=== PATIENT | male | born 1965 | race Caucasian/White ===

== ENCOUNTER 2022-01-25 09:57 | Outpatient (CLI) | payer BC, SELFPAY ==
--- OUTSIDE RECORDS SUMMARY | 2022-01-29 04:09 | XMS_ITS | Encounter Summary ---
:1965 Author Organization [facility] Address [address] [place] [address] Care Team Providers Name Role Phone Norma Solis APRN, C.N.P. Primary Care Provider [phone] Reason for Visit Reason Comments Med Refill Encounter Details Date Type Department Care Team Description 01/21/2022 Refill Department of Family Medicine Caden Solis APRN, Med Refill in [facility] so C.N.P. 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 For: Anxiety To be filled at: [id number] [address] [facility] [place] [address] Called patient [...] MG) BY MOUTH DAILY Pharmacy (include location): [id number] - [place], [place] - [address] [facility] [place] [facility] [address] documented in this encounter Plan of Treatment Upcoming Encounters Date Type Specialty Care Team Description 02/15/2022 Office Visit Orthopedic Surgery Madyson Rosa D.O. [address] [place], [place] [phone] (Wo rk) documented as of this encounter Visit Diagnoses Diagnosis Anxiety documented in this encounter Care Teams Nuclear Physics Professor Relationship Specialty Start Date End Date Norma Solis APRN, C.N.P. PCP - General 09/12/[address] [place] [phone] documented as of this encounter
--- OUTSIDE RECORDS SUMMARY | 2022-01-29 04:09 | XMS_ITS | Encounter Summary ---
:1965 Author Organization [facility] Address [address] [place] [address] Care Team Providers Name Role Phone Norma Kenny APRN C.N.PNikhil Primary Care Provider [phone] Encounter Details Date Type Department Care Team Description 12/05/2021 Clinical Communication Department of Chase Philippe, Medicine in [facility] [place], [place] [address] [place] [phone] Social History Tobacco Use Types Packs/Day Years [...] or relatives? How often do you attend episcopalian or jainism More than 4 time s per year 09/17/2018 services? Do you belong to any clubs or organizations No 09/17/2018 such as episcopalian groups, unions, fraternal or athletic groups, or [...] Date Recorded Male 03/25/2018 1:[address] JUSTICE documented as of this encounter Miscellaneous Notes [...] Surgery Madyson Rosa D.O. [address] [place], [place] [phone] (Wo rk) documented as of this encounter Visit Diagnoses Not on filedocumented in this encounter Care Teams Software Quality Specialist Relationship Specialty Start Date End Date Norma Kenny, STEVEN, C.N.P. PCP - General 09/12/16 [address] [place] [phone] documented as of this encounter
--- OUTSIDE RECORDS SUMMARY | 2022-01-29 04:09 | XMS_ITS | Encounter Summary ---
:1965 Author Organization [facility] Address [address] [place] [address] Care Team Providers Name Role Phone Norma Kenny APRN, C.NNikhilPNikhil Primary Care Provider [phone] Reason for Visit Physical Therapy (Routine) - Authorized Specialty Diagnoses / Procedures Referred By Contact Refer red To Contact Diagnoses Arthroscopy Knee Status [facility] Ongoing treatment [address] [place] [address] Referral ID Status Reason Start Date Expiration Date Visits V isits Requested Authorized [id number] Authorized 11/01/2021 03/30/2022 99 99 Encounter Details Date Type Department Care Team Description 12/18/2021 Clinical Support Department of Physical Ha Shelton M.D. 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 - 12/18/2021 8:30 AM CDT Physical Therapy Outpatient Treatment Note SUBJECTIVE Patient's Name: Saad Murray Referring Provider: Hugo Shelton M.D. Visit Diagnosis: 1. 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 Assessment Clinical [...] Surgery Madyson Rosa, D.ONikhil [address] [place], [place] [phone] (Wo rk) documented as of this encounter Visit Diagnoses Diagnosis Arthroscopy Knee Status Post - Primary documented in this encounter Care Teams Distillation Operator Helper Relationship Specialty Start Date End Date Norma Kenny APRN, C.N.P. PCP - General 09/12/[address] [place] [phone] documented as of this encounter
--- OUTSIDE RECORDS SUMMARY | 2022-01-29 04:09 | XMS_ITS | Encounter Summary ---
:1965 Author Organization [facility] Address [address] [place] [address] Care Team Providers Name Role Phone Norma Kenny APRN, C.NNikhilPNikhil Primary Care Provider [phone] Reason for Visit Physical Therapy (Routine) - Authorized Specialty Diagnoses / Procedures Referred By Contact Refer red To Contact Diagnoses Arthroscopy Knee Status [facility] Ongoing treatment [address] [place] [address] Referral ID Status Reason Start Date Expiration Date Visits V isits Requested Authorized [id number] Authorized 11/01/2021 03/30/2022 99 99 Encounter Details Date Type Department Care Team Description 11/06/2021 Clinical Support Department of Physical Ha Shelton M.D. 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 - 11/06/2021 9:15 AM CDT Physical Therapy Outpatient Treatment Note SUBJECTIVE Patient's Name: Saad Murray Referring Provider: Hugo Shelton M.D. Visit Diagnosis: 1. 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 Assessment Clinical [...] Surgery Madyson Rosa, Jarad.ONikhil [address] [place], [place] [phone] (Wo rk) documented as of this encounter Visit Diagnoses Diagnosis Arthroscopy Knee Status Post - Primary documented in this encounter Additional Health Concerns Assessment Noted Time PHQ-9 Depression Total Score: 4 03/02/2021 10:28 AM CS T documented as of this encounter Care Teams Regulation Supervisor Relationship Specialty Start Date End Date Norma Kenny APRN, C.N.P. PCP - General 09/12/[address] [place] [phone] documented as of this encounter
--- OUTSIDE RECORDS SUMMARY | 2022-01-29 04:09 | XMS_ITS | Encounter Summary ---
:1965 Author Organization [facility] Address [address] [place] [address] Care Team Providers Name Role Phone Norma Kenny APRN, C.NNikhilPNikhil Primary Care Provider [phone] Reason for Visit Physical Therapy (Routine) - Authorized Specialty Diagnoses / Procedures Referred By Contact Refer red To Contact Diagnoses Arthroscopy Knee Status [facility] Ongoing treatment [address] [place] [address] Referral ID Status Reason Start Date Expiration Date Visits V isits Requested Authorized [id number] Authorized 11/01/2021 03/30/2022 99 99 Encounter Details Date Type Department Care Team Description 11/02/2021 Clinical Support Department of Physical Ha Shelton M.D. 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 - 11/02/2021 12:45 PM CDT Physical Therapy Outpatient Treatment Note SUBJECTIVE Patient's Name: Saad Murray Referring Provider: Hugo Shelton M.D. Visit Diagnosis: 1. 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 Assessment Clinical [...] RavinMadyson haq D.ONikhil [address] [place], [place] [phone] (Wo rk) documented as of this encounter Visit Diagnoses Diagnosis Arthroscopy Knee Status Post - Primary documented in this encounter Additional Health Concerns Assessment Noted Time PHQ-9 Depression Total Score: 4 03/02/2021 10:28 AM CS T documented as of this encounter Care Teams Batch And Furnace Operator Relationship Specialty Start Date End Date Norma Kenny APRN, C.N.P. PCP - General 09/12/[address] [place] [phone] documented as of this encounter
--- OUTSIDE RECORDS SUMMARY | 2022-01-29 04:09 | XMS_ITS | Encounter Summary ---
:1965 Author Organization [facility] Address [address] [place] [address] Care Team Providers Name Role Phone Norma Kenny APRN, C.N.P. Primary Care Provider [phone] Encounter Details Date Type Department Care Team Description 10/29/2021 Clinical Communication Department of Bess Randhawa Orthopedic Surgery in D, R.N. 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 - 10/29/2021 9:26 AM CDT FMLA paperwork for the patients daughter, Violeta, filled out and given to the provider to sign. documented in this encounter Plan of Treatment Upcoming Encounters Date Type Specialty Care Team Description 02/15/2022 Office Visit Orthopedic Surgery Madyson Rosa, D.O. [address] [place], [place] [phone] (Wo rk) documented as of this encounter Visit Diagnoses Not on filedocumented in this encounter Additional Health Concerns Assessment Noted Time PHQ-9 Depression Total Score: 4 03/02/2021 10:28 AM CS T documented as of this encounter Care Teams Teachers Assistant Relationship Specialty Start Date End Date Norma Kenny, STEVEN, C.N.P. PCP - General 09/12/[address] [place] [address] documented as of this encounter
--- OUTSIDE RECORDS SUMMARY | 2022-01-29 04:09 | XMS_ITS | Encounter Summary ---
:1965 Author Organization [facility] Address [address] [place] [address] Care Team Providers Name Role Phone Norma Kenny APRN, C.N.P. Primary Care Provider [phone] Reason for Visit Reason Comments Med Refill Encounter Details Date Type Department Care Team Description 11/18/2021 Refill Department of Physical Medicine Melchor Westbrook D.O. Med Refill and Rehabilitation in [place] [address] [place] [address] 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 - 11/23/2021 10:52 AM CDT Meloxicam refill Last refill 10/20/21 Last visit 09/28/21 No follow up scheduled documented in this encounter Plan of Treatment Upcoming Encounters Date Type Specialty Care Team Description 02/15/2022 Office Visit Orthopedic Surgery Madyson Rosa il, D.O. [address] [place], [place] [phone] (Wo rk) documented as of this encounter Visit Diagnoses Not on filedocumented in this encounter Additional Health Concerns Assessment Noted Time PHQ-9 Depression Total Score: 4 03/02/2021 10:28 AM CS T documented as of this encounter Care Teams Event Marketing Coordinator Relationship Specialty Start Date End Date Norma Kenny APRN, C.N.P. PCP - General 09/12/[address] [place] [phone] documented as of this encounter
--- OUTSIDE RECORDS SUMMARY | 2022-01-29 04:09 | XMS_ITS | Encounter Summary ---
:1965 Author Organization [facility] Address [address] [place] [address] Care Team Providers Name Role Phone Norma Kenny APRN, C.N.P. 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 [address] [place] [phone] (Wo rk) documented as of this encounter [...] as of this encounter Care Teams Rn Anesthetist Relationship Specialty Start Date End Date Norma Kenny APRN, C.N.P. PCP - General 09/12/[address] [place] [phone] documented as of this encounter
--- OUTSIDE RECORDS SUMMARY | 2022-01-29 04:09 | XMS_ITS | Encounter Summary ---
:1965 Author Organization [facility] Address [address] [place] [address] Care Team Providers Name Role Phone Norma Kenny APRN, C.N.P. Primary Care Provider [phone] Encounter Details Date Type Department Care Team Description 11/05/2021 Clinical Communication Department of Bess Randhawa Orthopedic Surgery in D, R.N. 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 [address] [place], [place] [phone] (Wo rk) documented as of this encounter Visit Diagnoses Not on filedocumented in this encounter Additional Health Concerns Assessment Noted Time PHQ-9 Depression Total Score: 4 03/02/2021 10:28 AM CS T documented as of this encounter Care Teams Nursery Worker Relationship Specialty Start Date End Date Norma Kenny, STEVEN, C.N.P. PCP - General 09/12/[address] [place] [phone] documented as of this encounter
--- OUTSIDE RECORDS SUMMARY | 2022-01-29 04:09 | XMS_ITS | Encounter Summary ---
:1965 Author Organization [facility] Address [address] [place] [address] Care Team Providers Name Role Phone Norma Kenny APRN, C.NNikhilPNikhil Primary Care Provider [phone] Reason for Visit Physical Therapy (Routine) - Authorized Specialty Diagnoses / Procedures Referred By Contact Refer red To Contact Diagnoses Arthroscopy Knee Status [facility] Ongoing treatment [address] [place] [phone] Referral ID Status Reason Start Date Expiration Date Visits V isits Requested Authorized [id number] Authorized 11/01/2021 03/30/2022 99 99 Encounter Details Date Type Department Care Team Description 11/26/2021 Clinical Support Department of Physical Ha Shelton M.D. [address] [place] [address] Arthroscopy Knee Medicine and Paula Isaacs P, P.TNikhil [address] [place] [phone] Status Post Rehabilitation in [facility] ([place], [place] [address] [place] [phone] Social History Tobacco Use Types Packs/Day Years [...] or relatives? How often do you attend worship or restoration More than 4 time s per year 09/17/2018 services? 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 - 11/26/2021 10:45 AM CDT Physical Therapy Outpatient Treatment Note SUBJECTIVE Patient's Name: Saad Murray Referring Provider: Hugo Shelton M.D. Visit Diagnosis: 1. Arthroscopy Knee Status Post Onset Date: 10/29/21 Payor: [facility] / Plan: [facility] / Product Type: EPO / No [...] was putting out bags on trees for [employer] season and stepped over a large log [...] leg when in stance for knee extension. [employer]: Access Code: [email or web address] Patient reports good HEP compliance. Assessment Clinical [...] Orthopedic Surgery Madyson Rosa, D.ONikhil [address] [place], [place] [phone] (Wo rk) documented as of this encounter Visit Diagnoses Diagnosis Arthroscopy Knee Status Post - Primary documented in this encounter Additional Health Concerns Assessment Noted Time PHQ-9 Depression Total Score: 4 03/02/2021 10:28 AM CHI T documented as of this encounter Care Teams Bariatric Surgeon Relationship Specialty Start Date End Date Norma Kenny, STEVEN, C.N.P. PCP - General 09/12/[address] [place] [phone] documented as of this encounter
--- OUTSIDE RECORDS SUMMARY | 2022-01-29 04:09 | XMS_ITS | Encounter Summary ---
:1965 Author Organization [facility] Address [address] [place] [address] Care Team Providers Name Role Phone Norma Kenny APRN, C.NGregg Primary Care Provider [phone] Reason for Visit Auth/Cert Specialty Diagnoses / Procedures Referred By Contact Refer red To Contact Diagnoses Tear Knee Meniscus Current Subsequent Left Tear Knee Meniscus Current Subsequent Left [S83.207D] Procedures [place] [facility] ARTHROSCOPY KNEE MENISCUS WITH ROOT REPAIR Referral ID Status Reason Start Date Expiration Date Visits Requ ested Visits Authorized [id number] 1 1 Encounter Details Date Type Department Care Team Description 10/29/2021 Surgery [facility] MA[facility] OR Hugo Shelton, ARTHROSCOPY KNEE [address] ID M.D. 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 8-4:00 pm M-F: [phone] [facility]: [phone] [facility]: [phone]: Hours vary: Leave message Physical Therapy: [phone] Billing/Patient Account Services Toll Free: About Your [...] with your health care provider. ?? 2009 [facility] [employer] (MER). All rights reserved. [id number] documented in this encounter Medications at Time [...] Tear Knee Meniscus Current Subsequent Left A chef assistant actively participated and was necessary for [...] 1st 6 weeks. Throughout the case, my perinatal breastfeeding assistant aided with manipulation of the limb, [...] Team Description 02/15/2022 Office Visit [facility] il, D.O. [address] [place] [phone] (Wo rk) documented as of [...] as of this encounter Care Teams Rn Postpartum Relationship Specialty Start Date End Date Norma Kenny, STEVEN, C.N.P. PCP - General 09/12/[address] [place] [address] documented as of this encounter
--- OUTSIDE RECORDS SUMMARY | 2022-01-29 04:09 | XMS_ITS | Encounter Summary ---
:1965 Author Organization [facility] Address [address] [place] [address] Care Team Providers Name Role Phone Norma Kenny APRN, C.N.P. Primary Care Provider [phone] Reason for Referral Physical Therapy (Routine) - Authorized Specialty Diagnoses / Procedures Referred By Contact Refer red To Contact Diagnoses Arthroscopy Knee Status Post Hugo Shelton M.D. [facility] Procedures PT Ongoing treatment [address] [place] [phone] Referral ID Status Reason Start Date Expiration Date Visits V isits Requested Authorized [id number] Authorized 11/01/2021 03/30/2022 99 99 hysical Therapy (Routine) - Pending Review Specialty Diagnoses / Procedures Referred By Contact Refer red To Contact Diagnoses Tear Knee Meniscus Current Subsequent Left Sanaz Mcallister P.A.-C., [facility] Procedures PT Ongoing treatment M.S. [address] [place] [phone] Referral ID Status Reason Start Date Expiration Date Visits V isits Requested Authorized [id number] Pending 10/31/2021 10/31/2022 99 99 Review Reason for Visit Physical Therapy (Routine) - Closed Specialty Diagnoses / Procedures Referred By Contact Refer red To Contact Diagnoses Tear Knee Meniscus Current Subsequent Left Sanaz Mcallister P.A.-C., [facility] Procedures PT Evaluate and treat M.S. [address] [place] [address] Referral ID Status Reason Start Date Expiration Date Visits Requ ested Visits Authorized [id number] Closed 10/29/2021 10/29/2022 1 1 Encounter Details Date Type Department Care Team Description 10/31/2021 Comprehensive Visit Department of Physical Beckm Sanaz donato P.A.-C., M.S. [address] [place] [address] Tear Knee Meniscus Current Subsequent Le ft (Primary Dx); Medicine and Paula Isaacs, P.T. 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 documented as of this encounter Consult Notes [...] s/p meniscal repair Onset Date: 10/29/21 Payor: [employer] [facility] / Plan: [facility] [place] / Product Type: EPO / [...] ROOT REPAIR; Surgeon: Hugo Shelton M.D.; Location: [facility] OR REPAIR OF UMBILICAL HERNIA N/A 04/12/2016 [...] was putting out bags on trees for [employer] seasonand stepped over a large log and [...] Function/Occupational Profile: Prior Mobility/Functional Transfers Level of [place]: Independent Prior Function/Occupational Profile Dominant Hand: Right Lives With: Son Receives Help From: Family ADL Assistance: Independent IADL/Homemaking Assistance: Independent Driving: Independent 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 [address] [place], [place] [phone] (Wo rk) documented as of this encounter Visit Diagnoses Diagnosis Tear Knee Meniscus Current Subsequent Le ft - Primary Arthroscopy Knee Status Post documented in this encounter Additional Health Concerns Assessment Noted Time PHQ-9 Depression Total Score: 4 03/02/2021 10:28 AM CS T documented as of this encounter Care Teams Validation Technician Relationship Specialty Start Date End Date Norma Kenny, STEVEN, C.N.P. PCP - General 09/12/[address] [place] [address] documented as of this encounter
--- OUTSIDE RECORDS SUMMARY | 2022-01-29 04:09 | XMS_ITS | Clinical Summary ---
:1965 Author Organization [facility] Address [address] [place] [address] Care Team Providers Name Role Phone Norma Kenny APRN, C.N.P. Primary Care Provider [phone] Source Comments Patient records contain information from all sites at [facility]. For routine questions regarding patient records, call [phone] during business hours, M-F 8:00 AM - 5:00 PM Central Time. Record requests for emergency care only can be directed to [phone] at any time.[facility] Allergies Active Allergy Reactions Severity Noted Date [...] Added automatically from request for barby chand [id number] Acute Lower Respiratory Infection Due To COVID-19 [...] Added automatically from request for barby chand [id number] Encounters Date Type Specialty Care Team Description 01/21/2022 Refill Family Medicine Norma Kenny, Med Ref ill HELICOPTER OFFICER, C.N.P. 12/18/2021 Clinical Support Physical Medicine Hugo Shelton, Arth roscopy Knee and Rehabilitation M.D. Status Post Paula Isaacs (Primary Dx) P, P.T. 12/07/2021 Office Visit Orthopedic Surgery Ceferino Rosa, Tear Knee D.O. Meniscus Curren t Subsequent Left (Primary Dx) 12/05/2021 Clinical Family Medicine Norma Kenny, Communication HELICOPTER OFFICER, C.N.P. 12/05/2021 Clinical Family Medicine Norma Kenny, Carmeni cation; Communication HELICOPTER OFFICER, C.N.P. medication questions 11/30/2021 Refill Sanaz Mcallister, Med Refill P.A.-C., M.S. 11/26/2021 Nurse Only Urology Norma Kenny, Nurse Iza lerner (Knee HELICOPTER OFFICER, C.N.P. immobilizer Maribel Edwards, and needs to [...] Visit Orthopedic Surgery Chriss Weinberg, Tear Knee M.D. Meniscus Curren t Subsequent Left (Primary Dx) 11/06/2021 Clinical Support Physical Medicine Hugo Shelton, Arth roscopy Knee and Rehabilitation M.D. Status Post Paula Isaacs (Primary Dx) P, P.T. 11/05/2021 Clinical Orthopedic Surgery Bess Randhawa D, R.N. 11/05/2021 Clinical Orthopedic Surgery Bess Randhawa, R.N. 11/02/2021 Clinical Support Physical Medicine Hugo Shelton, Arth roscopy Knee and Rehabilitation M.Dayday Status Post Paula Isaacs (Primary Dx) P, P.T. 10/31/2021 Comprehensive Visit Physical Medicine Sanaz Mcallister, Tear Knee Meniscus Current Subsequent Left (Primary Dx); and Rehabilitation P.A.Milad., M.S. Tear Knee Meniscus Current Subsequent Le ft; Paula Isaacs Arthroscopy Knee Status Post P, P.T. 10/29/2021 Anesthesia Event Andres Light, HELICOPTER OFFICER, E COMMERCE MERCHANT OverRubén lo APRN, E COMMERCE MERCHANT 10/29/2021 Surgery Hugo Shelton, ARTHROSCOPY Flori TAYLOR M.D. MENISCUS WITH ROOT REPAIR 10/29/2021 Ancillary Procedure 10/29/2021 Hospital Encounter Hugo Shelton, Tear Kn ee MShahid Meniscus Curren t Subsequent Left 10/29/2021 Ancillary Procedure 10/29/2021 Clinical Orthopedic Surgery Bess Randhawa D, R.N. 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 [address] [place], [place] [phone] (Wo rk) Health Maintenance [...] this topic Medical Devices Implanted Type Area Congressional Representative Device Shelf Model / Identifier Expiration Serial / Date Lot Implant System, Secondary Fixation With Biocomposite Swivelovk Flori taylor Left: Arthrex [id number] 06/28/2025 [id number] / Implanted: Qty: 1 on 10/29/2021 by Hugo Shelton M.D. at [facility] Implant Knee / [id number] Mesh Or Patch Mesh or Abdomen Patch Description: Mesh from umbilical hernia repair Mar 2016. Procedures Procedure Name Priority Date/Time Associated Comments Diagnosis LDA ANE NON-SURGICAL Routine 10/29/2021 7:41 AM R esults for this AIRWAY CDT procedure are i n the results section. ARTHROSCOPY KNEE 10/29/2021 7:35 AM Tear Knee Meniscus MENISCUS CDT Current Subsequent Left MC ANE NERVE BLOCK WITH Routine 10/29/2021 7:32 AM Results for this ULTRASOUND CDT procedure are i n the results section. IA US GUIDE PLC NDL Routine 10/29/2021 7:32 AM Re sults for this CDT procedure are i n the results section. IA INJ ANES FEM NERVE Routine 10/29/2021 7:32 AM Results for this CDT procedure are i n the results section. ANESTHESIOLOGY IMAGE Routine 10/29/2021 7:25 AM R esults for this EXAM CDT procedure are i n the results section. GENERAL SURGERY IMAGE Routine 10/29/2021 4:25 AM Results for this EXAM CDT procedure are i n the results section. from Last 3 Months Results LDA ANE NON-SURGICAL AIRWAY (10/29/2021 7:41 AM CDT) Narrative Andres Light APRN, CRNA - 03/2021 7:41 AM CDT Andres Light APRN, CRNA ? 10/29/2021 ??7:49 AM Airway Date/Time: 10/29/2021 7:41 AM Performed by: Andres Light APR N, CRNA Authorized by: Andres Light AP RN, E COMMERCE MERCHANT Patient location during procedure: OR / Procedure [...] Airway event: no complications Andres Light APRN, JUNE ANESTHESIA ORDERABLES IA INJ ANES FEM NERVE, IA US GUIDE PLC NDL, MC ANE NERVE BLOCK WITH ULTRASOUND (10/29/2021 7:32 AM CDT) Narrative Andres Light APRN, CRNA - 03/2021 7:32 AM CDT Andres Light APRN, CRNA ? 10/29/2021 ??8:08 AM Regional Block Date/Time: 10/29/2021 7:32 AM Performed by: Andres Light APR N, CRNA Authorized by: Andres Light AP RN, E COMMERCE MERCHANT Location: Pre Op / PACU PROCEDURE DETAILS: [...] sful procedure Other complications: none Andres Light HELICOPTER OFFICER, JUNE PROCEDURE/MINOR SURGIC AL ORDERABLES Non-Radiology Image-Anesthesiology Image [...] Code Phon e Number IIMS IIMS NA General Surgery Image Exam-General Surgery Image [...] Code Phon e Number IIMS IIMS NA from Last 3 Months Insurance Payer Benefit Plan / Subscriber ID Effective Dates Phone Addre ss Type Group BLUE CROSS BCBS PLIAR BLUE [id number] 2019-Prese [phone] [address] [address] EPO [place] [id number] [phone] [address] (Home) [place] [address] Advance Directives For more information, please contact: [phone] Latest Code Status on File Code Status Date Activated Date Inactivated Comments Full Code 10/29/2021 9:36 AM 10/29/2021 1:07 PM Question Answer Comments Full Code: Discussed Code Status History Code Status Date Activated Date Inactivated Comments Full Code 02/05/2021 3:31 PM 02/07/2021 1:42 PM Question Answer Comments Full Code: Discussed Care Teams Computational Biologist Relationship Specialty Start Date End Date Norma Kenny, STEVEN, C.N.P. PCP - General 09/12/[address] [place] [phone]
--- OUTSIDE RECORDS SUMMARY | 2022-01-29 04:09 | XMS_ITS | Encounter Summary ---
:1965 Author Organization [facility] Address [address] [place] [address] Care Team Providers Name Role Phone Norma Kenny APRN, C.N.P. Primary Care Provider [phone] Reason for Visit Reason Comments Nurse Visit Knee immobilizer broke and n eeds to be fitted for a new immobilizer Encounter Details Date Type Department Care Team Description 11/26/2021 Nurse Only Department of Urology Chase Kenny APRN, C.N.P. [address] [place] [address] Nurse Visit (Knee in [place] R, R.N. 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 - 11/26/2021 11:15 AM CDT Received call from Paula Zamudio PT at [facility] asking if we could fit pt [...] when it only last [address] [facility] notified. Pt states the immobilizer feels comfortable and stable. Pt discharged to home. Pt will follow up with Dr. Rosa as scheduled on 12/07/21. documented in this encounter Plan of Treatment Upcoming Encounters Date Type Specialty Care Team Description 02/15/2022 Office Visit Orthopedic Surgery Madyson Rosa D.O. [address] [place], [place] [phone] (Wo rk) documented as of this encounter Visit Diagnoses Not on filedocumented in this encounter Additional Health Concerns Assessment Noted Time PHQ-9 Depression Total Score: 4 03/02/2021 10:28 AM CS T documented as of this encounter Care Teams Parts Washer Relationship Specialty Start Date End Date Norma Kenny APRN, C.N.P. PCP - General 09/12/[address] [place] [phone] documented as of this encounter
--- OUTSIDE RECORDS SUMMARY | 2022-01-29 04:09 | XMS_ITS | Encounter Summary ---
:1965 Author Organization [facility] Address [address] [place] [address] Care Team Providers Name Role Phone Norma Kenny APRN, C.N.P. Primary Care Provider [phone] Encounter Details Date Type Department Care Team Description 11/05/2021 Clinical Communication Department of Bess Randhawa Orthopedic Surgery in D, R.N. 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 - 11/05/2021 11:31 AM CDT [place] paperwork for the patients daughter, Violeta, filled out and signed by the provider. Scanned intochart. Faxed to [facility] at [phone]. Copy emailed to Violeta at . documented in this encounter Plan of Treatment Upcoming Encounters Date Type Specialty Care Team Description 02/15/2022 Office Visit Orthopedic Surgery Madyson Rosa, D.ONikhil [address] [place], [place] [phone] (Wo rk) documented as of this encounter Visit Diagnoses Not on filedocumented in this encounter Additional Health Concerns Assessment Noted Time PHQ-9 Depression Total Score: 4 03/02/2021 10:28 AM CS T documented as of this encounter Care Teams Ball Warper Tender Relationship Specialty Start Date End Date Norma Kenny APRN, C.N.P. PCP - General 09/12/[address] [place] [phone] documented as of this encounter
--- OUTSIDE RECORDS SUMMARY | 2022-01-29 04:09 | XMS_ITS | Encounter Summary ---
:1965 Author Organization [facility] Address [address] [place] [address] Care Team Providers Name Role Phone Norma Kenny APRN, C.N.P. 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 [address] [place], [place] [phone] (Wo rk) documented as of this encounter [...] documented as of this encounter Care Teams Department Director Relationship Specialty Start Date End Date Norma Kenny APRN, C.N.P. PCP - General 09/12/[address] [place] [phone] documented as of this encounter
--- OUTSIDE RECORDS SUMMARY | 2022-01-29 04:09 | XMS_ITS | Encounter Summary ---
:1965 Author Organization [facility] Address [address] [place] [address] Care Team Providers Name Role Phone Norma Kenny APRN C.N.P. Primary Care Provider [phone] Reason for Visit Reason Comments Communication medication questions Encounter Details Date Type Department Care Team Description 12/05/2021 Clinical Communication Department of Norma Kenny Co mmunication; Family Medicine in STEVEN Salas, medicatio n Erik Booth, C.N.P. 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 PCP - General 09/12/[address] [place] [phone] documented as of this encounter
--- OUTSIDE RECORDS SUMMARY | 2022-01-29 04:09 | XMS_ITS | Encounter Summary ---
:1965 Author Organization [facility] Address [address] [place] [address] Care Team Providers Name Role Phone Norma Kenny APRN C.NNikhilPNikhil Primary Care Provider [phone] Reason for Visit Reason Comments Med Refill Encounter Details Date Type Department Care Team Description 11/30/2021 Refill [facility] OR Sanaz Mcallister, KemARandi, Med Refill [address] [place] [address] [facility] [phone] [place], [place] [phone] (Wo rk) Social History [...] or relatives? How often do you attend presybeterian or samaritan More than 4 time s per year 09/17/2018 services? 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 PCP - General 09/12/[address] [place] [address] documented as of this encounter
--- OUTSIDE RECORDS SUMMARY | 2022-01-29 04:09 | XMS_ITS | Encounter Summary ---
:1965 Author Organization [facility] Address [address] [place] [address] Care Team Providers Name Role Phone Norma Kenny APRN, C.N.P. Primary Care Provider [phone] Reason for Visit Reason Comments Post-op Follow-up Encounter Details Date Type Department Care Team Description 12/07/2021 Office Visit Department of Ceferino Rosa, Tear Knee Meniscus Orthopedic Surgery in [place]. 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 [address] [place], [place] [phone] (Wo rk) documented as of this encounter Visit Diagnoses Diagnosis Tear Knee Meniscus Current Subsequent Le ft - Primary documented in this encounter Care Teams Magnetic Resonance Imaging Coordinator Relationship Specialty Start Date End Date Norma Kenny APRN, C.N.P. PCP - General 09/12/[address] [place] [phone] documented as of this encounter
--- OUTSIDE RECORDS SUMMARY | 2022-01-29 04:09 | XMS_ITS | Encounter Summary ---
:1965 Author Organization [facility] Address [address] [place] [address] Care Team Providers Name Role Phone Norma Kenny APRN, C.N.P. Primary Care Provider [phone] Reason for Visit Reason Comments Post-op Knee artgroscopy meniscus wi th root repair Follow-up Knee artgroscopy meniscus wi th root repair Encounter Details Date Type Department Care Team Description 11/12/2021 Office Visit Department of Chriss Weinberg, Tear Knee Meniscus Orthopedic Surgery in M.D. 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 PCP - General 09/12/[address] [place] [phone] documented as of this encounter
--- OUTSIDE RECORDS SUMMARY | 2022-01-29 04:09 | XMS_ITS | Encounter Summary ---
:1965 Author Organization [facility] Address [address] [place] [address] Care Team Providers Name Role Phone Norma Kenny APRN, C.NNikhilPNikhil Primary Care Provider Reason for Visit Physical Therapy (Routine) - Authorized Specialty Diagnoses / Procedures Referred By Contact Refer red To Contact Diagnoses Arthroscopy Knee Status Post Hugo Shelton [facility] Procedures PT Ongoing treatment [address] [place] [address] Referral ID Status Reason Start Date Expiration Date Visits V isits Requested Authorized [id number] Authorized 11/01/2021 03/30/2022 99 99 Encounter Details Date Type Department Care Team Description 11/13/2021 Clinical Support Department of Physical Ha Shelton M.D. 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 - 11/13/2021 10:00 AM CDT Physical Therapy Outpatient Treatment Note SUBJECTIVE Patient's Name: Saad Murray Referring Provider: Hugo Shelton M.D. Visit Diagnosis: 1. 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 Broadersheet: Access Code: [email or web address] Patient reports good HEP compliance. Assessment Clinical [...] Surgery Madyson Rosa, D.ONikhil [address] [place], [place] [phone] (Wo rk) documented as of this encounter Visit Diagnoses Diagnosis Arthroscopy Knee Status Post - Primary documented in this encounter Additional Health Concerns Assessment Noted Time PHQ-9 Depression Total Score: 4 03/02/2021 10:28 AM CS T documented as of this encounter Care Teams Plant Safety Engineer Relationship Specialty Start Date End Date Norma Kenny, STEVEN, C.N.P. PCP - General 09/12/[address] [place] [address] documented as of this encounter
--- OUTSIDE RECORDS SUMMARY | 2022-01-29 04:10 | XMS_ITS | Encounter Summary ---
:1965 Author Organization [facility] Address [address] [place] [address] Care Team Providers Name Role Phone Norma Kenny APRN C.NNikhilPNikhil Primary Care Provider [phone] Reason for Visit Auth/Cert Specialty Diagnoses / Procedures Referred By Contact Refer red To Contact Diagnoses Tear Knee Meniscus Current Subsequent Left Tear Knee Meniscus Current Subsequent Left [S83.207D] Procedures DC [facility]/LAT ARTHROSCOPY KNEE MENISCUS WITH ROOT REPAIR Referral ID Status Reason Start Date Expiration Date Visits Requ ested Visits Authorized [id number] 1 1 Encounter Details Date Type Department Care Team Description 10/29/2021 Anesthesia Event [facility] OR Andres Light APRN, JUNE [address] [place] [address] [place] Rubén Mosley APRN, SEAM STAYER [address] [place] [address] [place] [address] Anesthesia Record Procedure Summary Procedure Name Responsible Anesthesia Start Anesthesia Stop Anesthesiologist Time Time ARTHROSCOPY KNEE Andres Light, 10/29/21 0736 10/29/21 0926 MENISCUS WITH ROOT CUT FILERJUNE Weston REPAIR (Left: Knee) Events Date Time [...] to the receiving staff during [facility] we 1. Identified the patient 2. 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 Pertinent components [...] with patient /legal guardian or through an diplomatic interpreter/translator. The use of blood products not discussed Approval to Proceed: approved for anesthesia documented in this encounter Plan of Treatment Upcoming Encounters Date Type Specialty Care Team Description 02/15/2022 Office Visit Orthopedic Surgery Ol[place], Ne saumya, D.O. [address] [place], [place] [phone] (Wo rk) documented as of this encounter Procedures Procedure Name Priority Date/Time Associated Comments Diagnosis LDA ANE NON-SURGICAL Routine 10/29/2021 7:41 AM R esults for this AIRWAY CDT procedure are i n the results section. MC ANE NERVE BLOCK Routine 10/29/2021 7:32 AM Res ults for this WITH ULTRASOUND CDT procedure ar e in the results section. DC US GUIDE PLC NDL Routine 10/29/2021 7:32 AM Re sults for this CDT procedure are i n the results section. DC INJ ANES FEM Routine 10/29/2021 7:32 AM [...] CRNA Authorized by: Andres Light AP RN, SEAM STAYER Patient location during procedure: OR / Procedure [...] complications Andres Light APRN, CRNA ANESTHESIA ORDERABLES DC INJ ANES FEM NERVE, DC US GUIDE PLC NDL, MC ANE NERVE BLOCK WITH ULTRASOUND (10/29/2021 7:32 AM CDT) Narrative Andres Light APRN, CRNA - 03/2021 7:32 AM CDT Andres Light APRN, CRNA ? 10/29/2021 ??8:08 AM Regional Block Date/Time: 10/29/2021 7:32 AM Performed by: Andres Light APR N, CRNA Authorized by: Andres Light AP RN, SEAM STAYER Location: Pre Op / PACU PROCEDURE DETAILS: [...] procedure Other complications: none Andres Light APRN, SEAM STAYER PROCEDURE/MINOR SURGIC AL ORDERABLES documented in this [...] documented as of this encounter Care Teams Lottery Office Manager Relationship Specialty Start Date End Date Norma Kenny, STEVEN, C.N.P. PCP - General 09/12/[address] [facility] [place] [place] [address] documented as of this encounter
--- OUTSIDE RECORDS SUMMARY | 2022-01-29 04:10 | XMS_ITS | Encounter Summary ---
:1965 Author Organization [facility] Address [address] [place] [address] Care Team Providers Name Role Phone Norma Kenny APRN, C.N.P. Primary Care Provider [phone] Reason for Referral Outpatient (Routine) - Closed Specialty Diagnoses / Referred By Contact Referred To Contact Procedures Melchor Mccabe [facility] D.ONikhil [address] [place] [address] Referral ID Status Reason Start Date Expiration Date Visits Requ ested Visits Authorized [id number] Closed 08/17/2021 08/17/2022 1 1 Reason for Visit Reason Comments Follow-up Outpatient (Routine) - Closed Specialty Diagnoses / Referred By Contact Referred To Contact Procedures Melchor Mccabe [facility] D.ONikhil [address] [place] [phone] Referral ID Status Reason Start Date Expiration Date Visits Requ ested Visits Authorized [id number] Closed 07/13/2021 07/13/2022 1 1 Encounter Details Date Type Department Care Team Description 08/17/2021 Office Visit Department of Physical Melchor Westbrook Pain Knee Left (Primary Dx); Medicine and O, D.O. Tear Knee Meniscus Current Subsequent Le ft; Rehabilitation in [address] Sacroiliac; [place], [place] Gluteal Tendinitis Left Hip; [address] [place] [address] [place] [address] [...] or relatives? How often do you attend nondenominational or mosque More than 4 time s per year 09/17/2018 services? 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 IMAGING: MRI [...] offer some reassurance. I also refilled hismedial batch unloader brace which was not properly positioned, and [...] Surgery Madyson Rosa D.O. [address] [place], [place] [address] (Wo rk) Scheduled Referrals Name Type Priority [...] documented as of this encounter Care Teams Stacker Driver Relationship Specialty Start Date End Date Norma Kenny, STEVEN, C.N.P. PCP - General 09/12/[address] [place] [address] documented as of this encounter
--- OUTSIDE RECORDS SUMMARY | 2022-01-29 04:10 | XMS_ITS | Encounter Summary ---
:1965 Author Organization [facility] Address [address] [place] [address] Care Team Providers Name Role Phone Norma Kenny APRN, C.NNikhilPNikhil Primary Care Provider [phone] Reason for Referral MRI/CAT/PET Scan (Routine) - Closed Specialty Diagnoses / Procedures Referred By Contact Refer red To Contact Radiology Diagnoses Pain Knee Left Effusion Knee Left Melchor West[facility] Region Procedures MR Knee Left without IV Contrast [place] MRI LWR EXT JOINT WO CNTRST [address] [place] [address] Referral ID Status Reason Start Date Expiration Date Visits Requ ested Visits Authorized [id number] Closed 07/13/2021 07/13/2022 1 1 Reason for Visit MRI/CAT/PET Scan (Routine) - Closed Specialty Diagnoses / Procedures Referred By Contact Refer red To Contact Radiology Diagnoses Pain Knee Left Effusion Knee Left Melchor Westbrook [facility] Region Procedures MR Knee Left without IV Contrast [place] MRI LWR EXT JOINT WO CNTRST [address] [place] [address] Referral ID Status Reason Start Date Expiration Date Visits Requ ested Visits Authorized [id number] Closed 07/13/2021 07/13/2022 1 1 Encounter Details Date Type Department Care Team Description 07/26/2021 Hospital Encounter Department of Pietro, Melchor Pain Kn ee Left; Radiology in [place], D.O. 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 PCP - General 09/12/[address] [place] [address] documented as of this encounter
--- OUTSIDE RECORDS SUMMARY | 2022-01-29 04:10 | XMS_ITS | Encounter Summary ---
:1965 Author Organization [facility] Address [address] [place] [address] Care Team Providers Name Role Phone Norma Kenny APRN, C.N.P. Primary Care Provider [phone] Reason for Visit Reason Comments Med Refill Encounter Details Date Type Department Care Team Description 10/05/2021 Refill Department of Family Medicine Davon Eng M.D. 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 [facility] 06/29/21 Office Visit Norma Kenny APRN C.N.PNikhil [facility] 05/01/21 Office Visit Norma Kenny APRN C.N.PNikhil [facility] 04/03/21 Office Visit Norma Kenny APRN, C.N.PNikhil [facility] 03/02/21 Office Visit Norma Kenny APRN, C.N.PNikhil [facility] 01/25/21 Office Visit Efe Boyle D.O. [facility] Showing recent visits within past 365 [...] Orthopedic Surgery Madyson Rosa D.O. [address] [place], [place] [phone] (Wo rk) documented as of this encounter Visit Diagnoses Diagnosis Palpitations documented in this encounter Additional Health Concerns Assessment Noted Time PHQ-9 Depression Total Score: 4 03/02/2021 10:28 AM CS T documented as of this encounter Care Teams Program Host Relationship Specialty Start Date End Date Norma Kenny APRN, C.N.P. PCP - General 09/12/[address] [place] [address] documented as of this encounter
--- OUTSIDE RECORDS SUMMARY | 2022-01-29 04:10 | XMS_ITS | Encounter Summary ---
:1965 Author Organization [facility] Address [address] [place] [address] Care Team Providers Name Role Phone Norma Kenny APRN, C.N.P. Primary Care Provider [phone] Reason for Visit Reason Comments Med Refill Encounter Details Date Type Department Care Team Description 07/21/2021 Refill [facility], Rio Canchola M.D. 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 PCP - General 09/12/[address] [place] [address] documented as of this encounter
--- OUTSIDE RECORDS SUMMARY | 2022-01-29 04:10 | XMS_ITS | Encounter Summary ---
:1965 Author Organization [facility] Address [address] [place] [address] Care Team Providers Name Role Phone Norma Kenny APRN, C.N.P. Primary Care Provider [phone] Reason for Referral Outpatient (Routine) - Closed Specialty Diagnoses / Procedures Referred By Contact Refer red To Contact Diagnoses Pain Knee Left Hugo Shelton M.D. [facility] Region Procedures DX Knee Left 4+ Views [address] [place] [phone] Referral ID Status Reason Start Date Expiration Date Visits Requ ested Visits Authorized [id number] Closed 10/22/2021 10/22/2022 1 1 Reason for Visit Outpatient (Routine) - Closed Specialty Diagnoses / Procedures Referred By Contact Refer red To Contact Diagnoses Pain Knee Left Hugo Shelton M.D. [facility] Region Procedures DX Knee Left 4+ Views [address] [place] [phone] Referral ID Status Reason Start Date Expiration Date Visits Requ ested Visits Authorized [id number] Closed 10/22/2021 10/22/2022 1 1 Encounter Details Date Type Department Care Team Description 10/22/2021 Hospital Encounter Department of Hugo Shelton Pain K nee Left Radiology, [facility], in [place] [phone] [place], [place] [address] [place] [address] [place], [place] [phone] [address] (Work) [phone] Social History Tobacco Use Types Packs/Day Years [...] How often do you attend lutheran or pentecostal More than 4 time s [...] at Date Recorded 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 [address] [place], [place] [phone] (Wo rk) documented as [...] documented as of this encounter Care Teams Home Health Billing Specialist Relationship Specialty Start Date End Date Norma Kenny, STEVEN, C.N.P. PCP - General 09/12/[address] [place] [phone] documented as of this encounter
--- OUTSIDE RECORDS SUMMARY | 2022-01-29 04:10 | XMS_ITS | Encounter Summary ---
:1965 Author Organization [facility] Address [address] [place] [address] Care Team Providers Name Role Phone Norma Kenny APRN C.N.P. Primary Care Provider [phone] Reason for Visit Reason Comments Results Encounter Details Date Type Department Care Team Description 08/01/2021 Clinical Communication Department of Chase Philippe, Results Medicine in [facility] EXHAUST EMISSIONS INSPECTOR C.N.PNikhil [place], [place] [address] [place] [phone] [phone] Social History Tobacco Use Types Packs/Day Years [...] or relatives? How often do you attend pentecostal or temple More than 4 time s per year 09/17/2018 services? 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 Shelton while he is in [place] and contactthe patient to let him know [...] Orthopedic Surgery Madyson Rosa, D.ONikhil [address] [place], [place] [phone] (Wo rk) documented as of this encounter Visit Diagnoses Not on filedocumented in this encounter Additional Health Concerns Assessment Noted Time PHQ-9 Depression Total Score: 4 03/02/2021 10:28 AM CS T documented as of this encounter Care Teams Sign Shop Supervisor Relationship Specialty Start Date End Date Norma Kenny APRN, C.N.P. PCP - General 09/12/[address] [place] [phone] documented as of this encounter
--- OUTSIDE RECORDS SUMMARY | 2022-01-29 04:10 | XMS_ITS | Encounter Summary ---
:1965 Author Organization [facility] Address [address] [place] [address] Care Team Providers Name Role Phone Norma Kenny APRN, C.N.P. Primary Care Provider [phone] Reason for Visit Reason Comments Med Refill Encounter Details Date Type Department Care Team Description 10/22/2021 Refill Department of Family Medicine Caden Kenny APRN, Med Refill in [facility] so C.N.P. 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 [facility] 06/29/21 Office Visit Norma Kenny APRN, C.N.P. [facility] 05/01/21 Office Visit Norma Kenny APRN, C.N.P. [facility] 04/03/21 Office Visit Norma Kenny APRN, C.N.P. [facility] 03/02/21 Office Visit Norma Kenny APRN, C.N.P. [facility] 01/25/21 Office Visit Efe Boyle D.O. [facility] Showing recent visits within past 365 days with a meds authorizing provider and meeting all other requirements Future Appointments Date Type Provider Dept 10/26/21 Appointment Norma Kenny APRN, C.N.P. [facility] Showing future appointments within next 90 days with a meds authorizing provider and meeting all other requirements documented in this encounter Plan of Treatment Upcoming Encounters Date Type Specialty Care Team Description 02/15/2022 Office Visit Orthopedic Surgery Madyson Rosa D.ONikhil [address] [place] [phone] (Wo rk) documented as of this encounter Visit Diagnoses Diagnosis Anxiety documented in this encounter Additional Health Concerns Assessment Noted Time PHQ-9 Depression Total Score: 4 03/02/2021 10:28 AM CS T documented as of this encounter Care Teams Microfilm Operator Relationship Specialty Start Date End Date Norma Kenny APRN, C.N.P. PCP - General 09/12/[address] [place] [phone] documented as of this encounter
--- OUTSIDE RECORDS SUMMARY | 2022-01-29 04:10 | XMS_ITS | Encounter Summary ---
:1965 Author Organization [facility] Address [address] [place] [address] Care Team Providers Name Role Phone Norma Kenny APRN, C.NNikhilPNikhil Primary Care Provider [phone] Reason for Referral MRI/CAT/PET Scan (Routine) - Closed Specialty Diagnoses / Procedures Referred By Contact Refer red To Contact Radiology Diagnoses Pain Knee Left Effusion Knee Left [facility] Westbrook [facility] Procedures MR Knee Left without IV Contrast MT MRI LWR EXT JOINT WO CNTRST [address] [place] [address] Referral ID Status Reason Start Date Expiration Date Visits Requ ested Visits Authorized [id number] Closed 07/13/2021 07/13/2022 1 1 Outpatient (Routine) - Closed Specialty Diagnoses / Referred By Contact Referred To Contact Procedures Physical Medicine and Melchor Westbrook [facility] D.O. [address] [place] [address] Referral ID Status Reason Start Date Expiration Date Visits Requ ested Visits Authorized [id number] Closed 07/13/2021 07/13/2022 1 1 Scheduling Instructions 1 month after SI injection Outpatient (Routine) - Closed Specialty Diagnoses / Procedures Referred By Contact Refer red To Contact Diagnoses Pain Low Back Chronic Melchor Westbrook D.O. [facility] Region Procedures FL Sacroiliac Joint Injection Bilateral MT INJ SI JT W THANG W ARTHROGRPHY [address] [place] [address] Referral ID Status Reason Start Date Expiration Date Visits Requ ested Visits Authorized [id number] Closed 07/13/2021 07/13/2022 1 1 Outpatient (Routine) - Closed Specialty Diagnoses / Procedures Referred By Contact Refer red To Contact Diagnoses Pain Knee Left Effusion Knee Left Melchor Westbrook D.O. [facility] Region Procedures DX Knee Left 4+ Views [address] [place] [address] Referral ID Status Reason Start Date Expiration Date Visits Requ ested Visits Authorized [id number] Closed 07/13/2021 07/13/2022 1 1 Reason for Visit Reason Comments Follow-up Continues to have right hip pain Outpatient (Routine) - Closed Specialty Diagnoses / Referred By Contact Referred To Contact Procedures Physical Medicine and Melchor Westbrook [facility] D.O. [address] [place] [phone] Referral ID Status Reason Start Date Expiration Date Visits Requ ested Visits Authorized [id number] Closed 05/09/2021 05/09/2022 1 1 Encounter Details Date Type Department Care Team Description 07/13/2021 Office Visit Department of Physical Melchor Westbrook Pain Sacroiliac (Primary Dx); Medicine and OJoanna Pain Low Back Chronic; Rehabilitation in [place] [phone] [facility] Pain Knee Left; [place], [place] Effusion Knee Left; [address] [place] [phone] Gluteal Tendinitis Left Hip; [place] [address] Gluteal Tendinitis Right Hip Social History Tobacco [...] How often do you attend alevism or mormonism More than 4 time s [...] Date Recorded 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 [address] [place] [phone] (Wo rk) Scheduled Referrals Name [...] documented as of this encounter Care Teams Bakery Decorator Relationship Specialty Start Date End Date Norma Kenny APRN, C.N.P. PCP - General 09/12/[address] [place] [phone] documented as of this encounter
--- OUTSIDE RECORDS SUMMARY | 2022-01-29 04:10 | XMS_ITS | Encounter Summary ---
:1965 Author Organization [facility] Address [address] [place] [address] Care Team Providers Name Role Phone Norma Kenny APRN, C.N.P. Primary Care Provider [phone] Reason for Visit Reason Comments Knee Pain Left Outpatient (Routine) - Closed Specialty Diagnoses / Referred By Contact Referred To Contact Procedures [facility] [address] [place] [phone] Referral ID Status Reason Start Date Expiration Date Visits Requ ested Visits Authorized [id number] Closed 08/17/2021 08/17/2022 1 1 Encounter Details Date Type Department Care Team Description 09/28/2021 Office Visit Department of Physical Melchor Westbrook Tear Knee Meniscus Current Subsequent Left (Primary Dx); Medicine and O, D.O. 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 MSK: Fish And Wildlife Biologist brace in place, able to fully flex [...] Surgery Madyson Rosa D.O. [address] [place], [place] [phone] (Wo rk) documented as of this encounter Visit Diagnoses Diagnosis Tear Knee Meniscus Current Subsequent Le ft - Primary Hyperlipidemia Pain Knee Left documented in this encounter Additional Health Concerns Assessment Noted Time PHQ-9 Depression Total Score: 4 03/02/2021 10:28 AM CS T documented as of this encounter Care Teams Child Nurse Relationship Specialty Start Date End Date Norma Kenny APRN, C.N.P. PCP - General 09/12/[address] [place] [address] documented as of this encounter
--- OUTSIDE RECORDS SUMMARY | 2022-01-29 04:10 | XMS_ITS | Encounter Summary ---
:1965 Author Organization [facility] Address [address] [place] [address] Care Team Providers Name Role Phone Norma Kenny APRN, C.N.P. Primary Care Provider [phone] Reason for Referral Outpatient (Routine) - Closed Specialty Diagnoses / Procedures Referred By Contact Refer red To Contact Diagnoses Pain Knee Left Hugo Shelton M.D. [facility] Procedures DX Knee Left 4+ Views [address] [place] [address] Referral ID Status Reason Start Date Expiration Date Visits Requ ested Visits Authorized [id number] Closed 10/22/2021 10/22/2022 1 1 hysical Therapy (Routine) - Authorized Specialty Diagnoses / Procedures Referred By Contact Refer red To Contact Diagnoses Tear Knee Meniscus Current Subsequent Left Hugo Shelton M.D. [facility] Procedures PT Evaluate and treat [address] [place] [address] Referral ID Status Reason Start Date Expiration Date Visits V isits Requested Authorized [id number] Authorized 10/22/2021 10/22/2022 12 12 Reason for [...] Pain Knee Left Efraín Norma Josue, [facility] TV PRODUCTION ASSISTANT, C.N.P. [address] [place] [address] Referral ID Status Reason Start Date Expiration Date Visits Requ ested Visits Authorized [id number] Closed 07/17/2021 07/17/2022 1 1 Encounter Details Date Type Department Care Team Description 10/22/2021 Office Visit Department of Hugo Shelton, Tear Knee Me niscus Current Subsequent Left (Primary Dx); Orthopedic Surgery in M.D. 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 documented in this encounter Plan of Treatment Upcoming Encounters Date Type Specialty Care Team Description 02/15/2022 Office Visit Orthopedic Surgery [facility] saumya, D.ONikhil [address] [place] [phone] (Wo rk) documented as of [...] documented as of this encounter Care Teams Chief Science Officer Relationship Specialty Start Date End Date Norma Kenny, STEVEN, C.N.P. PCP - General 09/12/[address] [place] [phone] documented as of this encounter
--- OUTSIDE RECORDS SUMMARY | 2022-01-29 04:10 | XMS_ITS | Encounter Summary ---
:1965 Author Organization [facility] Address [address] [place] [address] Care Team Providers Name Role Phone Norma Kenny APRN C.N.P. Primary Care Provider [phone] Reason for Referral Outpatient (Routine) - Authorized Specialty Diagnoses / Procedures Referred By Contact Refer red To Contact Diagnoses Preoperative Exam Norma Kenny APRN, [facility] Region Procedures ECG 12 Lead C.N.P. [address] [place] [address] Referral ID Status Reason Start Date Expiration Date Visits V isits Requested Authorized [id number] Authorized 10/26/2021 10/26/2022 1 1 Reason for Visit Reason Comments Pre-op Exam Encounter Details Date Type Department Care Team Description 10/26/2021 Office Visit Department of Norma Philippe Preop erative Exam (Primary Dx); Medicine in [facility] STEVEN Salas, C.N.P. 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 Shelton at [facility]. 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 Has no pets. Plans to move into [employer] this year after renovation and sell current [...] Team Description 02/15/2022 Office Visit Orthopedic Surgery RavinyamzinMadyson clayton, DaydayO. [address] [place], [place] [phone] (Wo rk) documented as [...] RNA, V Asymptomatic (10/26/2021 12:09 PM CDT) [facility] Method Time Signature SARS-CoV-2 Swab, 10/26/2021 MKTO [...] pe rformed using the Aptima SARS-CoV-2 assay ([employer] on the [employer] tem under emergency use authorization (EUA) by the U.S. Food and Drug Administ ration. Fact sheets for this EUA assay can be fo und at the following links: For Healthcare Providers: https://www.fd a.gov/media/292425/download For Patients: https://www.BoxTone.gov/media/ 386529/download Specimen Anatomical Collection Method Collection Time Receive d Time (Source) Location / / Volume Laterality Varies 10/26/2021 12:09 10/26/2021 5:10 (Nasopharynx) PM CDT PM CDT Hugo Shelton M.D. LAB MICROBIOLOGY - GENERAL O RDERABLES Performing Organization Address City/State/ZIP Code Phon e Number [facility]- [address] [place] [address] [place] [address] System in [place] [address] [place] [address] (ABNORMAL) Comprehensive Metabolic Panel (10/26/2021 12:09 PM [...] CDT eGFR-Black/Afri >90 >=60 10/26/2021 NPRG can Hong Konger mL/min/BSA 2:37 PM CDT Comment: ----ADDITIONAL INFORMATION---- [...] Organization Address City/State/ZIP Code Phon e Number [facility]- [address] [place] [address] [place] [address] [place] [address] [address] [facility] (ABNORMAL) CBC with Differential, Blood (10/26/2021 12:09 PM CDT) [facility] Method Time Signature Hemoglobin 12.7 (L) 13.2 [...] Organization Address City/State/ZIP Code Phon e Number [facility]- [address] [place], [place] [address] [place] [address] [place] [address] [facility] [address] [place] ECG 12 Lead (10/26/2021 12:01 PM CDT) P athologist Signature Ventricular Rate 101 BPM MUSE ECG/Min IA Interval 170 ms MUSE QRSD Interval 86 ms MUSE QT Interval 344 ms MUSE QTC Interval 446 ms MUSE P [place] 66 degrees MUSE R [place] -1 degrees MUSE T Wave [place] 8 degrees MUSE Specimen Anatomical Collection Method [...] Address City/State/ZIP Code Phon e Number [facility] NA documented in this encounter Visit Diagnoses [...] as of this encounter Care Teams Plant Operator Relationship Specialty Start Date End Date Norma Kenny APRN, C.N.P. PCP - General 09/12/[address] [place] [phone] documented as of this encounter
--- OUTSIDE RECORDS SUMMARY | 2022-01-29 04:10 | XMS_ITS | Encounter Summary ---
:1965 Author Organization [facility] Address [address] [place] [address] Care Team Providers Name Role Phone Norma Kenny APRN, C.N.P. Primary Care Provider [phone] Reason for Referral Outpatient (Routine) - Closed Specialty Diagnoses / Procedures Referred By Contact Refer red To Contact Diagnoses Pain Low Back Chronic Melchor Westbrook D.O. [facility] Region Procedures FL Sacroiliac Joint Injection Bilateral [place] INJ SI JT W THANG W ARTHROGRPHY [address] [place] [address] Referral ID Status Reason Start Date Expiration Date Visits Requ ested Visits Authorized [id number] Closed 07/13/2021 07/13/2022 1 1 Reason for Visit Outpatient (Routine) - Closed Specialty Diagnoses / Procedures Referred By Contact Refer red To Contact Diagnoses Pain Low Back Chronic Melchor Westbrook D.O. [facility] Region Procedures FL Sacroiliac Joint Injection Bilateral [place] INJ SI JT W THANG W ARTHROGRPHY [address] [place] [address] Referral ID Status Reason Start Date Expiration Date Visits Requ ested Visits Authorized [id number] Closed 07/13/2021 07/13/2022 1 1 Encounter Details Date Type Department Care Team Description 07/30/2021 Hospital Encounter Department of Melchor Westbrook D.O. [address] [place] [phone] Pain Low Back Radiology, [place] Karina Griffin D.O. [address] [place] [phone] [facility], in [place], [place] [address] [place] [phone] Social History Tobacco Use Types Packs/Day Years [...] or relatives? How often do you attend scientologist or yazidi More than 4 time s per year 09/17/2018 services? 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 PCP - General 09/12/[address] [place] [phone] documented as of this encounter
--- OUTSIDE RECORDS SUMMARY | 2022-01-29 04:10 | XMS_ITS | Encounter Summary ---
:1965 Author Organization [facility] Address [address] [place] [address] Care Team Providers Name Role Phone Norma Kenny APRN, C.N.P. Primary Care Provider [phone] Reason for Visit Reason Comments Med Refill Encounter Details Date Type Department Care Team Description 09/30/2021 Refill [facility], Hernan Canchola M.D. 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 PCP - General 09/12/[address] [place] [phone] documented as of this encounter
--- OUTSIDE RECORDS SUMMARY | 2022-01-29 04:10 | XMS_ITS | Encounter Summary ---
:1965 Author Organization [facility] Address [address] [place] [address] Care Team Providers Name Role Phone Norma Kenny APRN C.N.PNikhil Primary Care Provider [phone] Encounter Details Date Type Department Care Team Description 07/17/2021 Clinical Communication Department of Chase Philippe, Medicine in [facility] C.N.PR[place], [place] [address] [place] [address] [phone] Social History Tobacco Use Types Packs/Day Years [...] or relatives? How often do you attend jew or cheondoism More than 4 time s per year 09/17/2018 services? 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 - 07/17/2021 4:53 PM CDT Returned call and unable to reach pt. Detailed message left on [employer] reading rad. Report exactlyas written. Asked pt to contact clinic on Friday as she will be in to answer any questions he may have. Telephone Encounter - July Eason - 07/17/2021 2:13 PM CDT The patient would like a call back at [phone] with the results of his x-ray. He says he was speaking with someone about the results, but then was disconnected before he could hear the results. Thank you. documented in this encounter Plan of Treatment Upcoming Encounters Date Type Specialty Care Team Description 02/15/2022 Office Visit Orthopedic Surgery Madyson Rosa, D.ONikhil [address] [place], [place] [phone] (Wo rk) documented as of this encounter Visit Diagnoses Not on filedocumented in this encounter Additional Health Concerns Assessment Noted Time PHQ-9 Depression Total Score: 4 03/02/2021 10:28 AM CS T documented as of this encounter Care Teams Renal Dialysis Rn Relationship Specialty Start Date End Date Norma Kenny, STEVEN, C.N.P. PCP - General 09/12/[address] [place] [phone] documented as of this encounter
--- OUTSIDE RECORDS SUMMARY | 2022-01-29 04:10 | XMS_ITS | Encounter Summary ---
:1965 Author Organization [facility] Address [address] [place] [address] Care Team Providers Name Role Phone Norma Kenny APRN, C.N.P. Primary Care Provider Reason for Visit Reason Comments Med Refill Sertraline Encounter Details Date Type Department Care Team Description 07/21/2021 Refill Department of [facility] Norma Kenny Me d Refill (Sertraline/) Medicine in [facility] STEVEN, C. N.P. 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 PCP - General 09/12/[address] [place] [phone] documented as of this encounter
--- OUTSIDE RECORDS SUMMARY | 2022-01-29 04:10 | XMS_ITS | Encounter Summary ---
:1965 Author Organization [facility] Address [address] [place] [address] Care Team Providers Name Role Phone Norma Kenny APRN, C.NNikhilPNikhil Primary Care Provider [phone] Reason for Referral Physical Therapy (Routine) - Closed Specialty Diagnoses / Procedures Referred By Contact Refer red To Contact Diagnoses Tear Knee Meniscus Current Subsequent Left Sanaz Mcallister P.A.-C., [facility] Procedures PT Evaluate and treat M.S. [address] [place] [address] Referral ID Status Reason Start Date Expiration Date Visits Requ ested Visits Authorized [id number] Closed 10/29/2021 10/29/2022 1 1 Reason for Visit Auth/Cert Specialty Diagnoses / Procedures Referred By Contact Refer red To Contact Diagnoses Tear Knee Meniscus Current Subsequent Left Tear Knee Meniscus Current Subsequent Left [S83.207D] Procedures [place] ARTHSC KNE W [facility] RPR MED/LAT ARTHROSCOPY KNEE MENISCUS WITH ROOT REPAIR Referral ID Status Reason Start Date Expiration Date Visits Requ ested Visits Authorized [id number] 1 1 Encounter Details Date Type Department Care Team Description 10/29/[address] [facility] OR Hugo Shelton, Tear Knee Meniscus [address] M.D. 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: [phone] and ask for Orthopedic Provider University Manager Primary Care Physicians [facility], [place], [facility]: [phone] [facility]: [phone] After Hours [phone] Additional Numbers Triage Nurse Line- [facility] 8-4:00 pm M-F: [phone] [facility]: [phone] Same Day Surgery [facility]: [phone]: Hours vary: Leave message Physical Therapy: [phone] Billing/Patient Account Services Toll Free: About Your [...] with your health care provider. ?? 2009 [facility] [employer] ([employer]). All rights reserved. [id number] documented in this encounter Medications at Time [...] Tear Knee Meniscus Current Subsequent Left A first beater actively participated and was necessary for one [...] 1st 6 weeks. Throughout the case, my assistant accounting manager aided with manipulation of the limb, camera, [...] Visit Orthopedic Surgery Madyson Rosa D.ONikhil [address] [place] [phone] (Wo rk) documented as of [...] Volume Adjustment - Provider: Andres Light APRN, CUSTOMER SUPPORT PROFESSIONAL) 20 mL/hr, intravenous, Continuous, Starting on Fri10/29/21 [...] must be -2 or higher to administer. Temple ssess for nausea or vomiting after at [...] documented as of this encounter Care Teams Reinforced Concrete Inspector Relationship Specialty Start Date End Date Norma Kenny, STEVEN, C.N.P. PCP - General 09/12/[address] [place] [phone] documented as of this encounter
--- OUTSIDE RECORDS SUMMARY | 2022-01-29 04:10 | XMS_ITS | Encounter Summary ---
:1965 Author Organization [facility] Address [address] [place] [address] Care Team Providers Name Role Phone Norma Kenny APRN, C.N.P. Primary Care Provider [phone] Reason for Visit Reason Comments Med Refill Encounter Details Date Type Department Care Team Description 08/23/2021 Refill [facility], Rio Canchola M.D. 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 PCP - General 09/12/[address] [place] [facility] [place] [address] documented as of this encounter
--- OUTSIDE RECORDS SUMMARY | 2022-01-29 04:10 | XMS_ITS | Encounter Summary ---
:1965 Author Organization [facility] Address [address] [place] [address] Care Team Providers Name Role Phone Norma Kenny APRN, C.N.P. Primary Care Provider [phone] Reason for Referral Outpatient (Routine) - Closed Specialty Diagnoses / Procedures Referred By Contact Refer red To Contact Diagnoses Pain Knee Left Effusion Knee Left Melchor Westbrook D.O. [facility] Region Procedures DX Knee Left 4+ Views [address] [place] [phone] Referral ID Status Reason Start Date Expiration Date Visits Requ ested Visits Authorized [id number] Closed 07/13/2021 07/13/2022 1 1 Reason for Visit Outpatient (Routine) - Closed Specialty Diagnoses / Procedures Referred By Contact Refer red To Contact Diagnoses Pain Knee Left Effusion Knee Left Melchor Westbrook D.O. [facility] Region Procedures DX Knee Left 4+ Views [address] [place] [phone] Referral ID Status Reason Start Date Expiration Date Visits Requ ested Visits Authorized [id number] Closed 07/13/2021 07/13/2022 1 1 Encounter Details Date Type Department Care Team Description 07/17/2021 Hospital Encounter Department of Melchor Westbrook Kn ee Left; Radiology, [place] O, D.O. Effusion Knee Left [facility], in [address] [place] [address] [place], [place] [phone] (Work) [phone] Social History Tobacco Use Types Packs/Day Years [...] often do you attend oriental orthodox or yarsani More than 4 time s [...] at Date Recorded Male 03/25/2018 1:01 PM ADMIN DIR documented as of this encounter Medications at [...] Visit Orthopedic Surgery Madyson Rosa, D.O. [address] [place] [phone] (Wo rk) documented as of this [...] documented as of this encounter Care Teams Factory Laborer Relationship Specialty Start Date End Date Norma Kenny, BRICK GRADER, C.N.P. PCP - General 09/12/[address] [place] [phone] documented as of this encounter
--- OUTSIDE RECORDS SUMMARY | 2022-01-29 04:10 | XMS_ITS | Encounter Summary ---
:1965 Author Organization [facility] Address [address] [place] [address] Care Team Providers Name Role Phone Norma Kenny APRN C.N.PNikhil Primary Care Provider [phone] Encounter Details Date Type Department Care Team Description 07/30/2021 Clinical Communication Department of Chase Philippe, Medicine in [facility], [place] [address] [place] [phone] Social History Tobacco Use Types Packs/Day Years [...] How often do you attend hindu or oriental orthodox More than 4 time [...] at Date Recorded Male 03/25/2018 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 Weinberg today. He says he has to go back to [place] for another injection, and wants to wait a couple weeks before returning to see him. I offered to reschedule his appointment for him, but he said he'd rather work with the person who scheduled the appointment the first time, which is you. He can be reached at [phone]. Thank you. documented in this encounter Plan of Treatment Upcoming Encounters Date Type Specialty Care Team Description 02/15/2022 Office Visit Orthopedic Surgery Madyson Rosa, D.ONikhil [address] [place], [place] [phone] (Wo rk) documented as of this encounter Visit Diagnoses Not on filedocumented in this encounter Additional Health Concerns Assessment Noted Time PHQ-9 Depression Total Score: 4 03/02/2021 10:28 AM CS T documented as of this encounter Care Teams Studio Associate Relationship Specialty Start Date End Date Norma Kenny APRN, C.N.P. PCP - General 09/12/[address] [place] [phone] documented as of this encounter
--- OUTSIDE RECORDS SUMMARY | 2022-01-29 04:10 | XMS_ITS | Encounter Summary ---
:1965 Author Organization [facility] Address [address] [place] [address] Care Team Providers Name Role Phone Norma Kenny APRN C.N.P. Primary Care Provider [phone] Reason for Referral Outpatient (Routine) - Authorized Specialty Diagnoses / Procedures Referred By Contact Refer red To Contact Diagnoses Pain Knee Left Hugo Shelton M.D. [facility] Region Procedures lob-vonj-dkwbgkku-elbow arthrocentesis: L knee joint [address] [place] [address] Referral ID Status Reason Start Date Expiration Date Visits V isits Requested Authorized [id number] Authorized 08/06/2021 08/06/2022 1 1 Reason for Visit Reason Comments Pain Meniscus tear Outpatient (Routine) - Closed Specialty Diagnoses / Procedures Referred By Contact Refer red To Contact Orthopedic Surgery Diagnoses Pain Knee Left Norma Kenny [facility] Region STEVEN, C.N.P. 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 - 08/06/2021 1:00 PM CDTAssociated Order(s): uvu-adas-lsgvaahu-elbow arthrocentesis: L knee joint Post-Procedure Diagnose(s): Pain [...] also mention the possibility of fusing an support dba brace to help load more of his [...] I will place a prescription for an support dba brace. He will follow up for either repeat evaluations or to schedule surgery. Total time spent providing patient care was 40 minutes. This includes time spent with the patient and time spent on same day pre/post visit EMR documentation, orders, medications, procedures, and communication with other health occasional caregiver. documented in this encounter Plan of Treatment Upcoming Encounters Date Type Specialty Care Team Description 02/15/2022 Office Visit Orthopedic Surgery Madyson Rosa D.O. [address] [place], [place] [phone] (Wo rk) documented as of this encounter Procedures Procedure Name Priority Date/Time Associated Diagnosis Comme nts [place] ARTHCS ASP/INJ Routine 08/06/2021 3:10 PM Pain Knee Left Re sults for this MJR JT WO US CDT procedure are i n the results section. documented in this encounter Results [place] ARTHCS ASP/INJ MJR JT WO US (08/06/2021 [...] as of this encounter Care Teams Food Processing Scientist Relationship Specialty Start Date End Date Norma Kenny APRN, C.N.P. PCP - General 09/12/[address] [place] [phone] documented as of this encounter
--- OUTSIDE RECORDS SUMMARY | 2022-01-29 04:10 | XMS_ITS | Encounter Summary ---
:1965 Author Organization [facility] Address [address] [place] [address] Care Team Providers Name Role Phone Norma Kenny APRN C.N.P. Primary Care Provider Reason for Referral Outpatient (Routine) - Closed Specialty Diagnoses / Procedures Referred By Contact Refer red To Contact Orthopedic Surgery Diagnoses Pain Knee Left Norma Kenny [facility] STEVEN, C.N.P. [address] [place] [address] Referral ID Status Reason Start Date Expiration Date Visits Requ ested Visits Authorized [id number] Closed 07/17/2021 07/17/2022 1 1 Scheduling Instructions Ortho internal referral panel order, dedrick ging before Consult visit Reason for Visit Reason Comments Knee Pain No change from previous visi t Encounter Details Date Type Department Care Team Description 07/17/2021 Office Visit Department of Family Norma Kenny Pa in Knee Left Medicine in [facility] STEVEN, C.N.P. 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 PCP - General 09/12/[address] [place] [phone] documented as of this encounter
--- OUTSIDE RECORDS SUMMARY | 2022-01-29 04:10 | XMS_ITS | Encounter Summary ---
:1965 Author Organization [facility] Address [address] [place] [address] Care Team Providers Name Role Phone Norma Kenny APRN, C.N.P. Primary Care Provider Encounter Details Date Type Department Care Team Description 08/07/2021 Clinical Communication [facility] [phone] Social History Tobacco Use Types Packs/Day Years [...] How often do you attend christianity or scientologist More than 4 time s [...] at Date Recorded Male 03/25/2018 1:01 PM UROLOGIST MD documented as of this encounter Miscellaneous Notes Telephone Encounter - Yany Albert R.N. - 08/07/2021 11:02 AM CDT Prescription for un boat loader helper knee brace faxed to [facility]. documented in this encounter Plan of Treatment Upcoming Encounters Date Type Specialty Care Team Description 02/15/2022 Office Visit Orthopedic Surgery Madyson Rosa il, D.O. [address] [place], [place] [phone] (Wo rk) documented as of this encounter Visit Diagnoses Not on filedocumented in this encounter Additional Health Concerns Assessment Noted Time PHQ-9 Depression Total Score: 4 03/02/2021 10:28 AM CS T documented as of this encounter Care Teams Medical Assistant Float Relationship Specialty Start Date End Date Norma Kenny, STEVEN, C.N.P. PCP - General 09/12/[address] [place] [address] documented as of this encounter
--- OUTSIDE RECORDS SUMMARY | 2022-01-29 04:11 | XMS_ITS | Encounter Summary ---
:1965 Author Organization [facility] Address [address] [place] [address] Care Team Providers Name Role Phone Norma Kenny APRN C.N.P. Primary Care Provider [phone] Reason for Visit Reason Comments Hypertension Back pain Encounter Details Date Type Department Care Team Description 06/29/2021 Office Visit Department of Family Norma Kenny El evated Liver Enzyme Test (Primary Dx); Medicine in [facility] STEVEN C.N.P. 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 Has no pets. Plans to move into [place] this year after renovation and sell current [...] encounter Miscellaneous Notes Result Encounter Note - oNrma Kenny APRN, C.N.P. - 06/29/2021 4:19 PM [...] Orthopedic Surgery Madyson Rosa, Jarad.ONikhil [address] [place], [place] [phone] (Wo rk) documented as [...] CDT eGFR-Black/Afric >90 >=60 06/29/2021 NPRG an Zimbabwean mL/min/BSA 2:20 PM CDT Comment: ----ADDITIONAL INFORMATION---- [...] Organization Address City/State/ZIP Code Phon e Number [facility]- [address] [place], [place] [address] [place] [address] [place] [address] [facility] [address] [place] documented in this encounter Visit Diagnoses Diagnosis Elevated Liver Enzyme Test - Primary Pain Low Back Chronic documented in this encounter Additional Health Concerns Assessment Noted Time PHQ-9 Depression Total Score: 4 03/02/2021 10:28 AM CS T documented as of this encounter Care Teams Tuck Pointer Relationship Specialty Start Date End Date Norma Kenny APRN, C.N.P. PCP - General 09/12/[address] [place] [phone] documented as of this encounter
--- OUTSIDE RECORDS SUMMARY | 2022-01-29 04:11 | XMS_ITS | Encounter Summary ---
:1965 Author Organization [facility] Address [address] [place] [address] Care Team Providers Name Role Phone Norma Kenny APRN, C.N.P. Primary Care Provider [phone] Encounter Details Date Type Department Care Team Description 04/03/2021 Orders Only Pharmacy Prior Auth RO Norma Kenny, STEVEN C.N.P. 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 PCP - General 09/12/[address] [place] [address] documented as of this encounter
--- OUTSIDE RECORDS SUMMARY | 2022-01-29 04:11 | XMS_ITS | Encounter Summary ---
:1965 Author Organization [facility] Address [address] [place] [address] Care Team Providers Name Role Phone Norma Solis APRN C.N.P. Primary Care Provider [phone] Reason for Visit Reason Comments Rx Prior Authorization PANTOPRAZOLE SODIUM 40 MG - PA QTY DENIED Encounter Details Date Type Department Care Team Description 04/06/2021 Clinical Communication Department of Blaise Solis Family Medicine in Author Ansleyizmya tileighann Booth APRN, C.N.P. 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 - 04/12/2021 7:54 AM EQUALIZING SAW OPERATOR Addended by: NORMA SOLIS on: 04/12/2021 07:54 AM Modules accepted: Orders LIZING SAW OPERATOR Addendum Note - Lorraine Cosby - 04/11/2021 11:54 AM EQUALIZING SAW OPERATOR Addended by: LORRAINE COSBY on: 04/11/2021 11:54 AM Modules accepted: Orders LIZING SAW OPERATOR Telephone Encounter - Lorraine Cosby - 04/11/2021 11:53 AM CST Left pt a detialed message regarding medication change. I have pended the medication for Norma to approve LIZING SAW OPERATOR Telephone Encounter - Norma Solis APRN, C.N.P. - 04/10/2021 8:19 AM EQUALIZING SAW OPERATOR If this is not allowed- we can switch to 20mg BID to see if evening dose helps more with morning nausea. Thanks, TK LIZING SAW OPERATOR Telephone Encounter - Mercedes Jacobo - 04/06/2021 [...] Keyshawn HERMAN. Thank you, The OPPA Team LIZING SAW OPERATOR documented in this encounter Plan of Treatment Upcoming Encounters Date Type Specialty Care Team Description 02/15/2022 Office Visit Orthopedic Surgery Madyson Rosa il, D.O. [address] [place], [place] [phone] (Wo rk) documented as of this encounter Visit Diagnoses Not on filedocumented in this encounter Additional Health Concerns Assessment Noted Time PHQ-9 Depression Total Score: 4 03/02/2021 10:28 AM CS T documented as of this encounter Care Teams Chargeback Analyst Relationship Specialty Start Date End Date Norma Solis, INTERNAL COMBUSTION ENGINE INSPECTOR, C.N.P. PCP - General 09/12/[address] [place] [address] documented as of this encounter
--- OUTSIDE RECORDS SUMMARY | 2022-01-29 04:11 | XMS_ITS | Encounter Summary ---
:1965 Author Organization [facility] Address [address] [place] [address] Care Team Providers Name Role Phone Norma Kenny APRN, C.N.P. Primary Care Provider [phone] Reason for Referral MRI/CAT/PET Scan (Routine) - Closed Specialty Diagnoses / Procedures Referred By Contact Refer red To Contact Radiology Diagnoses Radiculopathy Lumbar Norma Kenny APRN, [facility] Region Procedures MR Lumbar Spine without IV Contrast IN MRI LUMB SPINE WO CNTRST C.N.P. [address] [place] [address] Referral ID Status Reason Start Date Expiration Date Visits Requ ested Visits Authorized [id number] Closed 05/01/2021 05/01/2022 1 1 EPOINT MANAGER Reason for Visit Reason Comments Anxiety Back pain and hip pain Outpatient (Routine) - Closed Specialty Diagnoses / Procedures Referred By Contact Refer red To Contact Family Medicine Diagnoses Anxiety Norma Kenny APRN, [facility] Region C.N.P. [address] [place] [address] Referral ID Status Reason Start Date Expiration Date Visits Requ ested Visits Authorized [id number] Closed 04/03/2021 04/03/2022 1 1 Encounter Details Date Type Department Care Team Description 05/01/2021 Office Visit Department of Family Norma Kenny Liver Enzyme Test (Primary Dx); Medicine in [facility], SLAB INSPECTOR, C.N.P. Anxiety; [place], [place] [address] Radiculopathy Lumbar; [address] [place], [place] Thrombocytopenia (HCC); [place] [address] Hyperlipidemia [phone] Social History Tobacco Use Types Packs/Day Years [...] How often do you attend mormon or temple More than 4 time s [...] at Date Recorded Male 03/25/2018 1:01 PM SHAREPOINT MANAGER documented as of this encounter Last Filed Vital Signs Vital Sign Reading Time Taken Comments Blood Pressure 120/81 05/01/2021 1:47 PM SHAREPOINT MANAGER Pulse 92 05/01/2021 1:47 PM SHAREPOINT MANAGER Temperature 36.5 ??C (97.7 ??F) 05/01/2021 1:47 PM SHAREPOINT MANAGER Respiratory Rate 20 05/01/2021 1:47 PM SHAREPOINT MANAGER Oxygen Saturation 98% 05/01/2021 1:47 PM SHAREPOINT MANAGER Inhaled Oxygen Concentration - - Weight 143 kg (314 lb 14.4 oz) 05/01/2021 1:47 PM SHAREPOINT MANAGER Height - - Body Mass Index 40.41 02/21/2021 12:52 PM SHAREPOINT MANAGER documented in this encounter Progress Notes Norma [...] 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 Has no pets. Plans to move into [employer] this year after renovation and sell [...] All questions answered. Norma Kenny APRN, C.N.P. EPOINT MANAGER documented in this encounter Miscellaneous Notes Result Encounter Note - Norma Kenny APRN, C.N.P. - 05/01/2021 7:21 PM SHAREPOINT MANAGER Please call Twin and let him know- [...] if needed for his stomach. Thanks, TK EPOINT MANAGER documented in this encounter Plan of Treatment Upcoming Encounters Date Type Specialty Care Team Description 02/15/2022 [facility] [address] [place], [place] [phone] (Wo rk) documented as of this encounter Procedures Procedure Name Priority Date/Time Associated Diagnosis Comme nts MORPHOLOGY EVALUATION Routine 05/01/2021 2:20 Res ults for this PM SHAREPOINT MANAGER procedure are i n the results section. LIPID PANEL, S Routine 05/01/2021 2:20 Hyperlipidemia Results for this PM SHAREPOINT MANAGER procedure are i n the results section. CBC WITH Routine 05/01/2021 2:20 Thrombocytopenia (HCC) Re sults for this DIFFERENTIAL, B PM SHAREPOINT MANAGER procedure ar e in the results section. COMPREHENSIVE Routine 05/01/2021 2:20 Elevated Liver Enzyme Re sults for this METABOLIC PANEL, S/P PM SHAREPOINT MANAGER Test procedu re are in the results section. documented in this encounter Results MR Lumbar Spine without IV Contrast (05/04/2021 11:26 AM SHAREPOINT MANAGER) Anatomical Region Laterality Modality Lumbar Spine, Neuroradiology RST LOS, Neuroradiology N/A Magnetic Resonance ARZ LOS, Neuroradiology FLA LOS Specimen (Source) Anatomical Collection Method Collection Time Re ceived Time Location / / Volume Laterality 05/04/2021 11:30 AM SHAREPOINT MANAGER Impressions 05/04/2021 11:33 AM SHAREPOINT MANAGER Degenerative changes of the lumbar spine primarily in the posterior facets at L4-5 and L5-S1 Narrative 05/04/2021 11:33 AM SHAREPOINT MANAGER EXAM: ??MR LUMBAR SPINE WITHOUT IV CONTRAST [...] any spinal intervention or surgery. Procedure Note Romiane Westbrook M.D. - 05/04/2021Forma tting of this [...] MRI PROCEDURES Morphology Evaluation (05/01/2021 2:20 PM SHAREPOINT MANAGER) Analysis Performed At Patho logist Time Signature RBC Morphology Normal 05/01/2021 NPRG 4:26 PM SHAREPOINT MANAGER PLT Morphology Normal 05/01/2021 NPRG 4:26 PM SHAREPOINT MANAGER PLT Estimate Adequate Adequate 05/01/2021 NPRG 4:26 PM SHAREPOINT MANAGER Specimen Anatomical Collection Method Collection Time Receive d Time (Source) Location / / Volume Laterality Blood 05/01/2021 2:20 PM 3:41 SHAREPOINT MANAGER PM SHAREPOINT MANAGER Norma Kenny APRN, C.N.P. LAB BLOOD ADD-ON Performing Organization Address City/State/ZIP Code Phon e Number [facility] [place] [address] [place] [address] [place] [address] [address] [facility] Lipid Panel (05/01/2021 2:20 PM SHAREPOINT MANAGER) P athologist Signature Cholesterol, 172 mg/dL 05/01/2021 NPRG Total 4:09 PM SHAREPOINT MANAGER Comment: ----REFERENCE VALUE---- Desirable: < 200 Borderline high: 200 - 239 High: > or = 240 Triglycerides 133 mg/dL 05/01/2021 4:09 PM SHAREPOINT MANAGER NPR G Comment: ----REFERENCE VALUE---- Normal: <150 Borderline high: 150-199 High: 200-499 Very high: > or =500 Cholesterol, HDL 50 >=40 mg/dL 05/01/2021 4:09 PM SHAREPOINT MANAGER NPRG Calculated LDL 95 mg/dL 05/01/2021 4:09 PM SHAREPOINT MANAGER MEDIA SPECIALIST RG Comment: ----REFERENCE VALUE---- Desirable: <100 mg/dL Above Desirable: 100-129 mg/dL Borderline High: 130-159 mg/dL High: 160-189 mg/dL Very High: >=190 mg/dL Cholesterol, Non-HDL, Calculated 122 mg/dL 022 4:09 PM SHAREPOINT MANAGER NPRG Comment: ----REFERENCE VALUE---- Desirable: <130 Above Desirable: 130-159 Borderline high: 160-189 High: 190-219 Very high: > or =220 Specimen Anatomical Collection Method Collection Time Receive d Time (Source) Location / / Volume Laterality Blood (Blood, 05/01/2021 2:20 PM 05/01/19 3:41 Venous) SHAREPOINT MANAGER PM SHAREPOINT MANAGER Viridiana Adams APRNNGregg LAB BLOOD ADD-ON Performing Organization Address City/State/ZIP Code Phon e Number [facility]- [address] [place], [place] [address] [place] [address] [facility] [address] (ABNORMAL) Comprehensive Metabolic Panel (05/01/2021 2:20 PM SHAREPOINT MANAGER) P athologist Signature Potassium, P 4.4 3.6 - 5.2 05/01/2021 NPRG mmol/L 4:08 PM SHAREPOINT MANAGER Sodium, P 138 135 - 145 05/01/2021 NPRG mmol/L 4:08 PM SHAREPOINT MANAGER Chloride, P 102 98 - 107 05/01/2021 NPRG mmol/L 4:08 PM SHAREPOINT MANAGER Bicarbonate, P 27 22 - 29 05/01/2021 NPRG mmol/L 4:09 PM SHAREPOINT MANAGER Anion Gap, P 9 7 - 15 05/01/2021 NPRG 4:08 PM SHAREPOINT MANAGER BUN (Blood Urea 20 8 - 24 05/01/2021 NPRG Nitrogen), P mg/dL 4:09 PM SHAREPOINT MANAGER Creatinine 0.82 0.74 - 05/01/2021 NPRG 1.35 mg/dL 4:09 PM SHAREPOINT MANAGER eGFR-Black/Afric >90 >=60 05/01/2021 NPRG an Uzbek mL/min/BSA 4:09 PM SHAREPOINT MANAGER Comment: ----ADDITIONAL INFORMATION---- Estimated GFR calculated using the 2009 CKD_EPI creatinine equation. eGFR Non-Black/ >90 >=60 mL/min/BSA 05/01/2021 4:09 PM SHAREPOINT MANAGER NPRG Comment: ----ADDITIONAL INFORMATION---- Estimated GFR calculated using the 2009 CKD_EPI creatinine equation. Calcium, Total, P 10.2 (H) 8.6 - 10.0 mg/dL 05/01/2021 4:09 PM SHAREPOINT MANAGER NPRG Glucose, P 114 70 - 140 mg/dL 05/01/2021 4:09 PM SHAREPOINT MANAGER N PRG Protein, Total, P 7.6 6.3 - 7.9 g/dL 05/01/2021 4:09 P M SHAREPOINT MANAGER NPRG Albumin, P 4.2 3.5 - 5.0 g/dL 05/01/2021 4:09 PM SHAREPOINT MANAGER N PRG Aspartate Aminotransferase 66 (H) 8 - 48 U/L 05/01/2021 4 :09 PM SHAREPOINT MANAGER NPRG (AST), P Alkaline Phosphatase, P 96 40 - 129 U/L 05/01/2021 4: 09 PM SHAREPOINT MANAGER NPRG Alanine Aminotransferase 100 (H) 7 - 55 U/L 05/01/2021 4:0 9 PM SHAREPOINT MANAGER NPRG (ALT), P Bilirubin, Total, P 0.4 <=1.2 mg/dL 05/01/2021 4:09 PM SHAREPOINT MANAGER NPRG Specimen Anatomical Collection Method Collection Time Receive d Time (Source) Location / / Volume Laterality Blood (Blood, 05/01/2021 2:20 PM 05/01/19 3:41 Venous) SHAREPOINT MANAGER PM SHAREPOINT MANAGER Norma Kenny APRN, C.N.P. LAB BLOOD ADD-ON Performing Organization Address City/State/ZIP Code Phon e Number [facility]- [address] [place] [address] [place] [address] [place] [address] [address] [facility] (ABNORMAL) CBC with Differential, Blood (05/01/2021 2:20 PM SHAREPOINT MANAGER) [facility] gist Method Time Signature Hemoglobin 13.9 13.2 - 05/01/2021 NPRG 16.6 g/dL 4:26 PM SHAREPOINT MANAGER Hematocrit 41.2 38.3 - 05/01/2021 NPRG 48.6 % 4:26 PM SHAREPOINT MANAGER Erythrocytes 4.15 (L) 4.35 - 05/01/2021 NPRG 5.65 4:26 PM SHAREPOINT MANAGER x10(12)/L MCV 99.3 (H) 78.2 - 05/01/2021 NPRG 97.9 fL 4:26 PM SHAREPOINT MANAGER RBC Distrib Width 12.7 11.8 - 05/01/2021 NPRG 14.5 % 4:26 PM SHAREPOINT MANAGER Platelet Count 379 (H) 135 - 317 05/01/2021 NPRG x10(9)/L 4:26 PM SHAREPOINT MANAGER Leukocytes 9.0 3.4 - 9.6 05/01/2021 NPRG x10(9)/L 4:26 PM SHAREPOINT MANAGER Neutrophils 6.43 1.56 - 05/01/2021 NPRG 6.45 4:26 PM SHAREPOINT MANAGER x10(9)/L Lymphocytes 1.74 0.95 - 05/01/2021 NPRG 3.07 4:26 PM SHAREPOINT MANAGER x10(9)/L Monocytes 0.66 0.26 - 05/01/2021 NPRG 0.81 4:26 PM SHAREPOINT MANAGER x10(9)/L Eosinophils 0.10 0.03 - 05/01/2021 NPRG 0.48 4:26 PM SHAREPOINT MANAGER x10(9)/L Basophils 0.03 0.01 - 05/01/2021 NPRG 0.08 4:26 PM SHAREPOINT MANAGER x10(9)/L Specimen Anatomical Collection Method Collection Time Receive d Time (Source) Location / / Volume Laterality Blood (Blood, 05/01/2021 2:20 PM 05/01/19 22 3:41 Venous) SHAREPOINT MANAGER PM SHAREPOINT MANAGER Norma Kenny APRN, C.N.P. LAB BLOOD ADD-ON Performing Organization Address City/State/ZIP Code Phon e Number [facility]- [address] [place], [place] [address] [place] [address] [facility] [address] documented in this encounter Visit Diagnoses Diagnosis Elevated Liver Enzyme Test - Primary Anxiety Radiculopathy Lumbar Thrombocytopenia (HCC) Hyperlipidemia Radiculopathy Lumbar documented in this encounter Additional Health Concerns Assessment Noted Time PHQ-9 Depression Total Score: 4 03/02/2021 10:28 AM CS T documented as of this encounter Care Teams Hvac Estimator Relationship Specialty Start Date End Date Norma Kenny APRN, C.N.P. PCP - General 09/12/[address] [place] [address] documented as of this encounter
--- OUTSIDE RECORDS SUMMARY | 2022-01-29 04:11 | XMS_ITS | Encounter Summary ---
:1965 Author Organization [facility] Address [address] [place] [address] Care Team Providers Name Role Phone Norma Kenny APRN C.N.P. Primary Care Provider [phone] Reason for Visit Reason Comments Med Refill Steroid Encounter Details Date Type Department Care Team Description 05/08/2021 Clinical Communication Department of Norma Kenny d Refill Family Medicine in STEVEN Salas, (Steroid) [place], C.N.P. [place] [address] [place] [phone] Social History Tobacco Use Types Packs/Day Years [...] How often do you attend druze or tenriism More than 4 time s [...] at Date Recorded Male 03/25/2018 1:01 PM ERP MANAGER documented as of this encounter Miscellaneous Notes Telephone Encounter - Lavinia Mike R.N. - 05/08/2021 9:33 AM ERP MANAGER Patient saw Norma Kenny 05/01/21 and was [...] her for follow up if n eeded. MANAGER Telephone Encounter - July Eason - 05/08/2021 8:38 AM CST The patient wants to know if he can get a refill of the steroid pack Norma Kenny prescribed for him for his arthritis pain in his back. He can be reached at [phone]. Thank you. MANAGER documented in this encounter Plan of Treatment Upcoming Encounters Date Type Specialty Care Team Description 02/15/2022 Office Visit Orthopedic Surgery Madyson Rosa D.O. [address] [place], [place] [phone] (Wo rk) documented as of this encounter Visit Diagnoses Not on filedocumented in this encounter Additional Health Concerns Assessment Noted Time PHQ-9 Depression Total Score: 4 03/02/2021 10:28 AM CS T documented as of this encounter Care Teams Lei Maker Relationship Specialty Start Date End Date Norma Kenny APRN, C.N.P. PCP - General 09/12/[address] [facility] [place] [phone] documented as of this encounter
--- OUTSIDE RECORDS SUMMARY | 2022-01-29 04:11 | XMS_ITS | Encounter Summary ---
:1965 Author Organization [facility] Address [address] [place] [address] Care Team Providers Name Role Phone Norma Kenny APRN, C.N.P. Primary Care Provider [phone] Reason for Visit Reason Comments Med Refill Encounter Details Date Type Department Care Team Description 06/17/2021 Refill [facility], [place] M.D. 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 PCP - General 09/12/[address] [facility] [address] documented as of this encounter
--- OUTSIDE RECORDS SUMMARY | 2022-01-29 04:11 | XMS_ITS | Encounter Summary ---
:1965 Author Organization [facility] Address [address] [place] [address] Care Team Providers Name Role Phone Norma Kenny APRN, C.N.P. Primary Care Provider [phone] Reason for Visit Reason Comments Med Refill Medication Question Encounter Details Date Type Department Care Team Description 04/03/2021 Refill Department of [facility] Norma Kenny Me d Refill; Medication Medicine in [place], [place]EVEN, C. N.P. 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 - 04/10/2021 2:59 PM LABOR CREW SUPERVISOR Yes I spoke with pharmacy. Kevin I did not complete the note. R CREW SUPERVISOR Telephone Encounter - Norma Kenny APRN C.N.P. - 04/10/2021 8:20 AM LABOR CREW SUPERVISOR Yes 150mg daily. Thanks, TK R CREW SUPERVISOR Telephone Encounter - Jeannette Bernardo L.P.N. - 04/06/2021 4:21 PM LABOR CREW SUPERVISOR Text sent to TK today to address issue with prescription as she is out of clinic this week. R CREW SUPERVISOR Addendum Note - Julia Mike R.N. - 04/06/2021 1:06 PM LABOR CREW SUPERVISOR Addended by: JULIA MIKE on: 04/06/2021 01:06 PM Modules accepted: Orders R CREW SUPERVISOR Telephone Encounter - Julia Mike R.N. - 04/06/2021 1:04 PM LABOR CREW SUPERVISOR Norma - There are two conflicting directions on the sig. Can you please provide clarification on thesertraline instructions? Is it to be 1.5 tab (150 mg daily)? R CREW SUPERVISOR Telephone Encounter - Tiarramartha Leanne Ruby - 04/06/2021 12:27 PM CST Britney from [facility], still waiting to hear back from Norma Mcguire Regarding Sertraline, and clarification on the directions. Please give Christina calderón a call. Thank you. R CREW SUPERVISOR Telephone Encounter - Mirlande Milian L.P.N. - 04/03/2021 3:43 PM CST Patient seen in clinic today. R CREW SUPERVISOR documented in this encounter Plan of Treatment Upcoming Encounters Date Type Specialty Care Team Description 02/15/2022 Office Visit Orthopedic Surgery RavinnmMadyson haq il, D.O. [address] [place], [place] [phone] (Wo rk) documented as of this encounter Visit Diagnoses Diagnosis Nausea Anxiety documented in this encounter Additional Health Concerns Assessment Noted Time PHQ-9 Depression Total Score: 4 03/02/2021 10:28 AM CS T documented as of this encounter Care Teams Manager Relocation Relationship Specialty Start Date End Date Norma Kenny, STEVEN, C.N.P. PCP - General 09/12/[address] [place] [address] documented as of this encounter
--- OUTSIDE RECORDS SUMMARY | 2022-01-29 04:11 | XMS_ITS | Encounter Summary ---
:1965 Author Organization [facility] Address [address] [place] [address] Care Team Providers Name Role Phone Norma Kenny APRN, C.N.P. Primary Care Provider [phone] Reason for Referral Appointment Request (Routine) - Closed Specialty Diagnoses / Procedures Referred By Contact Refer red To Contact Diagnoses Fatigue Norma Kenny APRN, Procedures CBC without Differential C.N.P. [address] [place] [address] Referral ID Status Reason Start Date Expiration Date Visits Requ ested Visits Authorized [id number] Closed 04/05/2021 04/05/2022 1 1 CULTURAL EDUCATION TEACHER Specialty Diagnoses / Procedures Referred By Contact Refer red To Contact Norma Kenny AP RN, C.N.P. [facility] [address] [place] [address] Referral ID Status Reason Start Date Expiration Date Visits Requ ested Visits Authorized CULTURAL EDUCATION TEACHER Outpatient (Routine) - Closed Specialty Diagnoses / Procedures Referred By Contact Refer red To Contact Family Medicine Diagnoses Anxiety Norma Kenny APRN, [facility] C.N.P. [address] [place] [address] Referral ID Status Reason Start Date Expiration Date Visits Requ ested Visits Authorized [id number] Closed 04/03/2021 04/03/2022 1 1 CULTURAL EDUCATION TEACHER Reason for Visit Reason Comments Follow-up Outpatient (Routine) - Closed Specialty Diagnoses / Procedures Referred By Contact Refer red To Contact Family Medicine Norma Kenny APRN, [facility] C.N.P. [address] [place] [address] Referral ID Status Reason Start Date Expiration Date Visits Requ ested Visits Authorized [id number] Closed 03/02/2021 03/02/2022 1 1 Encounter Details Date Type Department Care Team Description 04/03/2021 Office Visit Department of Norma Philippe (Primary Dx); Medicine in [facility] STEVEN, C.N.P. Morbid Obesity Body Mass Index 40.0-44.9 Adult ([facility]); [place], [place] [address] [place] Anxiety; [address] [place], [place] Gastroesophageal Reflux Dise ase; [place] [address] Encounter For COVID-19 Vaccine Immunizat [place]; [id number] Fatigue Social History Tobacco Use Types Packs/Day [...] How often do you attend evangelical or orthodoxy More than 4 time s [...] at Date Recorded Male 03/25/2018 1:01 PM AGRICULTURAL EDUCATION TEACHER documented as of this encounter Last Filed Vital Signs Vital Sign Reading Time Taken Comments Blood Pressure 128/87 04/03/2021 10:34 AM AGRICULTURAL EDUCATION TEACHER Pulse 105 04/03/2021 10:34 AM AGRICULTURAL EDUCATION TEACHER Temperature 36.7 ??C (98.1 ??F) 04/03/2021 10:34 AM AGRICULTURAL EDUCATION TEACHER Respiratory Rate 20 04/03/2021 10:34 AM AGRICULTURAL EDUCATION TEACHER Oxygen Saturation 95% 04/03/2021 10:34 AM AGRICULTURAL EDUCATION TEACHER Inhaled Oxygen Concentration - - Weight 142 kg (313 lb 3.2 oz) 04/03/2021 10:34 AM AGRICULTURAL EDUCATION TEACHER Height - - Body Mass Index 40.2 02/21/2021 12:52 PM AGRICULTURAL EDUCATION TEACHER documented in this encounter Progress Notes Norma [...] or better yet, a [facility]. He will think about this and [...] for 3-4 weeks. Norma Kenny APRN, C.N.P. CULTURAL EDUCATION TEACHER documented in this encounter Plan of Treatment Upcoming Encounters Date Type Specialty Care Team Description 02/15/2022 Office Visit Orthopedic Surgery RavinflMadyson haq, D.ONikhil [address] [place] [phone] (Wo rk) Scheduled Referrals Name Type Priority Associated Diagnoses Order S chedule Family Medicine Outpatient Referral Routine Anxiety Expec tim: office visit (clinic) 2021 (Approximate), Expires: 07/02/2022 Covid immunization Outpatient Referral Routine Encounter For E xpected: office visit COVID-19 Vaccine 04/24/2021, Subsequent; Pfizer Immunization Expires: 07/02/2022 documented as of this encounter Results S-TSH (Thyroid-Stimulating Hormone - Sensitive) (04/17/2021 10:06 AM AGRICULTURAL EDUCATION TEACHER) P athologist Signature TSH, Sensitive 1.5 0.3 - 4.2 04/17/2021 NPRG mIU/L 12:20 PM AGRICULTURAL EDUCATION TEACHER Specimen Anatomical Collection Method Collection Time Receive d Time (Source) Location / / Volume Laterality Blood (Blood, 04/17/2021 10:06 04/17/2021 Venous) AM AGRICULTURAL EDUCATION TEACHER 11:36 AM AGRICULTURAL EDUCATION TEACHER Norma Kenny APRN, Caridad.N.P. LAB BLOOD ADD-ON Performing Organization Address City/State/ZIP [facility] Phon e Number [address] [address] [facility] NPRG [place] [id number] [address] Hemoglobin A1c (04/17/2021 10:06 AM AGRICULTURAL EDUCATION TEACHER) athologist Signature Hemoglobin A1c, 5.4 4.2 - 5.6 04/17/2021 NPRG B % 12:29 PM AGRICULTURAL EDUCATION TEACHER Specimen Anatomical Collection Method Collection Time Receive d Time (Source) Location / / Volume Laterality Blood (Blood, 04/17/2021 10:06 04/17/2021 Venous) AM AGRICULTURAL EDUCATION TEACHER 11:36 AM AGRICULTURAL EDUCATION TEACHER Norma Kenny APRN, C.N.P. LAB BLOOD ADD-ON Performing Organization Address City/[facility] Code Phon e Number [address] [address] [facility] [place] [phone] [address] (ABNORMAL) Comprehensive Metabolic Panel (04/17/2021 10:06 AM AGRICULTURAL EDUCATION TEACHER) athologist Signature Potassium, P 3.8 3.6 - 5.2 04/17/2021 NPRG mmol/L 12:25 PM AGRICULTURAL EDUCATION TEACHER Sodium, P 135 135 - 145 04/17/2021 NPRG mmol/L 12:25 PM AGRICULTURAL EDUCATION TEACHER Chloride, P 93 (L) 98 - 107 04/17/2021 NPRG mmol/L 12:25 PM AGRICULTURAL EDUCATION TEACHER Bicarbonate, P 27 22 - 29 04/17/2021 NPRG mmol/L 12:25 PM AGRICULTURAL EDUCATION TEACHER Anion Gap, P 15 7 - 15 04/17/2021 NPRG 12:25 PM AGRICULTURAL EDUCATION TEACHER BUN (Blood Urea 14 8 - 24 04/17/2021 NPRG Nitrogen), P mg/dL 12:25 PM AGRICULTURAL EDUCATION TEACHER Creatinine 0.78 0.74 - 04/17/2021 NPRG 1.35 mg/dL 12:25 PM AGRICULTURAL EDUCATION TEACHER eGFR-Black/Afri >90 >=60 04/17/2021 NPRG can [place] mL/min/BSA 12:25 PM AGRICULTURAL EDUCATION TEACHER Comment: ----ADDITIONAL INFORMATION---- Estimated GFR calculated using the 2009 CKD_EPI creatinine equation. eGFR Non-Black/ >90 >=60 mL/min/BSA 04/17/2021 12:25 PM AGRICULTURAL EDUCATION TEACHER NPRG Comment: ----ADDITIONAL INFORMATION---- Estimated GFR calculated using the 2009 CKD_EPI creatinine equation. Calcium, Total, P 8.9 8.6 - 10.0 mg/dL 04/17/2021 12:2 5 PM NPRG AGRICULTURAL EDUCATION TEACHER Glucose, P 121 70 - 140 mg/dL 04/17/2021 12:25 PM NPRG AGRICULTURAL EDUCATION TEACHER Protein, Total, P 7.6 6.3 - 7.9 g/dL 04/17/2021 12:25 PM NPRG AGRICULTURAL EDUCATION TEACHER Albumin, P 4.3 3.5 - 5.0 g/dL 04/17/2021 12:25 PM NPRG AGRICULTURAL EDUCATION TEACHER Aspartate Aminotransferase 265 (H) 8 - 48 U/L 04/17/2021 1 2:25 PM NPRG (AST), P AGRICULTURAL EDUCATION TEACHER Alkaline Phosphatase, P 97 40 - 129 U/L 04/17/2021 12 :25 PM NPRG AGRICULTURAL EDUCATION TEACHER Alanine Aminotransferase 150 (H) 7 - 55 U/L 04/17/2021 12: 25 PM NPRG (ALT), P AGRICULTURAL EDUCATION TEACHER Bilirubin, Total, P 1.6 (H) <=1.2 mg/dL 04/17/2021 12:25 P M NPRG AGRICULTURAL EDUCATION TEACHER Specimen Anatomical Collection Method Collection Time Receive d Time (Source) Location / / Volume Laterality Blood (Blood, 04/17/2021 10:06 04/17/2021 Venous) AM AGRICULTURAL EDUCATION TEACHER 11:36 AM AGRICULTURAL EDUCATION TEACHER Viridiana Adams APRNNNikhilP. LAB BLOOD ADD-ON Performing Organization Address City/State/ZIP Code Phon e Number [facility] [address] [place], [place] [address] [facility] [address] (ABNORMAL) CBC without Differential (04/17/2021 10:06 AM AGRICULTURAL EDUCATION TEACHER) [facility] gist Method Time Signature Hemoglobin 14.0 13.2 - 04/17/2021 NPRG 16.6 g/dL 1:41 PM AGRICULTURAL EDUCATION TEACHER Hematocrit 40.5 38.3 - 04/17/2021 NPRG 48.6 % 1:41 PM AGRICULTURAL EDUCATION TEACHER Erythrocytes 4.08 (L) 4.35 - 04/17/2021 NPRG 5.65 1:41 PM AGRICULTURAL EDUCATION TEACHER x10(12)/L MCV 99.3 (H) 78.2 - 04/17/2021 NPRG 97.9 fL 1:41 PM AGRICULTURAL EDUCATION TEACHER RBC Distrib Width 12.6 11.8 - 04/17/2021 NPRG 14.5 % 1:41 PM AGRICULTURAL EDUCATION TEACHER Platelet Count 81 (L) 135 - 317 04/17/2021 NPRG x10(9)/L 1:41 PM AGRICULTURAL EDUCATION TEACHER Leukocytes 5.2 3.4 - 9.6 04/17/2021 NPRG x10(9)/L 1:41 PM AGRICULTURAL EDUCATION TEACHER Specimen Anatomical Collection Method Collection Time Receive d Time (Source) Location / / Volume Laterality Blood (Blood, 04/17/2021 10:06 04/17/2021 Venous) AM AGRICULTURAL EDUCATION TEACHER 11:36 AM AGRICULTURAL EDUCATION TEACHER Norma Kenny APRN, C.N.P. LAB BLOOD ADD-ON Performing Organization Address City/State/ZIP Code Phon e Number [facility] [address] [place], [place] [address] [facility] [place] [address] [place] [address] [address] [facility] documented in this encounter Visit Diagnoses Diagnosis Nausea - Primary Morbid Obesity Body Mass Index 40.0-44.9 Adult (HCC) Anxiety Gastroesophageal Reflux Disease Encounter For COVID-19 Vaccine Immunizat ion Fatigue documented in this encounter Additional Health Concerns Assessment Noted Time PHQ-9 Depression Total Score: 4 03/02/2021 10:28 AM CS T documented as of this encounter Care Teams Depalletizer Operator Relationship Specialty Start Date End Date Norma Kenny APRN, C.N.P. PCP - General 09/12/[address] [place] [address] documented as of this encounter
--- OUTSIDE RECORDS SUMMARY | 2022-01-29 04:11 | XMS_ITS | Encounter Summary ---
:1965 Author Organization [facility] Address [address] [place] [address] Care Team Providers Name Role Phone Norma Kenny APRN, C.N.P. 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 PCP - General 09/12/[address] [place] [phone] documented as of this encounter
--- OUTSIDE RECORDS SUMMARY | 2022-01-29 04:11 | XMS_ITS | Encounter Summary ---
:1965 Author Organization [facility] Address [address] [place] [address] Care Team Providers Name Role Phone Norma Kenny APRN, C.N.P. Primary Care Provider [phone] Reason for Visit Reason Comments Med Refill Encounter Details Date Type Department Care Team Description 06/16/2021 Refill Department of Family Medicine Reuben Rodrigues APRN, Med Refill in [facility] cristina C.N.P., D.N.P. 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 PCP - General 09/12/[address] [place] [address] documented as of this encounter
--- OUTSIDE RECORDS SUMMARY | 2022-01-29 04:11 | XMS_ITS | Encounter Summary ---
:1965 Author Organization [facility] Address [address] [place] [address] Care Team Providers Name Role Phone Norma Kenny APRN C.N.P. Primary Care Provider [phone] Reason for Visit Reason Comments Medication Question Encounter Details Date Type Department Care Team Description 06/15/2021 Clinical Communication Department of Norma Kenny dication Question Family Medicine in STEVEN Salas [place], C.N.P. [place] [address] [place] [phone] Social History Tobacco Use Types Packs/Day Years [...] How often do you attend baptism or orthodoxy More than 4 time s [...] Date Recorded Male 03/25/2018 1:01 PM INFORMATICS PHYSICIAN LIAISON documented as of this encounter Miscellaneous Notes Telephone Encounter - May Lua R.N. - 06/15/2021 2:42 PM CDT Pt has been taking Ibuprofen 600mg TID with no relief. He would like to try prescription Naproxen asyou recommended. Please send Rx to [facility] in [employer] [facility] Telephone Encounter - Nasrin Rodrigues APRN, C.N.P., [...] Surgery Madyson Rosa, DNikhilONikhil [address] [facility] [place] [phone] (Wo rk) documented as of this encounter Visit Diagnoses Diagnosis Pain Low Back Chronic - Primary documented in this encounter Additional Health Concerns Assessment Noted Time PHQ-9 Depression Total Score: 4 03/02/2021 10:28 AM CS T documented as of this encounter Care Teams Tankman Relationship Specialty Start Date End Date Norma Kenny APRN, C.N.P. PCP - General 09/12/[address] [place] [address] documented as of this encounter
--- OUTSIDE RECORDS SUMMARY | 2022-01-29 04:11 | XMS_ITS | Encounter Summary ---
:1965 Author Organization [facility] Address [address] [place] [address] Care Team Providers Name Role Phone Norma Kenny APRN C.N.P. Primary Care Provider [phone] Reason for Referral Outpatient (Routine) - Closed Specialty Diagnoses / Referred By Contact Referred To Contact Procedures Physical Medicine and Diagnoses Radiculopathy Lumbar Patrizia Moura, [facility] STEVEN, C.N.P. [address] [place] [address] Referral ID Status Reason Start Date Expiration Date Visits Requ ested Visits Authorized [id number] Closed 05/04/2021 05/04/2022 1 1 AL DIRECTOR AIR AND CLIMATE CHANGE Encounter Details Date Type Department Care Team Description 05/04/2021 Orders Only Department of [facility] Patrizia Moura, Radi culopathy Lumbar Medicine in [place], C.N.P. (Primary Dx) John Alarcon [address] [place] [phone] Social History Tobacco Use Types Packs/Day Years [...] How often do you attend gnosticist or sabianist More than 4 time s [...] at Date Recorded Male 03/25/2018 1:01 PM GLOBAL DIRECTOR AIR AND CLIMATE CHANGE documented as of this encounter Plan of Treatment Upcoming Encounters Date Type Specialty Care Team Description 02/15/2022 Office Visit Orthopedic Surgery RavinnyMadyson haq, D.ONikhil [address] [place], [place] [phone] (Wo rk) Scheduled Referrals Name Type Priority [...] documented as of this encounter Care Teams Customer Facilities Supervisor Relationship Specialty Start Date End Date Norma Kenny, SEAWEED HARVESTER, C.N.P. PCP - General 09/12/[address] [place] [address] documented as of this encounter
--- OUTSIDE RECORDS SUMMARY | 2022-01-29 04:11 | XMS_ITS | Encounter Summary ---
:1965 Author Organization [facility] Address [address] [place] [address] Care Team Providers Name Role Phone Norma Kenny APRN, C.N.P. Primary Care Provider [phone] Reason for Referral Appointment Request (Routine) - Closed Specialty Diagnoses / Procedures Referred By Contact Refer red To Contact Diagnoses Norma Lopez APRN, Procedures CBC without Differential C.N.P. [address] [place] [address] Referral ID Status Reason Start Date Expiration Date Visits Requ ested Visits Authorized [id number] Closed 04/05/2021 04/05/2022 1 1 CE BOOKING OFFICER Reason for Visit Appointment Request (Routine) - Closed Specialty Diagnoses / Procedures Referred By Contact Refer red To Contact Diagnoses Norma Lopez APRN, Procedures CBC without Differential C.N.P. [address] [place] [address] Referral ID Status Reason Start Date Expiration Date Visits Requ ested Visits Authorized [id number] Closed 04/05/2021 04/05/2022 1 1 Encounter Details Date Type Department Care Team Description 04/17/2021 Hospital Encounter Department of Laboratory Chase Kenny, Fatigue Medicine in [place], STEVEN, C. N.P. [place] [address] [place] [address] [facility] [address] [phone] Social History Tobacco Use Types Packs/Day Years [...] How often do you attend baptist or congregation More than 4 time s [...] at Date Recorded Male 03/25/2018 1:01 PM POLICE BOOKING OFFICER documented as of this encounter Medications [...] Kenny APRN, C.N.P. - 04/20/2021 7:53 AM POLICE BOOKING OFFICER See below. CE BOOKING OFFICER Result Encounter Note - Norma Kenny APRN, C.N.P. - 04/20/2021 7:52 AM POLICE BOOKING OFFICER No he should hold off on Sudafed as well until I see him next. DEBRA Conroy CE BOOKING OFFICER Result Encounter Note - Norma Kenny APRN, C.N.P. - 04/19/2021 7:43 AM POLICE BOOKING OFFICER Patient should hold ALL tylenol, aspirin, and alcohol until we see him again on 05/01 and recheck labs. Follow up sooner if any concerns. Norma Conroy CE BOOKING OFFICER Result Encounter Note - Norma Kenny APRN, C.N.P. - 04/17/2021 3:58 PM POLICE BOOKING OFFICER Twin's platelets are low and his liver [...] the next week if needed. Thanks, TK CE BOOKING OFFICER documented in this encounter Plan of Treatment Upcoming Encounters Date Type Specialty Care Team Description 02/15/2022 Office Visit Orthopedic Surgery RavinnjMadyson haq, D.O. [address] [place], [place] [phone] (Wo rk) documented as of this encounter Procedures Procedure Name Priority Date/Time Associated Comments Diagnosis CBC WITHOUT Routine 04/17/2021 10:06 Fatigue Results for this DIFFERENTIAL, B AM POLICE BOOKING OFFICER procedure ar e in the results section. THYROID-STIMULATING Routine 04/17/2021 10:06 Fatigue Resu lts for this HORMONE-SENSITIVE AM POLICE BOOKING OFFICER procedure are in (S-TSH) the results section. HEMOGLOBIN A1C, B Routine 04/17/2021 10:06 Fatigue Result s for this AM POLICE BOOKING OFFICER procedure are i n the results section. COMPREHENSIVE Routine 04/17/2021 10:06 Fatigue Results fo r this METABOLIC PANEL, S/P AM POLICE BOOKING OFFICER procedu re are in the results section. documented in this encounter Results S-TSH (Thyroid-Stimulating Hormone - Sensitive) (04/17/2021 10:06 AM POLICE BOOKING OFFICER) P athologist Signature TSH, Sensitive 1.5 0.3 - 4.2 04/17/2021 NPRG mIU/L 12:20 PM POLICE BOOKING OFFICER Specimen Anatomical Collection Method Collection Time Receive d Time (Source) Location / / Volume Laterality Blood (Blood, 04/17/2021 10:06 04/17/2021 Venous) AM POLICE BOOKING OFFICER 11:36 AM POLICE BOOKING OFFICER Caridad Adams APRN.N.P. LAB BLOOD ADD-ON Performing Organization Address City/State/ZIP Code Phon e Number [address] [place] [address] Hemoglobin A1c (04/17/2021 10:06 AM POLICE BOOKING OFFICER) athologist Signature Hemoglobin A1c, 5.4 4.2 - 5.6 04/17/2021 NPRG B % 12:29 PM POLICE BOOKING OFFICER Specimen Anatomical Collection Method Collection Time Receive d Time (Source) Location / / Volume Laterality Blood (Blood, 04/17/2021 10:06 04/17/2021 Venous) AM POLICE BOOKING OFFICER 11:36 AM POLICE BOOKING OFFICER Viridiana Adams APRNN.P. LAB BLOOD ADD-ON Performing Organization Address City/State/[facility] Code Phon e Number [place] [phone] [place] [address] (ABNORMAL) Comprehensive Metabolic Panel (04/17/2021 10:06 AM POLICE BOOKING OFFICER) athologist Signature Potassium, P 3.8 3.6 - 5.2 04/17/2021 NPRG mmol/L 12:25 PM POLICE BOOKING OFFICER Sodium, P 135 135 - 145 04/17/2021 NPRG mmol/L 12:25 PM POLICE BOOKING OFFICER Chloride, P 93 (L) 98 - 107 04/17/2021 NPRG mmol/L 12:25 PM POLICE BOOKING OFFICER Bicarbonate, P 27 22 - 29 04/17/2021 NPRG mmol/L 12:25 PM POLICE BOOKING OFFICER Anion Gap, P 15 7 - 15 04/17/2021 NPRG 12:25 PM POLICE BOOKING OFFICER BUN (Blood Urea 14 8 - 24 04/17/2021 NPRG Nitrogen), P mg/dL 12:25 PM POLICE BOOKING OFFICER Creatinine 0.78 0.74 - 04/17/2021 NPRG 1.35 mg/dL 12:25 PM POLICE BOOKING OFFICER eGFR-Black/Afri >90 >=60 04/17/2021 NPRG can Tajik mL/min/BSA 12:25 PM POLICE BOOKING OFFICER Comment: ----ADDITIONAL INFORMATION---- Estimated GFR calculated using the 2009 CKD_EPI creatinine equation. eGFR Non-Black/ >90 >=60 mL/min/BSA 04/17/2021 12:25 PM POLICE BOOKING OFFICER NPRG Comment: ----ADDITIONAL INFORMATION---- Estimated GFR calculated using the 2009 CKD_EPI creatinine equation. Calcium, Total, P 8.9 8.6 - 10.0 mg/dL 04/17/2021 12:2 5 PM NPRG POLICE BOOKING OFFICER Glucose, P 121 70 - 140 mg/dL 04/17/2021 12:25 PM NPRG POLICE BOOKING OFFICER Protein, Total, P 7.6 6.3 - 7.9 g/dL 04/17/2021 12:25 PM NPRG POLICE BOOKING OFFICER Albumin, P 4.3 3.5 - 5.0 g/dL 04/17/2021 12:25 PM NPRG POLICE BOOKING OFFICER Aspartate Aminotransferase 265 (H) 8 - 48 U/L 04/17/2021 1 2:25 PM NPRG (AST), P POLICE BOOKING OFFICER Alkaline Phosphatase, P 97 40 - 129 U/L 04/17/2021 12 :25 PM NPRG POLICE BOOKING OFFICER Alanine Aminotransferase 150 (H) 7 - 55 U/L 04/17/2021 12: 25 PM NPRG (ALT), P POLICE BOOKING OFFICER Bilirubin, Total, P 1.6 (H) <=1.2 mg/dL 04/17/2021 12:25 P M NPRG POLICE BOOKING OFFICER Specimen Anatomical Collection Method Collection Time Receive d Time (Source) Location / / Volume Laterality Blood (Blood, 04/17/2021 10:06 04/17/2021 Venous) AM POLICE BOOKING OFFICER 11:36 AM POLICE BOOKING OFFICER Norma Kenny APRN, C.N.P. LAB BLOOD ADD-ON Performing Organization Address City/State/ZIP Code Phon e Number [facility] [address] [place], [place] [address] [place] [address] [place] [address] [facility] [address] (ABNORMAL) CBC without Differential (04/17/2021 10:06 AM POLICE BOOKING OFFICER) [facility] gist Method Time Signature Hemoglobin 14.0 13.2 - 04/17/2021 NPRG 16.6 g/dL 1:41 PM POLICE BOOKING OFFICER Hematocrit 40.5 38.3 - 04/17/2021 NPRG 48.6 % 1:41 PM POLICE BOOKING OFFICER Erythrocytes 4.08 (L) 4.35 - 04/17/2021 NPRG 5.65 1:41 PM POLICE BOOKING OFFICER x10(12)/L MCV 99.3 (H) 78.2 - 04/17/2021 NPRG 97.9 fL 1:41 PM POLICE BOOKING OFFICER RBC Distrib Width 12.6 11.8 - 04/17/2021 NPRG 14.5 % 1:41 PM POLICE BOOKING OFFICER Platelet Count 81 (L) 135 - 317 04/17/2021 NPRG x10(9)/L 1:41 PM POLICE BOOKING OFFICER Leukocytes 5.2 3.4 - 9.6 04/17/2021 NPRG x10(9)/L 1:41 PM POLICE BOOKING OFFICER Specimen Anatomical Collection Method Collection Time Receive d Time (Source) Location / / Volume Laterality Blood (Blood, 04/17/2021 10:06 04/17/2021 Venous) AM POLICE BOOKING OFFICER 11:36 AM POLICE BOOKING OFFICER Norma Kenny APRN, C.N.P. LAB BLOOD ADD-ON Performing Organization Address City/State/ZIP Code Phon e Number [facility]- [address] [place], [place] [address] [address] [facility] [place] [address] [facility] [address] [place] documented in this encounter Visit Diagnoses Diagnosis Fatigue documented in this encounter Additional Health Concerns Assessment Noted Time PHQ-9 Depression Total Score: 4 03/02/2021 10:28 AM CS T documented as of this encounter Care Teams Supervisor Liquefaction Relationship Specialty Start Date End Date Norma Kenny APRN, C.N.P. PCP - General 09/12/[address] [place] [address] documented as of this encounter
--- OUTSIDE RECORDS SUMMARY | 2022-01-29 04:11 | XMS_ITS | Encounter Summary ---
:1965 Author Organization [facility] Address [address] [place] [address] Care Team Providers Name Role Phone Norma Kenny APRN, C.NGregg Primary Care Provider [phone] Reason for Referral Outpatient (Routine) - Closed Specialty Diagnoses / Procedures Referred By Contact Refer red To Contact Diagnoses Radiculopathy Lumbar Spondylosis Lumbar Without Myelopathy Melchor Westbrook D.O. [facility] Region Procedures FL Lumbar Spine Facet Injection Bilateral UT INJ FACET JT LUMB/SAC 1 LVL UT INJ FACET JT LUMB/SAC [address] [place] [phone] Referral ID Status Reason Start Date Expiration Date Visits Requ ested Visits Authorized [id number] Closed 05/09/2021 05/09/2022 1 1 CTOR OF DISTRIBUTION Reason for Visit Outpatient (Routine) - Closed Specialty Diagnoses / Procedures Referred By Contact Refer red To Contact Diagnoses Radiculopathy Lumbar Spondylosis Lumbar Without Myelopathy Melchor Westbrook D.O. [facility] Region Procedures FL Lumbar Spine Facet Injection Bilateral UT INJ FACET JT LUMB/SAC 1 LVL UT INJ FACET JT LUMB/SAC [address] [place] [phone] Referral ID Status Reason Start Date Expiration Date Visits Requ ested Visits Authorized [id number] Closed 05/09/2021 05/09/2022 1 1 Encounter Details Date Type Department Care Team Description 05/28/2021 Hospital Encounter Department of Melchor Westbrook D.O. [address] [place] [phone] Radiculopathy Lumbar; Radiology, [place] Karina Griffin D.O. [address] [place] [phone] Spondylosis Lumbar Without Myelopathy [facility], [place], [place] [address] [place] [address] Social History Tobacco Use Types [...] How often do you attend hoahaoism or congregation More than 4 time s [...] Date Recorded Male 03/25/2018 1:01 PM DIRECTOR OF DISTRIBUTION documented as of this encounter Medications at [...] method: local infiltration Local infiltrate type: lidocaine CTOR OF DISTRIBUTION documented in this encounter Plan of Treatment Upcoming Encounters Date Type Specialty Care Team Description 02/15/2022 Office Visit Orthopedic Surgery Madyson Rosa D.ONikhil [address] [place], [place] [phone] (Wo rk) documented as of this encounter Procedures Procedure Name Priority Date/Time Associated Diagnosis Comme nts FL LUMBAR SPINE RAD - Routine 05/28/2021 3:05 Radiculopathy Juhi mbar Results for this FACET INJECTION (most inpatients PM DIRECTOR OF DISTRIBUTION Spondylosis Lumbar pr ocedure are in BILATERAL and all Without Myelopathy the resul ts outpatients) section. documented in this encounter Results FL LUMBAR SPINE FACET INJECTION BILATERAL (05/28/2021 3:05 PM DIRECTOR OF DISTRIBUTION) Specimen (Source) Anatomical Location Collection Method / Collectio n Time Received Time / Laterality Volume Narrative [address] - 05/28/2021 3:13 PM DIRECTOR OF DISTRIBUTION Karina Griffin D.O. ? 05/28/2021 ??3:14 PM [...] Address City/State/ZIP Code Phon e Number [phone] [facility] documented in this encounter Visit Diagnoses Diagnosis Radiculopathy Lumbar Spondylosis Lumbar Without Myelopathy documented in this encounter Administered Medications Inactive Administered Medications - up to 3 most recent administrations Medication Order MAR Action Action Date Dose Rate Site dexAMETHasone injection 10 mg Given 05/28/2021 3:13 PM DIRECTOR OF DISTRIBUTION 10 mg (DECADRON) 10 mg, injection, One-Time Injection, Starting on Fri05/28/21 at 1513, For 1 dose iohexoL 300 mg iodine/mL solution 2 mL Given 05/28/2021 3:13 PM DIRECTOR OF DISTRIBUTION 2 mL (OMNIPAQUE) 2 mL, injection, One-Time Injection, Starting on Fri05/28/21 at 1513, For 1 dose lidocaine 10 mg/mL (1 %) injection 3 mL Given 05/28/2021 3:13 PM DIRECTOR OF DISTRIBUTION 3 mL (XYLOCAINE) 3 mL, injection, One-Time Injection, Starting on Fri05/28/21 at 1513, For 1 dose documented in this encounter Additional Health Concerns Assessment Noted Time PHQ-9 Depression Total Score: 4 03/02/2021 10:28 AM CS T documented as of this encounter Care Teams Mail Agent Relationship Specialty Start Date End Date Norma Kenny APRN, C.N.P. PCP - General 09/12/[address] [place] [phone] documented as of this encounter
--- OUTSIDE RECORDS SUMMARY | 2022-01-29 04:11 | XMS_ITS | Encounter Summary ---
:1965 Author Organization [facility] Address [address] [place] [address] Care Team Providers Name Role Phone Norma Kenny APRN, C.N.P. Primary Care Provider [phone] Reason for Visit Reason Comments Med Refill Encounter Details Date Type Department Care Team Description 04/08/2021 Refill [facility], Rio Canchola M.D. Med Refill [facility], [facility] on Floor [address] [place] [phone] (Wo rk) Social History Tobacco Use Types [...] How often do you attend spiritism or taoism More than 4 time s per year [...] at Date Recorded Male 03/25/2018 1:01 PM DISTRIBUTION CENTER MANAGER documented as of this encounter Miscellaneous Notes Addendum Note - Lorraine Cosby - 04/11/2021 11:50 AM DISTRIBUTION CENTER MANAGER Addended by: LORRAINE COSBY on: 04/11/2021 11:50 AM Modules accepted: Orders RIBUTION CENTER MANAGER Telephone Encounter - Lorraine Cosby - 04/11/2021 11:43 AM CST I have left pt a detailed message regarding this. I have pended the medication for Norma to approve RIBUTION CENTER MANAGER documented in this encounter Plan of Treatment Upcoming Encounters Date Type Specialty Care Team Description 02/15/2022 Office Visit Orthopedic Surgery Madyson Rosa il, D.ONikhil [address] [place], [place] [phone] (Wo rk) documented as of this encounter Visit Diagnoses Not on filedocumented in this encounter Additional Health Concerns Assessment Noted Time PHQ-9 Depression Total Score: 4 03/02/2021 10:28 AM CS T documented as of this encounter Care Teams Network Applications Specialist Relationship Specialty Start Date End Date Norma Kenny APRN, C.N.P. PCP - General 09/12/[address] [place] [address] documented as of this encounter
--- OUTSIDE RECORDS SUMMARY | 2022-01-29 04:11 | XMS_ITS | Encounter Summary ---
:1965 Author Organization [facility] Address [address] [place] [address] Care Team Providers Name Role Phone Norma Kenny APRN C.N.P. Primary Care Provider [phone] Reason for Visit MRI/CAT/PET Scan (Routine) - Closed Specialty Diagnoses / Procedures Referred By Contact Refer red To Contact Radiology Diagnoses Radiculopathy Lumbar [facility] Region Procedures MR Lumbar Spine without IV Contrast AR MRI [facility]B [facility] [address] [place] [address] Referral ID Status Reason Start Date Expiration Date Visits Requ ested Visits Authorized [id number] Closed 05/01/2021 05/01/2022 1 1 Encounter Details Date Type Department Care Team Description 05/04/2021 Ancillary Procedure Department of Norma Kenny ulopathy Lumbar Radiology, Jacqueline Salas APRN [facility], in C.N.P. [place], [place] [address] [place] [phone] Social History Tobacco Use [...] How often do you attend yazdanism or latter-day More than 4 time s [...] at Date Recorded Male 03/25/2018 1:01 PM FOOTBALL PAD REPAIRER documented as of this encounter Miscellaneous Notes Result Encounter Note - Patrizia Moura APRN, C.N.P. - 05/04/2021 5:13 PM FOOTBALL PAD REPAIRER I called and answered patient's questions. He will schedule an appointment with PM and R. BALL PAD REPAIRER Result Encounter Note - Patrizia Moura APRN, C.N.P. 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 I recommend continuing with the medrol dose pack given to you by Norma Kenny CNP. I also recommended following up with PM and Rto further evaluation and treatment of the low back pain. Order placed. Marycarmen, SF BALL PAD REPAIRER documented in this encounter Plan of Treatment Upcoming Encounters Date Type Specialty Care Team Description 02/15/2022 Office Visit Orthopedic Surgery Madyson Rosa, Jarad.O. [address] [place], [place] [phone] (Wo rk) documented as of this encounter Procedures Procedure Name Priority Date/Time Associated Diagnosis Comme nts MR LUMBAR SPINE RAD - Routine 05/04/2021 11:26 Radiculopathy Lumbar Results for this WITHOUT IV (most inpatients AM FOOTBALL PAD REPAIRER procedure a re in CONTRAST and all the results outpatients) section. documented in this encounter Results MR Lumbar Spine without IV Contrast (05/04/2021 11:26 AM FOOTBALL PAD REPAIRER) Anatomical Region Laterality Modality Lumbar Spine, Neuroradiology RST LOS, Neuroradiology N/A Magnetic Resonance ARZ LOS, Neuroradiology FLA LOS Specimen (Source) Anatomical Collection Method Collection Time Re ceived Time Location / / Volume Laterality 05/04/2021 11:30 AM FOOTBALL PAD REPAIRER Impressions 05/04/2021 11:33 AM FOOTBALL PAD REPAIRER Degenerative changes of the lumbar spine primarily in the posterior facets at L4-5 and L5-S1 Narrative 05/04/2021 11:33 AM FOOTBALL PAD REPAIRER EXAM: ??MR LUMBAR SPINE WITHOUT IV CONTRAST [...] as of this encounter Care Teams Microfilm Camera Operator Relationship Specialty Start Date End Date Norma Kenny APRN, C.N.P. PCP - General 09/12/[address] [place] [phone] documented as of this encounter
--- OUTSIDE RECORDS SUMMARY | 2022-01-29 04:11 | XMS_ITS | Encounter Summary ---
:[address] [facility] Address [address] [place] [address] Care Team Providers Name Role Phone Norma Kenny APRN C.N.PNikhil Primary Care Provider [phone] Encounter Details Date Type Department Care Team Description 04/25/2021 Clinical Communication Department of Chase Philippe, Medicine in [facility] C.N.[place], [place] [address] [place] [phone] Social History Tobacco Use Types Packs/Day Years [...] How often do you attend sabianism or mu-ism More than 4 time s [...] at Date Recorded Male 03/25/2018 1:01 PM ACUTE DIALYSIS REGISTERED NURSE documented as of this encounter Miscellaneous Notes Telephone Encounter - Jeannette Bernardo L.P.N. - 05/01/2021 4:46 PM ACUTE DIALYSIS REGISTERED NURSE Pt seen in clinic today and Pantoprazole was addressed E DIALYSIS REGISTERED NURSE Telephone Encounter - Jeannette Bernardo L.P.N. - 04/27/2021 3:48 PM ACUTE DIALYSIS REGISTERED NURSE Reminder to discuss pantoprazole during intake on 05/01 placed in the notes on schedule of 05/01 E DIALYSIS REGISTERED NURSE Telephone Encounter - Norma Kenny APRN, C.N.P. - 04/27/2021 9:11 AM ACUTE DIALYSIS REGISTERED NURSE Can you ask pt about this during rooming med rec on Monday 05/01 when we see him? Not sure if and howmuch he is taking. Thanks, tk E DIALYSIS REGISTERED NURSE Telephone Encounter - Marisela Chavez - 04/25/2021 [...] Keyshawn HERMAN. Thank you, The OPPA Team E DIALYSIS REGISTERED NURSE documented in this encounter Plan of Treatment Upcoming Encounters Date Type Specialty Care Team Description 02/15/2022 Office Visit Orthopedic Surgery RavinsdMadyson haq, DNikhilONikhil [address] [place], [place] [phone] (Wo rk) documented as of this encounter Visit Diagnoses Not on filedocumented in this encounter Additional Health Concerns Assessment Noted Time PHQ-9 Depression Total Score: 4 03/02/2021 10:28 AM CS T documented as of this encounter Care Teams Production Manufacturing Worker Relationship Specialty Start Date End Date Norma Kenny, SOFTWARE INTERN, C.N.P. PCP - General 09/12/[address] [place] [address] documented as of this encounter
--- OUTSIDE RECORDS SUMMARY | 2022-01-29 04:11 | XMS_ITS | Encounter Summary ---
:[address] [facility] Address [address] [place] [address] Care Team Providers Name Role Phone Norma Kenny APRN, C.N.P. Primary Care Provider [phone] Encounter Details Date Type Department Care Team Description 05/01/2021 Orders Only Department of Family Norma Kenny, Medicine in [facility] STEVEN, C. N.P. [place] [address] [place] [phone] (Wo rk) Social History Tobacco Use Types [...] How often do you attend mormonism or taoism More than 4 time s [...] at Date Recorded Male 03/25/2018 1:01 PM RAW SHELLFISH PREPARER documented as of this encounter Plan of Treatment Upcoming Encounters Date Type Specialty Care Team Description 02/15/2022 Office Visit Orthopedic Surgery Madyson Rosa il, D.O. [address] [place], [place] [phone] (Wo rk) documented as of this encounter Visit Diagnoses Not on filedocumented in this encounter Additional Health Concerns Assessment Noted Time PHQ-9 Depression Total Score: 4 03/02/2021 10:28 AM CS T documented as of this encounter Care Teams Director Dermatology Relationship Specialty Start Date End Date Noram Kenny, STEVEN, C.N.P. PCP - General 09/12/[address] [place] [phone] documented as of this encounter
--- OUTSIDE RECORDS SUMMARY | 2022-01-29 04:11 | XMS_ITS | Encounter Summary ---
:1965 Author Organization [facility] Address [address] [place] [address] Care Team Providers Name Role Phone Norma Kenny APRN, C.N.P. Primary Care Provider [phone] Reason for Visit Reason Comments Med Refill Encounter Details Date Type Department Care Team Description 05/01/2021 Refill Department of Family Medicine Caden Kenny APRN, Med Refill in [facility] so C.N.P. [address] [place] [address] [place] [phone] (Wo rk) Social History Tobacco Use Types [...] How often do you attend zoroastrianism or rastafarian More than 4 time s [...] at Date Recorded Male 03/25/2018 1:01 PM CURATOR HERBARIUM documented as of this encounter Miscellaneous Notes Telephone Encounter - Karina Randle R.M.A. - 05/01/2021 8:41 AM CURATOR HERBARIUM Name of medication: Requested Prescriptions Pending Prescriptions [...] Appt: Last Appointment: 04/03/2021 Future appointment 05/01/21 TOR HERBARIUM documented in this encounter Plan of Treatment Upcoming Encounters Date Type Specialty Care Team Description 02/15/2022 Office Visit Orthopedic Surgery Madyson Rosa, D.ONikhil [address] [place], [place] [phone] (Wo rk) documented as of this encounter Visit Diagnoses Diagnosis Hyperlipidemia documented in this encounter Additional Health Concerns Assessment Noted Time PHQ-9 Depression Total Score: 4 03/02/2021 10:28 AM CS T documented as of this encounter Care Teams Furnace Clerk Relationship Specialty Start Date End Date Norma Kenny, STEVEN, C.N.P. PCP - General 09/12/[address] [place] [address] documented as of this encounter
--- OUTSIDE RECORDS SUMMARY | 2022-01-29 04:11 | XMS_ITS | Encounter Summary ---
:1965 Author Organization [facility] Address [address] [place] [address] Care Team Providers Name Role Phone Norma Kenny APRN, C.N.P. Primary Care Provider [phone] Reason for Visit Reason Comments Med Refill Encounter Details Date Type Department Care Team Description 04/06/2021 Refill Department of Family Medicine Caden Kenny APRN, Med Refill in [facility] so C.N.P. [address] [place] [address] [place] [phone] (Wo rk) Social History Tobacco Use Types [...] How often do you attend judaism or catholic More than 4 time s [...] at Date Recorded Male 03/25/2018 1:01 PM STRUCTURAL STEEL DETAILER documented as of this encounter Miscellaneous Notes Telephone Encounter - Jeannette Bernardo L.P.N. - 04/06/2021 4:33 PM STRUCTURAL STEEL DETAILER When clarifying pt Sertraline order of 150 mg daily. Pharmacist also states the Omeprazole Bid has been denied. Please advise as appropriate. CTURAL STEEL DETAILER Telephone Encounter - Aliya Cortez R.N. - 04/06/2021 9:02 AM CST Received call from Pharmacy needing clarification on directions for Pantoprazole. Medications statestake 2 tabs (40 mg) po bid. This equals to 80 mg. Per last note, medication clarification given to reflect 40 mg two times a day, CTURAL STEEL DETAILER documented in this encounter Plan of Treatment Upcoming Encounters Date Type Specialty Care Team Description 02/15/2022 Office Visit Orthopedic Surgery Madyson Rosa, D.ONikhil [address] [place], [place] [phone] (Wo rk) documented as of this encounter Visit Diagnoses Diagnosis Gastroesophageal Reflux Disease documented in this encounter Additional Health Concerns Assessment Noted Time PHQ-9 Depression Total Score: 4 03/02/2021 10:28 AM CS T documented as of this encounter Care Teams Machine Bobbin Winder Relationship Specialty Start Date End Date Norma Kenny APRN, C.N.P. PCP - General 09/12/[address] [place] [phone] documented as of this encounter
--- OUTSIDE RECORDS SUMMARY | 2022-01-29 04:11 | XMS_ITS | Encounter Summary ---
:1965 Author Organization [facility] Address [address] [place] [address] Care Team Providers Name Role Phone Norma Kenny APRN C.N.PNikhil Primary Care Provider Encounter Details Date Type Department Care Team Description 04/25/2021 Clinical Communication Department of Chase Philippe, Medicine in [facility], [place] [address] [place] [address] [phone] Social History Tobacco Use Types Packs/Day Years [...] How often do you attend anabaptism or buddhism More than 4 time s per year [...] at Date Recorded Male 03/25/2018 1:01 PM GEOPHYSICS SCIENTIST documented as of this encounter Plan of Treatment Upcoming Encounters Date Type Specialty Care Team Description 02/15/2022 Office Visit Orthopedic Surgery Madyson Rosa il, D.O. [address] [place], [place] [phone] (Wo rk) documented as of this encounter Visit Diagnoses Not on filedocumented in this encounter Additional Health Concerns Assessment Noted Time PHQ-9 Depression Total Score: 4 03/02/2021 10:28 AM CS T documented as of this encounter Care Teams Floral Designer Relationship Specialty Start Date End Date Norma Kenny, STEVEN, C.N.P. PCP - General 09/12/[address] [place] [phone] documented as of this encounter
--- OUTSIDE RECORDS SUMMARY | 2022-01-29 04:11 | XMS_ITS | Encounter Summary ---
:1965 Author Organization [facility] Address [address] [place] [address] Care Team Providers Name Role Phone Norma Kenny APRN, C.N.P. Primary Care Provider [phone] Reason for Visit Reason Comments Med Refill Encounter Details Date Type Department Care Team Description 05/17/2021 Refill [facility], Rio Canchola M.D. Med Refill [facility], [facility] on Floor [address] [place] [phone] (Wo rk) Social History Tobacco Use Types [...] How often do you attend gnosticist or latter-day More than 4 time s [...] Date Recorded Male 03/25/2018 1:01 PM TECHNICAL STAFF ASSISTANT documented as of this encounter Plan of Treatment Upcoming Encounters Date Type Specialty Care Team Description 02/15/2022 Office Visit Orthopedic Surgery Madyson Rosa il, D.ONikhil [address] [place], [place] [phone] (Wo rk) documented as of this encounter Visit Diagnoses Not on filedocumented in this encounter Additional Health Concerns Assessment Noted Time PHQ-9 Depression Total Score: 4 03/02/2021 10:28 AM CS T documented as of this encounter Care Teams Job Placement Specialist Relationship Specialty Start Date End Date Norma Kenny APRN, C.N.P. PCP - General 09/12/[address] [facility] [place] [address] documented as of this encounter
--- OUTSIDE RECORDS SUMMARY | 2022-01-29 04:11 | XMS_ITS | Encounter Summary ---
:1965 Author Organization [facility] Address [address] [place] [address] Care Team Providers Name Role Phone Norma Kenny APRN, C.N.P. Primary Care Provider [phone] Encounter Details Date Type Department Care Team Description 04/20/2021 Orders Only [facility] - Marlena Marr [address] [place] [address] Social History Tobacco Use [...] How often do you attend hindu or advent More than 4 time s [...] at Date Recorded Male 03/25/2018 1:01 PM SOFTWARE SPECIALIST documented as of this encounter Plan of Treatment Upcoming Encounters Date Type Specialty Care Team Description 02/15/2022 Office Visit Orthopedic Surgery Madyson Rosa, DaydayONikhil [address] [facility] [place] [phone] (Wo rk) documented as of this encounter Visit Diagnoses Not on filedocumented in this encounter Additional Health Concerns Assessment Noted Time PHQ-9 Depression Total Score: 4 03/02/2021 10:28 AM CS T documented as of this encounter Care Teams Fishing Lure Assembler Relationship Specialty Start Date End Date Norma Kenny, STEVEN, C.N.P. PCP - General 09/12/[address] [place] [address] documented as of this encounter
--- OUTSIDE RECORDS SUMMARY | 2022-01-29 04:11 | XMS_ITS | Encounter Summary ---
:1965 Author Organization [facility] Address [address] [place] [address] Care Team Providers Name Role Phone Norma Kenny APRN, C.N.P. Primary Care Provider [phone] Encounter Details Date Type Department Care Team Description 04/25/2021 Orders Only Pharmacy Prior Auth RO Norma Kenny, STEVEN C.N.P. [address] [place] [address] (Wo rk) Social History Tobacco [...] How often do you attend yarsani or hinduism More than 4 time s [...] Date Recorded Male 03/25/2018 1:01 PM MEDICAL TECHNOLOGIST PRN documented as of this encounter Plan of Treatment Upcoming Encounters Date Type Specialty Care Team Description 02/15/2022 Office Visit Orthopedic Surgery Madyson Rosa D.ONikhil [address] [place], [place] [phone] (Wo rk) documented as of this encounter Visit Diagnoses Not on filedocumented in this encounter Additional Health Concerns Assessment Noted Time PHQ-9 Depression Total Score: 4 03/02/2021 10:28 AM CS T documented as of this encounter Care Teams Beef Cattle Specialist Relationship Specialty Start Date End Date Norma Kenny, STEVEN, C.N.P. PCP - General 09/12/[address] [place] [address] documented as of this encounter
--- OUTSIDE RECORDS SUMMARY | 2022-01-29 04:11 | XMS_ITS | Encounter Summary ---
:1965 Author Organization [facility] Address [address] [place] [address] Care Team Providers Name Role Phone Norma Kenny APRN, C.N.P. Primary Care Provider [phone] Reason for Visit Reason Comments Med Refill Encounter Details Date Type Department Care Team Description 03/27/2021 Refill Department of Family Medicine Efe Weller D.O. Med Refill in [facility] [address] [place] [phone] (Wo rk) Social History Tobacco Use Types [...] How often do you attend mosque or buddhism More than 4 time s [...] at Date Recorded Male 03/25/2018 1:01 PM PEDIATRIC RN documented as of this encounter Miscellaneous Notes Telephone Encounter - Jeannette Bernardo L.P.N. - 04/03/2021 4:03 PM PEDIATRIC RN Pt in clinic today. ATRIC RN Telephone Encounter - Jeannette Bernardo L.P.N. - 03/29/2021 1:07 PM PEDIATRIC RN noted ATRIC RN Telephone Encounter - Norma Kenny APRN, C.N.P. - 03/28/2021 9:08 PM PEDIATRIC RN I will [facility] Thanks, TK ATRIC RN Telephone Encounter - Jeannette Bernardo L.P.N. - 03/27/2021 3:11 PM PEDIATRIC RN Unable to refill per protocol: Name of Medications Needing Refill: odansetron Last Refill Date: 03/12/21 Additional Information: Last / Future Appointment: [place] 03/02/2021 Future OV 04/03/2020 ATRIC RN documented in this encounter Plan of Treatment Upcoming Encounters Date Type Specialty Care Team Description 02/15/2022 Office Visit Orthopedic Surgery Madyson Rosa, D.O. [address] [place], [place] [phone] (Wo rk) documented as of this encounter Visit Diagnoses Diagnosis Nausea documented in this encounter Additional Health Concerns Assessment Noted Time PHQ-9 Depression Total Score: 4 03/02/2021 10:28 AM CS T documented as of this encounter Care Teams Weight Tester Relationship Specialty Start Date End Date Norma Kenny, STEVEN, C.N.P. PCP - General 09/12/[address] [place] [phone] documented as of this encounter
--- OUTSIDE RECORDS SUMMARY | 2022-01-29 04:11 | XMS_ITS | Encounter Summary ---
:1965 Author Organization [facility] Address [address] [place] [address] Care Team Providers Name Role Phone Norma Kenny APRN, C.N.P. Primary Care Provider Encounter Details Date Type Department Care Team Description 04/06/2021 Orders Only Pharmacy Prior Auth RO Norma Kenny, STEVEN C.N.P. 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 PCP - General 09/12/[address] [place] [address] documented as of this encounter
--- OUTSIDE RECORDS SUMMARY | 2022-01-29 04:11 | XMS_ITS | Encounter Summary ---
:1965 Author Organization [facility] Address [address] [place] [address] Care Team Providers Name Role Phone Norma Kenny APRN CNikhilNNikhilPNikhil Primary Care Provider [phone] Reason for Referral Outpatient (Routine) - Closed Specialty Diagnoses / Procedures Referred By Contact Refer red To Contact Diagnoses Radiculopathy Lumbar Spondylosis Lumbar Without Myelopathy Melchor Westbrook [facility]. [facility] Region Procedures FL Lumbar Spine Facet Injection Bilateral IA INJ FACET JT LUMB/SAC 1 LVL IA INJ FACET JT LUMB/SAC 2 LVL [address] [place] [address] Referral ID Status Reason Start Date Expiration Date Visits Requ ested Visits Authorized [id number] Closed 05/09/2021 05/09/2022 1 1 utpatient (Routine) - Closed Specialty Diagnoses / Referred By Contact Referred To Contact Procedures Physical Medicine and Melchor Westbrook [facility] Region Rehabilitation D.O. [address] [place] [address] Referral ID Status Reason Start Date Expiration Date Visits Requ ested Visits Authorized [id number] Closed 05/09/2021 05/09/2022 1 1 Scheduling Instructions After injection utpatient (Routine) - Closed Specialty Diagnoses / Procedures Referred By Contact Refer red To Contact Diagnoses Gluteal Tendinitis Right Hip Gluteal Tendinitis Left Hip Melchor Westbrook D.O. [facility] Region Procedures PMR Peripheral injection/USGI (Procedure Only) [address] [place] [address] Referral ID Status Reason Start Date Expiration Date Visits Requ ested Visits Authorized [id number] Closed 05/09/2021 05/09/2022 1 1 SNAPPER Reason for Visit Reason Comments Back Pain Outpatient (Routine) - Closed Specialty Diagnoses / Referred By Contact Referred To Contact Procedures Physical Medicine and Diagnoses Radiculopathy Lumbar Patrizia Moura, [facility] Region Rehabilitation MARKET ANALYSIS DIRECTOR, C.N.P. [address] [place] [address] Referral ID Status Reason Start Date Expiration Date Visits Requ ested Visits Authorized [id number] Closed 05/04/2021 05/04/2022 1 1 Encounter Details Date Type Department Care Team Description 05/09/2021 Comprehensive Visit Department of Physical Pietro, Gluteal Tendinitis Right Hip (Primary Dx); Medicine and Melchor South D.O. Radiculopathy Lumbar; Rehabilitation in [address] [place] [address] Gluteal Te ndinitis Left Hip; 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 documented as of this encounter Last Filed Vital Signs Vital Sign Reading Time Taken Comments Blood Pressure 156/100 05/09/2021 2:11 PM SILK SNAPPER Pulse 87 05/09/2021 2:11 PM SILK SNAPPER Temperature 36 ??C (96.8 ??F) 05/09/2021 2:11 PM SILK SNAPPER Respiratory Rate - - Oxygen Saturation - - Inhaled Oxygen Concentration - - Weight 148 kg (326 lb 1 oz) 05/09/2021 2:11 PM SILK SNAPPER Height - - Body Mass Index 41.85 02/21/2021 12:52 PM SILK SNAPPER documented in this encounter Procedure Notes Melchor [...] Murray Barriers to learning: None Preferred language: Gabonese Learning preferences include: Seeing and doing. 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 Has no pets. Plans to move into [employer] this year after renovation and sell current [...] part in the care of this patient. SNAPPER documented in this encounter Plan of Treatment Upcoming Encounters Date Type Specialty Care Team Description 02/15/2022 Office Visit Orthopedic Surgery Madyson Rosa D.O. [address] [place] [phone] (Wo rk) Scheduled Referrals Name Type Priority Associated Order Schedule Diagnoses Physical Medicine and Outpatient Referral Routine Expected: Rehabilitation office 2021 visit (clinic) (Approximate) , Expires: 08/06/2022 documented as of this encounter Procedures Procedure Name Priority Date/Time Associated Diagnosis Comme nts IA ARTHCS ASP/INJ Routine 05/09/2021 3:19 PM Gluteal Tendiniti s Results for this MJR JT W US SILK SNAPPER Right Hip procedure are in Gluteal Tendinitis the resul ts Left Hip section. documented in this encounter Results FL LUMBAR SPINE FACET INJECTION BILATERAL (05/28/2021 3:05 PM SILK SNAPPER) Specimen (Source) Anatomical Location Collection Method / Collectio n Time Received Time / Laterality Volume Narrative 9000 LOS SWMN - 05/28/2021 3:13 PM SILK SNAPPER Karina Griffin D.O. ? 05/28/2021 ??3:14 PM [...] Code Phon e Number 9000 LOS SWMN IA ARTHCS ASP/INJ MJR JT W (05/09/2021 3:19 PM SILK SNAPPER) Specimen (Source) Anatomical Location Collection Method / Collectio n Time Received Time / Laterality Volume Narrative MMODAL - 05/09/2021 3:19 PM SILK SNAPPER Melchor Westbrook D.O. ? 05/09/2021 ??3:19 PM [...] injection 3 mL Given 05/09/2021 3:19 PM SILK SNAPPER 3 mL (XYLOCAINE) 3 mL, infiltration, One-Time Injection, Starting on Fri05/09/21 at 1519, For 1 dose methylPREDNISolone acetate injection 40 mg Given 05/09/2021 3:19 PM SILK SNAPPER 40 mg (DEPO-Medrol) 40 mg, intra-articular, One-Time Injection, Starting on Fri05/09/21 at 1519, For 1 dose methylPREDNISolone acetate injection 40 mg Given 05/09/2021 3:19 PM SILK SNAPPER 40 mg (DEPO-Medrol) 40 mg, intra-articular, One-Time Injection, Starting on Fri05/09/21 at 1519, For 1 dose documented in this encounter Additional Health Concerns Assessment Noted Time PHQ-9 Depression Total Score: 4 03/02/2021 10:28 AM CS T documented as of this encounter Care Teams Planning Assistant Relationship Specialty Start Date End Date Norma Kenny, STEVEN, C.N.P. PCP - General 09/12/[address] [place] [address] documented as of this encounter
--- OUTSIDE RECORDS SUMMARY | 2022-01-29 04:12 | XMS_ITS | Encounter Summary ---
:1965 Author Organization [facility] Address [address] [place] [address] Care Team Providers Name Role Phone Norma Solis APRN, C.N.P. Primary Care Provider Reason for Visit Reason Comments Med Refill Encounter Details Date Type Department Care Team Description 03/13/2021 Refill Department of Family Medicine Caden Solis APRN, Med Refill in [facility] so C.N.P. 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 - 03/27/2021 1:23 PM MINING TECHNICIAN Were you able to get a hold of the patient regarding his Zoloft dose? 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 Thanks, SF NG TECHNICIAN Telephone Encounter - Jeannette Bernardo L.P.N. - 03/27/2021 1:06 PM MINING TECHNICIAN Unable to refill per protocol: Name of Medications Needing Refill: Lorazepam Last Refill Date: Additional Information: Last / Future Appointment: Last OV 02/21/21 Future OV 04/01/2021 NG TECHNICIAN Telephone Encounter - Jeannette Bernardo L.P.N. - 03/14/2021 4:36 PM MINING TECHNICIAN lmtcb NG TECHNICIAN Telephone Encounter - Norma Solis APRN, C.N.P. - 03/13/2021 9:43 AM MINING TECHNICIAN Please call [facility] and see how he is doing - I received a refill request for the lorazepam - is he still taking this daily? Is he up to 100mg daily of sertraline now? Thanks, TK NG TECHNICIAN Telephone Encounter - Francesco Morejon LNikhilP.N. - 03/13/2021 9:25 AM MINING TECHNICIAN Medication Name:LORazepam (ATIVAN) 1 mg tablet??( Take [...] 4 Last MELODY-7: 8 on 03/02/21 Pharmacy: [id number] [place], [place] NG TECHNICIAN documented in this encounter Plan of Treatment Upcoming Encounters Date Type Specialty Care Team Description 02/15/2022 Office Visit Orthopedic Surgery Madyson Rosa il, D.O. [address] [place], [place] [address] (Wo rk) documented as of this encounter Visit Diagnoses Diagnosis Anxiety documented in this encounter Additional Health Concerns Assessment Noted Time PHQ-9 Depression Total Score: 4 03/02/2021 10:28 AM CS T documented as of this encounter Care Teams Head Miller Relationship Specialty Start Date End Date Norma Solis APRN, C.N.P. PCP - General 09/12/[address] [place] [address] documented as of this encounter
--- OUTSIDE RECORDS SUMMARY | 2022-01-29 04:12 | XMS_ITS | Encounter Summary ---
:1965 Author Organization [facility] Address [address] [place] [address] Care Team Providers Name Role Phone Norma Kenny APRN C.N.P. Primary Care Provider [phone] Reason for Visit Reason Comments Med Refill Lisinopril/HCTZ Encounter Details Date Type Department Care Team Description 12/04/2020 Refill Department of Norma Philippe Me d Refill Medicine in [place], STEVEN, C. N.P. 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 - 12/05/2020 8:30 AM CDT Medication refill Lisinopril/HCTZ Last filled 11/30/20 Last OV 01/18/20 Last Labs 05/21/19 Future appointment None scheduled documented in this encounter Plan of Treatment Upcoming Encounters Date Type Specialty Care Team Description 02/15/2022 Office Visit Orthopedic Surgery Madyson Rosa il, D.O. [address] [place], [place] [address] (Wo rk) documented as of this encounter Visit Diagnoses Diagnosis Hypertension Essential Primary documented in this encounter Additional Health Concerns Assessment Noted Time PHQ-9 Depression Total Score: 2 09/17/2018 9:08 AM CDT documented as of this encounter Care Teams Evp Managing Director Relationship Specialty Start Date End Date Norma Kenny, YIELD IMPROVEMENT ENGINEER, C.N.P. PCP - General 09/12/[address] [place] [address] documented as of this encounter
--- OUTSIDE RECORDS SUMMARY | 2022-01-29 04:12 | XMS_ITS | Encounter Summary ---
:1965 Author Organization [facility] Address [address] [place] [address] Care Team Providers Name Role Phone Norma Kenny APRN, C.N.P. Primary Care Provider [phone] Reason for Visit Reason Comments Weakness - Generalized pt states he has the same we akness in his legs that he had 2 weeks ago. Pt was admitted t o the hospital for 2 days with hyponatremia. Pt denies any pain, just weakness in his legs. Encounter Details Date Type Department Care Team Description 02/19/2021 Emergency [place] [facility] Moira Ambriz Weakn ess General (Primary Dx); Department M.D. Anxiety [address] [facility] [address] [place] [phone] Social History Tobacco Use Types Packs/Day Years [...] How often do you attend anglican or hoahaoism More than 4 time s [...] at Date Recorded Male 03/25/2018 1:01 PM LIFE SCIENCES MANAGER documented as of this encounter Last Filed Vital Signs Vital Sign Reading Time Taken Comments Blood Pressure 154/95 02/19/2021 4:10 PM LIFE SCIENCES MANAGER Pulse 109 02/19/2021 4:10 PM LIFE SCIENCES MANAGER Temperature 37 ??C (98.6 ??F) 02/19/2021 4:06 PM LIFE SCIENCES MANAGER Respiratory Rate 17 02/19/2021 4:06 PM LIFE SCIENCES MANAGER Oxygen Saturation 96% 02/19/2021 4:10 PM LIFE SCIENCES MANAGER Inhaled Oxygen Concentration - - Weight 145 kg (319 lb 0.1 oz) 02/19/2021 9:56 AM LIFE SCIENCES MANAGER Height 188 cm (6' 2) 02/19/2021 9:56 AM LIFE SCIENCES MANAGER Body Mass Index 40.96 02/19/2021 9:56 AM LIFE SCIENCES MANAGER documented in this encounter Discharge Instructions AttachmentsThe following attachments cannot be sent through Care Everywhere. Weakness (Chadian)Managing Anxiety Adult (Chadian)documented in this encounter Medications at Time of [...] as of this encounter ED Notes Moira Abmriz M.D. - 02/19/2021 4:12 PM CST SUBJECTIVE [...] Weakness General Anxiety Moira Ambriz M.D. 02/20/211446 SCIENCES MANAGER documented in this encounter Plan of Treatment Upcoming Encounters Date Type Specialty Care Team Description 02/15/2022 Office Visit Orthopedic Surgery Madyson Rosa ks, D.O. [address] [facility] [place] [phone] (Wo rk) documented as of this encounter Procedures Procedure Name Priority Date/Time Associated Comments Diagnosis CT CHEST RAD - Routine 02/19/2021 2:43 Results for this ANGIOGRAM AND (most inpatients PM LIFE SCIENCES MANAGER procedure are in PULMONARY and all the results ARTERIES WITH IV outpatients) section. CONTRAST TROPONIN T, Timed 02/19/2021 12:32 Results for this 2H/6H, 5TH GEN, P PM LIFE SCIENCES MANAGER procedure are in the results section. ECG STAT 02/19/2021 10:37 Results for this AM LIFE SCIENCES MANAGER procedure are i n the results section. TROPONIN T, STAT 02/19/2021 10:15 Results for this BASELINE, 5TH AM LIFE SCIENCES MANAGER procedure are in GEN, P the results section. D-DIMER, P STAT 02/19/2021 10:15 Results for this AM LIFE SCIENCES MANAGER procedure are i n the results section. CBC WITH STAT 02/19/2021 10:15 Results for this DIFFERENTIAL, B AM LIFE SCIENCES MANAGER procedure ar e in the results section. BASIC METABOLIC STAT 02/19/2021 10:15 Results for this PANEL, S/P AM LIFE SCIENCES MANAGER procedure are i n the results section. documented in this encounter Results CT Chest Angiogram and Pulmonary Arteries with IV Contrast (02/19/2021 2:43 PM LIFE SCIENCES MANAGER) Anatomical Region Laterality Modality Chest, Cardiovascular RST LOS, Thoracic ARZ LOS, N/A Computed Tomography Thoracic FLA LOS Specimen (Source) Anatomical Collection Method Collection Time Re ceived Time Location / / Volume Laterality 02/19/2021 2:50 PM LIFE SCIENCES MANAGER Impressions 02/19/2021 2:56 PM LIFE SCIENCES MANAGER 1. ??Negative for acute pulmonary embolism. 2. ??No acute cardiopulmonary disease. 3. ??Hepatic steatosis. 4. ??Old granulomatous disease in the ri ght lung and spleen. Narrative 02/19/2021 2:56 PM LIFE SCIENCES MANAGER EXAM: CT CHEST ANGIOGRAM AND PULMONARY ARTERIES [...] T, 2H/6H, 5th Gen (02/19/2021 12:32 PM LIFE SCIENCES MANAGER) athologist Signature Troponin T, 2 16 (H) <=15 ng/L 02/19/2021 NPRG hr, 5th gen 1:13 PM LIFE SCIENCES MANAGER Comment: Biotin has been identified by the alexis cturer as a potential interfering substance. ??Higher concentr ations of biotin may be found in multivitamins, hair/nail supple ments, and workout supplements. ??If the result does not [facility] clinical observations, repeat testing after patient refrains fr om the use of supplements for at least 12 hours. 2H Delta -1 ng/L 02/19/2021 1:13 PM LIFE SCIENCES MANAGER NPRG 2H Delta Interp Not Changing 02/19/2021 1:13 PM CS T NPRG Troponin T, 6 hr, 5th gen CANCELED ng/L 02/19/2021 1:1 3 PM LIFE SCIENCES MANAGER NPRG Comment: Result canceled by the juni stark Specimen Anatomical Collection Method Collection Time Receive d Time (Source) Location / / Volume Laterality Blood (Blood, 02/19/2021 12:32 02/19/2021 Venous) PM LIFE SCIENCES MANAGER 12:36 PM LIFE SCIENCES MANAGER Narrative [facility] B - 02/19/2021 1:13 PM LIFE SCIENCES MANAGER Specimen Information: Specimen ID: [id number] Specimen Type: Blood Specimen Collection Start Date: 021 12:32 PM Specimen Received Date: 02/19/2021 12:3 6 PM Specimen ID: [id number] Specimen Type: Blood Moira Ambriz M.D. LAB BLOOD TROPONIN Performing Organization Address City/State/ZIP Code Phon e Number [facility]- [address] [place], [place] [address] [place] [address] ECG 12 Lead (02/19/2021 10:37 AM LIFE SCIENCES MANAGER) P athologist Signature Ventricular Rate 111 BPM MUSE ECG/Min DE Interval 176 ms MUSE QRSD Interval 78 ms MUSE QT Interval 318 ms MUSE QTC Interval 432 ms MUSE P [place] 67 degrees MUSE R [place] 0 degrees MUSE T Wave [place] 7 degrees MUSE Specimen Anatomical Collection Method Collection Time Receive d Time (Source) Location / / Volume Laterality 02/19/2021 10:37 02/19/2021 AM LIFE SCIENCES MANAGER 10:41 AM LIFE SCIENCES MANAGER Impressions MUSE - 02/19/2021 10:41 AM LIFE SCIENCES MANAGER Sinus tachycardia Otherwise normal ECG When compared [...] Ambriz M.D. ECG ORDERABLES Performing Organization Address City/[facility]/ZIP Code Phon e Number MUSE MUSE NA (ABNORMAL) Troponin T, Baseline, 5th gen (02/19/2021 10:15 AM LIFE SCIENCES MANAGER) P athologist Signature Troponin T, 17 (H) <=15 ng/L 02/19/2021 NPRG Baseline, 5th 10:54 AM LIFE SCIENCES MANAGER gen Comment: Biotin has been identified by the alexis huang as a potential interfering substance. ??Higher concentr ations of biotin may be found in multivitamins, hair/nail supple ments, and workout supplements. ??If the result does not [facility] clinical observations, repeat testing after patient refrains fr om the use of supplements for at least 12 hours. Specimen Anatomical Collection Method Collection Time Receive d Time (Source) Location / / Volume Laterality Blood (Blood, 02/19/2021 10:15 02/19/2021 Venous) AM LIFE SCIENCES MANAGER 10:34 AM LIFE SCIENCES MANAGER Moira Ambriz M.D. LAB BLOOD TROPONIN Performing Organization Address [facility] Phon e Number [place] [address] [address] [place] [address] [facility] [place] [id number] (ABNORMAL) D-Dimer (02/19/2021 10:15 AM LIFE SCIENCES MANAGER) P athologist Signature D-Dimer, P 948 (H) <=500 ng/mL 02/19/2021 NPRG FEU 10:47 AM LIFE SCIENCES MANAGER Comment: D-dimer concentrations increase with age . [...] Blood (Blood, 02/19/2021 10:15 02/19/2021 Venous) AM LIFE SCIENCES MANAGER 10:34 AM LIFE SCIENCES MANAGER Moira Ambriz M.D. LAB BLOOD ADD-ON Performing Organization Address City/[facility]/ZIP Code Phon e Number [address] [address] [facility] [place] [phone] (ABNORMAL) CBC with Differential, Blood (02/19/2021 10:15 AM LIFE SCIENCES MANAGER) Patholo gist Method Time Signature Hemoglobin 14.2 13.2 - 02/19/2021 NPRG 16.6 g/dL 10:44 AM LIFE SCIENCES MANAGER Hematocrit 41.7 38.3 - 02/19/2021 NPRG 48.6 % 10:44 AM LIFE SCIENCES MANAGER Erythrocytes 4.21 (L) 4.35 - 02/19/2021 NPRG 5.65 10:44 AM LIFE SCIENCES MANAGER x10(12)/L MCV 99.0 (H) 78.2 - 02/19/2021 NPRG 97.9 fL 10:44 AM LIFE SCIENCES MANAGER RBC Distrib Width 13.5 11.8 - 02/19/2021 NPRG 14.5 % 10:44 AM LIFE SCIENCES MANAGER Platelet Count 230 135 - 317 02/19/2021 NPRG x10(9)/L 10:44 AM LIFE SCIENCES MANAGER Leukocytes 7.0 3.4 - 9.6 02/19/2021 NPRG x10(9)/L 10:44 AM LIFE SCIENCES MANAGER Neutrophils 5.41 1.56 - 02/19/2021 NPRG 6.45 10:44 AM LIFE SCIENCES MANAGER x10(9)/L Lymphocytes 1.04 0.95 - 02/19/2021 NPRG 3.07 10:44 AM LIFE SCIENCES MANAGER x10(9)/L Monocytes 0.46 0.26 - 02/19/2021 NPRG 0.81 10:44 AM LIFE SCIENCES MANAGER x10(9)/L Eosinophils 0.02 (L) 0.03 - 02/19/2021 NPRG 0.48 10:44 AM LIFE SCIENCES MANAGER x10(9)/L Basophils 0.03 0.01 - 02/19/2021 NPRG 0.08 10:44 AM LIFE SCIENCES MANAGER x10(9)/L Specimen Anatomical Collection Method Collection Time Receive d Time (Source) Location / / Volume Laterality Blood (Blood, 02/19/2021 10:15 02/19/2021 Venous) AM LIFE SCIENCES MANAGER 10:34 AM LIFE SCIENCES MANAGER Moira Ambriz M.D. LAB BLOOD ADD-ON Performing Organization Address City/State/ZIP Code Phon e Number [facility]- [address] [place], [place] [address] [place] [address] (ABNORMAL) Basic Metabolic Panel (02/19/2021 10:15 AM LIFE SCIENCES MANAGER) Analysis Performed At Patho logist Time Signature Potassium, P 4.2 3.6 - 5.2 02/19/2021 NPRG mmol/L 10:50 AM LIFE SCIENCES MANAGER Sodium, P 140 135 - 145 02/19/2021 NPRG mmol/L 10:50 AM LIFE SCIENCES MANAGER Chloride, P 98 98 - 107 02/19/2021 NPRG mmol/L 10:50 AM LIFE SCIENCES MANAGER Bicarbonate, P 26 22 - 29 02/19/2021 NPRG mmol/L 10:50 AM LIFE SCIENCES MANAGER Anion Gap, P 16 (H) 7 - 15 02/19/2021 NPRG 10:50 AM LIFE SCIENCES MANAGER BUN (Blood Urea 19 8 - 24 02/19/2021 NPRG Nitrogen), P mg/dL 10:50 AM LIFE SCIENCES MANAGER Creatinine 0.73 (L) 0.74 - 02/19/2021 NPRG 1.35 mg/dL 10:50 AM LIFE SCIENCES MANAGER eGFR-Black/Afri >90 >=60 02/19/2021 NPRG can Dominican mL/min/BSA 10:50 AM LIFE SCIENCES MANAGER Comment: ----ADDITIONAL INFORMATION---- Estimated GFR calculated using the 2009 CKD_EPI creatinine equation. eGFR Non-Black/ >90 >=60 mL/min/BSA 02/19/2021 10:50 AM LIFE SCIENCES MANAGER NPRG Comment: ----ADDITIONAL INFORMATION---- Estimated GFR calculated using the 2009 CKD_EPI creatinine equation. Calcium, Total, P 10.0 8.6 - 10.0 mg/dL 02/19/2021 10:5 0 AM LIFE SCIENCES MANAGER NPRG Glucose, P 134 70 - 140 mg/dL 02/19/2021 10:50 AM LIFE SCIENCES MANAGER NPRG Specimen Anatomical Collection Method Collection Time Receive d Time (Source) Location / / Volume Laterality Blood (Blood, 02/19/2021 10:15 02/19/2021 Venous) AM LIFE SCIENCES MANAGER 10:34 AM LIFE SCIENCES MANAGER Moira Ambriz M.D. LAB BLOOD ADD-ON Performing Organization Address City/State/ZIP Code Phon e Number [facility]- [address] [place], [place] [address] [place] [address] [place] [address] documented in this encounter Visit Diagnoses Diagnosis Weakness General - Primary Anxiety documented in this encounter Administered Medications Inactive Administered Medications - up to 3 most recent administrations Medication Order MAR Action Action Date Dose Rate Site acetaminophen tablet 1,000 mg Given 02/19/2021 12:44 PM LIFE SCIENCES MANAGER 1,00 0 mg (TYLENOL) 1,000 mg, oral, Once, On Fri02/19/21 at 1241, For 1 dose iohexoL 350 mg iodine/mL solution 1-200 mL Given 02/19/2021 2:34 PM LIFE SCIENCES MANAGER 120 mL (OMNIPAQUE) 1-200 mL, intravenous, Once in imaging, contrast, Starting on Fri02/19/21 at 1443, For 1 dose, Dose per Radiant Medication Guidelines LORazepam injection 1 mg (ATIVAN) Given 02/19/2021 2:25 PM LIFE SCIENCES MANAGER 1 mg 1 mg, intravenous, Once, On Fri02/19/21 at 1419, For 1 dose, For intravenous use, dilute with equal volume of 0.9% NS NaCl 0.9 % bolus 1,000 mL New Bag 02/19/2021 10:35 AM LIFE SCIENCES MANAGER 1,000 mL 1000 mL/hr 1,000 mL, intravenous, at 1,000 mL/hr, Administer over 1 Hours, Once, On Fri02/19/21 at 1030, For 1 dose NaCl 0.9 % bolus 100 mL Bolus from Bag 02/19/2021 2:34 PM LIFE SCIENCES MANAGER 100 mL 100 mL/hr 100 mL, intravenous, at 100 mL/hr, Administer over 1 Hours, Once, On Fri02/19/21 at 1445, For 1 dose sodium chloride 0.9 % injection 10 mL Given 02/19/2021 2:25 PM LIFE SCIENCES MANAGER 10 mL 10 mL, intravenous, As needed, line care, Starting on Fri02/19/21 at 1029, Peripheral Intravenous Catheter and Rapid Infusion Catheter, prior to blood sampling, post blood transfusion or post blood sampling Given 02/19/2021 10:10 AM LIFE SCIENCES MANAGER 10 mL sodium chloride 0.9 % injection 10 mL Given 02/19/2021 2:34 PM LIFE SCIENCES MANAGER 10 mL 10 mL, intravenous, Once in [...] Recently Administered Medications Times are shown in LIFE SCIENCES MANAGER. Scheduled Medication Order 02/17/2021 02/18/2021 02/19/2021 acetaminophen [...] - Provider: Vernell Dela Cruz(R) - Comment: [id number]) 1-200 mL, intravenous, Once in imaging, contrast, [...] as of this encounter Care Teams Investment Sales Assistant Relationship Specialty Start Date End Date Norma Kenny APRN, C.N.P. PCP - General 09/12/[address] [place] [phone] documented as of this encounter
--- OUTSIDE RECORDS SUMMARY | 2022-01-29 04:12 | XMS_ITS | Encounter Summary ---
:1965 Author Organization [facility] Address [address] [place] [address] Care Team Providers Name Role Phone Norma Kenny APRN C.NNikhilPNikhil Primary Care Provider [phone] Reason for Visit Reason Comments COVID Nurse Line Encounter Details Date Type Department Care Team Description 01/24/2021 Clinical Communication Division of Lizette Enriquez COVI D Nurse Line [facility] [place] 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 - 01/24/2021 5:07 PM CDT COVID-19 Nurse Line Screening ASSESSMENT Region Select appropriate region: : [place] Age Pathway Select approprite pathway: : Adult [...] swabbed for COVID-19 Only , sent to [facility]: An appointment is needed for testing. Call [phone] during the hours of Mon-Fri 8 am [...] sated he is wheezing, called transferred to [facility] triage nurse line for further evaluation. Standard Care Points -Get a COVID -19 vaccine as soon as you can if not fully vaccinated. -Wash hands frequently with soap and water, use hand strategic communications manager if soap and water aren't available. -Wear [...] care: Yes The following references were used: [facility] novel coronavirus (COVID- 19) resources CDC web site https://www.cdc.gov/coronavirus/2019-ncov/your-health/index.html Nursing judgement documented in this encounter Plan of Treatment Upcoming Encounters Date Type Specialty Care Team Description 02/15/2022 Office Visit Orthopedic Surgery Madyson Rosa, Jarad.ONikhil [address] [place], [place] [phone] (Wo rk) documented as of this encounter Visit Diagnoses Not on filedocumented in this encounter Additional Health Concerns Assessment Noted Time PHQ-9 Depression Total Score: 2 09/17/2018 9:08 AM CDT documented as of this encounter Care Teams Sales Secretary Relationship Specialty Start Date End Date Norma Kenny APRN, C.N.P. PCP - General 09/12/[address] [place] [phone] documented as of this encounter
--- OUTSIDE RECORDS SUMMARY | 2022-01-29 04:12 | XMS_ITS | Encounter Summary ---
:1965 Author Organization [facility] Address [address] [place] [address] Care Team Providers Name Role Phone Norma Kenny APRN, C.N.P. Primary Care Provider [phone] Reason for Visit Reason Comments Med Refill Encounter Details Date Type Department Care Team Description 02/27/2021 Refill Department of Family Medicine Tc Moura APRN, Med Refill in [facility] C.N.P. 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 documented as of this encounter Miscellaneous Notes Telephone Encounter - Carolyn Murray RNikhilMGilson - 03/02/2021 9:12 AM MATH AND SCIENCES DEPARTMENT CHAIR Last OV: 02-21-2021 Last refill: 02-21-2021 Last MELODY: Upcoming appt: 03-02-2021 AND SCIENCES DEPARTMENT CHAIR documented in this encounter Plan of Treatment Upcoming Encounters Date Type Specialty Care Team Description 02/15/2022 Office Visit Orthopedic Surgery Madyson Rosa, D.ONikhil [address] [place], [place] [phone] (Wo rk) documented as of this encounter Visit Diagnoses Diagnosis Anxiety documented in this encounter Additional Health Concerns Assessment Noted Time PHQ-9 Depression Total Score: 2 09/17/2018 9:08 AM CDT documented as of this encounter Care Teams Remote Sensing Research Scientist Relationship Specialty Start Date End Date Norma Kenny APRN, C.N.P. PCP - General 09/12/[address] [place] [phone] documented as of this encounter
--- OUTSIDE RECORDS SUMMARY | 2022-01-29 04:12 | XMS_ITS | Encounter Summary ---
:1965 Author Organization [facility] Address [address] [place] [address] Care Team Providers Name Role Phone Norma Kenny APRN C.N.P. Primary Care Provider [phone] Reason for Referral Outpatient (Routine) - Closed Specialty Diagnoses / Procedures Referred By Contact Refer red To Contact Family Medicine Norma Kenny APRN, [facility] C.N.P. [address] [place] [address] Referral ID Status Reason Start Date Expiration Date Visits Requ ested Visits Authorized [id number] Closed 03/02/2021 03/02/2022 1 1 ATTENDANT Outpatient (Routine) - Authorized Specialty Diagnoses / Procedures Referred By Contact Refer red To Contact Orthopedic Surgery Diagnoses Pain Shoulder Left Norma Kenny [facility] STEVEN, C.N.P. [address] [place] [address] Referral ID Status Reason Start Date Expiration Date Visits V isits Requested Authorized [id number] Authorized 03/02/2021 03/02/2022 1 1 Scheduling Instructions Ortho internal referral panel order, dedrick ging before Consult visit ATTENDANT Reason for Visit Reason Comments Extremity Weakness Encounter Details Date Type Department Care Team Description 03/02/2021 Office Visit Department of Family Norma Kenny Pa in Shoulder Left (Primary Dx); Medicine in [facility] PRODUCTION CONSULTANT, C.N.P. 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 ATTENDANT documented as of this encounter Last Filed Vital Signs Vital Sign Reading Time Taken Comments Blood Pressure 125/81 03/02/2021 10:27 AM CART ATTENDANT Pulse 99 03/02/2021 9:36 AM CART ATTENDANT Temperature 36.5 ??C (97.7 ??F) 03/02/2021 9:36 AM CART ATTENDANT Respiratory Rate 20 03/02/2021 9:36 AM CART ATTENDANT Oxygen Saturation 98% 03/02/2021 9:36 AM CART ATTENDANT Inhaled Oxygen Concentration - - Weight 145 kg (319 lb 3.2 oz) 03/02/2021 9:36 AM CART ATTENDANT Height - - Body Mass Index 40.97 02/21/2021 12:52 PM CART ATTENDANT documented in this encounter Patient Instructions Patient InstructionsNorma Kenny APRN, C.N.P. - 03/02/2021 9:45 AM CART ATTENDANT Proceed with scheduling MRI. Consider COVID shot (Pfizer or Moderna) in 3-6 weeks once you are feeling better. Sertraline - increase to 75mg daily x 10 days, then 100mg daily thereafter. Lorazepam - only as needed for severe anxiety. Follow up in 1 month for update on symptoms, or sooner if any concerns. 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 Has no pets. Plans to move into [employer] this year after renovation and sell current [...] patient discussion and coordination of care. Norma Kenny APRN, C.N.P. ATTENDANT documented in this encounter Plan of Treatment Upcoming Encounters Date Type Specialty Care Team Description 02/15/2022 Office Visit Orthopedic Surgery RavinMadyson stacy Joanna kerns [address] [place], [place] [phone] (Wo rk) Pending Results Name Type Priority Associated Diagnoses Date/Ti me Cologuard-Sent Out Lab Lab Routine Screening Cancer C olon 03/03/2021 2:00 AM CART ATTENDANT Scheduled Orders Name Type Priority Associated Diagnoses [...] as of this encounter Care Teams Shop And Alteration Tailor Relationship Specialty Start Date End Date Norma Kenny APRN, C.N.P. PCP - General 09/12/[address] [place] [address] documented as of this encounter
--- OUTSIDE RECORDS SUMMARY | 2022-01-29 04:12 | XMS_ITS | Encounter Summary ---
:1965 Author Organization [facility] Address [address] [place] [address] Care Team Providers Name Role Phone Norma Kenny APRN, C.N.P. Primary Care Provider [phone] Reason for Visit Reason Comments Med Refill Encounter Details Date Type Department Care Team Description 11/26/2020 Refill Department of Family Medicine Caden Kenny APRN, Med Refill in [facility] so C.N.P. 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 PCP - General 09/12/[address] [place] [address] documented as of this encounter
--- OUTSIDE RECORDS SUMMARY | 2022-01-29 04:12 | XMS_ITS | Encounter Summary ---
:1965 Author Organization [facility] Address [address] [place] [address] Care Team Providers Name Role Phone Norma Kenny APRN, C.N.P. Primary Care Provider [phone] Reason for Visit Reason Comments Med Refill Encounter Details Date Type Department Care Team Description 03/19/2021 Refill Department of Family Medicine Caden Kenny APRN, Med Refill in [facility] so C.N.P. 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 documented as of this encounter Miscellaneous Notes Telephone Encounter - Mechelle Poole L.PNikhilNNikhil - 03/19/2021 12:58 PM TRAILER SECTIONS ASSEMBLER Unable to refill per protocol: Name of Medications Needing Refill: atorvastatin (LIPITOR) 20 mg tablet Last Refill Date: 02/16/21 Additional Information: last lipid panel drawn 05/21/19 = abnormal Last / Future Appointment: Last OV 03/02/21 ; future appt 04/03/21 LER SECTIONS ASSEMBLER documented in this encounter Plan of Treatment Upcoming Encounters Date Type Specialty Care Team Description 02/15/2022 Office Visit Orthopedic Surgery RavinohMadyson haq, D.ONikhil [address] [place], [place] [phone] (Wo rk) documented as of this encounter Visit Diagnoses Diagnosis Hyperlipidemia documented in this encounter Additional Health Concerns Assessment Noted Time PHQ-9 Depression Total Score: 4 03/02/2021 10:28 AM CS T documented as of this encounter Care Teams Directional Bore Operator Relationship Specialty Start Date End Date Norma Kenny, STEVEN, C.N.P. PCP - General 09/12/[address] [place] [phone] documented as of this encounter
--- OUTSIDE RECORDS SUMMARY | 2022-01-29 04:12 | XMS_ITS | Encounter Summary ---
:1965 Author Organization [facility] Address [address] [place] [address] Care Team Providers Name Role Phone Norma Kenny APRN, C.NNikhilPNikhil Primary Care Provider [phone] Reason for Visit Reason Comments Palpitations Pt [...] Expiration Date Visits Requ ested Visits Authorized [id number] 1 1 Encounter Details Date Type Department Care Team Description 02/05/2021 - Hospital Encounter [facility] Efe Childress D.O. [address] [place] [address] Hyponatremia (Primary Dx); [facility] [address] [place] [phone] COVID-19 Infection; [facility], [facility] Second Floor [address] [place] [phone] Social History Tobacco Use Types Packs/Day Years [...] How often do you attend jainism or zoroastrianism More than 4 time s [...] Date Recorded Male 03/25/2018 1:01 PM MACHINE II COREMAKER documented as of this encounter Last Filed Vital Signs Vital Sign Reading Time Taken Comments Blood Pressure 169/82 02/07/2021 11:10 AM MACHINE II COREMAKER Pulse 92 02/07/2021 11:10 AM MACHINE II COREMAKER Temperature 36.2 ??C (97.2 ??F) 02/07/2021 11:10 AM MACHINE II COREMAKER Respiratory Rate 18 02/07/2021 11:10 AM MACHINE II COREMAKER Oxygen Saturation 96% 02/07/2021 11:10 AM MACHINE II COREMAKER Inhaled Oxygen Concentration - - Weight 149 kg (327 lb 6.1 oz) 02/07/2021 1:00 AM MACHINE II COREMAKER Height 185.4 cm (6' 0.99) 02/06/2021 2:14 PM MACHINE II COREMAKER Body Mass Index 43.2 02/06/2021 2:14 PM MACHINE II COREMAKER documented in this encounter Discharge Summaries Rio Damon M.D. - 02/07/2021 8:07 AM CST DISCHARGE SUMMARY BRIEF OVERVIEW Hospital: [facility] Hospital Discharge Provider: Rio Damon M.D. Primary Care Providers: Norma Kenny APRN, C.N.P. (General) [address] [facility] [address] Primary Care Provider Primary Care Provider Other [...] were provided to the patient and caregiver(s). INE II COREMAKER documented in this encounter Medications at Time [...] Discharge Information: Tomorrow if continue to improve. INE II COREMAKER Erica Laurent RDN, LD - 02/06/2021 2:17 [...] AND EVALUATION: Nutrition Monitoring/Evaluation Monitoring: Meals/Supplement Intake INE II COREMAKER Nai Schrader, Pharm.D., R.Ph. - 02/06/2021 7:54 [...] due to decreased PO intake and vomiting COMPUTATIONAL MATHEMATICIAN ?? Sodium on admission = 120, today [...] - awaiting recommendations 3. HTN ?? Continue COMPUTATIONAL MATHEMATICIAN metoprolol; hold hydrochlorothiazide given hyponatremia; continue lisinopril ?? BPs 152/96-160/97, extra dose of lisinopril scheduled for tonight 4. Hypercholesterolemia ?? Continue COMPUTATIONAL MATHEMATICIAN atorvastatin; noted CK was elevated on admission (489) but now down to 234 5. GERD ?? Scheduled PPI in addition to PRN Changes to medications anticipated at discharge: TBD Alondra Schrader, Pharm.DNikhil, R.Ph. INE II COREMAKER documented in this encounter H&P Notes Rio [...] Low Back Chronic Chronic condition, pain control. INE II COREMAKER documented in this encounter Consult Notes Tru [...] No COVID directed therapy Tru Mariscal M.D. INE II COREMAKER documented in this encounter Nursing Notes Maribel Pratt R.N. - 02/07/2021 11:31 AM CST Patient discharged to home. Daughter picked patient up in personal car. IV was removed and vitals were taken. Electronically signed by: Maribel Pratt R.N. 02/07/21 11:31 AM MACHINE II COREMAKER INE II COREMAKER Maribel Pratt R.N. - 02/07/2021 10:54 AM [...] discharge this afternoon to home. Daughter will continuous pickling line pickler. ]Electronically signed by: Maribel Pratt R.N. 02/07/21 10:55 AM MACHINE II COREMAKER INE II COREMAKER Cecily Young R.N. - 02/07/2021 5:27 AM [...] by: Cecily Young R.N. 02/07/21 5:31 AM MACHINE II COREMAKER INE II COREMAKER Muriel Garcia R.N. - 02/06/2021 5:41 PM [...] by: Muriel Garcia R.N. 02/06/21 5:45 PM MACHINE II COREMAKER INE II COREMAKER Cecily Young R.N. - 02/06/2021 5:30 AM CST Shift Goals: Clinical Goals for the Shift: Monitor O2, Rest, Pain Management Identify possible barriers to meeting goals/advancing plan of care: none End of Shift Summary: Pt stated that he did not fall asleep until around 1230. Recorder Helper Seismograph did get a verbal order from the overnight provider for 3 mg of Melatonin but per pt, it did not help very much. Pt has been on room air. VSS. Pain for lower extremities has been managed with Tramadol Q6 and Tylenol. Pt has been call light appropriate. Electronically signed by: Cecily Young R.N. 02/06/21 5:32 AM MACHINE II COREMAKER INE II COREMAKER Jessica Zapien R.N. - 02/05/2021 5:39 PM [...] Jo Ann Zapien R.N. 02/05/21 5:42 PM MACHINE II COREMAKER INE II COREMAKER documented in this encounter ED Notes Efe [...] ED Course. Case reviewed with other health healthcare consultant, including Admitting Provider. CT Chest Angiogram and [...] 02/05/21 1346 Efe Childress D.O. 02/05/21 1347 INE II COREMAKER documented in this encounter Miscellaneous Notes Hospital [...] and place. Normal affect and stable mood. INE II COREMAKER documented in this encounter Plan of Treatment Upcoming Encounters Date Type Specialty Care Team Description 02/15/2022 Office Visit Orthopedic Surgery Madyson Rosa D.ONikhil [address] [place], [place] [phone] (Wo rk) documented as of this encounter Procedures Procedure Name Priority Date/Time Associated Comments Diagnosis COMPREHENSIVE Routine 02/07/2021 6:22 Results for METABOLIC PANEL, S/P AM MACHINE II COREMAKER this pr ocedure are in the results section. SODIUM, RANDOM, U Routine 02/06/2021 11:25 Result s for AM MACHINE II COREMAKER this procedure are in the results section. OSMOLALITY, U Routine 02/06/2021 11:25 Results fo r AM MACHINE II COREMAKER this procedure are in the results section. OSMOLALITY, S Routine 02/06/2021 11:00 Results fo r AM MACHINE II COREMAKER this procedure are in the results section. PULSE OXIMETRY, STAT 02/06/2021 8:01 CONTINUOUS AM MACHINE II COREMAKER MAGNESIUM, S Routine 02/06/2021 7:38 Results for AM MACHINE II COREMAKER this procedure are in the results section. D-DIMER, P Routine 02/06/2021 7:28 Results for AM MACHINE II COREMAKER this procedure are in the results section. CREATINE KINASE Routine 02/06/2021 7:28 Results f or (CK), S AM MACHINE II COREMAKER this procedure are in the results section. COMPREHENSIVE Routine 02/06/2021 7:28 Results for METABOLIC PANEL, S/P AM MACHINE II COREMAKER this pr ocedure are in the results section. PULSE OXIMETRY, STAT 02/05/2021 8:01 CONTINUOUS PM MACHINE II COREMAKER US LOWER EXTREMITY RAD - Semiurgent 02/05/2021 5:26 Re sults for VEINS BILATERAL (Fast; most ED PM MACHINE II COREMAKER this proce dure patients; some are in the inpatients) results section. TROPONIN T, 2H/6H, Timed 02/05/2021 1:03 Result s for 5TH GEN, P PM MACHINE II COREMAKER this procedure are in the results section. C-REACTIVE PROTEIN Routine 02/05/2021 1:02 Result s for (CRP), S/P PM MACHINE II COREMAKER this procedure are in the results section. CT CHEST ANGIOGRAM RAD - Semiurgent 02/05/2021 11:48 R esults for AND PULMONARY (Fast; most ED AM MACHINE II COREMAKER this procedu re ARTERIES WITH IV patients; some are in th e CONTRAST inpatients) results section. TROPONIN T, STAT 02/05/2021 11:15 Results for BASELINE, 5TH GEN, P AM MACHINE II COREMAKER this pr ocedure are in the results section. D-DIMER, P STAT 02/05/2021 11:15 Results for AM MACHINE II COREMAKER this procedure are in the results section. CBC WITH STAT 02/05/2021 11:15 Results for DIFFERENTIAL, B AM MACHINE II COREMAKER this procedu re are in the results section. THYROID-STIMULATING STAT 02/05/2021 11:15 Resu lts for HORMONE-SENSITIVE AM MACHINE II COREMAKER this proce dure (S-TSH) are in the results section. CREATINE KINASE STAT 02/05/2021 11:15 Results for (CK), S AM MACHINE II COREMAKER this procedure are in the results section. COMPREHENSIVE STAT 02/05/2021 11:15 Results fo r METABOLIC PANEL, S/P AM MACHINE II COREMAKER this pr ocedure are in the results section. ECG STAT 02/05/2021 11:08 Results for AM MACHINE II COREMAKER this procedure are in the results section. PULSE OXIMETRY, STAT 02/05/2021 11:01 CONTINUOUS AM MACHINE II COREMAKER PULSE OXIMETRY, STAT 02/05/2021 11:01 CONTINUOUS AM MACHINE II COREMAKER PULSE OXIMETRY, STAT 02/05/2021 11:01 CONTINUOUS AM MACHINE II COREMAKER documented in this encounter Results (ABNORMAL) Comprehensive Metabolic Panel (02/07/2021 6:22 AM MACHINE II COREMAKER) P athologist Signature Potassium, P 3.9 3.6 - 5.2 02/07/2021 NPRG mmol/L 7:17 AM MACHINE II COREMAKER Sodium, P 136 135 - 145 02/07/2021 [facility] mmol/L 7:17 AM MACHINE II COREMAKER Chloride, P 97 (L) 98 - 107 02/07/2021 NPR[facility] mmol/L 7:17 AM MACHINE II COREMAKER Bicarbonate, P 30 (H) 22 - 29 02/07/2021 [facility] mmol/L 7:17 AM MACHINE II COREMAKER Anion Gap, P 9 7 - 15 02/07/2021 NPRG 7:17 AM MACHINE II COREMAKER BUN (Blood Urea 10 8 - 24 02/07/2021 NPRG Nitrogen), P mg/dL 7:17 AM MACHINE II COREMAKER Creatinine 0.75 0.74 - 02/07/2021 NPR[facility] 1.35 mg/dL 7:17 AM MACHINE II COREMAKER eGFR-Black/Afri >90 >=60 02/07/2021 NPR[facility] can [place] mL/min/BSA 7:17 AM MACHINE II COREMAKER Comment: ----ADDITIONAL INFORMATION---- Estimated GFR calculated using the 2009 CKD_EPI creatinine equation. eGFR Non-Black/ >90 >=60 mL/min/BSA 02/07/2021 7:17 AM MACHINE II COREMAKER NPR[facility] Comment: ----ADDITIONAL INFORMATION---- Estimated GFR calculated using the 2009 CKD_EPI creatinine equation. Calcium, Total, P 9.3 8.6 - 10.0 mg/dL 02/07/2021 7:17 AM MACHINE II COREMAKER NPRG Glucose, P 103 70 - 140 mg/dL 02/07/2021 7:17 AM MACHINE II COREMAKER N PRG Protein, Total, P 6.7 6.3 - 7.9 g/dL 02/07/2021 7:17 A M MACHINE II COREMAKER NPRG Albumin, P 4.1 3.5 - 5.0 g/dL 02/07/2021 7:17 AM MACHINE II COREMAKER N PRG Aspartate Aminotransferase 68 (H) 8 - 48 U/L 02/07/2021 7 :17 AM MACHINE II COREMAKER NPRG (AST), P Alkaline Phosphatase, P 67 40 - 129 U/L 02/07/2021 7: 17 AM MACHINE II COREMAKER NPRG Alanine Aminotransferase 52 7 - 55 U/L 02/07/2021 7:1 7 AM MACHINE II COREMAKER NPRG (ALT), P Bilirubin, Total, P 0.9 <=1.2 mg/dL 02/07/2021 7:17 AM MACHINE II COREMAKER NPRG Specimen Anatomical Collection Method Collection Time Receive d Time (Source) Location / / Volume Laterality Blood (Blood, 02/07/2021 6:22 AM 02/08/20 6:52 Venous) MACHINE II COREMAKER AM MACHINE II COREMAKER Rio Damon M.D. LAB BLOOD ADD-ON Performing Organization Address City/State/ZIP Code Phon e Number [facility]- [address] [place], [place] [address] [place] [address] Sodium, Random, Urine (02/06/2021 11:25 AM MACHINE II COREMAKER) P athologist Signature Sodium, Random, 27 mmol/L 02/06/2021 NPR[facility] U 12:43 PM MACHINE II COREMAKER Comment: ----REFERENCE VALUE---- Random urine sodium may be interpreted i n conjunction with serum sodium, using both values to calculate fractional excretion of sodium. Specimen Anatomical Collection Method Collection Time Receive d Time (Source) Location / / Volume Laterality Urine (Urine, 02/06/2021 11:25 02/06/2021 Midstream) AM MACHINE II COREMAKER 11:36 AM MACHINE II COREMAKER Rio Damon M.D. LAB URINE ORDERABLES Performing Organization Address City/[facility]/ZIP Code Phon e Number [address] [address] [address] [place] [phone] [address] (ABNORMAL) Osmolality, Urine (02/06/2021 11:25 AM MACHINE II COREMAKER) athologist Signature Osmolality, U 118 (L) 150 - 1150 02/06/2021 [facility] mOsm/kg 3:38 PM MACHINE II COREMAKER Specimen Anatomical Collection Method Collection Time Receive d Time (Source) Location / / Volume Laterality Urine (Urine, 02/06/2021 11:25 02/06/2021 2:45 Clean Catch) AM MACHINE II COREMAKER PM MACHINE II COREMAKER Rio Damon M.D. LAB URINE ORDERABLES Performing Organization Address City/[facility]/ZIP Code Phon e Number [facility]- [address] [place] [address] [place] [address] [address] (ABNORMAL) Osmolality (02/06/2021 11:00 AM MACHINE II COREMAKER) athologist Signature Osmolality, S 266 (L) 276 - 306 02/06/2021 [facility] mOsm/kg 3:35 PM MACHINE II COREMAKER Specimen Anatomical Collection Method Collection Time Receive d Time (Source) Location / / Volume Laterality Blood (Blood, 02/06/2021 11:00 02/06/2021 2:48 Venous) AM MACHINE II COREMAKER PM MACHINE II COREMAKER Rio Damon M.D. LAB BLOOD ADD-ON Performing Organization Address City/[facility]/ZIP Code Phon e Number [facility]- [address] [place] [address] [facility] [place] [address] System in [place] [address] [facility] (ABNORMAL) Magnesium (02/06/2021 7:38 AM MACHINE II COREMAKER) P athologist Signature Magnesium, P 1.6 (L) 1.7 - 2.3 02/06/2021 NPR[facility] mg/dL 5:53 PM MACHINE II COREMAKER Specimen Anatomical Collection Method Collection Time Receive d Time (Source) Location / / Volume Laterality Blood (Blood, 02/06/2021 7:38 AM 02/07/20 5:36 Venous) MACHINE II COREMAKER PM MACHINE II COREMAKER Rio Damon M.D. LAB BLOOD ADD-ON Performing Organization Address City/[facility]/ZIP Code Phon e Number [place] [address] D-Dimer (02/06/2021 7:28 AM MACHINE II COREMAKER) P athologist Signature D-Dimer, P 486 <=500 ng/mL 02/06/2021 NPR[facility] FEU 7:52 AM MACHINE II COREMAKER Comment: ----ADDITIONAL INFORMATION---- D-dimer values less than or equal to 500 ng/mL fibrinogen equivalent units (FEU) may be used in co njunction with clinical pre-test probability to exclude deep vein thrombosis (DVT) and/or pulmonary emboli sm (PE). Specimen Anatomical Collection Method Collection Time Receive d Time (Source) Location / / Volume Laterality Blood (Blood, 02/06/2021 7:28 AM 02/07/20 7:52 Venous) MACHINE II COREMAKER AM MACHINE II COREMAKER Rio Damon M.D. LAB BLOOD ADD-ON Performing Organization Address City/[facility]/ZIP Code Phon e Number [place] [address] [place] [phone] 1 [facility] NPR[facility] [place] [id number] [address] CK (Creatine Kinase) (02/06/2021 7:28 AM MACHINE II COREMAKER) P athologist Signature Creatine 234 39 - 308 02/06/2021 NPR[facility] Kinase, P U/L 8:05 AM MACHINE II COREMAKER Specimen Anatomical Collection Method Collection Time Receive d Time (Source) Location / / Volume Laterality Blood (Blood, 02/06/2021 7:28 AM 02/07/20 8:05 Venous) MACHINE II COREMAKER AM MACHINE II COREMAKER Rio Damon M.D. LAB BLOOD ADD-ON Performing Organization Address City/State/ZIP Code Phon e Number [facility]- [address] [place], [place] [address] [address] [facility] [place] [address] (ABNORMAL) Comprehensive Metabolic Panel (02/06/2021 7:28 AM MACHINE II COREMAKER) Analysis Performed At Patho logist Time Signature Potassium, P 3.2 (L) 3.6 - 5.2 02/06/2021 NPR[facility] mmol/L 8:05 AM MACHINE II COREMAKER Sodium, P 125 (L) 135 - 145 02/06/2021 NPR[facility] mmol/L 8:05 AM MACHINE II COREMAKER Chloride, P 87 (L) 98 - 107 02/06/2021 [facility] mmol/L 8:05 AM MACHINE II COREMAKER Bicarbonate, P 27 22 - 29 02/06/2021 NPR[facility] mmol/L 8:05 AM MACHINE II COREMAKER Anion Gap, P 11 7 - 15 02/06/2021 NPRG 8:05 AM MACHINE II COREMAKER BUN (Blood Urea 12 8 - 24 02/06/2021 NPRG Nitrogen), P mg/dL 8:05 AM MACHINE II COREMAKER Creatinine 0.61 (L) 0.74 - 02/06/2021 NPR[facility] 1.35 mg/dL 8:05 AM MACHINE II COREMAKER eGFR-Black/Afri >90 >=60 02/06/2021 NPR[facility] can [place] mL/min/BSA 8:05 AM MACHINE II COREMAKER Comment: ----ADDITIONAL INFORMATION---- Estimated GFR calculated using the 2009 CKD_EPI creatinine equation. eGFR Non-Black/ >90 >=60 mL/min/BSA 02/06/2021 8:05 AM MACHINE II COREMAKER NPRG Comment: ----ADDITIONAL INFORMATION---- Estimated GFR calculated using the 2009 CKD_EPI creatinine equation. Calcium, Total, P 8.9 8.6 - 10.0 mg/dL 02/06/2021 8:05 AM MACHINE II COREMAKER NPRG Glucose, P 101 70 - 140 mg/dL 02/06/2021 8:05 AM MACHINE II COREMAKER N PRG Protein, Total, P 6.6 6.3 - 7.9 g/dL 02/06/2021 8:05 A M MACHINE II COREMAKER NPRG Albumin, P 4.1 3.5 - 5.0 g/dL 02/06/2021 8:05 AM MACHINE II COREMAKER N PRG Aspartate Aminotransferase 86 (H) 8 - 48 U/L 02/06/2021 8 :05 AM MACHINE II COREMAKER NPRG (AST), P Alkaline Phosphatase, P 66 40 - 129 U/L 02/06/2021 8: 05 AM MACHINE II COREMAKER NPRG Alanine Aminotransferase 62 (H) 7 - 55 U/L 02/06/2021 8:0 5 AM MACHINE II COREMAKER NPRG (ALT), P Bilirubin, Total, P 1.4 (H) <=1.2 mg/dL 02/06/2021 8:05 AM MACHINE II COREMAKER NPRG Specimen Anatomical Collection Method Collection Time Receive d Time (Source) Location / / Volume Laterality Blood (Blood, 02/06/2021 7:28 AM 02/07/20 8:05 Venous) MACHINE II COREMAKER AM MACHINE II COREMAKER Rio Damon M.D. LAB BLOOD ADD-ON Performing Organization Address City/State/ZIP Code Phon e Number [facility]- [address] [place] [address] [address] [place] [address] [place] Lower Extremity Veins Bilateral (02/05/2021 5:26 PM MACHINE II COREMAKER) Anatomical Region Laterality Modality Lower Extremity, Ultrasound RST LOS, Ultrasound ARZ LOS, Otf ateral Ultrasound Ultrasound FLA LOS Specimen (Source) Anatomical Collection Method Collection Time Re ceived Time Location / / Volume Laterality 02/05/2021 5:28 PM MACHINE II COREMAKER Impressions 02/05/2021 5:29 PM MACHINE II COREMAKER Negative for Acute DVT. Narrative 02/05/2021 5:29 PM MACHINE II COREMAKER EXAM: US LOWER EXTREMITY VEINS BILATERAL Exam [...] T, 2H/6H, 5th Gen (02/05/2021 1:03 PM MACHINE II COREMAKER) P athologist Signature Troponin T, 2 17 (H) <=15 ng/L 02/05/2021 NPRG hr, 5th gen 1:25 PM MACHINE II COREMAKER Comment: Biotin has been identified by the alexis huang as a potential interfering substance. ??Higher concentr ations of biotin may be found in multivitamins, hair/nail supple ments, and workout supplements. ??If the result does not [facility] clinical observations, repeat testing after patient refrains fr om the use of supplements for at least 12 hours. 2H Delta 2 ng/L 02/05/2021 1:25 PM MACHINE II COREMAKER NPRG 2H Delta Interp Not Changing 02/05/2021 1:25 PM CS T NPRG Troponin T, 6 hr, 5th gen CANCELED ng/L 02/05/2021 1:2 5 PM MACHINE II COREMAKER NPRG Comment: Result canceled by the ancillar y. Specimen Anatomical Collection Method Collection Time Receive d Time (Source) Location / / Volume Laterality Blood (Blood, 02/05/2021 1:03 PM 02/06/20 1:06 Venous) MACHINE II COREMAKER PM MACHINE II COREMAKER Narrative [facility] B - 02/05/2021 1:25 PM MACHINE II COREMAKER Specimen Information: Specimen ID: [id number] Specimen Type: Blood Specimen Collection Start Date: 02/06/20 ??1:03 PM Specimen Received Date: 02/05/2021 ??1:0 6 PM Specimen ID: [id number] Specimen Type: Blood Efe Childress D.O. LAB BLOOD TROPONIN Performing Organization Address [facility] Phon e Number [address] LAB [address] CRP (C-Reactive Protein) (02/05/2021 1:02 PM MACHINE II COREMAKER) P athologist Signature C-Reactive <3.0 <=8.0 mg/L 02/05/2021 NPR[facility] Protein (CRP), 4:31 PM MACHINE II COREMAKER P Specimen Anatomical Collection Method Collection Time Receive d Time (Source) Location / / Volume Laterality Blood (Blood, 02/05/2021 1:02 PM 02/06/20 3:57 Venous) MACHINE II COREMAKER PM MACHINE II COREMAKER Rio Damon M.D. LAB BLOOD ADD-ON Performing Organization Address City/[facility]/ZIP [facility] [place] [address] 1 [facility] [address] Chest Angiogram and Pulmonary Arteries with IV Contrast (02/05/2021 11:48 AM MACHINE II COREMAKER) Anatomical Region Laterality Modality Chest, Cardiovascular RST LOS, Thoracic ARZ LOS, N/A Computed Tomography Thoracic FLA LOS Specimen (Source) Anatomical Collection Method Collection Time Re ceived Time Location / / Volume Laterality 02/05/2021 12:13 PM MACHINE II COREMAKER Impressions 02/05/2021 1:04 PM MACHINE II COREMAKER 1. ??Negative for acute pulmonary emboli 2. ??Fatty change in liver 3. ??Scattered minor patches of atelecta sis or infiltrate bilaterally. Narrative 02/05/2021 1:04 PM MACHINE II COREMAKER EXAM: CT CHEST ANGIOGRAM AND PULMONARY ARTERIES [...] (ABNORMAL) CK (Creatine Kinase) (02/05/2021 11:15 AM MACHINE II COREMAKER) athologist Signature Creatine 489 (H) 39 - 308 02/05/2021 NPR[facility] Kinase, P U/L 11:37 AM MACHINE II COREMAKER Specimen Anatomical Collection Method Collection Time Receive d Time (Source) Location / / Volume Laterality Blood (Blood, 02/05/2021 11:15 02/05/2021 Venous) AM MACHINE II COREMAKER 11:18 AM MACHINE II COREMAKER Efe Childress D.O. LAB BLOOD ADD-ON Performing Organization Address City/State/ZIP Code Phon e Number [facility]- [address] [place], [place] [address] [place] [address] [place] [address] [facility] [address] (ABNORMAL) D-Dimer (02/05/2021 11:15 AM MACHINE II COREMAKER) athologist Signature D-Dimer, P 897 (H) <=500 ng/mL 02/05/2021 NPRG FEU 11:28 AM MACHINE II COREMAKER Comment: D-dimer concentrations increase with age . [...] Blood (Blood, 02/05/2021 11:15 02/05/2021 Venous) AM MACHINE II COREMAKER 11:18 AM MACHINE II COREMAKER Efe Childress D.O. LAB BLOOD ADD-ON Performing Organization Address City/State/ZIP Code Phon e Number [place] [address] [address] [facility] NPRG [place] [address] [place] [address] [address] [facility] (ABNORMAL) Comprehensive Metabolic Panel (02/05/2021 11:15 AM MACHINE II COREMAKER) Analysis Performed At Patho logist Time Signature Potassium, P 3.7 3.6 - 5.2 02/05/2021 NPRG mmol/L 11:36 AM MACHINE II COREMAKER Sodium, P 120 (CL) 135 - 145 02/05/2021 NPRG mmol/L 11:43 AM MACHINE II COREMAKER Chloride, P 80 (L) 98 - 107 02/05/2021 NPRG mmol/L 11:43 AM MACHINE II COREMAKER Bicarbonate, P 23 22 - 29 02/05/2021 NPRG mmol/L 11:37 AM MACHINE II COREMAKER Anion Gap, P 17 (H) 7 - 15 02/05/2021 NPRG 11:43 AM MACHINE II COREMAKER BUN (Blood Urea 13 8 - 24 02/05/2021 NPRG Nitrogen), P mg/dL 11:37 AM MACHINE II COREMAKER Creatinine 0.62 (L) 0.74 - 02/05/2021 NPRG 1.35 mg/dL 11:37 AM MACHINE II COREMAKER eGFR-Black/Afri >90 >=60 02/05/2021 NPR[facility] can [place] mL/min/BSA 11:37 AM MACHINE II COREMAKER Comment: ----ADDITIONAL INFORMATION---- Estimated GFR calculated using the 2009 CKD_EPI creatinine equation. eGFR Non-Black/ >90 >=60 mL/min/BSA 02/05/2021 11:37 AM MACHINE II COREMAKER NPRG Comment: ----ADDITIONAL INFORMATION---- Estimated GFR calculated using the 2009 CKD_EPI creatinine equation. Calcium, Total, P 9.1 8.6 - 10.0 mg/dL 02/05/2021 11:3 7 AM NPRG MACHINE II COREMAKER Glucose, P 120 70 - 140 mg/dL 02/05/2021 11:37 AM NPRG MACHINE II COREMAKER Protein, Total, P 7.4 6.3 - 7.9 g/dL 02/05/2021 11:37 AM NPRG MACHINE II COREMAKER Albumin, P 4.3 3.5 - 5.0 g/dL 02/05/2021 11:37 AM NPRG MACHINE II COREMAKER Aspartate Aminotransferase 124 (H) 8 - 48 U/L 02/05/2021 1 1:37 AM NPRG (AST), P MACHINE II COREMAKER Alkaline Phosphatase, P 72 40 - 129 U/L 02/05/2021 11 :37 AM NPRG MACHINE II COREMAKER Alanine Aminotransferase 81 (H) 7 - 55 U/L 02/05/2021 11: 37 AM NPRG (ALT), P MACHINE II COREMAKER Bilirubin, Total, P 1.3 (H) <=1.2 mg/dL 02/05/2021 11:37 A M NPRG MACHINE II COREMAKER Specimen Anatomical Collection Method Collection Time Receive d Time (Source) Location / / Volume Laterality Blood (Blood, 02/05/2021 11:15 02/05/2021 Venous) AM MACHINE II COREMAKER 11:18 AM MACHINE II COREMAKER Efe Childress D.O. LAB BLOOD ADD-ON Performing Organization Address City/State/ZIP Code Phon e Number [facility]- [address] [place] [address] [place] [address] [place] [address] [place] [address] (ABNORMAL) CBC with Differential, Blood (02/05/2021 11:15 AM MACHINE II COREMAKER) [facility] gist Method Time Signature Hemoglobin 13.1 (L) 13.2 - 02/05/2021 NPRG 16.6 g/dL 11:26 AM MACHINE II COREMAKER Hematocrit 35.2 (L) 38.3 - 02/05/2021 NPRG 48.6 % 11:26 AM MACHINE II COREMAKER Erythrocytes 3.88 (L) 4.35 - 02/05/2021 NPRG 5.65 11:26 AM MACHINE II COREMAKER x10(12)/L MCV 90.7 78.2 - 02/05/2021 NPRG 97.9 fL 11:26 AM MACHINE II COREMAKER RBC Distrib Width 12.1 11.8 - 02/05/2021 NPRG 14.5 % 11:26 AM MACHINE II COREMAKER Platelet Count 166 135 - 317 02/05/2021 NPRG x10(9)/L 11:26 AM MACHINE II COREMAKER Leukocytes 6.7 3.4 - 9.6 02/05/2021 NPRG x10(9)/L 11:26 AM MACHINE II COREMAKER Neutrophils 5.69 1.56 - 02/05/2021 NPRG 6.45 11:26 AM MACHINE II COREMAKER x10(9)/L Lymphocytes 0.52 (L) 0.95 - 02/05/2021 NPRG 3.07 11:26 AM MACHINE II COREMAKER x10(9)/L Monocytes 0.43 0.26 - 02/05/2021 NPRG 0.81 11:26 AM MACHINE II COREMAKER x10(9)/L Eosinophils 0.00 (L) 0.03 - 02/05/2021 NPRG 0.48 11:26 AM MACHINE II COREMAKER x10(9)/L Basophils 0.02 0.01 - 02/05/2021 NPRG 0.08 11:26 AM MACHINE II COREMAKER x10(9)/L Specimen Anatomical Collection Method Collection Time Receive d Time (Source) Location / / Volume Laterality Blood (Blood, 02/05/2021 11:15 02/05/2021 Venous) AM MACHINE II COREMAKER 11:18 AM MACHINE II COREMAKER Efe Childress D.O. LAB BLOOD ADD-ON Performing Organization Address City/State/ZIP Code Phon e Number [facility]- [address] [place], [place] [address] [place] [address] [facility] [address] S-TSH (Thyroid-Stimulating Hormone - Sensitive) (02/05/2021 11:15 AM MACHINE II COREMAKER) P athologist Signature TSH, Sensitive 0.9 0.3 - 4.2 02/05/2021 NPRG mIU/L 12:03 PM MACHINE II COREMAKER Specimen Anatomical Collection Method Collection Time Receive d Time (Source) Location / / Volume Laterality Blood (Blood, 02/05/2021 11:15 02/05/2021 Venous) AM MACHINE II COREMAKER 11:18 AM MACHINE II COREMAKER Efe Childress D.O. LAB BLOOD ADD-ON Performing Organization Address City/[facility]/ZIP Code Phon e Number [place] [phone] [address] [facility] [place] [id number] Troponin T, Baseline, 5th gen (02/05/2021 11:15 AM MACHINE II COREMAKER) P athologist Signature Troponin T, 15 <=15 ng/L 02/05/2021 NPRG Baseline, 5th 11:40 AM MACHINE II COREMAKER gen Comment: Biotin has been identified by the alexis huang as a potential interfering substance. ??Higher concentr ations of biotin may be found in multivitamins, hair/nail supple ments, and workout supplements. ??If the result does not [facility] clinical observations, repeat testing after patient refrains fr om the use of supplements for at least 12 hours. Specimen Anatomical Collection Method Collection Time Receive d Time (Source) Location / / Volume Laterality Blood (Blood, 02/05/2021 11:15 02/05/2021 Venous) AM MACHINE II COREMAKER 11:18 AM MACHINE II COREMAKER Efe Childress D.O. LAB BLOOD TROPONIN Performing Organization Address City/[facility]/ZIP Code Phon e Number [address] [phone] [facility] [place] [place] [address] ECG 12 Lead (02/05/2021 11:08 AM MACHINE II COREMAKER) P athologist Signature Ventricular Rate 99 BPM MUSE ECG/Min LA Interval 180 ms MUSE QRSD Interval 90 ms MUSE QT Interval 348 ms MUSE QTC Interval 446 ms MUSE P [place] 56 degrees MUSE R [place] 5 degrees MUSE T Wave [place] 1 degrees MUSE Specimen Anatomical Collection Method Collection Time Receive d Time (Source) Location / / Volume Laterality 02/05/2021 11:08 02/05/2021 AM MACHINE II COREMAKER 11:21 AM MACHINE II COREMAKER Impressions MUSE - 02/05/2021 11:21 AM MACHINE II COREMAKER Normal sinus rhythm Normal ECG When compared [...] No significant change was found Reviewed by MICHLELE Mancia Efe Childress D.O. ECG ORDERABLES Performing [...] tablet 1,000 mg Given 02/05/2021 1:42 PM MACHINE II COREMAKER 1,000 mg (TYLENOL) 1,000 mg, oral, Once, On Fri02/05/21 at 1312, For 1 dose acetaminophen tablet 1,000 mg (TYLENOL) Given 02/05/2021 9:27 PM MACHINE II COREMAKER 1,000 mg 1,000 mg, oral, Every 6 hours PRN, moderate pain or score 4-6 of 10, Starting on Fri02/05/21 at 1528 atorvastatin tablet 20 mg (LIPITOR) Given 02/06/2021 8:40 PM MACHINE II COREMAKER 20 mg 20 mg, oral, Daily at bedtime, First dose on Fri02/05/21 at 2100 Given 02/05/2021 9:27 PM MACHINE II COREMAKER 20 mg calcium carbonate chewable tablet Given 02/05/2021 7:0 9 PM MACHINE II COREMAKER 200 mg of calcium 200 mg of calcium (TUMS) 200 mg of calcium, oral, Daily PRN, heartburn, indigestion, Starting on Fri02/05/21 at 1902, Doses listed are in mg of elemental calcium. Take with food. 500 mg calcium carbonate contains 200 mg of elemental calcium. enoxaparin injection 40 mg Given 02/07/2021 9:25 AM MACHINE II COREMAKER 40 mg Right Upper Arm (LOVENOX) (Back) 40 mg, subcutaneous, Every 12 hours scheduled, First dose on Fri02/05/21 at 1545 Given 02/06/2021 8:39 PM MACHINE II COREMAKER 40 mg Left Upper Arm (Back) Given 02/06/2021 8:53 AM MACHINE II COREMAKER 40 mg Left Upper Arm (Back) iohexoL 350 mg iodine/mL solution 1-200 mL Given 02/05/2021 11:5 7 AM MACHINE II COREMAKER 93 mL (OMNIPAQUE) 1-200 mL, intravenous, Once in imaging, contrast, Starting on Fri02/05/21 at 1154, For 1 dose, Dose per Radiant Medication Guidelines ketorolac injection 30 mg (TORADOL) Given 02/05/2021 12:56 PM MACHINE II COREMAKER 30 mg 30 mg, intravenous, Once, On Fri02/05/21 at 1142, For 1 dose, Adult IV push rate: Over 15 seconds. Peds IV push rate: Over 1 minute. 60 mg dose only for IM, not recommended for IV. lisinopriL tablet 10 mg (PRINIVIL,ZESTRI L) Given 02/06/2021 8:40 PM MACHINE II COREMAKER 10 mg 10 mg, oral, Once, On Fri02/06/21 at 2000, For 1 dose lisinopriL tablet 20 mg (PRINIVIL,ZESTRI L) Given 02/07/2021 9:25 AM MACHINE II COREMAKER 20 mg 20 mg, oral, Daily, First dose on Fri02/07/21 at 0900 lisinopril-hydroCHLOROthiazide 10-12.5 mg Given 2020 8:53 AM MACHINE II COREMAKER 2 tablets per tablet 2 tablet (PRINZIDE,ZESTORETIC ) 2 tablet, oral, Daily, First dose on Fri02/06/21 at 0900 melatonin tablet 3 mg Given 02/06/2021 8:40 PM MACHINE II COREMAKER 3 mg 3 mg, oral, Daily at bedtime, First dose on Fri02/05/21 at 2100 Given 02/05/2021 9:27 PM MACHINE II COREMAKER 3 mg metoprolol succinate 24 hr tablet 25 mg Given 02/07/2021 9:25 AM MACHINE II COREMAKER 25 mg (TOPROL-XL) 25 mg, oral, Daily, First dose on Fri02/06/21 at 0900, for blood pressure Do NOT crush or chew. Tablet may be split on score if needed. Given 02/06/2021 8:53 AM MACHINE II COREMAKER 25 mg NaCl 0.9 % bolus 1,000 mL New Bag 02/05/2021 11:17 AM MACHINE II COREMAKER 1,000 mL 1000 mL/hr 1,000 mL, intravenous, at 1,000 mL/hr, Administer over 1 Hours, Once, On Fri02/05/21 at 1102, For 1 dose NaCl 0.9 % bolus 100 mL Bolus from Bag 02/05/2021 11:56 AM MACHINE II COREMAKER 100 mL 100 mL/hr 100 mL, intravenous, at 100 mL/hr, Administer over 1 Hours, Once in imaging, Post Contrast, Starting on Fri02/05/21 at 1154, For 1 dose NaCl 0.9% infusion New Bag 02/06/2021 8:24 PM MACHINE II COREMAKER 125 mL/hr 125 mL/hr 125 mL/hr, intravenous, Continuous, Starting on Fri02/05/21 at 1157 New Bag 02/06/2021 12:05 PM MACHINE II COREMAKER 125 mL/hr 125 mL/hr Rate/Dose Change 02/06/2021 11:21 AM MACHINE II COREMAKER 125 mL/hr 125 mL/hr ondansetron (PF) injection 4 mg (ZOFRAN) Given 02/05/2021 11:18 AM MACHINE II COREMAKER 4 mg 4 mg, intravenous, Once, On Fri02/05/21 at 1102, For 1 dose ondansetron ODT disintegrating tablet 4 mg Given 02/06/2021 4:51 AM MACHINE II COREMAKER 4 mg (ZOFRAN-ODT) 4 mg, oral, Every 8 hours PRN, nausea, vomiting, Starting on Fri02/05/21 at 1526, When splitting ODT at bedside, handle with gloves and a pill splitter to prevent moisture contact. Given 02/05/2021 7:26 PM MACHINE II COREMAKER [address] tablet 40 mg (PROTONIX) Given 02/07/2021 6:28 AM MACHINE II COREMAKER 40 mg 40 mg, oral, Daily before breakfast, First dose on Fri02/06/21 at 0700, Swallow whole. Do NOT crush, chew, or split tablet. Given 02/06/2021 6:20 AM MACHINE II COREMAKER 40 mg potassium chloride ER tablet 40 [...] injection 10 mL Given 02/05/2021 11:56 AM MACHINE II COREMAKER 10 mL 10 mL, intravenous, As needed, line care, Starting on Fri02/05/21 at 1154 sodium chloride 0.9 % injection 3 mL Given 02/07/2021 9:25 AM MACHINE II COREMAKER 3 mL 3 mL, intravenous, Every 12 hours scheduled, First dose on Fri02/05/21 at 2100, Peripheral Intravenous Catheter and Rapid Infusion Catheter, when no infusion to maintain patency traMADoL tablet 50 mg (ULTRAM) Given 02/06/2021 8:53 PM MACHINE II COREMAKER 50 mg 50 mg, oral, Every 6 hours PRN, severe pain or score 7-10 of 10, Starting on Fri02/05/21 at 1529 Given 02/06/2021 11:05 AM MACHINE II COREMAKER 50 mg Given 02/06/2021 4:51 AM MACHINE II COREMAKER 50 mg documented in this encounter Active and Recently Administered Medications Times are shown in MACHINE II COREMAKER. Scheduled Medication Order 02/05/2021 02/06/2021 02/07/2021 acetaminophen [...] (Given - Pro vider: Helga Ewing L.P.N.) 0871 (Given - Provider: Helga monk L.P.N.)2038 (Given [...] - Provider: Vernell Dumont(R)(CT), R.T.(R) - Comment: [id number]) 1-200 mL, intravenous, Once in imaging, contrast, [...] Muriel Garcia R.NNikhil)2053 (Given - Provider: Cecily Yuong RNikhilNNikhil) 50 mg, oral, Every 6 hours PRN, severe p ain or score 7-10 of 10, Starting on Fri02/05/21 at 1529 documented in this encounter Additional Health Concerns Assessment Noted Time PHQ-9 Depression Total Score: 2 09/17/2018 9:08 AM CDT documented as of this encounter Care Teams Paint And Table Edger Relationship Specialty Start Date End Date Norma Kenny APRN, C.N.P. PCP - General 09/12/[address] [facility] [place] [address] documented as of this encounter
--- OUTSIDE RECORDS SUMMARY | 2022-01-29 04:12 | XMS_ITS | Encounter Summary ---
:1965 Author Organization [facility] Address [address] [place] [address] Care Team Providers Name Role Phone Norma Solis APRN, C.N.P. Primary Care Provider [phone] Reason for Visit Reason Comments Med Refill Encounter Details Date Type Department Care Team Description 03/22/2021 Refill Department of Family Medicine Caden Solis APRN, Med Refill in [facility] so C.N.P. 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 - 03/22/2021 11:38 AM MANAGER DELIVERY Medication Name:LORazepam (ATIVAN) 1 mg tablet Last Refill: Ordered on: 03/02/2021 Authorized by: NORMA SOLIS Dispense: 10 tablet Refills: 0 ordered Last Office Visit:03/02/21 with zac Due for Office Visit: Future Office Visit:04/03/2021 with zac Last Blood Pressure: 125/81 Last Set of Labs: Last PHQ-9: PHQ9 Score 03/02/2021 PHQ-9 Total Score (max 27) 4 Last MELODY-7: Phamacy: [facility] in [place] [facility] DELIV[place] documented in this encounter Plan of Treatment Upcoming Encounters Date Type Specialty Care Team Description 02/15/2022 Office Visit Orthopedic Surgery RavinsdMadyson haq, D.ONikhil [address] [place], [place] [phone] (Wo rk) documented as of this encounter Visit Diagnoses Diagnosis Anxiety documented in this encounter Additional Health Concerns Assessment Noted Time PHQ-9 Depression Total Score: 4 03/02/2021 10:28 AM CS T documented as of this encounter Care Teams Mortgage Processing Manager Relationship Specialty Start Date End Date Norma Solis, ACTIVITIES DIRECTOR, C.N.P. PCP - General 09/12/[address] [place] [address] documented as of this encounter
--- OUTSIDE RECORDS SUMMARY | 2022-01-29 04:12 | XMS_ITS | Encounter Summary ---
:1965 Author Organization [facility] Address [address] [place] [address] Care Team Providers Name Role Phone Norma Kenny APRN, C.N.P. 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 PCP - General 09/12/[address] [place] [phone] documented as of this encounter
--- OUTSIDE RECORDS SUMMARY | 2022-01-29 04:12 | XMS_ITS | Encounter Summary ---
:1965 Author Organization [facility] Address [address] [place] [address] Care Team Providers Name Role Phone Norma Kenny APRN, C.N.PNikhil Primary Care Provider [phone] Reason for Visit Reason Comments Fatigue Encounter Details Date Type Department Care Team Description 01/24/2021 Nurse Triage Department of [facility] Samantha Sibley Fat igue [facility] in [place], M.S.N., R.N. 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 - 01/24/2021 5:14 PM CDT [...] 4 hours. Patient was warm transferred to [facility] at the clinic for further assistance. Verma [...] fluid intake) Protocols used: WEAKNESS (GENERALIZED) AND [id number] Care Advice Patient/Caregiver understands and will follow care advice?: Yes, able to teach back SEE HCP WITHIN 4 HOURS (OR PCP TRIAGE): * IF OFFICE WILL BE OPEN: You need to be seen within the next 3 or 4 hours. Call your doctor (or FOOT TENDER/PA) now or as soon as the office [...] need to be seen. Your doctor (or FOOT TENDER/PA) will want to talk with you to [...] Surgery Madyson Rosa, D.ONikhil [address] [place], [place] [phone] (Wo rk) documented as of this encounter Visit Diagnoses Not on filedocumented in this encounter Additional Health Concerns Assessment Noted Time PHQ-9 Depression Total Score: 2 09/17/2018 9:08 AM CDT documented as of this encounter Care Teams Sap Basis Consultant Relationship Specialty Start Date End Date Norma Kenny APRN, C.N.P. PCP - General 09/12/[address] [place] [address] documented as of this encounter
--- OUTSIDE RECORDS SUMMARY | 2022-01-29 04:12 | XMS_ITS | Encounter Summary ---
:1965 Author Organization [facility] Address [address] [place] [address] Care Team Providers Name Role Phone Norma Kenny APRN, C.N.PNikhil Primary Care Provider [phone] Encounter Details Date Type Department Care Team Description 03/03/2021 Orders Only Department of Family Norma Kenny [facility] Cancer Colon Medicine in [facility] STEVEN C.N.PNikhil [place], [place] [address] [place] [phone] Social History Tobacco Use Types Packs/Day Years [...] How often do you attend sikhism or yazidi More than 4 time s [...] at Date Recorded Male 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 documented as of this encounter Plan of Treatment Upcoming Encounters Date Type Specialty Care Team Description 02/15/2022 Office Visit Orthopedic Surgery Madyson Rosa, D.ONikhil [address] [place], [place] [phone] (Wo rk) Pending Results Name Type Priority Associated Diagnoses Date/Ti me Cologuard-Sent Out Lab Lab Routine Screening Cancer C olon 03/03/2021 2:00 AM ECO INDUSTRIAL DEVELOPMENT CONSULTANT documented as of this encounter Visit Diagnoses Diagnosis Screening Cancer Colon documented in this encounter Additional Health Concerns Assessment Noted Time PHQ-9 Depression Total Score: 4 03/02/2021 10:28 AM CS T documented as of this encounter Care Teams Cost Report Clerk Relationship Specialty Start Date End Date Norma Kenny, STEVEN, C.N.P. PCP - General 09/12/[address] [place] [phone] documented as of this encounter
--- OUTSIDE RECORDS SUMMARY | 2022-01-29 04:12 | XMS_ITS | Encounter Summary ---
:1965 Author Organization [facility] Address [address] [place] [address] Care Team Providers Name Role Phone Norma Kenny APRN, C.N.P. Primary Care Provider [phone] Reason for Visit Reason Comments Med Refill Encounter Details Date Type Department Care Team Description 11/25/2020 Refill Department of Family Medicine Caden Kenny APRN, Med Refill in [facility] so C.N.P. 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 [address] [place], [place] [phone] (Wo rk) documented as of this encounter Visit Diagnoses Diagnosis Hypertension Essential Primary documented in this encounter Additional Health Concerns Assessment Noted Time PHQ-9 Depression Total Score: 2 09/17/2018 9:08 AM CDT documented as of this encounter Care Teams Air Conditioning Technician Relationship Specialty Start Date End Date Norma Kenny APRN, C.N.P. PCP - General 09/12/[address] [place] [address] documented as of this encounter
--- OUTSIDE RECORDS SUMMARY | 2022-01-29 04:12 | XMS_ITS | Encounter Summary ---
:1965 Author Organization [facility] Address [address] [place] [address] Care Team Providers Name Role Phone Norma Kenny APRN, C.N.P. Primary Care Provider [phone] Reason for Visit Reason Comments Med Refill today if possible Encounter Details Date Type Department Care Team Description 02/16/2021 Refill Department of [facility] Norma Kenny Me d Refill (today if Medicine in [place], STEVEN, C. N.P. 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 - 02/16/2021 11:19 AM MEDICAL RADIATION THERAPIST Unable to refill per protocol: Name of Medications Needing Refill: Atorvastatin Last Refill Date: ? Additional Information: Last / Future Appointment: Last OV 01/25/21 Tamar No future OV scheduled. CAL RADIATION THERAPIST Telephone Encounter - Noelle Collins - 02/16/2021 [...] do you use (include location)? Christina Booth CAL RADIATION THERAPIST documented in this encounter Plan of Treatment Upcoming Encounters Date Type Specialty Care Team Description 02/15/2022 Office Visit Orthopedic Surgery Madyson Rosa, D.O. [address] [place], [place] [phone] (Wo rk) documented as of this encounter Visit Diagnoses Diagnosis Hyperlipidemia documented in this encounter Additional Health Concerns Assessment Noted Time PHQ-9 Depression Total Score: 2 09/17/2018 9:08 AM CDT documented as of this encounter Care Teams Wood Piler Relationship Specialty Start Date End Date Norma Kenny APRN, C.N.P. PCP - General 09/12/[address] [facility] [place] [address] documented as of this encounter
--- OUTSIDE RECORDS SUMMARY | 2022-01-29 04:12 | XMS_ITS | Encounter Summary ---
:1965 Author Organization [facility] Address [address] [place] [address] Care Team Providers Name Role Phone Norma Kenny APRN, C.N.P. Primary Care Provider [phone] Reason for Visit Reason Comments Fatigue weakness legs bilateral Appointment Request (Routine) - Closed Specialty Diagnoses / Procedures Referred By Contact Refer red To Contact Family Medicine Referral ID Status Reason Start Date Expiration Date Visits Requ ested Visits Authorized [id number] Closed 01/25/2021 01/25/2022 1 1 Encounter Details Date Type Department Care Team Description 01/25/2021 Office Visit Department of Family Efe Boyle Fati gue (Primary Dx); Medicine in [facility] Nausea; [place], [place] [address] Pain Low Back Unspecified; [address] [place], [place] High Risk Medication; [place] [address] Hypertension Essential Primary; [phone] Morbid Obesity Body Mass Ind ex 40.0-44.9 Adult ([facility]) Social History Tobacco Use Types Packs/Day Years [...] often do you attend oriental orthodox or methodist More than 4 time s [...] Date Recorded Male 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 My personal PHOTOGRAPHY COLORIST/PCP has put me into a post-COVID physical and occupational therapy program that [facility] started. I am hoping that this will [...] ask your provider about talking with a social science analyst who can refer you to support groups [...] with your health care provider. ? 2020 [employer] ([employer]). All rights reserved. [id number] documented in this encounter Progress Notes Efe [...] CBC with Differential, Blood - Thyroid Function [place] - Comprehensive Metabolic Panel - NT-Pro B-Type [...] magnetic resonance imaging through 1 of the [facility]. #4 High Risk Medication - [...] Team Description 02/15/2022 Office Visit Orthopedic Surgery [facility] [place] D.O. [address] [place] [phone] (Wo rk) documented as of [...] supplements. ??If the result does not [facility] clinical observations, repeat testing after patient refrains fr om the use of supplements for at least 12 hours. Specimen Anatomical Collection Method Collection Time Receive d Time (Source) Location / / Volume Laterality Blood (Blood, 01/25/2021 2:20 PM 01/26/20 21 2:29 Venous) CDT PM CDT Efe Boyle D.O. LAB BLOOD ADD-ON Performing Organization Address City/State/ZIP Code Phon e Number [facility]- [address] [place], [place] [address] [facility] [place] [address] [facility] [address] (ABNORMAL) Comprehensive [...] CDT eGFR-Black/Afri >90 >=60 01/25/2021 NPRG can [place] mL/min/BSA 3:05 PM CDT Comment: ----ADDITIONAL INFORMATION---- [...] D.O. LAB BLOOD ADD-ON Performing Organization Address City/[facility] Code Phon e Number [facility]- [address] [place], [place] [address] [place] [address] [place] [address] [facility] [place] Vitamin B12 Assay (01/25/2021 2:20 PM CDT) athologist Signature Vitamin B12 [phone] 01/25/2021 MKTO Assay, S ng/L 5:45 PM CDT Comment: Biotin has been identified by the aelxis huang as a potential interfering substance. ??Higher [...] D.O. LAB BLOOD ADD-ON Performing Organization Address City/[facility]/ZIP Code Phon e Number [facility]- [facility] [place] [address] [place] [address] [address] Thyroid Function [place] (01/25/2021 2:20 PM CDT) athologist Signature TSH, Sensitive 1.6 0.3 - 4.2 01/25/2021 NPRG mIU/L 3:03 PM CDT Specimen Anatomical Collection Method Collection Time Receive d Time (Source) Location / / Volume Laterality Blood (Blood, 01/25/2021 2:20 PM 01/26/20 21 2:29 Venous) CDT PM CDT Efe Boyle D.O. LAB BLOOD ADD-ON Performing Organization Address City/State/ZIP Code Phon e Number [facility]- [address] [place], [place] [address] [facility] [place] [address] (ABNORMAL) CBC with Differential, Blood (01/25/2021 2:20 PM CDT) [facility] Method Time Signature Hemoglobin 15.5 13.2 [...] Organization Address City/State/ZIP Code Phon e Number [facility]- [address] [place], [place] [address] [facility] [place] [address] (ABNORMAL) SARS-CoV-2 Nucleocapsid Total Ab, S (01/25/2021 2:20 PM CDT) [facility] Method Time Signature SARS-CoV-2 Positive (A) [...] was performed using the [employer] El ecsys Sill-JYPD-[id number]-2 Reagent assay from [employer], which has received Emergency Use Authori zation(EUA) by the U.S. Food and Drug Administration . Fact sheets for this Emergency Use Autho rization (EUA) assay can be found at the following link s: For Healthcare Providers: https://www.fda.gov/media/705165/downloa d For Patients: https://www.fda.gov/media/641529/downloa d Specimen Anatomical Collection Method Collection Time Receive d Time (Source) Location / / Volume Laterality Blood (Blood, 01/25/2021 2:20 PM 01/27/20 7:04 Venous) CDT AM CDT Efe Boyle D.O. LAB MICROBIOLOGY - BLOOD ORD ERABLES Performing Organization Address City/State/ZIP Code Phon e Number [facility] - [address] [place], [place] [address] [facility] [place] [address] [facility] [address] documented in this encounter Visit Diagnoses Diagnosis Fatigue - Primary Nausea Pain Low Back Unspecified High Risk Medication Hypertension Essential Primary Morbid Obesity Body Mass Index 40.0-44.9 Adult (HCC) documented in this encounter Additional Health Concerns Assessment Noted Time PHQ-9 Depression Total Score: 2 09/17/2018 9:08 AM CDT documented as of this encounter Care Teams Tele Marketing Executive Relationship Specialty Start Date End Date Norma Kenny APRN, C.N.P. PCP - General 09/12/[address] [place] [phone] documented as of this encounter
--- OUTSIDE RECORDS SUMMARY | 2022-01-29 04:12 | XMS_ITS | Encounter Summary ---
:1965 Author Organization [facility] Address [address] [place] [address] Care Team Providers Name Role Phone Norma Kenny APRN C.N.P. 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 - 02/08/2021 12:25 PM CST Left message on home phone to call back SUBJECTIVE REASON FOR CALL Post-Hospital follow-up phone call with patient. Admission Date: 02/05/21 Discharge Date: 02/07/21 Discharge Diagnosis: PRINCIPAL DIAGNOSIS Hyponatremia LAYER Telephone Encounter - Violeta Leonard R.N. - 02/08/2021 12:22 PM CST 1st Attempt -- Unable to leave message as mailbox is Full SUBJECTIVE REASON FOR CALL Post-Hospital follow-up phone call with patient. Admission Date: 02/05/21 Discharge Date: 02/07/21 Discharge Diagnosis: PRINCIPAL DIAGNOSIS Hyponatremia LAYER documented in this encounter Plan of Treatment Upcoming Encounters Date Type Specialty Care Team Description 02/15/2022 Office Visit Orthopedic Surgery Madyson Rosa, D.ONikhil [address] [place], [place] [phone] (Wo rk) documented as of this encounter Visit Diagnoses Not on filedocumented in this encounter Additional Health Concerns Assessment Noted Time PHQ-9 Depression Total Score: 2 09/17/2018 9:08 AM CDT documented as of this encounter Care Teams Applications Packager Relationship Specialty Start Date End Date Norma Kenny APRN, C.N.P. PCP - General 09/12/[address] [place] [address] documented as of this encounter
--- OUTSIDE RECORDS SUMMARY | 2022-01-29 04:12 | XMS_ITS | Encounter Summary ---
:1965 Author Organization [facility] Address [address] [place] [address] Care Team Providers Name Role Phone Norma Kenny APRN, C.N.P. Primary Care Provider [phone] Reason for Visit Reason Comments Med Refill Encounter Details Date Type Department Care Team Description 02/08/2021 Refill [facility], [place] M.D. 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 PCP - General 09/12/[address] [place] [address] documented as of this encounter
--- OUTSIDE RECORDS SUMMARY | 2022-01-29 04:12 | XMS_ITS | Encounter Summary ---
:1965 Author Organization [facility] Address [address] [place] [address] Care Team Providers Name Role Phone Norma Kenny APRN C.N.PNikhil Primary Care Provider [phone] Encounter Details Date Type Department Care Team Description 01/26/2021 Clinical Communication Department of Chase Philippe, Medicine in [facility] INSIDE SALES EXECUTIVE [place], [place] [address] [place] [phone] Social History Tobacco Use Types Packs/Day Years [...] How often do you attend buddhism or anabaptism More than 4 time s [...] at Date Recorded 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 - 02/07/2021 3:48 PM COLD PRESS OPERATOR Pt had no desire to be seen [...] regard to this situation at this time. PRESS OPERATOR Telephone Encounter - Norma Kenny APRN, C.N.P. [...] patient as soon as possible today at [phone]. Thank you. Telephone Encounter - Norma Kenny [...] same symptoms. He can be reached at [phone]. Thank you. documented in this encounter Plan of Treatment Upcoming Encounters Date Type Specialty Care Team Description 02/15/2022 Office Visit Orthopedic Surgery RavinmoMadyson haq il, D.O. [address] [place], [place] [phone] (Wo rk) documented as of this encounter Visit Diagnoses Not on filedocumented in this encounter Additional Health Concerns Assessment Noted Time PHQ-9 Depression Total Score: 2 09/17/2018 9:08 AM CDT documented as of this encounter Care Teams Cell Inspector Relationship Specialty Start Date End Date Norma Kenny APRN, C.N.P. PCP - General 09/12/[address] [place] [address] documented as of this encounter
--- OUTSIDE RECORDS SUMMARY | 2022-01-29 04:12 | XMS_ITS | Encounter Summary ---
:1965 Author Organization [facility] Address [address] [place] [address] Care Team Providers Name Role Phone Norma Kenny APRN C.N.P. Primary Care Provider [phone] Reason for Referral MRI/CAT/PET Scan (Routine) - Pending Review Specialty Diagnoses / Procedures Referred By Contact Refer red To Contact Radiology Diagnoses Pain Low Back Unspecified Pain Back Thoracic Weakness Leg Patrizia Moura APRN, [facility] Region Procedures MR Thoracic Spine without IV Contrast C.N.P. [address] [place] [address] Referral ID Status Reason Start Date Expiration Date Visits V isits Requested Authorized [id number] Pending 02/21/2021 02/21/2022 1 1 Review O TECHNICIAN Outpatient (Routine) - Authorized Specialty Diagnoses / Procedures Referred By Contact Refer red To Contact Family Medicine Diagnoses Anxiety Patrizia Moura APRN, [facility] Region C.N.P. [address] [place] [address] Referral ID Status Reason Start Date Expiration Date Visits V isits Requested Authorized [id number] Authorized 02/21/2021 02/21/2022 1 1 O TECHNICIAN Reason for Visit Reason Comments Post Ed Visit Follow-up Seen in ED on 02/19 with gen eralized leg weakness and anxiety Insomnia Would like to get back on am nilsa Encounter Details Date Type Department Care Team Description 02/21/2021 Office Visit Department of [facility] Zeny, Fela Quinteros (Primary Dx); Medicine in [place] HARRIS Insomnia; [place], [place] [address] Pain Low Back Unspecified; [address] [place], [place] Pain Back Thoracic; [place] [address] Weakness Leg [phone] Social History Tobacco Use Types Packs/Day Years [...] How often do you attend shinto or confucianist More than 4 time s [...] at Date Recorded Male 03/25/2018 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 documented as of this encounter Last Filed Vital Signs Vital Sign Reading Time Taken Comments Blood Pressure 138/82 02/21/2021 1:31 PM PIANO TECHNICIAN Pulse 92 02/21/2021 12:52 PM PIANO TECHNICIAN Temperature 36.5 ??C (97.7 ??F) 02/21/2021 12:52 PM PIANO TECHNICIAN Respiratory Rate - - Oxygen Saturation 97% 02/21/2021 12:52 PM PIANO TECHNICIAN Inhaled Oxygen Concentration - - Weight 146 kg (321 lb) 02/21/2021 12:52 PM PIANO TECHNICIAN Height 188 cm (6' 2.02) 02/21/2021 12:52 PM PIANO TECHNICIAN Body Mass Index 41.2 02/21/2021 12:52 PM PIANO TECHNICIAN documented in this encounter Progress Notes Patrizia [...] reports symptoms have not been improving with direct care supervisor. He has not had any imaging. Heis [...] medication we want to use on a termite helper basis. He may also benefit from a [...] with his PCP or sooner if needed. O TECHNICIAN documented in this encounter Plan of Treatment Upcoming Encounters Date Type Specialty Care Team Description 02/15/2022 Office Visit Orthopedic Surgery Madyson Rosa, D.ONikhil [address] [place], [place] [phone] (Wo rk) Scheduled Orders Name Type Priority [...] as of this encounter Care Teams Chief Investment Officer Relationship Specialty Start Date End Date Norma Kenny APRN, C.N.P. PCP - General 09/12/[address] [place] [phone] documented as of this encounter
--- OUTSIDE RECORDS SUMMARY | 2022-01-29 04:13 | XMS_ITS | Encounter Summary ---
:1965 Author Organization [facility] Address [address] [place] [address] Care Team Providers Name Role Phone Norma Kenny APRN, C.N.P. Primary Care Provider Encounter Details Date Type Department Care Team Description 06/30/2019 Hospital Encounter Department of Radiology Elian Whitlock ra, Pain Scrotum in [facility] dudley ST[place]EN, C.N.P., [address] [facility] D.N.P. 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 [address] [place] [phone] (Wo rk) documented as of [...] documented as of this encounter Care Teams Oil Prospecting Observer Relationship Specialty Start Date End Date Norma Kenny APRN, C.N.P. PCP - General 09/12/[address] [place] [address] documented as of this encounter
--- OUTSIDE RECORDS SUMMARY | 2022-01-29 04:13 | XMS_ITS | Encounter Summary ---
:1965 Author Organization [facility] Address [address] [place] [address] Care Team Providers Name Role Phone Norma Kenny APRN, C.N.P. Primary Care Provider [phone] Encounter Details Date Type Department Care Team Description 05/01/2020 Orders Only [facility], Monitoring For FOAMITE MIXER, C.N.P. 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 [address] [place], [place] [phone] (Wo rk) documented as of this encounter Visit Diagnoses Diagnosis Monitoring For Therapeutic Drug Therapy documented in this encounter Additional Health Concerns Assessment Noted Time PHQ-9 Depression Total Score: 2 09/17/2018 9:08 AM CDT documented as of this encounter Care Teams Med Surg Rn Relationship Specialty Start Date End Date Norma Kenny, STEV[place], C.N.P. PCP - General 09/12/[address] [place] [phone] documented as of this encounter
--- OUTSIDE RECORDS SUMMARY | 2022-01-29 04:13 | XMS_ITS | Encounter Summary ---
:1965 Author Organization [facility] Address [address] [place] [address] Care Team Providers Name Role Phone Norma Kenny APRN, C.NNikhilPNikhil Primary Care Provider [phone] Reason for Visit Reason Comments Return Visit Encounter Details Date Type Department Care Team Description 06/18/2019 Clinical Communication Department of Reyes Ballard, Return Visit Urology in [facility] Paula, Ph.D. 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 PCP - General 09/12/[address] [place] [phone] documented as of this encounter
--- OUTSIDE RECORDS SUMMARY | 2022-01-29 04:13 | XMS_ITS | Encounter Summary ---
:1965 Author Organization [facility] Address [address] [place] [address] Care Team Providers Name Role Phone Norma Kenny APRN, C.N.P. Primary Care Provider [phone] Reason for Visit Reason Comments Med Refill Encounter Details Date Type Department Care Team Description 06/26/2019 Refill Department of Family Medicine Caden Kenny APRN, Med Refill in [facility] so C.N.P. 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 PCP - General 09/12/[address] [place] [address] documented as of this encounter
--- OUTSIDE RECORDS SUMMARY | 2022-01-29 04:13 | XMS_ITS | Encounter Summary ---
:1965 Author Organization [facility] Address [address] [place] [address] Care Team Providers Name Role Phone Norma Kenny APRN, C.N.P. Primary Care Provider [phone] Reason for Visit Reason Comments Blood Pressure Check Outpatient (Routine) - Closed Specialty Diagnoses / Procedures Referred By Contact Refer red To Contact Family Medicine Norma Kenny APRN, [facility] C.N.P. [address] [place] [address] Referral ID Status Reason Start Date Expiration Date Visits Requ ested Visits Authorized [id number] Closed 08/18/2019 08/17/2020 1 1 Encounter Details Date Type Department Care Team Description 09/06/2019 Nurse Only Department of [facility] Caden Kenny APRN, C.N.P. 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 PCP - General 09/12/[address] [place] [phone] documented as of this encounter
--- OUTSIDE RECORDS SUMMARY | 2022-01-29 04:13 | XMS_ITS | Encounter Summary ---
:1965 Author Organization [facility] Address [address] [place] [address] Care Team Providers Name Role Phone Nroma Kenny APRN CNikhilNNikhilPNikhil Primary Care Provider [phone] Encounter Details Date Type Department Care Team Description 08/24/2019 Clinical Communication Department of Urology Cole Ballard, in [place], John roque M.D., Ph.D. 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 PCP - General 09/12/[address] [place] [address] documented as of this encounter
--- OUTSIDE RECORDS SUMMARY | 2022-01-29 04:13 | XMS_ITS | Encounter Summary ---
:1965 Author Organization [facility] Address [address] [place] [address] Care Team Providers Name Role Phone Norma Kenny APRN, C.N.P. Primary Care Provider [phone] Reason for Visit Reason Comments Med Refill Encounter Details Date Type Department Care Team Description 10/22/2019 Refill Department of Family Medicine Caden Kenny APRN, Med Refill in [facility] so C.N.P. 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 PCP - General 09/12/[address] [place] [address] documented as of this encounter
--- OUTSIDE RECORDS SUMMARY | 2022-01-29 04:13 | XMS_ITS | Encounter Summary ---
:1965 Author Organization [facility] Address [address] [place] [address] Care Team Providers Name Role Phone Norma Kenny APRN, C.N.P. Primary Care Provider [phone] Reason for Referral Outpatient (Routine) - Closed Specialty Diagnoses / Procedures Referred By Contact Refer red To Contact Family Medicine Norma Kenny APRN, [facility] C.N.P. [address] [place] [address] Referral ID Status Reason Start Date Expiration Date Visits Requ ested Visits Authorized [id number] Closed 08/18/2019 08/17/2020 1 1 Reason for Visit Reason Comments Med Refill Encounter Details Date Type Department Care Team Description 08/18/2019 Refill Department of Family Medicine Caden Kenny APRN, Med Refill in [facility] C.N.P. 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 documented as of this encounter Miscellaneous Notes [...] Visit Orthopedic Surgery Madyson Rosa D.ONikhil [address] [place] [phone] (Wo rk) Scheduled Referrals Name Type Priority Associated Diagnoses Order S [facility] Family Medicine Outpatient Referral Routine Expec tim: nurse visit 08/18/2019 (clinic) (Approximate), Expires: 08/17/2022 documented as of this encounter Visit Diagnoses Diagnosis Hyperlipidemia documented in this encounter Additional Health Concerns Assessment Noted Time PHQ-9 Depression Total Score: 2 09/17/2018 9:08 AM CDT documented as of this encounter Care Teams Addiction Counselor Relationship Specialty Start Date End Date Norma Kenny APRN, C.N.P. PCP - General 09/12/[address] [place] [phone] documented as of this encounter
--- OUTSIDE RECORDS SUMMARY | 2022-01-29 04:13 | XMS_ITS | Encounter Summary ---
:1965 Author Organization [facility] Address [address] [place] [address] Care Team Providers Name Role Phone Norma Kenny APRN, C.N.P. Primary Care Provider [phone] Reason for Visit Reason Comments Med Refill Encounter Details Date Type Department Care Team Description 01/25/2020 Refill Department of Family Medicine Caden Kenny APRN, Med Refill in [facility] so C.N.P. 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 - 01/27/2020 4:07 PM CDT Name of Medication(s) Needing Refill: LISINOPRIL-HCTZ 20/25MG TABLETS Additional Information: Last refill: 10/02/2019 Last Appointment: 01/18/2020 Future Appointment: No future appointments documented in this encounter Plan of Treatment Upcoming Encounters Date Type Specialty Care Team Description 02/15/2022 Office Visit Orthopedic Surgery Madyson Rosa il, D.ONikhil [address] [place], [place] [phone] (Wo rk) documented as of this encounter Visit Diagnoses Diagnosis Hypertension Essential Primary documented in this encounter Additional Health Concerns Assessment Noted Time PHQ-9 Depression Total Score: 2 09/17/2018 9:08 AM CDT documented as of this encounter Care Teams Web Design Instructor Relationship Specialty Start Date End Date Norma Kenny, MANUFACTURING ENGINEERING DIRECTOR, C.N.P. PCP - General 09/12/[address] [place] [address] documented as of this encounter
--- OUTSIDE RECORDS SUMMARY | 2022-01-29 04:13 | XMS_ITS | Encounter Summary ---
:1965 Author Organization [facility] Address [address] [place] [address] Care Team Providers Name Role Phone Norma Kenny APRN, C.N.P. 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 - 11/22/2019 10:31 AM CDT Patient called back and was transferred to id - he has poison oak rash on [...] Surgery Madyson Rosa D.ONikhil [address] [facility] [place] [phone] (Wo rk) documented as of this encounter Visit Diagnoses Not on filedocumented in this encounter Additional Health Concerns Assessment Noted Time PHQ-9 Depression Total Score: 2 09/17/2018 9:08 AM CDT documented as of this encounter Care Teams Mutuel Clerk Relationship Specialty Start Date End Date Norma Kenny APRN, C.N.P. PCP - General 09/12/[address] [place] [phone] documented as of this encounter
--- OUTSIDE RECORDS SUMMARY | 2022-01-29 04:13 | XMS_ITS | Encounter Summary ---
:1965 Author Organization [facility] Address [address] [place] [address] Care Team Providers Name Role Phone Norma Kenny APRN, C.N.P. Primary Care Provider [phone] Reason for Visit Reason Comments Med Refill Encounter Details Date Type Department Care Team Description 09/28/2019 Refill Department of Family Medicine Caden Kenny APRN, Med Refill in [facility] so C.N.P. 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 - 09/28/2019 1:31 PM CDT Last OV:06-23-2019 Last refill: 06-29-2019 Last labs: 05-21-2019 Upcoming appt: 03-01-2020 with Urology documented in this encounter Plan of Treatment Upcoming Encounters Date Type Specialty Care Team Description 02/15/2022 Office Visit Orthopedic Surgery Madyson Rosa il, D.ONikhil [address] [place], [place] [phone] (Wo rk) documented as of this encounter Visit Diagnoses Diagnosis Palpitations documented in this encounter Additional Health Concerns Assessment Noted Time PHQ-9 Depression Total Score: 2 09/17/2018 9:08 AM CDT documented as of this encounter Care Teams Livestock Auctioneer Relationship Specialty Start Date End Date Norma Kenny APRN, C.N.P. PCP - General 09/12/[address] [place] [address] documented as of this encounter
--- OUTSIDE RECORDS SUMMARY | 2022-01-29 04:13 | XMS_ITS | Encounter Summary ---
:1965 Author Organization [facility] Address [address] [place] [address] Care Team Providers Name Role Phone Norma Kenny APRN, C.N.P. Primary Care Provider [phone] Encounter Details Date Type Department Care Team Description 06/23/2019 Virtual Visit Department of Family Norma Kenny Pain Flank (Primary Medicine in Erik Salas APRN, C.N.P. 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 [...] Description 02/15/2022 Office Visit Orthopedic Surgery RavinnhMadyson haq, D.O. [address] [place], [place] [phone] (Wo rk) documented as of this encounter Visit Diagnoses Diagnosis Pain Flank - Primary documented in this encounter Additional Health Concerns Assessment Noted Time PHQ-9 Depression Total Score: 2 09/17/2018 9:08 AM CDT documented as of this encounter Care Teams Air Export Logistics Manager Relationship Specialty Start Date End Date Norma Kenny APRN, C.N.P. PCP - General 09/12/[address] [place] [address] documented as of this encounter
--- OUTSIDE RECORDS SUMMARY | 2022-01-29 04:13 | XMS_ITS | Encounter Summary ---
:1965 Author Organization [facility] Address [address] [place] [address] Care Team Providers Name Role Phone Norma Kenny APRN C.N.PNikhil Primary Care Provider [phone] Reason for Referral Outpatient (Routine) - Closed Specialty Diagnoses / Procedures Referred By Contact Refer red To Contact Urology Reyes Ballard M. D., Ph.D. [address] [address] Referral ID Status Reason Start Date Expiration Date Visits Requ ested Visits Authorized [id number] Closed 09/08/2019 09/07/2020 1 1 Reason for Visit Reason Comments Follow-up Outpatient (Routine) - Canceled Specialty Diagnoses / Procedures Referred By Contact Refer red To Contact Urology No Whitlock APRN, C.N.PNikhil, [facility] D.N.P. [address] [place] [phone] Referral ID Status Reason Start Date Expiration Date Visits V isits Requested Authorized [id number] Canceled 03/10/2019 03/09/2020 1 1 Encounter Details Date Type Department Care Team Description 09/08/2019 Office Visit Department of Urology Reyes Ballard M ass Epididymis (Primary Dx); in Two DotPaula Booth, Ph.D. 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 Reyes Ballard M.D., Ph.D. 09/08/2019 Department of Urology in [place], [place] documented in this encounter Plan of Treatment Upcoming Encounters Date Type Specialty Care Team Description 02/15/2022 Office Visit Orthopedic Surgery Madyson Rosa, D.O. [address] [place] [phone] (Wo rk) Scheduled Referrals Name Type Priority Associated Diagnoses Order S [facility] Urology office Outpatient Referral Routine Expect ed: visit (clinic) 03/09/2020 (Approximate), Expires: 09/07/2022 documented as of this encounter Visit Diagnoses Diagnosis Mass Epididymis - Primary Screening Examination Prostate Cancer documented in this encounter Additional Health Concerns Assessment Noted Time PHQ-9 Depression Total Score: 2 09/17/2018 9:08 AM CDT documented as of this encounter Care Teams Clinical Data Analyst Relationship Specialty Start Date End Date Norma Kenny, GYM TEACHER, C.N.P. PCP - General 09/12/[address] [place] [address] documented as of this encounter
--- OUTSIDE RECORDS SUMMARY | 2022-01-29 04:13 | XMS_ITS | Encounter Summary ---
:1965 Author Organization [facility] Address [address] [place] [address] Care Team Providers Name Role Phone Norma Kenny APRN, C.N.P. Primary Care Provider [phone] Reason for Visit Reason Comments Med Refill Encounter Details Date Type Department Care Team Description 11/16/2019 Refill Department of Family Medicine Caden Kenny APRN, Med Refill in [facility] so C.N.P. 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 PCP - General 09/12/[address] [place] [phone] documented as of this encounter
--- OUTSIDE RECORDS SUMMARY | 2022-01-29 04:13 | XMS_ITS | Encounter Summary ---
:1965 Author Organization [facility] Address [address] [place] [address] Care Team Providers Name Role Phone Norma Kenny APRN, C.N.P. Primary Care Provider [phone] Reason for Visit Reason Comments Communication Rash almost gone Encounter Details Date Type Department Care Team Description 01/12/2020 Clinical Communication Department of Rony Kenny ([facility] in Norma Salas, almost go ne) Erik Booth APRN, C.N.P. 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 I am still happy to see him [...] do you use (include location)? Christina in ADJUNCT PHLEBOTOMY INSTRUCTOR documented in this encounter Plan of Treatment Upcoming Encounters Date Type Specialty Care Team Description 02/15/2022 Office Visit Orthopedic Surgery Madyson Rosa, D.ONikhil [address] [place], [place] [phone] (Wo rk) documented as of this encounter Visit Diagnoses Not on filedocumented in this encounter Additional Health Concerns Assessment Noted Time PHQ-9 Depression Total Score: 2 09/17/2018 9:08 AM CDT documented as of this encounter Care Teams Transit Proof Machine Operator Relationship Specialty Start Date End Date Norma Kenny APRN, C.N.P. PCP - General 09/12/[address] [place] [address] documented as of this encounter
--- OUTSIDE RECORDS SUMMARY | 2022-01-29 04:13 | XMS_ITS | Encounter Summary ---
:1965 Author Organization [facility] Address [address] [place] [address] Care Team Providers Name Role Phone Norma Kenny APRN C.N.P. Primary Care Provider [phone] Reason for Visit Reason Comments Rash mostly on forearms Hypertension bp check Encounter Details Date Type Department Care Team Description 12/28/2019 Office Visit Department of Family Norma Kenny Pa in Shoulder Left (Primary Dx); Medicine in [facility] STEVEN C.N.P. 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 [address] [place], [place] [phone] (Wo rk) documented as of this encounter Visit Diagnoses Diagnosis Pain Shoulder Left - Primary Pain Rib Dermatitis documented in this encounter Additional Health Concerns Assessment Noted Time PHQ-9 Depression Total Score: 2 09/17/2018 9:08 AM CDT documented as of this encounter Care Teams Vibration Engineer Relationship Specialty Start Date End Date Norma Kenny APRN, C.N.P. PCP - General 09/12/[address] [place] [address] documented as of this encounter
--- OUTSIDE RECORDS SUMMARY | 2022-01-29 04:13 | XMS_ITS | Encounter Summary ---
:1965 Author Organization [facility] Address [address] [place] [address] Care Team Providers Name Role Phone Norma Kenny APRN, C.N.P. Primary Care Provider [phone] Reason for Visit Reason Comments Follow-up bilateral paratesticular mas s Outpatient (Routine) - Closed Specialty Diagnoses / Procedures Referred By Contact Refer red To Contact Urology Reyes Ballard M. D., Ph.D. [facility] [address] [place] [address] Referral ID Status Reason Start Date Expiration Date Visits Requ ested Visits Authorized [id number] Closed 09/08/2019 09/07/2020 1 1 Encounter Details Date Type Department Care Team Description 02/02/2020 Office Visit Department of Urology Reyes Ballard M ass Epididymis (Primary Dx); in Erik Booth M.D., Ph.D. 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 - 02/02/2020 8:45 AM CASINO CHANGE ATTENDANT Keep doing monthly testicular self-exams to keep an eye out for any groin, scrotum, or testicular changes. Let Dr. Ballard or another doctor know immediately if you notice any changes in your groin, scrotum, or testicles. We must be vigilant for any testicular cancer. Please contact and followup with your primary care physician regarding your groin and back pains. NO CHANGE ATTENDANT documented in this encounter Progress Notes Reyes [...] than 50% of this time spent on nhpj-et-abql counseling and coordination of cares. Reyes Ballard M.D., Ph.D. 02/02/2020 Department of Urology in [place], [place] NO CHANGE ATTENDANT documented in this encounter Plan of Treatment Upcoming Encounters Date Type Specialty Care Team Description 02/15/2022 Office Visit Orthopedic Surgery RavinsdshelleynvMadyson, D.O. [address] [place], [place] [phone] (Wo rk) documented as of this encounter Visit Diagnoses Diagnosis Mass Epididymis - Primary Screening Examination Prostate Cancer Pain Groin documented in this encounter Additional Health Concerns Assessment Noted Time PHQ-9 Depression Total Score: 2 09/17/2018 9:08 AM CDT documented as of this encounter Care Teams It Systems Analyst Consultant Relationship Specialty Start Date End Date Norma Kenny, STEVEN, C.N.P. PCP - General 09/12/[address] [place] [address] documented as of this encounter
--- OUTSIDE RECORDS SUMMARY | 2022-01-29 04:13 | XMS_ITS | Encounter Summary ---
:1965 Author Organization [facility] Address [address] [place] [address] Care Team Providers Name Role Phone Norma Kenny APRN, C.NNikhilPNikhil Primary Care Provider [phone] Reason for Visit Reason Comments COVID Nurse Line Encounter Details Date Type Department Care Team Description 08/04/2019 Clinical Communication Central Appointment Line, Covid COVHERMILO Nurse Line Office in [facility] [address] [place], [place] [address] Social History Tobacco Use Types Packs/Day Years [...] How often do you attend confucianist or yazdanism More than 4 time s [...] at Date Recorded Male 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 He was also transferred to [facility] to reschedule his appointment that is scheduled for today. Care Points provided: STANDARD PRECAUTIONS FOR ALL PATIENTS: Wash hands often with soap and water for at least 20 seconds, especially after blowing your nose, coughing, sneezing, or having been in a public place. If soap and water aren't available, use a hand academic records specialist that contains at least 60% alcohol. Avoid [...] essential items or medical care). Educational Resource: https://www.cdc.gov/coronavirus/2019-ncov/nacixjn-lfnoguk-qgmg/index.html Education: patient/caregiver Patient/caregiver able to teach back Patient agreeable to plan of care: Yes The following references were used: [facility] novel coronavirus (COVID- 19) resources Nursing judgement documented in this encounter Plan of Treatment Upcoming Encounters Date Type Specialty Care Team Description 02/15/2022 Office Visit Orthopedic Surgery Madyson Rosa D.O. [address] [place], [place] [phone] (Wo rk) documented as of this encounter Visit Diagnoses Not on filedocumented in this encounter Additional Health Concerns Assessment Noted Time PHQ-9 Depression Total Score: 2 09/17/2018 9:08 AM CDT documented as of this encounter Care Teams Lead Slot Technician Relationship Specialty Start Date End Date Norma Kenny APRN, C.N.P. PCP - General 09/12/[address] [place] [address] documented as of this encounter
--- OUTSIDE RECORDS SUMMARY | 2022-01-29 04:13 | XMS_ITS | Encounter Summary ---
:1965 Author Organization [facility] Address [address] [place] [address] Care Team Providers Name Role Phone Norma Kenny APRN C.N.P. Primary Care Provider [phone] Reason for Visit Reason Comments Blood Pressure Check Encounter Details Date Type Department Care Team Description 09/06/2019 Clinical Communication Department of Norma Kenny Bl ood Pressure Family Medicine in STEVEN Salas Check [place], C.N.P. 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 [address] [place], [place] [phone] (Wo rk) documented as of this encounter Visit Diagnoses Not on filedocumented in this encounter Additional Health Concerns Assessment Noted Time PHQ-9 Depression Total Score: 2 09/17/2018 9:08 AM CDT documented as of this encounter Care Teams Television Servicer Relationship Specialty Start Date End Date Norma Kenny, STEVEN, C.N.P. PCP - General 09/12/[address] [place] [address] documented as of this encounter
--- OUTSIDE RECORDS SUMMARY | 2022-01-29 04:13 | XMS_ITS | Encounter Summary ---
:1965 Author Organization [facility] Address [address] [place] [address] Care Team Providers Name Role Phone Norma Kenny APRN C.N.P. Primary Care Provider [phone] Encounter Details Date Type Department Care Team Description 01/07/2020 Clinical Communication Department of Chase Philippe, Medicine in 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 He has one application left of the [...] Madyson Rosa, D.ONikhil [address] [place], [place] [address] (Wo rk) documented as of this encounter Visit Diagnoses Not on filedocumented in this encounter Additional Health Concerns Assessment Noted Time PHQ-9 Depression Total Score: 2 09/17/2018 9:08 AM CDT documented as of this encounter Care Teams Drill Operator Automatic Relationship Specialty Start Date End Date Norma Kenny APRN, C.N.P. PCP - General 09/12/[address] [place] [phone] documented as of this encounter
--- OUTSIDE RECORDS SUMMARY | 2022-01-29 04:13 | XMS_ITS | Encounter Summary ---
:1965 Author Organization [facility] Address [address] [place] [address] Care Team Providers Name Role Phone Norma Kenny APRN, C.NNikhilPNikhil Primary Care Provider [phone] Encounter Details Date Type Department Care Team Description 06/30/2020 Orders Only [facility] Kg Rausch Jr., M.D. 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 [address] [place], [place] [phone] (Wo rk) documented as of this encounter Visit Diagnoses Not on filedocumented in this encounter Additional Health Concerns Assessment Noted Time PHQ-9 Depression Total Score: 2 09/17/2018 9:08 AM CDT documented as of this encounter Care Teams Functional Director Relationship Specialty Start Date End Date Nroma Kenny APRN, C.N.P. PCP - General 09/12/[address] [place] [address] documented as of this encounter
--- OUTSIDE RECORDS SUMMARY | 2022-01-29 04:13 | XMS_ITS | Encounter Summary ---
:1965 Author Organization [facility] Address [address] [place] [address] Care Team Providers Name Role Phone Norma Kenny APRN, C.N.P. Primary Care Provider [phone] Reason for Visit Reason Comments Med Refill Encounter Details Date Type Department Care Team Description 07/21/2020 Refill Department of Family Medicine Caden Kenny APRN, Med Refill in [facility] so C.N.P. 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 - 07/21/2020 12:53 PM CDT Name of Medication(s) Needing Refill: LISINOPRIL-HCTZ 20/25MG TABLETS Additional Information: last refill: 04/25/2020 Last Appointment: 01/18/2020 Future Appointment: No future appointments Routing to [facility] due to PCP being out on maternity. documented in this encounter Plan of Treatment Upcoming Encounters Date Type Specialty Care Team Description 02/15/2022 Office Visit Orthopedic Surgery Madyson Rosa il, D.O. [address] [place], [place] [phone] (Wo rk) documented as of this encounter Visit Diagnoses Diagnosis Hypertension Essential Primary documented in this encounter Additional Health Concerns Assessment Noted Time PHQ-9 Depression Total Score: 2 09/17/2018 9:08 AM CDT documented as of this encounter Care Teams Loss Control Engineer Relationship Specialty Start Date End Date Norma Kenny APRN, C.N.P. PCP - General 09/12/[address] [place] [address] documented as of this encounter
--- OUTSIDE RECORDS SUMMARY | 2022-01-29 04:13 | XMS_ITS | Encounter Summary ---
:1965 Author Organization [facility] Address [address] [place] [address] Care Team Providers Name Role Phone Norma Kenny APRN, C.NGregg Primary Care Provider [phone] Reason for Visit Reason Comments Communication Encounter Details Date Type Department Care Team Description 08/04/2019 Clinical Communication Department of Reyes Ballard, Communication [place], Ph.D. 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 - 08/09/2019 9:34 AM CDT Spoke to pt and at this time there is no available appointments with Dr. Ballard in [place] until September however can check with dyno technician to see if there is a cancellation list and/or offer him an appointment in [place]. Pt will talk with dyno technician. Pt was warm transferred to [facility] in scheduling to discuss appointment availability. Telephone [...] Surgery Madyson Rosa, D.ONikhil [address] [place], [place] [phone] (Wo rk) documented as of this encounter Visit Diagnoses Not on filedocumented in this encounter Additional Health Concerns Assessment Noted Time PHQ-9 Depression Total Score: 2 09/17/2018 9:08 AM CDT documented as of this encounter Care Teams Assistant Wrestling Coach Relationship Specialty Start Date End Date Norma Kenny, STEVEN, C.N.P. PCP - General 09/12/[address] [place] [phone] documented as of this encounter
--- OUTSIDE RECORDS SUMMARY | 2022-01-29 04:13 | XMS_ITS | Encounter Summary ---
:[address] [facility] Address [address] [place] [address] Care Team Providers Name Role Phone Norma Kenny APRN, C.N.P. Primary Care Provider [phone] Encounter Details Date Type Department Care Team Description 05/26/2019 Orders Only Department of [facility] Norma Kenny, Medicine in [facility] STEVEN, C. N.P. 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 PCP - General 09/12/[address] [place] [phone] documented as of this encounter
--- OUTSIDE RECORDS SUMMARY | 2022-01-29 04:13 | XMS_ITS | Encounter Summary ---
:1965 Author Organization [facility] Address [address] [place] [address] Care Team Providers Name Role Phone Norma Kenny APRN, C.N.P. Primary Care Provider [phone] Encounter Details Date Type Department Care Team Description 08/16/2020 Orders Only [facility] Kenny, Monitoring For UTILITY MAINTENANCE WORKER, C.N.P. 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 [address] [place], [place] [phone] (Wo rk) documented as of this encounter Visit Diagnoses Diagnosis Monitoring For Therapeutic Drug Therapy documented in this encounter Additional Health Concerns Assessment Noted Time PHQ-9 Depression Total Score: 2 09/17/2018 9:08 AM CDT documented as of this encounter Care Teams Smalltalk Developer Relationship Specialty Start Date End Date Norma Kenny, STEVEN, C.N.P. PCP - General 09/12/[address] [place] [phone] documented as of this encounter
--- OUTSIDE RECORDS SUMMARY | 2022-01-29 04:13 | XMS_ITS | Encounter Summary ---
:1965 Author Organization [facility] Address [address] [place] [address] Care Team Providers Name Role Phone Norma Kenny APRN, C.N.P. Primary Care Provider [phone] Reason for Visit Reason Comments Med Refill Encounter Details Date Type Department Care Team Description 09/23/2020 Refill Department of Family Medicine Caden Kenny APRN, Med Refill in [facility] so C.N.P. 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 documented as of this encounter Miscellaneous Notes [...] Last Set of Labs:05/19/2019 Pharmacy: [facility] RESIDENTIAL SALES ASSOCIATE documented in this encounter Plan of Treatment Upcoming Encounters Date Type Specialty Care Team Description 02/15/2022 Office Visit Orthopedic Surgery Madyson Rosa, D.ONikhil [address] [place], [place] [phone] (Wo rk) documented as of this encounter Visit Diagnoses Diagnosis Palpitations documented in this encounter Additional Health Concerns Assessment Noted Time PHQ-9 Depression Total Score: 2 09/17/2018 9:08 AM CDT documented as of this encounter Care Teams Computer Specialist Relationship Specialty Start Date End Date Norma Kenny APRN, C.N.P. PCP - General 09/12/[address] [place] [phone] documented as of this encounter
--- OUTSIDE RECORDS SUMMARY | 2022-01-29 04:13 | XMS_ITS | Encounter Summary ---
:1965 Author Organization [facility] Address [address] [place] [address] Care Team Providers Name Role Phone Norma Kenny APRN, C.N.P. Primary Care Provider [phone] Reason for Referral Outpatient (Routine) - Closed Specialty Diagnoses / Procedures Referred By Contact Refer red To Contact Family Medicine Diagnoses Hyperlipidemia Hypertension Essential Primary Gastroesophageal Reflux Disease Norma Kenny APRN, [facility] C.N.P. [address] [place] [address] Referral ID Status Reason Start Date Expiration Date Visits Requ ested Visits Authorized [id number] Closed 08/15/2020 08/15/2021 1 1 Reason for Visit Reason Comments Med Refill Encounter Details Date Type Department Care Team Description 08/15/2020 Refill Department of Family Medicine Caden Kenny APRN, Med Refill in [facility] C.N.P. 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 [address] [place], [place] [phone] (Wo rk) Scheduled Referrals Name Type Priority Associated Diagnoses Order S [facility] Family Medicine Outpatient Referral Routine Hyperlipidem ia [...] as of this encounter Care Teams Supervisor Model Making Relationship Specialty Start Date End Date Norma Kenny, STEVEN, C.N.P. PCP - General 09/12/[address] [place] [address] documented as of this encounter
--- OUTSIDE RECORDS SUMMARY | 2022-01-29 04:13 | XMS_ITS | Encounter Summary ---
:1965 Author Organization [facility] Address [address] [place] [address] Care Team Providers Name Role Phone Norma Kenny APRN, C.N.P. Primary Care Provider [phone] Encounter Details Date Type Department Care Team Description 11/06/2020 Orders Only [facility] Norma Kenny APRN, C.N.P. 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 PCP - General 09/12/[address] [place] [address] documented as of this encounter
--- OUTSIDE RECORDS SUMMARY | 2022-01-29 04:13 | XMS_ITS | Encounter Summary ---
:1965 Author Organization [facility] Address [address] [place] [address] Care Team Providers Name Role Phone Norma Kenny APRN C.N.P. Primary Care Provider [phone] Reason for Visit Reason Comments Follow-up rash Encounter Details Date Type Department Care Team Description 01/18/2020 Office Visit Department of Family Norma Kenny Cancer Colon (Primary Dx); Medicine in [facility] STEVEN Salas, C.N.P. 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 documented as of this encounter Last [...] quad (FLUZONE/FLUVARIX) (6 months and older) (PF) K HELPER documented in this encounter Plan of Treatment Upcoming Encounters Date Type Specialty Care Team Description 02/15/2022 Office Visit Orthopedic Surgery RavinalMadyson haq il, D.ONikhil [address] [place], [place] [phone] (Wo rk) documented as of this encounter Visit Diagnoses Diagnosis Screening Cancer Colon - Primary Dermatitis Pain Flank Morbid Obesity Body Mass Index 40.0-44.9 Adult (HCC) Need Vaccine Immunization Influenza documented in this encounter Additional Health Concerns Assessment Noted Time PHQ-9 Depression Total Score: 2 09/17/2018 9:08 AM CDT documented as of this encounter Care Teams Embedded Systems Designer Relationship Specialty Start Date End Date Norma Kenny APRN, C.N.P. PCP - General 09/12/[address] [place] [address] documented as of this encounter
--- OUTSIDE RECORDS SUMMARY | 2022-01-29 04:13 | XMS_ITS | Encounter Summary ---
:1965 Author Organization [facility] Address [address] [place] [address] Care Team Providers Name Role Phone Norma Kenny APRN, C.NNikhilPNikhil Primary Care Provider [phone] Reason for Visit Reason Comments Med Refill Encounter Details Date Type Department Care Team Description 10/22/2020 Refill Department of Family Medicine Shayna Burton M.D. Med Refill in 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 [address] [place], [place] [phone] (Wo rk) documented as of this encounter Visit Diagnoses Diagnosis Hypertension Essential Primary documented in this encounter Additional Health Concerns Assessment Noted Time PHQ-9 Depression Total Score: 2 09/17/2018 9:08 AM CDT documented as of this encounter Care Teams Landscape Architect Relationship Specialty Start Date End Date Norma Kenny, STEVEN, C.N.P. PCP - General 09/12/[address] [place] [address] documented as of this encounter
--- OUTSIDE RECORDS SUMMARY | 2022-01-29 04:13 | XMS_ITS | Encounter Summary ---
:1965 Author Organization [facility] Address [address] [place] [address] Care Team Providers Name Role Phone Norma Kenny APRN, C.N.P. Primary Care Provider [phone] Reason for Visit Reason Comments Med Refill Encounter Details Date Type Department Care Team Description 05/18/2020 Refill Department of Family Medicine Caden Kenny APRN, Med Refill in [facility] so C.N.P. 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 - 05/18/2020 1:01 PM HAND PRINTED CIRCUIT BOARD ASSEMBLER Addended by: ROSI POP on: 05/18/2020 01:01 PM Modules accepted: Orders PRINTED CIRCUIT BOARD ASSEMBLER Telephone Encounter - Norma Kenny APRN C.N.PNikhil - 05/18/2020 11:52 AM HAND PRINTED CIRCUIT BOARD ASSEMBLER Due for labs/visit? Thanks, TK PRINTED CIRCUIT BOARD ASSEMBLER Telephone Encounter - Rosi Pop R.N. - 05/18/2020 11:47 AM CST Last office visit 01/18/2020 Norma Kenny Last lipid panel 05/21/2019 PRINTED CIRCUIT BOARD ASSEMBLER documented in this encounter Plan of Treatment Upcoming Encounters Date Type Specialty Care Team Description 02/15/2022 Office Visit Orthopedic Surgery Madyson Rosa il, D.O. [address] [place], [place] [phone] (Wo rk) documented as of this encounter Visit Diagnoses Diagnosis Hyperlipidemia documented in this encounter Additional Health Concerns Assessment Noted Time PHQ-9 Depression Total Score: 2 09/17/2018 9:08 AM CDT documented as of this encounter Care Teams Dental Detail Representative Relationship Specialty Start Date End Date Norma Kenny APRN, C.N.P. PCP - General 09/12/[address] [place] [address] documented as of this encounter
--- OUTSIDE RECORDS SUMMARY | 2022-01-29 04:13 | XMS_ITS | Encounter Summary ---
:1965 Author Organization [facility] Address [address] [place] [address] Care Team Providers Name Role Phone Nomra Kenny APRN, C.N.P. Primary Care Provider [phone] Reason for Visit Reason Comments Med Refill Encounter Details Date Type Department Care Team Description 11/20/2020 Refill Department of Family Medicine Sebas Law M.D. Med Refill in [facility] [address] [place] [phone] (Wo rk) Social History Tobacco Use Types [...] at Date Recorded Male 03/25/2018 1:01 PM PUFF IRONER documented as of this encounter Miscellaneous Notes [...] Surgery Madyson Rosa, Jarad.ONikhil [address] [place], [place] [phone] (Wo rk) documented as of this encounter Visit Diagnoses Diagnosis Hyperlipidemia documented in this encounter Additional Health Concerns Assessment Noted Time PHQ-9 Depression Total Score: 2 09/17/2018 9:08 AM CDT documented as of this encounter Care Teams Production Director Relationship Specialty Start Date End Date Norma Kenny APRN, C.N.P. PCP - General 09/12/[address] [place] [phone] documented as of this encounter
--- OUTSIDE RECORDS SUMMARY | 2022-01-29 04:13 | XMS_ITS | Encounter Summary ---
:1965 Author Organization [facility] Address [address] [place] [address] Care Team Providers Name Role Phone Norma Kenny APRN, C.N.P. Primary Care Provider [phone] Reason for Visit Reason Comments Med Refill Encounter Details Date Type Department Care Team Description 04/25/2020 Refill Department of Family Medicine Caden Kenny APRN, Med Refill in [facility] so C.N.P. 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 - 04/25/2020 8:29 AM CST Name of medication: Lisinopril-HCTZ 20-25mg Last Refilled: 01/28/2020 Additional Information: Last labs 05/21/2019 Last/Next Appointment: Coming due for annual will proxy NTORY PLANNER documented in this encounter Plan of Treatment Upcoming Encounters Date Type Specialty Care Team Description 02/15/2022 Office Visit Orthopedic Surgery Madyson Rosa, D.ONikhil [address] [place], [place] [address] (Wo rk) documented as of this encounter Visit Diagnoses Diagnosis Hypertension Essential Primary documented in this encounter Additional Health Concerns Assessment Noted Time PHQ-9 Depression Total Score: 2 09/17/2018 9:08 AM CDT documented as of this encounter Care Teams Human Resources File Clerk Relationship Specialty Start Date End Date Norma Kenny APRN, C.N.P. PCP - General 09/12/[address] [place] [address] documented as of this encounter
--- OUTSIDE RECORDS SUMMARY | 2022-01-29 04:14 | XMS_ITS | Encounter Summary ---
:1965 Author Organization [facility] Address [address] [place] [address] Care Team Providers Name Role Phone Norma Kenny APRN C.N.P. Primary Care Provider [phone] Encounter Details Date Type Department Care Team Description 05/03/2019 Clinical Communication Department of [facility] Chase Kenny, Medicine in [facility] [place], [place], [place] [address] [place] [address] [phone] Social History Tobacco Use Types Packs/Day Years [...] How often do you attend islam or confucianism More than 4 time s per year [...] at Date Recorded Male 03/25/2018 1:01 PM LOBSTER CATCHER documented as of this encounter Miscellaneous Notes Telephone Encounter - Jeannette Bernardo L.P.N. - 05/12/2019 4:37 PM LOBSTER CATCHER Pt will be keeping appointment for 05/19/2019 TER CATCHER Telephone Encounter - Norma Kenny APRN, C.NGregg - 05/07/2019 8:46 AM LOBSTER CATCHER I think he should see one of my physician colleagues sooner if they have an opening, as they may have some new insight for us in regards to his pain. That will help with follow up as well as he has been lost to follow up in the past. Thanks, TK TER CATCHER Telephone Encounter - Jeannette Bernardo L.P.N. - 05/03/2019 5:19 PM LOBSTER CATCHER Pt calls expressing concern of continued pain [...] has been discussed with you. Please advise. TER CATCHER Telephone Encounter - Leanne Solis - 05/03/2019 2:10 PM CST Patient requesting to talk to Jeannette Galan Specifically -- as he is still in pain on left side and wishes to see only Norma Kenny about it. Hoping to be squeezed in sometime this week. Thank you. TER CATCHER documented in this encounter Plan of Treatment Upcoming Encounters Date Type Specialty Care Team Description 02/15/2022 Office Visit Orthopedic Surgery Madyson Rosa, DaydayONikhil [address] [facility] [place] [phone] (Wo rk) documented as of this encounter Visit Diagnoses Not on filedocumented in this encounter Additional Health Concerns Assessment Noted Time PHQ-9 Depression Total Score: 2 09/17/2018 9:08 AM CDT documented as of this encounter Care Teams Bindery Assistant Relationship Specialty Start Date End Date Norma Kenny APRN, C.N.P. PCP - General 09/12/[address] [place] [phone] documented as of this encounter
--- OUTSIDE RECORDS SUMMARY | 2022-01-29 04:14 | XMS_ITS | Encounter Summary ---
:1965 Author Organization [facility] Address [address] [place] [address] Care Team Providers Name Role Phone Norma Kenny APRN, C.N.P. Primary Care Provider [phone] Encounter Details Date Type Department Care Team Description 02/23/2019 Orders Only Department of [facility] Norma Kenny, Medicine in [place], STEVEN, C. N.P. [place] [address] [place] [phone] (Wo rk) Social History Tobacco Use Types [...] How often do you attend voodoo or buddhism More than 4 time s [...] at Date Recorded Male 03/25/2018 1:01 PM NURSE MONITORING documented as of this encounter Plan of Treatment Upcoming Encounters Date Type Specialty Care Team Description 02/15/2022 Office Visit Orthopedic Surgery Madyson Rosa, D.ONikhil [address] [place], [place] [phone] (Wo rk) documented as of this encounter Visit Diagnoses Not on filedocumented in this encounter Additional Health Concerns Assessment Noted Time PHQ-9 Depression Total Score: 2 09/17/2018 9:08 AM CDT documented as of this encounter Care Teams Marine Service Station Attendant Relationship Specialty Start Date End Date Norma Kenny, STEVEN, C.N.P. PCP - General 09/12/[address] [place] [phone] documented as of this encounter
--- OUTSIDE RECORDS SUMMARY | 2022-01-29 04:14 | XMS_ITS | Encounter Summary ---
:1965 Author Organization [facility] Address [address] [place] [address] Care Team Providers Name Role Phone Norma Kenny APRN C.N.P. Primary Care Provider [phone] Encounter Details Date Type Department Care Team Description 02/12/2019 Hospital Encounter Department of Radiology, Chase Kenny, Pain Rib [facility], in STEVEN, C.N. P. [facility] [address] [place] [phone] Social History Tobacco Use Types Packs/Day Years [...] How often do you attend bahai or confucianism More than 4 time s [...] at Date Recorded Male 03/25/2018 1:01 PM CARDIOLOGY TECH documented as of this encounter Medications at [...] Visit Orthopedic Surgery Madyson Rosa, D.ONikhil [address] [place] [phone] (Wo rk) documented as of this encounter Procedures Procedure Name Priority Date/Time Associated Comments Diagnosis DX RIBS RIGHT 2 VIEWS RAD - Routine 02/12/2019 2:07 Pain Rib Re sults for WITH CHEST (most inpatients PM CARDIOLOGY TECH this proced ure POSTEROANTERIOR 1 VIEW and all are i n the outpatients) results section. documented in this encounter Results DX Ribs Right 2 Views with Chest Posteroanterior 1 View (02/12/2019 2:07 PM CARDIOLOGY TECH) Anatomical Region Laterality Modality Ribs, Chest, Musculoskeletal RST LOS, Musculoskeletal Right Computed Radiography ARZ LOS, Muskuloskeletal FLA LOS Specimen (Source) Anatomical Collection Method Collection Time Re ceived Time Location / / Volume Laterality 02/12/2019 2:11 PM CARDIOLOGY TECH Impressions 02/12/2019 2:12 PM CARDIOLOGY TECH Negative chest and RIGHT ribs. Narrative 02/12/2019 2:12 PM CARDIOLOGY TECH EXAM: DX RIBS RIGHT 2 VIEWS WITH [...] Norma Kenny APRN, C.N.P. IMG DIAGNOSTIC IMAGING MA OCEDURES documented in this encounter Visit Diagnoses Diagnosis Pain Rib documented in this encounter Additional Health Concerns Assessment Noted Time PHQ-9 Depression Total Score: 2 09/17/2018 9:08 AM CDT documented as of this encounter Care Teams General Adjuster Relationship Specialty Start Date End Date Norma Kenny APRN, C.N.P. PCP - General 09/12/[address] [place] [phone] documented as of this encounter
--- OUTSIDE RECORDS SUMMARY | 2022-01-29 04:14 | XMS_ITS | Encounter Summary ---
:1965 Author Organization [facility] Address [address] [place] [address] Care Team Providers Name Role Phone Norma Kenny APRN, C.NNikhilPNikhil Primary Care Provider [phone] Encounter Details Date Type Department Care Team Description 09/23/2018 Clinical Communication Department of [facility] Artie Butler ae, Medicine in [place], [place] [phone] [place] [address] (Work) [place] [phone] Social History Tobacco Use Types Packs/Day Years [...] How often do you attend gnosticist or latter day More than 4 time [...] at Date Recorded Male 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 [address] [place], [place] [phone] (Wo rk) documented as of this encounter Visit Diagnoses Not on filedocumented in this encounter Additional Health Concerns Assessment Noted Time PHQ-9 Depression Total Score: 2 09/17/2018 9:08 AM CDT documented as of this encounter Care Teams Assembler Movement Relationship Specialty Start Date End Date Norma Kenny APRN, C.N.P. PCP - General 09/12/[address] [place] [address] documented as of this encounter
--- OUTSIDE RECORDS SUMMARY | 2022-01-29 04:14 | XMS_ITS | Encounter Summary ---
:1965 Author Organization [facility] Address [address] [place] [address] Care Team Providers Name Role Phone Norma Kenny APRN, C.N.P. Primary Care Provider [phone] Encounter Details Date Type Department Care Team Description 11/23/2018 Clinical Communication [facility] OR Maribel Watts, [address] [facility] [place], [place] [address] [place] [address] [place], [place] [phone] Social History Tobacco Use Types Packs/Day [...] or relatives? How often do you attend muslim or moravian More than 4 time s per year 09/17/2018 services? Do you belong to any clubs or organizations No 09/17/2018 such as muslim groups, unions, fraternal or athletic groups, or [...] Date Recorded Male 03/25/2018 1:01 PM SUPERVISOR POWDERED SUGAR documented as of this encounter Miscellaneous Notes [...] Surgery Madyson Rosa, DNikhilONikhil [address] [place], [place] [phone] (Wo rk) documented as of this encounter Visit Diagnoses Not on filedocumented in this encounter Additional Health Concerns Assessment Noted Time PHQ-9 Depression Total Score: 2 09/17/2018 9:08 AM CDT documented as of this encounter Care Teams Housing Inspector Relationship Specialty Start Date End Date Norma Kenny APRN, C.N.P. PCP - General 09/12/[address] [place] [phone] documented as of this encounter
--- OUTSIDE RECORDS SUMMARY | 2022-01-29 04:14 | XMS_ITS | Encounter Summary ---
:1965 Author Organization [facility] Address [address] [place] [address] Care Team Providers Name Role Phone Norma Kenny APRN C.N.P. Primary Care Provider [phone] Reason for Visit Reason Comments Mass scrotum Outpatient (Routine) - Closed Specialty Diagnoses / Procedures Referred By Contact Refer red To Contact Urology Diagnoses Pain Groin Pain Scrotum Ame Beal APRN, [facility] C.N.P., R.N. [address] [facility] [address] [place] [address] Referral ID Status Reason Start Date Expiration Date Visits Requ ested Visits Authorized [id number] Closed 06/08/2018 06/08/2019 1 1 Encounter Details Date Type Department Care Team Description 03/10/2019 Comprehensive Visit Department of Urology Jaswinder Whitlock, Pain Groin; in [facility] STEVEN C.N.P., Pain Scrotum [place] D.N.P. [address] [place] [address] [address] [place] [phone] Social History Tobacco Use Types Packs/Day [...] How often do you attend quaker or hinduism More than 4 time s [...] at Date Recorded Male 03/25/2018 1:01 PM ENROLLMENT NURSE documented as of this encounter Last Filed Vital Signs Vital Sign Reading Time Taken Comments Blood Pressure 141/88 03/10/2019 2:41 PM ENROLLMENT NURSE Pulse 84 03/10/2019 2:41 PM ENROLLMENT NURSE Temperature - - Respiratory Rate 16 03/10/2019 2:41 PM ENROLLMENT NURSE Oxygen Saturation - - Inhaled Oxygen Concentration [...] year: None Incontinence: dribbling (-) Standardized questionnaires [facility]-- The following portions of the patient's history [...] Whitlock APRN, C.N.PNikhil, D.N.P. 03/14/2019 10:39 PM LLMENT NURSE documented in this encounter Plan of Treatment Upcoming Encounters Date Type Specialty Care Team Description 02/15/2022 Office Visit Orthopedic Surgery Madyson Rosa, DaydayONikhil [address] [place], [place] [phone] (Wo rk) documented as of this encounter Visit Diagnoses Diagnosis Pain Groin Pain Scrotum documented in this encounter Additional Health Concerns Assessment Noted Time PHQ-9 Depression Total Score: 2 09/17/2018 9:08 AM CDT documented as of this encounter Care Teams Take Away Man Relationship Specialty Start Date End Date Norma Kenny APRN, C.N.P. PCP - General 09/12/[address] [place] [address] documented as of this encounter
--- OUTSIDE RECORDS SUMMARY | 2022-01-29 04:14 | XMS_ITS | Encounter Summary ---
:1965 Author Organization [facility] Address [address] [place] [address] Care Team Providers Name Role Phone Norma Kenny APRN, C.N.P. Primary Care Provider [phone] Encounter Details Date Type Department Care Team Description 05/26/2019 Orders Only Department of Urology in [facility] No Bonner [place], [place] C.N.P., D.N.P. [address] [facility] [address] [place] [address] [place] [phone] (Wo rk) Social History Tobacco Use Types [...] or relatives? How often do you attend religious or orthodox More than 4 time s per year 09/17/2018 services? 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 PCP - General 09/12/[address] [place] [phone] documented as of this encounter
--- OUTSIDE RECORDS SUMMARY | 2022-01-29 04:14 | XMS_ITS | Encounter Summary ---
:1965 Author Organization [facility] Address [address] [place] [address] Care Team Providers Name Role Phone Norma Kenny APRN, C.N.P. Primary Care Provider [phone] Reason for Visit Reason Comments Med Refill Encounter Details Date Type Department Care Team Description 03/26/2019 Refill Department of Family Medicine Caden Kenny APRN, Med Refill in [facility] so C.N.P. 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 - 03/26/2019 8:46 AM CST Name of medication: metoprolol Last Refilled: 12/17/18 Additional Information: No future appt. Scheduled. Last/Next Appointment: 02/12/19 EILLANCE SYSTEM MONITOR documented in this encounter Plan of Treatment Upcoming Encounters Date Type Specialty Care Team Description 02/15/2022 Office Visit Orthopedic Surgery Madyson Rosa il, D.ONikhil [address] [place], [place] [phone] (Wo rk) documented as of this encounter Visit Diagnoses Diagnosis Palpitations documented in this encounter Additional Health Concerns Assessment Noted Time PHQ-9 Depression Total Score: 2 09/17/2018 9:08 AM CDT documented as of this encounter Care Teams Manager Progressive Care Relationship Specialty Start Date End Date Norma Kenny APRN, C.N.P. PCP - General 09/12/[address] [place] [phone] documented as of this encounter
--- OUTSIDE RECORDS SUMMARY | 2022-01-29 04:14 | XMS_ITS | Encounter Summary ---
:1965 Author Organization [facility] Address [address] [place] [address] Care Team Providers Name Role Phone Norma Kenny APRN C.N.P. 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 PCP - General 09/12/[address] [place] [phone] documented as of this encounter
--- OUTSIDE RECORDS SUMMARY | 2022-01-29 04:14 | XMS_ITS | Encounter Summary ---
:1965 Author Organization [facility] Address [address] [place] [address] Care Team Providers Name Role Phone Norma Kenny APRN, C.N.P. Primary Care Provider [phone] Reason for Visit Reason Comments Med Refill Encounter Details Date Type Department Care Team Description 10/26/2018 Refill Department of Family Medicine Caden Kenny APRN, Med Refill in [facility] so C.N.P. 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 PCP - General 09/12/[address] [place] [address] documented as of this encounter
--- OUTSIDE RECORDS SUMMARY | 2022-01-29 04:14 | XMS_ITS | Encounter Summary ---
:1965 Author Organization [facility] Address [address] [place] [address] Care Team Providers Name Role Phone Norma Kenny APRN C.N.P. Primary Care Provider [phone] Reason for Visit Reason Comments Pain right rib cage into back Groin Pain right side Appointment Request (Routine) - Closed Specialty Diagnoses / Procedures Referred By Contact Refer red To Contact Family Medicine Referral ID Status Reason Start Date Expiration Date Visits Requ ested Visits Authorized [id number] Closed 02/01/2019 02/01/2020 1 1 Encounter Details Date Type Department Care Team Description 02/12/2019 Office Visit Department of Family Norma Kenny Pa in Rib (Primary Dx); Medicine in Erik HARRIS, C.N.P. 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 Hypercholesterolemia ??? Gastroesophageal Reflux Disease [...] US Abdomen Complete; Future; Expected date: 02/12/2019 S COUNTER CLERK documented in this encounter Plan of Treatment Upcoming Encounters Date Type Specialty Care Team Description 02/15/2022 Office Visit Orthopedic Surgery RavinidMadyson haq, D.ONikhil [address] [place] [phone] (Wo rk) documented as of this encounter Results US Abdomen Complete (02/23/2019 10:13 AM PARTS COUNTER CLERK) Anatomical Region Laterality Modality Abdomen, Ultrasound RST LOS, Ultrasound ARZ LOS, Ultrasound FLA N/A Ultrasound LOS Specimen (Source) Anatomical Collection Method Collection Time Re ceived Time Location / / Volume Laterality 02/23/2019 12:47 PM PARTS COUNTER CLERK Impressions 02/23/2019 12:53 PM PARTS COUNTER CLERK No acute findings. Narrative 02/23/2019 12:53 PM PARTS COUNTER CLERK EXAM: US ABDOMEN COMPLETE COMPARISON: None FINDINGS: [...] Chest Posteroanterior 1 View (02/12/2019 2:07 PM PARTS COUNTER CLERK) Anatomical Region Laterality Modality Ribs, Chest, Musculoskeletal RST LOS, Musculoskeletal Right Computed Radiography ARZ LOS, Muskuloskeletal FLA LOS Specimen (Source) Anatomical Collection Method Collection Time Re ceived Time Location / / Volume Laterality 02/12/2019 2:11 PM PARTS COUNTER CLERK Impressions 02/12/2019 2:12 PM PARTS COUNTER CLERK Negative chest and RIGHT ribs. Narrative 02/12/2019 2:12 PM PARTS COUNTER CLERK EXAM: DX RIBS RIGHT 2 VIEWS WITH [...] Norma Kenny APRN, C.N.P. IMG DIAGNOSTIC IMAGING GA OCEDURES documented in this encounter Visit Diagnoses Diagnosis Pain Rib - Primary Hyperlipidemia Pain Groin Pain Right Upper Quadrant Pain Rib Pain Rib Pain Right Upper Quadrant documented in this encounter Additional Health Concerns Assessment Noted Time PHQ-9 Depression Total Score: 2 09/17/2018 9:08 AM CDT documented as of this encounter Care Teams Lens Dotter Relationship Specialty Start Date End Date Norma Kenny APRN, C.N.P. PCP - General 09/12/[address] [place] [facility] [place] [phone] documented as of this encounter
--- OUTSIDE RECORDS SUMMARY | 2022-01-29 04:14 | XMS_ITS | Encounter Summary ---
:1965 Author Organization [facility] Address [address] [place] [address] Care Team Providers Name Role Phone Norma Kenny APRN, C.N.P. Primary Care Provider [phone] Encounter Details Date Type Department Care Team Description 05/21/2019 Hospital Encounter Department of Ame Beal Hyperli pidemia; Laboratory Medicine STEVEN Abraham, Pain Rig ht Upper Quadrant in [place], C.N.P., R.N. 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 - 05/24/2019 1:59 PM STEAM SHOVEL OPERATING ENGINEER Also, please let Twin know his labs all look good. No medication changes. Thanks, TK M SHOVEL OPERATING ENGINEER documented in this encounter Plan of Treatment Upcoming Encounters Date Type Specialty Care Team Description 02/15/2022 Office Visit Orthopedic Surgery Madyson Rosa, D.O. [address] [place], [place] [phone] (Wo rk) documented as of this encounter Procedures Procedure Name Priority Date/Time Associated Diagnosis Comme nts LIPID PANEL, S Routine 05/21/2019 7:57 Hyperlipidemia Results for this AM STEAM SHOVEL OPERATING ENGINEER procedure are i n the results section. CBC WITHOUT Routine 05/21/2019 7:57 Pain Right Upper Results for this DIFFERENTIAL, B AM STEAM SHOVEL OPERATING ENGINEER Quadrant procedure ar e in the results section. LIPASE, S/P Routine 05/21/2019 7:57 Pain Right Upper Results for this AM STEAM SHOVEL OPERATING ENGINEER Quadrant procedure are i n the results section. COMPREHENSIVE Routine 05/21/2019 7:57 Pain Right Upper Results for this METABOLIC PANEL, S/P AM STEAM SHOVEL OPERATING ENGINEER Quadrant procedu re are in the results section. documented in this encounter Results CBC without Differential (05/21/2019 7:57 AM STEAM SHOVEL OPERATING ENGINEER) athologist Signature Hemoglobin 15.1 13.2 - 05/21/2019 [facility] 16.6 g/dL 8:04 AM STEAM SHOVEL OPERATING ENGINEER Hematocrit 44.5 38.3 - 05/21/2019 NPRG 48.6 % 8:04 AM STEAM SHOVEL OPERATING ENGINEER Erythrocytes 4.82 4.35 - 05/21/2019 NPRG 5.65 8:04 AM STEAM SHOVEL OPERATING ENGINEER x10(12)/L MCV 92.3 78.2 - 05/21/2019 NPRG 97.9 fL 8:04 AM STEAM SHOVEL OPERATING ENGINEER RBC Distrib Width 12.5 11.8 - 05/21/2019 NPRG 14.5 % 8:04 AM STEAM SHOVEL OPERATING ENGINEER Platelet Count 201 135 - 317 05/21/2019 NPRG x10(9)/L 8:04 AM STEAM SHOVEL OPERATING ENGINEER Leukocytes 6.4 3.4 - 9.6 05/21/2019 NPRG x10(9)/L 8:04 AM STEAM SHOVEL OPERATING ENGINEER Specimen Anatomical Collection Method Collection Time Receive d Time (Source) Location / / Volume Laterality Blood (Blood, 05/21/2019 7:57 AM 05/21/19 20 7:59 Venous) STEAM SHOVEL OPERATING ENGINEER AM STEAM SHOVEL OPERATING ENGINEER Viridiana Adams APRNN.P. LAB BLOOD ADD-ON Performing Organization Address City/State/ZIP Code Phon e Number [facility]- [address] [place], [place] [address] [facility] [place] [address] [facility] [address] Lipase (05/21/2019 7:57 AM STEAM SHOVEL OPERATING ENGINEER) athologist Signature Lipase, P 17 13 - 60 U/L 05/21/2019 8:26 NPRG AM STEAM SHOVEL OPERATING ENGINEER Specimen Anatomical Collection Method Collection Time Receive d Time (Source) Location / / Volume Laterality Blood (Blood, 05/21/2019 7:57 AM 05/21/19 7:59 Venous) STEAM SHOVEL OPERATING ENGINEER AM STEAM SHOVEL OPERATING ENGINEER Norma Kenny APRN, C.N.P. LAB BLOOD ADD-ON Performing Organization Address City/State/ZIP Code Phon e Number [facility]- [address] [place], [place] [address] [place] [address] LAB [place] [address] [facility] [address] (ABNORMAL) Comprehensive Metabolic Panel (05/21/2019 7:57 AM STEAM SHOVEL OPERATING ENGINEER) Analysis Performed At Patho logist Time Signature Potassium, P 4.3 3.6 - 5.2 05/21/2019 NPR[facility] mmol/L 8:26 AM STEAM SHOVEL OPERATING ENGINEER Sodium, P 138 135 - 145 05/21/2019 NPR[facility] mmol/L 8:26 AM STEAM SHOVEL OPERATING ENGINEER Chloride, P 96 (L) 98 - 107 05/21/2019 NPR[facility] mmol/L 8:26 AM STEAM SHOVEL OPERATING ENGINEER Bicarbonate, P 27 22 - 29 05/21/2019 NPR[facility] mmol/L 8:26 AM STEAM SHOVEL OPERATING ENGINEER Anion Gap, P 15 7 - 15 05/21/2019 NPRG 8:26 AM STEAM SHOVEL OPERATING ENGINEER BUN (Blood Urea 22 8 - 24 05/21/2019 NPRG Nitrogen), P mg/dL 8:26 AM STEAM SHOVEL OPERATING ENGINEER Creatinine 0.71 (L) 0.74 - 05/21/2019 NPR[facility] 1.35 mg/dL 8:26 AM STEAM SHOVEL OPERATING ENGINEER eGFR-Black/Afri >90 >=60 05/21/2019 [facility] can Nigerian mL/min/BSA 8:26 AM STEAM SHOVEL OPERATING ENGINEER Comment: ----ADDITIONAL INFORMATION---- Estimated GFR calculated using the 2009 CKD_EPI creatinine equation. eGFR Non-Black/ >90 >=60 mL/min/BSA 05/21/2019 8:26 AM STEAM SHOVEL OPERATING ENGINEER NPRG Comment: ----ADDITIONAL INFORMATION---- Estimated GFR calculated using the 2009 CKD_EPI creatinine equation. Calcium, Total, P 10.0 8.6 - 10.0 mg/dL 05/21/2019 8:26 AM STEAM SHOVEL OPERATING ENGINEER NPRG Glucose, P 116 70 - 140 mg/dL 05/21/2019 8:26 AM STEAM SHOVEL OPERATING ENGINEER N PRG Protein, Total, P 8.3 (H) 6.3 - 7.9 g/dL 05/21/2019 8:26 A M STEAM SHOVEL OPERATING ENGINEER NPRG Albumin, P 4.8 3.5 - 5.0 g/dL 05/21/2019 8:26 AM STEAM SHOVEL OPERATING ENGINEER N PRG Aspartate Aminotransferase 34 8 - 48 U/L 05/21/2019 8 :26 AM STEAM SHOVEL OPERATING ENGINEER NPRG (AST), P Alkaline Phosphatase, P 63 40 - 129 U/L 05/21/2019 8: 26 AM STEAM SHOVEL OPERATING ENGINEER NPRG Alanine Aminotransferase 35 7 - 55 U/L 05/21/2019 8:2 6 AM STEAM SHOVEL OPERATING ENGINEER NPRG (ALT), P Bilirubin, Total, P 0.9 <=1.2 mg/dL 05/21/2019 8:26 AM STEAM SHOVEL OPERATING ENGINEER NPRG Specimen Anatomical Collection Method Collection Time Receive d Time (Source) Location / / Volume Laterality Blood (Blood, 05/21/2019 7:57 AM 05/21/19 20 7:59 Venous) STEAM SHOVEL OPERATING ENGINEER AM STEAM SHOVEL OPERATING ENGINEER Norma Kenny APRN CNikhilNNikhilP. LAB BLOOD ADD-ON Performing Organization Address City/State/ZIP Code Phon e Number [facility]- [address] [place] [address] [place] [address] [place] [address] [place] [address] [place] (ABNORMAL) Lipid Panel (05/21/2019 7:57 AM STEAM SHOVEL OPERATING ENGINEER) P athologist Signature Cholesterol, 218 (H) mg/dL 05/21/2019 NPRG Total 8:26 AM STEAM SHOVEL OPERATING ENGINEER Comment: ----REFERENCE VALUE---- Desirable: < 200 Borderline high: 200 - 239 High: > or = 240 Triglycerides 56 mg/dL 05/21/2019 8:26 AM STEAM SHOVEL OPERATING ENGINEER NPR G Comment: ----REFERENCE VALUE---- Normal: <150 Borderline high: 150-199 High: 200-499 Very high: > or =500 Cholesterol, HDL 80 >=40 mg/dL 05/21/2019 8:26 AM STEAM SHOVEL OPERATING ENGINEER NPRG Calculated LDL 127 mg/dL 05/21/2019 8:26 AM STEAM SHOVEL OPERATING ENGINEER ORBITREAD OPERATOR RG Comment: ----REFERENCE VALUE---- Desirable: <100 Above Desirable: 100-129 Borderline high: 130-159 High: 160-189 Very high: > or =190 Cholesterol, Non-HDL, Calculated 138 mg/dL 020 8:26 AM STEAM SHOVEL OPERATING ENGINEER NPRG Comment: ----REFERENCE VALUE---- Desirable: <130 Above Desirable: 130-159 Borderline high: 160-189 High: 190-219 Very high: > or =220 Specimen Anatomical Collection Method Collection Time Receive d Time (Source) Location / / Volume Laterality Blood (Blood, 05/21/2019 7:57 AM 05/21/19 7:59 Venous) STEAM SHOVEL OPERATING ENGINEER AM STEAM SHOVEL OPERATING ENGINEER Ame Beal APRN, C.N.P., R.N. LAB BLOOD ADD-ON Performing Organization Address City/State/ZIP Code Phon e Number [facility]- [address] [place], [place] [address] [place] [address] [facility] [address] documented in this encounter Visit Diagnoses Diagnosis Hyperlipidemia Pain Right Upper Quadrant documented in this encounter Additional Health Concerns Assessment Noted Time PHQ-9 Depression Total Score: 2 09/17/2018 9:08 AM CDT documented as of this encounter Care Teams Drum Cleaner Relationship Specialty Start Date End Date Norma Kenny APRN, C.N.P. PCP - General 09/12/[address] [place] [address] documented as of this encounter
--- OUTSIDE RECORDS SUMMARY | 2022-01-29 04:14 | XMS_ITS | Encounter Summary ---
:1965 Author Organization [facility] Address [address] [place] [address] Care Team Providers Name Role Phone Norma Kenny APRN C.N.P. Primary Care Provider [phone] Encounter Details Date Type Department Care Team Description 11/04/2018 Hospital Encounter Department of [place], Ame Pain Ri ght Upper Radiology in [place], [place] C.N.P., R.N. 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 [address] [place], [place] [phone] (Wo rk) documented [...] documented as of this encounter Care Teams Employment Appeals Examiner Relationship Specialty Start Date End Date Norma Kenny APRN, C.N.P. PCP - General 09/12/[address] [place] [address] documented as of this encounter
--- OUTSIDE RECORDS SUMMARY | 2022-01-29 04:14 | XMS_ITS | Encounter Summary ---
:1965 Author Organization [facility] Address [address] [place] [address] Care Team Providers Name Role Phone Norma Kenny APRN, C.N.P. Primary Care Provider [phone] Encounter Details Date Type Department Care Team Description 02/23/2019 Hospital Encounter Department of Radiology Louie Beal, Mass Scrotum in [facility] cristina HARRIS, C.N.P., R.N. 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 [address] [place] [phone] (Wo rk) documented as of this encounter Procedures Procedure Name Priority Date/Time Associated Comments Diagnosis US SCROTUM RAD - Routine 02/23/2019 10:22 Mass Scrotum Results fo r this (most inpatients AM PLUMBING WAREHOUSE HELPER procedure a re in and all the results outpatients) section. documented in this encounter Results US Scrotum (02/23/2019 10:22 AM PLUMBING WAREHOUSE HELPER) Anatomical Region Laterality Modality Testes, Ultrasound RST LOS, Ultrasound ARZ LOS, Ultrasound F LA N/A Ultrasound LOS Specimen (Source) Anatomical Collection Method Collection Time Re ceived Time Location / / Volume Laterality 02/23/2019 12:22 PM PLUMBING WAREHOUSE HELPER Impressions 02/23/2019 12:29 PM PLUMBING WAREHOUSE HELPER Palpable finding on exam corresponds to a tiny echogenic focus within the right epididymal body. Favor benign etiology, and consider small adenomatoid tumor or lipoma. Recommend u rology consultation and sonographic follow-up in the absence of surgical res ection. Narrative 02/23/2019 12:29 PM PLUMBING WAREHOUSE HELPER EXAM: US SCROTUM COMPARISON: None. FINDINGS: Right [...] as of this encounter Care Teams Desk Lieutenant Relationship Specialty Start Date End Date Norma Kenny APRN, C.N.P. PCP - General 09/12/[address] [place] [phone] documented as of this encounter
--- OUTSIDE RECORDS SUMMARY | 2022-01-29 04:14 | XMS_ITS | Encounter Summary ---
:1965 Author Organization [facility] Address [address] [place] [address] Care Team Providers Name Role Phone Norma Kenny APRN C.N.P. Primary Care Provider [phone] Reason for Visit Reason Onset Date Comments Communication 09/25/2018 Encounter Details Date Type Department Care Team Description 09/25/2018 Clinical Communication Department of Chase Philippe Communication Medicine in 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 PCP - General 09/12/[address] [facility] [place] [address] documented as of this encounter
--- OUTSIDE RECORDS SUMMARY | 2022-01-29 04:14 | XMS_ITS | Encounter Summary ---
:1965 Author Organization [facility] Address [address] [place] [address] Care Team Providers Name Role Phone Norma Kenny APRN CNikhilNNikhilPNikhil Primary Care Provider [phone] Encounter Details Date Type Department Care Team Description 05/03/2019 Clinical Communication Department of Urology Cole Ballard, in [place], John roque M.D., Ph.D. 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 Sent out a reminder schedule for him because he did not have anything with him to write it down on/ SFORMATION LEAD Telephone Encounter - Maribel Watts R.N. - [...] APRN, C.N.P., D.N.P. 03/14/2019 10:39 PM ?? SFORMATION LEAD Telephone Encounter - Elba Retana - 05/03/2019 [...] an appointment with him. Thank you, Elba SFORMATION LEAD documented in this encounter Plan of Treatment Upcoming Encounters Date Type Specialty Care Team Description 02/15/2022 Office Visit Orthopedic Surgery Madyson Rosa, D.O. [address] [place] [phone] (Wo rk) documented as of this encounter Visit Diagnoses Not on filedocumented in this encounter Additional Health Concerns Assessment Noted Time PHQ-9 Depression Total Score: 2 09/17/2018 9:08 AM CDT documented as of this encounter Care Teams Power Originator Relationship Specialty Start Date End Date Norma Kenny APRN, C.N.P. PCP - General 09/12/[address] [place] [address] documented as of this encounter
--- OUTSIDE RECORDS SUMMARY | 2022-01-29 04:14 | XMS_ITS | Encounter Summary ---
:1965 Author Organization [facility] Address [address] [place] [address] Care Team Providers Name Role Phone Norma Kenny APRN, C.N.P. Primary Care Provider [phone] Reason for Visit MRI/CAT/PET Scan (Routine) - Closed Specialty Diagnoses / Procedures Referred By Contact Refer red To Contact Radiology Diagnoses Pain Right Upper Quadrant Norma Kenny APRN, [facility] Region Procedures CT Abdomen Pelvis with IV Contrast CT Abdomen without and with IV Contrast ID CT ABDOMEN WO/W CNTRST ID CT ABD&PELVIS W CNTRST C.N.P. [address] [place] [phone] Referral ID Status Reason Start Date Expiration Date Visits Requ ested Visits Authorized [id number] Closed 05/19/2019 05/18/2020 1 1 Encounter Details Date Type Department Care Team Description 05/21/2019 Hospital Encounter Department of Norma Kenny R ight Upper Radiology in Erik Salas APRN, C.N.P. 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 - 05/24/2019 3:33 PM BOAT CARPENTER MECHANIC Will await UA/UC results and go from there. He may need to see urology sooner or see general surgeryto discuss this. If he wants to stop in today or this evening he could also go to Urgent care or drop a UA at the hospital. Thanks, TK CARPENTER MECHANIC Result Encounter Note - Norma Kenny APRN, C.N.P. - 05/24/2019 1:57 PM BOAT CARPENTER MECHANIC Sidney Pisano - Please let patient know [...] This should not take long. Thanks, TK CARPENTER MECHANIC Result Encounter Note - Norma Kenny APRN, C.N.P. - 05/24/2019 1:55 PM BOAT CARPENTER MECHANIC Sidney Sarabia - Yes he came in [...] follow up with you sooner? Thanks, TK CARPENTER MECHANIC Result Encounter Note - Norma Kenny APRN, C.N.P. - 05/21/2019 2:08 PM BOAT CARPENTER MECHANIC Sidney Ballard/ No- I believe you all [...] input! Thanks, Norma Kenny APRN Family Medicine CARPENTER MECHANIC documented in this encounter Plan of Treatment Upcoming Encounters Date Type Specialty Care Team Description 02/15/2022 Office Visit Orthopedic Surgery RavinokMadyson haq, D.O. [address] [place] [phone] (Wo rk) documented as of this encounter Procedures Procedure Name Priority Date/Time Associated Comments Diagnosis CT ABDOMEN PELVIS RAD - Routine 05/21/2019 8:39 Pain Right Upper Re sults for this WITH IV CONTRAST (most inpatients AM BOAT CARPENTER MECHANIC Quadrant procedu re are in and all the results outpatients) section. documented in this encounter Results CT Abdomen Pelvis with IV Contrast (05/21/2019 8:39 AM BOAT CARPENTER MECHANIC) Anatomical Region Laterality Modality Abdomen, Pelvis, Abdominal RST LOS, Abdominal ARZ LOS, N/A Computed Tomography Abdominal FLA LOS Specimen (Source) Anatomical Collection Method Collection Time Re ceived Time Location / / Volume Laterality 05/21/2019 10:19 AM BOAT CARPENTER MECHANIC Impressions 05/21/2019 10:27 AM BOAT CARPENTER MECHANIC 1. No evidence of appendicitis or inflammatory bowel disease or bowel obstruction. 2. Stranding of perirenal fat bilaterall y consistent with history of renal medical disease. No evidence of nephro o r ureterolithiasis or hydronephrosis or pyelonephritis. 3. Small fat-containing inguinal hernias bilaterally, no evidence of ventral or umbilical hernia. Narrative 05/21/2019 10:27 AM BOAT CARPENTER MECHANIC EXAM: CT ABDOMEN PELVIS WITH IV CONTRAST [...] mg iodine/mL solution Given 05/21/2019 9:00 AM BOAT CARPENTER MECHANIC 1 00 mL 1-200 mL (OMNIPAQUE) 1-200 mL, intravenous, Once in imaging, contrast, Starting on Fri05/21/19 at 0859, For 1 dose, Imaging Protocol Orders, Dose per Radiant Medication Guidelines NaCl 0.9 % bolus 100 mL New Bag 05/21/2019 9:00 AM BOAT CARPENTER MECHANIC 100 mL 100 mL/hr 100 mL, intravenous, at 100 mL/hr, Administer over 1 Hours, Once, On Fri05/21/19 at 0900, For 1 dose sodium chloride 0.9 % injection 10 mL Given 05/21/2019 9:00 AM BOAT CARPENTER MECHANIC 10 mL 10 mL, intravenous, Once in imaging, line care, prior to CT, Starting on Fri05/21/19 at 0859, For 1 dose documented in this encounter Additional Health Concerns Assessment Noted Time PHQ-9 Depression Total Score: 2 09/17/2018 9:08 AM CDT documented as of this encounter Care Teams Marine Plumber Relationship Specialty Start Date End Date Norma Kenny APRN, C.N.P. PCP - General 09/12/[address] [place] [phone] documented as of this encounter
--- OUTSIDE RECORDS SUMMARY | 2022-01-29 04:14 | XMS_ITS | Encounter Summary ---
:1965 Author Organization [facility] Address [address] [place] [address] Care Team Providers Name Role Phone Norma Kenny APRN, C.N.P. Primary Care Provider [phone] Reason for Visit Reason Onset Date Comments Communication 03/05/2019 Referral to Urology Encounter Details Date Type Department Care Team Description 03/05/2019 Clinical Communication Department of [facility] in [place]a Salas, (Referral to Urology) Erik Booth APRN, C.N.P. [place] [address] [place], [place] Erik Booth, [phone] [place] [phone] Social History Tobacco Use Types Packs/Day Years [...] How often do you attend yarsanism or oriental orthodox More than 4 time [...] at Date Recorded Male 03/25/2018 1:01 PM PLANNING ANALYST documented as of this encounter Miscellaneous Notes Telephone Encounter - Jeannette Bernardo L.P.N. - 04/02/2019 11:37 AM PLANNING ANALYST Pt is not responding to phone messages sent for status update or assistance with Urology plan movingforward. NING ANALYST Telephone Encounter - Jeannette Bernardo L.P.N. - 03/30/2019 8:51 AM PLANNING ANALYST LMTCB NING ANALYST Telephone Encounter - Norma Kenny APRN, C.N.P. - 03/29/2019 4:46 PM PLANNING ANALYST Maybe try him one more time this week to see how he is doing. Thanks, TK NING ANALYST Telephone Encounter - Jeannette Bernardo L.PNikhilN. - 03/25/2019 8:38 AM PLANNING ANALYST Do I need to continue to continue to follow up as pt did not respond after message left. NING ANALYST Telephone Encounter - Jeannette Bernardo L.P.N. - 03/11/2019 4:02 PM PLANNING ANALYST LMTCB NING ANALYST Telephone Encounter - Norma eKnny APRN C.N.P. - 03/10/2019 8:19 AM PLANNING ANALYST Great, thanks! Let's follow up with him after this appointment today to determine next steps. ThanksTK NING ANALYST Telephone Encounter - eJannette Bernardo L.P.N. - 03/09/2019 8:30 AM PLANNING ANALYST Thank you Cara for following up. NING ANALYST Telephone Encounter - Karina Randle R.M.A. - 03/08/2019 11:35 AM PLANNING ANALYST Following up on the is appointment with Urology. Kenna is not in clinic until Friday. I did speak with Carmela regarding this. She spoke with Elba to see if patient is able to be seen. Patient is scheduled here in [place] with No Whitlock NP on Sunday March 10, 2019. Arrival of 215 pm. Patient is aware of this appointment. Patient did state [place] did call him last week to try and get him in there. He was offered today(declined due to the weather) and next Friday. Patient prefers to be seen in [place]. NING ANALYST Telephone Encounter - Karina Randle R.MGilson - 03/05/2019 4:59 PM PLANNING ANALYST Attempted to call Urology in [place] this morning at 815. I had to leave a message for them to call back. Wondering if we are able to get this patient in sooner in [place] as patient is currently set up in [employer] on 04/21/19. Per notes from Norma Kenny and Jeannette Notes recorded by Norma Kenny APRN, C.N.P. on 03/04/2019 at 10:13 AM PLANNING ANALYST Ok so it is the groin pain only that is giving him trouble, not right upper rib/abdominal pain, correct? ??Let me know if you hear from urology. ??Thanks, TK ------ Notes recorded by Jeannette Bernardo L.P.N. on 03/03/2019 at 11:23 AM PLANNING ANALYST Pt states nothing has improved, continued discomfort with the groin increased pain more with working. He did state he is now willing to go to [place] if that date is improved. I left a message on urology [facility] requesting an earlier appointment if possible. I left my extension for messages. Today around 1100 am I did reach out to Kenna Calloway in [employer], who is Dr Ballard's nurse here to see if she could help me set something up as I had yet to hear from [place]. She was going to look into it [...] I knew we had an actual appointment. NING ANALYST documented in this encounter Plan of Treatment Upcoming Encounters Date Type Specialty Care Team Description 02/15/2022 Office Visit Orthopedic Surgery Madyson Rosa, D.ONikhil [address] [place], [place] [phone] (Wo rk) documented as of this encounter Visit Diagnoses Not on filedocumented in this encounter Additional Health Concerns Assessment Noted Time PHQ-9 Depression Total Score: 2 09/17/2018 9:08 AM CDT documented as of this encounter Care Teams Batch Attendant Relationship Specialty Start Date End Date Norma Kenny APRN, C.N.P. PCP - General 09/12/[address] [place] [phone] documented as of this encounter
--- OUTSIDE RECORDS SUMMARY | 2022-01-29 04:14 | XMS_ITS | Encounter Summary ---
:1965 Author Organization [facility] Address [address] [place] [address] Care Team Providers Name Role Phone Norma Kenny APRN C.N.P. Primary Care Provider [phone] Encounter Details Date Type Department Care Team Description 05/24/2019 Orders Only Department of Family Norma Kenny Pa in [facility] (Primary Dx) Medicine in [facility] [place], [place] [address] [place] [phone] Social History Tobacco Use Types Packs/Day Years [...] How often do you attend methodist or baptism More than 4 time s [...] at Date Recorded Male 03/25/2018 1:01 PM ENGINE CLEANER documented as of this encounter Plan of Treatment Upcoming Encounters Date Type Specialty Care Team Description 02/15/2022 Office Visit Orthopedic Surgery RavinyazminMadyson clayton, D.ONikhil [address] [place], [place] [phone] (Wo rk) documented as of this encounter Results Bacterial Culture, Aerobic + Susc, Urine (05/25/2019 9:36 AM ENGINE CLEANER) [facility] gist Method Time Signature Urine Culture No growth 05/26/2019 [facility] after 1 day 8:52 AM ENGINE CLEANER of incubation. Specimen Anatomical Collection Method Collection Time Receive d Time (Source) Location / / Volume Laterality Urine (Urine, 05/25/2019 9:36 AM 05/25/19 20 3:02 Midstream) ENGINE CLEANER PM ENGINE CLEANER Comment: Specimen Source Site: Urine Norma Kenny APRN, C.N.P. LAB MICROBIOLOGY - GENERA L ORDERABLES Performing Organization Address City/State/ZIP Code Phon e Number [facility]- [address] [place] [address] [place] [address] (ABNORMAL) Urinalysis with Microscopic if Indicated (05/25/2019 9:36 AM ENGINE CLEANER) athologist Signature Source Midstream 05/25/2019 NP[facility] 9:39 AM ENGINE CLEANER Clarity Clear Clear 05/25/2019 NP[facility] 9:39 AM ENGINE CLEANER Color Yellow 05/25/2019 NP[facility] 9:39 AM ENGINE CLEANER Comment: ----REFERENCE VALUE---- Colorless Yellow Jodi Blood Negative Negative 05/25/2019 9:39 AM ENGINE CLEANER NPCL Nitrite Negative Negative 05/25/2019 9:39 AM ENGINE CLEANER NPCL Leukocyte Esterase Negative Negative 05/25/2019 9:39 AM CS T NPCL Protein Negative mg/dL 05/25/2019 9:39 AM ENGINE CLEANER NPCL Comment: ----REFERENCE VALUE---- Negative Trace Glucose Negative Negative mg/dL 05/25/2019 9:39 AM ENGINE CLEANER JIG FILLER CL Ketones, QI(U) Trace (A) Negative mg/dL 05/25/2019 9:[address] NPCL Bilirubin Negative Negative 05/25/2019 9:39 AM ENGINE CLEANER NPCL pH 7.0 5.0 - 8.0 05/25/2019 9:39 AM ENGINE CLEANER NPCL Specific [place] 1.020 1.001 - 1.035 05/25/2019 9:39 AM ENGINE CLEANER NPCL Urobilinogen 2.0 (A) 0.2 - 1.0 mg/dL 05/25/2019 9:39 AM CS T NPCL Specimen Anatomical Collection Method Collection Time Receive d Time (Source) Location / / Volume Laterality Urine (Urine, 05/25/2019 9:36 AM 05/25/19 9:36 Clean Catch) ENGINE CLEANER AM ENGINE CLEANER Norma Kenny APRN, C.N.P. LAB URINE ORDERABLES Performing Organization Address City/State/ZIP Code Phon e Number [facility]- [address] [place] [address] [address] [employer] [place] [address] documented in this encounter Visit Diagnoses Diagnosis Pain Flank - Primary documented in this encounter Additional Health Concerns Assessment Noted Time PHQ-9 Depression Total Score: 2 09/17/2018 9:08 AM CDT documented as of this encounter Care Teams Chip Loft Worker Relationship Specialty Start Date End Date Norma Kenny APRN, C.N.P. PCP - General 09/12/[address] [place] [phone] documented as of this encounter
--- OUTSIDE RECORDS SUMMARY | 2022-01-29 04:14 | XMS_ITS | Encounter Summary ---
:1965 Author Organization [facility] Address [address] [place] [address] Care Team Providers Name Role Phone Norma Kenny APRN, C.N.P. Primary Care Provider [phone] Encounter Details Date Type Department Care Team Description 05/25/2019 Hospital Encounter Department of Laboratory Chase Kenny, Pain Flank Medicine in [facility] STEVEN, C. N.P. [place] [address] [place] [phone] Social History Tobacco Use Types Packs/Day Years [...] How often do you attend mormonism or islam More than 4 time s [...] at Date Recorded Male 03/25/2018 1:01 PM INSURANCE RATER documented as of this encounter Medications at [...] Kenny APRN, C.N.P. - 06/02/2019 1:20 PM INSURANCE RATER Jeannette - please call and touch base [...] tried heat/ice to the area? Thanks, TK RANCE RATER Result Encounter Note - Norma Kenny APRN, C.N.P. - 05/28/2019 1:11 PM INSURANCE RATER Sidney Sarabia - See message from patient. I do not see a result for PVR but patient states he already had one with good emptying? UA was normal other than elevated urobilinogen and UC was negative. Further thoughts or recommendations on his renal fat stranding and right sided flank/side pain? He currently has follow up scheduled with Dr. Ballard on 06/22. Thanks, TK RANCE RATER Result Encounter Note - Norma Kenny APRN, C.N.P. - 05/26/2019 3:29 PM INSURANCE RATER Jeannette - Please let patient know his UA did not show any infection. I have a message to his urology team, they are recommending a post void residual bladder scan as follow up to the fat stranding they saw in his CT scan and due to his pain. I am awaiting more information on this. Marycarmen, DEBRA RANCE RATER Result Encounter Note - Norma Kenny APRN, C.N.P. - 05/26/2019 8:13 AM INSURANCE RATER Sidney Sarabia - UA is negative other than elevated urobilinogen and trace ketones. Culture pending. Patient is wondering what the bladder scan will show before he schedules this as he does not want to do any excess testing? I can have a nurse call him later today with recommendations. DEBRA Conroy RANCE RATER documented in this encounter Plan of Treatment Upcoming Encounters Date Type Specialty Care Team Description 02/15/2022 Office Visit Orthopedic Surgery Madyson Rsoa D.ONikhil [address] [place], [place] [phone] (Wo rk) documented as of this encounter Procedures Procedure Name Priority Date/Time Associated Comments Diagnosis URINALYSIS WITH Routine 05/25/2019 9:36 AM Pain Flank Result s for this MICROSCOPIC IF INSURANCE RATER procedure are in INDICATED, U the results section. BACTERIAL CULTURE, Routine 05/25/2019 9:36 AM Pain Flank Res ults for this AEROBIC + SUSC, URINE INSURANCE RATER proced ure are in the results section. documented in this encounter Results Bacterial Culture, Aerobic + Susc, Urine (05/25/2019 9:36 AM INSURANCE RATER) [facility] Method Time Signature Urine Culture No growth 05/26/2019 [facility] after 1 day 8:52 AM INSURANCE RATER of incubation. Specimen Anatomical Collection Method Collection Time Receive d Time (Source) Location / / Volume Laterality Urine (Urine, 05/25/2019 9:36 AM 05/25/19 20 3:02 Midstream) INSURANCE RATER PM INSURANCE RATER Comment: Specimen Source Site: Urine Viridiana Adams APRNNNikhilPNikhil LAB MICROBIOLOGY - GENERA L ORDERABLES Performing Organization Address City/State/ZIP Code Phon e Number [facility]- [address] [place] [address] [place] [address] [address] (ABNORMAL) Urinalysis with Microscopic if Indicated (05/25/2019 9:36 AM INSURANCE RATER) athologist Signature Source Midstream 05/25/2019 NPCL 9:39 AM INSURANCE RATER Clarity Clear Clear 05/25/2019 NPCL 9:39 AM INSURANCE RATER Color Yellow 05/25/2019 NPCL 9:39 AM INSURANCE RATER Comment: ----REFERENCE VALUE---- Colorless Yellow Jodi Blood Negative Negative 05/25/2019 9:39 AM INSURANCE RATER NPCL Nitrite Negative Negative 05/25/2019 9:39 AM INSURANCE RATER NPCL Leukocyte Esterase Negative Negative 05/25/2019 9:39 AM CS T NPCL Protein Negative mg/dL 05/25/2019 9:39 AM INSURANCE RATER NPCL Comment: ----REFERENCE VALUE---- Negative Trace Glucose Negative Negative mg/dL 05/25/2019 9:39 AM INSURANCE RATER LAND CLASS[employer]IER CL Ketones, QI(U) Trace (A) Negative mg/dL 05/25/2019 9:[address] NPCL Bilirubin Negative Negative 05/25/2019 9:39 AM INSURANCE RATER NPCL pH 7.0 5.0 - 8.0 05/25/2019 9:39 AM INSURANCE RATER NPCL Specific [place] 1.020 1.001 - 1.035 05/25/2019 9:39 AM INSURANCE RATER NPCL Urobilinogen 2.0 (A) 0.2 - 1.0 mg/dL 05/25/2019 9:39 AM CS T NPCL Specimen Anatomical Collection Method Collection Time Receive d Time (Source) Location / / Volume Laterality Urine (Urine, 05/25/2019 9:36 AM 05/25/19 9:36 Clean Catch) INSURANCE RATER AM INSURANCE RATER Norma Kenny APRN, C.N.P. LAB URINE ORDERABLES Performing Organization Address City/State/ZIP Code Phon e Number [facility]- [address] [place] [address] [address] [facility] [place] [address] [place] [address] documented in this encounter Visit Diagnoses Diagnosis Pain Flank documented in this encounter Additional Health Concerns Assessment Noted Time PHQ-9 Depression Total Score: 2 09/17/2018 9:08 AM CDT documented as of this encounter Care Teams Survey Research Center Director Relationship Specialty Start Date End Date Norma Kenny APRN, C.N.P. PCP - General 09/12/[address] [place] [phone] documented as of this encounter
--- OUTSIDE RECORDS SUMMARY | 2022-01-29 04:14 | XMS_ITS | Encounter Summary ---
:1965 Author Organization [facility] Address [address] [place] [address] Care Team Providers Name Role Phone Norma Kenny APRN, C.NNikhilPNikhil Primary Care Provider [phone] Reason for Visit Reason Comments Med Refill Encounter Details Date Type Department Care Team Description 12/17/2018 Refill Department of Family Medicine Medina Schmitt, [facility] [place] [phone] Social History Tobacco Use Types Packs/Day [...] How often do you attend synagogue or jew More than 4 time s [...] at Date Recorded Male 03/25/2018 1:01 PM BAD WORK GATHERER documented as of this encounter Miscellaneous Notes Telephone Encounter - Medina Schmitt R.N. - 12/17/2018 10:17 AM CDT Medications Needing Refill: Metoprolol 25 mg Last Refilled: 09/17/18 Last Appointment: CME 09/17/18; BP check 10/19/18 Future Appointment: N/A documented in this encounter Plan of Treatment Upcoming Encounters Date Type Specialty Care Team Description 02/15/2022 Office Visit Orthopedic Surgery Madyson Rosa, D.O. [address] [place], [place] [phone] (Wo rk) documented as of this encounter Visit Diagnoses Diagnosis Palpitations documented in this encounter Additional Health Concerns Assessment Noted Time PHQ-9 Depression Total Score: 2 09/17/2018 9:08 AM CDT documented as of this encounter Care Teams Humane Officer Relationship Specialty Start Date End Date Norma Kenny, STEVEN, C.N.P. PCP - General 09/12/[address] [place] [address] documented as of this encounter
--- OUTSIDE RECORDS SUMMARY | 2022-01-29 04:14 | XMS_ITS | Encounter Summary ---
:1965 Author Organization [facility] Address [address] [place] [address] Care Team Providers Name Role Phone Norma Kenny APRN, C.NNikhilPNikhil Primary Care Provider [phone] Encounter Details Date Type Department Care Team Description 10/19/2018 Clinical Communication Department of [facility] Artie Butler ae, Medicine in [place], [place] [phone] [place] [address] (Work) [place] [phone] Social History Tobacco Use Types Packs/Day Years [...] How often do you attend anglican or episcopal More than 4 time s [...] at Date Recorded Male 03/25/2018 1:01 PM GROUP PRODUCT MANAGER documented as of this encounter Miscellaneous [...] increased his water intake. He would like video games storywriter to call back on Friday to get [...] 9:00. He was given information from the [facility] website for increasing fiber in his diet, also encouraged exercise and to continue MiraLAX daily. He would like to hold off on ultrasound a few moredays and try this. He states he is having bowel movements but still feels constipated. He is requesting video games storywriter call patient on Friday to get an update and possible order US of gallbladder at that time. documented in this encounter Plan of Treatment Upcoming Encounters Date Type Specialty Care Team Description 02/15/2022 Office Visit Orthopedic Surgery Madyson Rosa, D.ONikhil [address] [place], [place] [phone] (Wo rk) documented as of this encounter Visit Diagnoses Not on filedocumented in this encounter Additional Health Concerns Assessment Noted Time PHQ-9 Depression Total Score: 2 09/17/2018 9:08 AM CDT documented as of this encounter Care Teams Upper Cutter Relationship Specialty Start Date End Date Norma Kenny APRN, C.N.P. PCP - General 09/12/[address] [place] [phone] documented as of this encounter
--- OUTSIDE RECORDS SUMMARY | 2022-01-29 04:14 | XMS_ITS | Encounter Summary ---
:1965 Author Organization [facility] Address [address] [place] [address] Care Team Providers Name Role Phone Norma Kenny APRN C.N.P. Primary Care Provider [phone] Reason for Visit Reason Comments Follow-up rib issues Encounter Details Date Type Department Care Team Description 05/19/2019 Office Visit Department of Family Norma Kenny Pain Right Upper Quadrant (Primary Dx); Medicine in [facility] STEVEN Salas C.N.P. [place], [place] [address] [place] [address] [phone] Social History Tobacco Use Types Packs/Day Years [...] or relatives? How often do you attend zoroastrian or orthodox More than 4 time s per year 09/17/2018 services? 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 SPECIALIST documented as of this encounter Last Filed Vital Signs Vital Sign Reading Time Taken Comments Blood Pressure 152/73 05/19/2019 10:54 AM ENVIRONMENTAL MONITORING SPECIALIST Pulse 77 05/19/2019 10:54 AM ENVIRONMENTAL MONITORING SPECIALIST Temperature 36.1 ??C (97 ??F) 05/19/2019 10:54 AM ENVIRONMENTAL MONITORING SPECIALIST Respiratory Rate - - Oxygen Saturation 98% 05/19/2019 10:54 AM ENVIRONMENTAL MONITORING SPECIALIST Inhaled Oxygen Concentration - - Weight 139 kg (307 lb 3.2 oz) 05/19/2019 10:54 AM ENVIRONMENTAL MONITORING SPECIALIST Height 185.4 cm (6' 1) 05/19/2019 10:54 AM ENVIRONMENTAL MONITORING SPECIALIST Body Mass Index 40.53 05/19/2019 10:54 AM ENVIRONMENTAL MONITORING SPECIALIST documented in this encounter Progress Notes [...] work through it. 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 He [...] 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 Has no pets. Plans to move into [employer] family farm this year after renovation and [...] perhaps. I will follow up pending results. RONMENTAL MONITORING SPECIALIST documented in this encounter Plan of Treatment Upcoming Encounters Date Type Specialty Care Team Description 02/15/2022 Office Visit Orthopedic Surgery Madyson Rosa, D.O. [address] [place], [place] [phone] (Wo rk) documented as of this encounter Results CBC without Differential (05/21/2019 7:57 AM ENVIRONMENTAL MONITORING SPECIALIST) athologist Signature Hemoglobin 15.1 13.2 - 05/21/2019 NPRG 16.6 g/dL 8:04 AM ENVIRONMENTAL MONITORING SPECIALIST Hematocrit 44.5 38.3 - 05/21/2019 NPRG 48.6 % 8:04 AM ENVIRONMENTAL MONITORING SPECIALIST Erythrocytes 4.82 4.35 - 05/21/2019 NPRG 5.65 8:04 AM ENVIRONMENTAL MONITORING SPECIALIST x10(12)/L MCV 92.3 78.2 - 05/21/2019 NPRG 97.9 fL 8:04 AM ENVIRONMENTAL MONITORING SPECIALIST RBC Distrib Width 12.5 11.8 - 05/21/2019 NPRG 14.5 % 8:04 AM ENVIRONMENTAL MONITORING SPECIALIST Platelet Count 201 135 - 317 05/21/2019 NPRG x10(9)/L 8:04 AM ENVIRONMENTAL MONITORING SPECIALIST Leukocytes 6.4 3.4 - 9.6 05/21/2019 NPRG x10(9)/L 8:04 AM ENVIRONMENTAL MONITORING SPECIALIST Specimen Anatomical Collection Method Collection Time Receive d Time (Source) Location / / Volume Laterality Blood (Blood, 05/21/2019 7:57 AM 05/21/19 7:59 Venous) ENVIRONMENTAL MONITORING SPECIALIST AM ENVIRONMENTAL MONITORING SPECIALIST Norma Kenny APRN, C.N.P. LAB BLOOD ADD-ON Performing Organization Address City/State/ZIP Code Phon e Number [place] [phone] [address] [facility] [place] [phone] Lipase (05/21/2019 7:57 AM ENVIRONMENTAL MONITORING SPECIALIST) athologist Signature Lipase, P 17 13 - 60 U/L 05/21/2019 8:26 NPRG AM ENVIRONMENTAL MONITORING SPECIALIST Specimen Anatomical Collection Method Collection Time Receive d Time (Source) Location / / Volume Laterality Blood (Blood, 05/21/2019 7:57 AM 05/21/19 7:59 Venous) ENVIRONMENTAL MONITORING SPECIALIST AM ENVIRONMENTAL MONITORING SPECIALIST Norma Kenny APRN, C.N.P. LAB BLOOD ADD-ON Performing Organization Address City/[facility]/ZIP Code Phon e Number [place] [address] [place] [address] 1 [facility] [place] [phone] (ABNORMAL) Comprehensive Metabolic Panel (05/21/2019 7:57 AM ENVIRONMENTAL MONITORING SPECIALIST) Analysis Performed At Patho logist Time Signature Potassium, P 4.3 3.6 - 5.2 05/21/2019 NPRG mmol/L 8:26 AM ENVIRONMENTAL MONITORING SPECIALIST Sodium, P 138 135 - 145 05/21/2019 NPRG mmol/L 8:26 AM ENVIRONMENTAL MONITORING SPECIALIST Chloride, P 96 (L) 98 - 107 05/21/2019 NPRG mmol/L 8:26 AM ENVIRONMENTAL MONITORING SPECIALIST Bicarbonate, P 27 22 - 29 05/21/2019 NPRG mmol/L 8:26 AM ENVIRONMENTAL MONITORING SPECIALIST Anion Gap, P 15 7 - 15 05/21/2019 NPRG 8:26 AM ENVIRONMENTAL MONITORING SPECIALIST BUN (Blood Urea 22 8 - 24 05/21/2019 NPRG Nitrogen), P mg/dL 8:26 AM ENVIRONMENTAL MONITORING SPECIALIST Creatinine 0.71 (L) 0.74 - 05/21/2019 NPRG 1.35 mg/dL 8:26 AM ENVIRONMENTAL MONITORING SPECIALIST eGFR-Black/Afri >90 >=60 05/21/2019 NPRG can Sierra Leonean mL/min/BSA 8:26 AM ENVIRONMENTAL MONITORING SPECIALIST Comment: ----ADDITIONAL INFORMATION---- Estimated GFR calculated using the 2009 CKD_EPI creatinine equation. eGFR Non-Black/ >90 >=60 mL/min/BSA 05/21/2019 8:26 AM ENVIRONMENTAL MONITORING SPECIALIST NPRG Comment: ----ADDITIONAL INFORMATION---- Estimated GFR calculated using the 2009 CKD_EPI creatinine equation. Calcium, Total, P 10.0 8.6 - 10.0 mg/dL 05/21/2019 8:26 AM ENVIRONMENTAL MONITORING SPECIALIST NPRG Glucose, P 116 70 - 140 mg/dL 05/21/2019 8:26 AM ENVIRONMENTAL MONITORING SPECIALIST N PRG Protein, Total, P 8.3 (H) 6.3 - 7.9 g/dL 05/21/2019 8:26 A M ENVIRONMENTAL MONITORING SPECIALIST NPRG Albumin, P 4.8 3.5 - 5.0 g/dL 05/21/2019 8:26 AM ENVIRONMENTAL MONITORING SPECIALIST N PRG Aspartate Aminotransferase 34 8 - 48 U/L 05/21/2019 8 :26 AM ENVIRONMENTAL MONITORING SPECIALIST NPRG (AST), P Alkaline Phosphatase, P 63 40 - 129 U/L 05/21/2019 8: 26 AM ENVIRONMENTAL MONITORING SPECIALIST NPRG Alanine Aminotransferase 35 7 - 55 U/L 05/21/2019 8:2 6 AM ENVIRONMENTAL MONITORING SPECIALIST NPRG (ALT), P Bilirubin, Total, P 0.9 <=1.2 mg/dL 05/21/2019 8:26 AM ENVIRONMENTAL MONITORING SPECIALIST NPRG Specimen Anatomical Collection Method Collection Time Receive d Time (Source) Location / / Volume Laterality Blood (Blood, 05/21/2019 7:57 AM 05/21/19 7:59 Venous) ENVIRONMENTAL MONITORING SPECIALIST AM ENVIRONMENTAL MONITORING SPECIALIST Norma Kenny APRN, C.N.P. LAB BLOOD ADD-ON Performing Organization Address City/State/ZIP Code Phon e Number [facility] [address] [place], [place] [address] [place] [address] [facility] [address] documented in this encounter Visit Diagnoses Diagnosis Pain Right Upper Quadrant - Primary Hyperlipidemia documented in this encounter Additional Health Concerns Assessment Noted Time PHQ-9 Depression Total Score: 2 09/17/2018 9:08 AM CDT documented as of this encounter Care Teams Yardage Control Clerk Relationship Specialty Start Date End Date Norma Kenny APRN, C.N.P. PCP - General 09/12/[address] [place] [phone] documented as of this encounter
--- OUTSIDE RECORDS SUMMARY | 2022-01-29 04:14 | XMS_ITS | Encounter Summary ---
:1965 Author Organization [facility] Address [address] [place] [address] Care Team Providers Name Role Phone Norma Kenny APRN, C.N.P. Primary Care Provider [phone] Reason for Visit Reason Comments Nurse Visit blood pressure check, update on abdominal pain Outpatient (Routine) - Closed Specialty Diagnoses / Procedures Referred By Contact Refer red To Contact Family Medicine Diagnoses Hypertension Essential Primary Ame Beal APRN, [facility] C.N.P., R.N. [address] [facility], [facility] [address] [place] [address] Referral ID Status Reason Start Date Expiration Date Visits Requ ested Visits Authorized [id number] Closed 09/17/2018 09/17/2019 1 1 Encounter Details Date Type Department Care Team Description 10/19/2018 Nurse Only Department of Family Louie Beal APRN, C.N.P., R.N. [address] [place] [address] [address] [place] [address] Nurse Visit (blood Medicine in [place], [place], Moira Saldana, C.M.A. 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 - 10/19/2018 8:30 AM CDT [...] 9:00. He was given information from the [facility] website for increasing fiber in his diet, also encouraged exercise and to continue MiraLAX daily. He would like to hold off on ultrasound a few more days and try this. He states he is having bowelmovements but still feels constipated. He is requesting specifications writer call patient on Friday to get an update and possible order US of gallbladder at that time. documented in this encounter Plan of Treatment Upcoming Encounters Date Type Specialty Care Team Description 02/15/2022 Office Visit Orthopedic Surgery Madyson Roas il, D.O. [address] [place], [place] [phone] (Wo rk) documented as of this encounter Visit Diagnoses Diagnosis Hypertension Essential Primary documented in this encounter Additional Health Concerns Assessment Noted Time PHQ-9 Depression Total Score: 2 09/17/2018 9:08 AM CDT documented as of this encounter Care Teams Software Business Analyst Relationship Specialty Start Date End Date Norma Kenny, STEVEN, C.N.P. PCP - General 09/12/[address] [place] [address] documented as of this encounter
--- OUTSIDE RECORDS SUMMARY | 2022-01-29 04:14 | XMS_ITS | Encounter Summary ---
:1965 Author Organization [facility] Address [address] [place] [address] Care Team Providers Name Role Phone Norma Kenny APRN, C.N.P. Primary Care Provider [phone] Encounter Details Date Type Department Care Team Description 02/23/2019 Hospital Encounter Department of Norma Kenny Pain R ib; Radiology in Erik Salas APRN, C.N.PNikhil Pain Right Upper Quadrant [place], [place] [address] [place] [address] [phone] Social History Tobacco Use Types Packs/Day Years [...] How often do you attend religion or mosque More than 4 time s [...] at Date Recorded Male 03/25/2018 1:01 PM RENEWALS SPECIALIST documented as of this encounter Medications [...] Orthopedic Surgery Madyson Rosa il, D.O. [address] [place] [phone] (Wo rk) documented as of this encounter Procedures Procedure Name Priority Date/Time Associated Comments Diagnosis US ABDOMEN RAD - Routine 02/23/2019 10:13 Pain Rib Results for this COMPLETE (most inpatients AM RENEWALS SPECIALIST Pain Right Upper procedu re are in and all Quadrant the results outpatients) section. documented in this encounter Results US Abdomen Complete (02/23/2019 10:13 AM RENEWALS SPECIALIST) Anatomical Region Laterality Modality Abdomen, Ultrasound RST LOS, Ultrasound ARZ LOS, Ultrasound FLA N/A Ultrasound LOS Specimen (Source) Anatomical Collection Method Collection Time Re ceived Time Location / / Volume Laterality 02/23/2019 12:47 PM RENEWALS SPECIALIST Impressions 02/23/2019 12:53 PM RENEWALS SPECIALIST No acute findings. Narrative 02/23/2019 12:53 PM RENEWALS SPECIALIST EXAM: US ABDOMEN COMPLETE COMPARISON: None FINDINGS: [...] as of this encounter Care Teams Production Zone Leader Relationship Specialty Start Date End Date Norma Kenny APRN, C.N.P. PCP - General 09/12/[address] [place] [phone] documented as of this encounter
--- OUTSIDE RECORDS SUMMARY | 2022-01-29 04:15 | XMS_ITS | Encounter Summary ---
:1965 Author Organization [facility] Address [address] [place] [address] Care Team Providers Name Role Phone Efraín Norma Salas APRN C.N.P. 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 PCP - General 09/12/[address] [place] [phone] documented as of this encounter
--- OUTSIDE RECORDS SUMMARY | 2022-01-29 04:15 | XMS_ITS | Encounter Summary ---
:1965 Author Organization [facility] Address [address] [place] [address] Care Team Providers Name Role Phone Norma Kenny APRN, C.N.P. Primary Care Provider [phone] Reason for Visit Physical Therapy (Routine) - Canceled Specialty Diagnoses / Procedures Referred By Contact Refer red To Contact Diagnoses Pain Shoulder Left M25.512 (ICD-10-CM) - Pain Shoulder Left Ame Beal APRN, [facility] Region Procedures PT Ongoing treatment PMR THER PT C.N.P., R.N. [address] [facility], [facility] [address] [place] [address] Referral ID Status Reason Start Date Expiration Date Visits V isits Requested Authorized [id number] Canceled 05/04/2018 03/30/2019 99 39 Encounter Details Date Type Department Care Team Description 06/03/2018 Clinical Support Department of Physical Ame Beal APRN, C.N.P., R.N. 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 - 06/03/2018 8:00 AM CST Physical Therapy Outpatient Treatment Note SUBJECTIVE Patient's Name: Saad Murray Referring Provider: Ame Beal APRN, C* Visit Diagnosis: 1. Pain Shoulder Left Reason for Referral: Left shoulder torn rotator cuff and labral tear Onset Date: 05/07/17 Payor: [facility] [place] / Plan: [facility] [place] / Product Type: PPO / [...] Time (min): 35 min Suzan Quezada P.T. CLE II ASSEMBLER documented in this encounter Plan of Treatment Upcoming Encounters Date Type Specialty Care Team Description 02/15/2022 Office Visit Orthopedic Surgery Madyson Rosa, D.ONikhil [address] [place], [place] [phone] (Wo rk) documented as of this encounter Visit Diagnoses Diagnosis Pain Shoulder Left - Primary documented in this encounter Additional Health Concerns Assessment Noted Time PHQ-9 Depression Total Score: 4 07/11/2017 8:29 AM CDT documented as of this encounter Care Teams Railroad Baggage Porter Relationship Specialty Start Date End Date Norma Kenny, STEVEN, C.N.P. PCP - General 09/12/[address] [place] [address] documented as of this encounter
--- OUTSIDE RECORDS SUMMARY | 2022-01-29 04:15 | XMS_ITS | Encounter Summary ---
:1965 Author Organization [facility] Address [address] [place] [address] Care Team Providers Name Role Phone Norma Kenny APRN, C.N.P. Primary Care Provider [phone] Reason for Visit MRI/CAT/PET Scan (Routine) - Closed Specialty Diagnoses / Procedures Referred By Contact Refer red To Contact Radiology Diagnoses Pain Shoulder Left RAD MR SHOULDER Ame Beal, STEVEN, [facility] Region Procedures MR Shoulder Left without IV Contrast [place] MRI UPR EXT JOINT WO CNTRST HC MRI UPR EXT JOINT WO CNTRST C.N.P., R.N. [address] [facility] [address] [place] [address] Referral ID Status Reason Start Date Expiration Date Visits Requ ested Visits Authorized [id number] Closed 03/13/2018 03/13/2019 1 1 Encounter Details Date Type Department Care Team Description 03/20/2018 Hospital Encounter Department of Radiology, Cole Beal, [facility], in SUBMARINE DIVER, C.N.P ., R.N. 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 documented in this encounter Results MR Shoulder Left without IV Contrast (03/20/2018 8:32 AM SUPERINTENDENT TRANSPORTATION) Anatomical Region Laterality Modality Upper Extremity, Shoulder, Musculoskeletal RST LOS, Left Magnetic Resonance Musculoskeletal ARZ LOS, Muskuloskeletal FLA LOS Specimen (Source) Anatomical Collection Method Collection Time Re ceived Time Location / / Volume Laterality 03/20/2018 9:12 AM SUPERINTENDENT TRANSPORTATION Impressions 03/20/2018 9:37 AM SUPERINTENDENT TRANSPORTATION IMPRESSION: Small tear of the distal supraspinatus t endon. Is difficult to determine if this is a complete or partial thickness tear. Mild biceps tendinosis. Labral tear. Ganglion cyst in the spinoglenoid notch may impinge upon the suprascapular nerve. Narrative 03/20/2018 9:37 AM SUPERINTENDENT TRANSPORTATION EXAM: MR SHOULDER LEFT WITHOUT IV CONTRAST [...] documented as of this encounter Care Teams Shale Processing Technician Relationship Specialty Start Date End Date Norma Kenny APRN, C.N.P. PCP - General 09/12/[address] [place] [phone] documented as of this encounter
--- OUTSIDE RECORDS SUMMARY | 2022-01-29 04:15 | XMS_ITS | Encounter Summary ---
:1965 Author Organization [facility] Address [address] [place] [address] Care Team Providers Name Role Phone Norma Kenny APRN C.N.P. Primary Care Provider [phone] Reason for Referral Outpatient (Routine) - Closed Specialty Diagnoses / Procedures Referred By Contact Refer red To Contact Urology Diagnoses Pain Groin Pain Scrotum [facility] C.N.P[facility] R.N. [address] [facility], [facility] [address] [place] [address] Referral ID Status Reason Start Date Expiration Date Visits Requ ested Visits Authorized [id number] Closed 06/08/2018 06/08/2019 1 1 Reason for Visit Reason Comments Shoulder Pain follow up Appointment Request (Routine) - Closed Specialty Diagnoses / Procedures Referred By Contact Refer red To Contact Family Medicine Referral ID Status Reason Start Date Expiration Date Visits Requ ested Visits Authorized [id number] Closed 06/08/2018 06/08/2019 1 1 Encounter Details Date Type Department Care Team Description 06/08/2018 Office Visit Department of Family Ame Beal Pai n Shoulder Left (Primary Dx); Medicine in [facility] STEVEN C.N.P., Pain Groin; [place], [place] R.N. 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 Hypercholesterolemia ??? Gastroesophageal Reflux [...] Orthopedic Surgery Madyson Rosa D.ONikhil [address] [place], [place] [phone] (Wo rk) Scheduled Referrals Name Type Priority [...] documented as of this encounter Care Teams Fuel Distribution System Operator Relationship Specialty Start Date End Date Norma Kenny, GROMMET WORKER, C.N.P. PCP - General 09/12/[address] [place] [phone] documented as of this encounter
--- OUTSIDE RECORDS SUMMARY | 2022-01-29 04:15 | XMS_ITS | Encounter Summary ---
:1965 Author Organization [facility] Address [address] [place] [address] Care Team Providers Name Role Phone Norma Kenny APRN, C.N.P. 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 - 06/10/2018 2:54 PM CDT Pt has not returned phone calls. Tasha is gone for next 2 weeks. Ok to see claudia or go to [facility]. Telephone Encounter - Luly Marrero - 06/09/2018 1:15 PM CDT LM for patient to call and schedule. Waiting contact agent back Telephone Encounter - Cyn Scott R.N. [...] you with today? Thank you for calling [facility]. documented in this encounter Plan of Treatment Upcoming Encounters Date Type Specialty Care Team Description 02/15/2022 Office Visit Orthopedic Surgery Madyson Rosa, DaydayONikhil [address] [place], [place] [phone] (Wo rk) documented as of this encounter Visit Diagnoses Not on filedocumented in this encounter Additional Health Concerns Assessment Noted Time PHQ-9 Depression Total Score: 4 07/11/2017 8:29 AM CDT documented as of this encounter Care Teams Plate Stacker Relationship Specialty Start Date End Date Norma Kenny APRN, C.N.P. PCP - General 09/12/[address] [place] [address] documented as of this encounter
--- OUTSIDE RECORDS SUMMARY | 2022-01-29 04:15 | XMS_ITS | Encounter Summary ---
:1965 Author Organization [facility] Address [address] [place] [address] Care Team Providers Name Role Phone Norma Kenny APRN, C.NNikhilPNikhil Primary Care Provider [phone] Reason for Referral Outpatient (Routine) - Closed Specialty Diagnoses / Procedures Referred By Contact Refer red To Contact Diagnoses Pain Shoulder Left Navjot Mejias M.D. [facility] Procedures Large Joint Injection AL ARTHCS ASP/INJ MJR JT WO US AL TRIAMCINOLONE ACETONIDE INJ [address], [place] [address] Referral ID Status Reason Start Date Expiration Date Visits Requ ested Visits Authorized [id number] Closed 07/01/2018 07/01/2019 1 1 utpatient (Routine) - Closed Specialty Diagnoses / Procedures Referred By Contact Refer red To Contact Diagnoses Pain Shoulder Left Navjot Mejias M.D. [facility] Procedures Large Joint Injection [address] [address] Referral ID Status Reason Start Date Expiration Date Visits Requ ested Visits Authorized [id number] Closed 07/01/2018 07/01/2019 1 1 Reason for Visit Appointment Request (Routine) - Closed Specialty Diagnoses / Procedures Referred By Contact Refer red To Contact Orthopedic Surgery Diagnoses PAR Review [facility] Region Procedures ORS EST Referral ID Status Reason Start Date Expiration Date Visits Requ ested Visits Authorized [id number] Closed 06/08/2018 06/08/2019 1 1 Encounter Details Date Type Department Care Team Description 07/01/2018 Office Visit Department of Navjot Mejias, Pain Should er Left Orthopedic Surgery in M.D. 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 - 07/01/2018 2:00 PM CDTAssociated Order(s): LARGE JOINT INJECTION Post-Procedure Diagnose(s): Pain Shoulder Left Rdc-fahg-ovbsgbcn-elbow arthrocentesis Date/Time: 07/01/2018 2:38 PM Performed by: NAVJOT MEJIAS Authorized by: NAVJOT MEJIAS Body Art Technician utilized: ship mate not needed Risks discussed with: patient Procedural [...] JOINT INJECTION Post-Procedure Diagnose(s): Pain Shoulder Left Jvj-bfpi-aoypuniz-elbow arthrocentesis Date/Time: 07/01/2018 2:44 PM Performed by: NAVJOT MEJIAS Authorized by: NAVJOT MEJIAS Body Art Technician utilized: ship mate not needed Risks discussed with: patient Procedural [...] chills night sweats anterolateral. He has tried jmwl-hia-kjfdmai analgesics. His current list of health issues [...] Madyson Rosa Dayday kernsONikhil [address] [place] [address] (Wo rk) documented as of this encounter Procedures Procedure Name Priority Date/Time Associated Diagnosis Comme nts AL ARTHCS ASP/INJ Routine 07/01/2018 2:00 PM Pain Shoulder Lef t Results for this MJR JT WO US CDT procedure are i n the results section. AL ARTHCS ASP/INJ Routine 07/01/2018 2:00 PM Pain Shoulder Lef t Results for this MJR JT WO US CDT procedure are i n the results section. documented in this encounter Results AL ARTHCS ASP/INJ MJR JT WO US (07/01/2018 2:00 PM CDT) Narrative MMODAL - 07/01/2018 2:00 PM CDT Navjot Mejias M.D. ? 07/01/2018 ??3:16 PM Laq-kkzm-ehescbkh-elbow arthrocentesis Date/Time: 07/01/2018 2:44 PM Performed by: NAVJOT MEJIAS Authorized by: NAVJOT MEJIAS Body Art Technician utilized: ship mate not ne eded ?? Risks discussed with: [...] Code Phon e Number MMODAL MMODAL NA AL ARTHCS ASP/INJ MJR JT WO US (07/01/2018 2:00 PM CDT) Narrative MMODAL - 07/01/2018 2:00 PM CDT Navjot Mejias M.D. ? 07/01/2018 ??3:16 PM Asc-efyj-rqryrhrg-elbow arthrocentesis Date/Time: 07/01/2018 2:38 PM Performed by: NAVJOT MEJIAS Authorized by: NAVJOT MEJIAS Body Art Technician utilized: ship mate not ne eded ?? Risks discussed with: [...] documented as of this encounter Care Teams Product Design Engineer Relationship Specialty Start Date End Date Norma Kenny, STEVEN, C.N.P. PCP - General 09/12/[address] [place] [address] documented as of this encounter
--- OUTSIDE RECORDS SUMMARY | 2022-01-29 04:15 | XMS_ITS | Encounter Summary ---
:1965 Author Organization [facility] Address [address] [place] [address] Care Team Providers Name Role Phone Norma Kenny APRN, C.N.P. Primary Care Provider [phone] Reason for Visit Physical Therapy (Routine) - Canceled Specialty Diagnoses / Procedures Referred By Contact Refer red To Contact Diagnoses Pain Shoulder Left M25.512 (ICD-10-CM) - Pain Shoulder Left Ame Beal APRN, [facility] Region Procedures PT Ongoing treatment PMR THER PT C.N.P., R.N. [address] [facility], [facility] [address] [place] [address] Referral ID Status Reason Start Date Expiration Date Visits V isits Requested Authorized [id number] Canceled 05/04/2018 03/30/2019 99 39 Encounter Details Date Type Department Care Team Description 05/20/2018 Clinical Support Department of Physical Ame Beal APRN, C.N.P., R.N. 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 - 05/20/2018 8:45 AM CST Physical Therapy Outpatient Treatment Note SUBJECTIVE Patient's Name: Saad Murray Referring Provider: Ame Beal APRN, C* Visit Diagnosis: 1. Pain Shoulder Left Reason for Referral: Left shoulder torn rotator cuff and labral tear Onset Date: 05/07/17 Payor: [facility] / Plan: [facility] [place] / Product Type: PPO / [...] Time (min): 40 min Suzan Quezada P.T. TER STATION OPERATOR documented in this encounter Plan of Treatment Upcoming Encounters Date Type Specialty Care Team Description 02/15/2022 Office Visit Orthopedic Surgery Madyson Rosa D.O. [address] [place], [place] [phone] (Wo rk) documented as of this encounter Visit Diagnoses Diagnosis Pain Shoulder Left - Primary documented in this encounter Additional Health Concerns Assessment Noted Time PHQ-9 Depression Total Score: 4 07/11/2017 8:29 AM CDT documented as of this encounter Care Teams Thermal Cutter Hand Relationship Specialty Start Date End Date Norma Kenny APRN, C.N.P. PCP - General 09/12/[address] [place] [phone] documented as of this encounter
--- OUTSIDE RECORDS SUMMARY | 2022-01-29 04:15 | XMS_ITS | Encounter Summary ---
:1965 Author Organization [facility] Address [address] [place] [address] Care Team Providers Name Role Phone Norma Kenny APRN C.N.P. Primary Care Provider [phone] Encounter Details Date Type Department Care Team Description 04/30/2018 Hospital Encounter Department of Radiology, EmigdioCole, [facility], in STEVEN, C.N. P., R.N. 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 documented in this encounter Results DX Hip And Pelvis Right 2-3 Views (04/30/2018 9:20 AM ORACLE ERP DEVELOPER) Anatomical Region Laterality Modality Lower Extremity, Pelvis, Hip, Musculoskeletal RST Right Computed Radiography LOS, Musculoskeletal ARZ LOS, Muskuloskeletal FLA LOS Specimen (Source) Anatomical Collection Method Collection Time Re ceived Time Location / / Volume Laterality 04/30/2018 9:37 AM ORACLE ERP DEVELOPER Impressions 04/30/2018 9:38 AM ORACLE ERP DEVELOPER IMPRESSION: Negative pelvis and hips wit h attention to the right. Narrative 04/30/2018 9:38 AM ORACLE ERP DEVELOPER EXAM: DX HIP AND PELVIS RIGHT 2-3 [...] documented as of this encounter Care Teams High Density Finishing Operator Relationship Specialty Start Date End Date Norma Kenny APRN, C.N.P. PCP - General 09/12/[address] [place] [address] documented as of this encounter
--- OUTSIDE RECORDS SUMMARY | 2022-01-29 04:15 | XMS_ITS | Encounter Summary ---
:1965 Author Organization [facility] Address [address] [place] [address] Care Team Providers Name Role Phone Norma Kenny APRN, C.N.P. Primary Care Provider [phone] Reason for Referral Outpatient (Routine) - Closed Specialty Diagnoses / Procedures Referred By Contact Refer red To Contact Family Medicine Ame Beal APRN, [facility] C.N.P., R.N. [address] [facility], [facility] [address] [place] [address] Referral ID Status Reason Start Date Expiration Date Visits Requ ested Visits Authorized [id number] Closed 09/15/2018 09/15/2019 1 1 Scheduling Instructions Annual exam and to go over lab resutls Encounter Details Date Type Department Care Team Description 09/15/2018 Orders Only Department of Family Denise Cortez, R.NNikhil Medicine in [place], [place] [address] [place] [address] Social History Tobacco Use Types Packs/Day [...] How often do you attend protestant or congregational More than 4 time s [...] Date Recorded Male 03/25/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 [address] [place], [place] [address] (Wo rk) Scheduled Referrals Name Type Priority Associated Diagnoses Order S [facility] Family Medicine Outpatient Referral Routine Expec tim: office visit 09/15/2018 (clinic) - Self (Approximate ), Expires: 09/15/2021 documented as of this encounter Visit Diagnoses Not on filedocumented in this encounter Additional Health Concerns Assessment Noted Time PHQ-9 Depression Total Score: 4 07/11/2017 8:29 AM CDT documented as of this encounter Care Teams It Systems Engineer Relationship Specialty Start Date End Date Norma Kenny APRN, C.N.P. PCP - General 09/12/[address] [place] [address] documented as of this encounter
--- OUTSIDE RECORDS SUMMARY | 2022-01-29 04:15 | XMS_ITS | Encounter Summary ---
:1965 Author Organization [facility] Address [address] [place] [address] Care Team Providers Name Role Phone Norma Kenny APRN C.NNikhilPNikhil Primary Care Provider [phone] Reason for Visit Reason Comments Med Refill Encounter Details Date Type Department Care Team Description 07/21/2018 Refill Department of Family Medicine Rosi Pizano, RJefferson Med Refill in [facility] [address] [place] [address] [place] [address] [phone] Social History Tobacco Use Types Packs/Day Years [...] often do you attend jehovah's witness or catholic More than 4 time s [...] at Date Recorded Male 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 documented as of this encounter Miscellaneous Notes Telephone Encounter - Rosi Metcalf RJefferson - 07/21/2018 4:49 PM CDT Last seen by Ame Beal 06/08/2018 Last refill 04/21/2018 documented in this encounter Plan of Treatment Upcoming Encounters Date Type Specialty Care Team Description 02/15/2022 Office Visit Orthopedic Surgery Madyson Rosa il, D.ONikhil [address] [place] [address] (Wo rk) documented as of this encounter Visit Diagnoses Diagnosis Hypertension Essential Primary documented in this encounter Additional Health Concerns Assessment Noted Time PHQ-9 Depression Total Score: 4 07/11/2017 8:29 AM CDT documented as of this encounter Care Teams Director Of Outside Sales Relationship Specialty Start Date End Date Norma Kenny APRN, C.N.P. PCP - General 09/12/[address] [place] [address] documented as of this encounter
--- OUTSIDE RECORDS SUMMARY | 2022-01-29 04:15 | XMS_ITS | Encounter Summary ---
:1965 Author Organization [facility] Address [address] [place] [address] Care Team Providers Name Role Phone Norma Kenny APRN, C.N.P. Primary Care Provider [phone] Reason for Visit Physical Therapy (Routine) - Canceled Specialty Diagnoses / Procedures Referred By Contact Refer red To Contact Diagnoses Pain Shoulder Left M25.512 (ICD-10-CM) - Pain Shoulder Left Ame Beal APRN, [facility] Region Procedures PT Ongoing treatment PMR THER PT C.N.P., R.N. [address] [facility], [facility] [address] [place] [address] Referral ID Status Reason Start Date Expiration Date Visits V isits Requested Authorized [id number] Canceled 05/04/2018 03/30/2019 99 39 Encounter Details Date Type Department Care Team Description 05/22/2018 Clinical Support Department of Physical Ame Beal APRN, C.N.P., R.N. 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 - 05/22/2018 8:00 AM CST Physical Therapy Outpatient Treatment Note SUBJECTIVE Patient's Name: Saad Murray Referring Provider: Ame Beal APRN, C* Visit Diagnosis: 1. Pain Shoulder Left Reason for Referral: Left shoulder torn rotator cuff and labral tear Onset Date: 05/07/17 Payor: [facility] / Plan: [facility] [place] / Product Type: PPO / No [...] He was able to rent a carpet virtual customer assistant and clean his carpets with minimal difficulty [...] Time (min): 40 min Suzan Quezada P.T. CAL OFFICE RECEPTIONIST documented in this encounter Plan of Treatment Upcoming Encounters Date Type Specialty Care Team Description 02/15/2022 Office Visit Orthopedic Surgery RavinnyMadyson haq D.ONikhil [address] [place], [place] [phone] (Wo rk) documented as of this encounter Visit Diagnoses Diagnosis Pain Shoulder Left - Primary documented in this encounter Additional Health Concerns Assessment Noted Time PHQ-9 Depression Total Score: 4 07/11/2017 8:29 AM CDT documented as of this encounter Care Teams Lining Stuffer Relationship Specialty Start Date End Date Norma Kenny APRN, C.N.P. PCP - General 09/12/[address] [place] [address] documented as of this encounter
--- OUTSIDE RECORDS SUMMARY | 2022-01-29 04:15 | XMS_ITS | Encounter Summary ---
:1965 Author Organization [facility] Address [address] [place] [address] Care Team Providers Name Role Phone Norma Kenny APRN, C.NNikhilPNikhil Primary Care Provider [phone] Encounter Details Date Type Department Care Team Description 03/16/2018 Clinical Communication Department of [facility] Artie Butler ae, Medicine in [place], [place] [phone] [place] [address] (Work) [place] [phone] Social History Tobacco Use Types Packs/Day Years [...] How often do you attend bahai or christian More than 4 time s [...] at Date Recorded Male 03/25/2018 1:01 PM SLEEVER documented as of this encounter Miscellaneous Notes Telephone Encounter - Moira Butler C.M.A. - 03/18/2018 9:43 AM CST Patient scheduled for MRI on 03/20, patient notified RX sent to [facility]. VER Telephone Encounter - Moira Butler C.M.A. - 03/16/2018 4:54 PM CST Patient notified and verbalized understanding. He would like RX faxed to [facility]. He states apptsavailable were , Fri and Friday, he is not scheduled yet. VER Telephone Encounter - Ame Beal APRN, C.N.PNikhil - 03/16/2018 4:49 PM SLEEVER Will prescribe lorazepam. He may take half tab 1 hr prior to the procedure. If no effect in 30 min, may take a 2nd. Advised against taking this along with his pain medications as both can cause sleepiness and respiratory depression. Agree with having a vending route driver. Another option would be the open MRI at [facility] in [place]. I am happy to place order if he needs it. Prescription signed and ready. Thanks, HAO VER Telephone Encounter - Moira Butler C.M.A. - 03/16/2018 3:46 PM CST Patient called regarding MRI. He tried to have it done in [place] today, patient did not fit in machine and did get anxiety/claustrophobia. He is rescheduling for [place], will have a vending route driver and is requesting a medication to help him relax during exam. He would like it sent to [facility] in [place], confirmed no allergies to medication. VER documented in this encounter Plan of Treatment Upcoming Encounters Date Type Specialty Care Team Description 02/15/2022 Office Visit Orthopedic Surgery Madyson Rosa, DaydayONikhil [address] [place] [place] [address] (Wo rk) documented as of this encounter Visit Diagnoses Diagnosis Other Situational Type Phobia - Primary documented in this encounter Additional Health Concerns Assessment Noted Time PHQ-9 Depression Total Score: 4 07/11/2017 8:29 AM CDT documented as of this encounter Care Teams Merchandise Shopper Relationship Specialty Start Date End Date Norma Kenny APRN, C.N.P. PCP - General 09/12/[address] [place] [address] documented as of this encounter
--- OUTSIDE RECORDS SUMMARY | 2022-01-29 04:15 | XMS_ITS | Encounter Summary ---
:1965 Author Organization [facility] Address [address] [place] [address] Care Team Providers Name Role Phone Norma Kenny APRN, C.N.P. Primary Care Provider [phone] Reason for Visit Physical Therapy (Routine) - Canceled Specialty Diagnoses / Procedures Referred By Contact Refer red To Contact Diagnoses Pain Shoulder Left M25.512 (ICD-10-CM) - Pain Shoulder Left Ame Beal APRN, [facility] Region Procedures PT Ongoing treatment PMR THER PT C.N.P., R.N. [address] [facility], [facility] [address] [place] [address] Referral ID Status Reason Start Date Expiration Date Visits V isits Requested Authorized [id number] Canceled 05/04/2018 03/30/2019 99 39 Encounter Details Date Type Department Care Team Description 05/11/2018 Clinical Support Department of Physical Ame Beal APRN, C.N.P., R.N. 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 - 05/11/2018 8:45 AM CST Physical Therapy Outpatient Treatment Note SUBJECTIVE Patient's Name: Saad Murray Referring Provider: Ame Beal APRN, C* Visit Diagnosis: 1. Pain Shoulder Left Reason for Referral: Left shoulder torn rotator cuff and labral tear Onset Date: 05/07/17 Payor: [facility] / Plan: [facility] [place] / Product Type: PPO [...] Time (min): 36 min Suzan Quezada P.T. ECT MANAGEMENT PROFESSOR documented in this encounter Plan of Treatment Upcoming Encounters Date Type Specialty Care Team Description 02/15/2022 Office Visit Orthopedic Surgery Madyson Rosa, D.ONikhil [address] [place], [place] [address] (Wo rk) documented as of this encounter Visit Diagnoses Diagnosis Pain Shoulder Left - Primary documented in this encounter Additional Health Concerns Assessment Noted Time PHQ-9 Depression Total Score: 4 07/11/2017 8:29 AM CDT documented as of this encounter Care Teams Framework Developer Relationship Specialty Start Date End Date Norma Kenny APRN, C.N.P. PCP - General 09/12/[address] [place] [address] documented as of this encounter
--- OUTSIDE RECORDS SUMMARY | 2022-01-29 04:15 | XMS_ITS | Encounter Summary ---
:1965 Author Organization [facility] Address [address] [place] [address] Care Team Providers Name Role Phone Efraín Norma Salas APRN C.N.P. 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 At this time the order has been deferred indefinitely. This order can still be scheduled at any time. If you recommend further action is necessary please communicate as needed. Thank you CIENCES ASSOCIATE PROFESSOR documented in this encounter Plan of Treatment Upcoming Encounters Date Type Specialty Care Team Description 02/15/2022 Office Visit Orthopedic Surgery Madyson Rosa, D.O. [address] [place], [place] [address] (Wo rk) documented as of this encounter Visit Diagnoses Not on filedocumented in this encounter Additional Health Concerns Assessment Noted Time PHQ-9 Depression Total Score: 4 07/11/2017 8:29 AM CDT documented as of this encounter Care Teams Systems Integrator Relationship Specialty Start Date End Date Norma Kenny APRN, C.N.P. PCP - General 09/12/[address] [place] [address] documented as of this encounter
--- OUTSIDE RECORDS SUMMARY | 2022-01-29 04:15 | XMS_ITS | Encounter Summary ---
:1965 Author Organization [facility] Address [address] [place] [address] Care Team Providers Name Role Phone Norma Kenny APRN, C.N.P. Primary Care Provider [phone] Reason for Visit Physical Therapy (Routine) - Canceled Specialty Diagnoses / Procedures Referred By Contact Refer red To Contact Diagnoses Pain Shoulder Left M25.512 (ICD-10-CM) - Pain Shoulder Left Ame Beal APRN, [facility] Region Procedures PT Ongoing treatment PMR THER PT C.N.P., R.N. [address] [facility], [facility] [address] [place] [address] Referral ID Status Reason Start Date Expiration Date Visits V isits Requested Authorized [id number] Canceled 05/04/2018 03/30/2019 99 39 Encounter Details Date Type Department Care Team Description 05/14/2018 Clinical Support Department of Physical Ame Beal APRN, C.N.P., R.N. 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 - 05/14/2018 8:45 AM CST Physical Therapy Outpatient Treatment Note SUBJECTIVE Patient's Name: Saad Murray Referring Provider: Ame Beal APRN, C* Visit Diagnosis: 1. Pain Shoulder Left Reason for Referral: Left shoulder torn rotator cuff and labral tear Onset Date: 05/07/17 Payor: [facility] / Plan: [facility] [place] / Product Type: PPO / No [...] Time (min): 39 min Suzan Quezada P.T. ACCOUNTANT documented in this encounter Plan of Treatment Upcoming Encounters Date Type Specialty Care Team Description 02/15/2022 Office Visit Orthopedic Surgery RavinflMadyson haq il, D.ONikhil [address] [place], [place] [phone] (Wo rk) documented as of this encounter Visit Diagnoses Diagnosis Pain Shoulder Left - Primary documented in this encounter Additional Health Concerns Assessment Noted Time PHQ-9 Depression Total Score: 4 07/11/2017 8:29 AM CDT documented as of this encounter Care Teams Communications Supervisor Relationship Specialty Start Date End Date Norma Kenny APRN, C.N.P. PCP - General 09/12/[address] [place] [address] documented as of this encounter
--- OUTSIDE RECORDS SUMMARY | 2022-01-29 04:15 | XMS_ITS | Encounter Summary ---
:1965 Author Organization [facility] Address [address] [place] [address] Care Team Providers Name Role Phone Norma Kenny APRN, C.N.P. Primary Care Provider [phone] Reason for Referral Outpatient (Routine) - Closed Specialty Diagnoses / Procedures Referred By Contact Refer red To Contact Diagnoses Pain Shoulder Left Davon Mejias M.D. [facility] Procedures Large Joint Injection CO ARTHCS ASP/INJ MJR JT WO US CO TRIAMCINOLONE ACETONIDE INJ [address] [place] [address] Referral ID Status Reason Start Date Expiration Date Visits Requ ested Visits Authorized [id number] Closed 03/25/2018 03/25/2019 1 0 IAL PROGRAMS DIRECTOR Reason for Visit Outpatient (Routine) - Closed Specialty Diagnoses / Procedures Referred By Contact Refer red To Contact Orthopedic Surgery Diagnoses Pain Shoulder Left Ame Beal APRN, [facility] Region C.N.P., R.N. [address] , [place] [address] [place] [address] Referral ID Status Reason Start Date Expiration Date Visits Requ ested Visits Authorized [id number] Closed 03/13/2018 03/13/2019 1 1 Encounter Details Date Type Department Care Team Description 03/25/2018 Comprehensive Visit Department of Darci Solis D.O. [address] [place] [phone] Pain Shoulder Left Orthopedic Surgery Davon Mejias M.D. [address] [place] [address] in [place], [place] [address] [place] [address] Social History Tobacco Use Types [...] How often do you attend baptist or holiness More than 4 time s [...] at Date Recorded Male 03/25/2018 1:01 PM SPECIAL PROGRAMS DIRECTOR documented as of this encounter Last Filed Vital Signs Vital Sign Reading Time Taken Comments Blood Pressure 135/86 03/25/2018 12:53 PM SPECIAL PROGRAMS DIRECTOR Pulse 82 03/25/2018 12:53 PM SPECIAL PROGRAMS DIRECTOR Temperature - - Respiratory Rate 18 03/25/2018 12:53 PM SPECIAL PROGRAMS DIRECTOR Oxygen Saturation - - Inhaled Oxygen Concentration - - Weight - - Height - - Body Mass Index - - documented in this encounter Procedure Notes Davon Mejias M.D. - 03/25/2018 1:00 PM CSTAssociated Order(s): LARGE JOINT INJECTION Post-Procedure Diagnose(s): Pain Shoulder Left Kzw-whxm-pwzossmc-elbow arthrocentesis Date/Time: 03/25/2018 1:53 PM Performed by: [...] for comfort and follow-up with ordering provider IAL PROGRAMS DIRECTOR documented in this encounter Consult Notes Davon [...] glenoid cyst. For evaluation. He has tried xhwt-zrf-zyarraf analgesics in terms of Tylenol and NSAIDs. [...] the patient on 03/25/2018 Loud snoring: Yes IAL PROGRAMS DIRECTOR documented in this encounter Plan of Treatment Upcoming Encounters Date Type Specialty Care Team Description 02/15/2022 Office Visit Orthopedic Surgery Madyson Rosa Jarad kerns.ONikhil [address] [place] [phone] (Wo rk) documented as of this encounter Procedures Procedure Name Priority Date/Time Associated Diagnosis Comme nts CO ARTHCS ASP/INJ Routine 03/25/2018 1:00 PM Pain Shoulder Lef t Results for this MJR JT WO US SPECIAL PROGRAMS DIRECTOR procedure are i n the results section. documented in this encounter Results CO ARTHCS ASP/INJ MJR JT WO US (03/25/2018 1:00 PM SPECIAL PROGRAMS DIRECTOR) Narrative MMODAL - 03/25/2018 1:00 PM SPECIAL PROGRAMS DIRECTOR Davon Mejias M.D. ? 03/25/2018 ??2:52 PM Moj-xjhr-svksxscg-elbow arthrocentesis Date/Time: 03/25/2018 1:53 PM Performed by: [...] injection 80 mg Given 03/25/2018 1:53 PM SPECIAL PROGRAMS DIRECTOR 80 mg (KENALOG-40) 80 mg, intra-articular, One-Time Injection, Starting on Fri03/25/18 at 1353, For 1 dose documented in this encounter Additional Health Concerns Assessment Noted Time PHQ-9 Depression Total Score: 4 07/11/2017 8:29 AM CDT documented as of this encounter Care Teams Endoscopy Specialty Technician Relationship Specialty Start Date End Date Norma Kenny, BLEACH LIQUOR MAKER, C.N.P. PCP - General 09/12/[address] [facility] [place] [address] documented as of this encounter
--- OUTSIDE RECORDS SUMMARY | 2022-01-29 04:15 | XMS_ITS | Encounter Summary ---
:1965 Author Organization [facility] Address [address] [place] [address] Care Team Providers Name Role Phone Norma Kenny APRN C.N.P. Primary Care Provider [phone] Encounter Details Date Type Department Care Team Description 06/29/2018 Clinical Communication Department of Chase Philippe, Medicine in [facility] STEVEN C.N.PNikhil [place], [place] [address] [place] [address] [phone] Social History Tobacco Use Types Packs/Day Years [...] How often do you attend yazdanism or confucianist More than 4 time s [...] at Date Recorded Male 03/25/2018 1:01 PM HAT LACER documented as of this encounter Miscellaneous Notes [...] Team Description 02/15/2022 Office Visit Orthopedic Surgery RavinncMadyson haq il, D.ONikhil [address] [place], [place] [phone] (Wo rk) documented as of this encounter Visit Diagnoses Not on filedocumented in this encounter Additional Health Concerns Assessment Noted Time PHQ-9 Depression Total Score: 4 07/11/2017 8:29 AM CDT documented as of this encounter Care Teams Storekeeper Helper Relationship Specialty Start Date End Date Norma Kenny APRN, C.N.P. PCP - General 09/12/[address] [place] [address] documented as of this encounter
--- OUTSIDE RECORDS SUMMARY | 2022-01-29 04:15 | XMS_ITS | Encounter Summary ---
:1965 Author Organization [facility] Address [address] [place] [address] Care Team Providers Name Role Phone Norma Kenny APRN C.N.P. Primary Care Provider [phone] Encounter Details Date Type Department Care Team Description 09/10/2018 Hospital Encounter Department of [facility], Ame Valdese nsion Essential Primary; Laboratory Medicine STEVEN Abraham, Hyperlip idemia in [place], C.N.P., R.N. [place] [address] [facility], [address] [place] [address] [place] [address] [phone] Social History Tobacco Use Types Packs/Day Years [...] How often do you attend moravian or mormon More than 4 time s [...] Date Recorded Male 03/25/2018 1:01 PM CLINICAL LABORATORY MEDICAL DIRECTOR documented as of this encounter Medications [...] Surgery Madyson Rosa, Jarad.ONikhil [address] [place], [place] [phone] (Wo rk) documented as [...] Organization Address City/State/ZIP Code Phon e Number [facility] [address] [place] [address] [facility] AST (Aspartate Aminotransferase) (09/10/2018 3:46 PM CDT) [facility] Method Time Signature Aspartate 25 8 - 48 09/10/2018 Aminotransferase U/L 7:33 PM CDT (AST), S Specimen Anatomical Collection Method Collection Time Receive d Time (Source) Location / / Volume Laterality Blood (Blood, 09/10/2018 3:46 PM 09/11/19 19 6:51 Venous) CDT PM CDT Caridad Teague APRN.N.P., R.N. LAB BLOOD ADD-ON Performing Organization Address [facility] Phon e Number [address] [address] [facility] ALT (Alanine Aminotransferase) (09/10/2018 3:46 PM CDT) [facility] Method Time Signature Alanine 28 7 - 55 09/10/2018 Aminotransferase U/L 7:33 PM CDT (ALT), S Specimen Anatomical Collection Method Collection Time Receive d Time (Source) Location / / Volume Laterality Blood (Blood, 09/10/2018 3:46 PM 09/11/19 19 6:51 Venous) CDT PM CDT Caridad Teague APRN.N.P., R.N. LAB BLOOD ADD-ON Performing Organization Address [facility] Phon e Number [address] [address] [facility] (ABNORMAL) Basic Metabolic Panel (09/10/2018 3:46 [...] >=60 09/10/2018 Black/ mL/min/BSA 7:33 PM CDT Jamaican Comment: ----ADDITIONAL INFORMATION---- Estimated GFR calculated using [...] Organization Address City/State/ZIP Code Phon e Number [facility] [address] [place] [address] [facility] documented in this encounter Visit Diagnoses Diagnosis Hypertension Essential Primary Hyperlipidemia documented in this encounter Additional Health Concerns Assessment Noted Time PHQ-9 Depression Total Score: 4 07/11/2017 8:29 AM CDT documented as of this encounter Care Teams Ingot Car Operator Relationship Specialty Start Date End Date Norma Kenny APRN, C.N.P. PCP - General 09/12/[address] [place] [address] documented as of this encounter
--- OUTSIDE RECORDS SUMMARY | 2022-01-29 04:15 | XMS_ITS | Encounter Summary ---
:1965 Author Organization [facility] Address [address] [place] [address] Care Team Providers Name Role Phone Norma Kenny APRN C.N.P. Primary Care Provider [phone] Reason for Visit Reason Onset Date Comments Communication 07/22/2018 Encounter Details Date Type Department Care Team Description 07/22/2018 Clinical Communication Department of [facility] Cole Beal, Communication [facility], C.N.P.[place], [place] R.N. [address] [facility] [address] [address] [place], [place] [phone] [address] Social History Tobacco Use Types Packs/Day Years [...] How often do you attend tenriism or buddhism More than 4 time s [...] at Date Recorded Male 03/25/2018 1:01 PM HORIZONTAL RESAW OPERATOR documented as of this encounter Miscellaneous [...] you with today? Thank you for calling [facility]. documented in this encounter Plan of Treatment Upcoming Encounters Date Type Specialty Care Team Description 02/15/2022 Office Visit Orthopedic Surgery Madyson Rosa D.O. [address] [place], [place] [address] (Wo rk) documented as [...] R.N. LAB BLOOD ADD-ON Performing Organization Address [facility]/ZIP Code Phon e Number [address] [address] [facility] AST (Aspartate Aminotransferase) (09/10/2018 3:46 PM CDT) [facility] Method Time Signature Aspartate 25 8 - 48 09/10/2018 Aminotransferase U/L 7:33 PM CDT (AST), S Specimen Anatomical Collection Method Collection Time Receive d Time (Source) Location / / Volume Laterality Blood (Blood, 09/10/2018 3:46 PM 09/11/19 19 6:51 Venous) CDT PM CDT Ame Beal APRN C.N.P., R.N. LAB BLOOD ADD-ON Performing Organization Address [facility]/ZIP Code Phon e Number [address] [address] [facility] ALT (Alanine Aminotransferase) (09/10/2018 3:46 PM CDT) [facility] Method Time Signature Alanine 28 7 - 55 09/10/2018 Aminotransferase U/L 7:33 PM CDT (ALT), S Specimen Anatomical Collection Method Collection Time Receive d Time (Source) Location / / Volume Laterality Blood (Blood, 09/10/2018 3:46 PM 09/11/19 19 6:51 Venous) CDT PM CDT Ame Beal APRN C.N.P., R.N. LAB BLOOD ADD-ON Performing Organization Address [facility]/ZIP Code Phon e Number [address] [address] [facility] (ABNORMAL) Basic Metabolic Panel (09/10/2018 [...] >=60 09/10/2018 Black/ mL/min/BSA 7:33 PM CDT Palauan Comment: ----ADDITIONAL INFORMATION---- Estimated GFR calculated using [...] Organization Address City/State/ZIP Code Phon e Number [facility] [address] [address] [place] documented in this encounter Visit Diagnoses Diagnosis Hyperlipidemia - Primary Hypertension Essential Primary documented in this encounter Additional Health Concerns Assessment Noted Time PHQ-9 Depression Total Score: 4 07/11/2017 8:29 AM CDT documented as of this encounter Care Teams Rotary Lithographic Press Operator Relationship Specialty Start Date End Date Norma Kenny APRN, C.N.P. PCP - General 09/12/[address] [place] [phone] documented as of this encounter
--- OUTSIDE RECORDS SUMMARY | 2022-01-29 04:15 | XMS_ITS | Encounter Summary ---
:1965 Author Organization [facility] Address [address] [place] [address] Care Team Providers Name Role Phone Norma Kenny APRN, C.N.P. Primary Care Provider [phone] Reason for Visit Physical Therapy (Routine) - Canceled Specialty Diagnoses / Procedures Referred By Contact Refer red To Contact Diagnoses Pain Shoulder Left M25.512 (ICD-10-CM) - Pain Shoulder Left Ame Beal APRN, [facility] Region Procedures PT Ongoing treatment PMR THER PT C.N.P., R.N. [address] [facility], [facility] [address] [place] [address] Referral ID Status Reason Start Date Expiration Date Visits V isits Requested Authorized [id number] Canceled 05/04/2018 03/30/2019 99 39 Encounter Details Date Type Department Care Team Description 05/25/2018 Clinical Support Department of Physical Ame Beal APRN, C.N.P., R.N. [address] [facility], [facility] [address] [place], [place] [address] Pain Shoulder Left Young and Suzan Quezada, PNikhliTNikhil [address] [place] [phone] (Primary Dx) Rehabilitation in [place], [place] [address] [place] [address] Social History Tobacco Use Types Packs/Day Years [...] How often do you attend muslim or zoroastrian More than 4 time s [...] at Date Recorded Male 03/25/2018 1:01 PM ROOMS DIRECTOR documented as of this encounter Progress Notes Suzan Quezada, PBhanu. - 05/25/2018 8:00 AM CST Physical Therapy Outpatient Treatment Note SUBJECTIVE Patient's Name: Saad Murray Referring Provider: Ame Beal APRN, C* Visit Diagnosis: 1. Pain Shoulder Left Reason for Referral: Left shoulder torn rotator cuff and labral tear Onset Date: 05/07/17 Payor: [facility] / Plan: [facility] [place] / Product [...] Time (min): 30 min Suzan Quezada P.T. S DIRECTOR documented in this encounter Plan of Treatment Upcoming Encounters Date Type Specialty Care Team Description 02/15/2022 Office Visit Orthopedic Surgery RavinprMadyson haq, DaydayONikhil [address] [place], [place] [phone] (Wo rk) documented as of this encounter Visit Diagnoses Diagnosis Pain Shoulder Left - Primary documented in this encounter Additional Health Concerns Assessment Noted Time PHQ-9 Depression Total Score: 4 07/11/2017 8:29 AM CDT documented as of this encounter Care Teams Florist Helper Relationship Specialty Start Date End Date Norma Kenny APRN, C.N.P. PCP - General 09/12/[address] [place] [phone] documented as of this encounter
--- OUTSIDE RECORDS SUMMARY | 2022-01-29 04:15 | XMS_ITS | Encounter Summary ---
:1965 Author Organization [facility] Address [address] [place] [address] Care Team Providers Name Role Phone Norma Kenny APRN, C.N.P. 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 - 03/25/2018 8:45 AM CST Received call from Elba mcgrath, at [facility] asking if this patient could be seen in ortho clinic today. Has an appointment in [place] on 04-02-18 in ortho department. Ame Beal is asking if this patient could be seen here sooner, today if possible. Spoke to Marina at [facility] stating the patient had an MRI of [...] be seen by Dr. Hawk on 04/03/18. RER'S AIDE documented in this encounter Plan of Treatment Upcoming Encounters Date Type Specialty Care Team Description 02/15/2022 [facility] [address] [place], [place] [address] (Wo rk) documented as of this encounter Visit Diagnoses Not on filedocumented in this encounter Additional Health Concerns Assessment Noted Time PHQ-9 Depression Total Score: 4 07/11/2017 8:29 AM CDT documented as of this encounter Care Teams Elastic Yarn Twister Helper Relationship Specialty Start Date End Date Norma Kenny APRN, C.N.P. PCP - General 09/12/[address] [place] [address] documented as of this encounter
--- OUTSIDE RECORDS SUMMARY | 2022-01-29 04:15 | XMS_ITS | Encounter Summary ---
:1965 Author Organization [facility] Address [address] [place] [address] Care Team Providers Name Role Phone Norma Kenny APRN C.N.P. Primary Care Provider [phone] Reason for Visit Reason Comments Shoulder Pain left shoulder, had MRI, saw ortho, got cortisone inj, recently reinjured during a fall Encounter Details Date Type Department Care Team Description 04/30/2018 Office Visit Department of Ame Barnes, Hyp ertension Essential Primary (Primary Dx); Medicine in [facility] STEVEN C.N.PNikhil, Palpitation s; [place], [place] R.N. Pain Shoulder Left; [address], [place]; [place], [place] [address] Pain Groin [address] [place], [place] [phone] [address] Social History Tobacco Use Types Packs/Day Years [...] at Date Recorded Male 03/25/2018 1:01 PM FURNITURE DUSTER documented as of this encounter Last Filed Vital Signs Vital Sign Reading Time Taken Comments Blood Pressure 136/72 04/30/2018 8:12 AM FURNITURE DUSTER Pulse 94 04/30/2018 8:12 AM FURNITURE DUSTER Temperature 36.4 ??C (97.5 ??F) 04/30/2018 8:12 AM FURNITURE DUSTER Respiratory Rate - - Oxygen Saturation 98% 04/30/2018 8:12 AM FURNITURE DUSTER Inhaled Oxygen Concentration - - Weight 133 kg (292 lb 4.8 oz) 04/30/2018 8:12 AM FURNITURE DUSTER Height - - Body Mass Index 39.16 [...] obvious swelling. No crepitus. Genitourinary: Moira Luke SAND AND GRAVEL PLANT OPERATOR present for exam. Approximately 2 mm firm [...] with current plan. Ame Beal APRN, C.N.P. ITURE DUSTER documented in this encounter Plan of Treatment Upcoming Encounters Date Type Specialty Care Team Description 02/15/2022 Office Visit Orthopedic Surgery Madyson Rosa, D.O. [address] [place] [phone] (Wo rk) documented as of this encounter Procedures Procedure Name Priority Date/Time Associated Comments Diagnosis DX HIP AND PELVIS RAD - Routine 04/30/2018 9:20 Pain Groin Result s for this RIGHT 2-3 VIEWS (most inpatients AM FURNITURE DUSTER procedur e are in and all the results outpatients) section. documented in this encounter Results US Scrotum (02/23/2019 10:22 AM FURNITURE DUSTER) Anatomical Region Laterality Modality Testes, Ultrasound RST LOS, Ultrasound ARZ LOS, Ultrasound F LA N/A Ultrasound LOS Specimen (Source) Anatomical Collection Method Collection Time Re ceived Time Location / / Volume Laterality 02/23/2019 12:22 PM FURNITURE DUSTER Impressions 02/23/2019 12:29 PM FURNITURE DUSTER Palpable finding on exam corresponds to a tiny echogenic focus within the right epididymal body. Favor benign etiology, and consider small adenomatoid tumor or lipoma. Recommend u rology consultation and sonographic follow-up in the absence of surgical res ection. Narrative 02/23/2019 12:29 PM FURNITURE DUSTER EXAM: US SCROTUM COMPARISON: None. FINDINGS: Right [...] Pelvis Right 2-3 Views (04/30/2018 9:20 AM FURNITURE DUSTER) Anatomical Region Laterality Modality Lower Extremity, Pelvis, Hip, Musculoskeletal RST Right Computed Radiography LOS, Musculoskeletal ARZ LOS, Muskuloskeletal FLA LOS Specimen (Source) Anatomical Collection Method Collection Time Re ceived Time Location / / Volume Laterality 04/30/2018 9:37 AM FURNITURE DUSTER Impressions 04/30/2018 9:38 AM FURNITURE DUSTER IMPRESSION: Negative pelvis and hips wit h attention to the right. Narrative 04/30/2018 9:38 AM FURNITURE DUSTER EXAM: DX HIP AND PELVIS RIGHT 2-3 [...] documented as of this encounter Care Teams Ballistician Relationship Specialty Start Date End Date Norma Kenny APRN, C.N.P. PCP - General 09/12/[address] [place] [address] documented as of this encounter
--- OUTSIDE RECORDS SUMMARY | 2022-01-29 04:15 | XMS_ITS | Encounter Summary ---
:1965 Author Organization [facility] Address [address] [place] [address] Care Team Providers Name Role Phone Norma Kenny APRN C.N.P. Primary Care Provider [phone] Reason for Referral Physical Therapy (Routine) - Closed Specialty Diagnoses / Procedures Referred By Contact Refer red To Contact Diagnoses Pain Hip Right ar Ame Beal APRN, [facility] Region Procedures PT Evaluate and treat pt C.N.P., R.N. [address] [place] [address], [facility] 20 1 [place] [address] Referral ID Status Reason Start Date Expiration Date Visits Requ ested Visits Authorized [id number] Closed 04/30/2018 04/30/2019 1 1 ERPRINTER Physical Therapy (Routine) - Closed Specialty Diagnoses / Procedures Referred By Contact Refer red To Contact Diagnoses Pain Shoulder Left Ame Beal APRN, [facility] Region Procedures PT Evaluate and treat C.N.P., R.N. 216 3rd [facility], [place] 20 1 [place] [address] Referral ID Status Reason Start Date Expiration Date Visits Requ ested Visits Authorized [id number] Closed 04/30/2018 04/30/2019 1 1 ERPRINTER Encounter Details Date Type Department Care Team Description 04/30/2018 Orders Only Department of Family Ame Beal Pai n Shoulder Left (Primary Dx); [facility] C.NNikhilP., Pain Hip Ri ght [place], [place] R.N. [address], Jean [place], [place] [address] [place] [address] [phone] Social History Tobacco Use Types Packs/Day Years [...] How often do you attend jain or gnosticism More than 4 time s [...] at Date Recorded Male 03/25/2018 1:01 PM FINGERPRINTER documented as of this encounter Plan of Treatment Upcoming Encounters Date Type Specialty Care Team Description 02/15/2022 Office Visit Orthopedic Surgery Madyson Rosa, D.ONikhil [address] [place] [phone] (Wo rk) documented as of this encounter Visit Diagnoses Diagnosis Pain Shoulder Left - Primary Pain Hip Right documented in this encounter Additional Health Concerns Assessment Noted Time PHQ-9 Depression Total Score: 4 07/11/2017 8:29 AM CDT documented as of this encounter Care Teams Medieval English Literature Professor Relationship Specialty Start Date End Date Norma Kenny APRN, C.N.P. PCP - General 6/15/[address] [place] [phone] documented as of this encounter
--- OUTSIDE RECORDS SUMMARY | 2022-01-29 04:15 | XMS_ITS | Encounter Summary ---
:1965 Author Organization [facility] Address [address] [place] [address] Care Team Providers Name Role Phone Norma Kenny APRN, C.N.P. Primary Care Provider [phone] Reason for Visit Physical Therapy (Routine) - Canceled Specialty Diagnoses / Procedures Referred By Contact Refer red To Contact Diagnoses Pain Shoulder Left M25.512 (ICD-10-CM) - Pain Shoulder Left Ame Beal APRN, [facility] Region Procedures PT Ongoing treatment PMR THER PT C.N.P., R.N. [address] [facility], [facility] 20 1 [place] [address] Referral ID Status Reason Start Date Expiration Date Visits V isits Requested Authorized [id number] Canceled 05/04/2018 03/30/2019 99 39 Encounter Details Date Type Department Care Team Description 05/29/2018 Clinical Support Department of Physical Ame Beal APRN, C.N.P., R.N. [address] 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 - 05/29/2018 8:00 AM CST Physical Therapy Outpatient Treatment Note SUBJECTIVE Patient's Name: Saad Murray Referring Provider: Ame Beal APRN, C* Visit Diagnosis: 1. Pain Shoulder Left Reason for Referral: Left shoulder torn rotator cuff and labral tear Onset Date: 05/07/17 Payor: [facility] / Plan: [facility] [place] / Product Type: PPO / No [...] Time (min): 32 min Suzan Quezada P.T. NE EXTENSION AGENT documented in this encounter Plan of Treatment Upcoming Encounters Date Type Specialty Care Team Description 02/15/2022 Office Visit Orthopedic Surgery Madyson Rosa il, D.ONikhil [address] [place], [place] [phone] (Wo rk) documented as of this encounter Visit Diagnoses Diagnosis Pain Shoulder Left - Primary documented in this encounter Additional Health Concerns Assessment Noted Time PHQ-9 Depression Total Score: 4 07/11/2017 8:29 AM CDT documented as of this encounter Care Teams Smooth Stucco Resurfacer Relationship Specialty Start Date End Date Norma Kenny APRN, C.N.P. PCP - General 09/12/[address] [place] [address] documented as of this encounter
--- OUTSIDE RECORDS SUMMARY | 2022-01-29 04:15 | XMS_ITS | Encounter Summary ---
:1965 Author Organization [facility] Address [address] [place] [address] Care Team Providers Name Role Phone Norma Kenny APRN, C.NNikhilPNikhil Primary Care Provider [phone] Reason for Visit Reason Comments Med Refill Encounter Details Date Type Department Care Team Description 09/07/2018 Refill Department of Family Medicine Medina Schmitt, [facility] [place] [facility] [place] [phone] Social History Tobacco Use Types Packs/Day [...] How often do you attend anabaptist or gnosticism More than 4 time s [...] for the very basics like Not h ikrit at all 09/17/2018 food, housing, medical care, [...] Date Recorded 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 PCP - General 09/12/[address] [place] [address] documented as of this encounter
--- OUTSIDE RECORDS SUMMARY | 2022-01-29 04:15 | XMS_ITS | Encounter Summary ---
:1965 Author Organization [facility] Address [address] [place] [address] Care Team Providers Name Role Phone Norma Kenny APRN C.N.P. Primary Care Provider [phone] Reason for Referral Outpatient (Routine) - Closed Specialty Diagnoses / Procedures Referred By Contact Refer red To Contact Family Medicine Diagnoses Hypertension Essential Primary Ame Beal APRN, [facility] Region C.N.P., R.N. [address] [place] [address], [facility] [address] [place] [address] Referral ID Status Reason Start Date Expiration Date Visits Requ ested Visits Authorized [id number] Closed 09/17/2018 09/17/2019 1 1 Reason for Visit Reason Comments Annual Exam Fall recent fall off of ladder, h as arm pain and RUQ abd pain Outpatient (Routine) - Closed Specialty Diagnoses / Procedures Referred By Contact Refer red To Contact Family Medicine [facility]al [facility]N [facility] Region C.N.P., R.N. 216 3rd [facility], [facility] [address] [place] [address] Referral ID Status Reason Start Date Expiration Date Visits Requ ested Visits Authorized [id number] Closed 09/15/2018 09/15/2019 1 1 Encounter Details Date Type Department Care Team Description 09/17/2018 Comprehensive Visit Department of Ame Beal Gastro esophageal Reflux Disease (Primary Dx); Family Medicine in [place], PATIENT ACCESS, Hypertens ion Essential Primary; [place], C.NJoseline., R.N. 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 Has no pets. Plans to move into [employer] farm this year after renovation and sell [...] Team Description 02/15/2022 Office Visit Orthopedic Surgery [facility] Mi il, D.O. [address] [place] [phone] (Wo rk) Scheduled Referrals Name Type Priority Associated Diagnoses Order S [facility] Family Medicine Outpatient Referral [...] Results (ABNORMAL) Lipid Panel (05/21/2019 7:57 AM EARLY CHILDHOOD ASSISTANT) athologist Signature Cholesterol, 218 (H) mg/dL 05/21/2019 NPRG Total 8:26 AM EARLY CHILDHOOD ASSISTANT Comment: ----REFERENCE VALUE---- Desirable: < 200 Borderline high: 200 - 239 High: > or = 240 Triglycerides 56 mg/dL 05/21/2019 8:26 AM EARLY CHILDHOOD ASSISTANT NPR G Comment: ----REFERENCE VALUE---- Normal: <150 Borderline high: 150-199 High: 200-499 Very high: > or =500 Cholesterol, HDL 80 >=40 mg/dL 05/21/2019 8:26 AM EARLY CHILDHOOD ASSISTANT NPRG Calculated LDL 127 mg/dL 05/21/2019 8:26 AM EARLY CHILDHOOD ASSISTANT ROLL CUTTER RG Comment: ----REFERENCE VALUE---- Desirable: <100 Above Desirable: 100-129 Borderline high: 130-159 High: 160-189 Very high: > or =190 Cholesterol, Non-HDL, Calculated 138 mg/dL 020 8:26 AM EARLY CHILDHOOD ASSISTANT NPRG Comment: ----REFERENCE VALUE---- Desirable: <130 Above Desirable: 130-159 Borderline high: 160-189 High: 190-219 Very high: > or =220 Specimen Anatomical Collection Method Collection Time Receive d Time (Source) Location / / Volume Laterality Blood (Blood, 05/21/2019 7:57 AM 05/21/19 7:59 Venous) EARLY CHILDHOOD ASSISTANT AM EARLY CHILDHOOD ASSISTANT Ame Beal APRN, C.N.P., R.N. LAB BLOOD ADD-ON Performing Organization Address City/State/ZIP Code Phon e Number [facility] [address] [place], [place] [address] [place] [address] [place] [address] [facility] [address] [place] PSA (Prostate-Specific Antigen) Screen (09/17/2018 9:14 AM [...] Organization Address City/State/ZIP Code Phon e Number [facility] [place] [address] [place] [address] [facility] documented in this encounter Visit Diagnoses [...] of this encounter Care Teams Sales And Management Trainee Relationship Specialty Start Date End Date Norma Kenny APRN, C.N.P. PCP - General 09/12/[address] [place] [phone] documented as of this encounter
--- OUTSIDE RECORDS SUMMARY | 2022-01-29 04:15 | XMS_ITS | Encounter Summary ---
:1965 Author Organization [facility] Address [address] [place] [address] Care Team Providers Name Role Phone Norma Kenny APRN C.N.PNikhil Primary Care Provider [phone] Reason for Visit Physical Therapy (Routine) - Closed Specialty Diagnoses / Procedures Referred By Contact Refer red To Contact Diagnoses Pain Hip Right ar Ame Beal APRN, [facility] Region Procedures PT Evaluate and treat pt C.N.P., R.N. [address] [place] [address] 20 1 [place] [address] Referral ID Status Reason Start Date Expiration Date Visits Requ ested Visits Authorized [id number] Closed 04/30/2018 04/30/2019 1 1 Encounter Details Date Type Department Care Team Description 05/07/2018 Comprehensive Visit Department of Nohemi Beal i, APRN, C.N.P., R.N. 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 ITIES MANAGER documented in this encounter Plan of Treatment Upcoming Encounters Date Type Specialty Care Team Description 02/15/2022 Office Visit Orthopedic Surgery Madyson Rosa D.ONikhil [address] [place], [place] [phone] (Wo rk) documented as of this encounter Visit Diagnoses Diagnosis Pain Shoulder Left - Primary Pain Hip Right documented in this encounter Additional Health Concerns Assessment Noted Time PHQ-9 Depression Total Score: 4 07/11/2017 8:29 AM CDT documented as of this encounter Care Teams Astronomy Professor Relationship Specialty Start Date End Date Norma Kenny APRN, C.N.P. PCP - General 09/12/[address] [place] [address] documented as of this encounter
--- OUTSIDE RECORDS SUMMARY | 2022-01-29 04:16 | XMS_ITS | Encounter Summary ---
:1965 Author Organization [facility] Address [address] [place] [address] Care Team Providers Name Role Phone Unavailable Primary Care Provider Unavailable Encounter Details Date Type Department Care Team Description 07/25/2016 Hospital Encounter HX [facility] Nohemi Pablo i, STEVEN, C.N.P., R. N. 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 - 07/25/2016 2:17 PM CDT [id number] CHIEF COMPLAINT/REASON FOR VISIT Hip pain. HISTORY [...] APRN, C.N.P./pos Electronically Signed By: DEVORA BEAL BARK TANNER On: 08/12/2016 03:31 PM Modified by and Electronically Signed by: DEVORA BEAL BARK TANNER On: 08/12/2016 03:31 PM Source: [facility] MHSDOLBEYNONRADSYS Document Id: [id number] documented in this encounter Miscellaneous Notes Miscellaneous - Lakeisha aCssidy L.P.NNikhil - 11/11/2016 8:36 AM CDT [place] [...] Written: 12/21/2015 Last Office Visit: 09/27/2016 Pharmacy: [facility] Did they call their pharmacy first? YES ( x ) NO ( ) Call Back #: call back number above Is A Call Back Needed? YES ( ) NO ( x ) Can we leave a message at this #? YES ( x ) NO ( ) Comment(s): Source: [facility] POWERCHART Document Id: [id number] Miscellaneous - Devora Beal, STEVEN, C.NNikhilP. - 07/25/2016 3:05 PM CDT Ambulatory Patient Summary [address] [id number] Visit Information Name: SAAD MURRAY [facility] Number: [id number] Current Date: 07/25/2016 15:05:47 Physicians Attending Provider: DEVORA BEAL BARK TANNER Primary Care Provider: DANYEL SOLIS WORKFORCE MANAGEMENT ANALYST SAAD MURRAY has been given the following [...] spasm x 10 day(s) New Routed to [address] [address] lisinopril-hydroCHLOROthiazide (lisinopril-hydroCHLOROthiazide 20mg-25mg oral tablet) 1 Tablet(s), [...] of emergency. Electronically Signed By: DEVORA BEAL BARK TANNER Signed On:25-JUL-2016 15:05:43 Your Allergies & Intolerances Substance Reaction Symptoms Category Comments No Known Allergies Drug Your Problem List Problem Status Onset Comments HTN [Hypertension] Active GERD [Gastroesophageal reflux disease] Active Hyperlipidemia NOS Active Hyperglycemia Active Body mass index (BMI) 45.0-49.9, adult Active 03/15/16 Rule activated problem due to BMI 45-49 posted on 03/15 at 12:50 CERTIFIED PHARMACY TECHNICIAN. Your Upcoming Appointments Date Time Location Provider [...] if you dont have one. Go to [email or web address] and click on Create Your Account. Then, follow the directions to complete the online form. Youll be asked for your [facility] number which you can find at the top of this document. Your Goals/Additional instructions: Source: [facility] POWERCHART Document Id: [id number] Miscellaneous - Devora Beal APRN, C.N.P. - 07/25/2016 3:05 PM CDT Ambulatory Discharge Medication List [address] [place], [place] [id number] Visit Information Name: SAAD MURRAY [facility] Number: [id number] Current Date: 07/25/2016 15:05:47 Attending Provider: DEVORA BEAL BARK TANNER Primary Care Provider: DANYEL SOLIS CNP SAAD [...] spasm x 10 day(s) New Routed to [address] [address] lisinopril-hydroCHLOROthiazide (lisinopril-hydroCHLOROthiazide 20mg-25mg oral tablet) [...] of emergency. Electronically Signed By: DEVORA BEAL BARK TANNER Signed On:25-JUL-2016 15:05:43 Additional Information: Source: [facility] POWERCHART Document Id: [id number] Miscellaneous - Wilmer Lyons C.M.A. - 07/25/2016 2:22 PM CDT Adult Lighting Director Intake/History Adult Lighting Director Intake/History Entered On: 07/25/2016 14:26 CDT Performed On: 07/25/2016 14:22 CDT by WILMER LYONS IGNITION MECHANIC Intake Chief Complaint : Patient presents for [...] Mass Index : 45.05 kg/m2 WILMER LYONS [facility] - 07/25/2016 14:22 CDT General Info Information Given By : Patient Preferred Communication Mode : Verbal Languages : [place] Korean Is Patient Female and 13-50 no hysterectomy [...] Use/Last 12 months : No WILMER LYONS IGNITION MECHANIC - 07/25/2016 14:22 CDT Source: [facility] POWERCHART Document Id: [id number] documented in this encounter Plan of Treatment Upcoming Encounters Date Type Specialty Care Team Description 02/15/2022 Office Visit Orthopedic Surgery Madyson Rosa, D.ONikhil [address] [place], [place] [phone] (Wo rk) documented as of this encounter Visit Diagnoses Not on filedocumented in this encounter
--- OUTSIDE RECORDS SUMMARY | 2022-01-29 04:16 | XMS_ITS | Encounter Summary ---
:1965 Author Organization [facility] Address [address] [place] [address] Care Team Providers Name Role Phone Norma Kenny APRN C.N.P. Primary Care Provider [phone] Reason for Visit Reason Onset Date Comments Med Refill 06/09/2017 Encounter Details Date Type Department Care Team Description 06/09/2017 Clinical Communication Department of Chase Philippe Med Refill Medicine, Mcintosh STEVEN C.N.P. 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 [facility] in [place] o Have you contacted your pharmacy regarding this request? I will send this information to the appropriate staff member who will look into your concern. Is there anything else I can help you with today? Thank you for calling [facility]. documented in this encounter Plan of Treatment Upcoming Encounters Date Type Specialty Care Team Description 02/15/2022 Office Visit Orthopedic Surgery Madyson Rosa D.O. [address] [place], [place] [phone] (Wo rk) documented as of this encounter Visit Diagnoses Not on filedocumented in this encounter Care Teams Middleware Administrator Relationship Specialty Start Date End Date Norma Kenny APRN, C.N.P. PCP - General 09/12/[address] [place] [phone] documented as of this encounter
--- OUTSIDE RECORDS SUMMARY | 2022-01-29 04:16 | XMS_ITS | Encounter Summary ---
:1965 Author Organization [facility] Address [address] [place] [address] Care Team Providers Name Role Phone Norma Kenny APRN, C.N.P. Primary Care Provider [phone] Reason for Visit Reason Comments Follow-up back and shoulder Outpatient (Routine) - Closed Specialty Diagnoses / Procedures Referred By Contact Refer red To Contact Family Medicine Diagnoses Pain Shoulder Left Pain Thoracic Spine [facility] Ame Beal APRN, [facility] C.N.P., R.N. [address] [facility], [place] [address] [place] [address] Referral ID Status Reason Start Date Expiration Date Visits Requ ested Visits Authorized [id number] Closed 12/15/2017 12/15/2018 1 1 Encounter Details Date Type Department Care Team Description 12/22/2017 Office Visit Department of Ame Barnes Nee d Vaccine Immunization (Primary Dx); Medicine in [facility] STEVEN, C.N.P., Pain Should er Left; [place], [place] R.N. 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 PCP - General 09/12/[address] [place] [address] documented as of this encounter
--- OUTSIDE RECORDS SUMMARY | 2022-01-29 04:16 | XMS_ITS | Encounter Summary ---
:1965 Author Organization [facility] Address [address] [place] [address] Care Team Providers Name Role Phone Norma Kenny APRN, C.NGregg Primary Care Provider [phone] Reason for Visit Reason Comments Med Refill Atorvastatin Encounter Details Date Type Department Care Team Description 03/06/2017 Refill Department of Family Karina Randle M ed Refill (Atorvastatin Medicine in [facility] R.M.A ) [place] [address] [place] [phone] Social History Tobacco Use Types Packs/Day Years [...] How often do you attend sikhism or druze More than 4 time s [...] at Date Recorded Male 03/25/2018 1:[address] AGENT documented as of this encounter Miscellaneous Notes Telephone Encounter - Karina Randle R.M.A. - 03/06/2017 9:[address] Last refilled 12/05/16 #30 Last OV 09/27/16, 03/15/16 preop px Last Lipid 03/15/16 No Future appt T OF WAY AGENT documented in this encounter Plan of Treatment Upcoming Encounters Date Type Specialty Care Team Description 02/15/2022 Office Visit Orthopedic Surgery Madyson Rosa, D.ONikhil [address] [place], [place] [phone] (Wo rk) documented as of this encounter Visit Diagnoses Not on filedocumented in this encounter Care Teams Benefit Authorizer Relationship Specialty Start Date End Date Norma Kenny APRN, C.N.P. PCP - General 09/12/[address] [place] [phone] documented as of this encounter
--- OUTSIDE RECORDS SUMMARY | 2022-01-29 04:16 | XMS_ITS | Encounter Summary ---
:1965 Author Organization [facility] Address [address] [place] [address] Care Team Providers Name Role Phone Norma Kenny APRN, C.N.P. Primary Care Provider [phone] Reason for Visit Reason Comments Annual Exam fasting for labs Shoulder Pain left shoulder blade hurts on /off x 3 years, does not recall injury Encounter Details Date Type Department Care Team Description 07/11/2017 Comprehensive Visit Department of Efraín General Medical Examination Adult (Primary Dx); Family Medicine in Norma Rony, Hyperlipi demfarzana; Erik Booth APRN, C.N.P. Hypertension Essential Primary; [place] [address] Gastroesophageal Reflux Dise ase; [address] NE Morbid Obesity Body Mass Index 40.0-44.9 Adult (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) ??? Hypercholesterolemia ??? 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 Has [...] plan. Patient seen with Montse Sarkar RN, [employer] Residency Student. Norma Kenny APRN, C.N.P. - [...] 02/15/2022 Office Visit Orthopedic Surgery Madyson oRsa D.ONikhil [address] [facility] [place] [place] [address] (Wo rk) documented as [...] athologist Signature Hemoglobin 15.7 13.2 - 07/11/2017 [facility] 16.6 g/dL 11:30 AM T [facility] Hematocrit 46.7 38.3 - 07/11/2017 [facility] 48.6 % 11:30 AM CDT [facility] Erythrocytes 5.04 4.35 - 07/11/2017 [facility] 5.65 11:30 AM T [facility] x10(12)/L [facility] MCV 92.7 78.2 - 07/11/2017 [facility] 97.9 fL 11:30 AM T [facility] RBC Distrib Width 12.8 11.8 - 07/11/2017 [facility] 14.5 % 11:30 AM T [facility] Platelet Count 223 135 - 317 07/11/2017 [facility] x10(9)/L 11:30 AM CDT [facility] Leukocytes 7.8 3.4 - 9.6 07/11/2017 [facility] x10(9)/L 11:30 AM [facility] Specimen Anatomical Collection Method Collection Time Receive d Time (Source) Location / / Volume Laterality Blood 07/11/2017 9:34 AM 8 CDT 11:20 AM CDT Norma Kenny APRN, C.N.P. LAB BLOOD ADD-ON Performing Organization Address City/State/ZIP Code Phon e Number [facility] [address] [place] [address] [facility] (ABNORMAL) CMP (Comprehensive Metabolic Panel) (07/11/2017 9:34 AM CDT) athologist Signature Potassium, S 4.2 3.6 - 5.2 07/11/2017 [facility] mmol/L 2:16 PM [facility] Sodium, S 136 135 - 145 07/11/2017 [facility] mmol/L 2:16 PM [facility] [place] Chloride, S 94 (L) 98 - 107 07/11/2017 [facility] mmol/L 2:16 PM [facility] Bicarbonate, S 28 22 - 29 07/11/2017 [facility] mmol/L 2:16 PM [facility] Anion Gap 14 7 - 15 07/11/2017 [facility] 2:16 PM [facility] BUN (Blood Urea 20 8 - 24 07/11/2017 [facility] Nitrogen), S mg/dL 2:16 PM [facility] Creatinine 0.82 0.74 - 07/11/2017 [facility] 1.35 mg/dL 2:16 PM [facility] eGFR-Non >90 >=60 07/11/2017 [facility] Black/ mL/min/BSA 2:16 PM [facility] [place] [facility] Comment: ----ADDITIONAL INFORMATION---- Estimated GFR calculated using the 2009 CKD_EPI creatinine equation. eGFR-Black/ >90 >=60 mL/min/BSA 2017 2:16 PM [facility] [place] Comment: ----ADDITIONAL INFORMATION---- Estimated GFR calculated using the 2009 CKD_EPI creatinine equation. Calcium, Total, S 10.0 8.9 - 10.1 07/11/2017 2:16 PM [facility] mg/dL [facility] [place] Glucose, S 101 70 - 140 mg/dL 07/11/2017 2:16 PM [facility] [place] Protein, Total, S 7.6 6.3 - 7.9 g/dL 07/11/2017 2:16 P M [facility] [place] Albumin, S 4.8 3.5 - 5.0 g/dL 07/11/2017 2:16 PM [facility] Aspartate Aminotransferase 39 8 - 48 U/L 07/11/2017 2 :16 PM [facility] S [facility] Alkaline Phosphatase, S 67 45 - 115 U/L 07/11/2017 2: 16 PM [facility] Alanine Aminotransferase 47 7 - 55 U/L 07/11/2017 2:1 6 PM [facility] Bilirubin, Total, S 1.1 <=1.2 mg/dL 07/11/2017 2:53 PM [facility] Specimen Anatomical Collection Method Collection Time Receive d Time (Source) Location / / Volume Laterality Blood (Blood, 07/11/2017 9:34 AM 07/12/19 18 Venous) CDT 12:02 PM CDT Glory Adams APRNPNikhil LAB BLOOD ADD-ON Performing Organization Address City/State/ZIP Code Phon e Number [facility] [address] [place] [phone] [facility] (ABNORMAL) Lipid Panel (07/11/2017 9:34 AM CDT) athologist Signature Cholesterol, 214 (H) mg/dL 07/11/2017 [facility] Total 2:16 PM [facility] [place] [facility] Comment: ----REFERENCE VALUE---- Desirable: < 200 Borderline high: 200 - 239 High: > or = 240 Triglycerides 113 mg/dL 07/11/2017 2:16 PM CDT [facility] [place] Comment: ----REFERENCE VALUE---- Normal: <150 Borderline high: 150-199 High: 200-499 Very high: > or =500 Cholesterol, HDL, S 61 >=40 mg/dL 07/11/2017 2:16 PM CDT [facility] Calculated LDL 130 (H) mg/dL 07/11/2017 2:16 PM CDT [facility] Comment: ----REFERENCE VALUE---- Desirable: <100 Above Desirable: 100-129 Borderline high: 130-159 High: 160-189 Very high: > or =190 Cholesterol, Non-HDL, 153 mg/dL 07/11/2017 2:16 PM CDT [facility] Comment: ----REFERENCE VALUE---- Desirable: <130 Above Desirable: 130-159 Borderline high: 160-189 High: 190-219 Very high: > or =220 Specimen Anatomical Collection Method Collection Time Receive d Time (Source) Location / / Volume Laterality Blood (Blood, 07/11/2017 9:34 AM 07/12/19 18 Venous) CDT 12:02 PM CDT Norma Kenny APRN, C.N.P. LAB BLOOD ADD-ON Performing Organization Address City/State/ZIP Code Phon e Number [facility] [address] [place] [address] [facility] documented in this encounter Visit Diagnoses Diagnosis General Medical Examination Adult - Prim berenice Hyperlipidemia Hypertension Essential Primary Gastroesophageal Reflux Disease Morbid Obesity Body Mass Index 40.0-44.9 Adult (HCC) documented in this encounter Additional Health Concerns Assessment Noted Time PHQ-9 Depression Total Score: 4 07/11/2017 8:29 AM CDT documented as of this encounter Care Teams Entry Level Manufacturing Engineer Relationship Specialty Start Date End Date Norma Kenny APRN, C.N.P. PCP - General 09/12/[address] [place] [address] documented as of this encounter
--- OUTSIDE RECORDS SUMMARY | 2022-01-29 04:16 | XMS_ITS | Encounter Summary ---
:1965 Author Organization [facility] Address [address] [place] [address] Care Team Providers Name Role Phone Norma Kenny APRN, C.N.P. Primary Care Provider Reason for Visit Reason Onset Date Comments Communication 03/09/2018 NEW PT order Encounter Details Date Type Department Care Team Description 03/09/2018 Clinical Communication Department of Rony Kenny (NEW PT Family Medicine in [place]) Erik Booth APRN, C.N.P. [place] [address] [place], [place] [phone] [place] [phone] Social History Tobacco Use Types Packs/Day Years [...] How often do you attend alevism or catholic More than 4 time s [...] Date Recorded Male 03/25/2018 1:01 PM RN HOSPICE documented as of this encounter Miscellaneous Notes Telephone Encounter - Elba Retana - 03/10/2018 12:42 PM CST Please advise Chely Thank you HOSPICE Telephone Encounter - Medina Schmitt R.N. - 03/10/2018 12:41 PM RN HOSPICE The expiration on the order says 12/26/2020? I see that it was removed from the work queue, but it still shows in active requests. HOSPICE Telephone Encounter - Elba Retana - 03/10/2018 12:38 PM CST Jessica I talked to Chely in PT who schedules theses appointments. She said that the order is and needs a new order placed before she can schedule this appointment for him Thank you HOSPICE Telephone Encounter - Medina Schmitt RNikhilNNikhil - 03/10/2018 12:26 PM RN HOSPICE Spoke with [facility]. He states that the [...] 4000 mg/day. He was understanding of this. HOSPICE Telephone Encounter - Medina Schmitt R.N. - 03/09/2018 4:56 PM RN HOSPICE Left message to call back HOSPICE Telephone Encounter - Maicomirella Christie Reyes - [...] please call him, he has some questions. HOSPICE documented in this encounter Plan of Treatment Upcoming Encounters Date Type Specialty Care Team Description 02/15/2022 Office Visit Orthopedic Surgery Madyson Rosa, DNikhilONikhil [address] [place], [place] [phone] (Wo rk) documented as of this encounter Visit Diagnoses Not on filedocumented in this encounter Additional Health Concerns Assessment Noted Time PHQ-9 Depression Total Score: 4 07/11/2017 8:29 AM CDT documented as of this encounter Care Teams Canteen Attendant Relationship Specialty Start Date End Date Norma Kenny APRN, C.N.P. PCP - General 09/12/[address] [place] [phone] documented as of this encounter
--- OUTSIDE RECORDS SUMMARY | 2022-01-29 04:16 | XMS_ITS | Encounter Summary ---
:1965 Author Organization [facility] Address [address] [place] [address] Care Team Providers Name Role Phone Efraín Norma Salas APRN C.N.P. Primary Care Provider [phone] Encounter Details Date Type Department Care Team Description 01/13/2018 Clinical Communication [facility] in [facility], C.N.P.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 PCP - General 09/12/[address] [place] [phone] documented as of this encounter
--- OUTSIDE RECORDS SUMMARY | 2022-01-29 04:16 | XMS_ITS | Encounter Summary ---
:1965 Author Organization [facility] Address [address] [place] [address] Care Team Providers Name Role Phone Norma Solis APRN, C.NGregg Primary Care Provider [phone] Encounter Details Date Type Department Care Team Description 11/12/2016 Hospital Encounter HX [facility] ED Nathan Gabriel M.D. 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 The following includes patient education materials and information regarding your injury/illness. Diagnosis: Follow-Up Instructions: With: Address: When: NORMA SOLIS [address] [place] [address] Business (1) Within 5 - 7days Comments: [...] if any of the following occur: ?? [id number] change in the type of pain: if [...] pain or redness in one leg ?? [phone] [facility], [address] [place] [address], [place] [address]. All rights reserved. This information is not [...] you dont have one. Go to [email or web address] and click on Create Your Account. Then, follow the directions to complete the online form. Youll be asked for your [facility] number which you can find at [...] arrange a ride home with a responsible republican. LISETTE Levy TIMOTHY D , or responsible republican have received this information and my questions havebeen answered. I have discussed any challenges I see with this plan with the nurse or physician. Patient Signature or Responsible Libertarian/Relationship Date Time Provider Signature Date Time IMPORTANT: [...] arrange a ride home with a responsible republican. I, HENOKISAACSAAD Ruby , or responsible republican have received this information and my questions havebeen answered. I have discussed any challenges I see with this plan with the nurse or physician. Patient Signature or Responsible Libertarian/Relationship Date Time Provider Signature Date Time This document has images extracted. Please consider using One Touch EMR for all your patient education needs. Source: [facility] POWERCHART Document Id: [id number] Anderson Almendarez R.N. - 11/12/2016 5:51 PM CDT ED Depart Summary [facility] Emergency Department Clinical Discharge Summary PERSON INFORMATION Name SAAD MURRAY Age 50 Years 1965 12:00 AM Sex Male Language Zimbabwean PCP NORMA SOLIS CNP Marital Status Visit Id Visit Reason Chest pain; chest pain Specialty Enc Type Emergency Med Service Emergency Medicine Referred by Track Group [facility]rista ED Discharge 11/12/2016 12:10 PM Tracking Id [id number] Checkout 11/12/2016 12:10 PM Checkin 11/12/2016 8:56 AM Acuity 3 -Urgent Dispo Type * Discharged to Home or Self Care Arrival 11/12/2016 8:56 AM Reg Status LOS 000 03:14 Address: [address] [place] [address] [place] [address] Comment: PROVIDER INFORMATION Provider Role Provider Contact Time ANDERSON ALMENDAREZ RN ED Nurse 11/12/16 09:39 NATHAN GABRIEL MD ED Provider 11/12/16 09:43 DIAGNOSIS Comment: PATIENT EDUCATION INFORMATION Instructions: CHEST PAIN, Uncertain Cause Follow up: With: Address: When: NORMA SOLIS [address] [place] [address] [phone] ALCOHOOT (0) Within 5 - 7days Comments: CALL THE ER IF YOU HAVE ANY OTHER EPISODES OR ARE NOT FEELING WELL IN 96 HOURS (4 DAYS) Source: [facility] its learning Document Id: [id number] Anderson Almendarez R.N. - 11/12/2016 5:49 PM [...] ALMENDAREZ RN - 11/12/2016 17:49 CDT Source: [facility] [employer] learning Document Id: [id number] CDT!8 documented in this encounter Medications at [...] ALMENDAREZ RN - 11/12/2016 12:04 CDT Source: [employer] Document Id: [id number] CDT!13 Nathan Gabriel M.D. - 11/12/2016 11:57 [...] on 09/27/2016 at 50 years. 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 09/27/2016 CDT 11:31 CDT - SYSTEM, SYSTEM Rule resolved problem due to BMI 40-44 posted on 09/27 at 11:27 CDT. Diverticulosis NOS (K57.90): Resolved., Reviewed as documented in chart. Surgical history: Repair of umbilical hernia ([id number]) on 04/12/2016 at 50 Years. Echocardiogram ([id number]) on 01/27/2007 at 41 Years. Comments: 04/30/2012 16:03 - WILMER GAONA LPN normal Vasectomy ([id number]) on 03/05/2005 at 39 Years.. Family history: [...] NATHAN GABRIEL Confirmed By:BRYON GUERRERO MD . threat monitoring analyst:Normal sinus rhythm. Results review:Lab results : Lab View 11/12/2016 10:51 CDT Troponin-T <0.010 ng/mL 11/12/2016 9:16 CDT Hgb 14.1 g/dL Hct 41.4 % WBC 8.0 x10(9)/L RBC 4.44 x10(12)/L MCV 93.2 fL RDW 12.8 % Platelet 200 x10(9)/L Neutro Absolute 5.61 10(9)/L Lymph Absolute 1.62 x10(9)/L [place] Absolute 0.63 x10(9)/L Eos Absolute 0.13 x10(9)/L [...] (Electronic Signature): 11/12/2016 9:43 am Transcribed by: [facility] Technologist: BALJEET SAUNDERS RT(R)(C [id number] . Reexamination/ Reevaluation Pt stable during time [...] Time 11/12/2016 11:58:00, to home. Prescriptions: Prescription [facility]: ibuprofen 200 mg oral tablet (Prescribe): [...] GABRIEL MD On: 11/13/2016 09:34 AM Source: [facility] POWERCHART Document Id: [id number]} Anderson Almendarez R.N. - 11/12/2016 11:50 AM CDT ED Nurse Reassess ED Nurse Reassess Entered On: 11/12/2016 12:04 CDT Performed On: 11/12/2016 11:50 CDT by ANDERSON ALMENDAREZ RN Pain Assessment [...] Temperature : Warm Nail Bed Color : Faxon Capillary Refill : Less than 2 seconds [...] : Steady Facial Symmetry : Normal ANDERSON ALEMNDAREZ RN - 11/12/2016 12:02 CDT GI Reassess GI Patient Stated Symptoms : None ANDERSON ALMENDAREZ RN - 11/12/2016 12:02 CDT /OB Reassess Patient Stated Symptoms : None ANDERSON ALMENDAREZ RN - 11/12/2016 12:02 CDT Source: [employer] Document Id: [id number] CDT!42 Anderson Almendarez R.N. - 11/12/2016 11:15 [...] ALMENDAREZ RN - 11/12/2016 12:01 CDT Source: [employer] Document Id: [id number] CDT!7 Anderson Almendarez R.N. - 11/12/2016 10:35 [...] Temperature : Warm Nail Bed Color : Faxon ANDERSON ALMENDAREZ RN - 11/12/2016 10:35 CDT Source: [employer] Document Id: [id number] CDT!24 Anderson Almendarez R.N. - 11/12/2016 9:51 [...] Up to bathroom to void, tolerated well. threat monitoring analyst continues to show NSR. ANDERSON ALMENDAREZ RN - 11/12/2016 9:51 CDT Resp Reassess Respiratory Patient Stated Symptoms : None Distress : None Airway : Patent Respiratory Pattern : Regular Respirations : Unlabored Cough : None ADNERSON ALMENDAREZ RN - 11/12/2016 9:51 CDT CV Reassess CV Patient Stated Symptoms : None Skin Color : Normal for ethnicity Skin Description : Dry Skin Temperature : Warm Nail Bed Color : Faxon Heart Rhythm : Regular Monitoring Lead : II Cardiac Rhythm : Sinus rhythm ANDERSON ALMENDAREZ RN - 11/12/2016 9:51 CDT [facility] Document Id: [id number] CDT!24 Anderson Almendarez R.N. - 11/12/2016 9:32 AM CDT ED Nurse Reassess ED Nurse Reassess Entered On: 11/12/2016 9:38 CDT Performed On: 11/12/2016 9:32 CDT by ANDERSON ALMENDAREZ RN Pain Assessment Pain Symptoms : Yes Pain Medication Requested : No ANDERSON ALMENDAREZ RN - 11/12/2016 9:32 CDT Comfort Measures Comfort Measures Grid [place] Application : Yes Comfortable Environment : Yes [...] Temperature : Warm Nail Bed Color : Faxon Capillary Refill : Less than 2 seconds [...] Integrity : Intact Mucous Membrane Color : Faxon Mucous Membrane Description : Moist Skin Color : Normal for ethnicity Skin Description : Dry Skin Temperature : Warm ANDERSON ALMENDAREZ RN - 11/12/2016 9:32 CDT Musculoskeletal Reassess Standard Safety : Bed in low position, Call device within reach, ID band check ANDERSON ALMENDAREZ RN - 11/12/2016 9:32 CDT Source: [employer] Document Id: [id number] CDT!54 Anderson Almendarez R.N. - 11/12/2016 9:10 AM CDT ED Nurse Reassess ED Nurse Reassess Entered On: 11/12/2016 9:55 CDT Performed On: 11/12/2016 9:10 CDT by ANDERSON ALMENDAREZ RN Pain Assessment Pain Symptoms : Yes ANDERSON ALMENDAREZ RN - 11/12/2016 9:54 CDT Comfort Measures Comfort Measures Grid [place] Application : Yes Comfortable Environment : Yes Positioning : Yes Pressure Relief : Yes Quiet Environment : Yes Relaxation : Yes Rest : Yes ANDERSON ALMENDAREZ RN - 11/12/2016 9:54 CDT Patient Response : pt taken to Trauma bed one immediately. threat monitoring analyst applied, lab called, in for eval. Aspirin given. ANDERSON ALMENDAREZ RN - 11/12/2016 9:54 CDT Source: [employer] Document Id: [id number] CDT!13 Anderson Almendarez R.N. - 11/12/2016 9:04 [...] Medical ; Code: 530.81 ; Contributor System: [employer] ; Last Updated: 05/13/2012 15:34 INTERIOR PAINTER ; Life Cycle Date: 05/13/2012 ; Life Cycle Status: Active ; Responsible Provider: RUSS HILL MD; Vocabulary: ICD-9-CM HTN [Hypertension] (ICD-9-CM :401.9 ) Name of Problem: HTN [Hypertension] ; Recorder: CHAPIS HILL MD; Confirmation: Confirmed ; Classification: Medical ; Code: 401.9 ; Contributor System: Power[employer] ; Last Updated: 05/13/2012 15:34 INTERIOR PAINTER ; Life Cycle Date: 05/13/2012 ; Life [...] Medical ; Code: 272.4 ; Contributor System: [employer] ; Last Updated: 11/18/2013 12:50 CDT ; Life Cycle Status: Active ; Responsible Provider: RUSS HILL MD; Vocabulary: ICD-9-CM Diagnoses(Active) Chest pain Date: 11/12/2016 ; Diagnosis Type: Reason For Visit ; Confirmation: Complaint of ; Clinical Dx: Chest pain ; Classification: Medical ; Clinical Service: Emergency medicine ; Code: PNED ; Probability: 0 ; Diagnosis Code: [id number] Triage Chief Complaint Description : pt presents [...] Private vehicle Track : Medical Languages : Zimbabwean Vital Signs Assessed : Yes Treatments Prior [...] Yes Monitoring Lead : II Monitoring Lead Field Engineer : Initiated ANDERSON ALMENDAREZ RN - 11/12/2016 9:04 CDT CV Detailed CV Patient Stated Symptoms : Chest pain Nail Bed Color : Faxon Capillary Refill : Less than 2 seconds [...] ALMENDAREZ RN - 11/12/2016 9:04 CDT Source: [facility] POWERCHART Document Id: [id number] CDT!3 documented in this encounter Miscellaneous Notes Miscellaneous - Anderson Almendarez R.N. - 11/12/2016 5:50 PM CDT Valuables/Belongings Valuables/Belongings Entered On: 11/12/2016 17:50 CDT Performed On: 11/12/2016 17:50 CDT by ANDERSON ALMENDAREZ RN Valuables/Belongings Valuables/Belongings Grid Valuables with Patient Clothes, Patient Valuables : Pants, Shirt, Shoes, Undergarments Electronic Devices : Cell phone ANDERSON ALMENDAREZ RN - 11/12/2016 17:50 CDT Source: [employer] Document Id: [id number] CDT!6 Miscellaneous - Conversion, Historical Provider Ser - 11/12/2016 12:10 PM CDT Coding Summary-Paper Based CODING DATE: 11/21/2016 FINAL [facility] STATUS: * Discharged to Home or Self Care PAYOR: [facility] ADMIT DX: R07.89 Other chest pain [...] LECHUGA Date Saved: 11/21/2016 10:18 am Source: [employer] Document Id: [id number] documented in this encounter Plan of Treatment Upcoming Encounters Date Type Specialty Care Team Description 02/15/2022 Office Visit Orthopedic Surgery Madyson Rosa, D.O. [address] [place], [place] [phone] (Wo rk) documented as [...] value. Biotin has been identified by [facility] ct[facility] as a potential interfering substance. Higher [...] Laterality Blood 11/12/2016 10:51 AM CDT Nathan Garbiel M.D. LAB BLOOD ADD-ON Performing Organization Address [...] X109L Erythrocytes 4.44 4.32 - POWERCHART 5.72 N3862M Hemoglobin 14.1 13.5 - POWERCHART 17.5 GDL [...] M.D. LAB BLOOD ADD-ON Performing Organization Address City/[facility]/ZIP Code Phon e Number POWERCHART POWERCHART NA [...] M.D. LAB BLOOD ADD-ON Performing Organization Address City/[facility] Code Phon e Number POWERCHART POWERCHART NA [...] M.D. LAB BLOOD ADD-ON Performing Organization Address City/[facility] Phon e Number POWERCHART POWERCHART NA Hepatic Function Panel (11/12/2016 9:16 AM CDT) [facility] Method Time Signature Alanine 50 7 - [...] M.D. LAB BLOOD ADD-ON Performing Organization Address City/[facility] Code Phon e Number POWERCHART POWERCHART NA [...] MLMINSA eGFR >60.0 >=60.0 POWERCHART Black/ MLMINSA Mongolian Glucose 135 70 - 140 POWERCHART MGDL [...] / Volume Laterality 11/12/2016 9:07 AM CDT [facility] - 11/12/2016 9:07 AM CDT [...] Organization Address City/State/ZIP Code Phon e Number [facility] [address] [place] [id number] documented in this encounter Visit Diagnoses Not on filedocumented in this encounter Care Teams Acute Dialysis Nurse Relationship Specialty Start Date End Date Norma Solis, MACHINE CAGE MAKER, C.N.P. PCP - General 09/12/[address] [place] [address] documented as of this encounter
--- OUTSIDE RECORDS SUMMARY | 2022-01-29 04:16 | XMS_ITS | Encounter Summary ---
:1965 Author Organization [facility] Address [address] [place] [address] Care Team Providers Name Role Phone Norma Kenny APRN, C.N.P. 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 documented as of this encounter Last Filed Vital Signs Vital Sign Reading Time Taken Comments Blood Pressure 144/91 03/08/2017 1:20 PM CLIENT ACCOUNT ASSISTANT Pulse 104 03/08/2017 1:20 PM CLIENT ACCOUNT ASSISTANT Temperature 37.7 ??C (99.9 ??F) 03/08/2017 12:33 PM CLIENT ACCOUNT ASSISTANT Respiratory Rate 20 03/08/2017 1:20 PM CLIENT ACCOUNT ASSISTANT Oxygen Saturation 99% 03/08/2017 12:33 PM CLIENT ACCOUNT ASSISTANT Inhaled Oxygen Concentration - - Weight 145 kg (320 lb) 03/08/2017 12:34 PM CLIENT ACCOUNT ASSISTANT Height 185.4 cm (6' 1) 03/08/2017 12:34 PM CLIENT ACCOUNT ASSISTANT Body Mass Index 42.22 03/08/2017 12:34 PM CLIENT ACCOUNT ASSISTANT documented in this encounter Discharge Instructions Discharge [...] regular provider in 3-5 days if needed. NT ACCOUNT ASSISTANT documented in this encounter Medications at Time [...] Peroneal Right Sebas Wesley M.D. 03/08/17 1405 NT ACCOUNT ASSISTANT documented in this encounter Plan of Treatment Upcoming Encounters Date Type Specialty Care Team Description 02/15/2022 Office Visit Orthopedic Surgery Madyson Rosa D.ONikhil [address] [place], [place] [phone] (Wo rk) documented as of this encounter Visit Diagnoses Diagnosis Neuropathy Peroneal Right - Primary documented in this encounter Care Teams Metal Fitter Relationship Specialty Start Date End Date Norma Kenny APRN, C.N.P. PCP - General 09/12/[address] [place] [address] documented as of this encounter
--- OUTSIDE RECORDS SUMMARY | 2022-01-29 04:16 | XMS_ITS | Encounter Summary ---
:1965 Author Organization [facility] Address [address] [place] [address] Care Team Providers Name Role Phone Norma Kenny APRN C.N.P. Primary Care Provider [phone] Encounter Details Date Type Department Care Team Description 12/22/2017 Hospital Encounter Department of Radiology, [place] STEVEN, C.N. P., R.N. 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 [address] [place], [place] [phone] (Wo rk) documented as [...] as of this encounter Care Teams Rotary Saw Operator Relationship Specialty Start Date End Date Norma Kenny APRN, C.N.P. PCP - General 09/12/[address] [place] [address] documented as of this encounter
--- OUTSIDE RECORDS SUMMARY | 2022-01-29 04:16 | XMS_ITS | Encounter Summary ---
:1965 Author Organization [facility] Address [address] [place] [address] Care Team Providers Name Role Phone Unavailable Primary Care Provider Unavailable Encounter Details Date Type Department Care Team Description 04/23/2016 Hospital Encounter [facility] Jaziel Dao M.D. 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 - 04/23/2016 8:21 AM CST [id number] He is a 50-year-old male who we [...] DAO MD On: 04/25/2016 06:02 PM Source: [facility] MHSDOLBEYNONRADSYS Document Id: [id number] EAR PLANT TECHNICAL ADVISOR documented in this encounter Miscellaneous Notes Miscellaneous - Jeannette Gleason, SvetaP.N. - 04/25/2016 2:11 PM CST Health Maintenance Reminder April 25, 2016 SAAD MURRAY [address] [facility] [address] Dear SAAD MURRAY, At your last visit [...] pressure. You may contact our clinic at [phone] and request a nurse only appointment to [...] 2016 This document has images extracted. Source: [facility] POWERCHART Document Id: [id number] Electronically signed by Conversion, [facility] Batchmaker [id number] at 09/10/2016 3:21 AM CDT Miscellaneous - Lakeisha Dao M.D. - 04/23/2016 8:57 AM CST Ambulatory Patient Summary [place] [facility] [address] [id number] Visit Information Name: SAAD MURRAY [facility] Number: [id number] Current Date: 04/23/2016 08:57:00 [...] BMI 45-49 posted on 03/15 at 12:50 NUCLEAR PLANT TECHNICAL ADVISOR. Your Upcoming Appointments Date Time Location Provider [...] if you dont have one. Go to [email or web address] and click on Create Your Account. Then, follow the directions to complete the online form. Youll be asked for your [facility] number which you can find at the top of this document. Your Goals/Additional instructions: Source: [facility] POWERCHART Document Id: [id number] EAR PLANT TECHNICAL ADVISOR Miscellaneous - Lakeisha Dao M.D. - 04/23/2016 8:57 AM CST Ambulatory Discharge Medication List [place] [facility] [address] [place], [place] [phone] Visit Information Name: SAAD MURRAY [facility] Number: [id number] Current Date: 04/23/2016 08:57:00 [...] MD Signed On:23-APR-2016 08:56:14 Additional Information: Source: [facility] POWERCHART Document Id: [id number] EAR PLANT TECHNICAL ADVISOR Miscellaneous - Cyn Scott RNikhilNNikhil - 04/23/2016 8:25 AM CST Adult [place] Intake/History Adult [place] Intake/History Entered On: 04/23/2016 8:26 NUCLEAR PLANT TECHNICAL ADVISOR Performed On: 04/23/2016 8:25 NUCLEAR PLANT TECHNICAL ADVISOR by YCN SCOTT curriculum and instruction director Chief Complaint : umb hernia repair Peripheral Pulse Rate : 84 /min Respiratory Rate : 18 /min Systolic Blood Pressure : 145 mmHg (HI) Diastolic Blood Pressure : 86 mmHg NIBP Mean : 106 mmHg Height : 185 cm(Converted to: 6 ft 1 inch(es), 73 inch(es)) CYN SCOTT RN - 04/23/2016 8:25 NUCLEAR PLANT TECHNICAL ADVISOR General Info Information Given By : Patient Languages : Maori Is Patient Female and 13-50 no hysterectomy : No CYN SCOTT RN - 04/23/2016 8:25 NUCLEAR PLANT TECHNICAL ADVISOR Subjective Pain Symptoms : Yes CYN SCOTT RN - 04/23/2016 8:25 NUCLEAR PLANT TECHNICAL ADVISOR Pain Scale Pain Scale Verbal 0-10 : Open CYN SCOTT RN - 04/23/2016 8:25 NUCLEAR PLANT TECHNICAL ADVISOR Pain Pain Assessment Grid Pain 1 Location : Abdomen Laterality : Right Intensity : 3 CYN SCOTT RN - 04/23/2016 8:25 NUCLEAR PLANT TECHNICAL ADVISOR Dependent Habits Exposure to Tobacco Smoke : Other: former smoker Smoking Status : Former smoker Tobacco 2A : Yes Tobacco Use/Currently Using : No Tobacco Use/Last 30 Days : No Tobacco Use/Last 12 months : No CYN SCOTT RN - 04/23/2016 8:25 NUCLEAR PLANT TECHNICAL ADVISOR Source: [facility] POWERCHART Document Id: [id number] NUCLEAR PLANT TECHNICAL ADVISOR!30 EAR PLANT TECHNICAL ADVISOR documented in this encounter Plan of Treatment Upcoming Encounters Date Type Specialty Care Team Description 02/15/2022 Office Visit Orthopedic Surgery Madyson Rosa, DaydayONikhil [address] [place], [place] [phone] (Wo rk) documented as of this encounter Visit Diagnoses Not on filedocumented in this encounter
--- OUTSIDE RECORDS SUMMARY | 2022-01-29 04:16 | XMS_ITS | Encounter Summary ---
:1965 Author Organization [facility] Address [address] [place] [address] Care Team Providers Name Role Phone Norma Kenny APRN CNikhilNNikhilPNikhil Primary Care Provider [phone] Reason for Visit Reason Comments Med Refill Encounter Details Date Type Department Care Team Description 05/12/2017 Refill Department of Family Medicine May Hernández, RNikhilNNikhil Med Refill in [facility] [address] [place] [phone] Social History Tobacco Use Types Packs/Day Years [...] How often do you attend muslim or catholic More than 4 time s [...] at Date Recorded Male 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 - 05/12/2017 12:12 PM CST Last ov;09/27/2016 Last Bp(03/08/17)=144/91 AGE THERAPIST documented in this encounter Plan of Treatment Upcoming Encounters Date Type Specialty Care Team Description 02/15/2022 Office Visit Orthopedic Surgery Madyson Rosa, D.ONikhil [address] [place], [place] [phone] (Wo rk) documented as of this encounter Visit Diagnoses Not on filedocumented in this encounter Care Teams Tariff Clerk Relationship Specialty Start Date End Date Norma Kenny APRN, C.N.P. PCP - General 09/12/[address] [place] [phone] documented as of this encounter
--- OUTSIDE RECORDS SUMMARY | 2022-01-29 04:16 | XMS_ITS | Encounter Summary ---
:1965 Author Organization [facility] Address [address] [place] [address] Care Team Providers Name Role Phone Norma Kenny APRN, C.NNikhilP. 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 Thank you for calling [facility] [place] [facility]. documented in this encounter Plan of Treatment Upcoming Encounters Date Type Specialty Care Team Description 02/15/2022 Office Visit Orthopedic Surgery Madyson Rosa D.O. [address] [place], [place] [phone] (Wo rk) documented as of this encounter Visit Diagnoses Not on filedocumented in this encounter Additional Health Concerns Assessment Noted Time PHQ-9 Depression Total Score: 4 07/11/2017 8:29 AM CDT documented as of this encounter Care Teams Robotics Systems Engineer Relationship Specialty Start Date End Date Norma Kenny APRN, C.N.P. PCP - General 09/12/[address] [facility] [place] [address] documented as of this encounter
--- OUTSIDE RECORDS SUMMARY | 2022-01-29 04:16 | XMS_ITS | Encounter Summary ---
:1965 Author Organization [facility] Address [address] [place] [address] Care Team Providers Name Role Phone Norma Kenny APRN, C.N.P. Primary Care Provider [phone] Encounter Details Date Type Department Care Team Description 12/26/2017 Orders Only Department of Family Ame Beal Pai n Thoracic Spine (Primary Dx); Medicine in [facility] STEVEN, C.N.P., Pain Should er Left [place], [place] R.N. 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 documented as of this encounter Plan of Treatment Upcoming Encounters Date Type Specialty Care Team Description 02/15/2022 Office Visit Orthopedic Surgery Madyson Rosa D.ONikhil [address] [place], [place] [phone] (Wo rk) documented as of this encounter Visit Diagnoses Diagnosis Pain Thoracic Spine - Primary Pain Shoulder Left documented in this encounter Additional Health Concerns Assessment Noted Time PHQ-9 Depression Total Score: 4 07/11/2017 8:29 AM CDT documented as of this encounter Care Teams Desktop Publishing Specialist Relationship Specialty Start Date End Date Norma Kenny, STEVEN, C.N.P. PCP - General 09/12/[address] [place] [address] documented as of this encounter
--- OUTSIDE RECORDS SUMMARY | 2022-01-29 04:16 | XMS_ITS | Encounter Summary ---
:1965 Author Organization [facility] Address [address] [place] [address] Care Team Providers Name Role Phone Norma Kenny APRN, C.N.P. Primary Care Provider Encounter Details Date Type Department Care Team Description 09/27/2016 Hospital Encounter HX [facility] Christi Pulido M.D. 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 PCP - General 09/12/[address] [place] [phone] documented as of this encounter
--- OUTSIDE RECORDS SUMMARY | 2022-01-29 04:16 | XMS_ITS | Encounter Summary ---
:1965 Author Organization [facility] Address [address] [place] [address] Care Team Providers Name Role Phone Norma Kenny APRN C.N.P. Primary Care Provider [phone] Reason for Referral Outpatient (Routine) - Closed Specialty Diagnoses / Procedures Referred By Contact Refer red To Contact Family Medicine Diagnoses Pain Shoulder Left Pain Thoracic Spine FAM EST LONG [facility] C.N.P., R.N. [address] [facility], [facility] [address] [place] [address] Referral ID Status Reason Start Date Expiration Date Visits Requ ested Visits Authorized [id number] Closed 12/15/2017 12/15/2018 1 1 Reason for Visit Reason Comments Shoulder Pain Appointment Request (Routine) - Closed Specialty Diagnoses / Procedures Referred By Contact Refer red To Contact Family Medicine Referral ID Status Reason Start Date Expiration Date Visits Requ ested Visits Authorized [id number] Closed 12/15/2017 12/15/2018 1 1 Encounter Details Date Type Department Care Team Description 12/15/2017 Office Visit Department of Ame Barnes Pai n Shoulder Left (Primary Dx); Medicine in [facility] STEVEN, C.N.P., Pain Thorac ic Spine [place], [place] R.N. 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 PCP - General 09/12/[address] [place] [phone] documented as of this encounter
--- OUTSIDE RECORDS SUMMARY | 2022-01-29 04:16 | XMS_ITS | Encounter Summary ---
:1965 Author Organization [facility] Address [address] [place] [address] Care Team Providers Name Role Phone Norma Kenny APRN, C.N.P. Primary Care Provider [phone] Reason for Referral MRI/CAT/PET Scan (Routine) - Closed Specialty Diagnoses / Procedures Referred By Contact Refer red To Contact Radiology Diagnoses Pain Shoulder Left RAD MR SHOULDER Ame Beal APRN, [facility] Procedures MR Shoulder Left without IV Contrast [place] MRI UPR EXT JOINT WO CNTRST HC MRI UPR EXT JOINT WO CNTRST C.N.P., R.N. [address] [facility], [place] [address] [place] [address] Referral ID Status Reason Start Date Expiration Date Visits Requ ested Visits Authorized [id number] Closed 03/13/2018 03/13/2019 1 1 ATION CONSULTANT Reason for Visit MRI/CAT/PET Scan (Routine) - Closed Specialty Diagnoses / Procedures Referred By Contact Refer red To Contact Radiology Diagnoses Pain Shoulder Left RAD MR SHOULDER Ame Beal APRN, [facility] Procedures MR Shoulder Left without IV Contrast [place] MRI UPR EXT JOINT WO CNTRST HC MRI UPR EXT JOINT WO CNTRST C.N.P., R.N. [address] , [place] [address] [place] [address] Referral ID Status Reason Start Date Expiration Date Visits Requ ested Visits Authorized [id number] Closed 03/13/2018 03/13/2019 1 1 Encounter Details Date Type Department Care Team Description 03/16/2018 Hospital Encounter Department of Ame Beal Left Radiology in [place], [place] C.N.P., R.N. [address], [facility] [phone] [place], [place] [phone] Social History Tobacco Use Types Packs/Day Years [...] How often do you attend judaism or church More than 4 time s [...] at Date Recorded Male 03/25/2018 1:01 PM LACTATION CONSULTANT documented as of this encounter Medications [...] Visit Orthopedic Surgery Madyson Rosa, D.O. [address] [place] [phone] (Wo rk) documented as of this encounter Procedures Procedure Name Priority Date/Time Associated Comments Diagnosis MR SHOULDER LEFT RAD - Routine 03/20/2018 8:32 Pain Shoulder Result s for this WITHOUT IV (most inpatients AM LACTATION CONSULTANT Left procedure a re in CONTRAST and all the results outpatients) section. documented in this encounter Results MR Shoulder Left without IV Contrast (03/20/2018 8:32 AM LACTATION CONSULTANT) Anatomical Region Laterality Modality Upper Extremity, Shoulder, Musculoskeletal RST LOS, Left Magnetic Resonance Musculoskeletal ARZ LOS, Muskuloskeletal FLA LOS Specimen (Source) Anatomical Collection Method Collection Time Re ceived Time Location / / Volume Laterality 03/20/2018 9:12 AM LACTATION CONSULTANT Impressions 03/20/2018 9:37 AM LACTATION CONSULTANT IMPRESSION: Small tear of the distal supraspinatus t endon. Is difficult to determine if this is a complete or partial thickness tear. Mild biceps tendinosis. Labral tear. Ganglion cyst in the spinoglenoid notch may impinge upon the suprascapular nerve. Narrative 03/20/2018 9:37 AM LACTATION CONSULTANT EXAM: MR SHOULDER LEFT WITHOUT IV CONTRAST [...] documented as of this encounter Care Teams Preschool Teacher Aide Relationship Specialty Start Date End Date Norma Kenny APRN, C.N.P. PCP - General 09/12/[address] [place] [phone] documented as of this encounter
--- OUTSIDE RECORDS SUMMARY | 2022-01-29 04:16 | XMS_ITS | Encounter Summary ---
:1965 Author Organization [facility] Address [address] [place] [address] Care Team Providers Name Role Phone Norma Kenny APRN, C.N.P. Primary Care Provider [phone] Reason for Referral Outpatient (Routine) - Closed Specialty Diagnoses / Procedures Referred By Contact Refer red To Contact Orthopedic Surgery Diagnoses Pain Shoulder Left Ame Beal APRN, [facility] C.N.P., R.N. [address] [place] [address] [place] [address] Referral ID Status Reason Start Date Expiration Date Visits Requ ested Visits Authorized [id number] Closed 03/13/2018 03/13/2019 1 1 SHOVEL OPERATOR MRI/CAT/PET Scan (Routine) - Closed Specialty Diagnoses / Procedures Referred By Contact Refer red To Contact Radiology Diagnoses Pain Shoulder Left RAD MR SHOULDER Ame Beal APRN, [facility] Region Procedures MR Shoulder Left without IV Contrast [place] MRI UPR EXT JOINT WO CNTRST HC MRI UPR EXT JOINT WO CNTRST C.N.P., R.N. [address] [place] [address] [place] [address] Referral ID Status Reason Start Date Expiration Date Visits Requ ested Visits Authorized [id number] Closed 03/13/2018 03/13/2019 1 1 SHOVEL OPERATOR Reason for Visit Reason Comments Arm Pain started in the fall, schedul ed for PT in March, symptoms have worsened in the past 2 weeks Appointment Request (Routine) - Closed Specialty Diagnoses / Procedures Referred By Contact Refer red To Contact Family Medicine Referral ID Status Reason Start Date Expiration Date Visits Requ ested Visits Authorized [id number] Closed 03/13/2018 03/13/2019 1 1 Encounter Details Date Type Department Care Team Description 03/13/2018 Office Visit Department of Family Ame Beal Pai n Shoulder Left (Primary Dx); Medicine in [facility] Nic HARRIS, Pain Hip Ri [place], [place] R.N. [address], [place] [phone] [place] [address] [phone] Social History Tobacco Use Types Packs/Day Years [...] How often do you attend mormonism or methodist More than 4 time s [...] at Date Recorded Male 03/25/2018 1:01 PM CLAM SHOVEL OPERATOR documented as of this encounter Last Filed Vital Signs Vital Sign Reading Time Taken Comments Blood Pressure 140/78 03/13/2018 1:29 PM CLAM SHOVEL OPERATOR Pulse 90 03/13/2018 1:29 PM CLAM SHOVEL OPERATOR Temperature 37.3 ??C (99.1 ??F) 03/13/2018 1:29 PM CLAM SHOVEL OPERATOR Respiratory Rate - - Oxygen Saturation 99% 03/13/2018 1:29 PM CLAM SHOVEL OPERATOR Inhaled Oxygen Concentration - - Weight 133 kg (292 lb 11.2 oz) 03/13/2018 1:29 PM CLAM SHOVEL OPERATOR Height - - Body Mass Index 39.22 12/15/2017 1:22 PM CDT documented in this encounter Patient Instructions Patient InstructionsCulvAme larson APRN, C.N.P. - 03/13/2018 1:45 PM CLAM SHOVEL OPERATOR Call [phone] Extension [address] [place]. MRI Friday 03/16 Check-in 2:30pm at hospital. SHOVEL OPERATOR documented in this encounter Progress Notes Ame [...] Lifting includes arm curls and bench presses [id number] lb bar. No overhead movements. Has noticed [...] Musculoskeletal: Normal gait and posture. Strong equal regrinder strength. Full active range of motion ofright [...] patient. He was given 3 days of Obion. Discussed use of Obion with Tylenol and to avoid overdose. Reminded to avoid driving, working, or mixing Obion with other substances causing sedation such as alcohol. He will call Friday if he needs a refill. [facility] ideally to get in next Friday or Friday. Encouraged patient to ask for [place] if none available in [place] next week. Follow-up as needed in the [...] pain extending from the right groin about assisted down the right medial thigh. This has [...] stated understanding and agreement with current plan. SHOVEL OPERATOR documented in this encounter Plan of Treatment Upcoming Encounters Date Type Specialty Care Team Description 02/15/2022 Office Visit Orthopedic Surgery Madyson Rosa D.ONikhil [address] [place] [phone] (Wo rk) Scheduled Referrals Name Type Priority Associated Order Schedule Diagnoses Orthopedic Surgery - Outpatient Referral Routine Pain Shoulder Left Expected: Sports non surgical 03/13/20 18 consult (clinic) (Approximat e), Expires: 03/13/2021 documented as of this encounter Results MR Shoulder Left without IV Contrast (03/20/2018 8:32 AM CLAM SHOVEL OPERATOR) Anatomical Region Laterality Modality Upper Extremity, Shoulder, Musculoskeletal RST LOS, Left Magnetic Resonance Musculoskeletal ARZ LOS, Muskuloskeletal FLA LOS Specimen (Source) Anatomical Collection Method Collection Time Re ceived Time Location / / Volume Laterality 03/20/2018 9:12 AM CLAM SHOVEL OPERATOR Impressions 03/20/2018 9:37 AM CLAM SHOVEL OPERATOR IMPRESSION: Small tear of the distal supraspinatus t endon. Is difficult to determine if this is a complete or partial thickness tear. Mild biceps tendinosis. Labral tear. Ganglion cyst in the spinoglenoid notch may impinge upon the suprascapular nerve. Narrative 03/20/2018 9:37 AM CLAM SHOVEL OPERATOR EXAM: MR SHOULDER LEFT WITHOUT IV CONTRAST [...] as of this encounter Care Teams Software Engineer Sales Relationship Specialty Start Date End Date Norma Kenny APRN, C.N.P. PCP - General 09/12/[address] [place] [phone] documented as of this encounter
--- OUTSIDE RECORDS SUMMARY | 2022-01-29 04:16 | XMS_ITS | Encounter Summary ---
:1965 Author Organization [facility] Address [address] [place] [address] Care Team Providers Name Role Phone Norma Kenny APRN CNikhilNNikhilPNikhil Primary Care Provider Reason for Visit Reason Comments Hypertension BP check Encounter Details Date Type Department Care Team Description 08/18/2017 Nurse Only Department of Family Aliya Cortez H ypertension (BP check) Medicine in [place], [place] [phone] [address] [facility] (Work[facility] [place] [phone] Social History Tobacco Use Types Packs/Day Years [...] How often do you attend quaker or baptism More than 4 time s [...] Date Recorded Male 03/25/2018 1:01 PM 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 PCP - General 09/12/[address] [place] [phone] documented as of this encounter
--- OUTSIDE RECORDS SUMMARY | 2022-01-29 04:16 | XMS_ITS | Encounter Summary ---
:1965 Author Organization [facility] Address [address] [place] [address] Care Team Providers Name Role Phone Unavailable Primary Care Provider Unavailable Encounter Details Date Type Department Care Team Description 04/12/2016 Hospital Encounter HX [facility] MAQN SDS Lakeisha Olvera M.D. Social History [...] How often do you attend restorationist or congregational More than 4 time s [...] at Date Recorded Male 03/25/2018 1:01 PM BLENDER LABORER documented as of this encounter Last Filed Vital Signs Vital Sign Reading Time Taken Comments Blood Pressure 132/73 04/12/2016 3:53 PM BLENDER LABORER Pulse 82 04/12/2016 3:53 PM BLENDER LABORER Temperature - - Respiratory Rate 16 04/12/2016 3:53 PM BLENDER LABORER Oxygen Saturation - - Inhaled Oxygen Concentration - - Weight 155 kg (341 lb 4.4 oz) 04/12/2016 10:34 AM BLENDER LABORER Height 185 cm (6' 0.84) 04/12/2016 3:53 PM BLENDER LABORER Body Mass Index 45.23 04/12/2016 10:34 AM BLENDER LABORER documented in this encounter Discharge Summaries Lakeisha Figueroa R.N. - 04/12/2016 4:01 PM CST Hospital Discharge Instructions [facility] [address] [place] [address] Patient Discharge Instructions Name: SAAD MURRAY Current Date: 04/12/2016 16:01:38 : 1965 12:00 AM [facility] Number: [id number] Patient Address: [address] [place], [place] [id number] Patient Primary Care Provider: Name: DANYEL SOLIS CNP Discharge Diagnosis: [facility] in [place] would like to thank you for allowing us to assist you with your healthcare needs. The following includes patient education materials and information regarding your injury/illness. Comment: HERBIEADRIENNE SAAD Jarad has been given the following list of follow-up instructions, medication list, and patient education materials: Follow-up Instructions With: Address: When: LAKEISHA OLVERA [address] [place] [address] 04/23/2016 8:30 AM Comments: Call Dr. Olvera for futher questions or concerns regarding your surgery. His cell number is [phone]. For other questions contact your primary Dr. [...] Date Time Location Provider 04/23/2016 08:30 [facility] Lori Wade [place], Lakeisha Bonner Consider Using [...] if you dont have one. Go to [email or web address] and click on Create Your Account. Then, follow the directions to complete the online form. Youll be asked for your [facility] number which you can find at [...] Dont mow the lawn, use a vacuum light cleaner, or do other strenuous activities until [...] higher Trouble urinating Nausea or vomiting ?? [phone] [place] [address]. All rights reserved. This information is not intended as a substitute for professional medical care. Always follow your healthcare professional's instructions. Source: [facility] POWERCHART Document Id: [id number] DER LABORER Lakeisha Figueroa R.N. - 04/12/2016 4:01 PM CST Hospital Discharge Medication List [address] [address] Discharge Medication List Name: SAAD MURRAY Current Date: 04/12/2016 16:01:37 : 1965 12:00 AM [facility] Number: [id number] Patient Address: [address] [place] [address] Patient Primary Care Provider: Name: DANYEL SOLIS CNP Discharge Diagnosis: [facility] in [place] would like to thank you for allowing [...] Comment: Electronically Signed By: Signed On: Source: [facility] POWERCHART Document Id: [id number] DER LABORER Lakeisha Figueroa R.N. - 04/12/2016 3:54 PM CST Discharge Summary Discharge Summary Entered On: 04/12/2016 16:01 BLENDER LABORER Performed On: 04/12/2016 15:54 BLENDER LABORER by LAKEISHA FIGUEROA RN, DC Information Discharged to : Home with family care Current Home Treatments : None Home Equipment : None Professional Skilled Services : None Special Services and Community Resources : None Mode of Discharge : Ambulatory Discharge Transportation : Private vehicle Accompanied By : Nurse, Family Date/Time of Discharge : 04/12/2016 15:54 BLENDER LABORER LAKEISHA FIGUEROA RN - 04/12/2016 15:55 BLENDER LABORER Valuables/Belongings Valuables/Belongings Grid Valuables at Bedside Clothes, Patient Valuables : Jacket, Pants, Shirt, Shoes, Undergarments Electronic Devices : Cell phone Jewelry : None Monetary Items : Wallet Personal Devices : Glasses LAKEISHA FIGUEROA RN - 04/12/2016 15:55 BLENDER LABORER Room Orientation/Facility Policy Reviewed : Yes Belongings Sent Home With : pt and family Home Medication Disposition : None brought in with patient LAKEISHA FIGUEROA RN - 04/12/2016 15:55 BLENDER LABORER Source: [facility] POWERCHART Document Id: [id number] BLENDER LABORER!22 DER LABORER documented in this encounter Medications at Time [...] Updated Preprocedure Checklist Entered On: 04/12/2016 10:39 BLENDER LABORER Performed On: 04/12/2016 10:34 BLENDER LABORER by RICK BENITEZ RN Checklist Last Fluid Intake : 04/11/2016 0:00 BLENDER LABORER Last Food Intake : 04/11/2016 22:00 BLENDER LABORER RICK BENITEZ RN - 04/12/2016 10:34 BLENDER LABORER Surgery Prep Grid Contacts/Glasses Removed : Yes Dentures Removed : Yes Hairpins/Hairpiecies Removed : Yes Hearing Aid Removed : Yes Home Prep Complete : Yes Jewelry/Piercing Removed : Yes Makeup/Nail Anguillan Removed : Yes Oral Hygiene : Yes Preop Scrub AM of Surgery : Yes Preop Scrub Night Prior to Surgery : Yes Prosthesis Removed : Yes Tampon Removed : Yes Verified - No hair products used : Yes Voided furniture salesperson to procedure : Yes Wearing Patient Gown : Yes RICK BENITEZ RN - 04/12/2016 10:34 BLENDER LABORER Patient Rights Grid Blood Consent Signed : Yes Surgical/Procedure Consent Signed : Yes RICK BENITEZ RN - 04/12/2016 10:34 BLENDER LABORER Family Location : ted [facility] [phone] Sukhwinder guerrero in waiting room RICK BENITEZ RN - 04/12/2016 10:34 BLENDER LABORER Checklist II Patient Safety Grid Allergy Band [...] Yes RICK BENITEZ RN - 04/12/2016 10:34 BLENDER LABORER RN Who Verified Site : RICK BENITEZ RN Physician Who Verified Site : LAKEISHA OLVERA MD, KARI J RN - 04/12/2016 10:34 BLENDER LABORER LITZY Screening Known Obstructive Sleep Apnea : No - NOT diagnosed with LITZY LITZY Score : No qualifying data available. LITZY Results : No qualifying data available. RICK BENITEZ RN - 04/12/2016 10:34 BLENDER LABORER LITZY Assessment Do you have high blood [...] 68 RICK BENITEZ RN - 04/12/2016 10:34 BLENDER LABORER Valuables/Belongings Valuables/Belongings Grid Valuables at Bedside Clothes, Patient Valuables : Jacket, Pants, Shirt, Shoes, Undergarments Electronic Devices : Cell phone (Comment: with kids [RICK BENITEZ RN - 04/12/2016 10:34 BLENDER LABORER] ) Jewelry : None Monetary Items : Wallet (Comment: with kids [RICK BENITEZ RN - 04/12/2016 10:34 BLENDER LABORER] ) Personal Devices : Glasses RICK BENITEZ RN - 04/12/2016 10:34 BLENDER LABORER Room Orientation/Facility Policy Reviewed : Yes Home Medication Disposition : None brought in with patient RICK BENITEZ RN - 04/12/2016 10:34 BLENDER LABORER Advance Directive Advanced Directives : No Advance Directive Additional Information : Yes RICK BENITEZ RN - 04/12/2016 10:34 BLENDER LABORER Vital Signs Temperature Core : 36.7 DegC(Converted [...] kg/m2 RICK BENITEZ RN - 04/12/2016 10:34 BLENDER LABORER Allergy (As Of: 04/12/2016 10:39:58 BLENDER LABORER) Allergies (Active) NKA Estimated Onset Date: Unspecified ; Created By: WILMER GAONA LPN; Reaction Status: Active ; Category: Drug ; Substance: NKA ; Type: Allergy ; Updated By: WILMER GAONA LPN; Reviewed Date: 04/12/2016 10:39 BLENDER LABORER Source: [facility] POWERCHART Document Id: [id number] BLENDER LABORER!84 DER LABORER documented in this encounter Nursing Notes Lakeisha Figueroa R.N. - 04/12/2016 3:54 PM CST PRN Response PRN Response Entered On: 04/12/2016 15:54 BLENDER LABORER Performed On: 04/12/2016 15:54 BLENDER LABORER by LAKEISHA FIGUEROA RN Intervention Information: oxycodone-acetaminophen Performed by LAKEISHA FIGUEROA RN on 04/12/2016 14:59:51 BLENDER LABORER oxyCODONE-acetaminophen,1tab(s) PO,Pain PRN Medication Effectiveness Evaluation PRN Medication Effective : Yes Post Medication Pain Assessment : 2 LAKEISHA FIGUEROA RN - 04/12/2016 15:54 BLENDER LABORER Source: [facility] Qualiall Document Id: [id number] BLENDER LABORER!4 DER LABORER Lakeisha Figueroa R.N. - 04/12/2016 3:54 PM CST PRN Response PRN Response Entered On: 04/12/2016 15:54 BLENDER LABORER Performed On: 04/12/2016 15:54 BLENDER LABORER by LAKEISHA FIGUEROA RN Intervention Information: hydromorphone Performed by LAKEISHA FIGUEROA RN on 04/12/2016 15:17:07 BLENDER LABORER HYDROmorphone,0.2mg IV Push,Hand Left,Pain PRN Medication Effectiveness Evaluation PRN Medication Effective : Yes Post Medication Pain Assessment : 2 LAKEISHA FIGUEROA RN - 04/12/2016 15:54 BLENDER LABORER Source: [facility] Efficiency NetworkCHART Document Id: [id number] BLENDER LABORER!4 DER LABORER Lakeisha Figueroa R.N. - 04/12/2016 3:54 PM CST PRN Response PRN Response Entered On: 04/12/2016 15:54 BLENDER LABORER Performed On: 04/12/2016 15:54 BLENDER LABORER by LAKEISHA FIGUEROA RN Intervention Information: hydromorphone Performed by LAKEISHA FIGUEROA RN on 04/12/2016 15:06:52 BLENDER LABORER HYDROmorphone,0.1mg IV Push,Hand Left,Pain PRN Medication Effectiveness Evaluation PRN Medication Effective : Yes Post Medication Pain Assessment : 2 LAKEISHA FIGUEROA RN - 04/12/2016 15:54 BLENDER LABORER Source: [facility] POWERCHART Document Id: [id number] BLENDER LABORER!4 DER LABORER Lakeisha Figueroa R.N. - 04/12/2016 3:54 PM CST PRN Response PRN Response Entered On: 04/12/2016 15:54 BLENDER LABORER Performed On: 04/12/2016 15:54 BLENDER LABORER by LAKEISHA FIGUEROA RN Intervention Information: hydromorphone Performed by LAKEISHA FIGUEROA RN on 04/12/2016 15:01:00 BLENDER LABORER HYDROmorphone,0.2mg IV Push,Hand Left,Pain PRN Medication Effectiveness Evaluation PRN Medication Effective : Yes Post Medication Pain Assessment : 2 LAKEISHA FIGUEROA RN - 04/12/2016 15:54 BLENDER LABORER Source: [employer] Document Id: [id number] BLENDER LABORER!4 DER LABORER Lakeisha Figueroa R.N. - 04/12/2016 3:54 PM CST PRN Response PRN Response Entered On: 04/12/2016 15:54 BLENDER LABORER Performed On: 04/12/2016 15:54 BLENDER LABORER by LAKEISHA FIGUEROA RN Intervention Information: oxycodone-acetaminophen Performed by LAKEISHA FIGUEROA RN on 04/12/2016 14:28:42 BLENDER LABORER oxyCODONE-acetaminophen,1tab(s) PO,Pain PRN Medication Effectiveness Evaluation PRN Medication Effective : Yes Post Medication Pain Assessment : 2 LAKEISHA FIGUEROA RN - 04/12/2016 15:54 BLENDER LABORER Source: [employer] Document Id: [id number] BLENDER LABORER!4 DER LABORER Lakeisha Figueroa R.N. - 04/12/2016 3:54 PM CST PRN Response PRN Response Entered On: 04/12/2016 15:54 BLENDER LABORER Performed On: 04/12/2016 15:54 BLENDER LABORER by LAKEISHA FIGUEROA RN Intervention Information: hydromorphone Performed by LAKEISHA FIGUEROA RN on 04/12/2016 14:52:00 BLENDER LABORER HYDROmorphone,0.2mg IV Push,Hand Left,Pain PRN Medication Effectiveness Evaluation PRN Medication Effective : Yes Post Medication Pain Assessment : 2 LAKEISHA FIGUEROA RN - 04/12/2016 15:54 BLENDER LABORER Source: [facility] POWERCHART Document Id: [id number] BLENDER LABORER!4 DER LABORER Rick Benitez R.N. - 04/12/2016 10:30 AM CST Day Surgery Admission History/Asmt Adult Document Has Been Updated Day Surgery Admission History/Asmt Adult Entered On: 04/12/2016 10:34 BLENDER LABORER Performed On: 04/12/2016 10:30 BLENDER LABORER by RICK BENITEZ RN General Info Preferred Name : Twin Admitted From : Non-Health Care Facility Point of Origin Present in Room During Exam/Procedure : Daughter, Son Chief Complaint : umbilical hernia since october Preferred Communication Mode : Verbal Information Given By : Patient Languages : Kazakh Is Patient Female and 13-50 no hysterectomy : No RICK BENITEZ RN - 04/12/2016 10:30 BLENDER LABORER Allergy (As Of: 04/12/2016 10:34:19 BLENDER LABORER) Allergies (Active) NKA Estimated Onset Date: Unspecified ; Created By: WILMER GAONA LPN; Reaction Status: Active ; Category: Drug ; Substance: NKA ; Type: Allergy ; Updated By: WILMER GAONA LPN; Reviewed Date: 04/12/2016 10:31 BLENDER LABORER Nutrition Have you recently lost weight without trying? : No Decreased Appetite Nutrition : No Tube Feedings or Parenteral Nutrition : No MST Score : 0 RICK BENITEZ RN - 04/12/2016 10:30 BLENDER LABORER Home Environment Current Daily Living Assistance : None RICK BENITEZ RN - 04/12/2016 10:30 BLENDER LABORER Dependent Habits Exposure to Tobacco Smoke : Other: former smoker Smoking Status : Former smoker Tobacco 2A : Yes Tobacco Use/Currently Using : No Tobacco Use/Last 30 Days : No Tobacco Use/Last 12 months : No RICK BENITEZ RN - 04/12/2016 10:30 BLENDER LABORER Psychosocial Adult Domestic Abuse Concerns : None Behavioral Health Screen/Safety Assmt : No [facility] Preference : No qualifying data available. RICK BENITEZ RN - 04/12/2016 10:30 BLENDER LABORER Advance Directive Advanced Directives : No Advance Directive Additional Information : Yes RICK BENITEZ RN - 04/12/2016 10:30 BLENDER LABORER Educ Needs Patient/Family Education Needs : Activity limitations/expectations, Nutrition/Diet, Pain management,Postoperative instructions, Preoperative instructions, Safety, fall, Surgery, Treatments/Procedures/Tests RICK BENITEZ RN - 04/12/2016 10:30 BLENDER LABORER Learning Style Preference Adult Grid Patient : Printed materials, Verbal explanation Family : Printed materials, Verbal explanation RICK BENITEZ RN - 04/12/2016 10:30 BLENDER LABORER Psycho/Emotional Affect/Behavior : Calm, Cooperative Pain Symptoms : No RICK BENITEZ RN - 04/12/2016 10:30 BLENDER LABORER Source: [facility] Qualiall Document Id: [id number] BLENDER LABORER!39 DER LABORER Lakeisha Figueroa R.N. - 04/04/2016 10:56 AM CST Pre-op Pre-op teaching and checklist reviewed with patient over the phone. All questions answered. Electronically Signed By: LAKEISHA FIGUEROA RN On: 04/04/2016 10:57 AM [facility] Document Id: [id number] DER LABORER documented in this encounter OR Notes Op Note - Conversion, Historical Provider Ser - 04/12/2016 4:05 PM CST Picis CASE RECORD UPLOAD DATA PATIENT: SAAD MURRAY SURGERY DATE: 04/12/2016 UNIT #: [id number] ROOM: [address] NBR: [id number] STATUS: In Process DATE: 1965 SIGN. STATUS: [...] OR02B Anesthesia Staff Anesthesiologist: JUNE: Penelope Conde RN TRANSITIONAL CARE SECTION NAME : 1/IntraOp Case Record -- [...] Record -- PAGE : OR06A Case Personnel Professor Of Political Science: Lakeisha Lang RN, Dana RN Relief Professor Of Political Science: SECTION NAME : 1/Intra Case Record -- PAGE : OR06B Case Personnel OR Tech: Relief OR Tech: SECTION NAME : 1/IntraOp Case Record -- PAGE : ELOY Case Paint Process Engineer: La Assist: SECTION NAME : 1/IntraOp Case Record -- PAGE : MAREK Case Personnel Other Name: Other Role: Notes: Dayday BA RN FACILITATOR SECTION NAME : 1/IntraOp Case Record -- [...] Comment: Positioned By: JUNE Certified Registered Nurse Managing Jeweler RN Registered Nurse Comment: SECTION NAME : [...] procedure: EBL (ml): 20ml SECTION NAME : 1/[facility] Case Record -- PAGE : OR10A Specimen Manage specimen handling and disposition: Y Specimen: Y Specimen Sent To: PATH Pathology Specimen Description: hernia sac Notes: SECTION NAME : 1/[facility] Case Record -- PAGE : OR10B Culture Culture: N Culture Site: Culture Type: SECTION NAME : 1/[facility] Case Record -- PAGE : OR11A Meds [...] Placement: LTHIGH Left Thigh If Other, detail: [facility] Number: [id number] Cut: 30 Coagulation: 30 Blend: Bipolar: SECTION NAME : 1/IntraOp Case Record -- PAGE : OR12B Special Equipment Special Equipment Used: KAREN Castellanos Comment: JOSE DENTON, ESTEVAN3 Notes: Thermal Unit: Temperature: Y ANES [...] Implants # Qty: Reference Number: 1 [id number] PATCH HERNIA SM # Qty: Consignment Implant Description/Size # Lot #: Serial #: Reference # Location: 1 [id number] UMBILICAL HERNIA # Kettle Loader: Date: Wasted: 1 BARD Hoover 11/25/2017 Notes: SECTION NAME : 1/IntraOp Case Record -- PAGE : OR22A Tissue Log A Tin Pourer From Lab to OR: Tissue Description Tissue [...] Delivery Time: Sex: Delivery Assistance: Notes: [facility]: [facility] Document Id: [id number] Op Note - Penelope Light RN TRANSITIONAL CARE - 04/12/2016 1:50 PM CST ANES, PACU [...] LIGHT CRNA On: 04/12/2016 01:52 PM Source: [facility] POWERCHART Document Id: [id number] DER LABORER Op Note - Penelope Light CRNA - 04/12/2016 11:08 AM CST ANES, Preanesthesia Evaluation Document Contains Addenda Addendum by PENELOPE LIGHT CRNA on April 12, 2016 11:56 BLENDER LABORER STATUS [X] FINALIZED [_] PROCEDURE CANCELLED PROCEDURE [...] LIGHT CRNA On: 04/12/2016 11:10 AM Source: [facility] [employer] Document Id: [id number] DER LABORER Op Note - Lakeisha Olvera M.D. - 04/12/2016 12:00 AM CST HOPRER8 DATE: 04/12/2016 PREOPERATIVE DIAGNOSIS: Umbilical hernia. POSTOPERATIVE DIAGNOSES: 1. Umbilical hernia 2. Adjacent, very small hernia defect, which was slightly above and just a little bit to the right of the original defect. SURGEON: Lakeisha Olvera M.D. PRINCIPLE INDUSTRIAL HYGIENIST: OPERATION: Repair of umbilical hernia and secondary [...] a 2 cm defect. We placed some [employer] [place] clamps in the abdomen, lifting up the [...] OLVERA MD On: 04/18/2016 06:13 PM Source: [facility] MHSDOLBEYNONRADSYS Document Id: [id number] DER LABORER documented in this encounter Miscellaneous Notes Miscellaneous - Conversion, Historical Provider Ser - 04/12/2016 3:54 PM BLENDER LABORER Coding Summary-Paper Based CODING DATE: 04/16/[address] [facility] STATUS: * Discharged to Home or Self Care PAYOR: [facility] APC DESCRIPTION 5341 Peritoneal and Abdominal [...] PROC APC STAT DESCRIPTION DOCTOR NAME DATE 02147 5341 T RPR UMBILICAL HRNA 5 LAKEISHA OLVERA MD 04/12/2016 YRS/> REDUCIBLE NOTE: The code number assigned matches the documented diagnosis and / or procedure in the patient's chart. However, the narrative phrase printed from the coding software may appear abbreviated, or result in slightly different terminology. Revised Coded By: MARY SCHMITZ Revised Date Saved: 04/15/2016 10:47 am Source: [facility] POWERCHART Document Id: [id number] Miscellaneous - Lakeisha Figueroa R.N. - 04/12/2016 3:48 PM CST Adult Postprocedure Assessment Adult Postprocedure Assessment Entered On: 04/12/2016 15:50 BLENDER LABORER Performed On: 04/12/2016 15:48 BLENDER LABORER by LAKEISHA FIGUEROA RN Vital Signs Height : 185 cm(Converted to: 6 ft 1 inch(es)) LAKEISHA FIGUEROA RN - 04/12/2016 15:48 BLENDER LABORER General Level of Consciousness : Alert Orientation : Oriented x 3 Skin Color : Normal for ethnicity Skin Description : Dry, Normal Skin Temperature : Warm LAKEISHA FIGUEROA RN - 04/12/2016 15:48 BLENDER LABORER Cardiovascular Heart Rhythm : Regular LAKEISHA FIGUEROA RN - 04/12/2016 15:48 BLENDER LABORER Respiratory Respiratory Patient Stated Symptoms : None Respirations : Unlabored Distress : None Respiratory Pattern : Regular LAKEISHA FIGUEROA RN - 04/12/2016 15:48 BLENDER LABORER GI/ Nausea Symptoms : No LAKEISHA FIGUEROA RN - 04/12/2016 15:48 BLENDER LABORER Incision/Wound Incision/Wound Care Grid Activity : Assessed Dressing Location : Abdomen Laterality : Central LAKEISHA FIGUEROA RN - 04/12/2016 15:48 BLENDER LABORER Peripheral IV Peripheral IV Assess/Intervention Grid Peripheral IV #1 IV Activity : Discontinue Removal : Catheter intact, Hemostasis within expected timeframe Discontinued Date : 04/12/2016 BLENDER LABORER IV Site : Forearm Laterality : Left LAKEISHA FIGUEROA RN - 04/12/2016 15:48 BLENDER LABORER I&O Oral Intake : 480 mL LAKEISHA FIGUEROA RN - 04/12/2016 15:48 BLENDER LABORER Activity Patient Position : High Donohue's Activity Status ADL : Ambulating in zimmerman Activity Assistance : Stand-by assistance Assistive Device : None Ambulation Distance : 35 m Ambulation Patient Effort : Good LAKEISHA FIGUEROA RN - 04/12/2016 15:48 BLENDER LABORER PARSAP Activity Status : Moves 4 extremities [...] 19 LAKEISHA FIGUEROA RN - 04/12/2016 15:48 BLENDER LABORER Garduno Garduno Agitation Sedation Scale (RASS) : Alert and calm RASS Score : 0 LAKEISHA FIGUEROA RN - 04/12/2016 15:48 BLENDER LABORER Education General Patient Education Powergrid Topics : Discharge instructions/Medication list, Pain Management, Use of pain scale(s), When to callhealth care provider (Comment: Pt up int he zimmerman with the nurse. Steady on feet. Pain improved per pt. IV out and then pt dressed and given instructions for home. pt ahdn children understand. Discharged to home with children. [LAKEISHA FIGUEROA RN - 04/12/2016 15:48 BLENDER LABORER] ) Individuals Taught : Patient, Daughter, Son Barriers to Learning : None evident Teaching Method : Explanation, Printed materials Teaching Evaluation : Able to teach back, Verbalizes understanding LAKEISHA FIGUEROA RN - 04/12/2016 15:48 BLENDER LABORER Source: [facility] POWERCHART Document Id: [id number] BLENDER LABORER!64 DER LABORER Miscellaneous - Lakeisha Figueroa R.N. - 04/12/2016 3:05 PM CST Adult Postprocedure Assessment Adult Postprocedure Assessment Entered On: 04/12/2016 15:26 BLENDER LABORER Performed On: 04/12/2016 15:05 BLENDER LABORER by LAKEISHA FIGUEROA RN Vital Signs Peripheral [...] cm(Converted to: 6 ft 1 inch(es)) LAKEISHA FIGUEORA RN - 04/12/2016 15:21 BLENDER LABORER General Level of Consciousness : Alert Orientation : Oriented x 3 Skin Color : Normal for ethnicity Skin Description : Dry, Normal Skin Temperature : Warm Pain Symptoms : Yes LAKEISHA FIGUEROA RN - 04/12/2016 15:21 BLENDER LABORER Pain Scale Pain Scale Verbal 0-10 : Open LAKEISHA FIGUEROA RN - 04/12/2016 15:21 BLENDER LABORER Pain Pain Assessment Grid Pain 1 Location : Abdomen Laterality : Bilateral Intensity : 4 Quality : Aching, Sharp (Comment: sharp with couging [LAKEISHA FIGUEROA RN - 04/12/2016 15:21 BLENDER LABORER] ) Aggravating Factors : Movement LAKEISHA FIGUEROA RN - 04/12/2016 15:21 BLENDER LABORER Cardiovascular Heart Rhythm : Regular LAKEISHA FIGUEROA RN - 04/12/2016 15:21 BLENDER LABORER Respiratory Respiratory Patient Stated Symptoms : None Respirations : Unlabored Respiratory Pattern : Regular LAKEISHA FIGUEROA RN 04/12/2016 15:21 BLENDER LABORER GI/ Nausea Symptoms : No LAKEISHA FIGUEROA RN - 04/12/2016 15:21 BLENDER LABORER Incision/Wound Incision/Wound Care Grid Activity : Assessed Dressing Location : Abdomen Laterality : Central Description : Dry LAKEISHA FIGUEROA RN - 04/12/2016 15:21 BLENDER LABORER Peripheral IV Peripheral IV Assess/Intervention Grid Peripheral IV #1 IV Site : Forearm Laterality : Left LAKEISHA FIGUEROA RN - 04/12/2016 15:21 BLENDER LABORER Activity Patient Position : Elevate head of bed 30 degrees LAKEISHA FIGUEROA RN - 04/12/2016 15:21 BLENDER LABORER Education General Patient Education Powergrid Topics : Pain Management, Plan of care, Postoperative instructions, Use of pain scale(s) (Comment: Pt con't to have pain 4/10, given percocet and dilaudid as ordered. Ice on. Will con't to monitor. [LAKEISHA FIGUEROA RN - 04/12/2016 15:21 BLENDER LABORER] ) LAKEISHA FIGUEROA RN - 04/12/2016 15:21 BLENDER LABORER Source: [facility]OWERCHART Document Id: [id number] BLENDER LABORER!55 DER LABORER Miscellaneous - Lakeisha Figueroa R.N. - 04/12/2016 2:40 PM CST Adult Postprocedure Assessment Adult Postprocedure Assessment Entered On: 04/12/2016 15:21 BLENDER LABORER Performed On: 04/12/2016 14:40 BLENDER LABORER by LAKEISHA FIGUEROA RN Vital Signs Peripheral [...] inch(es)) LAKEISHA FIGUEROA RN - 04/12/2016 15:20 BLENDER LABORER Source: [facility]ART Document Id: [id number] BLENDER LABORER!12 DER LABORER Miscellaneous - Lakeisha Figueroa R.N. - 04/12/2016 2:22 PM CST Adult Postprocedure Assessment Adult Postprocedure Assessment Entered On: 04/12/2016 15:20 BLENDER LABORER Performed On: 04/12/2016 14:22 BLENDER LABORER by LAKEISHA FIGUEROA RN Vital Signs Temperature [...] inch(es)) LAKEISHA FIGUEROA RN - 04/12/2016 15:04 BLENDER LABORER General Level of Consciousness : Alert Orientation : Oriented x 3 Skin Color : Normal for ethnicity Skin Description : Dry, Normal Skin Temperature : Warm Pain Symptoms : Yes LAKEISHA FIGUEROA RN - 04/12/2016 15:04 BLENDER LABORER Pain Scale Pain Scale Verbal 0-10 : Open LAKEISHA FIGUEROA RN - 04/12/2016 15:04 BLENDER LABORER Pain Pain Assessment Grid Pain 1 Location : Abdomen Laterality : Bilateral Intensity : 3 Quality : Aching, Sharp LAKEISHA FIGUEROA RN - 04/12/2016 15:04 BLENDER LABORER Cardiovascular Heart Rhythm : Regular LAKEISHA FIGUEROA RN - 04/12/2016 15:04 BLENDER LABORER Respiratory Respiratory Patient Stated Symptoms : None Respirations : Unlabored Respiratory Pattern : Regular LAKEISHA FIGUEROA RN - 04/12/2016 15:04 BLENDER LABORER GI/ Nausea Symptoms : No LAKIESHA FIGUEROA RN - 04/12/2016 15:04 BLENDER LABORER Incision/Wound Incision/Wound Care Grid Activity : Assessed Dressing Location : Abdomen Laterality : Central Description : Dry LAKEISHA FIGUEROA RN - 04/12/2016 15:04 BLENDER LABORER Peripheral IV Peripheral IV Assess/Intervention Grid Peripheral IV #1 IV Activity : Assessment IV Site : Forearm Laterality : Left LAKEISHA FIGUEROA RN - 04/12/2016 15:04 BLENDER LABORER Activity Patient Position : Elevate head of bed 30 degrees LAKEISHA FIGUEROA RN - 04/12/2016 15:04 BLENDER LABORER Education General Patient Education Powergrid Topics : Plan of care, Postoperative instructions (Comment: pt returned to [facility] following surgery. Pain 310 on arrival. dressing is CDI and ice on. Children at side. Call light in reach and will con't to monitor. [LAKEISHA FIGUEROA RN - 04/12/2016 15:04 BLENDER LABORER] ) Individuals Taught : Patient, Daughter, Son Barriers to Learning : None evident Teaching Method : Explanation, Printed materials Teaching Evaluation : Verbalizes understanding LAKEISHA FIGUEROA RN - 04/12/2016 15:04 BLENDER LABORER Source: [facility] Qual[employer] Document Id: [id number] BLENDER LABORER!60 DER LABORER Miscellaneous - Rick Benitez R.N. - 04/12/2016 10:30 AM CST Height/Length Height/Length Entered On: 04/12/2016 10:30 BLENDER LABORER Performed On: 04/12/2016 10:30 BLENDER LABORER by RICK BENITEZ RN Height/Length Height : 185 cm RICK BENITEZ RN - 04/12/2016 10:30 BLENDER LABORER Source: [facility] E[employer] NetworkCHART Document Id: [id number] BLENDER LABORER!3 DER LABORER documented in this encounter Plan of Treatment Upcoming Encounters Date Type Specialty Care Team Description 02/15/2022 Office Visit Orthopedic Surgery OlMadyson stacy saumya, DaydayO. [address] [place], [place] [phone] (Wo rk) documented as of this encounter Procedures Procedure Name Priority Date/Time Associated Diagnosis Comme nts SURGICAL PATHOLOGY Routine 04/12/2016 4:27 PM Res ults for this BLENDER LABORER procedure are i n the results section. documented in this encounter Results Pathology Surgical Pathology (04/12/2016 4:27 PM BLENDER LABORER) Specimen (Source) Anatomical Collection Method Collection Time Re ceived Time Location / / Volume Laterality 04/12/2016 4:27 PM BLENDER LABORER Narrative [facility] - 04/15/2016 1:24 PM BLENDER LABORER [facility] in [address] [address] Patient Name: SAAD MURRAY Patient ID #: [id number] Collected: 04/12/2016 Address: [facility]/State/Zip: [address] [place] [address] ??[id number] Received: Reported: 04/14/2016 04/15/2016 Soc. Sec. #: ?/Age/Sex 1965 (Age: 50) ??M Physician(s): DARREL OLVERA MD Copy To: ? [facility] ??[id number] [address] [place] [address], ??[place] ??[id number] SURGICAL PATHOLOGY REPORT FINAL DIAGNOSIS: UMBILICAL HERNIA SAC: --- FIBROMEMBRANOUS TISSUE WITH ACCOMPAN GUILLE ADIPOSE TISSUE WITH EXTRAVASATED BLOOD. [facility]/04/15/2016 BERNADETTE HERNANDEZ M.D. Report electronically released. Interpretation by BERNADETTE HERNANDEZ M.D. SPECIMEN(S) RECEIVED: HERNIA SAC - UMBILICAL HERNIA GROSS DESCRIPTION: Submitted as hernia sac is pink blue fib ro membrane apparently wrapped around yellow adipose tissue 2.5 x 2 x 1.5 cm. ??The adipose tissue appears hemorrhagic in areas. ??RS, one block. [id number] EAE/DMS/04/14/2016 MICROSCOPIC DESCRIPTION: Reviewed by Bernadette Hernandez M.D.; Patholo gist [facility]/04/15/2016 Lakeisha Olvera M.D. LAB SURG PATH ORDERABLES Performing Organization Address City/State/ZIP Code Phon e Number [facility] documented in this encounter Visit Diagnoses Not on filedocumented in this encounter
--- OUTSIDE RECORDS SUMMARY | 2022-01-29 04:16 | XMS_ITS | Encounter Summary ---
:1965 Author Organization [facility] Address [address] [place] [address] Care Team Providers Name Role Phone Laurynbrittani Norma Salas APRN, C.N.P. Primary Care Provider [phone] Encounter Details Date Type Department Care Team Description 09/27/2016 Hospital Encounter HX [facility] Nohemi Pablo i, STEVEN, C.N.P., R. N. 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 - 09/27/2016 10:54 AM CDT [id number] CHIEF COMPLAINT/REASON FOR VISIT Back pain. HISTORY [...] daily for 7 days. He will use [id number] supply he has at home. After 7 [...] APRN, CNP On: 10/15/2016 09:54 PM Source: [facility] MHSDOLBEYNONRADSYS Document Id: [id number] documented in this encounter Miscellaneous Notes Miscellaneous - Ame Beal APRN, C.N.P. - 09/27/2016 3:41 PM CDT Ambulatory Patient Summary [address] [id number] Visit Information Name: SAAD MURRAY [facility] Number: [id number] Current Date: 09/27/2016 15:41:34 [...] if you dont have one. Go to [email or web address] and click on Create Your Account. Then, follow the directions to complete the online form. Youll be asked for your [facility] number which you can find at the top of this document. Your Goals/Additional instructions: Source: [facility] POWERCHART Document Id: [id number] Miscellaneous - Ame Beal APRN, C.N.P. - 09/27/2016 3:41 PM CDT Ambulatory Discharge Medication List [address] [id number] Visit Information Name: SAAD MURRAY [facility] Number: [id number] Current Date: 09/27/2016 15:41:33 [...] CNP Signed On:27-SEP-2016 15:41:31 Additional Information: Source: [facility] POWERCHART Document Id: [id number] Miscellaneous - Wilmer Lyons C.M.A. - 09/27/2016 11:27 AM CDT Adult Corporate Director Talent Assessment Intake/History Adult Corporate Director Talent Assessment Intake/History Entered On: 09/27/2016 11:31 CDT Performed On: 09/27/2016 11:27 CDT by WILMER LYONS [facility] Intake Chief Complaint : Patient presents for [...] Mass Index : 44.41 kg/m2 WILMER LYONS [facility] - 09/27/2016 11:27 CDT General Info Information Given By : Patient Preferred Communication Mode : Verbal Languages : Chinese Is Patient Female and 13-50 no hysterectomy [...] Use/Last 12 months : No WILMER LYONS BEAUTY SALES ADVISOR - 09/27/2016 11:27 CDT Source: [facility] POWERCHART Document Id: [id number] CDT!38 documented in this encounter Plan of Treatment Upcoming Encounters Date Type Specialty Care Team Description 02/15/2022 Office Visit Orthopedic Surgery Madyosn Rosa il, D.ONikhil [address] [place], [place] [phone] (Wo rk) documented as of this encounter Visit Diagnoses Not on filedocumented in this encounter Care Teams Organizational Development Director Relationship Specialty Start Date End Date Norma Solis APRN, C.N.P. PCP - General 09/12/[address] [place] [phone] documented as of this encounter
--- OUTSIDE RECORDS SUMMARY | 2022-01-29 04:16 | XMS_ITS | Encounter Summary ---
:1965 Author Organization [facility] Address [address] [place] [address] Care Team Providers Name Role Phone Norma Kenny APRN, C.NNikhilPNikhil Primary Care Provider [phone] Encounter Details Date Type Department Care Team Description 01/10/[address] [facility] PETRONA Sebas Wesley M.D. 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 PCP - General 09/12/16 [address] [place] [phone] documented as of this encounter
--- OUTSIDE RECORDS SUMMARY | 2022-01-29 04:16 | XMS_ITS | Encounter Summary ---
:1965 Author Organization [facility] Address [address] [place] [address] Care Team Providers Name Role Phone Norma Kenny APRN C.N.P. Primary Care Provider [phone] Encounter Details Date Type Department Care Team Description 03/08/2017 Nurse Triage Department of [facility] Suzan Arnett, Medicine in [facility] [address] [place] [address] [place] [address] Social History Tobacco Use Types [...] How often do you attend christianity or temple More than 4 time s [...] Surgery Madyson Rosa, D.O. [address] [place], [place] [phone] (Wo rk) documented as of this encounter Visit Diagnoses Not on filedocumented in this encounter Care Teams Vulcanizing Machine Operator Relationship Specialty Start Date End Date Norma Kenny APRN, C.N.P. PCP - General 09/12/[address] [place] [phone] documented as of this encounter
--- OUTSIDE RECORDS SUMMARY | 2022-01-29 04:17 | XMS_ITS | Encounter Summary ---
:1965 Author Organization [facility] Address [address] [place] [address] Care Team Providers Name Role Phone Unavailable Primary Care Provider Unavailable Encounter Details Date Type Department Care Team Description 04/12/2014 Hospital Encounter HX [facility] Jacob Chun, STEVEN, C.N.P. [address] [place] [address] (Wo rk) Social History Tobacco [...] How often do you attend adventism or anabaptist More than 4 time s [...] at Date Recorded Male 03/25/2018 1:01 PM WIRE WELDER documented as of this encounter Last Filed Vital Signs Vital Sign Reading Time Taken Comments Blood Pressure 134/96 04/12/2014 11:17 AM WIRE WELDER Pulse 96 04/12/2014 11:17 AM WIRE WELDER Temperature - - Respiratory Rate - - Oxygen Saturation - - Inhaled Oxygen Concentration - - Weight 157 kg (346 lb 5.5 oz) 04/12/2014 11:17 AM WIRE WELDER Height 186 cm (6' 1.23) 04/12/2014 11:17 AM WIRE WELDER Body Mass Index 45.41 04/12/2014 11:17 AM WIRE WELDER documented in this encounter Progress Notes Norma Solis APRN, ViridianaNGregg - 04/12/2014 11:11 AM CST [id number] CHIEF COMPLAINT/REASON FOR VISIT Cough. HISTORY OF [...] NORMA SOLIS On: 05/10/2014 02:40 PM Source: [facility] MHSDOLBEYNONRADSYS Document Id: [id number] WELDER documented in this encounter Miscellaneous Notes Miscellaneous - Norma Solis APRN, C.N.P. - 04/12/2014 12:12 PM WIRE WELDER Ambulatory Patient Summary [address] [id number] Visit Information Name: SAAD MURRAY [facility] Number: [id number] Current Date: 04/12/2014 12:12:27 Physicians [...] as needed for cough/wheezing New Routed to [address] [address] benzonatate (benzonatate 100 mg oral capsule) 1 cap, Oral, three times a day as needed for Cough NewRouted to [address] [address] hydrochlorothiazide (hydrochlorothiazide 50 mg oral [...] appointment detail needed. Your Goals/Additional instructions: Source: [facility] POWERCHART Document Id: [id number] WELDER Miscellaneous - Norma Solis APRN C.N.PNikhil - 04/12/2014 12:12 PM WIRE WELDER Ambulatory Discharge Medication List [address] [id number] Visit Information Name: HENOKISAACFlori SAAD Jarad [facility] Number: [id number] Visit Date: 04/12/2014 12:12:25 Attending [...] as needed for cough/wheezing New Routed to [address] [address] benzonatate (benzonatate 100 mg oral capsule) 1 cap, Oral, three times a day as needed for Cough NewRouted to [address] [address] hydrochlorothiazide (hydrochlorothiazide 50 mg oral [...] of emergency. Electronically Signed By: NORMA SOLIS BOTTOM LIQUOR ATTENDANT Signed On:12-APR-2014 12:12:21 Additional Information: Source: [facility] POWERCHART Document Id: [id number] WELDER Miscellaneous - Jeannette Gleason L.P.N. - 04/12/2014 11:17 AM WIRE WELDER Adult Disaster Recovery Manager Intake/History Adult Disaster Recovery Manager Intake/History Entered On: 04/12/2014 11:23 WIRE WELDER Performed On: 04/12/2014 11:17 WIRE WELDER by JEANNETTE GLEASON LPN Intake Chief Complaint [...] kg/m2 JEANNETTE GLEASON LPN - 04/12/2014 11:17 WIRE WELDER General Info Information Given By : Patient Languages : Danish Is Patient Female and 13-50 no hysterectomy : No JEANNETTE GLEASON LPN - 04/12/2014 11:17 WIRE WELDER Subjective Pain Symptoms : No JEANNETTE GLEASON LPN - 04/12/2014 11:17 WIRE WELDER Dependent Habits Tobacco Use/Currently Using : No Smoking Status : Former smoker JEANNETTE GLEASON LPN - 04/12/2014 11:17 WIRE WELDER Tobacco Use Grid Last Use : > 20 years VICTORINO JEANNETTE MARTÍNEZ CREDIT CARD ANALYST - 04/12/2014 11:17 WIRE WELDER ID Screen Drug Resistant Organism : No Travel Within Last 21 Days : No JEANNETTE GLEASON CREDIT CARD ANALYST - 04/12/2014 11:17 WIRE WELDER Source: [facility] POWERCHART Document Id: [id number] WIRE WELDER!35 WELDER documented in this encounter Plan of Treatment Upcoming Encounters Date Type Specialty Care Team Description 02/15/2022 Office Visit Orthopedic Surgery Madyson Rosa, D.ONikhil [address] [place] [phone] (Wo rk) documented as of this encounter Visit Diagnoses Not on filedocumented in this encounter
--- OUTSIDE RECORDS SUMMARY | 2022-01-29 04:17 | XMS_ITS | Encounter Summary ---
:1965 Author Organization [facility] Address [address] [place] [address] Care Team Providers Name Role Phone Unavailable Primary Care Provider Unavailable Encounter Details Date Type Department Care Team Description 02/17/2015 Hospital Encounter HX NO MAPPING Norma Kenny, APR N, C.N.P. 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 documented as of this encounter Miscellaneous Notes Miscellaneous - Conversion, Historical Provider Ser - 02/17/2015 11:59 PM CASINO DEALER Coding Summary-Paper Based CODING DATE: 03/15/2015 FINAL [facility] STATUS: * Discharged to Home or Self [...] CARDOSO Date Saved: 03/15/2015 11:55 am [facility] Document Id: [id number] documented in this encounter Plan of Treatment Upcoming Encounters Date Type Specialty Care Team Description 02/15/2022 Office Visit Orthopedic Surgery Madyson Rosa D.ONikhil [address] [place] [phone] (Wo rk) documented as of this encounter Visit Diagnoses Not on filedocumented in this encounter
--- OUTSIDE RECORDS SUMMARY | 2022-01-29 04:17 | XMS_ITS | Encounter Summary ---
:1965 Author Organization [facility] Address [address] [place] [address] Care Team Providers Name Role Phone Unavailable Primary Care Provider Unavailable Encounter Details Date Type Department Care Team Description 03/15/2016 Hospital Encounter HX [facility] Nohemi Pablo i, STEVEN, C.N.P., R. N. [address] [facility], [facility] [address] [place], [place] [address] (Wo rk) Social History Tobacco [...] How often do you attend sabianist or confucianist More than 4 time s [...] at Date Recorded Male 03/25/2018 1:01 PM HIGH SCHOOL VICE PRINCIPAL documented as of this encounter Last Filed Vital Signs Vital Sign Reading Time Taken Comments Blood Pressure 142/84 03/15/2016 12:50 PM HIGH SCHOOL VICE PRINCIPAL Pulse 92 03/15/2016 12:50 PM HIGH SCHOOL VICE PRINCIPAL Temperature - - Respiratory Rate - - Oxygen Saturation - - Inhaled Oxygen Concentration - - Weight 155 kg (341 lb 4.4 oz) 03/15/2016 12:50 PM HIGH SCHOOL VICE PRINCIPAL Height 185 cm (6' 0.84) 03/15/2016 12:50 PM HIGH SCHOOL VICE PRINCIPAL Body Mass Index 45.23 03/15/2016 12:50 PM HIGH SCHOOL VICE PRINCIPAL documented in this encounter Medications at Time [...] STEVEN, C.N.P. - 03/15/2016 12:44 PM CST [id number] Document Contains Addenda CHIEF COMPLAINT/REASON FOR VISIT Preoperative. HISTORY OF PRESENT ILLNESS Saad is a 50-year-old male, who presents today for preoperative exam for umbilical hernia repair with mesh placement on 03/29/[address] [place] [address] Dr. Olvera. Saad denies any personal [...] APRN, C.N.P./pos Electronically Signed By: MAITE REY [place] ATTORNEY On: 03/19/2016 09:04 PM Modified by and Electronically Signed by: MAITE REY [place] ATTORNEY On: 03/19/2016 08:57 PM Source: [facility] MHSDOLBEYNONRADSYS Document Id: [id number] SCHOOL VICE PRINCIPAL documented in this encounter Miscellaneous Notes Miscellaneous - Bony eWstbrook - 07/23/2016 2:55 PM CDT Norma Solis [...] 2016 15:32:07 CDT From: HETAL JARA RN ([facility] Nurse) To: NORMA SOLIS CNP; Sent: 07/23/2016 15:32:07 CDT Subject: FW: Norma Rey - please call back EBONY about possible sooner appt No, he didn't have hip surgery, it seems to be a chronic issue. He was seen for it 01/02/16. Addendum by NORMA SOLIS CNP on July 23, 2016 15:27:07 CDT From: NROMA SOLIS CNP To: [facility] Nurse; Sent: 07/23/2016 15:27:07 CDT Subject: RE: [...] Olvera by phone (his surgeon) at the [facility] today before he leaves. Thanks, TK Addendum by HETAL JARA RN on July 23, 2016 15:15:43 CDT From: HETAL JARA RN ([facility] Nurse) To: NORMA SOLIS CNP; Sent: 07/23/2016 [...] with Maite Rey CNP. From: BONY WESTBROOK ([facility]) To: [facility] Family Medicine Nurse; Cc: [facility] Call Frannie; Sent: 07/23/2016 14:55:11 CDT Subject: Norma Solis [...] into your concern. Thank you for calling [facility]. Source: [facility] POWERCHART Document Id: [id number] SCHOOL VICE PRINCIPAL Miscellaneous - Rosi Oropeza - 04/18/2016 10:07 AM CST Maite Rey - Status of refill Document Contains Addenda Addendum by JALEEL TIMMONS RN on April 19, 2016 08:30:56 HIGH SCHOOL VICE PRINCIPAL see previous message Addendum by JALEEL TIMMONS RN on April 19, 2016 08:29:23 HIGH SCHOOL VICE PRINCIPAL LMTCB Addendum by JALEEL TIMMONS RN on April 18, 2016 16:17:19 HIGH SCHOOL VICE PRINCIPAL LMTCB Addendum by JOSH ZENG RN on April 18, 2016 10:40:55 HIGH SCHOOL VICE PRINCIPAL From: JOSH ZENG RN To: [facility] Nurse; Sent: 04/18/2016 10:40:55 HIGH SCHOOL VICE PRINCIPAL Subject: Refill-Please call back EBONY A message regarding pt's Oxy was sent to your pool yesterday. Please advise and call pt back to let him know the status. Thank you. From: ROSI OROPEZA To: JOSH ZENG RN; Sent: 04/18/2016 10:07:55 HIGH SCHOOL VICE PRINCIPAL Subject: Maite Rey - Status of refill [...] 4 business hours.. Thank you for calling [facility]. Source: [facility] POWERCHART Document Id: [id number] Electronically signed by [facility] Telecommunication Engineer [id number] at 08/25/2016 11:21 AM CDT Miscellaneous - Ailyn Almendarez - 04/09/2016 12:29 PM CST medication refill request: Maite Rey Document Contains Addenda Addendum by GABRIEL YAN RN on April 11, 2016 8:58 HIGH SCHOOL VICE PRINCIPAL [facility] [place]. Unable to LVM on pt's phone as phone just kept ringing with no voice mail set up Addendum by CORY BOB on April 10, 2016 16:23 HIGH SCHOOL VICE PRINCIPAL Please advise once this has been faxed to [facility] in [place]. Pharmacy has not received yet according to pt. Thank you Pt would like phone call when sent Addendum by MAITE REY NP on April 09, 2016 15:50:28 HIGH SCHOOL VICE PRINCIPAL Approved Order:traMADol (traMADol 50 mg oral tablet) 1-2 tab(s) PO 2xDay Qty: 60 tab(s) Refills: 0 Substitutions Allowed PRN Pain Print - [id number] Signed by MAITE REY NP 04/09/2016 15:50:24 Addendum by HETAL JARA RN on April 09, 2016 14:37:48 HIGH SCHOOL VICE PRINCIPAL From: HETAL JARA RN ([facility] Medicine Nurse) To: MAITE REY NP; Sent: 04/09/2016 14:37:48 HIGH SCHOOL VICE PRINCIPAL Subject: Med Management On hold pending signature Order:traMADol (traMADol 50 mg oral tablet) 1-2 tab(s) PO 2xDay Qty: 60 tab(s) Refills: 0 Substitutions Allowed PRN Pain Print - [id number] Addendum by JOSH ZENG RN on April 09, 2016 14:31:54 HIGH SCHOOL VICE PRINCIPAL From: JOSH ZENG RN To: [facility] Family Medicine Nurse; Sent: 04/09/2016 14:31:54 HIGH SCHOOL VICE PRINCIPAL Subject: FW: medication refill request: Maite Rey From: AILYN ALMENDAREZ ([facility]) To: JOSH ZENG RN; Cc: [facility]; Sent: 04/09/2016 12:29:46 HIGH SCHOOL VICE PRINCIPAL Subject: medication refill request: Maite Rey Actions: [...] What pharmacy do you use?[facility] in [place] o Have you contacted your pharmacy regarding this request? I will send this information to the appropriate staff member who will look into your concern. If thenurse needs to talk to you he or she will call you back within two hours. Thank you for calling [facility]. Source: [facility] POWERCHART Document Id: [id number] SCHOOL VICE PRINCIPAL Miscellaneous - Lavinia Mike R.N. - 03/21/2016 11:42 AM CST Lisinopril-HCTZ Document Contains Addenda Addendum by WILMER LYONS CMA on March 27, 2016 9:09 HIGH SCHOOL VICE PRINCIPAL Tried calling patient again, unable to leave message as no voicemail. Addendum by KAYLIN HARKINS RN on March 21, 2016 12:59:04 HIGH SCHOOL VICE PRINCIPAL Spoke with pharmacy and requested patient be advised to contact clinic to discuss Addendum by KAYLIN HARKINS RN on March 21, 2016 12:57:21 HIGH SCHOOL VICE PRINCIPAL attempted to call patient to relay message from 03/19 -- phone rang/No Voicemail to leave message. per notes it does look as though a letter was sent with the phys plan of care Addendum by MAITE REY [place] ATTORNEY on March 21, 2016 12:40:19 HIGH SCHOOL VICE PRINCIPAL From: MAITE REY [place] ATTOR[place] To: ALETA [facility] Nurse; Sent: 03/21/2016 12:40:19 HIGH SCHOOL VICE PRINCIPAL Subject: RE: Lisinopril-HCTZ If you get a hold of pt, please notify of message from 03/19. Or have pharmacist inform him to call us and ask for Wilmer for the message about EKG and BP mgmt. Thanks, HAO Addendum by MAITE REY [place] ATTOR[place] on March 21, 2016 12:39:30 HIGH SCHOOL VICE PRINCIPAL Approved Order:lisinopril-hydroCHLOROthiazide (lisinopril-hydroCHLOROthiazide 20mg-25mg oral tablet) 1 tab(s)PO Daily Qty: 30 tab(s) Refills: 5 Substitutions Allowed Route To Pharmacy - [facility] Ezoic [place] (Zestoretic) Signed by MAITE REY NP 03/21/2016 12:39:18 From: LAVINIA MIKE RN ([facility] Nurse) To: MAITE REY [place] ATTORNEY; Sent: 03/21/2016 11:42:10 HIGH SCHOOL VICE PRINCIPAL Subject: Lisinopril-HCTZ On hold pending signature Order:lisinopril-hydroCHLOROthiazide (lisinopril-hydroCHLOROthiazide 20mg-25mg oral tablet) 1 tab(s)PO Daily Qty: 30 tab(s) Refills: 5 Substitutions Allowed Route To Pharmacy - [facility] Ezoic [place] (Zestoretic) Documented Discontinue:lisinopril-hydroCHLOROthiazide (lisinopril-hydrochlorothiazide 20 mg-25 mg oral tablet) Signed by LAVINIA MIKE RN 03/21/2016 11:41:49 Caller is: ( ) Patient ( ) Mother ( ) Father ( ) Spouse ( ) Daughter ( ) Son ( x ) Pharmacy ( ) Other: Provider: Emigdio Solis Pharmacy: [facility] Name of Medications Needing Refill: Lisinopril-HCTZ 20/25 Last Refill Date: Additional Information: Documented med by hx. You saw patient last for comp - pre op physical on 03/15/16 Last / Future Appointment: Order placed for annual visit. Disposition: ( x ) Send to Pharmacy ( ) Call to Pharmacy ( ) Patient will pickle solution maker Script ( ) Mail Rxto Patient Source: [facility] POWERCHART Document Id: [id number] SCHOOL VICE PRINCIPAL Miscellaneous - Wilmer Lyons, C.M.A. - 03/20/2016 11:23 AM CST Custom Result Letter March 20, 2016 SAAD LISETTE [address] [facility] [address] Dear SAAD MURRAY, We tried calling you [...] 2016 This document has images extracted. Source: [facility] POWERCHART Document Id: [id number] Electronically signed by [facility] Telecommunication Engineer [id number] at 08/25/2016 11:21 AM CDT Miscellaneous - Maite Rey APRN, C.N.P. - 03/19/2016 8:48 AM CST Labs Document Contains Addenda Addendum by WILMER LYONS CMA on March 27, 2016 09:09:17 HIGH SCHOOL VICE PRINCIPAL Tried calling patient, no voicemail. Addendum by WILMER LYONS CMA on March 20, 2016 11:18:08 HIGH SCHOOL VICE PRINCIPAL Tried calling patient, unable to leave message. Will send letter. From: MAITE REY [place] ATTOR[place] To: WILMER LYONS CMA; Sent: 03/19/2016 08:48:21 HIGH SCHOOL VICE PRINCIPAL Subject: Labs Please notify that cholesterol has [...] on the Metoprolol daily. Thanks, HAO Source: [facility] POWERCHART Document Id: [id number] Electronically signed by Conversion, [facility] Telecommunication Engineer [id number] at 08/25/2016 11:21 AM CDT Miscellaneous - Maite Rey, STEVEN, C.N.P. - 03/15/2016 1:19 PM CST Ambulatory Patient Summary [address] [id number] Visit Information Name: SAAD MURRAY [facility] Number: [id number] Current Date: 03/15/2016 13:19:11 Physicians [...] BMI 45-49 posted on 03/15 at 12:50 HIGH SCHOOL VICE PRINCIPAL. Your Upcoming Appointments Date Time Location Provider 03/29/2016 08:00 Dar Booth MD 04/12/2016 07:45 [facility] Dar Givens MD Attention: Contact [...] if you dont have one. Go to [email or web address] and click on Create Your Account. Then, follow the directions to complete the online form. Youll be asked for your [facility] number which you can find at the top of this document. Your Goals/Additional instructions: Source: [facility] POWERCHART Document Id: [id number] SCHOOL VICE PRINCIPAL Miscellaneous - Maite Rey APRN, C.N.P. - 03/15/2016 1:19 PM CST Ambulatory Discharge Medication List [address] [id number] Visit Information Name: SAAD MURRAY [facility] Number: [id number] Current Date: 03/15/2016 13:19:10 Attending Provider: MAITE REY [place] ATTORNEY Primary Care Provider: NORMA SOLIS CNP SAAD [...] of emergency. Electronically Signed By: MAITE REY [place] Signed On:15-MAR-2016 13:19:06 Additional Information: Source: [facility] POWERCHART Document Id: [id number] SCHOOL VICE PRINCIPAL Miscellaneous - Carolyn Murray, RNikhilMNikhilANikhil - 03/15/2016 12:50 PM CST Adult Molder Foam Rubber Intake/History Document Has Been Updated Adult Molder Foam Rubber Intake/History Entered On: 03/15/2016 12:53 HIGH SCHOOL VICE PRINCIPAL Performed On: 03/15/2016 12:50 HIGH SCHOOL VICE PRINCIPAL by CAROLYN MURRAY Intake Chief Complaint : Pre Op Date: 03-29-16 Location: [facility] Surgeon: Dr Olvera Procedure: Hernia repair with [...] kg/m2 CAROLYN MURRAY ANTOINEMarylin - 03/15/2016 12:50 HIGH SCHOOL VICE PRINCIPAL General Info Languages : Spanish Is Patient Female and 13-50 no hysterectomy : No LAURYNCAROLYN Ruby - 03/15/2016 12:50 HIGH SCHOOL VICE PRINCIPAL Subjective Pain Symptoms : No HENOKISAACCAROLYN Ruby - 03/15/2016 12:50 HIGH SCHOOL VICE PRINCIPAL Dependent Habits Exposure to Tobacco Smoke : Other: former smoker Smoking Status : Former smoker Tobacco 2A : Yes Tobacco Use/Currently Using : No Tobacco Use/Last 30 Days : No Tobacco Use/Last 12 months : No HENOKJAMILKATHLEENSTEPHENIECAROLYN Ruby ANTOINEMarylin - 03/15/2016 12:50 HIGH SCHOOL VICE PRINCIPAL Allergy (As Of: 03/15/2016 12:53:27 HIGH SCHOOL VICE PRINCIPAL) Allergies (Active) NKA Estimated Onset Date: Unspecified ; Created By: WILMER GAONA LPN; Reaction Status: Active ; Category: Drug ; Substance: NKA ; Type: Allergy ; Updated By: WILMER GAONA LPN; Reviewed Date: 03/15/2016 12:50 HIGH SCHOOL VICE PRINCIPAL Source: [facility] POWERCHART Document Id: [id number] HIGH SCHOOL VICE PRINCIPAL!27 SCHOOL VICE PRINCIPAL documented in this encounter Plan of Treatment Upcoming Encounters Date Type Specialty Care Team Description 02/15/2022 Office Visit Orthopedic Surgery Madyson Rosa, D.ONikhil [address] [place], [place] [phone] (Wo rk) documented as of this encounter Procedures Procedure Name Priority Date/Time Associated Comments Diagnosis LIPID PANEL, S Routine 03/15/2016 1:45 PM Results for this HIGH SCHOOL VICE PRINCIPAL procedure are i n the results section. CBC WITHOUT Routine 03/15/2016 1:45 PM Results f or this DIFFERENTIAL, B HIGH SCHOOL VICE PRINCIPAL procedure ar e in the results section. COMPREHENSIVE Routine 03/15/2016 1:45 PM Results for this METABOLIC PANEL, S/P HIGH SCHOOL VICE PRINCIPAL procedu re are in the results section. ECG Routine 03/15/2016 1:36 PM Results f or this HIGH SCHOOL VICE PRINCIPAL procedure are i n the results section. documented in this encounter Results CBC without Differential (03/15/2016 1:45 PM HIGH SCHOOL VICE PRINCIPAL) P athologist Signature Leukocytes 8.9 3.5 - 10.5 POWERCHART X109L Erythrocytes 4.99 4.32 - 5.72 POWERCHART E8834N Hemoglobin 15.0 13.5 - 17.5 POWERCHART GDL Hematocrit 45.8 38.8 - 50.0 POWERCHART MCV 91.8 81.2 - 95.1 POWERCHART FL HX RDW 12.6 11.8 - 15.6 POWERCHART Platelet Count 265 150 - 450 POWERCHART X109L Specimen (Source) Anatomical Collection Method Collection Time Re ceived Time Location / / Volume Laterality Blood 03/15/2016 1:45 PM HIGH SCHOOL VICE PRINCIPAL Maite Rey APRN, C.N.P., R.N. LAB BLOOD ADD-ON Performing Organization Address City/State/ZIP Code Phon e Number POWERCHART Lipid Panel (03/15/2016 1:45 PM HIGH SCHOOL VICE PRINCIPAL) athologist Signature Cholesterol, 183 <=199 MGDL POWERCHART [...] esting for FH and FDB [facility]: FH/ADH Genetic Reflex [place] (test ADHP). Acquired (non-genetic) causes of markedly increased LDL cholesterol include cholestatic liver disease due to the presence of LpX. If a genetic form of hypercholesterolemia is suspected, family studies including biochemical testing fo r lipids (total cholesterol,triglycerides, LDL cholesterol and HDL cholesterol) are recommended. ??Please contact the laboratory at or the on-line test catalog at [employer] Check for information about how to order these danette ts or to speak with a genetic counselor. Further interpretation would require clinical information. Specimen (Source) Anatomical Collection Method Collection Time Re ceived Time Location / / Volume Laterality Blood 03/15/2016 1:45 PM HIGH SCHOOL VICE PRINCIPAL Viridiana Adams APRNNNikhilPNikhil LAB BLOOD ADD-ON Performing Organization Address City/State/ZIP Code Phon e Number POWERCHART (ABNORMAL) CMP (Comprehensive Metabolic Panel) (03/15/2016 1:45 PM HIGH SCHOOL VICE PRINCIPAL) [facility] gist Method Time Signature Alanine 40 7 [...] POWERCHART MLMINSA eGFR Black/ >60.0 >=60.0 POWERCHART Filipino MLMINSA Bilirubin, Total, S 0.7 <=1.2 MGDL POWERCHAR T Total Protein, S 7.1 6.3 - 7.9 POWERCHART GDL Specimen (Source) Anatomical Collection Method Collection Time Re ceived Time Location / / Volume Laterality Blood 03/15/2016 1:45 PM HIGH SCHOOL VICE PRINCIPAL Norma Solis APRN, C.N.P. LAB BLOOD ADD-ON Performing Organization Address City/State/ZIP Code Phon e Number POWERCHART ECG 12 Lead (03/15/2016 1:36 PM HIGH SCHOOL VICE PRINCIPAL) Specimen (Source) Anatomical Collection Method Collection Time Re ceived Time Location / / Volume Laterality 03/15/2016 1:36 PM HIGH SCHOOL VICE PRINCIPAL [facility] - 03/15/2016 1:36 PM HIGH SCHOOL VICE PRINCIPAL Test Reason : EKG Blood Pressure : [...] ECG ORDERABLES Performing Organization Address City/State/ZIP Code [facility] e Number [facility] [address] [place] [id number] documented in this encounter Visit Diagnoses Not on filedocumented in this encounter
--- OUTSIDE RECORDS SUMMARY | 2022-01-29 04:17 | XMS_ITS | Encounter Summary ---
:1965 Author Organization [facility] Address [address] [place] [address] Care Team Providers Name Role Phone Unavailable Primary Care Provider Unavailable Encounter Details Date Type Department Care Team Description 03/05/2016 Hospital Encounter HX [facility] Jaziel Dao M.D. 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 documented as of this encounter Last Filed Vital Signs Vital Sign Reading Time Taken Comments Blood Pressure 151/86 03/05/2016 8:10 AM FRICTION WELDING MACHINE OPERATOR Pulse 97 03/05/2016 8:10 AM FRICTION WELDING MACHINE OPERATOR Temperature - - Respiratory Rate 16 03/05/2016 8:10 AM FRICTION WELDING MACHINE OPERATOR Oxygen Saturation - - Inhaled Oxygen Concentration - - Weight 154 kg (339 lb 4.6 oz) 03/05/2016 8:10 AM FRICTION WELDING MACHINE OPERATOR Height 185 cm (6' 0.84) 03/05/2016 8:10 AM FRICTION WELDING MACHINE OPERATOR Body Mass Index 44.97 03/05/2016 8:10 AM FRICTION WELDING MACHINE OPERATOR documented in this encounter Medications at Time of Discharge Medication Sig Dispensed Refills Start Date End Date atorvastatin (for_LIPITOR) Take 1 tablet by 0 03/06/2017 20 mg tablet mouth at bedtime. metoprolol succinate Take 1 tablet by 0 6 05/12/2017 (for_TOPROL-XL) 25 mg 24 mouth daily. hr tablet documented as of this encounter Consult Notes Dar Dao M.D. - 03/05/2016 7:59 AM CST [id number] This is a 50-year-old male who is [...] CVA tenderness. EXTREMITIES: Without cyanosis or edema. WELL LOGGING CAPTAIN: Intact. IMPRESSION/REPORT/PLAN An enlarging umbilical hernia. Because [...] DAO MD On: 03/20/2016 06:22 PM Source: [facility] MHSDOLBEYNONRADSYS Document Id: [id number] TION WELDING MACHINE OPERATOR documented in this encounter Miscellaneous Notes Miscellaneous - Dar Dao M.D. - 03/05/2016 8:47 AM CST Ambulatory Patient Summary [facility] [address] [id number] Visit Information Name: SAAD MURRAY [facility] Number: [id number] Current Date: 03/05/2016 08:47:28 Physicians [...] waistline) or spreads to the back ?? [phone] Jeffy Yin, [address] [place] [address]. All rights reserved. This information is not [...] if you dont have one. Go to [email or web address] and click on Create Your Account. Then, follow the directions to complete the online form. Youll be asked for your [facility] number which you can find at the top of this document. Your Goals/Additional instructions: This document has images extracted. Please consider using [employer] for all your patient education needs. Source: [facility] POWERCHART Document Id: [id number] TION WELDING MACHINE OPERATOR Miscellaneous - Dar Dao M.D. - 03/05/2016 8:47 AM CST Ambulatory Discharge Medication List [facility] [address] [id number] Visit Information Name: SAAD MURRAY [facility] Number: [id number] Current Date: 03/05/2016 08:47:27 Attending [...] MD Signed On:05-MAR-2016 08:46:24 Additional Information: Source: [facility] POWERCHART Document Id: [id number] TION WELDING MACHINE OPERATOR Miscellaneous - Bernice Whalen RNikhilN. - 03/05/2016 8:10 AM CST Adult Mathematics Technician Intake/History Adult Mathematics Technician Intake/History Entered On: 03/05/2016 8:11 FRICTION WELDING MACHINE OPERATOR Performed On: 03/05/2016 8:10 FRICTION WELDING MACHINE OPERATOR by BERNICE WHALEN edge stainer machine Chief Complaint : new pt consult- umbilical [...] kg/m2 BERNICE WHALEN RN - 03/05/2016 8:10 FRICTION WELDING MACHINE OPERATOR General Info Information Given By : Patient Preferred Communication Mode : Verbal Languages : Armenian Is Patient Female and 13-50 no hysterectomy : No BERNICE WHALEN RN - 03/05/2016 8:10 FRICTION WELDING MACHINE OPERATOR Subjective Pain Symptoms : BERNICE Valente RN - 03/05/2016 8:10 FRICTION WELDING MACHINE OPERATOR Dependent Habits Exposure to Tobacco Smoke : Other: former smoker Smoking Status : Former smoker Tobacco 2A : Yes Tobacco Use/Currently Using : No Tobacco Use/Last 30 Days : No Tobacco Use/Last 12 months : No BERNICE WHALEN RN - 03/05/2016 8:10 FRICTION WELDING MACHINE OPERATOR Source: [facility] POWERShompton Document Id: [id number] FRICTION WELDING MACHINE OPERATOR!31 TION WELDING MACHINE OPERATOR documented in this encounter Plan of Treatment Upcoming Encounters Date Type Specialty Care Team Description 02/15/2022 Office Visit Orthopedic Surgery Madyson Rosa D.O. [address] [place] [phone] (Wo rk) documented as of this encounter Visit Diagnoses Not on filedocumented in this encounter
--- OUTSIDE RECORDS SUMMARY | 2022-01-29 04:17 | XMS_ITS | Encounter Summary ---
:1965 Author Organization [facility] Address [address] [place] [address] Care Team Providers Name Role Phone Unavailable Primary Care Provider Unavailable Encounter Details Date Type Department Care Team Description 08/11/2015 Hospital Encounter [facility]X [facility] Jacob Chun, STEVEN, C.N.P. [address] [place] [address] (Wo rk) Social History Tobacco [...] How often do you attend mu-ism or episcopalian More than 4 time s [...] at Date Recorded Male 03/25/2018 1:01 PM DEVELOPER EVANGELIST documented as of this encounter Last Filed [...] Progress Notes Norma Solis APRN, C.N.P. - 08/11/2015 2:03 PM CDT [...] from his previous physical. We discussed his [place] risk score and I recommended rechecking his cholesterol, and if still elevated, starting atorvastatin 10mg nightly. He will stop into clinic for a lab visit ( Lipid and CMP) and BP check next week. All questions answered. Electronically Signed By: NORMA SOLIS CNP On: 08/11/2015 02:16 PM Source: [facility] POWERCHART Document Id: [id number] documented in this encounter Miscellaneous Notes Miscellaneous - Rosi Oropeza - 02/21/2016 12:48 PM CST Urgent - Norma Solis/ Hairspring Staker Provider - Tramadol Document Contains Addenda Addendum by NAVJOT MAY MD on February 23, 2016 15:47:53 DEVELOPER EVANGELIST From: NAVJOT MAY MD Sent: 02/23/2016 15:47:53 DEVELOPER EVANGELIST Subject: RE:FW: Urgent - Hairspring Staker Provider - Tramadol Approved Order:traMADol (traMADol 50 mg oral tablet) 1-2 tab(s) PO 2xDay Qty: 60 tab(s) Refills: 0 Substitutions Allowed PRN Pain Print - [id number] Signed by NAVJOT MAY MD 02/23/2016 15:47:51 Addendum by ROSI POP RN on February 21, 2016 16:56:40 DEVELOPER EVANGELIST Script was called into [facility] in [place]. Left message for patient that he would need to beseen in clinic for future refills. Addendum by ROSI POP RN on February 21, 2016 14:26:48 DEVELOPER EVANGELIST From: ROSI POP RN ([facility] Nurse) To: NAVJOT MAY MD; Sent: 02/21/2016 14:26:48 DEVELOPER EVANGELIST Subject: FW: Urgent - Hairspring Staker Provider - Tramadol Addendum by ROSI POP RN on February 21, 2016 14:26:36 DEVELOPER EVANGELIST On hold pending signature Order:traMADol (traMADol 50 mg oral tablet) 1-2 tab(s) PO 2xDay Qty: 60 tab(s) Refills: 0 Substitutions Allowed PRN Pain Print - [id number] Addendum by NAVJOT MAY MD on February 21, 2016 14:10:25 DEVELOPER EVANGELIST From: NAVJOT MAY MD To: [facility] Nurse; Sent: 02/21/2016 14:10:25 DEVELOPER EVANGELIST Subject: RE: Urgent - Hairspring Staker Provider - Tramadol Under the circumstances with TK on maternity leave, will fill #60. Addendum by JULIA LAKE RN on February 21, 2016 13:17:47 DEVELOPER EVANGELIST From: JULIA LAKE RN ([facility] Medicine Nurse) To: NAVJOT MAY MD; Sent: 02/21/2016 13:17:47 DEVELOPER EVANGELIST Subject: FW: Urgent - Hairspring Staker Provider - Tramadol Dr. May - Patient [...] possible referral. TK From: ROSI OROPEZA To: [facility] Medicine Nurse; Sent: 02/21/2016 12:48:06 DEVELOPER EVANGELIST Subject: Urgent - Norma Solis/ Hairspring Staker Provider - Tramadol Actions: Notify patient- refer [...] pharmacy do you use? [facility] in [facility] o Have you contacted your pharmacy regarding this request? I will send this information to the appropriate staff member who will look into your concern. Someone will call you back within 4 business hours.. Thank you for calling [facility]. Source: [facility] POWERCHART Document Id: [id number] Miscellaneous - Norma Solis APRN, C.N.P. - 08/11/2015 9:26 AM CDT Ambulatory Patient Summary [address] [id number] Visit Information Name: SAAD MURRAY [facility] Number: [id number] Current Date: 08/11/2015 09:26:43 Physicians [...] if you dont have one. Go to [email or web address] and click on Create Your Account. Then, follow the directions to complete the online form. Youll be asked for your [facility] number which you can find at the top of this document. Your Goals/Additional instructions: Source: [facility] POWERCHART Document Id: [id number] Miscellaneous - Norma Solis APRN, C.N.P. - 08/11/2015 9:26 AM CDT Ambulatory Discharge Medication List [address] [id number] Visit Information Name: SAAD MURRAY [facility] Number: [id number] Visit Date: 08/11/2015 09:26:42 Attending [...] CNP Signed On:11-AUG-2015 09:26:39 Additional Information: Source: [facility] POWERCHART Document Id: [id number] Miscellaneous - Jeannette Gleason L.PNikhilN. - 08/11/2015 8:48 AM CDT Adult Campaign Fundraiser Intake/History Adult Campaign Fundraiser Intake/History Entered On: 08/11/2015 8:55 CDT Performed On: 08/11/2015 8:48 CDT by JEANNETTE GLEASON SOCIAL MEDIA INTERN Intake Chief Complaint : follow up Ambulatory [...] Preferred Communication Mode : Verbal Languages : Bengali Is Patient Female and 13-50 no hysterectomy [...] GLEASON LPN - 08/11/2015 8:48 CDT [facility] Document Id: [id number] CDT!46 documented in this encounter Plan of Treatment Upcoming Encounters Date Type Specialty Care Team Description 02/15/2022 Office Visit Orthopedic Surgery Madyson Rosa D.O. [address] [place] [phone] (Wo rk) documented as of this encounter Visit Diagnoses Not on filedocumented in this encounter
--- OUTSIDE RECORDS SUMMARY | 2022-01-29 04:17 | XMS_ITS | Encounter Summary ---
:1965 Author Organization [facility] Address [address] [place] [address] Care Team Providers Name Role Phone Unavailable Primary Care Provider Unavailable Encounter Details Date Type Department Care Team Description 08/08/2015 Hospital Encounter HX [facility] Jacob Chun, STEVEN, C.N.P. 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 - 08/08/2015 2:44 PM CDT [id number] CHIEF COMPLAINT/REASON FOR VISIT Headache. HISTORY OF [...] SOLIS CNP On: 08/11/2015 11:55 AM Source: [facility] MHSDOLBEYNONRADSYS Document Id: [id number] documented in this encounter Miscellaneous Notes Miscellaneous - Reva Ortiz L.P.N. - 08/09/2015 9:10 AM CDT Efraín- flor Document Contains Addenda Addendum by GABRIEL YAN RN on August 09, 2015 11:57:06 CDT From: GABRIEL YAN RN ([facility] Nurse) To: NORMA SOLIS CNP; Sent: 08/09/2015 11:57:06 CDT Subject: FW: Efraín- clarification He doesn't need a refill. He is taking Lisinopril/HCTZ:20-25 combo. Addendum by NORMA SOLIS CNP on August 09, 2015 11:38:42 CDT From: NORMA SOLIS CNP To: [facility] Nurse; Sent: 08/09/2015 11:38:42 CDT Subject: RE: Efraín- clarification Gotcha. Does he need a refill of his combo BP pill you said? Can you verify dosage for me? Thanks, TK Addendum by GABRIEL YAN RN on August 09, 2015 11:21:57 CDT From: GABRIEL YAN RN ([facility] Nurse) To: NORMA SOLIS CNP; Sent: 08/09/2015 [...] 10:01:41 CDT From: NORMA SOLIS CNP To: [facility] Medicine Nurse; Sent: 08/09/2015 10:01:41 CDT Subject: RE: Efraín- clarification I sent prescriptions yesterday to [facility] in [place] - Metoprolol and Flexeril (see in chart)to take the Metoprolol last night and continue with his current Lisinopril-HCTZ in the morning. He can take the flexeril as needed. So he did not get his meds last night? Thanks, TK Addendum by GABRIEL YAN RN on August 09, 2015 09:17:43 CDT From: GABRIEL YAN RN ([facility] Nurse) To: NORMA SOLIS CNP; Sent: 08/09/2015 09:17:43 CDT Subject: FW: Efraín- clarification From: REVA ORTIZ LPN To: [facility] Nurse; Sent: 08/09/2015 09:10:43 CDT Subject: Efraín- clarification Patient called requesting clarification of meds. Patient states that he thought he was to be taking Lisinopril-HCTZ with Metoprolol but no new rx. Patient needing direction and if he is to take both heis needing new rx for Lisinopril- HCTZ to [facility]. Please advise Nursing to call with clarification [phone] [facility] Source: [facility] POWERCHART Document Id: [id number] Miscellaneous - Norma Solis APRN, C.N.P. - 08/08/2015 4:42 PM CDT Ambulatory Patient Summary [address] [id number] Visit Information Name: SAAD MURRAY [facility] Number: [id number] Current Date: 08/08/2015 16:42:26 [...] Muscle spasm x 10 day(s) Routed to [address] [address] metoprolol (metoprolol succinate 25 mg oral tablet, extended release) 1 Tablet(s), Oral, once a day Routed to [address] [address] pantoprazole (Protonix 40 mg [...] if you dont have one. Go to [email or web address] and click on Create Your Account. Then, follow the directions to complete the online form. Youll be asked for your [facility] number which you can find at the top of this document. Your Goals/Additional instructions: Source: [facility] POWERCHART Document Id: [id number] Miscellaneous - Norma Solis APRN, C.N.P. - 08/08/2015 4:42 PM CDT Ambulatory Discharge Medication List [address] [id number] Visit Information Name: SAAD MURRAY [facility] Number: [id number] Visit Date: 08/08/2015 16:42:25 [...] Muscle spasm x 10 day(s) Routed to [address] [id number] metoprolol (metoprolol succinate 25 mg oral tablet, extended release) 1 Tablet(s), Oral, once a day Routed to [address] [address] pantoprazole (Protonix 40 mg oral delayed release [...] By: NORMA SOLIS CNP Signed On:08-AUG-2015 16:42:23 Additional Information: [facility] Document Id: [id number] Miscellaneous - Jeannette Gleason, L.P.N. - 08/08/2015 [...] GLEASON LPN - 08/08/2015 15:30 CDT [facility] Document Id: [id number] CDT!6 Miscellaneous - Jeannette Gleason L.P.N. 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 POWERCHART Document Id: [id number] CDT!47 documented in this encounter Plan of Treatment Upcoming Encounters Date Type Specialty Care Team Description 02/15/2022 Office Visit Orthopedic Surgery Madyson Rosa, D.ONikhil [address] [place], [place] [phone] (Wo rk) documented as of this encounter Visit Diagnoses Not on filedocumented in this encounter
--- OUTSIDE RECORDS SUMMARY | 2022-01-29 04:17 | XMS_ITS | Encounter Summary ---
:1965 Author Organization [facility] Address [address] [place] [address] Care Team Providers Name Role Phone Unavailable Primary Care Provider Unavailable Encounter Details Date Type Department Care Team Description 04/26/2015 Hospital Encounter HX [facility] Jacob Chun, STEVEN, C.N.P. 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 - 04/26/2015 1:17 PM CST BP Pt came in for a BP check, 152/76 was concerned this was high in comparission to his last BP taken in Jan. which is the distolic was lower, play writer showed pt the previous results. Pt was also inquiringabout a medication he was given for 10 days for sore muscles and he muscles hurt again. The medication was Flexril and pt was advised to make an appointment to see Mrs. Farr FIELD LOGISTICS COORDINATOR to discuss this further. Pt was also wanting to know if his BP medications would change due to the systolic number being higher, play writer informed pt that if FIELD LOGISTICS COORDINATOR decieds to increase the medication without the need to see him,he would recieve a phone call, pt agreed to this understanding and did say I would still like to speak with Norma play writer told pt that I would relay the message. Electronically Signed By: ROSAMARIA CORTEZ LPN On: 04/26/2015 01:24 PM Source: [facility] POWERCHART Document Id: [id number] RICT MANAGER documented in this encounter Miscellaneous Notes Miscellaneous - Rosamaria Cortez L.P.N. - 04/26/2015 1:15 PM CST Ambulatory Vitals Height Weight Ambulatory Vitals Height Weight Entered On: 04/26/2015 13:15 DISTRICT MANAGER Performed On: 04/26/2015 13:15 DISTRICT MANAGER by ROSAMARIA CORTEZ LPN Vitals/Ht/Wt Peripheral Pulse [...] inch(es)) ROSAMARIA CORTEZ LPN - 04/26/2015 13:15 DISTRICT MANAGER Source: [facility] POWERCHART Document Id: [id number] DISTRICT MANAGER!12 RICT MANAGER documented in this encounter Plan of Treatment Upcoming Encounters Date Type Specialty Care Team Description 02/15/2022 Office Visit Orthopedic Surgery Madyson Rosa, D.ONkihil [address] [place] [phone] (Wo rk) documented as of this encounter Visit Diagnoses Not on filedocumented in this encounter
--- OUTSIDE RECORDS SUMMARY | 2022-01-29 04:17 | XMS_ITS | Encounter Summary ---
:1965 Author Organization [facility] Address [address] [place] [address] Care Team Providers Name Role Phone Unavailable Primary Care Provider Unavailable Encounter Details Date Type Department Care Team Description 05/28/2012 Hospital Encounter HX [facility] Jaimie Ho M.D. 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 - 05/28/2012 9:00 AM CST [id number] CHIEF COMPLAINT/REASON FOR VISIT This 46-year-old male is here for a yearly evaluation of his health and renewal of a blood pressure medication. He also has several health issues that he wants evaluated. SYSTEMS REVIEW Patient was having heart palpitations around [place] time, rather frequently. At this time, they [...] 45-minute doctor visit. Russ Benson M.D./nasima DOCID: [id number] Electronically Signed By: RUSS BENSON MD On: 06/02/2012 07:47 AM Source: [facility] MHSDOLBEYNONRADSYS Document Id: [id number] D BANK WORKER documented in this encounter Miscellaneous Notes [...] tab(s) Refills: 0 Substitutions Allowed Route To [facility] [place] Signed by RUSS BENSON MD 11/15/2013 08:41:24 From: GARRY CABRERA RN ([facility] Nurse) To: RUSS BENSON MD; Sent: 11/12/2013 10:55:46 CDT Subject: refill request - Protonix - LAST OV 05/28/12 On hold pending signature Order:pantoprazole (Protonix 40 mg oral delayed release tablet) 1 tab(s) PO Daily NO FURTHER REFILLSWITHOUT APPOINTMENT. Qty: 30 tab(s) Refills: 0 Substitutions Allowed Route To Pharmacy - [facility] Caller is: ( ) Patient ( ) Mother ( ) Father ( ) Spouse ( ) Daughter ( ) Son ( x ) Pharmacy ( ) Other: Provider: Marcelino Pharmacy: [facility] Aura Vargas Name of Medications Needing Refill: Protonix Last Refill Date: 08/24/13 Additional Information:Patient is long overdue for appointment. Unable to refill per protocol. 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 POWERCHART Document Id: [id number] Miscellaneous - Conversion, Historical Provider Ser - [...] MD 10/04/2013 08:54:38 From: JULIA MCCAULEY RN ([facility] Nurse) To: RUSS BENSON MD; Sent: 09/29/2013 11:34:05 CDT Subject: Med Management On hold pending signature Order:hydrochlorothiazide (hydrochlorothiazide 50 mg oral tablet) 1 tab(s) PO Daily needs to be seenbefore more refills Qty: 90 tab(s) Refills: 1 Substitutions [facility]owed [facility] Last physical on 05/13/2013 for physical. Needed to return in one year for yearly, has not and doesnt meet protocol Source: [facility] POWERCHART Document Id: [id number] Miscellaneous - Russ Benson M.D. - 05/29/2012 8:00 AM CST Results Notification Document Contains Addenda Addendum by WILMER LOMELI LPN on 01 June 2012 09:03:46 BLOOD BANK WORKER results and diets mailed to pt From: RUSS BENSON MD To: WILMER LOMELI LPN; Sent: 05/29/2012 08:00:13 BLOOD BANK WORKER Show up: 05/29/2012 07:53:00 BLOOD BANK WORKER Subject: Results Notification cbc and chems ok [...] Rate 12 mm/hr (0 - 22) Source: [facility] POWERCHART Document Id: [id number] Electronically signed by Conversion, [facility] Coach Driver [id number] at 08/28/2016 9:26 AM CDT Miscellaneous - Russ Benson M.D. - 05/28/2012 10:30 AM CST Ambulatory Patient Summary [address] [address] Visit Information Name: SAAD MURRAY Jarad [facility] Number: [id number] Current Date: 05/28/2012 10:29:59 Physicians [...] No Appointments found Your Goals/Additional instructions: Source: [facility] POWERCHART Document Id: [id number] D BANK WORKER Miscellaneous - Russ Benson M.D. - 05/28/2012 10:29 AM CST Ambulatory Depart Summary [address] [address] Visit Information Name: SAAD MURRAY [facility] Number: [id number] Visit Date: 05/28/2012 10:29:59 Attending [...] your provider for clarification. Additional Information: Source: [facility] POWERCHART Document Id: [id number] D BANK WORKER Wilmer Reyna, Augusto.P.N. - 05/28/2012 10:10 AM CST Health Assessment Health Assessment Entered On: 05/28/2012 10:10 BLOOD BANK WORKER Performed On: 05/28/2012 10:10 BLOOD BANK WORKER by WILMER LOMELI LPN Health Assessment Complete Health Assessment Complete or Modified : Annual Health Assessment Annual Health Assessment Completed : Yes WILMER LOMELI LPN - 05/28/2012 10:10 BLOOD BANK WORKER Nutrition Nutrition Risk Factors by History Adult : None WILMER LOMELI LPN - 05/28/2012 10:10 BLOOD BANK WORKER Functional Current Daily Living Assistance : None WILMER LOMELI LPN - 05/28/2012 10:10 BLOOD BANK WORKER Dependent Habits Tobacco Use/Currently Using : No Smoking Status : Former smoker WILMER LOMELI LPN - 05/28/2012 10:10 BLOOD BANK WORKER Psychosocial Domestic Abuse Concerns : None WILMER LOMELI LPN - 05/28/2012 10:10 BLOOD BANK WORKER Advance Directive Advanced Directives : No WILMER LOMELI LPN - 05/28/2012 10:10 BLOOD BANK WORKER Educ Needs Learning Style Preference Adult Grid Patient : None Family : None WILMER LOMELI LPN - 05/28/2012 10:10 BLOOD BANK WORKER Source: [facility] KiggitCHART Document Id: [id number] D BANK WORKER Tete - Wilmer Lomeli L.P.N. - 05/28/2012 9:13 AM CST Adult Environmental Issues Instructor Intake/History Adult Environmental Issues Instructor Intake/History Entered On: 05/28/2012 9:19 BLOOD BANK WORKER Performed On: 05/28/2012 9:13 BLOOD BANK WORKER by WILMER LOMELI LPN Intake Chief [...] 42.58kg/m2 WILMER LOMELI LPN - 05/28/2012 9:13 BLOOD BANK WORKER General Info Information Given By : Patient Languages : Senegalese WILMER LOMELI LPN - 05/28/2012 9:13 BLOOD BANK WORKER Subjective Pain Symptoms : Yes WILMER LOMELI LPN - 05/28/2012 9:13 BLOOD BANK WORKER Pain Pain Assessment Grid Pain 1 Location : Other: Joints and muscle aches all over body WILMER LOMELI LPN - 05/28/2012 9:13 BLOOD BANK WORKER Dependent Habits Tobacco Use/Currently Using : No Smoking Status : Former smoker WILMER LOMELI LPN - 05/28/2012 9:13 BLOOD BANK WORKER Allergy Allergies (Active) NKA Estimated Onset Date: Unspecified ; Created By: WILMER LOMELI LPN; Reaction Status: Active ; Category: Drug ; Substance: NKA ; Type: Allergy ; Updated By: WILMER LOMELI LPN; Reviewed Date: 04/30/2012 16:05 BLOOD BANK WORKER Source: [facility] POWERCHART Document Id: [id number] D BANK WORKER documented in this encounter Plan of Treatment Upcoming Encounters Date Type Specialty Care Team Description 02/15/2022 Office Visit Orthopedic Surgery Madyson Rosa, DaydayONikhil [address] [place], [place] [phone] (Wo rk) documented as of this encounter Procedures Procedure Name Priority Date/Time Associated Comments Diagnosis LIPID PANEL, S Routine 05/28/2012 9:30 AM Results for this BLOOD BANK WORKER procedure are i n the results section. SEDIMENTATION RATE, B Routine 05/28/2012 9:30 AM Results for this BLOOD BANK WORKER procedure are i n the results section. CBC WITHOUT Routine 05/28/2012 9:30 AM Results f or this DIFFERENTIAL, B BLOOD BANK WORKER procedure ar e in the results section. THYROID-STIMULATING Routine 05/28/2012 9:30 AM Re sults for this HORMONE-SENSITIVE BLOOD BANK WORKER procedure are in (S-TSH) the results section. T4 (THYROXINE), FREE, Routine 05/28/2012 9:30 AM Results for this S BLOOD BANK WORKER procedure are i n the results section. BASIC METABOLIC PANEL, Routine 05/28/2012 9:30 AM Results for this S/P BLOOD BANK WORKER procedure are i n the results section. documented in this encounter Results Sedimentation Rate (05/28/2012 9:30 AM BLOOD BANK WORKER) [facility] Time Signature Sedimentation 12 0 - 22 POWERCHART Rate, B MMHR Specimen (Source) Anatomical Collection Method Collection Time Re ceived Time Location / / Volume Laterality Blood 05/28/2012 9:30 AM BLOOD BANK WORKER Russ Benson M.D. LAB BLOOD ADD-ON Performing Organization Address City/State/ZIP Code Phon e Number POWERCHART CBC without Differential (05/28/2012 9:30 AM BLOOD BANK WORKER) athologist Signature Leukocytes 6.2 3.5 - 10.5 POWERCHART X109L Erythrocytes 5.18 4.32 - 5.72 POWERCHART E7856N Hemoglobin 16.6 13.5 - 17.5 POWERCHART GDL Hematocrit 46.3 38.8 - 50.0 POWERCHART MCV 89.4 81.0 - 95.0 POWERCHART FL HX RDW 12.2 11.8 - 15.6 POWERCHART Platelet Count 244 150 - 450 POWERCHART X109L Specimen (Source) Anatomical Collection Method Collection Time Re ceived Time Location / / Volume Laterality Blood 05/28/2012 9:30 AM BLOOD BANK WORKER Russ Benson M.D. LAB BLOOD ADD-ON Performing Organization Address City/State/ZIP Code Phon e Number POWERCHART T4 (Thyroxine), Free (05/28/2012 9:30 AM BLOOD BANK WORKER) P athologist Signature T4 (Thyroxine), 1.12 0.80 - 1.80 POWERCHART Free, S NGDL Specimen (Source) Anatomical Collection Method Collection Time Re ceived Time Location / / Volume Laterality Blood 05/28/2012 9:30 AM BLOOD BANK WORKER Russ Benson M.D. LAB BLOOD ADD-ON Performing Organization Address City/[facility]/ZIP Code Phon e Number POWERCHART Thyroid-Stimulating Hormone-Sensitive (s-TSH) (05/28/2012 9:30 AM BLOOD BANK WORKER) P athologist Signature TSH 1.390 0.300 - POWERCHART (Thyrotropin) 5.000 UIUML Specimen (Source) Anatomical Collection Method Collection Time Re ceived Time Location / / Volume Laterality Blood 05/28/2012 9:30 AM BLOOD BANK WORKER Russ Benson M.D. LAB BLOOD ADD-ON Performing Organization Address City/[facility] [[email or web address]] Code Phon e Number POWERCHART (ABNORMAL) Lipid Panel (05/28/2012 9:30 AM BLOOD BANK WORKER) [facility] Method Time Signature Cholesterol, Total 259 [...] / Volume Laterality Blood 05/28/2012 9:30 AM BLOOD BANK WORKER Russ Benson M.D. LAB BLOOD ADD-ON Performing Organization Address City/[facility]/ZIP Code Phon e Number POWERCHART (ABNORMAL) BMP (Basic Metabolic Panel) (05/28/2012 9:30 AM BLOOD BANK WORKER) P athologist Signature Sodium, S 139 135 [...] / Volume Laterality Blood 05/28/2012 9:30 AM BLOOD BANK WORKER Russ Benson M.D. LAB BLOOD ADD-ON Performing Organization Address City/State/ZIP Code Phon e Number POWERCHART documented in this encounter Visit Diagnoses Not on filedocumented in this encounter
--- OUTSIDE RECORDS SUMMARY | 2022-01-29 04:17 | XMS_ITS | Encounter Summary ---
:1965 Author Organization [facility] Address [address] [place] [address] Care Team Providers Name Role Phone Unavailable Primary Care Provider Unavailable Encounter Details Date Type Department Care Team Description 08/17/2015 Hospital Encounter HX [facility] LAB Norma Solis, STEVEN, C.N.P. 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 Result Name Current Result Normal Range ALT [...] 2015 This document has images extracted. Source: [facility] POWERCHART Document Id: [id number] Miscellaneous - Norma Solis APRN, C.N.P. - 08/18/2015 2:45 PM CDT Results Notification Document Contains Addenda Addendum by JEANNETTE GLEASON LPN on August 23, 2015 14:57:42 CDT From: JEANNETTE GLEASON LPN To: NORMA SOLIS CRAFT COORDINATOR; Sent: 08/23/2015 14:57:42 CDT Show up: 08/23/2015 [...] time. I gave him the web site [employer] to help him see and understand how [...] (H) 185 mg/dL ( - <=129) Source: [facility] POWERCHART Document Id: [id number] Electronically signed by Conversion, [facility] Bender Hand [id number] at 08/24/2016 2:10 PM CDT documented in this encounter Plan of Treatment Upcoming Encounters Date Type Specialty Care Team Description 02/15/2022 Office Visit Orthopedic Surgery Madyson Rosa D.ONikhil [address] [place], [place] [phone] (Wo rk) documented as [...] (Comprehensive Metabolic Panel) (08/17/2015 9:30 AM CDT) [facility] gist Method Time Signature Alanine [...] POWERCHART MLMINSA eGFR Black/ >60.0 >=60.0 POWERCHART Russian MLMINSA Bilirubin, Total, S 1.0 <=1.2 MGDL [...] esting for FH and FDB is [facility]: FH/ADH Genetic Reflex [place] el (test ADHP). Acquired (non-genetic) causes of markedly increased LDL cholesterol include cholestatic liver disease due to the presence of LpX. If a genetic form of hypercholesterolemia is suspected, family studies including biochemical testing fo r lipids (total cholesterol,triglycerides, LDL cholesterol and HDL cholesterol) are recommended. ??Please contact the laboratory at or the on-line test catalog at [employer] for information about how to order these [...]
--- OUTSIDE RECORDS SUMMARY | 2022-01-29 04:17 | XMS_ITS | Encounter Summary ---
:1965 Author Organization [facility] Address [address] [place] [address] Care Team Providers Name Role Phone Unavailable Primary Care Provider Unavailable Encounter Details Date Type Department Care Team Description 02/29/2016 Hospital Encounter HX [facility] Nohemi Pablo i, STEVEN, C.N.P., R. N. 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 IMPRESSION/REPORT/PLAN Resolving abdominal pain. 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 We do [...] APRN, C.N.P./pos Electronically Signed By: AME BEAL FURNITURE MECHANIC On: 03/14/2016 11:06 PM Source: [facility] MHSDOLBEYNONRADSYS Document Id: [id number] FICIAL CHERRY MAKER documented in this encounter Miscellaneous Notes Miscellaneous - Ame Beal APRN, C.N.P. - 03/04/2016 9:40 PM CST Ambulatory Discharge Medication List [address] [id number] Visit Information Name: SAAD MURRAY [facility] Number: [id number] Current Date: 03/04/2016 21:40:08 Attending [...] of emergency. Electronically Signed By: AME BEAL FURNITURE MECHANIC Signed On:04-MAR-2016 21:40:03 Additional Information: Source: [facility] POWERCHART Document Id: [id number] FICIAL CHERRY MAKER Miscellaneous - Ame Beal APRN, C.N.P. - 03/04/2016 9:40 PM CST Ambulatory Patient Summary [address] [id number] Visit Information Name: LISETTE SAAD Jarad [facility] Number: [id number] Current Date: 03/04/2016 21:40:09 Physicians [...] of emergency. Electronically Signed By: AME BEAL FURNITURE MECHANIC Signed On:04-MAR-2016 21:40:03 Your Allergies & Intolerances Substance Reaction Symptoms Category Comments No Known Allergies Drug Your Problem List Problem Status Onset Comments HTN [Hypertension] Active GERD [Gastroesophageal reflux disease] Active Hyperlipidemia NOS Active Hyperglycemia Active Your Upcoming Appointments Date Time Location Provider 03/05/2016 08:00 [facility] Lorrie Olvera MD, Dar Bonner Attention: Contact [...] you dont have one. Go to [email or web address] and click on Create Your Account. Then, follow the directions to complete the online form. Youll be asked for your [facility] number which you can find at the top of this document. Your Goals/Additional instructions: Source: [facility] POWERCHART Document Id: [id number] FICIAL CHERRY MAKER Miscellaneous - Wilmer Lyons C.M.A. 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 Intake/History Adult [place]fgrass Technician Intake/History Entered On: 02/29/2016 8:29 ARTIFICIAL CHERRY MAKER Performed On: 02/29/2016 8:24 ARTIFICIAL CHERRY MAKER by WILMER LYONS [facility] Intake Chief Complaint : Patient presents with [...] kg/m2 WILMER LYONS CMA - 02/29/2016 8:24 ARTIFICIAL CHERRY MAKER General Info Information Given By : Patient Preferred Communication Mode : Verbal Languages : Rwandan Is Patient Female and 13-50 no hysterectomy : No WILMER LYONS CMA - 02/29/2016 8:24 ARTIFICIAL CHERRY MAKER Subjective Pain Symptoms : No WILMER LYONS [facility] - 02/29/2016 8:24 ARTIFICIAL CHERRY MAKER Dependent Habits Exposure to Tobacco Smoke : Other: former smoker Smoking Status : Former smoker Tobacco 2A : Yes Tobacco Use/Currently Using : No Tobacco Use/Last 30 Days : No Tobacco Use/Last 12 months : No WILMER LYONS [facility] - 02/29/2016 8:24 ARTIFICIAL CHERRY MAKER Source: [facility] POWERBandhappy Document Id: [id number] ARTIFICIAL CHERRY MAKER!32 FICIAL CHERRY MAKER documented in this encounter Plan of Treatment Upcoming Encounters Date Type Specialty Care Team Description 02/15/2022 Office Visit Orthopedic Surgery Madyson Rosa, D.ONikhil [address] [place] [phone] (Wo rk) documented as of this encounter Visit Diagnoses Not on filedocumented in this encounter
--- OUTSIDE RECORDS SUMMARY | 2022-01-29 04:17 | XMS_ITS | Encounter Summary ---
:1965 Author Organization [facility] Address [address] [place] [address] Care Team Providers Name Role Phone Unavailable Primary Care Provider Unavailable Encounter Details Date Type Department Care Team Description 11/18/2013 Hospital Encounter HX [facility] Jaimie Ho M.D. 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 - 11/18/2013 2:49 PM CDT [id number] CHIEF COMPLAINT/REASON FOR VISIT This 47-year-old male [...] BENSON MD On: 11/22/2013 09:16 AM Source: [facility] MHSDOLBEYNONRADSYS Document Id: [id number] documented in this encounter Nursing Notes Russ [...] contain saturated fat unless labeled otherwise. ?? [id number] [place] [address]. All rights reserved. This information is not intended as a substitute for professional medical care. Always follow your healthcare professional's instructions. This document has images extracted. Please consider using spigit for all your patient education needs. Source: [facility] POWERCHART Document Id: [id number] documented in this encounter Miscellaneous Notes Miscellaneous - Russ Benson M.D. - 11/18/2013 3:48 PM CDT Ambulatory Patient Summary [address] [id number] Visit Information Name: SAAD MURRAY [facility] Number: [id number] Current Date: 11/18/2013 15:48:48 Physicians [...] ankles. This is a CHANGE Routed to [address] [address] metoprolol (metoprolol succinate 50 mg oral tablet, extended release) 1 Tablet(s), Oral, once a day for blood pressure and heart palpitations, tingling. Routed to [address] [address] pantoprazole (Protonix 40 mg oral [...] contain saturated fat unless labeled otherwise. ?? [id number] [place] [address]. All rights reserved. This information is not intended as a substitute for professional medical care. Always follow your healthcare professional's instructions. Your Goals/Additional instructions: This document has images extracted. Please consider using spigit for all your patient education needs. Source: [facility] POWERCHART Document Id: [id number] Miscellaneous - Russ Benson M.D. - 11/18/2013 3:48 PM CDT Ambulatory Discharge Medication List [address] [id number] Visit Information Name: SAAD MURRAY [facility] Number: [id number] Visit Date: 11/18/2013 15:48:47 Attending [...] ankles. This is a CHANGE Routed to [address] [address] metoprolol (metoprolol succinate 50 mg oral tablet, extended release) 1 Tablet(s), Oral, once a day for blood pressure and heart palpitations, tingling. Routed to [address] [address] pantoprazole (Protonix 40 mg oral [...] MD Signed On:18-NOV-2013 15:48:04 Additional Information: Source: [facility] POWERCHART Document Id: [id number] Miscellaneous - Conversion, Historical Provider Ser - 11/18/2013 2:54 PM CDT Adult Hospital Chaplain Intake/History Adult Hospital Chaplain Intake/History Entered On: 11/18/2013 15:00 CDT Performed [...] Information Given By : Patient Languages : Georgian Is Patient Female and 13-50 no hysterectomy [...] DELFIN PAREDES LPN 11/18/2013 14:54 CDT Source: [facility] POWERCHART Document Id: [id number]!38 documented in this encounter Plan of Treatment Upcoming Encounters Date Type Specialty Care Team Description 02/15/2022 Office Visit Orthopedic Surgery Madyson Rosa D.ONikhil [address] [place], [place] [phone] (Wo rk) documented as of this encounter Visit Diagnoses Not on filedocumented in this encounter
--- OUTSIDE RECORDS SUMMARY | 2022-01-29 04:17 | XMS_ITS | Encounter Summary ---
:1965 Author Organization [facility] Address [address] [place] [address] Care Team Providers Name Role Phone Unavailable Primary Care Provider Unavailable Encounter Details Date Type Department Care Team Description 02/17/2015 Hospital Encounter HX [facility] Jacob Chun, STEVEN, C.N.P. 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 - 02/17/2015 10:55 AM CST [id number] CHIEF COMPLAINT/REASON FOR VISIT Annual exam. HISTORY [...] pressure 146/90. Oxygen 98% on room air. Ftqtrx021 cm, weight 155.5 kg. BMI is 45. [...] SOLIS CNP On: 02/21/2015 08:00 AM Source: [facility] ALMASDOLBEYNJONELLE Document Id: [id number] T GUARD documented in this encounter Miscellaneous Notes Miscellaneous - Norma Solis APRN, C.N.P. - 02/21/2015 12:58 PM PLANT GUARD Results Notification Document Contains Addenda Addendum by SHARMILA GLEASON LPN on 21 February 2015 16:33:45 PLANT GUARD From: SHARMILA GLEASON LPN To: NORMA SOLIS CNP; Sent: 02/21/2015 16:33:45 PLANT GUARD Show up: 02/21/2015 16:33:00 PLANT GUARD Subject: RE: Results Notification pt returned call and was given the information below. He states he will be following up with TK nextweek with regard to his shoulder that she had treated and will discuss his options at that time. Addendum by SHARMILA GLEASON LPN on 21 February 2015 14:25:19 PLANT GUARD Left message to call back. From: NORMA SOLIS CNP To: SHARMILA GLEASON LPN; Sent: 02/21/2015 12:58:20 PLANT GUARD Show up: 02/21/2015 12:54:00 PLANT GUARD Subject: Results Notification Labs look good, but [...] 2.14 x10(9)/L (0.90 - 2.90) 02/17/2015 11:52 Dukes Absolute 0.61 x10(9)/L (0.30 - 0.90) 02/17/2015 11:52 Eos Absolute 0.10 x10(9)/L (0.05 - 0.50) 02/17/2015 11:52 Baso Absolute 0.02 x10(9)/L (0.00 - 0.30) 02/17/2015 11:52 Differential? Auto Source: [facility] POWERCHART Document Id: [id number] Electronically signed by Conversion, [facility] Comic Illustrator [id number] at 08/26/2016 6:24 AM CDT Miscellaneous - Norma Solis APRN, C.N.P. - 02/17/2015 11:51 AM PLANT GUARD Ambulatory Patient Summary [address] [id number] Visit Information Name: SAAD MURRAY [facility] Number: [id number] Current Date: 02/17/2015 11:51:22 Physicians [...] to two if needed. New Routed to [address] [address] lisinopril-hydrochlorothiazide (lisinopril-hydrochlorothiazide 20 mg-25 mg oral tablet) 1 Tablet(s),Oral, once a day (Zestoretic) New Routed to [address] [address] metoprolol (metoprolol succinate 25 mg oral tablet, extended release) 1 Tablet(s), Oral, once a day This is a CHANGE Routed to [address] [address] *pantoprazole (Protonix 40 mg oral [...] if you dont have one. Go to [email or web address] and click on Create Your Account. Then, follow the directions to complete the online form. Youll be asked for your [facility] number which you can find at the top of this document. Your Goals/Additional instructions: Source: [facility] POWERCHART Document Id: [id number] T GUARD Miscellaneous - Norma Solis APRN, C.N.P. - 02/17/2015 11:51 AM PLANT GUARD Ambulatory Discharge Medication List [address] [id number] Visit Information Name: SAAD MURRAY [facility] Number: [id number] Visit Date: 02/17/2015 11:51:21 Attending [...] to two if needed. New Routed to [address] [address] lisinopril-hydrochlorothiazide (lisinopril-hydrochlorothiazide 20 mg-25 mg oral tablet) 1 Tablet(s),Oral, once a day (Zestoretic) New Routed to [address] [address] metoprolol (metoprolol succinate 25 mg oral tablet, extended release) 1 Tablet(s), Oral, once a day This is a CHANGE Routed to [address] [address] *pantoprazole (Protonix 40 mg oral [...] of emergency. Electronically Signed By: NORMA SOLIS EKG MONITOR TECH Signed On:17-FEB-2015 11:51:18 Additional Information: Source: [facility] POWERCHART Document Id: [id number] T GUARD Miscellaneous - Wilmer Lomeli, L.P.N. - 02/17/2015 11:15 AM CST Ambulatory Vitals Height Weight Ambulatory Vitals Height Weight Entered On: 02/17/2015 11:15 PLANT GUARD Performed On: 02/17/2015 11:15 PLANT GUARD by WILMER LOMELI LPN Vitals/Ht/Wt Systolic Blood Pressure : 146 mmHg (HI) Diastolic Blood Pressure : 90 mmHg (HI) NIBP Mean : 109 mmHg BP Location : Right upper extremity Blood Pressure Cuff Size : Large Height : 185 cm(Converted to: 6 ft 1 inch(es), 73 inch(es)) WILMER LOMELI LPN - 02/17/2015 11:15 PLANT GUARD Source: [facility] POWERCHART Document Id: [id number] PLANT GUARD!8 T GUARD Miscellaneous - Wilmer Lomeli, L.P.N. - 02/17/2015 11:10 AM CST Health Assessment Health Assessment Entered On: 02/17/2015 11:11 PLANT GUARD Performed On: 02/17/2015 11:10 PLANT GUARD by WILMER LOMELI LPN Health Assessment Complete Health Assessment Complete or Modified : Annual Health Assessment Annual Health Assessment Completed : Yes WILMER LOMELI LPN - 02/17/2015 11:10 PLANT GUARD Nutrition Nutrition Risk Factors by History Adult : None WILMER LOMELI LPN - 02/17/2015 11:10 PLANT GUARD Functional Current Daily Living Assistance : None WILMER LOMELI LPN - 02/17/2015 11:10 PLANT GUARD Dependent Habits Tobacco Use/Currently Using : No Smoking Status : Former smoker Alcohol Use : Yes WILMER LOMELI LPN - 02/17/2015 11:10 PLANT GUARD AUDIT Tool How Often Do You Have A Drink : 2 to 3 times a week How Many Drinks in a Day When Drinking : 3 or 4 Six or More Drinks On One Occassion : Weekly Audit Phase 1 Score : 7 IWLMER LOMELI LPN - 02/17/2015 11:10 PLANT GUARD Psychosocial Domestic Abuse Concerns : None Behavioral Health Screen/Safety Assmt : No Anabaptist Preference : No qualifying data available. WILMER LOMELI LPN - 02/17/2015 11:10 PLANT GUARD Advance Directive Advanced Directives : No Advance Directive Additional Information : No WILMER LOMELI LPN - 02/17/2015 11:10 PLANT GUARD Educ Needs Learning Style Preference Adult Grid Patient : Printed materials, Verbal explanation Family : Printed materials, Verbal explanation WILMER LOMELI LPN - 02/17/2015 11:10 PLANT GUARD Source: [facility] POWERCHART Document Id: [id number] PLANT GUARD!28 T GUARD Miscellaneous - Wilmer Lomeli L.PJefferson - 02/17/2015 11:06 AM CST Adult Area Development Manager Intake/History Adult Area Development Manager Intake/History Entered On: 02/17/2015 11:10 PLANT GUARD Performed On: 02/17/2015 11:06 PLANT GUARD by WILMER LOMELI LPN Intake Chief Complaint [...] kg/m2 WILMER LOMELI LPN - 02/17/2015 11:06 PLANT GUARD General Info Information Given By : Patient Preferred Communication Mode : Verbal Languages : Bulgarian Is Patient Female and 13-50 no hysterectomy : No WILMER LOMELI LPN - 02/17/2015 11:06 PLANT GUARD Subjective Pain Symptoms : Yes WILMER LOMELI LPN - 02/17/2015 11:06 PLANT GUARD Pain Scale Pain Scale Verbal 0-10 : Open WILMER LOMELI LPN - 02/17/2015 11:06 PLANT GUARD Pain Pain Assessment Grid Pain 1 Location : Shoulder Laterality : Left Time Pattern : Intermittent WILMER LOMELI LPN - 02/17/2015 11:06 PLANT GUARD Dependent Habits Tobacco Use/Currently Using : No Smoking Status : Former smoker Alcohol Use : Yes WILMER LOMELI LPN - 02/17/2015 11:06 PLANT GUARD Source: [facility] POWERCHART Document Id: [id number] PLANT GUARD!39 T GUARD documented in this encounter Plan of Treatment Upcoming Encounters Date Type Specialty Care Team Description 02/15/2022 Office Visit Orthopedic Surgery RavinMadyson haq D.O. [address] [place] [phone] (Wo rk) documented as of this encounter Procedures Procedure Name Priority Date/Time Associated Comments Diagnosis LIPID PANEL, S Routine 02/17/2015 11:52 Results f or this AM PLANT GUARD procedure are i n the results section. AUTOMATED Routine 02/17/2015 11:52 Results for this DIFFERENTIAL, B AM PLANT GUARD procedure ar e in the results section. CBC WITH DIFFERENTIAL, Routine 02/17/2015 11:52 R esults for this B AM PLANT GUARD procedure are i n the results section. THYROID-STIMULATING Routine 02/17/2015 11:52 Resu lts for this HORMONE-SENSITIVE AM PLANT GUARD procedure are in (S-TSH) the results section. VITAMIN B12 ASSAY, S Routine 02/17/2015 11:52 Res ults for this AM PLANT GUARD procedure are i n the results section. COMPREHENSIVE Routine 02/17/2015 11:52 Results fo r this METABOLIC PANEL, S/P AM PLANT GUARD procedu re are in the results section. documented in this encounter Results Automated Differential (02/17/2015 11:52 AM PLANT GUARD) P athologist Signature Absolute 6.16 1.70 - POWERCHART Neutrophils 7.00 109L Lymphocytes 2.14 0.90 - POWERCHART 2.90 X109L Monocytes 0.61 0.30 - POWERCHART 0.90 X109L Eosinophils 0.10 0.05 - POWERCHART 0.50 X109L Absolute 0.02 0.00 - POWERCHART Basophil 0.30 X109L Specimen Anatomical Collection Method Collection Time Receive d Time (Source) Location / / Volume Laterality Blood 02/17/2015 11:52 02/17/2015 AM PLANT GUARD 11:52 AM PLANT GUARD Norma E Kardoes FOREST EXAMINER, C.N.P. LAB BLOOD ADD-ON Performing Organization Address City/State/ZIP Code Phon e Number POWERCHART CBC with Differential (02/17/2015 11:52 AM PLANT GUARD) athologist Signature Leukocytes 9.0 3.5 - 10.5 POWERCHART X109L Erythrocytes 5.21 4.32 - POWERCHART 5.72 Q2450L Hemoglobin 16.7 13.5 - POWERCHART 17.5 GDL Hematocrit 48.5 38.8 - POWERCHART 50.0 MCV 93.1 81.2 - POWERCHART 95.1 FL HX RDW 12.3 11.8 - POWERCHART 15.6 Platelet Count 262 150 - 450 POWERCHART X109L HXDifferential? Auto POWERCHART Specimen (Source) Anatomical Collection Method Collection Time Re ceived Time Location / / Volume Laterality Blood 02/17/2015 11:52 AM PLANT GUARD Caridad Adams APRN.N.P. LAB BLOOD ADD-ON Performing Organization Address City/[facility]/ZIP Code Phon e Number POWERCHART Thyroid-Stimulating Hormone-Sensitive (s-TSH) (02/17/2015 11:52 AM PLANT GUARD) athologist Signature TSH 1.68 0.27 - 4.20 POWERCHART (Thyrotropin) MIUL Specimen (Source) Anatomical Collection Method Collection Time Re ceived Time Location / / Volume Laterality Blood 02/17/2015 11:52 AM PLANT GUARD Norma Solis APRN C.N.P. LAB BLOOD ADD-ON Performing Organization Address City/[facility]/ZIP Code Phon e Number POWERCHART (ABNORMAL) CMP (Comprehensive Metabolic Panel) (02/17/2015 11:52 AM PLANT GUARD) [facility] gist Method Time Signature Albumin, S 4.7 [...] POWERCHART MLMINSA eGFR Black/ >60.0 >=60.0 POWERCHART Greenlandic MLMINSA Bilirubin, Total, S 0.6 <=1.2 MGDL POWERCHAR T Total Protein, S 7.4 6.3 - 7.9 POWERCHART GDL Alanine 153 (H) 7 - 55 UL POWERCHART Amniotransferase, LD Specimen (Source) Anatomical Collection Method Collection Time Re ceived Time Location / / Volume Laterality Blood 02/17/2015 11:52 AM PLANT GUARD Norma Solis APRN, C.N.P. LAB BLOOD ADD-ON Performing Organization Address City/State/ZIP Code Phon e Number POWERCHART Vitamin B12 Assay (02/17/2015 11:52 AM PLANT GUARD) athologist Signature Vitamin B12 577 211 - 946 POWERCHART Assay, S PGML Specimen (Source) Anatomical Collection Method Collection Time Re ceived Time Location / / Volume Laterality Blood 02/17/2015 11:52 AM PLANT GUARD Norma Solis APRN, C.N.P. LAB BLOOD ADD-ON Performing Organization Address City/State/ZIP Code Phon e Number POWERCHART (ABNORMAL) Lipid Panel (02/17/2015 11:52 AM PLANT GUARD) P athologist Signature Cholesterol, 250 (H) <=199 [...] for FH and FDB is available throu [facility]: FH/ADH Genetic Reflex [place] el (test ADHP). Acquired (non-genetic) causes of markedly increased LDL cholesterol include cholestatic liver disease due to the presence of LpX. If a genetic form of hypercholesterolemia is suspected, family studies including biochemical testing fo r lipids (total cholesterol,triglycerides, LDL cholesterol and HDL cholesterol) are recommended. ??Please contact the laboratory at or the on-line test catalog at [employer] for information about how to order these danette ts or to speak with a genetic counselor. Further interpretation would require clinical information. Specimen (Source) Anatomical Collection Method Collection Time Re ceived Time Location / / Volume Laterality Blood 02/17/2015 11:52 AM PLANT GUARD Viridiana Adams APRNNJoseline. LAB BLOOD ADD-ON Performing Organization Address City/State/ZIP Code Phon e Number POWERCHART documented in this encounter Visit Diagnoses Not on filedocumented in this encounter
--- OUTSIDE RECORDS SUMMARY | 2022-01-29 04:17 | XMS_ITS | Encounter Summary ---
:1965 Author Organization [facility] Address [address] [place] [address] Care Team Providers Name Role Phone Unavailable [...] How often do you attend pentecostalism or confucianist More than 4 time s [...] at Date Recorded Male 03/25/2018 1:01 PM GENERAL FARM HAND documented as of this encounter Last Filed [...] as of this encounter Progress Notes Norma Slois APRN, C.N.P. - 01/02/2016 8:56 AM CDT [id number] CHIEF COMPLAINT/REASON FOR VISIT Right hip pain. [...] He has not tried any stretching. No career counselor. No heat. He denies any numbness or [...] pressure 140/84, oxygen 97% on room air. Fgurbk124 cm, weight 158.4 kg. BMI is 46.3. [...] SOLIS CNP On: 01/05/2016 07:36 AM Source: [facility] MHSDOLBEYNONRADSYS Document Id: [id number] documented in this encounter Miscellaneous Notes Miscellaneous - Lela Shoemaker - 04/17/2016 3:33 PM CST Norma Palma nurse-Please call back today if possible Document Contains Addenda Addendum by JALEEL TIMMONS RN on April 22, 2016 09:56:58 GENERAL FARM HAND LMTCB Addendum by JALEEL TIMMONS RN on April 19, 2016 08:30:37 GENERAL FARM HAND LMTCB Addendum by JALEEL TIMMONS RN on April 18, 2016 16:18:14 GENERAL FARM HAND LMTCB Addendum by JULIA LAKE RN on April 17, 2016 15:38:16 GENERAL FARM HAND From: JULIA LAKE RN ([facility] Family Medicine Nurse) To: [facility] Nurse; Sent: 04/17/2016 15:38:16 GENERAL FARM HAND Subject: FW: Dr. Olvera - Please call back today if possible From: LELA SHOEMAKER ([facility]) To: [facility] Family Medicine Nurse; Cc: [facility]; Sent: 04/17/2016 15:33:42 GENERAL FARM HAND Subject: Norma Palma nurse-Please call back today [...] within two hours. Thank you for calling [facility]. Source: [facility] POWERCHART Document Id: [id number] Electronically signed by Alice [facility] Lollypop Machine Operator [id number] at 08/25/2016 8:58 AM CDT Miscellaneous - Lakeisha Cassidy L.P.N. - 02/19/2016 12:46 PM GENERAL FARM HAND [place] - Umbilical Hernia Document Contains Addenda Addendum by HETAL JARA RN on February 20, 2016 09:27:50 GENERAL FARM HAND LM informing Pt of consult order. Addendum by DEVORA REY NP on February 19, 2016 21:52:26 GENERAL FARM HAND From: DEVORA REY NP To: [facility]; Sent: 02/19/2016 21:52:26 GENERAL FARM HAND Subject: RE: [place]oes - Umbilical Hernia Consult placed. My deepest sympathy in the loss of his . Please let us know anything else we can do to help. Thanks, HAO Addendum by HETAL JARA RN on February 19, 2016 13:22:19 GENERAL FARM HAND From: HETAL JARA RN ([facility] Medicine Nurse) To: DEVORA REY NP; Sent: 02/19/2016 13:22:19 GENERAL FARM HAND Subject: FW: Efraín - Umbilical Hernia Would [...] CASSIDY LPN on February 19, 2016 13:03:36 GENERAL FARM HAND Patient states that he was seen on [...] be home to help him. # - [phone] - Home, Okay to leave message. # - [phone] - Cell, Okay to leave message. From: LAKEISHA CASSIDY LPN To: A[facility] Family Medicine Nurse; Sent: 02/19/2016 12:46:21 GENERAL FARM HAND Subject: Efraín - Umbilical Hernia Source: [facility] POWERCHART Document Id: [id number] Electronically signed by Alice, [facility] Lollypop Machine Operator [id number] at 08/25/2016 8:58 AM CDT Miscellaneous - Norma Solis APRN, C.N.P. - 01/02/2016 11:18 AM CDT Ambulatory Patient Summary [address] [id number] Visit Information Name: SAAD MURRAY [facility] Number: [id number] Current Date: 01/02/2016 11:18:28 Physicians [...] as directed x 6day(s) New Routed to [address] [address] metoprolol (metoprolol succinate 25 mg oral tablet, [...] you dont have one. Go to [email or web address] and click on Create Your Account. Then, follow the directions to complete the online form. Youll be asked for your [facility] number which you can find at the top of this document. Your Goals/Additional instructions: Source: [facility] POWERCHART Document Id: [id number] Miscellaneous - Norma Solis APRN, C.N.P. - 01/02/2016 11:18 AM CDT Ambulatory Discharge Medication List [address] [id number] Visit Information Name: SAAD MURRAY [facility] Number: [id number] Current Date: 01/02/2016 11:18:27 Attending [...] as directed x 6day(s) New Routed to [address] [address] metoprolol (metoprolol succinate 25 mg [...] of emergency. Electronically Signed By: NORMA SOLIS OPTICIAN APPRENTICE Signed On:02-JAN-2016 11:18:24 Additional Information: Source: [facility] POWERCHART Document Id: [id number] Miscellaneous - Jeannette Gleason L.PNikhilN. - 01/02/2016 8:58 AM CDT Adult Wound Care Technician Intake/History Document Has Been Updated Adult Wound Care Technician Intake/History Entered On: 01/02/2016 9:04 CDT Performed On: 01/02/2016 8:58 CDT by MALINSKI, JEANNETTE MAURICIO MEDICAL STAFF SERVICES COORDINATOR Intake Ambulatory Intake Additional Information : starts [...] Preferred Communication Mode : Verbal Languages : Korean Is Patient Female and 13-50 no [...] GLEASON LPN - 01/02/2016 8:58 CDT [facility] POWERCHART Document Id: [id number] CDT!16 documented in this encounter Plan of Treatment Upcoming Encounters Date Type Specialty Care Team Description 02/15/2022 Office Visit Orthopedic Surgery Madyson Rosa D.ONikhil [address] [place] [phone] (Wo rk) documented as of this encounter Visit Diagnoses Not on filedocumented in this encounter
--- OUTSIDE RECORDS SUMMARY | 2022-01-29 04:17 | XMS_ITS | Encounter Summary ---
:1965 Author Organization [facility] Address [address] [place] [address] Care Team Providers Name Role Phone Unavailable Primary Care Provider Unavailable Encounter Details Date Type Department Care Team Description 02/15/2015 Hospital Encounter HX [facility] Jacob Chun, STEVEN, C.N.P. 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 - 02/15/2015 1:04 PM CST Ambulatory Vitals Height Weight Ambulatory Vitals Height Weight Entered On: 02/15/2015 13:04 PULP BLEACHER Performed On: 02/15/2015 13:04 PULP BLEACHER by GABRIEL LUA RN Vitals/Ht/Wt Peripheral Pulse Rate : 86 /min Systolic Blood Pressure : 156 mmHg (HI) Diastolic Blood Pressure : 92 mmHg (>HHI) NIBP Mean : 113 mmHg BP Location : Right upper extremity Blood Pressure Cuff Size : Large Height : 186 cm(Converted to: 6 ft 1 inch(es), 73 inch(es)) GABRIEL LUA RN - 02/15/2015 13:04 PULP BLEACHER Source: [facility] POWERCHART Document Id: [id number] PULP BLEACHER!9 BLEACHER documented in this encounter Plan of Treatment Upcoming Encounters Date Type Specialty Care Team Description 02/15/2022 Office Visit Orthopedic Surgery Madyson Rosa, D.ONikhil [address] [place] [phone] (Wo rk) documented as of this encounter Visit Diagnoses Not on filedocumented in this encounter
--- OUTSIDE RECORDS SUMMARY | 2022-01-29 04:17 | XMS_ITS | Encounter Summary ---
:1965 Author Organization [facility] Address [address] [place] [address] Care Team Providers Name Role Phone Unavailable Primary Care Provider Unavailable Encounter Details Date Type Department Care Team Description 08/08/2015 Hospital Encounter HX [facility] MAQ[facility] Norma Kenny A PRN, C.N.P. 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
== END 2022-01-25 09:58 | disposition home or self-care (01) ==
LOC: AMB 01-29 04:06
PROVIDERS: Visit Provider Family Medicine
DX: F10.129 Alcohol abuse with intoxication, unspecified (principal); R41.82 Altered mental status, unspecified
CPT/HCPCS: A0425; A0427

== ENCOUNTER 2022-01-25 10:30 | Inpatient (IN) | payer BC, SELFPAY ==
[2022-01-25] VITALS (93 sets, daily range): BP systolic 113–190; BP diastolic 50–156; PULSE 71–160; RESP 16–25; TEMP 36.6–37.2; O2SAT 88–98; BMI 36.9; BMI 47.4
--- NOTE | 2022-01-25 11:05 | CRLHL7_ITS ---
For Patients: As a result of the Century Cures Act, medical imaging exams and procedure reports are released immediately into your electronic medical record. You may view this report before your referring provider. If you have questions, please contact your health care provider. INDICATION: Fall COMPARISON: none TECHNIQUE: A CT volumetric acquisition was performed of the brain without IV contrast. Please note that all CT scans at this facility use dose modulation, iterative reconstruction, and/or weight-based dosing when appropriate to reduce radiation dose to as low as reasonably achievable. FINDINGS: The CT images reveal a normal appearance of the cerebral ventricles and basal cisterns. There is no evidence of intracranial hemorrhage, tissue infarction or mass effect. The mastoid air cells and middle ear cavities are clear. The calvarium appears intact. Mild mucosal thickening noted within the left maxillary sinus. Small mucous retention cyst in the right sphenoid sinus. IMPRESSION: No intracranial hemorrhage. No fracture. Mild pre-existing sinus disease. Please note that all CT scans at this facility use dose modulation, iterative reconstruction, and/or weight-based dosing when appropriate to reduce radiation dose to as low as reasonably achievable. Dictated by Romaine Couch MD @ 01/25/2022 1:03:45 PM (Electronically Signed)
[2022-01-25] MEDS: 0.9 % SODIUM CHLORIDE 1000 ml 1,000 ML IV (11:20)
[2022-01-25] MEDS: dilTIAZem 5 MG/ML inj 20 MG IVP (11:20)
--- NOTE | 2022-01-25 11:31 | ED_ITS ---
HPI - General Adult General Chief complaint: Seizure Stated complaint: Syncope Time Seen by Provider: 01/25/22 11:04 Source: patient Mode of arrival: EMS Limitations: no limitations History of Present Illness HPI narrative: 56-year-old male coming into the ER today after having a seizure at the liquor store this morning. Per EMS and bystanders patient had full body shaking for about 3-4 minutes. He was quite confused once the shaking stopped. He started to clear up only after arriving in the ED. patient states that this is never happened to him before. He complains of pain at the tip of the tongue. He de nies losing control of bladder or bowel when this occurred. He also complains of a headache. He has a history of hypertension and he is on metoprolol, he ran out of hydrochlorothiazide recently so he is not taking that but is supposed to. He does take 6-8 tablets of ibuprofen daily for a knee pain, he recently had a meniscus repair. He denies any drug use. He does drink about a 12 pack daily on Friday and Friday. He did have 6 beers on Friday of this week which he usually does not do. He denies any tobacco use or vaping. He states he has been having headaches for several days now and he has felt short of breath for about 3 days with physical activity which is unusual. He denies any chest pain. He denies any palpitations. He denies abdominal discomfort. He states that he has vomited multiple times over the last several days as well. He denies any fevers or chills. No diarrhea or urinary symptoms such as s frequency, urgency or dysuria. He denies having any withdrawal symptoms from alcohol in the past. No family history of seizure disorder that he is aware of. 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 Has not worked since his knee surgery. He lost his about 6 years ago and that is when he started drinking. That is also when he was put on sertraline. Related Data Home Medications Medication Instructions Recorded Confirmed atorvastatin 20 mg tablet 20 mg PO DAILY 01/25/22 01/25/22 lisinopril 20 mg tablet 20 mg PO DAILY 01/25/22 01/25/22 metoprolol succinate 25 mg 25 mg PO DAILY 01/25/22 01/25/22 tablet,extended release 24 hr sertraline 100 mg tablet 100 mg PO Q24H 01/25/22 01/25/22 Allergies Allergy/AdvReac Type Severity Reaction Status Date / Time No Known Drug Allergies Allergy Verified 01/25/22 10:56 Review of Systems Status of ROS: Reports: 10 or more systems reviewed and unremarkable except as noted in History and below [facility] Medical History (Updated 01/25/22 @ 18:56 by Stoney Zuniga MD) Fatty liver due to alcoholism Gastroesophageal reflux disease Hyperlipidemia Hypertension Hyponatremia Morbid obesity Surgical History (Updated 01/25/22 @ 18:48 by Stoney Zuniga MD) History of umbilical hernia repair History of vasectomy Status post lateral meniscus repair Family History (Updated 01/25/22 @ 18:48 by Stoney Zuniga MD) Father Parkinsons disease Social History (Updated 01/25/22 @ 18:49 by Stoney Zuniga MD) Narrative: 56-year-old male lives with his adult son. 6 years ago when his of cancer. 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 Code status is full. His daughter is healthcare [employer] customer service manager. He does not smoke. He does not use recreational drugs. Heavy alcohol use with a case of beer plus hard alcohol every week Highest level of school completed/degree received: high school graduate Smoking Status: Former smoker Do you use any of these nicotine containing products: None Second hand tobacco smoke exposure: No How often do you have a drink containing alcohol: 4 or more times a week Alcohol type: beer and hard liquor Alcohol type details: vodka/rum and beer How many standard drinks containing alcohol do you have on a typical day: 10 or more How often do you have six or more drinks on one occasion: Weekly AUDIT-C Alcohol total score: 11 Non-prescribed substance use: denies use Caffeine: Yes service: No Exam Narrative: Exam Narrative: GCS is 15. Patient is speaking and breathing without any difficulty. Overweight, well-developed patient in no acute distress. Alert and oriented x3. Answers questions appropriately. Mood and affect are appropriate. Thoughts are goal oriented and rational. No tangential or magical thinking noted. Patient speaks in full sentences without needing to catch their breath. HEENT: Normocephalic atraumatic. Pupils are equally round reactive to light. Extraocular muscles are intact. Conjunctivae are moist without any icterus noted. Moist mucous membranes. Posterior pharynx is normal. Neck is soft without any lymphadenopathy or thyromegaly. No masses are appreciated. Tip of the tongue appears to be bruised, no broken tissue. Cardiovascular: Tachycardic, irregularly irregular rhythm, S1 and S2 are present without any murmurs. Lungs: Clear to auscultation bilaterally no wheezes rhonchi or rales are appreciated. Patient takes deep breaths without any discomfort. Abdomen: Protuberant, Soft and nontender nondistended with normal bowel sounds. No guarding or rebound. Difficult to assess for organomegaly secondary to body habitus. Extremities: Bilateral lower extremities are without edema. Normal DP and PT pulses. Skin: Well perfused without any obvious rashes. Const: Vital Signs, click to edit/add: Vital Signs - 24 hr 01/25/22 10:47 01/25/22 11:04 01/25/22 11:05 Temperature 97.8 F Pulse Rate 160 H Pulse Rate [Right Pulse Oximeter] 160 H Respiratory Rate 20 Blood Pressure 126/88 Blood Pressure [Ri ght Upper Arm] 123/79 Pulse Oximetry 94 92 91 Oxygen Delivery Me thod Room Air Oxygen Flow Rate 01/25/22 11:05 01/25/22 11:15 01/25/22 11:17 Temperature Pulse Rate 148 H 139 H 144 H Pulse Rate [Right Pulse Oximeter] Respiratory Rate Blood Pressure 140/100 H Blood Pressure [Ri ght Upper Arm] Pulse Oximetry 93 94 93 Oxygen Delivery Me thod Oxygen Flow Rate 01/25/22 11:27 01/25/22 11:30 01/25/22 11:31 Temperature Pulse Rate 125 H 127 H 141 H Pulse Rate [Right Pulse Oximeter] Respiratory Rate Blood Pressure 127/80 137/81 Blood Pressure [Ri ght Upper Arm] Pulse Oximetry 93 90 89 Oxygen Delivery Me thod Oxygen Flow Rate 01/25/22 11:37 01/25/22 11:44 01/25/22 11:45 Temperature Pulse Rate 123 H 124 H 135 H Pulse Rate [Right Pulse Oximeter] Respiratory Rate Blood Pressure 116/84 118/92 H Blood Pressure [Ri ght Upper Arm] Pulse Oximetry 89 90 91 Oxygen Delivery Me thod Oxygen Flow Rate 01/25/22 11:47 01/25/22 12:00 01/25/22 12:02 Temperature Pulse Rate 139 H 129 H 137 H Pulse Rate [Right Pulse Oximeter] Respiratory Rate Blood Pressure 133/79 137/75 Blood Pressure [Ri ght Upper Arm] Pulse Oximetry 90 90 89 Oxygen Delivery Me thod Oxygen Flow Rate 01/25/22 12:16 01/25/22 12:17 01/25/22 12:24 Temperature Pulse Rate 129 H 124 H 118 H Pulse Rate [Right Pulse Oximeter] Respiratory Rate Blood Pressure 117/62 Blood Pressure [Ri ght Upper Arm] Pulse Oximetry 94 93 93 Oxygen Delivery Me thod Oxygen Flow Rate 01/25/22 12:30 01/25/22 12:31 01/25/22 12:32 Temperature Pulse Rate 110 H 119 H 108 H Pulse Rate [Right Pulse Oximeter] Respiratory Rate Blood Pressure 128/77 Blood Pressure [Ri ght Upper Arm] Pulse Oximetry 92 94 92 Oxygen Delivery Me thod Oxygen Flow Rate 01/25/22 12:45 01/25/22 13:00 01/25/22 13:04 Temperature Pulse Rate 146 H 130 H 122 H Pulse Rate [Right Pulse Oximeter] Respiratory Rate Blood Pressure Blood Pressure [Ri ght Upper Arm] Pulse Oximetry 88 95 95 Oxygen Delivery Me thod Oxygen Flow Rate 01/25/22 13:08 01/25/22 13:09 01/25/22 13:15 Temperature Pulse Rate 119 H 117 H 129 H Pulse Rate [Right Pulse Oximeter] Respiratory Rate Blood Pressure 138/106 H Blood Pressure [Ri ght Upper Arm] Pulse Oximetry 95 94 95 Oxygen Delivery Me thod Oxygen Flow Rate 01/25/22 13:17 01/25/22 13:30 01/25/22 13:32 Temperature Pulse Rate 128 H 119 H 124 H Pulse Rate [Right Pulse Oximeter] Respiratory Rate Blood Pressure 138/118 H 162/106 H Blood Pressure [Ri ght Upper Arm] Pulse Oximetry 95 94 94 Oxygen Delivery Me thod Oxygen Flow Rate 01/25/22 13:45 01/25/22 13:47 01/25/22 14:00 Temperature Pulse Rate 118 H 135 H 133 H Pulse Rate [Right Pulse Oximeter] Respiratory Rate Blood Pressure 153/98 H Blood Pressure [Ri ght Upper Arm] Pulse Oximetry 94 93 93 Oxygen Delivery Me thod Oxygen Flow Rate 01/25/22 14:02 01/25/22 14:15 01/25/22 14:17 Temperature Pulse Rate 123 H 104 H 122 H Pulse Rate [Right Pulse Oximeter] Respiratory Rate Blood Pressure 121/59 L 166/87 H Blood Pressure [Ri ght Upper Arm] Pulse Oximetry 93 92 93 Oxygen Delivery Me thod Oxygen Flow Rate 01/25/22 14:18 01/25/22 14:30 01/25/22 14:32 Temperature Pulse Rate 128 H 109 H 127 H Pulse Rate [Right Pulse Oximeter] Respiratory Rate Blood Pressure 149/116 H Blood Pressure [Ri ght Upper Arm] Pulse Oximetry 94 94 92 Oxygen Delivery Me thod Oxygen Flow Rate 01/25/22 14:45 01/25/22 14:46 01/25/22 14:47 Temperature Pulse Rate 134 H 130 H 145 H Pulse Rate [Right Pulse Oximeter] Respiratory Rate 20 20 16 Blood Pressure 153/130 H 174/156 H Blood Pressure [Ri ght Upper Arm] Pulse Oximetry 98 96 98 Oxygen Delivery Me thod Oxygen Flow Rate 01/25/22 14:50 01/25/22 14:51 01/25/22 15:01 Temperature Pulse Rate 130 H 133 H 113 H Pulse Rate [Right Pulse Oximeter] Respiratory Rate 25 H Blood Pressure 190/106 H Blood Pressure [Ri ght Upper Arm] Pulse Oximetry 94 93 93 Oxygen Delivery Me thod Oxygen Flow Rate 01/25/22 15:06 01/25/22 15:09 01/25/22 15:15 Temperature Pulse Rate 145 H 116 H 115 H Pulse Rate [Right Pulse Oximeter] Respiratory Rate Blood Pressure 134/94 H Blood Pressure [Ri ght Upper Arm] Pulse Oximetry 93 92 93 Oxygen Delivery Me thod Oxygen Flow Rate 01/25/22 15:17 01/25/22 15:30 01/25/22 15:32 Temperature Pulse Rate 135 H 108 H 134 H Pulse Rate [Right Pulse Oximeter] Respiratory Rate Blood Pressure 139/95 H 128/88 Blood Pressure [Ri ght Upper Arm] Pulse Oximetry 89 91 88 Oxygen Delivery Me thod Oxygen Flow Rate 01/25/22 15:45 01/25/22 15:47 01/25/22 15:48 Temperature Pulse Rate 132 H 107 H 115 H Pulse Rate [Right Pulse Oximeter] Respiratory Rate Blood Pressure 150/98 H Blood Pressure [Ri ght Upper Arm] Pulse Oximetry 90 91 90 Oxygen Delivery Me thod Oxygen Flow Rate 01/25/22 16:00 01/25/22 16:03 01/25/22 16:15 Temperature Pulse Rate 124 H 128 H 137 H Pulse Rate [Right Pulse Oximeter] Respiratory Rate Blood Pressure 149/86 H Blood Pressure [Ri ght Upper Arm] Pulse Oximetry 91 89 94 Oxygen Delivery Me thod Oxygen Flow Rate 01/25/22 16:18 01/25/22 16:30 01/25/22 16:32 Temperature Pulse Rate 137 H 100 117 H Pulse Rate [Right Pulse Oximeter] Respiratory Rate Blood Pressure 130/70 135/92 H Blood Pressure [Ri ght Upper Arm] Pulse Oximetry 89 93 92 Oxygen Delivery Me thod Nasal Cannula Nasal Cannula Oxygen Flow Rate 2 2 01/25/22 16:45 01/25/22 16:47 01/25/22 16:48 Temperature Pulse Rate 98 92 91 Pulse Rate [Right Pulse Oximeter] Respiratory Rate Blood Pressure 150/96 H Blood Pressure [Ri ght Upper Arm] Pulse Oximetry 93 93 94 Oxygen Delivery Me thod Nasal Cannula Nasal Cannula Nasal Cannula Oxygen Flow Rate 2 2 2 01/25/22 17:00 01/25/22 17:02 01/25/22 17:03 Temperature Pulse Rate 90 98 101 H Pulse Rate [Right Pulse Oximeter] Respiratory Rate Blood Pressure 141/117 H Blood Pressure [Ri ght Upper Arm] Pulse Oximetry 94 93 94 Oxygen Delivery Me thod Nasal Cannula Nasal Cannula Nasal Cannula Oxygen Flow Rate 2 2 2 01/25/22 17:15 01/25/22 17:17 01/25/22 17:30 Temperature Pulse Rate 98 85 100 Pulse Rate [Right Pulse Oximeter] Respiratory Rate Blood Pressure 113/87 Blood Pressure [Ri ght Upper Arm] Pulse Oximetry 97 94 94 Oxygen Delivery Me thod Nasal Cannula Nasal Cannula Nasal Cannula Oxygen Flow Rate 2 2 2 01/25/22 17:33 01/25/22 17:34 01/25/22 17:45 Temperature Pulse Rate 94 109 H 104 H Pulse Rate [Right Pulse Oximeter] Respiratory Rate Blood Pressure 115/94 H Blood Pressure [Ri ght Upper Arm] Pulse Oximetry 95 94 96 Oxygen Delivery Me thod Nasal Cannula Nasal Cannula Nasal Cannula Oxygen Flow Rate 2 2 2 01/25/22 17:48 01/25/22 18:00 01/25/22 18:03 Temperature Pulse Rate 109 H 95 88 Pulse Rate [Right Pulse Oximeter] Respiratory Rate Blood Pressure 162/108 H 157/112 H Blood Pressure [Ri ght Upper Arm] Pulse Oximetry 96 94 93 Oxygen Delivery Me thod Nasal Cannula Oxygen Flow Rate 2 01/25/22 18:04 01/25/22 18:15 Temperature Pulse Rate 100 92 Pulse Rate [Right Pulse Oximeter] Respiratory Rate Blood Pressure Blood Pressure [Ri ght Upper Arm] Pulse Oximetry 93 94 Oxygen Delivery Me thod Oxygen Flow Rate Course Course Hospital Course: EKG on arrival, read by me, shows AFib with RVR with a pulse of 168. IV was established and labs were drawn. [place] [address]. Chloride was a little low at 93. Glucose elevated at 163. His lactate is elevated at 3.5. Magnesium low at 1.2. LFTs were abnormal with an elevated AST and ALT, elevated total bilirubin and direct bilirubin. Normal CRP, normal TSH. Urinalysis did show 2+ protein, 2+ ketones, 1+ blood, 1+ bilirubin. Urine drug screen, salicylates, acetaminophen and alcohol were all negative. Negative COVID. Patient received a L and half of normal saline and IV Cardizem 20 mg. His pulse came down into the 150s therefore Cardizem was repeated at 25 mg on his pulse came down into the 1 teens to 120s. The Cardizem drip was started, patient was placed on a CIWA protocol, echocardiogram was ordered. Decision to admit was made-no beds available anywhere nearby, nor at our facility. Multiple facilities were called and we did finally get acceptance at with [facility]. Waiting for bed. Reevaluation(s) Reevaluation #1: At about 4 hours into his ER stay, patient had another seizure. He became rigid and bit his tongue. He was given 1 mg of IV Ativan. He did recover but was postictal with some confusion for several minutes. He maintained his airway without difficulty. Patient was given a dose of phenobarbital and a repeat dose of Ativan. He did not have any repeat seizures while in the ED. We did proceed with an echocardiogram which showed normal LVF. Was a limited exam secondary to his heart rate being in the 150s. Reevaluation #2: Unfortunately the [facility] called back stating that they did not have any beds available after all. A bed opened up at our hospital and Dr. Zuniga graciously accepted the patient for admission. Vital Signs Vital signs: Initial Vital Signs Temperature 97.8 F 01/25/22 10:47 Temperature Source Temporal Artery Scan 01/25/22 10:47 Pulse Rate 160 H 01/25/22 10:47 Pulse Rhythm 01/25/22 10:47 Respiratory Rate 20 01/25/22 10:47 Blood Pressure 123/79 01/25/22 10:47 Blood Pressure Mean 93 01/25/22 10:47 Blood Pressure Position Sitting 01/25/22 10:47 Pulse Oximetry 94 01/25/22 10:47 Oxygen Delivery Method 01/25/22 10:47 Vital Signs Temperature 97.8 F 01/25/22 10:47 Pulse Rate 160 H 01/25/22 10:47 Respiratory Rate 20 01/25/22 10:47 Blood Pressure 123/79 01/25/22 10:47 Pulse Oximetry 94 01/25/22 10:47 Oxygen Delivery Method 01/25/22 10:47 Temperature 98.6 F 01/25/22 18:56 Pulse Rate 83 01/25/22 18:56 Respiratory Rate 18 01/25/22 18:56 Blood Pressure 126/84 01/25/22 18:56 Pulse Oximetry 94 01/25/22 18:56 Oxygen Delivery Method 01/25/22 18:56 Oxygen Flow Rate 2 01/25/22 17:48 Medical Decision Making MDM Narrative Medical decision making narrative: Probable alcohol withdrawal seizure, AFib with RVR. Patient will be admitted for further management. Lab Data Lab results reviewed: Yes I reviewed the patient's lab results Labs: Lab Results 01/25/22 01/25/22 01/25/22 Range/Units 05:19 11:42 11:42 WBC 3.82 L (4.50-11.00) K/uL RBC 4.72 (4.30-5.90) m/uL Hgb 14.8 (13.5-17.5) gm/dL Hct 43.9 (37.0-53.0) % MCV 93 (80-100) fL MCH 31 (26-34) pg MCHC 34 (32-36) gm/dL RDW Coeff of [place] 13.2 (11.5-15.5) % Plt Count 63 L (140-440) K/uL Neut % (Auto) 88.6 H (42.0-72.0) % Lymph % (Auto) 4.5 L (20-44) % [place] % (Auto) 6.0 (0.0-11.0) % Eos % (Auto) 0.3 (0.0-7.0) % Baso % (Auto) 0.3 (0.0-3.0) % Neut # (Auto) 3.40 (1.7-7.0) K/uL Lymph # (Auto) 0.20 L (0.90-2.90) K/uL [place] # (Auto) 0.20 (0.00-0.90) K/UL Eos # (Auto) 0.00 (0.00-0.50) K/uL Baso # (Auto) 0.00 (0.00-0.30) K/uL Abs Immat Gran (auto) 0.01 (0.00-0.30) K/uL INR (0.91-1.10) Sodium 136 (135-149) mmol/L Potassium 4.0 (3.6-5.1) mmol/L Chloride 93 L (96-114) mmol/L Carbon Dioxide 27 (20-32) mmol/L BUN 14 (7-30) mg/dL Creatinine 0.7 (0.5-1.5) mg/dL Estimated Creat Clear 136.34 Estimated GFR 110 ml/min Glucose 163 H (60-115) mg/dL Lactate (0.5-1.9) mmol/L Calcium 8.9 (8.4-10.6) mg/dL Magnesium 1.2 L (1.5-2.6) mg/dL Total Bilirubin 2.7 H (0.1-1.5) mg/dL Direct Bilirubin 1.4 H (0.0-0.5) mg/dL AST 521 H (12-35) U/L ALT 142 H (4-50) U/L Alkaline Phosphatase 133 (40-150) U/L C-Reactive Protein < 0.5 L (0.5-1.0) mg/dL Total Protein 7.5 (6.0-8.3) g/dL Albumin 4.5 (3.3-5.0) g/dL TSH (0.270-4.20) uIU/mL Urine Color (Yellow) Urine Appearance (Clear) Urine pH (5.0-8.5) Ur Specific [place] (1.000-1.030) Urine Protein (Negative) Urine Glucose (UA) (Negative) Urine Ketones (Negative) Urine Blood (Negative) Urine Nitrite (Negative) Urine Bilirubin (Negative) Urine Urobilinogen (0.2-1.0) Ur Leukocyte Esterase (Negative) Urine RBC (0-2) Urine WBC (0-5) Ur Squamous Epith Cells (None-Few) Urine Bacteria (None) Salicylates < 1.0 L (1.0-10) mg/dL Urine Opiates Screen (Negative) Ur Oxycodone Screen (Negative) Urine Methadone Screen (Negative) Ur Propoxyphene Screen (Negative) Acetaminophen < 10.0 L (10.0-30.0) ug/mL Ur Barbiturates Screen (Negative) U Tricyclic Antidepress (Negative) Ur Phencyclidine Scrn (Negative) Ur Amphetamines Screen (Negative) U Methamphetamines Scrn (Negative) U Benzodiazepines Scrn (Negative) Urine Cocaine Screen (Negative) U Marijuana (THC) Screen (Negative) Ur Drug Screen Comment Ethyl Alcohol < 0.01 L (0.01-0.03) % SARS-CoV-2 (PCR) Negative SARS-CoV-2 (Negative) Influenza Type A (PCR) Negative PCR FLU A (Negative) Influenza Type B (PCR) Negative PCR FLU B (Negative) POC Troponin I (0.01-0.04) ng/ml 01/25/22 01/25/22 01/25/22 Range/Units 11:42 11:42 11:42 WBC (4.50-11.00) K/uL RBC (4.30-5.90) m/uL Hgb (13.5-17.5) gm/dL Hct (37.0-53.0) % MCV (80-100) fL MCH (26-34) pg MCHC (32-36) gm/dL RDW Coeff of [place] (11.5-15.5) % Plt Count (140-440) K/uL Neut % (Auto) (42.0-72.0) % Lymph % (Auto) (20-44) % [place] % (Auto) (0.0-11.0) % Eos % (Auto) (0.0-7.0) % Baso % (Auto) (0.0-3.0) % Neut # (Auto) (1.7-7.0) K/uL Lymph # (Auto) (0.90-2.90) K/uL [place] # (Auto) (0.00-0.90) K/UL Eos # (Auto) (0.00-0.50) K/uL Baso # (Auto) (0.00-0.30) K/uL Abs Immat Gran (auto) (0.00-0.30) K/uL INR (0.91-1.10) Sodium (135-149) mmol/L Potassium (3.6-5.1) mmol/L Chloride (96-114) mmol/L Carbon Dioxide (20-32) mmol/L BUN (7-30) mg/dL Creatinine (0.5-1.5) mg/dL Estimated Creat Clear Estimated GFR ml/min Glucose (60-115) mg/dL Lactate 3.5 H (0.5-1.9) mmol/L Calcium (8.4-10.6) mg/dL Magnesium (1.5-2.6) mg/dL Total Bilirubin (0.1-1.5) mg/dL Direct Bilirubin (0.0-0.5) mg/dL AST (12-35) U/L ALT (4-50) U/L Alkaline Phosphatase (40-150) U/L C-Reactive Protein (0.5-1.0) mg/dL Total Protein (6.0-8.3) g/dL Albumin (3.3-5.0) g/dL TSH 1.490 (0.270-4.20) uIU/mL Urine Color (Yellow) Urine Appearance (Clear) Urine pH (5.0-8.5) Ur Specific [place] (1.000-1.030) Urine Protein (Negative) Urine Glucose (UA) (Negative) Urine Ketones (Negative) Urine Blood (Negative) Urine Nitrite (Negative) Urine Bilirubin (Negative) Urine Urobilinogen (0.2-1.0) Ur Leukocyte Esterase (Negative) Urine RBC (0-2) Urine WBC (0-5) Ur Squamous Epith Cells (None-Few) Urine Bacteria (None) Salicylates (1.0-10) mg/dL Urine Opiates Screen (Negative) Ur Oxycodone Screen (Negative) Urine Methadone Screen (Negative) Ur Propoxyphene Screen (Negative) Acetaminophen (10.0-30.0) ug/mL Ur Barbiturates Screen (Negative) U Tricyclic Antidepress (Negative) Ur Phencyclidine Scrn (Negative) Ur Amphetamines Screen (Negative) U Methamphetamines Scrn (Negative) U Benzodiazepines Scrn (Negative) Urine Cocaine Screen (Negative) U Marijuana (THC) Screen (Negative) Ur Drug Screen Comment Ethyl Alcohol (0.01-0.03) % SARS-CoV-2 (PCR) (Negative) Influenza Type A (PCR) (Negative) Influenza Type B (PCR) (Negative) POC Troponin I 0.01 (0.01-0.04) ng/ml 01/25/22 01/25/22 01/25/22 Range/Units 11:42 12:40 12:40 WBC (4.50-11.00) K/uL RBC (4.30-5.90) m/uL Hgb (13.5-17.5) gm/dL Hct (37.0-53.0) % MCV (80-100) fL MCH (26-34) pg MCHC (32-36) gm/dL RDW Coeff of [place] (11.5-15.5) % Plt Count (140-440) K/uL Neut % (Auto) (42.0-72.0) % Lymph % (Auto) (20-44) % [place] % (Auto) (0.0-11.0) % Eos % (Auto) (0.0-7.0) % Baso % (Auto) (0.0-3.0) % Neut # (Auto) (1.7-7.0) K/uL Lymph # (Auto) (0.90-2.90) K/uL [place] # (Auto) (0.00-0.90) K/UL Eos # (Auto) (0.00-0.50) K/uL Baso # (Auto) (0.00-0.30) K/uL Abs Immat Gran (auto) (0.00-0.30) K/uL INR 0.95 (0.91-1.10) Sodium (135-149) mmol/L Potassium (3.6-5.1) mmol/L Chloride (96-114) mmol/L Carbon Dioxide (20-32) mmol/L BUN (7-30) mg/dL Creatinine (0.5-1.5) mg/dL Estimated Creat Clear Estimated GFR ml/min Glucose (60-115) mg/dL Lactate (0.5-1.9) mmol/L Calcium (8.4-10.6) mg/dL Magnesium (1.5-2.6) mg/dL Total Bilirubin (0.1-1.5) mg/dL Direct Bilirubin (0.0-0.5) mg/dL AST (12-35) U/L ALT (4-50) U/L Alkaline Phosphatase (40-150) U/L C-Reactive Protein (0.5-1.0) mg/dL Total Protein (6.0-8.3) g/dL Albumin (3.3-5.0) g/dL TSH (0.270-4.20) uIU/mL Urine Color Yellow (Yellow) Urine Appearance Clear (Clear) Urine pH 8.0 (5.0-8.5) Ur Specific [place] 1.020 (1.000-1.030) Urine Protein 2+ A (Negative) Urine Glucose (UA) Trace A (Negative) Urine Ketones 2+ A (Negative) Urine Blood 1+ A (Negative) Urine Nitrite Negative (Negative) Urine Bilirubin 1+ A (Negative) Urine Urobilinogen 2.0 A (0.2-1.0) Ur Leukocyte Esterase Negative (Negative) Urine RBC 0-2 (0-2) Urine WBC 0-2 (0-5) Ur Squamous Epith Cells None (None-Few) Urine Bacteria None (None) Salicylates (1.0-10) mg/dL Urine Opiates Screen Negative (Negative) Ur Oxycodone Screen Negative (Negative) Urine Methadone Screen Negative (Negative) Ur Propoxyphene Screen Negative (Negative) Acetaminophen (10.0-30.0) ug/mL Ur Barbiturates Screen Negative (Negative) U Tricyclic Antidepress Negative (Negative) Ur Phencyclidine Scrn Negative (Negative) Ur Amphetamines Screen Negative (Negative) U Methamphetamines Scrn Negative (Negative) U Benzodiazepines Scrn Negative (Negative) Urine Cocaine Screen Negative (Negative) U Marijuana (THC) Screen Negative (Negative) Ur Drug Screen Comment See Note Ethyl Alcohol (0.01-0.03) % SARS-CoV-2 (PCR) (Negative) Influenza Type A (PCR) (Negative) Influenza Type B (PCR) (Negative) POC Troponin I (0.01-0.04) ng/ml Imaging Data US - abdomen: Attestation: I have reviewed the pertinent imaging results. Radiologist's impression: Elevated LFTs. TECHNIQUE: Ultrasound abdomen limited. Sonographic images of the right upper quadrant were obtained using bond-scale and color Doppler images. COMPARISON: None. FINDINGS: Limited evaluation due to patient discomfort. : Liver: Heterogeneous appearance of the liver, with mildly increased echotexture. No suspicious masses. No intrahepatic biliary dilation. Gallbladder: No stones or sludge. Normal wall thickness. No pericholecystic fluid. Common bile duct: 6 mm. Pancreas: Not well seen due to overlying bowel gas. Right kidney: Normal in size. Normal echotexture and cortex. No suspicious masses, stones, or hydronephrosis. Vasculature: Proximal abdominal aorta and IVC are unremarkable. IMPRESSION: Heterogeneous liver with increased echotexture suggestive of steatosis. No other sonographic abnormality, within limitations of exam. CT scan - head: Attestation: I have reviewed the pertinent imaging results. Radiologist's impression: A CT volumetric acquisition was performed of the brain without IV contrast. Please note that all CT scans at this facility use dose modulation, iterative reconstruction, and/or weight-based dosing when appropriate to reduce radiation dose to as low as reasonably achievable. FINDINGS: The CT images reveal a normal appearance of the cerebral ventricles and basal cisterns. There is no evidence of intracranial hemorrhage, tissue infarction or mass effect. The mastoid air cells and middle ear cavities are clear. The calvarium appears intact. Mild mucosal thickening noted within the left maxillary sinus. Small mucous retention cyst in the right sphenoid sinus. IMPRESSION: No intracranial hemorrhage. No fracture. Mild pre-existing sinus disease. Critical Care Time Critical Care Time Total Critical Care Time in Minutes: 120 Discharge Plan Discharge Clinical Impression: Seizure, Atrial fibrillation with RVR, Alcohol withdrawal seizure Patient Disposition: Admitted As Inpatient Discharge Location: [facility]
--- OUTSIDE RECORDS SUMMARY | 2022-01-25 11:34 | XMS_ITS | Encounter Summary ---
:1965 Author Organization [facility] Address [address] [place] [address] Care Team Providers Name Role Phone Norma Kenny APRN, C.N.P. Primary Care Provider [phone] Reason for Visit Reason Comments Med Refill Encounter Details Date Type Department Care Team Description 11/18/2021 Refill Department of Physical Medicine Melchor Westbrook D.O. Med Refill and Rehabilitation in [place] [id number] [place] [address] [facility] [address] [place] [address] [phone] Social History Tobacco Use Types Packs/Day Years Used Date Smoking Tobacco: Former Cigarettes 0 Smokeless Tobacco: Never Comments: Quit in 20s.--occasional cigar s Alcohol Use Standard Drinks/Week Comments Yes 0 (1 standard drink = 0.6 oz pure Limits to weekends; Drinks beer or alcohol) mixed drinks. Alcohol Habits Answer Date Recorded How often do you have a drink containing alcohol? 2-3 times a week 03/10/2019 How many drinks containing alcohol do you have on a Not aske d typical day when you are drinking? How often do you have six or more drinks on one Not asked occasion? Social Isolation Answer Date Recorded In a typical week, how many times do you Not asked talk on the phone with family, friends, or neighbors? How often do you get together with friends Once a week 03/10/2019 or relatives? How often do you attend buddhism or hoahaoism More than 4 time s per year 09/17/2018 services? Do you belong to any clubs or organizations No 09/17/2018 such as buddhism groups, unions, fraternal or athletic groups, or school groups? How often do you attend meetings of the 1 to 4 times per yea r 03/10/2019 clubs or organizations you belong to? Are you now , , , Not asked , never or living with a partner? Physical Activity Answer Date Recorded On average, how many days per week do you engage in moderate to 3 days 03/10/2019 strenuous exercise (like walking fast, running, jogging, dancing, swimming, biking, or other activities that cause a light or heavy sweat)? On average, how many minutes do you engage in exercise at th is 40 min 09/17/2018 level? Stress Answer Date Recorded Do you feel stress - tense, restless, nervous, or To some ex tent 09/17/2018 anxious, or unable to sleep at night because your mind is troubled all the time - these days? Financial Resource Strain Answer Date Recorded How hard is it for you to pay for the very basics like Not h kirit at all 09/17/2018 food, housing, medical care, and heating? Intimate Partner Violence Answer Date Recorded Within the last year, have you been afraid of your partner o r No 09/17/2018 ex-partner? Within the last year, have you been humiliated or emotionall y No 09/17/2018 abused in other ways by your partner or ex-partner? Within the last year, have you been kicked, hit, slapped, or No 09/17/2018 otherwise physically hurt by your partner or ex-partner? Within the last year, have you been raped or forced to have Not asked any kind of sexual activity by your partner or ex-partner? Food Insecurity Answer Date Recorded Within the past 12 months, you worried that your food would Never true 09/17/2018 run out before you got money to buy more. Within the past 12 months, the food you bought just didn't N ever true 03/10/2019 last and you didn't have money to get more. Transportation Needs Answer Date Recorded In the past 12 months, has lack of transportation kept you N o 09/17/2018 from medical appointments or from getting medications? In the past 12 months, has lack of transportation kept you N ot asked from meetings, work, or getting things needed for daily living? Education Answer Date Recorded What is the highest level of school you have completed or 12 th grade 09/17/2018 the highest degree you have received? 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 - 11/23/2021 10:52 AM CDT Meloxicam refill Last refill 10/20/21 Last visit 09/28/21 No follow up scheduled documented in this encounter Plan of Treatment Upcoming Encounters Date Type Specialty Care Team Description 02/15/2022 Office Visit Orthopedic Surgery Madyson Rosa il, D.O. [address] [place], [place] [phone] (Wo rk) documented as of this encounter Visit Diagnoses Not on filedocumented in this encounter Additional Health Concerns Assessment Noted Time PHQ-9 Depression Total Score: 4 03/02/2021 10:28 AM CS T documented as of this encounter Care Teams Public Affairs Director Relationship Specialty Start Date End Date Norma Kenny APRN, C.N.P. PCP - General 09/12/[address] [place] [id number] documented as of this encounter
--- OUTSIDE RECORDS SUMMARY | 2022-01-25 11:34 | XMS_ITS | Encounter Summary ---
:1965 Author Organization [facility] Address [address] [place] [address] Care Team Providers Name Role Phone Norma Kenny APRN, C.NGregg Primary Care Provider [phone] Reason for Visit Auth/Cert Specialty Diagnoses / Procedures Referred By Contact Refer red To Contact Diagnoses Tear Knee Meniscus Current Subsequent Left Tear Knee Meniscus Current Subsequent Left [S83.207D] Procedures NC ARTHSC KNE W [facility] RPR MED/LAT ARTHROSCOPY KNEE MENISCUS WITH ROOT REPAIR Referral ID Status Reason Start Date Expiration Date Visits Requ ested Visits Authorized [id number] 1 1 Encounter Details Date Type Department Care Team Description 10/29/2021 Surgery [facility] MAIN OR Hugo Shelton, ARTHROSCOPY KNEE [address] [place] M.D. MENISCUS WITH ROOT [place], [place] [address] REPAIR [phone] [place], [place] [phone] Social History Tobacco Use Types Packs/Day Years [...] or relatives? How often do you attend confucianist or protestant More than 4 time s per year 09/17/2018 services? 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 - 10/29/2021 10:02 AM CDT Important Phone Numbers You May Need After Your Orthopedic Surgery For Emergencies go directly to ER After Hours: Call [facility]: [phone] and ask for Orthopedic Provider Intake Clerk Primary Care Physicians [facility] [place] [phone] [facility]: [phone] After Hours [phone] Additional Numbers Triage Nurse Line- [facility] 8-4:00 pm M-F: [phone] [facility]: [phone] Same Day Surgery [facility]: [phone]: Hours vary: Leave message Physical Therapy: [phone] Billing/Patient Account Services Toll Free: About Your IV Sedation After IV sedation After you have been sedated, it is common to have lapses of memory, slowed reaction time and impaired judgment. For the rest of the day after being sedated: Rest. Do not drive or operate motorized vehicles or equipment. Do not return to work or school. Do not take on responsibility for children or anyone who depends on your care. Do not use exercise equipment or take part in rough play or sports. Do not drink alcoholic beverages. You can resume your usual diet as you feel able. Contacting your health care provider Contact your health care provider if: Any of the side effects continue longer than 24 hours. You notice the following signs of infection: Increased tenderness, redness or swelling at the IV insertion site or an incision. Increased pain or pain not relieved by pain medications. Drainage, bleeding or foul-smelling odor coming from an incision. Temperature of 100.4 degrees Fahrenheit (38 degrees Celsius) or greater. This material is for your education and information only. This content does not replace medical advice, diagnosis or treatment. New medical research may change this information. If you have questions about a medical condition, always talk with your health care provider. ?? 2009 [facility] for Medical Education and Research (MER). All rights reserved. [id number] documented in this encounter Medications at Time of Discharge Medication Sig Dispensed Refills Start Date End Date acetaminophen (TYLENOL) Take 1 tablet (500 mg 120 tablet 0 0 10/29/2021 500 mg tablet total) by mouth every 6 (six) hours as needed for pain. aspirin [address] tablet Take 1 tablet (81 mg 70 tablet 0 total) by mouth 2 (two) times a day. atorvastatin (LIPITOR) Take 1 tablet (20 mg 90 tablet 3 20 mg total) by mouth at tabletIndications: bedtime. NEEDS LABS Hyperlipidemia BEFORE NEXT REFILL lisinopriL Take 1 tablet (20 mg 90 tablet 3 10/05/2021 (PRINIVIL,ZESTRIL) 20 total) by mouth mg tablet daily. LORazepam (ATIVAN) 1 mg Take 1 tablet (1 mg 20 tablet 0 06/2021 tabletIndications: total) by mouth at Anxiety bedtime as needed for anxiety. metoprolol succinate TAKE 1 TABLET(25 MG) 90 tablet 3 10/05 (TOPROL-XL) 25 mg 24 hr BY MOUTH DAILY FOR tabletIndications: BLOOD PRESSURE Palpitations oxyCODONE (ROXICODONE) Indication: Prolonged 30 tablet 0 5 mg immediate release Acute Pain/Traumatic tabletIndications: Injury. Take 1 tab Prolonged Acute for pain 4-6, 2 tab Pain/Traumatic Injury for pain 7-10 every 6 hours as needed pantoprazole (PROTONIX) Take 1 tablet (20 mg 35 tablet 0 12/03/2021 20 mg EC tablet total) by mouth every morning before breakfast. For stomach protection while taking aspirin. sennosides-docusate Take 1 tablet by 30 tablet 0 10/29/2021 11/28/2021 sodium (SENOKOT-S) mouth at bedtime as 8.6-50 mg per tablet needed for constipation (if taking prescription pain medication and no bowel movement in the past 36 hrs.). sertraline (ZOLOFT) 100 TAKE 1 AND 1/2 135 tablet 0 10/24/19 22 01/22/2022 mg tabletIndications: TABLETS(150 MG) BY Anxiety MOUTH DAILY documented as of this encounter OR Notes Op Note - Hugo Shelton M.D. - 10/29/2021 7:59 AM CDT Pre-op Diagnosis Tear Knee Meniscus Current Subsequent Left Post-op Diagnosis Tear Knee Meniscus Current Subsequent Left A high school assistant principal actively participated and was necessary for one or more of the following: opening,exposure and visualization during the case, maintaining hemostasis, wound closure resulting in its safe and expeditious completion. Findings As expected. Complications None Operative Note Narrative The patient was identified in the preoperative holding area, and subsequently the knee was marked. The patient was then brought back to the operating room where they were placed under general anesthetic. At that point the patient was carefully positioned and all bony prominences were well-padded. Nextwe performed a standard prep and drape in standard sterile fashion. Next a surgical pause was performed and all parties were in agreement. At that point the limb was exsanguinated using an Esmarch bandage, and a surgical tourniquet was inflated to 250 millimeters of mercury. At that point we created standard anterior medial anterior lateral working portals to the knee. Upon incising the skin, heme art hrosis under pressure leaked out of the joint. Next, we examined the patellofemoral joint. 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 Additionally on the medial trochlea, there was some grade 2 chondromalacia.Additionally, on the very medial aspect of thepatella, the patient was noted to have a small osteochondral fragment that had broken loose. This measured approximately 3 x 3 mm. Next we examined the medial and lateral gutters which showed no loose debris or peripheral meniscus tears. The scope was then placed into the lateral joint space, where the lateral meniscus the lateral tibial plateau in the lateral femoral condyle all appeared benign. We then placed the scope into the notch, where the ACL and PCL were normal. We then placed the scope into the medial joint space there it was noted that the patient had a tear of the meniscal root. At thatpoint, we proceeded to perform a meniscal root repair. The residual stump of the meniscus was debrided. Next we then passed passport cannula through the medial portal. We then passed a total of 2 FiberLink sutures at the meniscal root using the scorpion. We then used a 6 mm FlipCutter at the anatomic insertion for the posterior horn of the meniscus. Being satisfied with the position, we created a small tunnel a few mm deep. We then passed the tails of the sutures out the anterior cortex of the tibiaand placed a SwiveLock anchor to hold these securely. Excellent stability of the meniscal root was obtained. It was noted that the patient did have some grade 2-3 chondromalacia at the medial joint space as well. There was no exposed bone. At that point all arthroscopic instruments were removed from the joint after all loose debris had been suctioned using the 4 millimeter shaver. Local anesthetic was injected into the joint and the scope portals were closed. We then placed the patient into a standard sterile dressing. Postoperative plan will be to follow standard post meniscal repair rehabilitation protocols. The patient is toe touch weight-bearing for 6 weeks. We will restrict range of motion to90?? of flexion for the 1st 6 weeks. Throughout the case, my care team assistant aided with manipulation of the limb, camera, and wound closure. Hugo Shelton M.D. Brief Op Note - Sanaz Mcallister P.A.-C., M.S. - 10/29/2021 7:59 AM CDT Pre-op Diagnosis Tear Knee Meniscus Current Subsequent Left Post-op Diagnosis Tear Knee Meniscus Current Subsequent Left Findings As expected. Complications None Sanaz Mcallister P.A.-C., M.S. documented in this encounter Plan of Treatment Upcoming Encounters Date Type Specialty Care Team Description 02/15/2022 Office Visit Orthopedic Surgery RavinmuscogeeMadyosn clayton il, D.O. [address] [place] [address] [phone] (Wo rk) documented as of this encounter Procedures Procedure Name Priority Date/Time Associated Diagnosis Comme nts ARTHROSCOPY KNEE 10/29/2021 7:35 AM Tear Knee Meniscus MENISCUS CDT Current Subsequent Left documented in this encounter Visit Diagnoses Diagnosis Tear Knee Meniscus Current Subsequent Le ft - Primary Tear Knee Meniscus Current Subsequent Le ft documented in this encounter Admitting Diagnoses Diagnosis Tear Knee Meniscus Current Subsequent Le ft documented in this encounter Administered Medications Inactive Administered Medications - up to 3 most recent administrations Medication Order MAR Action Action Date Dose Rate Site bupivacaine-EPINEPHrine (PF) 0.5 Given 10/29/2021 9:13 AM CDT 30 mL %-1:200,000 injection (MARCAINE w/EPI) As needed, Starting on Fri10/29/21 at 0913, Intra-Op lactated ringers New Bag 10/29/2021 8:51 AM CDT 20 mL/hr, intravenous, Continuous, Starting on Fri10/29/21 at 0715, Pre-Op New Bag 10/29/2021 7:25 AM CDT metoprolol tartrate tablet 12.5 mg Given 10/29/2021 6:41 AM CDT 12.5 mg (LOPRESSOR) 12.5 mg, oral, Once as needed, if patient did not take their last scheduled dose of beta francsi prior to arrival, Starting on Fri10/29/21 at 0633, For 1 dose, Pre-Op, Do not give if patient does not take scheduled beta blockers, if patient is receiving intravenous vasopressors or inotropes, if heart rate is less than 50 beats per minute, if systolic blood pressure is less than 90 mmHg or if diastolic blood pressure is less than 40 mmHg, or if patient has an allergy to metoprolol. sodium chloride 0.9 % injection 10 mL 10 mL, intravenous, As needed, line care , Starting on Fri10/29/21 at 0633, Pre-Op, Peripheral Intravenous Catheter and Rapid Infusion Cat heter, prior to blood sampling, post blood transfusion or post blood samplin g sodium chloride 0.9 % injection 3 mL 3 mL, intravenous, As needed, line care, Starting on Fri10/29/21 at 0633, Pre-Op, Prior to and following infusion and betw een multiple consecutive infusions: sodium chloride 0.9 % injection sodium chloride 0.9 % injection 3 mL 3 mL, intravenous, Every 12 hours scheduled, First dos e on Fri10/29/21 at 0900, Pre-Op, Peripheral Intravenous Catheter and Rapid Infu katlyn Catheter, when no infusion to maintain patency traMADoL tablet 100 mg (ULTRAM) 100 mg, oral, Every 6 hours PRN, severe pain or score 7-10 of 10, Starting on Fri10/29/21 at 0935, PACU & Post-Op, First li ne therapy or for pain greater than comfort goal (not to exceed 400 mg in 24 hours). traMADoL tablet 50 mg (ULTRAM) 50 mg, oral, Every 6 hours PRN, moderate pain or score 4-6 of 10, Starting on Fri10/29/21 at 0935, PACU & Post-Op, First line therapy documented in this encounter Active and Recently Administered Medications Times are shown in CDT. Scheduled Medication Order 10/27/2021 10/28/2021 10/29/2021 acetaminophen tablet 1,000 mg (TYLENOL) 0715 (Due) 1,000 mg, oral, Once, On Fri10/29/21 at 0715, For 1 dose, Pre-Op aspirin chewable tablet 81 mg 81 mg, oral, 2 times daily, First dose on Fri10/29/21 at 2100 ceFAZolin injection 3 g (ANCEF) (COMPLETED) 0745 (Given - Provider: Andres Light APRN, JUNE) 3 g, intravenous, Once, On Fri10/29/21 at 0645, For 1 dose, Intra-Op, Administer within 1 hour prior to surgical incision If needed, reconstitute vial per package insert instructions. See IVAG for admini stration guidelines. , Drug Monitoring P rogram: Pharmacist to adjust medication dosing based on indication and drug clearance factors., Indications: Prophylaxis, surgical lidocaine 10 mg/mL (1 %) injection 1 mL (XYLOCAINE) 0715 (Due) 1 mL, infiltration, Once, On Fri10/29/21 at 0715, For 1 dose, Pre-Op, May admin up to 1 mL at the site of IV site if not allergic to lidocaine sodium chloride 0.9 % injection 3 mL 0900 (Due) 3 mL, intravenous, Every 12 hours schedu led, First dose on Fri10/29/21 at 0900, Pre-Op, Peripheral Intravenous Catheter and Rapid Infusion Catheter, when no infusion to maintain patency sodium chloride 0.9 % injection 3 mL 0900 (Due) 3 mL, intravenous, Every 12 hours schedu led, First dose on Fri10/29/21 at 0900, Pre-Op, Peripheral Intravenous Catheter and Rapid Infusion Catheter, when no infusion to maintain patency Continuous Medication Order 10/27/2021 10/28/2021 10/29/2021 lactated ringers 0725 (New Bag - Provider: Andres Light APRN, JUNE)0851 (New Bag - Provider: Andres Light APRN, JUNE)0921 (Anesthesia Volume Adjustment - Provider: Andres Light APRN, JUNE) 20 mL/hr, intravenous, Continuous, Starting on Fri10/29/21 at 071 5, Pre-Op PRN Medication Order 10/27/2021 10/28/2021 10/29/2021 bupivacaine-EPINEPHrine (PF) 0.5 %-1:200 ,000 injection (MARCAINE w/EPI) (CANCELED) 0913 (Given - Provid er: Sanaz Mcallister P.A.-C., M.S.) As needed, Starting on Fri10/29/21 at 0913, Intra-Op dexAMETHasone injection 4 mg (DECADRON) 4 mg, intravenous, Once as needed, nause a, vomiting, Starting on Fri10/29/21 at 0935, For 1 dose, PACU & Post-Op, Give only if NOT given during the pre or intraoperative period. If ondansetron ordere d, give dexamethasone with first dose of ondansetron. fentaNYL injection 25 mcg (SUBLIMAZE) 25 mcg, intravenous, Every 2 min PRN, Fo r pain 4 or greater (maximum 100 mcg). If max dose of Fentanyl is reached and if pain is greater than 4, discontinue Fentanyl: give Hydromorphone, Starting on Fri10/29/21 at 0935, PACU (only) haloperidol lactate injection 1 mg (HALDOL) 1 mg, intravenous, Every 6 hours PRN, na usea, vomiting, Starting on Fri10/29/21 at 0935, For 48 hours, PACU & Post-Op, Total of 3 doses in 24 hour period. RASS must be -2 or higher to administer. Radha ssess for nausea or vomiting after at le ast 10 minutes. If nausea or vomiting persists administer next ordered antiemetic medications (order for antiemetic medication administration ondansetron then haloperidol then promethazine) HYDROmorphone injection 0.2 mg (DILAUDID) 0.2 mg, intravenous, Every 5 min PRN, mo derate pain or score 4-6 of 10, severe pain or score 7-10 of 10, Starting on Fri10/29/21 at 0935, PACU (only), Up to maximum total dose of 2 mg meperidine (PF) injection 12.5 mg (DEMEROL) 12.5 mg, intravenous, Every 2 min PRN, s hivering, May repeat once, Starting on Fri10/29/21 at 0935, For 2 doses, PACU (only), Restriction Criteria (Pharmacy will review and approve if criteria met): Prevention or treatment of post- anesthesia shivering metoprolol tartrate tablet 12.5 mg (LOPRESSOR) (COMPLETED) 0641 (Given - Provider: Nadya Francois R.N.) 12.5 mg, oral, Once as needed, if patien t did not take their last scheduled dose of beta francis prior to arrival, Starting on Fri10/29/21 at 0633, For 1 dose, Pre-Op, Do not give if patient does not nikita e scheduled beta blockers, if patient is receiving intravenous vasopressors or inotropes, if heart rate is less than 50 beats per minute, if systolic blood pressure is less than 90 mmHg or if diastolic blood pressure is less than 40 mmHg, or if patient has an allergy to metoprolol. naloxone injection 0.2 mg 0.2 mg, intravenous, As needed, respirat ory depression, Starting on Fri10/29/21 at 0935, For RASS Score -4 or less, respiratory rate of less than 8 breaths/min. Notify provider/service and rapid response team (if available at institution). ondansetron (PF) injection 4 mg (ZOFRAN) 4 mg, intravenous, Every 6 hours PRN, na usea, vomiting, Starting on Fri10/29/21 at 0935, For 48 hours, PACU & Post-Op, Reassess for nausea or vomiting after at least 10 minutes. If nausea or vomiting persists administer next ordered antiem etic medications (order for antiemetic medication administration ondansetron then droperidol then promethazine). promethazine injection 6.25 mg (PHENERGAN) 6.25 mg, intravenous, Every 6 hours PRN, nausea, vomiting, Starting on Fri10/29/21 at 0935, For 48 hours, PACU & Post-Op, RASS must be -2 or higher to administer. Reassess for nausea/vomiting after a t least 10 minutes. If nausea or vomitin g persists administer next ordered antiemetic medications (order for antiemetic medication administration ondansetron then droperidol then promethazine). sodium chloride 0.9 % injection 10 mL 10 mL, intravenous, As needed, line care , Starting on Fri10/29/21 at 0633, Pre- Op, Peripheral Intravenous Catheter and Rapid Infusion Catheter, prior to blood sampling, post blood transfusion or post blood sampling sodium chloride 0.9 % injection 10 mL 10 mL, intravenous, As needed, line care , Starting on Fri10/29/21 at 0708, Pre- Op, Peripheral Intravenous Catheter and Rapid Infusion Catheter, prior to blood sampling, post blood transfusion or post blood sampling sodium chloride 0.9 % injection 3 mL 3 mL, intravenous, As needed, line care, Starting on Fri10/29/21 at 0633, Pre-Op, Prior to and following infusion and between multiple consecutive infusions: sodium chloride 0.9 % injection sodium chloride 0.9 % injection 3 mL 3 mL, intravenous, As needed, line care, Starting on Fri10/29/21 at 0708, Pre-Op, Prior to and following infusion and between multiple consecutive infusions: sodium chloride 0.9 % injection traMADoL tablet 100 mg (ULTRAM)(Linked Group 1) 100 mg, oral, Every 6 hours PRN, severe pain or score 7-10 of 10, Starting on Fri10/29/21 at 0935, PACU & Post-Op, First line therapy or for pain greater than comfort goal (not to exceed 400 mg in 24 hours). traMADoL tablet 50 mg (ULTRAM)(Linked Group 1) 50 mg, oral, Every 6 hours PRN, moderate pain or score 4-6 of 10, Starting on Fri10/29/21 at 0935, PACU & Post-Op, First line therapy Linked Groups Order Group 1: traMADoL tablet 50 mg (ULTRAM)Jump to med 50 mg, oral, Every 6 hours PRN, moderate pain or score 4-6 of 10, Starting on Fri10/29/21 at 0935, PACU & Post-Op
First line therapy
Or traMADoL tablet 100 mg (ULTRAM)Jump to med 100 mg, oral, Every 6 hours PRN, severe pain or score 7-10 of 10, Starting on Fri10/29/21 at 0935, PACU & Post-Op
First line therapy or for pain greater than comfort goal (not to exceed 400 mg in 24 hours).
documented in this encounter Additional Health Concerns Assessment Noted Time PHQ-9 Depression Total Score: 4 03/02/2021 10:28 AM CS T documented as of this encounter Care Teams District Plant Supervisor Relationship Specialty Start Date End Date Norma Kenny, STEVEN, C.N.P. PCP - General 09/12/[address] [place] [address] documented as of this encounter
--- OUTSIDE RECORDS SUMMARY | 2022-01-25 11:34 | XMS_ITS | Encounter Summary ---
:1965 Author Organization [facility] Address [address] [place] [address] Care Team Providers Name Role Phone Norma Kenny APRN, C.N.P. Primary Care Provider [phone] Reason for Visit Reason Comments Nurse Visit Knee immobilizer broke and n eeds to be fitted for a new immobilizer Encounter Details Date Type Department Care Team Description 11/26/2021 Nurse Only Department of Urology Chase Kenny APRN, C.N.P. [address] [place] [address] Nurse Visit ([place]nee in [place] R, R.N. [address] [place] [phone] immobilizer maria g and [place] needs to be fitted for [address] a new immobilizer) [place] [phone] Social History Tobacco Use Types Packs/Day Years [...] or relatives? How often do you attend orthodoxy or adventism More than 4 time s per year 09/17/2018 services? 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 - 11/26/2021 11:15 AM CDT Received call from Paula Zamudio PT at [facility] asking if we could fit pt for new knee immobilizer since pt's broke. Pt had arthroscopy knee meniscus with root repair surgery on 10/29/[address] Shelton. Pt presents for visit wearing knee immobilizer set at 0-90 degrees. Pt states a plastic piece broke off during the night on the immobilizer that he has been wearing for 4 weeks. Obtained new knee immobilizer and pt fitted it and applied and set for 0-90 degrees. Zahira from PTdepartment did assist with fitting. Pt declines signing the Home Going Equipment form stating, why do I have to be responsible for payment of another when it only last 4 weeks. [facility] notified. Pt states the immobilizer feels comfortable and stable. Pt discharged to home. Pt will follow up with Dr. Rosa as scheduled on 12/07/21. documented in this encounter Plan of Treatment Upcoming Encounters Date Type Specialty Care Team Description 02/15/2022 Office Visit Orthopedic Surgery Madyson Rosa D.O. [address] [place], [place] [phone] (Wo rk) documented as of this encounter Visit Diagnoses Not on filedocumented in this encounter Additional Health Concerns Assessment Noted Time PHQ-9 Depression Total Score: 4 03/02/2021 10:28 AM CS T documented as of this encounter Care Teams Youth Officer Relationship Specialty Start Date End Date Norma Kenny APRN, C.N.P. PCP - General 09/12/[address] [place] [phone] documented as of this encounter
--- OUTSIDE RECORDS SUMMARY | 2022-01-25 11:34 | XMS_ITS | Encounter Summary ---
:1965 Author Organization [facility] Address [address] [place] [address] Care Team Providers Name Role Phone Norma Kenny APRN, C.NNikhilPNikhil Primary Care Provider [phone] Reason for Visit Physical Therapy (Routine) - Authorized Specialty Diagnoses / Procedures Referred By Contact Refer red To Contact Diagnoses Arthroscopy Knee Status [facility] O[facility]oing treatment [address] [place] [address] Referral ID Status Reason Start Date Expiration Date Visits V isits Requested Authorized [id number] Authorized 11/01/2021 03/30/2022 99 99 Encounter Details Date Type Department Care Team Description 11/26/2021 Clinical Support Department of Physical Ha Shelton M.D. [address] [place] [address] Arthroscopy Knee Medicine and Paula Isaacs P, P.TNikhil [address] [place] [phone] Status Post Rehabilitation in [facility] ([facility] [place], [place] [address] [place] [phone] Social History Tobacco Use Types Packs/Day Years [...] or relatives? How often do you attend gnosticism or rastafari More than 4 time s per year 09/17/2018 services? 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 - 11/26/2021 10:45 AM CDT Physical Therapy Outpatient Treatment Note SUBJECTIVE Patient's Name: Saad Murary Referring Provider: Hugo Shelton M.D. Visit Diagnosis: 1. Arthroscopy Knee Status Post Onset Date: 10/29/21 Payor: [facility] / Plan: [facility] / Product Type: EPO / No data recorded Epic Visit Count: 5 Diagnostic Tests: MR KNEE LEFT WITHOUT IV CONTRAST IMPRESSION: 1. Tear of the medial meniscus posterior root attachment. 2. Marginal chondral loss with associated marrow signal abnormality in the medial tibiofemoral compartment. Small focus of high-grade chondral loss in the medial femoral condyle posterior weightbearing zone. 3. Focal full-thickness cartilage loss in the inferior central trochlea. 4. Intact cruciate and collateral ligaments. No lateral meniscus tear. 5. Moderate knee joint effusion DX KNEE LEFT 4+ VIEWS COMPARISON: 07/17/2021 FINDINGS: There is a small knee joint effusion. No fracture or destructive lesion is identified. There is mild narrowing of the medial compartment. Remaining compartments are preserved. Incidentally visualized right knee on the AP, PA, and sunrise views is unremarkable except for soft tissue swelling and edema at the knee. On the left there is no significant interval change compared with 07/17/2021. IMPRESSION: Small effusion with mild narrowing the medial compartment of the left knee. Specimen Collected: 10/22/21 10:28 CDT Precautions Weight Bearing Status: TTWB and limit ROM 0-90 degrees with knee brace on. 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 Patient reports he was fine at the time, but the next day his knee was swollen and pain increased. Patient did receive an cortisone injection to trial for management. Patient reports about 2-3 weeks back his dog knocked his crutch out from under him resulting in him falling and experiencing increased pain. Patient proceeded with surgery as soon as able to. Family/Caregiver Present: Yes Patient/Caregiver Goals: Return to prior level of function Patient comments: Patient's daughter is present and she is an RN. Patient reports Friday night during the night he caught the brace and somehow broke off the top bracket. He utilized a zip tie to secure the strap so he can continue to safely use it. Patient reports he has not had any issues in the past day since it happened, but patient is supposed to wear the brace 24 hrs/ day for the next 2 weeksbefore follow-up with the MD. Patient indicates no significant change otherwise noticed. He continues to function with TTWB and knee brace limited to 90 degrees. Patient continues to perform the home exercise program regularly. Contact monitoring: PPE used during therapy: Therapist was wearing the following PPE throughout entire session: surgicalmask and eye protection Patient was wearing a mask during therapy session: yes Family member/caregiver present was wearing a mask: yes Additional Staff Present During Session: none OBJECTIVE Pain: 0/10 Observation/Inspection: Patient is a pleasant 55 yo male who presents today wearing his knee brace set at 0-90 degrees. Patient has a zip tie in place to secure top bracket and strap on the brace remains in place. As a result, the tension on the strap is different pulling the top of the brace inward or anteriorly causing a different angle on the force through the knee. Patient observed to utilize TTWB status with transfers with knee flexed and heel off of the ground. Balance/Posture/Physical Status: Patient remains fair - good with stability when in right lower extremity weight bearing position Mobility/Transfers: Patient is SBA with all mobility performed today including sit <>stand from chair, plinth, wc. Patient utilizes his hands safely to perform transfers. Gait/Stairs: Patient ambulates with FWW and SBA for safety with verbal cues for left lower extremity. Circumference measurements: Left (cm) Right (cm) Joint line Not measured secondary to dressing in place and contraindicated at this time. 56.3 cm Range of Motion: Range of Motion: Left Right Knee Flexion AROM: 78? PROM: ?? AROM: 121 ?? PROM: ?? Knee Extension AROM: 25?? PROM: ?? AROM: 0 ?? PROM: ?? Strength: Left Right Knee Flexion: 3+/5 5/5 Knee Extension: 3+/5 5/5 Ortho Exam Measures - Tools Knee Injury and Osteoarthritis Outcome Score Joint Replacement (KOOS JR) Scores Raw summed score: 24 Total Interval Score: 24.875 TREATMENT Treatment today consisted of: Therapeutic Activity: Review updated walking status per Dr. Weinberg with status clarification on weight bearing status. Patient was advance to partial weight bearing status and reviewed transfers and sit to stand and stand to sit with correct strategies. Review patient extending his left leg for heel touch in upright position. Patient cautioned to avoid rotational mechanism with transfers as he remains vulnerable at this time. Patient to utilized staggered feet strategy with left lower extremity ahead to limit weight through is left lower extremity. Patient able to perform correct strategies x 5 today. Outpatient Orthopedic office contacted on behalf of the patient and patient was advised to come to the office for a new brace. Home Exercise Program/Education: Initiate Home Exercise program with current restrictions in place: Quad set, ham set, glut set, ankle pumps, and straight leg raises with Assistance and while maintaining brace one 11/02/21: SAQ, Seated hip flexion and Seated LAQ 11/13/21: Standing left hip abduction, flexion, and extension. Provide Tubigrip stocking for patient's left leg to trial. 11/26/21: Maintain current Home Exercise program. Progress patient with weight bearing status as limited with use of AD and to make an effort to straighten his left leg when in stance for knee extension. Yattos: Access Code: [email or web address] Patient reports good HEP compliance. Assessment Clinical Impression: Patient returns to physical therapy for follow-up visit for left knee meniscal repair. Patient demonstrates safe transfers with appropriate restriction with mobility and is able toperform independently. Patient is able to manage WC independently within the department. Overall patient is progressing per the protocol safely and functioning within the restrictions. Patient would continue to benefit from physical therapy at this time to continue to progress and monitor patient withrecovery of strength and range of motion is left lower limb as his restrictions allow and was advised to schedule following his next MD appointment. Functional Goals and Timeframes: PT Goal #1: Patient is able to transfer himself independently in/out of vehicles to make his appointments PT Goal #1 Date: 11/16/21 PT Goal #1 Status: Slowly progressing PT Goal #2: Patient is able to transfer himself in/out of chair independently with appropriate weight bearing restrictions safely. PT Goal #2 Date: 11/16/21 PT Goal #3: Patient is able to ambulate in a reciprocal pattern with or without assistive device to return to prior level of independence. PT Goal #3 Date: 11/30/21 PT Goal #3 Status: Ongoing PT Goal #4: Patient is able to ambulate on varied surfaces and step onto equipment independently to be able to meet needs of his job safely. PT Goal #4 Date: 12/14/21 PT Goal #4 Status: Ongoing Plan Plan for next session: Patient to schedule after his next follow-up appointment with ortho to progress patient safely per the protocol with new restrictions. Patient to go to outpatient orthopedic office for a new knee brace secondary to broken bracket on his current brace. Time Spent with Patient Therapeutic Interventions Therapeutic Activity (min): 17 min Time Tracking Total Timed Units (min): 17 min Total Treatment Time (min): 17 min documented in this encounter Plan of Treatment Upcoming Encounters Date Type Specialty Care Team Description 02/15/2022 Office Visit Orthopedic Surgery Madyson Rosa, D.ONikhil [address] [place], [place] [phone] (Wo rk) documented as of this encounter Visit Diagnoses Diagnosis Arthroscopy Knee Status Post - Primary documented in this encounter Additional Health Concerns Assessment Noted Time PHQ-9 Depression Total Score: 4 03/02/2021 10:28 AM CHI T documented as of this encounter Care Teams Winch Derrick Operator Relationship Specialty Start Date End Date Norma Kenny, STEVEN, C.N.P. PCP - General 09/12/[address] [place] [phone] documented as of this encounter
--- OUTSIDE RECORDS SUMMARY | 2022-01-25 11:34 | XMS_ITS | Encounter Summary ---
:1965 Author Organization [facility] Address [address] [place] [address] Care Team Providers Name Role Phone Norma Kenny APRN, C.N.P. Primary Care Provider [phone] Encounter Details Date Type Department Care Team Description 10/29/2021 Ancillary Procedure Department of General Surgery Social History Tobacco Use Types Packs/Day Years [...] or relatives? How often do you attend methodist or scientology More than 4 time s per year 09/17/2018 services? 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 [address] [place], [place] [phone] (Wo rk) documented as of this encounter Procedures Procedure Name Priority Date/Time Associated Diagnosis Comme nts GENERAL SURGERY Routine 10/29/2021 4:25 AM Result s for this IMAGE EXAM CDT procedure are i n the results section. documented in this encounter Results General Surgery Image Exam-General Surgery Image Exam (10/29/2021 4:25 AM CDT) Specimen (Source) Anatomical Location Collection Method / Collectio n Time Received Time / Laterality Volume Narrative IIMS - 10/29/2021 9:35 AM CDT This order has been created and auto-finalized to support the import of images acquired without order. The clini fletcher documentation to support these images can be found on the encounter felicita t produced images. Provider Not In System IMG NON RAD IMAGING PROCEDUR ES Performing Organization Address City/State/ZIP Code Phon e Number IIMS IIMS NA documented in this encounter Visit Diagnoses Not on filedocumented in this encounter Additional Health Concerns Assessment Noted Time PHQ-9 Depression Total Score: 4 03/02/2021 10:28 AM CS T documented as of this encounter Care Teams Cloth Examiner Relationship Specialty Start Date End Date Norma Kenny APRN, C.N.P. PCP - General 09/12/[address] [facility] [phone] documented as of this encounter
--- OUTSIDE RECORDS SUMMARY | 2022-01-25 11:34 | XMS_ITS | Encounter Summary ---
:1965 Author Organization [facility] Address [address] [place] [address] Care Team Providers Name Role Phone Norma Kenny APRN, C.NNikhilPNikhil Primary Care Provider [phone] Reason for Referral Physical Therapy (Routine) - Closed Specialty Diagnoses / Procedures Referred By Contact Refer red To Contact Diagnoses Tear Knee Meniscus Current Subsequent Left Sanaz Mcallister P.A.-C., [facility] Procedures PT Evaluate and treat M.S. [address] [place] [address] Referral ID Status Reason Start Date Expiration Date Visits Requ ested Visits Authorized [id number] Closed 10/29/2021 10/29/2022 1 1 Reason for Visit Auth/Cert Specialty Diagnoses / Procedures Referred By Contact Refer red To Contact Diagnoses Tear Knee Meniscus Current Subsequent Left Tear Knee Meniscus Current Subsequent Left [S83.207D] Procedures [place] [facility] MED/LAT ARTHROSCOPY KNEE MENISCUS WITH ROOT REPAIR Referral ID Status Reason Start Date Expiration Date Visits Requ ested Visits Authorized [id number] 1 1 Encounter Details Date Type Department Care Team Description 10/29/2021 Hospital Encounter [facility] OR Hugo Shelton, Tear Knee Meniscus [address] M.D. Current Subsequent [place], [place] [address] [facility] [address] [place], [place] [phone] Social History Tobacco Use Types Packs/Day [...] or relatives? How often do you attend yazdanism or tenriism More than 4 time s per year 09/17/2018 services? 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: [phone] After Hours [phone] Additional Numbers Triage Nurse Line- [facility] 8-4:00 pm M-F: [phone] [facility]: [phone] Same Day Surgery [facility]: [phone]: Hours vary: Leave message Physical Therapy: [phone] Billing/Patient Account Services Toll Free: About Your [...] with your health care provider. ?? 2009 [employer] ([employer]). All rights reserved. [id number] documented in this encounter Medications at Time [...] hrs.). sertraline (ZOLOFT) 100 TAKE 1 AND /2 135 tablet 0 10/24/19 22 01/22/2022 mg tabletIndications: TABLETS(150 MG) BY Anxiety MOUTH DAILY documented as of this encounter OR Notes Op [place] - Hugo Shelton M.D. - 10/29/2021 7:59 AM CDT Pre-op Diagnosis Tear Knee Meniscus Current Subsequent Left Post-op Diagnosis Tear Knee Meniscus Current Subsequent Left A faculty i on call medical assistant actively participated and was necessary for one [...] 1st 6 weeks. Throughout the case, my cataloging assistant aided with manipulation of the limb, [...] 02/15/2022 Office Visit Orthopedic Surgery Madyson Rosa D.ONikhil [address] [place] [phone] (Wo rk) documented as of this encounter Procedures Procedure Name Priority Date/Time Associated Diagnosis Comme nts ARTHROSCOPY KNEE 10/29/2021 7:35 AM Tear Knee Meniscus MENISCUS CDT Current Subsequent Left documented in this encounter Visit Diagnoses Diagnosis Tear Knee Meniscus Current Subsequent Le ft - Primary documented in this encounter Admitting Diagnoses Diagnosis Tear Knee Meniscus Current Subsequent Le ft documented in this encounter Administered Medications Inactive Administered Medications - up to 3 most recent administrations Medication Order MAR Action Action Date Dose Rate Site lactated ringers New Bag 10/29/2021 8:51 AM [...] admini stration guidelines. , Drug Monitoring P veronika: Pharmacist to adjust medication dosing based on [...] Volume Adjustment - Provider: Andres Light APRN, RAIL TRACK MAINTAINER) 20 mL/hr, intravenous, Continuous, Starting on Fri10/29/21 [...] must be -2 or higher to administer. [place] ssess for nausea or vomiting after at [...] documented as of this encounter Care Teams Sound Recordist Relationship Specialty Start Date End Date Norma Kenny, STEVEN, C.N.P. PCP - General 09/12/[address] [place] [address] documented as of this encounter
--- OUTSIDE RECORDS SUMMARY | 2022-01-25 11:34 | XMS_ITS | Encounter Summary ---
:1965 Author Organization [facility] Address [address] [place] [address] Care Team Providers Name Role Phone Norma Kenny APRN, C.NNikhilPNikhil Primary Care Provider [phone] Reason for Visit Physical Therapy (Routine) - Authorized Specialty Diagnoses / Procedures Referred By Contact Refer red To Contact Diagnoses Arthroscopy Knee Status [facility] Ongoing treatment [address] [place] [address] Referral ID Status Reason Start Date Expiration Date Visits V isits Requested Authorized [id number] Authorized 11/01/2021 03/30/2022 99 99 Encounter Details Date Type Department Care Team Description 11/02/2021 Clinical Support Department of Physical Ha Shelton M.D. [address] [place] [address] Arthroscopy Knee Medicine and Paula Isaacs P, P.TNikhil [address] [place] [phone] Status Post Rehabilitation in [facility] [place] [address] [place] [phone] Social History Tobacco Use Types Packs/Day Years [...] or relatives? How often do you attend baptist or pentecostalism More than 4 time s per year 09/17/2018 services? 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 - 11/02/2021 12:45 PM CDT Physical Therapy Outpatient Treatment Note SUBJECTIVE Patient's Name: Saad Murray Referring Provider: Hugo Shelton M.D. Visit Diagnosis: 1. 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 Patient indicates he did not sleepwell last night but he never has slept well therefore he is not concerned. Patient reports he feels like the swelling is down throughout his left lower extremity and his pain is better managed. Patient complains of brace tension through his calf region. Patient indicates he is ambulating with use of forward walker more effectively. Patient also has wheelchair now he has access to at home to permit him to be more mobile for demands such as work. In general patient is pleased with progress he has madein 2 days. Contact monitoring: PPE used during therapy: Therapist was wearing the following PPE throughout entire session: surgicalmask and eye protection Patient was wearing a mask during therapy session: yes Family member/caregiver present was wearing a mask: yes Additional Staff Present During Session: none OBJECTIVE Pain: Patient reports his knee is not feeling bad today, but no formal rating taken. Patient complains of posterior calf symptoms directly under strap of the knee brace and in the muscle belly of his calf. Observation/Inspection: Patient is a pleasant 55 yo male who presents today wearing his knee brace set at 0-90 degrees. Patient has on his faith wrap on compressing his leg with no complaints at this time. Balance/Posture/Physical Status: Patient remains fair with stability when in right lower extremity weight bearing position Mobility/Transfers: Patient is SBA with all mobility performed today including sit <>stand from chair, plinth, wc. Patient did require min A x 1 to clear his left lower extremity onto the table/bed with transfer Gait/Stairs: Patient ambulates with FWW and SBA for safety see Training below Palpation: Increased symptoms with palpation of the right medial gastroc head, directly under the strap of the brace. Circumference measurements: Left (cm) Right (cm) Joint [...] 24.875 TREATMENT Treatment today consisted of: Therapeutic Exercise: Review home exercise with the patient including straight leg raise requiring some assistance as observed patient having knee extension leg. X 10 Introduce short arc quads with can x 10 Perform seated hip flexion march with goal of no assistance of hands to encourage increased core stability alternating x 10 Seated long arc quads again upright posture with no use of hands x 10 Therapeutic Functional Activity: Review transfers with patient including sit to supine and supine tosit for further independence of transitioning with left lower extremity and brace on. Review specifically safety of standing to sit with cues to sq himself up to avoid potential risk falls. Review use wheelchair and purpose to further assist patient with returning to work and meeting his demands safely. Gait Training: With height adjustment made for forward walker review short distance ambulation with encouragement for left lower extremity swing through. In addition encourage patient to remain uprightsupporting weight through his right lower extremity and Education on toe-touch versus weight-bearing. Home Exercise Program/Education: Initiate Home Exercise program with current restrictions in place: Quad set, ham set, glut set, ankle pumps, and straight leg raises with Assistance and while maintaining brace one 11/02/21: SAQ, Seated hip flexion and Seated LAQ [facility]: Access Code: [email or web address] Patient reports good HEP compliance. Assessment Clinical Impression: Patient returns to physical therapy for follow-up visit for left knee meniscal repair. Patient is able to demonstrate improved mobility overall with transfers as well as bed mobility with better managed pain. Patient continues to demonstrate some deficits with quad strength as he observed leg with straight leg raise as he attempts to perform independently. Patient benefits from walker hree fitting and adjustments as he is now able to clear his left lower extremity more efficiently requiring less energy and remain safer and more stable. Patient would continue to benefit from physical therapy at this time to continue to progress and monitor patient with recovery of strength and r sohail of motion is left lower limb. In addition patient benefits from Education for strategies being utilize to remain as independent as possible. Functional Goals and Timeframes: PT Goal #1: [...] 12/14/21 PT Goal #4 Status: Ongoing Plan Physical Therapy Attestation Statement: Patient agrees with the plan of care and goals. Plan: Continue with current plan Plan for next session: Continue to assess patient's response to treatment and monitor functional mobility as well as safety. Continue to progress patient with exercises for left lower extremity including multiplane straight leg raises for optimal outcome. Time Spent with Patient Therapeutic Interventions Gait Training (min): 8 min Therapeutic Activity (min): 18 min Therapeutic Exercise (min): 18 min Time Tracking Total Timed Units (min): 44 min Total Treatment Time (min): 44 min documented in this encounter Plan of Treatment Upcoming Encounters Date Type Specialty Care Team Description 02/15/2022 Office Visit Orthopedic Surgery RavinMadyson haq D.ONikhil [address] [place], [place] [phone] (Wo rk) documented as of this encounter Visit Diagnoses Diagnosis Arthroscopy Knee Status Post - Primary documented in this encounter Additional Health Concerns Assessment Noted Time PHQ-9 Depression Total Score: 4 03/02/2021 10:28 AM CS T documented as of this encounter Care Teams Armature Coil Winder Relationship Specialty Start Date End Date Norma Kenny APRN, C.N.P. PCP - General 09/12/[address] [place] [phone] documented as of this encounter
--- OUTSIDE RECORDS SUMMARY | 2022-01-25 11:34 | XMS_ITS | Encounter Summary ---
:1965 Author Organization [facility] Address [address] [place] [address] Care Team Providers Name Role Phone Norma Kenny APRN, C.N.P. Primary Care Provider [phone] Encounter Details Date Type Department Care Team Description 10/29/2021 Clinical Communication Department of Bess Randhawa Orthopedic Surgery in D, R.N. 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 - 10/29/2021 9:26 AM CDT FMLA paperwork for the patients daughter, Violeta, filled out and given to the provider to sign. documented in this encounter Plan of Treatment Upcoming Encounters Date Type Specialty Care Team Description 02/15/2022 Office Visit Orthopedic Surgery Madyson Rosa, D.O. [address] [place], [place] [phone] (Wo rk) documented as of this encounter Visit Diagnoses Not on filedocumented in this encounter Additional Health Concerns Assessment Noted Time PHQ-9 Depression Total Score: 4 03/02/2021 10:28 AM CS T documented as of this encounter Care Teams Board Lining Machine Operator Relationship Specialty Start Date End Date Norma Kenny, STEVEN, C.N.P. PCP - General 09/12/[address] [place] [address] documented as of this encounter
--- OUTSIDE RECORDS SUMMARY | 2022-01-25 11:34 | XMS_ITS | Encounter Summary ---
:1965 Author Organization [facility] Address [address] [place] [address] Care Team Providers Name Role Phone Norma Kenny APRN, C.N.P. Primary Care Provider [phone] Reason for Visit Reason Comments Post-op Follow-up Encounter Details Date Type Department Care Team Description 12/07/2021 Office Visit Department of Ceferino Rosa, Tear Knee Meniscus Orthopedic Surgery in D.O. Current Subsequent Left [facility] [place] [facility] [address] [place] (Primary Dx) [address] [place] [phone] Social History Tobacco Use Types Packs/Day Years [...] or relatives? How often do you attend caodaism or caodaism More than 4 time s per year 09/17/2018 services? 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 - 12/07/2021 10:00 AM CDT SUBJECTIVE CHIEF COMPLAINT/REASON FOR VISIT Follow up left knee arthroscopy with medial meniscal root repair by Dr. Shelton DOS: 10/29/2021 HISTORY OF PRESENT ILLNESS Saad Murray is a 55 y.o. who returns today for follow up left knee meniscal root repair. He has been continuing to make progress after surgery. He has been having some difficulty with his hinged knee brace especially with that slipping off. He has been wearing a knee sleeve, as well as elastic sleeve over his thigh that has been helping. He has continued to use a walker and has been mostly toe-touch weight-bearing on his operative extremity. He is having little to no pain OBJECTIVE PHYSICAL EXAMINATION General: Patient alert and oriented, no acute distress Left lower extremity: Incisions well healed, no erythema Mild to moderate swelling about the knee Range of motion from 0 to about 100?? Sensation intact to light touch throughout extremity Distal extremity warm well perfused EHL/FHL/TA/GSC grossly intact ASSESSMENT / PLAN IMPRESSION: 6 weeks status post left knee arthroscopy with meniscal root repair, doing well PLAN: Patient continues to make progress. He is to continue appropriately on the meniscal root repair protocol. He will continue to work with PT and progress per protocol. He can start to progress to weight-bearing as tolerated, and also can start to wean off the walker and cane as tolerated. Can alsostart to wean out of the TROM brace as well. Discussed with patient to let pain be his guide. Still d o not want him to do any deep flexion load-bearing type activity. I will see him back in 6 weeks for3 month follow-up visit. Ceferino Rosa D.O. documented in this encounter Plan of Treatment Upcoming Encounters Date Type Specialty Care Team Description 02/15/2022 Office Visit Orthopedic Surgery Madyson Rosa D.O. [address] [place], [place] [phone] (Wo rk) documented as of this encounter Visit Diagnoses Diagnosis Tear Knee Meniscus Current Subsequent Le ft - Primary documented in this encounter Care Teams Fast Food Assistant Restaurant Manager Relationship Specialty Start Date End Date Norma Kenny APRN, C.N.P. PCP - General 09/12/[address] [place] [phone] documented as of this encounter
--- OUTSIDE RECORDS SUMMARY | 2022-01-25 11:34 | XMS_ITS | Encounter Summary ---
:1965 Author Organization [facility] Address [address] [place] [address] Care Team Providers Name Role Phone Norma Kenny APRN, C.N.P. Primary Care Provider [phone] Reason for Visit Reason Comments Post-op Knee artgroscopy meniscus wi th root repair Follow-up Knee artgroscopy meniscus wi th root repair Encounter Details Date Type Department Care Team Description 11/12/2021 Office Visit Department of Chriss Weinberg, Tear Knee Meniscus Orthopedic Surgery in M.D. Current Subsequent [place], [facility] [address] [facility] Left (Primary Dx) [address] [place] [phone] Social History Tobacco Use Types Packs/Day [...] or relatives? How often do you attend druze or hinduism More than 4 time s per year 09/17/2018 services? 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 - 11/12/2021 10:00 AM CDT SUBJECTIVE CHIEF COMPLAINT/REASON FOR VISIT Follow up left knee arthroscopy with medial meniscal root repair by Dr. Shelton DOS: 10/29/2021 HISTORY OF PRESENT ILLNESS Saad Murray is a 55 y.o. who returns today for follow up left knee surgery. Overall doing well. Is using a walker for gait aid and wearing his knee brace appropriately. No issues or concerns,notes the pain is already dramatically improved from where he was prior surgery. Very happy with his continued progress. OBJECTIVE PHYSICAL EXAMINATION Exam of left knee and lower extremity notes clean incisions all healing well no erythema minimal residual fullness about the knee. Motion 0-90 comfortably. Distally intact gross neurovascular status. ASSESSMENT / PLAN IMPRESSION: 2 weeks status post left knee arthroscopy with meniscal root repair, doing PLAN: He is making excellent progress. He is continue appropriately on the meniscal root repair protocol. He will continue to work with PT and progress per protocol and per his progress. Sutures will be removed today. He will continue to complete 30 days of the DVT prophylaxis with aspirin b.i.d. follow up next with Dr. Shelton around 6 weeks postop documented in this encounter Plan of Treatment Upcoming Encounters Date Type Specialty Care Team Description 02/15/2022 Office Visit Orthopedic Surgery Madyson Rosa, D.ONikhil [address] [place], [place] [phone] (Wo rk) documented as of this encounter Visit Diagnoses Diagnosis Tear Knee Meniscus Current Subsequent Le ft - Primary documented in this encounter Additional Health Concerns Assessment Noted Time PHQ-9 Depression Total Score: 4 03/02/2021 10:28 AM CS T documented as of this encounter Care Teams Campus Wellness Coordinator Relationship Specialty Start Date End Date Norma Kenny, STEVEN, C.N.P. PCP - General 09/12/[address] [place] [phone] documented as of this encounter
--- OUTSIDE RECORDS SUMMARY | 2022-01-25 11:34 | XMS_ITS | Encounter Summary ---
:1965 Author Organization [facility] Address [address] [place] [address] Care Team Providers Name Role Phone Norma Kenny APRN, C.N.P. Primary Care Provider [phone] Encounter Details Date Type Department Care Team Description 11/05/2021 Clinical Communication Department of Bess Randhawa Orthopedic Surgery in [place], R[place]N. [address] [phone] [phone] Social History Tobacco Use Types Packs/Day Years [...] or relatives? How often do you attend denominational or oriental orthodox More than 4 time s per year 09/17/2018 services? 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 - 11/05/2021 11:31 AM CDT [place] paperwork for the patients daughter, Violeta, filled out and signed by the provider. Scanned intochart. Faxed to [facility] at [phone]. Copy emailed to Violeta at . documented in this encounter Plan of Treatment Upcoming Encounters Date Type Specialty Care Team Description 02/15/2022 Office Visit Orthopedic Surgery Madyson Rosa, D.ONikhil [address] [place], [place] [phone] (Wo rk) documented as of this encounter Visit Diagnoses Not on filedocumented in this encounter Additional Health Concerns Assessment Noted Time PHQ-9 Depression Total Score: 4 03/02/2021 10:28 AM CS T documented as of this encounter Care Teams Tool Programmer Relationship Specialty Start Date End Date Norma Kenny APRN, C.N.P. PCP - General 09/12/[address] [place] [phone] documented as of this encounter
--- OUTSIDE RECORDS SUMMARY | 2022-01-25 11:34 | XMS_ITS | Encounter Summary ---
:1965 Author Organization [facility] Address [address] [place] [address] Care Team Providers Name Role Phone Norma Kenny APRN, C.NNikhilPNikhil Primary Care Provider [phone] Reason for Visit Physical Therapy (Routine) - Authorized Specialty Diagnoses / Procedures Referred By Contact Refer red To Contact Diagnoses Arthroscopy Knee Status [facility] Ongoing treatment [address] [place] [phone] Referral ID Status Reason Start Date Expiration Date Visits V isits Requested Authorized [id number] Authorized 11/01/2021 03/30/2022 99 99 Encounter Details Date Type Department Care Team Description 11/06/2021 Clinical Support Department of Physical Ha Shelton M.D. [address] [place] [phone] Arthroscopy Knee Medicine and Paula Isaacs P, P.TNikhil [address] [place] [phone] Status Post [facility] [place] [address] [place] [phone] Social History Tobacco Use Types Packs/Day Years [...] or relatives? How often do you attend orthodox or gnosticism More than 4 time s per year 09/17/2018 services? 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 - 11/06/2021 9:15 AM CDT Physical Therapy Outpatient Treatment Note SUBJECTIVE Patient's Name: Saad Murray Referring Provider: Hugo Shelton M.D. Visit Diagnosis: 1. Arthroscopy Knee Status Post Payor: [facility] / Plan: [facility] / Product Type: EPO / No data recorded Epic Visit Count: 3 Diagnostic Tests: MR KNEE LEFT WITHOUT IV [...] was putting out bags on trees for [place] season and stepped over a large log [...] with surgery as soon as able to. Patient/Caregiver Goals: Return to prior level of function Patient comments: Patient's daughter is present and she is an RN. Patient reports he is functioning better than last week. Patient has his system set up at home utilizing wheelchair out in his garage to access outdoors and be mobile and is environment. Patient utilizes forward walker for short distances in toe- touch weight-bearing status. Patient indicates his brace is very cumbersome and uncomfortable but overall his pain has been well managed. Patient indicates he is sleeping better and is able tosleep in his bed at the current time transferring himself in and out safely. Patient reports his symptoms overall are better managed with and feels as though decreased edema throughout his knee region and lower extremity. Patient reports he still is challenged with straight leg raise home exercise butis improving from where he was last week. Contact monitoring: PPE used during therapy: Therapist was wearing the following PPE throughout entire session: surgicalmask and eye protection Patient was wearing a mask during therapy session: yes Family member/caregiver present was wearing a mask: yes Additional Staff Present During Session: none OBJECTIVE Pain: no formal rating taken. Since extending the length of the knee brace patient indicates symptoms have been better throughout his calf region. Observation/Inspection: Patient is a pleasant 55 yo male who presents today wearing his knee brace set at 0-90 degrees. Patient has on his faith wrap on compressing his leg with no complaints at this time. Balance/Posture/Physical Status: Patient remains fair - good with stability when in right lower extremity weight bearing position Mobility/Transfers: Patient is SBA with all mobility performed today including sit <>stand from chair, plinth, wc. Patient reminded of weight-bearing restrictions several x Gait/Stairs: Patient ambulates with FWW and SBA for safety with verbal cues to remain patient toe-touch weight-bearing left lower extremity Palpation: no symptoms provoked in the right medial gastroc head. Circumference measurements: Left (cm) Right (cm) Joint [...] Exercise: Review home exercise with the patient and progress In sitting hip flexion abduction adduction over 5 in high object for consistency of range of motion and core stabilization x 10 bilateral Introduce right side with pain straight leg raise/abduction x 10 Introduced prone hip extension x 10 Introduce prone knee flexion/hamstring curl x 10 with limited range of motion as tolerated NuStep 6:00 with limited knee flexion, use of upper extremities to maintain limited weight through left lower extremity but encourage increased hip motion for the patient. Home Exercise Program/Education: Initiate Home Exercise program with current restrictions in place: Quad set, ham set, glut set, ankle pumps, and straight leg raises with Assistance and while maintaining brace one 11/02/21: SAQ, Seated hip flexion and Seated LAQ Medbridge: Access Code: [email or web address] Patient reports good HEP compliance. Assessment Clinical Impression: Patient returns to physical therapy for follow-up visit for left knee meniscal repair. Patient is able to demonstrate improved mobility overall with transfers as well as bed mobility with managed pain. Patient is able to demonstrate exercises today without provocation of symptoms,and good quad recruitment. Overall patient is progressing towards his goals at this time with increasing independence at home under his current restrictions while maintaining safe mobility. Patient would continue to benefit from physical therapy at this time to continue to progress and monitor patientwith recovery of strength and range of motion is left lower limb as his restrictions allow. Functional Goals and Timeframes: PT Goal #1: [...] Status: Ongoing Plan Plan for next session: Continue to assess patient's response to treatment and monitor functional mobility as well as safety. Continue to progress patient with exercises within restrictions for optimal outcome. Time Spent with Patient Therapeutic Interventions Therapeutic Exercise (min): 35 min Time Tracking Total Timed Units (min): 35 min Total Treatment Time (min): 35 min documented in this encounter Plan of Treatment Upcoming Encounters Date Type Specialty Care Team Description 02/15/2022 Office Visit Orthopedic Surgery Madyson Rosa, Jarad.ONikhil [address] [place], [place] [phone] (Wo rk) documented as of this encounter Visit Diagnoses Diagnosis Arthroscopy Knee Status Post - Primary documented in this encounter Additional Health Concerns Assessment Noted Time PHQ-9 Depression Total Score: 4 03/02/2021 10:28 AM CS T documented as of this encounter Care Teams Tromper Relationship Specialty Start Date End Date Norma Kenny APRN, C.N.P. PCP - General 09/12/[address] [place] [phone] documented as of this encounter
--- OUTSIDE RECORDS SUMMARY | 2022-01-25 11:34 | XMS_ITS | Encounter Summary ---
:1965 Author Organization [facility] Address [address] [place] [address] Care Team Providers Name Role Phone Norma Kenny APRN C.NNikhilPNikhil Primary Care Provider [phone] Reason for Visit Auth/Cert Specialty Diagnoses / Procedures Referred By Contact Refer red To Contact Diagnoses Tear Knee Meniscus Current Subsequent Left Tear Knee Meniscus Current Subsequent Left [S83.207D] Procedures [place] ARTHSC KNE [facility] [place] [facility]/LAT ARTHROSCOPY KNEE MENISCUS WITH ROOT REPAIR Referral ID Status Reason Start Date Expiration Date Visits Requ ested Visits Authorized [id number] 1 1 Encounter Details Date Type Department Care Team Description 10/29/2021 Anesthesia Event [facility] MAIN OR Andres Light APRN, JUNE [address] [place] [address] [place] Rubén Mosley APRN, NUTTER UP [address] [place] [address] [place] [address] Anesthesia Record Procedure Summary Procedure Name Responsible Anesthesia Start Anesthesia Stop Anesthesiologist Time Time ARTHROSCOPY KNEE Andres Light, 10/29/21 0736 10/29/21 0926 MENISCUS WITH ROOT ORDER DEPARTMENT SUPERVISORJUNE Weston REPAIR (Left: Knee) Events Date Time Event Comment 10/29/2021 0707 0731 Block Start Documented by nu rsing staff 0733 Block End Documented by nu rsing staff 0736 An Start Machine/Equipmen t Checked Infection Precautions Foll owed Procedure/Site Verified NPO Sta tus Verified Supine Standard ASA Mon itors Applied 0739 An Induction 0741 An Intubation 0744 Turnover to Proceduralist 0758 An Tourn Inflated LLE 300mmHg 0759 Proc Start 912 Proc Fin 0914 An Tourn Deflated 09 Turnover to ANE Staff 09 Airway Removal Criteria Met 09 Extubation/Airway Removed 09 an stop data 0926 An End I completed my h andoff to the receiving staff during [facility] we 1. Identified the patient 2. Ident ified the responsible provider 3. Revi ewed the pertinent medical history 4. Discussed the surgical course 5. Review ed intra-op anesthesia management and i ssues during anesthesia 6. Set expectati ons for post-procedure period 7. Allowe d opportunity for questions and ac knowledgement of understanding. Name Total midazolam 1 mg/mL injection 2 mg fentanyl injection 50 mcg/mL 100 mcg lidocaine 2% (mg) injection 40 mg propofol 10 mg/mL 200 mg phenylephrine 100 mcg/mL injection 150 mcg ePHEDrine PF 5 mg/mL syringe injection 10 mg ondansetron 4 mg/2 mL injection 4 mg ceFAZolin injection 3 g (ANCEF) 3 g ropivacaine PF 0.5% injection 20 mL dexamethasone 4 mg/mL injection 4 mg ketamine 10 mg/mL injection 50 mg HYDROmorphone 1 mg/mL injection 1 mg ketorolac 30 mg injection 15 mg lactated ringers 1,100 mL Agents No agents on file. Blood No blood administrations on file. Lines, Drains, and Airways Type Details Placement Removal Scope Sites 10/29/21; 08; Knee; 10/29/21 0820 by 1; Left, Mid, Distal; Carmen Babcock, R.N. 2; Left, Proximal, Mid; 3; Left, Mid, Lower; xeroform, 4x4's, padding, faith bandage Peripheral IV Placement Date: 10/29/21701 by 10/29/21 1036 b y 10/29/21; Placement Nadya Francois Brockwa y, Julie T, Time: 701; Catheter R.N. R.N. Size: 20 G; Orientation: Anterior, Left, Lower, Proximal; Location: Forearm; Site Prep: Chlorhexidine (Preferred); Technique: Anatomical landmarks; Inserted by: Viridiana Light NUTTER UP; Insertion Attempts: 1; Removal Date: 10/29/21; Removal Time: 1036; Removal Reason: Per order Supraglottic Airway Placement Date: 10/29/21740 by 10/29/21 09 17 by 10/29/21; Placement Andres Light Christopher Time: 740 (created via T, ORDER DEPARTMENT SUPERVISOR, NUTTER UP T, ORDER DEPARTMENT SUPERVISOR, NUTTER UP procedure documentation); Mask Ventilation: Not attempted; Brand: i-gel; Size: 5; Removal Date: 10/29/21; Removal Time: 916 documented in this encounter Social History Tobacco Use Types Packs/Day Years [...] or relatives? How often do you attend jehovah's witness or evangelical More than 4 time s per year 09/17/2018 services? 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 Responsible Provider: Andres Light APRN, CRNA Anesthesia Type: general ASA Status: 3 Anesthesia Type: general Last vitals Vitals Value Taken Time BP 130/74 10/29/21 1000 Temp 36.8 ??C 10/29/21 0925 Pulse 79 10/29/21 1000 Resp 14 10/29/21 1000 SpO2 95 % 10/29/21 1000 Vitals shown include unvalidated device data. Please reference Vitals flowsheet for most recent vital signs. Anesthesia Post Evaluation Patient Disposition: dismissal Cardiovascular status: hemodynamics (HR & BP) acceptable Respiratory status: patent airway with spontaneous effort Temperature: normothermic Oxygen requirements: room air Level of consciousness: awake Pain score: pain adequately controlled and/or at baseline Post Op nausea/vomiting: none Hydration status: euvolemic Anesthesia Procedure Notes - Andres Light APRN, CRNA - 10/29/2021 8:07 AM CDTAssociated Order(s): Regional Block Regional Block Date/Time: 10/29/2021 7:32 AM Performed by: Andres Light APRN, CRNA Authorized by: Andres Light APRN, CRNA Location: Pre Op / PACU PROCEDURE DETAILS: Block Indication: post-op pain block Block indication comment: Post-Op pain block at request of surgeon Block Type - Lower extremity: adductor canal Positioning: supine Laterality: left Block technique: ultrasound guided Ultrasound image guidance used to localize target, identify at risk structures, and dynamically usedto direct therapy to the target. Procedure was performed under sterile conditions.Image(s) acquired and saved Injection technique: single injection Needle type: echogenic Gauge: 20G Length: 10 Test dose: yes- negative test dose Incremental injection of local anesthetic with aspiration every:5cc Pain with needle advancement or injection of local anesthetic: no Injected Medications: Injection(s), anesthetic agent(s) and/or steroid; See MAR Comments: Comments: Requested by Dr. Shelton UNIVERSAL PROTOCOL All relevant documentation and testing were reviewed and available. All required blood products, implants, devices and or special equipment were made available as applicable. Pre-procedure verificationwas conducted and the correct site was marked if required. A fire risk assessment was done as applicable. The procedural time-out to verify correct patient, correct side/site, and procedure was conducted prior to performing the procedure and confirmed in a procedural pause. PRE-PROCEDURE DETAILS: Appropriate hand hygiene, gown, cap, mask, protective eyewear, sterile gloves, skin preparation, sterile drape, and strict aseptic technique were utilized as applicable for the procedure.: yes Skin prep: chlorhexidine / alcohol SEDATION / ANESTHESIA Anesthesia method: local infiltration Local infiltrate type: lidocaine POST-PROCEDURE DETAILS: Procedure completed successfully: successful procedure Other complications: none Anesthesia Procedure Notes - Andres Light APRN, CRNA - 10/29/2021 7:48 AM CDTAssociated Order(s): Airway Airway Date/Time: 10/29/2021 7:41 AM Performed by: Andres Light APRN, CRNA Authorized by: Andres Light APRN, CRNA Patient location during procedure: OR / Procedure Area PROCEDURE DETAILS: Mask difficulty assessment: not attempted Final airway type: supraglottic airway Laryngeal Manipulation: no Supraglottic device: igel Supraglottic device size: 5 Adult device size: 5 Number of attempt to successful placement: 1 Airway confirmation: bilateral breath sounds, positive ETCO2 and bilateral chest rise Other previous techniques attempted: none PRE PROCEDURE DETAILS: Pre evaluation for airway management: procedure Urgency: elective Preop assessment of probable difficulty: questionable / suspicious difficult airway Preoxygenation: bag valve mask SEDATION / ANESTHESIA Anesthesia method: anesthesia POST PROCEDURE DETAILS: Procedure outcome: successful Airway event: no complications Anesthesia Preprocedure Evaluation - Andres Light APRN, CRNA - 10/29/2021 6:52 AM CDT Patient fell in shower this morning. Patient hit his head (front right) and bit his tongue on the front left side, mild bruising, mucosa intact. No complaints from patient in regards to neurological symptoms or cervical issues. Discussed with Dr. Shelton, decision made to proceed. Preprocedure Anesthesia & H&P Assessment Procedure Summary Date/Time: 10/29/21729 Procedure: ARTHROSCOPY KNEE MENISCUS WITH ROOT REPAIR (Left) Diagnosis: Tear Knee Meniscus Current Subsequent Left [S83.207D] Pre-op diagnosis: Tear Knee Meniscus Current Subsequent Left [S83.207D] Location: [address] Surgeons: Hugo Shelton M.D. Pertinent components of the patient's history including current problem list, medical history, surgical history, family history, social history, medications and allergies were reviewed. Present illnessand pre-op diagnosis were confirmed. The planned surgery / procedure was verified with the patient /legal guardian. The patient's general health condition remains unchanged RELEVANT COMORBID CONDITIONS CV (+) Hypertension Essential Primary GENETICS (+) Hypercholesterolemia MSK/RHEUM (+) Tear Knee Meniscus Current Subsequent Left GI (+) Gastroesophageal Reflux Disease ID (+) Acute Lower Respiratory Infection Due To COVID-19 Nervous (+) Pain Low Back Chronic Circulatory (+) Palpitations Other (+) Body Mass Index 40.0 To 44.9 Adult (HCC) (+) Pain Hip Right (+) Pain Shoulder Left (+) Tear Knee Meniscus Current Subsequent Left OBJECTIVE PHYSICAL EXAMINATION Airway (HEENT) Mallampati: III TM Distance: >3 FB Neck ROM: Full Mouth Opening: >3 cm Upper Lip Bite Test Class: I Cardiovascular Rhythm: Regular Rate: Normal Cardiovascular Assessment: cardiovascular normal Functional Capacity: >4 METS Pulmonary Pulmonary Assessment: Clear and diminished General / Constitutional Constitutional Assessment: Obese General State of Health:: calm Neurological Neurologic Assessment:??alert and alert and oriented x 3 Dental Dental Assessment: dentition intact ASSESSMENT / PLAN ANESTHESIA PLAN ASA: 3 Anesthesia Plan: general LMA GA Patient seen and allergies reviewed, anesthesia plan and risks discussed directly with patient /legal guardian or through an staff interpreter. The use of blood products not discussed Approval to Proceed: approved for anesthesia documented in this encounter Plan of Treatment Upcoming Encounters Date Type Specialty Care Team Description 02/15/2022 Office Visit Orthopedic Surgery [place], Ne saumya, D.O. [address] [place], [place] [address] (Wo rk) documented as of this encounter Procedures Procedure Name Priority Date/Time Associated Comments Diagnosis LDA ANE NON-SURGICAL Routine 10/29/2021 7:41 AM R esults for this AIRWAY CDT procedure are i n the results section. MC ANE NERVE BLOCK Routine 10/29/2021 7:32 AM Res ults for this WITH ULTRASOUND CDT procedure ar e in the results section. OK US GUIDE PLC NDL Routine 10/29/2021 7:32 AM Re sults for this CDT procedure are i n the results section. OK INJ ANES FEM Routine 10/29/2021 7:32 AM Result s for this NERVE CDT procedure are i n the results section. documented in this encounter Results LDA ANE NON-SURGICAL AIRWAY (10/29/2021 7:41 AM CDT) Narrative Andres Light APRN, CRNA - 03/2021 7:41 AM CDT Andres Light APRN, CRNA ? 10/29/2021 ??7:49 AM Airway Date/Time: 10/29/2021 7:41 AM Performed by: Andres Light APR N, CRNA Authorized by: Andres Light AP RN, NUTTER UP Patient location during procedure: OR / Procedure Area PROCEDURE DETAILS: Mask difficulty assessment: not attempte d Final airway type: supraglottic airway Laryngeal Manipulation: no ?? Supraglottic device: igel ?? Supraglottic device size: 5 ?? Adult device size: 5 Number of attempt to successful placemen t: 1 Airway confirmation: bilateral breath so unds, positive ETCO2 and bilateral chest rise Other previous techniques attempted: non e PRE PROCEDURE DETAILS: Pre evaluation for airway management: pr ocedure Urgency: elective Preop assessment of probable difficulty: questionable / suspicious difficult airway Preoxygenation: bag valve mask SEDATION / ANESTHESIA Anesthesia method: anesthesia POST PROCEDURE DETAILS: ? Procedure outcome: successful ?? Airway event: no complications Andres Light APRN, CRNA ANESTHESIA ORDERABLES OK INJ ANES FEM NERVE, OK US GUIDE PLC NDL, MC ANE NERVE BLOCK WITH ULTRASOUND (10/29/2021 7:32 AM CDT) Narrative Andres Light APRN, CRNA - 03/2021 7:32 AM CDT Andres Light APRN, CRNA ? 10/29/2021 ??8:08 AM Regional Block Date/Time: 10/29/2021 7:32 AM Performed by: Andres Light APR N, CRNA Authorized by: Andres Light AP RN, NUTTER UP Location: Pre Op / PACU PROCEDURE DETAILS: Block Indication: post-op pain block ?? Block indication comment: Post-Op pain b lock at request of surgeon Block Type - Lower extremity: adductor c anal Positioning: supine ?? Laterality: left Block technique: ultrasound guided ?? Ultrasound image guidance used to locali ze target, identify at risk structures, and dynamically used to dire ct therapy to the target. Procedure was performed under sterile co nditions.Image(s) acquired and saved Injection technique: single injection Needle type: echogenic Gauge: 20G Length: 10 Test dose: yes- negative test dose ?? Incremental injection of local anestheti c with aspiration every:5cc Pain with needle advancement or injectio n of local anesthetic: no ?? Injected Medications: Injection(s), anes thetic agent(s) and/or steroid; See MAR Comments: Comments: Requested by Dr. Shelton UNIVERSAL PROTOCOL All relevant documentation and testing w ere reviewed and available. All required blood products, implants, devic es and or special equipment were made available as applicable. Pre-proced ure verification was conducted and the correct site was marked if required. A fire risk assessment was done as applicable. The procedural time-out t o verify correct patient, correct side/site, and procedure was conducted p rior to performing the procedure and confirmed in a procedural pause. PRE-PROCEDURE DETAILS: ?? Appropriate hand hygiene, gown, cap, mas k, protective eyewear, sterile gloves, skin preparation, sterile drape, and strict aseptic technique were utilized as applicable for the procedure .: yes ?? Skin prep: chlorhexidine / alcohol SEDATION / ANESTHESIA Anesthesia method: local infiltration Local infiltrate type: lidocaine POST-PROCEDURE DETAILS: Procedure completed successfully: succes sful procedure Other complications: none Andres Light APRN, NUTTER UP PROCEDURE/MINOR SURGIC AL ORDERABLES documented in this encounter Visit Diagnoses Not on filedocumented in this encounter Administered Medications Inactive Administered Medications - up to 3 most recent administrations Medication Order MAR Action Action Date Dose Rate Site ceFAZolin injection 3 g (ANCEF) Given 10/29/2021 7:45 AM CDT 3 g 3 g, intravenous, Once, On Fri10/29/21 at 0645, For 1 dose, Intra-Op, Administer within 1 hour prior to surgical incision If needed, reconstitute vial per package insert instructions. See IVAG for administration guidelines. , Drug Monitoring Program: Pharmacist to adjust medication dosing based on indication and drug clearance factors., Indications: Prophylaxis, surgical dexAMETHasone injection (DECADRON) Given 10/29/2021 7:48 AM CDT 4 mg intravenous, As needed, Starting on Fri10/29/21 at 0748, Anesthesia Intra-op ePHEDrine (PF) injection Given 10/29/2021 7:53 AM CDT 10 mg intravenous, As needed, Starting on Fri10/29/21 at 0753, Anesthesia Intra-op fentaNYL injection (SUBLIMAZE) Given 10/29/2021 7:56 AM CDT 25 mcg intravenous, As needed, Starting on Fri10/29/21 at 0745, Anesthesia Intra-op Given 10/29/2021 7:45 AM CDT 25 mcg Given 10/29/2021 7:29 AM CDT 50 mcg HYDROmorphone injection (DILAUDID) Given 10/29/2021 8:51 AM CDT 0.5 mg intravenous, As needed, Starting on Fri10/29/21 at 0811, Anesthesia Intra-op Given 10/29/2021 8:11 AM CDT 0.5 mg ketamine injection (KETALAR) Given 10/29/2021 8:13 AM CDT 10 mg intravenous, As needed, Starting on Fri10/29/21 at 0755, Anesthesia Intra-op Given 10/29/2021 8:01 AM CDT 10 mg Given 10/29/2021 7:55 AM CDT 30 mg ketorolac injection (TORADOL) Given 10/29/2021 9:00 AM CDT 15 mg intravenous, As needed, Starting on Fri10/29/21 at 0900, Anesthesia Intra-op lactated ringers New Bag 10/29/2021 8:51 AM CDT 20 mL/hr, intravenous, Continuous, Starting on Fri10/29/21 at 0715, Pre-Op New Bag 10/29/2021 7:25 AM CDT lidocaine (PF) (cardiac) injection Given 10/29/2021 7:39 AM CDT 40 mg intravenous, As needed, Starting on Fri10/29/21 at 0739, Anesthesia Intra-op midazolam (PF) injection (VERSED) Given 10/29/2021 7:29 AM CDT 2 mg intravenous, As needed, Starting on Fri10/29/21 at 0729, Anesthesia Intra-op ondansetron (PF) injection (ZOFRAN) Given 10/29/2021 9:05 AM CDT 4 mg intravenous, As needed, Starting on Fri10/29/21 at 0905, Anesthesia Intra-op phenylephrine injection Given 10/29/2021 7:53 AM CDT 50 mcg intravenous, As needed, Starting on Fri10/29/21 at 0749, Anesthesia Intra-op Given 10/29/2021 7:49 AM CDT 100 mcg propofoL injection (DIPRIVAN) Given 10/29/2021 7:39 AM CDT 200 mg intravenous, As needed, Starting on Fri10/29/21 at 0739, Anesthesia Intra-op ropivacaine (PF) 5 mg/mL (0.5 %) injection Given 10/29/2021 7:33 AM CDT 10 mL (NAROPIN) peripheral nerve block, As needed, Starting on Fri10/29/21 at 0733, Anesthesia Intra-op Given 10/29/2021 7:32 AM CDT 10 mL documented in this encounter Additional Health Concerns Assessment Noted Time PHQ-9 Depression Total Score: 4 03/02/2021 10:28 AM CS T documented as of this encounter Care Teams Wallpaperer Relationship Specialty Start Date End Date Norma Kenny, STEVEN, C.N.P. PCP - General 09/12/[address] [facility] [place] [address] documented as of this encounter
--- OUTSIDE RECORDS SUMMARY | 2022-01-25 11:34 | XMS_ITS | Encounter Summary ---
:1965 Author Organization [facility] Address [address] [place] [address] Care Team Providers Name Role Phone Norma Kenny APRN, C.N.P. Primary Care Provider [phone] Encounter Details Date Type Department Care Team Description 11/05/2021 Clinical Communication Department of [facility] in [place]. [address] [phone] Social History Tobacco Use Types Packs/Day Years [...] or relatives? How often do you attend jainism or latter day More than 4 time s per year 09/17/2018 services? 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 [address] [place], [place] [address] (Wo rk) documented as of this encounter Visit Diagnoses Not on filedocumented in this encounter Additional Health Concerns Assessment Noted Time PHQ-9 Depression Total Score: 4 03/02/2021 10:28 AM CS T documented as of this encounter Care Teams [employer] Executive Director Relationship Specialty Start Date End Date Norma Kenny, STEVEN, C.N.P. PCP - General 09/12/[address] [place] [phone] documented as of this encounter
--- OUTSIDE RECORDS SUMMARY | 2022-01-25 11:34 | XMS_ITS | Encounter Summary ---
:1965 Author Organization [facility] Address [address] [place] [address] Care Team Providers Name Role Phone Norma Kenny APRN, C.NNikhilPNikhil Primary Care Provider [phone] Reason for Visit Physical Therapy (Routine) - Authorized Specialty Diagnoses / Procedures Referred By Contact Refer red To Contact Diagnoses Arthroscopy Knee Status [facility] Procedures [facility] Ongoing treatment [address] [place] [address] Referral ID Status Reason Start Date Expiration Date Visits V isits Requested Authorized [id number] Authorized 11/01/2021 03/30/2022 99 99 Encounter Details Date Type Department Care Team Description 12/18/2021 Clinical Support Department of Physical Ha Shelton M.D. [address] [place] [address] Arthroscopy Knee Medicine and Paula Isaacs P, P.TNikhil [address] [place] [phone] Status Post Rehabilitation in [facility] (Prima ry [place], [place] [address] [place] [phone] Social History Tobacco Use Types Packs/Day Years [...] or relatives? How often do you attend religion or voodoo More than 4 time s per year 09/17/2018 services? 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 - 12/18/2021 8:30 AM CDT Physical Therapy Outpatient Treatment Note SUBJECTIVE Patient's Name: Saad Murray Referring Provider: Hugo Shelton M.D. Visit Diagnosis: 1. Arthroscopy Knee Status Post Payor: [facility] / Plan: [facility] / Product Type: EPO / No data recorded Epic Visit Count: 6 Diagnostic Tests: MR KNEE LEFT WITHOUT IV [...] was putting out bags on trees for Sh[place] season and stepped over a large log [...] to prior level of function Patient comments: Patient returns to physical therapy follow-up for his left knee. Patient continuesto be wearing his knee brace that remains 0-90 degrees and is weight-bearing as tolerated. Patient presents today utilizing single end cane at the time of his treatment complaining of anterior knee pain and medial joint line pain. Patient reports he continues to have some swelling and some warmth on his left knee by the end of the day. Patient has been experimenting with knee sleeves due to the symptoms in his knee. Patient also reports his left hinged area has broken on this brace as well but he isunclear as to how much longer he will need it and utilize it. Patient continues to utilize wheelchair as needed within his home while working he sits and is able to mobilize himself primarily using hisright lower extremity. Patient continues to utilize walker as well at x when walking for increased support. Contact monitoring: PPE used during therapy: Therapist was wearing the following PPE throughout entire session: surgicalmask and eye protection Patient was wearing a mask during therapy session: yes Family member/caregiver present was wearing a mask: yes Additional Staff Present During Session: none OBJECTIVE Pain: Not formally rated, patient points indicates medial left knee and anterior knee pain is his greatest complaint consistent with patellar tendon region along the tibial tuberosity. Observation/Inspection: Patient is a pleasant 55 yo male who presents today wearing his knee brace set at 0-90 degrees. Patient's left bracket is broken on the knee brace. Patient is utilizing a singleend cane. Balance/Posture/Physical Status: Patient remains fair - good with stability when in right lower extremity weight bearing position Mobility/Transfers: Patient is independent with all mobility performed today including sit <>stand from chair, plinth, wc. Patient utilizes his hands safely to perform transfers. Patient observedto transfer weight off to his right side primarily and once stable utilizes weight through his left. Gait/Stairs: Patient ambulates with SEC and toe walking at onset of treatment, with knee flexion andlimited range of motion in his left knee. Circumference measurements: Left (cm) Right (cm) Joint [...] Score: 24.875 TREATMENT Treatment today consisted of: Gait training: Using a model and pictures for further understanding for the patient review the anatomy and the site of patient's primary complaint of symptoms. Review with patient ambulation with cues for heel toe to reduce patient's knee flexion and encourage knee extension in a weight-bearing positio n. Patient is able to ambulate 20 ft x 4 using single end cane with immediate change in his knee symptoms. With repetition patient is able to also decrease his base of support but maintains a greater than 4 in distance between his heels with pattern. Patient continues to utilize single end cane with ambulation. Therapeutic exercise: Discuss and review with patient his current functional status with regards to his home and his job demands. Progress patient with weight-bearing exercises with limited knee flexion to encourage glute recruitment and patient becoming more comfortable with weight throughout his left lower extremity. Single leg stand eyes open with encouragement for patient to put weight through his heel 30 secondsx2 Left single leg stand with right lower extremity hip abduction, flexion, extension as he was doing previously for his left leg Introduce a mini squat with encouragement for glute recruitment and equal weight-bearing bilaterally through patient's left lower extremity x 10 this was performed at the stair railing patient encouraged to maintain between 45 and 60?? of knee flexion avoiding any deep knee flexion at this time. Verbal cues were required to reduce knee flexion and demonstration provided for greater understanding with patient able to verbalize that he was able to feel the different with increased hip flexion with nopain produced. Discuss and review POC with patient and option to increase to 2 x week and introduce weight resistance and bike, progressing to a SNAP / or gym membership locally, or maintaining current 1 x / week. Home Exercise Program/Education: Initiate Home Exercise program [...] leg when in stance for knee extension. 12/18/21: Left Single leg stand, mini-squat, standing on the left leg right hip extension, abduction,flexion, gait pattern - heel to toe Medbridge: Access Code: [email or web address] Patient reports good HEP compliance. Assessment Clinical Impression: Patient returns to physical therapy for follow-up visit for left knee meniscal repair. Patient demonstrates Improvement as he transitions with weight-bearing as tolerated through his left lower extremity today. With instruction on gait pattern patient is able to effectively manage symptoms he was experiencing anteriorly along his tibial tuberosity. Signs and symptoms were consistent with toe walking and increased shearing occurring and physical demands along the patellar tendon site. Patient remains appropriate for knee brace to continue to monitor and create awareness for patient's activity as he slowly progresses to increased physical demands throughout his left lower extremity. Patient remains appropriate for physical therapy at this time and would benefit from increasing his frequency to progress with strength and increasing mobility. Functional Goals and Timeframes: PT Goal #1: Patient is able to transfer himself independently in/out of vehicles to make his appointments PT Goal #1 Date: 11/16/21 PT Goal #1 Status: Achieved PT Goal #2: Patient is able to transfer himself in/out of chair independently with appropriate weight bearing restrictions safely. PT Goal #2 Date: 11/16/21 PT Goal #2 Status: Progressing PT Goal #3: Patient is able to ambulate in a reciprocal pattern with or without assistive device to return to prior level of independence. PT Goal #3 Date: 11/30/21 PT Goal #3 Status: Progressing PT Goal #4: Patient is able to ambulate on varied surfaces and step onto equipment independently to be able to meet needs of his job safely. PT Goal #4 Date: 12/14/21 PT Goal #4 Status: Progressing Plan Plan for next session: Patient to schedule 1-2 x a week to continue to progress patient per protocolintroducing increased weight-bearing exercises, continue to educate patient on functional mobility strategies, monitor swelling and symptoms throughout patient's left knee and adjust plan of care accordingly. Time Spent with Patient Therapeutic Interventions Gait Training (min): 18 min Therapeutic Exercise (min): 25 min Time Tracking Total Timed Units (min): 43 min Total Treatment Time (min): 43 min documented in this encounter Plan of Treatment Upcoming Encounters Date Type Specialty Care Team Description 02/15/2022 Office Visit Orthopedic Surgery Madyson Rosa, D.ONikhil [address] [place], [place] [phone] (Wo rk) documented as of this encounter Visit Diagnoses Diagnosis Arthroscopy Knee Status Post - Primary documented in this encounter Care Teams Supervisory Forester Relationship Specialty Start Date End Date Norma Kenny APRN, C.N.P. PCP - General 09/12/[address] [place] [phone] documented as of this encounter
--- OUTSIDE RECORDS SUMMARY | 2022-01-25 11:34 | XMS_ITS | Encounter Summary ---
:1965 Author Organization [facility] Address [address] [place] [address] Care Team Providers Name Role Phone Norma Kenny APRN, C.NNikhilPNikhil Primary Care Provider [phone] Reason for Visit Physical Therapy (Routine) - Authorized Specialty Diagnoses / Procedures Referred By Contact Refer red To Contact Diagnoses [facility]throscopy Knee [facility] Ongoing treatment [address] [place] [address] Referral ID Status Reason Start Date Expiration Date Visits V isits Requested Authorized [id number] Authorized 11/01/2021 03/30/2022 99 99 Encounter Details Date Type Department Care Team Description 11/13/2021 Clinical Support Department of Physical Ha Shelton M.D. [address] [place] [phone] Arthroscopy Knee Medicine and Paula Isaacs P, P.TNikhil [address] [place] [phone] Status Post Rehabilitation in [facility] (Prim[place], [place] [address] [place] [phone] Social History Tobacco Use Types Packs/Day Years [...] or relatives? How often do you attend restoration or taoist More than 4 time s per year 09/17/2018 services? 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 - 11/13/2021 10:00 AM CDT Physical Therapy Outpatient Treatment Note SUBJECTIVE Patient's Name: Saad Murray Referring Provider: Hugo Shelton M.D. Visit Diagnosis: 1. Arthroscopy Knee Status Post Payor: [facility] / Plan: [facility] / Product Type: EPO / No data recorded Epic Visit Count: 4 Diagnostic Tests: MR KNEE LEFT WITHOUT IV [...] was putting out bags on trees for [employer] season and stepped over a large log [...] she is an RN. Patient reports he had follow up with the ortho department yesterday. Patient is doing well. He had his sutures removed and is progressing nicely. Patient is to begin weight bearing at 4 weeks per the patient, but up to the discretion of the PT and while maintaining use of knee brace. Patient reports overall he is managing within his restrictions without concerns at the current time. Contact monitoring: PPE used during therapy: Therapist [...] brace set at 0-90 degrees. Patient has adapted cut off cotton to protect skin of his quad area and a compression sleeve on his lower leg for the same reasons. Balance/Posture/Physical Status: Patient remains fair - good with stability when in right lower extremity weight bearing position Mobility/Transfers: Patient is SBA with all mobility performed today including sit <>stand from chair, plinth, wc. Patient reminded of weight-bearing restrictions several times during treatment. Patient observed to put more weight through his left leg when transitioning with sit to stand and stand to sit Gait/Stairs: Patient ambulates with FWW and SBA for safety with verbal cues to remain patient toe-touch weight-bearing left lower extremity. Attempts made to limit his distance ambulating to protect shoulders and remain safe. Circumference measurements: Left (cm) Right (cm) Joint [...] home exercise with the patient and progress Standing left hip flexion, abduction, extension x 10 each with education on use of right lower extremity to stabilize. Review sitting and supine exercises including straight leg raises Home Exercise Program/Education: Initiate Home Exercise program with current restrictions in place: Quad set, ham set, glut set, ankle pumps, and straight leg raises with Assistance and while maintaining brace one 11/02/21: SAQ, Seated hip flexion and Seated LAQ 11/13/21: Standing left hip abduction, flexion, and extension. Provide Tubigrip stocking for patient's left leg to trial. [email or web address]: Access Code: [email or web address] Patient reports good HEP compliance. Assessment Clinical Impression: Patient returns to physical therapy for follow-up visit for left knee meniscal repair. Patient demonstrates safe transfers with mobility and is able to perform independently. Patient is able to manage WC independently within the department. Overall patient is progressing per the protocol safely and functioning within the restrictions. Patient would continue to benefit from physical therapy at this time to continue to progress and monitor patient with recovery of strength and range of motion [...] bearing restrictions safely. PT Goal #2 Date: 08/19/22 PT Goal #3: Patient is able to [...] Plan for next session: Patient to schedule two weeks out as patient's restrictions with weight bearing status can be reassessed. Patient to maintain use of knee immobilizer on and set at 0-90 degrees. Time Spent with Patient Therapeutic Interventions Therapeutic Exercise (min): 25 min Time Tracking Total Timed Units (min): 25 min Total Treatment Time (min): 25 min documented in this encounter Plan of Treatment Upcoming Encounters Date Type Specialty Care Team Description 02/15/2022 Office Visit Orthopedic Surgery Madyson Rosa, D.ONikhil [address] [place], [place] [phone] (Wo rk) documented as of this encounter Visit Diagnoses Diagnosis Arthroscopy Knee Status Post - Primary documented in this encounter Additional Health Concerns Assessment Noted Time PHQ-9 Depression Total Score: 4 03/02/2021 10:28 AM CS T documented as of this encounter Care Teams Double End Production Grinder Relationship Specialty Start Date End Date Norma Kenny, STEVEN, C.N.P. PCP - General 09/12/[address] [place] [address] documented as of this encounter
--- OUTSIDE RECORDS SUMMARY | 2022-01-25 11:34 | XMS_ITS | Encounter Summary ---
:1965 Author Organization [facility] Address [address] [place] [address] Care Team Providers Name Role Phone Norma Kenny APRN C.N.PNikhil Primary Care Provider [phone] Encounter Details Date Type Department Care Team Description 12/05/2021 Clinical Communication Department of Chase Philippe, Medicine in [facility] [place], [place] [address] [place] [phone] Social History Tobacco Use Types Packs/Day Years [...] or relatives? How often do you attend sabianism or denominational More than 4 time s per year 09/17/2018 services? 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 - 12/13/2021 7:30 AM CDT Yes. All of that sounds fine as long as he continues the 3 you discussed. Thanks, TK Telephone Encounter - Jeannette Bernardo L.P.N. - 12/12/2021 12:32 PM CDT Norma did you see this? Telephone Encounter - Jeannette Bernardo L.PNikhilN. - 12/05/2021 11:37 AM CDT Edit Delete Copy Pt requested we review medications he has at home, wanted to know purpose for them and what he should keep on hand. We reviewed medications one at a time and purpose for them. Most of them are from post knee surgery, pain meds/ stool softener, lose dose asa. Medications the pt is no longer or has never taken are as follows: Asa 81 mg Oxycodone (pt states it made him crazy) will put on allergy list Meloxicam Lorazepam Pantoprazole. Sertraline (pt states he stopped this about one month ago, phq 9/hailee 7 completed today. Results are Phq9 (0), hailee 7 (1) Acetaminophen Senna Naproxen He has his 6 week follow up with the Orthopedic DrNikhil On Friday12/07/21. Pt will keep the acetaminophen and (1) bottle of Sertraline on hand until he has his annual appointment with you between December and May. He will continue taking the Lisinopril, Metoprolol, Atorvastatin as prescribed. He plans to dispose of the others. I explained the Pantoprazole could be used as needed. He states he hasn't used it for awhile and hasno issues after eating. He declined a need for this. I explained the Naproxen is an anti-inflammatory may be helpful with PT. He states he has no pain post PT and he was advised to discuss with surgeon if further PT is necessary and what mobility equipment he should continue to use be it a cane, walker, wheelchair.at his appointment on Friday. Med list/allergy list has been updated today. Please advise as appropriate. documented in this encounter Plan of Treatment Upcoming Encounters Date Type Specialty Care Team Description 02/15/2022 Office Visit Orthopedic Surgery Madyson Rosa D.O. [address] [place], [place] [phone] (Wo rk) documented as of this encounter Visit Diagnoses Not on filedocumented in this encounter Care Teams Auto Fleet Manager Relationship Specialty Start Date End Date Norma Kenny, STEVEN, C.N.P. PCP - General 09/12/16 [address] [place] [phone] documented as of this encounter
--- OUTSIDE RECORDS SUMMARY | 2022-01-25 11:34 | XMS_ITS | Encounter Summary ---
:1965 Author Organization [facility] Address [address] [place] [address] Care Team Providers Name Role Phone Norma Kenny APRN C.NNikhilPNikhil Primary Care Provider [phone] Reason for Visit Reason Comments Med Refill Encounter Details Date Type Department Care Team Description 11/30/2021 Refill [facility] OR Sanaz Mcallister, KemARandi, Med Refill [address] [place] [phone] [facility] [phone] [place], [place] [phone] (Wo rk) Social History Tobacco Use Types Packs/Day Years [...] or relatives? How often do you attend taoist or episcopal More than 4 time s per year 09/17/2018 services? 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 PCP - General 09/12/[address] [place] [phone] documented as of this encounter
--- OUTSIDE RECORDS SUMMARY | 2022-01-25 11:34 | XMS_ITS | Encounter Summary ---
:1965 Author Organization [facility] Address [address] [place] [address] Care Team Providers Name Role Phone Norma Kenny APRN, C.N.P. Primary Care Provider [phone] Reason for Referral Physical Therapy (Routine) - Authorized Specialty Diagnoses / Procedures Referred By Contact Refer red To Contact Diagnoses Arthroscopy Knee Status Post Hugo Shelton M.D. [facility] Procedures PT Ongoing treatment [address] [place] [phone] Referral ID Status Reason Start Date Expiration Date Visits V isits Requested Authorized [id number] Authorized 11/01/2021 03/30/2022 99 99 hysical Therapy (Routine) - Pending Review Specialty Diagnoses / Procedures Referred By Contact Refer red To Contact Diagnoses Tear Knee Meniscus Current Subsequent Left Sanaz Mcallister P.A.-C., [facility] Procedures PT Ongoing treatment M.S. [address] [place] [phone] Referral ID Status Reason Start Date Expiration Date Visits V isits Requested Authorized [id number] Pending 10/31/2021 10/31/2022 99 99 Review Reason for Visit Physical Therapy (Routine) - Closed Specialty Diagnoses / Procedures Referred By Contact Refer red To Contact Diagnoses Tear Knee Meniscus Current Subsequent Left Sanaz Mcallister P.A.-C., [facility] Procedures PT Evaluate and treat M.S. [address] [place] [phone] Referral ID Status Reason Start Date Expiration Date Visits Requ ested Visits Authorized [id number] Closed 10/29/2021 10/29/2022 1 1 Encounter Details Date Type Department Care Team Description 10/31/2021 Comprehensive Visit Department of Physical Beckm Sanaz donato P.A.-C., M.S. [address] [place] [phone] Tear Knee Meniscus Current Subsequent Le ft (Primary Dx); Medicine and Paula Isaacs, P.T. [address] [place] [phone] Tear Knee Meniscus Current Subsequent Le ft; Rehabilitation in [facility] Knee Status Post [place], [place] [address] [place] [phone] Social History Tobacco Use Types Packs/Day Years [...] or relatives? How often do you attend tenriism or methodist More than 4 time s per year 09/17/2018 services? Do you belong to any clubs or organizations No 09/17/2018 such as tenriism groups, unions, fraternal or athletic groups, or [...] at Date Recorded Male 03/25/2018 1:01 PM RN APPEALS documented as of this encounter Consult Notes Paula Isaacs, P.T. - 10/31/2021 10:00 AM CDT Physical Therapy Outpatient Evaluation/Treatment By co-signing this note, the provider certifies the therapy being provided to this patient is reasonable and necessary for the diagnosis or treatment of this patient. SUBJECTIVE Patient's Name: Saad Murray Referring Provider: Sanaz Mcallister P.A.-C.* Visit Diagnosis: 1. Tear Knee Meniscus Current Subsequent Left 2. Tear Knee Meniscus Current Subsequent Left Reason for Referral: Left knee s/p meniscal repair Onset Date: 10/29/21 Payor: [employer] [facility] / Plan: [facility] [place] / Product Type: EPO / Epic Visit Count: 1 PERTINENT MEDICAL / SURGICAL HISTORY: Patient Active Problem List Diagnosis Hypertension Essential Primary Body Mass Index 40.0 To 44.9 Adult (HCC) Hypercholesterolemia Gastroesophageal Reflux Disease Palpitations Pain Shoulder Left Pain Hip Right Acute Lower Respiratory Infection Due To COVID-19 Pain Low Back Chronic Tear Knee Meniscus Current Subsequent Left Past Surgical History: Procedure Laterality Date ARTHROSCOPY KNEE MENISCUS Left 10/29/2021 Procedure: ARTHROSCOPY KNEE MENISCUS WITH ROOT REPAIR; Surgeon: Hugo Shelton M.D.; Location: [facility] OR REPAIR OF UMBILICAL HERNIA N/A 04/12/2016 Repair of umbilical hernia VASECTOMY N/A 03/05/2005 Vasectomy Diagnostic Tests: MR KNEE LEFT WITHOUT IV [...] ROM 0-90 degrees with knee brace on. Patient presents to outpatient physical therapy for evaluation of symptoms including: Left Knee pain Left Lower extremity weakness Left knee/extremity edema Overall patient reports status remains the same. History of Present Illness:Patient indicates he was putting out bags on trees for [place] seasonand stepped over a large log and felt slightly sliding on the ground. Patient reports he was fine atthe time, but the next day his knee was swollen and pain increased. Patient did receive an cortisoneinjection to trial for management. Patient reports about 2-3 weeks back his dog knocked his crutch out from under him resulting in him falling and experiencing increased pain. Patient proceeded with surgery as soon as able to. 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 Contact monitoring: PPE used during therapy: Therapist was wearing the following PPE throughout entire session: surgicalmask, eye protection, and gloves Patient was wearing a mask during therapy session: yes Patient's family member - daughter also wore a mask and gloves to assist with brace and dressing OBJECTIVE REVIEW OF SYSTEMS Pt denies the following red flag symptoms: immunosuppresion, recent spine surgery, fever/chills, rash, history of spine infection, unexplained weight loss, cancer history, increased night pain, osteoporosis (fracture risk), trauma, systemic steroids (fracture risk), foot drop, incapacitating pain. PHYSICAL EXAM Pain: Pain Assessment Pain Score: 4 Pain Type: Acute pain, Surgical pain Pain Location: Knee Pain Orientation: Left Pain Onset: Ongoing Pain Frequency: Constant/continuous Vital Signs Outcome Measures: Measures - Tools Knee Injury and Osteoarthritis Outcome Score Joint Replacement (KOOS JR) Stiffness How severe is your knee stiffness after first wakening in the morning?: Severe Pain Twisting/pivoting on your knee: Severe Straightening knee fully: Severe Going up or down stairs: Extreme Standing upright: Extreme Function, daily living Rising from sitting: Extreme Bending to floor/pepper picker an object: Severe Scores Raw summed score: 24 Total Interval Score: 24.875 Interpretation of scores Scores are transformed to a 0-100 scale, with zero representing extreme knee problems and 100 representing no knee problems as common in orthopaedic scales and generic measures. Scores between 0 and 100 represent the percentage of total possible score achieved. Observation/Inspection: Patient presents today with dressing bunched up distal to knee between straps of his knee brace. Patient's faith wrap remains on and in place from his foot to top of his knee brace. Patient's knee brace is open 0-90 degrees. Circumference measurements: Left (cm) Right (cm) Joint line Not measured secondary to dressing in place and contraindicated at this time. 56.3 cm Posture: Patient remains seated during treatment today unable to formally assess standing or weight-bearing Mobility/Transfers/Wheelchair: Patient requires minimal/moderate assistance with transfers today including wheelchair to treatment table and wheelchair to car Ambulation/Balance: Patient is currently under restrictions of nonweightbearing and presents to treatment today without assistive device Palpation: Increased edema interstitial fluid throughout patient's left knee region with symptoms provoked with gentle palpation Range of Motion: Left Right Knee Flexion AROM: 78? PROM: ?? AROM: 121 ?? PROM: ?? Knee Extension AROM: 25?? PROM: ?? AROM: 0 ?? PROM: ?? Strength: Left Right Knee Flexion: 3+/5 5/5 Knee Extension: 3+/5 5/5 Observed left-side against gravity contraindicated to formally assess at this time Neuro Screen/Motor Control: Intact with light touch throughout patient's lower extremities compared bilateral Joint Mobility: No formal assessment made at this time as it is contraindicated Attendance policy was discussed with patient. Patient verbalized and agrees to no show policy expectations including discharge from therapy if attendance expectations are not met. REVIEW OF SYSTEMS PHYSICAL EXAM Pain: Pain Assessment Pain Score: 4 Pain Type: Acute pain, Surgical pain Pain Location: Knee Pain Orientation: Left Pain Onset: Ongoing Pain Frequency: Constant/continuous Ortho Exam Cognition Arousal/Alertness: Appropriate responses to stimuli Initiation: No difficulty with initiation Orientation: Oriented X4 Following Commands: Not following commands TREATMENT Treatment today consisted of: Therapeutic Exercise: Introduction of generalized strengthening of the left lower extremity including ankle pumps, quad sets, ham sets, glute sets x 10 each with patient instructed to performed bilaterally for improvement with muscle recruitment patterns Straight leg raise performed left lower extremity with assistance x 10 with cues for core stabilization right knee flexed. Patient's dressing was changed. Attempts to reposition the dressing to appropriate location over theincision, but unable to successfully. Dressing was removed with new ABD pads place over incision area, new wrapping and faith wrap rewrapped with dressing in place. Patient's daughter (an RN) was able and willing to assist for comfort of the patient. Patient remained in supine position the change. Therapeutic Functional Activity: Assisted patient and family with car transfer for problem solving tasks to transfer into the passenger side with left lower extremity involvement. Home Exercise Program/Education: Initiate Home Exercise program with current restrictions in place: Quad set, ham set, glut set, ankle pumps, and straight leg raises with Assistance and while maintaining brace one Audingo: Access Code: [email or web address] Assessment Clinical Impression: Patient presents to physical therapy with signs and symptoms consistent with left knee pain and decreased strength with limited functional mobility secondary to status post meniscal surgery.. Impairments: Decreased left knee range of motion, decreased left lower extremity strength, increasededema throughout left knee joint region Functional deficits: Inability to weightbear through left lower extremity, patient is currently unable to ambulate, perform stairs, difficulty with all transfers, patient is currently unable to work orand joint hobbies such as hunting or fishing. Rehab Potential: Patient has Good potential to achieve established physical therapy goals within thetime frame outlined below, provided active participation in the physical therapy treatment plan and home program. Personal Factors: Occupational risk factors Clinical Presentation: Stable Examination elements: 1-2 Clinical Decision Making: Low complexity clinical decision making Functional Goals and Timeframes: PT Outpatient Goals PT Goal #1: Patient is able to transfer himself independently in/out of vehicles to make his appointments PT Goal #1 Date: 11/16/21 PT Goal #2: Patient is able to transfer himself in/out of chair independently with appropriate weight bearing restrictions safely. PT Goal #2 Date: 11/16/21 PT Goal #3: Patient is able to ambulate in a reciprocal pattern with or without assistive device to return to prior level of independence. PT Goal #3 Date: 11/30/21 PT Goal #4: Patient is able to ambulate on varied surfaces and step onto equipment independently to be able to meet needs of his job safely. PT Goal #4 Date: 12/14/21 Plan Patient was educated regarding evaluative findings, diagnosis, prognosis, potential risks and benefits of rehabilitation interventions. A collaborative effort was used to establish goals and plan of care. The patient was informed of the right to make decisions regarding care, including refusal of examination or treatment or selection of services from another provider if desired. The treatment plan may be progressed or modified based upon the patient's response to treatment. Physical Therapy Attestation Statement: Patient agrees with the plan of care and goals. Treatment Plan: Plan: Plan of care initiated Start of Plan of Care: 10/31/2021 Number of Visits:16 visits PT Duration: PT Frequency: Treatment interventions may include: Plan for next session: Reassess patient's response to home exercise program and progress accordinglywith an patient's restrictions of 0-90?? flexion and nonweightbearing/TTWB Time Spent with Patient Evaluations PT Eval - Low Complexity: 25 min Therapeutic Interventions Therapeutic Activity (min): 5 min Therapeutic Exercise (min): 25 min Time Tracking Total Timed Units (min): 30 min Total Treatment Time (min): 55 min documented in this encounter Miscellaneous Notes Addendum Note - Jose Balderas, P.T. - 10/31/2021 10:00 AM CDT Addended by: JOSE BALDERAS on: 11/01/2021 02:37 PM Modules accepted: Orders documented in this encounter Plan of Treatment Upcoming Encounters Date Type Specialty Care Team Description 02/15/2022 Office Visit Orthopedic Surgery RavinMadyson haq il, D.O. [address] [place], [place] [phone] (Wo rk) documented as of this encounter Visit Diagnoses Diagnosis Tear Knee Meniscus Current Subsequent Le ft - Primary Arthroscopy Knee Status Post documented in this encounter Additional Health Concerns Assessment Noted Time PHQ-9 Depression Total Score: 4 03/02/2021 10:28 AM CS T documented as of this encounter Care Teams Fleet Salesperson Relationship Specialty Start Date End Date Norma Kenny, STEVEN, C.N.P. PCP - General 09/12/[address] [place] [address] documented as of this encounter
--- OUTSIDE RECORDS SUMMARY | 2022-01-25 11:34 | XMS_ITS | Encounter Summary ---
:1965 Author Organization [facility] Address [address] [place] [address] Care Team Providers Name Role Phone Norma Kenny APRN, C.N.P. Primary Care Provider [phone] Encounter Details Date Type Department Care Team Description 10/29/2021 Ancillary Procedure Department of Anesthesiology Social History Tobacco Use Types Packs/Day Years [...] or relatives? How often do you attend faith or pentecostal More than 4 time s per year 09/17/2018 services? 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 [address] [place] [phone] (Wo rk) documented as of this encounter Procedures Procedure Name Priority Date/Time Associated Comments Diagnosis ANESTHESIOLOGY IMAGE Routine 10/29/2021 7:25 AM R esults for this EXAM CDT procedure are i n the results section. documented in this encounter Results Non-Radiology Image-Anesthesiology Image Exam (10/29/2021 7:25 AM CDT) Specimen (Source) Anatomical Collection Method Collection Time Re ceived Time Location / / Volume Laterality 10/29/2021 7:24 AM CDT Narrative [facility] - 10/29/2021 7:42 AM CDT This order has been created [...] documented as of this encounter Care Teams Pharmacognosy Teacher Relationship Specialty Start Date End Date Norma Kenny APRN, C.N.P. PCP - General 09/12/[address] [place] [phone] documented as of this encounter
--- OUTSIDE RECORDS SUMMARY | 2022-01-25 11:34 | XMS_ITS | Encounter Summary ---
:1965 Author Organization [facility] Address [address] [place] [address] Care Team Providers Name Role Phone Norma Solis APRN, C.N.P. Primary Care Provider [phone] Reason for Visit Reason Comments Med Refill Encounter Details Date Type Department Care Team Description 01/21/2022 Refill Department of Family Medicine Caden Solis APRN, Med Refill in [facility] so C.N.P. [address] [place] [phone] [place] [phone] (Wo rk) Social History Tobacco Use Types [...] or relatives? How often do you attend anglican or spiritism More than 4 time s per year 09/17/2018 services? 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 - 01/24/2022 12:41 PM CDT Images from the original note were not included. Approved Prescriptions sertraline (ZOLOFT) 100 mg tablet Sig: TAKE 1 AND 1/2 TABLETS(150 MG) BY MOUTH DAILY Disp: 135 tablet Refills: 0 (Pharmacy requested: Not specified) Start: 01/24/2022 Class: Normal Authorized by: Norma Solis, STEVEN, C.N.P. For: Anxiety To be filled at: [id number] [address] [facility] [place] [address] Called patient and spoke with him and informed him that the medication was refilled. Telephone Encounter - Francesco Morejon LNikhilP.N. - 01/22/2022 3:57 PM CDT Name of medication: Requested Prescriptions Pending Prescriptions Disp Refills sertraline (ZOLOFT) 100 mg tablet [Pharmacy Med Name: SERTRALINE 100MG TABLETS] 135 tablet 0 Sig: TAKE 1 AND 1/2 TABLETS(150 MG) BY MOUTH DAILY Last refilled: Ordered on: 10/23/2021 Authorized by: NORMA SOLIS Dispense: 135 tablet Refills: 0 ordered 12/05/21 PHQ-9 0 12/05/21 MELODY 1 Phone visit with nurse he stated Sertraline (pt states he stopped this about one month ago Correct Pharmacy Selected in Epic: Yes Last/Next Appt: Last Appointment: 12/05/2021 Spoke with patient on the phone and he says he has been off this med for a a few months when things were good. And lately he has been struggling with depression and stress with work , home life, recentloss of his . Would you reorder this medication at same dosage or start back on a lower dose? Telephone Encounter - Ira Hardy C.MGilson - 01/22/2022 2:45 PM CDT Nurse review: Unable to forward request to provider; Discrepancy; Patient taking Differently- Reported on 12/07/21 that patient is not taking this medication Primary Provider: Norma Solis APRN, C.N.PNikhil Requested Prescriptions Pending Prescriptions Disp Refills sertraline (ZOLOFT) 100 mg tablet [Pharmacy Med Name: SERTRALINE 100MG TABLETS] 135 tablet 0 Sig: TAKE 1 AND 1/2 TABLETS(150 MG) BY MOUTH DAILY Pharmacy (include location): [id number] - [place], [place] - [address] [facility] [address] [facility] [place] [facility] [address] documented in this encounter Plan of Treatment Upcoming Encounters Date Type Specialty Care Team Description 02/15/2022 Office Visit Orthopedic Surgery Madyson Rosa D.O. [address] [place], [place] [phone] (Wo rk) documented as of this encounter Visit Diagnoses Diagnosis Anxiety documented in this encounter Care Teams Senior Quality Assurance Specialist Relationship Specialty Start Date End Date Norma Solis APRN, C.N.P. PCP - General 09/12/[address] [place] [phone] documented as of this encounter
--- OUTSIDE RECORDS SUMMARY | 2022-01-25 11:34 | XMS_ITS | Clinical Summary ---
:1965 Author Organization [facility] Address [address] [place] [address] Care Team Providers Name Role Phone Norma Kenny APRN, C.N.P. Primary Care Provider [phone] Source Comments Patient records contain information from all sites at [facility]. For routine questions regarding patient records, call [phone] during business hours, M-F 8:00 AM - 5:00 PM Central Time. Record requests for emergency care only can be directed to [phone] at any time.[facility] Allergies Active Allergy Reactions Severity Noted Date Comments Meloxicam GI intolerance Medium 10/26/2021 Oxycodone Other (see comments) Medium 12/05/2021 Make pt feel very off his words (crazy) Medications Medication Sig Dispensed Refills Start Date End Date Status LORazepam (ATIVAN) 1 Take 1 tablet (1 20 tablet 0 04/03/2021 Active mg tabletIndications: mg total) by mouth Anxiety at bedtime as needed for anxiety. Additional Information Patient not taking. Reported on 12/07/2021 lisinopriL (PRINIVIL,ZESTRIL) 20 Take 1 tablet (20 mg 90 tablet 3 10/05/2021 Active mg tablet total) by mouth daily. metoprolol succinate (TOPROL-XL) TAKE 1 TABLET(25 MG) 90 tablet 3 10/05/2021 Active 25 mg 24 hr tabletIndications: BY MOUTH DAILY FOR Palpitations BLOOD PRESSURE Additional Information Patient not taking. Reported on 12/07/2021 atorvastatin (LIPITOR) 20 mg Take 1 tablet (20 mg 90 tablet 3 10/26/2021 Active tabletIndications: total) by mouth at Hyperlipidemia bedtime. NEEDS LABS BEFORE NEXT REFILL acetaminophen (TYLENOL) 500 mg Take 1 tablet (500 mg 120 tablet 0 10/29/2021 Active tablet total) by mouth every 6 (six) hours as needed for pain. oxyCODONE (ROXICODONE) 5 mg Indication: Prolonged 30 tablet 0 10/29/2021 Active immediate release Acute Pain/Traumatic tabletIndications: Prolonged Injury. Take 1 tab Acute Pain/Traumatic Injury for pain 4-6, 2 tab for pain 7-10 every 6 hours as needed Additional Information Patient not taking. Reported on 12/07/[address] tablet Take 1 tablet (81 mg 70 tablet 0 10/29 Active total) by mouth 2 (two) times a day. meloxicam (MOBIC) 15 mg TAKE 1 TABLET(15 MG) BY 30 tablet 1 Active tablet MOUTH DAILY Additional Information Patient not taking. Reported on 12/07/2021 sertraline (ZOLOFT) 100 TAKE 1 AND 1/2 135 tablet 0 01/24/2022 Active mg tabletIndications: TABLETS(150 MG) Anxiety BY MOUTH DAILY sertraline (ZOLOFT) 100 TAKE 1 AND 1/2 135 tablet 0 10/23/2021 10/ Discontinued mg tabletIndications: TABLETS(150 MG) 20 22 Anxiety BY MOUTH DAILY Active Problems Problem Noted Date Tear Knee Meniscus Current Subsequent Left 10/22/2021 Overview: Added automatically from request for barby chand [id number] Acute Lower Respiratory Infection Due To COVID-19 10/2020 Pain Low Back Chronic 02/05/2021 Palpitations 04/30/2018 Body Mass Index 40.0 To 44.9 Adult 09/27/2016 Overview: Body mass index (BMI) 40.0-44.9, adult Rule activated problem due to BMI 40-44 posted on 09/27 at 11:27 CDT. Hypertension Essential Primary 05/13/2012 Overview: HTN [Hypertension] Hypercholesterolemia Gastroesophageal Reflux Disease Pain Shoulder Left Pain Hip Right Resolved Problems Problem Noted Date Resolved Date Hypokalemia 02/06/2021 02/07/2021 Hyponatremia 02/05/2021 02/07/2021 Pain Leg Bilateral 02/05/2021 02/07/2021 Screening Cancer Colon 09/17/2018 02/21/2021 Overview: Added automatically from request for barby chand [phone] Encounters Date Type Specialty Care Team Description 01/21/2022 Refill Family Medicine Norma Kenny, Med Ref ill ON AIR TALENT, C.N.P. 12/18/2021 Clinical Support Physical Medicine Hugo Shelton, Arth roscopy Knee and Rehabilitation M.D. Status Post Paula Isaacs (Primary Dx) P, P.T. 12/07/2021 Office Visit Orthopedic Surgery Ceferino Rosa, Tear Knee Meniscus D.O. Current Subsequ ent Left (Primary D x) 12/05/2021 Clinical Family Medicine Norma Kenny, Communication ON AIR TALENT, C.N.P. 12/05/2021 Clinical Family Medicine Norma Kenny, Carmeni cation; Communication ON AIR TALENT, C.N.P. medication questions 11/30/2021 Refill Sanaz Mcallister, Med Refill P.A.-C., M.S. 11/26/2021 Nurse Only Urology Norma Kenny, Nurse Iza lerner (Knee ON AIR TALENT, C.N.P. immobilizer Maribel Edwards, and needs to be R.N. fitted for a ne w immobilizer) 11/26/2021 Clinical Support Physical Medicine Hugo Shelton, Arth roscopy Knee and Rehabilitation M.D. Status Post Paula Isaacs (Primary Dx) P, P.T. 11/18/2021 Refill Physical Medicine Melchor Westbrook, Med Re fill and Rehabilitation D.O. 11/13/2021 Clinical Support Physical Medicine Hugo Shelton, Arth roscopy Knee and Rehabilitation M.D. Status Post Paula Isaacs (Primary Dx) P, P.T. 11/12/2021 Office Visit Orthopedic Surgery Chriss Weinberg, Tear Knee Meniscus M.D. Current Subsequ ent Left (Primary D x) 11/06/2021 Clinical Support Physical Medicine Hugo Shelton, Arth roscopy Knee and Rehabilitation M.D. Status Post Paula Isaacs (Primary Dx) P, P.T. 11/05/2021 Clinical Orthopedic Surgery Bess Randhawa D, R.N. 11/05/2021 Clinical Orthopedic Surgery Bess Randhawa, R.N. 11/02/2021 Clinical Support Physical Medicine Hugo Shelton, Arth roscopy Knee and Rehabilitation M.D. Status Post Paula Isaacs (Primary Dx) P, P.T. 10/31/2021 Comprehensive Visit Physical Medicine Sanaz Mcallister, Tear Knee Meniscus Current Subsequent Left (Primary Dx); and Rehabilitation P.A.-C., M.S. Tear Knee Meniscus Current Subsequent Le ft; Paula Isaacs Arthroscopy Knee Status Post P, P.T. 10/29/2021 Anesthesia Event Andres Light, ON AIR TALENT, PEST MANAGEMENT SUPERVISOR Rubén Mosley APRN, CRNA 10/29/2021 Surgery Hugo Shelton, ARTHROSCOPY K LORENZO Mitchell MENISCUS WITH R OOT REPAIR 10/29/2021 Ancillary Procedure 10/29/2021 Hospital Encounter Hugo Shelton, Tear Kn ee Meniscus M.D. Current Subsequ ent Left 10/29/2021 Ancillary Procedure 10/29/2021 Clinical Orthopedic Surgery Bess Randhawa D, R.N. 10/26/2021 Office Visit Family Medicine Norma Kenny, Preoper ative Exam (Primary Dx); STEVEN CNikhilNNikhilP. Hyperlipidemia; Encounter For P reprocedural Laboratory Examination (COVID-19); Tear Knee Menis cus Current Subsequent Left from Last 3 Months Immunizations Name Administration Dates Next Due Influenza, Unspecified 02/17/2015 RZV (SHINGRIX) 07/17/2021 (Deferred: Patient Refused) SARS-COV-2 (COVID-19) - PFIZER (12 07/17/2021 (Deferred: Pat ient years or older) decision), 04/03/2021 Td (Adult), adsorbed 12/10/1994 Tdap 05/28/2012 influenza vaccine quad 02/05/2021, 01/18/2020, 12/22/2017 (FLUZONE/FLUARIX) (6 months and older)(PF) Family History Medical History Relation Name Comments ROMY disease Brother Hypertension Father Parkinsons disease Father Heart attack Maternal Grandfather No Known Problems Maternal Grandmother CVD - cardiovascular disease Mother Hypertension Mother Pacemaker battery Mother No Known Problems Paternal Grandfather No Known Problems Paternal Grandmother Hypertension Sister 1 No Known Problems Sister 2 Colon cancer Neg Hx Prostate cancer Neg Hx Relation Name Status Comments Brother Alive Father (Age 71) 3 yrs ago Maternal Grandfather Maternal Grandmother Alive Mother Alive Paternal Grandfather Paternal Grandmother Sister 1 Alive Sister 2 Alive Social History Tobacco Use Types Packs/Day Years Used Date Smoking Tobacco: Former Cigarettes 0 Smokeless Tobacco: Never Tobacco Cessation: Counseling Given: Yes Comments: Quit in 20s.--occasional cigar s Alcohol [...] or relatives? How often do you attend roman catholic or mu-ism More than 4 time s per year 09/17/2018 services? 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 Vital Signs Vital Sign Reading Time Taken Comments Blood Pressure 127/74 10/29/2021 10:30 AM CDT Pulse 85 12/07/2021 9:33 AM CDT Temperature 36.2 ??C (97.2 ??F) 12/07/2021 9:33 AM CDT Respiratory Rate 11 10/29/2021 10:30 AM CDT Oxygen Saturation 97% 12/07/2021 9:33 AM CDT Inhaled Oxygen Concentration - - Weight 153 kg (337 lb 11.9 oz) 12/07/2021 9:33 AM CDT Height 185 cm (6' 0.84) 12/07/2021 9:33 AM CDT Body Mass Index 44.76 12/07/2021 9:33 AM CDT Plan of Treatment Upcoming Encounters Date Type Specialty Care Team Description 02/15/2022 Office Visit Orthopedic Surgery Madyson Rosa saumya, D.O. [address] [facility] [place] [phone] (Wo rk) Health Maintenance Due Date Last Done Comments CT Colonography 1965 Cologuard 1965 Colonoscopy 1965 Colorectal Cancer Screening 1965 FIT 1965 Hepatitis B Vaccines (1 of 1965 3 - 3-dose series) Hepatitis C Screening 1965 Zoster Vaccines (1 of 2) 12/13/2017 COVID-19 Vaccine (2 - 04/24/2021 04/03/2021 Pfizer series) Influenza Vaccine (#1) 2021 02/05/2021, 01/18/2020, 12/22/2017, Additional history exists Visit: Chronic Disease, age 1001/25/2022 01/25/2021 18+ DTaP,Tdap,and Td Vaccines 05/28/2022 05/28/2012, 12/10/1994 (2 - Td or Tdap) Creatinine Level 10/26/2022 10/26/2021, 06/29/2021, 05/01/2021, Additional history exists Office Visit for Blood 10/26/2022 10/26/2021 Pressure Check / Re-check Potassium Level 10/26/2022 10/26/2021, 06/29/2021, 05/01/2021, Additional history exists Sodium Level 10/26/2022 10/26/2021, 06/29/2021, 05/01/2021, Additional history exists Fasting Glucose for 10/26/2024 10/26/2021, 06/29/2021, Diabetes Screening 05/01/2021, Additional history exists Lipid (Cholesterol) 05/01/2026 05/01/2021, 05/21/2019, Screening 09/10/2018, Additional history exists Depression Screening Completed 07/17/2021 (Annual PHQ-2) Pneumococcal vaccine (0-64 Aged Out No lo nger eligible years) based on patient 's age to complete this topic Medical Devices Implanted Type Area Feeder Tender Device Shelf Model / Identifier Expiration Serial / Date Lot Implant System, Secondary Fixation With Biocomposite Alberto Ruby nerony Left: Arthrex [id number] 06/28/2025 [id number] / Implanted: Qty: 1 on 10/29/2021 by Hugo Shelton M.D. at [facility] Implant Knee / [id number] Mesh Or Patch Mesh or Abdomen Patch Description: Mesh from umbilical hernia repair Mar 2016. Procedures Procedure Name Priority Date/Time Associated Diagnosis Comme nts LDA ANE NON-SURGICAL Routine 10/29/2021 7:41 Resu lts for this AIRWAY AM CDT procedure are i n the results section. ARTHROSCOPY KNEE 10/29/2021 7:35 Tear Knee Meniscus MENISCUS AM CDT Current Subsequent Left MC ANE NERVE BLOCK Routine 10/29/2021 7:32 Result s for this WITH ULTRASOUND AM CDT procedure ar e in the results section. MI US GUIDE PLC NDL Routine 10/29/2021 7:32 Resul ts for this AM CDT procedure are i n the results section. MI INJ ANES FEM NERVE Routine 10/29/2021 7:32 Res ults for this AM CDT procedure are i n the results section. ANESTHESIOLOGY IMAGE Routine 10/29/2021 7:25 Resu lts for this EXAM AM CDT procedure are i n the results section. GENERAL SURGERY IMAGE Routine 10/29/2021 4:25 Res ults for this EXAM AM CDT procedure are i n the results section. COMPREHENSIVE Routine 10/26/2021 12:09 Preoperative Exam Resul ts for this METABOLIC PANEL, S/P PM CDT procedu re are in the results section. CBC WITH DIFFERENTIAL, Routine 10/26/2021 12:09 Preoperative E xam Results for this B PM CDT procedure are i n the results section. SARS CORONAVIRUS-2 Routine 10/26/2021 12:09 Encounter For Resu lts for this RNA, V PM CDT Preprocedural procedure are in Laboratory the results Examination section. (COVID-19) ECG Routine 10/26/2021 12:01 Preoperative Exam Result s for this PM CDT procedure are i n the results section. from Last 3 Months Results LDA ANE NON-SURGICAL AIRWAY (10/29/2021 7:41 AM CDT) Narrative Andres Light APRN, CRNA - 03/2021 7:41 AM CDT Andres Light APRN, CRNA ? 10/29/2021 ??7:49 AM Airway Date/Time: 10/29/2021 7:41 AM Performed by: Andres Light APR N, CRNA Authorized by: Andres Light AP RN, CRNA Patient location during procedure: OR / [...] complications Andres Light APRN, CRNA ANESTHESIA ORDERABLES MI INJ ANES FEM NERVE, MI US GUIDE PLC NDL, MC ANE NERVE BLOCK WITH ULTRASOUND (10/29/2021 7:32 AM CDT) Narrative Andres Light APRN, CRNA - 03/2021 7:32 AM CDT Andres Light APRN, CRNA ? 10/29/2021 ??8:08 AM Regional Block Date/Time: 10/29/2021 7:32 AM Performed by: Andres Light APR N, CRNA Authorized by: Andres Light AP RN, CRNA Location: Pre Op / PACU PROCEDURE [...] sful procedure Other complications: none Andres Light ON AIR TALENT, PEST MANAGEMENT SUPERVISOR PROCEDURE/MINOR SURGIC AL ORDERABLES Non-Radiology Image-Anesthesiology Image Exam (10/29/2021 7:25 AM [...] Organization Address City/State/ZIP Code Phon e Number [facility] NA General Surgery Image Exam-General Surgery Image Exam [...] Organization Address City/State/ZIP Code Phon e Number [facility] NA SARS Coronavirus-2 RNA, V Asymptomatic (10/26/2021 12:09 PM CDT) [facility] Method Time Signature SARS-CoV-2 Swab, 10/26/2021 MKTO Specimen Nasopharynx 11:41 PM Source CDT SARS CoV-2 Undetected Undetected 10/26/2021 MKTO RNA, TMA 11:41 PM CDT Comment: SARS-CoV-2 RNA absent. This result does not rule out COVID-19 in the patient, as the sensitivity of the test depends o n the timing of the specimen collection and the quality of the specim en. Result should be correlated with patient's history and clinical presentat ion. ----ADDITIONAL INFORMATION---- This molecular amplification test was pe rformed using the Aptima SARS-CoV-2 assay ([employer] on the [employer] tem under emergency use authorization (EUA) by the U.S. Food and Drug Administ ration. Fact sheets for this EUA assay can be fo und at the following links: For Healthcare Providers: https://www.fd a.gov/media/576012/download For Patients: https://www.fda.gov/media/ 100678/download Specimen Anatomical Collection Method Collection Time Receive d Time (Source) Location / / Volume Laterality Varies 10/26/2021 12:09 10/26/2021 5:10 (Nasopharynx) PM CDT PM CDT Hugo Shelton M.D. LAB MICROBIOLOGY - GENERAL O RDERABLES Performing Organization Address City/State/ZIP Code Phon e Number [facility]- [address] [place] [id number] [place] [address] [place] [address] System in [place] [address] [facility] (ABNORMAL) CBC with Differential, Blood (10/26/2021 12:09 PM CDT) [facility] Method Time Signature Hemoglobin 12.7 (L) 13.2 - 10/26/2021 NPR[facility] 16.6 g/dL 2:33 PM CDT Hematocrit 38.0 (L) 38.3 - 10/26/2021 NPR[facility] 48.6 % 2:33 PM CDT Erythrocytes 3.91 (L) 4.35 - 10/26/2021 NPRG 5.65 2:33 PM CDT x10(12)/L MCV 97.2 78.2 - 10/26/2021 NPR[facility] 97.9 fL 2:33 PM CDT RBC Distrib Width 15.1 (H) 11.8 - 10/26/2021 NPR[facility] 14.5 % 2:33 PM CDT Platelet Count 129 (L) 135 - 317 10/26/2021 NPR[facility] x10(9)/L 2:33 PM CDT Leukocytes 5.6 3.4 - 9.6 10/26/2021 NPRG x10(9)/L 2:33 PM CDT Neutrophils 4.17 1.56 - 10/26/2021 NPRG 6.45 2:33 PM CDT x10(9)/L Lymphocytes 0.95 0.95 - 10/26/2021 NPRG 3.07 2:33 PM CDT x10(9)/L Monocytes 0.47 0.26 - 10/26/2021 NPRG 0.81 2:33 PM CDT x10(9)/L Eosinophils 0.02 (L) 0.03 - 10/26/2021 NPRG 0.48 2:33 PM CDT x10(9)/L Basophils 0.01 0.01 - 10/26/2021 NPRG 0.08 2:33 PM CDT x10(9)/L Specimen Anatomical Collection Method Collection Time Receive d Time (Source) Location / / Volume Laterality Blood (Blood, 10/26/2021 12:09 10/26/2021 1:44 Venous) PM CDT PM CDT Norma Kenny APRN, C.N.P. LAB BLOOD ADD-ON Performing Organization Address City/State/ZIP Code Phon e Number [facility]- [address] [place], [place] [address] [facility] NPR[facility] [place] [address] (ABNORMAL) Comprehensive Metabolic Panel (10/26/2021 12:09 PM CDT) Analysis Performed At Patho logist Time Signature Potassium, P 3.7 3.6 - 5.2 10/26/2021 NPRG mmol/L 2:37 PM CDT Sodium, P 135 135 - 145 10/26/2021 [facility] mmol/L 2:37 PM CDT Chloride, P 93 (L) 98 - 107 10/26/2021 NPR[facility] mmol/L 2:37 PM CDT Bicarbonate, P 27 22 - 29 10/26/2021 [facility] mmol/L 2:37 PM CDT Anion Gap, P 15 7 - 15 10/26/2021 NPR[facility] 2:37 PM CDT BUN (Blood Urea 11 8 - 24 10/26/2021 NPRG Nitrogen), P mg/dL 2:37 PM CDT Creatinine 0.57 (L) 0.74 - 10/26/2021 NPR[facility] 1.35 mg/dL 2:37 PM CDT eGFR-Black/Afri >90 >=60 10/26/2021 NPR[facility] can Moroccan mL/min/BSA 2:37 PM CDT Comment: ----ADDITIONAL INFORMATION---- Estimated GFR calculated using the 2009 CKD_EPI creatinine equation. eGFR Non-Black/ >90 >=60 mL/min/BSA 10/26/2021 2:37 PM CDT NPRG Comment: ----ADDITIONAL INFORMATION---- Estimated GFR calculated using the 2009 CKD_EPI creatinine equation. Calcium, Total, P 9.1 8.6 - 10.0 mg/dL 10/26/2021 2:37 PM CDT NPRG Glucose, P 114 70 - 140 mg/dL 10/26/2021 2:37 PM CDT N PRG Protein, Total, P 7.4 6.3 - 7.9 g/dL 10/26/2021 2:37 P M CDT NPRG Albumin, P 4.5 3.5 - 5.0 g/dL 10/26/2021 2:37 PM CDT N PRG Aspartate Aminotransferase 148 (H) 8 - 48 U/L 10/26/2021 2 :37 PM CDT NPRG (AST), P Alkaline Phosphatase, P 88 40 - 129 U/L 10/26/2021 2: 37 PM CDT NPRG Alanine Aminotransferase 97 (H) 7 - 55 U/L 10/26/2021 2:3 7 PM CDT NPRG (ALT), P Bilirubin, Total, P 1.0 <=1.2 mg/dL 10/26/2021 2:37 PM CDT NPRG Specimen Anatomical Collection Method Collection Time Receive d Time (Source) Location / / Volume Laterality Blood (Blood, 10/26/2021 12:09 10/26/2021 1:44 Venous) PM CDT PM CDT Norma Kenny APRN, C.N.P. LAB BLOOD ADD-ON Performing Organization Address City/State/ZIP Code Phon e Number [facility]- [address] [place] [address] [place] [address] [place] [address] ECG 12 Lead (10/26/2021 12:01 PM CDT) P athologist Signature Ventricular Rate 101 BPM MUSE ECG/Min MI Interval 170 ms MUSE QRSD Interval 86 ms MUSE QT Interval 344 ms MUSE QTC Interval 446 ms MUSE P [place] 66 degrees MUSE R [place] -1 degrees MUSE T Wave [place] 8 degrees MUSE Specimen Anatomical Collection Method Collection Time Receive d Time (Source) Location / / Volume Laterality 10/26/2021 12:01 10/26/2021 PM CDT 12:03 PM CDT Impressions MUSE - 10/26/2021 12:03 PM CDT Sinus tachycardia Otherwise normal ECG When compared with ECG of 19-FEB-2021 10 :37, No significant change was found Reviewed by MICHELLE Toledo Narrative This result has an attachment that is no t available. Procedure Note Stoney Moreno M.D., Ph.D. - 10/27/19 22 IMPRESSION: Sinus tachycardia Otherwise normal ECG When compared with ECG of 19-FEB-2021 10 :37, No significant change was found Reviewed by MICHELLE Toledo Viridiana Adams APRNN.P. ECG ORDERABLES Performing Organization Address City/State/ZIP Code Phon e Number MUSE MUSE NA from Last 3 Months Insurance Payer Benefit Plan / Subscriber ID Effective Dates Phone Addre ss Type Group [place] BLUE [id number] 2019-Prese [phone] [address] [address] EPO [place] [employer] [address] [place] [facility] [address] [phone] [address] (Home[facility] [place] [phone] Advance Directives For more information, please contact: [phone] Latest Code Status on File Code Status Date Activated Date Inactivated Comments Full Code 10/29/2021 9:36 AM 10/29/2021 1:07 PM Question Answer Comments Full Code: Discussed Code Status History Code Status Date Activated Date Inactivated Comments Full Code 02/05/2021 3:31 PM 02/07/2021 1:42 PM Question Answer Comments Full Code: Discussed Care Teams Manager Custom Relationship Specialty Start Date End Date Norma Kenny APRN, C.N.P. PCP - General 09/12/[address] [place] [phone]
--- OUTSIDE RECORDS SUMMARY | 2022-01-25 11:34 | XMS_ITS | Encounter Summary ---
:1965 Author Organization [facility] Address [address] [place] [address] Care Team Providers Name Role Phone Norma Kenny APRN C.N.P. Primary Care Provider [phone] Reason for Visit Reason Comments Communication medication questions Encounter Details Date Type Department Care Team Description 12/05/2021 Clinical Communication Department of Norma Kenny Co mmunication; Family Medicine in [place], medicatio n Erik Booth, C.N.P. questions [place] [address] [place] [phone] Social History Tobacco Use Types Packs/Day Years [...] or relatives? How often do you attend jain or mandaen More than 4 time s per year 09/17/2018 services? 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 - 12/05/2021 11:15 AM CDT Pt requested we review medications he has [...] 6 week follow up with the Orthopedic Dr. On Friday12/07/21. Pt will keep the acetaminophen [...] been updated today. Please advise as appropriate. Telephone Encounter - Leanne Solis - 12/05/2021 9:47 AM CDT MEDICATION QUESTION: What is the patient's question? Patient has some questions about some of his medications Medication name/dose: -- What pharmacy are you using today? --- Additional comments (if any): Special calling instructions: Ok to leave detailed message on voicemail? yes Portal- N/A He would prefer a phone call from Norma's nurse and should be available most of the day on his cell. documented in this encounter Plan of Treatment Upcoming Encounters Date Type Specialty Care Team Description 02/15/2022 Office Visit Orthopedic Surgery Madyson Rosa il, D.ONikhil [address] [place], [place] [phone] (Wo rk) documented as of this encounter Visit Diagnoses Not on filedocumented in this encounter Care Teams Pork Cutlet Maker Relationship Specialty Start Date End Date Norma Kenny APRN, C.N.P. PCP - General 09/12/[address] [place] [phone] documented as of this encounter
--- OUTSIDE RECORDS SUMMARY | 2022-01-25 11:35 | XMS_ITS | Encounter Summary ---
:1965 Author Organization [facility] Address [address] [place] [address] Care Team Providers Name Role Phone Norma Kenny APRN, C.N.P. Primary Care Provider Encounter Details Date Type Department Care Team Description 08/07/2021 Clinical Communication [facility] [phone] Social History Tobacco Use Types Packs/Day Years [...] or relatives? How often do you attend yazidism or moravian More than 4 time s per year 09/17/2018 services? 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 documented in this encounter Plan of Treatment Upcoming Encounters Date Type Specialty Care Team Description 02/15/2022 Office Visit Orthopedic Surgery Madyson Rosa il, D.O. [address] [place], [place] [phone] (Wo rk) documented as of this encounter Visit Diagnoses Not on filedocumented in this encounter Additional Health Concerns Assessment Noted Time PHQ-9 Depression Total Score: 4 03/02/2021 10:28 AM CS T documented as of this encounter Care Teams Manager Maintenance Relationship Specialty Start Date End Date Norma Kenny, STEVEN, C.N.P. PCP - General 09/12/[address] [place] [phone] documented as of this encounter
--- OUTSIDE RECORDS SUMMARY | 2022-01-25 11:35 | XMS_ITS | Encounter Summary ---
:1965 Author Organization [facility] Address [address] [place] [address] Care Team Providers Name Role Phone Norma Kenny APRN, C.N.P. Primary Care Provider [phone] Reason for Visit Reason Comments Med Refill Encounter Details Date Type Department Care Team Description 10/22/2021 Refill Department of Family Medicine Caden Kenny APRN, Med Refill in [facility] so C.N.P. [address] [place] [address] [place] [phone] (Wo rk) Social History Tobacco Use Types [...] or relatives? How often do you attend mosque or yazidi More than 4 time s per year 09/17/2018 services? 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 [facility] 06/29/21 Office Visit Norma Kenny APRN, C.N.P. [facility] 05/01/21 Office Visit Norma Kenny APRN, C.N.P. [facility] 04/03/21 Office Visit Norma Kenny APRN, C.N.P. [facility] 03/02/21 Office Visit Norma Kenny APRN, C.N.P. [facility] 01/25/21 Office Visit Efe Boyle D.O. [facility] Showing recent visits within past 365 days with a meds authorizing provider and meeting all other requirements Future Appointments Date Type Provider Dept 10/26/21 Appointment Norma Kenny APRN, C.N.P. [facility] Showing future appointments within next 90 days with a meds authorizing provider and meeting all other requirements documented in this encounter Plan of Treatment Upcoming Encounters Date Type Specialty Care Team Description 02/15/2022 Office Visit Orthopedic Surgery Madyson Rosa D.ONikhil [address] [place] [phone] (Wo rk) documented as of this encounter Visit Diagnoses Diagnosis Anxiety documented in this encounter Additional Health Concerns Assessment Noted Time PHQ-9 Depression Total Score: 4 03/02/2021 10:28 AM CS T documented as of this encounter Care Teams Television Camera Operator Relationship Specialty Start Date End Date Norma Kenny APRN, C.N.P. PCP - General 09/12/[address] [place] [phone] documented as of this encounter
--- OUTSIDE RECORDS SUMMARY | 2022-01-25 11:35 | XMS_ITS | Encounter Summary ---
:1965 Author Organization [facility] Address [address] [place] [address] Care Team Providers Name Role Phone Norma Kenny APRN, C.N.P. Primary Care Provider [phone] Reason for Visit Reason Comments Med Refill Encounter Details Date Type Department Care Team Description 08/23/[address] [facility], [place] M.D. Med Refill [facility], [facility] on Floor [address] [place] [phone] (Wo rk) Social History Tobacco Use Types [...] or relatives? How often do you attend catholic or mormon More than 4 time s per year 09/17/2018 services? 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 PCP - General 09/12/[address] [place] [facility] [place] [phone] documented as of this encounter
--- OUTSIDE RECORDS SUMMARY | 2022-01-25 11:35 | XMS_ITS | Encounter Summary ---
:[address] [facility] Address [address] [place] [address] Care Team Providers Name Role Phone Norma Kenny APRN C.N.P. Primary Care Provider [phone] Reason for Referral Outpatient (Routine) - Authorized Specialty Diagnoses / Procedures Referred By Contact Refer red To Contact Diagnoses Preoperative Exam Norma Kenny APRN, [facility] Procedures ECG 12 Lead C.N.P. [address] [place] [phone] Referral ID Status Reason Start Date Expiration Date Visits V isits Requested Authorized [id number] Authorized 10/26/2021 10/26/2022 1 1 Reason for Visit Reason Comments Pre-op Exam Encounter Details Date Type Department Care Team Description 10/26/2021 Office Visit Department of Norma Philippe Preop erative Exam (Primary Dx); Medicine in [facility] STEVEN Salas, C.N.P. Hyperlipidemia; [place], [place] [address] Encounter For Preprocedural Laboratory E xamination (COVID-19); [address] [place], [place] Tear Knee Meniscus [place] [address] [phone] Social History Tobacco Use Types Packs/Day Years [...] or relatives? How often do you attend mandaen or christianity More than 4 time s per year 09/17/2018 services? 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 - 10/26/2021 11:00 AM CDT SUBJECTIVE CHIEF COMPLAINT/REASON FOR VISIT Pre-op Exam HISTORY OF PRESENT ILLNESS Saad Murray is a 55 y.o. male who presents for a preoperative evaluation. The patient is scheduled for a Left Knee Arthroscopy with Meniscus Repair on 10/29/[address] Shelton at [facility]. The following portions of the patient's history were reviewed and updated as appropriate: allergies,current medications, family history, medical history, social history, surgical history and problem list and are outlined below. Twin has had a known left meniscus tear for quite sometime. He has met with orthopedics and has been trying to manage this conservatively. Unfortunately, he states about 2 weeks ago he tripped on his dog while using a crutch and had a fall. He saw his orthopedist 4 days ago who repeated knee X-rays, and they decided on surgery for Sunday 10/29. He has had worsening pain, swelling, bruising over the course of the week. He tried the Mobic that was prescribed but this made him vomit. He is in a significant amount of pain, he states. The patient is not aware of a family history of sudden cardiac , malignant hyperthermia, or other anesthesia complications.. Personal or family history of bleeding or clotting disorders: No. History of blood transfusion: transfusion(s): No. The patient has no reported personal history of complications from anesthesia. Preoperative functional assessment: good, no symptoms with moderate exertion. REVIEW OF SYSTEMS A complete review of systems was performed and was negative other than as stated. PROBLEM LIST: Patient Active Problem List Diagnosis Hypertension Essential Primary Body Mass Index 40.0 To 44.9 Adult (HCC) Hypercholesterolemia Gastroesophageal Reflux Disease Palpitations Pain Shoulder Left Pain Hip Right Acute Lower Respiratory Infection Due To COVID-19 Pain Low Back Chronic Tear Knee Meniscus Current Subsequent Left CURRENT MEDICATIONS Current Outpatient Medications Medication Sig atorvastatin (LIPITOR) 20 mg tablet Take 1 tablet (20 mg total) by mouth at bedtime. NEEDS LABS BEFORE NEXT REFILL lisinopriL (PRINIVIL,ZESTRIL) 20 mg tablet Take 1 tablet (20 mg total) by mouth daily. LORazepam (ATIVAN) 1 mg tablet Take 1 tablet (1 mg total) by mouth at bedtime as needed for anxiety. metoprolol succinate (TOPROL-XL) 25 mg 24 hr tablet TAKE 1 TABLET(25 MG) BY MOUTH DAILY FOR BLOOD PRESSURE sertraline (ZOLOFT) 100 mg tablet TAKE 1 AND 1/2 TABLETS(150 MG) BY MOUTH DAILY traMADoL (ULTRAM) 50 mg tablet Take 1 tablet (50 mg total) by mouth every 6 (six) hours as needed for pain for up to 3 days Indications: Prolonged Acute Pain/Traumatic Injury. ALLERGIES/CONTRAINDICATIONS Allergies Allergen Reactions Mobic [Meloxicam] GI intolerance MEDICAL HISTORY Past Medical History: Diagnosis Date Gastroesophageal Reflux Disease Hypercholesterolemia Hypertension NOS Hypokalemia 02/06/2021 Hyponatremia 02/05/2021 Pain Leg Bilateral 02/05/2021 SURGICAL HISTORY Past Surgical History: Procedure Laterality Date REPAIR OF UMBILICAL HERNIA N/A 04/12/2016 Repair of umbilical hernia VASECTOMY N/A 03/05/2005 Vasectomy FAMILY HISTORY Family History Problem Relation Age of Onset Hypertension Father Parkinsons disease Father Hypertension Mother CVD - cardiovascular disease Mother Pacemaker battery Mother ROMY disease Brother Hypertension Sister No Known Problems Maternal Grandmother Heart attack Maternal Grandfather No Known Problems Paternal Grandmother No Known Problems Paternal Grandfather No Known Problems Sister Colon cancer Neg Hx Prostate cancer Neg Hx SOCIAL HISTORY Social History Tobacco Use Smoking status: Former Packs/day: 0.00 Types: Cigarettes Smokeless tobacco: Never Tobacco comments: Quit in 20s.--occasional cigars Vaping Use Vaping Use: never used Substance Use Topics Alcohol use: Yes Comment: Limits to weekends; Drinks beer or mixed drinks. Drug use: No Social History Social History Narrative He is . He is currently not in any relationship since his of breast cancer 2-3 years ago. Lives with his son Aram who is a senior this year. Older daughter is in 3rd year 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 Has no pets. Plans to move into [employer] this year after renovation and sell current home. OBJECTIVE VITAL SIGNS BP 136/83 Pulse (!) 112 Temp 36.7 ??C Resp 20 Wt (!) 143 kg SpO2 94% BMI 40.44 kg/m?? PHYSICAL EXAMINATION General: Patient is alert, oriented and appears to be in no distress. HENT: Head is atraumatic and normocephalic. Ears are externally normal. TMs normal. Neck is supple and without mass or adenopathy. Cardiovascular: Heart is regular rate and rhythm. There are no murmurs, gallops or rubs. Respiratory: Breathing is nonlabored. Lungs are clear to auscultation bilaterally. Extremities: There is fairly significant left knee edema, warmth, bruising today. He is unable to sit still, so gets up and down, due to pain. Mildly limited ROM. Neurologic: No focal neurologic deficit noted. LLE neurovascularly intact. Skin: No rashes or lesions present. ASSESSMENT / PLAN #1 Preoperative Exam Labs and EKG today. COVID swab completed. His knee is swollen today. I advised low activity, keep elevated, and ice as much as possible over the weekend. He will report on Friday as scheduled, or report to urgent care over the weekend with any concerns. - CBC with Differential, Blood - Comprehensive Metabolic Panel - ECG 12 Lead #2 Hyperlipidemia - atorvastatin (LIPITOR) 20 mg tablet; Take 1 tablet (20 mg total) by mouth at bedtime. NEEDS LABS BEFORE NEXT REFILL, Starting Fri10/26/2021, Normal #3 Encounter For Preprocedural Laboratory Examination (COVID-19) - SARS Coronavirus-2 RNA, V Asymptomatic #4 Tear Knee Meniscus Current Subsequent Left Tramadol BID x 3 days, alternating with Tylenol 1000mg BID. Hold AM of surgery. Medication discussed. Handicap parking sticker completed. - traMADoL (ULTRAM) 50 mg tablet; Take 1 tablet (50 mg total) by mouth every 6 (six) hours as neededfor pain for up to 3 days Indications: Prolonged Acute Pain/Traumatic Injury., Starting Fri10/26/2021, Until Fri10/29/2021 at 2359, Normal The patient is scheduled for a low risk procedure. He is a moderate risk candidate for the upcoming procedure. ASA 3 - Patient with moderate systemic disease with functional limitations. Revised cardiac risk index is 0-0.5%. He will proceed with the upcoming surgery without further evaluation. Labs: CBC, CMP today EKG: NSR - some tachycardia due to pain. ECG 12 Lead Result Date: 10/26/2021 Sinus tachycardia Otherwise normal ECG When compared with ECG of 19-FEB-2021 10:37, No significant change was found Reviewed by MICHELLE Toledo Proceed with surgery as planned. No food or liquids the morning of surgery. Call surgeon if develops respiratory illness, fever, or other illness. Written preoperative instructions given. Norma Kenny APRN, C.N.P. documented in this encounter Plan of Treatment Upcoming Encounters Date Type Specialty Care Team Description 02/15/2022 Office Visit Orthopedic Surgery RavinyazminMadyson clayton, DaydayO. [address] [place], [place] [phone] (Wo rk) documented as of this encounter Procedures Procedure Name Priority Date/Time Associated Diagnosis Comme nts SARS CORONAVIRUS-2 Routine 10/26/2021 12:09 Encounter For Resu lts for this RNA, V PM CDT Preprocedural procedure are in Laboratory the results Examination section. (COVID-19) CBC WITH Routine 10/26/2021 12:09 Preoperative Exam Result s for this DIFFERENTIAL, B PM CDT procedure ar e in the results section. COMPREHENSIVE Routine 10/26/2021 12:09 Preoperative Exam Resul ts for this METABOLIC PANEL, S/P PM CDT procedu re are in the results section. ECG Routine 10/26/2021 12:01 Preoperative Exam Result s for this PM CDT procedure are i n the results section. documented in this encounter Results SARS Coronavirus-2 RNA, V Asymptomatic (10/26/2021 12:09 PM CDT) [facility] Method Time Signature SARS-CoV-2 Swab, 10/26/2021 [place] [...] pe rformed using the Aptima SARS-CoV-2 assay ([employer] on the xClouds tem under emergency use authorization (EUA) by the U.S. Food and Drug Administ ration. Fact sheets for this EUA assay can be fo und at the following links: For Healthcare Providers: https://www.fd a.gov/media/949003/download For Patients: https://www.[employer].gov/media/ 911236/download Specimen Anatomical Collection Method Collection Time Receive d Time (Source) Location / / Volume Laterality Varies 10/26/2021 12:09 10/26/2021 5:10 (Nasopharynx) PM CDT PM CDT Hugo Shelton M.D. LAB MICROBIOLOGY - GENERAL O RDERABLES Performing Organization Address City/State/ZIP Code Phon e Number [facility]- [address] [place] [address] [place] [address] System in [place] [address] [place] [address] (ABNORMAL) Comprehensive Metabolic Panel (10/26/2021 12:09 PM [...] 10/26/2021 1:44 Venous) PM CDT PM CDT Viridiana Adams APRNNNikhilPNikhil LAB BLOOD ADD-ON Performing Organization Address City/State/ZIP Code Phon e Number [facility]- [address] [place] [address] [place] [address] [place] [address] [address] [facility] (ABNORMAL) CBC with Differential, Blood (10/26/2021 12:09 PM CDT) [facility] Method Time Signature Hemoglobin 12.7 (L) 13.2 [...] Organization Address City/State/ZIP Code Phon e Number [facility]- [address] [place], [place] [address] [place] [address] [place] [address] [facility] [address] [place] ECG 12 Lead (10/26/2021 12:01 PM CDT) P athologist Signature Ventricular Rate 101 BPM MUSE ECG/Min NE Interval 170 ms MUSE QRSD Interval 86 ms MUSE QT Interval 344 ms MUSE QTC Interval 446 ms MUSE P [place] 66 degrees MUSE R [place] -1 degrees MUSE T Wave [place] 8 degrees MUSE Specimen Anatomical Collection Method [...] change was found Reviewed by MICHELLE Toledo Norma Kenny APRN, C.N.P. ECG ORDERABLES Performing Organization Address City/State/ZIP Code Phon e Number [facility]OM[facility] NA documented in this encounter Visit Diagnoses Diagnosis Preoperative Exam - Primary Hyperlipidemia Encounter For Preprocedural Laboratory E xamination (COVID-19) Tear Knee Meniscus Current Subsequent Le ft documented in this encounter Additional Health Concerns Infection Onset Date Last Indicated Resolved Time COVID19 Pending 10/26/2021 10/26/2021 10/26/2021 11:42 PM CDT Assessment Noted Time PHQ-9 Depression Total Score: 4 03/02/2021 10:28 AM CS T documented as of this encounter Care Teams Jig Grinder Set Up Operator Relationship Specialty Start Date End Date Norma Kenny APRN, C.N.P. PCP - General 09/12/[address] [place] [phone] documented as of this encounter
--- OUTSIDE RECORDS SUMMARY | 2022-01-25 11:35 | XMS_ITS | Encounter Summary ---
:1965 Author Organization [facility] Address [address] [place] [address] Care Team Providers Name Role Phone Norma Kenny APRN, C.NNikhilPNikhil Primary Care Provider [phone] Reason for Referral MRI/CAT/PET Scan (Routine) - Closed Specialty Diagnoses / Procedures Referred By Contact Refer red To Contact Radiology Diagnoses Pain Knee Left Effusion Knee Left Melchor Westbrook [facility] Region Procedures MR Knee Left without IV Contrast MO MRI LWR EXT JOINT WO CNTRST [address] [place] [address] Referral ID Status Reason Start Date Expiration Date Visits Requ ested Visits Authorized [id number] Closed 07/13/2021 07/13/2022 1 1 Reason for Visit MRI/CAT/PET Scan (Routine) - Closed Specialty Diagnoses / Procedures Referred By Contact Refer red To Contact Radiology Diagnoses Pain Knee Left Effusion Knee Left Melchor Westbrook [facility] Region Procedures MR Knee Left without IV Contrast MO MRI LWR EXT JOINT WO CNTRST [address] [place] [address] Referral ID Status Reason Start Date Expiration Date Visits Requ ested Visits Authorized [id number] Closed 07/13/2021 07/13/2022 1 1 Encounter Details Date Type Department Care Team Description 07/26/2021 Hospital Encounter Department of Pietro, Melchor Pain Kn ee Left; Radiology in [place]. 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 atorvastatin (LIPITOR) 20 Take 1 tablet (20 90 tablet 3 03/202110/04/2021 mg tabletIndications: mg total) by mouth Hyperlipidemia at bedtime. NEEDS LABS BEFORE NEXT REFILL lisinopriL TAKE 1 TABLET(20 30 tablet 0 07/23/2021 08/24/19 22 (PRINIVIL,ZESTRIL) 20 mg MG) BY MOUTH DAILY tablet metoprolol succinate TAKE 1 TABLET(25 90 tablet 3 10/05/2021 (TOPROL-XL) 25 mg 24 hr MG) BY MOUTH DAILY tabletIndications: FOR BLOOD PRESSURE Palpitations naproxen (NAPROSYN) 500 Take 1 tablet (500 60 tablet 0 05/2908/17/2021 mg tabletIndications: mg total) by mouth Pain Low Back Chronic 2 (two) times a day as needed for pain (pain). pantoprazole (PROTONIX) Take 1 tablet (20 60 tablet 1 04/1210/26/2021 20 mg EC tablet mg total) by mouth 2 (two) times a day. sertraline (ZOLOFT) 100 TAKE 1 AND 04/01 135 tablet 0 07/25/19 22 10/23/2021 mg tabletIndications: TABLETS(150 MG) BY Anxiety MOUTH DAILY documented as of this encounter Plan of Treatment Upcoming Encounters Date Type Specialty Care Team Description 02/15/2022 Office Visit Orthopedic Surgery Madyson Rosa, D.ONikhil [address] [place] [phone] (Wo rk) documented as of this encounter Procedures Procedure Name Priority Date/Time Associated Comments Diagnosis MR KNEE LEFT RAD - Routine 07/26/2021 8:15 Pain Knee Left Results for this WITHOUT IV (most inpatients AM CDT Effusion Knee procedure are in CONTRAST and all Left the results outpatients) section. documented in this encounter Results MR Knee Left without IV Contrast (07/26/2021 8:15 AM CDT) Anatomical Region Laterality Modality Lower Extremity, Knee, Musculoskeletal RST LOS, Left Magnetic Resonance Musculoskeletal ARZ LOS, Muskuloskeletal FLA LOS Specimen (Source) Anatomical Collection Method Collection Time Re ceived Time Location / / Volume Laterality 07/26/2021 10:57 AM CDT Impressions 07/26/2021 11:11 AM CDT 1. ??Tear of the medial meniscus posteri or root attachment. 2. ??Marginal chondral loss with associa tim marrow signal abnormality in the medial tibiofemoral compartment. Small focus of high-grade c hondral loss in the medial femoral condyle posterior weightbearing zone. 3. ??Focal full-thickness cartilage loss in the inferior central trochlea. 4. ??Intact cruciate and collateral liga ments. No lateral meniscus tear. 5. ??Moderate knee joint effusion. Narrative 07/26/2021 11:11 AM CDT EXAM: MR KNEE LEFT WITHOUT IV CONTRAST COMPARISON:Knee radiograph from 2 FINDINGS: Medial meniscus: Tear of the posterior r oot attachment with partial extrusion of the meniscus body. Intrasubstance signal abnormality in the posterior horn and body. Lateral meniscus: No tear Ligaments: The ACL, PCL, MCL, and LCL ar e intact. Extensor mechanism: The quadriceps and p atellar tendons are intact. Cartilage: 6 mm focus of full-thickness cartilage loss and subjacent mild marrow signal change in the inferior central trochlea. Patellar cartilage is intact. 3 mm focus of near full-thickness versus full-thickness cartilage loss in the medial femoral condyle posterior weightbearing zone (series 6 i mage 9, series 3 image 20). Chondral loss along the very medial margin of the medial tibiofemoral compartment. Subtle medial tibial plateau cartilage fraying. Lateral tibiofemoral compartment cartila ge is intact. Effusion: Moderate, including lobulated fluid extending into the popliteus tendon sheath. Pryor's cyst: None Popliteal/tibial artery: No aberrant ant erior tibial artery. Other: Peripheral marrow signal abnormal ity in the medial femoral condyle and less so in the medial tibial plateau, favored to be degenerati ve in etiology. No discrete fracture. Medial knee varicose veins. Nonspecific anterior knee subcuta neous edema. Procedure Note Marcell Sarah M.D. - 07/26/2021Formattin g of this note might be different from the original. EXAM: MR KNEE LEFT WITHOUT IV CONTRAST COMPARISON:Knee radiograph from 2 FINDINGS: Medial meniscus: Tear of the posterior r oot attachment with partial extrusion of the meniscus body. Intrasubstance signal abnormality in the posterior horn and body. Lateral meniscus: No tear Ligaments: The ACL, PCL, MCL, and LCL ar e intact. Extensor mechanism: The quadriceps and p atellar tendons are intact. Cartilage: 6 mm focus of full-thickness cartilage loss and subjacent mild marrow signal change in the inferior central trochlea. Patellar cartilage is intact. 3 mm focus of near full-thickness versus full-thickness cartilage loss in the medial femoral condyle posterior weightbearing zone (series 6 i mage 9, series 3 image 20). Chondral loss along the very medial margin of the medial tibiofemoral compartment. Subtle medial tibial plateau cartilage fraying. Lateral tibiofemoral compartment cartila ge is intact. Effusion: Moderate, including lobulated fluid extending into the popliteus tendon sheath. Pryor's cyst: None Popliteal/tibial artery: No aberrant ant erior tibial artery. Other: Peripheral marrow signal abnormal ity in the medial femoral condyle and less so in the medial tibial plateau, favored to be degenerati ve in etiology. No discrete fracture. Medial knee varicose veins. Nonspecific anterior knee subcuta neous edema. IMPRESSION: 1. Tear of the medial meniscus posterior root attachment. 2. Marginal chondral loss with associate d marrow signal abnormality in the medial tibiofemoral compartment. Small focus of high-grade c hondral loss in the medial femoral condyle posterior weightbearing zone. 3. Focal full-thickness cartilage loss i n the inferior central trochlea. 4. Intact cruciate and collateral ligame nts. No lateral meniscus tear. 5. Moderate knee joint effusion. Melchor CM MRI PROCEDURES documented in this encounter Visit Diagnoses Diagnosis Pain Knee Left Effusion Knee Left documented in this encounter Additional Health Concerns Assessment Noted Time PHQ-9 Depression Total Score: 4 03/02/2021 10:28 AM CS T documented as of this encounter Care Teams Cap And Stud Machine Operator Relationship Specialty Start Date End Date Norma Kenny APRN, C.N.P. PCP - General 09/12/[address] [place] [phone] documented as of this encounter
--- OUTSIDE RECORDS SUMMARY | 2022-01-25 11:35 | XMS_ITS | Encounter Summary ---
:1965 Author Organization [facility] Address [address] [place] [address] Care Team Providers Name Role Phone Norma Kenny APRN, C.N.P. Primary Care Provider [phone] Reason for Visit Reason Comments Med Refill Sertraline Encounter Details Date Type Department Care Team Description 07/21/2021 Refill Department of [facility] Norma Kenny Me d Refill (Sertraline/) Medicine in [facility] STEVEN, C. N.P. [place] [address] [place] [phone] Social History Tobacco Use Types Packs/Day Years [...] or relatives? How often do you attend hinduism or uatsdin More than 4 time s per year 09/17/2018 services? 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 - 07/23/2021 8:42 AM CDT Name of medication: Requested Prescriptions Pending Prescriptions Disp Refills ??? sertraline (ZOLOFT) 100 mg tablet [Pharmacy Med Name: SERTRALINE 100MG TABLETS] 135 tablet 0 Sig: TAKE 1 AND 1/2 TABLETS(150 MG) BY MOUTH DAILY Last refilled: 04/23/21 Additional information: Last Depression/Anxiety Last PHQ-9 PHQ9 Score 07/11/2017 09/17/2018 03/02/2021 PHQ-9 Total Score (max 27) 4 2 4 and Last MELODY-7 GAD7 Score 03/02/2021 MELODY-7 Total Score (max 21) 8 Correct Pharmacy Selected in Epic: Yes Last/Next Appt: Last Appointment: 07/17/2021 Future appointment None scheduled documented in this encounter Plan of Treatment Upcoming Encounters Date Type Specialty Care Team Description 02/15/2022 Office Visit Orthopedic Surgery Madyson Rosa, D.ONikhil [address] [place], [place] [phone] (Wo rk) documented as of this encounter Visit Diagnoses Diagnosis Anxiety documented in this encounter Additional Health Concerns Assessment Noted Time PHQ-9 Depression Total Score: 4 03/02/2021 10:28 AM CS T documented as of this encounter Care Teams Well Driller Helper Relationship Specialty Start Date End Date Norma Kenny, STEVEN, C.N.P. PCP - General 09/12/[address] [place] [phone] documented as of this encounter
--- OUTSIDE RECORDS SUMMARY | 2022-01-25 11:35 | XMS_ITS | Encounter Summary ---
:1965 Author Organization [facility] Address [address] [place] [address] Care Team Providers Name Role Phone Norma Kenny APRN, C.N.P. Primary Care Provider [phone] Reason for Referral Outpatient (Routine) - Closed Specialty Diagnoses / Procedures Referred By Contact Refer red To Contact Diagnoses Pain Knee Left Hugo Shelton M.D. [facility] Procedures DX Knee Left 4+ Views [address] [place] [address] Referral ID Status Reason Start Date Expiration Date Visits Requ ested Visits Authorized [id number] Closed 10/22/2021 10/22/2022 1 1 hysical Therapy (Routine) - Authorized Specialty Diagnoses / Procedures Referred By Contact Refer red To Contact Diagnoses Tear Knee Meniscus Current Subsequent Left Hugo Shelton M.D. [facility] Procedures PT Evaluate and treat [address] [place] [address] Referral ID Status Reason Start Date Expiration Date Visits V isits Requested Authorized [id number] Authorized 10/22/2021 10/22/2022 12 12 Reason for Visit Reason Comments Pain Fell about 1 1/2 weeks ago. Knee was not swollen prior to fall. Meniscus Tear - Was doing ok until th is happened. Swelling Fell about 1 1/2 weeks ago. Knee was not swollen prior to fall. Meniscus Tear - Was doing ok until th is happened. Follow-up Outpatient (Routine) - Closed Specialty Diagnoses / Procedures Referred By Contact Refer red To Contact Orthopedic Surgery Diagnoses Pain Knee Left Efraín Norma Josue, [facility] LINTING MACHINE OPERATOR, C.N.P. [address] [place] [address] Referral ID Status Reason Start Date Expiration Date Visits Requ ested Visits Authorized [id number] Closed 07/17/2021 07/17/2022 1 1 Encounter Details Date Type Department Care Team Description 10/22/2021 Office Visit Department of Hugo Shelton, Tear Knee Me niscus Current Subsequent Left (Primary Dx); Orthopedic Surgery in M.D. Pain Knee Left [facility] a [address] [facility] [address] [place] [phone] Social History Tobacco Use [...] or relatives? How often do you attend congregational or voodoo More than 4 time s per year 09/17/2018 services? 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 - 10/22/2021 9:15 AM CDT SUBJECTIVE Saad Murray is a 55 y.o. male who presents for follow up of issues with his left knee. Briefly the patient has a known meniscal root tear on the left. We had discussed treatment options previously, the patient had voiced his desire to proceed with conservative measures as he would not be ableto take off from work. 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 Unfortunately, about a week and half ago, the patient was walking with a crutch and it was knocked over by his dog. He subsequently fell and his pain is markedly worse. It has now gotten to the point where he feels like there is no way he can bear this any longer. He would like to reconsider the surgical intervention.. Otherwise there have been no changes si nce my last dictation. PHYSICAL EXAM The patient is well appearing, and in no acute distress but was very tearful during his visit today.. They are alert and oriented. Patient is normocephalic, and has equal chest rise bilaterally. There is a normal inspiratory effort. Examination of the reveals a a fusion. He has tenderness to palpation about the medial joint line. IMAGE STUDIES @DX Knee Left 4+ Views Result Date: 10/22/2021 Impression: Small effusion with mild narrowing the medial compartment of the left knee. IMPRESSION AND PLAN Saad Murray is a 55 y.o. male with aim meniscus root tear. Repeat x- rays do not show any fractures. We again discussed the possibility of moving forward with a meniscal root repair. At this point, he is convinced that he cannot manage with just conservative measures and would like to proceed with surgery. He understands the plan as well as the recovery process which can be prolonged for meniscal root repairs. INFORMED CONSENT DISCUSSION We discussed treatment options and alternatives at length with Saad Murray including further conservative management versus procedural intervention. We discussed the risks of the treatment alternatives as well as the possible benefits associated with all proposed treatment options. The patient verbalized understanding of the alternatives, risks, and benefits of the treatment options, and declared a preference to continue with the planned intervention: Left knee arthroscopy with meniscal root repair, other procedures as indicated. Total time spent providing patient care was 20 minutes. This includes time spent with the patient and time spent on same day pre/post visit EMR documentation, orders, medications, procedures, and communication with other health anesthesiologist and critical care. documented in this encounter Plan of Treatment Upcoming Encounters Date Type Specialty Care Team Description 02/15/2022 Office Visit Orthopedic Surgery [facility] saumya, D.ONikhil [address] [place] [phone] (Wo rk) documented as of this encounter Results DX Knee Left 4+ Views (10/22/2021 10:14 AM CDT) Anatomical Region Laterality Modality Lower Extremity, Knee, Musculoskeletal RST LOS, Left Digital Radiography Musculoskeletal ARZ LOS, Muskuloskeletal FLA LOS Specimen (Source) Anatomical Collection Method Collection Time Re ceived Time Location / / Volume Laterality 10/22/2021 10:28 AM CDT Impressions 10/22/2021 10:30 AM CDT Small effusion with mild narrowing the m edial compartment of the left knee. Narrative 10/22/2021 10:30 AM CDT EXAM: DX KNEE LEFT 4+ VIEWS COMPARISON: 07/17/2021 FINDINGS: There is a small knee joint ef fusion. No fracture or destructive lesion is identified. There is mild narrowing of the medial co mpartment. Remaining compartments are preserved. Incidentally visualized right knee on th e AP, PA, and sunrise views is unremarkable except for soft tissue swelling and edema at the knee. O n the left there is no significant interval change compared with 07/17/2021. Procedure Note Srinivas Victoria Jr., M.D. - 2021 EXAM: DX KNEE LEFT 4+ VIEWS COMPARISON: 07/17/2021 FINDINGS: There is a small knee joint ef fusion. No fracture or destructive lesion is identified. There is mild narrowing of the medial co mpartment. Remaining compartments are preserved. Incidentally visualized right knee on th e AP, PA, and sunrise views is unremarkable except for soft tissue swelling and edema at the knee. O n the left there is no significant interval change compared with 07/17/2021. IMPRESSION: Small effusion with mild narrowing the m edial compartment of the left knee. Hugo CM DIAGNOSTIC IMAGING JOSE DE JESUS ANDRE documented in this encounter Visit Diagnoses Diagnosis Tear Knee Meniscus Current Subsequent Le ft - Primary Pain Knee Left Pain Knee Left documented in this encounter Additional Health Concerns Assessment Noted Time PHQ-9 Depression Total Score: 4 03/02/2021 10:28 AM CHI T documented as of this encounter Care Teams Machine Iii Coremaker Relationship Specialty Start Date End Date Norma Kenny, STEVEN, C.N.P. PCP - General 09/12/[address] [place] [phone] documented as of this encounter
--- OUTSIDE RECORDS SUMMARY | 2022-01-25 11:35 | XMS_ITS | Encounter Summary ---
:1965 Author Organization [facility] Address [address] [place] [address] Care Team Providers Name Role Phone Norma Kneny APRN C.N.P. Primary Care Provider [phone] Reason for Visit Reason Comments Results Encounter Details Date Type Department Care Team Description 08/01/2021 Clinical Communication Department of Chase Philippe, Results Medicine in [facility] PRINTER'S ASSISTANT C.N.PNikhil [place], [place] [address] [place] [phone] [phone] Social History Tobacco Use Types Packs/Day Years [...] or relatives? How often do you attend sikhism or jewish More than 4 time s per year 09/17/2018 services? 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 - 08/02/2021 7:57 AM CDT Patient is scheduled with Dr. Shelton on 08/06/21. Telephone Encounter - Jeannette Bernardo L.P.N. - 08/01/2021 12:57 PM CDT Message sent to Nguyen Dickson to contact pt to schedule appointment. Telephone Encounter - Melchor Westbrook D.O. - 08/01/2021 12:52 PM CDT I called the patient to review his MRI findings. He had canceled his appointment with Dr. Weinberg this past Friday but I do think it would be important for him to get in as soon as possible with his meniscal tear. Can we schedule him for next Friday with Dr. Shelton while he is in [place] and contactthe patient to let him know what time the appointment would be? I have discussed it with the patientand Dr. Shelton and both are in agreement. Telephone Encounter - Jeannette Bernardo L.P.N. - 08/01/2021 11:30 AM CDT This was ordered by Melchor Westbrook after a consult. Norma referred the pt to Ortho. She has not seen the results and she is out of clinic until Friday. I will forward it to him Telephone Encounter - Lorraine Cosby - 08/01/2021 8:49 AM CDT 07/26/21 MRI Results IMPRESSION: ?? 1. Tear of the medial meniscus posterior root attachment. ?? 2. Marginal chondral loss with associated marrow signal abnormality in the medial tibiofemoral compartment. Small focus of high-grade chondral loss in the medial femoral condyle posterior weightbearing zone. ?? 3. Focal full-thickness cartilage loss in the inferior central trochlea. ?? 4. Intact cruciate and collateral ligaments. No lateral meniscus tear. ?? 5. Moderate knee joint effusion. Pt was seen in clinic 07/17/21 with Norma kenny Plan: Pain Knee Left - Orthopedic Surgery - Knee non surgical consult (clinic); Future; Expected date: 07/17/2021 (After tests) He will have his X-rays later today. He may likely need an MRI of his knee, but we will have him consult ortho first to determine next steps. He will continue conservative therapy until that time. All questions answered. Please address MRI Telephone Encounter - Deb Holbrook - 08/01/2021 8:36 AM CDT Pt is seeking the results of his MRI from of last week. documented in this encounter Plan of Treatment Upcoming Encounters Date Type Specialty Care Team Description 02/15/2022 Office Visit Orthopedic Surgery Madyson Rosa, D.ONikhil [address] [place], [place] [phone] (Wo rk) documented as of this encounter Visit Diagnoses Not on filedocumented in this encounter Additional Health Concerns Assessment Noted Time PHQ-9 Depression Total Score: 4 03/02/2021 10:28 AM CS T documented as of this encounter Care Teams Char House Supervisor Relationship Specialty Start Date End Date Norma Kenny APRN, C.N.P. PCP - General 09/12/[address] [place] [phone] documented as of this encounter
--- OUTSIDE RECORDS SUMMARY | 2022-01-25 11:35 | XMS_ITS | Encounter Summary ---
:1965 Author Organization [facility] Address [address] [place] [address] Care Team Providers Name Role Phone Norma Kenny APRN, C.N.P. Primary Care Provider [phone] Reason for Referral Outpatient (Routine) - Closed Specialty Diagnoses / Procedures Referred By Contact Refer red To Contact Diagnoses Pain Knee Left Effusion Knee Left Melchor Westbrook D.O. [facility] Region Procedures DX Knee Left 4+ Views [address] [place] [phone] Referral ID Status Reason Start Date Expiration Date Visits Requ ested Visits Authorized [id number] Closed 07/13/2021 07/13/2022 1 1 Reason for Visit Outpatient (Routine) - Closed Specialty Diagnoses / Procedures Referred By Contact Refer red To Contact Diagnoses Pain Knee Left Effusion Knee Left Melchor Westbrook D.O. [facility] Region Procedures DX Knee Left 4+ Views [address] [place] [phone] Referral ID Status Reason Start Date Expiration Date Visits Requ ested Visits Authorized [id number] Closed 07/13/2021 07/13/2022 1 1 Encounter Details Date Type Department Care Team Description 07/17/2021 Hospital Encounter Department of Melchor Westbrook Kn ee Left; Radiology, [place] O, D.O. 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 sertraline (ZOLOFT) 100 Take 1.5 tablets 135 tablet 0 202107/24/2021 mg tabletIndications: (150 mg total) by Anxiety mouth daily. documented as 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 [address] [place] [phone] (Wo rk) documented as of this encounter Procedures Procedure Name Priority Date/Time Associated Comments Diagnosis DX KNEE LEFT 4+ RAD - Routine 07/17/2021 10:37 Pain Knee Left Results for this VIEWS (most inpatients AM CDT Effusion Knee procedure are in and all Left the results outpatients) section. documented in this encounter Results DX Knee Left 4+ Views (07/17/2021 10:37 AM CDT) Anatomical Region Laterality Modality Lower Extremity, Knee, Musculoskeletal RST LOS, Left Digital Radiography Musculoskeletal ARZ LOS, Muskuloskeletal FLA LOS Specimen (Source) Anatomical Collection Method Collection Time Re ceived Time Location / / Volume Laterality 07/17/2021 11:49 AM CDT Impressions 07/17/2021 11:50 AM CDT Fusion in the suprapatellar bursa otherw ise an unremarkable study. Narrative 07/17/2021 11:50 AM CDT EXAM: DX KNEE LEFT 4+ VIEWS COMPARISON: None FINDINGS: The bones are intact and show no evidence of fracture or focal destruction. The joint spaces are maintained. There is an effus ion in the suprapatellar bursa Procedure Note Romaine Westbrook M.D. - 07/17/2021Forma tting of this note might be different from the original. EXAM: DX KNEE LEFT 4+ VIEWS COMPARISON: None FINDINGS: The bones are intact and show no evidence of fracture or focal destruction. The joint spaces are maintained. There is an effus ion in the suprapatellar bursa IMPRESSION: Fusion in the suprapatellar bursa otherw ise an unremarkable study. Melchor CM DIAGNOSTIC IMAG[facility] JOSE DE JESUS ANDRE documented in this encounter Visit Diagnoses Diagnosis Pain Knee Left Effusion Knee Left documented in this encounter Additional Health Concerns Assessment Noted Time PHQ-9 Depression Total Score: 4 03/02/2021 10:28 AM CS T documented as of this encounter Care Teams Cell Reliner Relationship Specialty Start Date End Date Norma Kenny, PUBLIC SERVICE REPRESENTATIVE, C.N.P. PCP - General 09/12/[address] [place] [phone] documented as of this encounter
--- OUTSIDE RECORDS SUMMARY | 2022-01-25 11:35 | XMS_ITS | Encounter Summary ---
:1965 Author Organization [facility] Address [address] [place] [address] Care Team Providers Name Role Phone Norma Kenny APRN, C.N.P. Primary Care Provider [phone] Reason for Visit Reason Comments Med Refill Encounter Details Date Type Department Care Team Description 07/21/[address] [facility], [place] M.D. Med Refill [facility] on Floor [address] [place] [phone] (Wo rk) Social History Tobacco Use Types [...] or relatives? How often do you attend advent or caodaism More than 4 time s per year 09/17/2018 services? 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 PCP - General 09/12/[address] [place] [place] [phone] documented as of this encounter
--- OUTSIDE RECORDS SUMMARY | 2022-01-25 11:35 | XMS_ITS | Encounter Summary ---
:1965 Author Organization [facility] Address [address] [place] [address] Care Team Providers Name Role Phone Norma Kenny APRN C.N.P. Primary Care Provider [phone] Reason for Referral Outpatient (Routine) - Authorized Specialty Diagnoses / Procedures Referred By Contact Refer red To Contact Diagnoses Pain Knee Left Hugo Shelton M.D. [facility] Region Procedures qci-usxy-uuljwcos-elbow arthrocentesis: L knee joint [address] [place] [phone] Referral ID Status Reason Start Date Expiration Date Visits V isits Requested Authorized [id number] Authorized 08/06/2021 08/06/2022 1 1 Reason for Visit Reason Comments Pain Meniscus tear Outpatient (Routine) - Closed Specialty Diagnoses / Procedures Referred By Contact Refer red To Contact Orthopedic Surgery Diagnoses Pain Knee Left Norma Kenny [facility] Region STEVEN, C.N.P. [address] [place] [address] Referral ID Status Reason Start Date Expiration Date Visits Requ ested Visits Authorized [id number] Closed 07/17/2021 07/17/2022 1 1 Encounter Details Date Type Department Care Team Description 08/06/2021 Comprehensive Visit Department of Hugo Shelton, Pain Knee Left Orthopedic Surgery in [facility] [address] [address] [address] [place], [place] [phone] Social History Tobacco Use Types Packs/Day Years [...] or relatives? How often do you attend hoahaoism or yarsani More than 4 time s per year 09/17/2018 services? 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 - 08/06/2021 1:00 PM CDTAssociated Order(s): dpy-fifx-hazzbejv-elbow arthrocentesis: L knee joint Post-Procedure Diagnose(s): Pain Knee Left Knee site- L knee joint : injection only Date/Time: 08/06/2021 3:10 PM Performed by: Hugo Shelton M.D. Authorized by: Hugo Shelton M.D. PROCEDURE DETAILS Procedure Location knee Knee site: L knee joint Site prep: patient was prepped and draped in usual sterile fashion Patient position: seated Procedural approach: anterolateral Procedure performed: injection only Procedural Medication The following medications were administered at the target site(s) Local anesthetic: 6 mL bupivacaine 0.5 % (5 mg/mL) Corticosteroid: 40 mg triamcinolone acetonide 40 mg/mL CONSENT Consent obtained: verbal Consent given by: patient PRE-PROCEDURE DETAILS Procedure purpose: therapeutic Appropriate hand hygiene, gown, cap, mask, protective eyewear, sterile gloves, skin preparation, sterile drape, and strict aseptic technique were utilized as applicable for the procedure. Site preparation: chlorhexidine SEDATION / ANESTHESIA Anesthesia method: none POST-PROCEDURE DETAILS Procedure completed successfully: yes Complications: no apparent complications Discharge instructions: ice area as needed for comfort INFORMED CONSENT DISCUSSION We discussed treatment options [...] continue with the planned intervention: Left knee cortisone injection. documented in this encounter Consult Notes Hugo Shelton M.D. - 08/06/2021 1:00 PM CDT REFERRING PROVIDER: Norma Kenny APRN, C.N.P. CHIEF COMPLAINT Chief Complaint Patient presents with ??? Left Knee - Pain Meniscus tear HISTORY OF PRESENT ILLNESS Saad JaradNikhil Trevor is a 55 y.o. Male who presents today for evaluation of left knee pain. The patient states that a few months ago, he was working outside collecting maple syrup and injured his knee.A few days later, he had severe pain and swelling in his knee. It has progressively gotten worse andhe is walking with quite a limp he states. The pain is on the medial aspect of his knee. Prior to this, the patient had a well-functioning knee. Unfortunately, despite conservative management to include icing, ibuprofen, activity modification it is not improving. 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 PAST MEDICAL HISTORY Patient Active Problem List Diagnosis ??? Hypertension Essential Primary ??? Body Mass Index 40.0 To 44.9 Adult (HCC) ??? Hypercholesterolemia ??? Gastroesophageal Reflux Disease ??? Palpitations ??? Pain Shoulder Left ??? Pain Hip Right ??? Acute Lower Respiratory Infection Due To COVID-19 ??? Pain Low Back Chronic The patient's pertinent problems, past surgical history, family history, social history, medications, and allergies were reviewed at the time of this visit. PHYSICAL EXAM BP 132/78 (BP Location: Right arm, Patient Position: Sitting, Cuff Size: Large) Pulse 94 Temp 37 ??C (Temporal) Resp 16 Ht 188 cm Wt (!) 147 kg SpO2 97% BMI 41.61 kg/m?? The patient is well appearing, and in no acute distress. They are alert and oriented. Patient is normocephalic, and has equal chest rise bilaterally. There is a normal inspiratory effort. Examination of the left knee: - Positive effusion/erythema/edema - Tenderness to palpation about med joint line - ROM: 0-100. - Positive patellar crepitus/grind - Negative patella apprehension - Negative minerva / ant drawer / pivot shift - Negative quad activation test / post drawer - Negative varus or valgus laxity to stress at 0 and 30 deg - no pain with rotation of the ipsilateral hip. - 5/5 quad/hamstring/tib ant/gastroc/ehl/fhl. - light touch sensation is intact - Cap refill < 2 sec IMAGE STUDIES @DX Knee Left 4+ Views Result Date: 07/17/2021 Impression: Fusion in the suprapatellar bursa otherwise an unremarkable study. MR Knee Left without IV Contrast Result Date: 07/26/2021 Impression: 1. Tear of the medial meniscus posterior root attachment. 2. Marginal chondral loss withassociated marrow signal abnormality in the medial tibiofemoral compartment. Small focus of high-grade chondral loss in the medial femoral condyle posterior weightbearing zone. 3. Focal full-thickness cartilage loss in the inferior central trochlea. 4. Intact cruciate and collateral ligaments. No lateral meniscus tear. 5. Moderate knee joint effusion. IMPRESSION AND PLAN Saad Murray is a 55 y.o. male with a root tear of his medial meniscus on the left side. He also does have some areas of chondromalacia. He also has an infusion to the knee. His medial femoral condyle has some increased marrow signal consistent with some edema from stress reaction. We discussed treatment options at length. I did discuss a meniscal root repair with the patient as well as the rehabilitation protocols. Unfortunately, the patient states that surgery is really not feasible for him right now given his work situation. He this is something he might consider in the future. For now, I did also mention the possibility of fusing an business development agent brace to help load more of his weight onto the lateral joint space. I do think this will help his pain. He was also interested in a cortisone injection. I did let him know that there is a chance that a cortisone injection might make a meniscal repair in the future less successful. He is really desperate at this time for some pain control would really like to proceed with a cortisone injection despite this. We will get him set up with a cortisone injection and I will place a prescription for an business development agent brace. He will follow up for either repeat evaluations or to schedule surgery. Total time spent providing patient care was 40 minutes. This includes time spent with the patient and time spent on same day pre/post visit EMR documentation, orders, medications, procedures, and communication with other health career manager. documented in this encounter Plan of Treatment Upcoming Encounters Date Type Specialty Care Team Description 02/15/2022 Office Visit Orthopedic Surgery Madyson Rosa D.O. [address] [place], [place] [phone] (Wo rk) documented as of this encounter Procedures Procedure Name Priority Date/Time Associated Diagnosis Comme nts TN ARTHCS ASP/INJ Routine 08/06/2021 3:10 PM Pain Knee Left Re sults for this MJR JT WO US CDT procedure are i n the results section. documented in this encounter Results TN ARTHCS ASP/INJ MJR JT WO US (08/06/2021 3:10 PM CDT) Narrative MMODAL - 08/06/2021 3:10 PM CDT Hugo Shelton M.D. ? 08/06/2021 ??3:10 PM Knee site- L knee joint : injection only Date/Time: 08/06/2021 3:10 PM Performed by: Hugo Shelton M.D. Authorized by: Hugo Shelton M.D. PROCEDURE DETAILS Procedure Location knee Knee site: L knee joint Site prep: patient was prepped and drape d in usual sterile fashion ?? Patient position: seated Procedural approach: anterolateral Procedure performed: injection only Procedural Medication The following medications were administe red at the target site(s) Local anesthetic: 6 mL bupivacaine 0.5 % (5 mg/mL) Corticosteroid: 40 mg triamcinolone acet onide 40 mg/mL CONSENT Consent obtained: verbal Consent given by: patient PRE-PROCEDURE DETAILS Procedure purpose: therapeutic Appropriate hand hygiene, gown, cap, mas k, protective eyewear, sterile gloves, skin preparation, sterile drape, and strict aseptic technique were utilized as applicable for the procedure . Site preparation: chlorhexidine SEDATION / ANESTHESIA Anesthesia method: none POST-PROCEDURE DETAILS Procedure completed successfully: yes Complications: no apparent complications ?? Discharge instructions: ice area as need ed for comfort Hugo Shelton M.D. PROCEDURE/MINOR SURGICAL ORD ERABLES Performing Organization Address City/State/ZIP Code Phon e Number MMODAL MMODAL NA documented in this encounter Visit Diagnoses Diagnosis Pain Knee Left documented in this encounter Administered Medications Inactive Administered Medications - up to 3 most recent administrations Medication Order MAR Action Action Date Dose Rate Site bupivacaine 0.5 % (5 mg/mL) Given 08/06/2021 3:10 PM CDT 6 mL injection 6 mL (MARCAINE) 6 mL, infiltration, One-Time Injection, Starting on Fri08/06/21 at 1510, For 1 dose triamcinolone acetonide injection 40 mg Given 08/06/2021 3:10 PM CDT 40 mg (KENALOG-40) 40 mg, intra-articular, One-Time Injection, Starting on Fri08/06/21 at 1510, For 1 dose documented in this encounter Additional Health Concerns Assessment Noted Time PHQ-9 Depression Total Score: 4 03/02/2021 10:28 AM CS T documented as of this encounter Care Teams Superintendent Warehouse Relationship Specialty Start Date End Date Norma Kenny APRN, C.N.P. PCP - General 09/12/[address] [place] [phone] documented as of this encounter
--- OUTSIDE RECORDS SUMMARY | 2022-01-25 11:35 | XMS_ITS | Encounter Summary ---
:1965 Author Organization [facility] Address [address] [place] [address] Care Team Providers Name Role Phone Norma Kenny APRN, C.N.P. Primary Care Provider [phone] Reason for Referral Outpatient (Routine) - Closed Specialty Diagnoses / Referred By Contact Referred To Contact Procedures Melchor Mccabe [facility] D.ONikhil [address] [place] [phone] Referral ID Status Reason Start Date Expiration Date Visits Requ ested Visits Authorized [id number] Closed 08/17/2021 08/17/2022 1 1 Reason for Visit Reason Comments Follow-up Outpatient (Routine) - Closed Specialty Diagnoses / Referred By Contact Referred To Contact Procedures Melchor Mccabe [facility] D.ONikhil [address] [place] [phone] Referral ID Status Reason Start Date Expiration Date Visits Requ ested Visits Authorized [id number] Closed 07/13/2021 07/13/2022 1 1 Encounter Details Date Type Department Care Team Description 08/17/2021 Office Visit Department of Physical Melchor Westbrook Pain Knee Left (Primary Dx); Medicine and O, D.O. 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 - 08/17/2021 8:00 AM CDT SUBJECTIVE CHIEF COMPLAINT/REASON FOR VISIT Follow up: bilateral low back and left knee pain HISTORY OF PRESENT ILLNESS Mr. Murray returns today for further evaluation of bilateral low back and left knee pain. He reports since his last visit he had his SI joint injection and met with Dr. Shelton who recommended surgery, however timing did not work out for him so they performed a left knee cortisone injection. He does report that his low back is quite a bit better, especially on the left side. He is not having much pain on the left low back into the hip at this time. He does have some pain in the right low back stillbut it is better. He is relatively pleased with how his back is feeling. Unfortunately his knee has not yet responded to the cortisone. He has been having a hard time sleeping at night. He is wondering about other things he can consider doing as he did get a medial chiropractic neurologist brace and this helps with some of the discomfort when he walks, though he still does have significant pain. PRIOR HISTORY: Mr. Murray returns today for further evaluation of bilateral low back and hip pain. He reports since his last visit he did have a significant response to the bilateral trochanteric bursa injections.He reports he is not having any left- sided hip for buttock pain, though on the right he is having pain more in the middle of his buttock radiating to the spine. He is not having any pain over the lateral right hip. He reports that he does feel the facet injections were helpful but his pain now is somewhat lower than where those injections were done. Pain can still bother him a lot when he is doing work and heavy lifting. He has minimal pain in the low back when he sits in without activity. He is conc erned about this ongoing pain and how it will affect his returning to work as it can be pretty significant up to a 7 or 8/10 when he tries to exert himself. ?? 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 He had some pain initially but the following day he developed severe pain and some swelling in the knee. Pain is located over the knee and distal thigh. He reports that he has been using a brace to give him some support and this is somewhat helpful. He did touch base with his primary provider Norma Kenny a few days after his injury, and she had recommended if hispain was not getting better to return, and he does have an appointment next week with her. He does not feel any catching or locking, but does still notice some swelling from time to time and some signif icant pain when ambulating. ?? .??Trevor??is a very pleasant 55 y.o.??male??here for evaluation of bilateral??low back and hip??pain. ??He??points to the low back at the level of the waist??as the main location of pain.?He feels the pain radiates into the posterolateral hips, and never further. ??When he is sitting in his car and driving sometimes he will have numbness circumferentially around the entire leg that goes downto the foot. ??He otherwise does not get radiating pain down the leg or numbness down the leg. ??He??states that this began 6??month(s)??ago.?He started having low back pain, and then had a very diff icult fall and winter when he was diagnosed with COVID, and then another viral illness and eventually pneumonia. ??He was sick essentially from November until February. ??He was in the hospital for few days but was otherwise not well enough to do much beyond rest. 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 ??He??rates his??pain 8/10 at its worst and??2/10 at its best.?He??describes the pain as generally aching, occasionally sharp??and states it is worse with standing, bending at the waist, and standing and static thus. ??The hips are much worse when lying on his side at night. ??Right hip is worse than the left hip. The pain is improved with??nothing that he has tried so far. ??He has tried a Medrol Dosepak without significant benefit. ??He has tried ibuprofen, 400 mg twice a day and this does help a little bit. ??He has otherwise tried nothingelse for his pain as of yet. ??He denies any balance deficits or any bowel or bladder changes. The following portions of the patient's history were reviewed and updated as appropriate: allergies,current medication, family history, medical history, social history, surgical history. REVIEW OF SYSTEMS Except for those mentioned in the history of present illness, and below, a complete review of systems is negative. All other systems reviewed and are negative. OBJECTIVE PHYSICAL EXAMINATION General: Awake, alert, and oriented, no apparent distress, pleasant, and cooperative Psych: Mood is euthymic, affect is congruent Ear, Nose, Throat: Normocephalic, atraumatic, moist membranes, anicteric sclerae Lung: Nonlabored breathing Heart: No clubbing or cyanosis Skin: No increased erythema, warmth, rashes, or concerning skin lesions MSK: Medial joint line tenderness of the left knee Gait: Antalgic gait favoring the left leg with use of an chiropractic neurologist brace on the left knee. IMAGING: MRI of the left knee, reveals root tear of the medial meniscus. There is marginal chondral loss withmarrow signal abnormality consistent with contusion. There is inferior central trochlear chondral loss. X-Ray of the??hip, dated 04/30/2018, reveals no significant degenerative change of the bilateral hip, or SI joints. ??There is calcifications at the insertion of the gluteal tendon at the greater trochanter on the left. ?? MRI of the lumbar spine, dated 05/04/2021,?revealed degenerative change of the lumbar facets mostadvanced at L4-5 and L5-S1. ??There is degenerative disc disease, with mild foraminal narrowing at L4-5 but otherwise no significant central or foraminal stenosis noted.??I personally reviewed these images and agree with the radiology report and shared the findings with the patient. ASSESSMENT / PLAN Diagnosis Plan 1. Pain Knee Left PT Evaluate and treat 2. Tear Knee Meniscus Current Subsequent Left PT Evaluate and treat We discussed his history, physical exam findings, as well as his response to treatment. I am very pleased that his back is doing quite a bit better. It is unfortunate the left knee injection was not helpful for his meniscal tear, though it is quite possible that this could still kick in as he is less than 2 weeks from the date of his injection. I did try to offer some reassurance. I also refilled hismedial chiropractic neurologist brace which was not properly positioned, and demonstrated how to do this. I did alsodiscuss with him the benefits of potentially proceeding with physical therapy to work on strengthening his leg and offloading the medial compartment of the knee. I switched him from naproxen to meloxicam, and recommend in addition to meloxicam he trial Tylenol, 1000 mg 3 times a day for pain. He can also alternate meloxicam days with Voltaren gel or switch between the 2 whichever he finds more beneficial. I did discuss with him the benefits of a meniscal root repair for the long-term health of his knee, and he is reconsidering this option as he has not had noticeable benefit from the cortisone injection. If the changes above are not significantly beneficial he may be contacting Dr. Shelton to reconsider root repair though I did tell him that cortisone injection may affect timing of the potential surgical repair. Patient was in agreement with the plan as outlined above. All of his questions were answered to the best of my ability. documented in this encounter Plan of Treatment Upcoming Encounters Date Type Specialty Care Team Description 02/15/2022 Office Visit Orthopedic Surgery Madyson Rosa D.O. [address] [place], [place] [address] (Wo rk) Scheduled Referrals Name Type Priority Associated Order Schedule Diagnoses Physical Medicine and Outpatient Referral Routine Expected: Rehabilitation office 2021 visit (clinic) (Approximate) , Expires: 11/17/2022 documented as of this encounter Visit Diagnoses Diagnosis Pain Knee Left - Primary Tear Knee Meniscus Current Subsequent Le ft Pain Sacroiliac Gluteal Tendinitis Left Hip Gluteal Tendinitis Right Hip documented in this encounter Additional Health Concerns Assessment Noted Time PHQ-9 Depression Total Score: 4 03/02/2021 10:28 AM CS T documented as of this encounter Care Teams Supply Chain Director Relationship Specialty Start Date End Date Norma Kenny, STEVEN, C.N.P. PCP - General 09/12/[address] [place] [address] documented as of this encounter
--- OUTSIDE RECORDS SUMMARY | 2022-01-25 11:35 | XMS_ITS | Encounter Summary ---
:1965 Author Organization [facility] Address [address] [place] [address] Care Team Providers Name Role Phone Norma Kenny APRN, C.N.P. Primary Care Provider [phone] Reason for Referral Outpatient (Routine) - Closed Specialty Diagnoses / Procedures Referred By Contact Refer red To Contact Diagnoses Pain Knee Left Hugo Shelton M.D. [facility] Region Procedures DX Knee Left 4+ Views [address] [place] [phone] Referral ID Status Reason Start Date Expiration Date Visits Requ ested Visits Authorized [id number] Closed 10/22/2021 10/22/2022 1 1 Reason for Visit Outpatient (Routine) - Closed Specialty Diagnoses / Procedures Referred By Contact Refer red To Contact Diagnoses Pain Knee Left Hugo Shelton M.D. [facility] Region Procedures DX Knee Left 4+ Views [address] [place] [phone] Referral ID Status Reason Start Date Expiration Date Visits Requ ested Visits Authorized [id number] Closed 10/22/2021 10/22/2022 1 1 Encounter Details Date Type Department Care Team Description 10/22/2021 Hospital Encounter Department of Hugo Shelton Pain K nee Left Radiology, [facility], in [place] [id number] [place], [place] [address] [place] [address] [place], [place] [phone] (Work) [phone] Social History Tobacco Use Types Packs/Day Years [...] or relatives? How often do you attend yarsani or zoroastrian More than 4 time s per year 09/17/2018 services? 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 lisinopriL Take 1 tablet (20 mg 90 [...] bowel movement in the past 36 hrs.). acetaminophen (TYLENOL) Take 500 mg by mouth 0 10/29/2021 500 mg tablet every 6 (six) hours as needed for pain. atorvastatin (LIPITOR) Take 1 tablet (20 mg 90 tablet 3 10/202110/26/2021 20 mg total) by mouth at tabletIndications: bedtime. NEEDS LABS Hyperlipidemia BEFORE NEXT REFILL meloxicam (MOBIC) 15 mg Take 1 tablet (15 mg 30 tablet 1 10/26/2021 tablet total) by mouth daily. meloxicam (MOBIC) 15 mg Take 1 tablet (15 mg 30 tablet 1 10/26/2021 tablet total) by mouth daily. pantoprazole (PROTONIX) Take 1 tablet (20 mg 60 tablet 1 10/26/2021 20 mg EC tablet total) by mouth 2 (two) times a day. sertraline (ZOLOFT) 100 TAKE 1 AND 1/2 135 tablet 0 07/25/19 22 10/23/2021 mg tabletIndications: TABLETS(150 MG) BY Anxiety MOUTH DAILY sertraline (ZOLOFT) 100 TAKE 1 AND 1/2 135 tablet 0 10/24/19 22 01/22/2022 mg tabletIndications: TABLETS(150 MG) BY Anxiety MOUTH DAILY documented as of this encounter Plan of Treatment Upcoming Encounters Date Type Specialty Care Team Description 02/15/2022 Office Visit Orthopedic Surgery Madyson Rosa saumya, D.O. [address] [place], [place] [phone] (Wo rk) documented as of this encounter Procedures Procedure Name Priority Date/Time Associated Comments Diagnosis DX KNEE LEFT 4+ RAD - Routine 10/22/2021 10:14 Pain Knee Left Resul ts for this VIEWS (most inpatients AM CDT procedure a re in and all the results outpatients) section. documented in this [...] documented as of this encounter Care Teams Supervisory Clerk Relationship Specialty Start Date End Date Norma Kenny, STEVEN, C.N.P. PCP - General 09/12/[address] [place] [phone] documented as of this encounter
--- OUTSIDE RECORDS SUMMARY | 2022-01-25 11:35 | XMS_ITS | Encounter Summary ---
:1965 Author Organization [facility] Address [address] [place] [address] Care Team Providers Name Role Phone Norma Kenny APRN, C.NNikhilPNikhil Primary Care Provider [phone] Reason for Referral MRI/CAT/PET Scan (Routine) - Closed Specialty Diagnoses / Procedures Referred By Contact Refer red To Contact Radiology Diagnoses Pain Knee Left Effusion Knee Left [facility] Procedures MR Knee Left without IV Contrast WI MRI LWR EXT JOINT WO CNTRST [address] [place] [address] Referral ID Status Reason Start Date Expiration Date Visits Requ ested Visits Authorized [id number] Closed 07/13/2021 07/13/2022 1 1 Outpatient (Routine) - Closed Specialty Diagnoses / Referred By Contact Referred To Contact Procedures Physical Medicine and Melchor Westbrook [facility] D.O. [address] [place] [address] Referral ID Status Reason Start Date Expiration Date Visits Requ ested Visits Authorized [id number] Closed 07/13/2021 07/13/2022 1 1 Scheduling Instructions 1 month after SI injection Outpatient (Routine) - Closed Specialty Diagnoses / Procedures Referred By Contact Refer red To Contact Diagnoses Pain Low Back Chronic Melchor Westbrook [facility]. [facility] Region Procedures FL Sacroiliac Joint Injection Bilateral WI INJ SI JT W THANG W ARTHROGRPHY [address] [place] [address] Referral ID Status Reason Start Date Expiration Date Visits Requ ested Visits Authorized [id number] Closed 07/13/2021 07/13/2022 1 1 Outpatient (Routine) - Closed Specialty Diagnoses / Procedures Referred By Contact Refer red To Contact Diagnoses Pain Knee Left Effusion Knee Left Melchor [facility]brook [facility] Region Procedures DX Knee Left 4+ Views [address] [place] [address] Referral ID Status Reason Start Date Expiration Date Visits Requ ested Visits Authorized [id number] Closed 07/13/2021 07/13/2022 1 1 Reason for Visit Reason Comments Follow-up Continues to have right hip pain Outpatient (Routine) - Closed Specialty Diagnoses / Referred By Contact Referred To Contact Procedures Physical Medicine and Melchor Westbrook [facility] D.O. [address] [place] [phone] Referral ID Status Reason Start Date Expiration Date Visits Requ ested Visits Authorized [id number] Closed 05/09/2021 05/09/2022 1 1 Encounter Details Date Type Department Care Team Description 07/13/2021 Office Visit Department of Physical Melchor Westbrook Pain Sacroiliac (Primary Dx); Medicine and OJoanna Pain Low Back Chronic; Rehabilitation in [place] [id number] [facility] Pain Knee Left; [place], [place] Effusion Knee Left; [address] [place] [address] Gluteal Tendinitis Left Hip; [place] [address] Gluteal Tendinitis Right Hip Social History Tobacco Use Types Packs/Day Years [...] or relatives? How often do you attend yarsanism or scientologist More than 4 time s per year 09/17/2018 services? 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 - 07/13/2021 11:00 AM CDT SUBJECTIVE CHIEF COMPLAINT/REASON FOR VISIT Follow up: bilateral low back and hip pain HISTORY OF PRESENT ILLNESS Mr. Murray [...] 8/10 when he tries to exert himself. He also reports that around 3 weeks [...] and some signif icant pain when ambulating. PRIOR HISTORY: Mr. Murray is a very pleasant 55 y.o. male here for evaluation of bilateral low back and hip pain. He points to the low back at the level of the waist as the main location of pain. He feels the painradiates into the posterolateral hips, and never further. When he is sitting in his car and driving sometimes he will have numbness circumferentially around the entire leg that goes down to the foot. He otherwise does not get radiating pain down the leg or numbness down the leg. He states that this began 6 month(s) ago. He started having low back pain, and then had a very difficult fall and winter when he was diagnosed with COVID, and then another viral illness and eventually pneumonia. He was sick essentially from November until February. He was in the hospital for few days but was otherwise not well enough to do much beyond rest. 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 He rates his pain 8/10 at its worst and 2/10 at its best. He describes the pain as generally aching, occasionally sharp and states it is worse with standing, bending at the waist, and standing and static thus. The hips are much worse when lying on his side at night. Right hip isworse than the left hip. The pain is improved with nothing that he has tried so far. He has tried a Medrol Dosepak without significant benefit. He has tried ibuprofen, 400 mg twice a day and this does h elp a little bit. He has otherwise tried nothing else for his pain as of yet. He denies any balance deficits or any bowel [...] warmth, rashes, or concerning skin lesions MSK: Tenderness over the right greater than left PSIS. No tenderness over the lumbar paraspinals or spinous processes. No tenderness in the gluteal musculature over the greater trochanter bilaterally. There was tenderness over the medial and lateral joint lines of the right knee. No patellar facet tend erness. No tenderness over the patellar or quadriceps tendons. Active straight leg raise does reproduce pain in the low back. ENOC and FADIR do not reproduce low back pain or any hip or groin pain. There is small effusion in the right knee. Valgus stress does produce lateral knee pain. There is subtle laxity with anterior drawer compared to the right.. Neuro: Seated slump test and straight leg raise are negative. IMAGING: X-Ray of the hip, dated 04/30/2018, reveals no significant degenerative change of the bilateral hip,or SI joints. There is calcifications at the insertion of the gluteal tendon at the greater trochanter on the left. ?? MRI of the lumbar spine, dated 05/04/2021, revealed degenerative change of the lumbar facets most advanced at L4-5 and L5-S1. There is degenerative disc disease, with mild foraminal narrowing at L4-5 but otherwise no significant central or foraminal stenosis noted. I personally reviewed these images and agree with the radiology report and shared the findings with the patient. ASSESSMENT / PLAN Diagnosis Plan 1. Pain Sacroiliac 2. Pain Low Back Chronic FL Sacroiliac Joint Injection Bilateral 3. Pain Knee Left DX Knee Left 4+ Views MR Knee Left without IV Contrast 4. Effusion Knee Left DX Knee Left 4+ Views MR Knee Left without IV Contrast 5. Gluteal Tendinitis Left Hip 6. Gluteal Tendinitis Right Hip We discussed his history, physical exam findings, as well as his response to treatment thus far. I am glad that the facet injections have helped the pain somewhat higher up in his low back, but now hispain is lower and reproducible about the SI joint on the right. He also responded very well to his greater trochanteric bursa injections and has no pain over those areas now. We discussed potential management options including physical therapy which I would strongly recommend though he is not interested in that at this time. We did discuss SI joint corticosteroid injection which he would like to proceed with and I will have scheduled. Regarding the left knee, as he has had fusion and ongoing pain now 3 weeks from the day of his initial injury like to obtain imaging at this time and will start with x-rays. If x-rays are indicative of any intra-articular process I would like him to proceed with an MRI which I have ordered as he does have some reproducible intra-articular findings. I would be concerned about potential meniscus or ACL. I will contact him with the results of the x-ray once I have hada chance to review it. I would plan to see her back in person around 1 month after his SI injection. Patient was in agreement with the plan as outlined above. All of his questions were answered to bestof my ability. documented in this encounter Plan of Treatment Upcoming Encounters Date Type Specialty Care Team Description 02/15/2022 Office Visit Orthopedic Surgery Madyson Rosa D.O. [address] [place] [phone] (Wo rk) Scheduled Referrals Name Type Priority Associated Order Schedule Diagnoses Physical Medicine and Outpatient Referral Routine Expected: Rehabilitation office 2021 visit (clinic) (Approximate) , Expires: 10/12/2022 documented as of this encounter Results FL SACROILIAC JOINT INJECTION BILATERAL (07/30/2021 1:39 PM CDT) Specimen (Source) Anatomical Location Collection Method / Collectio n Time Received Time / Laterality Volume Narrative 9000 DIANN HANDYMN - 07/30/2021 1:55 PM CDT Karina Griffin D.O. ? 07/30/2021 ??1:56 PM FL Sacroiliac Joint Injection Bilateral Date/Time: 07/30/2021 1:55 PM Performed by: Karina Griffin D.O. Authorized by: Melchor Westbrook D.O. PROCEDURE SUMMARY Indications: Sacroiliac Joint Pain Pre-procedural pain: 7/10 Post-procedural pain: 6/10 Site: sacral Sacral: sacroiliac joint Sacroiliac joint: bilateral Needle or RF cannula: Spinal Needle size: 22 G Needle length: 3.5 in Flow: intraarticular Patient position: prone IMAGING Fluoroscopic image guidance used to loca lize target, identify at risk structures, and dynamically used to dire ct therapy to the target. Image(s) acquired and saved. INJECTED MEDICATIONS The injected medication(s) listed was di vided equally between the identified injection location(s) 2 mL lidocaine 20 mg/mL 10 mg dexAMETHasone 10 mg/mL 1 mL iohexoL 300 mg iodine/mL PROCEDURE DETAILS ?? Sacroiliac joint - sacral: Using fluoros copy, the inferior portion of the sacroiliac joint(s) was identified and m arked on the skin. Using fluoroscopic guidance, a spinal needle w as advanced into the joint. Proper needle positioning was confirmed using m ultiple fluoroscopic views. After negative aspiration, contrast was inject ed, showing intraarticular spread of contrast without any evidence of intr avascular uptake. A injectate was injected slowly and incrementally into t he aforementioned joint(s). Following each injection, the needle was withdrawn slightly and flushed with lidocaine as it was withdrawn from the skin. ??The patient tolerated the procedure well and there were no timbo arent complications. After appropriate observation, the patient was dismissed in good condition under their own power. ?? CONSENT Consent obtained: written UNIVERSAL PROTOCOL All relevant documentation and testing w ere reviewed and available. All required blood products, implants, devic es and or special equipment were made available as applicable. Pre-proced ure verification was conducted and the correct site was marked if required. A fire risk assessment was done as applicable. The procedural time-out w as conducted prior to performing the procedure and confirmed in a procedu ral pause. PRE-PROCEDURE DETAILS Procedure purpose: therapeutic Appropriate hand hygiene, gown, cap, mas k, protective eyewear, sterile gloves, skin preparation, sterile drape, and strict aseptic technique were utilized as applicable for the procedure : yes ?? Site preparation: chlorhexidine SEDATION / ANESTHESIA Anesthesia method: local infiltration Local infiltrate type: lidocaine Melchor CM FLUOROSCOPY PROCEDURES Performing Organization Address City/State/ZIP Code Phon e Number [id number] [place] MR Knee Left without IV Contrast (07/26/2021 [...] tear. 5. Moderate knee joint effusion. Melchor Westbrook D.O. IMG MRI PROCEDURES DX Knee Left 4+ Views (07/17/2021 10:37 [...] bursa otherw ise an unremarkable study. Melchor Westbrook D.O. IMG DIAGNOSTIC IMAGING PROCE DURES documented in this encounter Visit Diagnoses Diagnosis Pain Sacroiliac - Primary Pain Low Back Chronic Pain Knee Left Effusion Knee Left Gluteal Tendinitis Left Hip Gluteal Tendinitis Right Hip Pain Knee Left Effusion Knee Left Pain Knee Left Effusion Knee Left Pain Low Back Chronic documented in this encounter Additional Health Concerns Assessment Noted Time PHQ-9 Depression Total Score: 4 03/02/2021 10:28 AM CHI T documented as of this encounter Care Teams Research Associate Policy Relationship Specialty Start Date End Date Norma Kenny APRN, C.N.P. PCP - General 09/12/[address] [place] [address] documented as of this encounter
--- OUTSIDE RECORDS SUMMARY | 2022-01-25 11:35 | XMS_ITS | Encounter Summary ---
:1965 Author Organization [facility] Address [address] [place] [address] Care Team Providers Name Role Phone Norma Kenny APRN, C.N.P. Primary Care Provider [phone] Reason for Visit Reason Comments Med Refill Encounter Details Date Type Department Care Team Description 10/05/2021 Refill Department of Family Medicine Davon Eng M.D. Med Refill in [facility] so [address] [place] [address] [place] [address] [phone] Social History Tobacco Use Types Packs/Day Years [...] or relatives? How often do you attend confucianism or church More than 4 time s per year 09/17/2018 services? 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 [facility] 06/29/21 Office Visit Norma Kenny APRN C.N.PNikhil [facility] 05/01/21 Office Visit Norma Kenny APRN C.N.PNikhil [facility] 04/03/21 Office Visit Norma Kenny APRN, C.N.PNikhil [facility] 03/02/21 Office Visit Norma Kenny APRN, C.N.PNikhil [facility] 01/25/21 Office Visit Efe Boyle D.O. [facility] Showing recent visits within past 365 days with a meds authorizing provider and meeting all other requirements Future Appointments No visits were found meeting these conditions. Showing future appointments within next 90 days with a meds authorizing provider and meeting all other requirements documented in this encounter Plan of Treatment Upcoming Encounters Date Type Specialty Care Team Description 02/15/2022 Office Visit Orthopedic Surgery Madyson Rosa D.O. [address] [place], [place] [phone] (Wo rk) documented as of this encounter Visit Diagnoses Diagnosis Palpitations documented in this encounter Additional Health Concerns Assessment Noted Time PHQ-9 Depression Total Score: 4 03/02/2021 10:28 AM CS T documented as of this encounter Care Teams Certified Ski Patroller Relationship Specialty Start Date End Date Noram Kenny APRN, C.N.P. PCP - General 09/12/[address] [place] [address] documented as of this encounter
--- OUTSIDE RECORDS SUMMARY | 2022-01-25 11:35 | XMS_ITS | Encounter Summary ---
:1965 Author Organization [facility] Address [address] [place] [address] Care Team Providers Name Role Phone Norma Kenny APRN C.N.P. Primary Care Provider [phone] Reason for Referral Outpatient (Routine) - Closed Specialty Diagnoses / Procedures Referred By Contact Refer red To Contact Orthopedic Surgery Diagnoses Pain Knee Left Norma Kenny [facility] STEVEN, C.N.P. [address] [place] [address] Referral ID Status Reason Start Date Expiration Date Visits Requ ested Visits Authorized [id number] Closed 07/17/2021 07/17/2022 1 1 Scheduling Instructions Ortho internal referral panel order, dedrick ging before Consult visit Reason for Visit Reason Comments Knee Pain No change from previous visi t Encounter Details Date Type Department Care Team Description 07/17/2021 Office Visit Department of Family Norma Kenny Pa in Knee Left Medicine in [facility] STEVEN, C.N.P. (Primary Dx) [place], [place] [address] [place] [phone] Social History Tobacco Use Types Packs/Day Years [...] or relatives? How often do you attend hindu or restorationism More than 4 time s per year 09/17/2018 services? 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 - 07/17/2021 9:00 AM CDT SUBJECTIVE CHIEF COMPLAINT/REASON FOR VISIT Knee Pain (No change from previous visit) HISTORY OF PRESENT ILLNESS Saad Murray is a 55 y.o. male who presents for concerns of left knee pain for the past month. He states he was [place] in the [place] and twisted his knee, has had pain since then. He has been wearing a pull on brace when he is up and around. 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 He saw Dr. Westbrook recently for his back pain who ordered a knee Xray to complete today after this appointment. He is otherwise feeling well. PROBLEM LIST: Patient Active Problem List Diagnosis ??? Hypertension Essential Primary ??? Body Mass Index 40.0 To 44.9 Adult (HCC) ??? Hypercholesterolemia ??? Gastroesophageal Reflux Disease ??? Palpitations ??? Pain Shoulder Left ??? Pain Hip Right ??? Acute Lower Respiratory Infection Due To COVID-19 ??? Pain Low Back Chronic No Known Allergies OBJECTIVE VITAL SIGNS BP 137/89 Pulse 92 Temp 36.5 ??C Resp 20 Wt (!) 147 kg SpO2 95% BMI 41.72 kg/m?? PHYSICAL EXAMINATION General: Patient is alert, oriented and appears to be in no distress. Musculoskeletal: Slight patellar effusion, left knee. Tenderness to palpation posteriorly and lateral aspect. Pain with varus testing, none with valgus. No bruising or deformity noted. No peripheral edema. Skin: No rashes or lesion noted. Neurologic: No neurologic deficit noted. ASSESSMENT / PLAN #1 Pain Knee Left - Orthopedic Surgery - Knee non surgical consult (clinic); Future; Expected date: 07/17/2021 (After tests) He will have his X-rays later today. He may likely need an MRI of his knee, but we will have him consult ortho first to determine next steps. He will continue conservative therapy until that time. All questions answered. Norma Kenny APRN, C.N.P. documented in this encounter Plan of Treatment Upcoming Encounters Date Type Specialty Care Team Description 02/15/2022 Office Visit Orthopedic Surgery Madyson Rosa, D.ONikhil [address] [place] [phone] (Wo rk) Scheduled Referrals Name Type Priority Associated Order Schedule Diagnoses Orthopedic Surgery - Outpatient Referral Routine Pain Knee Lef t Expected: Knee non surgical 07/17/2021 consult (clinic) (Jacquelyn uribe), Expires: 10/16/2022 documented as of this encounter Visit Diagnoses Diagnosis Pain Knee Left - Primary documented in this encounter Additional Health Concerns Assessment Noted Time PHQ-9 Depression Total Score: 4 03/02/2021 10:28 AM CS T documented as of this encounter Care Teams Manager Transportation Relationship Specialty Start Date End Date Norma Kenny, HOT DIP GALVANIZER, C.N.P. PCP - General 09/12/[address] [place] [address] documented as of this encounter
--- OUTSIDE RECORDS SUMMARY | 2022-01-25 11:35 | XMS_ITS | Encounter Summary ---
:1965 Author Organization [facility] Address [address] [place] [address] Care Team Providers Name Role Phone Norma Kenny APRN, C.N.P. Primary Care Provider [phone] Reason for Visit Reason Comments Med Refill Encounter Details Date Type Department Care Team Description 09/30/2021 Refill [facility], Hernan Canchola M.D. 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 lisinopriL (PRINIVIL,ZESTRIL) 20 mg tablet 90 tablet 3 Sig: Take 1 tablet (20 mg total) by mouth daily. ??? atorvastatin (LIPITOR) 20 mg tablet 90 tablet 3 Sig: Take 1 tablet (20 mg total) by mouth at bedtime. NEEDS LABS BEFORE NEXT REFILL Refused Prescriptions Disp Refills ??? lisinopriL (PRINIVIL,ZESTRIL) 20 mg tablet [Pharmacy Med Name: LISINOPRIL 20MG TABLETS] 30 tablet 0 Sig: TAKE 1 TABLET(20 MG) BY MOUTH DAILY Refused By: HERNAN DAMON Reason for Refusal: Patient no longer under prescriber care Last refilled: 08/23/21, 07/28/21 Additional information: Last BMP Lab Results Component Value Date NA 138 06/29/2021 KSERUM 4.5 09/10/2018 KPLASMA 4.8 06/29/2021 CL 100 06/29/2021 BICARB 27 06/29/2021 CREATININE 0.77 06/29/2021 EGFRNONBLKAA >90 06/29/2021 EGFRBLKAA >90 06/29/2021 BUN 23 06/29/2021 ANIONGAP 11 06/29/2021 GLUCOSE 107 06/29/2021 CALCIUM 10.0 06/29/2021 , Last Lipid Lab Results Component Value Date CHOL 172 05/01/2021 Lab Results Component Value Date HDL 50 05/01/2021 Lab Results Component Value Date LDLCALC 95 05/01/2021 Lab Results Component Value Date TRIG 133 05/01/2021 Lab Results Component Value Date TTLCHOLHDLRT 4.7 (H) 05/28/2012 , Last Kidney Lab Results Component Value Date CREATININE 0.77 06/29/2021 BUN 23 06/29/2021 NA 138 06/29/2021 KSERUM 4.5 09/10/2018 KPLASMA 4.8 06/29/2021 CL 100 06/29/2021 CO2 28 11/12/2016 , Last CBC Lab Results Component Value Date WBC 9.0 05/01/2021 HGB 13.9 05/01/2021 HCT 41.2 05/01/2021 MCV 99.3 (H) 05/01/2021 PLT 379 (H) 05/01/2021 and Last Blood Pressure Last Blood Pressure BP Readings from Last 3 Encounters: 08/06/21 132/78 07/17/21 137/89 06/29/21 133/81 Correct Pharmacy Selected in Epic: Yes Last/Next Appt: Last Appointment: 07/17/21 Future none Telephone Encounter - Hernan Damon M.D. - 10/01/2021 7:47 PM CDT Please sand this refill request to PCP, I have not seen this patient since 2020. Thanks. documented in this encounter Plan of Treatment Upcoming Encounters Date Type Specialty Care Team Description 02/15/2022 [facility] [place] D.ONikhil [address] [place], [place] [phone] (Wo rk) documented as of this encounter Visit Diagnoses Diagnosis Hyperlipidemia documented in this encounter Additional Health Concerns Assessment Noted Time PHQ-9 Depression Total Score: 4 03/02/2021 10:28 AM CS T documented as of this encounter Care Teams Movement Assembler Relationship Specialty Start Date End Date Norma Kenny APRN, C.N.P. PCP - General 09/12/[address] [place] [phone] documented as of this encounter
--- OUTSIDE RECORDS SUMMARY | 2022-01-25 11:35 | XMS_ITS | Encounter Summary ---
:1965 Author Organization [facility] Address [address] [place] [address] Care Team Providers Name Role Phone Norma Kenny APRN, C.N.P. Primary Care Provider [phone] Reason for Visit Reason Comments Med Refill Encounter Details Date Type Department Care Team Description 06/17/2021 Refill [facility], Rio Canchola M.D. 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 PCP - General 09/12/[address] [place] [facility] [place] [phone] documented as of this encounter
--- OUTSIDE RECORDS SUMMARY | 2022-01-25 11:35 | XMS_ITS | Encounter Summary ---
:1965 Author Organization [facility] Address [address] [place] [address] Care Team Providers Name Role Phone Norma Kenny APRN, C.N.P. Primary Care Provider [phone] Reason for Visit Reason Comments Med Refill Encounter Details Date Type Department Care Team Description 06/16/2021 Refill Department of Family Medicine Reuben Rodrigues APRN, Med Refill in [facility] cristina C.N.P., D.N.P. 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 PCP - General 09/12/[address] [place] [address] documented as of this encounter
--- OUTSIDE RECORDS SUMMARY | 2022-01-25 11:35 | XMS_ITS | Encounter Summary ---
:1965 Author Organization [facility] Address [address] [place] [address] Care Team Providers Name Role Phone Norma Kenny APRN, C.N.P. Primary Care Provider [phone] Reason for Referral Outpatient (Routine) - Closed Specialty Diagnoses / Procedures Referred By Contact Refer red To Contact Diagnoses Pain Low Back Chronic Melchor Westbrook D.O. [facility] Region Procedures [place] Sacroiliac Joint Injection Bilateral TN INJ SI JT W THANG W ARTHROGRPHY [address] [place] [phone] Referral ID Status Reason Start Date Expiration Date Visits Requ ested Visits Authorized [id number] Closed 07/13/2021 07/13/2022 1 1 Reason for Visit Outpatient (Routine) - Closed Specialty Diagnoses / Procedures Referred By Contact Refer red To Contact Diagnoses Pain Low Back Chronic Melchor Westbrook D.O. [facility] Region Procedures FL Sacroiliac Joint Injection Bilateral TN INJ SI JT W THANG W ARTHROGRPHY [address] [place] [phone] Referral ID Status Reason Start Date Expiration Date Visits Requ ested Visits Authorized [id number] Closed 07/13/2021 07/13/2022 1 1 Encounter Details Date Type Department Care Team Description 07/30/2021 Hospital Encounter Department of Melchor Westbrook D.O. [address] [place] [phone] Pain Low Back Radiology, [place] Karina Griffin D.O. [address] [place] [phone] [facility], in [place], [place] [address] [place] [phone] Social History Tobacco Use Types Packs/Day Years [...] or relatives? How often do you attend alevism or lutheran More than 4 time s per year 09/17/2018 services? 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 - 07/30/2021 1:30 PM CDTAssociated Order(s): FL Sacroiliac Joint Injection Bilateral Pre-Procedure Diagnose(s): Pain Low Back Chronic Post-Procedure Diagnose(s): Pain Low Back Chronic FL Sacroiliac Joint Injection Bilateral Date/Time: 07/30/2021 1:55 PM Performed by: Karina Griffin D.O. Authorized by: Melchor Westbrook D.O. PROCEDURE SUMMARY Indications: Sacroiliac Joint Pain Pre-procedural pain: 7/10 Post-procedural pain: 6/10 Site: sacral Sacral: sacroiliac joint Sacroiliac joint: bilateral Needle or RF cannula: Spinal Needle size: 22 G Needle length: 3.5 in Flow: intraarticular Patient position: prone IMAGING Fluoroscopic image guidance used to localize target, identify at risk structures, and dynamically used to direct therapy to the target. Image(s) acquired and saved. INJECTED MEDICATIONS The injected medication(s) listed was divided equally between the identified injection location(s) 2 mL lidocaine 20 mg/mL 10 mg dexAMETHasone 10 mg/mL 1 mL iohexoL 300 mg iodine/mL PROCEDURE DETAILS Sacroiliac joint - sacral: Using fluoroscopy, the inferior portion of the sacroiliac joint(s) was identified and marked on the skin. Using fluoroscopic guidance, a spinal needle was advanced into the joint. Proper needle positioning was confirmed using multiple fluoroscopic views. After negative aspiration, contrast was injected, showing intraarticular spread of contrast without any evidence of intravascular uptake. A injectate was injected slowly and incrementally into the aforementioned joint(s). Following each injection, the needle was withdrawn slightly and flushed with lidocaine as it was withdrawn from the skin. The patient tolerated the procedure well and there were no apparent complications. After appropriate observation, the patient was dismissed in good condition under their own power. CONSENT Consent obtained: written UNIVERSAL PROTOCOL All relevant documentation and testing were reviewed and available. All required blood products, implants, devices and or special equipment were made available as applicable. Pre-procedure verificationwas conducted and the correct site was marked if required. A fire risk assessment was done as applicable. The procedural time-out was conducted prior to performing the procedure and confirmed in a procedural pause. PRE-PROCEDURE DETAILS Procedure purpose: therapeutic Appropriate hand hygiene, gown, cap, mask, protective eyewear, sterile gloves, skin preparation, sterile drape, and strict aseptic technique were utilized as applicable for the procedure: yes Site preparation: chlorhexidine SEDATION / ANESTHESIA Anesthesia method: local infiltration Local infiltrate type: lidocaine documented in this encounter Plan of Treatment Upcoming Encounters Date Type Specialty Care Team Description 02/15/2022 Office Visit Orthopedic Surgery Madyson Rosa, DaydayONikhil [address] [place] [phone] (Wo rk) documented as of this encounter Procedures Procedure Name Priority Date/Time Associated Comments Diagnosis FL SACROILIAC RAD - Routine 07/30/2021 1:39 Pain Low Back Results f or this JOINT INJECTION (most inpatients PM CDT Chronic procedur e are in BILATERAL and all the results outpatients) section. documented in this encounter Results FL SACROILIAC JOINT INJECTION BILATERAL (07/30/2021 1:39 PM CDT) Specimen (Source) Anatomical Location Collection Method / Collectio n Time Received Time / Laterality Volume Narrative 9000 DIANN GRIMES - 07/30/2021 1:55 PM CDT Karina Griffin D.O. ? 07/30/2021 ??1:56 PM FL Sacroiliac Joint Injection Bilateral Date/Time: 07/30/2021 1:55 PM Performed by: Karina Griffin D.O. Authorized by: Melchor Westbrook D.O. PROCEDURE SUMMARY Indications: Sacroiliac Joint Pain Pre-procedural pain: 10 Post-procedural pain: 09/07 Site: sacral Sacral: sacroiliac joint Sacroiliac joint: [...] Code Phon e Number 9000 LOS SWMN documented in this encounter Visit Diagnoses Diagnosis Pain Low Back Chronic documented in this encounter Administered Medications Inactive Administered Medications - up to 3 most recent administrations Medication Order MAR Action Action Date Dose Rate Site dexAMETHasone injection 10 mg Given 07/30/2021 1:55 PM CDT 10 mg (DECADRON) 10 mg, injection, One-Time Injection, Starting on Fri07/30/21 at 1355, For 1 dose iohexoL 300 mg iodine/mL solution 1 mL Given 07/30/2021 1:55 PM CDT 1 mL (OMNIPAQUE) 1 mL, injection, One-Time Injection, Starting on Fri07/30/21 at 1355, For 1 dose lidocaine 20 mg/mL injection 2 mL (XYLOC DARA) Given 07/30/2021 1:55 PM CDT 2 mL 2 mL, injection, One-Time Injection, Starting on Fri07/30/21 at 1355, For 1 dose documented in this encounter Additional Health Concerns Assessment Noted Time PHQ-9 Depression Total Score: 4 03/02/2021 10:28 AM CS T documented as of this encounter Care Teams Security Systems Technician Relationship Specialty Start Date End Date Norma Kenny APRN, C.N.P. PCP - General 09/12/[address] [place] [phone] documented as of this encounter
--- OUTSIDE RECORDS SUMMARY | 2022-01-25 11:35 | XMS_ITS | Encounter Summary ---
:1965 Author Organization [facility] Address [address] [place] [address] Care Team Providers Name Role Phone Norma Kenny APRN C.N.PNikhil Primary Care Provider [phone] Encounter Details Date Type Department Care Team Description 07/30/2021 Clinical Communication Department of Chase Philippe, Medicine in 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 Weinberg today. He says he has to go back to [place] for another injection, and wants to wait a couple weeks before returning to see him. I offered to reschedule his appointment for him, but he said he'd rather work with the person who scheduled the appointment the first time, which is you. He can be reached at [phone]. Thank you. documented in this encounter Plan of Treatment Upcoming Encounters Date Type Specialty Care Team Description 02/15/2022 Office Visit Orthopedic Surgery Madyson Rosa, D.ONikhil [address] [place], [place] [phone] (Wo rk) documented as of this encounter Visit Diagnoses Not on filedocumented in this encounter Additional Health Concerns Assessment Noted Time PHQ-9 Depression Total Score: 4 03/02/2021 10:28 AM CS T documented as of this encounter Care Teams Photo Manager Relationship Specialty Start Date End Date Norma Kenny APRN, C.N.P. PCP - General 09/12/[address] [place] [phone] documented as of this encounter
--- OUTSIDE RECORDS SUMMARY | 2022-01-25 11:35 | XMS_ITS | Encounter Summary ---
:1965 Author Organization [facility] Address [address] [place] [address] Care Team Providers Name Role Phone Norma Kenny APRN, C.N.P. Primary Care Provider [phone] Reason for Visit Reason Comments Knee Pain Left Outpatient (Routine) - Closed Specialty Diagnoses / Referred By Contact Referred To Contact Procedures [facility] [address] [place] [phone] Referral ID Status Reason Start Date Expiration Date Visits Requ ested Visits Authorized [id number] Closed 08/17/2021 08/17/2022 1 1 Encounter Details Date Type Department Care Team Description 09/28/2021 Office Visit Department of Physical Melchor Westbrook Tear Knee Meniscus Current Subsequent Left (Primary Dx); Medicine and O, D.O. 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 - 09/28/2021 9:30 AM CDT SUBJECTIVE CHIEF COMPLAINT/REASON FOR VISIT Follow up: left knee pain HISTORY OF PRESENT ILLNESS Mr. Murray returns today for further evaluation of left knee pain. He reports since his last visit he is about the same. He reports he has some good days and some bad days in regards to his knee. Today his knee pain is a 3 or 4/10. He reports that when he is walking in using his brace the pain is less than when he is lying down at night. Laying down fully extending the knee type of other more. Hasno new concerns in regards to his knee but is wondering next step should be. PRIOR HISTORY: Mr. Murray returns today for [...] doing as he did get a medial auto mechanic supervisor brace and this helps with some of the discomfort when he walks, though he still does have significant pain. ?? .??Trevor??returns today for further evaluation of bilateral??low back and hip??pain. He??reports since his??last visit he??did have a significant response to the bilateral trochanteric bursa injections. ??He reports he is not having any left-sided hip for buttock pain, though on the right he is having pain more in the middle of his buttock radiating to the spine. ??He is not having any pain over the lateral right hip. ??He reports that he does feel the facet injections were helpful but his pain now is somewhat lower than where those injections were done.?Pain can still bother him a lot when he is doing work and heavy lifting. ??He has minimal pain in the low back when he sits in without activity. ??He is concerned about this ongoing pain and how it will affect his returning to work as itcan be pretty significant up to a 7 or 8/10 when he tries to exert himself. ?? 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 ??He had some pain initially but the following day he developed severe pain and some swelling in the knee. ??Pain is located over the knee and distal thigh. ??He reports that he has been using a brace to give him some support and this is somewhat helpful. ??He did touch base with his primary provider Norma Kenny a few days after his injury, and she had recommended if his pain was not getting better to return, and he does have an appointment next week with her. ??He does not feel any catching or locking, but does still notice some swelling from time to time and s ome significant pain when ambulating. ?? .??Trevor??is a very [...] deficits or any bowel or bladder changes. ?? The following portions of the patient's history [...] erythema, warmth, rashes, or concerning skin lesions Gait: Antalgic favoring the left leg. MSK: Head Bone Grinder brace in place, able to fully flex the knee with minimal pain. Fully extending the knee reproduces pain. IMAGING: MRI of the left knee, reveals root tear of the medial meniscus. There is marginal chondral loss withmarrow signal abnormality consistent with contusion. There is inferior central trochlear chondral loss. ?? X-Ray of the??hip, dated 04/30/2018, reveals no [...] patient. ASSESSMENT / PLAN Diagnosis Plan 1. Tear Knee Meniscus Current Subsequent Left 2. Hyperlipidemia 3. Pain Knee Left We discussed his history, physical exam findings, as well as his response to prior treatment. Unfortunately he has not had much improvement in his knee pain. We did discuss with meniscal root tears there are several options for treatment including conservative care with physical therapy, bracing, oraland topical medications and injections. From a surgical standpoint he could consider a meniscal resection versus a meniscal repair. I did discuss that repair if possible is the more optimal surgery butthere is more down time initially. He would like to discuss with Dr. Shelton proceeding with surgery either way as he is not sure further conservative measures are going to be helpful for him. He did request a refill of his statin today, however I do see that his primary provider Norma Kardoes did want blood work before he refills this. I will send her a message to verify this before his medication is refilled. Patient is in agreement to plan as outlined above. All of his questions were answered to the best myability. documented in this encounter Plan of Treatment Upcoming Encounters Date Type Specialty Care Team Description 02/15/2022 Office Visit Orthopedic Surgery Madyson Rosa D.O. [address] [place], [place] [phone] (Wo rk) documented as of this encounter Visit Diagnoses Diagnosis Tear Knee Meniscus Current Subsequent Le ft - Primary Hyperlipidemia Pain Knee Left documented in this encounter Additional Health Concerns Assessment Noted Time PHQ-9 Depression Total Score: 4 03/02/2021 10:28 AM CS T documented as of this encounter Care Teams [employer] Relationship Specialty Start Date End Date Norma Kenny APRN, C.N.P. PCP - General 09/12/[address] [place] [address] documented as of this encounter
--- OUTSIDE RECORDS SUMMARY | 2022-01-25 11:35 | XMS_ITS | Encounter Summary ---
:1965 Author Organization [facility] Address [address] [place] [address] Care Team Providers Name Role Phone Norma Kenny APRN C.N.PNikhil Primary Care Provider [phone] Encounter Details Date Type Department Care Team Description 07/17/2021 Clinical Communication Department of Chase Philippe, Medicine in 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 - 07/17/2021 4:53 PM CDT Returned call and unable to reach pt. Detailed message left on [employer] reading rad. Report exactlyas written. Asked pt to contact clinic on Friday as she will be in to answer any questions he may have. Telephone Encounter - July Eason - 07/17/2021 2:13 PM CDT The patient would like a call back at [phone] with the results of his x-ray. He says he was speaking with someone about the results, but then was disconnected before he could hear the results. Thank you. documented in this encounter Plan of Treatment Upcoming Encounters Date Type Specialty Care Team Description 02/15/2022 Office Visit Orthopedic Surgery Madyson Rosa, D.ONikhil [address] [place], [place] [phone] (Wo rk) documented as of this encounter Visit Diagnoses Not on filedocumented in this encounter Additional Health Concerns Assessment Noted Time PHQ-9 Depression Total Score: 4 03/02/2021 10:28 AM CS T documented as of this encounter Care Teams Filer Finish Relationship Specialty Start Date End Date Norma Kenny, STEVEN, C.N.P. PCP - General 09/12/[address] [place] [phone] documented as of this encounter
--- OUTSIDE RECORDS SUMMARY | 2022-01-25 11:35 | XMS_ITS | Encounter Summary ---
:1965 Author Organization [facility] Address [address] [place] [address] Care Team Providers Name Role Phone Norma Kenny APRN C.N.P. Primary Care Provider [phone] Reason for Visit Reason Comments Medication Question Encounter Details Date Type Department Care Team Description 06/15/2021 Clinical Communication Department of Norma Kenny dication Question Family Medicine in STEVEN Sal[place], C.N.P. 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 - 06/15/2021 2:42 PM CDT Pt has been taking Ibuprofen 600mg TID with no relief. He would like to try prescription Naproxen asyou recommended. Please send Rx to [facility] [place] Telephone Encounter - Nasrin Rodrigues APRN, C.N.P., D.N.P. - 06/15/2021 2:26 PM CDT Please call patient and let him know that additional course of steroids would not be recommended at this time as he had oral course of steroids and two steroid injections in the past month and need to be cautious with how much steroids are being used. We could consider prescription NSAID such as naproxen if otc meds have not been helpful. Telephone Encounter - May Lua R.N. - 06/15/2021 1:37 PM CDT Pt is currently experiencing right hip pain-11/07. He was seen by Dr. Westbrook on 05/09/21 for this andback pain. 05/09/21: he received US-guided bilateral trochanteric bursa corticosteroid injection for right hip pain and on 05/28/21 [place] Lumbar Spine Facet Injection Bilateral. Pt was given medrol dose pack by [facility] on 05/01/21 at for back pain. He currently has 1/2 of Day 2-6 left of the medrol Dose Pack and he is wondering if he could restart the series or if he could have another dose pack. He does have an appt to see Dr. Westbrook on 06/22/21 Telephone Encounter - Deb Holbrook - 06/15/2021 12:51 PM CDT Had a medication question. documented in this encounter Plan of Treatment Upcoming Encounters Date Type Specialty Care Team Description 02/15/2022 Office Visit Orthopedic Surgery Madyson Rosa, DNikhilONikhil [address] [facility] [place] [phone] (Wo rk) documented as of this encounter Visit Diagnoses Diagnosis Pain Low Back Chronic - Primary documented in this encounter Additional Health Concerns Assessment Noted Time PHQ-9 Depression Total Score: 4 03/02/2021 10:28 AM CS T documented as of this encounter Care Teams Adult Specialist Relationship Specialty Start Date End Date Norma Kenny APRN, C.N.P. PCP - General 09/12/[address] [place] [address] documented as of this encounter
--- OUTSIDE RECORDS SUMMARY | 2022-01-25 11:35 | XMS_ITS | Encounter Summary ---
:1965 Author Organization [facility] Address [address] [place] [address] Care Team Providers Name Role Phone Norma Kenny APRN C.N.P. Primary Care Provider Reason for Visit Reason Comments Hypertension Back pain Encounter Details Date Type Department Care Team Description 06/29/2021 Office Visit Department of Family Norma Kenny El evated Liver Enzyme Test (Primary Dx); Medicine in [facility] STEVEN C.N.P. Pain Low Back Chronic [place], [place] [address] [place] [phone] Social History Tobacco Use Types Packs/Day Years [...] or relatives? How often do you attend samaritan or congregation More than 4 time s per year 09/17/2018 services? 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 - 06/29/2021 11:15 AM CDT SUBJECTIVE CHIEF COMPLAINT/REASON FOR VISIT Hypertension (Back pain/) HISTORY OF PRESENT ILLNESS Saad Murray is a 55 y.o. male who presents for follow up of his blood pressure and back pain. His blood pressure has been running well since he has been feeling better, drinking less, healthier habits. He continues to have low back and right sided pain. He has been seeing Dr. Westbrook with PMRfor this, and did have bilateral lumbar Facet injections by Dr. Griffin in May. He does not feel that they helped much. He was scheduled for a follow up appointment with them but this was cancelled due to provider illness and it sounds like he did not reschedule at that time. He states he is taking Aleve as needed, and only drinking a few beers on the weekends, none during the week. He had elevated l iver enzymes after his COVID-19 infection at the end of 2020, and so we have been monitoring those, trending downward. No new concerns today. REVIEW OF SYSTEMS As stated above. Otherwise a complete systems review was performed and negative. PROBLEM LIST: Patient Active Problem List Diagnosis ??? Hypertension Essential Primary ??? Body Mass Index 40.0 To 44.9 Adult (HCC) ??? Hypercholesterolemia ??? Gastroesophageal Reflux Disease ??? Palpitations ??? Pain Shoulder Left ??? Pain Hip Right ??? Acute Lower Respiratory Infection Due To COVID-19 ??? Pain Low Back Chronic CURRENT MEDICATIONS Current Outpatient Medications Medication Sig ??? atorvastatin (LIPITOR) 20 mg tablet Take 1 tablet (20 mg total) by mouth at bedtime. NEEDS LABS BEFORE NEXT REFILL ??? lisinopriL (PRINIVIL,ZESTRIL) 20 mg tablet TAKE 1 TABLET(20 MG) BY MOUTH DAILY ??? LORazepam (ATIVAN) 1 mg tablet Take 1 tablet (1 mg total) by mouth at bedtime as needed for anxiety. ??? methylPREDNISolone (MEDROL DOSEPAK) 4 mg tablet Take as directed on package. ??? metoprolol succinate (TOPROL-XL) 25 mg 24 hr tablet TAKE 1 TABLET(25 MG) BY MOUTH DAILY FOR BLOOD PRESSURE ??? pantoprazole (PROTONIX) 20 mg EC tablet Take 1 tablet (20 mg total) by mouth 2 (two) times a day. (Patient taking differently: Take 20 mg by mouth as needed.) ??? sertraline (ZOLOFT) 100 mg tablet Take 1.5 tablets (150 mg total) by mouth daily. ??? naproxen (NAPROSYN) 500 mg tablet Take 1 tablet (500 mg total) by mouth 2 (two) times a day as needed for pain (pain). (Patient not taking: Reported on 06/29/2021) ALLERGIES/CONTRAINDICATIONS No Known Allergies MEDICAL HISTORY Past Medical History: Diagnosis Date ??? Gastroesophageal Reflux Disease ??? Hypercholesterolemia ??? Hypertension NOS ??? Hypokalemia 02/06/2021 ??? Hyponatremia 02/05/2021 ??? Pain Leg Bilateral 02/05/2021 SURGICAL HISTORY Past Surgical History: Procedure Laterality Date ??? REPAIR OF UMBILICAL HERNIA N/A 04/12/2016 Repair of umbilical hernia ??? VASECTOMY N/A 03/05/2005 Vasectomy FAMILY HISTORY Family History Problem Relation Age of Onset ??? Hypertension Father ??? Parkinsons disease Father ??? Hypertension Mother ??? CVD - cardiovascular disease Mother ??? Pacemaker battery Mother ??? ROMY disease Brother ??? Hypertension Sister ??? No Known Problems Maternal Grandmother ??? Heart attack Maternal Grandfather ??? No Known Problems Paternal Grandmother ??? No Known Problems Paternal Grandfather ??? No Known Problems Sister ??? Colon cancer Neg Hx ??? Prostate cancer Neg Hx SOCIAL HISTORY Social History Tobacco Use ??? Smoking status: Former Smoker Packs/day: 0.00 Types: Cigarettes ??? Smokeless tobacco: Never Used ??? Tobacco comment: Quit in 20s.--occasional cigars Vaping Use ??? Vaping Use: never used Substance Use Topics ??? Alcohol use: Yes Comment: Limits to weekends; Drinks beer or mixed drinks. ??? Drug use: No Social History Social History Narrative He is . He is currently not in any relationship since his of breast cancer 2-3 years ago. Lives with his son Aram who is a senior this year. Older daughter is in 3rd year 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 Has no pets. Plans to move into [place] this year after renovation and sell current home. OBJECTIVE VITAL SIGNS BP 133/81 Pulse 90 Temp 36.8 ??C Resp 20 Wt (!) 145 kg SpO2 99% BMI 41.16 kg/m?? PHYSICAL EXAMINATION General: Patient is alert, oriented and appears to be in no distress. Neck is supple and without mass or adenopathy. Cardiovascular: Heart is regular rate and rhythm. There are no murmurs, gallops or rubs. Respiratory: Breathing is nonlabored. Lungs are clear to auscultation bilaterally. Extremities: There is no lower extremity edema. Abdomen: Soft and nontender throughout. No organomegaly. Skin: No rashes or lesion noted. Neurologic: No neurologic deficit noted. ASSESSMENT / PLAN #1 Elevated Liver Enzyme Test We will recheck a CMP today to review liver enzymes and renal function if he has restarted NSAIDS asneeded. He was taking them daily before. Blood pressure is normal today. - Comprehensive Metabolic Panel; Future; Expected date: 06/29/2021 - Comprehensive Metabolic Panel #2 Pain Low Back Chronic He will schedule his follow up appointment with Dr. Westbrook for further recommendations on additional interventions for his back pain. I encouraged physical therapy for him. He states he would consider this if it will help. I see an order is in the queue for this, if this needs to be reordered I can do this for him. All questions answered. Norma Kenny APRN C.N.P. documented in this encounter Miscellaneous Notes Result Encounter Note - Norma Kenny APRN, C.N.P. - 06/29/2021 4:19 PM CDT Yes - I saw in orders that his order was still in the queue - it stated patient needs to schedule by it still. He was scheduled last Friday with Dr. Westbrook but dr. Westbrook was out sick and so this was cancelled and he needs to reschedule. Thanks, TK Result Encounter Note - Norma Kenny APRN, C.N.P. - 06/29/2021 3:25 PM CDT Liver enzymes back to normal. He can continue ibuprofen 600mg BID this week as needed. Did he get his appt scheduled with Dr. Westbrook before he left? Or does he need to talk with scheduling? Thanks, TK documented in this encounter Plan of Treatment Upcoming Encounters Date Type Specialty Care Team Description 02/15/2022 Office Visit Orthopedic Surgery Madyson Rosa, Jarad.ONikhil [address] [place], [place] [phone] (Wo rk) documented as of this encounter Procedures Procedure Name Priority Date/Time Associated Comments Diagnosis COMPREHENSIVE Routine 06/29/2021 12:00 Elevated Liver Results for this METABOLIC PANEL, S/P PM CDT Enzyme Test procedu re are in the results section. documented in this encounter Results Comprehensive Metabolic Panel (06/29/2021 12:00 PM CDT) P athologist Signature Potassium, P 4.8 3.6 - 5.2 06/29/2021 NPRG mmol/L 2:20 PM CDT Sodium, P 138 135 - 145 06/29/2021 NPRG mmol/L 2:20 PM CDT Chloride, P 100 98 - 107 06/29/2021 NPRG mmol/L 2:20 PM CDT Bicarbonate, P 27 22 - 29 06/29/2021 NPRG mmol/L 2:20 PM CDT Anion Gap, P 11 7 - 15 06/29/2021 NPRG 2:20 PM CDT BUN (Blood Urea 23 8 - 24 06/29/2021 NPRG Nitrogen), P mg/dL 2:20 PM CDT Creatinine 0.77 0.74 - 06/29/2021 NPRG 1.35 mg/dL 2:20 PM CDT eGFR-Black/Afric >90 >=60 06/29/2021 NPRG an Sudanese mL/min/BSA 2:20 PM CDT Comment: ----ADDITIONAL INFORMATION---- Estimated GFR calculated using the 2009 CKD_EPI creatinine equation. eGFR Non-Black/ >90 >=60 mL/min/BSA 06/29/2021 2:20 PM CDT NPRG Comment: ----ADDITIONAL INFORMATION---- Estimated GFR calculated using the 2009 CKD_EPI creatinine equation. Calcium, Total, P 10.0 8.6 - 10.0 mg/dL 06/29/2021 2:20 PM CDT NPRG Glucose, P 107 70 - 140 mg/dL 06/29/2021 2:20 PM CDT N PRG Protein, Total, P 7.7 6.3 - 7.9 g/dL 06/29/2021 2:20 P M CDT NPRG Albumin, P 4.5 3.5 - 5.0 g/dL 06/29/2021 2:20 PM CDT N PRG Aspartate Aminotransferase 40 8 - 48 U/L 06/29/2021 2 :20 PM CDT NPRG (AST), P Alkaline Phosphatase, P 88 40 - 129 U/L 06/29/2021 2: 20 PM CDT NPRG Alanine Aminotransferase (ALT), 53 7 - 55 U/L 022 2:20 PM CDT NPRG P Bilirubin, Total, P 0.4 <=1.2 mg/dL 06/29/2021 2:20 PM CDT NPRG Specimen Anatomical Collection Method Collection Time Receive d Time (Source) Location / / Volume Laterality Blood (Blood, 06/29/2021 12:00 06/29/2021 1:46 Venous) PM CDT PM CDT Norma Kenny APRN, C.N.P. LAB BLOOD ADD-ON Performing Organization Address City/State/ZIP Code Phon e Number [facility]- [address] [place], [place] [address] [place] [address] [place] [address] [facility] [address] [place] documented in this encounter Visit Diagnoses Diagnosis Elevated Liver Enzyme Test - Primary Pain Low Back Chronic documented in this encounter Additional Health Concerns Assessment Noted Time PHQ-9 Depression Total Score: 4 03/02/2021 10:28 AM CS T documented as of this encounter Care Teams Probation Officer Relationship Specialty Start Date End Date Norma Kenny APRN, C.N.P. PCP - General 09/12/[address] [place] [phone] documented as of this encounter
--- OUTSIDE RECORDS SUMMARY | 2022-01-25 11:36 | XMS_ITS | Encounter Summary ---
:1965 Author Organization [facility] Address [address] [place] [address] Care Team Providers Name Role Phone Norma Kenny APRN, C.N.P. Primary Care Provider [phone] Encounter Details Date Type Department Care Team Description 05/01/2021 Orders Only Department of Family Norma Kenny, Medicine in [facility] STEVEN, C. N.P. [place] [address] [place] [phone] (Wo rk) Social History Tobacco Use Types [...] DATA ANALYST documented as of this encounter Plan of Treatment Upcoming Encounters Date Type Specialty Care Team Description 02/15/2022 Office Visit Orthopedic Surgery Madyson Rosa il, D.O. [address] [place], [place] [phone] (Wo rk) documented as of this encounter Visit Diagnoses Not on filedocumented in this encounter Additional Health Concerns Assessment Noted Time PHQ-9 Depression Total Score: 4 03/02/2021 10:28 AM CS T documented as of this encounter Care Teams Radio Sportscaster Relationship Specialty Start Date End Date Norma Kenny, STEVEN, C.N.P. PCP - General 09/12/[address] [place] [phone] documented as of this encounter
--- OUTSIDE RECORDS SUMMARY | 2022-01-25 11:36 | XMS_ITS | Encounter Summary ---
:1965 Author Organization [facility] Address [address] [place] [address] Care Team Providers Name Role Phone Norma Kenny APRN, C.N.P. 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 PCP - General 09/12/[address] [place] [phone] documented as of this encounter
--- OUTSIDE RECORDS SUMMARY | 2022-01-25 11:36 | XMS_ITS | Encounter Summary ---
:1965 Author Organization [facility] Address [address] [place] [address] Care Team Providers Name Role Phone Norma Solis APRN, C.N.P. Primary Care Provider [phone] Reason for Visit Reason Comments Med Refill Encounter Details Date Type Department Care Team Description 03/22/2021 Refill Department of Family Medicine Caden Solis APRN, Med Refill in [facility] so C.N.P. 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 - 03/22/2021 11:38 AM AGRICULTURE TECHNICIAN Medication Name:LORazepam (ATIVAN) 1 mg tablet Last Refill: Ordered on: 03/02/2021 Authorized by: NORMA SOLIS Dispense: 10 tablet Refills: 0 ordered Last Office Visit:03/02/21 with zac Due for Office Visit: Future Office Visit:04/03/2021 with zac Last Blood Pressure: 125/81 Last Set of Labs: Last PHQ-9: PHQ9 Score 03/02/2021 PHQ-9 Total Score (max 27) 4 Last MELODY-7: Phamacy: [facility] in [place] IMAGE ANALYST CULTURE TECHNICIAN documented in this encounter Plan of Treatment Upcoming Encounters Date Type Specialty Care Team Description 02/15/2022 Office Visit Orthopedic Surgery RavinwiMadyson haq, D.ONikhil [address] [place], [place] [phone] (Wo rk) documented as of this encounter Visit Diagnoses Diagnosis Anxiety documented in this encounter Additional Health Concerns Assessment Noted Time PHQ-9 Depression Total Score: 4 03/02/2021 10:28 AM CS T documented as of this encounter Care Teams Hydro Generation Manager Relationship Specialty Start Date End Date Norma Solis, NECK FITTER, C.N.P. PCP - General 09/12/[address] [place] [phone] documented as of this encounter
--- OUTSIDE RECORDS SUMMARY | 2022-01-25 11:36 | XMS_ITS | Encounter Summary ---
:1965 Author Organization [facility] Address [address] [place] [address] Care Team Providers Name Role Phone Norma Kenny APRN, C.N.P. Primary Care Provider [phone] Reason for Visit Reason Comments Med Refill Encounter Details Date Type Department Care Team Description 04/06/2021 Refill Department of Family Medicine Caden Kenny APRN, Med Refill in [facility] so C.N.P. [address] [place] [phone] [place] [phone] (Wo rk) Social History Tobacco Use Types [...] or relatives? How often do you attend latter-day or synagogue More than 4 time s per year 09/17/2018 services? 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 - 04/06/2021 4:33 PM CARPENTERS When clarifying pt Sertraline order of 150 mg daily. Pharmacist also states the Omeprazole Bid has been denied. Please advise as appropriate. ENTERS Telephone Encounter - Aliya Cortez R.N. - 04/06/2021 9:02 AM CST Received call from Pharmacy needing clarification on directions for Pantoprazole. Medications statestake 2 tabs (40 mg) po bid. This equals to 80 mg. Per last note, medication clarification given to reflect 40 mg two times a day, ENTERS documented in this encounter Plan of Treatment Upcoming Encounters Date Type Specialty Care Team Description 02/15/2022 Office Visit Orthopedic Surgery Madyson Rosa, D.ONikhil [address] [place], [place] [phone] (Wo rk) documented as of this encounter Visit Diagnoses Diagnosis Gastroesophageal Reflux Disease documented in this encounter Additional Health Concerns Assessment Noted Time PHQ-9 Depression Total Score: 4 03/02/2021 10:28 AM CS T documented as of this encounter Care Teams Phone Circuit Operator Relationship Specialty Start Date End Date Norma Kenny APRN, C.N.P. PCP - General 09/12/[address] [place] [phone] documented as of this encounter
--- OUTSIDE RECORDS SUMMARY | 2022-01-25 11:36 | XMS_ITS | Encounter Summary ---
:[address] [facility] Address [address] [place] [address] Care Team Providers Name Role Phone Norma Kenny APRN, C.N.P. Primary Care Provider [phone] Reason for Referral Appointment Request (Routine) - Closed Specialty Diagnoses / Procedures Referred By Contact Refer red To Contact Diagnoses Fatigue Norma Kenny APRN, Procedures CBC without Differential C.N.P. [address] [place] [address] Referral ID Status Reason Start Date Expiration Date Visits Requ ested Visits Authorized [id number] Closed 04/05/2021 04/05/2022 1 1 NICAL PUBLICATIONS WRITER Specialty Diagnoses / Procedures Referred By Contact Refer red To Contact Norma Kenny AP RN, C.N.P. [facility] [address] [place] [address] Referral ID Status Reason Start Date Expiration Date Visits Requ ested Visits Authorized NICAL PUBLICATIONS WRITER Outpatient (Routine) - Closed Specialty Diagnoses / Procedures Referred By Contact Refer red To Contact Family Medicine Diagnoses Anxiety Norma Kenny APRN, [facility] C.N.P. [address] [place] [address] Referral ID Status Reason Start Date Expiration Date Visits Requ ested Visits Authorized [id number] Closed 04/03/2021 04/03/2022 1 1 NICAL PUBLICATIONS WRITER Reason for Visit Reason Comments Follow-up Outpatient (Routine) - Closed Specialty Diagnoses / Procedures Referred By Contact Refer red To Contact Family Medicine Norma Kenny APRN, [facility] C.N.P. [address] [place] [address] Referral ID Status Reason Start Date Expiration Date Visits Requ ested Visits Authorized [id number] Closed 03/02/2021 03/02/2022 1 1 Encounter Details Date Type Department Care Team Description 04/03/2021 Office Visit Department of Norma Philippe (Primary Dx); Medicine in [facility] STEVEN, C.N.P. Morbid Obesity Body Mass Index 40.0-44.9 Adult ([facility]); [place], [place] [address] [place] Anxiety; [address] [place], [place] Gastroesophageal Reflux Dise ase; [place] [address] Encounter For COVID-19 Vaccine Immunizat [place]; [id number] Fatigue Social History Tobacco Use Types Packs/Day Years [...] or relatives? How often do you attend latter day or mormonism More than 4 time s per year 09/17/2018 services? Do you belong to any clubs or organizations No 09/17/2018 such as latter day groups, unions, fraternal or athletic groups, or [...] at Date Recorded Male 03/25/2018 1:01 PM TECHNICAL PUBLICATIONS WRITER documented as of this encounter Last Filed Vital Signs Vital Sign Reading Time Taken Comments Blood Pressure 128/87 04/03/2021 10:34 AM TECHNICAL PUBLICATIONS WRITER Pulse 105 04/03/2021 10:34 AM TECHNICAL PUBLICATIONS WRITER Temperature 36.7 ??C (98.1 ??F) 04/03/2021 10:34 AM TECHNICAL PUBLICATIONS WRITER Respiratory Rate 20 04/03/2021 10:34 AM TECHNICAL PUBLICATIONS WRITER Oxygen Saturation 95% 04/03/2021 10:34 AM TECHNICAL PUBLICATIONS WRITER Inhaled Oxygen Concentration - - Weight 142 kg (313 lb 3.2 oz) 04/03/2021 10:34 AM TECHNICAL PUBLICATIONS WRITER Height - - Body Mass Index 40.2 02/21/2021 12:52 PM TECHNICAL PUBLICATIONS WRITER documented in this encounter Progress Notes Norma Kenny, STEVEN, C.N.P. - 04/03/2021 10:45 AM CST SUBJECTIVE CHIEF COMPLAINT/REASON FOR VISIT Follow-up HISTORY OF PRESENT ILLNESS Saad Murray is a 55 y.o. male who presents for follow up of symptoms and his last visit. Hestates he continues to have nausea and gagging every morning, and then takes a Zofran for this, it is then better most of the day. He takes his Protonix in the morning as well. He states he has not been eating well, sometimes when he starts to eat foods he feels sick and then does not eat. He drinks orange juice, water, gatorade for fluids, he does not drink much milk. He tried drinking a chocolate protein drink but threw it up, so has not tried it again. He drinks some beer or liquor mostly on the weekends. He states he always feels anxious, has to move around all the time, he was having trouble sleeping (only sleeping 2-3 hours per night, was nervous and restless) but the last 3 days he has beensleeping a lot. He is still quite fatigued, he has not been able to work much. 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 He seems quite anxious and upset today, not himself. He states he is just very frustrated that he is not feeling better. He doesn't notice much change with the Sertraline, perhaps slight improvement. He denies any side effects. He states he wastaking the Lorazepam once daily at bedtime, as he was having trouble sleeping due to anxiety. He ranout of this about 7-10 days ago. He declined to complete an updated PHQ9 and GAD7 today . PROBLEM LIST: Patient Active Problem List Diagnosis ??? Hypertension Essential Primary ??? Body Mass Index 40.0 To 44.9 Adult (HCC) ??? Hypercholesterolemia ??? Gastroesophageal Reflux Disease ??? Palpitations ??? Pain Shoulder Left ??? Pain Hip Right ??? Acute Lower Respiratory Infection Due To COVID-19 ??? Pain Low Back Chronic CURRENT MEDICATIONS Current Outpatient Medications on File Prior to Visit Medication Sig Dispense Refill ??? atorvastatin (LIPITOR) 20 mg tablet TAKE 1 TABLET(20 MG) BY MOUTH AT BEDTIME 30 tablet 0 ??? lisinopriL (PRINIVIL,ZESTRIL) 20 mg tablet TAKE 1 TABLET(20 MG) BY MOUTH DAILY 30 tablet 0 ??? metoprolol succinate (TOPROL-XL) 25 mg 24 hr tablet TAKE 1 TABLET(25 MG) BY MOUTH DAILY FOR BLOOD PRESSURE 90 tablet 3 No current facility-administered medications on file prior to visit. ALLERGIES/CONTRAINDICATIONS No Known Allergies OBJECTIVE VITAL SIGNS BP 128/87 Pulse 105 Temp 36.7 ??C Resp 20 Wt (!) 142 kg SpO2 95% BMI 40.20 kg/m?? PHYSICAL EXAMINATION General: Patient is alert, oriented and appears anxious. He is fidgety, states he is hot and it is hard to breath with his mask on. Neck is supple and without mass or adenopathy. Cardiovascular: Heart is regular rate and rhythm. There are no murmurs, gallops or rubs. Respiratory: Breathing is nonlabored. Lungs are clear to auscultation bilaterally. Extremities: There is no lower extremity edema. Abdomen: Soft and nontender throughout. No organomegaly. Skin: No rashes or lesion noted. Neurologic: No neurologic deficit noted. ASSESSMENT / PLAN #1 Morbid Obesity Body Mass Index 40.0-44.9 Adult (HCC) His diet is not great, although he does state he likes vegetables. He has not had much energy to do any significant activity. He has lost a few pounds due to his nausea and fatigue. #2 Anxiety He is quite anxious today. When I recommended we check some labs today, he declined. He also declined GAD7/PHQ9. He is hesitant to discuss his anxiety in depth. After some investigation, it seems he isin part anxious about receiving his COVID-19 vaccine today. He wants to do it, but doesn't want to have any worsening of symptoms. We discussed expected short term side effects that may be possible with the vaccine. After discussion, I told him we could wait until he is comfortable, as he had COVID-19about 3 months ago. He wants to get it done and so it was given today. He states he will come back later in the week for blood work. - Family Medicine office visit (clinic) - LORazepam (ATIVAN) 1 mg tablet; Take 1 tablet (1 mg total) by mouth at bedtime as needed for anxiety., Starting Fri04/03/2021, Normal - sertraline (ZOLOFT) 100 mg tablet; Take 1.5 tablets (150 mg total) by mouth daily. Take 75mg (1.5 tabs) daily for 10 days, then increase to 100mg (2 tabs) daily., Starting Fri04/03/2021, Normal - Family Medicine office visit (clinic); Future; Expected date: 05/04/2021 #3 Nausea #4 Gastroesophageal Reflux Disease I wonder if his morning nausea is in part due to worsening reflux secondary to anxiety and diet. We discussed diet, he will cut out orange juice, and avoid alcohol. I would like him to trial an eveningdose of Protonix to see if this help relieve his morning nausea and symptoms. Follow up in 1 month. If no improvement, proceed with imaging, EGD, GI consult. - pantoprazole (Protonix) 40 mg EC tablet; Take 1 tablet (40 mg total) by mouth 2 (two) times a day before breakfast and dinner., Starting 04/03/2021, Normal #5 Encounter For COVID-19 Vaccine Immunization COVID-19 vaccine given today. Discussed as above. - SARS-COV-2 (COVID-19) - PFIZER - Covid immunization office visit Subsequent; Pfizer; Future; Expected date: 04/24/2021 #6 Fatigue I would like to recheck some labs today. I also recommended some physical therapy for rehabilitationfrom his long haul COVID-19 symptoms, or better yet, [id number]. He will think about this and discuss with his kids. - CBC without Differential; Future; Expected date: 04/05/2021 - Comprehensive Metabolic Panel; Future; Expected date: 04/05/2021 - Hemoglobin A1c; Future; Expected date: 04/05/2021 - S-TSH (Thyroid-Stimulating Hormone - Sensitive); Future; Expected date: 04/05/2021 Follow up in 1 month, sooner if any concerns, He will schedule labs for the next week and his 2nd pfizer shot for 3-4 weeks. Norma Kenny APRN, C.N.P. NICAL PUBLICATIONS WRITER documented in this encounter Plan of Treatment Upcoming Encounters Date Type Specialty Care Team Description 02/15/2022 Office Visit Orthopedic Surgery RavinidMadyson haq, D.ONikhil [address] [place] [phone] (Wo rk) Scheduled Referrals Name Type Priority Associated Diagnoses Order S chedule Family Medicine Outpatient Referral Routine Anxiety Expec tim: office visit (clinic) 2021 (Approximate), Expires: 07/02/2022 Covid immunization Outpatient Referral Routine Encounter For E xpected: office visit COVID-19 Vaccine 04/24/2021, Subsequent; Pfizer Immunization Expires: 07/02/2022 documented as of this encounter Results S-TSH (Thyroid-Stimulating Hormone - Sensitive) (04/17/2021 10:06 AM TECHNICAL PUBLICATIONS WRITER) P athologist Signature TSH, Sensitive 1.5 0.3 - 4.2 04/17/2021 [facility] mIU/L 12:20 PM TECHNICAL PUBLICATIONS WRITER Specimen Anatomical Collection Method Collection Time Receive d Time (Source) Location / / Volume Laterality Blood (Blood, 04/17/2021 10:06 04/17/2021 Venous) AM TECHNICAL PUBLICATIONS WRITER 11:36 AM TECHNICAL PUBLICATIONS WRITER Norma Kenny APRN, [place].N.P. LAB BLOOD ADD-ON Performing Organization Address City/State/ZIP [facility] Phon e Number [address] [address] [facility] [place] [phone] Hemoglobin A1c (04/17/2021 10:06 AM TECHNICAL PUBLICATIONS WRITER) athologist Signature Hemoglobin A1c, 5.4 4.2 - 5.6 04/17/2021 NPRG B % 12:29 PM TECHNICAL PUBLICATIONS WRITER Specimen Anatomical Collection Method Collection Time Receive d Time (Source) Location / / Volume Laterality Blood (Blood, 04/17/2021 10:06 04/17/2021 Venous) AM TECHNICAL PUBLICATIONS WRITER 11:36 AM TECHNICAL PUBLICATIONS WRITER Norma Kenny APRN, C.N.P. LAB BLOOD ADD-ON Performing Organization Address City/[facility] Code Phon e Number [address] [address] [facility] [place] [phone] [address] (ABNORMAL) Comprehensive Metabolic Panel (04/17/2021 10:06 AM TECHNICAL PUBLICATIONS WRITER) athologist Signature Potassium, P 3.8 3.6 - 5.2 04/17/2021 NPRG mmol/L 12:25 PM TECHNICAL PUBLICATIONS WRITER Sodium, P 135 135 - 145 04/17/2021 NPRG mmol/L 12:25 PM TECHNICAL PUBLICATIONS WRITER Chloride, P 93 (L) 98 - 107 04/17/2021 NPRG mmol/L 12:25 PM TECHNICAL PUBLICATIONS WRITER Bicarbonate, P 27 22 - 29 04/17/2021 NPRG mmol/L 12:25 PM TECHNICAL PUBLICATIONS WRITER Anion Gap, P 15 7 - 15 04/17/2021 NPRG 12:25 PM TECHNICAL PUBLICATIONS WRITER BUN (Blood Urea 14 8 - 24 04/17/2021 NPRG Nitrogen), P mg/dL 12:25 PM TECHNICAL PUBLICATIONS WRITER Creatinine 0.78 0.74 - 04/17/2021 NPRG 1.35 mg/dL 12:25 PM TECHNICAL PUBLICATIONS WRITER eGFR-Black/Afri >90 >=60 04/17/2021 NPRG can Filipino mL/min/BSA 12:25 PM TECHNICAL PUBLICATIONS WRITER Comment: ----ADDITIONAL INFORMATION---- Estimated GFR calculated using the 2009 CKD_EPI creatinine equation. eGFR Non-Black/ >90 >=60 mL/min/BSA 04/17/2021 12:25 PM TECHNICAL PUBLICATIONS WRITER NPRG Comment: ----ADDITIONAL INFORMATION---- Estimated GFR calculated using the 2009 CKD_EPI creatinine equation. Calcium, Total, P 8.9 8.6 - 10.0 mg/dL 04/17/2021 12:2 5 PM NPRG TECHNICAL PUBLICATIONS WRITER Glucose, P 121 70 - 140 mg/dL 04/17/2021 12:25 PM NPRG TECHNICAL PUBLICATIONS WRITER Protein, Total, P 7.6 6.3 - 7.9 g/dL 04/17/2021 12:25 PM NPRG TECHNICAL PUBLICATIONS WRITER Albumin, P 4.3 3.5 - 5.0 g/dL 04/17/2021 12:25 PM NPRG TECHNICAL PUBLICATIONS WRITER Aspartate Aminotransferase 265 (H) 8 - 48 U/L 04/17/2021 1 2:25 PM NPRG (AST), P TECHNICAL PUBLICATIONS WRITER Alkaline Phosphatase, P 97 40 - 129 U/L 04/17/2021 12 :25 PM NPRG TECHNICAL PUBLICATIONS WRITER Alanine Aminotransferase 150 (H) 7 - 55 U/L 04/17/2021 12: 25 PM NPRG (ALT), P TECHNICAL PUBLICATIONS WRITER Bilirubin, Total, P 1.6 (H) <=1.2 mg/dL 04/17/2021 12:25 P M NPRG TECHNICAL PUBLICATIONS WRITER Specimen Anatomical Collection Method Collection Time Receive d Time (Source) Location / / Volume Laterality Blood (Blood, 04/17/2021 10:06 04/17/2021 Venous) AM TECHNICAL PUBLICATIONS WRITER 11:36 AM TECHNICAL PUBLICATIONS WRITER Viridiana Adams APRNNNikhilP. LAB BLOOD ADD-ON Performing Organization Address City/State/ZIP Code Phon e Number [facility] [address] [place], [place] [address] [place] [address] (ABNORMAL) CBC without Differential (04/17/2021 10:06 AM TECHNICAL PUBLICATIONS WRITER) [facility] gist Method Time Signature Hemoglobin 14.0 13.2 - 04/17/2021 NPRG 16.6 g/dL 1:41 PM TECHNICAL PUBLICATIONS WRITER Hematocrit 40.5 38.3 - 04/17/2021 NPRG 48.6 % 1:41 PM TECHNICAL PUBLICATIONS WRITER Erythrocytes 4.08 (L) 4.35 - 04/17/2021 NPRG 5.65 1:41 PM TECHNICAL PUBLICATIONS WRITER x10(12)/L MCV 99.3 (H) 78.2 - 04/17/2021 NPRG 97.9 fL 1:41 PM TECHNICAL PUBLICATIONS WRITER RBC Distrib Width 12.6 11.8 - 04/17/2021 NPRG 14.5 % 1:41 PM TECHNICAL PUBLICATIONS WRITER Platelet Count 81 (L) 135 - 317 04/17/2021 NPRG x10(9)/L 1:41 PM TECHNICAL PUBLICATIONS WRITER Leukocytes 5.2 3.4 - 9.6 04/17/2021 NPRG x10(9)/L 1:41 PM TECHNICAL PUBLICATIONS WRITER Specimen Anatomical Collection Method Collection Time Receive d Time (Source) Location / / Volume Laterality Blood (Blood, 04/17/2021 10:06 04/17/2021 Venous) AM TECHNICAL PUBLICATIONS WRITER 11:36 AM TECHNICAL PUBLICATIONS WRITER Norma Kenny APRN, C.N.P. LAB BLOOD ADD-ON Performing Organization Address City/State/ZIP Code Phon e Number [facility] [address] [place], [place] [address] [place] [address] [place] [address] [address] [facility] documented in this encounter Visit Diagnoses Diagnosis Nausea - Primary Morbid Obesity Body Mass Index 40.0-44.9 Adult (HCC) Anxiety Gastroesophageal Reflux Disease Encounter For COVID-19 Vaccine Immunizat ion Fatigue documented in this encounter Additional Health Concerns Assessment Noted Time PHQ-9 Depression Total Score: 4 03/02/2021 10:28 AM CS T documented as of this encounter Care Teams Railroad Commissioner Relationship Specialty Start Date End Date Norma Kenny APRN, C.N.P. PCP - General 09/12/[address] [place] [address] documented as of this encounter
--- OUTSIDE RECORDS SUMMARY | 2022-01-25 11:36 | XMS_ITS | Encounter Summary ---
:1965 Author Organization [facility] Address [address] [place] [address] Care Team Providers Name Role Phone Norma Kenny APRN, C.N.P. Primary Care Provider [phone] Reason for Visit Reason Comments Med Refill Encounter Details Date Type Department Care Team Description 03/19/2021 Refill Department of Family Medicine Caden Kenny APRN, Med Refill in [facility] so C.N.P. [address] [place] [address] [place] [phone] (Wo rk) Social History Tobacco Use Types [...] or relatives? How often do you attend mu-ism or rastafarian More than 4 time s per year 09/17/2018 services? Do you belong to any clubs or organizations No 09/17/2018 such as mu-ism groups, unions, fraternal or athletic groups, or [...] at Date Recorded Male 03/25/2018 1:01 PM THERAPEUTIC MENTOR documented as of this encounter Miscellaneous Notes Telephone Encounter - Mechelle Poole L.PNikhilNNikhil - 03/19/2021 12:58 PM THERAPEUTIC MENTOR Unable to refill per protocol: Name of Medications Needing Refill: atorvastatin (LIPITOR) 20 mg tablet Last Refill Date: 02/16/21 Additional Information: last lipid panel drawn 05/21/19 = abnormal Last / Future Appointment: Last OV 03/02/21 ; future appt 04/03/21 APEUTIC MENTOR documented in this encounter Plan of Treatment Upcoming Encounters Date Type Specialty Care Team Description 02/15/2022 Office Visit Orthopedic Surgery RavintnMadyson haq, D.ONikhil [address] [place], [place] [phone] (Wo rk) documented as of this encounter Visit Diagnoses Diagnosis Hyperlipidemia documented in this encounter Additional Health Concerns Assessment Noted Time PHQ-9 Depression Total Score: 4 03/02/2021 10:28 AM CS T documented as of this encounter Care Teams Air Intelligence Specialist Relationship Specialty Start Date End Date Norma Kenny, STEVEN, C.N.P. PCP - General 09/12/[address] [place] [address] documented as of this encounter
--- OUTSIDE RECORDS SUMMARY | 2022-01-25 11:36 | XMS_ITS | Encounter Summary ---
:1965 Author Organization [facility] Address [address] [place] [address] Care Team Providers Name Role Phone Norma Solis APRN C.N.P. Primary Care Provider [phone] Reason for Visit Reason Comments Rx Prior Authorization PANTOPRAZOLE SODIUM 40 MG - PA QTY DENIED Encounter Details Date Type Department Care Team Description 04/06/2021 Clinical Communication Department of Blaise Solis Family Medicine in Author Ansleyizmya tileighann Booth APRN, C.N.P. (PANTOPRAZOLE SODIUM [place] [address] 40 MG - PA QTY [address] NE DENIED) [place], [place] Erik [place], [phone] [place] [phone] Social History Tobacco Use Types Packs/Day Years [...] or relatives? How often do you attend sabianist or zoroastrianism More than 4 time s per year 09/17/2018 services? Do you belong to any clubs or organizations No 09/17/2018 such as sabianist groups, unions, fraternal or athletic groups, or [...] at Date Recorded Male 03/25/2018 1:01 PM ASSISTANT KITCHEN MANAGER documented as of this encounter Miscellaneous Notes Addendum Note - Norma Solis APRN, C.N.P. - 04/12/2021 7:54 AM ASSISTANT KITCHEN MANAGER Addended by: NORMA SOLIS on: 04/12/2021 07:54 AM Modules accepted: Orders STANT KITCHEN MANAGER Addendum Note - Lorraine Cosby - 04/11/2021 11:54 AM ASSISTANT KITCHEN MANAGER Addended by: LORRAINE COSBY on: 04/11/2021 11:54 AM Modules accepted: Orders STANT KITCHEN MANAGER Telephone Encounter - Lorraine Cosby - 04/11/2021 11:53 AM CST Left pt a detialed message regarding medication change. I have pended the medication for Norma to approve STANT KITCHEN MANAGER Telephone Encounter - Norma Solis APRN, C.N.P. - 04/10/2021 8:19 AM ASSISTANT KITCHEN MANAGER If this is not allowed- we can switch to 20mg BID to see if evening dose helps more with morning nausea. Thanks, TK STANT KITCHEN MANAGER Telephone Encounter - Mercedes Jacobo - 04/06/2021 3:32 PM CST Images from the original note were not included. The patient's health insurer has denied prior authorization for PANTOPRAZOLE SODIUM 40 MG. [place] QTY DENIED. MAX 1 PER DAY. A quick view of the denial reason is in this communication message. To view the denial letter: 1. Go to Snapshot 2. Go to the purple Medications box 3. Click on the blue Prior Authorizations link 4. Under Denied, click on the blue medication link to open and view the attachment. As the prescriber your options are: ??? Appeal the decision to the insurer directly (see denial letter for how to appeal). ??? Write a new Rx for an alternative medication therapy. ??? Release the Rx to the pharmacy so the patient can pay out of pocket if they desire. To Release Rx: Open this encounter, go to Meds & Orders, click on the medication, and click the blue ???Release Rx?? button. PLEASE NOTE: If the ???Release Rx?? button is not visible, the Rx has already been released to the pharmacy. If you have questions, please reply via QuickNote to Keyshawn HERMAN. Thank you, The OPPA Team STANT KITCHEN MANAGER documented in this encounter Plan of Treatment Upcoming Encounters Date Type Specialty Care Team Description 02/15/2022 Office Visit Orthopedic Surgery Madyson Rosa il, D.O. [address] [place], [place] [phone] (Wo rk) documented as of this encounter Visit Diagnoses Not on filedocumented in this encounter Additional Health Concerns Assessment Noted Time PHQ-9 Depression Total Score: 4 03/02/2021 10:28 AM CS T documented as of this encounter Care Teams Aquatics Director Relationship Specialty Start Date End Date Norma Solis, NETWORK PLANNER, C.N.P. PCP - General 09/12/[address] [place] [phone] documented as of this encounter
--- OUTSIDE RECORDS SUMMARY | 2022-01-25 11:36 | XMS_ITS | Encounter Summary ---
:1965 Author Organization [facility] Address [address] [place] [address] Care Team Providers Name Role Phone Norma Kenny APRN, C.N.P. Primary Care Provider [phone] Reason for Visit Reason Comments Med Refill Encounter Details Date Type Department Care Team Description 05/01/2021 Refill Department of Family Medicine Caden Kenny APRN, Med Refill in [facility] so C.N.P. 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 - 05/01/2021 8:41 AM TELEPHONE INSTALLER Name of medication: Requested Prescriptions Pending Prescriptions Disp Refills ??? atorvastatin (LIPITOR) 20 mg tablet [Pharmacy Med Name: ATORVASTATIN 20MG TABLETS] 30 tablet 0 Sig: TAKE 1 TABLET(20 MG) BY MOUTH AT BEDTIME Last refilled: 03/20/21 Additional information: Last Lipid Lab Results Component Value Date CHOL 218 (H) 05/21/2019 Lab Results Component Value Date HDL 80 05/21/2019 Lab Results Component Value Date LDLCALC 127 05/21/2019 Lab Results Component Value Date TRIG 56 05/21/2019 Lab Results Component Value Date TTLCHOLHDLRT 4.7 (H) 05/28/2012 Correct Pharmacy Selected in Epic: Yes Last/Next Appt: Last Appointment: 04/03/2021 Future appointment 05/01/21 PHONE INSTALLER documented in this encounter Plan of Treatment Upcoming Encounters Date Type Specialty Care Team Description 02/15/2022 Office Visit Orthopedic Surgery Madyson Rosa, D.ONikhil [address] [place], [place] [phone] (Wo rk) documented as of this encounter Visit Diagnoses Diagnosis Hyperlipidemia documented in this encounter Additional Health Concerns Assessment Noted Time PHQ-9 Depression Total Score: 4 03/02/2021 10:28 AM CS T documented as of this encounter Care Teams Case Liner Relationship Specialty Start Date End Date Norma Kenny, STEVEN, C.N.P. PCP - General 09/12/[address] [place] [phone] documented as of this encounter
--- OUTSIDE RECORDS SUMMARY | 2022-01-25 11:36 | XMS_ITS | Encounter Summary ---
:1965 Author Organization [facility] Address [address] [place] [address] Care Team Providers Name Role Phone Norma Kenny APRN, C.N.P. 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 PCP - General 09/12/[address] [place] [address] documented as of this encounter
--- OUTSIDE RECORDS SUMMARY | 2022-01-25 11:36 | XMS_ITS | Encounter Summary ---
:1965 Author Organization [facility] Address [address] [place] [address] Care Team Providers Name Role Phone Norma Kenny APRN C.N.PNikhil Primary Care Provider [phone] Encounter Details Date Type Department Care Team Description 04/25/2021 Clinical Communication Department of Chase Philippe, Medicine in [facility] [place], [place] [address] [place] [phone] [phone] Social History Tobacco Use Types Packs/Day Years [...] or relatives? How often do you attend anabaptist or rastafari More than 4 time s per year 09/17/2018 services? 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 [address] [place], [place] [phone] (Wo rk) documented as of this encounter Visit Diagnoses Not on filedocumented in this encounter Additional Health Concerns Assessment Noted Time PHQ-9 Depression Total Score: 4 03/02/2021 10:28 AM CS T documented as of this encounter Care Teams Uke Driver Relationship Specialty Start Date End Date Norma Kenny, STEVEN, C.N.P. PCP - General 09/12/[address] [place] [phone] documented as of this encounter
--- OUTSIDE RECORDS SUMMARY | 2022-01-25 11:36 | XMS_ITS | Encounter Summary ---
:1965 Author Organization [facility] Address [address] [place] [address] Care Team Providers Name Role Phone Norma Kenny APRN C.N.PNikhil Primary Care Provider [phone] Encounter Details Date Type Department Care Team Description 04/25/2021 Clinical Communication Department of Chase Philippe, Medicine in [facility] [place], [place] [address] [place] [phone] Social History Tobacco Use Types Packs/Day Years [...] or relatives? How often do you attend evangelical or presybeterian More than 4 time s per year 09/17/2018 services? Do you belong to any clubs or organizations No 09/17/2018 such as evangelical groups, unions, fraternal or athletic groups, or [...] at Date Recorded Male 03/25/2018 1:01 PM DAIRY HUSBANDMAN documented as of this encounter Miscellaneous Notes Telephone Encounter - Jeannette Bernardo L.P.N. - 05/01/2021 4:46 PM DAIRY HUSBANDMAN Pt seen in clinic today and Pantoprazole was addressed Y HUSBANDMAN Telephone Encounter - Jeannette Bernardo L.P.N. - 04/27/2021 3:48 PM DAIRY HUSBANDMAN Reminder to discuss pantoprazole during intake on 05/01 placed in the notes on schedule of 05/01 Y HUSBANDMAN Telephone Encounter - Norma Kenny APRN, C.N.P. - 04/27/2021 9:11 AM DAIRY HUSBANDMAN Can you ask pt about this during rooming med rec on Monday 05/01 when we see him? Not sure if and howmuch he is taking. Thanks, tk Y HUSBANDMAN Telephone Encounter - Marisela Chavez - 04/25/2021 4:38 AM CST Images from the original note were not included. The patient's health insurer has denied prior authorization for PANTOPRAZOLE SODIUM 20MG DR TABLETS. A quick view of the denial reason [...] Keyshawn HERMAN. Thank you, The OPPA Team Y HUSBANDMAN documented in this encounter Plan of Treatment Upcoming Encounters Date Type Specialty Care Team Description 02/15/2022 Office Visit Orthopedic Surgery RavincoMadyson haq, DNikhilONikhil [address] [place], [place] [phone] (Wo rk) documented as of this encounter Visit Diagnoses Not on filedocumented in this encounter Additional Health Concerns Assessment Noted Time PHQ-9 Depression Total Score: 4 03/02/2021 10:28 AM CS T documented as of this encounter Care Teams Framework Developer Relationship Specialty Start Date End Date Norma Kenny, MALTED MILK SUPERVISOR, C.N.P. PCP - General 09/12/[address] [place] [address] documented as of this encounter
--- OUTSIDE RECORDS SUMMARY | 2022-01-25 11:36 | XMS_ITS | Encounter Summary ---
:1965 Author Organization [facility] Address [address] [place] [address] Care Team Providers Name Role Phone Norma Kenny APRN C.N.P. Primary Care Provider [phone] Reason for Visit Reason Comments Med Refill Steroid Encounter Details Date Type Department Care Team Description 05/08/2021 Clinical Communication Department of Norma Kenny d Refill Family Medicine in STEVEN Salas, (Steroid) [place], C.N.P. 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 - 05/08/2021 9:33 AM INFANT CAREGIVER Patient saw Norma Kenny 05/01/21 and was prescribed Medrol DosePak. He completed this course and he feels like it did help a little bit but did not completely take it away. We discussed how that may not be possible to completely resolve the pain. We discussed that another course of steroids may not be indicated. He is going to take Ibuprofen and did this morning now that he is no longer on steroid.Hopefully this will help a little bit for him and he will see PMR Dr. Franco on 05/10. He can discuss with Dr. Franco the care plan going forward. Dr. Franco should be able to prescribe medications for him as needed/discussed at that time. Norma will be back 05/15 and he may see her for follow up if n eeded. NT CAREGIVER Telephone Encounter - July Eason - 05/08/2021 8:38 AM CST The patient wants to know if he can get a refill of the steroid pack Norma Kenny prescribed for him for his arthritis pain in his back. He can be reached at [phone]. Thank you. NT CAREGIVER documented in this encounter Plan of Treatment Upcoming Encounters Date Type Specialty Care Team Description 02/15/2022 Office Visit Orthopedic Surgery Madyson Rosa D.O. [address] [place], [place] [phone] (Wo rk) documented as of this encounter Visit Diagnoses Not on filedocumented in this encounter Additional Health Concerns Assessment Noted Time PHQ-9 Depression Total Score: 4 03/02/2021 10:28 AM CS T documented as of this encounter Care Teams Laser Beam Cutter Relationship Specialty Start Date End Date Norma Kenny APRN, C.N.P. PCP - General 09/12/[address] [facility] [place] [phone] documented as of this encounter
--- OUTSIDE RECORDS SUMMARY | 2022-01-25 11:36 | XMS_ITS | Encounter Summary ---
:1965 Author Organization [facility] Address [address] [place] [address] Care Team Providers Name Role Phone Norma Solis APRN, C.N.P. Primary Care Provider Reason for Visit Reason Comments Med Refill Encounter Details Date Type Department Care Team Description 03/13/2021 Refill Department of Family Medicine Caden Solis APRN, Med Refill in [facility] so C.N.P. [address] [place] [address] [place] [phone] (Wo rk) Social History Tobacco Use Types [...] How often do you attend hindu or mu-ism More than 4 time s [...] at Date Recorded Male 03/25/2018 1:01 PM TUBE COATER documented as of this encounter Miscellaneous Notes Telephone Encounter - Patrizia Moura APRN, C.N.P. - 03/27/2021 1:23 PM TUBE COATER Were you able to get a hold of the patient regarding his Zoloft dose? I will refill his lorazepam but he needs to be following up with Norma Solis for management as I do not want him on Lorazepam vermin exterminator. Thanks, SF COATER Telephone Encounter - Jeannette Bernardo L.P.N. - 03/27/2021 1:06 PM TUBE COATER Unable to refill per protocol: Name of Medications Needing Refill: Lorazepam Last Refill Date: Additional Information: Last / Future Appointment: Last OV 02/21/21 Future OV 04/01/2021 COATER Telephone Encounter - Jeannette Bernardo L.P.N. - 03/14/2021 4:36 PM TUBE COATER lmtcb COATER Telephone Encounter - Norma Solis APRN, C.N.P. - 03/13/2021 9:43 AM TUBE COATER Please call [facility] and see how he is doing - I received a refill request for the lorazepam - is he still taking this daily? Is he up to 100mg daily of sertraline now? Thanks, TK COATER Telephone Encounter - Francesco Morejon LNikhilP.N. - 03/13/2021 9:25 AM TUBE COATER Medication Name:LORazepam (ATIVAN) 1 mg tablet??( Take 1 tablet (1 mg total) by mouth 2 (two) times a day as needed for anxiety for up to 10 days Last Refill: Ordered on: 03/02/2021 Authorized by: NORMA SOLIS Dispense: 10 tablet Refills: 0 ordered Last Office Visit:03/02/2021 with norma Due for Office Visit: Future Office Visit:04/03/2019 with norma Last Blood Pressure: 125/81 Last Set of Labs:02/19/21 Last PHQ-9: PHQ9 Score 03/02/2021 PHQ-9 Total Score (max 27) 4 Last MELODY-7: 8 on 03/02/21 Pharmacy: [id number] [place], [place] COATER documented in this encounter Plan of Treatment Upcoming Encounters Date Type Specialty Care Team Description 02/15/2022 Office Visit Orthopedic Surgery Madyson Rosa il, D.O. [address] [place], [place] [phone] (Wo rk) documented as of this encounter Visit Diagnoses Diagnosis Anxiety documented in this encounter Additional Health Concerns Assessment Noted Time PHQ-9 Depression Total Score: 4 03/02/2021 10:28 AM CS T documented as of this encounter Care Teams Wire Welder Relationship Specialty Start Date End Date Norma Solis APRN, C.N.P. PCP - General 09/12/[address] [place] [address] documented as of this encounter
--- OUTSIDE RECORDS SUMMARY | 2022-01-25 11:36 | XMS_ITS | Encounter Summary ---
:1965 Author Organization [facility] Address [address] [place] [address] Care Team Providers Name Role Phone Norma Kenny APRN, C.N.P. Primary Care Provider [phone] Encounter Details Date Type Department Care Team Description 04/03/2021 Orders Only Pharmacy Prior Auth RO Norma Kenny, STEVEN C.N.P. [address] [place] [address] (Wo rk) Social History Tobacco Use Types [...] or relatives? How often do you attend judaism or oriental orthodox More than 4 time s per year 09/17/2018 services? 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 PCP - General 09/12/[address] [place] [address] documented as of this encounter
--- OUTSIDE RECORDS SUMMARY | 2022-01-25 11:36 | XMS_ITS | Encounter Summary ---
:1965 Author Organization [facility] Address [address] [place] [address] Care Team Providers Name Role Phone Norma Kenny APRN, C.N.P. Primary Care Provider [phone] Reason for Visit Reason Comments Med Refill Medication Question Encounter Details Date Type Department Care Team Description 04/03/2021 Refill Department of [facility] Norma Kenny Me d Refill; Medication Medicine in [place], STEVEN, C. N.P. Question [place] [address] [place] [address] [phone] Social History Tobacco Use Types Packs/Day Years [...] or relatives? How often do you attend temple or adventist More than 4 time s per year 09/17/2018 services? 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 - 04/10/2021 2:59 PM SHOT POLISHER AND INSPECTOR Yes I spoke with pharmacy. Kevin I did not complete the note. POLISHER AND INSPECTOR Telephone Encounter - Norma Kenny APRN C.N.P. - 04/10/2021 8:20 AM SHOT POLISHER AND INSPECTOR Yes 150mg daily. Thanks, TK POLISHER AND INSPECTOR Telephone Encounter - Jeannette Bernardo L.P.N. - 04/06/2021 4:21 PM SHOT POLISHER AND INSPECTOR Text sent to TK today to address issue with prescription as she is out of clinic this week. POLISHER AND INSPECTOR Addendum Note - Julia Mike R.N. - 04/06/2021 1:06 PM SHOT POLISHER AND INSPECTOR Addended by: JULIA MIKE on: 04/06/2021 01:06 PM Modules accepted: Orders POLISHER AND INSPECTOR Telephone Encounter - Julia Mike R.N. - 04/06/2021 1:04 PM SHOT POLISHER AND INSPECTOR Norma - There are two conflicting directions on the sig. Can you please provide clarification on thesertraline instructions? Is it to be 1.5 tab (150 mg daily)? POLISHER AND INSPECTOR Telephone Encounter - Tiarramartha Leanne Ruby - 04/06/2021 12:27 PM CST Britney from [facility], still waiting to hear back from Norma Mcguire Regarding Sertraline, and clarification on the directions. Please give Christina calderón a call. Thank you. POLISHER AND INSPECTOR Telephone Encounter - Mirlande Milian L.P.N. - 04/03/2021 3:43 PM CST Patient seen in clinic today. POLISHER AND INSPECTOR documented in this encounter Plan of Treatment Upcoming Encounters Date Type Specialty Care Team Description 02/15/2022 Office Visit Orthopedic Surgery RavinohMadyson haq il, D.O. [address] [place], [place] [phone] (Wo rk) documented as of this encounter Visit Diagnoses Diagnosis Nausea Anxiety documented in this encounter Additional Health Concerns Assessment Noted Time PHQ-9 Depression Total Score: 4 03/02/2021 10:28 AM CS T documented as of this encounter Care Teams Filament Wound Parts Fabricator Relationship Specialty Start Date End Date Norma Kenny, STEVEN, C.N.P. PCP - General 09/12/[address] [place] [address] documented as of this encounter
--- OUTSIDE RECORDS SUMMARY | 2022-01-25 11:36 | XMS_ITS | Encounter Summary ---
:1965 Author Organization [facility] Address [address] [place] [address] Care Team Providers Name Role Phone Norma Kenny APRN C.N.P. Primary Care Provider [phone] Reason for Referral Outpatient (Routine) - Closed Specialty Diagnoses / Referred By Contact Referred To Contact Procedures Physical Medicine and Diagnoses Radiculopathy Lumbar Patrizia Moura, [facility] Region Rehabilitation STEVEN, C.N.P. [address] [place] [address] Referral ID Status Reason Start Date Expiration Date Visits Requ ested Visits Authorized [id number] Closed 05/04/2021 05/04/2022 1 1 IC RELATIONS SPECIALIST Encounter Details Date Type Department Care Team Description 05/04/2021 Orders Only Department of [facility] Patrizia Moura, Radi culopathy Lumbar Medicine in [place], C.N.P. (Primary Dx) John Alarcon [address] [place] [phone] Social History Tobacco Use Types Packs/Day Years [...] or relatives? How often do you attend quaker or cheondoism More than 4 time s per year 09/17/2018 services? Do you belong to any clubs or organizations No 09/17/2018 such as quaker groups, unions, fraternal or athletic groups, or [...] at Date Recorded Male 03/25/2018 1:01 PM PUBLIC RELATIONS SPECIALIST documented as of this encounter Plan of Treatment Upcoming Encounters Date Type Specialty Care Team Description 02/15/2022 Office Visit Orthopedic Surgery RavinkyMadyson haq, D.ONikhil [address] [place], [place] [phone] (Wo rk) Scheduled Referrals Name Type Priority Associated Diagnoses Order S chedule Physical Medicine and Outpatient Routine Radiculopathy Lumba r Expected: Rehabilitation - Referral 05/04/2021 General consult (Approximate ), (clinic) Expires: 08/01/2022 documented as of this encounter Visit Diagnoses Diagnosis Radiculopathy Lumbar - Primary documented in this encounter Additional Health Concerns Assessment Noted Time PHQ-9 Depression Total Score: 4 03/02/2021 10:28 AM CS T documented as of this encounter Care Teams Irrigator Valve Pipe Relationship Specialty Start Date End Date Norma Kenny, AIRCRAFT LOG CLERK, C.N.P. PCP - General 09/12/[address] [place] [address] documented as of this encounter
--- OUTSIDE RECORDS SUMMARY | 2022-01-25 11:36 | XMS_ITS | Encounter Summary ---
:1965 Author Organization [facility] Address [address] [place] [address] Care Team Providers Name Role Phone Norma Kenny APRN, C.N.P. Primary Care Provider [phone] Reason for Visit Reason Comments Med Refill Encounter Details Date Type Department Care Team Description 05/17/2021 Refill [facility], Rio Canchola M.D. 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 PCP - General 09/12/[address] [place] [phone] documented as of this encounter
--- OUTSIDE RECORDS SUMMARY | 2022-01-25 11:36 | XMS_ITS | Encounter Summary ---
:1965 Author Organization [facility] Address [address] [place] [address] Care Team Providers Name Role Phone Norma Kenny APRN C.N.P. Primary Care Provider [phone] Reason for Visit MRI/CAT/PET Scan (Routine) - Closed Specialty Diagnoses / Procedures Referred By Contact Refer red To Contact Radiology Diagnoses Radiculopathy Lumbar Norma Kenny [facility] Region Procedures MR Lumbar Spine without IV Contrast [place] MRI LUMB SPINE WO [facility] [address] [place] [address] Referral ID Status Reason Start Date Expiration Date Visits Requ ested Visits Authorized [id number] Closed 05/01/2021 05/01/2022 1 1 Encounter Details Date Type Department Care Team Description 05/04/2021 Ancillary Procedure Department of Norma Kenny ulopathy Lumbar Radiology, Jacqueline Salas APRN [facility], in C[place], [place] [address] [place] [phone] Social History Tobacco Use Types Packs/Day Years [...] How often do you attend restoration or christianity More than 4 time s [...] at Date Recorded Male 03/25/2018 1:01 PM PT ESCORT documented as of this encounter Miscellaneous Notes Result Encounter Note - Patrizia Moura APRN, C.N.P. - 05/04/2021 5:13 PM PT ESCORT I called and answered patient's questions. He will schedule an appointment with PM and R. ESCORT Result Encounter Note - Patrizia Moura APRN, C.N.P. - 05/04/2021 1:38 PM PT ESCORT Hi Twin, Your MR does show moderate to severe arthritis in parts of your spine. I recommend continuing with the medrol dose pack given to you by Norma Kenny CNP. I also recommended following up with PM and Rto further evaluation and treatment of the low back pain. Order placed. Marycarmen, SF ESCORT documented in this encounter Plan of Treatment Upcoming Encounters Date Type Specialty Care Team Description 02/15/2022 Office Visit Orthopedic Surgery Madyson Rosa, Jarad.O. [address] [place], [place] [address] (Wo rk) documented as of this encounter Procedures Procedure Name Priority Date/Time Associated Diagnosis Comme nts MR LUMBAR SPINE RAD - Routine 05/04/2021 11:26 Radiculopathy Lumbar Results for this WITHOUT IV (most inpatients AM PT ESCORT procedure a re in CONTRAST and all the results outpatients) section. documented in this encounter Results MR Lumbar Spine without IV Contrast (05/04/2021 11:26 AM PT ESCORT) Anatomical Region Laterality Modality Lumbar Spine, Neuroradiology RST LOS, Neuroradiology N/A Magnetic Resonance ARZ LOS, Neuroradiology FLA LOS Specimen (Source) Anatomical Collection Method Collection Time Re ceived Time Location / / Volume Laterality 05/04/2021 11:30 AM PT ESCORT Impressions 05/04/2021 11:33 AM PT ESCORT Degenerative changes of the lumbar spine primarily in the posterior facets at L4-5 and L5-S1 Narrative 05/04/2021 11:33 AM PT ESCORT EXAM: ??MR LUMBAR SPINE WITHOUT IV CONTRAST COMPARISON: ??None FINDINGS: ?? T12-L1: Normal disc and posterior facets . No central canal or foraminal stenosis. L1-2: ??Normal disc and posterior facets . No central canal or foraminal stenosis. L2-3: ??Normal disc and posterior facets . No central canal or foraminal stenosis. L3-4: ??Normal disc and posterior facets . No central canal or foraminal stenosis. L4-5: ??Minimal diffuse bulging of the a nnulus. Moderate degenerative changes the posterior facets. No central canal or fo raminal stenosis. L5-S1: ??Minimal diffuse bulging of the annulus. Moderate to severe degenerative changes of the posterior facets. No cent ral canal or foraminal stenosis. Alignment: ??Normal Bone Marrow: ??Normal Conus: ??Normal termination Extra-spinal Findings: ??No significant incidental findings For the purpose of this report, 5 lumbar type vertebral bodies are assumed. Close radiographic correlation recommend ed prior to any spinal intervention or surgery. Procedure Note Romaine Westbrook M.D. - 05/04/2021Forma tting of this note might be different from the original. EXAM: MR LUMBAR SPINE WITHOUT IV CONTRAS T COMPARISON: None FINDINGS: T12-L1: Normal disc and posterior facets . No central canal or foraminal stenosis. L1-2: Normal disc and posterior facets. No central canal or foraminal stenosis. L2-3: Normal disc and posterior facets. No central canal or foraminal stenosis. L3-4: Normal disc and posterior facets. No central canal or foraminal stenosis. L4-5: Minimal diffuse bulging of the rosa maria ulus. Moderate degenerative changes the posterior facets. No central canal or fo raminal stenosis. L5-S1: Minimal diffuse bulging of the an nulus. Moderate to severe degenerative changes of the posterior facets. No cent ral canal or foraminal stenosis. Alignment: Normal Bone Marrow: Normal Conus: Normal termination Extra-spinal Findings: No significant in cidental findings For the purpose of this report, 5 lumbar type vertebral bodies are assumed. Close radiographic correlation recommend ed prior to any spinal intervention or surgery. IMPRESSION: Degenerative changes of the lumbar spine primarily in the posterior facets at L4-5 and L5-S1 Norma Kenny APRN, C.N.P. IMG MRI PROCEDURES documented in this encounter Visit Diagnoses Diagnosis Radiculopathy Lumbar documented in this encounter Additional Health Concerns Assessment Noted Time PHQ-9 Depression Total Score: 4 03/02/2021 10:28 AM CS T documented as of this encounter Care Teams Gender Studies Professor Relationship Specialty Start Date End Date Norma Kenny APRN, C.N.P. PCP - General 09/12/[address] [place] [address] documented as of this encounter
--- OUTSIDE RECORDS SUMMARY | 2022-01-25 11:36 | XMS_ITS | Encounter Summary ---
:1965 Author Organization [facility] Address [address] [place] [address] Care Team Providers Name Role Phone Norma Kenny APRN, C.N.P. Primary Care Provider [phone] Reason for Referral Appointment Request (Routine) - Closed Specialty Diagnoses / Procedures Referred By Contact Refer red To Contact Diagnoses Norma Lopez APRN, Procedures CBC without Differential C.N.P. [address] [place] [address] Referral ID Status Reason Start Date Expiration Date Visits Requ ested Visits Authorized [id number] Closed 04/05/2021 04/05/2022 1 1 N[employer] SYSTEMS INTEGRATION SPECIALIST Reason for Visit Appointment Request (Routine) - Closed Specialty Diagnoses / Procedures Referred By Contact Refer red To Contact Diagnoses Norma Lopez APRN, Procedures CBC without Differential C.N.P. [address] [place] [address] Referral ID Status Reason Start Date Expiration Date Visits Requ ested Visits Authorized [id number] Closed 04/05/2021 04/05/2022 1 1 Encounter Details Date Type Department Care Team Description 04/17/2021 Hospital Encounter Department of Laboratory Chase Kenny, Fatigue Medicine in [place], STEVEN, C. N.P. 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 atorvastatin (LIPITOR) 20 TAKE 1 TABLET(20 30 tablet 0 03/0105/01/2021 mg tabletIndications: MG) BY MOUTH AT Hyperlipidemia BEDTIME lisinopriL TAKE 1 TABLET(20 30 tablet 0 04/10/2021 05/17/19 22 (PRINIVIL,ZESTRIL) 20 mg MG) BY MOUTH DAILY tablet metoprolol succinate TAKE 1 TABLET(25 90 tablet 3 1 10/05/2021 (TOPROL-XL) 25 mg 24 hr MG) BY MOUTH DAILY tabletIndications: FOR BLOOD PRESSURE Palpitations ondansetron ODT Take 1 tablet (4 mg 20 tablet 0 04/03/2021 05/01/2021 (ZOFRAN-ODT) 4 mg total) by mouth disintegrating every 8 (eight) tabletIndications: Nausea hours as needed for nausea or vomiting. pantoprazole (PROTONIX) Take 1 tablet (20 60 tablet 1 04/1210/26/2021 20 mg EC tablet mg total) by mouth 2 (two) times a day. sertraline (ZOLOFT) 100 Take 1.5 tablets 135 tablet 0 202107/24/2021 mg tabletIndications: (150 mg total) by Anxiety mouth daily. documented as of this encounter Miscellaneous Notes Result Encounter Note - Norma Kenny APRN, C.N.P. - 04/20/2021 7:53 AM [employer]S INTEGRATION SPECIALIST See below. NICS SYSTEMS INTEGRATION SPECIALIST Result Encounter Note - Norma Kenny APRN, C.N.P. - 04/20/2021 7:52 AM [employer]S INTEGRATION SPECIALIST No he should hold off on Sudafed as well until I see him next. DEBRA Conroy [employer] SYSTEMS INTEGRATION SPECIALIST Result Encounter Note - Norma Kenny APRN, C.N.P. - 04/19/2021 7:43 AM [employer] INTEGRATION SPECIALIST Patient should hold ALL tylenol, aspirin, and alcohol until we see him again on 05/01 and recheck labs. Follow up sooner if any concerns. Norma Conroy NICS SYSTEMS INTEGRATION SPECIALIST Result Encounter Note - Norma Kenny APRN, C.N.P. - 04/17/2021 3:58 PM [employer]S INTEGRATION SPECIALIST Twin's platelets are low and his liver enzymes are elevated. Please ask him the following questions: How is he feeling? Is he having a lot of bruising or any bleeding? How much alcohol is he drinking? Is he taking a lot of ibuprofen, aspirin, tylenol? He will likely need to be seen for a visit to further investigate, discuss, work up. Hold off on 2ndpfizer vaccination until we know more. I see he is scheduled with me may 01. If he is drinking daily or taking a lot of OTC meds that I listed, please have him stop and let me know. We can have him see another provider within the next week if needed. Thanks, TK [employer] SYSTEMS INTEGRATION SPECIALIST documented in this encounter Plan of Treatment Upcoming Encounters Date Type Specialty Care Team Description 02/15/2022 Office Visit Orthopedic Surgery RavinksMadyson haq, D.O. [address] [place], [place] [phone] (Wo rk) documented as of this encounter Procedures Procedure Name Priority Date/Time Associated Comments Diagnosis CBC WITHOUT Routine 04/17/2021 10:06 Fatigue Results for this DIFFERENTIAL, B AM [employer] INTEGRATION SPECIALIST procedure ar e in the results section. THYROID-STIMULATING Routine 04/17/2021 10:06 Fatigue Resu lts for this HORMONE-SENSITIVE AM [employer] INTEGRATION SPECIALIST procedure are in (S-TSH) the results section. HEMOGLOBIN A1C, B Routine 04/17/2021 10:06 Fatigue Result s for this AM [employer] INTEGRATION SPECIALIST procedure are i n the results section. COMPREHENSIVE Routine 04/17/2021 10:06 Fatigue Results fo r this METABOLIC PANEL, S/P AM [employer] INTEGRATION SPECIALIST procedu re are in the results section. documented in this encounter Results S-TSH (Thyroid-Stimulating Hormone - Sensitive) (04/17/2021 10:06 AM [employer]ION[employer] SYSTEMS INTEGRATION SPECIALIST) P athologist Signature TSH, Sensitive 1.5 0.3 - 4.2 04/17/2021 NPR[facility] mIU/L 12:20 PM [employer]S INTEGRATION SPECIALIST Specimen Anatomical Collection Method Collection Time Receive d Time (Source) Location / / Volume Laterality Blood (Blood, 04/17/2021 10:06 04/17/2021 Venous) AM [employer] INTEGRATION SPECIALIST 11:36 AM [employer]S INTEGRATION SPECIALIST Caridad Adams APRN.N.P. LAB BLOOD ADD-ON Performing Organization Address City/State/ZIP Code Phon e Number [phone] [facility] [place] [address] Hemoglobin A1c (04/17/2021 10:06 AM [employer] SYSTEMS INTEGRATION SPECIALIST) athologist Signature Hemoglobin A1c, 5.4 4.2 - 5.6 04/17/2021 NPR[facility] B % 12:29 PM [employer] SYSTEMS INTEGRATION SPECIALIST Specimen Anatomical Collection Method Collection Time Receive d Time (Source) Location / / Volume Laterality Blood (Blood, 04/17/2021 10:06 04/17/2021 Venous) AM [employer] SYSTEMS INTEGRATION SPECIALIST 11:36 AM AVIONICS SYSTEMS INTEGRATION SPECIALIST Viridiana Adams APRNN.P. LAB BLOOD ADD-ON Performing Organization Address City/State/[facility] Code Phon e Number [place] [phone] [facility] [address] (ABNORMAL) Comprehensive Metabolic Panel (04/17/2021 10:06 AM AVION[employer] SYSTEMS INTEGRATION SPECIALIST) athologist Signature Potassium, P 3.8 3.6 - 5.2 04/17/2021 NPRG mmol/L 12:25 PM [employer]ION[employer] SYSTEMS INTEGRATION SPECIALIST Sodium, P 135 135 - 145 04/17/2021 NPRG mmol/L 12:25 PM [employer]S INTEGRATION SPECIALIST Chloride, P 93 (L) 98 - 107 04/17/2021 NPRG mmol/L 12:25 PM [employer]ION[employer]S INTEGRATION SPECIALIST Bicarbonate, P 27 22 - 29 04/17/2021 NPRG mmol/L 12:25 PM [employer]S INTEGRATION SPECIALIST Anion Gap, P 15 7 - 15 04/17/2021 NPRG 12:25 PM AVIONICS SYSTEMS INTEGRATION SPECIALIST BUN (Blood Urea 14 8 - 24 04/17/2021 NPRG Nitrogen), P mg/dL 12:25 PM [employer]ION[employer] SYSTEMS INTEGRATION SPECIALIST Creatinine 0.78 0.74 - 04/17/2021 NPRG 1.35 mg/dL 12:25 PM AVION[employer] SYSTEMS INTEGRATION SPECIALIST eGFR-Black/Afri >90 >=60 04/17/2021 NPRG can German mL/min/BSA 12:25 PM AVION[employer] SYSTEMS INTEGRATION SPECIALIST Comment: ----ADDITIONAL INFORMATION---- Estimated GFR calculated using the 2009 CKD_EPI creatinine equation. eGFR Non-Black/ >90 >=60 mL/min/BSA 04/17/2021 12:25 PM AVION[employer] SYSTEMS INTEGRATION SPECIALIST NPRG Comment: ----ADDITIONAL INFORMATION---- Estimated GFR calculated using the 2009 CKD_EPI creatinine equation. Calcium, Total, P 8.9 8.6 - 10.0 mg/dL 04/17/2021 12:2 5 PM NPRG [employer]S INTEGRATION SPECIALIST Glucose, P 121 70 - 140 mg/dL 04/17/2021 12:25 PM NPRG [employer]ION[employer]S INTEGRATION SPECIALIST Protein, Total, P 7.6 6.3 - 7.9 g/dL 04/17/2021 12:25 PM NPRG [employer]ION[employer]S INTEGRATION SPECIALIST Albumin, P 4.3 3.5 - 5.0 g/dL 04/17/2021 12:25 PM NPRG AVION[employer]S INTEGRATION SPECIALIST Aspartate Aminotransferase 265 (H) 8 - 48 U/L 04/17/2021 1 2:25 PM NPRG (AST), P [employer]S INTEGRATION SPECIALIST Alkaline Phosphatase, P 97 40 - 129 U/L 04/17/2021 12 :25 PM NPRG [employer]ION[employer] SYSTEMS INTEGRATION SPECIALIST Alanine Aminotransferase 150 (H) 7 - 55 U/L 04/17/2021 12: 25 PM NPRG (ALT), P [employer]ION[employer]S INTEGRATION SPECIALIST Bilirubin, Total, P 1.6 (H) <=1.2 mg/dL 04/17/2021 12:25 P M NPRG AVION[employer] SYSTEMS INTEGRATION SPECIALIST Specimen Anatomical Collection Method Collection Time Receive d Time (Source) Location / / Volume Laterality Blood (Blood, 04/17/2021 10:06 04/17/2021 Venous) AM [employer]ION[employer] SYSTEMS INTEGRATION SPECIALIST 11:36 AM AVIONICS SYSTEMS INTEGRATION SPECIALIST Norma Kenny APRN, C.N.P. LAB BLOOD ADD-ON Performing Organization Address City/State/ZIP Code Phon e Number [facility] [address] [place] [address] [place] [address] [place] [address] [facility] [address] (ABNORMAL) CBC without Differential (04/17/2021 10:06 AM AVIONICS SYSTEMS INTEGRATION SPECIALIST) [employer] gist Method Time Signature Hemoglobin 14.0 13.2 - 04/17/2021 NPRG 16.6 g/dL 1:41 PM AVION[employer] SYSTEMS INTEGRATION SPECIALIST Hematocrit 40.5 38.3 - 04/17/2021 NPRG 48.6 % 1:41 PM AVION[employer] SYSTEMS INTEGRATION SPECIALIST Erythrocytes 4.08 (L) 4.35 - 04/17/2021 NPRG 5.65 1:41 PM AVIONICS SYSTEMS INTEGRATION SPECIALIST x10(12)/L MCV 99.3 (H) 78.2 - 04/17/2021 NPRG 97.9 fL 1:41 PM AVION[employer] SYSTEMS INTEGRATION SPECIALIST RBC Distrib Width 12.6 11.8 - 04/17/2021 NPRG 14.5 % 1:41 PM AVION[employer] SYSTEMS INTEGRATION SPECIALIST Platelet Count 81 (L) 135 - 317 04/17/2021 NPRG x10(9)/L 1:41 PM AVION[employer] SYSTEMS INTEGRATION SPECIALIST Leukocytes 5.2 3.4 - 9.6 04/17/2021 NPRG x10(9)/L 1:41 PM AVION[employer] SYSTEMS INTEGRATION SPECIALIST Specimen Anatomical Collection Method Collection Time Receive d Time (Source) Location / / Volume Laterality Blood (Blood, 04/17/2021 10:06 04/17/2021 Venous) AM AVION[employer] SYSTEMS INTEGRATION SPECIALIST 11:36 AM AVIONICS SYSTEMS INTEGRATION SPECIALIST Norma Kenny APRN, C.N.P. LAB BLOOD ADD-ON Performing Organization Address City/State/ZIP Code Phon e Number [facility] [address] [place], [place] [address] [facility] [place] [address] [facility] [address] [place] documented in this encounter Visit Diagnoses Diagnosis Fatigue documented in this encounter Additional Health Concerns Assessment Noted Time PHQ-9 Depression Total Score: 4 03/02/2021 10:28 AM CS T documented as of this encounter Care Teams Jack Spinner Relationship Specialty Start Date End Date Norma Kenny APRN, C.N.P. PCP - General 09/12/[address] [place] [address] documented as of this encounter
--- OUTSIDE RECORDS SUMMARY | 2022-01-25 11:36 | XMS_ITS | Encounter Summary ---
:1965 Author Organization [facility] Address [address] [place] [address] Care Team Providers Name Role Phone Norma Kenny APRN, C.NGregg Primary Care Provider [phone] Reason for Referral Outpatient (Routine) - Closed Specialty Diagnoses / Procedures Referred By Contact Refer red To Contact Diagnoses Radiculopathy Lumbar Spondylosis Lumbar Without Myelopathy Melchor Westbrook D.O. [facility] Region Procedures FL Lumbar Spine Facet Injection Bilateral OR INJ FACET JT LUMB/SAC 1 LVL OR INJ FACET JT LUMB/SAC [address] [place] [phone] Referral ID Status Reason Start Date Expiration Date Visits Requ ested Visits Authorized [id number] Closed 05/09/2021 05/09/2022 1 1 TAIN PEN NIBS INSPECTOR Reason for Visit Outpatient (Routine) - Closed Specialty Diagnoses / Procedures Referred By Contact Refer red To Contact Diagnoses Radiculopathy Lumbar Spondylosis Lumbar Without Myelopathy Melchor Westbrook D.O. [facility] Region Procedures FL Lumbar Spine Facet Injection Bilateral OR INJ FACET JT LUMB/SAC 1 LVL OR INJ FACET JT LUMB/SAC [address] [place] [phone] Referral ID Status Reason Start Date Expiration Date Visits Requ ested Visits Authorized [id number] Closed 05/09/2021 05/09/2022 1 1 Encounter Details Date Type Department Care Team Description 05/28/2021 Hospital Encounter Department of Melchor Westbrook D.O. [address] [place] [phone] Radiculopathy Lumbar; Radiology, [place] Karina Griffin D.O. [address] [place] [phone] Spondylosis Lumbar Without Myelopathy [facility], [place], [place] [address] [place] [address] Social History Tobacco Use Types Packs/Day Years [...] or relatives? How often do you attend taoism or christianity More than 4 time s per year 09/17/2018 services? 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 atorvastatin (LIPITOR) 20 Take 1 tablet (20 90 tablet 3 03/202110/04/2021 mg tabletIndications: mg total) by Hyperlipidemia mouth at bedtime. NEEDS LABS BEFORE NEXT REFILL lisinopriL TAKE 1 TABLET(20 30 tablet 0 05/17/2021 06/19/19 22 (PRINIVIL,ZESTRIL) 20 mg MG) BY MOUTH tablet DAILY methylPREDNISolone (MEDROL Take as directed 21 tablet 0 03/202107/17/2021 DOSEPAK) 4 mg tablet on package. metoprolol succinate TAKE 1 TABLET(25 90 tablet 3 1 10/05/2021 (TOPROL-XL) 25 mg 24 hr MG) BY MOUTH tabletIndications: DAILY FOR BLOOD Palpitations PRESSURE pantoprazole (PROTONIX) 20 Take 1 tablet (20 60 tablet 1 10/26/2021 mg EC tablet mg total) by mouth 2 (two) times a day. sertraline (ZOLOFT) 100 mg Take 1.5 tablets 135 tablet 0 01/202207/24/2021 tabletIndications: Anxiety (150 mg total) by mouth daily. documented as of this encounter Procedure Notes Karina Griffin D.O. - 05/28/2021 2:30 PM CSTAssociated Order(s): FL Lumbar Spine Facet Injection Bilateral Pre-Procedure Diagnose(s): Radiculopathy Lumbar; Spondylosis Lumbar Without Myelopathy Post-Procedure Diagnose(s): Radiculopathy Lumbar; Spondylosis Lumbar Without Myelopathy FL Lumbar Spine Facet Injection Bilateral Date/Time: 05/28/2021 3:13 PM Performed by: Karina Griffin D.O. Authorized by: Melchor Westbrook D.O. PROCEDURE SUMMARY Indications: Spondylosis without myelopathy Pre-procedural pain: 6/10 Post-procedural pain: 4/10 Site: lumbar Lumbar: facet joint injection Facet joint: Right L4-L5, Right L5-S1, Left L4-L5 and Left L5-S1 Needle or RF cannula: Spinal Needle size: 20 G Needle length: 5 in Flow: periarticular Patient position: prone IMAGING Fluoroscopic image guidance used to localize target, identify at risk structures, and dynamically used to direct therapy to the target. Image(s) acquired and saved. INJECTED MEDICATIONS The injected medication(s) listed was divided equally between the identified injection location(s) 3 mL lidocaine 10 mg/mL (1 %) 10 mg dexAMETHasone 10 mg/mL 2 mL iohexoL 300 mg iodine/mL PROCEDURE DETAILS Facet joint - lumbar: After identifying the facet(s) fluoroscopically, a spinal needle was then advanced into each joint using fluoroscopic guidance. Proper needle positioning was confirmed using multiple fluoroscopic views. After negative aspiration, contrast was injected, showing intraarticular spread of contrast without any evidence of intravascular or intrathecal uptake. The injectate was then injected slowly and incrementally into each joint. Following the injection the needle was withdrawn flushed with lidocaine as it was fully extracted. The patient tolerated the procedure well and [...] method: local infiltration Local infiltrate type: lidocaine TAIN PEN NIBS INSPECTOR documented in this encounter Plan of Treatment Upcoming Encounters Date Type Specialty Care Team Description 02/15/2022 Office Visit Orthopedic Surgery Madyson Rosa D.ONikhil [address] [place], [place] [phone] (Wo rk) documented as of this encounter Procedures Procedure Name Priority Date/Time Associated Diagnosis Comme nts FL LUMBAR SPINE RAD - Routine 05/28/2021 3:05 Radiculopathy Juhi mbar Results for this FACET INJECTION (most inpatients PM FOUNTAIN PEN NIBS INSPECTOR Spondylosis Lumbar pr ocedure are in BILATERAL and all Without Myelopathy the resul ts outpatients) section. documented in this encounter Results FL LUMBAR SPINE FACET INJECTION BILATERAL (05/28/2021 3:05 PM FOUNTAIN PEN NIBS INSPECTOR) Specimen (Source) Anatomical Location Collection Method / Collectio n Time Received Time / Laterality Volume Narrative [address]IMES - 05/28/2021 3:13 PM FOUNTAIN PEN NIBS INSPECTOR Karina Griffin D.O. ? 05/28/2021 ??3:14 PM FL Lumbar Spine Facet Injection Bilatera l Date/Time: 05/28/2021 3:13 PM Performed by: Karina Griffin D.O. Authorized by: Melchor Westbrook D.O. PROCEDURE SUMMARY Indications: Spondylosis without myelopa thy Pre-procedural pain: 09/07 Post-procedural pain: 07/08 Site: lumbar Lumbar: facet joint injection Facet joint: Right L4-L5, Right L5-S1, L eft L4-L5 and Left L5-S1 Needle or RF cannula: Spinal Needle size: 20 G Needle length: 5 in Flow: periarticular Patient position: prone IMAGING Fluoroscopic image guidance used to loca lize target, identify at risk structures, and dynamically used to dire ct therapy to the target. Image(s) acquired and saved. INJECTED MEDICATIONS The injected medication(s) listed was di vided equally between the identified injection location(s) 3 mL lidocaine 10 mg/mL (1 %) 10 mg dexAMETHasone 10 mg/mL 2 mL iohexoL 300 mg iodine/mL PROCEDURE DETAILS ?? Facet joint - lumbar: After identifying the facet(s) fluoroscopically, a spinal needle was then advanced into eac h joint using fluoroscopic guidance. Proper needle positioning was confirmed using multiple fluoroscopic views. After negative aspir ation, contrast was injected, showing intraarticular spread of contras t without any evidence of intravascular or intrathecal uptake. The injectate was then injected slowly and incrementally into each joint . ??Following the injection the needle was withdrawn flushed with lidoca ine as it was fully extracted. The patient tolerated the procedure well and there were no apparent complications. After appropriate observa tion, the patient was dismissed in good condition [...] Address City/State/ZIP Code Phon e Number [phone] [facility] documented in this encounter Visit Diagnoses Diagnosis Radiculopathy Lumbar Spondylosis Lumbar Without Myelopathy documented in this encounter Administered Medications Inactive Administered Medications - up to 3 most recent administrations Medication Order MAR Action Action Date Dose Rate Site dexAMETHasone injection 10 mg Given 05/28/2021 3:13 PM FOUNTAIN PEN NIBS INSPECTOR 10 mg (DECADRON) 10 mg, injection, One-Time Injection, Starting on Fri05/28/21 at 1513, For 1 dose iohexoL 300 mg iodine/mL solution 2 mL Given 05/28/2021 3:13 PM FOUNTAIN PEN NIBS INSPECTOR 2 mL (OMNIPAQUE) 2 mL, injection, One-Time Injection, Starting on Fri05/28/21 at 1513, For 1 dose lidocaine 10 mg/mL (1 %) injection 3 mL Given 05/28/2021 3:13 PM FOUNTAIN PEN NIBS INSPECTOR 3 mL (XYLOCAINE) 3 mL, injection, One-Time Injection, Starting on Fri05/28/21 at 1513, For 1 dose documented in this encounter Additional Health Concerns Assessment Noted Time PHQ-9 Depression Total Score: 4 03/02/2021 10:28 AM CS T documented as of this encounter Care Teams Dean Of Admissions Relationship Specialty Start Date End Date Norma Kenny APRN, C.N.P. PCP - General 09/12/[address] [place] [phone] documented as of this encounter
--- OUTSIDE RECORDS SUMMARY | 2022-01-25 11:36 | XMS_ITS | Encounter Summary ---
:1965 Author Organization [facility] Address [address] [place] [address] Care Team Providers Name Role Phone Norma Kenny APRN, C.N.P. Primary Care Provider [phone] Encounter Details Date Type Department Care Team Description 04/25/2021 Orders Only Pharmacy Prior Auth RO Norma Kenny, STEVEN C.N.P. 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 PCP - General 09/12/[address] [place] [phone] documented as of this encounter
--- OUTSIDE RECORDS SUMMARY | 2022-01-25 11:36 | XMS_ITS | Encounter Summary ---
:1965 Author Organization [facility] Address [address] [place] [address] Care Team Providers Name Role Phone Norma Kenny APRN, C.N.P. Primary Care Provider [phone] Encounter Details Date Type Department Care Team Description 04/06/2021 Orders Only Pharmacy Prior Auth RO Norma Kenny, STEVEN C.N.P. 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 PCP - General 09/12/[address] [place] [phone] documented as of this encounter
--- OUTSIDE RECORDS SUMMARY | 2022-01-25 11:36 | XMS_ITS | Encounter Summary ---
:1965 Author Organization [facility] Address [address] [place] [address] Care Team Providers Name Role Phone Norma Kenny APRN, C.N.P. Primary Care Provider [phone] Reason for Visit Reason Comments Med Refill Encounter Details Date Type Department Care Team Description 04/08/2021 Refill [facility] [place] M.D. Med Refill 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 I have pended the medication for Norma to approve ING AND CANCELING MACHINE OPERATOR documented in this encounter Plan of Treatment Upcoming Encounters Date Type Specialty Care Team Description 02/15/2022 Office Visit Orthopedic Surgery Madyson Rosa il, D.ONikhil [address] [place], [place] [phone] (Wo rk) documented as of this encounter Visit Diagnoses Not on filedocumented in this encounter Additional Health Concerns Assessment Noted Time PHQ-9 Depression Total Score: 4 03/02/2021 10:28 AM CS T documented as of this encounter Care Teams Tissue Technician Relationship Specialty Start Date End Date Norma Kenny APRN, C.N.P. PCP - General 09/12/[address] [place] [phone] documented as of this encounter
--- OUTSIDE RECORDS SUMMARY | 2022-01-25 11:36 | XMS_ITS | Encounter Summary ---
:1965 Author Organization [facility] Address [address] [place] [address] Care Team Providers Name Role Phone Norma Kenny APRN, C.N.P. Primary Care Provider [phone] Reason for Referral MRI/CAT/PET Scan (Routine) - Closed Specialty Diagnoses / Procedures Referred By Contact Refer red To Contact Radiology Diagnoses Radiculopathy Lumbar Norma Kenny APRN, [facility] Region Procedures MR Lumbar Spine without IV Contrast [place] MRI LUMB SPINE WO CNTRST C.N.P. [address] [place] [address] Referral ID Status Reason Start Date Expiration Date Visits Requ ested Visits Authorized [id number] Closed 05/01/2021 05/01/2022 1 1 IT AND COLLECTIONS REPRESENTATIVE Reason for Visit Reason Comments Anxiety Back pain and hip pain Outpatient (Routine) - Closed Specialty Diagnoses / Procedures Referred By Contact Refer red To Contact Family Medicine Diagnoses Anxiety Norma Kenny APRN, [facility] Region C.N.P. [address] [place] [address] Referral ID Status Reason Start Date Expiration Date Visits Requ ested Visits Authorized [id number] Closed 04/03/2021 04/03/2022 1 1 Encounter Details Date Type Department Care Team Description 05/01/2021 Office Visit Department of Family Norma Kenny Liver Enzyme Test (Primary Dx); Medicine in [facility], STRIPPER [place]EX, C.N.P. Anxiety; [place], [place] [address] Radiculopathy Lumbar; [address] [place], [place] Thrombocytopenia (HCC); [place] [address] Hyperlipidemia [phone] Social History Tobacco Use Types Packs/Day Years [...] or relatives? How often do you attend yazidi or episcopalian More than 4 time s per year 09/17/2018 services? Do you belong to any clubs or organizations No 09/17/2018 such as yazidi groups, unions, fraternal or athletic groups, or [...] Date Recorded Male 03/25/2018 1:01 PM CREDIT AND COLLECTIONS REPRESENTATIVE documented as of this encounter Last Filed Vital Signs Vital Sign Reading Time Taken Comments Blood Pressure 120/81 05/01/2021 1:47 PM CREDIT AND COLLECTIONS REPRESENTATIVE Pulse 92 05/01/2021 1:47 PM CREDIT AND COLLECTIONS REPRESENTATIVE Temperature 36.5 ??C (97.7 ??F) 05/01/2021 1:47 PM CREDIT AND COLLECTIONS REPRESENTATIVE Respiratory Rate 20 05/01/2021 1:47 PM CREDIT AND COLLECTIONS REPRESENTATIVE Oxygen Saturation 98% 05/01/2021 1:47 PM CREDIT AND COLLECTIONS REPRESENTATIVE Inhaled Oxygen Concentration - - Weight 143 kg (314 lb 14.4 oz) 05/01/2021 1:47 PM CREDIT AND COLLECTIONS REPRESENTATIVE Height - - Body Mass Index 40.41 02/21/2021 12:52 PM CREDIT AND COLLECTIONS REPRESENTATIVE documented in this encounter Progress Notes Norma Kenny APRN, C.N.P. - 05/01/2021 1:45 PM CST SUBJECTIVE CHIEF COMPLAINT/REASON FOR VISIT Anxiety (Back pain and hip pain) HISTORY OF PRESENT ILLNESS Saad Murray is a 55 y.o. male who presents for follow up of his lab work, anxiety. Twin states since our phone call he has not been drinking any alcohol or taking any tylenol or ibuprofen. His nausea has completely resolved. He feels less anxious. He needs repeat labs today as his last set of labs showed thrombocytopenia and quite elevated liver enzyme tests. Overall he feels better, but he states his back/right side pain has been quite bothersome since he hasn't taken any OTC painkillers oralcohol this week. He states he needs to do something to improve this as quickly as possible. No newconcerns. REVIEW OF SYSTEMS As stated above. Otherwise [...] MEDICATIONS Current Outpatient Medications Medication Sig ??? LORazepam (ATIVAN) 1 mg tablet Take 1 tablet (1 mg total) by mouth at bedtime as needed for anxiety. ??? metoprolol succinate (TOPROL-XL) 25 mg 24 [...] (150 mg total) by mouth daily. ??? atorvastatin (LIPITOR) 20 mg tablet Take 1 tablet (20 mg total) by mouth at bedtime. NEEDS LABS BEFORE NEXT REFILL ??? lisinopriL (PRINIVIL,ZESTRIL) 20 mg tablet TAKE 1 TABLET(20 MG) BY MOUTH DAILY ??? methylPREDNISolone (MEDROL DOSEPAK) 4 mg tablet Take as directed on package. 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 Has no pets. Plans to move into [employer] farm this year after renovation and sell current home. OBJECTIVE VITAL SIGNS BP 120/81 Pulse 92 Temp 36.5 ??C Resp 20 Wt (!) 143 kg SpO2 98% BMI 40.41 kg/m?? PHYSICAL EXAMINATION General: Patient is alert, [...] lesion noted. Neurologic: No neurologic deficit noted. Results for orders placed or performed in visit on 05/01/21 Lipid Panel Result Value Ref Range Cholesterol, Total, P 172 mg/dL Triglycerides, Fasting, P 133 mg/dL Cholesterol, HDL, P 50 >=40 mg/dL Calculated LDL 95 mg/dL Non HDL Cholesterol 122 mg/dL Comprehensive Metabolic Panel Result Value Ref Range Potassium, P 4.4 3.6 - 5.2 mmol/L Sodium, P 138 135 - 145 mmol/L Chloride, P 102 98 - 107 mmol/L Bicarbonate, P 27 22 - 29 mmol/L Anion Gap, P 9 7 - 15 BUN (Blood Urea Nitrogen), P 20 8 - 24 mg/dL Creatinine, P 0.82 0.74 - 1.35 mg/dL eGFR-Black/ >90 >=60 mL/min/BSA eGFR Non-Black/ >90 >=60 mL/min/BSA Calcium, Total, P 10.2 (H) 8.6 - 10.0 mg/dL Glucose, P 114 70 - 140 mg/dL Protein, Total, P 7.6 6.3 - 7.9 g/dL Albumin, P 4.2 3.5 - 5.0 g/dL Aspartate Aminotransferase (AST), P 66 (H) 8 - 48 U/L Alkaline Phosphatase, P 96 40 - 129 U/L Alanine Aminotransferase (ALT), P 100 (H) 7 - 55 U/L Bilirubin, Total, P 0.4 <=1.2 mg/dL CBC with Differential, Blood Result Value Ref Range Hemoglobin 13.9 13.2 - 16.6 g/dL Hematocrit 41.2 38.3 - 48.6 % Erythrocytes 4.15 (L) 4.35 - 5.65 x10(12)/L MCV 99.3 (H) 78.2 - 97.9 fL RBC Distrib Width 12.7 11.8 - 14.5 % Platelet Count 379 (H) 135 - 317 x10(9)/L Leukocytes 9.0 3.4 - 9.6 x10(9)/L Neutrophils 6.43 1.56 - 6.45 x10(9)/L Lymphocytes 1.74 0.95 - 3.07 x10(9)/L Monocytes 0.66 0.26 - 0.81 x10(9)/L Eosinophils 0.10 0.03 - 0.48 x10(9)/L Basophils 0.03 0.01 - 0.08 x10(9)/L Morphology Evaluation Result Value Ref Range RBC Morphology Normal PLT Morphology Normal PLT Estimate Adequate Adequate ASSESSMENT / PLAN #1 Anxiety Much improved. Continue to monitor and continue Sertraline. - Family Medicine office visit (clinic) #2 Radiculopathy Lumbar We will proceed with Lumbar Spine MRI to further evaluate his back pain. He will likely need to start physical therapy and possibly see PMR specialty. I will send in a Medrol Dosepak for him to take for pain control, which should help his symptoms without affecting his liver enzymes. - MR Lumbar Spine without IV Contrast; Future; Expected date: 05/01/2021 #3 Elevated Liver Enzyme Test ALT, AST, Bilirubin much improved from check 2 weeks ago, normalizing. Continue to monitor. Refrain from alcohol, tylenol use. - Comprehensive Metabolic Panel; Future; Expected date: 05/01/2021 - Comprehensive Metabolic Panel #4 Thrombocytopenia (HCC) Resolved after elimination of NSAIDs, alcohol. Will continue to monitor. - CBC with Differential, Blood; Future; Expected date: 05/01/2021 - CBC with Differential, Blood #5 Hyperlipidemia Fasting labs today. - Lipid Panel; Future; Expected date: 05/01/2021 - Lipid Panel - Morphology Evaluation He has a cologuard he needs to complete. He also needs his second COVID-19 vaccination - he had his first one last month, and moderate to severe COVID in January, I advised we should wait until his liver enzymes normalize before giving second vaccine. We will recheck at next visit. Twin agrees. All questions answered. Norma Kenny APRN, C.N.P. IT AND COLLECTIONS REPRESENTATIVE documented in this encounter Miscellaneous Notes Result Encounter Note - Norma Kenny APRN, C.N.P. - 05/01/2021 7:21 PM CREDIT AND COLLECTIONS REPRESENTATIVE Please call Twin and let him know- his labs look A LOT better since stopping his ibuprofen/tylenol and alcohol. His platelets are back to normal, and his liver enzymes are much improved we can trial a medrol dosepak for his back pain, I will send this in, it is a 6 day pack that he takes. He can schedule his MRI and we will go from there. Do not use tylenol/ibuprofen yet as his liver enzymes are stillnormalizing and he shouldn't take the Nsaids with the steroid. Take the pantoprazole if needed for his stomach. Thanks, TK IT AND COLLECTIONS REPRESENTATIVE documented in this encounter Plan of Treatment Upcoming Encounters Date Type Specialty Care Team Description 02/15/2022 Office Visit [facility] [place] [address] [place], [place] [phone] (Wo rk) documented as of this encounter Procedures Procedure Name Priority Date/Time Associated Diagnosis Comme nts MORPHOLOGY EVALUATION Routine 05/01/2021 2:20 Res ults for this PM CREDIT AND COLLECTIONS REPRESENTATIVE procedure are i n the results section. LIPID PANEL, S Routine 05/01/2021 2:20 Hyperlipidemia Results for this PM CREDIT AND COLLECTIONS REPRESENTATIVE procedure are i n the results section. CBC WITH Routine 05/01/2021 2:20 Thrombocytopenia (HCC) Re sults for this DIFFERENTIAL, B PM CREDIT AND COLLECTIONS REPRESENTATIVE procedure ar e in the results section. COMPREHENSIVE Routine 05/01/2021 2:20 Elevated Liver Enzyme Re sults for this METABOLIC PANEL, S/P PM CREDIT AND COLLECTIONS REPRESENTATIVE Test procedu re are in the results section. documented in this encounter Results MR Lumbar Spine without IV Contrast (05/04/2021 11:26 AM CREDIT AND COLLECTIONS REPRESENTATIVE) Anatomical Region Laterality Modality Lumbar Spine, Neuroradiology RST LOS, Neuroradiology N/A Magnetic Resonance ARZ LOS, Neuroradiology FLA LOS Specimen (Source) Anatomical Collection Method Collection Time Re ceived Time Location / / Volume Laterality 05/04/2021 11:30 AM CREDIT AND COLLECTIONS REPRESENTATIVE Impressions 05/04/2021 11:33 AM CREDIT AND COLLECTIONS REPRESENTATIVE Degenerative changes of the lumbar spine primarily in the posterior facets at L4-5 and L5-S1 Narrative 05/04/2021 11:33 AM CREDIT AND COLLECTIONS REPRESENTATIVE EXAM: ??MR LUMBAR SPINE WITHOUT IV CONTRAST [...] Norma Kenny APRN, C.N.P. IMG MRI PROCEDURES Morphology Evaluation (05/01/2021 2:20 PM CREDIT AND COLLECTIONS REPRESENTATIVE) Analysis Performed At Patho logist Time Signature RBC Morphology Normal 05/01/2021 NPRG 4:26 PM CREDIT AND COLLECTIONS REPRESENTATIVE PLT Morphology Normal 05/01/2021 NPRG 4:26 PM CREDIT AND COLLECTIONS REPRESENTATIVE PLT Estimate Adequate Adequate 05/01/2021 NPRG 4:26 PM CREDIT AND COLLECTIONS REPRESENTATIVE Specimen Anatomical Collection Method Collection Time Receive d Time (Source) Location / / Volume Laterality Blood 05/01/2021 2:20 PM 3:41 CREDIT AND COLLECTIONS REPRESENTATIVE PM CREDIT AND COLLECTIONS REPRESENTATIVE Norma Kenny APRN, C.N.P. LAB BLOOD ADD-ON Performing Organization Address City/State/ZIP Code Phon e Number [facility]- [facility] [address] [place] [address] [place] [address] [address] [facility] Lipid Panel (05/01/2021 2:20 PM CREDIT AND COLLECTIONS REPRESENTATIVE) P athologist Signature Cholesterol, 172 mg/dL 05/01/2021 NPRG Total 4:09 PM CREDIT AND COLLECTIONS REPRESENTATIVE Comment: ----REFERENCE VALUE---- Desirable: < 200 Borderline high: 200 - 239 High: > or = 240 Triglycerides 133 mg/dL 05/01/2021 4:09 PM CREDIT AND COLLECTIONS REPRESENTATIVE NPR G Comment: ----REFERENCE VALUE---- Normal: <150 Borderline high: 150-199 High: 200-499 Very high: > or =500 Cholesterol, HDL 50 >=40 mg/dL 05/01/2021 4:09 PM CREDIT AND COLLECTIONS REPRESENTATIVE NPRG Calculated LDL 95 mg/dL 05/01/2021 4:09 PM CREDIT AND COLLECTIONS REPRESENTATIVE SCRIPT SUPERVISOR RG Comment: ----REFERENCE VALUE---- Desirable: <100 mg/dL Above Desirable: 100-129 mg/dL Borderline High: 130-159 mg/dL High: 160-189 mg/dL Very High: >=190 mg/dL Cholesterol, Non-HDL, Calculated 122 mg/dL 022 4:09 PM CREDIT AND COLLECTIONS REPRESENTATIVE NPRG Comment: ----REFERENCE VALUE---- Desirable: <130 Above Desirable: 130-159 Borderline high: 160-189 High: 190-219 Very high: > or =220 Specimen Anatomical Collection Method Collection Time Receive d Time (Source) Location / / Volume Laterality Blood (Blood, 05/01/2021 2:20 PM 05/01/19 3:41 Venous) CREDIT AND COLLECTIONS REPRESENTATIVE PM CREDIT AND COLLECTIONS REPRESENTATIVE Viridiana Adams APRNNGregg LAB BLOOD ADD-ON Performing Organization Address City/State/ZIP Code Phon e Number [facility]- [address] [place], [place] [address] [place] [address] [facility] [address] (ABNORMAL) Comprehensive Metabolic Panel (05/01/2021 2:20 PM CREDIT AND COLLECTIONS REPRESENTATIVE) P athologist Signature Potassium, P 4.4 3.6 - 5.2 05/01/2021 NPRG mmol/L 4:08 PM CREDIT AND COLLECTIONS REPRESENTATIVE Sodium, P 138 135 - 145 05/01/2021 NPRG mmol/L 4:08 PM CREDIT AND COLLECTIONS REPRESENTATIVE Chloride, P 102 98 - 107 05/01/2021 NPRG mmol/L 4:08 PM CREDIT AND COLLECTIONS REPRESENTATIVE Bicarbonate, P 27 22 - 29 05/01/2021 NPRG mmol/L 4:09 PM CREDIT AND COLLECTIONS REPRESENTATIVE Anion Gap, P 9 7 - 15 05/01/2021 NPRG 4:08 PM CREDIT AND COLLECTIONS REPRESENTATIVE BUN (Blood Urea 20 8 - 24 05/01/2021 NPRG Nitrogen), P mg/dL 4:09 PM CREDIT AND COLLECTIONS REPRESENTATIVE Creatinine 0.82 0.74 - 05/01/2021 NPRG 1.35 mg/dL 4:09 PM CREDIT AND COLLECTIONS REPRESENTATIVE eGFR-Black/Afric >90 >=60 05/01/2021 NPRG an [place] mL/min/BSA 4:09 PM CREDIT AND COLLECTIONS REPRESENTATIVE Comment: ----ADDITIONAL INFORMATION---- Estimated GFR calculated using the 2009 CKD_EPI creatinine equation. eGFR Non-Black/ >90 >=60 mL/min/BSA 05/01/2021 4:09 PM CREDIT AND COLLECTIONS REPRESENTATIVE NPRG Comment: ----ADDITIONAL INFORMATION---- Estimated GFR calculated using the 2009 CKD_EPI creatinine equation. Calcium, Total, P 10.2 (H) 8.6 - 10.0 mg/dL 05/01/2021 4:09 PM CREDIT AND COLLECTIONS REPRESENTATIVE NPRG Glucose, P 114 70 - 140 mg/dL 05/01/2021 4:09 PM CREDIT AND COLLECTIONS REPRESENTATIVE N PRG Protein, Total, P 7.6 6.3 - 7.9 g/dL 05/01/2021 4:09 P M CREDIT AND COLLECTIONS REPRESENTATIVE NPRG Albumin, P 4.2 3.5 - 5.0 g/dL 05/01/2021 4:09 PM CREDIT AND COLLECTIONS REPRESENTATIVE N PRG Aspartate Aminotransferase 66 (H) 8 - 48 U/L 05/01/2021 4 :09 PM CREDIT AND COLLECTIONS REPRESENTATIVE NPRG (AST), P Alkaline Phosphatase, P 96 40 - 129 U/L 05/01/2021 4: 09 PM CREDIT AND COLLECTIONS REPRESENTATIVE NPRG Alanine Aminotransferase 100 (H) 7 - 55 U/L 05/01/2021 4:0 9 PM CREDIT AND COLLECTIONS REPRESENTATIVE NPRG (ALT), P Bilirubin, Total, P 0.4 <=1.2 mg/dL 05/01/2021 4:09 PM CREDIT AND COLLECTIONS REPRESENTATIVE NPRG Specimen Anatomical Collection Method Collection Time Receive d Time (Source) Location / / Volume Laterality Blood (Blood, 05/01/2021 2:20 PM 05/01/19 3:41 Venous) CREDIT AND COLLECTIONS REPRESENTATIVE PM CREDIT AND COLLECTIONS REPRESENTATIVE Norma Kenny APRN, C.N.P. LAB BLOOD ADD-ON Performing Organization Address City/State/ZIP Code Phon e Number [facility]- [address] [place] [address] [place] [address] [place] [address] [address] [facility] (ABNORMAL) CBC with Differential, Blood (05/01/2021 2:20 PM CREDIT AND COLLECTIONS REPRESENTATIVE) [facility] gist Method Time Signature Hemoglobin 13.9 13.2 - 05/01/2021 NPRG 16.6 g/dL 4:26 PM CREDIT AND COLLECTIONS REPRESENTATIVE Hematocrit 41.2 38.3 - 05/01/2021 NPRG 48.6 % 4:26 PM CREDIT AND COLLECTIONS REPRESENTATIVE Erythrocytes 4.15 (L) 4.35 - 05/01/2021 NPRG 5.65 4:26 PM CREDIT AND COLLECTIONS REPRESENTATIVE x10(12)/L MCV 99.3 (H) 78.2 - 05/01/2021 NPRG 97.9 fL 4:26 PM CREDIT AND COLLECTIONS REPRESENTATIVE RBC Distrib Width 12.7 11.8 - 05/01/2021 NPRG 14.5 % 4:26 PM CREDIT AND COLLECTIONS REPRESENTATIVE Platelet Count 379 (H) 135 - 317 05/01/2021 NPRG x10(9)/L 4:26 PM CREDIT AND COLLECTIONS REPRESENTATIVE Leukocytes 9.0 3.4 - 9.6 05/01/2021 NPRG x10(9)/L 4:26 PM CREDIT AND COLLECTIONS REPRESENTATIVE Neutrophils 6.43 1.56 - 05/01/2021 NPRG 6.45 4:26 PM CREDIT AND COLLECTIONS REPRESENTATIVE x10(9)/L Lymphocytes 1.74 0.95 - 05/01/2021 NPRG 3.07 4:26 PM CREDIT AND COLLECTIONS REPRESENTATIVE x10(9)/L Monocytes 0.66 0.26 - 05/01/2021 NPRG 0.81 4:26 PM CREDIT AND COLLECTIONS REPRESENTATIVE x10(9)/L Eosinophils 0.10 0.03 - 05/01/2021 NPRG 0.48 4:26 PM CREDIT AND COLLECTIONS REPRESENTATIVE x10(9)/L Basophils 0.03 0.01 - 05/01/2021 NPRG 0.08 4:26 PM CREDIT AND COLLECTIONS REPRESENTATIVE x10(9)/L Specimen Anatomical Collection Method Collection Time Receive d Time (Source) Location / / Volume Laterality Blood (Blood, 05/01/2021 2:20 PM 05/01/19 22 3:41 Venous) CREDIT AND COLLECTIONS REPRESENTATIVE PM CREDIT AND COLLECTIONS REPRESENTATIVE Norma Kenny APRN, C.N.P. LAB BLOOD ADD-ON Performing Organization Address City/State/ZIP Code Phon e Number [facility]- [address] [place], [place] [address] [place] [address] [facility] [address] documented in this encounter Visit Diagnoses Diagnosis Elevated Liver Enzyme Test - Primary Anxiety Radiculopathy Lumbar Thrombocytopenia (HCC) Hyperlipidemia Radiculopathy Lumbar documented in this encounter Additional Health Concerns Assessment Noted Time PHQ-9 Depression Total Score: 4 03/02/2021 10:28 AM CS T documented as of this encounter Care Teams Tape Weaver Relationship Specialty Start Date End Date Norma Kenny APRN, C.N.P. PCP - General 09/12/[address] [place] [address] documented as of this encounter
--- OUTSIDE RECORDS SUMMARY | 2022-01-25 11:36 | XMS_ITS | Encounter Summary ---
:1965 Author Organization [facility] Address [address] [place] [address] Care Team Providers Name Role Phone Norma Kenny APRN, C.N.P. Primary Care Provider [phone] Reason for Visit Reason Comments Med Refill Encounter Details Date Type Department Care Team Description 03/27/2021 Refill Department of Family Medicine Efe Weller D.O. Med Refill in [facility] [address] [place] [phone] (Wo rk) Social History Tobacco Use Types [...] or relatives? How often do you attend christianity or zoroastrianism More than 4 time s per year 09/17/2018 services? Do you belong to any clubs or organizations No 09/17/2018 such as christianity groups, unions, fraternal or athletic groups, or [...] at Date Recorded Male 03/25/2018 1:01 PM BRIDGE IRONWORKER HELPER documented as of this encounter Miscellaneous Notes Telephone Encounter - Jeannette Bernardo L.P.N. - 04/03/2021 4:03 PM BRIDGE IRONWORKER HELPER Pt in clinic today. GE IRONWORKER HELPER Telephone Encounter - Jeannette Bernardo L.P.N. - 03/29/2021 1:07 PM BRIDGE IRONWORKER HELPER noted GE IRONWORKER HELPER Telephone Encounter - Norma Kenny APRN, C.N.P. - 03/28/2021 9:08 PM BRIDGE IRONWORKER HELPER [facility] Thanks, TK GE IRONWORKER HELPER Telephone Encounter - Jeannette Bernardo L.P.N. - 03/27/2021 3:11 PM BRIDGE IRONWORKER HELPER Unable to refill per protocol: Name of Medications Needing Refill: odansetron Last Refill Date: 03/12/21 Additional Information: Last / Future Appointment: [place] 03/02/2021 Future OV 04/03/2020 GE IRONWORKER HELPER documented in this encounter Plan of Treatment Upcoming Encounters Date Type Specialty Care Team Description 02/15/2022 Office Visit Orthopedic Surgery Madyson Rosa, D.O. [address] [place], [place] [phone] (Wo rk) documented as of this encounter Visit Diagnoses Diagnosis Nausea documented in this encounter Additional Health Concerns Assessment Noted Time PHQ-9 Depression Total Score: 4 03/02/2021 10:28 AM CS T documented as of this encounter Care Teams Nursing Aide Relationship Specialty Start Date End Date Norma Kenny, STEVEN, C.N.P. PCP - General 09/12/[address] [place] [phone] documented as of this encounter
--- OUTSIDE RECORDS SUMMARY | 2022-01-25 11:36 | XMS_ITS | Encounter Summary ---
:1965 Author Organization [facility] Address [address] [place] [address] Care Team Providers Name Role Phone Norma Kenny APRN CNikhilNNikhilPNikhil Primary Care Provider [phone] Reason for Referral Outpatient (Routine) - Closed Specialty Diagnoses / Procedures Referred By Contact Refer red To Contact Diagnoses Radiculopathy Lumbar Spondylosis Lumbar Without Myelopathy Melchor Westbrook D.O. [facility] Region Procedures FL Lumbar Spine Facet Injection Bilateral MT INJ FACET JT LUMB/SAC 1 LVL MT INJ FACET JT LUMB/SAC 2 LVL [address] [place] [address] Referral ID Status Reason Start Date Expiration Date Visits Requ ested Visits Authorized [id number] Closed 05/09/2021 05/09/2022 1 1 utpatient (Routine) - Closed Specialty Diagnoses / Referred By Contact Referred To Contact Procedures Physical Medicine and Melchor Westbrook [facility] D.O. [address] [place] [address] Referral ID Status Reason Start Date Expiration Date Visits Requ ested Visits Authorized [id number] Closed 05/09/2021 05/09/2022 1 1 Scheduling Instructions After injection utpatient (Routine) - Closed Specialty Diagnoses / Procedures Referred By Contact Refer red To Contact Diagnoses Gluteal Tendinitis Right Hip Gluteal Tendinitis Left Hip Melchor Westbrook D.O. [facility] Region Procedures PMR Peripheral injection/USGI (Procedure Only) [address] [place] [address] Referral ID Status Reason Start Date Expiration Date Visits Requ ested Visits Authorized [id number] Closed 05/09/2021 05/09/2022 1 1 S BLOCK INSTALLER Reason for Visit Reason Comments Back Pain Outpatient (Routine) - Closed Specialty Diagnoses / Referred By Contact Referred To Contact Procedures Physical Medicine and Diagnoses Radiculopathy Lumbar Patrizia Moura, [facility] Region Rehabilitation TECHNICIAN [employer], C.N.P. [address] [place] [address] Referral ID Status Reason Start Date Expiration Date Visits Requ ested Visits Authorized [id number] Closed 05/04/2021 05/04/2022 1 1 Encounter Details Date Type Department Care Team Description 05/09/2021 Comprehensive Visit Department of Physical Pietro, Gluteal Tendinitis Right Hip (Primary Dx); Medicine and Melchor South D.O. Radiculopathy Lumbar; Rehabilitation in [address] [place] [address] Gluteal Te ndinitis Left Hip; [facility] Spondylosis Lumbar Without Myelopathy [address] [place], [place] [address] [place], [place] [phone] (Work) [phone] Social History Tobacco Use Types Packs/Day Years [...] or relatives? How often do you attend synagogue or mosque More than 4 time s per year 09/17/2018 services? 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 - 05/09/2021 2:30 PM CSTAssociated Order(s): PMR Peripheral injection/USGI (Procedure Only): Bilat greater troch bursa Pre-Procedure Diagnose(s): Gluteal Tendinitis Right Hip; Gluteal Tendinitis Left Hip Post-Procedure Diagnose(s): Gluteal Tendinitis Right Hip; Gluteal Tendinitis Left Hip Referral Source: Patrizia Moura APRN C.* Pre-Procedure Diagnosis: bilateral lateral hip pain Post-Procedure Diagnosis: bilateral lateral hip pain Procedure: US-guided bilateral trochanteric bursa corticosteroid injection History of Present Illness: Mr. Murray is a pleasant 55 y.o. male with bilateral lateral hip painsecondary to greater trochanteric pain syndrome. He is here today for an ultrasound guided bilateraltrochanteric bursa corticosteroid injection for improved pain control. Medications and allergies were reviewed with the patient. No contraindications were identified. Using ultrasound, a pre-scan of the region was performed to identify the target structure. Procedure: Ultrasound/ Transducer: 1-6 MHz curvilinear Patient position: bilateral lateral decubitus with the bilateral lateral hip facing the ceiling. Localization process: With the transducer in an anatomic transverse plane over the greater trochanter, the trochanteric bursa was localized in a long axis view superficial to the gluteus medius tendon and deep to the gluteus angel muscle/ITB. Local anesthesia: Local anesthesia was obtained with 2 cc of 1% lidocaine. Needle: A 25 gauge, 2 inch needle was used for local anesthesia and a 22 gauge, 3.5 inch needle was used for the injectate. Approach: A posterior to anterior, in plane, approach was used to guide the needle tip into the trochanteric bursa. Injection/Aspiration: A mixture of 3 cc of 1% lidocaine and 1 cc of depo medrol (40mg/cc) was injected without complication. Good flow was observed within the bursa. Post-procedural care: The patient tolerated the procedure well. He reported good pain relief during the anesthetic phase. The patient was asked to ice for improved pain control and avoid submerging thearea in water for the next 48 hours to help reduce the risk of infection. The patient was instructedto call the office immediately if there are any questions or concerns. He will plan to follow up pending response to injection. Diagnosis: US-guided bilateral trochanteric bursa corticosteroid injection PATIENT EDUCATION: Education was discussed at today's appointment. A learning needs assessment was performed. Primary learner: Saad Murray Barriers to learning: None Preferred language: Ivorian Learning preferences include: Seeing and doing. Discussed: Diagnosis and treatment plan. Demonstrated: Understanding of material discussed. Patient education materials given: Post procedure after visit summary . Learner response: Learner demonstrated understanding. Hip site - Bilat greater troch bursa : injection only Date/Time: 05/09/2021 3:19 PM Performed by: Melchor Westbrook D.O. Authorized by: Melchor Westbrook D.O. PROCEDURE DETAILS Procedure Location hip Hip site: Bilat greater troch bursa Procedure performed: injection only Ultrasound image guidance used to localize target, identify at risk structures, and dynamically usedto direct therapy to the target. Image(s) acquired and saved. Procedural Medication The following medications were administered at the target site(s) On the right: Local anesthetic: 3 mL lidocaine 10 mg/mL (1 %) Corticosteroid: 40 mg methylPREDNISolone acetate 40 mg/mL On the left: Local anesthetic: 3 mL lidocaine 10 mg/mL (1 %) Corticosteroid: 40 mg methylPREDNISolone acetate 40 mg/mL CONSENT Consent obtained: written PRE-PROCEDURE DETAILS Procedure purpose: therapeutic SEDATION / ANESTHESIA Anesthesia method: local infiltration POST-PROCEDURE DETAILS Procedure completed successfully: yes Complications: no apparent complications Post-procedure instructions: avoid submersion of procedure site for 48 hours S BLOCK INSTALLER documented in this encounter Consult Notes Melchor Westbrook D.O. - 05/09/2021 2:30 PM CST SUBJECTIVE REFERRAL SOURCE Patrizia Moura APRN C.* CHIEF COMPLAINT/REASON FOR VISIT bilateral low back and hip pain HISTORY OF PRESENT ILLNESS Mr. Murray is a very pleasant 55 [...] deficits or any bowel or bladder changes. CURRENT MEDICATIONS Current Outpatient Medications: ??? atorvastatin (LIPITOR) 20 mg tablet, Take 1 tablet (20 mg total) by mouth at bedtime. NEEDS LABSBEFORE NEXT REFILL, Disp: 90 tablet, Rfl: 3 ??? lisinopriL (PRINIVIL,ZESTRIL) 20 mg tablet, TAKE 1 TABLET(20 MG) BY MOUTH DAILY, Disp: 30 tablet, Rfl: 0 ??? LORazepam (ATIVAN) 1 mg tablet, Take 1 tablet (1 mg total) by mouth at bedtime as needed for anxiety., Disp: 20 tablet, Rfl: 0 ??? metoprolol succinate (TOPROL-XL) 25 mg 24 hr tablet, TAKE 1 TABLET(25 MG) BY MOUTH DAILY FOR BLOOD PRESSURE, Disp: 90 tablet, Rfl: 3 ??? pantoprazole (PROTONIX) 20 mg EC tablet, Take 1 tablet (20 mg total) by mouth 2 (two) times a day. (Patient taking differently: Take 20 mg by mouth as needed.), Disp: 60 tablet, Rfl: 1 ??? sertraline (ZOLOFT) 100 mg tablet, Take 1.5 tablets (150 mg total) by mouth daily., Disp: 135 tablet, Rfl: 0 ??? methylPREDNISolone (MEDROL DOSEPAK) 4 mg tablet, Take as directed on package. (Patient not taking: Reported on 05/09/2021), Disp: 21 tablet, Rfl: 0 No current facility-administered medications for this visit. ALLERGIES/CONTRAINDICATIONS No Known Allergies MEDICAL HISTORY Past Medical History: Diagnosis Date ??? Gastroesophageal Reflux Disease ??? Hypercholesterolemia ??? Hypertension NOS ??? Hypokalemia 02/06/2021 ??? Hyponatremia 02/05/2021 ??? Pain Leg Bilateral 02/05/2021 SURGICAL HISTORY Past Surgical History: Procedure Laterality Date ??? REPAIR OF UMBILICAL HERNIA N/A 04/12/2016 Repair of umbilical hernia ??? VASECTOMY N/A 03/05/2005 Vasectomy SOCIAL HISTORY Social History Socioeconomic History ??? Marital status: Spouse name: Not on file ??? Number of children: 2 ??? Years of education: Not on file ??? 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 Smoking status: Former Smoker Packs/day: 0.00 Types: Cigarettes ??? Smokeless tobacco: Never Used ??? Tobacco comment: Quit in 20s.--occasional cigars Vaping Use ??? Vaping Use: never used Substance and Sexual Activity ??? Alcohol use: Yes Comment: Limits to weekends; Drinks beer or mixed drinks. ??? Drug use: No ??? Sexual activity: Not Currently Partners: Female control/protection: Vasectomy Other Topics Concern ??? Not on file Social History Narrative He is . He is currently not in any relationship since his of breast cancer 2-3 years ago. Lives with his son Aram who is a senior this year. Older daughter is in 3rd year 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 Has no pets. Plans to move into [employer] this year after renovation and sell current home. Social Determinants of Health Financial Resource Strain: Not on file Food Insecurity: Not on file Transportation Needs: Not on file Physical Activity: Not on file Stress: Not on file Social Connections: Not on file Intimate Partner Violence: Not on file Housing Stability: Not on file FAMILY HISTORY Family History Problem Relation Age [...] Neg Hx ??? Prostate cancer Neg Hx REVIEW OF SYSTEMS Except for those mentioned in the history of present illness, and below, a complete review of systems is negative. All other systems reviewed and are negative. OBJECTIVE VITAL SIGNS Vitals: 05/09/21 1411 BP: (!) 156/100 Pulse: 87 Temp: 36 ??C PHYSICAL EXAMINATION General: Awake, alert, and oriented, no apparent distress, pleasant, and cooperative Psych: Mood is euthymic, affect is congruent Ear, Nose, Throat: Normocephalic, atraumatic, moist membranes, anicteric sclerae Lung: Nonlabored breathing Heart: No clubbing or cyanosis Skin: No increased erythema, warmth, rashes, or concerning skin lesions Neuro: Strength is grossly 5 out of 5 throughout the bilateral lower extremities. Reflexes are intact and symmetric bilaterally. Sensation is intact to light touch throughout. Plantar responses are downgoing bilaterally. 1-2 beats of ankle clonus at the ankles bilaterally. Straight leg raise and seated slump test negative bilaterally. Gait: Antalgic gait favoring The right leg. Can heel and toe walk without difficulty. No myelopathicfeatures. Spine: Lumbar spine range of motion is full in flexion with minor pain over the low back and into the lateral hip. Lumbar extension 5?? with reproduction of axial low back pain. Tenderness to palpationat the level of PSIS in the lumbar paraspinals just superior to this. There is exquisite tenderness over the right greater than left greater trochanter and robert trochanteric soft tissue. No tenderness to palpation over the midline or spinous processes. Facet loading maneuvers are positive bilaterally for ipsilateral low back pain Musculoskeletal: Bilateral hip range of motion is full and pain-free. Narda's is negative bilaterally. Stinchfield is negative bilaterally. Side-lying hip abduction is 4/5 with hip slightly flexed withvery mild pain, 3+ out of 5 with hip slightly extended with more significant pain over the greater trochanter. IMAGING STUDIES: X-Ray of the hip, dated 04/30/2018, reveals no significant degenerative change of the bilateral hip,or SI joints. There is calcifications at the insertion of the gluteal tendon at the greater trochanter on the left. MRI of the lumbar spine, dated 05/04/2021, revealed degenerative change of the lumbar facets most advanced at L4-5 and L5-S1. There is degenerative disc disease, with mild foraminal narrowing at L4-5 but otherwise no significant central or foraminal stenosis noted. I personally reviewed these images and agree with the radiology report and shared the findings with the patient. ASSESSMENT / PLAN IMPRESSION: #1 Axial low back pain most likely secondary to lumbar facet arthropathy at L4-5 and L5-S1 #2 Posterolateral hip pain likely secondary to gluteal tendinopathy in the setting gluteal weakness likely progressed during period of prolonged illness #3 Obesity, BMI over 40 PLAN: The following was discussed with the patient: Mr. Murray is a very pleasant 55 y.o. male who presents with a chief complaint of bilateral low back and hip pain. His history and physical exam seem most consistent with lumbar facet arthropathy isthe primary component of his low back pain. There is a possibility that SI joint dysfunction is contributing though more of his symptoms focalized to the lumbar spine SI provocation does not produces symptoms as much as facet provocation. The lateral hip pain is most likely secondary to gluteal tendinopathy in greater trochanteric pain syndrome. We discussed potential options today including the benefits of physical therapy and he is interested in this but is concerned about his severity of pain at this time. I do believe it would be reasonable to work on improving his pain to allow better participation in therapy. We discussed greater trochanteric bursa corticosteroid injections which he was interested and was completed today. Please see procedure note for further details. Regarding the lumbar spine we discussed facet joint corticosteroid and radiofrequency ablation pathway and he is more interested in facet joint corticosteroid. I will place the request to have this done through his insuranceand we will schedule moving forward. I would plan to see him back after these injections, at least 2-4 weeks after the facet procedure to determine the effect and progression to physical therapy. The patient was counseled to remain active, but avoid activities that worsen symptoms. The patient was in agreement with this plan. All questions were answered to the best of my ability. Thank you for allowing me to take part in the care of this patient. S BLOCK INSTALLER documented in this encounter Plan of Treatment Upcoming Encounters Date Type Specialty Care Team Description 02/15/2022 Office Visit Orthopedic Surgery Madyson Rosa D.O. [address] [place] [address] [phone] (Wo rk) Scheduled Referrals Name Type Priority Associated Order Schedule Diagnoses Physical Medicine and Outpatient Referral Routine Expected: Rehabilitation office 2021 visit (clinic) (Approximate) , Expires: 08/06/2022 documented as of this encounter Procedures Procedure Name Priority Date/Time Associated Diagnosis Comme nts MT ARTHCS ASP/INJ Routine 05/09/2021 3:19 PM Gluteal Tendiniti s Results for this [facility] JT W US GLASS BLOCK INSTALLER Right Hip procedure are in Gluteal Tendinitis the resul ts Left Hip section. documented in this encounter Results FL LUMBAR SPINE FACET INJECTION BILATERAL (05/28/2021 3:05 PM GLASS BLOCK INSTALLER) Specimen (Source) Anatomical Location Collection Method / Collectio n Time Received Time / Laterality Volume Narrative 9000 LOS SWMN - 05/28/2021 3:13 PM GLASS BLOCK INSTALLER Karina Griffin D.O. ? 05/28/2021 ??3:14 PM FL Lumbar Spine Facet Injection Bilatera l Date/Time: 05/28/2021 3:13 PM Performed by: Karina Griffin D.O. Authorized by: Melchor Westbrook D.O. PROCEDURE SUMMARY Indications: Spondylosis without myelopa thy Pre-procedural pain: 610 Post-procedural pain: 10 Site: lumbar Lumbar: facet joint injection Facet [...] local infiltration Local infiltrate type: lidocaine Melchor Westbrook D.O. IMG FLUOROSCOPY PROCEDURES Performing Organization Address City/State/ZIP Code Phon e Number 9000 LOS SWMN MT ARTHCS ASP/INJ [facility] JT W (05/09/2021 3:19 PM GLASS BLOCK INSTALLER) Specimen (Source) Anatomical Location Collection Method / Collectio n Time Received Time / Laterality Volume Narrative MMODAL - 05/09/2021 3:19 PM GLASS BLOCK INSTALLER Melchor Westbrook D.O. ? 05/09/2021 ??3:19 PM Hip site - Bilat greater troch bursa : i njection only Date/Time: 05/09/2021 3:19 PM Performed by: Melchor Westbrook D.O. Authorized by: Melchor Westbrook D.O. PROCEDURE DETAILS Procedure Location hip Hip site: Bilat greater troch bursa Procedure performed: injection only Ultrasound image guidance used to locali ze target, identify at risk structures, and dynamically used to dire ct therapy to the target. Image(s) acquired and saved. Procedural Medication The following medications were administe red at the target site(s) On the right: Local anesthetic: 3 mL lidocaine 10 mg/m L (1 %) Corticosteroid: 40 mg methylPREDNISolone acetate 40 mg/mL On the left: Local anesthetic: 3 mL lidocaine 10 mg/m L (1 %) Corticosteroid: 40 mg methylPREDNISolone acetate 40 mg/mL CONSENT Consent obtained: written PRE-PROCEDURE DETAILS Procedure purpose: therapeutic SEDATION / ANESTHESIA Anesthesia method: local infiltration POST-PROCEDURE DETAILS Procedure completed successfully: yes Complications: no apparent complications ?? Post-procedure instructions: avoid subme rsion of procedure site for 48 hours Melchor Westbrook D.O. PROCEDURE/MINOR SURGICAL ORD ERABLES Performing Organization Address City/State/ZIP Code Phon e Number MMODAL MMODAL NA documented in this encounter Visit Diagnoses Diagnosis Gluteal Tendinitis Right Hip - Primary Radiculopathy Lumbar Gluteal Tendinitis Left Hip Spondylosis Lumbar Without Myelopathy Radiculopathy Lumbar Spondylosis Lumbar Without Myelopathy documented in this encounter Administered Medications Inactive Administered Medications - up to 3 most recent administrations Medication Order MAR Action Action Date Dose Rate Site lidocaine 10 mg/mL (1 %) injection 3 Given 05/09/2021 3:19 PM CS T 3 mL mL (XYLOCAINE) 3 mL, infiltration, One-Time Injection, Starting on Fri05/09/21 at 1519, For 1 dose lidocaine 10 mg/mL (1 %) injection 3 mL Given 05/09/2021 3:19 PM GLASS BLOCK INSTALLER 3 mL (XYLOCAINE) 3 mL, infiltration, One-Time Injection, Starting on Fri05/09/21 at 1519, For 1 dose methylPREDNISolone acetate injection 40 mg Given 05/09/2021 3:19 PM GLASS BLOCK INSTALLER 40 mg (DEPO-Medrol) 40 mg, intra-articular, One-Time Injection, Starting on Fri05/09/21 at 1519, For 1 dose methylPREDNISolone acetate injection 40 mg Given 05/09/2021 3:19 PM GLASS BLOCK INSTALLER 40 mg (DEPO-Medrol) 40 mg, intra-articular, One-Time Injection, Starting on Fri05/09/21 at 1519, For 1 dose documented in this encounter Additional Health Concerns Assessment Noted Time PHQ-9 Depression Total Score: 4 03/02/2021 10:28 AM CS T documented as of this encounter Care Teams Site Medical Director Relationship Specialty Start Date End Date Norma Kenny, STEVEN, C.N.P. PCP - General 09/12/[address] [place] [address] documented as of this encounter
--- OUTSIDE RECORDS SUMMARY | 2022-01-25 11:37 | XMS_ITS | Encounter Summary ---
:1965 Author Organization [facility] Address [address] [place] [address] Care Team Providers Name Role Phone Norma Kenny APRN, C.N.PNikhil Primary Care Provider [phone] Reason for Visit Reason Comments Fatigue Encounter Details Date Type Department Care Team Description 01/24/2021 Nurse Triage Department of [facility] Samantha Sibley Fat igue [facility] in [place], M.S.N., R.N. 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 - 01/24/2021 5:14 PM CDT Chief Complaint / Reason for Call Patient is a 55 y.o. male calling regarding Fatigue. Assessment Concern: Patient reports had every COVID symptom. 6 weeks ago. He was not tested or seen. He is fatigued, legs feel weak. Present for: 6 weeks Home cares tried: Nothing Calling to request: An appointment The recommended disposition is See a health care provider within 4 hours. Patient was warm transferred to [facility] at the clinic for further assistance. Verma dropped prior to connection. Did attempt to reconnect with patient, He could not hear clinic or this RN. Clinic took number and will call patient back. Reason for Disposition ??? [1] MODERATE weakness (i.e., interferes with work, school, normal activities) AND [2] cause unknown (Exceptions: weakness with acute minor illness, or weakness from poor fluid intake) Protocols used: WEAKNESS (GENERALIZED) AND [id number]-MS Care Advice Patient/Caregiver understands and will follow care advice?: Yes, able to teach back SEE HCP WITHIN 4 HOURS (OR PCP TRIAGE): * IF OFFICE WILL BE OPEN: You need to be seen within the next 3 or 4 hours. Call your doctor (or FORMAT PROOFREADER/PA) now or as soon as the office opens. * IF OFFICE WILL BE CLOSED AND NO PCP (PRIMARY CARE PROVIDER) SECOND-LEVEL TRIAGE: You need to be seen within the next 3 or 4 hours. A nearby Urgent Care Center (UCC) is often a good source of care. Another choice is to go to the ED. Go sooner if you become worse. * IF OFFICE WILL BE CLOSED AND PCP SECOND-LEVEL TRIAGE REQUIRED: You may need to be seen. Your doctor (or FORMAT PROOFREADER/PA) will want to talk with you to decide what's best. I'll page the on-call provider now. Ifyou haven't heard from the provider (or me) within 30 minutes, call again. NOTE: If on-call providercan't be reached, send to UCC or ED. NOTE TO TRIAGER: * Use nurse judgment to select the most appropriate source of care. * Consider both the urgency of the patient's symptoms AND what resources may be needed to evaluate and manage the patient. SOURCES OF CARE: * ED: Patients who may need surgery or hospital admission need to be sent to an ED. So do most patients with serious symptoms or complex medical problems. * UCC: Some UCCs can manage patients who are stable and have less serious symptoms (e.g., minor illnesses and injuries). The triager must know the UCC capabilities before sending a patient there. If unsure, call ahead. * OFFICE: If patient sounds stable and not seriously ill, consult PCP (or follow your office policy)to see if patient can be seen NOW in office. CALL BACK IF: * You become worse. documented in this encounter Plan of Treatment Upcoming Encounters Date Type Specialty Care Team Description 02/15/2022 Office Visit Orthopedic Surgery Madyson Rosa, D.ONikhil [address] [place], [place] [phone] (Wo rk) documented as of this encounter Visit Diagnoses Not on filedocumented in this encounter Additional Health Concerns Assessment Noted Time PHQ-9 Depression Total Score: 2 09/17/2018 9:08 AM CDT documented as of this encounter Care Teams Supervisor Endless Track Vehicle Relationship Specialty Start Date End Date Norma Kenny APRN, C.N.P. PCP - General 09/12/[address] [place] [address] documented as of this encounter
--- OUTSIDE RECORDS SUMMARY | 2022-01-25 11:37 | XMS_ITS | Encounter Summary ---
:1965 Author Organization [facility] Address [address] [place] [address] Care Team Providers Name Role Phone Norma Kenny APRN C.N.P. Primary Care Provider [phone] Reason for Visit Reason Comments Med Refill Lisinopril/HCTZ Encounter Details Date Type Department Care Team Description 12/04/2020 Refill Department of Norma Philippe Me d Refill Medicine in [place], STEVEN, C. N.P. (Lisinopril/HCTZ) [place] [address] [place] [phone] [phone] Social History Tobacco Use Types Packs/Day Years [...] or relatives? How often do you attend shinto or druze More than 4 time s per year 09/17/2018 services? 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 - 12/05/2020 8:30 AM CDT Medication refill Lisinopril/HCTZ Last filled 11/30/20 Last OV 01/18/20 Last Labs 05/21/19 Future appointment None scheduled documented in this encounter Plan of Treatment Upcoming Encounters Date Type Specialty Care Team Description 02/15/2022 Office Visit Orthopedic Surgery Madyson Rosa il, D.O. [address] [place], [place] [phone] (Wo rk) documented as of this encounter Visit Diagnoses Diagnosis Hypertension Essential Primary documented in this encounter Additional Health Concerns Assessment Noted Time PHQ-9 Depression Total Score: 2 09/17/2018 9:08 AM CDT documented as of this encounter Care Teams Shop Tailor Relationship Specialty Start Date End Date Norma Kenny, CHEMICAL ENGINEERING TECHNOLOGIST, C.N.P. PCP - General 09/12/[address] [place] [address] documented as of this encounter
--- OUTSIDE RECORDS SUMMARY | 2022-01-25 11:37 | XMS_ITS | Encounter Summary ---
:1965 Author Organization [facility] Address [address] [place] [address] Care Team Providers Name Role Phone Norma Kenny APRN C.N.P. 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 - 02/08/2021 12:25 PM CST Left message on home phone to call back SUBJECTIVE REASON FOR CALL Post-Hospital follow-up phone call with patient. Admission Date: 02/05/21 Discharge Date: 02/07/21 Discharge Diagnosis: PRINCIPAL DIAGNOSIS Hyponatremia E KEEPER Telephone Encounter - Violeta Leonard R.N. - 02/08/2021 12:22 PM CST 1st Attempt -- Unable to leave message as mailbox is Full SUBJECTIVE REASON FOR CALL Post-Hospital follow-up phone call with patient. Admission Date: 02/05/21 Discharge Date: 02/07/21 Discharge Diagnosis: PRINCIPAL DIAGNOSIS Hyponatremia E KEEPER documented in this encounter Plan of Treatment Upcoming Encounters Date Type Specialty Care Team Description 02/15/2022 Office Visit Orthopedic Surgery Madyson Rosa, D.ONikhil [address] [place], [place] [phone] (Wo rk) documented as of this encounter Visit Diagnoses Not on filedocumented in this encounter Additional Health Concerns Assessment Noted Time PHQ-9 Depression Total Score: 2 09/17/2018 9:08 AM CDT documented as of this encounter Care Teams Manager Operations And Procurement Relationship Specialty Start Date End Date Norma Kenny APRN, C.N.P. PCP - General 09/12/[address] [place] [address] documented as of this encounter
--- OUTSIDE RECORDS SUMMARY | 2022-01-25 11:37 | XMS_ITS | Encounter Summary ---
:1965 Author Organization [facility] Address [address] [place] [address] Care Team Providers Name Role Phone Norma Kenny APRN, C.N.P. Primary Care Provider [phone] Reason for Visit Reason Comments Med Refill today if possible Encounter Details Date Type Department Care Team Description 02/16/2021 Refill Department of [facility] Norma Kenny Me d Refill (today if Medicine in [place], STEVEN, C. N.P. possible ) [place] [address] [place] [phone] [phone] Social History Tobacco Use Types Packs/Day Years [...] or relatives? How often do you attend jewish or episcopalian More than 4 time s per year 09/17/2018 services? 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 - 02/16/2021 11:19 AM CONTROLLER COAL OR ORE Unable to refill per protocol: Name of Medications Needing Refill: Atorvastatin Last Refill Date: ? Additional Information: Last / Future Appointment: Last OV 01/25/21 Tamar No future OV scheduled. ROLLER COAL OR ORE Telephone Encounter - Noelle Collins - 02/16/2021 11:13 AM CST Please do not reply to sender,emails are not monitored. Thank you. If you need a prescription refill please call your pharmacy. Please allow 3 business days for processing. Expert RN: N/A (Med Refill Only) Call Center Template: ??? May we leave a message for you on this phone? yes What can I help you with today? Patient called about needing a refill on his Atorvastatin 20 mg is out says pharmacy says their are no refill on this please call if any questions or when sent to the pharmacy thank you ??? If Medication Refill: o What is the name and strength of the medication? o What do you use the medication for? o How many pills do you have left? o What pharmacy do you use (include location)? [facility] documented in this encounter Plan of Treatment Upcoming Encounters Date Type Specialty Care Team Description 02/15/2022 Office Visit Orthopedic Surgery Madyson Rosa, D.O. [address] [place], [place] [phone] (Wo rk) documented as of this encounter Visit Diagnoses Diagnosis Hyperlipidemia documented in this encounter Additional Health Concerns Assessment Noted Time PHQ-9 Depression Total Score: 2 09/17/2018 9:08 AM CDT documented as of this encounter Care Teams Customs Investigator Relationship Specialty Start Date End Date Norma Kenny APRN, C.N.P. PCP - General 09/12/[address] [facility] [place] [phone] documented as of this encounter
--- OUTSIDE RECORDS SUMMARY | 2022-01-25 11:37 | XMS_ITS | Encounter Summary ---
:1965 Author Organization [facility] Address [address] [place] [address] Care Team Providers Name Role Phone Norma Kenny APRN C.N.P. Primary Care Provider [phone] Reason for Referral MRI/CAT/PET Scan (Routine) - Pending Review Specialty Diagnoses / Procedures Referred By Contact Refer red To Contact Radiology Diagnoses Pain Low Back Unspecified Pain Back Thoracic Weakness Leg Patrizia Moura APRN, [facility] Region Procedures MR Thoracic Spine without IV Contrast C.N.P. [address] [place] [address] Referral ID Status Reason Start Date Expiration Date Visits V isits Requested Authorized [id number] Pending 02/21/2021 02/21/2022 1 1 Review TING SUPERVISOR Outpatient (Routine) - Authorized Specialty Diagnoses / Procedures Referred By Contact Refer red To Contact Family Medicine Diagnoses Anxiety Patrizia Moura APRN, [facility] Region C.N.P. [address] [place] [address] Referral ID Status Reason Start Date Expiration Date Visits V isits Requested Authorized [id number] Authorized 02/21/2021 02/21/2022 1 1 TING SUPERVISOR Reason for Visit Reason Comments Post Ed Visit Follow-up Seen in ED on 02/19 with gen eralized leg weakness and anxiety Insomnia Would like to get back on am nilsa Encounter Details Date Type Department Care Team Description 02/21/2021 Office Visit Department of [facility] Zeny, Fela Quinteros (Primary Dx); Medicine in [place] Nic HARRIS Insomnia; [place], [place] [address] Pain Low Back Unspecified; [address] [place], [place] Pain Back Thoracic; [place] [address] Weakness Leg [phone] Social History Tobacco Use Types Packs/Day Years [...] How often do you attend orthodox or synagogue More than 4 time s [...] at Date Recorded Male 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 documented as of this encounter Last Filed Vital Signs Vital Sign Reading Time Taken Comments Blood Pressure 138/82 02/21/2021 1:31 PM KNITTING SUPERVISOR Pulse 92 02/21/2021 12:52 PM KNITTING SUPERVISOR Temperature 36.5 ??C (97.7 ??F) 02/21/2021 12:52 PM KNITTING SUPERVISOR Respiratory Rate - - Oxygen Saturation 97% 02/21/2021 12:52 PM KNITTING SUPERVISOR Inhaled Oxygen Concentration - - Weight 146 kg (321 lb) 02/21/2021 12:52 PM KNITTING SUPERVISOR Height 188 cm (6' 2.02) 02/21/2021 12:52 PM KNITTING SUPERVISOR Body Mass Index 41.2 02/21/2021 12:52 PM KNITTING SUPERVISOR documented in this encounter Progress Notes Patrizia Moura, STEVEN, C.N.P. - 02/21/2021 1:00 PM CST SUBJECTIVE CHIEF COMPLAINT / REASON FOR VISIT Post Ed Visit Follow-up (Seen in ED on 02/19 with generalized leg weakness and anxiety) and Insomnia(Would like to get back on ambien) HISTORY OF PRESENT ILLNESS Saad Murray is a 55 y.o. male who presents for ER follow-up. Patient was seen in the ER 2 days ago for bilateral lower extremity weakness. He states he was barely able to walk as both legs were very weak. He does not report any significant numbness or tingling. He had a similar episode 2 weeks ago which he was hospitalized with hyponatremia and COVID. The leg weakness improved but then symptoms returned couple of days ago. He reports symptoms were still present when he left the hospital butwere a lot better. He had laboratory evaluation, IVs, and some Ativan. Patient has had low back painon and off for many years. Most recently started having some midthoracic back pain several months ago. He reports symptoms have not been improving with family day care provider. He has not had any imaging. Heis concerned given his episodes of bilateral lower extremity weakness it may be coming from his back. He has noticed some increased anxiety. He states symptoms really started about 5 years ago with the of his . Symptoms seem worse recently. He does have a daughter on Zoloft. He was given somelorazepam in the ER and that seems to help him somewhat. He states he will lose out of the lorazepamtoday. He also reports a long-term history of insomnia. In the past he has been on Ambien. He stateshe only sleeps a couple hours a night. He has never had a sleep study. Review of Systems Comprehensive review of systems is negative except noted above. The following portions of the patient's history were reviewed: allergies, current medications, problem list and social history OBJECTIVE BP 138/82 Pulse 92 Temp 36.5 ??C (Temporal) Ht 188 cm Wt (!) 146 kg SpO2 97% BMI 41.20 kg/m?? PHYSICAL EXAM General Appearance: awake, alert, oriented, in no acute distress Skin: skin color, texture, turgor are normal Back: No significant pain to palpation along the lumbar spine. He does have some slight pain with palpation along the upper thoracic spine. Bilateral lower extremity strength 5/5. Patellar reflexes 1+ bilaterally. Sensation intact. Lungs: Normal expansion. Clear to auscultation. No rales, rhonchi, or wheezing. Heart: Heart sounds are normal. Regular rate and rhythm without murmur, gallop or rub. Psych exam:alert,oriented, in NAD with a full range of affect, normal behavior and no psychotic features ASSESSMENT / PLAN 1. Anxiety Discussed treatment options for his anxiety with the patient and his daughter. Discussed that lorazepam is not a long-term medication. He does agree with starting an SSRI. Patient is started on Zoloft.Discussed potential side effects of the medication. Warned patient that symptoms may get worse before getting better. If he develops any thoughts of suicide or self-harm patient needs to seek urgent evaluation in the ER. I did refill the lorazepam for severe anxiety. Patient has follow-up appointment with his PCP in a week and a half. Would recommend follow-up for mood in 1 month. - sertraline (ZOLOFT) 25 mg tablet; Take 1 tab daily for 6 days then increase to 2 tabs daily. Dispense: 60 tablet; Refill: 1 - Family Medicine office visit (clinic); Future - LORazepam (ATIVAN) 1 mg tablet; Take 1 tablet (1 mg total) by mouth 2 (two) times a day as needed for anxiety for up to 10 days. Dispense: 10 tablet; Refill: 0 2. Insomnia I am hoping with treating his anxiety his insomnia will improve. If it does not he may benefit from a trial of trazodone. 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 He may also benefit from a sleep study. 3. Pain Low Back Unspecified 4. Pain Back Thoracic 5. Weakness Leg MRI of the lumbar and thoracic spine spine have been ordered due to patient's episodes of severe bilateral lower extremity weakness. He is not having any red flag symptoms right now. Discussed signs and symptoms that warrant urgent evaluation. Further treatment evaluation based on MRI results. - MR Lumbar Spine without IV Contrast; Future - MR Thoracic Spine without IV Contrast; Future All of patient's questions were answered. Patient is agreeable with plan outlined above. Patient will return to clinic in 2 weeks for follow-up with his PCP or sooner if needed. TING SUPERVISOR documented in this encounter Plan of Treatment Upcoming Encounters Date Type Specialty Care Team Description 02/15/2022 Office Visit Orthopedic Surgery Madyson Rosa, D.ONikhil [address] [place], [place] [phone] (Wo rk) Scheduled Orders Name Type Priority Associated Diagnoses Order S chedule MR Thoracic Spine Imaging RAD - Routine (most Pain Low Back Ex pected: without IV Contrast inpatients and all Unspecifi ed 02/21/2021 outpatients) Pain Back Thorac ic (Approximate), Weakness Leg Expires: 05/24/2022 Scheduled Referrals Name Type Priority Associated Diagnoses Order S chedule Family Medicine Outpatient Referral Routine Anxiety Expec tim: office visit 02/21/2021 (clinic) (Approximate), Expires: 05/24/2022 documented as of this encounter Visit Diagnoses Diagnosis Anxiety - Primary Insomnia Pain Low Back Unspecified Pain Back Thoracic Weakness Leg documented in this encounter Additional Health Concerns Assessment Noted Time PHQ-9 Depression Total Score: 2 09/17/2018 9:08 AM CDT documented as of this encounter Care Teams Mri Special Procedures Technologist Relationship Specialty Start Date End Date Norma Kenny APRN, C.N.P. PCP - General 09/12/[address] [place] [phone] documented as of this encounter
--- OUTSIDE RECORDS SUMMARY | 2022-01-25 11:37 | XMS_ITS | Encounter Summary ---
:1965 Author Organization [facility] Address [address] [place] [address] Care Team Providers Name Role Phone Norma Kenny APRN, C.N.P. Primary Care Provider [phone] Reason for Visit Reason Comments Med Refill Encounter Details Date Type Department Care Team Description 02/27/2021 Refill Department of Family Medicine Tc Moura APRN, Med Refill in [facility] C.N.P. [address] [facility] [address] [place], [place] [address] [place], [place] [phone] (Wo rk) Social History Tobacco Use [...] or relatives? How often do you attend mormonism or zoroastrianism More than 4 time s per year 09/17/2018 services? 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 documented as of this encounter Miscellaneous Notes Telephone Encounter - Carolyn Murray RNikhilMGilson - 03/02/2021 9:12 AM WEB DEVELOPER Last OV: 02-21-2021 Last refill: 02-21-2021 Last MELODY: Upcoming appt: 03-02-2021 DEVELOPER documented in this encounter Plan of Treatment Upcoming Encounters Date Type Specialty Care Team Description 02/15/2022 Office Visit Orthopedic Surgery Madyson Rosa, D.ONikhil [address] [place], [place] [phone] (Wo rk) documented as of this encounter Visit Diagnoses Diagnosis Anxiety documented in this encounter Additional Health Concerns Assessment Noted Time PHQ-9 Depression Total Score: 2 09/17/2018 9:08 AM CDT documented as of this encounter Care Teams Machinery Mover Relationship Specialty Start Date End Date Norma Kenny APRN, C.N.P. PCP - General 09/12/[address] [place] [phone] documented as of this encounter
--- OUTSIDE RECORDS SUMMARY | 2022-01-25 11:37 | XMS_ITS | Encounter Summary ---
:1965 Author Organization [facility] Address [address] [place] [address] Care Team Providers Name Role Phone Norma Kenny APRN, C.N.P. Primary Care Provider [phone] Reason for Visit Reason Comments Fatigue weakness legs bilateral Appointment Request (Routine) - Closed Specialty Diagnoses / Procedures Referred By Contact Refer red To Contact Family Medicine Referral ID Status Reason Start Date Expiration Date Visits Requ ested Visits Authorized [id number] Closed 01/25/2021 01/25/2022 1 1 Encounter Details Date Type Department Care Team Description 01/25/2021 Office Visit Department of Family Efe Boyle Fati gue (Primary Dx); Medicine in 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 documented as of this encounter Last Filed Vital Signs Vital Sign Reading Time Taken Comments Blood Pressure 144/84 01/25/2021 1:19 PM CDT Pulse 101 01/25/2021 12:56 PM CDT Temperature 36.6 ??C (97.8 ??F) 01/25/2021 12:56 PM CDT Respiratory Rate 16 01/25/2021 12:56 PM CDT Oxygen Saturation 97% 01/25/2021 12:56 PM CDT Inhaled Oxygen Concentration - - Weight 147 kg (324 lb 8 oz) 01/25/2021 12:56 PM CDT Height 185.4 cm (6' 0.99) 01/25/2021 12:56 PM CDT Body Mass Index 42.82 01/25/2021 12:56 PM CDT documented in this encounter Patient Instructions Patient InstructionsTaylor, Joanna Wilks - 01/25/2021 1:00 PM CDT Images from the original note were not included. Take protonix daily for 2 weeks Follow up with your primary provider if you are not improving. Patient Education Post-COVID Syndrome: Long-term symptoms after having COVID-19 About Post-COVID Syndrome Most people who have COVID-19 completely recover within a few weeks. However, this is not true for everyone. If several weeks have passed and you still have certain symptoms, you may have post-COVID syndrome. A syndrome is a group of signs or symptoms that happen together and are related to a certain disease. In this case, the signs and symptoms are related to COVID-19. You may also hear your health care provider call this long-COVID or Post Acute Sequelae of SARS CoV-2 infection (PASC).?? Your symptoms can be frustrating, making it hard to resume your normal lifestyle and daily activities at home, school and work. You may be confused why this is happening, feel alone and full of self-doubt. You may think, Why is this happening to me? Why can't I get better? Know you are not the only one having these problems: about 10% to 15% of people who had COVID-19 have symptoms of post-COVID syndrome. Help is available. Your health care provider and you can partner to manage the symptoms and get you on a path toward recovery. This resource explains the symptoms you may have, possible complications, evaluation, symptom management, and treatment options. If you have questions about post-COVID syndrome or this information, talk with your health care provider. The quotes you see in this resource are the words of a 44-year-old woman who was diagnosed with COVID-19 in late 2019. She had moderate symptoms during her initial illness and was not hospitalized at any time. She shared her story hoping that others will find comfort in her words. Post-COVID Syndrome Symptoms One of the most common symptoms people have is feeling very tired, called fatigue. This is not the normal level of tired you might feel after a bad night of sleep or even when you have a cold. The fatigue you have can be quite severe. It can last for hours or days. You feel more tired than you're usedto feeling after doing just a simple task like taking out the trash or going up a flight of stairs. I continue to be so tired all the time. I am able to do physical activity, but have fatigue after showering or making a meal. After I worked four hours, I would be so mentally and physically exhaustedthat I would need a nap. It has been surprising to me how long these symptoms are lasting. Other symptoms you may have include: ?? Difficulty breathing. ?? Coughing. ?? Anxiety and depression. ?? Headache. ?? Dizziness, especially when you are standing. ?? Trouble doing more than one thing at once. ?? Trouble remembering or thinking clearly, often called brain fog. ?? Trouble sleeping. ?? Rapid heart rate. ?? Chest or rib pain. ?? Muscle weakness. ?? Joint pain. ?? Persistent or new loss of smell or taste. ?? Rash or hair loss. You may have other symptoms not listed here. Your symptoms may last for several months or even longer. COVID-19 infection can also cause new problems, such as blood clots and inflammation. Having had COVID-19 increases the risk for other medical problems, such as other infections. The virus can damage the lungs, kidneys, heart, and brain. This damage can increase the risk for long-term health problems.Some of these problems can be life-threatening. For these reasons, if you continue to have symptoms, do not delay contacting your health care provider. Make an appointment soon to get the care you need. People Who Are at Risk for Post-COVID Syndrome People who are at increased risk for post-COVID syndrome include those who were hospitalized for COVID-19 and those who had certain conditions before they had COVID-19, such as a lung disease. However, these are not the only people who are developing problems. This syndrome can happen in people of all ages, sexes, races, and in those who had no previous medical conditions. Some people only had a few mild symptoms when they had COVID-19, while others had many severe symptoms. If you had any previous medical conditions, such as asthma, postural orthostatic tachycardia syndrome (POTS), depression or anxiety, having had COVID-19 can make these conditions worse. I easily anger at myself for the lapses of memory and brain fog or just finding the right words. I feel that tasks that I could easily do before COVID-19 are now a struggle because I almost have to relearn everything. I have to write down everything. This is extremely frustrating to me! How Post-Covid Syndrome Is Evaluated Your health care provider does a thorough evaluation including a physical examination and talking with you about your symptoms. Be sure to tell your provider about all your symptoms, including all physical and mental health problems. Usually, a provider orders several tests to rule out other serious me dical conditions and complications. Your provider may order: ?? Blood tests to check for kidney or liver damage, signs of infection or problems with blood sugar levels. ?? A chest X-ray. ?? Tests to see how well your lungs work, called pulmonary function testing. ?? An echocardiogram to assess the function of your heart. ?? A test of parts of the nervous system that control functions, such as heart rate and blood pressure. Right now, there is not one specific test for this syndrome. Your provider may order other tests andconsultations as needed. These tests may be done over several days. Managing the Symptoms of Post-COVID Syndrome Your health care team may include many specialists who help you manage your ongoing symptoms. These providers may include primary care physicians, heart and lung specialists, neurologists, occupationaland physical therapists, mental health providers, wellness coaches, and other medical specialists. Your health care team uses the information learned during the evaluation to develop your personal management plan. Some treatment options require you to take part in services offered at a health care facility. If this is not an option for you, this does not mean you can't be helped. Many of the management strategies can be done on your own at your home with some guidance. Health care providers are learning there is no quick fix for post-COVID syndrome. Recovery takes time. Working with your health care provider can help you get on a path toward feeling better. My personal CORPORATE RELATIONS DIRECTOR/PCP has put me into a post-COVID physical and occupational therapy program that [facility] started. I am hoping that this will help me with my physical and mental deconditioning that I feel I have sustained. Things You Can Do on Your Own When you have symptoms that last a long time, called chronic symptoms, research shows there are things you can do that will be helpful and others that will not be helpful. All the tips listed under What is helpful should be a regular part of your symptom management plan. What is helpful? Staying active -- Regular physical activity improves flexibility, strength and stamina. In addition,during physical activity, your body releases feel good chemicals, called endorphins, that help reduce pain and fatigue signals. Reducing stress and practicing relaxation techniques -- Stress management and relaxation skills can help give you mental, emotional and physical energy to cope with chronic symptoms. Relaxation is morethan having peace of mind or resting. It is a structured practice of dialing down the danger-sensing signals in your body and mind. ?? Practice relaxation techniques, such as relaxed breathing and progressive muscle relaxation. ?? Ask your provider to teach you how to do techniques that can prevent muscle spasms and reduce muscle tension. Sometimes stress can be too much for you and depression and anxiety can develop. You may have both aphysical and mental condition. Both types need treatment. If you are struggling with depression or anxiety, do not be afraid to seek help from your health care provider. Pacing yourself -- If you do too much or too little, your symptoms may increase. Daily planning and moderation skills help you balance work, leisure activities, time with other people, and daily tasks. Treating other conditions that make your symptoms worse -- Just like many others who have long-term medical conditions, it is important to continue to manage your other medical problems, such as high blood pressure, diabetes and depression. Having a positive outlook -- A positive outlook and being open to change increase your chance of managing symptoms well. If you have a negative outlook and see yourself as a victim, your symptoms couldcontrol you and become the focus of your life. Staying connected -- When you are dealing with these long-term symptoms of COVID-19, you may start to withdraw from friends and family. But it is important to stay connected to those who care about you. Your friends and family can help you manage your symptoms and take your focus off them. Your familyand friends can provide encouragement and lend a hand when you need help. Getting the sleep you need -- Poor sleep can make you more sensitive to developing chronic symptoms and make it harder to improve your condition. Good sleep starts with a good sleep environment. Make sure your bedroom has good air flow and is at a comfortable temperature. Many people sleep better whentheir room is slightly cooler. Put away devices such as smartphones and tablets. Lessen the amount of light and sound in your room. Do not exercise for two hours before bedtime. Do not eat or drink anything with caffeine close to bedtime. Sleep! I can't believe how much better I felt after my mom came and helped me for a week and I was able to truly rest. What is NOT helpful? Thinking about your symptoms all the time -- Keeping your attention on your symptoms prevents you from focusing on activities that can improve your overall well-being. Over-focusing on symptom relief and not enough focus on regaining function -- You may have to livewith these symptoms for a while, but they do not need to control your life. Instead, try to keep your attention on activities that improve your function and quality of life. Being afraid to move so you don't move -- Staying active can actually improve symptoms by stretchingtense muscles and allowing the body to release natural chemicals that reduce pain signals. Other steps that may help Sometimes managing long-term symptoms involves moving away from medical treatments. The following may be helpful when used as part of a self-management plan: Cognitive behavioral therapy (CBT) -- This therapy helps you replace thoughts about your symptoms with more helpful thoughts. This therapy also helps you take part in fewer behaviors related to symptoms. Instead, you do activities that are more meaningful to you. Research about CBT shows it can reducechronic symptoms over time. Physical and occupational therapy -- These therapies help you learn new ways to do many tasks. Stretching, strengthening and aerobic exercises can help increase your strength, flexibility and energy level and reduce long-term symptoms. Biofeedback -- Biofeedback may help you learn to control some of your body functions, such as brain activity, blood pressure, muscle tension, breathing rate, and heart rate. It can help you find out which types of relaxation strategies work best for you. I feel like time will help. I am hoping that my PT/OT sessions will also help with my endurance. Mind-body methods, such as: ?? Meditation -- Focusing on deep breathing or a simple phrase to calm your mind and body. ?? Yoga and cody chi -- Using gentle movements and deep breathing to promote flexibility, strength and relaxation. ?? Paced breathing -- Using controlled breathing to help lower your heart rate and reduce stress. Contacting Your Health Care Provider Though many symptoms you might have are troubling, you do not need immediate medical care for most of them. However, if you have certain symptoms, you need to be evaluated and treated by a health care provider right away. Call 911 or seek emergency medical care if you have: ?? Chest pain that is getting worse. ?? Shortness of breath that is getting worse. ?? Swelling in your lower extremities, especially if it is only in one leg. ?? Stroke-like symptoms, such as numbness or weakness on one side, loss of vision, unusually severe headache, strange-sounding speech, or loss of balance. ?? You pass out or feel like you are going to. ?? You feel like you want to hurt yourself or someone else. Do NOT drive yourself to the hospital if you have any of these symptoms. Take Back Your Life! When your symptoms persist, this can be frightening, discouraging and can have a huge impact on yourlife. But know you are not the only one struggling with these symptoms after having COVID-19. Do notfeel alone. Health care providers are learning new ways to manage the symptoms and there is hope. Information about the syndrome is rapidly changing. Because this syndrome is new, there are not many large researchstudies yet, just small ones done with small numbers of people. However, research continues, and over time, health care providers will learn new information about how to help those with post-COVID syndrome. Consider joining a support group for people who have chronic symptoms like yours. It can be helpful to talk with others who understand the challenges of post-COVID syndrome. If you have trouble findinga support group, ask your provider about talking with a manager social services who can refer you to support groups and other resources, including financial ones. Remember the internet can be a useful tool for finding information on almost any topic. Unfortunately, not all health information on the internet is accurate or reliable. Ask your provider to suggest websites that have reliable information. Your health care provider cannot guarantee the accuracy of the information on websites. However, your provider can direct you to some that are likely to be reliable. Be sure to attend all your health care appointments. Learn all you can about the syndrome and ways to manage the symptoms. Ask questions and share your concerns. This syndrome does not have to control you. Many people gradually get better over time, but it takesa while. You may notice small improvement gradually. With knowledge and effective strategies, you can regain control of your life. Be kind to yourself! Accept any help offered and ask for help. Know that you are enough -- even when you can???t do X, Y, Z???you are enough. One day at a time???and sometimes, one minute at a time. This material is for your education and information only. This content does not replace medical advice, diagnosis or treatment. New medical research may change this information. If you have questions about a medical condition, always talk with your health care provider. ? 2020 [facility] for Medical Education and Research ([employer]). All rights reserved. [id number] documented in this encounter Progress Notes Efe Boyle D.O. - 01/25/2021 1:00 PM CDT SUBJECTIVE CHIEF COMPLAINT: Chief Complaint Patient presents with ??? Fatigue weakness legs bilateral He is accompanied by his daughter who helps with history HISTORY OF PRESENT ILLNESS: Saad Murray is a 55 y.o. male who presents for generalized weakness and fatigue. Last week of November thinks had COVID: cough, fevers, lost taste and smell, short of breath. Quarantied at home. Did not get tested. Quarantined at home. Not immunized. Symptoms lasted a little over a week. No known sick contacts. He reports his taste and smell returned after a few days. He is not reporting chest pains or shortness of breath. He reports fatiguing quite easily. Now can work only about 3 hours then leaves work to rest. . He reports he is getting morning nausea and dry heaves which improves. No abdominal pain. Has a history of reflux reports taking pantoprazole about once a week. Prior to his illness he was seeing a chiropractor for low back pain and some weakness of the legs. He has not been into the chiropractor for a month or better. He reports back pain as improved but still feels like he gets weakness of the legs when he ambulates at times. He is not falling. His daughterreports he complains of numbness down the legs at times. No report of change in bowel or bladder function. Overall the back pain has improved but the weakness of the legs seems to have worsened while walking. This could be related to his recent infectious illness versus neurogenic claudication. MEDICATIONS: Current Outpatient Medications: ??? atorvastatin (LIPITOR) 20 mg tablet, Take 1 tablet (20 mg total) by mouth at bedtime. DUE FOR ANNUAL EXAM AND MEDICATION CHECK FOR MORE REFILLs., Disp: 30 tablet, Rfl: 0 ??? lisinopril-hydroCHLOROthiazide (PRINZIDE,ZESTORETIC) 20-25 mg per tablet, Take 1 tablet by mouthdaily. NEEDS APPOINTMENT AND LABS BEFORE NEXT REFILL, Disp: 30 tablet, Rfl: 0 ??? metoprolol succinate (TOPROL-XL) 25 mg 24 hr tablet, TAKE 1 TABLET(25 MG) BY MOUTH DAILY FOR BLOOD PRESSURE, Disp: 90 tablet, Rfl: 3 ??? pantoprazole (PROTONIX) 40 mg EC tablet, Take 1 tablet (40 mg total) by mouth as needed for heartburn., Disp: 90 tablet, Rfl: 3 OBJECTIVE VITAL SIGNS: BP 144/84 Pulse 101 Temp 36.6 ??C (Temporal) Resp 16 Ht 185.4 cm Wt (!) 147 kg SpO2 97% BMI 42.82 kg/m?? PHYSICAL EXAM: Awake and alert and in no distress ENT: Tympanic membranes intact without erythema. Posterior pharynx reveals no erythema or exudate. Neck is supple without adenopathy Heart: Regular without a murmur Lungs: Breath sounds are equal without wheezes or rales or respiratory distress Abdomen: Soft, obese, no guarding or rebound. Musculoskeletal: No tenderness of the lumbar spine. Neurologic: Straight leg raise negative supine position. Muscle strength major muscle groups lower extremities intact and symmetric. Lower extremity reflexes intact and symmetric. He can heel and toe walk. Gait is a little bit wide-based. ASSESSMENT / PLAN #1 Fatigue - SARS-CoV-2 Nucleocapsid Total Ab, S - CBC with Differential, Blood - Thyroid Function [place] - Comprehensive Metabolic Panel - NT-Pro B-Type Natriuretic Peptide (BNP) -unfortunately he did not get tested for COVID at the time of his illness however given the widespread COVID and his not immunized status I suspect he had COVID. Will check a COVID antibody, CBC, thyroid cascade, CMP and proBNP. Will take appropriate action based on results. -discussed post COVID syndrome and potential for slow improvement over time. Handout was given to him regarding this. He was asking for a medication that might be able to help improve his energy. I advised him that there is no one medication that is indicated for this. He will has to let his body recover. -consider COVID vaccine in the future #2 Nausea - ondansetron ODT (ZOFRAN-ODT) 4 mg disintegrating tablet; Take 1 tablet (4 mg total) by mouth every8 (eight) hours as needed for nausea or vomiting., Starting Emily 01/25/2021, Normal -not certain of the cause of nausea. Recommend he start taking pantoprazole daily for the next couple of weeks and trial Zofran. If not improving follow-up with his primary care provider #3 Pain Low Back Unspecified -he reports associated lower extremity weakness however he has a normal examination. I suggest physical therapy and he declines. Patient and daughter were hoping for imaging. -we could consider imaging to evaluate for with sounds what could be associated with neurogenic claudication with lumbar magnetic resonance imaging. His weight may make it difficult to do a standard magnetic resonance imaging he also has some claustrophobia. We can consider an open magnetic resonance imaging through 1 of the [facility]. #4 High Risk Medication - Vitamin B12 Assay #5 Hypertension Essential Primary -reports he is taking his antihypertensives as prescribed. #6 Morbid Obesity Body Mass Index 40.0-44.9 Adult (HCC) -contributes to his overall morbidity. Answers for HPI/ROS submitted by the patient on 01/25/2021 Fatigue: Yes No eye issues: Yes No ENT issues: Yes No heart issues: Yes No respiratory issues: Yes No GI issues: Yes No muscle/bone issues: Yes No skin issues: Yes No neurologic issues: Yes No mental health issues: Yes No blood/lymph issues: Yes No urinary/reproductive issues: Yes documented in this encounter Plan of Treatment Upcoming Encounters Date Type Specialty Care Team Description 02/15/2022 [facility] [address] [place] [address] [phone] (Wo rk) documented as of this encounter Procedures Procedure Name Priority Date/Time Associated Comments Diagnosis SARS-COV-2 TOTAL Routine 01/25/2021 2:20 PM Fatigue Resul ts for this ANTIBODY, SERUM CDT procedure ar e in the results section. THYROID FUNCTION Routine 01/25/2021 2:20 PM Fatigue Resul ts for this CASCADE, S CDT procedure are i n the results section. NT-PRO B-TYPE Routine 01/25/2021 2:20 PM Fatigue Results for this NATRIURETIC PEPTIDE CDT procedur e are in (BNP), S the results section. CBC WITH DIFFERENTIAL, Routine 01/25/2021 2:20 PM Fatigue Results for this B CDT procedure are i n the results section. VITAMIN B12 ASSAY, S Routine 01/25/2021 2:20 PM High Risk R esults for this CDT Medication procedure are i n the results section. COMPREHENSIVE Routine 01/25/2021 2:20 PM Fatigue Results for this METABOLIC PANEL, S/P CDT procedu re are in the results section. documented in this encounter Results (ABNORMAL) NT-Pro B-Type Natriuretic Peptide (BNP) (01/25/2021 2:20 PM CDT) P athologist Signature NT-Pro BNP 68 (H) <=64 pg/mL 01/25/2021 NPRG 2:59 PM CDT Comment: NT-proBNP values less than 300 pg/mL hav e a 99% negative predictive value for excluding acute congestive heart ke[place] lure. A cutoff of 1200 pg/mL for patients with an eGFR<60 yields a diagno stic sensitivity and specificity of 89% and 72% for acute congestive heart f ailure. ??A diagnostic NT-proBNP cutoff of 900 pg/mL has been suggested i n adults 50-75 years of age in the absence of renal failure. Biotin has been identified by the alexis huang as a potential interfering substance. ??Higher concentr ations of biotin may be found in multivitamins, hair/nail supple ments, and workout supplements. ??If the result does not ma [facility] clinical observations, repeat testing after patient refrains fr om the use of supplements for at least 12 hours. Specimen Anatomical Collection Method Collection Time Receive d Time (Source) Location / / Volume Laterality Blood (Blood, 01/25/2021 2:20 PM 01/26/20 21 2:29 Venous) CDT PM CDT Efe Boyle D.O. LAB BLOOD ADD-ON Performing Organization Address City/State/ZIP Code Phon e Number [facility] [address] [place] [address] [facility] [place] [address] [facility] [address] (ABNORMAL) Comprehensive Metabolic Panel (01/25/2021 2:20 PM CDT) Analysis Performed At Patho logist Time Signature Potassium, P 3.9 3.6 - 5.2 01/25/2021 [facility] mmol/L 3:05 PM CDT Sodium, P 134 (L) 135 - 145 01/25/2021 [facility] mmol/L 3:05 PM CDT Chloride, P 95 (L) 98 - 107 01/25/2021 [facility] mmol/L 3:05 PM CDT Bicarbonate, P 21 (L) 22 - 29 01/25/2021 [facility] mmol/L 3:05 PM CDT Anion Gap, P 18 (H) 7 - 15 01/25/2021 [facility] 3:05 PM CDT BUN (Blood Urea 15 8 - 24 01/25/2021 NPRG Nitrogen), P mg/dL 3:05 PM CDT Creatinine 0.71 (L) 0.74 - 01/25/2021 [facility] 1.35 mg/dL 3:05 PM CDT eGFR-Black/Afri >90 >=60 01/25/2021 NPRG can [place] mL/min/BSA 3:05 PM CDT Comment: ----ADDITIONAL INFORMATION---- Estimated GFR calculated using the 2009 CKD_EPI creatinine equation. eGFR Non-Black/ >90 >=60 mL/min/BSA 01/25/2021 3:05 PM CDT NPRG Comment: ----ADDITIONAL INFORMATION---- Estimated GFR calculated using the 2009 CKD_EPI creatinine equation. Calcium, Total, P 10.1 (H) 8.6 - 10.0 mg/dL 01/25/2021 3:05 PM CDT NPRG Glucose, P 114 70 - 140 mg/dL 01/25/2021 3:05 PM CDT N PRG Protein, Total, P 8.1 (H) 6.3 - 7.9 g/dL 01/25/2021 3:05 P M CDT NPRG Albumin, P 4.7 3.5 - 5.0 g/dL 01/25/2021 3:05 PM CDT N PRG Aspartate Aminotransferase 102 (H) 8 - 48 U/L 01/25/2021 3 :05 PM CDT NPRG (AST), P Alkaline Phosphatase, P 81 40 - 129 U/L 01/25/2021 3: 05 PM CDT NPRG Alanine Aminotransferase 94 (H) 7 - 55 U/L 01/25/2021 3:0 5 PM CDT NPRG (ALT), P Bilirubin, Total, P 0.8 <=1.2 mg/dL 01/25/2021 3:05 PM CDT NPRG Specimen Anatomical Collection Method Collection Time Receive d Time (Source) Location / / Volume Laterality Blood (Blood, 01/25/2021 2:20 PM 01/26/20 2:29 Venous) CDT PM CDT Efe Boyle D.O. LAB BLOOD ADD-ON Performing Organization Address City/[facility] Care [facility] Code Phon e Number [facility]- [address] [place], [place] [address] [place] [address] [place] [address] [address] [facility] Vitamin B12 Assay (01/25/2021 2:20 PM CDT) athologist Signature Vitamin B12 [phone] 01/25/2021 [place] Assay, S ng/L 5:45 PM CDT Comment: Biotin has been identified by the alexis huang as a potential interfering substance. ??Higher concentr ations of biotin may be found in multivitamins, hair/nail supple ments, and workout supplements. ??If the result does not ma tch clinical observations, repeat testing after patient refrains fr om the use of supplements for at least 12 hours. Specimen Anatomical Collection Method Collection Time Receive d Time (Source) Location / / Volume Laterality Blood (Blood, 01/25/2021 2:20 PM 01/26/20 4:51 Venous) CDT PM CDT Efe Boyle D.O. LAB BLOOD ADD-ON Performing Organization Address City/[facility] Care [facility]/ZIP Code Phon e Number [facility]- [facility] [place] [address] [place] [address] [address] Thyroid Function [place] (01/25/2021 2:20 PM CDT) athologist Signature TSH, Sensitive 1.6 0.3 - 4.2 01/25/2021 NPRG mIU/L 3:03 PM CDT Specimen Anatomical Collection Method Collection Time Receive d Time (Source) Location / / Volume Laterality Blood (Blood, 01/25/2021 2:20 PM 01/26/20 21 2:29 Venous) CDT PM CDT Efe Boyle D.O. LAB BLOOD ADD-ON Performing Organization Address City/State/ZIP Code Phon e Number [facility]- [address] [place] [address] [facility] [address] (ABNORMAL) CBC with Differential, Blood (01/25/2021 2:20 PM CDT) [facility] Method Time Signature Hemoglobin 15.5 13.2 - 01/25/2021 NPRG 16.6 g/dL 3:01 PM CDT Hematocrit 44.4 38.3 - 01/25/2021 NPRG 48.6 % 3:01 PM CDT Erythrocytes 4.65 4.35 - 01/25/2021 NPRG 5.65 3:01 PM CDT x10(12)/L MCV 95.5 78.2 - 01/25/2021 NPRG 97.9 fL 3:01 PM CDT RBC Distrib Width 13.0 11.8 - 01/25/2021 [facility]G 14.5 % 3:01 PM CDT Platelet Count 130 (L) 135 - 317 01/25/2021 NPRG x10(9)/L 3:01 PM CDT Leukocytes 5.8 3.4 - 9.6 01/25/2021 NPRG x10(9)/L 3:01 PM CDT Neutrophils 4.00 1.56 - 01/25/2021 NPRG 6.45 3:01 PM CDT x10(9)/L Lymphocytes 1.22 0.95 - 01/25/2021 NPRG 3.07 3:01 PM CDT x10(9)/L Monocytes 0.51 0.26 - 01/25/2021 NPRG 0.81 3:01 PM CDT x10(9)/L Eosinophils 0.03 0.03 - 01/25/2021 NPRG 0.48 3:01 PM CDT x10(9)/L Basophils 0.02 0.01 - 01/25/2021 NPRG 0.08 3:01 PM CDT x10(9)/L Specimen Anatomical Collection Method Collection Time Receive d Time (Source) Location / / Volume Laterality Blood (Blood, 01/25/2021 2:20 PM 01/26/20 21 2:29 Venous) CDT PM CDT Efe Boyle D.O. LAB BLOOD ADD-ON Performing Organization Address City/State/ZIP Code Phon e Number [facility]- [address] [place] [address] [facility] [place] [place] [address] (ABNORMAL) SARS-CoV-2 Nucleocapsid Total Ab, S (01/25/2021 2:20 PM CDT) [facility] Method Time Signature SARS-CoV-2 Positive (A) Negative 01/26/2021 DT Nucleocapsid 7:39 AM CDT Total Ab, S Comment: SARS-CoV-2 antibodies detected. Results suggest recent or prior SARS-CoV-2 infection. Correlati on with epidemiologic risk factors and other cli nical and laboratory findings is recommended. Sero logic results should not be used to diagnose recent SA RS-CoV-2 infection. Protective immunity cannot be inferred b ased on these results alone. False positive results ma y occur due to cross reactivity from pre-existing antib odies or other possible causes. ----ADDITIONAL INFORMATION---- Testing was performed using the [employer]csys [id number] Reagent assay from [employer], which has received Emergency Use Authori zation(EUA) by the U.S. Food and Drug Administration . Fact sheets for this Emergency Use Autho rization (EUA) assay can be found at the following link s: For Healthcare Providers: https://www.fda.gov/media/481698/downloa d For Patients: https://www.fda.gov/media/939814/downloa d Specimen Anatomical Collection Method Collection Time Receive d Time (Source) Location / / Volume Laterality Blood (Blood, 01/25/2021 2:20 PM 01/27/20 7:04 Venous) CDT AM CDT Efe Boyle D.O. LAB MICROBIOLOGY - BLOOD ORD ERABLES Performing Organization Address City/State/ZIP Code Phon e Number [facility] - [address] [place], [place] [address] [facility] [place] [address] [facility] [address] documented in this encounter Visit Diagnoses Diagnosis Fatigue - Primary Nausea Pain Low Back Unspecified High Risk Medication Hypertension Essential Primary Morbid Obesity Body Mass Index 40.0-44.9 Adult (HCC) documented in this encounter Additional Health Concerns Assessment Noted Time PHQ-9 Depression Total Score: 2 09/17/2018 9:08 AM CDT documented as of this encounter Care Teams Party Plan Demonstrator Relationship Specialty Start Date End Date Norma Kenny APRN, C.N.P. PCP - General 09/12/[address] [place] [phone] documented as of this encounter
--- OUTSIDE RECORDS SUMMARY | 2022-01-25 11:37 | XMS_ITS | Encounter Summary ---
:1965 Author Organization [facility] Address [address] [place] [address] Care Team Providers Name Role Phone Norma Kenny APRN C.N.PNikhil Primary Care Provider [phone] Encounter Details Date Type Department Care Team Description 01/26/2021 Clinical Communication Department of Chase Philippe, Medicine in [facility] COUPON REDEMPTION CLERK [place] [address] [place] [phone] Social History Tobacco Use Types Packs/Day Years [...] How often do you attend caodaism or episcopal More than 4 time s [...] at Date Recorded Male 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 - 02/07/2021 3:48 PM FAN RUNNER Pt had no desire to be seen by a provider as he was upset and frustrated. By the end of the conversation he was less frustrated but did not want to pursue any appointments at this time. He was given the information to get connected on the portal so that his daughter could see the actual lab work and provider notes for her thoughts as she is a nurse as well. I dont believe there is any further expectations from us with regard to this situation at this time. RUNNER Telephone Encounter - Norma Kenny APRN, C.N.P. - 02/01/2021 8:47 AM CDT I really cannot give him much for recommendations without seeing him, evaluating him, and discussingwith him directly, as he saw another provider for this concern. If he has a specific concern in regards to follow up from his last appointment, he can call/message Dr. Boyle, otherwise I think he willneed to follow up in clinic. In general terms, yes COVID-19 infection can cause prolonged fatigue that can last sometimes 3 months or, rarely, even longer. Norma Conroy Telephone Encounter - Jeannette Bernardo L.P.N. - 01/31/2021 5:40 PM CDT Spoke with pt regarding this concern. He is frustrated at his continued fatigue and not getting back on my feet. I explained to the pt regarding post covid dx. Everyone responds differently. Some folks recover quickly and others are taking several week.s . Pt at this time will have his daughter lookat all the lab results and determine next steps. Pt was encouraged to contact clinic if any further questions or assistance is needed. Please advise as appropriate. Telephone Encounter - July Eason - 01/31/2021 1:46 PM CDT The patient called and is very upset that he never received a call back regarding the message he left for Norma Kenny and nursing last week. He did not want to leave another message, but instead wanted to talk directly with a nurse, but no nurse was available when he called as they were with other patients. I offered to leave an urgent message and have a nurse call him as soon as they can today, but he said he didn't want to do that, and said, what, and wait another 4-5 days for a response? This is B.S. I offered that he could continue to hold and I could continue to reach out to the clinic to try and connect him with a nurse. However, he either hung up or the line disconnected. I called him back, buthe didn't answer and it rolled to voice mail, but his voice mail box is full so I was unable to leave a message. Please call the patient as soon as possible today at [phone]. Thank you. Telephone Encounter - Norma Kenny APRN, C.N.P. - 01/26/2021 11:02 AM CDT I would generally not recommend steroids for treatment of post-COVID fatigue symptoms, but I did notsee ore evaluate patient for this concerns so I will forward to Dr. Boyle for further recommendations. Thanks, TK Telephone Encounter - Jeannette Bernardo L.P.N. - 01/26/2021 10:47 AM CDT Your thoughts? Telephone Encounter - July Eason - 01/26/2021 9:48 AM CDT The patient would like a call from Norma Kenny or a nurse about whether Norma would be willing to prescribe a steroid for him. He was seen by Dr. Boyle yesterday due to fatigue, nausea, and low back pain. The patient feels he was previously ill with COVID, but was never tested. His request today is related to those same symptoms. He can be reached at [phone]. Thank you. documented in this encounter Plan of Treatment Upcoming Encounters Date Type Specialty Care Team Description 02/15/2022 Office Visit Orthopedic Surgery RavinwyMadyson haq il, D.O. [address] [place], [place] [phone] (Wo rk) documented as of this encounter Visit Diagnoses Not on filedocumented in this encounter Additional Health Concerns Assessment Noted Time PHQ-9 Depression Total Score: 2 09/17/2018 9:08 AM CDT documented as of this encounter Care Teams Clinical Advisor Relationship Specialty Start Date End Date Norma Kenny APRN, C.N.P. PCP - General 09/12/[address] [place] [address] documented as of this encounter
--- OUTSIDE RECORDS SUMMARY | 2022-01-25 11:37 | XMS_ITS | Encounter Summary ---
:1965 Author Organization [facility] Address [address] [place] [address] Care Team Providers Name Role Phone Norma Kenny APRN, C.N.P. Primary Care Provider Reason for Visit Reason Comments Med Refill Encounter Details Date Type Department Care Team Description 11/25/2020 Refill Department of Family Medicine Caden Kenny APRN, Med Refill in [facility] so C.N.P. 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 [address] [place], [place] [phone] (Wo rk) documented as of this encounter Visit Diagnoses Diagnosis Hypertension Essential Primary documented in this encounter Additional Health Concerns Assessment Noted Time PHQ-9 Depression Total Score: 2 09/17/2018 9:08 AM CDT documented as of this encounter Care Teams Band Edger Relationship Specialty Start Date End Date Norma Kenny APRN, C.N.P. PCP - General 09/12/[address] [place] [address] documented as of this encounter
--- OUTSIDE RECORDS SUMMARY | 2022-01-25 11:37 | XMS_ITS | Encounter Summary ---
:1965 Author Organization [facility] Address [address] [place] [address] Care Team Providers Name Role Phone Norma Kenny APRN, C.N.P. 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 documented as of this encounter Plan of Treatment Upcoming Encounters Date Type Specialty Care Team Description 02/15/2022 Office Visit Orthopedic Surgery Madyson Rosa, D.ONikhil [address] [place], [place] [phone] (Wo rk) Scheduled Orders Name Type Priority Associated Diagnoses Order S chedule CBC with Lab Routine Abnormal Liver Expected: 12/2020 Differential, Blood Function Jana t (Approximate), Fatigue Expires: 2023 AST (Aspartate Lab Routine Abnormal Liver Expected: Aminotransferase) Function Test 02/07/2021, Expires: Fatigue 01/27/2024 ALT (Alanine Lab Routine Abnormal Liver Expected: Aminotransferase) Function Test 02/07/2021, Expires: Fatigue 01/27/2024 Hepatitis B Surface Microbiology Routine Abnormal Liver Expect ed: Antigen Function Test 02/07/2021, Expires: Fatigue 01/27/2024 Hepatitis B Core IgM Microbiology Routine Abnormal Liver Expec tim: Ab Function Test 02/07/2021, Expires: Fatigue 01/27/2024 Hepatitis A IgM Ab, Microbiology Routine Abnormal Liver Expect ed: Serum Function Test 02/07/2021, Expires: Fatigue 01/27/2024 HCV Ab w/Reflex to Microbiology Routine Abnormal Liver Expecte d: HCV PCR, Serum Function Test 02/07/2021, Expires: Fatigue 01/27/2024 documented as of this encounter Visit Diagnoses Diagnosis Abnormal Liver Function Test - Primary Fatigue documented in this encounter Additional Health Concerns Assessment Noted Time PHQ-9 Depression Total Score: 2 09/17/2018 9:08 AM CDT documented as of this encounter Care Teams Zone Maintenance Technician Relationship Specialty Start Date End Date Norma Kenny APRN, C.N.P. PCP - General 09/12/[address] [place] [phone] documented as of this encounter
--- OUTSIDE RECORDS SUMMARY | 2022-01-25 11:37 | XMS_ITS | Encounter Summary ---
:1965 Author Organization [facility] Address [address] [place] [address] Care Team Providers Name Role Phone Norma Kenny APRN C.NNikhilPNikhil Primary Care Provider Reason for Visit Reason Comments COVID Nurse Line Encounter Details Date Type Department Care Team Description 01/24/2021 Clinical Communication Division of Lizette Enriquez COVI D Nurse Line [facility] Internal [place]. 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 - 01/24/2021 5:07 PM CDT COVID-19 Nurse Line Screening ASSESSMENT Region Select appropriate region: : [place] Age Pathway Select approprite pathway: : Adult Have you had close contact* with a person who has a LABORATORY CONFIRMED case of COVID-19 in the past 14 days?: No (Continue Screening) In the last 48 hours, have you had a fever* OR symptoms that are unrelated to a preexisting illness?: New shortness of breath,New cough,New nausea,New headache Have you received a COVID-19 vaccine in the last 72 hours? : No vaccine received (Continue Screening) Do you have any of the following urgent symptoms?: No urgent symptoms noted (Continue Screening) (wheezy transfer to triage nurse) Have you tested positive for COVID-19 in the last 45 days?: No (Continue Screening) Are ALL the following criteria met: age between 18 to 75 yrs, main symptom is a sore throat with duration of 24 hrs to 7 days, onset of sore throat not associated with new upper respiratory symptoms*? : No, COVID testing is recommended (End Screening) Symptom Onset Date of symptom onset: 12/18/20 Testing Recommendation Endpoint Is testing recommended? : Recommended to test PLAN Endpoint recommendation: Symptomatic testing indicated, advised to be swabbed for COVID-19 Only , sent to [facility]: An appointment is needed for testing. Call [phone] during the hours of Mon-Fri 8 am - 4 pm or Sat/Sun 9 am - 2 pm to schedule an appointment time. Scheduling staff will provide instructions on location and check in for your appointment. , Please avoid using public transportation per CDC recommendation. If you do not have personal transportation please self-quarantine until a personal transportation option is available. Pt stated he has symptoms for the last 6 weeks andthey are not getting better. Pt sated he is wheezing, called transferred to [facility] triage nurse line for further evaluation. Standard Care Points -Get a COVID -19 vaccine as soon as you can if not fully vaccinated. -Wash hands frequently with soap and water, use hand hospital receiving clerk if soap and water aren't available. -Wear a mask over your nose and mouth to help protect yourself and others if not fully vaccinated and having no symptoms -Stay 6 feet between yourself and others who don't live with you. -Avoid crowds and poorly ventilated indoor spaces. -Seek emergent care if any of the following occur Trouble breathing Bluish lips or face Persistent pain or pressure in the chest New confusion or inability to rouse. -Notify your regular care provider of any new or worsening symptoms. Symptomatic Carepoints: Stay home and separate yourself from others and stay in a specific sick room if able. Avoid sharing personal or household items. Rest. Hydrate. Take Acetaminophen/Ibuprofen asneeded to control fever and muscles aches. Use over the counter medications as needed for other symptoms. If you have received a negative COVID-19 test result and continue to have new or worsening symptoms after 72 hours please call the COVID Nurse Line to assess if you need repeat testing or reach out to your Primary Care Provider for guidance. Education: Patient/caregiver able to teach back Patient agreeable to plan of care: Yes The following references were used: [facility] novel coronavirus (COVID- 19) resources CDC web site https://www.cdc.gov/coronavirus/2019-ncov/your-health/index.html Nursing judgement documented in this encounter Plan of Treatment Upcoming Encounters Date Type Specialty Care Team Description 02/15/2022 Office Visit Orthopedic Surgery Madyson Rosa, Jarad.ONikhil [address] [place], [place] [phone] (Wo rk) documented as of this encounter Visit Diagnoses Not on filedocumented in this encounter Additional Health Concerns Assessment Noted Time PHQ-9 Depression Total Score: 2 09/17/2018 9:08 AM CDT documented as of this encounter Care Teams Collection Support Specialist Relationship Specialty Start Date End Date Norma Kenny APRN, C.N.P. PCP - General 09/12/[address] [place] [phone] documented as of this encounter
--- OUTSIDE RECORDS SUMMARY | 2022-01-25 11:37 | XMS_ITS | Encounter Summary ---
:1965 Author Organization [facility] Address [address] [place] [address] Care Team Providers Name Role Phone Norma Kenny APRN, C.N.P. Primary Care Provider [phone] Reason for Visit Reason Comments Med Refill Encounter Details Date Type Department Care Team Description 02/08/[address] [facility], [place] M.D. 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 PCP - General 09/12/[address] [place] [phone] documented as of this encounter
--- OUTSIDE RECORDS SUMMARY | 2022-01-25 11:37 | XMS_ITS | Encounter Summary ---
:1965 Author Organization [facility] Address [address] [place] [address] Care Team Providers Name Role Phone Norma Kenny APRN, C.N.P. Primary Care Provider [phone] Reason for Visit Reason Comments Med Refill Encounter Details Date Type Department Care Team Description 11/26/2020 Refill Department of Family Medicine Caden Kenny APRN, Med Refill in [facility] so C.N.P. [address] [place] [address] [place] [phone] (Wo rk) Social History Tobacco Use Types [...] or relatives? How often do you attend uatsdin or faith More than 4 time s per year 09/17/2018 services? 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 documented as of this encounter Miscellaneous Notes Telephone Encounter - Iris Edwards R.MGilson - 11/27/2020 9:26 AM CDT Medication Name: atorvastatin Last Refill: 11/21/20 Last Office Visit: 01/18/2020 Due for Office Visit: yes Future Office Visit: none Requesting future refills due in December for annual exam and medication check documented in this encounter Plan of Treatment Upcoming Encounters Date Type Specialty Care Team Description 02/15/2022 Office Visit Orthopedic Surgery Madyson Rosa il, D.ONikhil [address] [place], [place] [phone] (Wo rk) documented as of this encounter Visit Diagnoses Diagnosis Hyperlipidemia documented in this encounter Additional Health Concerns Assessment Noted Time PHQ-9 Depression Total Score: 2 09/17/2018 9:08 AM CDT documented as of this encounter Care Teams Mill Stenciler Relationship Specialty Start Date End Date Norma Kenny, STEVEN, C.N.P. PCP - General 09/12/[address] [place] [phone] documented as of this encounter
--- OUTSIDE RECORDS SUMMARY | 2022-01-25 11:37 | XMS_ITS | Encounter Summary ---
:1965 Author Organization [facility] Address [address] [place] [address] Care Team Providers Name Role Phone Norma Kenny APRN, C.N.P. Primary Care Provider [phone] Reason for Visit Reason Comments Med Refill Encounter Details Date Type Department Care Team Description 11/20/2020 Refill Department of Family Medicine Sebas Law M.D. Med Refill in [facility] [address] [place] [phone] (Wo rk) Social History Tobacco Use Types [...] or relatives? How often do you attend mandaeism or confucianist More than 4 time s per year 09/17/2018 services? 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 - 11/20/2020 3:08 PM CDT Request to refill Atorvastatin Last refilled: 08/15/20 for 90 tabs, 0 refills Last OV R/T hyperlipidemia: 05/19/19 Last labs: 05/21/19 No future OV scheduled. Patient is due for annual exam and labs. Note placed on RX that patient is due for OV before further refills. Order is also in place for an appointment. Would you like to refill? Yanni Betancur RN documented in this encounter Plan of Treatment Upcoming Encounters Date Type Specialty Care Team Description 02/15/2022 Office Visit Orthopedic Surgery Madyson Rosa, Jarad.ONikhil [address] [place], [place] [phone] (Wo rk) documented as of this encounter Visit Diagnoses Diagnosis Hyperlipidemia documented in this encounter Additional Health Concerns Assessment Noted Time PHQ-9 Depression Total Score: 2 09/17/2018 9:08 AM CDT documented as of this encounter Care Teams Manager Data Center Relationship Specialty Start Date End Date Norma Kenny APRN, C.N.P. PCP - General 09/12/[address] [place] [phone] documented as of this encounter
--- OUTSIDE RECORDS SUMMARY | 2022-01-25 11:37 | XMS_ITS | Encounter Summary ---
:1965 Author Organization [facility] Address [address] [place] [address] Care Team Providers Name Role Phone Norma Kenny APRN, C.NNikhilPNikhil Primary Care Provider [phone] Reason for Visit Reason Comments Palpitations Pt presents for eval of otf LE weakness and feelings of heart pounding Palpitations started yesterd ay, LE weakness started about 10 days ago. +Covid test 01/25 but had sx for one month prior Auth/Cert Specialty Diagnoses / Procedures Referred By Contact Refer red To Contact Diagnoses Hyponatremia COVID-19 Infection Procedures Referral ID Status Reason Start Date Expiration Date Visits Requ ested Visits Authorized [id number] 1 1 Encounter Details Date Type Department Care Team Description 02/05/2021 - Hospital Encounter [facility] Efe Childress D[address]O. [address] [place] [phone] Hyponatremia (Primary Dx); [facility] [address] [place] [phone] COVID-19 Infection; 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 documented as of this encounter Last Filed Vital Signs Vital Sign Reading Time Taken Comments Blood Pressure 169/82 02/07/2021 11:10 AM COMMUNITY HEALTH NURSING DIRECTOR Pulse 92 02/07/2021 11:10 AM COMMUNITY HEALTH NURSING DIRECTOR Temperature 36.2 ??C (97.2 ??F) 02/07/2021 11:10 AM COMMUNITY HEALTH NURSING DIRECTOR Respiratory Rate 18 02/07/2021 11:10 AM COMMUNITY HEALTH NURSING DIRECTOR Oxygen Saturation 96% 02/07/2021 11:10 AM COMMUNITY HEALTH NURSING DIRECTOR Inhaled Oxygen Concentration - - Weight 149 kg (327 lb 6.1 oz) 02/07/2021 1:00 AM COMMUNITY HEALTH NURSING DIRECTOR Height 185.4 cm (6' 0.99) 02/06/2021 2:14 PM COMMUNITY HEALTH NURSING DIRECTOR Body Mass Index 43.2 02/06/2021 2:14 PM COMMUNITY HEALTH NURSING DIRECTOR documented in this encounter Discharge Summaries Rio Damon M.D. - 02/07/2021 8:07 AM CST DISCHARGE SUMMARY BRIEF OVERVIEW Hospital: [facility] Discharge Provider: Rio Damon M.D. Primary Care Providers: Norma Kenny APRN, C.N.P. (General) [address] [facility] [phone] Primary Care Provider Primary Care Provider Other Providers: None Admission Date: 02/05/2021 Discharge Date: 02/07/2021 PRINCIPAL DIAGNOSIS Hyponatremia SECONDARY DIAGNOSES Principal Problem (Resolved): Hyponatremia Active Problems: Acute Lower Respiratory Infection Due To COVID-19 Pain Low Back Chronic Resolved Problems: Pain Leg Bilateral Hypokalemia DISCHARGE DISPOSITION Home or Self Care [1] ACTIVE ISSUES REQUIRING FOLLOW UP Lisinopril dose and BP control and anxiety. OUTPATIENT FOLLOW UP For appointment details refer to your Patient Appointment Guide. TEST RESULTS PENDING AT DISCHARGE Pending Labs None DETAILS OF HOSPITAL STAY REASON FOR ADMISSION Hyponatremia COVID-19 Infection HOSPITAL COURSE 55 year old male admitted from ER for hyponatremia. He presented to ER on 02/05/2021 for worsening pain and weakness of both legs at thigh for last 10 days, poor appetite, vomited x4 today. No diarrhea,but decreased bowel movement also. Had positive COVID test on 01/25/2021 at the clinic. He felt pounding heart beat since yesterday, no chest pain, none at admission. He was sick with cough, sore throat, body ache, loss of smell and taste in the end of November, hissymptoms lasted for about 9 to 10 days, then he was better. He did not tested for COVD then. Sodium corrected with NaCl infusion, CK and D-dimer normalized, and no DVT found. Transient hypokalemia corrected also. His leg strength recovered, and residual slight achiness. Ambulating well. Tolerating diet well. Hyponatremia causes suspected to be multiple, poor oral intake and vomiting likely the main causes, HCTZ and recent viral illness might be contributing, beer intake is likely another causes. HCTZ discontinued during hospital stay, recommend Lisinopril and possible other medication for hypertension treatment. Recommend him to decrease bee drink to 2-3 cans daily, not more. No respiratory symptoms with positive COVID test, COVID directed treatment not given per ID consult. Isolation is not needed since more than 10 days since his positive test date. Recommend him to consider COVID vaccine. He is ready to go home today. He mentioned anxiety problems, he will follow up with his PCP to talk about it. Recheck BMP if deemed proper at follow up. BP 137/87 (BP Location: Right arm;Upper, Patient Position: Sitting) Pulse 87 Temp 36.6 ??C (Temporal) Resp 18 Ht 185.4 cm Wt (!) 149 kg SpO2 97% BMI 43.20 kg/m?? General: Alert, oriented, normal speech, pleasant. Lungs: Clear to auscultation. No wheezing or rales. Heart: Normal sinus rhythm. Normal S1, S2. No murmurs. Abdomen: Soft, nontender. No mass. Extremities: All four extremities have normal range of motion. No lower extremity edema. Neurology: No deficits noticed. Psychiatry: Alert and oriented to time, person and place. Normal affect and stable mood. CONSULTS ORDERED DURING THIS ADMISSION IP CONSULT TO DIETITIAN IP ECONSULT TO INFECTIOUS DISEASE GENERAL IP ECONSULT TO INFECTIOUS DISEASE GENERAL CONDITION AT DISCHARGE improved Discharge instructions were provided to the patient and caregiver(s). [facility] N[facility]SING DIRECTOR documented in this encounter Medications at Time of Discharge Medication Sig Dispensed Refills Start Date End Date atorvastatin (LIPITOR) 20 Take 1 tablet (20 30 tablet 0 05/202002/16/2021 mg tabletIndications: mg total) by mouth Hyperlipidemia at bedtime. DUE FOR ANNUAL EXAM AND MEDICATION CHECK FOR MORE REFILLs. lisinopriL Take 1 tablet (20 30 tablet 0 02/07/2021 021 (PRINIVIL,ZESTRIL) 20 mg mg total) by mouth tablet daily. metoprolol succinate TAKE 1 TABLET(25 90 tablet 3 10/05/2021 (TOPROL-XL) 25 mg 24 hr MG) BY MOUTH DAILY tabletIndications: FOR BLOOD PRESSURE Palpitations ondansetron ODT Take 1 tablet (4 mg 20 tablet 1 01/25/2021 04/03/2021 (ZOFRAN-ODT) 4 mg total) by mouth disintegrating every 8 (eight) tabletIndications: Nausea hours as needed for nausea or vomiting. pantoprazole (PROTONIX) 40 Take 1 tablet (40 90 tablet 3 04/03/2021 mg EC tabletIndications: mg total) by mouth Gastroesophageal Reflux as needed for Disease heartburn. documented as of this encounter Progress Notes Rio Damon M.D. - 02/06/2021 4:40 PM CST SUBJECTIVE Interval History: Patient is feeling much better, he is happy. Would like to go home. I have reviewed the current medication list. OBJECTIVE Admission Weight: (!) 150 kg Current Weight: (!) 148 kg VITAL SIGNS Height: 185.4 cm, Weight: (!) 148 kg, BMI (Calculated): 43.1 kg/m??, Blood Pressure: (!) 152/96, Heart Rate: 97, Pulse Rate: 82, Resp Rate: 18, Temperature: 36.3 ??C, SpO2: 93 % I/O last 3 completed shifts: In: 3240 [P.O.:1240] Out: 450 [Urine:450] I/O this shift: In: 1690 [P.O.:690] Out: - PHYSICAL EXAM General: Alert, oriented, normal speech, pleasant. Lungs: Clear to auscultation. No wheezing or rales. Heart: Normal sinus rhythm. Normal S1, S2. No murmurs. Abdomen: Soft, nontender. No mass. Extremities: All four extremities have normal range of motion. No lower extremity edema. Spine with no deformities. Neurology: No deficits noticed. Psychiatry: Alert and oriented to time, person and place. Normal affect and stable mood. DIAGNOSTICS US Lower Extremity Veins Bilateral Result Date: 02/05/2021 Impression: Negative for Acute DVT. Lab results last 24 hours: Recent Results (from the past 24 hour(s)) Comprehensive Metabolic Panel Collection Time: 02/06/21 7:28 AM Result Value Potassium, P 3.2 (L) Sodium, P 125 (L) Chloride, P 87 (L) Bicarbonate, P 27 Anion Gap, P 11 BUN (Blood Urea Nitrogen), P 12 Creatinine, P 0.61 (L) eGFR-Black/ >90 eGFR Non-Black/ >90 Calcium, Total, P 8.9 Glucose, P 101 Protein, Total, P 6.6 Albumin, P 4.1 Aspartate Aminotransferase (AST), P 86 (H) Alkaline Phosphatase, P 66 Alanine Aminotransferase (ALT), P 62 (H) Bilirubin, Total, P 1.4 (H) CK (Creatine Kinase) Collection Time: 02/06/21 7:28 AM Result Value Creatine Kinase, P 234 D-Dimer Collection Time: 02/06/21 7:28 AM Result Value D-Dimer, P 486 Osmolality Collection Time: 02/06/21 11:00 AM Result Value Osmolality, S 266 (L) Osmolality, Urine Collection Time: 02/06/21 11:25 AM Result Value Osmolality, U 118 (L) Sodium, Random, Urine Collection Time: 02/06/21 11:25 AM Result Value Sodium, Random, U 27 ASSESSMENT / PLAN #1 Hyponatremia Sodium improving, he is improving clinically also. Continue nacl infusion, recheck sodium in the morning. Recommend less beer intake. #2 Acute Lower Respiratory Infection Due To COVID-19 No respiratory symptoms, OID recommended no COVID t=directed treatment. #3 Pain Leg Bilateral Improved. CK and D-dimer [place] today. #4 Pain Low Back Chronic #5 Hypokalemia Potassium supplement. #6 Hypertension Is on Lisinopril/HCTZ 10/12.5 mg from home. Blood pressure fluctuating. HCTZ discontinued due to low sodium. Lisinopril 20 mg daily, increase dose if indicated. Discharge Information: Tomorrow if continue to improve. [facility] DIRECT[facility] Erica Laurent RDN, LD - 02/06/2021 2:17 PM CST Clinical Note Types: Initial Assessment NUTRITION VISIT REASON: Mst-3; weight loss w/o trying, 6-11kg, decreased appetite NUTRITION ASSESSMENT Admitting Diagnosis: hyponatremia, acute lower respiratory infection due to covid19, bilateral leg pain Past Medical History: hypercholesterolemia, hypertension Food and Nutrition Related History Previous Diet: regular diet Oral Intake Prior to Admission: Decrease (reports didn't eat muchfor 3 days) Other: consumed 50% of breakfast and almost 100% of lunch (grilled cheese) mashed potatoes and gravy, peaches, and grapes Weight Change History: Pt reports weightloss of 15 lbs back in november when he had covid, reports that has sinced gained back 10lbs. per EMR, no significant weight loss noted; 148kg (02/06/21), 147kg (01/25/21), 139kg (01/17/21), 13kg (02/13/20) Skin Integrity: No Pressure Ulcers reported per EMR MALNUTRITION ASSESSMENT (does not meet criteria) in the context of based on ASPEN/AND criteria noted below: Weight Loss: No Change Average estimated Intake: No Change Muscle Mass: Normal Body Fat: Normal PERTINENT LABS: Last 3 results Lab Units 02/06/21 0728 02/05/21 1115 POTASSIUM P mmol/L 3.2* 3.7 ANTHROPOMETRICS Height: 185.4 cm Admission Weight: (!) 150 kg Weight: (!) 148 kg ESTIMATED NEEDS: Weight Used for Equation Calculations: 96.8 kg kcal/k-25 Estimated Energy Needs (Low): 2130 kcal/day Estimated Energy Needs (High): 2420 kcal/day Weight Used to Calculate Protein Needs (Kg): 96.8 kg Method to Estimate Protein Needs (g/kg): 0.8 - 1 Estimated Protein Needs (Low): 77 Estimated Protein Needs (High): 97 Dietary Orders (From admission, onward) Start Ordered 02/05/21 1528 Adult Diet Regular; Cardiovascular Diet effective now Question Answer Comment Diet texture: Regular Other restrictions: Cardiovascular 02/05/21 1530 NUTRITION DIAGNOSIS: Inadequate oral intake related to decreased appetite as evidenced by 3 days minimal oral intake NUTRITION PLAN AND INTERVENTIONS: Interventions: None needed (intake improving, continue to monitor) MONITORING AND EVALUATION: Nutrition Monitoring/Evaluation Monitoring: Meals/Supplement Intake [facility] DIRECT[facility] Nai Schrader, Pharm.D., R.Ph. - 02/06/2021 7:54 AM CST Pharmacist Progress Note Reason for admission: Hyponatremia PMH: HTN, GERD, hypercholesterolemia; likely recent history of COVID-19 infection OBJECTIVE Home medications: ?? Held: Hydrochlorothiazide ?? Changed: Scheduled pantoprazole in addition to PRN Patient own medications: N/A Prophylaxis: Enoxaparin 40 mg SQ q12h due to weight >120kg, BMI >40 ASSESSMENT / PLAN 1. Hyponatremia ?? 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 Sodium on admission = 120, today 02/06/21=125 ?? Normal saline infusion ?? Trend BMPs 2. Recent COVID-19 infection ?? Symptoms consistent with COVID-19 infection at the end of November, was not tested at that time for active infection; tested positive for SARS-CoV-2 nucleocapsid antibodies on 01/25/21 ?? Patchy infiltrates noted on CT scan; patient on room air currently and maintaining O2 sats in the90s ?? ID consulted for COVID directed treatment if indicated - awaiting recommendations 3. HTN ?? Continue AUDIO PRODUCTION INSTRUCTOR metoprolol; hold hydrochlorothiazide given hyponatremia; continue lisinopril ?? BPs 152/96-160/97, extra dose of lisinopril scheduled for tonight 4. Hypercholesterolemia ?? Continue AUDIO PRODUCTION INSTRUCTOR atorvastatin; noted CK was elevated on admission (489) but now down to 234 5. GERD ?? Scheduled PPI in addition to PRN Changes to medications anticipated at discharge: TBD Alondra Schrader, Pharm.DNikhil, R.Ph. [facility] DIRECT[facility] documented in this encounter H&P Notes Rio Damon M.D. - 02/05/2021 3:32 PM CST SUBJECTIVE CHIEF COMPLAINT Patient is a 55 y.o. male who presents with leg weakness, pain. HISTORY OF PRESENT ILLNESS 55 year old male admitted from ER for hyponatremia. He presented to ER today for worsening pain and weakness of both legs at thigh for last 10 days, poor appetite, vomited x4 today. No diarrhea, but decreased bowel movement also. Had positive COVID test on 01/25/2021 at the clinic. He felt pounding heart beat since yesterday, no chest pain, none at admission. He was sick with cough, sore throat, body ache, loss of smell and taste in the end of November, hissymptoms lasted for about 9 to 10 days, then he was better. He did not tested for COVD then. He denies cough, shortness of breath today, smell and taste is back. He is a former smoker, drinks alcohol on the weekend, 24 cans of beers in 3 days common for him. he is not vaccinated for COVID. Past Medical History: Diagnosis Date ??? Gastroesophageal Reflux Disease ??? Hypercholesterolemia ??? Hypertension NOS Past Surgical History: Procedure Laterality Date ??? REPAIR OF UMBILICAL HERNIA N/A 04/12/2016 Repair of umbilical hernia ??? VASECTOMY N/A 03/05/2005 Vasectomy The following portions of the patient's history were reviewed and updated as appropriate: allergies,current medications, medical history, social history, surgical history and problem list. REVIEW OF SYSTEMS Pertinent items are noted in HPI; all other review of systems was negative. OBJECTIVE VITAL SIGNS Height: 185.4 cm, Weight: (!) 149 kg, BMI (Calculated): 43.2 kg/m??, Blood Pressure: (!) 126/99, Heart Rate: 97, Pulse Rate: 97, Resp Rate: (!) 26, Temperature: 36.8 ??C, SpO2: 95 % PHYSICAL EXAM General: Alert, oriented, normal speech, pleasant. ENT: Ears with patent canals. Normal tympanic membranes. Nose patent. No sinus tenderness. Neck: Supple, no adenopathy. Normal range of motion. No thyroid enlargement. No mass. Lungs: Clear to auscultation. No wheezing or rales. Heart: Normal sinus rhythm. Normal S1, S2. No murmurs. Abdomen: Soft, nontender. No mass. Normal bowel sounds. Extremities: Upper extremities have normal range of motion. Lower extremities tender at both thighs.No lower extremity edema. Spine with no deformities. Neurology: No deficits noticed. Psychiatry: Alert and oriented to time, person and place. Normal affect and stable mood. DIAGNOSTICS I have reviewed the labs and diagnostics from admission. Recent Results (from the past 24 hour(s)) Troponin T, Baseline, 5th gen Collection Time: 02/05/21 11:15 AM Result Value Troponin T, Baseline, 5th gen 15 S-TSH (Thyroid-Stimulating Hormone - Sensitive) Collection Time: 02/05/21 11:15 AM Result Value TSH, Sensitive, P 0.9 CBC with Differential, Blood Collection Time: 02/05/21 11:15 AM Result Value Hemoglobin 13.1 (L) Hematocrit 35.2 (L) Erythrocytes 3.88 (L) MCV 90.7 RBC Distrib Width 12.1 Platelet Count 166 Leukocytes 6.7 Neutrophils 5.69 Lymphocytes 0.52 (L) Monocytes 0.43 Eosinophils 0.00 (L) Basophils 0.02 Comprehensive Metabolic Panel Collection Time: 02/05/21 11:15 AM Result Value Potassium, P 3.7 Sodium, P 120 (Crit L) Chloride, P 80 (L) Bicarbonate, P 23 Anion Gap, P 17 (H) BUN (Blood Urea Nitrogen), P 13 Creatinine, P 0.62 (L) eGFR-Black/ >90 eGFR Non-Black/ >90 Calcium, Total, P 9.1 Glucose, P 120 Protein, Total, P 7.4 Albumin, P 4.3 Aspartate Aminotransferase (AST), P 124 (H) Alkaline Phosphatase, P 72 Alanine Aminotransferase (ALT), P 81 (H) Bilirubin, Total, P 1.3 (H) D-Dimer Collection Time: 02/05/21 11:15 AM Result Value D-Dimer, P 897 (H) CK (Creatine Kinase) Collection Time: 02/05/21 11:15 AM Result Value Creatine Kinase, P 489 (H) Troponin T, 2H/6H, 5th Gen Collection Time: 02/05/21 1:03 PM Result Value Troponin T, 2 hr, 5th gen 17 (H) 2H Delta 2 2H Delta Interp Not Changing Troponin T, 6 hr, 5th gen CANCELED CT Chest Angiogram and Pulmonary Arteries with IV Contrast Result Date: 02/05/2021 Impression: 1. Negative for acute pulmonary emboli 2. Fatty change in liver 3. Scattered minor patches of atelectasis or infiltrate bilaterally. ECG 12 Lead Result Date: 02/05/2021 Normal sinus rhythm Normal ECG When compared with ECG of 12-NOV-2016 09:07, No significant change was found Reviewed by MICHELLE Mancia ASSESSMENT / PLAN #1 Hyponatremia Regular beer drinker, recent poor oral intake and vomiting. Nacl infusion. Recheck sodium in the morning. #2 Acute Lower Respiratory Infection Due To COVID-19 CT scan with patchy infiltrate, normal O2 sat on RA. No respiratory symptoms today. ID consult for COVID directed treatment or not. #3 Pain Leg Bilateral Presenting symptoms, and CK elevated and low sodium. Normal kidney function. PT evaluation. #4 Pain Low Back Chronic Chronic condition, pain control. [facility] DIRECT[facility] documented in this encounter Consult Notes Tru Mariscal M.D. - 02/06/2021 2:54 PM CSTAssociated Order(s): IP ECONSULT TO INFECTIOUS DISEASE GENERAL; IP ECONSULT TO INFECTIOUS DISEASE GENERAL Consults SUBJECTIVE The patient was not personally interviewed or examined. The history and examination findings are based on the clinical documentation provided and/or discussed with a physician or provider who had personally interviewed and examined the patient. REASON FOR CONSULT Patient is a 55 y.o. male admitted 02/05/2021 for whom infectious diseases is eConsulted for COVID-19 HISTORY OF PRESENT ILLNESS Mr. Murray is a 55-year-old man with a BMI of 43, hypertension who is unvaccinated against COVID-19. The patient had symptoms including loss of taste and smell, cough, sore throat, body aches at theend of November which lasted about a week and a half. He subsequently improved. He was not test forCOVID then. His respiratory symptoms have resolved. The patient however has been hospitalized now with leg weakness and pain. Covid testing was positive. I have viewed the images of the CT chest, thereis no evidence of PE, there are small patchy interstitial infiltrates bilater.ally. The patient is afebrile, there is lymphopenia, CRP is less than three, D-dimer was around 800 on admission, is normal now. He is on room air OBJECTIVE VITAL SIGNS I have reviewed the current vital sign data as applicable. DIAGNOSTICS I have reviewed diagnostics. Studies of note include: ASSESSMENT / PLAN #1 Hyponatremia #2 Acute Lower Respiratory Infection Due To COVID-19 #3 Pain Leg Bilateral #4 Pain Low Back Chronic I think it is most likely that the patient had a COVID infection in late November and we are picking this up now on our testing. The patient is asymptomatic from a pulmonary point of view. I would notrecommend any COVID directed therapy at this time. ID will sign off RECOMMENDATIONS: 1. No COVID directed therapy Tru Mariscal M.D. [facility] documented in this encounter Nursing Notes Maribel Pratt R.N. - 02/07/2021 11:31 AM CST Patient discharged to home. Daughter picked patient up in personal car. IV was removed and vitals were taken. Electronically signed by: Maribel Pratt R.N. 02/07/21 11:31 AM [facility]UNITY HEALTH NURSING DIRECTOR [facility] DIRECT[facility] Maribel Pratt R.N. - 02/07/2021 10:54 AM CST Problem: INFECTION - ADULT Goal: Absence of infection during hospitalization Outcome: Progressing Problem: DISCHARGE PLANNING Goal: Patient discharge needs identified Outcome: Progressing Shift Goals: Clinical Goals for the Shift: Rest, Safety, Pain Management Identify possible barriers to meeting goals/advancing plan of care: Infection End of Shift Summary: Patient was pleasant and cooperative this shift. Is on RA and doing well. Planis to discharge this afternoon to home. Daughter will clam picker. ]Electronically signed by: Maribel Pratt R.N. 02/07/21 10:55 AM COMMUNITY HEALTH NURSING DIRECTOR [facility] DIRECT[facility] Cecily Young R.N. - 02/07/2021 5:27 AM CST Problem: PAIN - ADULT Goal: PT VERBALIZES/DEMONSTRATES ADEQUATE COMFORT LEVEL OR BASELINE Outcome: Progressing Problem: KNOWLEDGE DEFICIT Goal: Patient/family/caregiver demonstrates understanding of disease process, treatment plan, medications, and discharge instructions Outcome: Progressing Problem: INFECTION - ADULT Goal: Absence of infection during hospitalization Outcome: Progressing Problem: SKIN/TISSUE INTEGRITY Goal: Skin/Tissue integrity maintained or improved Outcome: Progressing Goal: Oral and Nasal mucous membranes remain intact Outcome: Progressing Problem: SAFETY ADULT Goal: Maintain a safe environment Outcome: Progressing Problem: DISCHARGE PLANNING Goal: Patient discharge needs identified Outcome: Progressing Problem: POTENTIAL OR ACTUAL PRESSURE INJURY-ADULT Goal: Manage sensory Perception deficits to maintain and/or improve skin integrity Outcome: Progressing Goal: Maintain optimal skin moisture to ensure or improve skin integrity Outcome: Progressing Goal: Achieve optimal activity and/or mobility to maintain or improve skin integrity Outcome: Progressing Goal: Nutrient intake appropriate for improving, restoring or maintaining skin integrity Outcome: Progressing Goal: Minimize friction and/or shear to maintain or improve skin integrity Outcome: Progressing Problem: Compromised Skin Integrity Goal: Skin/Tissue integrity maintained or improved Outcome: Progressing Goal: Oral and Nasal mucous membranes remain intact Outcome: Progressing Goal: Incisions, wounds, or drain sites healing without S/S of infection Outcome: Progressing Problem: Incontinence and/or Moisture Goal: Skin integrity is maintained or improved Outcome: Progressing Problem: SAFETY ADULT - RISK FOR FALL AND OR FALL INJURY Goal: Patient remains free from fall/fall injury Outcome: Progressing Problem: GASTROINTESTINAL - ADULT Goal: Nutrient intake appropriate for improving, restoring or maintaining nutritional needs Outcome: Progressing Shift Goals: Clinical Goals for the Shift: Rest, Safety, Pain Management Identify possible barriers to meeting goals/advancing plan of care: none End of Shift Summary: Pt rested through the night. Pt stated that his legs feel much much better compared to the night before. Pt is able ambulate a lot easier. Pain has been managed with PRN Tramadol which only had once overnight. Fluids are running at 125 mLs per hour. Pt has been on room air. Pt has remained safe from any falls or injuries. Electronically signed by: Cecily Young R.N. 02/07/21 5:31 AM COMMUNITY HEALTH NURSING DIRECTOR [facility] Muriel Garcia R.N. - 02/06/2021 5:41 PM CST Problem: PAIN - ADULT Goal: PT VERBALIZES/DEMONSTRATES ADEQUATE COMFORT LEVEL OR BASELINE Outcome: Progressing Problem: KNOWLEDGE DEFICIT Goal: Patient/family/caregiver demonstrates understanding of disease process, treatment plan, medications, and discharge instructions Outcome: Progressing Problem: INFECTION - ADULT Goal: Absence of infection during hospitalization Outcome: Progressing Problem: SAFETY ADULT Goal: Maintain a safe environment Outcome: Progressing Problem: DISCHARGE PLANNING Goal: Patient discharge needs identified Outcome: Progressing Problem: POTENTIAL OR ACTUAL PRESSURE INJURY-ADULT Goal: Manage sensory Perception deficits to maintain and/or improve skin integrity Outcome: Progressing Shift Goals: Clinical Goals for the Shift: Stay safe with ambulation, controlled pain. Identify possible barriers to meeting goals/advancing plan of care: None. End of Shift Summary: Patient remained safe during shift and call light appropriate. COVID precautions followed. Patient tolerated PO intake, was able to eat 75% or more of all his meals. VSS. Potassium 3.2, replaced per electrolyte replacement protocol-see MAR. Sodium up to 125 from 120. Electronically signed by: Muriel Garcia R.N. 02/06/21 5:45 PM [facility]ITY [facility] NURSING DIRECTOR [facility] Cecily Young R.N. - 02/06/2021 5:30 AM CST Shift Goals: Clinical Goals for the Shift: Monitor O2, Rest, Pain Management Identify possible barriers to meeting goals/advancing plan of care: none End of Shift Summary: Pt stated that he did not fall asleep until around 1230. Autopsy Pathologist did get a verbal order from the overnight provider for 3 mg of Melatonin but per pt, it did not help very much. Pt has been on room air. VSS. Pain for lower extremities has been managed with Tramadol Q6 and Tylenol. Pt has been call light appropriate. Electronically signed by: Cecily Young R.N. 02/06/21 5:32 AM COMMUNITY HEALTH NURSING DIRECTOR [facility] Jessica Zapien R.N. - 02/05/2021 5:39 PM CST Problem: PAIN - ADULT Goal: PT VERBALIZES/DEMONSTRATES ADEQUATE COMFORT LEVEL OR BASELINE Outcome: Progressing Problem: KNOWLEDGE DEFICIT Goal: Patient/family/caregiver demonstrates understanding of disease process, treatment plan, medications, and discharge instructions Outcome: Progressing Problem: INFECTION - ADULT Goal: Absence of infection during hospitalization Outcome: Progressing Problem: SKIN/TISSUE INTEGRITY Goal: Skin/Tissue integrity maintained or improved Outcome: Progressing Goal: Oral and Nasal mucous membranes remain intact Outcome: Progressing Problem: SAFETY ADULT Goal: Maintain a safe environment Outcome: Progressing Problem: DISCHARGE PLANNING Goal: Patient discharge needs identified Outcome: Progressing Problem: POTENTIAL OR ACTUAL PRESSURE INJURY-ADULT Goal: Manage sensory Perception deficits to maintain and/or improve skin integrity Outcome: Progressing Goal: Maintain optimal skin moisture to ensure or improve skin integrity Outcome: Progressing Goal: Achieve optimal activity and/or mobility to maintain or improve skin integrity Outcome: Progressing Goal: Nutrient intake appropriate for improving, restoring or maintaining skin integrity Outcome: Progressing Goal: Minimize friction and/or shear to maintain or improve skin integrity Outcome: Progressing Problem: Compromised Skin Integrity Goal: Skin/Tissue integrity maintained or improved Outcome: Progressing Goal: Oral and Nasal mucous membranes remain intact Outcome: Progressing Goal: Incisions, wounds, or drain sites healing without S/S of infection Outcome: Progressing Problem: Incontinence and/or Moisture Goal: Skin integrity is maintained or improved Outcome: Progressing Problem: SAFETY ADULT - RISK FOR FALL AND OR FALL INJURY Goal: Patient remains free from fall/fall injury Outcome: Progressing Shift Goals: Clinical Goals for the Shift: monitor Na, monitor palpatations Identify possible barriers to meeting goals/advancing plan of care: leg pain End of Shift Summary: Patient is AOx3 and VSS. Patient has complained of pain in bilateral LE pain which has been treated with tylenol and tramadol. Patient came form the ED today with increased weakness, labs were drawn and came back hyponatremic with Na at 120. Patient is getting NC 150 ml/hr to treat Na. Patient got US on lower extremities to rule out DVTs, se results for further information. No further updates at thistime, nursing will continue to monitor. Electronically signed by: Jo Ann Zapien R.N. 02/05/21 5:42 PM COMMUNITY HEALTH NURSING DIRECTOR [facility] DIRECT[facility] documented in this encounter ED Notes Efe Childress D.O. - 02/05/2021 10:49 AM CST SUBJECTIVE CHIEF COMPLAINT/REASON FOR VISIT Palpitations (Pt presents for eval of otf LE weakness and feelings of heart pounding Palpitations started yesterday, LE weakness started about 10 days ago. +Covid test 01/25 but had sx for one month prior) HISTORY OF PRESENT ILLNESS He presents to the emergency department for tachycardia and weakness. He states he started feeling ill with upper respiratory symptoms at the end of November, but was not tested at that time. Or recently he was seen 1.5 weeks ago in clinic by Dr. Boyle for weakness and low back pain. He tested positive for COVID at that time. He now has noticed increased tachycardia starting yesterday. He has also had pain in his thighs and leg weakness for about the last 10 days. This morning he vomited about 3 or 4 times. He also has a headache currently. He states the weakness got to the point to where he did even shower the last few days. REVIEW OF SYSTEMS Constitutional: Positive for fatigue. Negative for chills and fever. HENT: Negative for congestion. Eyes: Negative for photophobia and visual disturbance. Respiratory: Negative for chest tightness and shortness of breath. Cardiovascular: Positive for palpitations. Genitourinary: Negative for dysuria and frequency. Musculoskeletal: Positive for extremity pain. Negative for back pain. Skin: Negative for rash. Neurological: Positive for weakness. OBJECTIVE Initial Vitals Temperature Pulse Heart Rate Resp Rate Blood Pressure SpO2 02/05/21 1050 -- 02/05/21 1050 02/05/21 1050 02/05/21 1050 02/05/21 1050 36.1 ??C 102 20 (!) 153/91 97 % Pain Score 02/05/21 1101 0 - No pain PHYSICAL EXAMINATION Constitutional: Nursing note and vitals reviewed. No distress. HENT: Head: Atraumatic. Nose: Nose normal. Mouth/Throat: Oropharynx is clear and moist. Mucous membranes are moist. Eyes: Conjunctivae and EOM are normal. Neck: Neck supple. Cardiovascular: Normal rate, regular rhythm and normal heart sounds. Pulses are strong and palpable.Capillary refill: takes less than 3 seconds, Pulmonary/Chest: Effort normal and breath sounds normal. No stridor. No respiratory distress. Decreased air movement is present. He has no wheezes. He has no rhonchi. He has no rales. Abdominal: Soft. Bowel sounds are normal. There is no abdominal tenderness. Musculoskeletal: General: Normal range of motion. Cervical back: Neck supple. Neurological: Alert and oriented to person, place, and time. Skin: Skin is warm and dry. Psychiatric: He has a normal mood and affect. ASSESSMENT/PLAN IMPRESSION AND PLAN He presents emergency department for increasing weakness as well as vomiting this morning. He was found to be severely hyponatremic. Fortunately the CT scan was negative for pulmonary embolism. He was treated with 1 liter 0.9 normal saline IV on arrival with his tachycardia and then was put on a rate of 150 milliliters an hour. He will be admitted to hospitalist service for further management of hyponatremia. As his D-dimer was elevated and he has the leg pain ultrasound of the lower extremities wasadded prior to the admission. I reviewed previous medical records including EKG images/reports. I personally reviewed the lab result(s) and my interpretation is documented in ED Course. I personally reviewed the radiology image(s). The Radiology exam interpretation(s) is/are documentedin ED Course. I independently reviewed the ECG tracing and my interpretation is documented in ED Course. Case reviewed with other health mall plant caretaker, including Admitting Provider. CT Chest Angiogram and Pulmonary Arteries with IV Contrast Result Date: 02/05/2021 Impression: 1. Negative for acute pulmonary emboli 2. Fatty change in liver 3. Scattered minor patches of atelectasis or infiltrate bilaterally. ECG 12 Lead Result Date: 02/05/2021 Normal sinus rhythm Normal ECG When compared with ECG of 12-NOV-2016 09:07, No significant change was found Reviewed by MICHELLE Mancia ED Course as of 02/05/21 1344 FriFeb 05, 2021 1134 CBC with Differential, Blood(!): Hemoglobin 13.1(!) Hematocrit 35.2(!) Erythrocytes 3.88(!) MCV 90.7 RBC Distrib Width 12.1 Platelet Count 166 White Blood Cell Count 6.7 Neutrophils 5.69 Lymphocytes 0.52(!) Monocytes 0.43 Eosinophils 0.00(!) Basophils 0.02 1134 D-Dimer(!): D-Dimer, P 897(!) 1139 CK (Creatine Kinase)(!): Creatine Kinase, P 489(!) 1139 Comprehensive Metabolic Panel(!): Potassium, P 3.7 Bicarbonate, P 23 BUN (Blood Urea Nitrogen), P 13 Creatinine, P 0.62(!) eGFR-Black/ >90 eGFR Non-Black/ >90 Calcium, Total, P 9.1 Glucose, P 120 Protein, Total, P 7.4 Albumin, P 4.3 Aspartate Aminotransferase (AST), P 124(!) Alkaline Phosphatase, P 72 Alanine Aminotransferase (ALT), P 81(!) Bilirubin, Total, P 1.3(!) 1141 Troponin T, Baseline, 5th gen: Troponin T, Baseline, 5th gen 15 1336 Troponin T, 2H/6H, 5th Gen(!): Troponin T, 2 hr, 5th gen 17(!) 2H Delta 2 2H Delta Interp Not Changing Troponin T, 6 hr, 5th gen CANCELED Final Diagnoses: as of 02/05/21 1344 Hyponatremia COVID-19 Infection Efe Childress D.O. 02/05/21 1346 Efe Childress D.O. 02/05/21 1347 [facility] documented in this encounter Miscellaneous Notes Hospital Course - Rio Damon M.D. - 02/07/2021 7:53 AM CST 55 year old male admitted from ER for hyponatremia. He presented to ER on 02/05/2021 for worsening pain and weakness of both legs at thigh for last 10 days, poor appetite, vomited x4 today. No diarrhea,but decreased bowel movement also. Had positive COVID test on 01/25/2021 at the clinic. He felt pounding heart beat since yesterday, no chest pain, none at admission. He was sick with cough, sore throat, body ache, loss of smell and taste in the end of November, hissymptoms lasted for about 9 to 10 days, then he was better. He did not tested for COVD then. Sodium corrected with NaCl infusion, CK and D-dimer normalized, and no DVT found. Transient hypokalemia corrected also. His leg strength recovered, and residual slight achiness. Ambulating well. Tolerating diet well. Hyponatremia causes suspected to be multiple, poor oral intake and vomiting likely the main causes, HCTZ and recent viral illness might be contributing, beer intake is likely another causes. HCTZ discontinued during hospital stay, recommend Lisinopril and possible other medication for hypertension treatment. Recommend him to decrease bee drink to 2-3 cans daily, not more. No respiratory symptoms with positive COVID test, COVID directed treatment not given per ID consult. Isolation is not needed since more than 10 days since his positive test date. Recommend him to consider COVID vaccine. He is ready to go home today. He mentioned anxiety problems, he will follow up with his PCP to talk about it. Recheck BMP if deemed proper at follow up. BP 137/87 (BP Location: Right arm;Upper, Patient Position: Sitting) Pulse 87 Temp 36.6 ??C (Temporal) Resp 18 Ht 185.4 cm Wt (!) 149 kg SpO2 97% BMI 43.20 kg/m?? General: Alert, oriented, normal speech, pleasant. Lungs: Clear to auscultation. No wheezing or rales. Heart: Normal sinus rhythm. Normal S1, S2. No murmurs. Abdomen: Soft, nontender. No mass. Extremities: All four extremities have normal range of motion. No lower extremity edema. Neurology: No deficits noticed. Psychiatry: Alert and oriented to time, person and place. Normal affect and stable mood. [facility] documented in this encounter Plan of Treatment Upcoming Encounters Date Type Specialty Care Team Description 02/15/2022 Office Visit Orthopedic Surgery Madyson Rosa D.ONikhil [address] [place], [place] [phone] (Wo rk) documented as of this encounter Procedures Procedure Name Priority Date/Time Associated Comments Diagnosis COMPREHENSIVE Routine 02/07/2021 6:22 Results for METABOLIC PANEL, S/P AM [facility] HEALTH NURSING DIRECTOR this pr ocedure are in the results section. SODIUM, RANDOM, U Routine 02/06/2021 11:25 Result s for AM [facility] HEALTH NURSING DIRECTOR this procedure are in the results section. OSMOLALITY, U Routine 02/06/2021 11:25 Results fo r AM COMM[facility] HEALTH NURSING DIRECTOR this procedure are in the results section. OSMOLALITY, S Routine 02/06/2021 11:00 Results fo r AM COMM[facility] HEALTH NURSING DIRECTOR this procedure are in the results section. PULSE OXIMETRY, STAT 02/06/2021 8:01 CONTINUOUS AM [facility] NURSING DIRECTOR MAGNESIUM, S Routine 02/06/2021 7:38 Results for AM COMM[facility]ITY HEALTH NURSING DIRECTOR this procedure are in the results section. D-DIMER, P Routine 02/06/2021 7:28 Results for AM COMM[facility] HEALTH NURSING DIRECTOR this procedure are in the results section. CREATINE KINASE Routine 02/06/2021 7:28 Results f or (CK), S AM COMM[facility] HEALTH NURSING DIRECTOR this procedure are in the results section. COMPREHENSIVE Routine 02/06/2021 7:28 Results for METABOLIC PANEL, S/P AM [facility] HEALTH NURSING DIRECTOR this pr ocedure are in the results section. PULSE OXIMETRY, STAT 02/05/2021 8:01 CONTINUOUS PM COMMUNITY HEALTH NURSING DIRECTOR US LOWER EXTREMITY RAD - Semiurgent 02/05/2021 5:26 Re sults for VEINS BILATERAL (Fast; most ED PM COMM[facility] HEALTH NURSING DIRECTOR this proce dure patients; some are in the inpatients) results section. TROPONIN T, 2H/6H, Timed 02/05/2021 1:03 Result s for 5TH GEN, P PM [facility] NURSING DIRECTOR this procedure are in the results section. C-REACTIVE PROTEIN Routine 02/05/2021 1:02 Result s for (CRP), S/P PM [facility] HEALTH NURSING DIRECTOR this procedure are in the results section. CT CHEST ANGIOGRAM RAD - Semiurgent 02/05/2021 11:48 R esults for AND PULMONARY (Fast; most ED AM COMM[facility]ITY HEALTH NURSING DIRECTOR this procedu re ARTERIES WITH IV patients; some are in th e CONTRAST inpatients) results section. TROPONIN T, STAT 02/05/2021 11:15 Results for BASELINE, 5TH GEN, P AM [facility] HEALTH NURSING DIRECTOR this pr ocedure are in the results section. D-DIMER, P STAT 02/05/2021 11:15 Results for AM COMM[facility] HEALTH NURSING DIRECTOR this procedure are in the results section. CBC WITH STAT 02/05/2021 11:15 Results for DIFFERENTIAL, B AM COMM[facility] HEALTH NURSING DIRECTOR this procedu re are in the results section. THYROID-STIMULATING STAT 02/05/2021 11:15 Resu lts for HORMONE-SENSITIVE AM [facility] NURSING DIRECTOR this proce dure (S-TSH) are in the results section. CREATINE KINASE STAT 02/05/2021 11:15 Results for (CK), S AM COMM[facility] HEALTH NURSING DIRECTOR this procedure are in the results section. COMPREHENSIVE STAT 02/05/2021 11:15 Results fo r METABOLIC PANEL, S/P AM [facility] NURSING DIRECTOR this pr ocedure are in the results section. ECG STAT 02/05/2021 11:08 Results for AM COMM[facility] HEALTH NURSING DIRECTOR this procedure are in the results section. PULSE OXIMETRY, STAT 02/05/2021 11:01 CONTINUOUS AM [facility] NURSING DIRECTOR PULSE OXIMETRY, STAT 02/05/2021 11:01 CONTINUOUS AM [facility] NURSING DIRECTOR PULSE OXIMETRY, STAT 02/05/2021 11:01 CONTINUOUS AM [facility] NURSING DIRECTOR documented in this encounter Results (ABNORMAL) Comprehensive Metabolic Panel (02/07/2021 6:22 AM COMMUNITY HEALTH NURSING DIRECTOR) P athologist Signature Potassium, P 3.9 3.6 - 5.2 02/07/2021 [facility] mmol/L 7:17 AM [facility] HEALTH NURSING DIRECTOR Sodium, P 136 135 - 145 02/07/2021 [facility] mmol/L 7:17 AM [facility]ALTH NURSING DIRECTOR Chloride, P 97 (L) 98 - 107 02/07/2021 [facility] mmol/L 7:17 AM [facility] HEALTH NURSING DIRECTOR Bicarbonate, P 30 (H) 22 - 29 02/07/2021 [facility] mmol/L 7:17 AM [facility]ALTH NURSING DIRECTOR Anion Gap, P 9 7 - 15 02/07/2021 [facility] 7:17 AM [facility]ALTH NURSING DIRECTOR BUN (Blood Urea 10 8 - 24 02/07/2021 [facility] Nitrogen), P mg/dL 7:17 AM [facility] NURSING DIRECTOR Creatinine 0.75 0.74 - 02/07/2021 [facility] 1.35 mg/dL 7:17 AM [facility] HEALTH NURSING DIRECTOR eGFR-Black/Afri >90 >=60 02/07/2021 [facility] can Eritrean mL/min/BSA 7:17 AM [facility] HEALTH NURSING DIRECTOR Comment: ----ADDITIONAL INFORMATION---- Estimated GFR calculated using the 2009 CKD_EPI creatinine equation. eGFR Non-Black/ >90 >=60 mL/min/BSA 02/07/2021 7:17 AM COMM[facility]ITY HEALTH NURSING DIRECTOR [facility] Comment: ----ADDITIONAL INFORMATION---- Estimated GFR calculated using the 2009 CKD_EPI creatinine equation. Calcium, Total, P 9.3 8.6 - 10.0 mg/dL 02/07/2021 7:17 AM [facility] HEALTH NURSING DIRECTOR [facility] Glucose, P 103 70 - 140 mg/dL 02/07/2021 7:17 AM COMM[facility]ITY HEALTH NURSING DIRECTOR N PRG Protein, Total, P 6.7 6.3 - 7.9 g/dL 02/07/2021 7:17 A M COMM[facility] HEALTH NURSING DIRECTOR [facility] Albumin, P 4.1 3.5 - 5.0 g/dL 02/07/2021 7:17 AM COMM[facility]ITY HEALTH NURSING DIRECTOR N PRG Aspartate Aminotransferase 68 (H) 8 - 48 U/L 02/07/2021 7 :17 AM [facility] HEALTH NURSING DIRECTOR [facility] (AST), P Alkaline Phosphatase, P 67 40 - 129 U/L 02/07/2021 7: 17 AM [facility]ALTH NURSING DIRECTOR [facility] Alanine Aminotransferase 52 7 - 55 U/L 02/07/2021 7:1 7 AM [facility] HEALTH NURSING DIRECTOR [facility] (ALT), P Bilirubin, Total, P 0.9 <=1.2 mg/dL 02/07/2021 7:17 AM [facility]ITY HEALTH NURSING DIRECTOR [facility] Specimen Anatomical Collection Method Collection Time Receive d Time (Source) Location / / Volume Laterality Blood (Blood, 02/07/2021 6:22 AM 02/08/20 6:52 Venous) [facility] NURSING DIRECTOR AM [facility] NURSING DIRECTOR Rio Damon M.D. LAB BLOOD ADD-ON Performing Organization Address City/State/ZIP Code Phon e Number [facility]- [address] [place], [place] [address] [place] [address] Sodium, Random, Urine (02/06/2021 11:25 AM COMMUNITY HEALTH NURSING DIRECTOR) P athologist Signature Sodium, Random, 27 mmol/L 02/06/2021 [facility] U 12:43 PM COMM[facility]ITY HEALTH NURSING DIRECTOR Comment: ----REFERENCE VALUE---- Random urine sodium may be interpreted i n conjunction with serum sodium, using both values to calculate fractional excretion of sodium. Specimen Anatomical Collection Method Collection Time Receive d Time (Source) Location / / Volume Laterality Urine (Urine, 02/06/2021 11:25 02/06/2021 Midstream) AM [facility] HEALTH NURSING DIRECTOR 11:36 AM [facility] NURSING DIRECTOR Rio Damon M.D. LAB URINE ORDERABLES Performing Organization Address City/[facility]/ZIP Code Phon e Number [address] [address] [facility] [place] [phone] [address] (ABNORMAL) Osmolality, Urine (02/06/2021 11:25 AM COMMUNITY HEALTH NURSING DIRECTOR) athologist Signature Osmolality, U 118 (L) 150 - 1150 02/06/2021 [facility] mOsm/kg 3:38 PM [facility] NURSING DIRECTOR Specimen Anatomical Collection Method Collection Time Receive d Time (Source) Location / / Volume Laterality Urine (Urine, 02/06/2021 11:25 02/06/2021 2:45 Clean Catch) AM [facility] HEALTH NURSING DIRECTOR PM [facility] NURSING DIRECTOR Rio Damon M.D. LAB URINE ORDERABLES Performing Organization Address City/[facility]/ZIP Code Phon e Number [facility]- [address] [place] [phone] [place] [address] [address] (ABNORMAL) Osmolality (02/06/2021 11:00 AM COMM[facility]ITY HEALTH NURSING DIRECTOR) athologist Signature Osmolality, S 266 (L) 276 - 306 02/06/2021 [facility] mOsm/kg 3:35 PM [facility] HEALTH NURSING DIRECTOR Specimen Anatomical Collection Method Collection Time Receive d Time (Source) Location / / Volume Laterality Blood (Blood, 02/06/2021 11:00 02/06/2021 2:48 Venous) AM [facility] HEALTH NURSING DIRECTOR PM [facility] NURSING DIRECTOR Rio Damon M.D. LAB BLOOD ADD-ON Performing Organization Address City/[facility]/ZIP Code Phon e Number [facility]- [address] [place] [address] [facility] [place] [address] System in [place] [address] [facility] (ABNORMAL) Magnesium (02/06/2021 7:38 AM COMMUNITY HEALTH NURSING DIRECTOR) P athologist Signature Magnesium, P 1.6 (L) 1.7 - 2.3 02/06/2021 [facility] mg/dL 5:53 PM COMM[facility]ITY HEALTH NURSING DIRECTOR Specimen Anatomical Collection Method Collection Time Receive d Time (Source) Location / / Volume Laterality Blood (Blood, 02/06/2021 7:38 AM 02/07/20 5:36 Venous) [facility]ALTH NURSING DIRECTOR PM [facility] NURSING DIRECTOR Rio Damon M.D. LAB BLOOD ADD-ON Performing Organization Address City/[facility]/ZIP Code Phon e Number [place] [address] D-Dimer (02/06/2021 7:28 AM COMMUNITY HEALTH NURSING DIRECTOR) P athologist Signature D-Dimer, P 486 <=500 ng/mL 02/06/2021 [facility] FEU 7:52 AM [facility]ITY HEALTH NURSING DIRECTOR Comment: ----ADDITIONAL INFORMATION---- D-dimer values less than or equal to 500 ng/mL fibrinogen equivalent units (FEU) may be used in co njunction with clinical pre-test probability to exclude deep vein thrombosis (DVT) and/or pulmonary emboli sm (PE). Specimen Anatomical Collection Method Collection Time Receive d Time (Source) Location / / Volume Laterality Blood (Blood, 02/06/2021 7:28 AM 02/07/20 7:52 Venous) [facility] NURSING DIRECTOR AM [facility] NURSING DIRECTOR Rio Damon M.D. LAB BLOOD ADD-ON Performing Organization Address City/[facility]/ZIP Code Phon e Number [place] [address] [place] [phone] [facility] [place] [phone] CK (Creatine Kinase) (02/06/2021 7:28 AM COMMUNITY HEALTH NURSING DIRECTOR) P athologist Signature Creatine 234 39 - 308 02/06/2021 [facility] Kinase, P U/L 8:05 AM [facility] HE[facility] NURSING DIRECTOR Specimen Anatomical Collection Method Collection Time Receive d Time (Source) Location / / Volume Laterality Blood (Blood, 02/06/2021 7:28 AM 02/07/20 8:05 Venous) [facility] NURSING DIRECTOR AM [facility] NURSING DIRECTOR Rio Damon M.D. LAB BLOOD ADD-ON Performing Organization Address City/State/ZIP Code Phon e Number [facility]- [address] [place], [place] [address] [facility] [address] (ABNORMAL) Comprehensive Metabolic Panel (02/06/2021 7:28 AM COMM[facility]ITY HEALTH NURSING DIRECTOR) Analysis Performed At Patho logist Time Signature Potassium, P 3.2 (L) 3.6 - 5.2 02/06/2021 [facility] mmol/L 8:05 AM [facility] NURSING DIRECTOR Sodium, P 125 (L) 135 - 145 02/06/2021 [facility] mmol/L 8:05 AM [facility] NURSING DIRECTOR Chloride, P 87 (L) 98 - 107 02/06/2021 [facility] mmol/L 8:05 AM [facility] NURSING DIRECTOR Bicarbonate, P 27 22 - 29 02/06/2021 [facility] mmol/L 8:05 AM [facility] NURSING DIRECTOR Anion Gap, P 11 7 - 15 02/06/2021 [facility] 8:05 AM [facility]ALTH NURSING DIRECTOR BUN (Blood Urea 12 8 - 24 02/06/2021 [facility] Nitrogen), P mg/dL 8:05 AM [facility] NURSING DIRECTOR Creatinine 0.61 (L) 0.74 - 02/06/2021 [facility] 1.35 mg/dL 8:05 AM [facility] HEALTH NURSING DIRECTOR eGFR-Black/Afri >90 >=60 02/06/2021 [facility] can Eritrean mL/min/BSA 8:05 AM [facility] NURSING DIRECTOR Comment: ----ADDITIONAL INFORMATION---- Estimated GFR calculated using the 2009 CKD_EPI creatinine equation. eGFR Non-Black/ >90 >=60 mL/min/BSA 02/06/2021 8:05 AM COMM[facility] HEALTH NURSING DIRECTOR [facility] Comment: ----ADDITIONAL INFORMATION---- Estimated GFR calculated using the 2009 CKD_EPI creatinine equation. Calcium, Total, P 8.9 8.6 - 10.0 mg/dL 02/06/2021 8:05 AM [facility]ALTH NURSING DIRECTOR [facility] Glucose, P 101 70 - 140 mg/dL 02/06/2021 8:05 AM COMMUNITY HEALTH NURSING DIRECTOR N PRG Protein, Total, P 6.6 6.3 - 7.9 g/dL 02/06/2021 8:05 A M COMM[facility] HEALTH NURSING DIRECTOR [facility] Albumin, P 4.1 3.5 - 5.0 g/dL 02/06/2021 8:05 AM COMMUNITY HEALTH NURSING DIRECTOR N PRG Aspartate Aminotransferase 86 (H) 8 - 48 U/L 02/06/2021 8 :05 AM COMM[facility]ITY HEALTH NURSING DIRECTOR [facility] (AST), P Alkaline Phosphatase, P 66 40 - 129 U/L 02/06/2021 8: 05 AM COMM[facility] HEALTH NURSING DIRECTOR [facility] Alanine Aminotransferase 62 (H) 7 - 55 U/L 02/06/2021 8:0 5 AM COMM[facility] HEALTH NURSING DIRECTOR [facility] (ALT), P Bilirubin, Total, P 1.4 (H) <=1.2 mg/dL 02/06/2021 8:05 AM COMM[facility] HEALTH NURSING DIRECTOR [facility] Specimen Anatomical Collection Method Collection Time Receive d Time (Source) Location / / Volume Laterality Blood (Blood, 02/06/2021 7:28 AM 02/07/20 8:05 Venous) COMMUNITY HEALTH NURSING DIRECTOR AM COMMUNITY HEALTH NURSING DIRECTOR Rio Damon M.D. LAB BLOOD ADD-ON Performing Organization Address City/State/ZIP Code Phon e Number [facility]- [address] [place] [address] 1 [place] [address] [place] Lower Extremity Veins Bilateral (02/05/2021 5:26 PM COMMUNITY HEALTH NURSING DIRECTOR) Anatomical Region Laterality Modality Lower Extremity, Ultrasound RST LOS, Ultrasound ARZ LOS, Otf ateral Ultrasound Ultrasound FLA LOS Specimen (Source) Anatomical Collection Method Collection Time Re ceived Time Location / / Volume Laterality 02/05/2021 5:28 PM COMMUNITY HEALTH NURSING DIRECTOR Impressions 02/05/2021 5:29 PM COMMUNITY HEALTH NURSING DIRECTOR Negative for Acute DVT. Narrative 02/05/2021 5:29 PM COMMUNITY HEALTH NURSING DIRECTOR EXAM: US LOWER EXTREMITY VEINS BILATERAL Exam performed with color and spectral D oppler analysis. COMPARISON: None. Right Lower Extremity: Common Femoral Vein: Negative. Profunda Femoral Vein: Negative. Femoral Vein: Negative. Popliteal Vein: Negative. Gastrocnemius Veins: Negative where seen . Soleal Veins: Negative where seen. Posterior Tibial Veins: Negative where s een. Peroneal Veins: Negative where seen. Great Saphenous Vein: Negative where see n. Small Saphenous Vein: Not Evaluated. Popliteal Fossa: Negative. Left Lower Extremity: Common Femoral Vein: Negative. Profunda Femoral Vein: Negative. Femoral Vein: Negative. Popliteal Vein: Negative. Gastrocnemius Veins: Negative where seen . Soleal Veins: Negative where seen. Posterior Tibial Veins: Negative where s een. Peroneal Veins: Negative where seen. Great Saphenous Vein: Negative where see n. Small Saphenous Vein: Not Evaluated. Popliteal Fossa: Negative. Procedure Note Marcell Sarah M.D. - 02/05/2021Formattin g of this note might be different from the original. EXAM: US LOWER EXTREMITY VEINS BILATERAL Exam performed with color and spectral D oppler analysis. COMPARISON: None. Right Lower Extremity: Common Femoral Vein: Negative. Profunda Femoral Vein: Negative. Femoral Vein: Negative. Popliteal Vein: Negative. Gastrocnemius Veins: Negative where seen . Soleal Veins: Negative where seen. Posterior Tibial Veins: Negative where s een. Peroneal Veins: Negative where seen. Great Saphenous Vein: Negative where see n. Small Saphenous Vein: Not Evaluated. Popliteal Fossa: Negative. Left Lower Extremity: Common Femoral Vein: Negative. Profunda Femoral Vein: Negative. Femoral Vein: Negative. Popliteal Vein: Negative. Gastrocnemius Veins: Negative where seen . Soleal Veins: Negative where seen. Posterior Tibial Veins: Negative where s een. Peroneal Veins: Negative where seen. Great Saphenous Vein: Negative where see n. Small Saphenous Vein: Not Evaluated. Popliteal Fossa: Negative. IMPRESSION: Negative for Acute DVT. Rio Damon M.D. IMG US PROCEDURES (ABNORMAL) Troponin T, 2H/6H, 5th Gen (02/05/2021 1:03 PM COMMUNITY HEALTH NURSING DIRECTOR) P athologist Signature Troponin T, 2 17 (H) <=15 ng/L 02/05/2021 [facility] hr, 5th gen 1:25 PM COMMUNITY HEALTH NURSING DIRECTOR Comment: Biotin has been identified by the alexis huang as a potential interfering substance. ??Higher concentr ations of biotin may be found in multivitamins, hair/nail supple ments, and workout supplements. ??If the result does not [facility] clinical [facility], repeat testing after patient refrains fr om the use of supplements for at least 12 hours. 2H Delta 2 ng/L 02/05/2021 1:25 PM COMMUNITY HEALTH NURSING DIRECTOR [facility] 2H Delta Interp Not Changing 02/05/2021 1:25 PM CS T NPR[facility] Troponin T, 6 hr, 5th gen CANCELED ng/L 02/05/2021 1:2 5 PM COMMUNITY HEALTH NURSING DIRECTOR [facility] Comment: Result canceled by the ancillar y. Specimen Anatomical Collection Method Collection Time Receive d Time (Source) Location / / Volume Laterality Blood (Blood, 02/05/2021 1:03 PM 02/06/20 1:06 Venous) COMMUNITY HEALTH NURSING DIRECTOR PM COMMUNITY HEALTH NURSING DIRECTOR Narrative [facility] - 02/05/2021 1:25 PM COMMUNITY HEALTH NURSING DIRECTOR Specimen Information: Specimen ID: [id number] Specimen Type: Blood Specimen Collection Start Date: 02/06/20 ??1:03 PM Specimen Received Date: 02/05/2021 ??1:0 6 PM Specimen ID: [id number] Specimen Type: Blood Efe Childress D.O. LAB BLOOD TROPONIN Performing Organization Address [facility] Phon e Number [address] LAB [address] CRP (C-Reactive Protein) (02/05/2021 1:02 PM COMMUNITY HEALTH NURSING DIRECTOR) P athologist Signature C-Reactive <3.0 <=8.0 mg/L 02/05/2021 [facility] Protein (CRP), 4:31 PM COMMUNITY HEALTH NURSING DIRECTOR P Specimen Anatomical Collection Method Collection Time Receive d Time (Source) Location / / Volume Laterality Blood (Blood, 02/05/2021 1:02 PM 02/06/20 3:57 Venous) COMMUNITY HEALTH NURSING DIRECTOR PM COMMUNITY HEALTH NURSING DIRECTOR Rio Damon M.D. LAB BLOOD ADD-ON Performing Organization Address City/[facility]/ZIP [facility] Phon e Number [place] [phone] 1 [place] [address] Chest Angiogram and Pulmonary Arteries with IV Contrast (02/05/2021 11:48 AM COMMUNITY HEALTH NURSING DIRECTOR) Anatomical Region Laterality Modality Chest, Cardiovascular RST LOS, Thoracic ARZ LOS, N/A Computed Tomography Thoracic FLA LOS Specimen (Source) Anatomical Collection Method Collection Time Re ceived Time Location / / Volume Laterality 02/05/2021 12:13 PM COMMUNITY HEALTH NURSING DIRECTOR Impressions 02/05/2021 1:04 PM COMMUNITY HEALTH NURSING DIRECTOR 1. ??Negative for acute pulmonary emboli 2. ??Fatty change in liver 3. ??Scattered minor patches of atelecta sis or infiltrate bilaterally. Narrative 02/05/2021 1:04 PM COMMUNITY HEALTH NURSING DIRECTOR EXAM: CT CHEST ANGIOGRAM AND PULMONARY ARTERIES WITH IV CONTRAST 3D/MIPS: Including 3D image post-process ing . COMPARISON: Plain film of 02/12/2019 FINDINGS: PULMONARY ARTERIES: ? Negative for acute pulmonary embolus. LUNGS AND LARGE AIRWAYS: ?Scattered minor patches of atelectasis or early infiltrate are identified. Calcified gra nuloma in the right base is identified. PLEURA: ?Negative HEART AND PERICARDIUM: ? Negat angela MEDIASTINUM AND PABLO: ?Calcified right hilar and mediastinal lymph nodes are seen. CHEST WALL AND LOWER NECK: Negative VESSELS: ? Negative BONES: ?Negative VISUALIZED UPPER ABDOMEN: Marked fatty c hange in the liver is demonstrated. No focal mass is seen. Splenic calcified gr anulomas are present. OTHER: ?None Procedure Note Stoney Jensen M.D. - 02/05/2021Forma tting of this note might be different from the original. EXAM: CT CHEST ANGIOGRAM AND PULMONARY A RTERIES WITH IV CONTRAST 3D/MIPS: Including 3D image post-process ing . COMPARISON: Plain film of 02/12/2019 FINDINGS: PULMONARY ARTERIES: Negative for acute p ulmonary embolus. LUNGS AND LARGE AIRWAYS: Scattered minor patches of atelectasis or early infiltrate are identified. Calcified gra nuloma in the right base is identified. PLEURA: Negative HEART AND PERICARDIUM: Negative MEDIASTINUM AND PABLO: Calcified right hi lar and mediastinal lymph nodes are seen. CHEST WALL AND LOWER NECK: Negative VESSELS: Negative BONES: Negative VISUALIZED UPPER ABDOMEN: Marked fatty c hange in the liver is demonstrated. No focal mass is seen. Splenic calcified gr anulomas are present. OTHER: None IMPRESSION: 1. Negative for acute pulmonary emboli 2. Fatty change in liver 3. Scattered minor patches of atelectasi s or infiltrate bilaterally. Efe Childress D.O. IMG CT PROCEDURES (ABNORMAL) CK (Creatine Kinase) (02/05/2021 11:15 AM COMMUNITY HEALTH NURSING DIRECTOR) athologist Signature Creatine 489 (H) 39 - 308 02/05/2021 [facility] Kinase, P U/L 11:37 AM COMMUNITY HEALTH NURSING DIRECTOR Specimen Anatomical Collection Method Collection Time Receive d Time (Source) Location / / Volume Laterality Blood (Blood, 02/05/2021 11:15 02/05/2021 Venous) AM COMMUNITY HEALTH NURSING DIRECTOR 11:18 AM COMMUNITY HEALTH NURSING DIRECTOR Efe Childress D.O. LAB BLOOD ADD-ON Performing Organization Address City/State/ZIP Code Phon e Number [facility]- [address] [place], [place] [address] [place] [address] [place] [address] [facility] [address] (ABNORMAL) D-Dimer (02/05/2021 11:15 AM COMMUNITY HEALTH NURSING DIRECTOR) athologist Signature D-Dimer, P 897 (H) <=500 ng/mL 02/05/2021 [facility] FEU 11:28 AM COMMUNITY HEALTH NURSING DIRECTOR Comment: D-dimer concentrations increase with age . ??For DVT/PE exclusion, in addition to clinical pre-test probabi lity, age-adjusted D-dimer cut-offs are suggested for patients >50 years old. For additional information refer to the D-dimer assay i n the Laboratory Test Catalog (LT) and/or [employer] (RUTH) . ----ADDITIONAL INFORMATION---- D-dimer values less than or equal to 500 ng/mL fibrinogen equivalent units (FEU) may be used in co njunction with clinical pre-test probability to exclude deep vein thrombosis (DVT) and/or pulmonary emboli sm (PE). Specimen Anatomical Collection Method Collection Time Receive d Time (Source) Location / / Volume Laterality Blood (Blood, 02/05/2021 11:15 02/05/2021 Venous) AM COMMUNITY HEALTH NURSING DIRECTOR 11:18 AM COMMUNITY HEALTH NURSING DIRECTOR Efe Childress D.O. LAB BLOOD ADD-ON Performing Organization Address City/State/ZIP Code Phon e Number [place] [phone] [place] [facility] [address] [place] [address] [address] [facility] (ABNORMAL) Comprehensive Metabolic Panel (02/05/2021 11:15 AM COMMUNITY HEALTH NURSING DIRECTOR) Analysis Performed At Patho logist Time Signature Potassium, P 3.7 3.6 - 5.2 02/05/2021 [facility] mmol/L 11:36 AM COMMUNITY HEALTH NURSING DIRECTOR Sodium, P 120 (CL) 135 - 145 02/05/2021 [facility] mmol/L 11:43 AM COMMUNITY HEALTH NURSING DIRECTOR Chloride, P 80 (L) 98 - 107 02/05/2021 [facility] mmol/L 11:43 AM COMMUNITY HEALTH NURSING DIRECTOR Bicarbonate, P 23 22 - 29 02/05/2021 [facility] mmol/L 11:37 AM COMMUNITY HEALTH NURSING DIRECTOR Anion Gap, P 17 (H) 7 - 15 02/05/2021 [facility] 11:43 AM COMMUNITY HEALTH NURSING DIRECTOR BUN (Blood Urea 13 8 - 24 02/05/2021 [facility] Nitrogen), P mg/dL 11:37 AM COMMUNITY HEALTH NURSING DIRECTOR Creatinine 0.62 (L) 0.74 - 02/05/2021 [facility] 1.35 mg/dL 11:37 AM COMMUNITY HEALTH NURSING DIRECTOR eGFR-Black/Afri >90 >=60 02/05/2021 [facility] can Eritrean mL/min/BSA 11:37 AM COMMUNITY HEALTH NURSING DIRECTOR Comment: ----ADDITIONAL INFORMATION---- Estimated GFR calculated using the 2009 CKD_EPI creatinine equation. eGFR Non-Black/ >90 >=60 mL/min/BSA 02/05/2021 11:37 AM COMMUNITY HEALTH NURSING DIRECTOR [facility] Comment: ----ADDITIONAL INFORMATION---- Estimated GFR calculated using the 2009 CKD_EPI creatinine equation. Calcium, Total, P 9.1 8.6 - 10.0 mg/dL 02/05/2021 11:3 7 AM [facility] COMMUNITY HEALTH NURSING DIRECTOR Glucose, P 120 70 - 140 mg/dL 02/05/2021 11:37 AM NPR[facility] COMMUNITY HEALTH NURSING DIRECTOR Protein, Total, P 7.4 6.3 - 7.9 g/dL 02/05/2021 11:37 AM NPR[facility] COMMUNITY HEALTH NURSING DIRECTOR Albumin, P 4.3 3.5 - 5.0 g/dL 02/05/2021 11:37 AM [facility] COMMUNITY HEALTH NURSING DIRECTOR Aspartate Aminotransferase 124 (H) 8 - 48 U/L 02/05/2021 1 1:37 AM [facility] (AST), P COMMUNITY HEALTH NURSING DIRECTOR Alkaline Phosphatase, P 72 40 - 129 U/L 02/05/2021 11 :37 AM NPR[facility] COMMUNITY HEALTH NURSING DIRECTOR Alanine Aminotransferase 81 (H) 7 - 55 U/L 02/05/2021 11: 37 AM [facility] (ALT), P COMMUNITY HEALTH NURSING DIRECTOR Bilirubin, Total, P 1.3 (H) <=1.2 mg/dL 02/05/2021 11:37 A M NPRG COMMUNITY HEALTH NURSING DIRECTOR Specimen Anatomical Collection Method Collection Time Receive d Time (Source) Location / / Volume Laterality Blood (Blood, 02/05/2021 11:15 02/05/2021 Venous) AM COMMUNITY HEALTH NURSING DIRECTOR 11:18 AM COMMUNITY HEALTH NURSING DIRECTOR Efe Childress D.O. LAB BLOOD ADD-ON Performing Organization Address City/State/ZIP Code Phon e Number [facility]- [address] [place], [place] [address] [place] [address] [place] [address] [place] [address] (ABNORMAL) CBC with Differential, Blood (02/05/2021 11:15 AM COMMUNITY HEALTH NURSING DIRECTOR) [facility] gist Method Time Signature Hemoglobin 13.1 (L) 13.2 - 02/05/2021 [facility] 16.6 g/dL 11:26 AM COMMUNITY HEALTH NURSING DIRECTOR Hematocrit 35.2 (L) 38.3 - 02/05/2021 [facility] 48.6 % 11:26 AM COMMUNITY HEALTH NURSING DIRECTOR Erythrocytes 3.88 (L) 4.35 - 02/05/2021 [facility] 5.65 11:26 AM COMMUNITY HEALTH NURSING DIRECTOR x10(12)/L MCV 90.7 78.2 - 02/05/2021 [facility] 97.9 fL 11:26 AM COMMUNITY HEALTH NURSING DIRECTOR RBC Distrib Width 12.1 11.8 - 02/05/2021 [facility] 14.5 % 11:26 AM COMMUNITY HEALTH NURSING DIRECTOR Platelet Count 166 135 - 317 02/05/2021 [facility] x10(9)/L 11:26 AM COMMUNITY HEALTH NURSING DIRECTOR Leukocytes 6.7 3.4 - 9.6 02/05/2021 [facility] x10(9)/L 11:26 AM COMMUNITY HEALTH NURSING DIRECTOR Neutrophils 5.69 1.56 - 02/05/2021 [facility] 6.45 11:26 AM COMMUNITY HEALTH NURSING DIRECTOR x10(9)/L Lymphocytes 0.52 (L) 0.95 - 02/05/2021 [facility] 3.07 11:26 AM COMMUNITY HEALTH NURSING DIRECTOR x10(9)/L Monocytes 0.43 0.26 - 02/05/2021 [facility] 0.81 11:26 AM COMMUNITY HEALTH NURSING DIRECTOR x10(9)/L Eosinophils 0.00 (L) 0.03 - 02/05/2021 [facility] 0.48 11:26 AM COMMUNITY HEALTH NURSING DIRECTOR x10(9)/L Basophils 0.02 0.01 - 02/05/2021 [facility] 0.08 11:26 AM COMMUNITY HEALTH NURSING DIRECTOR x10(9)/L Specimen Anatomical Collection Method Collection Time Receive d Time (Source) Location / / Volume Laterality Blood (Blood, 02/05/2021 11:15 02/05/2021 Venous) AM COMMUNITY HEALTH NURSING DIRECTOR 11:18 AM COMMUNITY HEALTH NURSING DIRECTOR Efe Childress D.O. LAB BLOOD ADD-ON Performing Organization Address City/State/ZIP Code Phon e Number [facility]- [address] [place], [place] [address] [address] [place] [address] [facility] [address] S-TSH (Thyroid-Stimulating Hormone - Sensitive) (02/05/2021 11:15 AM COMMUNITY HEALTH NURSING DIRECTOR) P athologist Signature TSH, Sensitive 0.9 0.3 - 4.2 02/05/2021 [facility] mIU/L 12:03 PM COMMUNITY HEALTH NURSING DIRECTOR Specimen Anatomical Collection Method Collection Time Receive d Time (Source) Location / / Volume Laterality Blood (Blood, 02/05/2021 11:15 02/05/2021 Venous) AM COMMUNITY HEALTH NURSING DIRECTOR 11:18 AM COMMUNITY HEALTH NURSING DIRECTOR Efe Childress D.O. LAB BLOOD ADD-ON Performing Organization Address City/[facility]/ZIP Code Phon e Number [place] [phone] [facility] [place] [id number] Troponin T, Baseline, 5th gen (02/05/2021 11:15 AM COMMUNITY HEALTH NURSING DIRECTOR) P athologist Signature Troponin T, 15 <=15 ng/L 02/05/2021 [facility] Baseline, 5th 11:40 AM COMMUNITY HEALTH NURSING DIRECTOR gen Comment: Biotin has been identified by the alexis huang as a potential interfering substance. ??Higher concentr ations of biotin may be found in multivitamins, hair/nail supple ments, and workout supplements. ??If the result does not [facility] clinical observations, repeat testing after patient refrains fr om the use of supplements for at least 12 hours. Specimen Anatomical Collection Method Collection Time Receive d Time (Source) Location / / Volume Laterality Blood (Blood, 02/05/2021 11:15 02/05/2021 Venous) AM COMMUNITY HEALTH NURSING DIRECTOR 11:18 AM COMMUNITY HEALTH NURSING DIRECTOR Efe Childress D.O. LAB BLOOD TROPONIN Performing Organization Address City/[facility]/ZIP Code Phon e Number [address] [facility] [place] [address] ECG 12 Lead (02/05/2021 11:08 AM COMMUNITY HEALTH NURSING DIRECTOR) P athologist Signature Ventricular Rate 99 BPM MUSE ECG/Min TX Interval 180 ms MUSE QRSD Interval 90 ms MUSE QT Interval 348 ms MUSE QTC Interval 446 ms MUSE P [place] 56 degrees MUSE R [place] 5 degrees MUSE T Wave [place] 1 degrees MUSE Specimen Anatomical Collection Method Collection Time Receive d Time (Source) Location / / Volume Laterality 02/05/2021 11:08 02/05/2021 AM COMMUNITY HEALTH NURSING DIRECTOR 11:21 AM COMMUNITY HEALTH NURSING DIRECTOR Impressions MUSE - 02/05/2021 11:21 AM COMMUNITY HEALTH NURSING DIRECTOR Normal sinus rhythm Normal ECG When compared with ECG of 12-NOV-2016 09 :, No significant change was found Reviewed by MICHELLE Mancia Narrative This result has an attachment that is no t available. Procedure Note Nikolas Collier M.D. - 02/05/2021Formatt ing of this note might be different from the original. IMPRESSION: Normal sinus rhythm Normal ECG When compared with ECG of 12-NOV-2016 09 :07, No significant change was found Reviewed by MICHELLE Mancia Efe Childress D.O. ECG ORDERABLES Performing Organization Address City/State/ZIP Code Phon e Number MUSE MUSE NA documented in this encounter Visit Diagnoses Diagnosis Hyponatremia - Primary Hyponatremia COVID-19 Infection Nausea Acute Lower Respiratory Infection Due To COVID-19 Pain Leg Bilateral Pain Low Back Chronic Hypokalemia documented in this encounter Admitting Diagnoses Diagnosis Hyponatremia documented in this encounter Administered Medications Inactive Administered Medications - up to 3 most recent administrations Medication Order MAR Action Action Date Dose Rate Site acetaminophen tablet 1,000 mg Given 02/05/2021 1:42 PM COMMUNITY HEALTH NURSING DIRECTOR 1,000 mg (TYLENOL) 1,000 mg, oral, Once, On Fri02/05/21 at 1312, For 1 dose acetaminophen tablet 1,000 mg (TYLENOL) Given 02/05/2021 9:27 PM COMMUNITY HEALTH NURSING DIRECTOR 1,000 mg 1,000 mg, oral, Every 6 hours PRN, moderate pain or score 4-6 of 10, Starting on Fri02/05/21 at 1528 atorvastatin tablet 20 mg (LIPITOR) Given 02/06/2021 8:40 PM COMMUNITY HEALTH NURSING DIRECTOR 20 mg 20 mg, oral, Daily at bedtime, First dose on Fri02/05/21 at 2100 Given 02/05/2021 9:27 PM COMMUNITY HEALTH NURSING DIRECTOR 20 mg calcium carbonate chewable tablet Given 02/05/2021 7:0 9 PM COMMUNITY HEALTH NURSING DIRECTOR 200 mg of calcium 200 mg of calcium (TUMS) 200 mg of calcium, oral, Daily PRN, heartburn, indigestion, Starting on Fri02/05/21 at 1902, Doses listed are in mg of elemental calcium. Take with food. 500 mg calcium carbonate contains 200 mg of elemental calcium. enoxaparin injection 40 mg Given 02/07/2021 9:25 AM COMMUNITY HEALTH NURSING DIRECTOR 40 mg Right Upper Arm (LOVENOX) (Back) 40 mg, subcutaneous, Every 12 hours scheduled, First dose on Fri02/05/21 at 1545 Given 02/06/2021 8:39 PM COMMUNITY HEALTH NURSING DIRECTOR 40 mg Left Upper Arm (Back) Given 02/06/2021 8:53 AM COMMUNITY HEALTH NURSING DIRECTOR 40 mg Left Upper Arm (Back) iohexoL 350 mg iodine/mL solution 1-200 mL Given 02/05/2021 11:5 7 AM COMMUNITY HEALTH NURSING DIRECTOR 93 mL (OMNIPAQUE) 1-200 mL, intravenous, Once in imaging, contrast, Starting on Fri02/05/21 at 1154, For 1 dose, Dose per Radiant Medication Guidelines ketorolac injection 30 mg (TORADOL) Given 02/05/2021 12:56 PM COMMUNITY HEALTH NURSING DIRECTOR 30 mg 30 mg, intravenous, Once, On Fri02/05/21 at 1142, For 1 dose, Adult IV push rate: Over 15 seconds. Peds IV push rate: Over 1 minute. 60 mg dose only for IM, not recommended for IV. lisinopriL tablet 10 mg (PRINIVIL,ZESTRI L) Given 02/06/2021 8:40 PM COMMUNITY HEALTH NURSING DIRECTOR 10 mg 10 mg, oral, Once, On Fri02/06/21 at 2000, For 1 dose lisinopriL tablet 20 mg (PRINIVIL,ZESTRI L) Given 02/07/2021 9:25 AM COMMUNITY HEALTH NURSING DIRECTOR 20 mg 20 mg, oral, Daily, First dose on Fri02/07/21 at 0900 lisinopril-hydroCHLOROthiazide 10-12.5 mg Given 2020 8:53 AM COMMUNITY HEALTH NURSING DIRECTOR 2 tablets per tablet 2 tablet (PRINZIDE,ZESTORETIC ) 2 tablet, oral, Daily, First dose on Fri02/06/21 at 0900 melatonin tablet 3 mg Given 02/06/2021 8:40 PM COMMUNITY HEALTH NURSING DIRECTOR 3 mg 3 mg, oral, Daily at bedtime, First dose on Fri02/05/21 at 2100 Given 02/05/2021 9:27 PM COMMUNITY HEALTH NURSING DIRECTOR 3 mg metoprolol succinate 24 hr tablet 25 mg Given 02/07/2021 9:25 AM COMMUNITY HEALTH NURSING DIRECTOR 25 mg (TOPROL-XL) 25 mg, oral, Daily, First dose on Fri02/06/21 at 0900, for blood pressure Do NOT crush or chew. Tablet may be split on score if needed. Given 02/06/2021 8:53 AM COMMUNITY HEALTH NURSING DIRECTOR 25 mg NaCl 0.9 % bolus 1,000 mL New Bag 02/05/2021 11:17 AM COMMUNITY HEALTH NURSING DIRECTOR 1,000 mL 1000 mL/hr 1,000 mL, intravenous, at 1,000 mL/hr, Administer over 1 Hours, Once, On Fri02/05/21 at 1102, For 1 dose NaCl 0.9 % bolus 100 mL Bolus from Bag 02/05/2021 11:56 AM COMMUNITY HEALTH NURSING DIRECTOR 100 mL 100 mL/hr 100 mL, intravenous, at 100 mL/hr, Administer over 1 Hours, Once in imaging, Post Contrast, Starting on Fri02/05/21 at 1154, For 1 dose NaCl 0.9% infusion New Bag 02/06/2021 8:24 PM COMMUNITY HEALTH NURSING DIRECTOR 125 mL/hr 125 mL/hr 125 mL/hr, intravenous, Continuous, Starting on Fri02/05/21 at 1157 New Bag 02/06/2021 12:05 PM COMMUNITY HEALTH NURSING DIRECTOR 125 mL/hr 125 mL/hr Rate/Dose Change 02/06/2021 11:21 AM COMMUNITY HEALTH NURSING DIRECTOR 125 mL/hr 125 mL/hr ondansetron (PF) injection 4 mg (ZOFRAN) Given 02/05/2021 11:18 AM COMMUNITY HEALTH NURSING DIRECTOR 4 mg 4 mg, intravenous, Once, On Fri02/05/21 at 1102, For 1 dose ondansetron ODT disintegrating tablet 4 mg Given 02/06/2021 4:51 AM COMMUNITY HEALTH NURSING DIRECTOR 4 mg (ZOFRAN-ODT) 4 mg, oral, Every 8 hours PRN, nausea, vomiting, Starting on Fri02/05/21 at 1526, When splitting ODT at bedside, handle with gloves and a pill splitter to prevent moisture contact. Given 02/05/2021 7:26 PM COMMUNITY HEALTH NURSING DIRECTOR [address] tablet 40 mg (PROTONIX) Given 02/07/2021 6:28 AM COMMUNITY HEALTH NURSING DIRECTOR 40 mg 40 mg, oral, Daily before breakfast, First dose on Fri02/06/21 at 0700, Swallow whole. Do NOT crush, chew, or split tablet. Given 02/06/2021 6:20 AM COMMUNITY HEALTH NURSING DIRECTOR 40 mg potassium chloride ER tablet 40 mEq Given 02/06/2021 11:04 AM CS T 40 mEq (KLORCON/K-TAB) 40 mEq, oral, Once, On Fri02/06/21 at 1045, For 1 dose, For K 3-3.4 mEq/L - give total of 40 mEq Swallow whole. Do NOT crush, chew, or split tablet., Monitor the following for replacement: Potassium, Replace Potassium per: Standard Schedule sodium chloride 0.9 % injection 10 mL Given 02/05/2021 11:56 AM COMMUNITY HEALTH NURSING DIRECTOR 10 mL 10 mL, intravenous, As needed, line care, Starting on Fri02/05/21 at 1154 sodium chloride 0.9 % injection 3 mL Given 02/07/2021 9:25 AM COMMUNITY HEALTH NURSING DIRECTOR 3 mL 3 mL, intravenous, Every 12 hours scheduled, First dose on Fri02/05/21 at 2100, Peripheral Intravenous Catheter and Rapid Infusion Catheter, when no infusion to maintain patency traMADoL tablet 50 mg (ULTRAM) Given 02/06/2021 8:53 PM COMMUNITY HEALTH NURSING DIRECTOR 50 mg 50 mg, oral, Every 6 hours PRN, severe pain or score 7-10 of 10, Starting on Fri02/05/21 at 1529 Given 02/06/2021 11:05 AM COMMUNITY HEALTH NURSING DIRECTOR 50 mg Given 02/06/2021 4:51 AM COMMUNITY HEALTH NURSING DIRECTOR 50 mg documented in this encounter Active and Recently Administered Medications Times are shown in COMMUNITY HEALTH NURSING DIRECTOR. Scheduled Medication Order 02/05/2021 02/06/2021 02/07/2021 acetaminophen tablet 1,000 mg (TYLENOL) (COMPLETED) 13 42 (Given - Provider: Halina Ennis R.N.) 1,000 mg, oral, Once, On Fri02/05/21 at 1312, For 1 dose atorvastatin tablet 20 mg (LIPITOR) 2126 (Given - Prov ider: Iris Corbett L.P.N.) 2039 (Given - Provider: Cecily Young R.N.) 20 mg, oral, Daily at bedtime, First dose on Fri02/05/21 at 2100 enoxaparin injection 40 mg (LOVENOX) 1612 (Given - Pro vider: Helga Ewing L.P.N.) 0856 (Given - Provider: Helga monk L.P.N.)2038 (Given - Provider: Cecily Young R.N.) 0925 (Given - Provider: Ha Churchill) 40 mg, subcutaneous, Every 12 hours sche duled, First dose on Fri02/05/21 at 1545 ketorolac injection 30 mg (TORADOL) (COMPLETED) 1256 ( Given - Provider: Halina Ennis R.N.) 30 mg, intravenous, Once, On Fri02/05/21 at 1142, For 1 dose, Adult IV push rate: Over 15 seconds. Peds IV push rate: Over 1 minute. 60 mg dose only for IM, not recommended for IV. lisinopriL tablet 10 mg (PRINIVIL,ZESTRIL) (COMPLETED) 2039 (Given - Provider: Cecily Young R.N.) 10 mg, oral, Once, On Fri02/06/21 at 2000, For 1 dose lisinopriL tablet 20 mg (PRINIVIL,ZESTRIL) 0925 (Given - Provider: Maribel Pratt R.N.) 20 mg, oral, Daily, First dose on Fri02/07/21 at 0900 lisinopril-hydroCHLOROthiazide 10-12.5 m g per tablet 2 tablet (PRINZIDE,ZESTORETIC) (CANCELED) 0853 (Given - Provide r: Helga Ewing L.P.NNikhil) 2 tablet, oral, Daily, First dose on Fri02/06/21 at 0900 melatonin tablet 3 mg 2126 (Given - Provider: Iris brambila L.P.N.) 2039 (Given - Provider: Cecily Young R.N.) 3 mg, oral, Daily at bedtime, First dose on Fri02/05/21 at 2100 metoprolol succinate 24 hr tablet 25 mg (TOPROL-XL) 0853 (Given - Provider: Augusto Ward.P.N.) 0925 (Given - Provider: Ha Churchill) 25 mg, oral, Daily, First dose on Fri at 0900, for blood pressure Do NOT crush or chew. Tablet may be split on score if needed. NaCl 0.9 % bolus 1,000 mL (COMPLETED) 1117 (New Bag - Provider: Halina Carias R.N.)1255 (Stopped - Provider: Halina Ennis R.N.) 1,000 mL, intravenous, at 1,000 mL/hr, A dminister over 1 Hours, Once, On Fri02/05/21 at 1102, For 1 dose ondansetron (PF) injection 4 mg (ZOFRAN) (COMPLETED) 1 118 (Given - Provider: Halina Ennis R.N.) 4 mg, intravenous, Once, On Fri02/05/21 at 1102, For [address] tablet 40 mg (PROTONIX) 0620 (Given - Provider: Augusto Diaz.P.N.) 0628 (Given - Provider: Sveta DiazP.NNikhil) 40 mg, oral, Daily before breakfast, Fir st dose on Fri02/06/21 at 0700, Swallow whole. Do NOT crush, chew, or split tablet. potassium chloride ER tablet 40 mEq (KLORCON/K-TAB) (COMPLET ED) 1104 (Given - Provider: Muriel Garcia R.N.) 40 mEq, oral, Once, On Fri02/06/21 at 10 45, For 1 dose, For K 3-3.4 mEq/L - give total of 40 mEq Swallow whole. Do NOT crush, chew, or split tablet., Monitor the following for replacement: Potassium, Replace Potassium per: Standard Schedule sodium chloride 0.9 % injection 3 mL 2032 (Not Given - Provider: Cecily Young R.N. - Reason: Other - Comment: fluids running) 1013 (Not Given - Provider: Lilly Dutta R.N. - Reason: Order parameters not met - Comment: Fluids infusing)2038 (Not Given - Provider: Cecily Young R.N. - Reason: Order parameters not met) 0925 (Given - Provider: Ha Churchill) 3 mL, intravenous, Every 12 hours schedu led, First dose on Fri02/05/21 at 2100, Peripheral Intravenous Catheter and Rapid Infusion Catheter, when no infusion to maintain patency Continuous Medication Order 02/05/2021 02/06/2021 02/07/2021 NaCl 0.9% infusion (CANCELED) 1255 (New Bag - Provider : Halina Ennis R.N.)1347 (Continue to Inpatient Floor - Provider: Halina Ennis R.N.)2152 (New Bag - Provider: Cecily Young R.N.) 0454 (New Bag - Provider: Cecily Young R.N.)1121 (Rate/Dose Change - Provider: Muriel Garcia R.N.)1205 (New Bag - Provider: Lilly Dutta R.N.)2023 (New Bag - Provider: Lala Mary R.N.) 125 mL/hr, intravenous, Continuous, Starting on Fri02/05/21 at 1 157 PRN Medication Order 02/05/2021 02/06/2021 02/07/2021 acetaminophen tablet 1,000 mg (TYLENOL) 2126 (Given - Provider: Sveta DiazP.N. - Comment: otf legs and lowetr back) 1,000 mg, oral, Every 6 hours PRN, moder ate pain or score 4-6 of 10, Starting on Fri02/05/21 at 1528 calcium carbonate chewable tablet 200 mg of calcium (T UMS) 1909 (Given - Provider: Sveta WardP.NNikhil) 200 mg of calcium, oral, Daily PRN, hear tburn, indigestion, Starting on Fri02/05/21 at 1902, Doses listed are in mg of elemental calcium. Take with food. 500 mg calcium carbonate contains 200 mg of elemental calcium. iohexoL 350 mg iodine/mL solution 1-200 mL (OMNIPAQUE) (COMPLETED) 1157 (Given - Provider: Vernell Dumont(R)(CT), R.T.(R) - Comment: [id number]) 1-200 mL, intravenous, Once in imaging, contrast, Starting on Fri02/05/21 at 1154, For 1 dose, Dose per Radiant Medication Guidelines NaCl 0.9 % bolus 100 mL (COMPLETED) 1156 (Bolus from B ag - Provider: Vernell Dumont(R)(CT), R.T.(R)) 100 mL, intravenous, at 100 mL/hr, Admin ister over 1 Hours, Once in imaging, Post Contrast, Starting on Fri02/05/21 at 1154, For 1 dose naloxone injection 0.2 mg 0.2 mg, intravenous, As needed, respirat ory depression, Starting on Fri02/05/21 at 1530, For RASS Score -4 or less, respiratory rate of less than 8 breaths/min. Notify provider/service and rapid response team (if available at institution). ondansetron ODT disintegrating tablet 4 mg (ZOFRAN-ODT ) 1926 (Given - Provider: Helga Ewing, L.P.N.) 0451 (Given - Provider: Iris Corbett L.P.N.) 4 mg, oral, Every 8 hours PRN, nausea, v omiting, Starting on Fri02/05/21 at 1526, When splitting ODT at bedside, handle with gloves and a pill splitter to prevent moisture contact. pantoprazole DR tablet 40 mg (PROTONIX) 40 mg, oral, As needed, heartburn, Start ing on Fri02/05/21 at 1526, Swallow whole. Do NOT crush, chew, or split tablet. sennosides-docusate sodium 8.6-50 mg per tablet 1 tablet (SENOKO T-S) 1 tablet, oral, 2 times daily PRN, const ipation, Starting on Fri02/05/21 at 1529, Do not give if patient has diarrhea. sodium chloride 0.9 % injection 10 mL 1156 (Given - Pr ovider: Vernell Dumont(R)(CT), R.T.(R)) 10 mL, intravenous, As needed, line care, Starting on Fri 1 at 1154 sodium chloride 0.9 % injection 10 mL 10 mL, intravenous, As needed, line care , Starting on Fri02/05/21 at 1527, Peripheral Intravenous Catheter and Rapid Infusion Catheter, prior to blood sampling, post blood transfusion or post blood sampling sodium chloride 0.9 % injection 3 mL 3 mL, intravenous, As needed, line care, Starting on Fri02/05/21 at 1527, Prior to and following infusion and between multiple consecutive infusions: sodium chloride 0.9 % injection traMADoL tablet 50 mg (ULTRAM) 1612 (Given - Provider: Augusto Ward.P.NNikhil)2233 (Given - Provider: Augusto Diaz.P.N. - Comment: otf leg pain) 0451 (Given - Provider: Augusto Diaz.P.N.)1105 (Given - Provider: Muriel Garcia R.NNikhil)2053 (Given - Provider: Cecily Young RNikhilNNikhil) 50 mg, oral, Every 6 hours PRN, severe p ain or score 7-10 of 10, Starting on Fri02/05/21 at 1529 documented in this encounter Additional Health Concerns Assessment Noted Time PHQ-9 Depression Total Score: 2 09/17/2018 9:08 AM CDT documented as of this encounter Care Teams Wool [employer]her Relationship Specialty Start Date End Date Norma Kenny APRN, C.N.P. PCP - General 09/12/[address] [facility] [place] [address] documented as of this encounter
--- OUTSIDE RECORDS SUMMARY | 2022-01-25 11:37 | XMS_ITS | Encounter Summary ---
:1965 Author Organization [facility] Address [address] [place] [address] Care Team Providers Name Role Phone Norma Kenny APRN, C.N.P. Primary Care Provider [phone] Reason for Visit Reason Comments Weakness - Generalized pt states he has the same we akness in his legs that he had 2 weeks ago. Pt was admitted t o the hospital for 2 days with hyponatremia. Pt denies any pain, just weakness in his legs. Encounter Details Date Type Department Care Team Description 02/19/2021 Emergency [place] [facility] Moira Ambriz Weakn ess General (Primary Dx); Department M.D. 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 documented as of this encounter Last Filed Vital Signs Vital Sign Reading Time Taken Comments Blood Pressure 154/95 02/19/2021 4:10 PM PLUG MACHINE OPERATOR Pulse 109 02/19/2021 4:10 PM PLUG MACHINE OPERATOR Temperature 37 ??C (98.6 ??F) 02/19/2021 4:06 PM PLUG MACHINE OPERATOR Respiratory Rate 17 02/19/2021 4:06 PM PLUG MACHINE OPERATOR Oxygen Saturation 96% 02/19/2021 4:10 PM PLUG MACHINE OPERATOR Inhaled Oxygen Concentration - - Weight 145 kg (319 lb 0.1 oz) 02/19/2021 9:56 AM PLUG MACHINE OPERATOR Height 188 cm (6' 2) 02/19/2021 9:56 AM PLUG MACHINE OPERATOR Body Mass Index 40.96 02/19/2021 9:56 AM PLUG MACHINE OPERATOR documented in this encounter Discharge Instructions AttachmentsThe following attachments cannot be sent through Care Everywhere. Weakness (Guyanese)Managing Anxiety Adult (Guyanese)documented in this encounter Medications at Time of Discharge Medication Sig Dispensed Refills Start Date End Date atorvastatin (LIPITOR) 20 Take 1 tablet (20 30 tablet 0 03/20/2021 mg tabletIndications: mg total) by mouth Hyperlipidemia at bedtime. DUE FOR ANNUAL EXAM AND MEDICATION CHECK FOR MORE REFILLs. lisinopriL TAKE 1 TABLET(20 30 tablet 0 02/12/2021 04/10/19 (PRINIVIL,ZESTRIL) 20 mg MG) BY MOUTH DAILY tablet LORazepam (ATIVAN) 1 mg Take 1 tablet (1 mg 4 tablet 0 02/21/2021 tablet total) by mouth 2 (two) times a day as needed for anxiety for up to 3 days. metoprolol succinate TAKE 1 TABLET(25 90 tablet [...] Disease heartburn. documented as of this encounter ED Notes Moira Ambriz M.D. - 02/19/2021 4:12 PM CST SUBJECTIVE CHIEF COMPLAINT/REASON FOR VISIT Weakness - Generalized (pt states he has the same weakness in his legs that he had 2 weeks ago. Pt was admitted to the hospital for 2 days with hyponatremia. Pt denies any pain, just weakness in his legs. ) HISTORY OF PRESENT ILLNESS 55-year-old male comes in for weakness of his lower extremities. He was admitted to the hospital 2 weeks ago with similar symptoms and at that time he was fairly profoundly hyponatremic. He stated the hospital for a couple of days since was sent out. He does not know the etiology was found. He is not running a fever. He does not have pain per se. He does feel anxious and thinks that he is under lot of stress. He has not had therapy for this, but has recognized distress for some time. REVIEW OF SYSTEMS Constitutional: Negative for fever. Respiratory: Negative for cough and shortness of breath. He was positive for COVID on 01/25. Feels like he has not been quite right since then. Gastrointestinal: Negative for nausea and vomiting. Neurological: Positive for weakness (Generalized). Negative for headaches. Psychiatric/Behavioral: The patient is nervous/anxious. OBJECTIVE Initial Vitals Temperature Pulse Rate Heart Rate Resp Rate Blood Pressure SpO2 02/19/21 0955 02/19/21 0955 -- 02/19/21 0955 02/19/21 0945 02/19/21 0955 36.8 ??C (!) 114 18 (!) 179/95 98 % Pain Score 02/19/21 0956 0 - No pain PHYSICAL EXAMINATION Constitutional: Vitals reviewed. He is cooperative. No distress. HENT: Head: Normocephalic and atraumatic. Mouth/Throat: Oropharynx is clear and moist. Mucous membranes are moist. Eyes: EOM are normal. Pupils are equal, round, and reactive to light. Cardiovascular: Normal rate, regular rhythm and normal heart sounds. Pulses are palpable. Pulmonary/Chest: Effort normal and breath sounds normal. There is normal air entry. No respiratory distress. Abdominal: Soft. There is no abdominal tenderness. Musculoskeletal: General: No tenderness or deformity. Normal range of motion. Cervical back: Normal range of motion. Neurological: Alert and oriented to person, place, and time. Jittery. Not a tremor, but voluntary subtle hyperkinetic movement of the legs. Skin: Skin is warm, dry and intact. Psychiatric: Behavior is normal. Anxious ASSESSMENT/PLAN IMPRESSION AND PLAN Broad differential for generalized weakness. It seemed prudent to recheck his electrolytes given hisprevious history. EKG and troponins were stable. His electrolytes were normal this time. D-dimer is persistently elevated. I did go ahead and scan him again. Negative for PE or pneumonia. I had given him Ativan 1 mg IV and he actually asked for more. We talked about his anxiety and stress a bit. I think he needs to get into some sort of talk therapy. I will give him 4 tablets of lorazepam to get him through to his next medical appointment in a couple of days, but this is not something that I would recommend long-term, and I told him so. Stable for discharge to home. May return as needed. I reviewed previous medical records including documentation from previous visits. I personally reviewed the lab result(s) and my interpretation is documented in ED Course. I personally reviewed the radiology image(s) and reviewed the radiology report(s). ED Course as of 02/20/211441Feb 19, 2021 1356 D-Dimer(!): D-Dimer, P 948(!) Final Diagnoses: as of 02/20/211441 Weakness General Anxiety Moira Ambriz M.D. 02/20/211446 MACHINE OPERATOR documented in this encounter Plan of Treatment Upcoming Encounters Date Type Specialty Care Team Description 02/15/2022 Office Visit Orthopedic Surgery Madyson Rosa vt, D.O. [address] [facility] [place] [place] [phone] (Wo rk) documented as of this encounter Procedures Procedure Name Priority Date/Time Associated Comments Diagnosis CT CHEST RAD - Routine 02/19/2021 2:43 Results for this ANGIOGRAM AND (most inpatients PM PLUG MACHINE OPERATOR procedure are in PULMONARY and all the results ARTERIES WITH IV outpatients) section. CONTRAST TROPONIN T, Timed 02/19/2021 12:32 Results for this 2H/6H, 5TH GEN, P PM PLUG MACHINE OPERATOR procedure are in the results section. ECG STAT 02/19/2021 10:37 Results for this AM PLUG MACHINE OPERATOR procedure are i n the results section. TROPONIN T, STAT 02/19/2021 10:15 Results for this BASELINE, 5TH AM PLUG MACHINE OPERATOR procedure are in GEN, P the results section. D-DIMER, P STAT 02/19/2021 10:15 Results for this AM PLUG MACHINE OPERATOR procedure are i n the results section. CBC WITH STAT 02/19/2021 10:15 Results for this DIFFERENTIAL, B AM PLUG MACHINE OPERATOR procedure ar e in the results section. BASIC METABOLIC STAT 02/19/2021 10:15 Results for this PANEL, S/P AM PLUG MACHINE OPERATOR procedure are i n the results section. documented in this encounter Results CT Chest Angiogram and Pulmonary Arteries with IV Contrast (02/19/2021 2:43 PM PLUG MACHINE OPERATOR) Anatomical Region Laterality Modality Chest, Cardiovascular RST LOS, Thoracic ARZ LOS, N/A Computed Tomography Thoracic FLA LOS Specimen (Source) Anatomical Collection Method Collection Time Re ceived Time Location / / Volume Laterality 02/19/2021 2:50 PM PLUG MACHINE OPERATOR Impressions 02/19/2021 2:56 PM PLUG MACHINE OPERATOR 1. ??Negative for acute pulmonary embolism. 2. ??No acute cardiopulmonary disease. 3. ??Hepatic steatosis. 4. ??Old granulomatous disease in the ri ght lung and spleen. Narrative 02/19/2021 2:56 PM PLUG MACHINE OPERATOR EXAM: CT CHEST ANGIOGRAM AND PULMONARY ARTERIES WITH IV CONTRAST Including 3-D image postprocessing. COMPARISON: Chest CT angiogram of 021. FINDINGS: Chest was scanned from the tho racic inlet through the adrenals during the pulmonary arterial phase of intraven ous contrast administration. 120 cc of Omnipaque 350 was utilized intravenously without complications. MIP images of the lungs were obtained. The thoracic in let is unremarkable. The chest the pulmonary arteries are wel l-opacified and show no evidence of filling defects or abrupt cut off suspic ious for pulmonary embolism. Aortic arch and roots of the great vessels are unrem arkable. No mediastinal or hilar lymphadenopathy or mass is identified. T here is some calcification in right hilar and pericarinal lymph nodes. Lungs are clear of acute infiltrates or effusions. Some linear scarring or atele ctasis in the right lower lobe. There is a calcified granuloma in the right middl e lobe. No suspicious pulmonary mass or nodule is identified. There is degenerat angela spurring and bridging at multiple levels in the mid and lower thoracic spi ne. Osseous structures are otherwise unremarkable. Visualized portions of the upper abdomen and retroperitoneum demonstrate diffuse fatty change in the liver as well as mul tiple calcified granulomata in the spleen. There is some mild stranding of perirenal fat bilaterally similar to previous exam. Overall there is no signi ficant interval change compared with 02/05/2021. Procedure Note Srinivas Victoria Jr., M.D. - 2020 EXAM: CT CHEST ANGIOGRAM AND PULMONARY A RTERIES WITH IV CONTRAST Including 3-D image postprocessing. COMPARISON: Chest CT angiogram of 021. FINDINGS: Chest was scanned from the tho racic inlet through the adrenals during the pulmonary arterial phase of intraven ous contrast administration. 120 cc of Omnipaque 350 was utilized intravenously without complications. MIP images of the lungs were obtained. The thoracic in let is unremarkable. The chest the pulmonary arteries are wel l-opacified and show no evidence of filling defects or abrupt cut off suspic ious for pulmonary embolism. Aortic arch and roots of the great vessels are unrem arkable. No mediastinal or hilar lymphadenopathy or mass is identified. T here is some calcification in right hilar and pericarinal lymph nodes. Lungs are clear of acute infiltrates or effusions. Some linear scarring or atele ctasis in the right lower lobe. There is a calcified granuloma in the right middl e lobe. No suspicious pulmonary mass or nodule is identified. There is degenerat angela spurring and bridging at multiple levels in the mid and lower thoracic spi ne. Osseous structures are otherwise unremarkable. Visualized portions of the upper abdomen and retroperitoneum demonstrate diffuse fatty change in the liver as well as mul tiple calcified granulomata in the spleen. There is some mild stranding of perirenal fat bilaterally similar to previous exam. Overall there is no signi ficant interval change compared with 02/05/2021. IMPRESSION: 1. Negative for acute pulmonary embolism . 2. No acute cardiopulmonary disease. 3. Hepatic steatosis. 4. Old granulomatous disease in the righ t lung and spleen. Moira Ambriz M.D. IMG CT PROCEDURES (ABNORMAL) Troponin T, 2H/6H, 5th Gen (02/19/2021 12:32 PM PLUG MACHINE OPERATOR) athologist Signature Troponin T, 2 16 (H) <=15 ng/L 02/19/2021 NPR[facility] hr, 5th gen 1:13 PM PLUG MACHINE OPERATOR Comment: Biotin has been identified by the alexis cturer as a potential interfering substance. ??Higher concentr ations of biotin may be found in multivitamins, hair/nail supple ments, and workout supplements. ??If the result does not [facility] clinical observations, repeat testing after patient refrains fr om the use of supplements for at least 12 hours. 2H Delta -1 ng/L 02/19/2021 1:13 PM PLUG MACHINE OPERATOR NPRG 2H Delta Interp Not Changing 02/19/2021 1:13 PM CS T NPRG Troponin T, 6 hr, 5th gen CANCELED ng/L 02/19/2021 1:1 3 PM PLUG MACHINE OPERATOR NPRG Comment: Result canceled by the juni stark Specimen Anatomical Collection Method Collection Time Receive d Time (Source) Location / / Volume Laterality Blood (Blood, 02/19/2021 12:32 02/19/2021 Venous) PM PLUG MACHINE OPERATOR 12:36 PM PLUG MACHINE OPERATOR Narrative [facility] - 02/19/2021 1:13 PM PLUG MACHINE OPERATOR Specimen Information: Specimen ID: [id number] Specimen Type: Blood Specimen Collection Start Date: 021 12:32 PM Specimen Received Date: 02/19/2021 12:3 6 PM Specimen ID: [id number] Specimen Type: Blood Moira Ambriz M.D. LAB BLOOD TROPONIN Performing Organization Address City/State/ZIP Code Phon e Number [facility]- [address] [place], [place] [address] [place] [address] ECG 12 Lead (02/19/2021 10:37 AM PLUG MACHINE OPERATOR) P athologist Signature Ventricular Rate 111 BPM MUSE ECG/Min [place] Interval 176 ms MUSE QRSD Interval 78 ms MUSE QT Interval 318 ms MUSE QTC Interval 432 ms MUSE P [place] 67 degrees MUSE R [place] 0 degrees MUSE T Wave [place] 7 degrees MUSE Specimen Anatomical Collection Method Collection Time Receive d Time (Source) Location / / Volume Laterality 02/19/2021 10:37 02/19/2021 AM PLUG MACHINE OPERATOR 10:41 AM PLUG MACHINE OPERATOR Impressions MUSE - 02/19/2021 10:41 AM PLUG MACHINE OPERATOR Sinus tachycardia Otherwise normal ECG When compared with ECG of 05-FEB-2021 11 :08, No significant change was found Reviewed by MICHELLE Rodrigues Narrative This result has an attachment that is no t available. Procedure Note Landon Lomeli M.D. - 02/19/2021 IMPRESSION: Sinus tachycardia Otherwise normal ECG When compared with ECG of 05-FEB-2021 11 :08, No significant change was found Reviewed by MICHELLE Rodrigues Moira Ambriz M.D. ECG ORDERABLES Performing Organization Address City/[facility]/ZIP Code Phon e Number MUSE MUSE NA (ABNORMAL) Troponin T, Baseline, 5th gen (02/19/2021 10:15 AM PLUG MACHINE OPERATOR) P athologist Signature Troponin T, 17 (H) <=15 ng/L 02/19/2021 NPRG Baseline, 5th 10:54 AM PLUG MACHINE OPERATOR gen Comment: Biotin has been identified by the alexis huang as a potential interfering substance. ??Higher concentr ations of biotin may be found in multivitamins, hair/nail supple ments, and workout supplements. ??If the result does not [facility] clinical observations, repeat testing after patient refrains fr om the use of supplements for at least 12 hours. Specimen Anatomical Collection Method Collection Time Receive d Time (Source) Location / / Volume Laterality Blood (Blood, 02/19/2021 10:15 02/19/2021 Venous) AM PLUG MACHINE OPERATOR 10:34 AM PLUG MACHINE OPERATOR Moira Ambriz M.D. LAB BLOOD TROPONIN Performing Organization Address [facility] Phon e Number [place] [address] [address] [place] [address] [address] [facility] [place] [phone] (ABNORMAL) D-Dimer (02/19/2021 10:15 AM PLUG MACHINE OPERATOR) P athologist Signature D-Dimer, P 948 (H) <=500 ng/mL 02/19/2021 NPR[facility] FEU 10:47 AM PLUG MACHINE OPERATOR Comment: D-dimer concentrations increase with age . ??For DVT/PE exclusion, in addition to clinical pre-test probabi lity, age-adjusted D-dimer cut-offs are suggested for patients >50 years old. For additional information refer to the D-dimer assay i n the Laboratory Test Catalog (LTC) and/or AskMayoExpert (RUTH) . ----ADDITIONAL INFORMATION---- D-dimer values less than or equal to 500 ng/mL fibrinogen equivalent units (FEU) may be used in co njunction with clinical pre-test probability to exclude deep vein thrombosis (DVT) and/or pulmonary emboli sm (PE). Specimen Anatomical Collection Method Collection Time Receive d Time (Source) Location / / Volume Laterality Blood (Blood, 02/19/2021 10:15 02/19/2021 Venous) AM PLUG MACHINE OPERATOR 10:34 AM PLUG MACHINE OPERATOR Moira Ambriz M.D. LAB BLOOD ADD-ON Performing Organization Address City/[facility]/ZIP Code Phon e Number [address] [address] [facility] [place] [phone] [address] (ABNORMAL) CBC with Differential, Blood (02/19/2021 10:15 AM PLUG MACHINE OPERATOR) Patholo gist Method Time Signature Hemoglobin 14.2 13.2 - 02/19/2021 NPRG 16.6 g/dL 10:44 AM PLUG MACHINE OPERATOR Hematocrit 41.7 38.3 - 02/19/2021 NPRG 48.6 % 10:44 AM PLUG MACHINE OPERATOR Erythrocytes 4.21 (L) 4.35 - 02/19/2021 NPRG 5.65 10:44 AM PLUG MACHINE OPERATOR x10(12)/L MCV 99.0 (H) 78.2 - 02/19/2021 NPRG 97.9 fL 10:44 AM PLUG MACHINE OPERATOR RBC Distrib Width 13.5 11.8 - 02/19/2021 NPRG 14.5 % 10:44 AM PLUG MACHINE OPERATOR Platelet Count 230 135 - 317 02/19/2021 NPRG x10(9)/L 10:44 AM PLUG MACHINE OPERATOR Leukocytes 7.0 3.4 - 9.6 02/19/2021 NPRG x10(9)/L 10:44 AM PLUG MACHINE OPERATOR Neutrophils 5.41 1.56 - 02/19/2021 NPRG 6.45 10:44 AM PLUG MACHINE OPERATOR x10(9)/L Lymphocytes 1.04 0.95 - 02/19/2021 NPRG 3.07 10:44 AM PLUG MACHINE OPERATOR x10(9)/L Monocytes 0.46 0.26 - 02/19/2021 NPRG 0.81 10:44 AM PLUG MACHINE OPERATOR x10(9)/L Eosinophils 0.02 (L) 0.03 - 02/19/2021 NPRG 0.48 10:44 AM PLUG MACHINE OPERATOR x10(9)/L Basophils 0.03 0.01 - 02/19/2021 NPRG 0.08 10:44 AM PLUG MACHINE OPERATOR x10(9)/L Specimen Anatomical Collection Method Collection Time Receive d Time (Source) Location / / Volume Laterality Blood (Blood, 02/19/2021 10:15 02/19/2021 Venous) AM PLUG MACHINE OPERATOR 10:34 AM PLUG MACHINE OPERATOR Moira Ambriz M.D. LAB BLOOD ADD-ON Performing Organization Address City/State/ZIP Code Phon e Number [facility]- [address] [place], [place] [address] [place] [address] (ABNORMAL) Basic Metabolic Panel (02/19/2021 10:15 AM PLUG MACHINE OPERATOR) Analysis Performed At Patho logist Time Signature Potassium, P 4.2 3.6 - 5.2 02/19/2021 NPRG mmol/L 10:50 AM PLUG MACHINE OPERATOR Sodium, P 140 135 - 145 02/19/2021 NPRG mmol/L 10:50 AM PLUG MACHINE OPERATOR Chloride, P 98 98 - 107 02/19/2021 NPRG mmol/L 10:50 AM PLUG MACHINE OPERATOR Bicarbonate, P 26 22 - 29 02/19/2021 NPRG mmol/L 10:50 AM PLUG MACHINE OPERATOR Anion Gap, P 16 (H) 7 - 15 02/19/2021 NPRG 10:50 AM PLUG MACHINE OPERATOR BUN (Blood Urea 19 8 - 24 02/19/2021 NPRG Nitrogen), P mg/dL 10:50 AM PLUG MACHINE OPERATOR Creatinine 0.73 (L) 0.74 - 02/19/2021 NPRG 1.35 mg/dL 10:50 AM PLUG MACHINE OPERATOR eGFR-Black/Afri >90 >=60 02/19/2021 NPRG can Serbian mL/min/BSA 10:50 AM PLUG MACHINE OPERATOR Comment: ----ADDITIONAL INFORMATION---- Estimated GFR calculated using the 2009 CKD_EPI creatinine equation. eGFR Non-Black/ >90 >=60 mL/min/BSA 02/19/2021 10:50 AM PLUG MACHINE OPERATOR NPRG Comment: ----ADDITIONAL INFORMATION---- Estimated GFR calculated using the 2009 CKD_EPI creatinine equation. Calcium, Total, P 10.0 8.6 - 10.0 mg/dL 02/19/2021 10:5 0 AM PLUG MACHINE OPERATOR NPRG Glucose, P 134 70 - 140 mg/dL 02/19/2021 10:50 AM PLUG MACHINE OPERATOR NPRG Specimen Anatomical Collection Method Collection Time Receive d Time (Source) Location / / Volume Laterality Blood (Blood, 02/19/2021 10:15 02/19/2021 Venous) AM PLUG MACHINE OPERATOR 10:34 AM PLUG MACHINE OPERATOR Moira Ambriz M.D. LAB BLOOD ADD-ON Performing Organization Address City/State/ZIP Code Phon e Number [facility]- [address] [place] [address] [place] [address] [place] [address] documented in this encounter Visit Diagnoses Diagnosis Weakness General - Primary Anxiety documented in this encounter Administered Medications Inactive Administered Medications - up to 3 most recent administrations Medication Order MAR Action Action Date Dose Rate Site acetaminophen tablet 1,000 mg Given 02/19/2021 12:44 PM PLUG MACHINE OPERATOR 1,00 0 mg (TYLENOL) 1,000 mg, oral, Once, On Fri02/19/21 at 1241, For 1 dose iohexoL 350 mg iodine/mL solution 1-200 mL Given 02/19/2021 2:34 PM PLUG MACHINE OPERATOR 120 mL (OMNIPAQUE) 1-200 mL, intravenous, Once in imaging, contrast, Starting on Fri02/19/21 at 1443, For 1 dose, Dose per Radiant Medication Guidelines LORazepam injection 1 mg (ATIVAN) Given 02/19/2021 2:25 PM PLUG MACHINE OPERATOR 1 mg 1 mg, intravenous, Once, On Fri02/19/21 at 1419, For 1 dose, For intravenous use, dilute with equal volume of 0.9% NS NaCl 0.9 % bolus 1,000 mL New Bag 02/19/2021 10:35 AM PLUG MACHINE OPERATOR 1,000 mL 1000 mL/hr 1,000 mL, intravenous, at 1,000 mL/hr, Administer over 1 Hours, Once, On Fri02/19/21 at 1030, For 1 dose NaCl 0.9 % bolus 100 mL Bolus from Bag 02/19/2021 2:34 PM PLUG MACHINE OPERATOR 100 mL 100 mL/hr 100 mL, intravenous, at 100 mL/hr, Administer over 1 Hours, Once, On Fri02/19/21 at 1445, For 1 dose sodium chloride 0.9 % injection 10 mL Given 02/19/2021 2:25 PM PLUG MACHINE OPERATOR 10 mL 10 mL, intravenous, As needed, line care, Starting on Fri02/19/21 at 1029, Peripheral Intravenous Catheter and Rapid Infusion Catheter, prior to blood sampling, post blood transfusion or post blood sampling Given 02/19/2021 10:10 AM PLUG MACHINE OPERATOR 10 mL sodium chloride 0.9 % injection 10 mL Given 02/19/2021 2:34 PM PLUG MACHINE OPERATOR 10 mL 10 mL, intravenous, Once in imaging, line care, Starting on Fri02/19/21 at 1443, For 1 dose sodium chloride 0.9 % injection 3 mL 3 mL, intravenous, As needed, line care, Starting on Fri02/19/21 at 1029, Prior to and following infusion and between multi ple consecutive infusions: sodium chloride 0.9 % injection sodium chloride 0.9 % injection 3 mL 3 mL, intravenous, Every 12 hours schedu led, First dose on Fri02/19/21 at 2100, Peripheral Intravenous Catheter and Rapi d Infusion Catheter, when no infusion to maintain patency documented in this encounter Active and Recently Administered Medications Times are shown in PLUG MACHINE OPERATOR. Scheduled Medication Order 02/17/2021 02/18/2021 02/19/2021 acetaminophen tablet 1,000 mg (TYLENOL) (COMPLETED) 1244 (Given - Provider: Halina Mary R.N.) 1,000 mg, oral, Once, On Fri02/19/21 at 1241, For 1 dose LORazepam injection 1 mg (ATIVAN) (COMPLETED) 1425 (Given - Provider: Halina Mary R.N.) 1 mg, intravenous, Once, On Fri02/19/21 at 1419, For 1 dose, For intravenous use, dilute with equal volume of 0.9% NS NaCl 0.9 % bolus 1,000 mL (COMPLETED) 1035 (New Bag - Provider: Halina Mary R.N.)1152 (Stopped - Provider: Isidro Montejo R.N.) 1,000 mL, intravenous, at 1,000 mL/hr, A dminister over 1 Hours, Once, On Fri02/19/21 at 1030, For 1 dose NaCl 0.9 % bolus 100 mL (COMPLETED) 1434 (Bolus from Bag - Provider: Vernell Dela Cruz(R)) 100 mL, intravenous, at 100 mL/hr, Admin ister over 1 Hours, Once, On Fri02/19/21 at 1445, For 1 dose sodium chloride 0.9 % injection 3 mL 3 mL, intravenous, Every 12 hours schedu led, First dose on Fri02/19/21 at 2100, Peripheral Intravenous Catheter and Rapid Infusion Catheter, when no infusion to maintain patency PRN Medication Order 02/17/2021 02/18/2021 02/19/2021 iohexoL 350 mg iodine/mL solution 1-200 mL (OMNIPAQUE) (COMPLETE D) 1434 (Given - Provider: Vernell Dela Cruz(R) - Comment: [phone]) 1-200 mL, intravenous, Once in imaging, contrast, Starting on Fri02/19/21 at 1443, For 1 dose, Dose per Radiant Medication Guidelines sodium chloride 0.9 % injection 10 mL 1010 (Given - Provider: Halina Mary R.N.)1425 (Given - Provider: Halina Mary R.N.) 10 mL, intravenous, As needed, line care , Starting on Fri02/19/21 at 1029, Peripheral Intravenous Catheter and Rapid Infusion Catheter, prior to blood sampling, post blood transfusion or post blood sampling sodium chloride 0.9 % injection 10 mL (COMPLETED) 1434 (Given - Provider: Vernell Dela Cruz(R)) 10 mL, intravenous, Once in imaging, vito e care, Starting on Fri02/19/21 at 1443, For 1 dose sodium chloride 0.9 % injection 3 mL 3 mL, intravenous, As needed, line care, Starting on Fri02/19/21 at 1029, Prior to and following infusion and between multiple consecutive infusions: sodium chloride 0.9 % injection documented in this encounter Additional Health Concerns Assessment Noted Time PHQ-9 Depression Total Score: 2 09/17/2018 9:08 AM CDT documented as of this encounter Care Teams Wastewater Analyst Lab Analyst Relationship Specialty Start Date End Date Norma Kenny APRN, C.N.P. PCP - General 09/12/[address] [place] [phone] documented as of this encounter
--- OUTSIDE RECORDS SUMMARY | 2022-01-25 11:37 | XMS_ITS | Encounter Summary ---
:1965 Author Organization [facility] Address [address] [place] [address] Care Team Providers Name Role Phone Norma Kenny APRN C.N.P. Primary Care Provider [phone] Reason for Referral Outpatient (Routine) - Closed Specialty Diagnoses / Procedures Referred By Contact Refer red To Contact Family Medicine Norma Kenny APRN, [facility] C.N.P. [address] [place] [phone] Referral ID Status Reason Start Date Expiration Date Visits Requ ested Visits Authorized [id number] Closed 03/02/2021 03/02/2022 1 1 ICAL CARE PHYSICIAN ASSISTANT Outpatient (Routine) - Authorized Specialty Diagnoses / Procedures Referred By Contact Refer red To Contact Orthopedic Surgery Diagnoses Pain Shoulder Left Norma Kenny [facility] STEVEN, C.N.P. [address] [place] [address] Referral ID Status Reason Start Date Expiration Date Visits V isits Requested Authorized [id number] Authorized 03/02/2021 03/02/2022 1 1 Scheduling Instructions Ortho internal referral panel order, dedrick ging before Consult visit ICAL CARE PHYSICIAN ASSISTANT Reason for Visit Reason Comments Extremity Weakness Encounter Details Date Type Department Care Team Description 03/02/2021 Office Visit Department of Family Norma Kenny Pa in Shoulder Left (Primary Dx); Medicine in [facility] COMMERCIAL REAL ESTATE LENDER, C.N.P. Anxiety; [place], [place] [address] Screening Cancer Colon; [address] [place], [place] Anxiety Generalized Disorder ; [place] [address] Post COVID-19 Condition [phone] Social History Tobacco Use Types Packs/Day Years [...] How often do you attend shinto or sikh More than 4 time s [...] at Date Recorded Male 03/25/2018 1:01 PM CRITICAL CARE PHYSICIAN ASSISTANT documented as of this encounter Last Filed Vital Signs Vital Sign Reading Time Taken Comments Blood Pressure 125/81 03/02/2021 10:27 AM CRITICAL CARE PHYSICIAN ASSISTANT Pulse 99 03/02/2021 9:36 AM CRITICAL CARE PHYSICIAN ASSISTANT Temperature 36.5 ??C (97.7 ??F) 03/02/2021 9:36 AM CRITICAL CARE PHYSICIAN ASSISTANT Respiratory Rate 20 03/02/2021 9:36 AM CRITICAL CARE PHYSICIAN ASSISTANT Oxygen Saturation 98% 03/02/2021 9:36 AM CRITICAL CARE PHYSICIAN ASSISTANT Inhaled Oxygen Concentration - - Weight 145 kg (319 lb 3.2 oz) 03/02/2021 9:36 AM CRITICAL CARE PHYSICIAN ASSISTANT Height - - Body Mass Index 40.97 02/21/2021 12:52 PM CRITICAL CARE PHYSICIAN ASSISTANT documented in this encounter Patient Instructions Patient InstructionsNorma Kenny APRN, C.N.P. - 03/02/2021 9:45 AM CRITICAL CARE PHYSICIAN ASSISTANT Proceed with scheduling MRI. Consider COVID shot (Pfizer or Moderna) in 3-6 weeks once you are feeling better. Sertraline - increase to 75mg daily x 10 days, then 100mg daily thereafter. Lorazepam - only as needed for severe anxiety. Follow up in 1 month for update on symptoms, or sooner if any concerns. ICAL CARE PHYSICIAN ASSISTANT documented in this encounter Progress Notes Norma Kenny APRN, C.N.P. - 03/02/2021 9:45 AM CST SUBJECTIVE CHIEF COMPLAINT/REASON FOR VISIT Extremity Weakness HISTORY OF PRESENT ILLNESS Saad Murray is a 55 y.o. male who presents for follow up of recent COVID-19 infection, anxiety, back and shoulder pain. Twin states he has all symptoms of COVID-19 in late November but did notcome in to be seen, he just stayed home. This slowly improved over time until about 3-4 weeks later he began feeling very ill again. He had a positive COVID-19 antibody test on 01/25. He later developed lower extremity weakness and was seen in the emergency department and found to have significant hyponatremia, hypokalemia, elevated liver enzymes. No evidence of cardiac pathology or thromboembolism. He was discharged on 02/07 to home, but over the next 10 days developed significant weakness again and so returned to ED. His workup at that time was normal, but he was having a lot of anxiety. He followed up with one of my colleagues on 02/21 and was started on Sertraline and has been taking lorazepamas needed 1-2x per day. He has been out of this for the past 3-4 days. He states he thinks both medications are helping and he feels less anxious. He still feels very fatigued and cannot always complete a full work day at a [employer]. He has generalized back pain and left shoulder pain and has been seeing a chiropractor. He thinks he needs to go back to see ortho for a shoulder injection to get him through the winter. The following screenings were completed: MELODY-7 Total Score (max 21): 8 PHQ-9 Total Score (max 27): 4 (03/02/21 1028) PHQ-2 Score: 0 REVIEW OF SYSTEMS As stated above. Otherwise [...] EXAM AND MEDICATION CHECK FOR MORE REFILLs. ??? lisinopriL (PRINIVIL,ZESTRIL) 20 mg tablet TAKE 1 TABLET(20 MG) BY MOUTH DAILY ??? metoprolol succinate (TOPROL-XL) 25 mg 24 hr tablet TAKE 1 TABLET(25 MG) BY MOUTH DAILY FOR BLOOD PRESSURE ??? ondansetron ODT (ZOFRAN-ODT) 4 mg disintegrating tablet Take 1 tablet (4 mg total) by mouth every 8 (eight) hours as needed for nausea or vomiting. ??? pantoprazole (PROTONIX) 40 mg EC tablet Take 1 tablet (40 mg total) by mouth as needed for heartburn. ??? sertraline (ZOLOFT) 25 mg tablet Take 1 tab daily for 6 days then increase to 2 tabs daily. ??? sertraline (ZOLOFT) 50 mg tablet Take 75mg (1.5 tabs) daily for 10 days, then increase to 100mg (2 tabs) daily. ??? LORazepam (ATIVAN) 1 mg tablet Take 1 tablet (1 mg total) by mouth 2 (two) times a day as neededfor anxiety for up to 10 days. 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 Has no pets. Plans to move into [place] this year after renovation and sell current home. OBJECTIVE VITAL SIGNS BP 125/81 Pulse 99 Temp 36.5 ??C Resp 20 Wt (!) 145 kg SpO2 98% BMI 40.97 kg/m?? PHYSICAL EXAMINATION General: Patient is alert, oriented and appears to be in no distress. HENT: Head is atraumatic and normocephalic. Mucous membranes are moist. There is no pharyngeal erythema. Ears are externally normal. Bilateral TMs appear normal. Neck is supple and without mass or adenopathy. Cardiovascular: Heart is regular rate and rhythm. There are no murmurs, gallops or rubs. Respiratory: Breathing is nonlabored. Lungs are clear to auscultation bilaterally. Extremities: There is no lower extremity edema. Abdomen: Soft and nontender throughout. No organomegaly. Skin: No rashes or lesion noted. Neurologic: No neurologic deficit noted. ASSESSMENT / PLAN #1 Generalized Anxiety Disorder Symptoms improving. Continue sertraline wean up. 75mg x 10 days then increase to 100mg daily. Use lorazepam only as needed for breakthrough anxiety and not daily. Follow up in 4-6 weeks or sooner if any concerns. - LORazepam (ATIVAN) 1 mg tablet; Take 1 tablet (1 mg total) by mouth 2 (two) times a day as needed for anxiety for up to 10 days., Starting Fri03/02/2021, Until Fri03/12/2021 at 2359, Normal - sertraline (ZOLOFT) 50 mg tablet; Take 75mg (1.5 tabs) daily for 10 days, then increase to 100mg (2 tabs) daily., Normal - Family Medicine office visit (clinic); Future; Expected date: 04/02/2021 #2 Pain Shoulder Left He will return to orthopedics for hopeful left shoulder injection. His last one was 3 years ago and he states it was helpful. He knows he will have to have surgery on this eventually but is hoping to wait until after his next job. - Orthopedic Surgery - Shoulder non surgical consult (clinic); Future; Expected date: 03/02/2021 (After tests) #3 Screening Cancer Colon He declines colonoscopy but states he will do a Cologuard. He understands colonoscopy is the best test and may get this done in the next year or two. - Cologuard-Sent Out Lab; Future; Expected date: 03/03/2021 #5 Post COVID-19 Condition He still has a lot of fatigue and is not back to 100%. He states he definitely plans to get the COVID-19 vaccine now as he never wants to go through that again, and we will plan to start his series at his follow up visit in one month unless something changes. All questions answered. This was a 45 minute visit, of which 30+ minutes was spent in direct patient discussion and coordination of care. Norma eKnny APRN, C.N.P. ICAL CARE PHYSICIAN ASSISTANT documented in this encounter Plan of Treatment Upcoming Encounters Date Type Specialty Care Team Description 02/15/2022 Office Visit Orthopedic Surgery RavinMadyson stacy Joanna kerns [address] [place], [place] [phone] (Wo rk) Pending Results Name Type Priority Associated Diagnoses Date/Ti me Cologuard-Sent Out Lab Lab Routine Screening Cancer C olon 03/03/2021 2:00 AM CRITICAL CARE PHYSICIAN ASSISTANT Scheduled Orders Name Type Priority Associated Diagnoses Order S chedule Cologuard-Sent Out Lab Lab Routine Screening Cancer C olon Expected: 03/03/2021, Expires: 2022 Scheduled Referrals Name Type Priority Associated Order Schedule Diagnoses Orthopedic Surgery - Outpatient Referral Routine Pain Shoulder Left Expected: Shoulder non 03/02/2021 surgical consult (Approximat e), (clinic) Expires: 05/31/2022 Family Medicine Outpatient Referral Routine Expec tim: office visit 04/02/2021 (clinic) (Approximate), Expires: 05/31/2022 documented as of this encounter Visit Diagnoses Diagnosis Pain Shoulder Left - Primary Anxiety Screening Cancer Colon Anxiety Generalized Disorder Post COVID-19 Condition documented in this encounter Additional Health Concerns Assessment Noted Time PHQ-9 Depression Total Score: 4 03/02/2021 10:28 AM CS T documented as of this encounter Care Teams Direct Chill Casting Operator Relationship Specialty Start Date End Date Norma Kenny APRN, C.N.P. PCP - General 09/12/[address] [place] [address] documented as of this encounter
--- OUTSIDE RECORDS SUMMARY | 2022-01-25 11:37 | XMS_ITS | Encounter Summary ---
:1965 Author Organization [facility] Address [address] [place] [address] Care Team Providers Name Role Phone Norma Kenny APRN, C.N.P. Primary Care Provider [phone] Encounter Details Date Type Department Care Team Description 11/06/2020 Orders Only [facility] Kenny APRN, C.N.P. 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 PCP - General 09/12/[address] [place] [address] documented as of this encounter
--- OUTSIDE RECORDS SUMMARY | 2022-01-25 11:37 | XMS_ITS | Encounter Summary ---
:1965 Author Organization [facility] Address [address] [place] [address] Care Team Providers Name Role Phone Norma Kenny APRN, C.N.PNikhil Primary Care Provider [phone] Encounter Details Date Type Department Care Team Description 03/03/2021 Orders Only Department of Family [facility] Medicine in [facility] STEVEN C.N.PNikhil [place], [place] [address] [place] [phone] Social History Tobacco Use Types Packs/Day Years [...] or relatives? How often do you attend gnosticist or roman catholic More than 4 time s per year 09/17/2018 services? 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 documented as of this encounter Plan of Treatment Upcoming Encounters Date Type Specialty Care Team Description 02/15/2022 Office Visit Orthopedic Surgery Madyson Rosa, D.ONikhil [address] [place], [place] [phone] (Wo rk) Pending Results Name Type Priority Associated Diagnoses Date/Ti me Cologuard-Sent Out Lab Lab Routine Screening Cancer C olon 03/03/2021 2:00 AM ALTERNATIVE DISPUTE RESOLUTION MEDIATOR documented as of this encounter Visit Diagnoses Diagnosis Screening Cancer Colon documented in this encounter Additional Health Concerns Assessment Noted Time PHQ-9 Depression Total Score: 4 03/02/2021 10:28 AM CS T documented as of this encounter Care Teams Hand Glass Cutter Relationship Specialty Start Date End Date Norma Kenny, STEVEN, C.N.P. PCP - General 09/12/[address] [place] [phone] documented as of this encounter
--- OUTSIDE RECORDS SUMMARY | 2022-01-25 11:38 | XMS_ITS | Encounter Summary ---
:1965 Author Organization [facility] Address [address] [place] [address] Care Team Providers Name Role Phone Norma Kenny APRN, C.N.P. Primary Care Provider [phone] Encounter Details Date Type Department Care Team Description 05/01/2020 Orders Only [facility] Kenny, Monitoring For SENIOR SQL SERVER DEVELOPER, C.N.P. Therapeutic Drug [address] [place] [address] Social History Tobacco Use Types Packs/Day Years [...] How often do you attend anglican or latter-day More than 4 time s per year [...] minutes do you engage in exercise at is 40 min 09/17/2018 level? 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 [address] [place], [place] [phone] (Wo rk) documented as of this encounter Visit Diagnoses Diagnosis Monitoring For Therapeutic Drug Therapy documented in this encounter Additional Health Concerns Assessment Noted Time PHQ-9 Depression Total Score: 2 09/17/2018 9:08 AM CDT documented as of this encounter Care Teams Hide Cleaner Relationship Specialty Start Date End Date Norma Kenny, STEVEN, C.N.P. PCP - General 09/12/[address] [place] [phone] documented as of this encounter
--- OUTSIDE RECORDS SUMMARY | 2022-01-25 11:38 | XMS_ITS | Encounter Summary ---
:[address] [facility] Address [address] [place] [address] Care Team Providers Name Role Phone Norma Kenny APRN, C.NGregg Primary Care Provider [phone] Reason for Visit Reason Comments Communication Encounter Details Date Type Department Care Team Description 08/04/2019 Clinical Communication Department of Reyes Ballard, Communication Urology [place], Ph.D. [address] [phone] Social History Tobacco Use Types Packs/Day Years [...] or relatives? How often do you attend adventism or muslim More than 4 time s per year 09/17/2018 services? 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 - 08/09/2019 9:34 AM CDT Spoke to pt and at this time there is no available appointments with Dr. Ballard in [place] until September however can check with mill order scheduler to see if there is a cancellation list and/or offer him an appointment in [place]. Pt will talk with mill order scheduler. Pt was warm transferred to [facility] in scheduling to discuss appointment availability. Telephone Encounter - Iris Villarreal - 08/04/2019 7:51 AM CDT Twin was scheduled to see Dr Ballard today but he has developed a cough and the nurse line suggested that he cancel. Dr Ballards next opening is September 28 and Twin wants to know what he should do. I offered avideo visit but he was not interested in that. documented in this encounter Plan of Treatment Upcoming Encounters Date Type Specialty Care Team Description 02/15/2022 Office Visit Orthopedic Surgery Madyson Rosa, D.ONikhil [address] [place], [place] [phone] (Wo rk) documented as of this encounter Visit Diagnoses Not on filedocumented in this encounter Additional Health Concerns Assessment Noted Time PHQ-9 Depression Total Score: 2 09/17/2018 9:08 AM CDT documented as of this encounter Care Teams Extermination Inspector Relationship Specialty Start Date End Date Norma Kenny, STEVEN, C.N.P. PCP - General 09/12/[address] [place] [phone] documented as of this encounter
--- OUTSIDE RECORDS SUMMARY | 2022-01-25 11:38 | XMS_ITS | Encounter Summary ---
:1965 Author Organization [facility] Address [address] [place] [address] Care Team Providers Name Role Phone Norma Kenny APRN, C.N.P. Primary Care Provider [phone] Reason for Visit Reason Comments Blood Pressure Check Outpatient (Routine) - Closed Specialty Diagnoses / Procedures Referred By Contact Refer red To Contact Family Medicine Norma Kenny APRN, [facility] C.N.P. [address] [place] [address] Referral ID Status Reason Start Date Expiration Date Visits Requ ested Visits Authorized [id number] Closed 08/18/2019 08/17/2020 1 1 Encounter Details Date Type Department Care Team Description 09/06/2019 Nurse Only Department of [facility] Caden Kenny APRN, C.N.P. [address] [place] [phone] Blood [facility] R.M.ANikhil [place], [place] [address] [place] [phone] Social History Tobacco Use Types Packs/Day Years [...] or relatives? How often do you attend pentecostalism or mormonism More than 4 time s per year 09/17/2018 services? 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 - 09/06/2019 11:45 AM CDT Patient came in today for a blood pressure check per (Norma Kenny C.N.P.), the patients blood pressure reading was 128/70, (right arm), sitting, (large) cuff. Patients pharmacy, allergies and medications where reviewed while patient was here in the clinic. ??? Patient has been checking their blood pressures at home. Per patient blood pressures have be running lower than he gets while in clinic, checks here and there at home. ??? Patient brought in their machine to see if there readings are close to our readings here in clinic. (no) Patient was advised that this message will be sent to the provider and will possibly get a call fromthe provider or the nurses advising what the plan is next. documented in this encounter Plan of Treatment Upcoming Encounters Date Type Specialty Care Team Description 02/15/2022 Office Visit Orthopedic Surgery Madyson Rosa, DaydayONikhil [address] [place], [place] [phone] (Wo rk) documented as of this encounter Visit Diagnoses Diagnosis Hypertension Essential Primary - Primary documented in this encounter Additional Health Concerns Assessment Noted Time PHQ-9 Depression Total Score: 2 09/17/2018 9:08 AM CDT documented as of this encounter Care Teams Investment Banking Manager Relationship Specialty Start Date End Date Norma Kenny APRN, C.N.P. PCP - General 09/12/[address] [place] [phone] documented as of this encounter
--- OUTSIDE RECORDS SUMMARY | 2022-01-25 11:38 | XMS_ITS | Encounter Summary ---
:1965 Author Organization [facility] Address [address] [place] [address] Care Team Providers Name Role Phone Norma Kenny APRN C.N.P. Primary Care Provider [phone] Reason for Visit Reason Comments Blood Pressure Check Encounter Details Date Type Department Care Team Description 09/06/2019 Clinical Communication Department of Norma Kenny Bl ood Pressure Family Medicine in ST[place]EN [place] Check [place], C.N.P. 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 - 09/07/2019 9:21 AM CDT Called patient his side pain is not better he has an appointment with Dr. Ballard tomorrow at 12:45 p.m. with a check in time of 12:30 p.m. He will follow up with Norma once he see's Dr. Ballard. Discussedgood blood pressure reading. No other questions or concerns at this time. Telephone Encounter - Norma Kenny APRN, C.N.P. - 09/07/2019 8:57 AM CDT Blood pressure looks good! How is his side pain? Thanks, TK Telephone Encounter - Iris Edwards R.MGilson - 09/06/2019 11:54 AM CDT Patient came in today for a blood pressure check per (Norma Kenny, C.N.P.), the patients blood pressure reading was [...] Surgery Madyson Rosa D.O. [address] [place], [place] [phone] (Wo rk) documented as of this encounter Visit Diagnoses Not on filedocumented in this encounter Additional Health Concerns Assessment Noted Time PHQ-9 Depression Total Score: 2 09/17/2018 9:08 AM CDT documented as of this encounter Care Teams Python Developer Relationship Specialty Start Date End Date Norma Kenny, STEVEN, C.N.P. PCP - General 09/12/[address] [place] [phone] documented as of this encounter
--- OUTSIDE RECORDS SUMMARY | 2022-01-25 11:38 | XMS_ITS | Encounter Summary ---
:1965 Author Organization [facility] Address [address] [place] [address] Care Team Providers Name Role Phone Norma Kenny APRN, C.NNikhilPNikhil Primary Care Provider [phone] Reason for Visit Reason Comments Med Refill Encounter Details Date Type Department Care Team Description 10/22/2020 Refill Department of Family Medicine Shayna Burton M.D. Med Refill in [facility] [address] [place] [address] [place] [address] [phone] Social History Tobacco Use Types Packs/Day Years [...] or relatives? How often do you attend cheondoism or sabianism More than 4 time s per year 09/17/2018 services? Do you belong to any clubs or organizations No 09/17/2018 such as cheondoism groups, unions, fraternal or athletic groups, or [...] Date Recorded Male 03/25/2018 1:01 PM RN TELEPHONE TRIAGE documented as of this encounter Miscellaneous Notes Telephone Encounter - Jeannette Bernardo L.P.N. - 10/23/2020 11:10 AM CDT Unable to refill per protocol: Name of Medications Needing Refill: lisinopril Last Refill Date:07/21/20 Additional Information: Due for lab work Last / Future Appointment: Last OV 01/18/20 No future OV scheduled. documented in this encounter Plan of Treatment Upcoming Encounters Date Type Specialty Care Team Description 02/15/2022 Office Visit Orthopedic Surgery Madyson Rosa il, D.O. [address] [place], [place] [phone] (Wo rk) documented as of this encounter Visit Diagnoses Diagnosis Hypertension Essential Primary documented in this encounter Additional Health Concerns Assessment Noted Time PHQ-9 Depression Total Score: 2 09/17/2018 9:08 AM CDT documented as of this encounter Care Teams Airplane Electrician Relationship Specialty Start Date End Date Norma Kenny, STEVEN, C.N.P. PCP - General 09/12/[address] [place] [address] documented as of this encounter
--- OUTSIDE RECORDS SUMMARY | 2022-01-25 11:38 | XMS_ITS | Encounter Summary ---
:1965 Author Organization [facility] Address [address] [place] [address] Care Team Providers Name Role Phone Norma Kenny APRN, C.N.P. Primary Care Provider [phone] Reason for Referral Outpatient (Routine) - Closed Specialty Diagnoses / Procedures Referred By Contact Refer red To Contact Family Medicine Diagnoses Hyperlipidemia Hypertension Essential Primary Gastroesophageal Reflux Disease Norma Kenny APRN, [facility] C.N.P. [address] [place] [address] Referral ID Status Reason Start Date Expiration Date Visits Requ ested Visits Authorized [id number] Closed 08/15/2020 08/15/2021 1 1 Reason for Visit Reason Comments Med Refill Encounter Details Date Type Department Care Team Description 08/15/2020 Refill Department of Family Medicine Caden Kenny APRN, Med Refill in [facility] C.N.P. 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 - 08/15/2020 1:18 PM CDT Name of Medication(s) Needing Refill: Atorvastatin Additional Information: Lab Results Component Value Date CHOL 218 (H) 05/21/2019 Lab Results Component Value Date HDL 80 05/21/2019 Lab Results Component Value Date LDLCALC 127 05/21/2019 Lab Results Component Value Date TRIG 56 05/21/2019 Lab Results Component Value Date TTLCHOLHDLRT 4.7 (H) 05/28/2012 Due for labs/OV. Last Appointment: 01/18/20 acute. Future Appointment: None- Due for CME. Order placed. documented in this encounter Plan of Treatment Upcoming Encounters Date Type Specialty Care Team Description 02/15/2022 Office Visit Orthopedic Surgery Madyson Rosa D.O. [address] [place], [place] [address] (Wo rk) Scheduled Referrals Name Type Priority Associated Diagnoses Order S [facility] Family Medicine Outpatient Referral Routine Hyperlipidem ia Expected: office visit Hypertension 08/15/2020 (clinic) Essential Primar y (Approximate), Gastroesophageal Expires: Reflux Disease 08/16/2023 documented as of this encounter Visit Diagnoses Diagnosis Hypertension Essential Primary - Primary Hyperlipidemia Gastroesophageal Reflux Disease Hypercholesterolemia documented in this encounter Additional Health Concerns Assessment Noted Time PHQ-9 Depression Total Score: 2 09/17/2018 9:08 AM CDT documented as of this encounter Care Teams Sourcing Internship Relationship Specialty Start Date End Date Norma Kenny, STEVEN, C.N.P. PCP - General 09/12/[address] [place] [address] documented as of this encounter
--- OUTSIDE RECORDS SUMMARY | 2022-01-25 11:38 | XMS_ITS | Encounter Summary ---
:1965 Author Organization [facility] Address [address] [place] [address] Care Team Providers Name Role Phone Norma Kenny APRN, C.N.P. Primary Care Provider [phone] Reason for Visit Reason Comments Med Refill Encounter Details Date Type Department Care Team Description 09/28/2019 Refill Department of Family Medicine Caden Kenny APRN, Med Refill in [facility] so C.N.P. 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 - 09/28/2019 1:31 PM CDT Last OV:06-23-2019 Last refill: 06-29-2019 Last labs: 05-21-2019 Upcoming appt: 03-01-2020 with Urology documented in this encounter Plan of Treatment Upcoming Encounters Date Type Specialty Care Team Description 02/15/2022 Office Visit Orthopedic Surgery Madyson Rosa il, D.ONikhil [address] [place], [place] [address] (Wo rk) documented as of this encounter Visit Diagnoses Diagnosis Palpitations documented in this encounter Additional Health Concerns Assessment Noted Time PHQ-9 Depression Total Score: 2 09/17/2018 9:08 AM CDT documented as of this encounter Care Teams Desk Monitor Relationship Specialty Start Date End Date Norma Kenny APRN, C.N.P. PCP - General 09/12/[address] [place] [address] documented as of this encounter
--- OUTSIDE RECORDS SUMMARY | 2022-01-25 11:38 | XMS_ITS | Encounter Summary ---
:1965 Author Organization [facility] Address [address] [place] [address] Care Team Providers Name Role Phone Norma Kenny APRN, C.N.P. Primary Care Provider [phone] Reason for Visit Reason Comments Med Refill Encounter Details Date Type Department Care Team Description 11/16/2019 Refill Department of Family Medicine Caden Kenny APRN, Med Refill in [facility] so C.N.P. 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 - 11/16/2019 9:40 AM CDT Medications Needing Refill: Atorvastatin 20 mg Last Refilled: 08/18/19 #90 Last Appointment: 06/23/2019 for Phone visit Future Appointment: N/A Lab Results Component Value Date CHOL 218 (H) 05/21/2019 Lab Results Component Value Date HDL 80 05/21/2019 Lab Results Component Value Date LDLCALC 127 05/21/2019 Lab Results Component Value Date TRIG 56 05/21/2019 Lab Results Component Value Date TTLCHOLHDLRT 4.7 (H) 05/28/2012 documented in this encounter Plan of Treatment Upcoming Encounters Date Type Specialty Care Team Description 02/15/2022 Office Visit Orthopedic Surgery Madyson Rosa, D.ONikhil [address] [place], [place] [phone] (Wo rk) documented as of this encounter Visit Diagnoses Diagnosis Hyperlipidemia documented in this encounter Additional Health Concerns Assessment Noted Time PHQ-9 Depression Total Score: 2 09/17/2018 9:08 AM CDT documented as of this encounter Care Teams Screen Printing Machine Operator Helper Relationship Specialty Start Date End Date Norma Kenny APRN, C.N.P. PCP - General 09/12/[address] [place] [phone] documented as of this encounter
--- OUTSIDE RECORDS SUMMARY | 2022-01-25 11:38 | XMS_ITS | Encounter Summary ---
:1965 Author Organization [facility] Address [address] [place] [address] Care Team Providers Name Role Phone Norma Kenny APRN, C.N.P. Primary Care Provider [phone] Reason for Visit Reason Comments Med Refill Encounter Details Date Type Department Care Team Description 06/26/2019 Refill Department of Family Medicine Caden Kenny APRN, Med Refill in [facility] so C.N.P. [address] [place] [address] [place] [address] (Wo rk) Social History Tobacco Use Types [...] or relatives? How often do you attend voodoo or advent More than 4 time s per year 09/17/2018 services? 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 - 06/28/2019 9:56 AM CDT Medications Needing Refill: Metoprolol 25 mg Last Refilled: #90 Last Appointment: Virtual visit 06/23/2019; in clinic 05/19/19 Future Appointment: N/A documented in this encounter Plan of Treatment Upcoming Encounters Date Type Specialty Care Team Description 02/15/2022 Office Visit Orthopedic Surgery Madyson Rosa, D.ONikhil [address] [place], [place] [phone] (Wo rk) documented as of this encounter Visit Diagnoses Diagnosis Palpitations documented in this encounter Additional Health Concerns Assessment Noted Time PHQ-9 Depression Total Score: 2 09/17/2018 9:08 AM CDT documented as of this encounter Care Teams Cotton Bag Sewer Relationship Specialty Start Date End Date Norma Kenny APRN, C.N.P. PCP - General 09/12/[address] [place] [address] documented as of this encounter
--- OUTSIDE RECORDS SUMMARY | 2022-01-25 11:38 | XMS_ITS | Encounter Summary ---
:1965 Author Organization [facility] Address [address] [place] [address] Care Team Providers Name Role Phone Norma Kenny APRN C.N.PNikhil Primary Care Provider [phone] Reason for Referral Outpatient (Routine) - Closed Specialty Diagnoses / Procedures Referred By Contact Refer red To Contact Urology Reyes Ballard M. D., Ph.D. [address] [address] Referral ID Status Reason Start Date Expiration Date Visits Requ ested Visits Authorized [id number] Closed 09/08/2019 09/07/2020 1 1 Reason for Visit Reason Comments Follow-up Outpatient (Routine) - Canceled Specialty Diagnoses / Procedures Referred By Contact Refer red To Contact Urology No Whitlock APRN, C.N.PNikhil, [facility] D.N.P. [address] [place] [phone] Referral ID Status Reason Start Date Expiration Date Visits V isits Requested Authorized [id number] Canceled 03/10/2019 03/09/2020 1 1 Encounter Details Date Type Department Care Team Description 09/08/2019 Office Visit Department of Urology Reyes Ballard M ass Epididymis (Primary Dx); in [place], Ph.D. 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 - 09/08/2019 12:45 PM CDT Date of Service: 09/08/2019 S: Saad Murray is a 53 y.o. male seen in clinic today for his: - Epididymal mass: Patient is status post vasectomy about 15 years ago. 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 He is also having some chronic left groin discomfort, worse with activity. 03/10/2019 Post void residual: 37 mL - Prostate Cancer Screening: No family history of prostate cancer. Today, he denies fevers, nausea, vomiting, flank pains, hematuria, or dysuria. O: Pulse 79 Temp 36.7 ??C (Temporal) SpO2 99% Pleasant and engaging. No apparent distress. : -- No CVA tenderness bilaterally noted with percussion. -- There are no obvious inguinal hernias. -- No obvious genital skin lesions. -- Adequate meatus, no penile discharge noted. -- Testes down bilaterally and normal to palpation. -- vasectomy changes palpable. There is a small palpable right epididymal mass, slightly tender to palpation. There is a left paratesticular small mass which I suspect is epididymal in origin, slightly tender to palpation -- Perineum is nontender to palpation. -- No external rectal masses or lesions. DANIEL shows good sphincter tone; no obvious rectal vault masses nor nodules. -- Prostate is normal to palpation without nodules or masses and is nontender. Lab Results Component Value Date PSA 0.62 09/17/2018 Lab Results Component Value Date URINESOURCE Midstream 05/25/2019 CLARITYU Clear 05/25/2019 COLORU Yellow 05/25/2019 NITRITEU Negative 05/25/2019 LEUKOCYTESU Negative 05/25/2019 PROTEINQUALU Negative 05/25/2019 GLUCOSEU Negative 05/25/2019 KETONESU Trace (A) 05/25/2019 BILIRUBINU Negative 05/25/2019 PHURINE 7.0 05/25/2019 SPECGRAV 1.020 05/25/2019 UROBILINOGEN 2.0 (A) 05/25/2019 RBCU Negative 05/25/2019 Lab Results Component Value Date/Time MISCCULTURE No growth after 1 day of incubation. 05/25/2019 09:36 AM Us Scrotum Result Date: 06/30/2019 EXAM: US SCROTUM COMPARISON: 02/23/2019. FINDINGS: Right testicle: Normal size, echotexture, and blood flow pattern. No focal mass. Right testis volume: 13.9 ml Epididymis: Abnormal increased echogenicity at the junction of the right epididymal head and right epididymal body at site of echogenic finding on prior sonography, current measured size of 0.7 x 0.4 x 0.5 cm images 3584 and 4352, increased measured size compared to prior sonography. Multiple tiny mobile echoes on cine imaging images 3840 and 4608. Other: Borderline venous dilatation measuring 2 mm. No hydrocele. Left testicle: Normal size,echotexture, and blood flow pattern. No focal mass. Left testis volume: 12.9 ml Epididymis: Normal. No mass or hyperemia. Other: Borderline venous dilatation measuring 3 mm. No hydrocele. Persistent increased echogenicity at the junction of the right epididymal head and right epididymal body, increased measured size compared to prior sonography. Multiple tiny mobile echoes on cine imaging of uncertain etiology, adjacent vasculature but echogenic finding appears to be confined to the epididymis. [-- Note: I did review these image(s) personally. --] Assessment Encounter Diagnoses Name Primary? Screening Examination Prostate Cancer ??? Mass Epididymis Yes Plan: I reviewed with the patient his bilateral paratesticular mass. I would like him to return to clinic in 6 months for serial exam. In the meanwhile, I asked him to perform at least monthly scrotal self exams, and report any changes to the testicles, epididymis, sperm plumbing, or groin to me or another urologist immediately. He agrees. His prostate cancer screening is up-to-date. Total visit time of 15 minutes, with greater than 50% of this time spent on [id number] counseling and coordination of cares. Reyes Ballard M.D., Ph.D. 09/08/2019 Department of Urology in [place], [place] documented in this encounter Plan of Treatment Upcoming Encounters Date Type Specialty Care Team Description 02/15/2022 Office Visit Orthopedic Surgery Madyson Rosa, D.O. [address] [place] [phone] (Wo rk) Scheduled Referrals Name Type Priority Associated Diagnoses Order S [facility] Urology office Outpatient Referral Routine Expect ed: visit (clinic) 03/09/2020 (Approximate), Expires: 09/07/2022 documented as of this encounter Visit Diagnoses Diagnosis Mass Epididymis - Primary Screening Examination Prostate Cancer documented in this encounter Additional Health Concerns Assessment Noted Time PHQ-9 Depression Total Score: 2 09/17/2018 9:08 AM CDT documented as of this encounter Care Teams Regulator Mechanic Relationship Specialty Start Date End Date Norma Kenny, WIRE ROPE FABRICATION SUPERVISOR, C.N.P. PCP - General 09/12/[address] [place] [address] documented as of this encounter
--- OUTSIDE RECORDS SUMMARY | 2022-01-25 11:38 | XMS_ITS | Encounter Summary ---
:1965 Author Organization [facility] Address [address] [place] [address] Care Team Providers Name Role Phone Norma Kenny APRN, C.N.P. Primary Care Provider [phone] Reason for Visit Reason Comments Med Refill Encounter Details Date Type Department Care Team Description 07/21/2020 Refill Department of Family Medicine Caden Kenny APRN, Med Refill in [facility] so C.N.P. 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 - 07/21/2020 12:53 PM CDT Name of Medication(s) Needing Refill: LISINOPRIL-HCTZ 20/25MG TABLETS Additional Information: last refill: 04/25/2020 Last Appointment: 01/18/2020 Future Appointment: No future appointments Routing to [facility] due to PCP being out on maternity. documented in this encounter Plan of Treatment Upcoming Encounters Date Type Specialty Care Team Description 02/15/2022 Office Visit Orthopedic Surgery Madyson Rosa il, D.O. [address] [place], [place] [phone] (Wo rk) documented as of this encounter Visit Diagnoses Diagnosis Hypertension Essential Primary documented in this encounter Additional Health Concerns Assessment Noted Time PHQ-9 Depression Total Score: 2 09/17/2018 9:08 AM CDT documented as of this encounter Care Teams County Program Technician Relationship Specialty Start Date End Date Norma Kenny APRN, C.N.P. PCP - General 09/12/[address] [place] [address] documented as of this encounter
--- OUTSIDE RECORDS SUMMARY | 2022-01-25 11:38 | XMS_ITS | Encounter Summary ---
:1965 Author Organization [facility] Address [address] [place] [address] Care Team Providers Name Role Phone Norma Kenny APRN, C.N.P. Primary Care Provider [phone] Reason for Visit Reason Comments Communication Rash almost gone Encounter Details Date Type Department Care Team Description 01/12/2020 Clinical Communication Department of Rony Kenny ([facility] in [place], almost go ne) Erik Booth APRN, C.N.P. 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 - 01/14/2020 9:56 AM CDT LVM for Twin indicating he can f/u with Urology (Dr. Ballard) if he has concerns about his kidneys. He can keep his appt as scheduled with Norma next week as well. Callback any questions. Telephone Encounter - Norma Kenny APRN, C.N.P. - 01/13/2020 9:34 AM CDT Patient should follow up with Dr. Ballard if he continues to have concerns about his kidney. His visitwith Dr. Ballard in August was in regards to testicular mass, not flank pain. His last abdominal CT showed stranding of perirenal fat bilaterally consistent with history of renal medical disease. I do not think he ever followed up in regards to this during [facility]. I am still happy to see him next week as well if needed. Thanks, TK Telephone Encounter - Lavinia Mike R.N. - 01/12/2020 12:39 PM CDT Patient returned call - he used the triamcinolone cream for 2 weeks and the rash is 95% gone. He didsome research on the internet and it listed an unexplained rash could be a sign of kidney disease. He reports having the rash for about 6 weeks now. He is very concerned about this. Reviewed his chart,no hx of kidney issues, hx HTN, last labs done 05/21/19. The pain in his right side has been worsening the past 3-4 weeks. He had urinalysis/culture done 05/24/19 which was negative. His renal function was great with GFR >90. He saw Urology 09/08/19. He denies any urinary changes or concerns at this time. Patient scheduled to see Norma 01/17 for follow up. He will use the triamcinolone he has left for a couple more days. Informed pt I will send message to Norma to review/advise as needed. Telephone Encounter - Lavinia Mike R.N. - 01/12/2020 12:22 PM CDT LVM - informed patient I would send his msg to Norma to review but she is not in clinic this week. Last OV 12/28/19: #3 Dermatitis This appears as a dermatitis of some sort, unknown cause. I recommend we first try a medium/high potency steroid to the area twice daily for 10-14 days to see if symptoms improve/resolve. Patient will call/follow up of no change or worsening of symptoms. Medication discussed. All questions answered. Telephone Encounter - Christie Pickett - 01/12/2020 8:22 AM CDT Please do not reply to sender,emails are not monitored. Thank you. If you need a prescription refill please call your pharmacy. Please allow 3 business days for processing. Expert RN: N/A (Med Refill Only) Call Center Template: ??? May we leave a message for you on this phone? yes What can I help you with today? Pt says he was put on rub on steroid to rub on his rash. He was only supposed to use it for so many days. Pt did the course of steroid but still has a little rash left and asking to be called to discuss if he should be using something else. Pt is leaving town tomorrow so would like this resolved as fast as he can Please contact. ??? If Medication Refill: o What is the name and strength of the medication? o What do you use the medication for? o How many pills do you have left? o What pharmacy do you use (include location)? [facility] in [employer]RIC[employer] SUPER[employer] documented in this encounter Plan of Treatment Upcoming Encounters Date Type Specialty Care Team Description 02/15/2022 Office Visit Orthopedic Surgery Madyson Rosa, D.ONikhil [address] [place], [place] [address] (Wo rk) documented as of this encounter Visit Diagnoses Not on filedocumented in this encounter Additional Health Concerns Assessment Noted Time PHQ-9 Depression Total Score: 2 09/17/2018 9:08 AM CDT documented as of this encounter Care Teams Food Technician Relationship Specialty Start Date End Date Norma Kenny APRN, C.N.P. PCP - General 09/12/[address] [place] [address] documented as of this encounter
--- OUTSIDE RECORDS SUMMARY | 2022-01-25 11:38 | XMS_ITS | Encounter Summary ---
:1965 Author Organization [facility] Address [address] [place] [address] Care Team Providers Name Role Phone Norma Kenny APRN, C.N.P. Primary Care Provider [phone] Reason for Visit Reason Comments Med Refill Encounter Details Date Type Department Care Team Description 01/25/2020 Refill Department of Family Medicine Caden Kenny APRN, Med Refill in [facility] so C.N.P. 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 - 01/27/2020 4:07 PM CDT Name of Medication(s) Needing Refill: LISINOPRIL-HCTZ 20/25MG TABLETS Additional Information: Last refill: 10/02/2019 Last Appointment: 01/18/2020 Future Appointment: No future appointments documented in this encounter Plan of Treatment Upcoming Encounters Date Type Specialty Care Team Description 02/15/2022 Office Visit Orthopedic Surgery Madyson Rosa il, D.ONikhil [address] [place], [place] [phone] (Wo rk) documented as of this encounter Visit Diagnoses Diagnosis Hypertension Essential Primary documented in this encounter Additional Health Concerns Assessment Noted Time PHQ-9 Depression Total Score: 2 09/17/2018 9:08 AM CDT documented as of this encounter Care Teams Retail Stocker Relationship Specialty Start Date End Date Norma Kenny, ENVIRONMENTAL ADVISER, C.N.P. PCP - General 09/12/[address] [place] [address] documented as of this encounter
--- OUTSIDE RECORDS SUMMARY | 2022-01-25 11:38 | XMS_ITS | Encounter Summary ---
:1965 Author Organization [facility] Address [address] [place] [address] Care Team Providers Name Role Phone Norma Kenny APRN, C.N.P. 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 - 11/22/2019 10:31 AM CDT Patient called back and was transferred to pr - he has poison oak rash on both forearms. It has beenpresent for about 1.5 weeks now. He had tried some hydrocortisone, calamine lotion, and more recently has been treating it with Zanfel. This seems to be helping a little now but he was wondering what else he should do. I reviewed at home treatment options (Oatmeal baths, Cool compresses (applied to the affected areas for 15 to 30 minutes several times daily), Calamine lotion, Topical cortisone cream or ointment, Oral antihistamines (eg, Benadryl) at bedtime. He will continue with at home treatment and if no improvement in the next few days (reminded that rash can take 2-4 weeks to improve) he will seek evaluation. Telephone Encounter - Lavinia Mike R.N. - 11/22/2019 9:27 AM CDT LVM - he should be seen in clinic or urgent care for evaluation/treatment. Telephone Encounter - Iris Villarreal - 11/22/2019 8:54 AM CDT Saad Called because he got Poison Linda this weekends and the over the counter stuff hasn't really worked and he would like to now what else he can do. documented in this encounter Plan of Treatment Upcoming Encounters Date Type Specialty Care Team Description 02/15/2022 Office Visit Orthopedic Surgery Madyson Rosa D.ONikhil [address] [facility] [place] [address] (Wo rk) documented as of this encounter Visit Diagnoses Not on filedocumented in this encounter Additional Health Concerns Assessment Noted Time PHQ-9 Depression Total Score: 2 09/17/2018 9:08 AM CDT documented as of this encounter Care Teams Merchandise Shopper Relationship Specialty Start Date End Date Norma Kenny APRN, C.N.P. PCP - General 09/12/[address] [facility] [place] [phone] documented as of this encounter
--- OUTSIDE RECORDS SUMMARY | 2022-01-25 11:38 | XMS_ITS | Encounter Summary ---
:1965 Author Organization [facility] Address [address] [place] [address] Care Team Providers Name Role Phone Norma Kenny APRN, C.N.P. Primary Care Provider [phone] Encounter Details Date Type Department Care Team Description 06/30/2019 Hospital Encounter Department of Radiology Elian Whitlock ra, Pain Scrotum in [facility] dudley STEVEN, C.N.P., [address] [facility] D[facility] 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 famotidine (PEPCID) 10 mg Take 10 mg by 0 01/25/2021 tablet mouth 2 (two) times a day as needed for heartburn. lisinopril-hydroCHLOROthiaz Take 1 tablet by 90 tablet 3 10/22/2019 madeline (PRINZIDE,ZESTORETIC) mouth daily. 20-25 mg per tabletIndications: Hypertension Essential Primary metoprolol succinate TAKE 1 TABLET(25 90 tablet 0 0 09/28/2019 (TOPROL-XL) 25 mg 24 hr MG) BY MOUTH DAILY tabletIndications: FOR BLOOD PRESSURE Palpitations pantoprazole (PROTONIX) 40 Take 1 tablet (40 90 tablet 3 04/03/2021 mg EC tabletIndications: mg total) by mouth Gastroesophageal Reflux as needed for Disease heartburn. documented as 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 [address] [place] [phone] (Wo rk) documented as of this encounter Procedures Procedure Name Priority Date/Time Associated Comments Diagnosis US SCROTUM RAD - Routine 06/30/2019 9:33 Pain Scrotum Results for this (most inpatients AM CDT procedure a re in and all the results outpatients) section. documented in this encounter Results US Scrotum (06/30/2019 9:33 AM CDT) Anatomical Region Laterality Modality Testes, Ultrasound RST LOS, Ultrasound ARZ LOS, Ultrasound F LA N/A Ultrasound LOS Specimen (Source) Anatomical Collection Method Collection Time Re ceived Time Location / / Volume Laterality 06/30/2019 9:51 AM CDT Impressions 06/30/2019 9:59 AM CDT Persistent increased echogenicity at the junction of the right epididymal head and right epididymal bod y, increased measured size compared to prior sonography. Multiple tiny mobile e choes on cine imaging of uncertain etiology, adjacent vasculature but echog enic finding appears to be confined to the epididymis. Narrative 06/30/2019 9:59 AM CDT EXAM: US SCROTUM COMPARISON: 02/23/2019. FINDINGS: Right testicle: Normal size, echotexture , and blood flow pattern. No focal mass. Right testis volume: 13.9 ml Epididymis: Abnormal increased echogenic ity at the junction of the right epididymal head and right epididymal bod y at site of echogenic finding on prior sonography, current measured size of 0.7 x 0.4 x 0.5 cm images 3584 and 4352, increased measured size compared to prio r sonography. Multiple tiny mobile echoes on cine imaging images 3840 and 4 608. Other: Borderline venous dilatation carline uring 2 mm. No hydrocele. Left testicle: Normal size, echotexture, and blood flow pattern. No focal mass. Left testis volume: 12.9 ml Epididymis: Normal. No mass or hyperemia . Other: Borderline venous dilatation carline uring 3 mm. No hydrocele. Procedure Note José Miguel Nunez M.D. - 06/30/2019For matting of this note might be different from the original. EXAM: US SCROTUM COMPARISON: 02/23/2019. FINDINGS: Right testicle: Normal size, echotexture , and blood flow pattern. No focal mass. Right testis volume: 13.9 ml Epididymis: Abnormal increased echogenic ity at the junction of the right epididymal head and right epididymal bod y at site of echogenic finding on prior sonography, current measured size of 0.7 x 0.4 x 0.5 cm images 3584 and 4352, increased measured size compared to prio r sonography. Multiple tiny mobile echoes on cine imaging images 3840 and 4 608. Other: Borderline venous dilatation carline uring 2 mm. No hydrocele. Left testicle: Normal size, echotexture, and blood flow pattern. No focal mass. Left testis volume: 12.9 ml Epididymis: Normal. No mass or hyperemia . Other: Borderline venous dilatation carline uring 3 mm. No hydrocele. IMPRESSION: Persistent increased echogenicity at the junction of the right epididymal head and right epididymal bod y, increased measured size compared to prior sonography. Multiple tiny mobile e choes on cine imaging of uncertain etiology, adjacent vasculature but echog enic finding appears to be confined to the epididymis. No Whitlock APRN C.N.PNikhil, Jarad.N.P. IMG US PROCEDURES documented in this encounter Visit Diagnoses Diagnosis Pain Scrotum documented in this encounter Additional Health Concerns Assessment Noted Time PHQ-9 Depression Total Score: 2 09/17/2018 9:08 AM CDT documented as of this encounter Care Teams Brand Leader Relationship Specialty Start Date End Date Norma Kenny APRN, C.N.P. PCP - General 09/12/[address] [place] [address] documented as of this encounter
--- OUTSIDE RECORDS SUMMARY | 2022-01-25 11:38 | XMS_ITS | Encounter Summary ---
:1965 Author Organization [facility] Address [address] [place] [address] Care Team Providers Name Role Phone Norma Kenny APRN CNikhilNNikhilPNikhil Primary Care Provider [phone] Encounter Details Date Type Department Care Team Description 08/24/2019 Clinical Communication Department of Urology Cole Ballard, in [place], John roque M.D., Ph.D. 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 Also mailed a letter with the same information for the patient to present in clinic. Telephone Encounter - Reyes Ballard M.D., Ph.D. - 08/24/2019 8:25 PM CDT Pt needs prompt urology followup for his RIGHT scrotal mass and kidney findings. RTC in next 2 - 4 weeks, any provider, to review same. Please document your efforts and the patient's reply carefully. Thank you. -- Reyes Ballard M.D., Ph.D. Telephone Encounter - Reyes Ballard M.D., Ph.D. - 08/24/2019 8:25 PM CDT ----- Message from Reyes Ballard M.D., Ph.D. sent at 07/05/2019 3:30 PM CDT ----- Pt will be seen in Urology Clinic in early 07/2019. Thanks! -Vinay documented in this encounter Plan of Treatment Upcoming Encounters Date Type Specialty Care Team Description 02/15/2022 Office Visit Orthopedic Surgery Madyson Rosa D.ONikhil [address] [place] [phone] (Wo rk) documented as of this encounter Visit Diagnoses Not on filedocumented in this encounter Additional Health Concerns Assessment Noted Time PHQ-9 Depression Total Score: 2 09/17/2018 9:08 AM CDT documented as of this encounter Care Teams Flight Mechanic Relationship Specialty Start Date End Date Norma Kenny APRN, C.N.P. PCP - General 09/12/[address] [place] [address] documented as of this encounter
--- OUTSIDE RECORDS SUMMARY | 2022-01-25 11:38 | XMS_ITS | Encounter Summary ---
:1965 Author Organization [facility] Address [address] [place] [address] Care Team Providers Name Role Phone Norma Kenny APRN, C.N.P. Primary Care Provider [phone] Encounter Details Date Type Department Care Team Description 08/16/2020 [facility] Only [facility], Monitoring For ANTHROPOLOGY PROFESSOR, C.N.P. Therapeutic Drug [address] [place] [address] Social History Tobacco Use Types [...] or relatives? How often do you attend rastafarian or oriental orthodox More than 4 time s per year 09/17/2018 services? 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 [address] [place], [place] [phone] (Wo rk) documented as of this encounter Visit Diagnoses Diagnosis Monitoring For Therapeutic Drug Therapy documented in this encounter Additional Health Concerns Assessment Noted Time PHQ-9 Depression Total Score: 2 09/17/2018 9:08 AM CDT documented as of this encounter Care Teams Architect Relationship Specialty Start Date End Date Norma Kenny, STEVEN, C.N.P. PCP - General 09/12/[address] [place] [phone] documented as of this encounter
--- OUTSIDE RECORDS SUMMARY | 2022-01-25 11:38 | XMS_ITS | Encounter Summary ---
:1965 Author Organization [facility] Address [address] [place] [address] Care Team Providers Name Role Phone Norma Kenny APRN C.N.P. Primary Care Provider [phone] Reason for Visit Reason Comments Rash mostly on forearms Hypertension bp check Encounter Details Date Type Department Care Team Description 12/28/2019 Office Visit Department of Family Norma Kenny Pa in Shoulder Left (Primary Dx); Medicine in [facility] STVEEN C.N.P. Pain Rib; [place], [place] [address] Dermatitis [address] [place] [address] [phone] Social History Tobacco Use Types Packs/Day Years [...] or relatives? How often do you attend episcopal or anabaptism More than 4 time s per year 09/17/2018 services? 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 - 12/28/2019 11:30 AM CDT SUBJECTIVE CHIEF COMPLAINT/REASON FOR VISIT Rash (mostly on forearms) and Hypertension (bp check) HISTORY OF PRESENT ILLNESS Saad Murray is a 54 y.o. male who presents for a few concerns. 1. His main concern today is a rash on his bilateral forearms for about the past 4-5 weeks. At firsthe thought this was poison tootie/poison oak so he tried his usual treatments but states it has not really improved. He has taken Benadryl, tried benadryl cream, hydrocortisone cream, calamine lotion, andZanfel cream. None of these have provided much relief. He does not have the rash anywhere else. It is dry and itchy. He does note that it seemed to start in late October when he started picking sweet corn, but otherwise no changes. 2. He continues to have right sided rib pain. He has had a normal Abdominal US, normal Abdominal CT (other than some renal fat stranding for which he is following with urology), and a negative rib Xray. This pain started last year after he fell off of a ladder. It has continued, It comes and goes, is worse some days. It wraps around his right side. 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 3. He would like a referral back to Dr. Cordova for another cortisone injection in his left shoulder which they discussed last year. PROBLEM LIST: Patient Active Problem List Diagnosis ??? Hypertension Essential Primary ??? Body Mass Index 40.0 To 44.9 Adult (HCC) ??? Hypercholesterolemia ??? Gastroesophageal Reflux Disease ??? Palpitations ??? Pain Shoulder Left ??? Pain Hip Right ??? Screening Cancer Colon CURRENT MEDICATIONS Current Outpatient Medications on File Prior to Visit Medication Sig Dispense Refill ??? atorvastatin (LIPITOR) 20 mg tablet TAKE 1 TABLET(20 MG) BY MOUTH AT BEDTIME 90 tablet 1 ??? famotidine (PEPCID) 10 mg tablet Take 10 mg by mouth 2 (two) times a day as needed for heartburn. ??? lisinopril-hydroCHLOROthiazide (PRINZIDE,ZESTORETIC) 20-25 mg per tablet Take 1 tablet by mouth daily. 90 tablet 0 ??? metoprolol succinate (TOPROL-XL) 25 mg 24 hr tablet TAKE 1 TABLET(25 MG) BY MOUTH DAILY FOR BLOOD PRESSURE 90 tablet 3 ??? pantoprazole (PROTONIX) 40 mg EC tablet Take 1 tablet (40 mg total) by mouth as needed for heartburn. 90 tablet 3 No current facility-administered medications on file prior to visit. ALLERGIES/CONTRAINDICATIONS No Known Allergies OBJECTIVE VITAL SIGNS BP 129/73 Pulse 87 Temp (!) 35.1 ??C Resp 20 Ht 185.4 cm Wt (!) 139 kg SpO2 98% BMI 40.52 kg/m?? PHYSICAL EXAMINATION General: Patient is alert, oriented and appears to be in no distress. Abdomen: Soft and nontender throughout. No organomegaly. No CVA tenderness. He has exquisite tenderness in area of right rib, and moves/twists somewhat slowly. Skin: He has a red, dry, papular rash noted on bilateral upper extremities, ventral/flexor surface area. No vesicles, pustules. No rashes elsewhere. Neurologic: No neurologic deficit noted. ASSESSMENT / PLAN #1 Pain Shoulder Left Referral placed. He has been following with ortho for this. - Orthopedic Surgery - Shoulder non surgical consult (clinic); Future; Expected date: 12/28/2019 (After tests) #2 Pain Rib His pain certainly seems like it could be musculoskeletal based on physical exam and lack of internal findings on US/CT. I recommend heat/ice, rest (which will be difficult for him), and an evaluation with physical therapy. He is taking ibuprofen daily which helps dull symptoms. - PT Evaluate and treat; Future; Expected date: 12/28/2019 #3 Dermatitis This appears as a dermatitis of some sort, unknown cause. I recommend we first try a medium/high potency steroid to the area twice daily for 10-14 days to see if symptoms improve/resolve. Patient will call/follow up of no change or worsening of symptoms. Medication discussed. All questions answered. - triamcinolone (KENALOG) 0.5 % cream; Apply 1 application topically 2 (two) times a day., Starting Fri12/28/2019, Normal documented in this encounter Plan of Treatment Upcoming Encounters Date Type Specialty Care Team Description 02/15/2022 Office Visit Orthopedic Surgery Madyson Rosa il, D.O. [address] [place], [place] [phone] (Wo rk) documented as of this encounter Visit Diagnoses Diagnosis Pain Shoulder Left - Primary Pain Rib Dermatitis documented in this encounter Additional Health Concerns Assessment Noted Time PHQ-9 Depression Total Score: 2 09/17/2018 9:08 AM CDT documented as of this encounter Care Teams Entry Level Electrical Engineer Relationship Specialty Start Date End Date Norma Kenny APRN, C.N.P. PCP - General 09/12/[address] [place] [address] documented as of this encounter
--- OUTSIDE RECORDS SUMMARY | 2022-01-25 11:38 | XMS_ITS | Encounter Summary ---
:1965 Author Organization [facility] Address [address] [place] [address] Care Team Providers Name Role Phone Norma Kenny APRN, C.N.P. Primary Care Provider [phone] Reason for Visit Reason Comments Follow-up bilateral paratesticular mas s Outpatient (Routine) - Closed Specialty Diagnoses / Procedures Referred By Contact Refer red To Contact Urology Reyes Ballard M. D., Ph.D. [facility] [address] [place] [address] Referral ID Status Reason Start Date Expiration Date Visits Requ ested Visits Authorized [id number] Closed 09/08/2019 09/07/2020 1 1 Encounter Details Date Type Department Care Team Description 02/02/2020 Office Visit Department of Urology Reyes Ballard M ass Epididymis (Primary Dx); in Erik Booth M.D., Ph.D. 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 - 02/02/2020 8:45 AM PERSONAL SECURITY SPECIALIST Keep doing monthly testicular self-exams to keep an eye out for any groin, scrotum, or testicular changes. Let Dr. Ballard or another doctor know immediately if you notice any changes in your groin, scrotum, or testicles. We must be vigilant for any testicular cancer. Please contact and followup with your primary care physician regarding your groin and back pains. ONAL SECURITY SPECIALIST documented in this encounter Progress Notes Reyes Ballard M.D., Ph.D. - 02/02/2020 8:45 AM CST Date of Service: 02/02/2020 S: Saad Murray is a 54 y.o. male seen in clinic today for his: - Epididymal mass: Patient is status post vasectomy about 15 years ago. prior exam: Small palpable right epididymal mass, slightly tender to palpation. There is a left paratesticular small mass which Isuspect is epididymal in origin - Prostate Cancer Screening: No family history of prostate cancer. 09/08/2019 ?? -- Prostate is normal to palpation without nodules or masses and is nontender. Today, he reports: No acute events. Patient had CT scan done May 2019 and he would like me to look at this at of concerns for some kidney changes. He denies any flank pains, hematuria or dysuria or new bone pains. O: Vital signs reviewed per EMR flowsheet Pleasant and engaging. No apparent distress. Stable small palpable right epididymal mass, less tender today. There is a small left paratesticularmass, likely epididymal mass. Rectal exam deferred. There is no costovertebral angle tenderness on palpation. Lab Results Component Value Date CREATININE 0.71 (L) 05/21/2019 CREATININE 0.79 09/10/2018 CREATININE 0.82 07/11/2017 , Lab Results Component Value Date PSA 0.62 09/17/2018 Lab Results Component Value Date URINESOURCE Midstream 05/25/2019 CLARITYU Clear 05/25/2019 COLORU Yellow 05/25/2019 NITRITEU Negative 05/25/2019 LEUKOCYTESU Negative 05/25/2019 PROTEINQUALU Negative 05/25/2019 GLUCOSEU Negative 05/25/2019 KETONESU Trace (A) 05/25/2019 BILIRUBINU Negative 05/25/2019 PHURINE 7.0 05/25/2019 SPECGRAV 1.020 05/25/2019 UROBILINOGEN 2.0 (A) 05/25/2019 RBCU Negative 05/25/2019 CT scan from May 21, 2019 is reviewed by me and with the patient. There appears to be some verymild perinephric stranding bilaterally and exaggerated robert nephric fat. I do not see any renal masses, kidney stones, or hydronephrosis. Assessment: Encounter Diagnoses Name Primary? Screening Examination Prostate Cancer ??? Mass Epididymis Yes ??? Pain Groin Plan: I reviewed with the patient's multiple urologic issues as above. 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 I recommended at least monthly testicular self exams. He can consider PSA testingat any time, I suggested at least by 57 years old. We reviewed his kidney changes from the CT and I think we can follow this expectantly for now. Continue working with his primary care physician regarding his groin and back pain. For now, the patient would like to see me as needed. I encouraged him to contact me at any time I can be of service to him, or if he has any questions or concerns. Total visit time of 25 minutes, with greater than 50% of this time spent on [id number] counseling and coordination of cares. Reyes Ballard M.D., Ph.D. 02/02/2020 Department of Urology in [place], [place] ONAL SECURITY SPECIALIST documented in this encounter Plan of Treatment Upcoming Encounters Date Type Specialty Care Team Description 02/15/2022 Office Visit Orthopedic Surgery RavingashelleyarMadyson, D.O. [address] [place], [place] [phone] (Wo rk) documented as of this encounter Visit Diagnoses Diagnosis Mass Epididymis - Primary Screening Examination Prostate Cancer Pain Groin documented in this encounter Additional Health Concerns Assessment Noted Time PHQ-9 Depression Total Score: 2 09/17/2018 9:08 AM CDT documented as of this encounter Care Teams Gas Pumping Station Operator Relationship Specialty Start Date End Date Norma Kenny, STEVEN, C.N.P. PCP - General 09/12/[address] [place] [address] documented as of this encounter
--- OUTSIDE RECORDS SUMMARY | 2022-01-25 11:38 | XMS_ITS | Encounter Summary ---
:1965 Author Organization [facility] Address [address] [place] [address] Care Team Providers Name Role Phone Norma Kenny APRN, C.N.P. Primary Care Provider [phone] Reason for Referral Outpatient (Routine) - Closed Specialty Diagnoses / Procedures Referred By Contact Refer red To Contact Family Medicine Norma Kenny APRN, [facility] C.N.P. [address] [place] [address] Referral ID Status Reason Start Date Expiration Date Visits Requ ested Visits Authorized [id number] Closed 08/18/2019 08/17/2020 1 1 Reason for Visit Reason Comments Med Refill Encounter Details Date Type Department Care Team Description 08/18/2019 Refill Department of Family Medicine Caden Kenny APRN, Med Refill in [facility] C.N.P. 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 - 08/18/2019 1:57 PM CDT Medication Name: atorvastatin Last Refill: 05/19/2019 Last OV: 06/23/2019 virtual Future Appt: none Last BP: (152/73) 05/19/2019 Last Set of Labs: 05/25/2019 Last PHQ-9: (2) 09/17/18 Last MELODY-7: () NA Due for a blood pressure check. documented in this encounter Plan of Treatment Upcoming Encounters Date Type Specialty Care Team Description 02/15/2022 Office Visit Orthopedic Surgery Madyson Rosa D.ONikhil [address] [place] [phone] (Wo rk) Scheduled Referrals Name Type Priority Associated Diagnoses Order S [facility] Family Medicine Outpatient Referral Routine Expec tim: nurse visit 08/18/2019 (clinic) (Approximate), Expires: 08/17/2022 documented as of this encounter Visit Diagnoses Diagnosis Hyperlipidemia documented in this encounter Additional Health Concerns Assessment Noted Time PHQ-9 Depression Total Score: 2 09/17/2018 9:08 AM CDT documented as of this encounter Care Teams Margarine Maker Relationship Specialty Start Date End Date Norma Kenny APRN, C.N.P. PCP - General 09/12/[address] [place] [phone] documented as of this encounter
--- OUTSIDE RECORDS SUMMARY | 2022-01-25 11:38 | XMS_ITS | Encounter Summary ---
:1965 Author Organization [facility] Address [address] [place] [address] Care Team Providers Name Role Phone Norma Kenny APRN, C.NNikhilPNikhil Primary Care Provider [phone] Encounter Details Date Type Department Care Team Description 06/30/2020 Orders Only [facility] PCP [facility] Kg Rausch Jr., M.D. [address] [place] [address] [place] [phone] (Wo rk) Social History Tobacco Use Types [...] or relatives? How often do you attend holiness or roman catholic More than 4 time s per year 09/17/2018 services? 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 [address] [place], [place] [phone] (Wo rk) documented as of this encounter Visit Diagnoses Not on filedocumented in this encounter Additional Health Concerns Assessment Noted Time PHQ-9 Depression Total Score: 2 09/17/2018 9:08 AM CDT documented as of this encounter Care Teams Armhole Feller Handstitching Machine Relationship Specialty Start Date End Date Norma Kenny APRN, C.N.P. PCP - General 09/12/[address] [place] [address] documented as of this encounter
--- OUTSIDE RECORDS SUMMARY | 2022-01-25 11:38 | XMS_ITS | Encounter Summary ---
:1965 Author Organization [facility] Address [address] [place] [address] Care Team Providers Name Role Phone Norma Kenny APRN, C.N.P. Primary Care Provider [phone] Reason for Visit Reason Comments Med Refill Encounter Details Date Type Department Care Team Description 04/25/2020 Refill Department of Family Medicine Caden Kenny APRN, Med Refill in [facility] so C.N.P. 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 - 04/25/2020 8:29 AM CST Name of medication: Lisinopril-HCTZ 20-25mg Last Refilled: 01/28/2020 Additional Information: Last labs 05/21/2019 Last/Next Appointment: Coming due for annual will proxy SORTER AND DELIVERY documented in this encounter Plan of Treatment Upcoming Encounters Date Type Specialty Care Team Description 02/15/2022 Office Visit Orthopedic Surgery Madyson Rosa, D.ONikhil [address] [place], [place] [phone] (Wo rk) documented as of this encounter Visit Diagnoses Diagnosis Hypertension Essential Primary documented in this encounter Additional Health Concerns Assessment Noted Time PHQ-9 Depression Total Score: 2 09/17/2018 9:08 AM CDT documented as of this encounter Care Teams Cooper Apprentice Relationship Specialty Start Date End Date Norma Kenny APRN, C.N.P. PCP - General 09/12/[address] [place] [address] documented as of this encounter
--- OUTSIDE RECORDS SUMMARY | 2022-01-25 11:38 | XMS_ITS | Encounter Summary ---
:1965 Author Organization [facility] Address [address] [place] [address] Care Team Providers Name Role Phone Norma Kenny APRN, C.N.P. Primary Care Provider [phone] Encounter Details Date Type Department Care Team Description 06/23/2019 Virtual Visit Department of Family Norma Kenny Pain Flank (Primary Medicine in Erik Salas APRN, C.N.P. 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 - 06/23/2019 10:30 AM CDT SUBJECTIVE CHIEF COMPLAINT/REASON FOR VISIT No chief complaint on file. This visit was completed via telephone due to the restrictions of the Covid-19 pandemic. All issues as below were discussed and addressed but no physical exam was performed. If it was felt that the patient should be evaluated in clinic and they were directed there. The patient verbally consented to visit. HISTORY OF PRESENT ILLNESS Saad Murray is a 53 y.o. male who we are following up with by phone in regards to his rightsided pain and groin pain. He was due to see urology today for follow up but declined that [id number] visit as his groin pain is improved. He states he still has pain on his right side, starting in the flank area and around under his right ribs, but it is not severe or worsened. He has no other symptoms. 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 He had some imaging of scrotum that showed a questionable cyst, as well as an abdominal CT which showed some perirenal fat stranding. No other concerns today. PROBLEM LIST: Patient Active Problem List Diagnosis ??? Hypertension Essential Primary ??? Body Mass Index 40.0 To 44.9 Adult (HCC) ??? Hypercholesterolemia ??? Gastroesophageal Reflux Disease ??? Palpitations ??? Pain Shoulder Left ??? Pain Hip Right ??? Screening Cancer Colon CURRENT MEDICATIONS Current Outpatient Medications on File Prior to Visit Medication Sig Dispense Refill ??? atorvastatin (LIPITOR) 20 mg tablet Take 1 tablet (20 mg total) by mouth at bedtime. 90 tablet 0 ??? famotidine (PEPCID) 10 mg tablet Take 10 mg by mouth 2 (two) times a day as needed for heartburn. ??? lisinopril-hydroCHLOROthiazide (PRINZIDE,ZESTORETIC) 20-25 mg per tablet Take 1 tablet by mouth daily. 90 tablet 3 ??? metoprolol succinate (TOPROL-XL) 25 mg 24 hr tablet TAKE 1 TABLET(25 MG) BY MOUTH DAILY FOR BLOOD PRESSURE 90 tablet 0 ??? pantoprazole (PROTONIX) 40 mg EC tablet Take 1 tablet (40 mg total) by mouth as needed for heartburn. 90 tablet 3 No current facility-administered medications on file prior to visit. ALLERGIES/CONTRAINDICATIONS No Known Allergies OBJECTIVE VITAL SIGNS There were no vitals taken for this visit. ASSESSMENT / PLAN #1 Pain Flank Patient's symptoms sound improved but not resolved. I advised that he was going to be seen for follow up with urology today to recheck scrotum, and on his imaging to determine plan of care. I also messaged Urology team. Patient did not understand why he was supposed to be seen by urology today which is why he declined visit and called here instead. Urology will contact him directed by phone to determine next steps in plan of care. He is otherwise stable, somewhat improved, and agrees with this plan. All questions answered. Spent 10 minutes with patient on phone discussing health concerns. documented in this encounter Plan of Treatment Upcoming Encounters Date Type Specialty Care Team Description 02/15/2022 Office Visit Orthopedic Surgery RavinalMadyson haq, D.O. [address] [place], [place] [phone] (Wo rk) documented as of this encounter Visit Diagnoses Diagnosis Pain Flank - Primary documented in this encounter Additional Health Concerns Assessment Noted Time PHQ-9 Depression Total Score: 2 09/17/2018 9:08 AM CDT documented as of this encounter Care Teams Spinning Bath Patroller Relationship Specialty Start Date End Date Norma Kenny APRN, C.N.P. PCP - General 09/12/[address] [place] [address] documented as of this encounter
--- OUTSIDE RECORDS SUMMARY | 2022-01-25 11:38 | XMS_ITS | Encounter Summary ---
:1965 Author Organization [facility] Address [address] [place] [address] Care Team Providers Name Role Phone Norma Kenny APRN, C.NNikhilPNikhil Primary Care Provider [phone] Reason for Visit Reason Comments Return Visit Encounter Details Date Type Department Care Team Description 06/18/2019 Clinical Communication Department of Reyes Ballard, Return Visit Urology in [facility] Paula, Ph.D. 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 - 07/12/2019 10:40 AM CDT Spoke to pt and gave him Dr. Ballard's message in regards to the ultrasound result. Pt does have an appointment scheduled to follow up with Dr. Ballard on 08/04/19 and has agreed to follow up as scheduled. Pt has no further questions or concerns at this time based off of Dr. Ballard's recommendation. Telephone Encounter - Reyes Ballard M.D., Ph.D. - 07/12/2019 9:44 AM CDT Please let patient know his ultrasound showed that bump outside of his testicle has gotten slightly bigger, but not concerningly so. CT scan in 05/2019 did not show stones or kidney masses -- great news! He should RTC in 07/2019 as scheduled. Thanks! -KS Telephone Encounter - Elba Hawkins, C.M.A. - 07/06/2019 11:44 AM CDT Pt was deferred until 08/04/19. He had an US on 06/30/19 and was suppose to come back in tomorrow 07/06 for a visit with Dr. Ballard. Since this has been pushed out, pt would like to know if someone could callhim regarding his US results. Telephone Encounter - Elba Retana - 06/25/2019 9:58 AM CDT Patient has been called and scheduled for 06/29 and 07/06 with . Telephone Encounter - Norma Kenny APRN, C.N.P. - 06/23/2019 11:31 AM CDT FYI - Spoke with patient this morning. There was some confusion about what he was returning to see Urology for it sounds like. I spoke with him about follow up symptoms. His groin pain is improved, hisright sided flank and side pain is still there, but not worsened. I advised that someone from Urology will be calling him (ideally a provider) for a phone visit to discuss his symptoms and recommendations for follow up (imaging versus visit versus watchful waiting, etc) in the next couple days. Thanks, TK Telephone Encounter - Reyes Ballard M.D., Ph.D. - 06/23/2019 9:52 AM CDT We recommend a formal urology visit, [id number] in the next 8 weeks to review this information. I feel like the patient would be best served with a formal in- person appt. Please let the patient know and assist with scheduling. Thank you. -- Reyes Ballard M.D., Ph.D. Telephone Encounter - Maribel Watts R.N. - 06/22/2019 3:29 PM CDT Returning pt's call. Spoke to pt and he states his groin pain is better and he is not wanting to come in tomorrow so that appointment has been cancelled with Dr. Ballard. He has a phone visit follow up scheduled with Norma Kenny on 06/23/19 instead. Pt has no further questions or concerns at this time. Telephone Encounter - Elba Hawkins C.MGilson - 06/22/2019 9:27 AM CDT It looks like pt recently had US done so another is not needed and Dr. Ballard has gone through his schedule to see who is needed to come in and it looks like he wants a face to face with [facility]. I did leave VM for pt to call me on triage line to discuss his questions further Telephone Encounter - Elba Retana - 06/18/2019 4:14 PM CDT Patient needs a call from nursing staff to go over questions that weren't answer. He doesn't know why he needs another US and he also was wondering if he could just do a phone call with results if US is needed. documented in this encounter Plan of Treatment Upcoming Encounters Date Type Specialty Care Team Description 02/15/2022 Office Visit Orthopedic Surgery Madyson Rosa, D.ONikhil [address] [place], [place] [phone] (Wo rk) documented as of this encounter Visit Diagnoses Not on filedocumented in this encounter Additional Health Concerns Assessment Noted Time PHQ-9 Depression Total Score: 2 09/17/2018 9:08 AM CDT documented as of this encounter Care Teams Forming Process Line Worker Relationship Specialty Start Date End Date Norma Kenny APRN, C.N.P. PCP - General 09/12/[address] [place] [phone] documented as of this encounter
--- OUTSIDE RECORDS SUMMARY | 2022-01-25 11:38 | XMS_ITS | Encounter Summary ---
:1965 Author Organization [facility] Address [address] [place] [address] Care Team Providers Name Role Phone Norma Kenny APRN, C.NNikhilPNikhil Primary Care Provider [phone] Reason for Visit Reason Comments COVID Nurse Line Encounter Details Date Type Department Care Team Description 08/04/2019 Clinical Communication Central Appointment Line, Covid COVHERMILO Nurse Line Office in [facility] [address] [place], [place] [phone] Social History Tobacco Use Types Packs/Day Years [...] How often do you attend orthodox or hindu More than 4 time s per year [...] at Date Recorded Male 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 - 08/04/2019 7:39 AM CDT COVID-19 Nurse Line Screening ASSESSMENT COVID 19 Screening Have you had close contact with a person who has a LABORATORY CONFIRMED case of COVID-19?: No - Continue screening. In the last 48 hours have you had any of the following symptoms?: New cough(runny nose) PLAN Endpoint recommendation: screened positive for testing, patient declines as he believes symptoms aredue to working outside. He was advised to self-isolate at home until symptoms resolve. He was also transferred to [facility] to reschedule his appointment that is scheduled for today. Care Points provided: STANDARD PRECAUTIONS FOR ALL PATIENTS: Wash hands often with soap and water for at least 20 seconds, especially after blowing your nose, coughing, sneezing, or having been in a public place. If soap and water aren't available, use a hand risk control product liability director that contains at least 60% alcohol. Avoid close contact with anyone who may be exhibiting respiratory symptoms such as coughing and sneezing. Avoid touching your eyes, nose and mouth. Clean and disinfect frequently touched surfaces daily. Cover your mouth and nose with a cloth face cover when around others or in public. The cloth face cover is not a substitute for social distancing. Continue to keep about 6 feet between yourself andothers. Stay home as much as possible (only going out for essential items or medical care). Educational Resource: https://www.cdc.gov/coronavirus/2019-ncov/lcjxfme-opbmgox-suau/index.html Education: patient/caregiver Patient/caregiver able to teach back Patient agreeable to plan of care: Yes The following references were used: [facility] novel coronavirus (COVID- 19) resources Nursing judgement documented in this encounter Plan of Treatment Upcoming Encounters Date Type Specialty Care Team Description 02/15/2022 Office Visit Orthopedic Surgery Madyson Rosa D.O. [address] [place], [place] [phone] (Wo rk) documented as of this encounter Visit Diagnoses Not on filedocumented in this encounter Additional Health Concerns Assessment Noted Time PHQ-9 Depression Total Score: 2 09/17/2018 9:08 AM CDT documented as of this encounter Care Teams Buffet Runner Relationship Specialty Start Date End Date Norma Kenny APRN, C.N.P. PCP - General 09/12/[address] [place] [address] documented as of this encounter
--- OUTSIDE RECORDS SUMMARY | 2022-01-25 11:38 | XMS_ITS | Encounter Summary ---
:1965 Author Organization [facility] Address [address] [place] [address] Care Team Providers Name Role Phone Norma Kenny APRN, C.N.P. Primary Care Provider [phone] Reason for Visit Reason Comments Med Refill Encounter Details Date Type Department Care Team Description 10/22/2019 Refill Department of Family Medicine Caden Kenny APRN, Med Refill in [facility] so C.N.P. [address] [place] [address] [place] [address] (Wo rk) Social History Tobacco Use Types [...] or relatives? How often do you attend lutheran or mandaen More than 4 time s per year 09/17/2018 services? 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 - 10/22/2019 10:35 AM CDT Medication Name: lisinopril-hydroCHLOROthiazide Last Refill: 07/24/2019 Last OV: 06/23/2019 Future Appt: none with family med Last Set of Labs: 05/25/2019, 05/21/2019 documented in this encounter Plan of Treatment Upcoming Encounters Date Type Specialty Care Team Description 02/15/2022 Office Visit Orthopedic Surgery Madyson Rosa il, D.ONikhil [address] [place], [place] [phone] (Wo rk) documented as of this encounter Visit Diagnoses Diagnosis Hypertension Essential Primary documented in this encounter Additional Health Concerns Assessment Noted Time PHQ-9 Depression Total Score: 2 09/17/2018 9:08 AM CDT documented as of this encounter Care Teams Coach Operator Relationship Specialty Start Date End Date Norma Kenny, STEVEN, C.N.P. PCP - General 09/12/[address] [place] [address] documented as of this encounter
--- OUTSIDE RECORDS SUMMARY | 2022-01-25 11:38 | XMS_ITS | Encounter Summary ---
:1965 Author Organization [facility] Address [address] [place] [address] Care Team Providers Name Role Phone Norma Kenny APRN C.N.P. Primary Care Provider [phone] Encounter Details Date Type Department Care Team Description 01/07/2020 Clinical Communication Department of Chase Philippe, Medicine in [facility] ST[place], [place], [place] [address] [place] [phone] Social History Tobacco Use Types Packs/Day Years [...] or relatives? How often do you attend moravian or anglican More than 4 time s per year 09/17/2018 services? 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 - 01/10/2020 8:37 AM CDT Patient informed Rx was sent. He states that the rash in improving just not completely gone yet. Telephone Encounter - Karina Randle R.M.A. - 01/07/2020 2:34 PM CDT Left message to call back Telephone Encounter - Norma Kenny APRN, C.N.P. - 01/07/2020 2:31 PM CDT Sounds good - I will refill. Is rash improving? TK Telephone Encounter - July Eason - 01/07/2020 12:47 PM CDT Patient would like a call at [phone]. He has one application left of the medicated cream Norma Kardoes prescribed for him for his arm rash, and he wants to get a refill as soon as possible. He said the cream can only be used for two weeks, and that two weeks is up next Friday, so he would like to get the refill today so he can continue to use it as he still has some of the rash left. Thank you. documented in this encounter Plan of Treatment Upcoming Encounters Date Type Specialty Care Team Description 02/15/2022 Office Visit Orthopedic Surgery Madyson Rosa, D.ONikhil [address] [place], [place] [phone] (Wo rk) documented as of this encounter Visit Diagnoses Not on filedocumented in this encounter Additional Health Concerns Assessment Noted Time PHQ-9 Depression Total Score: 2 09/17/2018 9:08 AM CDT documented as of this encounter Care Teams Walnut Dehydrator Operator Relationship Specialty Start Date End Date Norma Kenny APRN, C.N.P. PCP - General 09/12/[address] [place] [phone] documented as of this encounter
--- OUTSIDE RECORDS SUMMARY | 2022-01-25 11:38 | XMS_ITS | Encounter Summary ---
:1965 Author Organization [facility] Address [address] [place] [address] Care Team Providers Name Role Phone Norma Kenny APRN C.N.P. Primary Care Provider [phone] Reason for Visit Reason Comments Follow-up rash Encounter Details Date Type Department Care Team Description 01/18/2020 Office Visit Department of Family Norma Kenny Cancer Colon (Primary Dx); Medicine in [facility] STEVEN Salas, C.N.P. 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 - 01/18/2020 9:30 AM CDT 1. Use OTC cortisone cream on affected forearms sparingly every other day x 1 week. Then use every 3rd day x 2 weeks. 2. Move up follow up visit with Urology to review renal fat stranding review 2. Schedule with physical therapy. documented in this encounter Progress Notes Marlene Riley R.N. - 01/18/2020 9:30 AM CDT SUBJECTIVE CHIEF COMPLAINT/REASON FOR VISIT Chief Complaint Patient presents with ??? Follow-up rash HISTORY OF PRESENT ILLNESS Saad Murray is a 54 y.o. male who presents to the clinic today for follow up of bilateral forearm dermatitis, and continued right sided flank and rib pain. CURRENT MEDICATIONS Current Outpatient Medications Medication Sig Dispense Refill ??? atorvastatin (LIPITOR) [...] as needed for heartburn. 90 tablet 3 ??? triamcinolone (KENALOG) 0.5 % cream Apply 1 application topically 2 (two) times a day. (Patient not taking: Reported on 01/18/2020 ) 60 g 0 No current facility-administered medications for this visit. ALLERGIES/CONTRAINDICATIONS No Known Allergies REVIEW OF SYSTEMS As stated above. Otherwise, complete review of systems was performed and was negative. MEDICAL HISTORY Past Medical History: Diagnosis Date ??? Gastroesophageal Reflux Disease ??? Hypercholesterolemia ??? Hypertension NOS SURGICAL HISTORY Past Surgical History: Procedure Laterality Date ??? REPAIR OF UMBILICAL HERNIA N/A 04/12/2016 Repair of umbilical hernia ??? VASECTOMY N/A 03/05/2005 Vasectomy OBJECTIVE VITAL SIGNS BP 137/77 Pulse 87 Temp 36.7 ??C Resp 20 Ht 185.4 cm Wt (!) 139 kg SpO2 99% BMI 40.34 kg/m?? PHYSICAL EXAMINATION General: Alert male in no acute distress, nontoxic in appearance, well dressed, normal hygiene. HEENT: Head normocephalic, atraumatic, pupils equal round react to light, EOM intact. Neck: Supple. No lymphadenopathy. Cardiovascular: Regular rate, rhythm, S1, S2. No murmur. No edema. Respiratory: Lungs clear to auscultation in the anterior and posterior chest, easy Respirations. Nonlabored breathing. Abdomen: Soft, nondistended. BS x 4 quadrants. No CVA tenderness. Mild right sided rib and flank pain on deep palpation. No hepato-splenomegaly. No masses appreciated. Neurologic: Alert, oriented, steady gait. Extremities: Warm, pink, dry. Small bilateral papular lesions, which has mostly resolved. DIAGNOSTICS: No results found. ASSESSMENT / PLAN #1 Screening Cancer Colon #2 Morbid Obesity Body Mass Index 40.0-44.9 Adult (HCC) #3 Need Vaccine Immunization Influenza #4 Health Maintenance - Colonoscopy Case Request: COLONOSCOPY - influenza vaccine quad (FLUZONE/FLUVARIX) (6 months and older) (PF) Will schedule the colonoscopy for late February or early March as patient will need a ride. He will need a preop visit 1 month prior. #2 Dermatitis #3 Pain Flank -- follow-up Urology -- Physical Therapy --OTC cortisone cream Move up Urology appointment to January to address the stranding of perirenal fat bilaterally which would be consistent with history of renal medical disease. Hoping this will find answers or correlation to his right sided flank pain. In addition we will have him see physical therapy for consultation and therapy for pain. Dermatitis in bilateral forearms grossly resolved. Patient instructed to taper his cortisone cream to use every other day x1 week, then every 3rd day x1 week. Then discontinue use. Patient agrees with plan, verbalizes understanding of plan, is receptive to plan. Patient was provided verbal and written education. Patient has no further questions or concerns. Patient will follow upas needed or at the next scheduled return visit. Patient will call the clinic if there are any further questions or concerns in the meantime. Thank you for letting me be involved in your care. ?? Norma Kearney APRN, C.N.P. - 01/18/2020 9:30 AM CDT SUBJECTIVE CHIEF COMPLAINT/REASON FOR VISIT Follow-up (rash) HISTORY OF PRESENT ILLNESS Saad Murray is a 54 y.o. male who presents for follow up of his bilateral forearm dermatitis, as well as his persistent right sided rib pain. His dermatitis is almost resolved with 2 weeks treatment of his steroid cream. His right sided pain continues. He continues to be tender along his right rib cage, has had all negative imaging up to this point, other than noted renal fat stranding, which may or may not be related to his pain. No other new symptoms. PROBLEM LIST: Patient Active Problem List Diagnosis [...] a day as needed for heartburn. ??? metoprolol succinate (TOPROL-XL) 25 mg 24 hr tablet TAKE 1 TABLET(25 MG) BY MOUTH DAILY FOR BLOOD PRESSURE 90 tablet 3 ??? pantoprazole (PROTONIX) 40 mg EC tablet Take 1 tablet (40 mg total) by mouth as needed for heartburn. 90 tablet 3 ??? triamcinolone (KENALOG) 0.5 % cream Apply 1 application topically 2 (two) times a day. (Patient not taking: Reported on 02/02/2020 ) 60 g 0 No current facility-administered medications on file prior to visit. ALLERGIES/CONTRAINDICATIONS No Known Allergies OBJECTIVE VITAL SIGNS BP 137/77 Pulse 87 Temp 36.7 ??C Resp 20 Ht 185.4 cm Wt (!) 139 kg SpO2 99% BMI 40.34 kg/m?? PHYSICAL EXAMINATION General: Patient is alert, oriented and appears to be in no distress. HENT: Grossly normal. Neck is supple and without mass or adenopathy. Cardiovascular: Heart is regular rate and rhythm. There are no murmurs, gallops or rubs. Respiratory: Breathing is nonlabored. Lungs are clear to auscultation bilaterally. Extremities: There is no lower extremity edema. Abdomen: Soft and nondistended. No organomegaly. Mild right sided rib tenderness to palpation. Skin: No new rashes or lesion noted. Forearm dermatitis is mostly resolved. Neurologic: No neurologic deficit noted. ASSESSMENT / PLAN #1 Screening Cancer Colon Patient is overdue for colonoscopy screening. He states he will schedule this for later this winter. - Colonoscopy Case Request: COLONOSCOPY #2 Dermatitis Improved. Finish 2 week course and can taper to OTC hydrocortisone thereafter if needed. #3 Pain Flank He has a urology appointment set for February but still has not discussed his side pain and CT findings with his urologist. I would like him to move this appointment up to discuss if this is related orconcerning. 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 #4 Morbid Obesity Body Mass Index 40.0-44.9 Adult (HCC) Encourage healthy lifestyle habits. Lab work is up to date. #5 Need Vaccine Immunization Influenza - influenza vaccine quad (FLUZONE/FLUVARIX) (6 months and older) (PF) WRITER RIBBON WINDER documented in this encounter Plan of Treatment Upcoming Encounters Date Type Specialty Care Team Description 02/15/2022 Office Visit Orthopedic Surgery RavinwyMadyson haq il, D.ONikhil [address] [place], [place] [phone] (Wo rk) documented as of this encounter Visit Diagnoses Diagnosis Screening Cancer Colon - Primary Dermatitis Pain Flank Morbid Obesity Body Mass Index 40.0-44.9 Adult (HCC) Need Vaccine Immunization Influenza documented in this encounter Additional Health Concerns Assessment Noted Time PHQ-9 Depression Total Score: 2 09/17/2018 9:08 AM CDT documented as of this encounter Care Teams Security Monitor Relationship Specialty Start Date End Date Norma Kenny APRN, C.N.P. PCP - General 09/12/[address] [place] [address] documented as of this encounter
--- OUTSIDE RECORDS SUMMARY | 2022-01-25 11:38 | XMS_ITS | Encounter Summary ---
:1965 Author Organization [facility] Address [address] [place] [address] Care Team Providers Name Role Phone Norma Kenyn APRN, C.N.P. Primary Care Provider [phone] Reason for Visit Reason Comments Med Refill Encounter Details Date Type Department Care Team Description 05/18/2020 Refill Department of Family Medicine Caden Kenny APRN, Med Refill in [facility] so C.N.P. [address] [place] [address] [place] [phone] (Wo rk) Social History Tobacco Use Types [...] or relatives? How often do you attend restorationism or restorationism More than 4 time s per year 09/17/2018 services? 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 - 05/18/2020 1:01 PM HEAD RIGGER Addended by: ROSI POP on: 05/18/2020 01:01 PM Modules accepted: Orders RIGGER Telephone Encounter - Norma Kenny APRN C.N.PNikhil - 05/18/2020 11:52 AM HEAD RIGGER Due for labs/visit? Thanks, TK RIGGER Telephone Encounter - Rosi Pop R.N. - 05/18/2020 11:47 AM CST Last office visit 01/18/2020 Norma Kenny Last lipid panel 05/21/2019 RIGGER documented in this encounter Plan of Treatment Upcoming Encounters Date Type Specialty Care Team Description 02/15/2022 Office Visit Orthopedic Surgery Madyson Rosa il, D.O. [address] [place], [place] [phone] (Wo rk) documented as of this encounter Visit Diagnoses Diagnosis Hyperlipidemia documented in this encounter Additional Health Concerns Assessment Noted Time PHQ-9 Depression Total Score: 2 09/17/2018 9:08 AM CDT documented as of this encounter Care Teams Manual Writer Relationship Specialty Start Date End Date Norma Kenny APRN, C.N.P. PCP - General 09/12/[address] [place] [address] documented as of this encounter
--- OUTSIDE RECORDS SUMMARY | 2022-01-25 11:38 | XMS_ITS | Encounter Summary ---
:1965 Author Organization [facility] Address [address] [place] [address] Care Team Providers Name Role Phone Norma Kenny APRN, C.N.P. Primary Care Provider Reason for Visit Reason Comments Med Refill Encounter Details Date Type Department Care Team Description 09/23/2020 Refill Department of Family Medicine Caden Kenny APRN, Med Refill in [facility] [place] so C.N.P. [address] [place] [address] [place] [phone] (Wo rk) Social History Tobacco Use Types [...] or relatives? How often do you attend protestant or alevism More than 4 time s per year 09/17/2018 services? 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 - 09/26/2020 8:46 AM CDT Left message for patient that medication was approved for refill Telephone Encounter - Francesco Morejon L.P.N. - 09/25/2020 9:32 AM CDT Medication Name: meteprolol 25 mg po every day Last Refill: 09/30/2019 90 tabs and 3 refills by Uma Mcguire Last Office Visit:01/18/2020 with sylvester Due for Office Visit:no Future Office Visit:none Last Blood Pressure: (137/77) Last Set of Labs:05/19/2019 Pharmacy: [facility] [employer] [facility] documented in this encounter Plan of Treatment Upcoming Encounters Date Type Specialty Care Team Description 02/15/2022 Office Visit Orthopedic Surgery Madyson Rosa, D.ONikhil [address] [place], [place] [phone] (Wo rk) documented as of this encounter Visit Diagnoses Diagnosis Palpitations documented in this encounter Additional Health Concerns Assessment Noted Time PHQ-9 Depression Total Score: 2 09/17/2018 9:08 AM CDT documented as of this encounter Care Teams Sales And Service Change Leader Relationship Specialty Start Date End Date Norma Kenny APRN, C.N.P. PCP - General 09/12/[address] [place] [phone] documented as of this encounter
--- OUTSIDE RECORDS SUMMARY | 2022-01-25 11:39 | XMS_ITS | Encounter Summary ---
:1965 Author Organization [facility] Address [address] [place] [address] Care Team Providers Name Role Phone Norma Kenny APRN, C.N.P. Primary Care Provider [phone] Reason for Visit Reason Onset Date Comments Communication 03/05/2019 Referral to Urology Encounter Details Date Type Department Care Team Description 03/05/2019 Clinical Communication Department of Rony Kenny Family Medicine in Norma Salas, (Referral to Urology) Erik Booth APRN, C.N.P. [place] [address] [place], [place] Erik Booth, [phone] [place] [phone] Social History Tobacco Use Types Packs/Day Years [...] How often do you attend sikhism or scientologist More than 4 time s [...] at Date Recorded Male 03/25/2018 1:01 PM SEXUAL ABUSE COUNSELLOR documented as of this encounter Miscellaneous Notes Telephone Encounter - Jeannette Bernardo L.P.N. - 04/02/2019 11:37 AM SEXUAL ABUSE COUNSELLOR Pt is not responding to phone messages sent for status update or assistance with Urology plan movingforward. AL ABUSE COUNSELLOR Telephone Encounter - Jeannette Bernardo L.P.N. - 03/30/2019 8:51 AM SEXUAL ABUSE COUNSELLOR LMTCB AL ABUSE COUNSELLOR Telephone Encounter - Norma Kenny APRN, C.N.P. - 03/29/2019 4:46 PM SEXUAL ABUSE COUNSELLOR Maybe try him one more time this week to see how he is doing. Thanks, TK AL ABUSE COUNSELLOR Telephone Encounter - Jeannette Bernardo L.PNikhilN. - 03/25/2019 8:38 AM SEXUAL ABUSE COUNSELLOR Do I need to continue to continue to follow up as pt did not respond after message left. AL ABUSE COUNSELLOR Telephone Encounter - Jeannette Bernardo L.P.N. - 03/11/2019 4:02 PM SEXUAL ABUSE COUNSELLOR LMTCB AL ABUSE COUNSELLOR Telephone Encounter - Norma Kenny APRN C.N.P. - 03/10/2019 8:19 AM SEXUAL ABUSE COUNSELLOR Great, thanks! Let's follow up with him after this appointment today to determine next steps. ThanksTK AL ABUSE COUNSELLOR Telephone Encounter - Jeannette Bernardo L.P.N. - 03/09/2019 8:30 AM SEXUAL ABUSE COUNSELLOR Thank you Cara for following up. AL ABUSE COUNSELLOR Telephone Encounter - Karina Randle R.M.A. - 03/08/2019 11:35 AM SEXUAL ABUSE COUNSELLOR Following up on the is appointment with Urology. Kenna is not in clinic until Friday. I did speak with Carmela regarding this. She spoke with Elba to see if patient is able to be seen. Patient is scheduled here in [place] with No Whitlock NP on Sunday March 10, 2019. Arrival of 215 pm. Patient is aware of this appointment. Patient did state [place] did call him last week to try and get him in there. He was offered today(declined due to the weather) and next Friday. Patient prefers to be seen in [place]. AL ABUSE COUNSELLOR Telephone Encounter - Karina Randle R.MGilson - 03/05/2019 4:59 PM SEXUAL ABUSE COUNSELLOR Attempted to call Urology in [place] this morning at 815. I had to leave a message for them to call back. Wondering if we are able to get this patient in sooner in [place] as patient is currently set up in [facility] on 04/21/19. Per notes from Norma Kenny and Jeannette Notes recorded by Norma Kenny APRN, C.N.P. on 03/04/2019 at 10:13 AM SEXUAL ABUSE COUNSELLOR Ok so it is the groin pain only that is giving him trouble, not right upper rib/abdominal pain, correct? ??Let me know if you hear from urology. ??Thanks, TK ------ Notes recorded by Jeannette Bernardo L.P.N. on 03/03/2019 at 11:23 AM SEXUAL ABUSE COUNSELLOR Pt states nothing has improved, continued discomfort with the groin increased pain more with working. He did state he is now willing to go to [place] if that date is improved. I left a message on urology [facility] Successful Teensil requesting an earlier appointment if possible. I left my extension for messages. Today around 1100 am I did reach out to Kenna Calloway in [place] [facility], who is Dr Ballard's nurse here to see if she could help me set something up as I had yet to hear from [place]. She was going to look into it and get back to me. She reached out to me at 215 pm stating we can potentially get that patient set upon 03/10 at 230. I tried to message her back at 230 and she was offline. I am not sure if they will be calling the patient or if we need to. I didn't want to call the patient until I knew we had an actual appointment. AL ABUSE COUNSELLOR documented in this encounter Plan of Treatment Upcoming Encounters Date Type Specialty Care Team Description 02/15/2022 Office Visit Orthopedic Surgery Madyson Rosa, D.ONikhil [address] [place], [place] [phone] (Wo rk) documented as of this encounter Visit Diagnoses Not on filedocumented in this encounter Additional Health Concerns Assessment Noted Time PHQ-9 Depression Total Score: 2 09/17/2018 9:08 AM CDT documented as of this encounter Care Teams Painter Hand Relationship Specialty Start Date End Date Norma Kenny APRN, C.N.P. PCP - General 09/12/[address] [place] [phone] documented as of this encounter
--- OUTSIDE RECORDS SUMMARY | 2022-01-25 11:39 | XMS_ITS | Encounter Summary ---
:1965 Author Organization [facility] Address [address] [place] [address] Care Team Providers Name Role Phone Norma Kenny APRN, C.N.P. Primary Care Provider [phone] Encounter Details Date Type Department Care Team Description 02/23/2019 Hospital Encounter Department of Radiology Louie Beal, Mass Scrotum in [employer] cristina HARRIS, C.N.P., R.N. 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 famotidine (PEPCID) 10 mg Take 10 mg by 0 01/25/2021 tablet mouth 2 (two) times a day as needed for heartburn. lisinopril-hydroCHLOROthiazi Take 1 tablet by 90 tablet 3 0 09/17/2018 10/22/2019 de (PRINZIDE,ZESTORETIC) mouth daily. 20-25 mg per tabletIndications: Hypertension Essential Primary metoprolol succinate Take 1 tablet (25 90 tablet 0 12/18/19 19 03/29/2019 (TOPROL-XL) 25 mg 24 hr mg total) by tabletIndications: mouth daily. For Palpitations blood pressure. pantoprazole (PROTONIX) 40 Take 1 tablet (40 90 tablet 3 04/03/2021 mg EC tabletIndications: mg total) by Gastroesophageal Reflux mouth as needed Disease for heartburn. documented as 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 [address] [place] [address] [phone] (Wo rk) documented as of this encounter Procedures Procedure Name Priority Date/Time Associated Comments Diagnosis US SCROTUM RAD - Routine 02/23/2019 10:22 Mass Scrotum Results fo r this (most inpatients AM BRASS PICKLER procedure a re in and all the results outpatients) section. documented in this encounter Results US Scrotum (02/23/2019 10:22 AM BRASS PICKLER) Anatomical Region Laterality Modality Testes, Ultrasound RST LOS, Ultrasound ARZ LOS, Ultrasound F LA N/A Ultrasound LOS Specimen (Source) Anatomical Collection Method Collection Time Re ceived Time Location / / Volume Laterality 02/23/2019 12:22 PM BRASS PICKLER Impressions 02/23/2019 12:29 PM BRASS PICKLER Palpable finding on exam corresponds to a tiny echogenic focus within the right epididymal body. Favor benign etiology, and consider small adenomatoid tumor or lipoma. Recommend u rology consultation and sonographic follow-up in the absence of surgical res ection. Narrative 02/23/2019 12:29 PM BRASS PICKLER EXAM: US SCROTUM COMPARISON: None. FINDINGS: Right testicle: Normal size, echotexture , and blood flow pattern. No focal mass. Right testis volume: 14.7 ml Epididymis: Normal size. Tiny echogenic focus within the right epididymal body at site of palpable finding on exam, magda suring 3 x 2 x 3 mm as measured on images 12,032 and 12,800. No posterior a coustic shadowing. Consider small adenomatoid tumor or lipoma. Other: Borderline right varicocele. No h ydrocele. Left testicle: Normal size, echotexture, and blood flow pattern. No focal mass. Left testis volume: 8.9 ml Epididymis: Tiny left epididymal head cy st measuring 3 mm image 10,240. Other: Small varicocele. No hydrocele. Procedure Note José Miguel Nunez M.D. - 02/23/2019For matting of this note might be different from the original. EXAM: US SCROTUM COMPARISON: None. FINDINGS: Right testicle: Normal size, echotexture , and blood flow pattern. No focal mass. Right testis volume: 14.7 ml Epididymis: Normal size. Tiny echogenic focus within the right epididymal body at site of palpable finding on exam, magda suring 3 x 2 x 3 mm as measured on images 12,032 and 12,800. No posterior a coustic shadowing. Consider small adenomatoid tumor or lipoma. Other: Borderline right varicocele. No h ydrocele. Left testicle: Normal size, echotexture, and blood flow pattern. No focal mass. Left testis volume: 8.9 ml Epididymis: Tiny left epididymal head cy st measuring 3 mm image 10,240. Other: Small varicocele. No hydrocele. IMPRESSION: Palpable finding on exam corresponds to a tiny echogenic focus within the right epididymal body. Favor benign etiology, and consider small adenomatoid tumor or lipoma. Recommend u rology consultation and sonographic follow-up in the absence of surgical res ection. Ame Beal APRN C.N.PNikhil, RNikhilNNikhil IMG US PROCEDURES documented in this encounter Visit Diagnoses Diagnosis Mass Scrotum documented in this encounter Additional Health Concerns Assessment Noted Time PHQ-9 Depression Total Score: 2 09/17/2018 9:08 AM CDT documented as of this encounter Care Teams Bracelet Maker Novelty Relationship Specialty Start Date End Date Norma Kenny APRN, C.N.P. PCP - General 09/12/[address] [place] [phone] documented as of this encounter
--- OUTSIDE RECORDS SUMMARY | 2022-01-25 11:39 | XMS_ITS | Encounter Summary ---
:1965 Author Organization [facility] Address [address] [place] [address] Care Team Providers Name Role Phone Norma Kenny APRN CNikhilNNikhilPNikhil Primary Care Provider [phone] Encounter Details Date Type Department Care Team Description 05/03/2019 Clinical Communication Department of Urology Cole Ballard, in [place], John roque M.D., Ph.D. 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 Sent out a reminder schedule for him because he did not have anything with him to write it down on/ ERCIAL BANKER Telephone Encounter - Maribel Watts R.N. - 05/03/2019 3:21 PM CST Per No Whitlock's note: PLAN -UA/UC today - will call with the results -Follow up in 3 months with a repeat scrotal ultrasound prior -Continue prostate cancer screening with his PCP ??The patient verbalized understanding and agreement with this plan. They may contact the clinic with any questions or concerns. ?? Signed by: ?? No Whitlock APRN, C.N.P., D.N.P. 03/14/2019 10:39 PM ?? ERCIAL BANKER Telephone Encounter - Elba Retana - 05/03/2019 2:42 PM CST I called patient to set up a US and a doctors appointment with , patient stated that I didn't think this was needed and were just keeping an eye on it. Are these appointments for US and an appointment with for May 2019 still needed? If needed, please clarify with patient and we can schedule an appointment with him. Thank you, Elba ERCIAL BANKER documented in this encounter Plan of Treatment Upcoming Encounters Date Type Specialty Care Team Description 02/15/2022 Office Visit Orthopedic Surgery Madyson Rosa, D.O. [address] [place] [address] [phone] (Wo rk) documented as of this encounter Visit Diagnoses Not on filedocumented in this encounter Additional Health Concerns Assessment Noted Time PHQ-9 Depression Total Score: 2 09/17/2018 9:08 AM CDT documented as of this encounter Care Teams Ore Dressing Engineer Relationship Specialty Start Date End Date Norma Kenny APRN, C.N.P. PCP - General 09/12/[address] [place] [address] documented as of this encounter
--- OUTSIDE RECORDS SUMMARY | 2022-01-25 11:39 | XMS_ITS | Encounter Summary ---
:1965 Author Organization [facility] Address [address] [place] [address] Care Team Providers Name Role Phone Norma Kenny APRN C.N.P. Primary Care Provider [phone] Reason for Visit Reason Onset Date Comments Communication 09/25/2018 Encounter Details Date Type Department Care Team Description 09/25/2018 Clinical Communication Department of Chase Philippe Communication Medicine in [facility] STEVEN Salas C.N.PNikhil [place], [place] [address] [place] [phone] Social History Tobacco Use Types Packs/Day Years [...] or relatives? How often do you attend rastafari or buddhist More than 4 time s per year 09/17/2018 services? Do you belong to any clubs or organizations No 09/17/2018 such as rastafari groups, unions, fraternal or athletic groups, or [...] at Date Recorded Male 03/25/2018 1:01 PM RADIO RECORDER documented as of this encounter Miscellaneous Notes Telephone Encounter - Ame Beal APRN CNikhilN.Kem - 10/13/2018 6:53 AM CDT Sounds good. I did place the order for them to call him next week to set it up, so he doesn't have to wait. He can always cancel if it goes away. Marycarmen, HAO Telephone Encounter - Moira Butler C.M.A. - 10/12/2018 1:33 PM CDT Patient states he's still having the side pain. He tried MiraLAX for 1 week and states he didn't notice a whole lot of difference. He states there were some days on the MiraLAX that he didn't have a bowel movement. He states he would like to try another week of MiraLAX before going on to the ultrasound. Advised patient to use MiraLAX daily x 1 week unless he has diarrhea. Will contact patient on Friday to see how he is feeling. Advised patient to keep a diary of symptoms and bowel movements over thenext week. Telephone Encounter - Moira Butler C.M.A. - 10/05/2018 9:34 AM CDT MATHIEU Telephone Encounter - Moira Butler C.M.A. - 09/30/2018 9:05 AM CDT LMTCB Telephone Encounter - Ame Beal APRN, C.NGregg - 09/29/2018 7:40 AM CDT Please call to inquire about the abd pain. Would he like US ordered? HAO Conroy Telephone Encounter - Moira Butler C.M.A. - 09/25/2018 2:07 PM CDT Patient notified and verbalized understanding. He states she has been taking Tylenol and Ibuprofen twice daily, he will try taking it at bedtime over the weekend and see how that goes. He is leaving for vacation next weekend and may want to schedule ultrasound before then if he feels the ibuprofen isn't helping. Telephone Encounter - Ame Beal APRN CNikhilN.Kem - 09/25/2018 12:53 PM CDT He could try taking ibuprofen at bedtime for a week to see if that helps reduce the pain and see if it is musculoskeletal. The other option would be to evaluate his gallbladder. Pain is not typical gallbladder course as it does not occur after eating. However, gallbladder disease does cause right upper quadrant discomfort. I could order an ultrasound. Let me know his thoughts. HAO Conroy Telephone Encounter - Moira Butler C.M.A. - 09/25/2018 9:44 AM CDT Patient notified of lab results and recommendations for Shingrix. Patient states he has been using MiraLAX daily and still has the pain in his side and it hasn't changed his bowel movements. He's looking for any further recommendations. Telephone Encounter - Leanne Solis - 09/25/2018 9:11 AM CDT Twin returned Moira's call, not really sure if it is regarding an appt or what. Can call him back anytime today. Thank you. documented in this encounter Plan of Treatment Upcoming Encounters Date Type Specialty Care Team Description 02/15/2022 Office Visit Orthopedic Surgery RavintnMadyson haq, D.ONikhil [address] [place] [phone] (Wo rk) documented as of this encounter Results US Gallbladder (11/04/2018 8:41 AM CDT) Anatomical Region Laterality Modality Abdomen, Ultrasound RST LOS, Ultrasound ARZ LOS, Ultrasound FLA N/A Ultrasound LOS Specimen (Source) Anatomical Collection Method Collection Time Re ceived Time Location / / Volume Laterality 11/04/2018 9:07 AM CDT Impressions 11/04/2018 9:08 AM CDT Negative, no cholelithiasis or cholecystitis. Narrative 11/04/2018 9:08 AM CDT EXAM: US GALLBLADDER COMPARISON: None. FINDINGS: Gallbladder: Normal. No gallstones. No w all thickening or pericholecystic fluid. Negative sonographic Jensen sign. Intrahepatic ducts: Not dilated. Common duct: Not dilated. CBD 3.0 mm. Aorta: Normal caliber. Procedure Note Srinivas Victoria Jr., M.D. - 2018 EXAM: US GALLBLADDER COMPARISON: None. FINDINGS: Gallbladder: Normal. No gallstones. No w all thickening or pericholecystic fluid. Negative sonographic Jensen sign. Intrahepatic ducts: Not dilated. Common duct: Not dilated. CBD 3.0 mm. Aorta: Normal caliber. IMPRESSION: Negative, no cholelithiasis or cholecyst itis. Ame Beal APRN, C.N.P., R.N. IMG US PROCEDURES documented in this encounter Visit Diagnoses Diagnosis Pain Right Upper Quadrant - Primary Pain Right Upper Quadrant documented in this encounter Additional Health Concerns Assessment Noted Time PHQ-9 Depression Total Score: 2 09/17/2018 9:08 AM CDT documented as of this encounter Care Teams Plant Production Worker Relationship Specialty Start Date End Date Norma Kenny APRN, C.N.P. PCP - General 09/12/[address] [facility] [place] [address] documented as of this encounter
--- OUTSIDE RECORDS SUMMARY | 2022-01-25 11:39 | XMS_ITS | Encounter Summary ---
:1965 Author Organization [facility] Address [address] [place] [address] Care Team Providers Name Role Phone Norma Kenny APRN, C.N.P. Primary Care Provider [phone] Encounter Details Date Type Department Care Team Description 05/26/2019 Orders Only Department of Urology in [facility] No Bonner [place], [place] C.N.P., D.N.P. [address] [facility] [address] [place] [address] [place] [phone] (Wo rk) Social History Tobacco Use Types [...] or relatives? How often do you attend buddhist or gnosticism More than 4 time s per year 09/17/2018 services? 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 PCP - General 09/12/[address] [place] [phone] documented as of this encounter
--- OUTSIDE RECORDS SUMMARY | 2022-01-25 11:39 | XMS_ITS | Encounter Summary ---
:1965 Author Organization [facility] Address [address] [place] [address] Care Team Providers Name Role Phone Norma Kenny APRN, C.N.P. Primary Care Provider [phone] Encounter Details Date Type Department Care Team Description 05/21/2019 Hospital Encounter Department of Ame Beal Hyperli pidemia; Laboratory Medicine STEVEN Abraham, Pain Rig ht Upper Quadrant in [place], C.N.P., R.N. [place] [address] [facility], [address] [facility] [address] [place] [address] [phone] Social History Tobacco Use Types Packs/Day Years [...] or relatives? How often do you attend bahai or denominational More than 4 time s per year 09/17/2018 services? 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 documented as of this encounter Miscellaneous Notes Result Encounter Note - Norma Kenny APRN, C.N.P. - 05/24/2019 1:59 PM WEB UI DESIGNER Also, please let Twin know his labs all look good. No medication changes. Thanks, TK UI DESIGNER documented in this encounter Plan of Treatment Upcoming Encounters Date Type Specialty Care Team Description 02/15/2022 Office Visit Orthopedic Surgery Madyson Rosa, D.O. [address] [place], [place] [phone] (Wo rk) documented as of this encounter Procedures Procedure Name Priority Date/Time Associated Diagnosis Comme nts LIPID PANEL, S Routine 05/21/2019 7:57 Hyperlipidemia Results for this AM WEB UI DESIGNER procedure are i n the results section. CBC WITHOUT Routine 05/21/2019 7:57 Pain Right Upper Results for this DIFFERENTIAL, B AM WEB UI DESIGNER Quadrant procedure ar e in the results section. LIPASE, S/P Routine 05/21/2019 7:57 Pain Right Upper Results for this AM WEB UI DESIGNER Quadrant procedure are i n the results section. COMPREHENSIVE Routine 05/21/2019 7:57 Pain Right Upper Results for this METABOLIC PANEL, S/P AM WEB UI DESIGNER Quadrant procedu re are in the results section. documented in this encounter Results CBC without Differential (05/21/2019 7:57 AM WEB UI DESIGNER) athologist Signature Hemoglobin 15.1 13.2 - 05/21/2019 NPRG 16.6 g/dL 8:04 AM WEB UI DESIGNER Hematocrit 44.5 38.3 - 05/21/2019 NPRG 48.6 % 8:04 AM WEB UI DESIGNER Erythrocytes 4.82 4.35 - 05/21/2019 NPRG 5.65 8:04 AM WEB UI DESIGNER x10(12)/L MCV 92.3 78.2 - 05/21/2019 NPRG 97.9 fL 8:04 AM WEB UI DESIGNER RBC Distrib Width 12.5 11.8 - 05/21/2019 NPRG 14.5 % 8:04 AM WEB UI DESIGNER Platelet Count 201 135 - 317 05/21/2019 NPRG x10(9)/L 8:04 AM WEB UI DESIGNER Leukocytes 6.4 3.4 - 9.6 05/21/2019 NPRG x10(9)/L 8:04 AM WEB UI DESIGNER Specimen Anatomical Collection Method Collection Time Receive d Time (Source) Location / / Volume Laterality Blood (Blood, 05/21/2019 7:57 AM 05/21/19 20 7:59 Venous) WEB UI DESIGNER AM WEB UI DESIGNER Viridiana Adams APRNN.P. LAB BLOOD ADD-ON Performing Organization Address City/State/ZIP Code Phon e Number [facility] [address] [place] [address] [address] [place] [facility] NPRG [facility] [place] [address] [facility] [address] Lipase (05/21/2019 7:57 AM WEB UI DESIGNER) athologist Signature Lipase, P 17 13 - 60 U/L 05/21/2019 8:26 NPRG AM WEB UI DESIGNER Specimen Anatomical Collection Method Collection Time Receive d Time (Source) Location / / Volume Laterality Blood (Blood, 05/21/2019 7:57 AM 05/21/19 7:59 Venous) WEB UI DESIGNER AM WEB UI DESIGNER Norma Kenny APRN, C.N.P. LAB BLOOD ADD-ON Performing Organization Address City/State/ZIP Code Phon e Number [facility]- [address] [place], [place] [address] [place] [address] LAB [place]G [place] [address] [facility] [address] (ABNORMAL) Comprehensive Metabolic Panel (05/21/2019 7:57 AM WEB UI DESIGNER) Analysis Performed At Patho logist Time Signature Potassium, P 4.3 3.6 - 5.2 05/21/2019 NPRG mmol/L 8:26 AM WEB UI DESIGNER Sodium, P 138 135 - 145 05/21/2019 NPRG mmol/L 8:26 AM WEB UI DESIGNER Chloride, P 96 (L) 98 - 107 05/21/2019 NPRG mmol/L 8:26 AM WEB UI DESIGNER Bicarbonate, P 27 22 - 29 05/21/2019 NPRG mmol/L 8:26 AM WEB UI DESIGNER Anion Gap, P 15 7 - 15 05/21/2019 NPRG 8:26 AM WEB UI DESIGNER BUN (Blood Urea 22 8 - 24 05/21/2019 NPRG Nitrogen), P mg/dL 8:26 AM WEB UI DESIGNER Creatinine 0.71 (L) 0.74 - 05/21/2019 NPRG 1.35 mg/dL 8:26 AM WEB UI DESIGNER eGFR-Black/Afri >90 >=60 05/21/2019 NPRG can Israeli mL/min/BSA 8:26 AM WEB UI DESIGNER Comment: ----ADDITIONAL INFORMATION---- Estimated GFR calculated using the 2009 CKD_EPI creatinine equation. eGFR Non-Black/ >90 >=60 mL/min/BSA 05/21/2019 8:26 AM WEB UI DESIGNER NPRG Comment: ----ADDITIONAL INFORMATION---- Estimated GFR calculated using the 2009 CKD_EPI creatinine equation. Calcium, Total, P 10.0 8.6 - 10.0 mg/dL 05/21/2019 8:26 AM WEB UI DESIGNER NPRG Glucose, P 116 70 - 140 mg/dL 05/21/2019 8:26 AM WEB UI DESIGNER N PRG Protein, Total, P 8.3 (H) 6.3 - 7.9 g/dL 05/21/2019 8:26 A M WEB UI DESIGNER NPRG Albumin, P 4.8 3.5 - 5.0 g/dL 05/21/2019 8:26 AM WEB UI DESIGNER N PRG Aspartate Aminotransferase 34 8 - 48 U/L 05/21/2019 8 :26 AM WEB UI DESIGNER NPRG (AST), P Alkaline Phosphatase, P 63 40 - 129 U/L 05/21/2019 8: 26 AM WEB UI DESIGNER NPRG Alanine Aminotransferase 35 7 - 55 U/L 05/21/2019 8:2 6 AM WEB UI DESIGNER NPRG (ALT), P Bilirubin, Total, P 0.9 <=1.2 mg/dL 05/21/2019 8:26 AM WEB UI DESIGNER NPRG Specimen Anatomical Collection Method Collection Time Receive d Time (Source) Location / / Volume Laterality Blood (Blood, 05/21/2019 7:57 AM 05/21/19 20 7:59 Venous) WEB UI DESIGNER AM WEB UI DESIGNER Norma Kenny APRN CNikhilNNikhilP. LAB BLOOD ADD-ON Performing Organization Address City/State/ZIP Code Phon e Number [facility]- [address] [place] [address] [place] [address] [place] [address] [place] [address] [place] (ABNORMAL) Lipid Panel (05/21/2019 7:57 AM WEB UI DESIGNER) P athologist Signature Cholesterol, 218 (H) mg/dL 05/21/2019 NPRG Total 8:26 AM WEB UI DESIGNER Comment: ----REFERENCE VALUE---- Desirable: < 200 Borderline high: 200 - 239 High: > or = 240 Triglycerides 56 mg/dL 05/21/2019 8:26 AM WEB UI DESIGNER NPR G Comment: ----REFERENCE VALUE---- Normal: <150 Borderline high: 150-199 High: 200-499 Very high: > or =500 Cholesterol, HDL 80 >=40 mg/dL 05/21/2019 8:26 AM WEB UI DESIGNER NPRG Calculated LDL 127 mg/dL 05/21/2019 8:26 AM WEB UI DESIGNER STEM MOUNTER RG Comment: ----REFERENCE VALUE---- Desirable: <100 Above Desirable: 100-129 Borderline high: 130-159 High: 160-189 Very high: > or =190 Cholesterol, Non-HDL, Calculated 138 mg/dL 020 8:26 AM WEB UI DESIGNER NPRG Comment: ----REFERENCE VALUE---- Desirable: <130 Above Desirable: 130-159 Borderline high: 160-189 High: 190-219 Very high: > or =220 Specimen Anatomical Collection Method Collection Time Receive d Time (Source) Location / / Volume Laterality Blood (Blood, 05/21/2019 7:57 AM 05/21/19 7:59 Venous) WEB UI DESIGNER AM WEB UI DESIGNER Ame Beal APRN, C.N.P., R.N. LAB BLOOD ADD-ON Performing Organization Address City/State/ZIP Code Phon e Number [facility]- [address] [place], [place] [address] [place] [address] [facility] [address] documented in this encounter Visit Diagnoses Diagnosis Hyperlipidemia Pain Right Upper Quadrant documented in this encounter Additional Health Concerns Assessment Noted Time PHQ-9 Depression Total Score: 2 09/17/2018 9:08 AM CDT documented as of this encounter Care Teams Hat Cutter Relationship Specialty Start Date End Date Norma Kenny APRN, C.N.P. PCP - General 09/12/[address] [place] [address] documented as of this encounter
--- OUTSIDE RECORDS SUMMARY | 2022-01-25 11:39 | XMS_ITS | Encounter Summary ---
:1965 Author Organization [facility] Address [address] [place] [address] Care Team Providers Name Role Phone Norma Kenny APRN C.N.P. Primary Care Provider [phone] Encounter Details Date Type Department Care Team Description 11/04/2018 Hospital Encounter Department of [place], Ame Pain Ri ght Upper Radiology in [place], [place] C.N.P., R.N. 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 30-60 minutes prior to sexual activity. atorvastatin (LIPITOR) 20 Take 1 tablet (20 90 tablet 0 02/12/2019 mg tabletIndications: mg total) by mouth Hyperlipidemia at bedtime. famotidine (PEPCID) 10 mg Take 10 mg by 0 01/25/2021 tablet mouth 2 (two) times a day as needed for heartburn. lisinopril-hydroCHLOROthiaz Take 1 tablet by 90 tablet 3 10/22/2019 madeline (PRINZIDE,ZESTORETIC) mouth daily. 20-25 mg per tabletIndications: Hypertension Essential Primary metoprolol succinate Take 1 tablet (25 90 tablet 0 09/18/19 19 12/17/2018 (TOPROL-XL) 25 mg 24 hr mg total) by mouth tabletIndications: daily. For blood Palpitations pressure. pantoprazole (PROTONIX) 40 Take 1 tablet (40 90 tablet 3 04/03/2021 mg EC tabletIndications: mg total) by mouth Gastroesophageal Reflux as needed for Disease heartburn. documented as of this encounter Plan of Treatment Upcoming Encounters Date Type Specialty Care Team Description 02/15/2022 Office Visit Orthopedic Surgery Madyson Rosa il, D.O. [address] [place], [place] [phone] (Wo rk) documented as of this encounter Procedures Procedure Name Priority Date/Time Associated Comments Diagnosis US GALLBLADDER AND RAD - Routine 11/04/2018 8:41 Pain Right Upper R esults for this OR BILIARY DUCTS (most inpatients AM CDT Quadrant procedu re are in and all the results outpatients) section. documented in this encounter Results US Gallbladder (11/04/2018 8:41 [...] Visit Diagnoses Diagnosis Pain Right Upper Quadrant documented in this encounter Additional Health Concerns Assessment Noted Time PHQ-9 Depression Total Score: 2 09/17/2018 9:08 AM CDT documented as of this encounter Care Teams Dental Technician Instructor Relationship Specialty Start Date End Date Norma Kenny APRN, C.N.P. PCP - General 09/12/[address] [place] [address] documented as of this encounter
--- OUTSIDE RECORDS SUMMARY | 2022-01-25 11:39 | XMS_ITS | Encounter Summary ---
:1965 Author Organization [facility] Address [address] [place] [address] Care Team Providers Name Role Phone Norma Kenny APRN, C.N.P. Primary Care Provider [phone] Encounter Details Date Type Department Care Team Description 05/26/2019 Orders Only Department of [facility] Norma Kenny, Medicine in [facility] STEVEN, C. N.P. 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 PCP - General 09/12/[address] [place] [phone] documented as of this encounter
--- OUTSIDE RECORDS SUMMARY | 2022-01-25 11:39 | XMS_ITS | Encounter Summary ---
:1965 Author Organization [facility] Address [address] [place] [address] Care Team Providers Name Role Phone Norma Kenny APRN C.N.P. 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 Specimen Anatomical Collection Method Collection Time Receive d Time (Source) Location / / Volume Laterality Urine (Urine, 05/25/2019 9:36 AM 05/25/19 20 3:02 Midstream) NUMERICAL CONTROL NESTING OPERATOR PM NUMERICAL CONTROL NESTING OPERATOR Comment: Specimen Source Site: Urine Norma Kenny APRN, C.N.P. LAB MICROBIOLOGY - GENERA L ORDERABLES Performing Organization Address City/State/ZIP Code Phon e Number [facility]- [address] [place] [address] [place] [address] (ABNORMAL) Urinalysis with Microscopic if Indicated (05/25/2019 9:36 AM NUMERICAL CONTROL NESTING OPERATOR) athologist Signature Source Midstream 05/25/2019 [facility] 9:39 AM NUMERICAL CONTROL NESTING OPERATOR Clarity Clear Clear 05/25/2019 [facility] 9:39 AM NUMERICAL CONTROL NESTING OPERATOR Color Yellow 05/25/2019 [facility] 9:39 AM NUMERICAL CONTROL NESTING OPERATOR Comment: ----REFERENCE VALUE---- Colorless Yellow Jodi Blood Negative Negative 05/25/2019 9:39 AM NUMERICAL CONTROL NESTING OPERATOR [facility] Nitrite Negative Negative 05/25/2019 9:39 AM NUMERICAL CONTROL NESTING OPERATOR [facility] Leukocyte Esterase Negative Negative 05/25/2019 9:39 AM CS T [facility] Protein Negative mg/dL 05/25/2019 9:39 AM NUMERICAL CONTROL NESTING OPERATOR [facility] Comment: ----REFERENCE VALUE---- Negative Trace Glucose Negative Negative mg/dL 05/25/2019 9:39 AM NUMERICAL CONTROL NESTING OPERATOR FUNDING SPECIALIST CL Ketones, QI(U) Trace (A) Negative mg/dL 05/25/2019 9:[address] [facility] Bilirubin Negative Negative 05/25/2019 9:39 AM NUMERICAL CONTROL NESTING OPERATOR [facility] pH 7.0 5.0 - 8.0 05/25/2019 9:39 AM NUMERICAL CONTROL NESTING OPERATOR NP[facility] Specific Morrison 1.020 1.001 - 1.035 05/25/2019 9:39 AM NUMERICAL CONTROL NESTING OPERATOR NP[facility] Urobilinogen 2.0 (A) 0.2 - 1.0 mg/dL 05/25/2019 9:39 AM CS T NP[facility] Specimen Anatomical Collection Method Collection Time Receive d Time (Source) Location / / Volume Laterality Urine (Urine, 05/25/2019 9:36 AM 05/25/19 9:36 Clean Catch) NUMERICAL CONTROL NESTING OPERATOR AM NUMERICAL CONTROL NESTING OPERATOR Norma Kenny APRN, C.N.P. LAB URINE ORDERABLES Performing Organization Address City/State/ZIP Code Phon e Number [facility]- [address] [place] [address] 71 [facility] [place] [address] documented in this encounter Visit Diagnoses Diagnosis Pain Flank - Primary documented in this encounter Additional Health Concerns Assessment Noted Time PHQ-9 Depression Total Score: 2 09/17/2018 9:08 AM CDT documented as of this encounter Care Teams Production Controller Relationship Specialty Start Date End Date Norma Kenny APRN, C.N.P. PCP - General 09/12/[address] [place] [phone] documented as of this encounter
--- OUTSIDE RECORDS SUMMARY | 2022-01-25 11:39 | XMS_ITS | Encounter Summary ---
:1965 Author Organization [facility] Address [address] [place] [address] Care Team Providers Name Role Phone Norma Kenny APRN C.N.P. Primary Care Provider [phone] Reason for Visit Reason Comments Mass scrotum Outpatient (Routine) - Closed Specialty Diagnoses / Procedures Referred By Contact Refer red To Contact Urology Diagnoses Pain Groin Pain Scrotum Ame Beal APRN, [facility] C.N.P., R.N. [address] [facility], [facility] [[email or web address] [address] [place] [address] Referral ID Status Reason Start Date Expiration Date Visits Requ ested Visits Authorized [id number] Closed 06/08/2018 06/08/2019 1 1 Encounter Details Date Type Department Care Team Description 03/10/2019 Comprehensive Visit Department of Urology Jaswinder Whitlock, Pain Groin; in [facility] STEVEN C.N.P., Pain Scrotum [place] D.N.P. 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 - 03/10/2019 2:30 PM CST SUBJECTIVE REQUESTING PROVIDER Ame Beal APRN, C.N.P., R.N. REASON FOR CONSULT Scrotal mass HISTORY OF PRESENT ILLNESS Saad Murray is a 53 y.o. male with past medical history of hypertension, GERD, hypercholesterolemia, and obesity. He presented to Family Medicine on 09/17/2018 for his annual physical exam andreported a right groin nodule is that that he had previously reported at multiple other visits. He also reported right groin and medial thigh pain for which he was using ibuprofen and Tylenol daily. The patient was referred to Urology for further evaluation and management of this. Today he reports noticing a bump the size of a beebee on the right testicle approximately 1 year ago. He denies noticing any changes of this over the past year. He reports very mild pain at this site, if any. The majority of his pain seems to originate from the right groin and radiates into the right lower abdomen and bilateral ribs. The bilateral rib/flank pain seems to occur most often when he issitting and he describes it as ???burning pain ???. 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 This pain started fall 2018. He denies scrotal pain, swelling, or erythema. No history of scrotal trauma. He denies fevers, chills, burning with urination, blood in his urine, increased frequency, urgency, nocturia, straining to urinate, weak stream. He does feel as though he is emptying his bladder well. No known family history of testicular cancer. Lower Urinary Symptoms Lower Urinary Sx: hematuria (-) difficulty urinating (-) Presence of pelvic pain: abdominal pain (+) Obstructive Sx: weak stream (-) straining (-) # of UTI's in past year: None Incontinence: dribbling (-) Standardized questionnaires [facility]-- The following portions of the patient's history were reviewed and updated as appropriate: allergies,current medications, family history, medical history, social history, surgical history and problem list. REVIEW OF SYSTEMS Constitutional: Negative for fever. Gastrointestinal: Positive for abdominal (belly) pain or cramping. Negative for nausea and vomiting. Genitourinary: Negative for incontinence, difficulty urinating, pain with urination, hematuria, urgency and frequent urination. Musculoskeletal: Positive for back pain. All other systems reviewed and are negative. OBJECTIVE PHYSICAL EXAM Vitals: 03/10/19 1441 BP: 141/88 Patient Position: Sitting Pulse: 84 Resp: 16 Constitutional: He is oriented to person, place, and time. He appears well- developed and well-nourished. No distress. HENT: Head: Normocephalic and atraumatic. Pulmonary/Chest: Effort normal. No respiratory distress. Neurological: He is alert and oriented to person, place, and time. Skin: Skin is warm and dry. He is not diaphoretic. Psychiatric: He has a normal mood and affect. His behavior is normal. Thought content normal. Vitals reviewed. HEENT: Normocephalic, atraumatic. NECK: No lymphadenopathy, no masses CARDIOVASCULAR: Pulses intact in upper extremities, no visible jugular venous distension. RESPIRATORY: No respiratory distress ABDOMEN: Soft, nontender, nondistended. No CVA tenderness. No organomegaly. No ventral hernias. GENITOURINARY: Penis urethral meatus normal without discharge, no plaques Scrotum scrotal wall normal, no swelling or erythema Testicles -normal size, normal consistency, tiny 3 mm solid, fixed mass palpated near the right epididymis, no tenderness with palpation Spermatic cord no masses No inguinal hernias present bilaterally Post void residual: 37 mL LABORATORY Lab Results Component Value Date PSA 0.62 09/17/2018 Lab Results Component Value Date HGB 15.7 07/11/2017 PSA 0.62 09/17/2018 ALKPHOS 67 07/11/2017 AST 25 09/10/2018 ALT 28 09/10/2018 IMAGING 02/23/2019 SCROTAL ULTRASOUND IMPRESSION: Palpable finding on exam corresponds to a tiny echogenic focus within the right epididymal body. Favor benign etiology, and consider small adenomatoid tumor or lipoma. Recommend urology consultation and sonographic follow-up in the absence of surgical resection. 02/23/2019 ABDOMINAL ULTRASOUND IMPRESSION: No acute findings. 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 Ballard. 3 mm mass appears to be outside of right testicle.It does appear to be vascular. 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 Dr. Ballard did not feel as though obtaining serum tumor markers (alpha fetoprotein, beta HCG, LDH) or excision biopsy were necessary at this time. He recommended following up in 3 months with a repeat scrotal ultrasound. This was discussed with the patient and he was in agreement with Dr. Ballard's recommendation. The majority of his pain seems to originate from the right groin and radiates into the right lower abdomen and bilateral ribs. The bilateral rib/flank pain seems to occur most often when he is sitting and he describes it as ???burning pain ???. 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 Suspect that this pain is completely unrelated to the tiny extratesticular mass. Do not suspect that the pain is urologic in origin. Recommended rest, ice application, Tylenol or ibuprofen, and follow up with his primary care provider. PLAN -UA/UC today - will call with the results -Follow up in 3 months with a repeat scrotal ultrasound prior -Continue prostate cancer screening with his PCP The patient verbalized understanding and agreement with this plan. They may contact the clinic with any questions or concerns. ADDENDUM 05/31/19: The patient underwent a CT abdomen pelvis with contrast on 05/21/2019 for right upper quadrant and right flank pain. This showed bilateral perinephric stranding without hydronephrosis or stones. His primary care provider, Norma Kenny reached out to Urology for our opinion. Upon chart review, the patient's GFR on 05/21/2019 was greater than 90. He has no history of chronickidney disease and his baseline creatinine is around 0.8. He does have a history of hypertension andis on metoprolol and lisinopril- hydrochlorothiazide. Per his PCP, he reported right upper quadrant and right flank pain, but denied any urinary symptoms or gross hematuria. Urology recommended obtaining a urinalysis and culture, as well as a postvoid residual bladder scan.His urinalysis and culture was negative for infection. Patient opted not to have a bladder scan done, and on review of his CT with Dr. Ballard, there is no thickening of his bladder or severe prostatomegaly present to suggest bladder outlet obstruction. Dr. Ballard also noted significant bilateral robert nephric fat stranding present. Unfortunately, his only previous abdominal imaging was an ultrasound of the abdomen on 02/23/2019 showing no hydronephrosis. This patient has a follow-up scheduled with Dr. Ballard on 06/23/2019 to follow the right extratesticular mass. Dr. Ballard recommended a repeat CT abdomen pelvis with contrast in 3 months. He will discussthis with the patient at his follow-up appointment and order it at that time. In the meantime, if the patient develops fevers, chills, malaise, urinary symptoms, or severe flank pain not relieved with pain medication, would recommend prompt further evaluation. 05/21/2019 CT ABDOMEN PELVIS WITH CONTRAST IMPRESSION: 1. No evidence of appendicitis or inflammatory bowel disease or bowel obstruction. 2. Stranding of perirenal fat bilaterally consistent with history of renal medical disease. No evidence of nephro or ureterolithiasis or hydronephrosis or pyelonephritis. 3. Small fat-containing inguinal hernias bilaterally, no evidence of ventral or umbilical hernia. ?? Signed by: No Whitlock APRN, C.N.PNikhil, D.N.P. 03/14/2019 10:39 PM LIFE BIOLOGIST documented in this encounter Plan of Treatment Upcoming Encounters Date Type Specialty Care Team Description 02/15/2022 Office Visit Orthopedic Surgery Madyson Rosa, DaydayONikhil [address] [place], [place] [phone] (Wo rk) documented as of this encounter Visit Diagnoses Diagnosis Pain Groin Pain Scrotum documented in this encounter Additional Health Concerns Assessment Noted Time PHQ-9 Depression Total Score: 2 09/17/2018 9:08 AM CDT documented as of this encounter Care Teams Distribution Dispatcher Relationship Specialty Start Date End Date Norma Kenny APRN, C.N.P. PCP - General 09/12/[address] [place] [phone] documented as of this encounter
--- OUTSIDE RECORDS SUMMARY | 2022-01-25 11:39 | XMS_ITS | Encounter Summary ---
:1965 Author Organization [facility] Address [address] [place] [address] Care Team Providers Name Role Phone Norma Kenny APRN, C.N.P. Primary Care Provider [phone] Reason for Visit Reason Comments Nurse Visit blood pressure check, update on abdominal pain Outpatient (Routine) - Closed Specialty Diagnoses / Procedures Referred By Contact Refer red To Contact Family Medicine Diagnoses Hypertension Essential Primary Ame Beal APRN, [facility] C.N.P., R.N. [address] [facility], [facility] [address] [place] [address] Referral ID Status Reason Start Date Expiration Date Visits Requ ested Visits Authorized [id number] Closed 09/17/2018 09/17/2019 1 1 Encounter Details Date Type Department Care Team Description 10/19/2018 Nurse Only Department of Family Louie Beal APRN, C.N.P., R.N. [address] [place] [address] [address] [place] [address] Nurse Visit (blood Medicine in [place], Luke, Moira Saldana, C.M.A. pressure check, update [place] on abdominal pain) [address] [place] [phone] Social History Tobacco Use Types Packs/Day Years [...] or relatives? How often do you attend islam or synagogue More than 4 time s per year 09/17/2018 services? Do you belong to any clubs or organizations No 09/17/2018 such as islam groups, unions, fraternal or athletic groups, or [...] Sign Reading Time Taken Comments Blood Pressure 144/72 10/19/2018 8:52 AM CDT Pulse 80 10/19/2018 8:26 AM CDT Temperature - - Respiratory Rate - - Oxygen Saturation 99% 10/19/2018 8:26 AM CDT Inhaled Oxygen Concentration - - Weight - - Height - - Body Mass Index - - documented in this encounter H&P Notes Moira Butler C.M.A. - 10/19/2018 8:30 AM CDT Patient in for BP check and update on his abdominal pain. He states there hasn't been any change in his pain. He is at a constant 2 describing it as a dull ache. He states it is worse when he lays downand worse when he is laying on his right side. He states his pain was 6-7/10 last night when he tried to lay down to go to bed, states the pain kept his up last night. He states he ate dinner between 6:00-7:00 last night and layed down to go to bed around 9:00. He was given information from the [facility] website for increasing fiber in his diet, also encouraged exercise and to continue MiraLAX daily. He would like to hold off on ultrasound a few more days and try this. He states he is having bowelmovements but still feels constipated. He is requesting engineering technical writer call patient on Friday to get an update and possible order US of gallbladder at that time. documented in this encounter Plan of Treatment Upcoming Encounters Date Type Specialty Care Team Description 02/15/2022 Office Visit Orthopedic Surgery Madyson Rosa il, D.O. [address] [place], [place] [phone] (Wo rk) documented as of this encounter Visit Diagnoses Diagnosis Hypertension Essential Primary documented in this encounter Additional Health Concerns Assessment Noted Time PHQ-9 Depression Total Score: 2 09/17/2018 9:08 AM CDT documented as of this encounter Care Teams Avionics Manager Relationship Specialty Start Date End Date Norma Kenny, STEVEN, C.N.P. PCP - General 09/12/[address] [place] [address] documented as of this encounter
--- OUTSIDE RECORDS SUMMARY | 2022-01-25 11:39 | XMS_ITS | Encounter Summary ---
:1965 [address] [facility] Address [address] [place] [address] Care Team Providers Name Role Phone Norma Kenny APRN, C.N.P. Primary Care Provider [phone] Reason for Visit MRI/CAT/PET Scan (Routine) - Closed Specialty Diagnoses / Procedures Referred By Contact Refer red To Contact Radiology Diagnoses Pain Right Upper Quadrant Norma Kenny APRN, [facility] Region Procedures CT Abdomen Pelvis with IV Contrast CT Abdomen without and with IV Contrast ND CT ABDOMEN WO/W CNTRST ND CT ABD&PELVIS W CNTRST C.N.P. [address] [place] [phone] Referral ID Status Reason Start Date Expiration Date Visits Requ ested Visits Authorized [id number] Closed 05/19/2019 05/18/2020 1 1 Encounter Details Date Type Department Care Team Description 05/21/2019 Hospital Encounter Department of Norma Kenny R ight Upper Radiology in Erik Salas APRN, C.N.P. 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 - 05/24/2019 3:33 PM BREAD BAKER Will await UA/UC results and go from there. He may need to see urology sooner or see general surgeryto discuss this. If he wants to stop in today or this evening he could also go to Urgent care or drop a UA at the hospital. Thanks, TK D BAKER Result Encounter Note - Norma Kenny APRN, C.N.P. - 05/24/2019 1:57 PM BREAD BAKER Sidney Pisano - Please let patient know his CT looked all normal, he has some small inguinal hernias and some fat stranding around his kidneys which may or may not be related to his right sided pain, but we should get a urinalysis to see if he has any infection in his urine. I will place the order if he can stop inquickly and leave a urine sample at the clinic or hospital. This should not take long. Thanks, TK D BAKER Result Encounter Note - Norma Kenny APRN, C.N.P. - 05/24/2019 1:55 PM BREAD BAKER Sidney Sarabia - Yes he came in for right sided flank pain that is tender to palpation and has wrapped around his right side rib area near his RUQ. He has right sided groin pain as well which he has discussed with you. I will start with UA/UC. He is due to see you/Dr. Ballard in 1 month, do you want me to have him follow up with you sooner? Thanks, TK D BAKER Result Encounter Note - Norma Kenny APRN, C.N.P. - 05/21/2019 2:08 PM BREAD BAKER Sidney Ballard/ No- I believe you all saw this patient in the urology department and will be following up with him next month. I am working him up for right sided CVA pain that wraps around his right side. It is tender topalpation. It seems musculoskeletal on exam but I wanted to rule out any other pathology. Any thoughts on this finding of bilateral perirenal fat consistent with a history of renal medical disease? He denies any hematuria or other urinary symptoms. He is seeing you all in urology I believe for rightgroin and possibly testicular pain. I am not familiar with this CT terminology so wanted to run it by you all since he will be seeing you in a month. Could this have anything to do with his pain? I appreciate your input! Thanks, Norma Kenny APRN Family Medicine D BAKER documented in this encounter Plan of Treatment Upcoming Encounters Date Type Specialty Care Team Description 02/15/2022 Office Visit Orthopedic Surgery RavinmtMadyson haq, D.O. [address] [place] [phone] (Wo rk) documented as of this encounter Procedures Procedure Name Priority Date/Time Associated Comments Diagnosis CT ABDOMEN PELVIS RAD - Routine 05/21/2019 8:39 Pain Right Upper Re sults for this WITH IV CONTRAST (most inpatients AM BREAD BAKER Quadrant procedu re are in and all the results outpatients) section. documented in this encounter Results CT Abdomen Pelvis with IV Contrast (05/21/2019 8:39 AM BREAD BAKER) Anatomical Region Laterality Modality Abdomen, Pelvis, Abdominal RST LOS, Abdominal ARZ LOS, N/A Computed Tomography Abdominal FLA LOS Specimen (Source) Anatomical Collection Method Collection Time Re ceived Time Location / / Volume Laterality 05/21/2019 10:19 AM BREAD BAKER Impressions 05/21/2019 10:27 AM BREAD BAKER 1. No evidence of appendicitis or inflammatory bowel disease or bowel obstruction. 2. Stranding of perirenal fat bilaterall y consistent with history of renal medical disease. No evidence of nephro o r ureterolithiasis or hydronephrosis or pyelonephritis. 3. Small fat-containing inguinal hernias bilaterally, no evidence of ventral or umbilical hernia. Narrative 05/21/2019 10:27 AM BREAD BAKER EXAM: CT ABDOMEN PELVIS WITH IV CONTRAST COMPARISON: None FINDINGS: The abdomen and pelvis are sca nned from the diaphragm through the perineum following administration of int ravenous contrast for chest CT. The lung bases are unremarkable. In the abdomen the liver, gallbladder, a nd bile ducts are unremarkable. There are multiple calcified splenic granuloma ta with the spleen otherwise normal. The pancreas and adrenal glands are normal. The kidneys are normal in overall size and position. There is some stranding of perirenal fat bilaterally suggesting some history of renal medical disease. N o nephro or ureterolithiasis or hydronephrosis is identified. There are multiple bilateral pelvic phleboliths. The partially distended bladder is unrem arkable. Prostate and seminal vesicles are normal. The colon is unremarkable. T he appendix is normal. Small bowel loops show no evidence of inflammatory bowel d isease or obstruction. Partially distended stomach is unremarkable. There is no ascites. No retroperitoneal or pelvic lymphadenopathy is identified. Th e abdominal aorta and vascular structures are unremarkable. There are l rangel fat-containing inguinal hernias bilaterally. There is no evidence of umb ilical or ventral hernia. There is scattered degenerative disc disease in t he lower thoracic and lumbar spine. Osseous structures are unremarkable othe rwise. Procedure Note Srinivas Victoria Jr., M.D. - 2019 EXAM: CT ABDOMEN PELVIS WITH IV CONTRAST COMPARISON: None FINDINGS: The abdomen and pelvis are sca nned from the diaphragm through the perineum following administration of int ravenous contrast for chest CT. The lung bases are unremarkable. In the abdomen the liver, gallbladder, a nd bile ducts are unremarkable. There are multiple calcified splenic granuloma ta with the spleen otherwise normal. The pancreas and adrenal glands are normal. The kidneys are normal in overall size and position. There is some stranding of perirenal fat bilaterally suggesting some history of renal medical disease. N o nephro or ureterolithiasis or hydronephrosis is identified. There are multiple bilateral pelvic phleboliths. The partially distended bladder is unrem arkable. Prostate and seminal vesicles are normal. The colon is unremarkable. T he appendix is normal. Small bowel loops show no evidence of inflammatory bowel d isease or obstruction. Partially distended stomach is unremarkable. There is no ascites. No retroperitoneal or pelvic lymphadenopathy is identified. Th e abdominal aorta and vascular structures are unremarkable. There are l rangel fat-containing inguinal hernias bilaterally. There is no evidence of umb ilical or ventral hernia. There is scattered degenerative disc disease in t he lower thoracic and lumbar spine. Osseous structures are unremarkable othe rwise. IMPRESSION: 1. No evidence of appendicitis or inflam matory bowel disease or bowel obstruction. 2. Stranding of perirenal fat bilaterall y consistent with history of renal medical disease. No evidence of nephro o r ureterolithiasis or hydronephrosis or pyelonephritis. 3. Small fat-containing inguinal hernias bilaterally, no evidence of ventral or umbilical hernia. Norma Kenny APRN, C.N.P. IMG CT PROCEDURES documented in this encounter Visit Diagnoses Diagnosis Pain Right Upper Quadrant documented in this encounter Administered Medications Inactive Administered Medications - up to 3 most recent administrations Medication Order MAR Action Action Date Dose Rate Site iohexoL 350 mg iodine/mL solution Given 05/21/2019 9:00 AM BREAD BAKER 1 00 mL 1-200 mL (OMNIPAQUE) 1-200 mL, intravenous, Once in imaging, contrast, Starting on Fri05/21/19 at 0859, For 1 dose, Imaging Protocol Orders, Dose per Radiant Medication Guidelines NaCl 0.9 % bolus 100 mL New Bag 05/21/2019 9:00 AM BREAD BAKER 100 mL 100 mL/hr 100 mL, intravenous, at 100 mL/hr, Administer over 1 Hours, Once, On Fri05/21/19 at 0900, For 1 dose sodium chloride 0.9 % injection 10 mL Given 05/21/2019 9:00 AM BREAD BAKER 10 mL 10 mL, intravenous, Once in imaging, line care, prior to CT, Starting on Fri05/21/19 at 0859, For 1 dose documented in this encounter Additional Health Concerns Assessment Noted Time PHQ-9 Depression Total Score: 2 09/17/2018 9:08 AM CDT documented as of this encounter Care Teams Professional Nursing Assistant Relationship Specialty Start Date End Date Norma Kenny APRN, C.N.P. PCP - General 09/12/[address] [place] [phone] documented as of this encounter
--- OUTSIDE RECORDS SUMMARY | 2022-01-25 11:39 | XMS_ITS | Encounter Summary ---
:1965 Author Organization [facility] Address [address] [place] [address] Care Team Providers Name Role Phone Norma Kenny APRN, C.N.P. 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 [address] [place] [phone] (Wo rk) documented as of this encounter Procedures Procedure Name Priority Date/Time Associated Comments Diagnosis US ABDOMEN RAD - Routine 02/23/2019 10:13 Pain Rib Results for this COMPLETE (most inpatients AM REVENUE AGENT Pain Right Upper procedu re are in and all Quadrant the results outpatients) section. documented in this encounter Results US Abdomen Complete (02/23/2019 10:13 AM REVENUE AGENT) Anatomical Region Laterality Modality Abdomen, Ultrasound RST LOS, Ultrasound ARZ LOS, Ultrasound FLA N/A Ultrasound LOS Specimen (Source) Anatomical Collection Method Collection Time Re ceived Time Location / / Volume Laterality 02/23/2019 12:47 PM REVENUE AGENT Impressions 02/23/2019 12:53 PM REVENUE AGENT No acute findings. Narrative 02/23/2019 12:53 PM REVENUE AGENT EXAM: US ABDOMEN COMPLETE COMPARISON: None FINDINGS: Liver: Normal. ??Not optimally visualize d. Gallbladder: Normal. Intrahepatic ducts: Not dilated. Common duct: Not dilated. Pancreas: Poorly visualized Right kidney: ?? Length:10.8 cm. Normal echogenicity. No hydronephrosis. Left kidney: ?? Length:12.0 cm. Normal echogenicity. No hydronephrosis. Spleen: Normal. ??Spleen length:10.9 cm Aorta: Normal caliber. IVC: Normal where seen. Ascites: ??None. Procedure Note Mark Barone M.D. - 02/23/2019For matting of this note might be different from the original. EXAM: US ABDOMEN COMPLETE COMPARISON: None FINDINGS: Liver: Normal. Not optimally visualized. Gallbladder: Normal. Intrahepatic ducts: Not dilated. Common duct: Not dilated. Pancreas: Poorly visualized Right kidney: Length:10.8 cm. Normal echogenicity. No hydronephrosis. Left kidney: Length:12.0 cm. Normal echogenicity. No hydronephrosis. Spleen: Normal. Spleen length:10.9 cm Aorta: Normal caliber. IVC: Normal where seen. Ascites: None. IMPRESSION: No acute findings. Norma Kenny APRN, C.N.P. IMG US PROCEDURES documented in this encounter Visit Diagnoses Diagnosis Pain Rib Pain Right Upper Quadrant documented in this encounter Additional Health Concerns Assessment Noted Time PHQ-9 Depression Total Score: 2 09/17/2018 9:08 AM CDT documented as of this encounter Care Teams Contract Forester Relationship Specialty Start Date End Date Norma Kenny APRN, C.N.P. PCP - General 09/12/[address] [place] [phone] documented as of this encounter
--- OUTSIDE RECORDS SUMMARY | 2022-01-25 11:39 | XMS_ITS | Encounter Summary ---
:1965 Author Organization [facility] Address [address] [place] [address] Care Team Providers Name Role Phone Norma Kenny APRN, C.N.P. Primary Care Provider [phone] Encounter Details Date Type Department Care Team Description 02/23/2019 Orders Only Department of [facility] Norma Kenny, Medicine in [place], STEVEN, C. N.P. [place] [address] [place] [phone] (Wo rk) Social History Tobacco Use Types [...] or relatives? How often do you attend restorationist or judaism More than 4 time s per year 09/17/2018 services? 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 PCP - General 09/12/[address] [place] [phone] documented as of this encounter
--- OUTSIDE RECORDS SUMMARY | 2022-01-25 11:39 | XMS_ITS | Encounter Summary ---
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 - 11/02/2018 4:39 PM CDT Left detailed message, offered patient to call tomorrow am if he wants to try and add on the scrotalultrasound. Telephone Encounter - Ame Beal APRN, C.N.P. - 11/02/2018 4:32 PM CDT I am happy to see him, but there is not much more I can do about the groin pain. We have discussed it at multiple visits and I have referred him to Urology. There is also a scrotal ultrasound order in that he can call to schedule from March. I would recommend he see Urology about this. Thank you, HAO Telephone Encounter - Moira Butler C.M.A. - 11/02/2018 4:22 PM CDT Patient states the pain is still the same. He has been having liquid stools for 4-5 days now and is not taking any stool softener. He states it bothers him more when he is lying in bed, doesn't seem tobother him much during the day. He did request ultrasound be scheduled, he is set up for 11/04 at 8:15am, patient notified to be NPO for 6 hours. He states he would like a phone call with the results but plans to schedule an appointment with Ame soon because he states his groin is bothering him as well. Telephone Encounter - Moira Butler C.M.A. - 11/02/2018 1:49 PM CDT LMTCB Telephone Encounter - Moira Butler C.M.A. - 10/26/2018 4:28 PM CDT LMTCB Telephone Encounter - Moira Butler C.M.A. - 10/23/2018 8:23 AM CDT LMTCB Telephone Encounter - Moira Butler C.M.A. - 10/21/2018 9:08 AM CDT Patient states he tried the magnesium citrate on Friday and noticed improvement, feels like it worked. He does have a few ounces left that he will try again later in the week. He has also increased his water intake. He would like conventional underwriter to call back on Friday to get an update. Telephone Encounter - Moira Butler C.M.A. - 10/19/2018 4:13 PM CDT Left detailed message. Also mentioned that he needs to be NPO 6 hours for ultrasound should he decide to schedule. Will call patient back on Friday to get an update. Telephone Encounter - Ame Beal APRN, C.NNikhilPNikhil - 10/19/2018 12:46 PM CDT If he really feels the need to clean out, he could try a bottle of magnesium citrate as instructed. This is a stimulant laxative, so he will need to stay close to a bathroom. Good water intake with the high-fiber diet is recommended. Will wait to hear update from him in 2 days. Thank you, Ame Telephone Encounter - Moira Butler C.M.A. - 10/19/2018 8:58 AM CDT Patient in for BP check and update on his abdominal pain. BP on arrival was 150/76, repeat BP was 144/72. He states there hasn't been any change in his pain. He is at a constant 2 describing it as a dull ache. He states it is worse when he lays down and worse when he is laying on his right side. He states his pain was 6-7/10 last night when he tried to lay down to go to bed, states the pain kept his up last night. He states he ate dinner between 6:00-7:00 last night and layed down to go to bed around 9:00. He was given information from the [facility] website for increasing fiber in his diet, also encouraged exercise and to continue MiraLAX daily. He would like to hold off on ultrasound a few moredays and try this. He states he is having bowel movements but still feels constipated. He is requesting conventional underwriter call patient on Friday to get an update and possible order US of gallbladder at that time. documented in this encounter Plan of Treatment Upcoming Encounters Date Type Specialty Care Team Description 02/15/2022 Office Visit Orthopedic Surgery Madyson Rosa, D.ONikhil [address] [place], [place] [phone] (Wo rk) documented as of this encounter Visit Diagnoses Not on filedocumented in this encounter Additional Health Concerns Assessment Noted Time PHQ-9 Depression Total Score: 2 09/17/2018 9:08 AM CDT documented as of this encounter Care Teams Wire Harness Assembler Relationship Specialty Start Date End Date Norma Kenny APRN, C.N.P. PCP - General 09/12/[address] [place] [phone] documented as of this encounter
--- OUTSIDE RECORDS SUMMARY | 2022-01-25 11:39 | XMS_ITS | Encounter Summary ---
:1965 Author Organization [facility] Address [address] [place] [address] Care Team Providers Name Role Phone Norma Kenny APRN, C.N.P. Primary Care Provider [phone] Encounter Details Date Type Department Care Team Description 05/25/2019 Hospital Encounter Department of Laboratory Chase Kenny, Pain Flank Medicine in [facility] STEEVN, C. N.P. [place] [address] [place] [address] [phone] Social History Tobacco Use Types Packs/Day Years [...] How often do you attend restorationist or latter day More than 4 time [...] at Date Recorded Male 03/25/2018 1:01 PM AIR CARGO SPECIALIST SUPERVISOR documented as of this encounter Medications at [...] Note - Norma Kenny APRN, C.N.P. - 06/02/2019 1:20 PM AIR CARGO SPECIALIST SUPERVISOR Jeannette - please call and touch base with patient. How are his symptoms. Dr. Ballard and No Whitlock from urology plan to follow up with him in regards to his side and groin pain when he sees them later this month. His urine was negative for any infection, and his labs and imaging were otherwise normal. How is his right side pain? Would he like to try some physical therapy? Wait until he sees urology? Has he tried heat/ice to the area? Thanks, TK CARGO SPECIALIST SUPERVISOR Result Encounter Note - Norma Kenny APRN, C.N.P. - 05/28/2019 1:11 PM AIR CARGO SPECIALIST SUPERVISOR Sidney Sarabia - See message from patient. I do not see a result for PVR but patient states he already had one with good emptying? UA was normal other than elevated urobilinogen and UC was negative. Further thoughts or recommendations on his renal fat stranding and right sided flank/side pain? He currently has follow up scheduled with Dr. Ballard on 06/22. Thanks, TK CARGO SPECIALIST SUPERVISOR Result Encounter Note - Norma Kenny APRN, C.N.P. - 05/26/2019 3:29 PM AIR CARGO SPECIALIST SUPERVISOR Jeannette - Please let patient know his UA did not show any infection. I have a message to his urology team, they are recommending a post void residual bladder scan as follow up to the fat stranding they saw in his CT scan and due to his pain. I am awaiting more information on this. Marycarmen, DEBRA CARGO SPECIALIST SUPERVISOR Result Encounter Note - Norma Kenny APRN, C.N.P. - 05/26/2019 8:13 AM AIR CARGO SPECIALIST SUPERVISOR Sidney Sarabia - UA is negative other than elevated urobilinogen and trace ketones. Culture pending. Patient is wondering what the bladder scan will show before he schedules this as he does not want to do any excess testing? I can have a nurse call him later today with recommendations. DEBRA Conroy CARGO SPECIALIST SUPERVISOR documented in this encounter Plan of Treatment Upcoming Encounters Date Type Specialty Care Team Description 02/15/2022 Office Visit Orthopedic Surgery Madyson Rosa D.OiNkhil [address] [place], [place] [phone] (Wo rk) documented as of this encounter Procedures Procedure Name Priority Date/Time Associated Comments Diagnosis URINALYSIS WITH Routine 05/25/2019 9:36 AM Pain Flank Result s for this MICROSCOPIC IF AIR CARGO SPECIALIST SUPERVISOR procedure are in INDICATED, U the results section. BACTERIAL CULTURE, Routine 05/25/2019 9:36 AM Pain Flank Res ults for this AEROBIC + SUSC, URINE AIR CARGO SPECIALIST SUPERVISOR proced ure are in the results section. documented in this encounter Results Bacterial Culture, Aerobic + Susc, Urine (05/25/2019 9:36 AM AIR CARGO SPECIALIST SUPERVISOR) [facility] Method Time Signature Urine Culture No growth 05/26/2019 MK after 1 day 8:52 AM AIR CARGO SPECIALIST SUPERVISOR of incubation. Specimen Anatomical Collection Method Collection Time Receive d Time (Source) Location / / Volume Laterality Urine (Urine, 05/25/2019 9:36 AM 05/25/19 20 3:02 Midstream) AIR CARGO SPECIALIST SUPERVISOR PM AIR CARGO SPECIALIST SUPERVISOR Comment: Specimen Source Site: Urine Viridiana Adams APRNNNikhilPNikhil LAB MICROBIOLOGY - GENERA L ORDERABLES Performing Organization Address City/State/ZIP Code Phon e Number [facility]- [address] [place] [address] [place] [address] System in [address] (ABNORMAL) Urinalysis with Microscopic if Indicated (05/25/2019 9:36 AM AIR CARGO SPECIALIST SUPERVISOR) athologist Signature Source Midstream 05/25/2019 NPCL 9:39 AM AIR CARGO SPECIALIST SUPERVISOR Clarity Clear Clear 05/25/2019 NPCL 9:39 AM AIR CARGO SPECIALIST SUPERVISOR Color Yellow 05/25/2019 NPCL 9:39 AM AIR CARGO SPECIALIST SUPERVISOR Comment: ----REFERENCE VALUE---- Colorless Yellow Jodi Blood Negative Negative 05/25/2019 9:39 AM AIR CARGO SPECIALIST SUPERVISOR NPCL Nitrite Negative Negative 05/25/2019 9:39 AM AIR CARGO SPECIALIST SUPERVISOR NPCL Leukocyte Esterase Negative Negative 05/25/2019 9:39 AM CS T NPCL Protein Negative mg/dL 05/25/2019 9:39 AM AIR CARGO SPECIALIST SUPERVISOR NPCL Comment: ----REFERENCE VALUE---- Negative Trace Glucose Negative Negative mg/dL 05/25/2019 9:39 AM AIR CARGO SPECIALIST SUPERVISOR BUILD ENGINEER CL Ketones, QI(U) Trace (A) Negative mg/dL 05/25/2019 9:[address] NPCL Bilirubin Negative Negative 05/25/2019 9:39 AM AIR CARGO SPECIALIST SUPERVISOR NPCL pH 7.0 5.0 - 8.0 05/25/2019 9:39 AM AIR CARGO SPECIALIST SUPERVISOR NPCL Specific [place] 1.020 1.001 - 1.035 05/25/2019 9:39 AM AIR CARGO SPECIALIST SUPERVISOR NPCL Urobilinogen 2.0 (A) 0.2 - 1.0 mg/dL 05/25/2019 9:39 AM CS T NPCL Specimen Anatomical Collection Method Collection Time Receive d Time (Source) Location / / Volume Laterality Urine (Urine, 05/25/2019 9:36 AM 05/25/19 9:36 Clean Catch) AIR CARGO SPECIALIST SUPERVISOR AM AIR CARGO SPECIALIST SUPERVISOR Norma Kenny APRN, C.N.P. LAB URINE ORDERABLES Performing Organization Address City/State/ZIP Code Phon e Number [facility]- [address] [place] [address] [address] [facility] [place] [address] [place] [address] documented in this encounter Visit Diagnoses Diagnosis Pain Flank documented in this encounter Additional Health Concerns Assessment Noted Time PHQ-9 Depression Total Score: 2 09/17/2018 9:08 AM CDT documented as of this encounter Care Teams Marketing And Promotions Manager Relationship Specialty Start Date End Date Norma Kenny APRN, C.N.P. PCP - General 09/12/[address] [place] [phone] documented as of this encounter
--- OUTSIDE RECORDS SUMMARY | 2022-01-25 11:39 | XMS_ITS | Encounter Summary ---
:1965 Author Organization [facility] Address [address] [place] [address] Care Team Providers Name Role Phone Norma Kenny APRN, C.NNikhilPNikhil Primary Care Provider [phone] Reason for Visit Reason Comments Med Refill Encounter Details Date Type Department Care Team Description 12/17/2018 Refill Department of Family Medicine Medina Schmitt, [facility] [place] [address] Social History Tobacco Use Types Packs/Day [...] How often do you attend tenriism or jew More than 4 time s per year [...] at Date Recorded Male 03/25/2018 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 - 12/17/2018 10:17 AM CDT Medications Needing Refill: Metoprolol 25 mg Last Refilled: 09/17/18 Last Appointment: CME 09/17/18; BP check 10/19/18 Future Appointment: N/A documented in this encounter Plan of Treatment Upcoming Encounters Date Type Specialty Care Team Description 02/15/2022 Office Visit Orthopedic Surgery Madyson Roas, D.O. [address] [place], [place] [phone] (Wo rk) documented as of this encounter Visit Diagnoses Diagnosis Palpitations documented in this encounter Additional Health Concerns Assessment Noted Time PHQ-9 Depression Total Score: 2 09/17/2018 9:08 AM CDT documented as of this encounter Care Teams Warehouse Record Clerk Relationship Specialty Start Date End Date Norma Kenny, STEVEN, C.N.P. PCP - General 09/12/[address] [place] [address] documented as of this encounter
--- OUTSIDE RECORDS SUMMARY | 2022-01-25 11:39 | XMS_ITS | Encounter Summary ---
:1965 Author Organization [facility] Address [address] [place] [address] Care Team Providers Name Role Phone Norma Kenny APRN C.N.P. Primary Care Provider [phone] Encounter Details Date Type Department Care Team Description 02/12/2019 Hospital Encounter Department of Radiology, Chase Kenny, Pain Rib [facility], in STEVEN, C.N. P. 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 documented in this encounter Results DX Ribs Right 2 Views with Chest Posteroanterior 1 View (02/12/2019 2:07 PM MASON FOREMAN/SUPERINTENDANT) Anatomical Region Laterality Modality Ribs, Chest, Musculoskeletal RST LOS, Musculoskeletal Right Computed Radiography ARZ LOS, Muskuloskeletal FLA LOS Specimen (Source) Anatomical Collection Method Collection Time Re ceived Time Location / / Volume Laterality 02/12/2019 2:11 PM MASON FOREMAN/SUPERINTENDANT Impressions 02/12/2019 2:12 PM MASON FOREMAN/SUPERINTENDANT Negative chest and RIGHT ribs. Narrative 02/12/2019 2:12 PM MASON FOREMAN/SUPERINTENDANT EXAM: DX RIBS RIGHT 2 VIEWS WITH CHEST POSTEROANTERIOR 1 VIEW COMPARISON: Chest x-ray 11/12/2016 FINDINGS: The heart is normal in size. T he lungs are clear. Additional views of the RIGHT lower ribs are normal. Procedure Note Romaine Westbrook M.D. - 02/12/2019Forma tting of this note might be different from the original. EXAM: DX RIBS RIGHT 2 VIEWS WITH CHEST P OSTEROANTERIOR 1 VIEW COMPARISON: Chest x-ray 11/12/2016 FINDINGS: The heart is normal in size. T he lungs are clear. Additional views of the RIGHT lower ribs are normal. IMPRESSION: Negative chest and RIGHT ribs. Norma Kenny APRN, C.N.P. IMG DIAGNOSTIC IMAGING ID OCEDURES documented in this encounter Visit Diagnoses Diagnosis Pain Rib documented in this encounter Additional Health Concerns Assessment Noted Time PHQ-9 Depression Total Score: 2 09/17/2018 9:08 AM CDT documented as of this encounter Care Teams Physician Assistant Surgery Relationship Specialty Start Date End Date Norma Kenny APRN, C.N.P. PCP - General 09/12/[address] [place] [phone] documented as of this encounter
--- OUTSIDE RECORDS SUMMARY | 2022-01-25 11:39 | XMS_ITS | Encounter Summary ---
:1965 Author Organization [facility] Address [address] [place] [address] Care Team Providers Name Role Phone Norma Kenny APRN, C.N.P. Primary Care Provider [phone] Encounter Details Date Type Department Care Team Description 11/23/2018 Clinical Communication [facility]IN OR Maribel Watts, [address] [facility] R.[facility] 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 - 11/27/2018 2:21 PM CDT Patient will call back to reschedule. Telephone Encounter - Maribel Watts R.N. - 11/23/2018 9:18 AM CDT Spoke to pt and he needs to reschedule his colonoscopy for 11/26/18 since he unexpectedly has to move his daughter and he needs to be functional for that. Pt would like a call back to reschedule. documented in this encounter Plan of Treatment Upcoming Encounters Date Type Specialty Care Team Description 02/15/2022 Office Visit Orthopedic Surgery Madyson Rosa, DNikhilONikhil [address] [place], [place] [phone] (Wo rk) documented as of this encounter Visit Diagnoses Not on filedocumented in this encounter Additional Health Concerns Assessment Noted Time PHQ-9 Depression Total Score: 2 09/17/2018 9:08 AM CDT documented as of this encounter Care Teams Food Service Cashier Relationship Specialty Start Date End Date Norma Kenny APRN, C.N.P. PCP - General 09/12/[address] [place] [phone] documented as of this encounter
--- OUTSIDE RECORDS SUMMARY | 2022-01-25 11:39 | XMS_ITS | Encounter Summary ---
:1965 Author Organization [facility] Address [address] [place] [address] Care Team Providers Name Role Phone Norma Kenny APRN, C.N.P. Primary Care Provider [phone] Reason for Visit Reason Comments Med Refill Encounter Details Date Type Department Care Team Description 03/26/2019 Refill Department of Family Medicine Caden Kenny APRN, Med Refill in [facility] so C.N.P. 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 - 03/26/2019 8:46 AM CST Name of medication: metoprolol Last Refilled: 12/17/18 Additional Information: No future appt. Scheduled. Last/Next Appointment: 02/12/19 CIAN APPRENTICE DISPENSING documented in this encounter Plan of Treatment Upcoming Encounters Date Type Specialty Care Team Description 02/15/2022 Office Visit Orthopedic Surgery Madyson Rosa il, D.ONikhil [address] [place], [place] [phone] (Wo rk) documented as of this encounter Visit Diagnoses Diagnosis Palpitations documented in this encounter Additional Health Concerns Assessment Noted Time PHQ-9 Depression Total Score: 2 09/17/2018 9:08 AM CDT documented as of this encounter Care Teams Glass Carrier Relationship Specialty Start Date End Date Norma Kenny APRN, C.N.P. PCP - General 09/12/[address] [place] [phone] documented as of this encounter
--- OUTSIDE RECORDS SUMMARY | 2022-01-25 11:39 | XMS_ITS | Encounter Summary ---
:1965 Author Organization [facility] Address [address] [place] [address] Care Team Providers Name Role Phone Norma Kenny APRN C.N.P. 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 - 10/21/2018 9:11 AM CDT Spoke with patient, we are holding off on ultrasound for now. Will help patient schedule if he wishes to proceed. Telephone Encounter - Gus Brownlee - 10/20/2018 1:11 PM CDT Tried calling to schedule US, patient stated he is waiting for Moira to give him a call back. Thanks! documented in this encounter Plan of Treatment Upcoming Encounters Date Type Specialty Care Team Description 02/15/2022 Office Visit Orthopedic Surgery Madyson Rosa, D.ONikhil [address] [place], [place] [phone] (Wo rk) documented as of this encounter Visit Diagnoses Not on filedocumented in this encounter Additional Health Concerns Assessment Noted Time PHQ-9 Depression Total Score: 2 09/17/2018 9:08 AM CDT documented as of this encounter Care Teams Clinical Nursing Director Relationship Specialty Start Date End Date Norma Kenny APRN, C.N.P. PCP - General 09/12/[address] [place] [phone] documented as of this encounter
--- OUTSIDE RECORDS SUMMARY | 2022-01-25 11:39 | XMS_ITS | Encounter Summary ---
:[address] [facility] Address [address] [place] [address] Care Team Providers Name Role Phone Norma Kenny APRN C.N.P. Primary Care Provider Reason for Visit Reason Comments Pain right rib cage into back Groin Pain right side Appointment Request (Routine) - Closed Specialty Diagnoses / Procedures Referred By Contact Refer red To Contact Family Medicine Referral ID Status Reason Start Date Expiration Date Visits Requ ested Visits Authorized [id number] Closed 02/01/2019 02/01/2020 1 1 Encounter Details Date Type Department Care Team Description 02/12/2019 Office Visit Department of Family Norma Kenny Pa in Rib (Primary Dx); Medicine in Erik HARRIS, C.N.P. Hyperlipidemia; [place], [place] [address] Pain Groin; [address] [place], [place] Pain [place] [phone] Social History Tobacco Use Types Packs/Day Years [...] or relatives? How often do you attend amish or gnosticism More than 4 time s per year 09/17/2018 services? Do you belong to any clubs or organizations No 09/17/2018 such as amish groups, unions, fraternal or athletic groups, or [...] Date Recorded Male 03/25/2018 1:01 PM HOME THEATER EXPERT documented as of this encounter Last Filed Vital Signs Vital Sign Reading Time Taken Comments Blood Pressure 134/70 02/12/2019 1:24 PM HOME THEATER EXPERT Pulse 101 02/12/2019 1:24 PM HOME THEATER EXPERT Temperature 36.8 ??C (98.2 ??F) 02/12/2019 1:24 PM HOME THEATER EXPERT Respiratory Rate - - Oxygen Saturation 95% 02/12/2019 1:24 PM HOME THEATER EXPERT Inhaled Oxygen Concentration - - Weight 137 kg (302 lb 3.2 oz) 02/12/2019 1:24 PM HOME THEATER EXPERT Height - - Body Mass Index 40.93 09/17/2018 8:16 AM CDT documented in this encounter Progress Notes Norma Kenny, STEVEN, C.N.P. - 02/12/2019 1:30 PM CST SUBJECTIVE CHIEF COMPLAINT/REASON FOR VISIT Pain (right rib cage into back) and Groin Pain (right side) HISTORY OF PRESENT ILLNESS Saad Murray is a 53 y.o. male who presents for follow up of his right sided abdominal pain.He states he continues to have right upper quadrant pain. It's fairly persistent. Patient states in July he fell off a step ladder while working and fell on right side. He has been having pain on his right side since then. He also has occasional right groin pain, more so when walking. No GI symptoms. No symptoms. He has a scrotal US and Urology consult ordered for this by his previous provider but has not scheduled these. He endorses low back pain and burning at times. PROBLEM LIST: Patient Active Problem List Diagnosis ??? Hypertension Essential Primary ??? Body Mass Index 40.0 To 44.9 Adult ([facility]) ??? Hypercholesterolemia ??? Gastroesophageal Reflux Disease ??? Palpitations ??? Pain Shoulder Left ??? Pain Hip Right ??? Screening Cancer Colon CURRENT MEDICATIONS Current Outpatient Medications on File Prior to Visit Medication Sig Dispense Refill ??? famotidine (PEPCID) 10 mg tablet Take 10 mg by mouth 2 (two) times a day as needed for heartburn. ??? lisinopril-hydroCHLOROthiazide (PRINZIDE,ZESTORETIC) 20-25 mg per tablet Take 1 tablet by mouth daily. 90 tablet 3 ??? metoprolol succinate (TOPROL-XL) 25 mg 24 hr tablet Take 1 tablet (25 mg total) by mouth daily. For blood pressure. 90 tablet 0 ??? pantoprazole (PROTONIX) 40 mg EC tablet Take 1 tablet (40 mg total) by mouth as needed for heartburn. 90 tablet 3 ??? [DISCONTINUED] atorvastatin (LIPITOR) 20 mg tablet Take 1 tablet (20 mg total) by mouth at bedtime. 90 tablet 0 No current facility-administered medications on file prior to visit. ALLERGIES/CONTRAINDICATIONS No Known Allergies OBJECTIVE VITAL SIGNS BP 134/70 Pulse 101 Temp 36.8 ??C Wt (!) 137 kg SpO2 95% BMI 40.93 kg/m?? PHYSICAL EXAMINATION General: Patient is alert, oriented and appears to be in no distress. Neck is supple and without mass or adenopathy. Cardiovascular: Heart is regular rate and rhythm. There are no murmurs, gallops or rubs. Respiratory: Breathing is nonlabored. Lungs are clear to auscultation bilaterally. Extremities: There is no lower extremity edema. Abdomen: Soft and non-distended. He has exquisite bony tenderness to right ribs. No organomegaly. Spine: Appears straight, negative SLR. Some lumbar muscle tightness/tenderness. Skin: No rashes or lesion noted. Neurologic: No neurologic deficit noted. Dx Ribs Right 2 Views With Chest Posteroanterior 1 View Result Date: 02/12/2019 Narrative: EXAM: DX RIBS RIGHT 2 VIEWS WITH CHEST POSTEROANTERIOR 1 VIEW COMPARISON: Chest x-ray 11/12/2016 FINDINGS: The heart is normal in size. The lungs are clear. Additional views of the RIGHT lower ribs are normal. Impression: Negative chest and RIGHT ribs. ASSESSMENT / PLAN #1 Hyperlipidemia - atorvastatin (LIPITOR) 20 mg tablet; Take 1 tablet (20 mg total) by mouth at bedtime., Starting Fri02/12/2019, Normal #2 Pain Rib - DX Ribs Right 2 Views with Chest Posteroanterior 1 View; Future; Expected date: 02/12/2019 #3 Pain Groin He is going to proceed with scrotal ultrasound and urology consult as ordered by his previous provider. This could be radiating from his chronic low back pain as well. I advised heat, ice, stretching. He should avoid tylenol/ibuprofen overuse. Will follow up pending results. #4 Pain Right Upper Quadrant Rib Xray appears normal. Could be bruising still from trauma. Labs were all normal in August. We will proceed with abdominal ultrasound, as he is going to be scheduling scrotal ultrasound anyways. 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 - US Abdomen Complete; Future; Expected date: 02/12/2019 THEATER EXPERT documented in this encounter Plan of Treatment Upcoming Encounters Date Type Specialty Care Team Description 02/15/2022 Office Visit Orthopedic Surgery RavinriMadyson haq, D.ONikhil [address] [place] [phone] (Wo rk) documented as of this encounter Results US Abdomen Complete (02/23/2019 10:13 AM HOME THEATER EXPERT) Anatomical Region Laterality Modality Abdomen, Ultrasound RST LOS, Ultrasound ARZ LOS, Ultrasound FLA N/A Ultrasound LOS Specimen (Source) Anatomical Collection Method Collection Time Re ceived Time Location / / Volume Laterality 02/23/2019 12:47 PM HOME THEATER EXPERT Impressions 02/23/2019 12:53 PM HOME THEATER EXPERT No acute findings. Narrative 02/23/2019 12:53 PM HOME THEATER EXPERT EXAM: US ABDOMEN COMPLETE COMPARISON: None FINDINGS: [...] Norma Kenny APRN, C.N.P. IMG US PROCEDURES DX Ribs Right 2 Views with Chest Posteroanterior 1 View (02/12/2019 2:07 PM HOME THEATER EXPERT) Anatomical Region Laterality Modality Ribs, Chest, Musculoskeletal RST LOS, Musculoskeletal Right Computed Radiography ARZ LOS, Muskuloskeletal FLA LOS Specimen (Source) Anatomical Collection Method Collection Time Re ceived Time Location / / Volume Laterality 02/12/2019 2:11 PM HOME THEATER EXPERT Impressions 02/12/2019 2:12 PM HOME THEATER EXPERT Negative chest and RIGHT ribs. Narrative 02/12/2019 2:12 PM HOME THEATER EXPERT EXAM: DX RIBS RIGHT 2 VIEWS WITH [...] Norma Kenny APRN, C.N.P. IMG DIAGNOSTIC IMAGING VA OCEDURES documented in this encounter Visit Diagnoses Diagnosis Pain Rib - Primary Hyperlipidemia Pain Groin Pain Right Upper Quadrant Pain Rib Pain Rib Pain Right Upper Quadrant documented in this encounter Additional Health Concerns Assessment Noted Time PHQ-9 Depression Total Score: 2 09/17/2018 9:08 AM CDT documented as of this encounter Care Teams Helicopter Repairer Relationship Specialty Start Date End Date Norma Kenny APRN, C.N.P. PCP - General 09/12/[address] [place] [phone] documented as of this encounter
--- OUTSIDE RECORDS SUMMARY | 2022-01-25 11:39 | XMS_ITS | Encounter Summary ---
:1965 Author Organization [facility] Address [address] [place] [address] Care Team Providers Name Role Phone Norma Kenny APRN C.N.P. 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 - 05/12/2019 4:37 PM PLANER OPERATOR Pt will be keeping appointment for 05/19/2019 ER OPERATOR Telephone Encounter - Norma Kenny APRN, C.NGregg - 05/07/2019 8:46 AM PLANER OPERATOR I think he should see one of my physician colleagues sooner if they have an opening, as they may have some new insight for us in regards to his pain. That will help with follow up as well as he has been lost to follow up in the past. Thanks, TK ER OPERATOR Telephone Encounter - Jeannette Bernardo L.P.N. - 05/03/2019 5:19 PM PLANER OPERATOR Pt calls expressing concern of continued pain of the rib cage area. At rest the pain is a 2/10 with movement ect. It elevates and becomes painful. Much as he discussed with TK at his appointments prior. All testing did not indicate any issues. Pt is asking what nancy be a next step to attempt to find areason for this pain. He would like to be seen to discuss this however only same day appointments are available when you return to clinic. The next appointment that is open is May 19 at 11:00 am. I have blocked this time for pt to be seen. However if possible he would like to be seen sooner. He was offerd Dr. Boles and other providers however he prefers to stay with you as this issue has been discussed with you. Please advise. ER OPERATOR Telephone Encounter - Leanne Solis - 05/03/2019 2:10 PM CST Patient requesting to talk to Jeannette Galan Specifically -- as he is still in pain on left side and wishes to see only Norma Kenny about it. Hoping to be squeezed in sometime this week. Thank you. ER OPERATOR documented in this encounter Plan of Treatment Upcoming Encounters Date Type Specialty Care Team Description 02/15/2022 Office Visit Orthopedic Surgery Madyson Rosa, DaydayONikhil [address] [facility] [place] [phone] (Wo rk) documented as of this encounter Visit Diagnoses Not on filedocumented in this encounter Additional Health Concerns Assessment Noted Time PHQ-9 Depression Total Score: 2 09/17/2018 9:08 AM CDT documented as of this encounter Care Teams Electric Range Preparer Relationship Specialty Start Date End Date Norma Kenny APRN, C.N.P. PCP - General 09/12/[address] [facility] [place] [phone] documented as of this encounter
--- OUTSIDE RECORDS SUMMARY | 2022-01-25 11:39 | XMS_ITS | Encounter Summary ---
:1965 Author Organization [facility] Address [address] [place] [address] Care Team Providers Name Role Phone Norma Kenny APRN C.N.P. Primary Care Provider [phone] Reason for Visit Reason Comments Follow-up rib issues Encounter Details Date Type Department Care Team Description 05/19/2019 Office Visit Department of Family Norma Kenny Pain Right Upper Quadrant (Primary Dx); Medicine in [facility] STEVEN Salas C.N.P. [place], [place] [address] [place] [phone] Social History Tobacco Use Types Packs/Day Years [...] How often do you attend amish or latter-day More than 4 time s [...] at Date Recorded Male 03/25/2018 1:01 PM GLUE MIXER documented as of this encounter Last Filed Vital Signs Vital Sign Reading Time Taken Comments Blood Pressure 152/73 05/19/2019 10:54 AM GLUE MIXER Pulse 77 05/19/2019 10:54 AM GLUE MIXER Temperature 36.1 ??C (97 ??F) 05/19/2019 10:54 AM GLUE MIXER Respiratory Rate - - Oxygen Saturation 98% 05/19/2019 10:54 AM GLUE MIXER Inhaled Oxygen Concentration - - Weight 139 kg (307 lb 3.2 oz) 05/19/2019 10:54 AM GLUE MIXER Height 185.4 cm (6' 1) 05/19/2019 10:54 AM GLUE MIXER Body Mass Index 40.53 05/19/2019 10:54 AM GLUE MIXER documented in this encounter Progress Notes Norma Kenny, STEVEN, C.N.P. - 05/19/2019 11:00 AM CST SUBJECTIVE CHIEF COMPLAINT/REASON FOR VISIT Follow-up (rib issues) HISTORY OF PRESENT ILLNESS Saad Murray is a 53 y.o. male who presents for follow up of his right sided flank/rib/RUQ pain. He has been seen for this once before. He states that he continues to have pain, pretty much allthe time. It is not unbearable, he is able to work through it. 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 He denies any other symptoms such as abdominal pain, GI symptoms, Urinary symptoms. He is seeing a urologist for right groin pain as well and has follow up scheduled in May.He has otherwise been feeling well. He is hesitant for testing and follow up due to his work schedule. REVIEW OF SYSTEMS As stated above. Otherwise a complete systems review was performed and negative. PROBLEM LIST: Patient Active Problem List Diagnosis ??? Hypertension Essential Primary ??? Body Mass Index 40.0 To 44.9 Adult (HCC) ??? Hypercholesterolemia ??? Gastroesophageal Reflux Disease ??? Palpitations ??? Pain Shoulder Left ??? Pain Hip Right ??? Screening Cancer Colon CURRENT MEDICATIONS Current Outpatient Medications Medication Sig ??? atorvastatin (LIPITOR) 20 mg tablet Take 1 tablet (20 mg total) by mouth at bedtime. ??? famotidine (PEPCID) 10 mg tablet Take 10 mg by mouth 2 (two) times a day as needed for heartburn. ??? lisinopril-hydroCHLOROthiazide (PRINZIDE,ZESTORETIC) 20-25 mg per tablet Take 1 tablet by mouth daily. ??? metoprolol succinate (TOPROL-XL) 25 mg 24 hr tablet TAKE 1 TABLET(25 MG) BY MOUTH DAILY FOR BLOOD PRESSURE ??? pantoprazole (PROTONIX) 40 mg EC tablet Take 1 tablet (40 mg total) by mouth as needed for heartburn. ALLERGIES/CONTRAINDICATIONS No Known Allergies MEDICAL HISTORY Past [...] ??? Tobacco comment: Quit in 20s.--occasional cigars Substance Use Topics ??? Alcohol use: Yes Frequency: 2-3 times a week Comment: Limits to weekends; Drinks beer or mixed drinks. ??? Drug use: No Social History Social History Narrative He is . He is currently not in any relationship since his of breast cancer 2-3 years ago. Lives with his son Aram who is a senior this year. Older daughter is in 3rd year 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 Has no pets. Plans to move into [place] this year after renovation and sell current home. OBJECTIVE VITAL SIGNS BP 152/73 Pulse 77 Temp 36.1 ??C Ht 185.4 cm Wt (!) 139 kg SpO2 98% BMI 40.53 kg/m?? PHYSICAL EXAMINATION General: Patient is alert, oriented and appears to be in no distress. He is pleasant, and mildly anxious. HENT: Grossly normal. Neck is supple and without mass or adenopathy. Cardiovascular: Heart is regular rate and rhythm. There are no murmurs, gallops or rubs. Respiratory: Breathing is nonlabored. Lungs are clear to auscultation bilaterally. Extremities: There is no lower extremity edema. Abdomen: Patient exhibits some right sided flank pain, tenderness around right ribs and into RUQ abdomen. No organomegaly. Skin: No rashes or lesion noted. Neurologic: No neurologic deficit noted. Lab Results Component Value Date NA 138 05/21/2019 K 4.3 05/21/2019 CL 96 (L) 05/21/2019 HCO3 28 09/10/2018 CREATININE 0.71 (L) 05/21/2019 EGFR >90 05/21/2019 BUN 22 05/21/2019 ANIONGAP 15 05/21/2019 GLUCOSE 116 05/21/2019 CALCIUM 10.0 05/21/2019 Lab Results Component Value Date ALT 35 05/21/2019 ALT 28 09/10/2018 Lab Results Component Value Date LIPASE 17 05/21/2019 Lab Results Component Value Date WBC 6.4 05/21/2019 HGB 15.1 05/21/2019 HCT 44.5 05/21/2019 MCV 92.3 05/21/2019 PLT 201 05/21/2019 Ct Abdomen Pelvis With Iv Contrast Result Date: 05/21/2019 Narrative: EXAM: CT ABDOMEN PELVIS WITH IV CONTRAST COMPARISON: None FINDINGS: The abdomen and pelvis are scanned from the diaphragm through the perineum following administration of intravenous contrast for chest CT. The lung bases are unremarkable. In the abdomen the liver, gallbladder, and bile ducts are unremarkable. There are multiple calcified splenic granulomata with the spleen otherwise normal. The pancreas and adrenal glands are normal. The kidneys are normal in overall size and position. There is some stranding of perirenal fat bilaterally suggesting some history of renal medical disease. No nephro or ureterolithiasis or hydronephrosis is identified. There are multiple bilateral pelvic phleboliths. The partially distended bladder is unremarkable. Prostate and seminal vesicles are normal.The colon is unremarkable. The appendix is normal. Small bowel loops show no evidence of inflammatory bowel disease or obstruction. Partially distended stomach is unremarkable. There is no ascites. No retroperitoneal or pelvic lymphadenopathy is identified. The abdominal aorta and vascular structures are unremarkable. There are long fat-containing inguinal hernias bilaterally. There is no evidence ofumbilical or ventral hernia. There is scattered degenerative disc disease in the lower thoracic and lumbar spine. Osseous structures are unremarkable otherwise. Impression: 1. No evidence of appendicitis or inflammatory bowel disease or bowel obstruction. 2. Stranding of perirenal fat bilaterally consistent with history of renal medical disease. No evidence ofnephro or ureterolithiasis or hydronephrosis or pyelonephritis. 3. Small fat-containing inguinal hernias bilaterally, no evidence of ventral or umbilical hernia. ASSESSMENT / PLAN #1 Hyperlipidemia - atorvastatin (LIPITOR) 20 mg tablet; Take 1 tablet (20 mg total) by mouth at bedtime., Starting 05/19/2019, Normal #2 Pain Right Upper Quadrant - Comprehensive Metabolic Panel; Future; Expected date: 05/26/2019 - Lipase; Future; Expected date: 05/26/2019 - CBC without Differential; Future; Expected date: 05/26/2019 Twin continues to have right sided pain as well as right groin pain. He is hesitant to perform lab work or imaging but is anxious this may be something pathologic. I recommend lab work and imaging with CT scan for further evaluation, as this has persisted for him. He is going to think about this and have it done next week perhaps. I will follow up pending results. MIXER documented in this encounter Plan of Treatment Upcoming Encounters Date Type Specialty Care Team Description 02/15/2022 Office Visit Orthopedic Surgery Madyson Rosa, D.O. [address] [place], [place] [address] (Wo rk) documented as of this encounter Results CBC without Differential (05/21/2019 7:57 AM GLUE MIXER) athologist Signature Hemoglobin 15.1 13.2 - 05/21/2019 NPRG 16.6 g/dL 8:04 AM GLUE MIXER Hematocrit 44.5 38.3 - 05/21/2019 NPRG 48.6 % 8:04 AM GLUE MIXER Erythrocytes 4.82 4.35 - 05/21/2019 NPRG 5.65 8:04 AM GLUE MIXER x10(12)/L MCV 92.3 78.2 - 05/21/2019 NPRG 97.9 fL 8:04 AM GLUE MIXER RBC Distrib Width 12.5 11.8 - 05/21/2019 NPRG 14.5 % 8:04 AM GLUE MIXER Platelet Count 201 135 - 317 05/21/2019 NPRG x10(9)/L 8:04 AM GLUE MIXER Leukocytes 6.4 3.4 - 9.6 05/21/2019 NPRG x10(9)/L 8:04 AM GLUE MIXER Specimen Anatomical Collection Method Collection Time Receive d Time (Source) Location / / Volume Laterality Blood (Blood, 05/21/2019 7:57 AM 05/21/19 7:59 Venous) GLUE MIXER AM GLUE MIXER Norma Kenny APRN, C.N.P. LAB BLOOD ADD-ON Performing Organization Address City/State/ZIP Code Phon e Number [place] [address] [address] [facility] [place] [id number] Lipase (05/21/2019 7:57 AM GLUE MIXER) athologist Signature Lipase, P 17 13 - 60 U/L 05/21/2019 8:26 NPRG AM GLUE MIXER Specimen Anatomical Collection Method Collection Time Receive d Time (Source) Location / / Volume Laterality Blood (Blood, 05/21/2019 7:57 AM 05/21/19 7:59 Venous) GLUE MIXER AM GLUE MIXER Norma Kenny APRN, C.N.P. LAB BLOOD ADD-ON Performing Organization Address City/[facility]/ZIP Code Phon e Number [place] [address] [place] [address] [address] [facility] [place] [id number] (ABNORMAL) Comprehensive Metabolic Panel (05/21/2019 7:57 AM GLUE MIXER) Analysis Performed At Patho logist Time Signature Potassium, P 4.3 3.6 - 5.2 05/21/2019 NPRG mmol/L 8:26 AM GLUE MIXER Sodium, P 138 135 - 145 05/21/2019 NPRG mmol/L 8:26 AM GLUE MIXER Chloride, P 96 (L) 98 - 107 05/21/2019 NPRG mmol/L 8:26 AM GLUE MIXER Bicarbonate, P 27 22 - 29 05/21/2019 NPRG mmol/L 8:26 AM GLUE MIXER Anion Gap, P 15 7 - 15 05/21/2019 NPRG 8:26 AM GLUE MIXER BUN (Blood Urea 22 8 - 24 05/21/2019 NPRG Nitrogen), P mg/dL 8:26 AM GLUE MIXER Creatinine 0.71 (L) 0.74 - 05/21/2019 NPRG 1.35 mg/dL 8:26 AM GLUE MIXER eGFR-Black/Afri >90 >=60 05/21/2019 NPRG can [place] mL/min/BSA 8:26 AM GLUE MIXER Comment: ----ADDITIONAL INFORMATION---- Estimated GFR calculated using the 2009 CKD_EPI creatinine equation. eGFR Non-Black/ >90 >=60 mL/min/BSA 05/21/2019 8:26 AM GLUE MIXER NPRG Comment: ----ADDITIONAL INFORMATION---- Estimated GFR calculated using the 2009 CKD_EPI creatinine equation. Calcium, Total, P 10.0 8.6 - 10.0 mg/dL 05/21/2019 8:26 AM GLUE MIXER NPRG Glucose, P 116 70 - 140 mg/dL 05/21/2019 8:26 AM GLUE MIXER N PRG Protein, Total, P 8.3 (H) 6.3 - 7.9 g/dL 05/21/2019 8:26 A M GLUE MIXER NPRG Albumin, P 4.8 3.5 - 5.0 g/dL 05/21/2019 8:26 AM GLUE MIXER N PRG Aspartate Aminotransferase 34 8 - 48 U/L 05/21/2019 8 :26 AM GLUE MIXER NPRG (AST), P Alkaline Phosphatase, P 63 40 - 129 U/L 05/21/2019 8: 26 AM GLUE MIXER NPRG Alanine Aminotransferase 35 7 - 55 U/L 05/21/2019 8:2 6 AM GLUE MIXER NPRG (ALT), P Bilirubin, Total, P 0.9 <=1.2 mg/dL 05/21/2019 8:26 AM GLUE MIXER NPRG Specimen Anatomical Collection Method Collection Time Receive d Time (Source) Location / / Volume Laterality Blood (Blood, 05/21/2019 7:57 AM 05/21/19 7:59 Venous) GLUE MIXER AM GLUE MIXER Norma Kenny APRN, C.N.P. LAB BLOOD ADD-ON Performing Organization Address City/State/ZIP Code Phon e Number [facility]- [address] [place], [place] [address] [address] [place] [address] [facility] [address] documented in this encounter Visit Diagnoses Diagnosis Pain Right Upper Quadrant - Primary Hyperlipidemia documented in this encounter Additional Health Concerns Assessment Noted Time PHQ-9 Depression Total Score: 2 09/17/2018 9:08 AM CDT documented as of this encounter Care Teams Fish Fryer Relationship Specialty Start Date End Date Norma Kenny APRN, C.N.P. PCP - General 09/12/[address] [place] [phone] documented as of this encounter
--- OUTSIDE RECORDS SUMMARY | 2022-01-25 11:39 | XMS_ITS | Encounter Summary ---
:1965 Author Organization [facility] Address [address] [place] [address] Care Team Providers Name Role Phone Norma Kenny APRN, C.N.P. Primary Care Provider [phone] Reason for Visit Reason Comments Med Refill Encounter Details Date Type Department Care Team Description 10/26/2018 Refill Department of Family Medicine Caden Kenny APRN, Med Refill in [facility] so C.N.P. 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 - 10/26/2018 12:06 PM CDT Last CME 09/17/18 with [facility]O. Due for recheck lipids in 3 months. Will plan to have recheck before new rx. documented in this encounter Plan of Treatment Upcoming Encounters Date Type Specialty Care Team Description 02/15/2022 Office Visit Orthopedic Surgery Madyson Rosa, D.ONikhil [address] [place], [place] [phone] (Wo rk) documented as of this encounter Visit Diagnoses Diagnosis Hyperlipidemia documented in this encounter Additional Health Concerns Assessment Noted Time PHQ-9 Depression Total Score: 2 09/17/2018 9:08 AM CDT documented as of this encounter Care Teams Municipal Firefighter Relationship Specialty Start Date End Date Norma Kenny APRN, C.N.P. PCP - General 09/12/[address] [place] [address] documented as of this encounter
--- OUTSIDE RECORDS SUMMARY | 2022-01-25 11:40 | XMS_ITS | Encounter Summary ---
:1965 Author Organization [facility] Address [address] [place] [address] Care Team Providers Name Role Phone Efraín Norma Salas APRN C.N.P. Primary Care Provider [phone] Encounter Details Date Type Department Care Team Description 06/08/2018 Clinical Communication Department of [facility], Cole Abraham, Medicine in [facility], C.N.P.[place], [place] R.N [address] [facility], [place], [place] [address] [place] [address] [phone] Social History Tobacco Use Types Packs/Day Years Used Date Smoking Tobacco: Former Cigarettes 0 Smokeless Tobacco: Never Comments: Quit in 20s. Alcohol Use Standard Drinks/Week Comments Yes 0 [...] How often do you attend anglican or druze More than 4 time s [...] or getting things needed for daily living? 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 - 06/08/2018 12:08 PM CDT Patient is scheduled for 15 min. He tends to have more than 1 concern at visit. Please clarify with him if he has more concerns, so we can get him a longer time slot. Otherwise 15 min is fine for strictly the shoulder concern. Thanks, HAO documented in this encounter Plan of Treatment Upcoming Encounters Date Type Specialty Care Team Description 02/15/2022 Office Visit Orthopedic Surgery Madyson Rosa D.ONikhil [address] [place], [place] [phone] (Wo rk) documented as of this encounter Visit Diagnoses Not on filedocumented in this encounter Additional Health Concerns Assessment Noted Time PHQ-9 Depression Total Score: 4 07/11/2017 8:29 AM CDT documented as of this encounter Care Teams Idea Worker Relationship Specialty Start Date End Date Norma Kenny APRN, C.N.P. PCP - General 09/12/[address] [place] [phone] documented as of this encounter
--- OUTSIDE RECORDS SUMMARY | 2022-01-25 11:40 | XMS_ITS | Encounter Summary ---
:1965 Author Organization [facility] Address [address] [place] [address] Care Team Providers Name Role Phone Norma Kenny APRN, C.N.P. Primary Care Provider [phone] Reason for Referral Outpatient (Routine) - Closed Specialty Diagnoses / Procedures Referred By Contact Refer red To Contact Family Medicine Ame Beal APRN, [facility] C.N.P., R.N. [address] [facility], [facility] [address] [place] [address] Referral ID Status Reason Start Date Expiration Date Visits Requ ested Visits Authorized [id number] Closed 09/15/2018 09/15/2019 1 1 Scheduling Instructions Annual exam and to go over lab resutls Encounter Details Date Type Department Care Team Description 09/15/2018 Orders Only Department of Family Denise Cortez, R.NNikhil Medicine in [place], [place] [address] [place] [address] Social History Tobacco Use Types Packs/Day [...] or relatives? How often do you attend baptism or adventist More than 4 time s per year 09/17/2018 services? 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 [address] [place], [place] [phone] (Wo rk) Scheduled Referrals Name Type Priority Associated Diagnoses Order S [facility] Family Medicine Outpatient Referral Routine Expec tim: office visit 09/15/2018 (clinic) - Self (Approximate ), Expires: 09/15/2021 documented as of this encounter Visit Diagnoses Not on filedocumented in this encounter Additional Health Concerns Assessment Noted Time PHQ-9 Depression Total Score: 4 07/11/2017 8:29 AM CDT documented as of this encounter Care Teams Yarn Tester Relationship Specialty Start Date End Date Norma Kenny APRN, C.N.P. PCP - General 09/12/[address] [place] [address] documented as of this encounter
--- OUTSIDE RECORDS SUMMARY | 2022-01-25 11:40 | XMS_ITS | Encounter Summary ---
:1965 Author Organization [facility] Address [address] [place] [address] Care Team Providers Name Role Phone Efraín Norma Salas APRN C.N.P. 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 At this time the order has been deferred indefinitely. This order can still be scheduled at any time. If you recommend further action is necessary please communicate as needed. Thank you RMATION TECHNOLOGY MANAGER documented in this encounter Plan of Treatment Upcoming Encounters Date Type Specialty Care Team Description 02/15/2022 Office Visit Orthopedic Surgery Madyson Rosa, D.O. [address] [place], [place] [phone] (Wo rk) documented as of this encounter Visit Diagnoses Not on filedocumented in this encounter Additional Health Concerns Assessment Noted Time PHQ-9 Depression Total Score: 4 07/11/2017 8:29 AM CDT documented as of this encounter Care Teams Commercial Loan Assistant Relationship Specialty Start Date End Date Norma Kenny APRN, C.N.P. PCP - General 09/12/[address] [place] [phone] documented as of this encounter
--- OUTSIDE RECORDS SUMMARY | 2022-01-25 11:40 | XMS_ITS | Encounter Summary ---
:[address] [facility] Address [address] [place] [address] Care Team Providers Name Role Phone Norma Kenny APRN C.N.P. Primary Care Provider [phone] Encounter Details Date Type Department Care Team Description 04/30/2018 Hospital Encounter Department of Radiology, [facility], [facility], in STEVEN, C.N. P., R.N. 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 30-60 minutes prior to sexual activity. atorvastatin Take 1 tablet (20 mg 90 tablet 3 07/11/2017 (for_LIPITOR) 20 mg total) by mouth at tabletIndications: bedtime. Patient is Hyperlipidemia due to yearly labs cyclobenzaprine Take 1 tablet (5 mg 20 tablet 0 12/15/2017 09/17/2018 (FLEXERIL) 5 mg total) by mouth 3 tabletIndications: Pain (three) times a day Shoulder Left as needed for muscle spasms. lisinopril-hydroCHLOROthi Take 1 tablet by 90 tablet 0 04/0207/21/2018 azide mouth daily. (PRINZIDE,ZESTORETIC) 20-25 mg per tabletIndications: Hypertension Essential Primary metoprolol succinate Take 1 tablet (25 mg 90 tablet 0 04/3009/17/2018 (TOPROL-XL) 25 mg 24 hr total) by mouth tabletIndications: daily. Takes prn Palpitations heart palpitations pantoprazole (PROTONIX) Take 1 tablet (40 mg 30 tablet 3 09/17/2018 40 mg EC total) by mouth as tabletIndications: needed for Gastroesophageal Reflux heartburn. Disease documented as of this encounter Plan of Treatment Upcoming Encounters Date Type Specialty Care Team Description 02/15/2022 Office Visit Orthopedic Surgery Madyson Rosa D.ONikhil [address] [place], [place] [address] (Wo rk) documented as of this encounter Procedures Procedure Name Priority Date/Time Associated Comments Diagnosis DX HIP AND PELVIS RAD - Routine 04/30/2018 9:20 Pain Groin Result s for this RIGHT 2-3 VIEWS (most inpatients AM [employer] COOK procedur e are in and all the results outpatients) section. documented in this encounter Results DX Hip And Pelvis Right 2-3 Views (04/30/2018 9:20 AM [employer]AF[employer] CART COOK) Anatomical Region Laterality Modality Lower Extremity, Pelvis, Hip, Musculoskeletal RST Right Computed Radiography LOS, Musculoskeletal ARZ LOS, Muskuloskeletal FLA LOS Specimen (Source) Anatomical Collection Method Collection Time Re ceived Time Location / / Volume Laterality 04/30/2018 9:37 AM [employer] C[employer] COOK Impressions 04/30/2018 9:38 AM [employer] C[employer] COOK IMPRESSION: Negative pelvis and hips wit h attention to the right. Narrative 04/30/2018 9:38 AM [employer]AFEL CART COOK EXAM: DX HIP AND PELVIS RIGHT 2-3 VIEWS COMPARISON: None FINDINGS: There are multiple calcified p hleboliths in the pelvis bilaterally. No pelvic or hip fracture or destructive le katlyn is identified with attention to the right. Hip joint spaces are preserved an d bilaterally symmetric without significant degenerative change and sacr oiliac joints are unremarkable. Procedure Note Srinivas Victoria Jr., M.D. - 2018 EXAM: DX HIP AND PELVIS RIGHT 2-3 VIEWS COMPARISON: None FINDINGS: There are multiple calcified p hleboliths in the pelvis bilaterally. No pelvic or hip fracture or destructive le katlyn is identified with attention to the right. Hip joint spaces are preserved an d bilaterally symmetric without significant degenerative change and sacr oiliac joints are unremarkable. IMPRESSION: Negative pelvis and hips wit h attention to the right. Ame Beal APRN, C.N.P., R.N. IMG DIAGNOSTIC IMAGI NG PROCEDURES documented in this encounter Visit Diagnoses Not on filedocumented in this encounter Additional Health Concerns Assessment Noted Time PHQ-9 Depression Total Score: 4 07/11/2017 8:29 AM CDT documented as of this encounter Care Teams Acute Care Physical Therapist Relationship Specialty Start Date End Date Norma Kenny APRN, C.N.P. PCP - General 09/12/[address] [place] [phone] documented as of this encounter
--- OUTSIDE RECORDS SUMMARY | 2022-01-25 11:40 | XMS_ITS | Encounter Summary ---
:1965 Author Organization [facility] Address [address] [place] [address] Care Team Providers Name Role Phone Norma Kenny APRN, C.N.P. Primary Care Provider [phone] Reason for Visit Physical Therapy (Routine) - Canceled Specialty Diagnoses / Procedures Referred By Contact Refer red To Contact Diagnoses Pain Shoulder Left M25.512 (ICD-10-CM) - Pain Shoulder Left Ame Beal APRN, [facility] Procedures PT Ongoing treatment PMR THER PT C.N.P., R.N. [address] [facility], [facility] [address] [place] [address] Referral ID Status Reason Start Date Expiration Date Visits V isits Requested Authorized [id number] Canceled 05/04/2018 03/30/2019 99 39 Encounter Details Date Type Department Care Team Description 05/29/2018 Clinical Support Department of Physical Ame Beal APRN, C.N.P., R.N. [address] 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 - 05/29/2018 8:00 AM CST Physical Therapy Outpatient Treatment Note SUBJECTIVE Patient's Name: Saad Murray Referring Provider: Ame Beal APRN, C* Visit Diagnosis: 1. Pain Shoulder Left Reason for Referral: Left shoulder torn rotator cuff and labral tear Onset Date: 05/07/17 Payor: [facility] / Plan: [facility] [place] / Product Type: PPO / No Data Recorded Epic Visit Count: 7 Diagnostic Tests: MRI Left Shoulder IMPRESSION: Small tear of the distal supraspinatus tendon. Is difficult to determine if this is a complete or partial thickness tear. Mild biceps tendinosis. Labral tear. Ganglion cyst in the spinoglenoid notch may impinge upon the suprascapular nerve. Patient comments: Patient reports that the left shoulder has improved since last session. 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 He does note intermittent clicking into the left shoulder however has not had sharp pains with these motions. Patient has been consistent with home exercise program. He does plan to take next week off of work and then will returnto work after that. OBJECTIVE Ortho Exam ?? Range of Motion: Left Right Shoulder Flexion 0-170 AROM: 135 ?? AROM: 148 ?? Shoulder Abduction 0-140 AROM: 110 AROM: 150 ?? Shoulder Internal Rotation 0-70 AROM: T8 ?? AROM: T8 ?? Shoulder External Rotation 0-90 AROM: T2 ?? AROM: T2 ? TREATMENT Treatment today consisted of: Manual Therapy: in Supine, myofascial/mobilization performed into leftsubscapularis along lateral scapular border as well as clearing into supraspinatus. In supine, grade 3/grade 4 inferior and AP mobilizations glenohumeral joint With varying degrees of shoulder flexion and abduction. Therapeutic Exercise: UBE self paced x 6:00 with alternating directions Seated row 2.0 plates 2x15 Resisted biceps 2.5 plates X 20 reps, resisted triceps 2.5 plates X 20 reps counter wipes into flexion, clockwise, counter-clockwise 15 reps each Prone row and prone shoulder extension 15 reps of each with 1 lb weight Horizontal abduction 15 reps 0 lb Wall wipes into flexion clockwise and counter-clockwise 15 reps each within pain-free range of motion Therapy band internal and external rotation with yellow 15 reps of each Therapy band shoulder adduction and shoulder extension 15 reps each yellow band Home Exercise Program/Education: Counter wipes, prone row, prone extension, Thera-Band internal and external rotation range of motion, Thera-Band shoulder extension and adduction Pt reports good compliance with his HEP. Assessment Clinical Impression: Patient presents today with return back to improvement of active range of motion and stability of left shoulder. He does have a couple sharp pains with joint mobilization exerciseshowever able to complete full range of motion passively without pain. Patient demonstrates independence with home exercise program at this time and continues to progress towards physical therapy goals. Rehab Potential: Fair Comorbidities: Known Rotator Cuff Tear and Labral Tear Personal Factors: Occupational risk factors Clinical Presentation: Stable Examination elements: 1-2 Clinical Decision Making: Low: no complicating factors, 1-2 eval elements, stable clinical presentation Functional Goals and Timeframes: PT Goal #1: The patient able to sleep on left side without onset of left shoulder pain PT Goal #1 Date: 06/04/18 PT Goal #2: Patient to complete shoveling activities without onset of left shoulder pain PT Goal #2 Date: 06/04/18 PT Goal #3: Patient to complete overhead lifting activities to complete his work duties PT Goal #3 Date: 06/04/18 PT Goal #4: Patient to improve dash index to less than 12% PT Goal #4 Date: 06/11/18 Plan Treatment/Interventions: Therapeutic exercise, Neuromuscular re-education, Manual therapy Number of outpatient visits: 10 PT Frequency: 1-2x/week PT Duration: 4 Weeks Plan: Continue with current plan Plan for next session: Will continue to progress scapular stabilization exercises next session. Time Spent with Patient Manual Therapy (min): 10 min Therapeutic Exercise (min): 22 min Time Calculation Total Timed Units (min): 32 min Total Treatment Time (min): 32 min Suzan Quezada P.T. [employer] CONSULTANT documented in this encounter Plan of Treatment Upcoming Encounters Date Type Specialty Care Team Description 02/15/2022 Office Visit Orthopedic Surgery Madyson Rosa il, D.ONikhil [address] [place], [place] [phone] (Wo rk) documented as of this encounter Visit Diagnoses Diagnosis Pain Shoulder Left - Primary documented in this encounter Additional Health Concerns Assessment Noted Time PHQ-9 Depression Total Score: 4 07/11/2017 8:29 AM CDT documented as of this encounter Care Teams Hat Binder Relationship Specialty Start Date End Date Norma Kenny APRN, C.N.P. PCP - General 09/12/[address] [place] [address] documented as of this encounter
--- OUTSIDE RECORDS SUMMARY | 2022-01-25 11:40 | XMS_ITS | Encounter Summary ---
:1965 Author Organization [facility] Address [address] [place] [address] Care Team Providers Name Role Phone Norma Kenny APRN C.N.P. Primary Care Provider [phone] Reason for Referral Outpatient (Routine) - Closed Specialty Diagnoses / Procedures Referred By Contact Refer red To Contact Family Medicine Diagnoses Hypertension Essential Primary Ame Beal APRN, [facility] Region C.N.P., R.N. [address] [place] [address], [facility] [address] [place] [address] Referral ID Status Reason Start Date Expiration Date Visits Requ ested Visits Authorized [id number] Closed 09/17/2018 09/17/2019 1 1 Reason for Visit Reason Comments Annual Exam Fall recent fall off of ladder, h as arm pain and RUQ abd pain Outpatient (Routine) - Closed Specialty Diagnoses / Procedures Referred By Contact Refer red To Contact Family Medicine Ame Beal APRN [facility] Region C.N.P., R.N. [address] [facility], [facility] [address] [place] [id number] Referral ID Status Reason Start Date Expiration Date Visits Requ ested Visits Authorized [id number] Closed 09/15/2018 09/15/2019 1 1 Encounter Details Date Type Department Care Team Description 09/17/2018 Comprehensive Visit Department of Ame Beal Gastro esophageal Reflux Disease (Primary Dx); Family Medicine in [place], [place], Hypertens ion Essential Primary; [place], C.NJoseline., R.N. Pain Right Upper Quadrant; [place] [address], Pain Axilla; [address] [place] [address] Palpitations; [place], [place], [place] Hyperlipidemi a; [phone] Screening Cancer Colon; [phone] General Medical Examination Adult; (Work) Screening Examination Prostate Cancer Social History Tobacco Use Types Packs/Day Years [...] or relatives? How often do you attend zoroastrianism or orthodox More than 4 time s per year 09/17/2018 services? 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 - 09/17/2018 8:30 AM CDT Miralax as directed daily for a week or 2. Monitor your pain and follow up if it worsens at any point. documented in this encounter H&P Notes Ame Beal APRN, C.N.P. - 09/17/2018 8:30 AM CDT SUBJECTIVE CHIEF COMPLAINT/REASON FOR VISIT Chief Complaint Patient presents with ??? Annual Exam ??? Fall recent fall off of ladder, has arm pain and RUQ abd pain HISTORY OF PRESENT ILLNESS Saad Murray is a 52 y.o. male who presents for annual physical and medication refill. Dentist every 6 months. Eye doctor yearly. Denies urinary symptoms consistent with prostate issue. Reports the right groin nodule is unchanged and still has that right groin, medial thigh pain for which he uses ibuprofen and Tylenol daily. There is a standing order for an ultrasound and Urology consult, but he has not pursued them yet. Colonoscopy: Due for screening. Exercise: yes, Active at his job. Patient reports forgetting to take atorvastatin for the past month. He started taking it again a fewdays prior to lab draw. He also reports difficulty remembering to take at bedtime. Tries to follow alow carb diet. Does not check blood pressures at home. Denies medication side effects. He is consistent with his lisinopril-hydrochlorothiazide. Does not even have metoprolol which he uses for palpitations. He is under lots of stress now as he is moving and building a house for his mother. Requests refill of Protonix as it works longer and faster, but symptoms currently well controlled [id number] Pepcid. About a month ago patient was climbing down a 6 ft step ladder that was in sand. It shifted and he fell with all of his weight landing in the left axilla against a bracket. Initially had some numbness,now feels there is a line of tenderness there. Landed on his right side against the concrete, but denies any residual right-sided pain. About 10-14 days ago he noticed some pain to the right upper abdomen that is most noticeable when hestretches out lying flat. He only notices it when lying in bed more often than not. Does not interrupt sleep. Does not interrupt his work. Reports bowel movements are unchanged and daily. Denies red orblack stools. Denies dietary changes. REVIEW OF SYSTEMS Per HPI. All others negative at this time. CURRENT MEDICATIONS Current Outpatient Medications: ??? atorvastatin (LIPITOR) 20 mg tablet, Take 1 tablet (20 mg total) by mouth at bedtime. Patient isdue to yearly labs and annual exam., Disp: 30 tablet, Rfl: 0 ??? famotidine (PEPCID) 10 mg tablet, Take 10 mg by mouth 2 (two) times a day as needed for heartburn., Disp: , Rfl: ??? lisinopril-hydroCHLOROthiazide (PRINZIDE,ZESTORETIC) 20-25 mg per tablet, Take 1 tablet by mouthdaily. Needs appointment and labs before further refills., Disp: 90 tablet, Rfl: 0 ??? metoprolol succinate (TOPROL-XL) 25 mg 24 hr tablet, Take 1 tablet (25 mg total) by mouth daily.Takes prn heart palpitations, Disp: 90 tablet, Rfl: 0 ??? sildenafil (VIAGRA) 50 mg tablet, Take 1 tablet (50 mg total) by mouth daily as needed for erectile dysfunction. 30-60 minutes prior to sexual activity., Disp: 6 tablet, Rfl: 1 ??? cyclobenzaprine (FLEXERIL) 5 mg tablet, Take 1 tablet (5 mg total) by mouth 3 (three) times a day as needed for muscle spasms., Disp: 20 tablet, Rfl: 0 ??? pantoprazole (PROTONIX) 40 mg EC tablet, Take 1 tablet (40 mg total) by mouth as needed for heartburn. (Patient not taking: Reported on 09/17/2018 ), Disp: 30 tablet, Rfl: 3 ALLERGIES/CONTRAINDICATIONS No Known Allergies MEDICAL HISTORY Past [...] Paternal Grandfather ??? No Known Problems Sister SOCIAL HISTORY Social History Tobacco Use ??? Smoking status: Former Smoker Packs/day: 0.00 Types: Cigarettes ??? Smokeless tobacco: Never Used ??? Tobacco comment: Quit in 20s. Substance Use Topics ??? Alcohol use: Yes Frequency: 4 or more times a week Comment: Limits to weekends; Drinks beer or mixed drinks. ??? Drug use: No Social History Social History Narrative He is . He is currently not in any relationship since his of breast cancer 2-3 years ago. Lives with his son Aram who is a senior this year. Older daughter is in 3rd year 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 Has no pets. Plans to move into [place] this year after renovation and sell current home. HEALTH MAINTENANCE Health Maintenance Topic Date Due ??? Colon Cancer Screening 1965 ??? Zoster Vaccines (1 of 2) 12/13/2017 ??? Depression Screening (Annual PHQ-2) 03/31/2018 ??? Office Visit for Blood Pressure Check / Re-check 09/08/2018 ??? Creatinine Level 09/11/2019 ??? Potassium Level 09/11/2019 ??? Fasting Glucose for Diabetes Screening 09/10/2021 ??? DTaP,Tdap,and Td Vaccines (2 - Td) 05/28/2022 ??? Fasting Lipid Panel 09/11/2023 ??? Influenza Vaccine Completed OBJECTIVE VITAL SIGNS BP 146/78 (BP Location: Right arm, Patient Position: Sitting, Cuff Size: Large) Pulse 92 Temp 36.9 ??C (Temporal) Ht 183 cm Wt 133 kg SpO2 98% BMI 39.73 kg/m?? PHYSICAL EXAMINATION General: Patient is alert, oriented. In no acute distress. Skin: Warm and dry. HEENT: Head normocephalic. Conjunctivae clear. Pupils equal, round, reactive to light. Bilateral tympanic membranes pearly bond with normal cone of light. Oral mucosa pink and moist. Oropharynx withouterythema or exudate. Neck: Supple. No adenopathy. Cardiovascular: Regular rate and rhythm. No murmur or extra sound. Respiratory: Breathing is nonlabored. Lung sounds clear throughout all lobes. Abdomen: Soft. Tenderness with deep palpation to right mid abdomen. No masses. Bowel sounds present. Extremities: Radial and dorsalis pedis pulses 2+ bilaterally. No peripheral edema. Musculoskeletal: Normal gait and posture. To the left inferior upper arm superior to the axilla is aBB size nodule that is tender. Overlying skin within normal limits. ASSESSMENT / PLAN 1. Gastroesophageal Reflux Disease Stable. - pantoprazole (PROTONIX) 40 mg EC tablet; Take 1 tablet (40 mg total) by mouth as needed for heartburn. Dispense: 90 tablet; Refill: 3 2. Hypertension Essential Primary Blood pressure elevated today. Likely secondary to stress, but has been elevated since March. Willhave him start metoprolol 25 mg daily. Plan for nurse blood pressure check in 1 month for re-evaluation and medication adjustment as needed. - lisinopril-hydroCHLOROthiazide (PRINZIDE,ZESTORETIC) 20-25 mg per tablet; Take 1 tablet by mouth daily. Dispense: 90 tablet; Refill: 3 - Family Medicine nurse visit (clinic); Future 3. Pain Right Upper Quadrant Liver enzymes were normal. Suspect bowel or musculoskeletal issue. Recommended taking MiraLax daily as directed for 1-2 weeks. Continue to monitor the pain. Follow up if symptoms worsen. Colonoscopy isnot a bad idea to be sure everything is normal from that standpoint. However no symptoms concerning for colon cancer. 4. Pain Axilla The area palpated consistent with inflammation versus lymphadenopathy. Most likely healing contusion. Continue to monitor. 5. Palpitations He is to start metoprolol daily per 2. - metoprolol succinate (TOPROL-XL) 25 mg 24 hr tablet; Take 1 tablet (25 mg total) by mouth daily. For blood pressure. Dispense: 90 tablet; Refill: 0 6. Hyperlipidemia Reassured patient he can take his medication in the morning so he is more compliant. Plan for lab check in 3 months to be sure lipids are stable on this dose. Encouraged lean meat in his diet. Limit red meat. Continue active lifestyle. - atorvastatin (LIPITOR) 20 mg tablet; Take 1 tablet (20 mg total) by mouth at bedtime. Dispense: 90tablet; Refill: 0 - Lipid Panel; Future 7. Screening Cancer Colon No family history of colon cancer. - Colonoscopy Case Request: COLONOSCOPY 8. General Medical Examination Adult Recommended routine dental and eye exams. Vaccines: Up-to-date except for shingles. Shingles vaccinenot discussed at visit, but will address when notification of PSA results. See EMR for details. Follow up in 1 year or as needed prior to that. - PSA (Prostate-Specific Antigen) Screen 9. Screening Examination Prostate Cancer Discussed risks and benefits of prostate cancer screening and recommendations of expert groups. Willnotify of results and adjust treatment plan accordingly. See EMR for details. - PSA (Prostate-Specific Antigen) Screen All questions answered. Patient stated understanding and agreement with current plan. documented in this encounter Plan of Treatment Upcoming Encounters Date Type Specialty Care Team Description 02/15/2022 Office Visit Orthopedic Surgery [facility], D.O. [address] [place] [address] [phone] (Wo rk) Scheduled Referrals Name Type Priority Associated Diagnoses Order [facility] Family Medicine Outpatient Referral Routine Hypertension Expec tim: nurse visit Essential Primary 10/17/2018 (clinic) (Approximate), Expires: 09/17/2021 documented as of this encounter Procedures Procedure Name Priority Date/Time Associated Diagnosis Comme nts PROSTATE-SPECIFIC Routine 09/17/2018 9:14 AM General Medical R esults for this AG (PSA) SCRN, S CDT Examination Magdy lt procedure are in Screening the results Examination Prostate section . Cancer documented in this encounter Results (ABNORMAL) Lipid Panel (05/21/2019 7:57 AM PREPARATION SUPERVISOR CANNING) athologist Signature Cholesterol, 218 (H) mg/dL 05/21/2019 NPRG Total 8:26 AM PREPARATION SUPERVISOR CANNING Comment: ----REFERENCE VALUE---- Desirable: < 200 Borderline high: 200 - 239 High: > or = 240 Triglycerides 56 mg/dL 05/21/2019 8:26 AM PREPARATION SUPERVISOR CANNING NPR G Comment: ----REFERENCE VALUE---- Normal: <150 Borderline high: 150-199 High: 200-499 Very high: > or =500 Cholesterol, HDL 80 >=40 mg/dL 05/21/2019 8:26 AM PREPARATION SUPERVISOR CANNING NPRG Calculated LDL 127 mg/dL 05/21/2019 8:26 AM PREPARATION SUPERVISOR CANNING LABOR GANG SUPERVISOR RG Comment: ----REFERENCE VALUE---- Desirable: <100 Above Desirable: 100-129 Borderline high: 130-159 High: 160-189 Very high: > or =190 Cholesterol, Non-HDL, Calculated 138 mg/dL 020 8:26 AM PREPARATION SUPERVISOR CANNING NPRG Comment: ----REFERENCE VALUE---- Desirable: <130 Above Desirable: 130-159 Borderline high: 160-189 High: 190-219 Very high: > or =220 Specimen Anatomical Collection Method Collection Time Receive d Time (Source) Location / / Volume Laterality Blood (Blood, 05/21/2019 7:57 AM 05/21/19 7:59 Venous) PREPARATION SUPERVISOR CANNING AM PREPARATION SUPERVISOR CANNING Ame Beal APRN, C.N.P., R.N. LAB BLOOD ADD-ON Performing Organization Address City/State/ZIP Code Phon e Number [facility] [address] [place], [place] [address] [place] [address] [place] [address] [facility] [address] [place] PSA (Prostate-Specific Antigen) Screen (09/17/2018 9:14 AM CDT) athologist Signature Prostate-Specif 0.62 <=3.5 ng/mL 09/17/2018 ic Ag 1:23 PM CDT Comment: Biotin has been identified by the alexis huang as a potential interfering substance. ??Higher concentr ations of biotin may be found in multivitamins, hair/nail supple ments, and workout supplements. ??If the result does not ma tch clinical observations, repeat testing after patient refrains fr om the use of supplements for at least 12 hours. ----ADDITIONAL INFORMATION---- The testing method is an electrochemilum inescence assay manufactured by [employer] and performed on the Modular or Svetlana system . Values obtained with different assay met hods or kits may be different and cannot be used inte rchangeably. Test results cannot be interpreted as ab solute evidence for the presence or absence of malignant disease. Specimen Anatomical Collection Method Collection Time Receive d Time (Source) Location / / Volume Laterality Blood (Blood, 09/17/2018 9:14 AM 09/18/19 19 9:58 Venous) CDT AM CDT Ame Beal APRN, C.N.P., R.N. LAB BLOOD ADD-ON Performing Organization Address City/State/ZIP Code Phon e Number [facility] [place] [address] [place] [address] [facility] documented in this encounter Visit Diagnoses Diagnosis Gastroesophageal Reflux Disease - Primar y Hypertension Essential Primary Pain Right Upper Quadrant Pain Axilla Palpitations Hyperlipidemia Screening Cancer Colon General Medical Examination Adult Screening Examination Prostate Cancer documented in this encounter Additional Health Concerns Assessment Noted Time PHQ-9 Depression Total Score: 2 09/17/2018 9:08 AM CDT documented as of this encounter Care Teams Dough Cutter Relationship Specialty Start Date End Date Norma Kenny APRN, C.N.P. PCP - General 09/12/[address] [place] [phone] documented as of this encounter
--- OUTSIDE RECORDS SUMMARY | 2022-01-25 11:40 | XMS_ITS | Encounter Summary ---
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 - 09/07/2018 4:23 PM CDT Medications Needing Refill: Atorvastatin 20 mg Last Refilled: 07/11/17 for one year Last Appointment: 06/08/18 for shoulder pain Future Appointment: N/A Short supply ordered until patient can be seen for lab work and annual exam. documented in this encounter Plan of Treatment Upcoming Encounters Date Type Specialty Care Team Description 02/15/2022 Office Visit Orthopedic Surgery Madyson Rosa, D.ONikhil [address] [place], [place] [phone] (Wo rk) documented as of this encounter Visit Diagnoses Diagnosis Hyperlipidemia documented in this encounter Additional Health Concerns Assessment Noted Time PHQ-9 Depression Total Score: 4 07/11/2017 8:29 AM CDT documented as of this encounter Care Teams Guest Services Ambassador Relationship Specialty Start Date End Date Norma Kenny APRN, C.N.P. PCP - General 09/12/[address] [place] [address] documented as of this encounter
--- OUTSIDE RECORDS SUMMARY | 2022-01-25 11:40 | XMS_ITS | Encounter Summary ---
:1965 Author Organization [facility] Address [address] [place] [address] Care Team Providers Name Role Phone Norma Kenny APRN C.N.P. Primary Care Provider [phone] Reason for Referral Physical Therapy (Routine) - Closed Specialty Diagnoses / Procedures Referred By Contact Refer red To Contact Diagnoses Pain Hip Right ar Ame Beal APRN, [facility] Region Procedures PT Evaluate and treat pt C.N.P., R.N. [address] [place] [address], [facility] [address] [place] [address] Referral ID Status Reason Start Date Expiration Date Visits Requ ested Visits Authorized [id number] Closed 04/30/2018 04/30/2019 1 1 L CUTTER Physical Therapy (Routine) - Closed Specialty Diagnoses / Procedures Referred By Contact Refer red To Contact Diagnoses Pain Shoulder Left Ame Beal APRN, [facility] Region Procedures PT Evaluate and treat C.N.P., R.N. [address] [facility], [place] [address] [place] [address] Referral ID Status Reason Start Date Expiration Date Visits Requ ested Visits Authorized [id number] Closed 04/30/2018 04/30/2019 1 1 L CUTTER Encounter Details Date Type Department Care Team Description 04/30/2018 Orders Only Department of Family Ame Beal Pai n Shoulder Left (Primary Dx); [facility]NNikhilP., Pain Hip Ri ght [place], [place] R.N. [address], [place], [place] [phone] [place] [address] [phone] Social History Tobacco Use Types Packs/Day Years [...] or relatives? How often do you attend oriental orthodox or zoroastrian More than 4 time s per year 09/17/2018 services? 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 documented as of this encounter Plan of Treatment Upcoming Encounters Date Type Specialty Care Team Description 02/15/2022 Office Visit Orthopedic Surgery Madyson Rosa, D.ONikhil [address] [place] [address] [phone] (Wo rk) documented as of this encounter Visit Diagnoses Diagnosis Pain Shoulder Left - Primary Pain Hip Right documented in this encounter Additional Health Concerns Assessment Noted Time PHQ-9 Depression Total Score: 4 07/11/2017 8:29 AM CDT documented as of this encounter Care Teams Evening Sitter Relationship Specialty Start Date End Date Norma Kenny APRN, C.N.P. PCP - General 6/15/[address] [place] [phone] documented as of this encounter
--- OUTSIDE RECORDS SUMMARY | 2022-01-25 11:40 | XMS_ITS | Encounter Summary ---
:1965 Author Organization [facility] Address [address] [place] [address] Care Team Providers Name Role Phone Norma Kenny APRN C.N.P. 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 - 06/29/2018 11:12 AM CDT FYI Telephone Encounter - Elba Retana - 06/29/2018 10:24 AM CDT Three attempts have been made to contact this patient to a urology appointment. At this time the order has been deferred indefinitely. This order can still be scheduled at any time. If you recommend further action is necessary please communicate as needed. Thank you documented in this encounter Plan of Treatment Upcoming Encounters Date Type Specialty Care Team Description 02/15/2022 Office Visit Orthopedic Surgery RavinnhMadyson haq il, D.ONikhil [address] [place], [place] [phone] (Wo rk) documented as of this encounter Visit Diagnoses Not on filedocumented in this encounter Additional Health Concerns Assessment Noted Time PHQ-9 Depression Total Score: 4 07/11/2017 8:29 AM CDT documented as of this encounter Care Teams E Commerce Project Manager Relationship Specialty Start Date End Date Norma Kenny APRN, C.N.P. PCP - General 09/12/[address] [place] [phone] documented as of this encounter
--- OUTSIDE RECORDS SUMMARY | 2022-01-25 11:40 | XMS_ITS | Encounter Summary ---
:1965 Author Organization [facility] Address [address] [place] [address] Care Team Providers Name Role Phone Norma Kenny APRN, C.N.P. Primary Care Provider [phone] Reason for Visit Physical Therapy (Routine) - Canceled Specialty Diagnoses / Procedures Referred By Contact Refer red To Contact Diagnoses Pain Shoulder Left M25.512 (ICD-10-CM) - Pain Shoulder Left Ame Beal APRN, [facility] Region Procedures PT Ongoing treatment PMR THER PT C.N.P., R.N. [address] [facility] [place], [facility] [address] [place] [address] Referral ID Status Reason Start Date Expiration Date Visits V isits Requested Authorized [id number] Canceled 05/04/2018 03/30/2019 99 39 Encounter Details Date Type Department Care Team Description 05/20/2018 Clinical Support Department of Physical Ame Beal APRN, C.N.P., R.N. 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 - 05/20/2018 8:45 AM CST Physical Therapy Outpatient Treatment Note SUBJECTIVE Patient's Name: Saad Murray Referring Provider: Ame Beal APRN, C* Visit Diagnosis: 1. Pain Shoulder Left Reason for Referral: Left shoulder torn rotator cuff and labral tear Onset Date: 05/07/17 Payor: [facility] / Plan: [facility] [place] / Product Type: PPO / No Data Recorded Epic Visit Count: 4 Diagnostic Tests: MRI Left Shoulder IMPRESSION: Small tear of the distal supraspinatus tendon. Is difficult to determine if this is a complete or partial thickness tear. Mild biceps tendinosis. Labral tear. Ganglion cyst in the spinoglenoid notch may impinge upon the suprascapular nerve. Patient comments: patient reports that he has noted some improvement of symptoms and range of motionin the left shoulder however if he does a sudden movement to the side he does note sharp pain into the left posterior shoulder region. Patient questions when his appointment with Dr. Cordova was and questions if he should schedule an additional visit for potential reinjection his left shoulder. OBJECTIVE Ortho Exam ?? Range of Motion: Left Right Shoulder Flexion 0-170 AROM: 135 ?? AROM: 148 ?? Shoulder Abduction 0-140 AROM: 110 AROM: 150 ?? Shoulder Internal Rotation 0-70 AROM: T8 ?? AROM: T10 ?? Shoulder External Rotation 0-90 AROM: subocc ?? AROM: T2 ? TREATMENT Treatment today consisted of: Manual Therapy: in right side-lying, myofascial/mobilization performed into left upper trapezius, levator scapula, supraspinatus, and clearing in to the medial scapular border as well as subscapularis along lateral scapular border. In prone myofascial/mobilization into the left middle rhomboids and middle trapezius clearing along the thoracic paraspinals T1 through T5. Performed PA mobilizations of thoracic spine T1 through T10 as well as lateral mobilizations from right to left T1 through T8 with most tender areas from T3- 6. In sitting performed muscle energy technique for ERS to the left T3 through T5. In sitting performed lateral mobilizations right to left T5 through T10. Patient then returnsback to supine, muscle energy technique for bilateral rotation C2 on C3 and resisted right rotation C6 on C7. Therapeutic Exercise: UBE self paced x 6:00 [...] reps each within pain-free range of motion Sidelying external rotation no weights x 10 reps until fatigued Home Exercise Program/Education: Counter wipes, prone row, prone extension Pt reports good compliance with his HEP. Assessment Clinical Impression: Patient presenting with continued hypertonicity throughout the left scapular border and into thoracic paraspinals. With joint mobilizations into thoracic spine, he is able to increase his rotation range motion bilaterally. He also has hypertonicity into the right-sided upper cervical spine which was able to clear with muscle energy techniques. Patient progresses with his active range of motion of left shoulder able to reach C6 combined external rotation and flexion today. Rehab Potential: Fair Comorbidities: Known Rotator Cuff [...] current plan Plan for next session: Will reassess thoracic spine next session and hypertonicity into scapular borders. Will also reassess upper cervical spine next session. Time Spent with Patient Manual Therapy (min): 24 min Therapeutic Exercise (min): 16 min Time Calculation Total Timed Units (min): 40 min Total Treatment Time (min): 40 min Suzan Quezada P.T. RITY CONTROLS ASSESSOR documented in this encounter Plan of Treatment Upcoming Encounters Date Type Specialty Care Team Description 02/15/2022 Office Visit Orthopedic Surgery Madyson Rosa D.O. [address] [place], [place] [phone] (Wo rk) documented as of this encounter Visit Diagnoses Diagnosis Pain Shoulder Left - Primary documented in this encounter Additional Health Concerns Assessment Noted Time PHQ-9 Depression Total Score: 4 07/11/2017 8:29 AM CDT documented as of this encounter Care Teams Film Librarian Relationship Specialty Start Date End Date Norma Kenny APRN, C.N.P. PCP - General 09/12/[address] [place] [phone] documented as of this encounter
--- OUTSIDE RECORDS SUMMARY | 2022-01-25 11:40 | XMS_ITS | Encounter Summary ---
:1965 Author Organization [facility] Address [address] [place] [address] Care Team Providers Name Role Phone Norma Kenny APRN C.N.PNikhil Primary Care Provider [phone] Reason for Visit Physical Therapy (Routine) - Closed Specialty Diagnoses / Procedures Referred By Contact Refer red To Contact Diagnoses Pain Hip Right ar Ame Beal APRN, [facility] Region Procedures PT Evaluate and treat pt C.N.P., R.N. [address] [place] [address] [address] [place] [address] Referral ID Status Reason Start Date Expiration Date Visits Requ ested Visits Authorized [id number] Closed 04/30/2018 04/30/2019 1 1 Encounter Details Date Type Department Care Team Description 05/07/2018 Comprehensive Visit Department of Nohemi Beal i, APRN, C.N.P., R.N. 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 - 05/07/2018 9:45 AM CST Physical Therapy Outpatient Evaluation/Treatment By co-signing this note, the provider certifies the therapy being provided to this patient is reasonable and necessary for the diagnosis or treatment of this patient. SUBJECTIVE Patient's Name: Saad Naylor Leonardoedison Referring Provider: Ame Beal APRN, C* Visit Diagnosis: 1. Pain Shoulder Left 2. Pain Hip Right Reason for Referral: Left shoulder torn rotator cuff and labral tear Onset Date: 05/07/17 Payor: [facility] / Plan: [facility] [place] / Product Type: PPO / Epic Visit Count: 1 PERTINENT MEDICAL / SURGICAL HISTORY: Patient Active Problem List Diagnosis ??? Hypertension Essential Primary ??? Body Mass Index 40.0 To 44.9 Adult (HCC) ??? Hypercholesterolemia ??? Gastroesophageal Reflux Disease ??? Palpitations ??? Pain Shoulder Left ??? Pain Hip Right Past Surgical History: Procedure Laterality Date ??? REPAIR OF UMBILICAL HERNIA N/A 04/12/2016 Repair of umbilical hernia ??? VASECTOMY N/A 03/05/2005 Vasectomy Diagnostic Tests: MRI Left Shoulder: IMPRESSION: Small tear of the distal supraspinatus tendon. Is difficult to determine if this is a complete or partial thickness tear. Mild biceps tendinosis. Labral tear. Ganglion cyst in the spinoglenoid notch may impinge upon the suprascapular nerve. Saad Murray is a 52 y.o. male who presents to outpatient physical therapy for evaluation. His symptoms consist of: 1. Left shoulder weakness with a known rotator cuff tear and labral tear 2. Right hip dysfunction Overall he reports his status is improving . History of Present Illness: patient presents today with chief complaint of left shoulder dysfunction. Patient states that approximately 1 year ago he began to left shoulder pain where he presented to his primary care physician. Patient underwent x-rays and a half MRIs revealing a left shoulder rotatorcuff tear, and left labral tear. Patient reported to his orthopedic Specialty who recommended surgical intervention. The patient also went for under a cortisone injection which has substantial improvement of his left shoulder pain and range of motion and strength. The patient was having improvement of symptoms however approximately 2 weeks ago when unloading the truck, he fell on the slipped on the ice and hit his left shoulder onto the bumper of his car. The patient had difficulty moving his arm for multiple days and reported into his primary care physician again. Patient had been taking ibuprofen and Tylenol since that injury to assist with his pain management. Patient states that over the past 2 weeks he has had improvement of symptoms is not able to use the left arm. He states he takes care when performing activities such as shoveling as he did have 10/10 pain when attempting to shovel last week. He states he has been limiting any overhead lifting and activities work. 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 Patient has been taking ibuprofen all and Tylenol scheduled 2 times daily to assist with his pain management. He also has attempted ice to the left shoulder but states he feels a burning sensation with icing. Patient is active with walking and has tried 3-4 miles per day and states that the left shoulder does not hurt with this activity. 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 PHYSICAL EXAM Pain: Pain Assessment Pain Assessment: 0-10 Numeric Pain Intensity Scale Pain Score: 0 - No pain Pain Location: Shoulder Pain Orientation: Left Outcome Measures: Measures - Tools DASH Index Score: 20% Observation/Inspection: Patient sits with left shoulder in slight internal rotation position Palpation: Patient with hypertonicity throughout the left upper trapezius and along the medial scapular border isolated to T3 through T5 region. Range of Motion: Left Right Shoulder Flexion 0-170 AROM: 135 AROM: 148 Shoulder Abduction 0-140 AROM: 110 AROM: 150 Shoulder Internal Rotation 0-70 AROM: T8 AROM: T10 Shoulder External Rotation 0-90 AROM: subocc AROM: T2 Strength: 3/5 for resisted left shoulder abduction, shoulder flexion, shoulder extension, shoulder external rotation. Neuro Screen/Motor Control: Sensation intact to light touch bilateral upper extremities Ortho Exam TREATMENT Treatment today consisted of: Manual Therapy: in right side-lying, myofascial/mobilization performed into left upper trapezius, levator scapula, into middle trapezius rhomboid clearing along the medial scapular border. Therapeutic Exercise: initiated active assisted range of motion exercises including table wipes intoflexion, clockwise, counter clockwise. Initiated scapular stabilization exercises with forward bend shoulder extension and shoulder row Home Exercise Program/Education: Counter wipes, shoulder row, shoulder extension Assessment Clinical Impression: Mr. Murray presents to physical therapy with signs and symptoms consistent with left rotator cufftear and labral tear. Currently, patient presents with impairments including decreased strength, active range of motion in left shoulder resulting in the following functional deficits: Difficulty completing work duties with overhead lifting shoveling, sleeping. Patient benefit from continued physical therapy services including manual therapy techniques to assist with pain management into the left shoulder girdle. Therapeutic exercise will be use for scapular stabilization exercises, active range of motion, and active assisted range of motion for maintaining strength and mobility of the left shoulder joint. Rehab Potential: Mr. Murray has Fair potential to achieve established physical therapy goals within the time frame outlined below, provided he actively participates in his physical therapy treatmentplan and home program. Comorbidities: Known Rotator Cuff Tear and Labral [...] 12% PT Goal #4 Date: 06/11/18 Plan Mr. Murray was educated regarding evaluative findings, diagnosis, prognosis, potential risks and benefits of rehabilitation interventions. A collaborative effort was used to establish goals and planof care. He was informed of his right to make decisions regarding his care, including refusal of examination or treatment or selection of services from another provider if desired. The treatment plan may be progressed or modified based upon his response to treatment. Treatment Plan: Start of Plan of Care: 05/07/2018 Number of Visits: 10 visits PT Duration: 4 Weeks PT Frequency: 1-2x/week Treatment interventions may include: Therapeutic exercise, Neuromuscular re-education, Manual therapy Plan for next session: Will reassess initiation of manual therapy techniques into the left shoulder and continue as needed. Will continue to progress active assisted range of motion active range of motion left shoulder. Time Spent with Patient PT Evaluation (min): 25 min Manual Therapy (min): 16 min Therapeutic Exercise (min): 16 min Time Calculation Total Timed Units (min): 32 min Total Treatment Time (min): 57 min Suzan Quezada P.T. ER WORKER documented in this encounter Plan of Treatment Upcoming Encounters Date Type Specialty Care Team Description 02/15/2022 Office Visit Orthopedic Surgery Madyson Rosa D.ONikhil [address] [place], [place] [phone] (Wo rk) documented as of this encounter Visit Diagnoses Diagnosis Pain Shoulder Left - Primary Pain Hip Right documented in this encounter Additional Health Concerns Assessment Noted Time PHQ-9 Depression Total Score: 4 07/11/2017 8:29 AM CDT documented as of this encounter Care Teams Boring Inspector Relationship Specialty Start Date End Date Norma Kenny APRN, C.N.P. PCP - General 09/12/[address] [place] [address] documented as of this encounter
--- OUTSIDE RECORDS SUMMARY | 2022-01-25 11:40 | XMS_ITS | Encounter Summary ---
:1965 Author Organization [facility] Address [address] [place] [address] Care Team Providers Name Role Phone Norma Kenny APRN C.N.P. Primary Care Provider [phone] Encounter Details Date Type Department Care Team Description 09/10/2018 Hospital Encounter Department of Biggers, Ame Valdese nsion Essential Primary; Laboratory Medicine STEVEN Abraham, Hyperlip idemia in [place], C.N.P., R.N. 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 30-60 minutes prior to sexual activity. atorvastatin (LIPITOR) 20 Take 1 tablet (20 mg 30 tablet 0 09/09/2018 09/17/2018 mg tabletIndications: total) by mouth at Hyperlipidemia bedtime. Patient is due to yearly labs and annual exam. cyclobenzaprine Take 1 tablet (5 mg 20 tablet 0 12/15/2017 09/17/2018 (FLEXERIL) 5 mg total) by mouth 3 tabletIndications: Pain (three) times a day Shoulder Left as needed for muscle spasms. lisinopril-hydroCHLOROthi Take 1 tablet by 90 tablet 0 06/3009/17/2018 azide mouth daily. Needs (PRINZIDE,ZESTORETIC) appointment and labs 20-25 mg per before further tabletIndications: refills. Hypertension Essential Primary metoprolol succinate Take 1 [...] Surgery Madyson Rosa, Jarad.ONikhil [address] [place], [place] [phone] (Wo rk) documented as of this encounter Procedures Procedure Name Priority Date/Time Associated Diagnosis Comme nts LIPID PANEL, S Routine 09/10/2018 3:46 Hyperlipidemia Results for this PM CDT procedure are i n the results section. ALANINE Routine 09/10/2018 3:46 Hyperlipidemia Results fo r this AMINOTRANSFERASE (ALT), PM CDT proc edure are in S/P the results section. ASPARTATE Routine 09/10/2018 3:46 Hyperlipidemia Results fo r this AMINOTRANSFERASE (AST), PM CDT proc edure are in S/P the results section. BASIC METABOLIC PANEL, Routine 09/10/2018 3:46 Hypertension Re sults for this S/P PM CDT Essential Primary procedure are in the results section. documented in this encounter Results (ABNORMAL) Lipid Panel (09/10/2018 3:46 PM CDT) P athologist Signature Cholesterol, 260 (H) mg/dL 09/10/2018 Total 7:33 PM CDT Comment: ----REFERENCE VALUE---- Desirable: < 200 Borderline high: 200 - 239 High: > or = 240 Triglycerides 67 mg/dL 09/10/2018 7:33 PM CDT Comment: ----REFERENCE VALUE---- Normal: <150 Borderline high: 150-199 High: 200-499 Very high: > or =500 Cholesterol, HDL, S 65 >=40 mg/dL 09/10/2018 7:33 PM CDT Calculated LDL 182 (H) mg/dL 09/10/2018 7:33 PM CDT Comment: ----REFERENCE VALUE---- Desirable: <100 Above Desirable: 100-129 Borderline high: 130-159 High: 160-189 Very high: > or =190 Cholesterol, Non-HDL, Calculated 195 (H) mg/dL 019 7:33 PM CDT Comment: ----REFERENCE VALUE---- Desirable: <130 Above Desirable: 130-159 Borderline high: 160-189 High: 190-219 Very high: > or =220 Specimen Anatomical Collection Method Collection Time Receive d Time (Source) Location / / Volume Laterality Blood (Blood, 09/10/2018 3:46 PM 09/11/19 19 6:51 Venous) CDT PM CDT Ame Beal APRN, C.N.P., R.N. LAB BLOOD ADD-ON Performing Organization Address City/State/ZIP Code Phon e Number [facility] [address] [place] [address] [facility] AST (Aspartate Aminotransferase) (09/10/2018 3:46 PM CDT) [facility] Method Time Signature Aspartate 25 8 - 48 09/10/2018 Aminotransferase U/L 7:33 PM CDT (AST), S Specimen Anatomical Collection Method Collection Time Receive d Time (Source) Location / / Volume Laterality Blood (Blood, 09/10/2018 3:46 PM 09/11/19 19 6:51 Venous) CDT PM CDT Caridad Teague APRN.N.P., R.N. LAB BLOOD ADD-ON Performing Organization Address [facility] Phon e Number [address] [address] [facility] ALT (Alanine Aminotransferase) (09/10/2018 3:46 PM CDT) [facility] Method Time Signature Alanine 28 7 - 55 09/10/2018 Aminotransferase U/L 7:33 PM CDT (ALT), S Specimen Anatomical Collection Method Collection Time Receive d Time (Source) Location / / Volume Laterality Blood (Blood, 09/10/2018 3:46 PM 09/11/19 19 6:51 Venous) CDT PM CDT Caridad Teague APRN.N.P., R.N. LAB BLOOD ADD-ON Performing Organization Address [facility] Phon e Number [address] [address] [facility] (ABNORMAL) Basic Metabolic Panel (09/10/2018 3:46 PM CDT) P athologist Signature Potassium, S 4.5 3.6 - 5.2 09/10/2018 mmol/L 7:33 PM CDT Sodium, S 138 135 - 145 09/10/2018 mmol/L 7:33 PM CDT Chloride, S 97 (L) 98 - 107 09/10/2018 mmol/L 7:33 PM CDT Bicarbonate, S 28 22 - 29 09/10/2018 mmol/L 7:33 PM CDT Anion Gap 13 7 - 15 09/10/2018 7:33 PM CDT BUN (Blood Urea 18 8 - 24 09/10/2018 Nitrogen), S mg/dL 7:33 PM CDT Creatinine 0.79 0.74 - 09/10/2018 1.35 mg/dL 7:33 PM CDT eGFR-Non >90 >=60 09/10/2018 Black/ mL/min/BSA 7:33 PM CDT Indonesian Comment: ----ADDITIONAL INFORMATION---- Estimated GFR calculated using the 2009 CKD_EPI creatinine equation. eGFR-Black/ >90 >=60 mL/min/BSA 2018 7:33 PM CDT Comment: ----ADDITIONAL INFORMATION---- Estimated GFR calculated using the 2009 CKD_EPI creatinine equation. Calcium, Total, S 10.3 (H) 8.6 - 10.0 mg/dL 09/10/2018 7:33 PM CDT Glucose, S 97 70 - 140 mg/dL 09/10/2018 7:33 PM CDT Specimen Anatomical Collection Method Collection Time Receive d Time (Source) Location / / Volume Laterality Blood (Blood, 09/10/2018 3:46 PM 09/11/19 19 6:51 Venous) CDT PM CDT Ame Beal APRN, C.N.P., R.N. LAB BLOOD ADD-ON Performing Organization Address City/State/ZIP Code Phon e Number [facility] [address] [place] [address] [facility] documented in this encounter Visit Diagnoses Diagnosis Hypertension Essential Primary Hyperlipidemia documented in this encounter Additional Health Concerns Assessment Noted Time PHQ-9 Depression Total Score: 4 07/11/2017 8:29 AM CDT documented as of this encounter Care Teams Reprographics Technician Relationship Specialty Start Date End Date Norma Kenny APRN, C.N.P. PCP - General 09/12/[address] [place] [phone] documented as of this encounter
--- OUTSIDE RECORDS SUMMARY | 2022-01-25 11:40 | XMS_ITS | Encounter Summary ---
:1965 Author Organization [facility] Address [address] [place] [address] Care Team Providers Name Role Phone Norma Kenny APRN C.N.P. Primary Care Provider [phone] Reason for Visit Reason Comments Shoulder Pain left shoulder, had MRI, saw ortho, got cortisone inj, recently reinjured during a fall Encounter Details Date Type Department Care Team Description 04/30/2018 Office Visit Department of Ame Barnes, Hyp ertension Essential Primary (Primary Dx); Medicine in [facility] STEVEN C.N.PNikhil, Palpitation s; [place], [place] R.N. Pain Shoulder Left; [address], [place] Scrotum; [place], [place] Jean Marie [address] [id number] [place], [place] [phone] Social History Tobacco Use Types Packs/Day Years [...] How often do you attend taoism or catholic More than 4 time s [...] Date Recorded Male 03/25/2018 1:01 PM MANAGER INDUSTRIAL documented as of this encounter Last Filed Vital Signs Vital Sign Reading Time Taken Comments Blood Pressure 136/72 04/30/2018 8:12 AM MANAGER INDUSTRIAL Pulse 94 04/30/2018 8:12 AM MANAGER INDUSTRIAL Temperature 36.4 ??C (97.5 ??F) 04/30/2018 8:12 AM MANAGER INDUSTRIAL Respiratory Rate - - Oxygen Saturation 98% 04/30/2018 8:12 AM MANAGER INDUSTRIAL Inhaled Oxygen Concentration - - Weight 133 kg (292 lb 4.8 oz) 04/30/2018 8:12 AM MANAGER INDUSTRIAL Height - - Body Mass Index 39.16 12/15/2017 1:22 PM CDT documented in this encounter Progress Notes Ame Beal, STEVEN, C.N.P. - 04/30/2018 8:30 AM CST SUBJECTIVE CHIEF COMPLAINT: Chief Complaint Patient presents with ??? Shoulder Pain left shoulder, had MRI, saw ortho, got cortisone inj, recently reinjured during a fall HISTORY OF PRESENT ILLNESS: Saad Murray is a 52 y.o. male who presents for left shoulder pain. 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 He did not go see the specialty surgeonrecommended by Ortho as he does not have time for surgery with his current work schedule. Eight daysago he slipped on ice and fell hitting left shoulder to his truck bumper. Did not hit is head. Reports he could barely move it until today he is able to fully abduct without issue. Pain extends across the top of the shoulder from the upper back. Minimal pain at rest. Has been using ibuprofen 600 twicedaily and extra-strength Tylenol 1000 twice daily since the fall. Ice seemed to help a little. Patient also brings up right groin pain that has been ongoing at least a year. It is intermittent. Worse with driving and occasionally with walking. Extends down the medial thigh slightly into the scrotum. He has also noticed a small bump to the scrotum that has been present for about the same amount of time. It is the size of a BB. Unchanged. Reports chronic right low back pain that is now extendinginto the right anterior hip. MEDICATIONS: Current Outpatient Prescriptions: ??? atorvastatin (for_LIPITOR) 20 mg tablet, Take 1 tablet (20 mg total) by mouth at bedtime. Patient is due to yearly labs, Disp: 90 tablet, Rfl: 3 ??? cyclobenzaprine (FLEXERIL) 5 mg tablet, Take 1 tablet (5 mg total) by mouth 3 (three) times a day as needed for muscle spasms., Disp: 20 tablet, Rfl: 0 ??? lisinopril-hydroCHLOROthiazide (for_PRINZIDE,ZESTORETIC) 20-25 mg per tablet, Take 1 tablet by mouth daily., Disp: 90 tablet, Rfl: 3 ??? metoprolol succinate (for_TOPROL-XL) 25 mg 24 hr tablet, Take 1 tablet (25 mg total) by mouth daily. (Patient taking differently: Take 25 mg by mouth daily. Takes prn heart palpitations ), Disp: 90tablet, Rfl: 0 ??? pantoprazole (PROTONIX) 40 mg EC tablet, Take 1 tablet (40 mg total) by mouth as needed for heartburn., Disp: 30 tablet, Rfl: 3 ??? sildenafil (VIAGRA) 50 mg tablet, Take 1 tablet (50 mg total) by mouth daily as needed for erectile dysfunction. 30-60 minutes prior to sexual activity., Disp: 6 tablet, Rfl: 1 ??? HYDROcodone-acetaminophen (NORCO) 5-325 mg per tablet, Take 1 tablet by mouth every 6 (six) hours as needed for moderate pain or score 4-6 of 10 Indication: Acute Pain. (Patient not taking: Reported on 04/30/2018 ), Disp: 12 tablet, Rfl: 0 ALLERGIES: No Known Allergies REVIEW OF SYSTEMS: Per HPI. Requests refill of lisinopril hydrochlorothiazide and metoprolol. All others negative at this time. PROBLEM LIST: Patient Active Problem List Diagnosis ??? Hypertension ??? Body Mass Index 40.0 To 44.9 Adult (HCC) ??? Hypercholesterolemia ??? Gastroesophageal Reflux Disease SOCIAL HISTORY: Social History Substance Use Topics ??? Smoking status: Former Smoker Packs/day: 0.00 Types: Cigarettes ??? Smokeless tobacco: Never Used Comment: Quit in 20s. ??? Alcohol use Yes Comment: Limits to weekends; Drinks beer or mixed drinks. OBJECTIVE VITAL SIGNS: BP 136/72 (BP Location: Right arm, Patient Position: Sitting, Cuff Size: Large) Pulse 94 Temp 36.4 ??C (Temporal) Wt 132.6 kg SpO2 98% BMI 39.16 kg/m?? PHYSICAL EXAM: General: Patient is alert, oriented. In no acute distress. Skin: Warm and dry. HEENT: Head normocephalic. Conjunctivae clear. Extremities: Upper extremities neurovascularly intact. Musculoskeletal: Normal gait and posture. Right shoulder exam normal. Full active range of motion with left shoulder, pain to the posterior glenohumeral joint at approximately 90??. Slight tenderness to this area as well. No obvious swelling or bruising. No tenderness across the left scapular region except to the medial lower border of the scapula. While supine, passive range of motion of the right hip reveals groin pain on both internal and external rotation. Full internal rotation caused some pain to the right low back as well. Palpation of lateral hip over clothing elicited no pain. During exam he did have some right groin pain with palpation. No obvious swelling. No crepitus. Genitourinary: Moira Luke [employer] FILLER [employer] DRAINER present for exam. Approximately 2 mm firm nodule to right posterior scrotum. Difficult to locate. Nontender. Almost feels calcified. No other testicular masses or tenderness. No inguinal adenopathy bilaterally. ASSESSMENT / PLAN 1. Hypertension Essential Primary Due for labs in June. - lisinopril-hydroCHLOROthiazide (PRINZIDE,ZESTORETIC) 20-25 mg per tablet; Take 1 tablet by mouth daily. Dispense: 90 tablet; Refill: 0 2. Palpitations Due for annual exam in June. - metoprolol succinate (TOPROL-XL) 25 mg 24 hr tablet; Take 1 tablet (25 mg total) by mouth daily. Takes prn heart palpitations Dispense: 90 tablet; Refill: 0 3. Pain Shoulder Left Offered x-ray due to trauma. However symptoms are significantly improving. He would like to continueto monitor. Encouraged to consider physical therapy for the chronic MRI changes to prevent further complications while he is waiting on surgery. He will give this some consideration and let us know if he wishes to proceed. Encouraged to schedule appointment with the ortho surgeon sometime this spring so he can plan for surgery next winter adjusting work schedule accordingly. 4. Mass Scrotum Will notify of results and adjust treatment plan accordingly. See EMR for details. - US Scrotum; Future 5. Pain Groin Will notify of results and adjust treatment plan accordingly. See EMR for details. Suspect hip arthritis. - DX Hip And Pelvis Right 2-3 Views; Future - DX Hip And Pelvis Right 2-3 Views Flu vaccine up-to-date. All questions answered. Patient stated understanding and agreement with current plan. Ame Beal APRN, C.N.P. [employer]ER [employer]RIAL documented in this encounter Plan of Treatment Upcoming Encounters Date Type Specialty Care Team Description 02/15/2022 Office Visit Orthopedic Surgery Madyson Rosa, D.O. [address] [place] [address] [phone] (Wo rk) documented as of this encounter Procedures Procedure Name Priority Date/Time Associated Comments Diagnosis DX HIP AND PELVIS RAD - Routine 04/30/2018 9:20 Pain Groin Result s for this RIGHT 2-3 VIEWS (most inpatients AM MANAGER INDUSTRIAL procedur e are in and all the results outpatients) section. documented in this encounter Results US Scrotum (02/23/2019 10:22 AM MANAGER INDUSTRIAL) Anatomical Region Laterality Modality Testes, Ultrasound RST LOS, Ultrasound ARZ LOS, Ultrasound F LA N/A Ultrasound LOS Specimen (Source) Anatomical Collection Method Collection Time Re ceived Time Location / / Volume Laterality 02/23/2019 12:22 PM MANAGER INDUSTRIAL Impressions 02/23/2019 12:29 PM MANAGER INDUSTRIAL Palpable finding on exam corresponds to a tiny echogenic focus within the right epididymal body. Favor benign etiology, and consider small adenomatoid tumor or lipoma. Recommend u rology consultation and sonographic follow-up in the absence of surgical res ection. Narrative 02/23/2019 12:29 PM MANAGER INDUSTRIAL EXAM: US SCROTUM COMPARISON: None. FINDINGS: Right [...] absence of surgical res ection. Ame Beal APRN, C.N.P., R.N. IMG US PROCEDURES DX Hip And Pelvis Right 2-3 Views (04/30/2018 9:20 AM MANAGER INDUSTRIAL) Anatomical Region Laterality Modality Lower Extremity, Pelvis, Hip, Musculoskeletal RST Right Computed Radiography LOS, Musculoskeletal ARZ LOS, Muskuloskeletal FLA LOS Specimen (Source) Anatomical Collection Method Collection Time Re ceived Time Location / / Volume Laterality 04/30/2018 9:37 AM MANAGER INDUSTRIAL Impressions 04/30/2018 9:38 AM MANAGER INDUSTRIAL IMPRESSION: Negative pelvis and hips wit h attention to the right. Narrative 04/30/2018 9:38 AM MANAGER INDUSTRIAL EXAM: DX HIP AND PELVIS RIGHT 2-3 [...] Diagnoses Diagnosis Hypertension Essential Primary - Primary Palpitations Pain Shoulder Left Mass Scrotum Pain Groin Mass Scrotum documented in this encounter Additional Health Concerns Assessment Noted Time PHQ-9 Depression Total Score: 4 07/11/2017 8:29 AM CDT documented as of this encounter Care Teams Local Company Truck Driver Relationship Specialty Start Date End Date Norma Kenny APRN, C.N.P. PCP - General 09/12/[address] [place] [id number] documented as of this encounter
--- OUTSIDE RECORDS SUMMARY | 2022-01-25 11:40 | XMS_ITS | Encounter Summary ---
:1965 Author Organization [facility] Address [address] [place] [address] Care Team Providers Name Role Phone Norma Kenny APRN, C.NNikhilPNikhil Primary Care Provider [phone] Reason for Referral Outpatient (Routine) - Closed Specialty Diagnoses / Procedures Referred By Contact Refer red To Contact Diagnoses Pain Shoulder Left Navjot Mejias M.D. [facility] Procedures Large Joint Injection MO ARTHCS ASP/INJ MJR JT WO US MO TRIAMCINOLONE ACETONIDE INJ [address] [address] Referral ID Status Reason Start Date Expiration Date Visits Requ ested Visits Authorized [id number] Closed 07/01/2018 07/01/2019 1 1 utpatient (Routine) - Closed Specialty Diagnoses / Procedures Referred By Contact Refer red To Contact Diagnoses Pain Shoulder Left Navjot Mejias M.D. [facility] Procedures Large Joint Injection [address] [address] Referral ID Status Reason Start Date Expiration Date Visits Requ ested Visits Authorized [id number] Closed 07/01/2018 07/01/2019 1 1 Reason for Visit Appointment Request (Routine) - Closed Specialty Diagnoses / Procedures Referred By Contact Refer red To Contact Orthopedic Surgery Diagnoses PAR Review [facility] Region Procedures ORS EST Referral ID Status Reason Start Date Expiration Date Visits Requ ested Visits Authorized [id number] Closed 06/08/2018 06/08/2019 1 1 Encounter Details Date Type Department Care Team Description 07/01/2018 Office Visit Department of Navjot Mejias, Pain Should er Left Orthopedic Surgery in M.D. 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 - 07/01/2018 2:00 PM CDTAssociated Order(s): LARGE JOINT INJECTION Post-Procedure Diagnose(s): Pain Shoulder Left Jhj-anef-selxrwpd-elbow arthrocentesis Date/Time: 07/01/2018 2:38 PM Performed by: NAVJOT MEJIAS Authorized by: NAVJOT MEJIAS [employer] Machine Operator utilized: flight coordinator not needed Risks discussed with: patient Procedural risks discussed, including (but not limited to) the following: allergic reaction, hematoma, possible continued pain, stiffness, bleeding and bruising Consent obtained: verbal, given by: patient The benefits, risks and alternatives to the procedure and the potential need for sedation or anesthesia as well as the names, roles, and responsibilities of healthcare team members performing significant interventional tasks were discussed with the patient and/or decision maker: yes The benefits, risks and alternatives to the possible need for blood products were discussed with thepatient and/or decision maker: not addressed All relevant documentation and testing were reviewed and available. All required blood products, implants, devices and/or special equipment were made available as applicable. The pre-procedure verification was conducted, the correct site was marked if required, and the procedural time out was conducted prior to performing the procedure and confirmed in a procedural pause: yes Procedure purpose: therapeutic Appropriate hand hygiene, gown, cap, mask, protective eyewear, sterile gloves, skin preparation, sterile drape, and strict aseptic technique were utilized as applicable for the procedure: yes Skin preparation: povidone-iodine Anesthesia method: none Procedure location: shoulder - Shoulder site: L glenohumeral Site prep: patient was prepped and draped in usual sterile fashion Patient position: supine Procedure performed: injection only Needle gauge: 22 G, length: 1 1/2 in The following medications were administered at the target site(s): Local anesthetic: 8 mL lidocaine 10 mg/mL (1 %) Corticosteroid: 80 mg triamcinolone acetonide 40 mg/mL Procedure completed successfully: yes Complications: no apparent complications Post-procedure instructions: post-procedure activity instructions provided Discharge instructions: ice area as needed for comfort and follow-up with ordering provider Navjot Mejias M.D. - 07/01/2018 2:00 PM CDTAssociated Order(s): LARGE JOINT INJECTION Post-Procedure Diagnose(s): Pain Shoulder Left Yzk-qvfw-fluycofm-elbow arthrocentesis Date/Time: 07/01/2018 2:44 PM Performed by: NAVJOT MEJIAS Authorized by: NAVJOT MEJIAS [employer]fection[employer] D[employer] Machine Operator utilized: flight coordinator not needed Risks discussed with: patient Procedural risks discussed, including (but not limited to) the following: hematoma, bleeding, allergic reaction, possible continued pain and bruising Consent obtained: verbal, given by: patient The benefits, risks and alternatives to the procedure and the potential need for sedation or anesthesia as well as the names, roles, and responsibilities of healthcare team members performing significant interventional tasks were discussed with the patient and/or decision maker: yes The benefits, risks and alternatives to the possible need for blood products were discussed with thepatient and/or decision maker: not addressed All relevant documentation and testing were reviewed and available. All required blood products, implants, devices and/or special equipment were made available as applicable. The pre-procedure verification was conducted, the correct site was marked if required, and the procedural time out was conducted prior to performing the procedure and confirmed in a procedural pause: yes Procedure purpose: therapeutic Appropriate hand hygiene, gown, cap, mask, protective eyewear, sterile gloves, skin preparation, sterile drape, and strict aseptic technique were utilized as applicable for the procedure: yes Skin preparation: povidone-iodine Anesthesia method: none Procedure location: shoulder - Shoulder site: L subacromial bursa Site prep: patient was prepped and draped in usual sterile fashion Patient position: supine Needle gauge: 22 G, length: 1 1/2 in The following medications were administered at the target site(s): Local anesthetic: 8 mL lidocaine 10 mg/mL (1 %) Corticosteroid: 80 mg triamcinolone acetonide 40 mg/mL Procedure completed successfully: yes Complications: no apparent complications Post-procedure instructions: post-procedure activity instructions provided Discharge instructions: ice area as needed for comfort and follow-up with ordering provider documented in this encounter Consult Notes Navjot Mejias M.D. - 07/01/2018 2:00 PM CDT Pain reported: Site 1 Pain Score: 7, Pain Location: Shoulder, Pain Orientation: Left, (07/01/18 1351: Cyn Scott, R.N.) REASON FOR CONSULT Saad Murray is a 52 y.o. male who presents for No chief complaint on file. Primary care provider: Norma Kenny APRN, Caridad.N.P. Referred by: No ref. provider found Clinical question specified: HISTORY OF PRESENT ILLNESS Mr. Murray presents for evaluation of his left shoulder. He reports he is at work and he slipped and fell and hit his left shoulder on a bumper. He reports that he had previously been seen for spinal glenoid cyst and had an injection into the glenohumeral joint in February. He was doing well until he had this fall in March. He saw his primary care provider and the they sent him to physical therapy normal. He notes that that helped to a degree but again his pain currently bothersome at 7-10. No neck pain or paresthesias. No fever chills night sweats anterolateral. He has tried sgfl-bux-rbdbeps analgesics. His current list of health issues include: #1 Pain Shoulder Left #2 Hypertension Essential Primary #3 Body Mass Index 40.0 To 44.9 Adult (HCC) #4 Hypercholesterolemia #5 Gastroesophageal Reflux Disease #6 Palpitations #7 Pain Hip Right His surgical history is notable for: Past Surgical History: Procedure Laterality Date ??? REPAIR OF UMBILICAL HERNIA N/A 04/12/2016 Repair of umbilical hernia ??? VASECTOMY N/A 03/05/2005 Vasectomy Tobacco history is History Smoking Status ??? Former Smoker ??? Packs/day: 0.00 ??? Types: Cigarettes Smokeless Tobacco ??? Never Used Comment: Quit in 20s. . The following portions of the patient's history were reviewed and updated as appropriate: allergies,current medications, family history, medical history, social history, surgical history and problem list. REVIEW OF SYSTEMS Musculoskeletal: Positive for arthralgias and pain or stiffness in the joints. The following systems were negative: Constitutional, Skin, Eyes, ENT, CV, Respiratory, GI, , Hematologic, Neuro, Psych OBJECTIVE Vital Signs Height weight blood pressure pulse respiratory rate and O2 sats on room air are recorded. Mood is pleasant respirations are unlabored. PHYSICAL EXAM Ortho Exam Neck range of motion is reproduces symptoms. Skin about both upper extremities intact vascular examination reveals palpable pulses neurologic examination reveals intact sensation and motor lymphatic examination reveals no epitrochlear nodes. Active range of motion left shoulder is limited by 15?? in terms of for elevation, abduction, and abduction/external rotation. He has pain anterolateral with this motion. He also has some posterior pain. Cuff strength appears intact no evidence of adhesive capsulitis. Examination contralateral shoulder reveals intact skin skin intact neurovascular status full range of motion no tenderness negative lymphatic examination DIAGNOSTICS INR Date Value Ref Range Status 11/12/2016 1.0 0.9 - 1.2 INR Final Comment: Recommended INR for prophylaxis/treatment of Venous Thrombosis, Pulmonary Embolism, Myocardial Infarction, and Embolism from Atrial Fibrillation is 2.0- 3.0 (Standard Therapy) Recommended INR for Mechanical Heart Valves and recurrent Systemic Embolism is 2.5-3.5 (Intensive Therapy) Sedimentation Rate, B Date Value Ref Range Status 05/28/2012 12 0 - 22 [facility] Final IMAGING ASSESSMENT / PLAN #1 Pain Shoulder Left 1. Left shoulder traumatic impingement syndrome acute initial visit. This is related to his fall where his left shoulder on the bumper. His pain pattern today is different than his pain pattern in February where he has anterolateral pain now consistent with impingement syndrome. He did have that before. We discussed treatment options of observation anti-inflammatory medications and cortisone shots. He would like to go ahead with a cortisone shot. 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 He does have some posterior pain so this is likely somewhat symptomatic. I discussed having him get in the see 1 of my shoulder subspecialtycolleagues at his last visit and he said he had gotten around that prior to his recent fall. He is planning on doing that and is thinking about having surgery next winter when he is in his osseous regarding his work. For now I would like an injection into the glenohumeral joint to help treat the spinal glenoid cyst. Therefore the left shoulder prepped and draped in usual sterile fashion and I injected 8 cc 1% lidocaine 2 cc of Kenalog 40 milligrams/meter deep to the glenohumeral joint he tolerated well. I then re-prepped and draped in the subacromial space I injected 8 cc 1% lidocaine 2 cc of Kenalog 40 milligrams/milliliter tolerated well. He moved around range of motion was symmetric cuff strength is normal. Plans from to follow up with me pNikhilrfidelina. regarding his impingement syndrome. follow-up with us shoulder subspecialty colleagues for spinal glenoid cyst is some is possible Answers for HPI/ROS submitted by the patient on 03/25/2018 Loud snoring: Yes documented in this encounter Plan of Treatment Upcoming Encounters Date Type Specialty Care Team Description 02/15/2022 Office Visit Orthopedic Surgery Madyson Rosa Dayday kernsONikhil [address] [facility], [place] [phone] (Wo rk) documented as of this encounter Procedures Procedure Name Priority Date/Time Associated Diagnosis Comme nts MO ARTHCS ASP/INJ Routine 07/01/2018 2:00 PM Pain Shoulder Lef t Results for this MJR JT WO US CDT procedure are i n the results section. MO ARTHCS ASP/INJ Routine 07/01/2018 2:00 PM Pain Shoulder Lef t Results for this MJR JT WO US CDT procedure are i n the results section. documented in this encounter Results MO ARTHCS ASP/INJ MJR JT WO US (07/01/2018 2:00 PM CDT) Narrative [facility] - 07/01/2018 2:00 PM CDT Navjot Mejias M.D. ? 07/01/2018 ??3:16 PM Zfg-xqmq-wtgstwiu-elbow arthrocentesis Date/Time: 07/01/2018 2:44 PM Performed by: NAVJOT MEJIAS Authorized by: NAVJOT MEJIAS [employer]fection[employer] Machine Operator utilized: flight coordinator not ne eded ?? Risks discussed with: patient Procedural risks discussed, including (b ut not limited to) the following: hematoma, bleeding, allergic reaction, p ossible continued pain and bruising Consent obtained: verbal, given by: evelina ent The benefits, risks and alternatives to the procedure and the potential need for sedation or anesthesia as well as the names, roles, and responsibilities of healthcare team memb ers performing significant interventional tasks were discussed with the patient and/or decision maker: yes ?? The benefits, risks and alternatives to the possible need for blood products were discussed with the patient and/or decision maker: not addressed All relevant documentation and testing w ere reviewed and available. All required blood products, implants, devic es and/or special equipment were made available as applicable. The pre-pr ocedure verification was conducted, the correct site was marked i f required, and the procedural time out was conducted prior to performi ng the procedure and confirmed in a procedural pause: yes ?? Procedure purpose: therapeutic Appropriate hand hygiene, gown, cap, mas k, protective eyewear, sterile gloves, skin preparation, sterile drape, and strict aseptic technique were utilized as applicable for the procedure : yes ?? Skin preparation: povidone-iodine Anesthesia method: none Procedure location: shoulder - Shoulder site: L subacromial bursa Site prep: patient was prepped and drape d in usual sterile fashion ?? Patient position: supine Needle gauge: 22 G, length: 1 /2 in The following medications were administe red at the target site(s): ??Local anesthetic: 8 mL lidocaine 10 m g/mL (1 %) ??Corticosteroid: 80 mg triamcinolone a cetonide 40 mg/mL Procedure completed successfully: yes Complications: no apparent complications ?Post-procedure instructions: post-pro cedure activity instructions provided ??Discharge instructions: ice area as n eeded for comfort and follow-up with ordering provider Navjot Mejias M.D. PROCEDURE/MINOR SURGICAL ORD ERABLES Performing Organization Address City/State/ZIP Code Phon e Number MMODAL MM[facility] NA MO ARTHCS ASP/INJ MJR JT WO US (07/01/2018 2:00 PM CDT) Narrative [facility] - 07/01/2018 2:00 PM CDT Navjot Mejias M.D. ? 07/01/2018 ??3:16 PM Jku-lyvc-wewhkyil-elbow arthrocentesis Date/Time: 07/01/2018 2:38 PM Performed by: NAVJOT MEJIAS Authorized by: NAVJOT MEJIAS [employer] Machine Operator utilized: flight coordinator not ne eded ?? Risks discussed with: patient Procedural risks discussed, including (b ut not limited to) the following: allergic reaction, hematoma, possible co ntinued pain, stiffness, bleeding and bruising Consent obtained: verbal, given by: evelina ent The benefits, risks and alternatives to the procedure and the potential need for sedation or anesthesia as well as the names, roles, and responsibilities of healthcare team memb ers performing significant interventional tasks were discussed with the patient and/or decision maker: yes ?? The benefits, risks and alternatives to the possible need for blood products were discussed with the patient and/or decision maker: not addressed All relevant documentation and testing w ere reviewed and available. All required blood products, implants, devic es and/or special equipment were made available as applicable. The pre-pr ocedure verification was conducted, the correct site was marked i f required, and the procedural time out was conducted prior to performi ng the procedure and confirmed in a procedural pause: yes ?? Procedure purpose: therapeutic Appropriate hand hygiene, gown, cap, mas k, protective eyewear, sterile gloves, skin preparation, sterile drape, and strict aseptic technique were utilized as applicable for the procedure : yes ?? Skin preparation: povidone-iodine Anesthesia method: none Procedure location: shoulder - Shoulder site: L glenohumeral Site prep: patient was prepped and drape d in usual sterile fashion ?? Patient position: supine Procedure performed: injection only Needle gauge: 22 G, length: 1 1/2 in The following medications were administe red at the target site(s): ??Local anesthetic: 8 mL lidocaine 10 m g/mL (1 %) ??Corticosteroid: 80 mg triamcinolone a cetonide 40 mg/mL Procedure completed successfully: yes Complications: no apparent complications ?Post-procedure instructions: post-pro cedure activity instructions provided ??Discharge instructions: ice area as n eeded for comfort and follow-up with ordering provider Navjot Mejias M.D. PROCEDURE/MINOR SURGICAL ORD ERABLES Performing Organization Address City/State/ZIP Code Phon e Number MMODAL MM[facility] NA documented in this encounter Visit Diagnoses Diagnosis Pain Shoulder Left - Primary documented in this encounter Administered Medications Inactive Administered Medications - up to 3 most recent administrations Medication Order MAR Action Action Date Dose Rate Site lidocaine 10 mg/mL (1 %) injection 8 Given 07/01/2018 2:38 PM CD T 8 mL mL (XYLOCAINE) 8 mL, infiltration, One-Time Injection, Starting on Fri07/01/18 at 1438, For 1 dose lidocaine 10 mg/mL (1 %) injection 8 mL Given 07/01/2018 2:44 PM CDT 8 mL (XYLOCAINE) 8 mL, infiltration, One-Time Injection, Starting on Fri07/01/18 at 1444, For 1 dose triamcinolone acetonide injection 80 mg Given 07/01/2018 2:38 PM CDT 80 mg (KENALOG-40) 80 mg, intra-articular, One-Time Injection, Starting on Fri07/01/18 at 1438, For 1 dose triamcinolone acetonide injection 80 mg Given 07/01/2018 2:44 PM CDT 80 mg (KENALOG-40) 80 mg, intra-articular, One-Time Injection, Starting on Fri07/01/18 at 1444, For 1 dose documented in this encounter Additional Health Concerns Assessment Noted Time PHQ-9 Depression Total Score: 4 07/11/2017 8:29 AM CDT documented as of this encounter 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 PCP - General 09/12/[address] [place] [address] documented as of this encounter
--- OUTSIDE RECORDS SUMMARY | 2022-01-25 11:40 | XMS_ITS | Encounter Summary ---
:1965 Author Organization [facility] Address [address] [place] [address] Care Team Providers Name Role Phone Norma Kenny APRN, C.N.P. Primary Care Provider [phone] Reason for Referral Outpatient (Routine) - Closed Specialty Diagnoses / Procedures Referred By Contact Refer red To Contact Diagnoses Pain Shoulder Left Davon Mejias M.D. [facility] Procedures Large Joint Injection NV ARTHCS ASP/INJ MJR JT WO US NV TRIAMCINOLONE ACETONIDE INJ [address] [place] [address] Referral ID Status Reason Start Date Expiration Date Visits Requ ested Visits Authorized [id number] Closed 03/25/2018 03/25/2019 1 0 FIELD TECHNICIAN Reason for Visit Outpatient (Routine) - Closed Specialty Diagnoses / Procedures Referred By Contact Refer red To Contact Orthopedic Surgery Diagnoses Pain Shoulder Left Ame Beal APRN, [facility] Region C.N.P., R.N. [address] , [place] [address] [place] [address] Referral ID Status Reason Start Date Expiration Date Visits Requ ested Visits Authorized [id number] Closed 03/13/2018 03/13/2019 1 1 Encounter Details Date Type Department Care Team Description 03/25/2018 Comprehensive Visit Department of Darci Solis D.O. [address] [place] [phone] Pain Shoulder Left Orthopedic Surgery Davon Mejias M.D. [address] [place] [address] in [place], [place] [address] [place] [address] Social History Tobacco Use Types Packs/Day Years Used Date Smoking Tobacco: Former Smokeless Tobacco: Never Comments: Quit in 20s. [...] How often do you attend confucianism or restoration More than 4 time s [...] at Date Recorded Male 03/25/2018 1:01 PM IT FIELD TECHNICIAN documented as of this encounter Last Filed Vital Signs Vital Sign Reading Time Taken Comments Blood Pressure 135/86 03/25/2018 12:53 PM IT FIELD TECHNICIAN Pulse 82 03/25/2018 12:53 PM IT FIELD TECHNICIAN Temperature - - Respiratory Rate 18 03/25/2018 12:53 PM IT FIELD TECHNICIAN Oxygen Saturation - - Inhaled Oxygen Concentration - - Weight - - Height - - Body Mass Index - - documented in this encounter Procedure Notes Davon Mejias M.D. - 03/25/2018 1:00 PM CSTAssociated Order(s): LARGE JOINT INJECTION Post-Procedure Diagnose(s): Pain Shoulder Left Kzx-kczq-gtpokfqi-elbow arthrocentesis Date/Time: 03/25/2018 1:53 PM Performed by: DAVON MEJIAS Authorized by: DAVON MEJIAS Risks discussed with: patient Procedural risks discussed, including (but not limited to) the following: allergic reaction, possible continued pain, reaction to medication, hematoma, infection and stiffness Consent obtained: verbal, given by: patient The [...] for comfort and follow-up with ordering provider FIELD TECHNICIAN documented in this encounter Consult Notes Davon Mejias M.D. - 03/25/2018 1:00 PM CST Pain reported: Site 1 Pain Score: 7, Pain Location: Shoulder, Pain Orientation: Left, (03/25/18 1253: Cyn Scott, R.N.) REASON FOR CONSULT Saad Murray is a 52 y.o. male who presents for No chief complaint on file. Primary care provider: Norma Kenny APRN, C.NNikhilP. Referred by: Ame Beal APRN, C* Clinical question specified: HISTORY OF PRESENT ILLNESS Mr. Murray presents for evaluation of his left shoulder. He reports that he has posterior pain and ???deep inside pain digital anterolateral. He notes insidious onset of left 4 months. Currently is rated as 410. He had x-rays in November is left shoulder which were normal. He had an MRI scan here in February which showed a large spinal glenoid cyst. For evaluation. He has tried tfsx-him-bqwixsl analgesics in terms of Tylenol and NSAIDs. He has iced it. He has modified his activities. No neck pain no paresthesias no fever chills or night sweats. His current list of health issues include: #1 Pain Shoulder Left #2 Hypertension #3 Body Mass Index 40.0 To 44.9 Adult (HCC) #4 Hypercholesterolemia #5 Gastroesophageal Reflux Disease His surgical history is notable for: Past Surgical History: Procedure Laterality Date ??? REPAIR OF UMBILICAL HERNIA N/A 04/12/2016 Repair of umbilical hernia ??? VASECTOMY N/A 03/05/2005 Vasectomy Tobacco history is History Smoking Status ??? Former Smoker Smokeless Tobacco ??? Never Used Comment: Quit [...] , Hematologic, Neuro, Psych OBJECTIVE Vital Signs blood pressure is 135/86 and his pulse is 82. His respiration is 18. Height weight and O2 sats on room air are recorded in the intake form from today signed by me. PHYSICAL EXAM Ortho Exam Neck range of motion does reproduce her symptoms. Skin about both upper extremities intact vascular examination reveals palpable pulses neurologic examination reveals intact sensation and motor lymphatic examination reveals no epitrochlear nodes. He has got limited active range of motion. He has full p assive range of motion without evidence of adhesive capsulitis. He appears to have good cuff strength although this is somewhat difficult to test. Examination chondral shoulder reveals intact skin intact neurovascular status full range of [...] 12 0 - 22 MM[facility] Final IMAGING Three views left shoulder from November 2017 show no diagnostic abnormality. MRI scan left shoulder in February 2018 shows a large spinoglenoid cyst. Partial-thickness tear of the far anterolateral aspect of the supraspinatus tendon. There is a labral tearing superiorly and posteriorly. 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 We discussed the anatomy and pathophysiology of that. We discussed treatment options. We discussed observation anti-inflammatory medications cortisone shots physical therapy finally surgical evaluation. I told him that this is a large spinoglenoid cyst is likely causing impingement on the nerve which can lead to muscle atrophy. For this reason I think this should be evaluated by when it 1 of my shoulder subspecialty colleagues in later. I do not do posterior labral repair and decompression was spinal glenoid cyst and so I think he is best served by seeing 1 of them. 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 His has . He has got to get some Pravachol she really can't take time off from his job. I we instructed him that this could really should be evaluated by 1 of my partners and he can understand the natural history moving forward so he does not lose out on a window of opportunity to getthis under control for permanent changes have occurred. He understands. Therefore today we agreed to go with a cortisone shot and given names of my subspecialty surgeon shoulder arthroscopy colleagues. The left shoulder prepped and draped in usual sterile fashion and I injected 8 cc 1% lidocaine 2 cc of Kenalog 40 milligrams/milliliter from a posterior approach. He tolerated well. He will return to see me on a p.r.n. basis. Answers for HPI/ROS submitted by the patient on 03/25/2018 Loud snoring: Yes FIELD TECHNICIAN documented in this encounter Plan of Treatment Upcoming Encounters Date Type Specialty Care Team Description 02/15/2022 Office Visit Orthopedic Surgery Madyson Rosa Jarad kerns.ONikhil [address] [place] [phone] (Wo rk) documented as of this encounter Procedures Procedure Name Priority Date/Time Associated Diagnosis Comme nts NV ARTHCS ASP/INJ Routine 03/25/2018 1:00 PM Pain Shoulder Lef t Results for this MJR JT WO US IT FIELD TECHNICIAN procedure are i n the results section. documented in this encounter Results NV ARTHCS ASP/INJ MJR JT WO US (03/25/2018 1:00 PM IT FIELD TECHNICIAN) Narrative MMODAL - 03/25/2018 1:00 PM IT FIELD TECHNICIAN Davon Mejias M.D. ? 03/25/2018 ??2:52 PM Glv-tabq-vlqvyltp-elbow arthrocentesis Date/Time: 03/25/2018 1:53 PM Performed by: DAVON MEJIAS Authorized by: DAVON MEJIAS Risks discussed with: patient Procedural risks discussed, including (b ut not limited to) the following: allergic reaction, possible continued pa in, reaction to medication, hematoma, infection and stiffness Consent obtained: verbal, given by: evelina ent [...] for comfort and follow-up with ordering provider Davon Mejias M.D. PROCEDURE/MINOR SURGICAL ORD ERABLES Performing Organization Address City/State/ZIP Code Phon e Number MMODAL MMODAL NA documented in this encounter Visit Diagnoses Diagnosis Pain Shoulder Left documented in this encounter Administered Medications Inactive Administered Medications - up to 3 most recent administrations Medication Order MAR Action Action Date Dose Rate Site lidocaine 10 mg/mL (1 %) injection 8 Given 03/25/2018 1:53 PM CS T 8 mL mL (XYLOCAINE) 8 mL, infiltration, One-Time Injection, Starting on Fri03/25/18 at 1353, For 1 dose triamcinolone acetonide injection 80 mg Given 03/25/2018 1:53 PM IT FIELD TECHNICIAN 80 mg (KENALOG-40) 80 mg, intra-articular, One-Time Injection, Starting on Fri03/25/18 at 1353, For 1 dose documented in this encounter Additional Health Concerns Assessment Noted Time PHQ-9 Depression Total Score: 4 07/11/2017 8:29 AM CDT documented as of this encounter Care Teams Sewer System Supervisor Relationship Specialty Start Date End Date Norma Kenny, SENIOR BIOSTATISTICIAN, C.N.P. PCP - General 09/12/[address] [facility] [place] [address] documented as of this encounter
--- OUTSIDE RECORDS SUMMARY | 2022-01-25 11:40 | XMS_ITS | Encounter Summary ---
:1965 Author Organization [facility] Address [address] [place] [address] Care Team Providers Name Role Phone Norma Kenny APRN, C.N.P. Primary Care Provider [phone] Encounter Details Date Type Department Care Team Description 06/08/2018 Clinical Communication Department of Davon Cordova, Orthopedic Surgery in .[place], [facility] [address] [place] [address] [place], [place] [phone] (Work) [phone] Social History Tobacco Use Types Packs/Day Years [...] How often do you attend orthodoxy or adventist More than 4 time s [...] at Date Recorded Male 03/25/2018 1:01 PM CLINICAL PSYCHOLOGIST LICENSED documented as of this encounter Miscellaneous Notes Telephone Encounter - Cyn Scott R.N. - 06/10/2018 2:54 PM CDT Pt has not returned phone calls. Tasha is gone for next 2 weeks. Ok to see claudia or go to [facility]. Telephone Encounter - Luly Marrero - 06/09/2018 1:15 PM CDT LM for patient to call and schedule. 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 - 06/09/2018 1:00 PM CDT There are openings tomorrow, please call pt and offer any of the open times. Thanks Telephone Encounter - Maribel Watts R.N. - 06/08/2018 1:36 PM CDT Left message for pt to call back. Telephone Encounter - Lauryn Araiza - 06/08/2018 11:21 AM CDT Communication message that does NOT pertain to Medication Refill: Offered ZAHRAA: Yes No___x_ Declined ZAHRAA: Yes No__x Call Center Template: ??? May we leave a message for you on this phone? yes ??? What can I help you with today? Twin slipped on the ice and reinjured his left shoulder is there any way he can get in sooner than 07/01/18. I will send this information to the appropriate staff member who will look into your concern. Is there anything else I can help you with today? Thank you for calling [facility]. documented in this encounter Plan of Treatment Upcoming Encounters Date Type Specialty Care Team Description 02/15/2022 Office Visit Orthopedic Surgery Madyson Rosa, DaydayONikhil [address] [place], [place] [phone] (Wo rk) documented as of this encounter Visit Diagnoses Not on filedocumented in this encounter Additional Health Concerns Assessment Noted Time PHQ-9 Depression Total Score: 4 07/11/2017 8:29 AM CDT documented as of this encounter Care Teams Diploma Maker Relationship Specialty Start Date End Date Norma Kenny APRN, C.N.P. PCP - General 09/12/[address] [place] [phone] documented as of this encounter
--- OUTSIDE RECORDS SUMMARY | 2022-01-25 11:40 | XMS_ITS | Encounter Summary ---
:1965 Author Organization [facility] Address [address] [place] [address] Care Team Providers Name Role Phone Norma Kenny APRN, C.N.P. Primary Care Provider [phone] Reason for Visit Physical Therapy (Routine) - Canceled Specialty Diagnoses / Procedures Referred By Contact Refer red To Contact Diagnoses Pain Shoulder Left M25.512 (ICD-10-CM) - Pain Shoulder Left Ame Beal APRN, [facility] Region Procedures PT Ongoing treatment [facility] PT C.N.P., R.N. [address] [facility], [facility] [address] [place] [address] Referral ID Status Reason Start Date Expiration Date Visits V isits Requested Authorized [id number] Canceled 05/04/2018 03/30/2019 99 39 Encounter Details Date Type Department Care Team Description 06/03/2018 Clinical Support Department of Physical Ame Beal APRN, C.N.P., R.N. [address] [facility], [facility] [address] [place], [place] [address] Pain Shoulder Left Young and Suzan Quezada, PNikhilTNikhil [address] [place] [phone] (Primary Dx) Rehabilitation in [place], [place] [address] [place] [address] Social History Tobacco Use Types Packs/Day Years [...] How often do you attend hinduism or yazidism More than 4 time s [...] at Date Recorded Male 03/25/2018 1:01 PM DOCTOR OF VETERINARY MEDICINE documented as of this encounter Progress Notes Suzan Quezada, PBhanu. - 06/03/2018 8:00 AM CST Physical Therapy Outpatient Treatment Note SUBJECTIVE Patient's Name: Saad Murray Referring Provider: Ame Beal APRN, C* Visit Diagnosis: 1. Pain Shoulder Left Reason for Referral: Left shoulder torn rotator cuff and labral tear Onset Date: 05/07/17 Payor: [facility] / Plan: [facility] [place] / Product Type: PPO / No Data Recorded Epic Visit Count: 8 Diagnostic Tests: MRI Left Shoulder IMPRESSION: Small tear of the distal supraspinatus tendon. Is difficult to determine if this is a complete or partial thickness tear. Mild biceps tendinosis. Labral tear. Ganglion cyst in the spinoglenoid notch may impinge upon the suprascapular nerve. Patient comments: Patient continues to note improvement of left shoulder dysfunction. He does still have intermittent soreness upon palpation into the posterior shoulder. He continues to have difficulty with overhead lifting activities when he gets approx 110 deg of flexion/scaption however feels he is improved since onset of PT sessions. Pt questions if he should follow up with orthopedic referring physician due to the continued discomfort OBJECTIVE Ortho Exam ?? Range of Motion: Left Right Shoulder Flexion 0-170 AROM: 148 ?? AROM: 148 ?? Shoulder Abduction 0-140 AROM: 135 AROM: 150 ?? Shoulder Internal Rotation 0-70 AROM: T8 ?? AROM: T8 ?? Shoulder External Rotation 0-90 AROM: T2 ?? AROM: T2 ? TREATMENT Treatment today consisted of: Therapeutic Exercise: UBE self paced x 6:00 with alternating directions Seated row 3.0 plates 2x15 Resisted biceps 3.0 plates X 20 reps, resisted triceps 3.0 plates X 20 reps Prone row and prone shoulder extension 15 reps of each with 3 lb weight Horizontal abduction 15 reps 3 lb Wall wipes into flexion clockwise and counter-clockwise 15 reps each within pain-free range of motion Therapy band internal and external rotation with red 15 reps of each Therapy band shoulder adduction and shoulder extension 15 reps each red band Home Exercise Program/Education: Counter wipes, prone row, prone extension, Thera-Band internal and external rotation range of motion, Thera-Band shoulder extension and adduction Pt reports good compliance with his HEP. Assessment Clinical Impression: Pt present with equal AROM of bilateral upper extremities today however does have some soreness and stiffness with the AROM of left upper extremity. He is able to advance his strengthening and stabilization exercises by increasing resistance to red theraband and 3 lb weight. Pt demonstrates independence with home exercise program. Encouraged patient to schedule follow up visit with orthopedic specialty in 3 weeks time in order for follow up visit after her returns to work. Pt has met all PT goals at this time and will be discharged at this time. Rehab Potential: Fair Comorbidities: Known Rotator Cuff [...] Frequency: 1-2x/week PT Duration: 4 Weeks Plan: Pt discharged from PT at this time. Time Spent with Patient Therapeutic Exercise (min): 35 min Time Calculation Total Timed Units (min): 35 min Total Treatment Time (min): 35 min Suzan Quezada P.T. OR OF VETERINARY MEDICINE documented in this encounter Plan of Treatment Upcoming Encounters Date Type Specialty Care Team Description 02/15/2022 Office Visit Orthopedic Surgery Madyson Rosa, D.ONikhil [address] [place], [place] [phone] (Wo rk) documented as of this encounter Visit Diagnoses Diagnosis Pain Shoulder Left - Primary documented in this encounter Additional Health Concerns Assessment Noted Time PHQ-9 Depression Total Score: 4 07/11/2017 8:29 AM CDT documented as of this encounter Care Teams Buckler And Lacer Relationship Specialty Start Date End Date Norma Kenny, STEVEN, C.N.P. PCP - General 09/12/[address] [place] [phone] documented as of this encounter
--- OUTSIDE RECORDS SUMMARY | 2022-01-25 11:40 | XMS_ITS | Encounter Summary ---
:1965 Author Organization [facility] Address [address] [place] [address] Care Team Providers Name Role Phone Norma Kenny APRN C.N.P. Primary Care Provider [phone] Reason for Referral Outpatient (Routine) - Closed Specialty Diagnoses / Procedures Referred By Contact Refer red To Contact Urology Diagnoses Pain Groin Pain Scrotum [facility] C.N.P[facility] R.N. [address] [facility], [facility] [address] [place] [address] Referral ID Status Reason Start Date Expiration Date Visits Requ ested Visits Authorized [id number] Closed 06/08/2018 06/08/2019 1 1 Reason for Visit Reason Comments Shoulder Pain follow up Appointment Request (Routine) - Closed Specialty Diagnoses / Procedures Referred By Contact Refer red To Contact Family Medicine Referral ID Status Reason Start Date Expiration Date Visits Requ ested Visits Authorized [id number] Closed 06/08/2018 06/08/2019 1 1 Encounter Details Date Type Department Care Team Description 06/08/2018 Office Visit Department of Family Ame Beal Pai n Shoulder Left (Primary Dx); Medicine in [facility] STEVEN C.N.P., Pain Groin; [place], [place] R.N. 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 - 06/08/2018 1:45 PM CDT SUBJECTIVE CHIEF COMPLAINT: Chief Complaint Patient presents with ??? Shoulder Pain follow up HISTORY OF PRESENT ILLNESS: Saad Murray is a 52 y.o. male who presents for recurrent left shoulder pain. It is better after 5 weeks of physical therapy and injection March 25. He will be due for next injection afterJune 23. Has appointment with Dr. Cordova beginning of June, but wonders about trying another provider to get the shot sooner. 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 He is still doing physical therapy at home. Pain is still in that left posterior shoulder region. Also brings up right grain pain. X-ray was negative for hip pathology. He did not obtain scrotal ultrasound. Pain extends throughout the scrotum and right groin. Have not found abnormality except for the very small nodule to the posterior scrotum. Wonders about further options. MEDICATIONS: Current Outpatient Prescriptions: ??? atorvastatin (for_LIPITOR) 20 mg tablet, Take 1 tablet (20 mg total) by mouth at bedtime. Patient is due to yearly labs, Disp: 90 tablet, Rfl: 3 ??? cyclobenzaprine (FLEXERIL) 5 mg tablet, Take 1 tablet (5 mg total) by mouth 3 (three) times a day as needed for muscle spasms., Disp: 20 tablet, Rfl: 0 ??? lisinopril-hydroCHLOROthiazide (PRINZIDE,ZESTORETIC) 20-25 mg per tablet, Take 1 tablet by mouthdaily., Disp: 90 tablet, Rfl: 0 ??? metoprolol succinate (TOPROL-XL) 25 mg 24 hr tablet, Take 1 tablet (25 mg total) by mouth daily.Takes prn heart palpitations, Disp: 90 tablet, Rfl: 0 ??? pantoprazole (PROTONIX) 40 mg EC tablet, Take 1 tablet (40 mg total) by mouth as needed for heartburn., Disp: 30 tablet, Rfl: 3 ??? sildenafil (VIAGRA) 50 mg tablet, Take 1 tablet (50 mg total) by mouth daily as needed for erectile dysfunction. 30-60 minutes prior to sexual activity., Disp: 6 tablet, Rfl: 1 ALLERGIES: No Known Allergies REVIEW OF SYSTEMS: Per HPI. All others negative at this time. PROBLEM LIST: Patient Active Problem List Diagnosis ??? Hypertension Essential Primary ??? Body Mass Index 40.0 To 44.9 Adult ([facility]) ??? Hypercholesterolemia ??? Gastroesophageal Reflux Disease ??? Palpitations ??? Pain Shoulder Left ??? Pain Hip Right SOCIAL HISTORY: Social History Substance Use Topics ??? Smoking status: Former Smoker Packs/day: 0.00 Types: Cigarettes ??? Smokeless tobacco: Never Used Comment: Quit in 20s. ??? Alcohol use Yes Comment: Limits to weekends; Drinks beer or mixed drinks. OBJECTIVE VITAL SIGNS: BP 146/76 (BP Location: Right arm, Patient Position: Sitting, Cuff Size: Large) Pulse 94 Temp 36.1 ??C (Temporal) Wt (!) 136.3 kg SpO2 98% BMI 40.26 kg/m?? PHYSICAL EXAM: General: Patient is alert, oriented. In no acute distress. Skin: Warm and dry. HEENT: Head normocephalic. Conjunctivae clear. Musculoskeletal: Normal gait and posture. Full active range of motion of bilateral shoulders. Left shoulder range of motion is slightly slower. Tenderness along the upper medial scapular border as it was before with spasm noted at this site. Overlying skin within normal limits. ASSESSMENT / PLAN 1. Pain Shoulder Left Continue home physical therapy. Encouraged patient that would keep appointment with current orthopedist as I do not believe a week will make much difference waiting for the cortisone shot. 2. Pain Groin He is obviously concerned about this as he brings it up at multiple visits. Suggested he could try some physical therapy to see if it is soft tissue, but he opted to see Urology for further evaluation and recommendations. Thank you for your assistance with this patient. - Urology - General - lower urinary symptoms consult (clinic); Future 3. Pain Scrotum See plan for 2. - Urology - General - lower urinary symptoms consult (clinic); Future Flu vaccine up-to-date. Blood pressure elevated at visit today likely due to patient's stress level. He is due for annual visit in June. Has been mildly elevated at last visits due to pain. Will re-evaluate in June. All questions answered. Patient stated understanding and agreement with current plan. Ame Beal APRN, C.N.P. documented in this encounter Plan of Treatment Upcoming Encounters Date Type Specialty Care Team Description 02/15/2022 Office Visit Orthopedic Surgery Madyson Rosa D.ONikhil [address] [place], [place] [phone] (Wo rk) Scheduled Referrals Name Type Priority Associated Diagnoses Order S cheduconstantin Urology - General Outpatient Referral Routine Pain Groin Expected: - lower urinary Pain Scrotum 06/08/2018 symptoms consult (Approximat e), (clinic) Expires: 06/08/2021 documented as of this encounter Visit Diagnoses Diagnosis Pain Shoulder Left - Primary Pain Groin Pain Scrotum documented in this encounter Additional Health Concerns Assessment Noted Time PHQ-9 Depression Total Score: 4 07/11/2017 8:29 AM CDT documented as of this encounter Care Teams Auger Machine Offbearer Relationship Specialty Start Date End Date Norma Kenny, SLAT BASKET MAKER, C.N.P. PCP - General 09/12/[address] [place] [phone] documented as of this encounter
--- OUTSIDE RECORDS SUMMARY | 2022-01-25 11:40 | XMS_ITS | Encounter Summary ---
:1965 Author Organization [facility] Address [address] [place] [address] Care Team Providers Name Role Phone Norma Kenny APRN, C.N.P. Primary Care Provider [phone] Reason for Visit Physical Therapy (Routine) - Canceled Specialty Diagnoses / Procedures Referred By Contact Refer red To Contact Diagnoses Pain Shoulder Left M25.512 (ICD-10-CM) - Pain Shoulder Left Ame Beal APRN, [facility] Region Procedures PT Ongoing treatment PMR THER PT C.N.P., R.N. [address] [facility], [facility] [address] [place] [address] Referral ID Status Reason Start Date Expiration Date Visits V isits Requested Authorized [id number] Canceled 05/04/2018 03/30/2019 99 39 Encounter Details Date Type Department Care Team Description 05/25/2018 Clinical Support Department of Physical Ame Beal APRN, C.N.P., R.N. 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 - 05/25/2018 8:00 AM CST Physical Therapy Outpatient Treatment Note SUBJECTIVE Patient's Name: Saad Murray Referring Provider: Ame Beal APRN, C* Visit Diagnosis: 1. Pain Shoulder Left Reason for Referral: Left shoulder torn rotator cuff and labral tear Onset Date: 05/07/17 Payor: [facility] / Plan: [facility] [place] / Product Type: PPO / No Data Recorded Epic Visit Count: 6 Diagnostic Tests: MRI Left Shoulder IMPRESSION: Small tear of the distal supraspinatus tendon. Is difficult to determine if this is a complete or partial thickness tear. Mild biceps tendinosis. Labral tear. Ganglion cyst in the spinoglenoid notch may impinge upon the suprascapular nerve. Patient comments: patient states that yesterday he did have increased shoulder soreness as well as low soreness. He was unable to complete his home exercise program at this time due to general fatigue and aching into the shoulder region. OBJECTIVE Ortho Exam ?? Range of Motion: Left Right Shoulder Flexion 0-170 AROM: 135 ?? AROM: 148 ?? Shoulder Abduction 0-140 AROM: 110 AROM: 150 ?? Shoulder Internal Rotation 0-70 AROM: T8 ?? AROM: T8 ?? Shoulder External Rotation 0-90 AROM: T2 ?? AROM: T2 ? TREATMENT Treatment today consisted of: Manual Therapy: in right side-lying, myofascial/mobilization performed into leftsubscapularis along lateral scapular border. In supine, grade 3/grade 4 inferior and AP mobilizations glenohumeral joint 3?? of shoulder flexion and abduction. Therapeutic Exercise: [...] with his HEP. Assessment Clinical Impression: Patient does have hypertonicity into subscapularis musculature. He is able to complete internal and external rotation to with resistant Band as well as shoulder adduction and extension without onset of pain however does note shoulder fatigues with therapeutic exercise. Rehab Potential: Fair Comorbidities: Known Rotator Cuff [...] to progress scapular stabilization exercises next session. Patient may schedule follow-up visit with Dr. Cordova for next week. Time Spent with Patient Manual Therapy (min): 10 min Therapeutic Exercise (min): 20 min Time Calculation Total Timed Units (min): 30 min Total Treatment Time (min): 30 min Suzan Quezada P.T. LAR ALARM INSPECTOR documented in this encounter Plan of Treatment Upcoming Encounters Date Type Specialty Care Team Description 02/15/2022 Office Visit Orthopedic Surgery RavinalMadyson haq, DaydayONikhil [address] [place], [place] [phone] (Wo rk) documented as of this encounter Visit Diagnoses Diagnosis Pain Shoulder Left - Primary documented in this encounter Additional Health Concerns Assessment Noted Time PHQ-9 Depression Total Score: 4 07/11/2017 8:29 AM CDT documented as of this encounter Care Teams Button Bradder Relationship Specialty Start Date End Date Norma Kenny APRN, C.N.P. PCP - General 09/12/[address] [place] [phone] documented as of this encounter
--- OUTSIDE RECORDS SUMMARY | 2022-01-25 11:40 | XMS_ITS | Encounter Summary ---
:1965 Author Organization [facility] Address [address] [place] [address] Care Team Providers Name Role Phone Norma Kenny APRN, C.N.P. Primary Care Provider [phone] Reason for Visit Physical Therapy (Routine) - Canceled Specialty Diagnoses / Procedures Referred By Contact Refer red To Contact Diagnoses Pain Shoulder Left M25.512 (ICD-10-CM) - Pain Shoulder Left Ame Beal APRN, [facility] Region Procedures PT Ongoing treatment PMR THER PT C.N.P., R.N. [address] [facility], [facility] [address] [place] [address] Referral ID Status Reason Start Date Expiration Date Visits V isits Requested Authorized [id number] Canceled 05/04/2018 03/30/2019 99 39 Encounter Details Date Type Department Care Team Description 05/14/2018 Clinical Support Department of Physical Ame Beal APRN, C.N.P., R.N. 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 - 05/14/2018 8:45 AM CST Physical Therapy Outpatient Treatment Note SUBJECTIVE Patient's Name: Saad Murray Referring Provider: Ame Beal APRN, C* Visit Diagnosis: 1. Pain Shoulder Left Reason for Referral: Left shoulder torn rotator cuff and labral tear Onset Date: 05/07/17 Payor: [facility] / Plan: [facility] [place] / Product Type: PPO / No Data Recorded Epic Visit Count: 3 Diagnostic Tests: MRI Left Shoulder IMPRESSION: Small tear of the distal supraspinatus tendon. Is difficult to determine if this is a complete or partial thickness tear. Mild biceps tendinosis. Labral tear. Ganglion cyst in the spinoglenoid notch may impinge upon the suprascapular nerve. Patient comments: patient reports that following last visit he finds he is able to complete all counter height activity with minimal dysfunction. He notes some soreness into the left anterior shoulder with any motions into the abduction push position or any overhead activities. OBJECTIVE Ortho Exam ?? Range of Motion: [...] as well as subscapularis along lateral scapular border Therapeutic Exercise: UBE self paced x 6:00 with alternating directions Seated row 1.5 plates 2x15 counter wipes into flexion, clockwise, counter-clockwise 15 reps each Prone row and prone shoulder extension 15 reps of each with 1 lb weight Wall wipes into flexion clockwise and counter-clockwise 15 reps each within pain-free range of motion Sidelying external rotation no weights x 10 reps until fatigued Home Exercise Program/Education: Counter wipes, prone row, prone extension Pt reports good compliance with his HEP. Assessment Clinical Impression: Patient continues to have hypertonicity into the medial scapular border and on the levator scapula insertion. We also found hypertonicity into the subscapularis musculature. Patient notes at end session today. With performance of wall wipes activities, patient with increased rangeof motion in a pain-free level compared to last session. Also is able to initiate side-lying shoulder external rotation however does note fatigue into the left lateral shoulder by rep 10. Rehab Potential: Fair Comorbidities: Known Rotator Cuff [...] plan Plan for next session: Will continue manual therapy techniques and neuromuscular re-education order to assist with pain levels into the shoulder and thoracic spine. Will continue to progress with active assistive range of motion and UBE next session. Time Spent with Patient Manual Therapy (min): 18 min Therapeutic Exercise (min): 21 min Time Calculation Total Timed Units (min): 39 min Total Treatment Time (min): 39 min Suzan Quezada P.T. ITAL TRAY SERVICE WORKER documented in this encounter Plan of Treatment Upcoming Encounters Date Type Specialty Care Team Description 02/15/2022 Office Visit Orthopedic Surgery RavinmiMadyson haq il, D.ONikhil [address] [place], [place] [phone] (Wo rk) documented as of this encounter Visit Diagnoses Diagnosis Pain Shoulder Left - Primary documented in this encounter Additional Health Concerns Assessment Noted Time PHQ-9 Depression Total Score: 4 07/11/2017 8:29 AM CDT documented as of this encounter Care Teams Mainframe Developer Relationship Specialty Start Date End Date Norma Kenny APRN, C.N.P. PCP - General 09/12/[address] [place] [address] documented as of this encounter
--- OUTSIDE RECORDS SUMMARY | 2022-01-25 11:40 | XMS_ITS | Encounter Summary ---
:1965 Author Organization [facility] Address [address] [place] [address] Care Team Providers Name Role Phone Norma Kenny APRN, C.N.P. 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 - 03/25/2018 8:45 AM CST Received call from Elba mcgrath, at [facility] asking if this patient could be seen in ortho clinic today. Has an appointment in [place] on 04-02-18 in ortho department. Ame Beal is asking if this patient could be seen here sooner, today if possible. Spoke to Marina at [facility] stating the patient had an MRI of left shoulder on 03-20-18, due to pain. Will check with ortho clinic for possible add on for today. Spoke with Cyn RIVERA, in ortho clinic, stating the patient can be seen today 03-25-[address] Cordova, 1245 arrival time. Called and informed Elba in Scheduling. She will call the patient and add him onto the schedule if agreeable with the patient. Also informed Elba if this does not work for the patient, he can be seen by Dr. Hawk on 04/03/18. CIATE PROFESSOR OF THEATRE documented in this encounter Plan of Treatment Upcoming Encounters Date Type Specialty Care Team Description 02/15/2022 [facility] [address] [place], [place] [phone] (Wo rk) documented as of this encounter Visit Diagnoses Not on filedocumented in this encounter Additional Health Concerns Assessment Noted Time PHQ-9 Depression Total Score: 4 07/11/2017 8:29 AM CDT documented as of this encounter Care Teams Lead Advisor Relationship Specialty Start Date End Date Norma Kenny APRN, C.N.P. PCP - General 09/12/[address] [place] [address] documented as of this encounter
--- OUTSIDE RECORDS SUMMARY | 2022-01-25 11:40 | XMS_ITS | Encounter Summary ---
:1965 Author Organization [facility] Address [address] [place] [address] Care Team Providers Name Role Phone Norma Kenny APRN C.N.P. Primary Care Provider [phone] Reason for Visit Reason Onset Date Comments Communication 07/22/2018 Encounter Details Date Type Department Care Team Description 07/22/2018 Clinical Communication Department of [facility] Cole Beal, Communication [facility]P.[place], [place] R.N. 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 - 07/23/2018 1:17 PM CDT Patient notified and verbalized understanding. Telephone Encounter - Ame Beal APRN C.N.PNikhil - 07/23/2018 12:39 PM CDT Please have him follow up in the next 3 months for annual visit. Fasting lab orders placed in the meantime to be done at his convenience. Thanks, HAO Telephone Encounter - Moira Butler C.M.A. - 07/22/2018 12:59 PM CDT Per Ame's 06/08/18 note, Blood pressure elevated at visit today likely due to patient's stress level. He is due for annual visit in June. Has been mildly elevated at last visits due to pain. Will re-evaluate in June. All questions answered. Patient stated understanding and agreement with current plan. Please place orders for labs unless you'd like to discuss with patient at visit for annual exam first. Telephone Encounter - MeaganPatrizia Amy - 07/22/2018 12:35 PM CDT Please do not reply to sender,emails are not monitored. Thank you. If you need a prescription refill please call your pharmacy. Please allow 3 business days for processing. Expert RN: N/A (Med Refill Only) Call Center Template: ??? May we leave a message for you on this phone? yes What can I help you with today? He was told to make an appointment for yearly bloodwork but there are no orders he's wondering if you could place those. He said he's Ame once a month for 4 months nowand is wondering if he needs to see her again for an exam. ??? If Medication Refill: o What is the name and strength of the medication? o What do you use the medication for? o How many pills do you have left? o What pharmacy do you use (include location)? I will send this information to the appropriate staff member who will look into your concern. Is there anything else I can help you with today? Thank you for calling [facility]. documented in this encounter Plan of Treatment Upcoming Encounters Date Type Specialty Care Team Description 02/15/2022 Office Visit Orthopedic Surgery Madyson Rosa D.O. [address] [place], [place] [phone] (Wo rk) documented as of this encounter Results (ABNORMAL) Lipid Panel (09/10/2018 3:46 PM CDT) athologist Signature Cholesterol, 260 (H) mg/dL 09/10/2018 [...] 6:51 Venous) CDT PM CDT Ame Beal APRN C.N.P., R.N. LAB BLOOD ADD-ON Performing Organization Address [facility]/ZIP Code Phon e Number [address] [address] [facility] [place] [place] [facility] AST (Aspartate Aminotransferase) (09/10/2018 3:46 PM CDT) [facility] Method Time Signature Aspartate 25 8 - 48 09/10/2018 Aminotransferase U/L 7:33 PM CDT (AST), S Specimen Anatomical Collection Method Collection Time Receive d Time (Source) Location / / Volume Laterality Blood (Blood, 09/10/2018 3:46 PM 09/11/19 19 6:51 Venous) CDT PM CDT Ame Beal APRN C.N.P., R.N. LAB BLOOD ADD-ON Performing Organization Address [facility]/ZIP Code Phon e Number [address] [address] [facility] [place] [place] [facility] ALT (Alanine Aminotransferase) (09/10/2018 3:46 PM CDT) [facility] Method Time Signature Alanine 28 7 - 55 09/10/2018 Aminotransferase U/L 7:33 PM CDT (ALT), S Specimen Anatomical Collection Method Collection Time Receive d Time (Source) Location / / Volume Laterality Blood (Blood, 09/10/2018 3:46 PM 09/11/19 19 6:51 Venous) CDT PM CDT Ame Beal APRN C.N.P., R.N. LAB BLOOD ADD-ON Performing Organization Address [facility]/ZIP Code Phon e Number [address] [address] [facility] (ABNORMAL) Basic Metabolic Panel (09/10/2018 3:46 PM CDT) athologist Signature Potassium, S 4.5 3.6 - [...] >=60 09/10/2018 Black/ mL/min/BSA 7:33 PM CDT Citizen Of [place] Comment: ----ADDITIONAL INFORMATION---- Estimated GFR calculated using [...] Organization Address City/State/ZIP Code Phon e Number [facility] [address] [address] [place] [facility] documented in this encounter Visit Diagnoses Diagnosis Hyperlipidemia - Primary Hypertension Essential Primary documented in this encounter Additional Health Concerns Assessment Noted Time PHQ-9 Depression Total Score: 4 07/11/2017 8:29 AM CDT documented as of this encounter Care Teams Impregnator Relationship Specialty Start Date End Date Norma Kenny APRN, C.N.P. PCP - General 09/12/[address] [place] [phone] documented as of this encounter
--- OUTSIDE RECORDS SUMMARY | 2022-01-25 11:40 | XMS_ITS | Encounter Summary ---
:1965 Author Organization [facility] Address [address] [place] [address] Care Team Providers Name Role Phone Norma Kenny APRN, C.N.P. Primary Care Provider Reason for Visit Physical Therapy (Routine) - Canceled Specialty Diagnoses / Procedures Referred By Contact Refer red To Contact Diagnoses Pain Shoulder Left M25.512 (ICD-10-CM) - Pain Shoulder Left Ame Beal APRN, [facility] Region Procedures PT Ongoing treatment PMR THER PT C.N.P., R.N. [address] [facility], [facility] [address] [place] [address] Referral ID Status Reason Start Date Expiration Date Visits V isits Requested Authorized [id number] Canceled 05/04/2018 03/30/2019 99 39 Encounter Details Date Type Department Care Team Description 05/22/2018 Clinical Support Department of Physical Ame Beal APRN, C.N.P., R.N. 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 - 05/22/2018 8:00 AM CST Physical Therapy Outpatient Treatment Note SUBJECTIVE Patient's Name: Saad Murray Referring Provider: Ame Beal APRN, C* Visit Diagnosis: 1. Pain Shoulder Left Reason for Referral: Left shoulder torn rotator cuff and labral tear Onset Date: 05/07/17 Payor: [facility] / Plan: [facility] [place] / Product Type: PPO / No Data Recorded Epic Visit Count: 5 Diagnostic Tests: MRI Left Shoulder IMPRESSION: Small tear of the distal supraspinatus tendon. Is difficult to determine if this is a complete or partial thickness tear. Mild biceps tendinosis. Labral tear. Ganglion cyst in the spinoglenoid notch may impinge upon the suprascapular nerve. Patient comments: patient reports that after Friday's visit, he did have improvement of left shoulder symptoms. He was able to rent a carpet journal box inspector and clean his carpets with minimal difficulty in the left shoulder. He notes improvement of internal and external rotation range of motion and continues have pain with 90?? of flexion and abduction of left shoulder. OBJECTIVE Ortho Exam ?? Range [...] with most tender areas from T3- 6. Patient then returns back to supine, muscle energy technique for bilateral [...] reps each within pain-free range of motion Initiated therapy band internal and external rotation with yellow 15 reps of each Home Exercise Program/Education: Counter wipes, prone row, prone extension Pt reports good compliance with his HEP. Assessment Clinical Impression: Patient able to improve his external rotation range of motion and internal rotation range of motion equal to right side. He continues to have pain work 90?? of shoulder flexion andabduction however able to reach beyond that range of motion. Patient able to complete internal and external rotation range of motion strengthening without onset of pain however he does fatigue with 10 reps. He continues have hypertonicity throughout the thoracic paraspinals and along the left medial scapular border. Rehab Potential: Fair Comorbidities: Known Rotator Cuff [...] Time Spent with Patient Manual Therapy (min): 23 min Therapeutic Exercise (min): 17 min Time Calculation Total Timed Units (min): 40 min Total Treatment Time (min): 40 min Suzan Quezada P.T. WEB SERVICES DEVELOPER documented in this encounter Plan of Treatment Upcoming Encounters Date Type Specialty Care Team Description 02/15/2022 Office Visit Orthopedic Surgery RavinpaMadyson haq D.ONikhil [address] [place], [place] [phone] (Wo rk) documented as of this encounter Visit Diagnoses Diagnosis Pain Shoulder Left - Primary documented in this encounter Additional Health Concerns Assessment Noted Time PHQ-9 Depression Total Score: 4 07/11/2017 8:29 AM CDT documented as of this encounter Care Teams Golf Instructor Relationship Specialty Start Date End Date Norma Kenny APRN, C.N.P. PCP - General 09/12/[address] [place] [address] documented as of this encounter
--- OUTSIDE RECORDS SUMMARY | 2022-01-25 11:40 | XMS_ITS | Encounter Summary ---
:1965 Author Organization [facility] Address [address] [place] [address] Care Team Providers Name Role Phone Norma Kenny APRN, C.N.P. Primary Care Provider [phone] Reason for Visit Physical Therapy (Routine) - Canceled Specialty Diagnoses / Procedures Referred By Contact Refer red To Contact Diagnoses Pain Shoulder Left M25.512 (ICD-10-CM) - Pain Shoulder Left Ame Beal APRN, [facility] Region Procedures PT Ongoing treatment PMR THER PT C.N.P., R.N. [address] [facility], [facility] [address] [place] [address] Referral ID Status Reason Start Date Expiration Date Visits V isits Requested Authorized [id number] Canceled 05/04/2018 03/30/2019 99 39 Encounter Details Date Type Department Care Team Description 05/11/2018 Clinical Support Department of Physical Ame Beal APRN, C.N.P., R.N. 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 - 05/11/2018 8:45 AM CST Physical Therapy Outpatient Treatment Note SUBJECTIVE Patient's Name: Saad Murray Referring Provider: Ame Beal APRN, C* Visit Diagnosis: 1. Pain Shoulder Left Reason for Referral: Left shoulder torn rotator cuff and labral tear Onset Date: 05/07/17 Payor: [facility] / Plan: [facility] [place] / Product Type: PPO / No Data Recorded Epic Visit Count: 2 Diagnostic Tests: MRI Left Shoulder IMPRESSION: Small tear of the distal supraspinatus tendon. Is difficult to determine if this is a complete or partial thickness tear. Mild biceps tendinosis. Labral tear. Ganglion cyst in the spinoglenoid notch may impinge upon the suprascapular nerve. Patient comments: patient reports that he did some soreness into the left shoulder yesterday with difficulty with active range of motion. He states the most sharp pains were with active left shoulder abduction position. He was unable to perform his home exercise program yesterday due to these pains and soreness. OBJECTIVE Ortho Exam ?? Range of Motion: [...] and clearing in to the medial scapular border. In sitting performed lateral mobilizations of thoracic spine T5 through T6 grade 3/grade 4. Neuromuscular Re-education: in sitting performed muscle energy technique for ERS to the right T2 through T5. Muscle energy technique for FRS to the left T1 on T2. Performed reverse NAGS T1-T5 Therapeutic Exercise: counter wipes into flexion, clockwise, counter-clockwise 15 reps each Prone row and prone shoulder extension 15 reps of each Wall wipes into flexion clockwise and counter-clockwise 15 reps each within pain-free range of motion Home Exercise Program/Education: Counter wipes, prone row, prone extension Pt reports good compliance with his HEP. Assessment Clinical Impression: Patient continues have high levels hypertonicity along the medial scapular border both left and right today. He is able to increase his cervical rotation range of motion at end of session following muscle energy techniques and full cervical extension following reverse NAGS. Encouraged patient to maintain his active assisted range of motion within pain free range in order to off load the labral tear. Rehab Potential: Fair Comorbidities: Known Rotator Cuff [...] with active assistive range of motion and initiate UBE next session. Time Spent with Patient Manual Therapy (min): 16 min Neuromuscular Re-Education (min): 5 min Therapeutic Exercise (min): 15 min Time Calculation Total Timed Units (min): 36 min Total Treatment Time (min): 36 min Suzan Quezada P.T. PAINT SHADER documented in this encounter Plan of Treatment Upcoming Encounters Date Type Specialty Care Team Description 02/15/2022 Office Visit Orthopedic Surgery Madyson Rosa, D.ONikhil [address] [place], [place] [phone] (Wo rk) documented as of this encounter Visit Diagnoses Diagnosis Pain Shoulder Left - Primary documented in this encounter Additional Health Concerns Assessment Noted Time PHQ-9 Depression Total Score: 4 07/11/2017 8:29 AM CDT documented as of this encounter Care Teams Music Adapter Relationship Specialty Start Date End Date Norma Kenny APRN, C.N.P. PCP - General 09/12/[address] [place] [address] documented as of this encounter
--- OUTSIDE RECORDS SUMMARY | 2022-01-25 11:40 | XMS_ITS | Encounter Summary ---
:[address] [facility] Address [address] [place] [address] Care Team Providers Name Role Phone Norma Kenny APRN C.NNikhilPNikhil Primary Care Provider [phone] Reason for Visit Reason Comments Med Refill Encounter Details Date Type Department Care Team Description 07/21/2018 Refill Department of Family Medicine Rosi Pizano, RJefferson Med Refill in [facility] [address] [place] [address] [place] [address] [phone] Social History Tobacco Use Types Packs/Day Years [...] How often do you attend catholic or baptism More than 4 time s per year [...] at Date Recorded 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 as of this encounter Miscellaneous Notes Telephone Encounter - Rosi Metcalf RJefferson - 07/21/2018 4:49 PM CDT Last seen by Ame Beal 06/08/2018 Last refill 04/21/2018 documented in this encounter Plan of Treatment Upcoming Encounters Date Type Specialty Care Team Description 02/15/2022 Office Visit Orthopedic Surgery Madyson Rosa il, D.ONikhil [address] [facility] [place] [phone] (Wo rk) documented as of this encounter Visit Diagnoses Diagnosis Hypertension Essential Primary documented in this encounter Additional Health Concerns Assessment Noted Time PHQ-9 Depression Total Score: 4 07/11/2017 8:29 AM CDT documented as of this encounter Care Teams Makeup Artistry Instructor Relationship Specialty Start Date End Date Norma Kenny APRN, C.N.P. PCP - General 09/12/[address] [place] [address] documented as of this encounter
--- OUTSIDE RECORDS SUMMARY | 2022-01-25 11:40 | XMS_ITS | Encounter Summary ---
:1965 Author Organization [facility] Address [address] [place] [address] Care Team Providers Name Role Phone Norma Kenny APRN, C.NNikhilPNikhil Primary Care Provider [phone] Encounter Details Date Type Department Care Team Description 09/23/2018 Clinical Communication Department of [facility] Artie Butler ae, Medicine in [place], [place] [phone] [place] [address] (Work) [place] [phone] Social History Tobacco Use Types Packs/Day Years [...] How often do you attend amish or oriental orthodox More than 4 time [...] at Date Recorded 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 [address] [place], [place] [address] (Wo rk) documented as of this encounter Visit Diagnoses Not on filedocumented in this encounter Additional Health Concerns Assessment Noted Time PHQ-9 Depression Total Score: 2 09/17/2018 9:08 AM CDT documented as of this encounter Care Teams Funeral Home Assistant Relationship Specialty Start Date End Date Norma Kenny APRN, C.N.P. PCP - General 09/12/[address] [place] [address] documented as of this encounter
--- OUTSIDE RECORDS SUMMARY | 2022-01-25 11:41 | XMS_ITS | Encounter Summary ---
:1965 Author Organization [facility] Address [address] [place] [address] Care Team Providers Name Role Phone Norma Kenny APRN C.N.P. Primary Care Provider [phone] Encounter Details Date Type Department Care Team Description 03/08/2017 Nurse Triage Department of 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 [address] [place], [place] [phone] (Wo rk) documented as of this encounter Visit Diagnoses Not on filedocumented in this encounter Care Teams Weatherseal Technician Relationship Specialty Start Date End Date Norma Kenny APRN, C.N.P. PCP - General 09/12/[address] [place] [phone] documented as of this encounter
--- OUTSIDE RECORDS SUMMARY | 2022-01-25 11:41 | XMS_ITS | Encounter Summary ---
:1965 Author Organization [facility] Address [address] [place] [address] Care Team Providers Name Role Phone Norma Solis APRN, C.NGregg Primary Care Provider [phone] Encounter Details Date Type Department Care Team Description 11/12/2016 Hospital Encounter HX [facility] ED Nathan Gabriel M.D. [address] [place], [place] [phone] (Wo rk) Social History Tobacco Use Types Packs/Day Years Used Date Smoking Tobacco: Former Alcohol Habits Answer Date Recorded How often [...] How often do you attend rastafarian or anglican More than 4 time s [...] at Date Recorded Male 03/25/2018 1:01 PM [employer] documented as of this encounter Last Filed Vital Signs Vital Sign Reading Time Taken Comments Blood Pressure 137/78 11/12/2016 11:59 AM CDT Pulse 78 11/12/2016 11:59 AM CDT Temperature - - Respiratory Rate 16 11/12/2016 11:59 AM CDT Oxygen Saturation - - Inhaled Oxygen Concentration - - Weight - - Height 185 cm (6' 0.84) 11/12/2016 11:59 AM CDT Body Mass Index - - documented in this encounter Discharge Summaries Anderson Almendarez R.N. - 11/12/2016 5:51 PM CDT ED Discharge Instructions [place] [address] [place] [address] Name: SAAD MURRAY Date of : 1965 12:00 AM Visit Date: 11/12/2016 8:56 AM [facility] Number: [id number] Address: [address] [place] [id number] Primary Care Provider: NORMA SOLIS CNP IMPORTANT: [facility] [place] would like to thank you for allowing us to assistyou with your healthcare needs. The following includes patient education materials and information regarding your injury/illness. Diagnosis: Follow-Up Instructions: With: Address: When: NORMA SOLIS [address] [place] [id number] Business (1) Within 5 - 7days Comments: CALL THE ER IF YOU HAVE ANY OTHER EPISODES OR ARE NOT FEELING WELL IN 96 HOURS (4 DAYS) Your Upcoming Appointments: Date Time Location Provider No Appointments found Patient Education Materials: Chest Pain, Uncertain Cause Chest pain can happen for a number of reasons. Sometimes the cause can not be determined. If your condition does not seem serious, and your pain does not appear to be coming from your heart, your doctor may recommend watching it closely. Sometimes the signs of a serious problem take more time to appear. Therefore, watch for the warning signs listed below. Home care After your visit, follow these recommendations: ?? Rest today and avoid strenuous activity. ?? Take any prescribed medicine as directed. Follow-up care Follow up with your doctor or this facility as instructed or if you do not start to feel better within 24 hours. Call 911 Get immediate medical attention if any of the following occur: ?? [id number] change in the type of pain: if it feels different, becomes more severe, lasts longer, or begins to spread into your shoulder, arm, neck, jaw or back ?? Shortness of breath or increased pain with breathing ?? Weakness, dizziness, or fainting ?? Rapid heart beat Get prompt medical attention Call your doctor right away if any of the following occur: ?? Cough with dark colored sputum (phlegm) or blood ?? Fever of 100.4?F (38?C) or higher, or as directed by your health care provider ?? Swelling, pain or redness in one leg ?? [id number] [facility], [address] [place] [address], [place] [address]. All rights reserved. This information is not intended as a substitute for professional medical care. Always follow your healthcare professional's instructions. Consider Using Patient Online Services Patient Online Services is a secure online and Mobile application that lets you: ?? View lab and test results ?? View portions of your medical record including clinical notes, immunizations and discharge summaries ?? Request an appointment or medication refill ?? Review your appointment schedule ?? Send secure messages to your care team Its easy to create an account if you dont have one. Go to [email or web address] and click on Create Your Account. Then, follow the directions to complete the online form. Youll be asked for your [facility] number which you can find at the top of this document. ED Tests and Procedures: Order Status Automated Diff-5 Part Completed EKG-Lab Completed DDimer Completed XR Chest 2 Views Completed Troponin T Completed Troponin T Completed Oxygen - ED Ordered PT/INR Completed Basic Metabolic Panel Completed CBC (includes Auto Differential) Completed Hepatic Function Panel Completed Lipase Level Completed Communication to Lab Completed Discharge Prescriptions & Home Medications: Medication/Strength Dose Route Frequency Indications/Special Instructions/Comments/Notes ibuprofen (ibuprofen 200 mg oral tablet) 800 mg Oral four times a day as needed for Pain / Fever Take with food pantoprazole (Protonix 40 mg oral delayed release tablet) 40 mg Oral once a day lisinopril-hydroCHLOROthiazide (lisinopril-hydroCHLOROthiazide 20mg-25mg oral tablet) 1 tab(s) Oral once a day (Zestoretic) atorvastatin (atorvastatin 20 mg oral tablet) 20 mg Oral once a day (at bedtime) metoprolol (metoprolol succinate 25 mg oral tablet, extended release) 25 mg Oral once a day Take as needed for palpitations or if BP is higher than 140/90 Attention: If you have any medications at home not on this list, DO NOT take them until you contact your provider for clarification. Give a copy of your medication list to your primary care provider. Update your medication list any time medications or doses are changed and carry your medication list at all times in case of emergency. IMPORTANT: We examined and treated you today on an emergency basis only. This was not a substitute for, or an effort to provide, complete medical care. In most cases, you must let your doctor check youagain. Tell your doctor about any new or lasting problems. We cannot recognize and treat all injuries or illnesses in one Emergency Department visit. If you had special tests, such as EKG's or X- rays, we will review them again within 24 hours. We will call you if there are any new suggestions. Please follow the instructions above carefully. If you are being transferred to another facility, your follow up plan of care will be determined by the receiving facility. If you are a patient that is being discharged from the Emergency Department after receiving narcotics or other medications that may impair your judgment you may be a risk to yourself or others if you operate a motor vehicle. We recommend that you arrange a ride home with a responsible libertarian. LISETTE Levy TIMOTHY D , or responsible libertarian have received this information and my questions havebeen answered. I have discussed any challenges I see with this plan with the nurse or physician. Patient Signature or Responsible Republican/Relationship Date Time Provider Signature Date Time IMPORTANT: We examined and treated you today on an emergency basis only. This was not a substitute for, or an effort to provide, complete medical care. In most cases, you must let your doctor check youagain. Tell your doctor about any new or lasting problems. We cannot recognize and treat all injuries or illnesses in one Emergency Department visit. If you had special tests, such as EKG's or X- rays, we will review them again within 24 hours. We will call you if there are any new suggestions. Please follow the instructions above carefully. If you are being transferred to another facility, your follow up plan of care will be determined by the receiving facility. If you are a patient that is being discharged from the Emergency Department after receiving narcotics or other medications that may impair your judgment you may be a risk to yourself or others if you operate a motor vehicle. We recommend that you arrange a ride home with a responsible libertarian. I, HENOKISAACSAAD Ruby , or responsible libertarian have received this information and my questions havebeen answered. I have discussed any challenges I see with this plan with the nurse or physician. Patient Signature or Responsible Republican/Relationship Date Time Provider Signature Date Time This document has images extracted. Please consider using [employer] for all your patient education needs. Source: [facility] POWERCHART Document Id: [id number] Anderson Almendarez R.N. - 11/12/2016 5:51 PM CDT ED Depart Summary [facility] Emergency Department Clinical Discharge Summary PERSON INFORMATION Name SAAD MURRAY Age 50 Years 1965 12:00 AM Sex Male Language Equatorial Guinean PCP NORMA SOLIS CNP Marital Status Visit Id Visit Reason Chest pain; chest pain Specialty Enc Type Emergency Med Service Emergency Medicine Referred by Track Group [facility] ED Discharge 11/12/2016 12:10 PM Tracking Id [id number] Checkout 11/12/2016 12:10 PM Checkin 11/12/2016 8:56 AM Acuity 3 -Urgent Dispo Type * Discharged to Home or Self Care Arrival 11/12/2016 8:56 AM Reg Status LOS 000 03:14 Address: [address] [place] [address] [place] [address] Comment: PROVIDER INFORMATION Provider Role Provider Contact Time ANDERSON ALMENDAREZ RN ED Nurse 11/12/16 09:39 NATHAN GABRIEL MD ED Provider 11/12/16 09:43 DIAGNOSIS Comment: PATIENT EDUCATION INFORMATION Instructions: CHEST PAIN, Uncertain Cause Follow up: With: Address: When: NORMA SOLIS [address] [place] [phone] [place] (0) Within 5 - 7days Comments: CALL THE ER IF YOU HAVE ANY OTHER EPISODES OR ARE NOT FEELING WELL IN 96 HOURS (4 DAYS) Source: [facility] [employer] Document Id: [id number] Anderson Almendarez R.N. - 11/12/2016 5:49 PM CDT ED Disposition Summary ED Disposition Summary Entered On: 11/12/2016 17:50 CDT Performed On: 11/12/2016 17:49 CDT by ANDERSON ALMENDAREZ RN ED Disposition Summary Present in Room During Exam/Procedure : Alone Mode of Discharge : Ambulatory Transportation : Private vehicle Printed Discharge Instructions Given to Patient : Yes Patient Status at Discharge from ED : Improved 30 Minutes Critical Care : No ANDERSON ALMENDAREZ RN - 11/12/2016 17:49 CDT Source: [facility] [employer] Document Id: [id number] CDT!8 documented in this encounter Medications at Time of Discharge Medication Sig Dispensed Refills Start Date End Date atorvastatin (for_LIPITOR) Take 1 tablet by 0 03/06/2017 20 mg tablet mouth at bedtime. lisinopril-hydroCHLOROthia Take 1 tablet by 0 05/201606/09/2017 zide mouth daily. (for_PRINZIDE,ZESTORETIC) 20-25 mg per tablet metoprolol succinate Take 1 tablet by 0 6 05/12/2017 (for_TOPROL-XL) 25 mg 24 mouth daily. hr tablet pantoprazole (PROTONIX) 40 Take 1 tablet by 0 07/11/2017 mg EC tablet mouth as needed. documented as of this encounter ED Notes Anderson Almendarez R.N. - 11/12/2016 12:04 PM CDT ED Treatments and Procedures ED Treatments and Procedures Entered On: 11/12/2016 12:04 CDT Performed On: 11/12/2016 12:04 CDT by ANDERSON ALMENDAREZ RN Peripheral IV Peripheral IV Assess/Intervention Grid Peripheral IV #1 Removal : Catheter intact, Hemostasis within expected timeframe Date of Insertion : 11/12/2016 CDT Discontinued Date : 11/12/2016 CDT IV Site : Hand Laterality : Right Catheter Size : 18 Catheter Type : Over the needle Site Condition : No complications Drainage Description : None ANDERSON ALMENDAREZ RN - 11/12/2016 12:04 CDT Source: [employer] Document Id: [id number] CDT!13 Nathan Gabriel M.D. - 11/12/2016 11:57 AM CDT Chest pain Patient: SAAD MURRAY Age: 50 years Sex: Male : 1965 Author: NATHAN GABRIEL MD Attachments: None Basic Information Time seen: Immediately upon arrival. History source: Patient. Arrival mode: Private vehicle. History limitation: None. Additional information: Chief Complaint from Nursing Triage Note : Chief Complaint Description 11/12/2016 9:04 CDT Chief Complaint Description pt presents stating he had a sudden onset of left sided chest pain that was stabbing in nature, and it radiated to his back under his shoulder blades. Nonausea, diaphoresis or lightheadedness. Currently pt only feeling discomfort in shoulder blades. . History of Present Illness The patient presents with chest pain. The onset was 2 hours ago. The course/duration of symptoms is improving. Location: left sided chest pain. Radiating pain: BILATERAL shoulder blades. The character of symptoms is sharp. The degree at onset was 5 /10. The degree at maximum was minimal, upon arrival p atient states pain is 1/10 and in shoulder blades only. He DENIES any chest pain. He declines offer of analgesia. The exacerbating factor is movement. The relieving factor is Ibuprofen 600 mg taken approximately 30 minutes after symptom onset. Risk factors consist of hypertension, obesity, hyperlipidemia and family history of coronary artery disease. Prior episodes: none. Therapy today ibuprofen 600 mg. Associated symptoms: anxiety, denies shortness of breath, denies nausea, denies vomiting, denies diaphoresis and denies palpitations. Additional history: Pt recently ...family member with history of ruptured AAA which patient is very worried about. Review of Systems Constitutional symptoms: Negative except as documented in HPI. Skin symptoms: Negative except as documented in HPI. Eye symptoms: Negative except as documented in HPI. ENMT symptoms: Negative except as documented in HPI. Respiratory symptoms: Negative except as documented in HPI. Cardiovascular symptoms: Negative except as documented in HPI. Gastrointestinal symptoms: Negative except as documented in HPI. Genitourinary symptoms: Negative except as documented in HPI. Musculoskeletal symptoms: Negative except as documented in HPI. Neurologic symptoms: Negative except as documented in HPI. Psychiatric symptoms: Negative except as documented in HPI. Additional review of systems information: All other systems reviewed and otherwise negative. Health Status Allergies: Allergic Reactions (Selected) NKA. Past Medical/ Family/ Social History Medical history: Resolved Body mass index (BMI) 45.0-49.9, adult (Z68.42): Resolved on 09/27/2016 at 50 years. Comments: 03/15/2016 [employer] 12:53 [employer] - SYSTEM, SYSTEM Rule activated problem due to BMI 45-49 posted on 03/15 at 12:50 [employer]. 09/27/2016 CDT 11:31 CDT - SYSTEM, SYSTEM Rule resolved problem due to BMI 40-44 posted on 09/27 at 11:27 CDT. Diverticulosis NOS (K57.90): Resolved., Reviewed as documented in chart. Surgical history: Repair of umbilical hernia ([id number]) on 04/12/2016 at 50 Years. Echocardiogram ([id number]) on 01/27/2007 at 41 Years. Comments: 04/30/2012 16:03 - WILMER GAONA LPN normal Vasectomy ([id number]) on 03/05/2005 at 39 Years.. Family history: Hypertension Father () Mother Sister Parkinson's disease Father () GERD - Gastro-esophageal reflux disease Brother Pacemaker care management Mother . Social history: Family/social situation: . Physical Examination Vital Signs: Vital Signs 11/12/2016 11:59 CDT Temperature Core 36.7 DegC Peripheral Pulse Rate 78 /min Respiratory Rate 16 /min SpO2 98 % Systolic Blood Pressure 137 mmHg Diastolic Blood Pressure 78 mmHg BP Location Left upper 11/12/2016 11:30 CDT Temperature Core 36.9 DegC Peripheral Pulse Rate 78 /min Respiratory Rate 16 /min SpO2 98 % Systolic Blood Pressure 136 mmHg Diastolic Blood Pressure 79 mmHg BP Location Left upper 11/12/2016 10:34 CDT Temperature Core 36.8 DegC Peripheral Pulse Rate 77 /min Respiratory Rate 16 /min SpO2 95 % Systolic Blood Pressure 156 mmHg HI Diastolic Blood Pressure 89 mmHg BP Location Right upper 11/12/2016 9:30 CDT Temperature Core 36.9 DegC Peripheral Pulse Rate 80 /min Respiratory Rate 16 /min SpO2 95 % Systolic Blood Pressure 158 mmHg HI Diastolic Blood Pressure 93 mmHg >HHI BP Location Left upper 11/12/2016 9:24 CDT Temperature Core In Error DegC (In Error) Peripheral Pulse Rate In Error /min (In Error) Respiratory Rate In Error /min (In Error) SpO2 In Error % (In Error) Systolic Blood Pressure In Error mmHg (In Error) Diastolic Blood Pressure In Error mmHg (In Error) BP Location In Error (In Error) 11/12/2016 9:04 CDT Temperature Core 36.6 DegC Peripheral Pulse Rate 98 /min Respiratory Rate 16 /min SpO2 99 % Systolic Blood Pressure 183 mmHg >HHI Diastolic Blood Pressure 90 mmHg HI Mean Arterial Pressure 121 mmHg BP Location Left upper , Measurements 11/12/2016 11:59 CDT Height 185 cm 11/12/2016 11:30 CDT Height 185 cm 11/12/2016 10:34 CDT Height 185 cm 11/12/2016 9:30 CDT Height 185 cm 11/12/2016 9:24 CDT Height 185 cm 11/12/2016 9:04 CDT Height 185 cm Height Source Stated Dosing Weight 145.00 kg NA Estimated Weight 145 kg , SpO2 11/12/2016 11:59 CDT SpO2 98 % 11/12/2016 11:30 CDT SpO2 98 % 11/12/2016 10:34 CDT SpO2 95 % 11/12/2016 9:30 CDT SpO2 95 % 11/12/2016 9:24 CDT SpO2 In Error % (In Error) 11/12/2016 9:04 CDT SpO2 99 % . General: Alert, mild distress and anxious. Skin: Warm, intact, moist and no rash. Head: Normocephalic. Neck: Supple. Ears, nose, mouth and throat: Tympanic membranes clear and oral mucosa moist. Cardiovascular: Regular rate and rhythm. Respiratory: Lungs are clear to auscultation. Chest wall: No tenderness and No deformity. Musculoskeletal: Normal ROM Gastrointestinal: Soft, Nontender, Non distended, Normal bowel sounds, Obese and Scars. Neurological: Alert and oriented to person, place, time, and situation, No focal neurological deficit observed, CN II-XII intact, normal sensory observed, normal motor observed, normal speech observed and normal coordination observed. Lymphatics: No lymphadenopathy. Psychiatric: Cooperative and Mood and affect: Anxious. Medical Decision Making Electrocardiogram:* Final Report * MuseReport Test Reason : CHEST PAIN Blood Pressure : / mmHG Vent. Rate : 093 BPM Atrial Rate : 093 BPM P-R Int : 194 ms QRS Dur : 088 ms QT Int : 352 ms P-R-T Axes : 054 -01 002 degrees QTc Int : 437 ms Normal sinus rhythm Normal ECG When compared with ECG of 27-SEP-2016 11:22, Criteria for Left ventricular hypertrophy are no longer present Referred By: NATHAN GABRIEL Confirmed By:BRYON GUERRERO MD . monitor technician:Normal sinus rhythm. Results review:Lab results : Lab View 11/12/2016 10:51 CDT Troponin-T <0.010 ng/mL 11/12/2016 9:16 CDT Hgb 14.1 g/dL Hct 41.4 % WBC 8.0 x10(9)/L RBC 4.44 x10(12)/L MCV 93.2 fL RDW 12.8 % Platelet 200 x10(9)/L Neutro Absolute 5.61 10(9)/L Lymph Absolute 1.62 x10(9)/L [place] Absolute 0.63 x10(9)/L Eos Absolute 0.13 x10(9)/L Baso Absolute 0.02 x10(9)/L Differential? Auto PT 9.3 second(s) INR 1.0 INR D-Dimer 0.48 mcg/mL FEU Sodium Lvl 134 mmol/L LOW Potassium Lvl 4.2 mmol/L Chloride 95 mmol/L LOW CO2 28 mmol/L AGAP 11 mmol/L Alkaline Phosphatase 70 U/L Glucose Lvl 135 mg/dL Creatinine 1.0 mg/dL EGFR (MDRD) >60.0 mL/min/SA EGFR (MDRD) >60.0 mL/min/SA BUN 19 mg/dL Calcium Lvl 9.0 mg/dL Protein Total 6.7 g/dL Albumin Lvl 4.2 g/dL AST 37 U/L ALT 50 U/L Bili Total 0.7 mg/dL Bili Direct 0.2 mg/dL Lipase Lvl 26 U/L 11/12/2016 9:15 CDT Troponin-T <0.010 ng/mL . Chest X-Ray:* Final Report * Reason For Exam Chest pain Report EXAM: XR Chest 2 Views INDICATION: Chest pain COMPARISON: None. FINDINGS: Heart and great vessels are normal and there is no indication of an active infiltrate in either lung field. No pleural fluid is present. Bony structures are normal with modest degenerative change in the mid to lower thoracic spine. IMPRESSION: Negative chest for active disease. Signature Line Final Dictated: 11/12/2016 9:42 am RACHEL ROBERTSON MD Signed (Electronic Signature): 11/12/2016 9:43 am Transcribed by: [facility] Technologist: BALJEET SAUNDERS RT(R)(C [id number] . Reexamination/ Reevaluation Pt stable during time in ER without any increase in shoulder pain discomfort from his 1/10 rating.LFT, pancreatic enzymes normal. EKG, troponin x 2 negative, D-dimer negative with normal CXR. Discussed potential of musculoskeletal etiology, biliary colic, cardiac, pulmonary pathology with patient and recommended ibuprofen and follow up in the next several days to schedule cardiac stress test and to call the ER with any other questions or concerns. Impression and Plan Diagnosis Chest pain NOS Plan Condition: Improved. Disposition: Discharged: Time 11/12/2016 11:58:00, to home. Prescriptions: Prescription Database Report Writer Pharmacy: ibuprofen 200 mg oral tablet (Prescribe): 800 mg, 4 tab(s), PO, 4xDay, for 4 day(s), Take with food,PRN: Pain / Fever, 64 tab(s), 0 Refill(s). Patient was given the following educational materials: CHEST PAIN, Uncertain Cause. Follow up with: NORMA SOLIS Within 5 - 7 days CALL THE ER IF YOU HAVE ANY OTHER EPISODES OR ARE NOT FEELING WELL IN 96 HOURS (4 DAYS). Counseled: Patient, Regarding diagnosis, Regarding treatment plan, Patient indicated understanding of instructions. Orders: Launch Orders Patient Care: Discharge ED Patient (Order Processing): 11/12/2016 12:00 CDT, Once. Electronically Signed By: NATHAN GABRIEL MD On: 11/13/2016 09:34 AM Modified by and Electronically Signed by: NATHAN GABRIEL MD On: 11/13/2016 09:34 AM Source: [facility] POWERCHART Document Id: [id number] Anderson Almendarez R.N. - 11/12/2016 11:50 AM CDT ED Nurse Reassess ED Nurse Reassess Entered On: 11/12/2016 12:04 CDT Performed On: 11/12/2016 11:50 CDT by ANDERSON ALMENDARZE RN Pain Assessment Pain Symptoms : Yes ANDERSON ALMENDAREZ RN - 11/12/2016 12:02 CDT Comfort Measures Comfort Measures Grid Comfortable Environment : Yes Positioning : Yes Quiet Environment : Yes Relaxation : Yes Rest : Yes ANDERSON ALMENDAREZ RN - 11/12/2016 12:02 CDT Patient Response : MD in for final eval and discharge POC discussion. Questions answered, home. Comfort Measures Response : Comfort level increased ANDERSON ALMENDAREZ RN - 11/12/2016 12:02 CDT Resp Reassess Respiratory Patient Stated Symptoms : None Distress : None Airway : Patent Respiratory Pattern : Regular Respirations : Unlabored Cough : None ANDERSON ALMENDAREZ RN - 11/12/2016 12:02 CDT CV Reassess CV Patient Stated Symptoms : None Skin Color : Normal for ethnicity Skin Description : Dry Skin Temperature : Warm Nail Bed Color : [place] Capillary Refill : Less than 2 seconds Heart Rhythm : Regular Monitoring Lead : II Cardiac Rhythm : Sinus rhythm Ectopy Frequency : None ANDERSON ALMENDAREZ RN - 11/12/2016 12:02 CDT Neuro Reassess Last Well Time Known : Not applicable Orientation : Oriented x 3 Characteristics of Speech : Clear Level of Consciousness : Alert Neuro Patient Stated Symptoms : None Gait : Steady Facial Symmetry : Normal ANDERSON ALMENDAREZ RN - 11/12/2016 12:02 CDT GI Reassess GI Patient Stated Symptoms : None ANDERSON ALMENDAREZ RN - 11/12/2016 12:02 CDT /OB Reassess Patient Stated Symptoms : None ANDERSON ALMENDAREZ RN - 11/12/2016 12:02 CDT Source: [employer] Document Id: [id number] CDT!42 Anderson Almendarez R.N. - 11/12/2016 11:15 AM CDT ED Nurse Reassess ED Nurse Reassess Entered On: 11/12/2016 12:02 CDT Performed On: 11/12/2016 11:15 CDT by ANDERSON ALMENDAREZ RN Pain Assessment Pain Symptoms : Yes ANDERSON ALMENDAREZ RN - 11/12/2016 12:01 CDT Comfort Measures Comfort Measures Grid Comfortable Environment : Yes ANDERSON ALMENDAREZ RN - 11/12/2016 12:01 CDT Patient Response : second troponin also negative. Awaiting final visit from MD and discharge POC discussion. Resting, Shoulder blade discomfort persists, mildly. Pt moved to room 3. ANDERSON ALMENDAREZ RN - 11/12/2016 12:01 CDT Source: [employer] Document Id: [id number] CDT!7 Anderson Almendarez R.N. - 11/12/2016 10:35 AM CDT ED Nurse Reassess ED Nurse Reassess Entered On: 11/12/2016 10:37 CDT Performed On: 11/12/2016 10:35 CDT by ANDERSON ALMENDAREZ RN Pain Assessment Pain Symptoms : Yes ANDERSON ALMENDAREZ RN - 11/12/2016 10:35 CDT Comfort Measures Comfort Measures Grid Comfortable Environment : Yes Positioning : Yes Quiet Environment : Yes Relaxation : Yes Rest : Yes ANDERSON ALMENDAREZ RN - 11/12/2016 10:35 CDT Patient Response : Resting in bed with HOB elevated. Using phone mari[employer] text co- workers. States shoulder blade discomfort is at 1-2/10, does not want anything for it at this time. Will recheck troponin ANDERSON ALMENDAREZ RN - 11/12/2016 10:35 CDT Resp Reassess Respiratory Patient Stated Symptoms : None Distress : None Airway : Patent Respiratory Pattern : Regular Respirations : Unlabored Cough : None ANDERSON ALMENDAREZ RN - 11/12/2016 10:35 CDT CV Reassess CV Patient Stated Symptoms : None Skin Color : Normal for ethnicity Skin Description : Dry Skin Temperature : Warm Nail Bed Color : [place] ANDERSON ALMENDAREZ RN - 11/12/2016 10:35 CDT Source: [employer] Document Id: [id number] CDT!24 Anderson Almendarez R.N. - 11/12/2016 9:51 AM CDT ED Nurse Reassess ED Nurse Reassess Entered On: 11/12/2016 9:53 CDT Performed On: 11/12/2016 9:51 CDT by ANDERSON ALMENDAREZ RN Pain Assessment Pain Symptoms : Yes ANDERSON ALMENDAREZ RN - 11/12/2016 9:51 CDT Comfort Measures Comfort Measures Grid Comfortable Environment : Yes Positioning : Yes ANDERSON ALMENDAREZ RN - 11/12/2016 9:51 CDT Patient Response : Back from Xray. Stable. Up to bathroom to void, tolerated well. monitor technician continues to show NSR. ANDERSON ALMENDAREZ RN - 11/12/2016 9:51 CDT Resp Reassess Respiratory Patient Stated Symptoms : None Distress : None Airway : Patent Respiratory Pattern : Regular Respirations : Unlabored Cough : None ANDERSON ALMENDAREZ RN - 11/12/2016 9:51 CDT CV Reassess CV Patient Stated Symptoms : None Skin Color : Normal for ethnicity Skin Description : Dry Skin Temperature : Warm Nail Bed Color : [place] Heart Rhythm : Regular Monitoring Lead : II Cardiac Rhythm : Sinus rhythm ANDERSON ALMENDAREZ RN - 11/12/2016 9:51 CDT [facility] Document Id: [id number] CDT!24 Anderson Almendarez R.N. - 11/12/2016 9:32 AM CDT ED Nurse Reassess ED Nurse Reassess Entered On: 11/12/2016 9:38 CDT Performed On: 11/12/2016 9:32 CDT by ANDERSON ALMENDAREZ RN Pain Assessment Pain Symptoms : Yes Pain Medication Requested : No ANDERSON ALMENDAREZ RN - 11/12/2016 9:32 CDT Comfort Measures Comfort Measures Grid [place] Application : Yes Comfortable Environment : Yes Positioning : Yes Quiet Environment : Yes Relaxation : Yes Rest : Yes ANDERSON ALMENDAREZ RN - 11/12/2016 9:32 CDT Patient Response : To Xray per cart. Stable, states discomfort is in shoulder blade region only, andis steady at 2/10. Pt states this is tolerable, does not want anything more for pain at this time. ANDERSON ALMENDAREZ RN - 11/12/2016 9:32 CDT Resp Reassess Respiratory Patient Stated Symptoms : None Distress : None Airway : Patent Respiratory Pattern : Regular Respirations : Unlabored Cough : Other: pt states he has had a nagging cough for 10 years. ANDERSON ALMENDAREZ RN - 11/12/2016 9:32 CDT CV Reassess CV Patient Stated Symptoms : None Skin Color : Normal for ethnicity Skin Description : Dry Skin Temperature : Warm Nail Bed Color : [place] Capillary Refill : Less than 2 seconds Heart Rhythm : Regular Monitoring Lead : II Cardiac Rhythm : Sinus rhythm ANDERSON ALMENDAREZ RN - 11/12/2016 9:32 CDT Neuro Reassess Last Well Time Known : Not applicable Orientation : Oriented x 3 Characteristics of Speech : Clear Level of Consciousness : Alert Neuro Patient Stated Symptoms : None Gait : Steady Swallowing Difficulty/Aspiration Risk : None Facial Symmetry : Normal ANDERSON ALMENDAREZ RN - 11/12/2016 9:32 CDT GI Reassess GI Patient Stated Symptoms : None ANDERSON ALMENDAREZ RN - 11/12/2016 9:32 CDT /OB Reassess Patient Stated Symptoms : None ANDERSON ALMENDAREZ RN - 11/12/2016 9:32 CDT Integumentary Integumentary Patient Stated Symptoms : None Skin Turgor : Elastic Skin Integrity : Intact Mucous Membrane Color : [place] Mucous Membrane Description : Moist Skin Color : Normal for ethnicity Skin Description : Dry Skin Temperature : Warm ANDERSON ALMENDAREZ RN - 11/12/2016 9:32 CDT Musculoskeletal Reassess Standard Safety : Bed in low position, Call device within reach, ID band check ANDERSON ALMENDAREZ RN - 11/12/2016 9:32 CDT Source: [employer] Document Id: [id number] CDT!54 nAderson Almendarez R.N. - 11/12/2016 9:10 AM CDT ED Nurse Reassess ED Nurse Reassess Entered On: 11/12/2016 9:55 CDT Performed On: 11/12/2016 9:10 CDT by ANDERSON ALMENDAREZ RN Pain Assessment Pain Symptoms : Yes ANDERSON ALMENDAREZ RN - 11/12/2016 9:54 CDT Comfort Measures Comfort Measures Grid [place] Application : Yes Comfortable Environment : Yes Positioning : Yes Pressure Relief : Yes Quiet Environment : Yes Relaxation : Yes Rest : Yes ANDERSON ALMENDAREZ RN - 11/12/2016 9:54 CDT Patient Response : pt taken to Trauma bed one immediately. monitor technician applied, lab called, in for eval. Aspirin given. ANDERSON ALMENDAREZ RN - 11/12/2016 9:54 CDT Source: [employer] Document Id: [id number] CDT!13 Anderson Almendarez R.N. - 11/12/2016 9:04 AM CDT ED Primary Assessment Document Has Been Updated ED Primary Assessment Entered On: 11/12/2016 9:20 CDT Performed On: 11/12/2016 9:04 CDT by ANDERSON ALMENDAREZ RN Reason For Visit (As Of: 11/12/2016 09:57:13 CDT) Problems(Active) Body mass index (BMI) 40.0-44.9, adult (ICD-10-CM :Z68.41 ) Name of Problem: Body mass index (BMI) 40.0-44.9, adult ; Recorder: SYSTEM, SYSTEM; Confirmation: Confirmed ; Classification: Medical ; Code:Z68.41 ; Last Updated: 09/27/2016 11:31 CDT ; Life Cycle Date: 09/27/2016 ; Life Cycle Status: Active ; Vocabulary: ICD-10-CM ; Comments: 09/27/2016 11:31 - SYSTEM, SYSTEM Rule activated problem due toBMI 40-44 posted on 09/27 at 11:27 CDT. GERD [Gastroesophageal reflux disease] (ICD-9-CM :530.81 ) Name of Problem: GERD [Gastroesophageal reflux disease] ; Recorder: RUSS HILL MD; Confirmation: Confirmed ; Classification: Medical ; Code: 530.81 ; Contributor System: Cloneless ; Last Updated: 05/13/2012 15:34 [employer] ; Life Cycle Date: 05/13/2012 ; Life Cycle Status: Active ; Responsible Provider: RUSS HILL MD; Vocabulary: ICD-9-CM HTN [Hypertension] (ICD-9-CM :401.9 ) Name of Problem: HTN [Hypertension] ; Recorder: CHAPIS HILL MD; Confirmation: Confirmed ; Classification: Medical ; Code: 401.9 ; Contributor System: PowerChart ; Last Updated: 05/13/2012 15:34 [employer] ; Life Cycle Date: 05/13/2012 ; Life Cycle Status: Active ; Responsible Provider: RUSS HILL MD; Vocabulary: ICD-9-CM Hyperglycemia (ICD-9-CM :790.29 ) Name of Problem: Hyperglycemia ; Recorder: RUSS HILL MD; Confirmation: Confirmed ; Classification: Medical ; Code: 790.29 ; Contributor System: PowerChart ; Last Updated: 11/18/2013 12:51 CDT ; Life Cycle Status: Active ; Responsible Provider: RUSS HILL MD; Vocabulary: ICD-9-CM Hyperlipidemia NOS (ICD-9-CM :272.4 ) Name of Problem: Hyperlipidemia NOS ; Recorder: CHAPIS HILL MD; Confirmation: Confirmed ; Classification: Medical ; Code: 272.4 ; Contributor System: itsDapperChart ; Last Updated: 11/18/2013 12:50 CDT ; Life Cycle Status: Active ; Responsible Provider: RUSS HILL MD; Vocabulary: ICD-9-CM Diagnoses(Active) Chest pain Date: 11/12/2016 ; Diagnosis Type: Reason For Visit ; Confirmation: Complaint of ; Clinical Dx: Chest pain ; Classification: Medical ; Clinical Service: Emergency medicine ; Code: PNED ; Probability: 0 ; Diagnosis Code: [id number] Triage Chief Complaint Description : pt presents stating he had a sudden onset of left sided chest pain that was stabbing in nature, and it radiated to his back under his shoulder blades. No nausea, diaphoresis or lightheadedness. Currently pt only feeling discomfort in shoulder blades. 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 Mode of Arrival ED : Private vehicle Track : Medical Languages : [place] Vital Signs Assessed : Yes Treatments Prior to Arrival : Ibuprofen Is Patient Female and 13-50 no hysterectomy : No ANDERSON ALMENDAREZ RN - 11/12/2016 9:04 CDT Vital Signs Temperature Core : 36.6 DegC(Converted to: 97.9 DegF) Peripheral Pulse Rate : 98 /min Respiratory Rate : 16 /min Systolic Blood Pressure : 183 mmHg (>HHI) Diastolic Blood Pressure : 90 mmHg (HI) NIBP Mean : 121 mmHg BP Location : Left upper extremity SpO2 : 99 % Oxygen Saturation Monitoring Frequency : Continuous Oxygen Therapy : Room air Height : 185 cm(Converted to: 6 ft 1 inch(es)) Height Source : Stated Estimated Weight : 145 kg Estimated Weight Conversion to Pounds : 319 lb ANDERSON ALMENDAREZ RN - 11/12/2016 9:04 CDT Pain Assessment Pain Symptoms : Yes Pain Medication Requested : ANDERSON Donis RN 11/12/2016 9:04 CDT Pain Scale Pain Scale Verbal 0-10 : Open ANDERSON ALMENDAREZ NICOLE 11/12/2016 9:04 CDT Pain Pain Assessment Grid Pain 1 Location : Other: shoulder blades Laterality : Bilateral Intensity : 2 Time Pattern : Intermittent Onset : Sudden Quality : Sharp Pain Radiation : Yes (Comment: chest and shoulder blade area. [ANDERSON ALMENDAREZ NICOLE 11/12/2016 9:04 CDT] ) Aggravating Factors : Breathing Alleviating Factors : Other: bending over and touching his toes makes the pain go away. Associated Symptoms : Shortness of breath ANDERSON ALMENDAREZ NICOLE 11/12/2016 9:04 CDT DANII DANII Level 1 : No DANII Level 2 : No DANII Level 3 : One ANDERSON ALMENDAREZ NICOLE 11/12/2016 9:04 CDT DCP GENERIC CODE Tracking Group : MAQN ED Tracking Acuity : 3 -Urgent ANDERSON ALMENDAREZ NICOLE 11/12/2016 9:04 CDT Allergy Latex Reaction : No Latex Hives/Itch : No Latex Congestion/Eye Irr/Breathing : No Latex Symptom Progression : No Latex Previous Test : No GABRIEL ALMENDAREZJosue RIVERA 11/12/2016 9:04 CDT (As Of: 11/12/2016 09:20:21 CDT) Allergies (Active) NKA Estimated Onset Date: Unspecified ; Created By: WILMER GAONA LPN; Reaction Status: Active ; Category: Drug ; Substance: NKA ; Type: Allergy ; Updated By: WILMER GAONA LPN; Reviewed Date: 09/27/2016 11:26 CDT ID Screen Drug Resistant Organism : No Travel Within Last 21 Days : No Contact with someone with Ebola : No GABRIEL ALMENDAREZJosue RIVERA 11/12/2016 9:04 CDT TB Symptoms Grid Bloody Sputum : No Fatigue : No Fever : No Loss of Appetite : No Night Sweats : No Persistent Cough Greater Than 3 Weeks : No Weight Loss : No GABRIEL ALMENDAREZJosue RIVERA 11/12/2016 9:04 CDT Immunizations Immunizations Current : No GABRIEL ALMENDAREZJosue RIVERA 11/12/2016 9:04 CDT Last Tetanus : < 5 years TANESHAANDERSON HENSLEY RN 11/12/2016 9:57 CDT Pneumovac : None Influenza : None ANDERSON ALMENDAREZ RN - 11/12/2016 9:04 CDT Respiratory Airway : Patent Respirations : Unlabored Respiratory Pattern : Regular ANDERSON ALMENDAREZ RN - 11/12/2016 9:04 CDT Cardiovascular Heart Rhythm : Regular Skin Color : Normal for ethnicity Skin Description : Dry Skin Temperature : Warm Cardiovascular Detailed Assessment : Yes Monitoring Lead : II Monitoring Lead Atm Manager : Initiated ANDERSON ALMENDAREZ RN - 11/12/2016 9:04 CDT CV Detailed CV Patient Stated Symptoms : Chest pain Nail Bed Color : [place] Capillary Refill : Less than 2 seconds Cardiac Rhythm : Sinus rhythm Ectopy Frequency : None ANDERSON ALMENDAREZ RN - 11/12/2016 9:04 CDT Neurological Last Well Time Known : Not applicable Level of Consciousness : Alert Orientation : Oriented x 3 Characteristics of Speech : Clear Neuro Patient Stated Symptoms : None Gait : Steady Swallowing Difficulty/Aspiration Risk : None Loss of Consciousness : No ANDERSON ALMENDAREZ RN - 11/12/2016 9:04 CDT ED Psychosocial Affect/Behavior : Calm, Cooperative Domestic Abuse Concerns : None Behavioral Health Screen/Safety Assmt : No Emotional Support Available : Yes ANDERSON ALMENDAREZ RN - 11/12/2016 9:04 CDT Gastrointestinal Nutrition ED : Adequate ANDERSON ALMENDAREZ RN - 11/12/2016 9:04 CDT Musculoskeletal Fall Prevention Education Provided : Yes ANDERSON ALMENDAREZ RN - 11/12/2016 9:04 CDT Social Habits Exposure to Tobacco Smoke : Other: former smoker Smoking Status : Former smoker Tobacco 2A : Yes Tobacco Use/Currently Using : No Tobacco Use/Last 30 Days : No Tobacco Use/Last 12 months : No ANDERSON ALMENDAREZ RN - 11/12/2016 9:04 CDT Peripheral IV Peripheral IV Assess/Intervention Grid Peripheral IV #1 IV Activity : Start Number of Attempts : 2 Date of Insertion : 11/12/2016 CDT IV Site : Hand Laterality : Right Catheter Size : 18 Catheter Type : Over the needle Site Condition : No complications Drainage Description : None ANDERSON ALMENDAREZ RN - 11/12/2016 9:04 CDT Source: [facility] [employer] Document Id: [id number] CDT!3 documented in this encounter Miscellaneous Notes Miscellaneous - Anderson Almendarez R.N. - 11/12/2016 5:50 PM CDT Valuables/Belongings Valuables/Belongings Entered On: 11/12/2016 17:50 CDT Performed On: 11/12/2016 17:50 CDT by ANDERSON ALMENDAREZ RN Valuables/Belongings Valuables/Belongings Grid Valuables with Patient Clothes, Patient Valuables : Pants, Shirt, Shoes, Undergarments Electronic Devices : Cell phone ANDERSON ALMENDAREZ RN - 11/12/2016 17:50 CDT Source: [employer] Document Id: [id number] CDT!6 Miscellaneous - Conversion, Historical Provider Ser - 11/12/2016 12:10 PM CDT Coding Summary-Paper Based CODING DATE: 11/21/2016 FINAL [facility] STATUS: * Discharged to Home or Self Care PAYOR: [facility] ADMIT DX: R07.89 Other chest pain REASON FOR VISIT DX: R07.89 Other chest pain FINAL DX: PRINCIPAL: R07.89 Other chest pain SECONDARY: F41.9 Anxiety disorder, unspecified Z87.891 Personal history of nicotine dependence PROCEDURES DOCTOR NAME DATE NOTE: The code number assigned matches the documented diagnosis and / or procedure in the patient's chart. However, the narrative phrase printed from the coding software may appear abbreviated, or result in slightly different terminology. Coded By: JACK LECHUGA Date Saved: 11/21/2016 10:18 am Source: [employer] Document Id: [id number] documented in this encounter Plan of Treatment Upcoming Encounters Date Type Specialty Care Team Description 02/15/2022 Office Visit Orthopedic Surgery Madyson Rosa, D.O. [address] [place], [place] [phone] (Wo rk) documented as of this encounter Procedures Procedure Name Priority Date/Time Associated Comments Diagnosis TROPONIN T, 5TH GEN, Routine 11/12/2016 10:51 Res ults for this P AM CDT procedure are i n the results section. DX CHEST AP OR PA AND Routine 11/12/2016 9:36 AM Results for this LATERAL 2 VIEWS CDT procedure ar e in the results section. HEPATIC FUNCTION Routine 11/12/2016 9:16 AM Resul ts for this PANEL, S CDT procedure are i n the results section. AUTOMATED Routine 11/12/2016 9:16 AM Results f or this DIFFERENTIAL, B CDT procedure ar e in the results section. PROTHROMBIN TIME Routine 11/12/2016 9:16 AM Resul ts for this (PT), P CDT procedure are i n the results section. D-DIMER, P Routine 11/12/2016 9:16 AM Results f or this CDT procedure are i n the results section. CBC WITH Routine 11/12/2016 9:16 AM Results f or this DIFFERENTIAL, B CDT procedure ar e in the results section. LIPASE, S/P Routine 11/12/2016 9:16 AM Results f or this CDT procedure are i n the results section. BASIC METABOLIC Routine 11/12/2016 9:16 AM Result s for this PANEL, S/P CDT procedure are i n the results section. TROPONIN T, 5TH GEN, Routine 11/12/2016 9:15 AM R esults for this P CDT procedure are i n the results section. ECG Routine 11/12/2016 9:07 AM Results f or this CDT procedure are i n the results section. documented in this encounter Results Troponin T (11/12/2016 10:51 AM CDT) P athologist Signature Troponin T, S <0.010 <=0.010 POWERCHART NGML Comment: Values > or = 0.01 ng/mL have been shown to have prognostic value. Biotin has been identified by the [facility] cturer as a potential interfering substance. Higher concentrations of biotin may be found in multivitamins, hair/nail supplements, and workout supplements. If the result does not match clinical observat ions, repeat testing after patient refrains from the use of supplements for at least 12 hours. Specimen (Source) Anatomical Collection Method Collection Time Re ceived Time Location / / Volume Laterality Blood 11/12/2016 10:51 AM CDT Nathan Gabriel M.D. LAB BLOOD ADD-ON Performing Organization Address City/State/ZIP Code Phon e Number POWERCHART POWERCHART NA DX Chest AP or PA and Lateral 2 Views (11/12/2016 9:36 AM CDT) Anatomical Region Laterality Modality Chest N/A Radiographic Imaging Specimen (Source) Anatomical Collection Method Collection Time Re ceived Time Location / / Volume Laterality 11/12/2016 9:36 AM CDT Addenda Addendum by Alan Feliciano M.D. o n 11/12/2016 9:36 AM CDT RAD^^^MA XR Chest 2 Views 11/12/2016 09:36:43 XR Chest 2 Views Addendum by Alan Feliciano M.D. o n 11/12/2016 9:36 AM CDT RAD^^^MA XR Chest 2 Views 11/12/2016 09:36:43 XR Chest 2 Views Impressions 11/12/2016 9:43 AM CDT Negative chest for active disease. Narrative 11/12/2016 9:43 AM CDT EXAM: XR Chest 2 Views INDICATION: Chest pain COMPARISON: None. ?? FINDINGS: Heart and great vessels are no rmal and there is no indication of an active infiltrate in ei ther lung field. No pleural fluid is present. Bony structures are normal with modest d egenerative change in the mid to lower thoracic spine. Procedure Note Rachel Robertson / Alan Feliciano M. D. - 01/03/2017 EXAM: XR Chest 2 Views INDICATION: Chest pain COMPARISON: None. FINDINGS: Heart and great vessels are no rmal and there is no indication of an active infiltrate in ei ther lung field. No pleural fluid is present. Bony structures are normal with modest d egenerative change in the mid to lower thoracic spine. IMPRESSION: Negative chest for active di sease. Baljeet Saunders R.T.(R)(CT), R.T.(R) IMG DIAGNOSTIC IM AGING PROCEDURES Automated Differential (11/12/2016 9:16 AM CDT) P athologist Signature Absolute 5.61 1.70 - POWERCHART Neutrophils 7.00 109L Lymphocytes 1.62 0.90 - POWERCHART 2.90 X109L Monocytes 0.63 0.30 - POWERCHART 0.90 X109L Eosinophils 0.13 0.05 - POWERCHART 0.50 X109L Absolute 0.02 0.00 - POWERCHART Basophil 0.30 X109L Specimen Anatomical Collection Method Collection Time Receive d Time (Source) Location / / Volume Laterality Blood 11/12/2016 9:16 AM 7 9:16 CDT AM CDT Nathan Gabriel M.D. LAB BLOOD ADD-ON Performing Organization Address City/State/ZIP Code Phon e Number POWERCHART POWERCHART NA CBC with Differential (11/12/2016 9:16 AM CDT) P athologist Signature Leukocytes 8.0 3.5 - 10.5 POWERCHART X109L Erythrocytes 4.44 4.32 - POWERCHART 5.72 R2340N Hemoglobin 14.1 13.5 - POWERCHART 17.5 GDL Hematocrit 41.4 38.8 - POWERCHART 50.0 MCV 93.2 81.2 - POWERCHART 95.1 FL HX RDW 12.8 11.8 - POWERCHART 15.6 Platelet Count 200 150 - 450 POWERCHART X109L HXDifferential? Auto POWERCHART Specimen (Source) Anatomical Collection Method Collection Time Re ceived Time Location / / Volume Laterality Blood 11/12/2016 9:16 AM CDT Nathan Gabriel M.D. LAB BLOOD ADD-ON Performing Organization Address City/[facility]/ZIP Code Phon e Number POWERCHART POWERCHART NA D-Dimer (11/12/2016 9:16 AM CDT) P athologist Signature D-Dimer, P 0.48 <=0.49 POWERCHART [id number] Specimen Anatomical Collection Method Collection Time Receive d Time (Source) Location / / Volume Laterality Blood 11/12/2016 9:16 AM 7 9:20 CDT AM CDT Nathan Gabriel M.D. LAB BLOOD ADD-ON Performing Organization Address City/State/ZIP Code Phon e Number POWERCHART POWERCHART NA PT (Prothrombin Time) with INR (11/12/2016 9:16 AM CDT) Analysis Performed At Patho logist Time Signature Prothrombin 9.3 8.8 - 11.9 POWERCHART Time, P SECONDS INR 1.0 0.9 - 1.2 POWERCHART INR Comment: Recommended INR for prophylaxis/treatmen t of Venous Thrombosis, Pulmonary Embolism, Myocardial Infarction, and Embolism from Atrial Fibrillation is 2.0- 3.0 (Standard Therapy) Recommended INR for Mechanical Heart Lydia ves and recurrent Systemic Embolism is 2.5-3.5 (Intensive Therapy) Specimen (Source) Anatomical Collection Method Collection Time Re ceived Time Location / / Volume Laterality Blood 11/12/2016 9:16 AM CDT Nathan Gabriel M.D. LAB BLOOD ADD-ON Performing Organization Address City/[facility] Code Phon e Number POWERCHART POWERCHART NA Lipase (11/12/2016 9:16 AM CDT) athologist Signature Lipase, S 26 13 - 60 UL POWERCHART Comment: Reference ranges have not been established for patients that are less than 16 years of age Specimen (Source) Anatomical Collection Method Collection Time Re ceived Time Location / / Volume Laterality Blood 11/12/2016 9:16 AM CDT Nathan Gabriel M.D. LAB BLOOD ADD-ON Performing Organization Address City/[facility] Phon e Number POWERCHART POWERCHART NA Hepatic Function Panel (11/12/2016 9:16 AM CDT) [employer] Method Time Signature Alanine 50 7 - 55 UL POWERCHART Amniotransferase, LD Albumin, S 4.2 3.5 - 5.2 POWERCHART GDL Alkaline 70 40 - 130 POWERCHART Phosphatase, S UL Aspartate 37 8 - 48 UL POWERCHART Aminotransferase (AST), S Bilirubin, Direct, S 0.2 0.0 - 0.3 POWERCHAR T MGDL Bilirubin, Total, S 0.7 <=1.2 POWERCHART MGDL Total Protein, S 6.7 6.3 - 7.9 POWERCHART GDL Specimen (Source) Anatomical Collection Method Collection Time Re ceived Time Location / / Volume Laterality Blood 11/12/2016 9:16 AM CDT Nathan Gabriel M.D. LAB BLOOD ADD-ON Performing Organization Address City/[facility] Code Phon e Number POWERCHART POWERCHART NA (ABNORMAL) BMP (Basic Metabolic Panel) (11/12/2016 9:16 AM CDT) Patholo gist Method Time Signature Sodium, S 134 (L) 135 - 145 POWERCHART MMOLL Potassium, S 4.2 3.5 - 5.1 POWERCHART MMOLL Chloride, S 95 (L) 98 - 107 POWERCHART MMOLL CO2 Total 28 22 - 29 POWERCHART MMOLL BUN (Blood Urea 19 6 - 24 MGDL POWERCHART Nitrogen), S Creatinine 1.0 0.8 - 1.3 POWERCHART MGDL Calcium, Total, 9.0 8.6 - 10.3 POWERCHART S MGDL Anion Gap 11 7 - 15 MMOLL POWERCHART HXeGFR (MDRD) >60.0 >=60.0 POWERCHART MLMINSA eGFR >60.0 >=60.0 POWERCHART Black/ MLMINSA [place] Glucose 135 70 - 140 POWERCHART MGDL Specimen (Source) Anatomical Collection Method Collection Time Re ceived Time Location / / Volume Laterality Blood 11/12/2016 9:16 AM CDT Nathan Gabriel M.D. LAB BLOOD ADD-ON Performing Organization Address City/State/ZIP Code Phon e Number POWERCHART POWERCHART NA Troponin T (11/12/2016 9:15 AM CDT) P athologist Signature Troponin T, S <0.010 <=0.010 POWERCHART NGML Comment: Values > or = 0.01 ng/mL have been shown to have prognostic value. Biotin has been identified by the [facility] as a potential interfering substance. Higher concentrations of biotin may be found in multivitamins, hair/nail supplements, and workout supplements. If the result does not match clinical observat ions, repeat testing after patient refrains from the use of supplements for at least 12 hours. Specimen (Source) Anatomical Collection Method Collection Time Re ceived Time Location / / Volume Laterality Blood 11/12/2016 9:15 AM CDT Nathan Gabriel M.D. LAB BLOOD ADD-ON Performing Organization Address City/State/ZIP Code Phon e Number POWERCHART POWERCHART NA ECG 12 Lead (11/12/2016 9:07 AM CDT) Specimen (Source) Anatomical Collection Method Collection Time Re ceived Time Location / / Volume Laterality 11/12/2016 9:07 AM CDT [facility] SYSTEM - 11/12/2016 9:07 AM CDT Test Reason : CHEST PAIN Blood Pressure : / mmHG Vent. Rate : 093 BPM ? Atrial Rate : 093 BPM ?? P-R Int : 194 ms ?QRS D ur : 088 ms ?QT Int : 352 ms ? P-R-T Axe s : 054 -01 002 degrees ?? QTc Int : 437 ms Normal sinus rhythm Normal ECG When compared with ECG of 27-SEP-2016 11 :22, Criteria for Left ventricular hypertroph y are no longer present Referred By: NATHAN GABRIEL ? Confirmed By:BRYON GUERRERO MD Procedure Note Provider, Paula Phillips - 01/01/2017F ormatting of this note might be different from the original. Test Reason : CHEST PAIN Blood Pressure : / mmHG Vent. Rate : 093 BPM Atrial Rate : 093 B PM P-R Int : 194 ms QRS Dur : 088 ms QT Int : 352 ms P-R-T Axes : 054 -01 00 2 degrees QTc Int : 437 ms Normal sinus rhythm Normal ECG When compared with ECG of 27-SEP-2016 11 :22, Criteria for Left ventricular hypertroph y are no longer present Referred By: NATHAN GABRIEL Confirmed By:Keyshawn GUERRERO MD Bryon Guerrero M.D., M.B. ECG ORDERABLES Performing Organization Address City/State/ZIP Code Phon e Number [facility] [address] [place] [id number] documented in this encounter Visit Diagnoses Not on filedocumented in this encounter Care Teams Hide Buyer Relationship Specialty Start Date End Date Norma Solis, INGREDIENT MIXER, C.N.P. PCP - General 09/12/[address] [place] [address] documented as of this encounter
--- OUTSIDE RECORDS SUMMARY | 2022-01-25 11:41 | XMS_ITS | Encounter Summary ---
:1965 Author Organization [facility] Address [address] [place] [address] Care Team Providers Name Role Phone Norma Kenny APRN, C.NGregg Primary Care Provider [phone] Reason for Visit Reason Comments Med Refill Atorvastatin Encounter Details Date Type Department Care Team Description 03/06/2017 Refill Department of Family Karina Randle M ed Refill (Atorvastatin Medicine in [facility] ) [place] [address] [place] [phone] [phone] Social History Tobacco Use Types Packs/Day Years [...] How often do you attend mandaen or jehovah's witness More than 4 time [...] at Date 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 - 03/06/2017 9:37 AM CHORAL TEACHER Last refilled 12/05/16 #30 Last OV 09/27/16, 03/15/16 preop px Last Lipid 03/15/16 No Future appt AL TEACHER documented in this encounter Plan of Treatment Upcoming Encounters Date Type Specialty Care Team Description 02/15/2022 Office Visit Orthopedic Surgery Madyson Rosa, D.ONikhil [address] [place], [place] [address] (Wo rk) documented as of this encounter Visit Diagnoses Not on filedocumented in this encounter Care Teams Director Medical Safety Relationship Specialty Start Date End Date Norma Kenny APRN, C.N.P. PCP - General 09/12/[address] [place] [phone] documented as of this encounter
--- OUTSIDE RECORDS SUMMARY | 2022-01-25 11:41 | XMS_ITS | Encounter Summary ---
:1965 Author Organization [facility] Address [address] [place] [address] Care Team Providers Name Role Phone Norma Kenny APRN C.N.P. Primary Care Provider [phone] Encounter Details Date Type Department Care Team Description 12/22/2017 Hospital Encounter Department of Radiology, [place], [facility], in STEVEN, C.N. P., R.N. 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 30-60 minutes prior to sexual activity. atorvastatin (for_LIPITOR) Take 1 tablet (20 90 tablet 3 09/07/2018 20 mg tabletIndications: mg total) by mouth Hyperlipidemia at bedtime. Patient is due to yearly labs cyclobenzaprine (FLEXERIL) Take 1 tablet (5 20 tablet 0 09/17/2018 5 mg tabletIndications: mg total) by mouth Pain Shoulder Left 3 (three) times a day as needed for muscle spasms. lisinopril-hydroCHLOROthiaz Take 1 tablet by 90 tablet 3 04/30/2018 madeline mouth daily. (for_PRINZIDE,ZESTORETIC) 20-25 mg per tabletIndications: Hypertension Essential Primary metoprolol succinate Take 1 tablet (25 90 tablet 0 06/10/19 18 04/30/2018 (for_TOPROL-XL) 25 mg 24 hr mg total) by mouth tablet daily. pantoprazole (PROTONIX) 40 Take 1 tablet (40 30 tablet 3 09/17/2018 mg EC tabletIndications: mg total) by mouth Gastroesophageal Reflux as needed for Disease heartburn. documented as of this encounter Plan of Treatment Upcoming Encounters Date Type Specialty Care Team Description 02/15/2022 Office Visit Orthopedic Surgery Madyson Rosa, DNikhilO. [address] [place], [place] [phone] (Wo rk) documented as of this encounter Procedures Procedure Name Priority Date/Time Associated Comments Diagnosis DX SHOULDER LEFT RAD - Routine 12/22/2017 5:35 Pain Shoulder Result s for this 2+ VIEWS (most inpatients PM CDT Left procedure a re in and all the results outpatients) section. documented in this encounter Results DX Shoulder Left 2+ Views (12/22/2017 5:35 PM CDT) Anatomical Region Laterality Modality Upper Extremity, Shoulder, Musculoskeletal RST LOS, Left Computed Radiography Musculoskeletal ARZ LOS, Muskuloskeletal FLA LOS Specimen (Source) Anatomical Collection Method Collection Time Re ceived Time Location / / Volume Laterality 12/22/2017 5:45 PM CDT Impressions 12/22/2017 5:46 PM CDT IMPRESSION: No acute injury. Mild acromi oclavicular joint separation. Narrative 12/22/2017 5:46 PM CDT EXAM: DX SHOULDER LEFT 2+ VIEWS COMPARISON: None FINDINGS: There is mild widening of the acromioclavicular joints at 9 mm. There is minimal subchondral change within the glenoid. The glenohumeral joint is otherwise well aligned. There is no martinez ical lucency to suggest fracture. Left upper thorax is within normal limits. Procedure Note José Miguel Bach M.D. - 12/22/2017Fo rmatting of this note might be different from the original. EXAM: DX SHOULDER LEFT 2+ VIEWS COMPARISON: None FINDINGS: There is mild widening of the acromioclavicular joints at 9 mm. There is minimal subchondral change within the glenoid. The glenohumeral joint is otherwise well aligned. There is no martinez ical lucency to suggest fracture. Left upper thorax is within normal limits. IMPRESSION: No acute injury. Mild acromi oclavicular joint separation. Ame Beal APRN, C.N.P., R.N. IMG DIAGNOSTIC IMAGI NG PROCEDURES documented in this encounter Visit Diagnoses Not on filedocumented in this encounter Additional Health Concerns Assessment Noted Time PHQ-9 Depression Total Score: 4 07/11/2017 8:29 AM CDT documented as of this encounter Care Teams Ice House Supervisor Relationship Specialty Start Date End Date Norma Kenny APRN, C.N.P. PCP - General 09/12/[address] [place] [address] documented as of this encounter
--- OUTSIDE RECORDS SUMMARY | 2022-01-25 11:41 | XMS_ITS | Encounter Summary ---
:1965 Author Organization [facility] Address [address] [place] [address] Care Team Providers Name Role Phone Norma Kenny APRN, C.N.P. Primary Care Provider [phone] Reason for Visit Reason Comments Follow-up back and shoulder Outpatient (Routine) - Closed Specialty Diagnoses / Procedures Referred By Contact Refer red To Contact Family Medicine Diagnoses Pain Shoulder Left Pain Thoracic Spine FAM [facility] Ame Beal APRN, [facility] C.N.P., R.N. [address] [facility], [address] [place] [address] Referral ID Status Reason Start Date Expiration Date Visits Requ ested Visits Authorized [id number] Closed 12/15/2017 12/15/2018 1 1 Encounter Details Date Type Department Care Team Description 12/22/2017 Office Visit Department of Ame Barnes Nee d Vaccine Immunization (Primary Dx); Medicine in [facility] STEVEN, C.N.P., Pain Should er Left; [place], [place] R.N. 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 - 12/22/2017 4:30 PM CDT SUBJECTIVE CHIEF COMPLAINT: Chief Complaint Patient presents with ??? Follow-up back and shoulder HISTORY OF PRESENT ILLNESS: Saad Murray is a 52 y.o. male who presents for follow up left shoulder/upper back pain. Noticed no change after the prednisone or flexeril started a week ago. Sleep is still interrupted. In certain positions such as laying on right side, both hand will go numb. Please see dictation from 12/15/17 for details. Brings up sleep concerns. Goes to bed around 2200 and will wake at 0330 or 0400 feeling rested and ready to go for the day. He does snore, but denies apnea. Will not fall asleep watching T.V. And does not feel tired during the day. Tries to go back to sleep, but unable. Was on Ambien in the distant past to help get more sleep. Denies problems with anxiety at night. Brings up difficulty getting and maintaining an erection. He is dating again after 28 years and losing his to cancer almost 2 years ago. Is in a new relationship. Admits there is some anxiety at the newness and erections could be better. Wonders about viagra. Up to date on preventative screenings. MEDICATIONS: Current Outpatient Prescriptions: ??? atorvastatin (for_LIPITOR) [...] for heartburn., Disp: 30 tablet, Rfl: 3 ALLERGIES: No Known Allergies REVIEW OF SYSTEMS: Per HPI. All others negative at this time. PROBLEM LIST: Patient Active Problem List Diagnosis ??? Hypertension ??? Body Mass Index 40.0 To 44.9 Adult (HCC) ??? Hypercholesterolemia ??? Gastroesophageal Reflux Disease SOCIAL HISTORY: Social History Substance Use Topics ??? Smoking status: Former Smoker ??? Smokeless tobacco: Never Used Comment: Quit in 20s. ??? Alcohol use Yes Comment: Limits to weekends; Drinks beer or mixed drinks. OBJECTIVE VITAL SIGNS: BP 132/78 Pulse 92 Temp 37 ??C (Temporal) Wt 136 kg SpO2 95% BMI 40.18 kg/m?? PHYSICAL EXAM: General: Patient is alert, oriented. In no acute distress. Skin: Warm and dry. HEENT: Head normocephalic. Conjunctivae clear. Musculoskeletal: Normal gait and posture. Left shoulder active range of motion limited to 90?? abduction. No tenderness to left acromioclavicular joint. Tenderness along the superior scapular border has resolved. No obvious swelling, tension, or skin changes. Area of point tenderness just inferior to left lateral scapular spine has significantly improved. The numbness he indicates it is more just superior to the left scapular spine with tenderness just inferior to the central left scapular spine. Mild intermittent tenderness in the left anterior glenohumeral joint or left upper arm. Empty can test positive for pain to the left. No tenderness to cervical or upper thoracic spine. ASSESSMENT / PLAN 1. Pain Shoulder Left Will notify of results and adjust treatment plan accordingly. See EMR for details. If normal, will consider MRI of the cervical spine. - Family Medicine office visit (clinic) - DX Shoulder Left 2+ Views; Future - DX Shoulder Left 2+ Views 2. Dysfunction Erectile Discussed side effects and possible interaction with alcohol. He is up-to-date on health maintenanceand evaluation to rule out other causes. Reassured patient that it could partly be secondary to an emotional barrier, but certainly will not hurt try the medication. - sildenafil (VIAGRA) 50 mg tablet; Take 1 tablet (50 mg total) by mouth daily as needed for erectile dysfunction. 30-60 minutes prior to sexual activity. Dispense: 6 tablet; Refill: 1 3. Sleep Disorder Advised that do not feel Ambien is indicated at this point. He wakes feeling rested despite only 5.5to 6 hr of sleep. No apneic symptoms. Discussed sleep hygiene. Influenza vaccine administered. Patient tolerated. All questions answered. Patient stated understanding and agreement with current plan. documented in this encounter Plan of Treatment Upcoming Encounters Date Type Specialty Care Team Description 02/15/2022 Office Visit Orthopedic Surgery Madyson Rosa D.ONikhil [address] [place], [place] [phone] (Wo rk) documented as [...] documented in this encounter Visit Diagnoses Diagnosis Need Vaccine Immunization - Primary Pain Shoulder Left Dysfunction Erectile Sleep Disorder documented in this encounter Additional Health Concerns Assessment Noted Time PHQ-9 Depression Total Score: 4 07/11/2017 8:29 AM CDT documented as of this encounter Care Teams Head Piece Assembler Relationship Specialty Start Date End Date Norma Kenny APRN, C.N.P. PCP - General 09/12/[address] [place] [address] documented as of this encounter
--- OUTSIDE RECORDS SUMMARY | 2022-01-25 11:41 | XMS_ITS | Encounter Summary ---
:1965 Author Organization [facility] Address [address] [place] [address] Care Team Providers Name Role Phone Norma Kenny APRN C.N.P. Primary Care Provider [phone] Reason for Referral Outpatient (Routine) - Closed Specialty Diagnoses / Procedures Referred By Contact Refer red To Contact Family Medicine Diagnoses Pain Shoulder Left Pain Thoracic Spine FAM [facility] C.[facility] R.N. [address] [facility], [facility] [address] [place] [address] Referral ID Status Reason Start Date Expiration Date Visits Requ ested Visits Authorized [id number] Closed 12/15/2017 12/15/2018 1 1 Reason for Visit Reason Comments Shoulder Pain Appointment Request (Routine) - Closed Specialty Diagnoses / Procedures Referred By Contact Refer red To Contact Family Medicine Referral ID Status Reason Start Date Expiration Date Visits Requ ested Visits Authorized [id number] Closed 12/15/2017 12/15/2018 1 1 Encounter Details Date Type Department Care Team Description 12/15/2017 Office Visit Department of Ame Barnes Pai n Shoulder Left (Primary Dx); Medicine in [facility] STEVEN, C.N.P., Pain Thorac ic Spine [place], [place] R.N. 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 - 12/15/2017 1:30 PM CDT SUBJECTIVE CHIEF COMPLAINT: Chief Complaint Patient presents with ??? Shoulder Pain HISTORY OF PRESENT ILLNESS: Saad Murray is a 52 y.o. male who presents for left upper back and shoulder pain that actually started 1-2 years ago and has been lingering. It has continued to worsen to the point it was severe at work last week. It is interrupting his sleep. He only finds relief if he flexes at the hips andlets his left arm hang or sleeping on the right side with left arm across his body. Recently he applied ice pack to the left upper back region of pain, it burned for 10 min, then symptoms slightly improved. He does have an area of numbness to that site now. Right-hand dominant. 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 History of cortisone shot 20 years ago which helped, but unsure which shoulder. Denies known injury. Pain does radiate to the posterior left upper arm at times. Tried ibuprofen 800 mg every 6 hr, but that no longer helps. Has been using ibuprofen at bedtime. MEDICATIONS: Current Outpatient Prescriptions: ??? atorvastatin (for_LIPITOR) 20 mg tablet, Take 1 tablet (20 mg total) by mouth at bedtime. Patient is due to yearly labs, Disp: 90 tablet, Rfl: 3 ??? lisinopril-hydroCHLOROthiazide (for_PRINZIDE,ZESTORETIC) 20-25 mg per tablet, [...] or mixed drinks. OBJECTIVE VITAL SIGNS: BP 142/82 (BP Location: Right arm, Patient Position: Sitting, Cuff Size: Large) Pulse 88 Temp 36.3 ??C (Temporal) Resp 20 Ht 184 cm Wt (!) 136.5 kg SpO2 97% BMI 40.31 kg/m?? PHYSICAL EXAM: General: Patient is alert, oriented. In no acute distress. Skin: Warm and dry. HEENT: Head normocephalic. Conjunctivae clear. Extremities: Left radial pulse 2 +. CSM intact to all 5 left fingers. Musculoskeletal: Normal gait and posture. Right shoulder and upper back exam within normal limits. Left shoulder active range of motion limited to 90?? abduction. Pain with internal and external rotation, but able to complete the movement. Mild tenderness to left acromioclavicular joint. Severe tenderness along the superior scapular border to the point patient jumped and withdrew from pain. No obvious swelling, tension, or skin changes. Area of point tenderness just inferior to left lateral scapularspine. This area is also superficially numb. No tenderness in the left glenohumeral joint or left upper arm. Bilateral upper extremities strong and equal to abduction. ASSESSMENT / PLAN Diagnosis Plan 1. Pain Shoulder Left predniSONE (DELTASONE) 20 mg tablet cyclobenzaprine (FLEXERIL) 5 mg tablet Family Medicine office visit (clinic) 2. Pain Thoracic Spine predniSONE (DELTASONE) 20 mg tablet Family Medicine office visit (clinic) Will try prednisone 40 mg daily for 5 days in addition to Flexeril 5 mg 3 times daily as needed for muscle pain. Did warn of prednisone and Flexeril side effects. Advised against driving after the Flexeril and mixing with alcohol or any other substance causing sleepiness. He is already modifying activities. Will have him follow up in 1 week or as needed prior to that should concerns develop. If symptoms have not improved would consider x-ray of the cervical and thoracic spine to rule out radiculopathy as well as possibly left shoulder for AC joint issue. He also brings up difficulty sleeping which he would like to discuss at next visit. History of Ambien use. Open to other options. Will recheck blood pressure at next visit. All questions answered. Patient stated understanding and agreement with current plan. documented in this encounter Plan of Treatment Upcoming Encounters Date Type Specialty Care Team Description 02/15/2022 Office Visit Orthopedic Surgery Madyson Rosa D.ONikhil [address] [place], [place] [phone] (Wo rk) Scheduled Referrals Name Type Priority Associated Diagnoses [facility] Outpatient Referral Routine Pain Shoulde r Left Expected: office visit Pain Thoracic Spine 12/23/19 18 (clinic) (Approximate), Expires: 12/15/2020 documented as of this encounter Visit Diagnoses Diagnosis Pain Shoulder Left - Primary Pain Thoracic Spine documented in this encounter Additional Health Concerns Assessment Noted Time PHQ-9 Depression Total Score: 4 07/11/2017 8:29 AM CDT documented as of this encounter Care Teams Rn Clinical Relationship Specialty Start Date End Date Norma Kenny APRN, C.N.P. PCP - General 09/12/[address] [place] [phone] documented as of this encounter
--- OUTSIDE RECORDS SUMMARY | 2022-01-25 11:41 | XMS_ITS | Encounter Summary ---
:1965 Author Organization [facility] Address [address] [place] [address] Care Team Providers Name Role Phone Norma Kenny APRN, C.NNikhilPNikhil Primary Care Provider [phone] Encounter Details Date Type Department Care Team Description 03/16/2018 Clinical Communication Department of [facility] Artie Butler ae, Medicine in [place], [place] [phone] [place] [address] (Work) [place] [phone] Social History Tobacco Use Types Packs/Day Years [...] or relatives? How often do you attend mormon or caodaism More than 4 time s per year 09/17/2018 services? 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 - 03/18/2018 9:43 AM CST Patient scheduled for MRI on 03/20, patient notified RX sent to [facility]. GRADE BULLDOZER OPERATOR Telephone Encounter - Moira Butler C.M.A. - 03/16/2018 4:54 PM CST Patient notified and verbalized understanding. He would like RX faxed to [facility]. He states apptsavailable were , Fri and Friday, he is not scheduled yet. GRADE BULLDOZER OPERATOR Telephone Encounter - Ame Beal APRN, C.N.PNikhil - 03/16/2018 4:49 PM FINE GRADE BULLDOZER OPERATOR Will prescribe lorazepam. He may take half tab 1 hr prior to the procedure. If no effect in 30 min, may take a 2nd. Advised against taking this along with his pain medications as both can cause sleepiness and respiratory depression. Agree with having a local owner operator truck driver. Another option would be the open MRI at [facility] in [place]. I am happy to place order if he needs it. Prescription signed and ready. Thanks, HAO GRADE BULLDOZER OPERATOR Telephone Encounter - Moira Butler C.M.A. - 03/16/2018 3:46 PM CST Patient called regarding MRI. He tried to have it done in [place] today, patient did not fit in machine and did get anxiety/claustrophobia. He is rescheduling for [place], will have a local owner operator truck driver and is requesting a medication to help him relax during exam. He would like it sent to [facility] in [place], confirmed no allergies to medication. GRADE BULLDOZER OPERATOR documented in this encounter Plan of Treatment Upcoming Encounters Date Type Specialty Care Team Description 02/15/2022 Office Visit Orthopedic Surgery Madyson Rosa, DaydayONikhil [address] [facility] [place] [phone] (Wo rk) documented as of this encounter Visit Diagnoses Diagnosis Other Situational Type Phobia - Primary documented in this encounter Additional Health Concerns Assessment Noted Time PHQ-9 Depression Total Score: 4 07/11/2017 8:29 AM CDT documented as of this encounter Care Teams Corner Former Relationship Specialty Start Date End Date Norma Kenny APRN, C.N.P. PCP - General 09/12/[address] [place] [facility] [address] documented as of this encounter
--- OUTSIDE RECORDS SUMMARY | 2022-01-25 11:41 | XMS_ITS | Encounter Summary ---
:1965 Author Organization [facility] Address [address] [place] [address] Care Team Providers Name Role Phone Norma Kenny APRN, C.N.P. Primary Care Provider Reason for Visit Reason Onset Date Comments Communication 03/09/2018 NEW PT order Encounter Details Date Type Department Care Team Description 03/09/2018 Clinical Communication Department of Rony Kenny (NEW PT Family Medicine in [place]) Erik Booth APRN, C.N.P. [place] [address] [place], [place] [phone] [place] [phone] Social History Tobacco Use Types Packs/Day Years [...] or relatives? How often do you attend spiritism or hindu More than 4 time s per year 09/17/2018 services? 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 - 03/10/2018 12:41 PM VENEREAL DISEASE CONTROL HEAD The expiration on the order says 12/26/2020? I see that it was removed from the work queue, but it still shows in active requests. REAL DISEASE CONTROL HEAD Telephone Encounter - Elba Retana - 03/10/2018 12:38 PM CST Jessica I talked to Chely in PT who schedules theses appointments. She said that the order is and needs a new order placed before she can schedule this appointment for him Thank you REAL DISEASE CONTROL HEAD Telephone Encounter - Medina Schmitt RNikhilNNikhil - 03/10/2018 12:26 PM VENEREAL DISEASE CONTROL HEAD Spoke with Twin. He states that the PT referral/order is . I see that both the referral and orders are in and open status. Please see if he [facility] or beput on a cancellation list. He has started to ice regularly and take extra strength Tylenol every 6 hours. Advised to continue this and to not exceed the maximum dose of 4000 mg/day. He was understanding of this. REAL DISEASE CONTROL HEAD Telephone Encounter - Medina Schmitt R.N. - 03/09/2018 4:56 PM VENEREAL DISEASE CONTROL HEAD Left message to call back REAL DISEASE CONTROL HEAD Telephone Encounter - Maicomirella Christie Reyes - 03/09/2018 1:02 PM CST Please do not reply to sender,emails are not monitored. Thank you. If you need a prescription refill please call your pharmacy. Please allow 3 business days for processing. Expert RN: N/A (Med Refill Only) Call Center Template: ??? May we leave a message for you on this phone? yes What can I help you with today? Pt tried making an apt for her PT but the order is now out of date and requesting a new order. Pt says they cannot get him into PT until mar 25 and is asking if there is anywhere else he can go sooner,and would he need a referral to the new place? Pt is asking for his PCP's nurse to please call him, he has some questions. REAL DISEASE CONTROL HEAD documented in this encounter Plan of Treatment Upcoming Encounters Date Type Specialty Care Team Description 02/15/2022 Office Visit Orthopedic Surgery Madyson Rosa, DNikhilONikhil [address] [place], [place] [phone] (Wo rk) documented as of this encounter Visit Diagnoses Not on filedocumented in this encounter Additional Health Concerns Assessment Noted Time PHQ-9 Depression Total Score: 4 07/11/2017 8:29 AM CDT documented as of this encounter Care Teams Operations Lieutenant Relationship Specialty Start Date End Date Norma Kenny APRN, C.N.P. PCP - General 09/12/[address] [place] [phone] documented as of this encounter
--- OUTSIDE RECORDS SUMMARY | 2022-01-25 11:41 | XMS_ITS | Encounter Summary ---
:1965 Author Organization [facility] Address [address] [place] [address] Care Team Providers Name Role Phone Norma Kenny APRN, C.N.P. Primary Care Provider [phone] Reason for Visit Reason Comments Annual Exam fasting for labs Shoulder Pain left shoulder blade hurts on /off x 3 years, does not recall injury Encounter Details Date Type Department Care Team Description 07/11/2017 Comprehensive Visit Department of Efraín General Medical Examination Adult (Primary Dx); Family Medicine in [place], Hyperlipi demfarzana; Erik Booth APRN, C.N.P. 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 - 07/11/2017 8:30 AM CDT SUBJECTIVE CHIEF COMPLAINT: Chief Complaint Patient presents with ??? Annual Exam fasting for labs ??? Shoulder Pain left shoulder blade hurts on/off x 3 years, does not recall injury HISTORY OF PRESENT ILLNESS: Saad Murray is a 51 y.o. male who presents for his annual physical exam. He reports being in good health. His main concern today is pain on the sides of his neck for the last three weeks. He describes the pain as an ache that goes from below his jaw bilaterally to his collar bones. He reportsthat the pain is present most days. 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 He has tried taking Ibuprofen occasionally which has helpedwith the pain. He reports that he has been regularly exercising since Jin last year starting with 1/2 hour on treadmill daily. This past month, he has been walking two miles daily on the treadmill missing only 8 days of exercising since February. He reports that he has been watching his diet anddecreasing salty food intake. He bought a blood pressure monitor for home use and states that his blood pressures have been 140s/90s during morning and 130s/80s in the evenings recently. He ran out of his prescription medications for high blood pressure yesterday. He is otherwise feeling well. He has lost weight from last year. REVIEW OF SYSTEMS: A comprehensive review of systems was negative other than as mentioned in the HPI. PROBLEM LIST: Patient Active Problem List Diagnosis ??? Hypertension ??? Body Mass Index 40.0 To 44.9 Adult ([facility]) ??? Hypercholesterolemia ??? Gastroesophageal Reflux Disease MEDICATIONS: Current Outpatient Prescriptions on File Prior to Visit Medication Sig Dispense Refill ??? metoprolol succinate (for_TOPROL-XL) 25 mg 24 hr tablet Take 1 tablet (25 mg total) by mouth daily. (Patient taking differently: Take 25 mg by mouth daily. Takes prn heart palpitations ) 90 tablet 0 No current facility-administered medications on file prior to visit. ALLERGIES: No Known Allergies PAST MEDICAL HISTORY: Past Medical History: Diagnosis Date ??? Gastroesophageal Reflux Disease ??? Hypercholesterolemia ??? Hypertension NOS PAST SURGICAL HISTORY: Past Surgical History: Procedure Laterality Date ??? REPAIR OF UMBILICAL HERNIA N/A 04/12/2016 Repair of umbilical hernia ??? VASECTOMY N/A 03/05/2005 Vasectomy FAMILY HISTORY: Family History Problem Relation Age of Onset ??? Hypertension Father ??? Parkinsons disease Father ??? Hypertension Mother ??? CVD - cardiovascular disease Mother ??? Pacemaker battery Mother ??? ROMY disease Brother ??? Hypertension Sister ??? No Known Problems Maternal Grandmother ??? Heart attack Maternal Grandfather ??? No Known Problems Paternal Grandmother ??? No Known Problems Paternal Grandfather ??? No Known Problems Sister SOCIAL HISTORY: Social History Substance Use Topics ??? Smoking status: Former Smoker ??? Smokeless tobacco: Never Used Comment: Quit in 20s. ??? Alcohol use Yes Comment: Limits to weekends; Drinks beer or mixed drinks. Social History Social History Narrative He is . He is currently not in any relationship since his of breast cancer 2-3 years ago. Lives with his son Aram who is a senior this year. Older daughter is in 3rd year 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 Has no pets. Plans to move into parents family farm this year after renovation and sell current home. OBJECTIVE VITAL SIGNS: BP 144/72 Pulse 107 Temp 36.4 ??C (Temporal) Resp 20 Ht 184 cm Wt (!) 144.2 kg SpO2 99% BMI 42.61 kg/m?? PHYSICAL EXAM: General: Patient is alert, oriented and appears to be in no distress. HENT: Head is atraumatic and normocephalic. Mucous membranes are moist. There is no pharyngeal erythema. Ears are externally normal. TMs are normal. Neck is supple and without mass or adenopathy. No thyromegaly. No bruit. Non tender to palpation. Cardiovascular: Heart is regular rate and rhythm. There are no murmurs, gallops or rubs. Respiratory: Breathing is nonlabored. Lungs are clear to auscultation bilaterally. Extremities: There is no lower extremity edema. Abdomen: Soft and non-tender throughout. No organomegaly. Skin: No rashes or lesion noted. Neurologic: No neurologic deficit noted. The following screenings were completed: PHQ-9 Total Score (max 27): 4 (07/11/17 0829) PHQ-2 Score: 1 ASSESSMENT / PLAN #1 General Medical Examination Adult - CBC without Differential - CMP (Comprehensive Metabolic Panel) Reviewed all preventative health maintenance measures. He is up to date on all his Immunizations at this time. His last Tdap was in 2012. He gets his eye exams yearly and will be due in Summer this year. Recommended annual dental exams. Commended on his achievements with his exercise and weight reduction. Encouraged to continue heart healthy lifestyle including healthy diet and routine exercise regimen that he is currently doing. Discussed breifly about colonoscopy that will be due once he turns 52 yrs. Will check annual labs today. #2 Hyperlipidemia - Lipid Panel - atorvastatin (for_LIPITOR) 20 mg tablet; Take 1 tablet (20 mg total) by mouth at bedtime. Patient is due for yearly labs, Starting Fri07/11/2017, Normal - Continue the Atorvastatin at the same dose. #3 Hypertension Essential Primary - lisinopril-hydroCHLOROthiazide (for_PRINZIDE,ZESTORETIC) 20-25 mg per tablet; Take 1 tablet by mouth daily., Starting Fri07/11/2017, Normal - Continue same dose of your Lisinopril-Hydrochlorothiazide. - Keep track of your blood pressures at home. - Return for a nurse visit to recheck blood pressure once this week after restarting medication to get a baseline reading while on the medication. - Metoprolol used once or twice weekly for palpitations. Continue to use as needed for the palpitations. #4 Gastroesophageal Reflux Disease - pantoprazole (PROTONIX) 40 mg EC tablet; Take 1 tablet (40 mg total) by mouth as needed for heartburn., Starting Fri07/11/2017, Normal - Currently using very occasionally to about once per week. May continue to use as needed for acid reflex issues. In regards to his lateral neck pain, no abnormalities on exam. Patient states he has 1-2 weeks left on this xavier project. I recommended heat, tylenol/ibuprofen if needed, massage. He should follow up 1-2 weeks after his xavier job is finished if pain is not improving. Patient agreed with plan. Plan will be to follow-up in one year and sooner for any concerns. Discussed online patient portal and handout given to set up access from home. Call or use portal to communicate any concerns. Patient understands and agreeable with the plan. Patient seen with Montse Sarkar RN, [place] Residency CAR CLEANER Residency Student. Norma Kenny APRN, C.N.P. - 07/11/2017 8:30 AM CDT Please let patient know, labs look good, cholesterol is up slightly from last year, probably due to low-carb (higher fat) diet, which is fine. I would suggest increasing his atorvastatin to alternating1 tab nightly and 2 tabs nightly () or taking 1.5 tabs nightly while he is continuing with thisdiet. Remind him to stop in for repeat BP check sometime in the next week or two since he was out ofBP med at last visit and BP was elevated. Thanks, TK documented in this encounter Plan of Treatment Upcoming Encounters Date Type Specialty Care Team Description 02/15/2022 Office Visit Orthopedic Surgery Madyson Rosa D.ONikhil [address] [place] [place] [phone] (Wo rk) documented as of this encounter Procedures Procedure Name Priority Date/Time Associated Diagnosis Comme nts LIPID PANEL, S Routine 07/11/2017 9:34 Hyperlipidemia Results for this AM CDT procedure are i n the results section. CBC WITHOUT Routine 07/11/2017 9:34 General Medical Results f or this DIFFERENTIAL, B AM CDT Examination Adult procedu re are in the results section. COMPREHENSIVE Routine 07/11/2017 9:34 General Medical Results for this METABOLIC PANEL, S/P AM CDT Examination Adult procedure are in Hyperlipidemia the results Hypertension Essential secti on. Primary documented in this encounter Results CBC without Differential (07/11/2017 9:34 AM CDT) P athologist Signature Hemoglobin 15.7 13.2 - 07/11/2017 [facility] 16.6 g/dL 11:30 AM T [facility] Hematocrit 46.7 38.3 - 07/11/2017 [facility] 48.6 % 11:30 AM CDT [facility] Erythrocytes 5.04 4.35 - 07/11/2017 [facility] 5.65 11:30 AM T [facility] x10(12)/L [facility] MCV 92.7 78.2 - 07/11/2017 [facility] 97.9 fL 11:30 AM T [facility] RBC Distrib Width 12.8 11.8 - 07/11/2017 [facility] 14.5 % 11:30 AM T [facility] Platelet Count 223 135 - 317 07/11/2017 [facility] x10(9)/L 11:30 AM CDT [facility] Leukocytes 7.8 3.4 - 9.6 07/11/2017 [facility] x10(9)/L 11:30 AM [facility] Specimen Anatomical Collection Method Collection Time Receive d Time (Source) Location / / Volume Laterality Blood 07/11/2017 9:34 AM 8 CDT 11:20 AM CDT Norma Kenny APRN, C.N.P. LAB BLOOD ADD-ON Performing Organization Address City/State/ZIP Code Phon e Number [facility] [address] [place] [address] [facility] (ABNORMAL) CMP (Comprehensive Metabolic Panel) (07/11/2017 9:34 AM CDT) athologist Signature Potassium, S 4.2 3.6 - 5.2 07/11/2017 [facility] mmol/L 2:16 PM [facility] Sodium, S 136 135 - 145 07/11/2017 [facility] mmol/L 2:[address] [facility] [place] Chloride, S 94 (L) 98 - 107 07/11/2017 [facility] mmol/L 2:16 PM [facility] Bicarbonate, S 28 22 - 29 07/11/2017 [facility] mmol/L 2:16 PM [facility] Anion Gap 14 7 - 15 07/11/2017 [facility] 2:16 PM [facility] BUN (Blood Urea 20 8 - 24 07/11/2017 [facility] Nitrogen), S mg/dL 2:16 PM [facility] Creatinine 0.82 0.74 - 07/11/2017 [facility] 1.35 mg/dL 2:16 PM [facility] eGFR-Non >90 >=60 07/11/2017 [facility] Black/ mL/min/BSA 2:16 PM [facility] [place] [facility] Comment: ----ADDITIONAL INFORMATION---- Estimated GFR calculated using the 2009 CKD_EPI creatinine equation. eGFR-Black/ >90 >=60 mL/min/BSA 2017 2:16 PM [facility] Comment: ----ADDITIONAL INFORMATION---- Estimated GFR calculated using the 2009 CKD_EPI creatinine equation. Calcium, Total, S 10.0 8.9 - 10.1 07/11/2017 2:16 PM [facility] mg/dL [facility] Glucose, S 101 70 - 140 mg/dL 07/11/2017 2:16 PM [facility] Protein, Total, S 7.6 6.3 - 7.9 g/dL 07/11/2017 2:16 P M [facility] Albumin, S 4.8 3.5 - 5.0 g/dL 07/11/2017 2:16 PM [facility] Aspartate Aminotransferase 39 8 - 48 U/L 07/11/2017 2 :16 PM [facility] S [facility] Alkaline Phosphatase, S 67 45 - 115 U/L 07/11/2017 2: 16 PM [facility] Alanine Aminotransferase 47 7 - 55 U/L 07/11/2017 2:1 6 PM [facility] Bilirubin, Total, S 1.1 <=1.2 mg/dL 07/11/2017 2:53 PM [facility] Specimen Anatomical Collection Method Collection Time Receive d Time (Source) Location / / Volume Laterality Blood (Blood, 07/11/2017 9:34 AM 07/12/19 18 Venous) CDT 12:02 PM CDT Glory Adams APRNPNikhil LAB BLOOD ADD-ON Performing Organization Address City/State/ZIP Code Phon e Number [facility] [address] [place] [id number] [facility] (ABNORMAL) Lipid Panel (07/11/2017 9:34 AM CDT) athologist Signature Cholesterol, 214 (H) mg/dL 07/11/2017 [facility] Total 2:[address] [facility] Comment: ----REFERENCE VALUE---- Desirable: < 200 Borderline high: 200 - 239 High: > or = 240 Triglycerides 113 mg/dL 07/11/2017 2:16 PM CDT [facility] Comment: ----REFERENCE VALUE---- Normal: <150 Borderline high: 150-199 High: 200-499 Very high: > or =500 Cholesterol, HDL, S 61 >=40 mg/dL 07/11/2017 2:16 PM CDT [facility] Calculated LDL 130 (H) mg/dL 07/11/2017 2:16 PM CDT [facility] Comment: ----REFERENCE VALUE---- Desirable: <100 Above Desirable: 100-129 Borderline high: 130-159 High: 160-189 Very high: > or =190 Cholesterol, Non-HDL, 153 mg/dL 07/11/2017 2:16 PM CDT [facility] Comment: ----REFERENCE VALUE---- Desirable: <130 Above Desirable: 130-159 Borderline high: 160-189 High: 190-219 Very high: > or =220 Specimen Anatomical Collection Method Collection Time Receive d Time (Source) Location / / Volume Laterality Blood (Blood, 07/11/2017 9:34 AM 07/12/19 18 Venous) CDT 12:02 PM CDT Norma Kenny APRN, C.N.P. LAB BLOOD ADD-ON Performing Organization Address City/State/ZIP Code Phon e Number [facility] [address] [place] [address] [facility] documented in this encounter Visit Diagnoses Diagnosis General Medical Examination Adult - Prim berenice Hyperlipidemia Hypertension Essential Primary Gastroesophageal Reflux Disease Morbid Obesity Body Mass Index 40.0-44.9 Adult (HCC) documented in this encounter Additional Health Concerns Assessment Noted Time PHQ-9 Depression Total Score: 4 07/11/2017 8:29 AM CDT documented as of this encounter Care Teams Claims Investigator Relationship Specialty Start Date End Date Norma Kenny APRN, C.N.P. PCP - General 09/12/[address] [place] [address] documented as of this encounter
--- OUTSIDE RECORDS SUMMARY | 2022-01-25 11:41 | XMS_ITS | Encounter Summary ---
:1965 Author Organization [facility] Address [address] [place] [address] Care Team Providers Name Role Phone Norma Kenny APRN, C.N.P. Primary Care Provider [phone] Encounter Details Date Type Department Care Team Description 09/27/2016 Hospital Encounter HX [facility] Christi Pulido M.D. 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 metoprolol succinate Take 1 tablet by 0 6 05/12/2017 (for_TOPROL-XL) 25 mg 24 mouth daily. hr tablet documented as of this encounter Plan of Treatment Upcoming Encounters Date Type Specialty Care Team Description 02/15/2022 Office Visit Orthopedic Surgery Madyson Rosa il, D.ONikhil [address] [place], [place] [phone] (Wo rk) documented as of this encounter Visit Diagnoses Not on filedocumented in this encounter Care Teams Billet Worker Relationship Specialty Start Date End Date Norma Kenny APRN, C.N.P. PCP - General 09/12/[address] [place] [phone] documented as of this encounter
--- OUTSIDE RECORDS SUMMARY | 2022-01-25 11:41 | XMS_ITS | Encounter Summary ---
:1965 [facility] Address [address] [place] [address] Care Team Providers Name Role Phone Norma Kenny APRN, C.N.P. Primary Care Provider [phone] Reason for Visit MRI/CAT/PET Scan (Routine) - Closed Specialty Diagnoses / Procedures Referred By Contact Refer red To Contact Radiology Diagnoses Pain Shoulder Left RAD MR SHOULDER Ame Beal, STEVEN, [facility] Region Procedures MR Shoulder Left without IV Contrast [place] MRI UPR EXT JOINT WO CNTRST HC MRI UPR EXT JOINT WO CNTRST C.N.P., R.N. [address] [facility] [address] [place] [address] Referral ID Status Reason Start Date Expiration Date Visits Requ ested Visits Authorized [id number] Closed 03/13/2018 03/13/2019 1 1 Encounter Details Date Type Department Care Team Description 03/20/2018 Hospital Encounter Department of Radiology, Cole Beal, [facility], in COMPRESSED GAS TESTER, C.N.P ., R.N. [place], [place] [address] [facility], [facility] [address] [address] [place] [address] [phone] (Wo rk) Social History Tobacco Use Types [...] How often do you attend mu-ism or yazidism More than 4 time s [...] at Date Recorded Male 03/25/2018 1:01 PM CERTIFIED BENCH JEWELER TECHNICIAN documented as of this encounter Medications at [...] a day as needed for muscle spasms. HYDROcodone-acetaminophen Take 1 tablet by 12 tablet 0 02/2804/30/2018 (NORCO) 5-325 mg per mouth every 6 tabletIndications: Acute (six) hours as Pain needed for moderate pain or score 4-6 of 10 Indication: Acute Pain. lisinopril-hydroCHLOROthiaz Take 1 tablet by 90 tablet 3 04/30/2018 madeline mouth daily. 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 Take 30 minutes prior to procedure. metoprolol succinate Take 1 tablet (25 90 [...] Visit Orthopedic Surgery Madyson Rosa, Jarad.ONikhil [address] [place] [phone] (Wo rk) documented as of this encounter Procedures Procedure Name Priority Date/Time Associated Comments Diagnosis MR SHOULDER LEFT RAD - Routine 03/20/2018 8:32 Pain Shoulder Result s for this WITHOUT IV (most inpatients AM CERTIFIED BENCH JEWELER TECHNICIAN Left procedure a re in CONTRAST and all the results outpatients) section. documented in this encounter Results MR Shoulder Left without IV Contrast (03/20/2018 8:32 AM CERTIFIED BENCH JEWELER TECHNICIAN) Anatomical Region Laterality Modality Upper Extremity, Shoulder, Musculoskeletal RST LOS, Left Magnetic Resonance Musculoskeletal ARZ LOS, Muskuloskeletal FLA LOS Specimen (Source) Anatomical Collection Method Collection Time Re ceived Time Location / / Volume Laterality 03/20/2018 9:12 AM CERTIFIED BENCH JEWELER TECHNICIAN Impressions 03/20/2018 9:37 AM CERTIFIED BENCH JEWELER TECHNICIAN IMPRESSION: Small tear of the distal supraspinatus t endon. Is difficult to determine if this is a complete or partial thickness tear. Mild biceps tendinosis. Labral tear. Ganglion cyst in the spinoglenoid notch may impinge upon the suprascapular nerve. Narrative 03/20/2018 9:37 AM CERTIFIED BENCH JEWELER TECHNICIAN EXAM: MR SHOULDER LEFT WITHOUT IV CONTRAST COMPARISON:None FINDINGS: MR left shoulder demonstrates a small tear of the distal supraspinatus tendon at the humeral attachment, image 14 series 7. It is difficult to determine if this is a small complete or partial thickness tear. There is mildly increased proton density signal within t he rotator cuff adjacent to the tear consistent with mild degenerative change . The acromion has a mild downward curvature which combines with degenerati ve change at the acromioclavicular joint to result in moderate impingement upon t he subacromial subdeltoid space. Mildly increased signal within the proxi mal portion of the long head of the biceps tendon consistent with mild bicep s tendinopathy. There is irregularity of the superior portion of the glenoid labr um and possible irregularity of the anterior labrum consistent with labral t ears. There is a ganglion cyst arising in the spinoglenoid notch and extending medially along the posterior aspect of the spinous process of the scapula measu ring 4.2 x 1.1 x 1.1 cm which may compromise the supra scapular nerve. Procedure Note Mark Barone M.D. - 03/20/2018For matting of this note might be different from the original. EXAM: MR SHOULDER LEFT WITHOUT IV CONTRA ST COMPARISON:None FINDINGS: MR left shoulder demonstrates a small tear of the distal supraspinatus tendon at the humeral attachment, image 14 series 7. It is difficult to determine if this is a small complete or partial thickness tear. There is mildly increased proton density signal within t he rotator cuff adjacent to the tear consistent with mild degenerative change . The acromion has a mild downward curvature which combines with degenerati ve change at the acromioclavicular joint to result in moderate impingement upon t he subacromial subdeltoid space. Mildly increased signal within the proxi mal portion of the long head of the biceps tendon consistent with mild bicep s tendinopathy. There is irregularity of the superior portion of the glenoid labr um and possible irregularity of the anterior labrum consistent with labral t ears. There is a ganglion cyst arising in the spinoglenoid notch and extending medially along the posterior aspect of the spinous process of the scapula measu ring 4.2 x 1.1 x 1.1 cm which may compromise the supra scapular nerve. IMPRESSION: Small tear of the distal supraspinatus t endon. Is difficult to determine if this is a complete or partial thickness tear. Mild biceps tendinosis. Labral tear. Ganglion cyst in the spinoglenoid notch may impinge upon the suprascapular nerve. Ame Beal APRN, C.N.P., R.N. IMG MRI PROCEDURES documented in this encounter Visit Diagnoses Not on filedocumented in this encounter Additional Health Concerns Assessment Noted Time PHQ-9 Depression Total Score: 4 07/11/2017 8:29 AM CDT documented as of this encounter Care Teams Extrusion Press Supervisor Relationship Specialty Start Date End Date Norma Kenny APRN, C.N.P. PCP - General 09/12/[address] [place] [phone] documented as of this encounter
--- OUTSIDE RECORDS SUMMARY | 2022-01-25 11:41 | XMS_ITS | Encounter Summary ---
:1965 Author Organization [facility] Address [address] [place] [address] Care Team Providers Name Role Phone Norma Kenny APRN, C.N.P. Primary Care Provider [phone] Reason for Referral Outpatient (Routine) - Closed Specialty Diagnoses / Procedures Referred By Contact Refer red To Contact Orthopedic Surgery Diagnoses Pain Shoulder Left Ame Beal APRN, [facility] C.N.P., R.N. [address] [place] [address] [place] [id number] Referral ID Status Reason Start Date Expiration Date Visits Requ ested Visits Authorized [id number] Closed 03/13/2018 03/13/2019 1 1 ATION CONTROL TECHNICIAN MRI/CAT/PET Scan (Routine) - Closed Specialty Diagnoses / Procedures Referred By Contact Refer red To Contact Radiology Diagnoses Pain Shoulder Left RAD MR SHOULDER Ame Beal APRN, [facility] Region Procedures MR Shoulder Left without IV Contrast [place] MRI UPR EXT JOINT WO CNTRST HC MRI UPR EXT JOINT WO CNTRST C.N.P., R.N. [address] [place] [address] [place] [id number] Referral ID Status Reason Start Date Expiration Date Visits Requ ested Visits Authorized [id number] Closed 03/13/2018 03/13/2019 1 1 ATION CONTROL TECHNICIAN Reason for Visit Reason Comments Arm Pain started in the fall, schedul ed for PT in March, symptoms have worsened in the past 2 weeks Appointment Request (Routine) - Closed Specialty Diagnoses / Procedures Referred By Contact Refer red To Contact Family Medicine Referral ID Status Reason Start Date Expiration Date Visits Requ ested Visits Authorized [id number] Closed 03/13/2018 03/13/2019 1 1 Encounter Details Date Type Department Care Team Description 03/13/2018 Office Visit Department of Family Ame Beal Pai n Shoulder Left (Primary Dx); Medicine in [facility] Nic HARRIS, Pain Hip Ri [place], [place] R.N. [address], [place] [phone] [place] [address] [phone] Social History Tobacco Use Types Packs/Day Years [...] How often do you attend bahai or hinduism More than 4 time s [...] at Date Recorded Male 03/25/2018 1:01 PM RADIATION CONTROL TECHNICIAN documented as of this encounter Last Filed Vital Signs Vital Sign Reading Time Taken Comments Blood Pressure 140/78 03/13/2018 1:29 PM RADIATION CONTROL TECHNICIAN Pulse 90 03/13/2018 1:29 PM RADIATION CONTROL TECHNICIAN Temperature 37.3 ??C (99.1 ??F) 03/13/2018 1:29 PM RADIATION CONTROL TECHNICIAN Respiratory Rate - - Oxygen Saturation 99% 03/13/2018 1:29 PM RADIATION CONTROL TECHNICIAN Inhaled Oxygen Concentration - - Weight 133 kg (292 lb 11.2 oz) 03/13/2018 1:29 PM RADIATION CONTROL TECHNICIAN Height - - Body Mass Index 39.22 12/15/2017 1:22 PM CDT documented in this encounter Patient Instructions Patient InstructionsCulvAme larson APRN, C.N.P. - 03/13/2018 1:45 PM RADIATION CONTROL TECHNICIAN Call [phone] Extension [address] [place]. MRI Friday 03/16 Check-in 2:30pm at hospital. ATION CONTROL TECHNICIAN documented in this encounter Progress Notes Ame Beal APRN, C.N.P. - 03/13/2018 1:45 PM CST SUBJECTIVE CHIEF COMPLAINT: Chief Complaint Patient presents with ??? Arm Pain started in the fall, scheduled for PT in March, symptoms have worsened in the past 2 weeks HISTORY OF PRESENT ILLNESS: Saad Murray is a 52 y.o. male who presents for left upper back and shoulder concern. Patient was seen back in November the left upper back pain. Shoulder x-ray was negative except for some mild widening of the acromioclavicular joints. Minimal subchondral change within the glenoid. Trial of prednisone and muscle relaxants may no difference. Recommended physical therapy for a month at the end of November. He is not scheduled until March. For the past 2 weeks patient has been unable to lift the left arm due to pain within the shoulder even unable to use the turn signal in his truck. He still has left scapular pain, but not as bad. Has been using Tylenol and ibuprofen regularly. He started walking regularly in November for weight loss.Started weightlifting in December, low weights at high reps almost daily. In January he was walking and lifting for 70 min total twice daily every day. Lifting includes arm curls and bench presses [id number] lb bar. No overhead movements. Has noticed no weight changes, but clothes are looser. He limitedhis workouts 10 days ago due to the left shoulder pain. 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 MEDICATIONS: Current Outpatient Prescriptions: ??? atorvastatin (for_LIPITOR) [...] or mixed drinks. OBJECTIVE VITAL SIGNS: BP 146/74 (BP Location: Right arm, Patient Position: Sitting, Cuff Size: Large) Pulse 90 Temp 37.3 ??C (Temporal) Wt 132.8 kg SpO2 99% BMI 39.22 kg/m?? PHYSICAL EXAM: General: Patient is alert, oriented. In no acute distress. Skin: Warm and dry. HEENT: Head normocephalic. Extremities: CSM intact to all 5 left hand digits. Musculoskeletal: Normal gait and posture. Strong equal nremt strength. Full active range of motion ofright shoulder without limitations. Left shoulder exam: Limited abduction barely to 45?? actively. Passive abduction and flexion can get to 90??, but extreme pain upon adduction that brought tears to patient's eyes. Tenderness to the anterior glenohumeral joint, some to the left lateral upper arm, andtenderness to left upper back at previous site as well. No visible swelling or mass. ASSESSMENT / PLAN 1. Pain Shoulder Left Offered [facility] for more urgent evaluation, but patient willing to wait until Friday. MRI scheduled forMMarch 16. Information provided to patient. He was given 3 days of [place]. Discussed use of [place] with Tylenol and to avoid overdose. Reminded to avoid driving, working, or mixing [place] with other substances causing sedation such as alcohol. He will call Friday if he needs a refill. Referralplaced Orthopedics ideally to get in next Friday or Friday. Encouraged patient to ask for [place] if none available in [place] next week. Follow-up as needed in the meantime should symptoms worsen or other concerns develop. - MR Shoulder Left without IV Contrast; Future - HYDROcodone-acetaminophen (NORCO) 5-325 mg per tablet; Take 1 tablet by mouth every 6 (six) hours as needed for moderate pain or score 4-6 of 10 Indication: Acute Pain. Dispense: 12 tablet; Refill: 0 - Orthopedic Surgery - Sports non surgical consult (clinic); Future 2. Pain Hip Right Patient brings up at end of visit pain extending from the right groin about prison down the right medial thigh. This has been present for 8 months. Patient reports that provider has evaluated in the past. It seems to worsen with more leg work. Has not noticed any bulges. Denies scrotal pain. Suggested to patient this could be a sign of hip arthritis. Offered to check x-ray. Patient declined at this point. Will get his shoulder taken care of, then look into the hip concern. Flu vaccine up-to-date. All questions answered. Patient stated understanding and agreement with current plan. ATION CONTROL TECHNICIAN documented in this encounter Plan of Treatment Upcoming Encounters Date Type Specialty Care Team Description 02/15/2022 Office Visit Orthopedic Surgery Madyson Rosa D.ONkihil [address] [place] [address] [phone] (Wo rk) Scheduled Referrals Name Type Priority Associated Order Schedule Diagnoses Orthopedic Surgery - Outpatient Referral Routine Pain Shoulder Left Expected: Sports non surgical 03/13/20 18 consult (clinic) (Approximat e), Expires: 03/13/2021 documented as of this encounter Results MR Shoulder Left without IV Contrast (03/20/2018 8:32 AM RADIATION CONTROL TECHNICIAN) Anatomical Region Laterality Modality Upper Extremity, Shoulder, Musculoskeletal RST LOS, Left Magnetic Resonance Musculoskeletal ARZ LOS, Muskuloskeletal FLA LOS Specimen (Source) Anatomical Collection Method Collection Time Re ceived Time Location / / Volume Laterality 03/20/2018 9:12 AM RADIATION CONTROL TECHNICIAN Impressions 03/20/2018 9:37 AM RADIATION CONTROL TECHNICIAN IMPRESSION: Small tear of the distal supraspinatus t endon. Is difficult to determine if this is a complete or partial thickness tear. Mild biceps tendinosis. Labral tear. Ganglion cyst in the spinoglenoid notch may impinge upon the suprascapular nerve. Narrative 03/20/2018 9:37 AM RADIATION CONTROL TECHNICIAN EXAM: MR SHOULDER LEFT WITHOUT IV [...] as of this encounter Care Teams Glass Or Mirror Inspector Relationship Specialty Start Date End Date Norma Kenny APRN, C.N.P. PCP - General 09/12/[address] [place] [phone] documented as of this encounter
--- OUTSIDE RECORDS SUMMARY | 2022-01-25 11:41 | XMS_ITS | Encounter Summary ---
:1965 Author Organization [facility] Address [address] [place] [address] Care Team Providers Name Role Phone Norma Kenny APRN C.N.P. Primary Care Provider [phone] Reason for Visit Reason Onset Date Comments Med Refill 06/09/2017 Encounter Details Date Type Department Care Team Description 06/09/2017 Clinical Communication Department of Cahse Philippe Med Refill Medicine, [place] STEVEN C.N.P. 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 - 06/09/2017 4:57 PM CDT Meds refilled for one months Pt advised that he will have to see provider for further refills Telephone Encounter - Danyelle Diez - 06/09/2017 2:02 PM CDT Please do not reply to sender,emails are not monitored. Thank you. If you need a prescription refill please call your pharmacy. Please allow 3 business days for processing. Offered ZAHRAA: Yes No Declined ZAHRAA: Yes No Call Center Template: ??? May we leave a message for you on this phone? What can I help you with today? Patient needs refills as he's going out of town and also has questions on when he's to take the metoprolol. Is is as needed or along with the other meds? Please givehim a call. Thanks. ??? If Medication Refill: o What is the medication? Atorvastatin and lisinopril-hydro chlorothiazide, and metroprolol o What is the medication used for? o How many pills do you have left? o What pharmacy do you use? [facility] in [place] o Have you contacted your pharmacy regarding this request? I will send this information to the appropriate staff member who will look into your concern. Is there anything else I can help you with today? Thank you for calling [facility]. documented in this encounter Plan of Treatment Upcoming Encounters Date Type Specialty Care Team Description 02/15/2022 Office Visit Orthopedic Surgery Madyson Rosa D.O. [address] [place], [place] [phone] (Wo rk) documented as of this encounter Visit Diagnoses Not on filedocumented in this encounter Care Teams Laborer Heading Relationship Specialty Start Date End Date Norma Kenny APRN, C.N.P. PCP - General 09/12/[address] [place] [phone] documented as of this encounter
--- OUTSIDE RECORDS SUMMARY | 2022-01-25 11:41 | XMS_ITS | Encounter Summary ---
:1965 Author Organization [facility] Address [address] [place] [address] Care Team Providers Name Role Phone Norma Kenny APRN, C.N.P. Primary Care Provider [phone] Reason for Referral MRI/CAT/PET Scan (Routine) - Closed Specialty Diagnoses / Procedures Referred By Contact Refer red To Contact Radiology Diagnoses Pain Shoulder Left RAD MR SHOULDER Ame Beal APRN, [facility] Region Procedures MR Shoulder Left without IV Contrast MD MRI UPR EXT JOINT WO CNTRST HC MRI UPR EXT JOINT WO CNTRST C.N.P., R.N. [address] [facility], [place] [address] [place] [address] Referral ID Status Reason Start Date Expiration Date Visits Requ ested Visits Authorized [id number] Closed 03/13/2018 03/13/2019 1 1 STRATION OFFICER Reason for Visit MRI/CAT/PET Scan (Routine) - Closed Specialty Diagnoses / Procedures Referred By Contact Refer red To Contact Radiology Diagnoses Pain Shoulder Left RAD MR SHOULDER Ame Beal APRN, [facility] Region Procedures MR Shoulder Left without IV Contrast MD MRI UPR EXT JOINT WO CNTRST HC MRI UPR EXT JOINT WO CNTRST C.N.P., R.N. [address] , [place] [address] [place] [address] Referral ID Status Reason Start Date Expiration Date Visits Requ ested Visits Authorized [id number] Closed 03/13/2018 03/13/2019 1 1 Encounter Details Date Type Department Care Team Description 03/16/2018 Hospital Encounter Department of Ame Beal Left Radiology in [place], [place] C.N.P., R.N. [address], [facility] [phone] [place], [place] [phone] Social History Tobacco Use Types Packs/Day Years [...] or relatives? How often do you attend anabaptism or advent More than 4 time s per year 09/17/2018 services? Do you belong to any clubs or organizations No 09/17/2018 such as anabaptism groups, unions, fraternal or athletic groups, or [...] at Date Recorded Male 03/25/2018 1:01 PM REGISTRATION OFFICER documented as of this encounter Medications at [...] Visit Orthopedic Surgery Madyson Rosa, D.O. [address] [place] [address] [phone] (Wo rk) documented as of this encounter Procedures Procedure Name Priority Date/Time Associated Comments Diagnosis MR SHOULDER LEFT RAD - Routine 03/20/2018 8:32 Pain Shoulder Result s for this WITHOUT IV (most inpatients AM REGISTRATION OFFICER Left procedure a re in CONTRAST and all the results outpatients) section. documented in this encounter Results MR Shoulder Left without IV Contrast (03/20/2018 8:32 AM REGISTRATION OFFICER) Anatomical Region Laterality Modality Upper Extremity, Shoulder, Musculoskeletal RST LOS, Left Magnetic Resonance Musculoskeletal ARZ LOS, Muskuloskeletal FLA LOS Specimen (Source) Anatomical Collection Method Collection Time Re ceived Time Location / / Volume Laterality 03/20/2018 9:12 AM REGISTRATION OFFICER Impressions 03/20/2018 9:37 AM REGISTRATION OFFICER IMPRESSION: Small tear of the distal supraspinatus t endon. Is difficult to determine if this is a complete or partial thickness tear. Mild biceps tendinosis. Labral tear. Ganglion cyst in the spinoglenoid notch may impinge upon the suprascapular nerve. Narrative 03/20/2018 9:37 AM REGISTRATION OFFICER EXAM: MR SHOULDER LEFT WITHOUT IV CONTRAST [...] Pain Shoulder Left documented in this encounter Additional Health Concerns Assessment Noted Time PHQ-9 Depression Total Score: 4 07/11/2017 8:29 AM CDT documented as of this encounter Care Teams Academic Advising Director Relationship Specialty Start Date End Date Norma Kenny APRN, C.N.P. PCP - General 09/12/[address] [place] [phone] documented as of this encounter
--- OUTSIDE RECORDS SUMMARY | 2022-01-25 11:41 | XMS_ITS | Encounter Summary ---
:1965 Author Organization [facility] Address [address] [place] [address] Care Team Providers Name Role Phone Norma Kenny APRN, C.NNikhilP. Primary Care Provider [phone] Reason for Visit Reason Onset Date Comments Results 07/21/2017 Encounter Details Date Type Department Care Team Description 07/21/2017 Clinical Communication Department of Chase Philippe, [facility] Medicine in [facility] [place], [place] [address] [place] [address] [id number] Social History Tobacco Use Types Packs/Day Years [...] How often do you attend anabaptism or voodoo More than 4 time s [...] at Date Recorded Male 03/25/2018 1:01 PM FAMILY PRESERVATION OFFICER documented as of this encounter Miscellaneous Notes Telephone Encounter - Lavinia Mike R.N. - 07/21/2017 9:44 AM CDT Pt received the letter Jeannette had sent him with his lab results. We reviewed the letter. He will increase his atorvastatin to alternating 1 tab one night and 2 tabs the next. He does note he can be forgetful in taking this altogether (misses approx 3 doses a week). He will work harder at remembering this. He would like a recheck in 1-2 months. Pt will start at home BP monitoring and will have BP check in clinic as well within the next 1-2 weeks. Telephone Encounter - Maritza Westbrook - 07/21/2017 9:20 AM CDT Please do not reply to sender,emails are not monitored. Thank you. If you need a prescription refill please call your pharmacy. Please allow 3 business days for processing. Offered ZAHRAA: Yes No Declined ZAHRAA: Yes No Call Center Template: ??? May we leave a message for you on this phone? What can I help you with today? o Patient calling to speak to Jeannette, regarding lab results. Please call, thank you. I will send this information to the appropriate staff member who will look into your concern. Is there anything else I can help you with today? Thank you for calling [facility]. documented in this encounter Plan of Treatment Upcoming Encounters Date Type Specialty Care Team Description 02/15/2022 Office Visit Orthopedic Surgery Madyson oRsa D.O. [address] [place], [place] [phone] (Wo rk) documented as of this encounter Visit Diagnoses Not on filedocumented in this encounter Additional Health Concerns Assessment Noted Time PHQ-9 Depression Total Score: 4 07/11/2017 8:29 AM CDT documented as of this encounter Care Teams Rural Carrier Associate Relationship Specialty Start Date End Date Norma Kenny APRN, C.N.P. PCP - General 09/12/[address] [place] [address] documented as of this encounter
--- OUTSIDE RECORDS SUMMARY | 2022-01-25 11:41 | XMS_ITS | Encounter Summary ---
:1965 Author Organization [facility] Address [address] [place] [address] Care Team Providers Name Role Phone Unavailable Primary Care Provider Unavailable Encounter Details Date Type Department Care Team Description 07/25/2016 Hospital Encounter HX [facility] Nohemi Pablo i, STEVEN, C.N.P., R. N. 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 documented as of this encounter Last Filed Vital Signs Vital Sign Reading Time Taken Comments Blood Pressure 136/78 07/25/2016 2:22 PM CDT Pulse 91 07/25/2016 2:22 PM CDT Temperature - - Respiratory Rate - - Oxygen Saturation - - Inhaled Oxygen Concentration - - Weight 154 kg (339 lb 15.2 oz) 07/25/2016 2:22 PM CDT Height 185 cm (6' 0.84) 07/25/2016 2:22 PM CDT Body Mass Index 45.05 07/25/2016 2:22 PM CDT documented in this encounter Medications at Time of Discharge Medication Sig Dispensed Refills Start Date End Date atorvastatin (for_LIPITOR) Take 1 tablet by 0 03/06/2017 20 mg tablet mouth at bedtime. metoprolol succinate Take 1 tablet by 0 05/12/2017 (for_TOPROL-XL) 25 mg 24 mouth daily. hr tablet documented as of this encounter Progress Notes Devora Beal, STEVEN, C.N.P. - 07/25/2016 2:17 PM CDT [id number] CHIEF COMPLAINT/REASON FOR VISIT Hip pain. HISTORY OF PRESENT ILLNESS Saad is a 50-year-old male, here today with complaints of lower back and hip pain that started September or October 2015 after no known injury. He did not address it at that time as his was terminally ill and ultimately in December 2015. He was seen in December and given a Medrol Dosepak which did not help much. He has also tried tramadol prescription which he received in February, used use only as needed and finished in May. Towards the end, he did not feel it helped much. The painoccurs to the right hip radiating down to the buttocks and posterior mid thigh, not quite to the knee, as well as to the right groin at times. About 4 nights ago, the pain was enough to keep him awake and very bothersome. His son suggested doing some stretches, thus he started stretching for 20 minutes per day and his pain has reduced from a 9/10 to 1 to 2/10. He wonders about physical therapy treatments for this. He has also been walking daily for 40 minutes on a treadmill over the past month and feels that this has helped his hip as well. He does not mention any bowel or bladder incontinence. MEDICATIONS Atorvastatin 20 mg at bedtime. Lisinopril/hydrochlorothiazide 20 mg-25 mg tablet daily. Metoprolol succinate 25 mg daily as needed for palpitations or blood pressure greater than 140/90. Protonix 40 mg daily. ALLERGIES No known allergies. SYSTEMS REVIEW Review of systems per HPI. CARDIAC: Saad brings up the EKG abnormality discussed around preoperative exam. He had originallyplanned to repeat the EKG in 6 months as he met minimal voltage criteria for left ventricular hypertrophy. ABDOMEN: Saad brings up slight irritation at the surgical site over the past 10 days after umbilical hernia repair 04/12/2016. He noticed that this irritation occurred only when standing out of a chair and a few times with coughing but has not been consistent and is not overly bothersome. MUSCULOSKELETAL: Saad also brings up pain to the bilateral scapulae with the left greater than the right. It is a sharp pain, worse after working all day. He has had tingling in his hands for the past 5 to 6 years so this is nothing new. All other systems negative at this time. PAST MEDICAL/SURGICAL HISTORY Unchanged from dictation 03/15/2016 with the addition of umbilical hernia repair 04/12/2016. 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 Former smoker, quit in his 20s. VITAL SIGNS Temperature 36.3 degrees Celsius, heart rate 91, blood pressure 136/78, oxygen saturation 95% on room air. Height 185 cm, weight 154.2 kg. BMI 45.05. PHYSICAL EXAMINATION GENERAL: Saad is alert and oriented. In no acute distress. SKIN: Warm and dry. ABDOMEN: Soft. Nontender. No masses. The scar inferior to his umbilicus is clean, dry and intact. Itis slightly more firm superior to the umbilicus at the site of the hernia repair. No sign of abscessor new hernia. NEUROLOGIC: Unable to elicit bilateral biceps DTRs. Patellar DTRs 2+ and symmetric. Sensation intactto bilateral lower extremities. MUSCULOSKELETAL: Full active range of motion. Walking on tiptoes, heels and squatting. Excellent range of motion at the hip without limitations. EXTREMITIES: Strong and equal x4 against resistance. Palpation of the back revealed tenderness directly over the thoracic and lumbar spine but no cervical spine tenderness. He also has tenderness to the medial aspect of bilateral scapulae and some to the right upper buttock region. No tenderness to the right anterior hip area. Passive range of motion of bilateral hips with patient supine elicited no pain. Straight leg raise negative bilaterally. IMPRESSION/REPORT/PLAN 1. Chronic low back and right hip pain, possible sciatic along with piriformis syndrome. It is promising that his symptoms are improving with stretches as well as walking. Encouraged to continue the walking program. Handouts provided for sciatica and piriformis syndrome exercises and stretches were provided with encouragement to do these 1 to 2 times per day regularly over the next 2 to 4 weeks. If he is not improving after that time, he may call and would order an x- ray of the lumbar spine and right hip. 2. Chronic bilateral upper back pain secondary to overuse. A handout on upper back pain exercises and stretching was provided with encouragement again to do these for the next 2 to 4 weeks. If no improvement the patient may call and we would order outpatient x-rays to determine further plan from there. All questions of Saad answered at visit. He stated understanding and agreement with current plan. Devora Beal APRN, C.N.P./pos Electronically Signed By: DEVORA BEAL YOUNG ADULT LIBRARIAN On: 08/12/2016 03:31 PM Modified by and Electronically Signed by: DEVORA BEAL YOUNG ADULT LIBRARIAN On: 08/12/2016 03:31 PM Source: [facility] [id number] Document Id: [id number] documented in this encounter Miscellaneous Notes Miscellaneous - Lakeisha Cassidy L.P.NNikhil - 11/11/2016 8:36 AM CDT [facility] - Protonix refill Document Contains Addenda Addendum by JOSH BRIAN RN on November 11, 2016 09:17:38 CDT Sent per protocol. From: LAKEISHA CASSIDY LPN To: JOSH BRIAN RN; Sent: 11/11/2016 08:36:19 CDT Subject: [facility] - Protonix refill Medication Refill Request: Medication(s): Protonix Are they taking as prescribed? YES ( x ) NO ( ) If no, list how they are taking med & why? Last Script(s) Written: 12/21/2015 Last Office Visit: 09/27/2016 Pharmacy: [facility] Did they call their pharmacy first? YES ( x ) NO ( ) Call Back #: call back number above Is A Call Back Needed? YES ( ) NO ( x ) Can we leave a message at this #? YES ( x ) NO ( ) Comment(s): Source: [facility] POWERCHART Document Id: [id number] Miscellaneous - Devora Beal, STEVEN, C.NNikhilP. - 07/25/2016 3:05 PM CDT Ambulatory Patient Summary [address] [id number] Visit Information Name: SAAD MURRAY [facility] Number: [id number] Current Date: 07/25/2016 15:05:47 Physicians Attending Provider: DEVORA BEAL YOUNG ADULT LIBRARIAN Primary Care Provider: DANYEL SOLIS PEER FINANCIAL COUNSELOR SAAD MURRAY has been given the following list of follow-up instructions, medication list, and patient education materials: Follow-up Instructions Your Medications Here is a list of your medications. It is important to take your medications as directed. Use a pillbox or chart to help remind you to take your medications. Please let your doctor or nurse know if you have problems taking your medications. Medication/Strength How to Take Indications/Special Instructions/Comments/Notes for Patient Medication Changes/Routing atorvastatin (atorvastatin 20 mg oral tablet) 1 Tablet(s), Oral, once a day (at bedtime) cyclobenzaprine (Flexeril 10 mg oral tablet) 1 Tablet(s), Oral, three times a day as needed for Muscle spasm x 10 day(s) New Routed to [address] [address] lisinopril-hydroCHLOROthiazide (lisinopril-hydroCHLOROthiazide 20mg-25mg oral tablet) 1 Tablet(s), Oral, once a day (Zestoretic) metoprolol (metoprolol succinate 25 mg oral tablet, extended release) 1 Tablet(s), Oral, once a day Take as needed for palpitations or if BP is higher than 140/90 pantoprazole (Protonix 40 mg oral delayed release tablet) 1 Tablet(s), Oral, once a day Stop Taking the Following Medications: Medication list as of 07-25-16 15:05 Attention: If you have any medications at home that are not on this list, DO NOT take them until youcontact your provider for clarification. Give a copy of your medication list to your primary care provider. Update your medication list any time medications or doses are changed and carry your medication list at all times in case of emergency. 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 Your Upcoming Appointments Date Time Location Provider No Appointments found Attention: Contact your local Clinic if further appointment detail needed. Consider Using Patient Online Services Patient Online [...] if you dont have one. Go to [email or web address] and click on Create Your Account. Then, follow the directions to complete the online form. Youll be asked for your [facility] number which you can find at the top of this document. Your Goals/Additional instructions: Source: [facility] POWERCHART Document Id: [id number] Miscellaneous - Devora Beal APRN, C.N.P. - 07/25/2016 3:05 PM CDT Ambulatory Discharge Medication List [address] [place], [place] [id number] Visit Information Name: SAAD MURRAY [facility] Number: [id number] Current Date: 07/25/2016 15:05:47 Attending Provider: DEVORA BEAL YOUNG ADULT LIBRARIAN Primary Care Provider: DANYEL SOLIS CNP SAAD MURRAY has been given the following list of medications: Your Medications It is important to take your medications as directed. Use a pill box or chart to help remind you to take your medications. Please let your doctor or nurse know if you have problems taking your medications. Medication/Strength How to Take Indications/Special Instructions/Comments/Notes for Patient Medication Changes/Routing atorvastatin (atorvastatin 20 mg oral tablet) 1 Tablet(s), Oral, once a day (at bedtime) cyclobenzaprine (Flexeril 10 mg oral tablet) 1 Tablet(s), Oral, three times a day as needed for Muscle spasm x 10 day(s) New Routed to [address] [address] lisinopril-hydroCHLOROthiazide (lisinopril-hydroCHLOROthiazide 20mg-25mg oral tablet) 1 Tablet(s), Oral, once a day (Zestoretic) metoprolol (metoprolol succinate 25 mg oral tablet, extended release) 1 Tablet(s), Oral, once a day Take as needed for palpitations or if BP is higher than 140/90 pantoprazole (Protonix 40 mg oral delayed release tablet) 1 Tablet(s), Oral, once a day Stop Taking the Following Medications: Medication list as of 07-25-16 15:05 Attention: If you have any medications at home that are not on this list, DO NOT take them until youcontact your provider for clarification. Give a copy of your medication list to your primary care provider. Update your medication list any time medications or doses are changed and carry your medication list at all times in case of emergency. Electronically Signed By: DEVORA BEAL YOUNG ADULT LIBRARIAN Signed On:25-JUL-2016 15:05:43 Additional Information: Source: [facility] POWERCHART Document Id: [id number] Miscellaneous - Wilmer Lyons C.M.A. - 07/25/2016 2:22 PM CDT Adult Utility Bag Assembler Intake/History Adult Utility Bag Assembler Intake/History Entered On: 07/25/2016 14:26 CDT Performed On: 07/25/2016 14:22 CDT by WILMER LYONS IN SERVICE EDUCATION TEACHER Intake Chief Complaint : Patient presents for hip pain, recent hernia repair. States never had XR's, would possibly like physical therapy as recent stretching has been helping. Ambulatory Intake Additional Information : Patient walks 40 min/day on treadmill. Temperature Core : 36.3 DegC(Converted to: 97.3 DegF) (LOW) Peripheral Pulse Rate : 91 /min Systolic Blood Pressure : 136 mmHg Diastolic Blood Pressure : 78 mmHg NIBP Mean : 97 mmHg BP Location : Right upper extremity Blood Pressure Cuff Size : Large SpO2 : 95 % Oxygen Therapy : Room air Height : 185 cm(Converted to: 6 ft 1 inch(es), 73 inch(es)) Actual Weight : 154.2 kg(Converted to: 339 lb 15 oz) Weight Source : Standing scale Dosing Weight Clinic : 154.2 kg Clinic BSA : 2.81 Body Mass Index : 45.05 kg/m2 WILMER LYONS [facility] - 07/25/2016 14:22 CDT General Info Information Given By : Patient Preferred Communication Mode : Verbal Languages : Ethiopian Is Patient Female and 13-50 no hysterectomy : No WILMER LYONS CMA - 07/25/2016 14:22 CDT Subjective Pain Symptoms : Yes WILMER LYONS CMA - 07/25/2016 14:22 CDT Pain Scale Pain Scale Verbal 0-10 : Open WILMER LYONS CMA - 07/25/2016 14:22 CDT Pain Pain Assessment Grid Pain 1 Location : Hip Intensity : 1 WILMER LYONS CMA - 07/25/2016 14:22 CDT Dependent Habits Exposure to Tobacco Smoke : Other: former smoker Smoking Status : Former smoker Tobacco 2A : Yes Tobacco Use/Currently Using : No Tobacco Use/Last 30 Days : No Tobacco Use/Last 12 months : No WILMER LYONS IN SERVICE EDUCATION TEACHER - 07/25/2016 14:22 CDT Source: [facility] POWERCHART Document Id: [id number] CDT!40 documented in this encounter Plan of Treatment Upcoming Encounters Date Type Specialty Care Team Description 02/15/2022 Office Visit Orthopedic Surgery Madyson Rosa, D.ONikhil [address] [place], [place] [phone] (Wo rk) documented as of this encounter Visit Diagnoses Not on filedocumented in this encounter
--- OUTSIDE RECORDS SUMMARY | 2022-01-25 11:41 | XMS_ITS | Encounter Summary ---
:1965 Author Organization [facility] Address [address] [place] [address] Care Team Providers Name Role Phone Norma Kenny APRN, C.N.P. 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 documented as of this encounter Last Filed Vital Signs Vital Sign Reading Time Taken Comments Blood Pressure 144/91 03/08/2017 1:20 PM MACHINE FEEDER RAW STOCK Pulse 104 03/08/2017 1:20 PM MACHINE FEEDER RAW STOCK Temperature 37.7 ??C (99.9 ??F) 03/08/2017 12:33 PM MACHINE FEEDER RAW STOCK Respiratory Rate 20 03/08/2017 1:20 PM MACHINE FEEDER RAW STOCK Oxygen Saturation 99% 03/08/2017 12:33 PM MACHINE FEEDER RAW STOCK Inhaled Oxygen Concentration - - Weight 145 kg (320 lb) 03/08/2017 12:34 PM MACHINE FEEDER RAW STOCK Height 185.4 cm (6' 1) 03/08/2017 12:34 PM MACHINE FEEDER RAW STOCK Body Mass Index 42.22 03/08/2017 12:34 PM MACHINE FEEDER RAW STOCK documented in this encounter Discharge Instructions Discharge InstructionsSebas Wesley M.D. - 03/08/2017 1:15 PM CST Your symptoms are coming from a pinched nerve in the lateral knee. This is called peroneal neuropathy. Treatment includes icing the lateral knee for 15 minutes 4 times a day, and using ibuprofen 600 mg 3times a day. Please avoid direct pressure along the lateral knee. You have no evidence of a stroke, however if you do developed other neurologic symptoms other than the numbness in the ge, this may warrant further evaluation. Please for follow-up with your regular provider in 3-5 days if needed. INE FEEDER RAW STOCK documented in this encounter Medications at Time of Discharge Medication Sig Dispensed Refills Start Date End Date lisinopril-hydroCHLOROthi Take 1 tablet by 0 08/05/201606/09/2017 azide mouth daily. (for_PRINZIDE,ZESTORETIC) 20-25 mg per tablet metoprolol succinate Take 1 tablet by 0 6 05/12/2017 (for_TOPROL-XL) 25 mg 24 mouth daily. hr tablet pantoprazole (PROTONIX) Take 1 tablet by 0 201607/11/2017 40 mg EC tablet mouth as needed. atorvastatin Take 1 tablet (20 mg 30 tablet 0 03/10/2017 (for_LIPITOR) 20 mg total) by mouth at tablet bedtime. Patient is due to yearly labs documented as of this encounter ED Notes Sebas Wesley M.D. - 03/08/2017 1:12 PM CST SUBJECTIVE CHIEF COMPLAINT/REASON FOR VISIT Numbness (of right ge area since this am) HISTORY OF PRESENT ILLNESS The patient is a 51-year-old male with a history of hypertension and dyslipidemia who presents for evaluation of numbness in the right anterior ge. He reports that his symptoms started this morning after he woke up in his recliner. He has slept in his recliner in the past, and has had occasional right anterior ge numbness. Typically the area of numbness is less than what he had today and resolvedafter 1-2 hours. He was able to walk on his treadmill for half an hour today and has had no weaknessin the right lower extremity. He has chronic right low back pain which has been relatively unchanged. He has no history of cancer. He has had no fevers or chills. He describes no recent injury. Bowel and bladder function have been normal. He is concerned that he may be having a stroke. He describes no other peripheral neurologic symptoms. He has had some right-sided facial pain with a headache, which he thinks is related to dental issues. REVIEW OF SYSTEMS Constitutional: Negative for chills and fever. HENT: Negative for congestion, ear discharge, sore throat and trouble swallowing. Eyes: Negative for visual disturbance. Respiratory: Negative for cough and shortness of breath. Cardiovascular: Negative for chest pain, palpitations and leg swelling. Gastrointestinal: Negative for abdominal pain, constipation, diarrhea, nausea and vomiting. Genitourinary: Negative for dysuria, frequency and urgency. Musculoskeletal: Negative for arthralgias and myalgias. Neurological: Positive for numbness and headaches. Negative for dizziness, tremors, seizures, syncope, facial asymmetry, speech difficulty, weakness, light-headedness and loss of balance. Psychiatric/Behavioral: Negative for confusion and depression. The patient is not nervous/anxious. OBJECTIVE Initial Vitals [03/08/17 1233] Temperature Pulse Rate Heart Rate Resp Rate Blood Pressure SpO2 37.7 ??C 104 -- 20 (!) 177/97 99 % Pain Score 0 - No pain PHYSICAL EXAMINATION Constitutional: He appears well-developed and well-nourished. He is cooperative. HENT: Head: Normocephalic and atraumatic. Nose: Nose normal. Mouth/Throat: Oropharynx is clear and moist. Mucous membranes are dry. Eyes: EOM are normal. Pupils are equal, round, and reactive to light. Neck: Normal range of motion. Neck supple. Cardiovascular: Normal rate, regular rhythm, S1 normal, S2 normal, normal heart sounds and intact distal pulses. Pulses are palpable. Capillary refill: takes less than 3 seconds, Pulmonary/Chest: Effort normal and breath sounds normal. There is normal air entry. Abdominal: Soft. Bowel sounds are normal. There is no tenderness. Musculoskeletal: Normal range of motion. Neurological: He is alert and oriented to person, place, and time. He has normal strength and intactcranial nerves. He displays no atrophy. Focal sensory deficits include right leg (decreased sensation of the anterior right ge from knee to ankle.). Normal speech. He has a normal rapid alternating movements , a normal heel to toe test, unimpaired heel to ge and unimpaired finger to nose. He displays a normal Romberg Test. Gait normal. GCS eye subscore is 4. GCS verbal subscore is 5. GCS motor subscore is 6. He displays no Babinski's sign on the right side. He displays no Babinski's sign on the left side. Reflex Scores: Bicep reflexes are 2+ on the right side and 2+ on the left side. Brachioradialis reflexes are 2+ on the right side and 2+ on the left side. Patellar reflexes are 2+ on the right side and 2+ on the left side. Achilles reflexes are 2+ on the right side and 2+ on the left side. Skin: Skin is warm and dry. Psychiatric: His speech pattern is normal. Judgment and thought content normal. His mood appears anxious. Cognition and memory are normal. ASSESSMENT/PLAN Impression and Plan The patient was reassured that he has no evidence of a stroke. 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 There are no other neurologic symptoms. We reviewed management which would include ice, and anti-inflammatory medication. I suspect that over the next 48 hours the symptoms would improve. If he has progression of neurologic symptoms he should return for re-evaluation, but at this point, based on his otherwise normal neurologic exam I see no indication for imaging of the lumbar spine or the brain to evaluate for a central problem. The patient appears very anxious. We reviewed management of anxiety. He would benefit from a follow up with his primary care provider in the next few days to discuss ongoing management of anxiety, and follow-up of the anterior ge numbness. The patient was discharged in stable condition.. ED Course Final Diagnoses: as of Mar 08 1337 Neuropathy Peroneal Right Sebas Wesley M.D. 03/08/17 1405 INE FEEDER RAW STOCK documented in this encounter Plan of Treatment Upcoming Encounters Date Type Specialty Care Team Description 02/15/2022 Office Visit Orthopedic Surgery Madyson Rosa D.ONikhil [address] [place], [place] [phone] (Wo rk) documented as of this encounter Visit Diagnoses Diagnosis Neuropathy Peroneal Right - Primary documented in this encounter Care Teams Mineral Industry Teacher Relationship Specialty Start Date End Date Norma Kenny APRN, C.N.P. PCP - General 09/12/[address] [place] [address] documented as of this encounter
--- OUTSIDE RECORDS SUMMARY | 2022-01-25 11:41 | XMS_ITS | Encounter Summary ---
:1965 Author Organization [facility] Address [address] [place] [address] Care Team Providers Name Role Phone Norma Kenny APRN CNikhilNNikhilPNikhil Primary Care Provider [phone] Reason for Visit Reason Comments Med Refill Encounter Details Date Type Department Care Team Description 05/12/2017 Refill Department of Family Medicine May Hernández, RNikhilNNikhil Med Refill in [facility] [address] [place] [phone] Social History Tobacco Use Types Packs/Day Years [...] How often do you attend yazdanism or judaism More than 4 time s [...] at Date Recorded Male 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 - 05/12/2017 12:12 PM CST Last ov;09/27/2016 Last Bp(03/08/17)=144/91 TENDER documented in this encounter Plan of Treatment Upcoming Encounters Date Type Specialty Care Team Description 02/15/2022 Office Visit Orthopedic Surgery Madyson Rosa, D.ONikhil [address] [place], [place] [phone] (Wo rk) documented as of this encounter Visit Diagnoses Not on filedocumented in this encounter Care Teams Ruby On Rails Developer Relationship Specialty Start Date End Date Norma Kenny APRN, C.N.P. PCP - General 09/12/[address] [place] [phone] documented as of this encounter
--- OUTSIDE RECORDS SUMMARY | 2022-01-25 11:41 | XMS_ITS | Encounter Summary ---
:1965 Author Organization [facility] Address [address] [place] [address] Care Team Providers Name Role Phone Norma Kenny APRN, C.NNikhilPNikhil Primary Care Provider [phone] Encounter Details Date Type Department Care Team Description 01/10/2017 Hospital Encounter [facility] Sebas Wesley M.D. [address] [place] [address] (Wo rk) Social History Tobacco [...] or relatives? How often do you attend adventist or yarsanism More than 4 time s per year 09/17/2018 services? 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 documented as of this encounter Plan of Treatment Upcoming Encounters Date Type Specialty Care Team Description 02/15/2022 Office Visit Orthopedic Surgery Madyson Rosa, D.ONikhil [address] [place], [place] [phone] (Wo rk) documented as of this encounter Visit Diagnoses Not on filedocumented in this encounter Care Teams Postmaster Relationship Specialty Start Date End Date Norma Kenny APRN, C.N.P. PCP - General 09/12/16 [address] [place] [phone] documented as of this encounter
--- OUTSIDE RECORDS SUMMARY | 2022-01-25 11:41 | XMS_ITS | Encounter Summary ---
:1965 Author Organization [facility] Address [address] [place] [address] Care Team Providers Name Role Phone Efraín Norma Salas APRN C.N.P. 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 - 01/22/2018 10:53 AM CDT Patient stopped into clinic, information relayed to patient, he verbalized understanding. He does have the phone number for PT, he will call to schedule. Telephone Encounter - Moira Butler C.M.A. - 01/21/2018 8:27 AM CDT LMTCB Telephone Encounter - Ame Beal APRN, C.N.PNikhil - 01/19/2018 4:10 PM CDT I would strongly recommend he see PT at least once for specific recs, and possible US treatment and myofascial release. He could be straight with them and inform them he would prefer only one visit. Then they could provide the appropriate program tailored to his sx that he could work on at home and return to PT if necessary. HAO Conroy Telephone Encounter - Carolyn Murray, KeriMGilson - 01/16/2018 11:33 AM CDT Spoke with Twin and he states he has not yet started any PT for his back or shoulders. He would prefer to do it at home. He is wondering if Ame could print off some literature and home exercises for him to try. He would like to stop in clinic on Friday to pick it up when Ame returns. Telephone Encounter - Moira Butler C.M.A. - 01/14/2018 9:51 AM CDT LMTCB Telephone Encounter - Ame Beal APRN C.N.PNikhil - 01/13/2018 3:36 PM CDT If you have time, could you please call patient and inquire how physical therapy is working for his back/shoulder pain? Thanks, HAO documented in this encounter Plan of Treatment Upcoming Encounters Date Type Specialty Care Team Description 02/15/2022 Office Visit Orthopedic Surgery Madyson Rosa, D.ONikhil [address] [place], [place] [phone] (Wo rk) documented as of this encounter Visit Diagnoses Not on filedocumented in this encounter Additional Health Concerns Assessment Noted Time PHQ-9 Depression Total Score: 4 07/11/2017 8:29 AM CDT documented as of this encounter Care Teams Field Attendant Relationship Specialty Start Date End Date Norma Kenny APRN, C.N.P. PCP - General 09/12/[address] [place] [phone] documented as of this encounter
--- OUTSIDE RECORDS SUMMARY | 2022-01-25 11:41 | XMS_ITS | Encounter Summary ---
:1965 Author Organization [facility] Address [address] [place] [address] Care Team Providers Name Role Phone Norma Kenny APRN, C.N.P. Primary Care Provider [phone] Encounter Details Date Type Department Care Team Description 12/26/2017 Orders Only Department of Family Ame Beal Pai n Thoracic Spine (Primary Dx); Medicine in [facility] STEVEN, C.N.P., Pain Should er Left [place], [place] R.N. 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 PCP - General 09/12/[address] [place] [phone] documented as of this encounter
--- OUTSIDE RECORDS SUMMARY | 2022-01-25 11:41 | XMS_ITS | Encounter Summary ---
:1965 Author Organization [facility] Address [address] [place] [address] Care Team Providers Name Role Phone Laurynbrittani Norma Salas APRN, C.N.P. Primary Care Provider [phone] Encounter Details Date Type Department Care Team Description 09/27/[address] [facility] Nohemi Pablo i, STEVEN, C.N.P., R. N. 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 documented as of this encounter Last Filed Vital Signs Vital Sign Reading Time Taken Comments Blood Pressure 138/86 09/27/2016 11:27 AM CDT Pulse 80 09/27/2016 11:27 AM CDT Temperature - - Respiratory Rate - - Oxygen Saturation - - Inhaled Oxygen Concentration - - Weight 152 kg (335 lb 1.6 oz) 09/27/2016 11:27 AM CDT Height 185 cm (6' 0.84) 09/27/2016 11:27 AM CDT Body Mass Index 44.41 09/27/2016 11:27 AM CDT documented in this encounter Medications at Time of Discharge Medication Sig Dispensed Refills Start Date End Date atorvastatin (for_LIPITOR) Take 1 tablet by 0 03/06/2017 20 mg tablet mouth at bedtime. metoprolol succinate Take 1 tablet by 0 6 05/12/2017 (for_TOPROL-XL) 25 mg 24 mouth daily. hr tablet documented as of this encounter Progress Notes Ame Beal, STEVEN, C.N.P. - 09/27/2016 10:54 AM CDT [id number] CHIEF COMPLAINT/REASON FOR VISIT Back pain. HISTORY OF PRESENT ILLNESS Saad is a 50-year-old, here today for complaints of right groin pain. He was previously seen for back pain last in June, that was improving with stretching and walking on the treadmill. He has a minimal concern for the back pain. About a month ago, he had some pain starting to his right groin. He reports that he was still walking about 40 minutes per day on the treadmill and very busy at work. Itwas hard physical labor and walking on a steep roof. He notices that with the cough he is able to feel a lump down there, but no pain. About 10 days ago, he actually stopped walking on the treadmill asthat was aggravating the pain. 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 He currently has no pain with walking. It seemsto be worse if he turns too fast to get out of bed. No pain at visit today. No radiation to the leg.Denies any urinary concerns or changes. No change to bowel movement either. Denies fever. He has been trying some ibuprofen and ice for the pain. MEDICATIONS Atorvastatin 20 mg at bedtime. Lisinopril/hydrochlorothiazide 20/25 mg tablet daily. Metoprolol succinate 25 mg as needed for palpitations, which he does not take. Protonix 40 mg daily. ALLERGIES No known allergies. SYSTEMS REVIEW Review of systems per HPI. He denies activity intolerance, swelling or shortness of breath. All other systems negative at this time. PAST MEDICAL/SURGICAL HISTORY Significant for: Umbilical hernia repair, 04/12/2016. Chronic low back pain. SOCIAL HISTORY December 2015. Former smoker. Quit in his 20s. 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 FAMILY HISTORY Negative for hernia. Negative for sudden unexplained in a family member under age 50, a singlemotor vehicle accident or drowning. VITAL SIGNS Temperature 36.7 degrees Celsius, heart rate 80, blood pressure 138/86, oxygen saturation 97% on room air. Height 185 cm, weight 152 kg, BMI 44.41. PHYSICAL EXAMINATION GENERAL: Saad is alert and oriented. In no acute distress. SKIN: Warm and dry. CARDIAC: Regular rate and rhythm. No murmur or extra sound. RESPIRATORY: Lung sounds clear throughout all lobes. ABDOMEN: Soft. Some mild tenderness to that right lower to mid abdomen. No masses noted with Valsalva maneuver. GROIN: Aliya Cortez LPN present for exam. With patient in supine palpation of the groin revealed no masses, both at rest or with Valsalva maneuver. He had tenderness with palpation over the right groin and extending out to the right lateral hip. Overlying skin within normal limits. NEUROLOGIC: Patellar DTRs symmetric. MUSCULOSKELETAL: Normal gait and posture. Able to squat without difficulty or hesitation. Full active range of motion at the waist, although he did have some pain with lateral movements. IMPRESSION/PLAN: 1. Right lower abdominal and groin pain. I discussed with Saad differentials including hernia, muscle strain or hip pathology. He is currently afebrile without any adverse or concerning symptoms. I recommended he try ibuprofen 800 mg 3 times daily for 7 days. He will use caek-jqo-slmekah supply he has at home. After 7 days, may return to as directed as needed. Recommended ice or heat to the area 20 minutes at a time, whichever feels best. Encouraged limiting aggravating activities, but continue the stretches. If over the next 5 to 7 days, his symptoms worsen or do not improve he may notify provider. Would start with an x-ray of the right hip and then if that is negative consider ultrasound of the right lower abdomen. Discussed symptoms of incarcerated hernia and when to present to the emergency department. Otherwise, follow up as needed and described above. All questions of Saad answered at visit. He stated understanding and agreement with the current plan. 2. He was also here for recheck of his EKG. The EKG was unchanged from 03/15/2016 showing minimal voltage criteria for LVH, but may be normal variant. He has a negative family history for cardiac issueand is currently asymptomatic. We will continue to monitor for symptoms and obtain and obtain further testing should symptoms occur. Saad was comfortable with this plan. All questions of patient answered at visit. He stated understanding and agreement with the current plan. Ame Beal APRN, C.N.P./pos Electronically Signed By: AME BEAL APRN, CNP On: 10/15/2016 09:54 PM Modified by and Electronically Signed by: AME BEAL APRN, CNP On: 10/15/2016 09:54 PM Source: [facility] MHSDOLBEYNONRADSYS Document Id: [id number] documented in this encounter Miscellaneous Notes Miscellaneous - Ame Beal APRN, C.N.P. - 09/27/2016 3:41 PM CDT Ambulatory Patient Summary [address] [id number] Visit Information Name: SAAD MURRAY [facility] Number: [id number] Current Date: 09/27/2016 15:41:34 Physicians Attending Provider: AME BEAL APRN, CNP Primary Care Provider: NORMA SOLIS CNP SAAD MURRAY has been given [...] Tablet(s), Oral, once a day (at bedtime) lisinopril-hydroCHLOROthiazide (lisinopril-hydroCHLOROthiazide 20mg-25mg oral tablet) 1 Tablet(s), Oral, once a day (Zestoretic) metoprolol (metoprolol succinate 25 mg oral tablet, extended release) 1 Tablet(s), Oral, once a day Take as needed for palpitations or if BP is higher than 140/90 pantoprazole (Protonix 40 mg oral delayed release tablet) 1 Tablet(s), Oral, once a day Stop Taking the Following Medications: Medication list as of 09-27-16 15:41 Attention: If you have any medications at home that are not on this list, DO NOT take them until youcontact your provider for clarification. Give a copy of your medication list to your primary care provider. Update your medication list any time medications or doses are changed and carry your medication list at all times in case of emergency. Electronically Signed By: AME BEAL APRN, CNP Signed On:27-SEP-2016 15:41:31 Your Allergies & Intolerances Substance Reaction Symptoms Category Comments No Known Allergies Drug Your Problem List Problem Status Onset Comments HTN [Hypertension] Active GERD [Gastroesophageal reflux disease] Active Hyperlipidemia NOS Active Hyperglycemia Active Body mass index (BMI) 40.0-44.9, adult Active 09/27/16 Rule activated problem due to BMI 40-44 posted on 09/27 at 11:27 CDT. Your Upcoming Appointments Date Time Location Provider [...] if you dont have one. Go to [email or web address] and click on Create Your Account. Then, follow the directions to complete the online form. Youll be asked for your [facility] number which you can find at the top of this document. Your Goals/Additional instructions: Source: [facility] POWERCHART Document Id: [id number] Miscellaneous - Ame Beal APRN, C.N.P. - 09/27/2016 3:41 PM CDT Ambulatory Discharge Medication List [address] [id number] Visit Information Name: SAAD MURRAY [facility] Number: [id number] Current Date: 09/27/2016 15:41:33 Attending Provider: AME BEAL APRN, CNP Primary Care Provider: NORMA SOLIS CNP SAAD MURRAY has been given [...] Tablet(s), Oral, once a day (at bedtime) lisinopril-hydroCHLOROthiazide (lisinopril-hydroCHLOROthiazide 20mg-25mg oral tablet) 1 Tablet(s), Oral, once a day (Zestoretic) metoprolol (metoprolol succinate 25 mg oral tablet, extended release) 1 Tablet(s), Oral, once a day Take as needed for palpitations or if BP is higher than 140/90 pantoprazole (Protonix 40 mg oral delayed release tablet) 1 Tablet(s), Oral, once a day Stop Taking the Following Medications: Medication list as of 09-27-16 15:41 Attention: If you have any medications at home that are not on this list, DO NOT take them until youcontact your provider for clarification. Give a copy of your medication list to your primary care provider. Update your medication list any time medications or doses are changed and carry your medication list at all times in case of emergency. Electronically Signed By: AME BEAL APRN, CNP Signed On:27-SEP-2016 15:41:31 Additional Information: Source: [facility] POWERCHART Document Id: [id number] Miscellaneous - Wilmer Lyons C.M.A. - 09/27/2016 11:27 AM CDT Adult Freight Clerk Intake/History Adult Freight Clerk Intake/History Entered On: 09/27/2016 11:31 CDT Performed On: 09/27/2016 11:27 CDT by WILMER LYONS [facility] Intake Chief Complaint : Patient presents for back issues. Temperature Core : 36.7 DegC(Converted to: 98.1 DegF) Peripheral Pulse Rate : 80 /min Systolic Blood Pressure : 138 mmHg Diastolic Blood Pressure : 86 mmHg NIBP Mean : 103 mmHg BP Location : Right upper extremity Blood Pressure Cuff Size : Large SpO2 : 97 % Oxygen Therapy : Room air Height : 185 cm(Converted to: 6 ft 1 inch(es), 73 inch(es)) Actual Weight : 152.0 kg(Converted to: 335 lb 2 oz) Weight Source : Standing scale Dosing Weight Clinic : 152 kg Clinic BSA : 2.79 Body Mass Index : 44.41 kg/m2 WILMER LYONS [facility] - 09/27/2016 11:27 CDT General Info Information Given By : Patient Preferred Communication Mode : Verbal Languages : Azeri Is Patient Female and 13-50 no hysterectomy : No WILMER LYONS CMA - 09/27/2016 11:27 CDT Subjective Pain Symptoms : Yes WILMER LYONS CMA - 09/27/2016 11:27 CDT Pain Scale Pain Scale Verbal 0-10 : Open WILMER LYONS CMA - 09/27/2016 11:27 CDT Pain Pain Assessment Grid Pain 1 Location : Groin WILMER LYONS CMA - 09/27/2016 11:27 CDT Dependent Habits Exposure to Tobacco Smoke : Other: former smoker Smoking Status : Former smoker Tobacco 2A : Yes Tobacco Use/Currently Using : No Tobacco Use/Last 30 Days : No Tobacco Use/Last 12 months : No WILMER LYONS [employer]ER - 09/27/2016 11:27 CDT Source: [facility] POWERCHART Document Id: [id number] CDT!38 documented in this encounter Plan of Treatment Upcoming Encounters Date Type Specialty Care Team Description 02/15/2022 Office Visit Orthopedic Surgery Madyson Rosa il, D.ONikhil [address] [place], [place] [phone] (Wo rk) documented as of this encounter Visit Diagnoses Not on filedocumented in this encounter Care Teams Windows Systems Admin Relationship Specialty Start Date End Date Norma Solis APRN, C.N.P. PCP - General 09/12/[address] [place] [phone] documented as of this encounter
--- OUTSIDE RECORDS SUMMARY | 2022-01-25 11:41 | XMS_ITS | Encounter Summary ---
:1965 Author Organization [facility] Address [address] [place] [address] Care Team Providers Name Role Phone Norma Kenny APRN CNikhilNNikhilPNikhil Primary Care Provider [phone] Reason for Visit Reason Comments Hypertension BP check Encounter Details Date Type Department Care Team Description 08/18/2017 Nurse Only Department of Family Aliya Cortez H ypertension (BP check) Medicine in [place], [place] [phone] [address] [facility] (Work) [place] [phone] Social History Tobacco Use Types Packs/Day Years [...] How often do you attend faith or worship More than 4 time s per year [...] Date Recorded 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 - 08/18/2017 10:15 AM CDT S-In for BP check after restarting medication and compare BP machine. B-Pt re-started BP medication A- BP 134/74 pulse 97. Pt demonstrated his BP cuff and reported in the high 150/90s. BP cuff was small in comparison and did not fit appropriately. Had Pt try BP on forearm with arm above heart level which resulted in similar readings to the manual. R- Will inform PCP of current reading and will call if any changes need to be made. Pt amendable to plan. documented in this encounter Plan of Treatment Upcoming Encounters Date Type Specialty Care Team Description 02/15/2022 Office Visit Orthopedic Surgery Madyson Rosa, D.ONikhil [address] [place], [place] [phone] (Wo rk) documented as of this encounter Visit Diagnoses Not on filedocumented in this encounter Additional Health Concerns Assessment Noted Time PHQ-9 Depression Total Score: 4 07/11/2017 8:29 AM CDT documented as of this encounter Care Teams Dental Services Director Relationship Specialty Start Date End Date Norma Kenny APRN, C.N.P. PCP - General 09/12/[address] [place] [phone] documented as of this encounter
--- OUTSIDE RECORDS SUMMARY | 2022-01-25 11:42 | XMS_ITS | Encounter Summary ---
:1965 Author Organization [facility] Address [address] [place] [address] Care Team Providers Name Role Phone Unavailable Primary Care Provider Unavailable Encounter Details Date Type Department Care Team Description 02/17/2015 Hospital Encounter HX NO MAPPING Norma Kenny, APR N, C.N.P. 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 documented as of this encounter Miscellaneous Notes Miscellaneous - Conversion, Historical Provider Ser - 02/17/2015 11:59 PM RN SURGERY ICU Coding Summary-Paper Based CODING DATE: 03/15/2015 FINAL [facility] STATUS: * Discharged to Home or Self Care PAYOR: [employer] ADMIT DX: REASON FOR VISIT DX: FINAL DX: PRINCIPAL: Z00.00 Encounter for general adult medical examination without abnormal findings SECONDARY: I10 Essential (primary) hypertension E66.01 Morbid (severe) obesity due to excess calories R20.0 Anesthesia of skin PROCEDURES DOCTOR NAME DATE NOTE: The code number assigned matches the documented diagnosis and / or procedure in the patient's chart. However, the narrative phrase printed from the coding software may appear abbreviated, or result in slightly different terminology. Coded By: FLORESITA CARDOSO Date Saved: 03/15/2015 11:55 am [facility] Document Id: [id number] documented in this encounter Plan of Treatment Upcoming Encounters Date Type Specialty Care Team Description 02/15/2022 Office Visit Orthopedic Surgery Madyson Rosa D.ONikhil [address] [place] [phone] (Wo rk) documented as of this encounter Visit Diagnoses Not on filedocumented in this encounter
--- OUTSIDE RECORDS SUMMARY | 2022-01-25 11:42 | XMS_ITS | Encounter Summary ---
:1965 Author Organization [facility] Address [address] [place] [address] Care Team Providers Name Role Phone Unavailable Primary Care Provider Unavailable Encounter Details Date Type Department Care Team Description 08/17/2015 Hospital Encounter HX [facility] Norma Solis, STEVEN, C.N.P. 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 hr tablet documented as of this encounter Miscellaneous Notes Miscellaneous - Jeannette Gleason L.P.N. - 08/18/2015 4:15 PM CDT Normal Results Letter August 18, 2015 SAAD MURRAY [address] [facility], [place] [address] Dear SAAD MURRAY, Your recent lab results indicate your cholesterol is elevated. Your provider has sent a prescriptionto your pharmacy. She recommends Atorvastatin 20mg at bedtime every night. We will recheck your Cholesterol levels in 3 months to determine if this medications is working for you. Your liver enzymes are elevated, your provider recommends avoiding any alcohol use as well as avoiding excessive Tylenol use. Your glucose is mildly elevated inidicating pre-diabetes. We will recheck these levels in 6-12 months time. Your provider encourages you to make some definate lifestyle changes with regard to diet and exercise to improve these results. If you have any questions or concerns please do not hesitate to contact our clinic at [phone]. Result Name Current Result Normal Range ALT (U/L) 100 08/17/2015 7 - 55 Albumin Lvl (g/dL) 4.6 08/17/2015 3.5 - 5.2 Alkaline Phosphatase (U/L) 86 08/17/2015 40 - 130 AST (U/L) 69 08/17/2015 8 - 48 Sodium Lvl (mmol/L) 137 08/17/2015 135 - 145 Potassium Lvl (mmol/L) 5.0 08/17/2015 3.5 - 5.1 Chloride (mmol/L) 94 08/17/2015 98 - 107 CO2 (mmol/L) 30 08/17/2015 22 - 29 Glucose Fasting (mg/dL) 112 08/17/2015 70 - 99 BUN (mg/dL) 18 08/17/2015 6 - 24 Creatinine (mg/dL) 0.8 08/17/2015 0.8 - 1.3 Calcium Lvl (mg/dL) 10.4 08/17/2015 8.6 - 10.3 drw10 AGAP (mmol/L) 13 08/17/2015 7 - 15 EGFR (MDRD) (mL/min/SA) >60.0 08/17/2015 >=60.0 - EGFR (MDRD) (mL/min/SA) >60.0 08/17/2015 >=60.0 - Bili Total (mg/dL) 1.0 08/17/2015 - <=1.2 Protein Total (g/dL) 7.4 08/17/2015 6.3 - 7.9 Cholesterol (mg/dL) 254 08/17/2015 - <=199 HDL (mg/dL) 46 08/17/2015 >=40 - Trig (mg/dL) 113 08/17/2015 - <=149 LDL Calculated (mg/dL) 185 08/17/2015 - <=129 Sincerely, JEANNETTE GLEASON Electronic Signature Electronically Signed By: JEANNETTE GLEASON LPN On: August 18, 2015 This document has images extracted. Source: [facility] POWERCHART Document Id: [id number] Miscellaneous - Norma Solis APRN, C.N.P. 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 Reviewed the liver results and the cholesterol results specifically. He states he will gradually cut back on alcohol and doesnt feel his diet is just too badbut will try to improve that as well.Pt states they eat athome most of the time. I gave him the web site [employer] to help him see and understand how what we think is healthy food can be not so healthy. 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 Pt agreeable to repeat labs in 3 months. Encouraged a call to clinics if any furher questions or concerns. Please advise if any other informations is needed and place order for desired labs for 3 months out.Thank you Addendum by JEANNETTE GLEASON LPN on August 23, 2015 09:21:35 CDT unable to contact pt by phone, message left to follow up on results and recommendations letter sent. Does patient have any questions or concerns? Addendum by JEANNETTE GLEASON LPN on August 18, 2015 16:17:43 CDT Results letter sent with recommendations as stated below. Addendum by JEANNETTE GLEASON LPN on August 18, 2015 15:49:32 CDT left message to call clinic for lab results and recommendations. From: NORMA SOLIS CNP To: JEANNETTE GLEASON LPN; Sent: 08/18/2015 14:45:24 CDT Show up: 08/18/2015 14:44:00 CDT Subject: Results Notification Cholesterol elevated, will start on atorvastatin 20mg nightly, I will send to pharmacy. Recheck lipids and liver in 3 months. Avoid any alcohol as his liver enzymes were elevated, and excessive tylenol. Glucose mildly elevated, pre- diabetes, will recheck in 6-12 months. Patient should be encouraged tomake some definite lifestyle changes in regards to diet and exercise. He will see Cardiology on Friday. TK Results: Date Result Name Ind Value Ref Range 08/17/2015 09:30 Sodium Lvl 137 mmol/L (135 - 145) 08/17/2015 09:30 Potassium Lvl 5.0 mmol/L (3.5 - 5.1) 08/17/2015 09:30 Chloride (L) 94 mmol/L (98 - 107) 08/17/2015 09:30 CO2 (H) 30 mmol/L (22 - 29) 08/17/2015 09:30 AGAP 13 mmol/L (7 - 15) 08/17/2015 09:30 Alkaline Phosphatase 86 U/L (40 - 130) 08/17/2015 09:30 Glucose Fasting (H) 112 mg/dL (70 - 99) 08/17/2015 09:30 Creatinine 0.8 mg/dL (0.8 - 1.3) 08/17/2015 09:30 EGFR (MDRD) >60.0 mL/min/SA (>=60.0 - ) 08/17/2015 09:30 EGFR (MDRD) >60.0 mL/min/SA (>=60.0 - ) 08/17/2015 09:30 BUN 18 mg/dL (6 - 24) 08/17/2015 09:30 Calcium Lvl (H) 10.4 mg/dL (8.6 - 10.3) 08/17/2015 09:30 Protein Total 7.4 g/dL (6.3 - 7.9) 08/17/2015 09:30 Albumin Lvl 4.6 g/dL (3.5 - 5.2) 08/17/2015 09:30 AST (H) 69 U/L (8 - 48) 08/17/2015 09:30 ALT (H) 100 U/L (7 - 55) 08/17/2015 09:30 Bili Total 1.0 mg/dL ( - <=1.2) 08/17/2015 09:30 Cholesterol (H) 254 mg/dL ( - <=199) 08/17/2015 09:30 Trig 113 mg/dL ( - <=149) 08/17/2015 09:30 HDL 46 mg/dL (>=40 - ) 08/17/2015 09:30 LDL Calculated (H) 185 mg/dL ( - <=129) Source: [facility] POWERCHART Document Id: [id number] Electronically signed by Conversion, [facility] Psychiatry Teacher [id number] at 08/24/2016 2:10 PM CDT documented in this encounter Plan of Treatment Upcoming Encounters Date Type Specialty Care Team Description 02/15/2022 Office Visit Orthopedic Surgery Madyson Rosa D.ONikhil [address] [place], [place] [phone] (Wo rk) documented as of this encounter Procedures Procedure Name Priority Date/Time Associated Comments Diagnosis LIPID PANEL, S Routine 08/17/2015 9:30 AM Results for this CDT procedure are i n the results section. COMPREHENSIVE Routine 08/17/2015 9:30 AM Results for this METABOLIC PANEL, S/P CDT procedu re are in the results section. documented in this encounter Results (ABNORMAL) CMP (Comprehensive Metabolic Panel) (08/17/2015 9:30 AM CDT) [facility] gist Method Time Signature Alanine 100 (H) 7 - 55 UL POWERCHART Amniotransferase, LD Albumin, S 4.6 3.5 - 5.2 POWERCHART GDL Alkaline 86 40 - 130 POWERCHART Phosphatase, S UL Aspartate 69 (H) 8 - 48 UL POWERCHART Aminotransferase (AST), S Sodium, S 137 135 - 145 POWERCHART MMOLL Potassium, S 5.0 3.5 - 5.1 POWERCHART MMOLL Chloride, S 94 (L) 98 - 107 POWERCHART MMOLL CO2 Total 30 (H) 22 - 29 POWERCHART MMOLL Glucose, Fasting, S 112 (H) 70 - 99 POWERCHART MGDL BUN (Blood Urea 18 6 - 24 POWERCHART Nitrogen), S MGDL Creatinine 0.8 0.8 - 1.3 POWERCHART MGDL Calcium, Total, S 10.4 (H) 8.6 - 10.3 POWERCHART MGDL Anion Gap 13 7 - 15 POWERCHART MMOLL HXeGFR (MDRD) >60.0 >=60.0 POWERCHART MLMINSA eGFR Black/ >60.0 >=60.0 POWERCHART [place] MLMINSA Bilirubin, Total, S 1.0 <=1.2 MGDL POWERCHAR T Total Protein, S 7.4 6.3 - 7.9 POWERCHART GDL Specimen (Source) Anatomical Collection Method Collection Time Re ceived Time Location / / Volume Laterality Blood 08/17/2015 9:30 AM CDT Norma Solis APRN C.N.P. LAB BLOOD ADD-ON Performing Organization Address City/State/ZIP Code Phon e Number POWERCHART (ABNORMAL) Lipid Panel (08/17/2015 9:30 AM CDT) P athologist Signature Cholesterol, 254 (H) <=199 MGDL POWERCHART Total Comment: 2014 National Lipid Association recommen dations for Total Cholesterol in adults ages 18 and up: Desirable <200 mg/dL Borderline high 200-239 mg/dL High 240 mg/dL 2014 National Lipid Association recommen dations for Total Cholesterol in children ages 2 to 17. Acceptable <170 mg/dL Borderline High 170-199 mg/dL High 200 mg/dL HX HDL 46 >=40 MGDL POWERCHART Comment: 2014 National Lipid Association recommen dations for HDL-C in adults ages 18 and up: Low <40 mg/dL (Men) Low <50 mg/dL (Women) 2014 National Lipid Association recommen dations for HDL-C in children ages 2 to 17. Low <40 mg/dL Borderline Low 40-45 mg/dL Acceptable >45 mg/dL Triglycerides 113 <=149 MGDL POWERCHART Comment: 2014 National Lipid Association recommen dations for Triglycerides in adults ages 18 and up: Normal <150 mg/dL Borderline High 150-199 mg/dL High 200-499 mg/dL Very High 500 mg/dL 2014 National Lipid Association recommen dations for Triglycerides in children ages 2 to 9. Acceptable <75 mg/dL Borderline High 75-99 mg/dL High 100 mg/dL 2014 National Lipid Association recommen dations for Triglycerides in children ages 10 to 17. Acceptable <90 mg/dL Borderline High 90-129 mg/dL High 130 mg/dL Trigs >400mg/dL: Triglycerides >400 mg/ dL. Calculated LDL cholesterol is not valid. Non-HDL cholesterol may be used for risk assessment when triglycerides are >400mg/dL. Calculated LDL 185 (H) <=129 MGDL POWERCHART Comment: 2014 National Lipid Association recommen dations for LDL-C in adults ages 18 and up: Desirable <100 mg/dL Above desirable 100-129 mg/dL Borderline high 130-159 mg/dL High 160-189 mg/dL Very High 190 mg/dL 2014 National Lipid Association recommen dations for LDL-C in children ages 2 to 17. Acceptable <110 mg/dL Borderline High 110-129mg/dL High 130 mg/dL LDL-C >190mg/dL: The markedly elevated LDL level is suggestive of a genetic condition such as familial hypercholesterolemia(FH) or familial defective apolipoprotein B-100 (FDB). Molecular genetic t esting for FH and FDB is available [facility]: FH/ADH Genetic Reflex [place] (test ADHP). Acquired (non-genetic) causes of markedly increased LDL cholesterol include cholestatic liver disease due to the presence of LpX. If a genetic form of hypercholesterolemia is suspected, family studies including biochemical testing fo r lipids (total cholesterol,triglycerides, LDL cholesterol and HDL cholesterol) are recommended. ??Please contact the laboratory at or the on-line test catalog at [facility] for information about how to order these danette ts or to speak with a genetic counselor. Further interpretation would require clinical information. Specimen (Source) Anatomical Collection Method Collection Time Re ceived Time Location / / Volume Laterality Blood 08/17/2015 9:30 AM CDT Norma Solis APRN, C.N.P. LAB BLOOD ADD-ON Performing Organization Address City/State/ZIP Code Phon e Number POWERCHART documented in this encounter Visit Diagnoses Not on filedocumented in this encounter
--- OUTSIDE RECORDS SUMMARY | 2022-01-25 11:42 | XMS_ITS | Encounter Summary ---
:1965 Author Organization [facility] Address [address] [place] [address] Care Team Providers Name Role Phone Unavailable Primary Care Provider Unavailable Encounter Details Date Type Department Care Team Description 08/08/2015 Hospital Encounter HX [facility] Norma Kenny A PRN, C.N.P. 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 hr tablet documented as of this encounter Miscellaneous Notes Miscellaneous - Alan Jenkins Provider Ser - 08/09/2015 9:16 AM CDT Coding Summary-Paper Based CODING DATE: 08/09/2015 FINAL [facility] STATUS: * Discharged to Home or Self Care PAYOR: [employer] ADMIT DX: REASON FOR VISIT DX: FINAL DX: PRINCIPAL: R51 Headache SECONDARY: PROCEDURES DOCTOR NAME DATE NOTE: The code number assigned matches the documented diagnosis and / or procedure in the patient's chart. However, the narrative phrase printed from the coding software may appear abbreviated, or result in slightly different terminology. Coded By: JUAN PABLO MULTANI Date Saved: 08/09/2015 09:16 am Source: [facility] Document Id: [id number] documented in this encounter Plan of Treatment Upcoming Encounters Date Type Specialty Care Team Description 02/15/2022 Office Visit Orthopedic Surgery RavinwaMadyson haq, D.ONikhil [address] [place] [phone] (Wo rk) documented as of this encounter Procedures Procedure Name Priority Date/Time Associated Diagnosis Comme nts CT HEAD WITHOUT IV Routine 08/08/2015 3:54 PM Res ults for this CONTRAST CDT procedure are i n the results section. documented in this encounter Results CT Head without IV Contrast (08/08/2015 3:54 PM CDT) Anatomical Region Laterality Modality Head N/A Computed Tomography Specimen (Source) Anatomical Collection Method Collection Time Re ceived Time Location / / Volume Laterality 08/08/2015 3:54 PM CDT Addenda Addendum by ProviderAlan M.D. o n 08/08/2015 3:54 PM CDT RAD^^^MA CT Head w/o contrast 08/08/2015 15:54:45 Impressions 08/08/2015 4:05 PM CDT Normal unenhanced head CT. Narrative 08/08/2015 4:05 PM CDT EXAM: CT Head w/o contrast INDICATION: sharp pains left side, worse kamilah past 5 days COMPARISON: None. FINDINGS: CT bone windows are unremarkab le. Visualized portions of the paranasal sinuses and mastoid air ce lls are normal. Intracranially the ventricular system an d cerebral sulci are within normal limits. No intracranial or intrac erebral hemorrhage is identified and there is no mass effect o r midline shift. No areas of decreased attenuation suspicious for micki lving infarct or edema are noted. Procedure Note Srinivas Victoria Jr., M.D. / Alan Krueger M.D. - 08/02/2016 EXAM: CT Head w/o contrast INDICATION: sharp pains left side, worse kamilah past 5 days COMPARISON: None. FINDINGS: CT bone windows are unremarkab le. Visualized portions of the paranasal sinuses and mastoid air ce lls are normal. Intracranially the ventricular system an d cerebral sulci are within normal limits. No intracranial or intrac erebral hemorrhage is identified and there is no mass effect o r midline shift. No areas of decreased attenuation suspicious for micki lving infarct or edema are noted. IMPRESSION: Normal unenhanced head CT. Bri Matt(R)(CT), R.T.(R) IMG CT PROCEDURES documented in this encounter Visit Diagnoses Not on filedocumented in this encounter
--- OUTSIDE RECORDS SUMMARY | 2022-01-25 11:42 | XMS_ITS | Encounter Summary ---
:1965 Author Organization [facility] Address [address] [place] [address] Care Team Providers Name Role Phone Unavailable Primary Care Provider Unavailable Encounter Details Date Type Department Care Team Description 03/05/2016 Hospital Encounter HX [facility] Jaziel Dao M.D. Social History Tobacco Use Types Packs/Day Years [...] How often do you attend buddhism or rastafarian More than 4 time s [...] at Date Recorded Male 03/25/2018 1:01 PM RE EXAMINER documented as of this encounter Last Filed Vital Signs Vital Sign Reading Time Taken Comments Blood Pressure 151/86 03/05/2016 8:10 AM RE EXAMINER Pulse 97 03/05/2016 8:10 AM RE EXAMINER Temperature - - Respiratory Rate 16 03/05/2016 8:10 AM RE EXAMINER Oxygen Saturation - - Inhaled Oxygen Concentration - - Weight 154 kg (339 lb 4.6 oz) 03/05/2016 8:10 AM RE EXAMINER Height 185 cm (6' 0.84) 03/05/2016 8:10 AM RE EXAMINER Body Mass Index 44.97 03/05/2016 8:10 AM RE EXAMINER documented in this encounter Medications at Time of Discharge Medication Sig Dispensed Refills Start Date End Date atorvastatin (for_LIPITOR) Take 1 tablet by 0 03/06/2017 20 mg tablet mouth at bedtime. metoprolol succinate Take 1 tablet by 0 6 05/12/2017 (for_TOPROL-XL) 25 mg 24 mouth daily. hr tablet documented as of this encounter Consult Notes Dar Dao M.D. - 03/05/2016 7:59 AM CST [id number] This is a 50-year-old male who is referred by Danyel Solis APRN, C.N.P., because of the enlarging umbilical hernia. The patient noticed the umbilical hernia about 3 months ago. He has not had symptoms related to it but it is getting larger. The patient has morbid obesity with a BMI of 46. 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 PAST MEDICAL/SURGICAL HISTORY PAST MEDICAL HISTORY: Does not include any major surgery although he did have a vasectomy back in 2004. He is medical problems include: The morbid obesity with a BMI of 46. He does have hyperlipidemia. Hypertension. He has had some esophageal reflux for many years. He was a former smoker but quit 20 years ago. SOCIAL HISTORY As I said, he has a construction business. His I believe in December from breast cancer. He has 2 children, 1 is a hector in high school and the other is in college. VITAL SIGNS Blood pressure 151/86. His weight is 153.9 kg, BMI measured today at 44.97. Heart rate 97. PHYSICAL EXAMINATION HEENT EXAM: Unremarkable. HEART: With a regular rate and rhythm. LUNGS: Clear. ABDOMEN: Flat, soft. There is about a 2 cm umbilical hernia. It is reducible in a recumbent position. GENITOURINARY: I checked the inguinal region. He does not have any inguinal hernias. His genitalia are normal. BACK: Without CVA tenderness. EXTREMITIES: Without cyanosis or edema. CURATOR OF COLLECTIONS: Intact. IMPRESSION/REPORT/PLAN An enlarging umbilical hernia. Because of the patient's work, is probably well advised to get this enlarging hernia repaired. We would need to use mesh with this in order to prevent recurrence because of his weight. He should also consider some dietary changes to for his weight. I discussed that a little bit with him. He says that is something he plans to do. We discussed a hernia repair procedure, small risk of infection, and recurrence should be less than 1%. Plan to do this as an outpatient. He would like to do it in early March. I spent about 30 minutes with this patient today in clinic. Dar Dao M.D./pos Electronically Signed By: DAR DAO MD On: 03/20/2016 06:22 PM Source: [facility] MHSDOLBEYNONRADSYS Document Id: [id number] EXAMINER documented in this encounter Miscellaneous Notes Miscellaneous - Dar Dao M.D. - 03/05/2016 8:47 AM CST Ambulatory Patient Summary [facility] [address] [id number] Visit Information Name: SAAD MURRAY [facility] Number: [id number] Current Date: 03/05/2016 08:47:28 Physicians Attending Provider: DAR DAO MD Primary Care Provider: DANYEL SOLIS CNP SAAD [...] Tablet(s), Oral, once a day (at bedtime) lisinopril-hydrochlorothiazide (lisinopril-hydrochlorothiazide 20 mg-25 mg oral tablet) 1 Tablet(s),Oral, once a day (Zestoretic) *metoprolol (metoprolol succinate 25 mg oral tablet, extended release) 1 Tablet(s), Oral, once a dayTake as needed for palpitations or if BP is higher than 140/90 *pantoprazole (Protonix 40 mg oral delayed release tablet) 1 Tablet(s), Oral, once a day traMADol (traMADol 50 mg oral tablet) 1-2 tab(s), Oral, two times a day as needed for Pain * You have let us know that you are not taking this medication as listed. Please talk with your primary care provider or the health care provider who prescribed the medication as soon as possible. Stop Taking the Following Medications: Medication list as of 03-05-16 08:47 Attention: If you have any medications at home that are not on this list, DO NOT take them until youcontact your provider for clarification. Give a copy of your medication list to your primary care provider. Update your medication list any time medications or doses are changed and carry your medication list at all times in case of emergency. Electronically Signed By: DAR DAO MD Signed On:05-MAR-2016 08:46:24 Your Allergies & Intolerances Substance Reaction Symptoms Category Comments No Known Allergies Drug Your Problem List Problem Status Onset Comments HTN [Hypertension] Active GERD [Gastroesophageal reflux disease] Active Hyperlipidemia NOS Active Hyperglycemia Active Your Upcoming Appointments Date Time Location Provider No Appointments found Attention: Contact your local Clinic if further appointment detail needed. Hernia [Adult] A hernia is a bulge of the intestines or surrounding tissues through a tear in the muscle of the abdomen or groin. This may occur as a result of excessive coughing, heavy lifting or being overweight. It can also occur at the site of prior surgery. When a hernia first appears it may be painful due to stretching and tearing of the muscle fibers. When you lie down, the bulge should reduce in size or disappear completely. If it does not, and you are unable to flatten it with your hand, medical attentionis needed at once. Home Care: Avoid heavy lifting and straining or any activities that cause pain in the hernia. Follow Up with your physician as directed by our staff. Get Prompt Medical Attention if any of the following occur: ?? Increasing size of the hernia ?? Increasing pain in the hernia ?? A hernia that does not get smaller when you lie down ?? Hardening of the hernia ?? Abdominal swelling, fever or repeated vomiting ?? Pain moves to the lower right abdomen (just below the waistline) or spreads to the back ?? [id number] Jeffy Yin, [address] [place] [address]. All rights reserved. This information is not [...] if you dont have one. Go to [email or web address] and click on Create Your Account. Then, follow the directions to complete the online form. Youll be asked for your [facility] number which you can find at the top of this document. Your Goals/Additional instructions: This document has images extracted. Please consider using [employer] for all your patient education needs. Source: [facility] POWERCHART Document Id: [id number] EXAMINER Miscellaneous - Dar Dao M.D. - 03/05/2016 8:47 AM CST Ambulatory Discharge Medication List [facility] [address] [id number] Visit Information Name: SAAD MURRAY [facility] Number: [id number] Current Date: 03/05/2016 08:47:27 Attending Provider: DAR DAO MD Primary Care Provider: DANYEL SOLIS CNP SAAD [...] Tablet(s), Oral, once a day (at bedtime) lisinopril-hydrochlorothiazide (lisinopril-hydrochlorothiazide 20 mg-25 mg oral tablet) 1 Tablet(s),Oral, once a day (Zestoretic) *metoprolol (metoprolol succinate 25 mg oral tablet, extended release) 1 Tablet(s), Oral, once a dayTake as needed for palpitations or if BP is higher than 140/90 *pantoprazole (Protonix 40 mg oral delayed release tablet) 1 Tablet(s), Oral, once a day traMADol (traMADol 50 mg oral tablet) 1-2 tab(s), Oral, two times a day as needed for Pain * You have let us know that you are not taking this medication as listed. Please talk with your primary care provider or the health care provider who prescribed the medication as soon as possible. Stop Taking the Following Medications: Medication list as of 03-05-16 08:47 Attention: If you have any medications at home that are not on this list, DO NOT take them until youcontact your provider for clarification. Give a copy of your medication list to your primary care provider. Update your medication list any time medications or doses are changed and carry your medication list at all times in case of emergency. Electronically Signed By: DAR DAO MD Signed On:05-MAR-2016 08:46:24 Additional Information: Source: [facility] POWERCHART Document Id: [id number] EXAMINER Miscellaneous - Bernice Whalen RNikhilN. - 03/05/2016 8:10 AM CST Adult Resort Desk Clerk Intake/History Adult Resort Desk Clerk Intake/History Entered On: 03/05/2016 8:11 RE EXAMINER Performed On: 03/05/2016 8:10 RE EXAMINER by BERNICE WHALEN extractor filler Chief Complaint : new pt consult- umbilical hernia Temperature Core : 36.5 DegC(Converted to: 97.7 DegF) Peripheral Pulse Rate : 97 /min Respiratory Rate : 16 /min Systolic Blood Pressure : 151 mmHg (HI) Diastolic Blood Pressure : 86 mmHg NIBP Mean : 108 mmHg SpO2 : 95 % Oxygen Therapy : Room air Height : 185 cm(Converted to: 6 ft 1 inch(es), 73 inch(es)) Actual Weight : 153.9 kg(Converted to: 339 lb 5 oz) Weight Source : Standing scale Dosing Weight Clinic : 153.9 kg Clinic BSA : 2.81 Body Mass Index : 44.97 kg/m2 BERNICE WHALEN RN - 03/05/2016 8:10 RE EXAMINER General Info Information Given By : Patient Preferred Communication Mode : Verbal Languages : Khmer Is Patient Female and 13-50 no hysterectomy : No BERNICE WHALEN RN - 03/05/2016 8:10 RE EXAMINER Subjective Pain Symptoms : BERNICE Valente RN - 03/05/2016 8:10 RE EXAMINER Dependent Habits Exposure to Tobacco Smoke : Other: former smoker Smoking Status : Former smoker Tobacco 2A : Yes Tobacco Use/Currently Using : No Tobacco Use/Last 30 Days : No Tobacco Use/Last 12 months : No BERNICE WHALEN RN - 03/05/2016 8:10 RE EXAMINER Source: [facility] [employer] Document Id: [id number] RE EXAMINER!31 EXAMINER documented in this encounter Plan of Treatment Upcoming Encounters Date Type Specialty Care Team Description 02/15/2022 Office Visit Orthopedic Surgery Madyson Rosa D.O. [address] [place] [address] [phone] (Wo rk) documented as of this encounter Visit Diagnoses Not on filedocumented in this encounter
--- OUTSIDE RECORDS SUMMARY | 2022-01-25 11:42 | XMS_ITS | Encounter Summary ---
:1965 Author Organization [facility] Address [address] [place] [address] Care Team Providers Name Role Phone Unavailable Primary Care Provider Unavailable Encounter Details Date Type Department Care Team Description 04/26/2015 Hospital Encounter HX [facility] Jacob Chun, STEVEN, C.N.P. [address] [place] [phone] (Wo rk) Social History Tobacco [...] How often do you attend hinduism or advent More than 4 time s [...] at Date Recorded Male 03/25/2018 1:01 PM AUTOMOBILE APPRAISER documented as of this encounter Last Filed Vital Signs Vital Sign Reading Time Taken Comments Blood Pressure 152/76 04/26/2015 1:15 PM AUTOMOBILE APPRAISER Pulse 78 04/26/2015 1:15 PM AUTOMOBILE APPRAISER Temperature - - Respiratory Rate 16 04/26/2015 1:15 PM AUTOMOBILE APPRAISER Oxygen Saturation - - Inhaled Oxygen Concentration - - Weight - - Height 185 cm (6' 0.84) 04/26/2015 1:15 PM AUTOMOBILE APPRAISER Body Mass Index - - documented in this encounter Nursing Notes Rosamaria Cortez L.P.N. - 04/26/2015 1:17 PM CST BP Pt came in for a BP check, 152/76 was concerned this was high in comparission to his last BP taken in Jan. which is the distolic was lower, race and sports book writer showed pt the previous results. Pt was also inquiringabout a medication he was given for 10 days for sore muscles and he muscles hurt again. The medication was Flexril and pt was advised to make an appointment to see Mrs. Farr RACE ENGINE BUILDER to discuss this further. Pt was also wanting to know if his BP medications would change due to the systolic number being higher, race and sports book writer informed pt that if RACE ENGINE BUILDER decieds to increase the medication without the need to see him,he would recieve a phone call, pt agreed to this understanding and did say I would still like to speak with Norma race and sports book writer told pt that I would relay the message. Electronically Signed By: ROSAMARIA CORTEZ LPN On: 04/26/2015 01:24 PM Source: [employer] POWERCHART Document Id: [id number] MOBILE APPRAISER documented in this encounter Miscellaneous Notes Miscellaneous - Rosamaria Cortez L.P.N. - 04/26/2015 1:15 PM CST Ambulatory Vitals Height Weight Ambulatory Vitals Height Weight Entered On: 04/26/2015 13:15 AUTOMOBILE APPRAISER Performed On: 04/26/2015 13:15 AUTOMOBILE APPRAISER by ROSAMARIA CORTEZ LPN Vitals/Ht/Wt Peripheral Pulse Rate : 78 /min Respiratory Rate : 16 /min Systolic Blood Pressure : 152 mmHg (HI) Diastolic Blood Pressure : 76 mmHg NIBP Mean : 101 mmHg BP Location : Right upper extremity Blood Pressure Cuff Size : Large SpO2 : 96 % Oxygen Therapy : Room air Height : 185 cm(Converted to: 6 ft 1 inch(es), 73 inch(es)) ROSAMARIA CORTEZ LPN - 04/26/2015 13:15 AUTOMOBILE APPRAISER Source: [facility] POWERCHART Document Id: [id number] AUTOMOBILE APPRAISER!12 MOBILE APPRAISER documented in this encounter Plan of Treatment Upcoming Encounters Date Type Specialty Care Team Description 02/15/2022 Office Visit Orthopedic Surgery Madyson Rosa, D.ONikhil [address] [place] [address] [phone] (Wo rk) documented as of this encounter Visit Diagnoses Not on filedocumented in this encounter
--- OUTSIDE RECORDS SUMMARY | 2022-01-25 11:42 | XMS_ITS | Encounter Summary ---
:1965 Author Organization [facility] Address [address] [place] [address] Care Team Providers Name Role Phone Unavailable Primary Care Provider Unavailable Encounter Details Date Type Department Care Team Description 04/23/[address] [facility] Jaziel Dao M.D. Social History [...] How often do you attend mormon or cheondoism More than 4 time s [...] at Date Recorded Male 03/25/2018 1:01 PM DRYER FEEDER documented as of this encounter Last Filed Vital Signs Vital Sign Reading Time Taken Comments Blood Pressure 145/86 04/23/2016 8:25 AM DRYER FEEDER Pulse 84 04/23/2016 8:25 AM DRYER FEEDER Temperature - - Respiratory Rate 18 04/23/2016 8:25 AM DRYER FEEDER Oxygen Saturation - - Inhaled Oxygen Concentration - - Weight - - Height 185 cm (6' 0.84) 04/23/2016 8:25 AM DRYER FEEDER Body Mass Index - - documented in this encounter Medications at Time of Discharge Medication Sig Dispensed Refills Start Date End Date atorvastatin (for_LIPITOR) Take 1 tablet by 0 03/06/2017 20 mg tablet mouth at bedtime. metoprolol succinate Take 1 tablet by 0 6 05/12/2017 (for_TOPROL-XL) 25 mg 24 mouth daily. hr tablet documented as of this encounter Progress Notes Lakeisha Dao M.D. - 04/23/2016 8:21 AM CST [id number] He is a 50-year-old male who we underwent umbilical hernia repair about a week ago. His incision is looking good today. He did have quite a bit of pain over the weekend, ran out of pain pills because he had a bad cough that he developed. Now he is doing better. He has no bruising. He has a healing ridge there in the wound which is normal. We discussed him going back to work. I wanted him to stay awayfrom heavy lifting for at least a 4 to 6 weeks. We will see him back as needed if any problems develop. Lakeisha Dao M.D./pos Electronically Signed By: LAKEISHA DAO MD On: 04/25/2016 06:02 PM Source: [facility] MHSDOLBEYNONRADSYS Document Id: [id number] R FEEDER documented in this encounter Miscellaneous Notes Miscellaneous - Jeannette Gleason, SvetaP.N. - 04/25/2016 2:11 PM CST Health Maintenance Reminder April 25, [address] [facility] [id number] Dear SAAD MURRAY, At your last visit on for a follow up of your Hernia surgery your blood pressure was elevated to 145/86. A high normal bp would be less than 140/90. It is our policy to follow up on this elevated blood pressure to ensure your blood presssure returnsto a normal and safe level. Please contact our clinic to schedule a Nurse only visit at no charge to you to recheck your blood pressure. You may contact our clinic at [phone] and request a nurse only appointment to recheck your blood pressure. If it is more convenient for your to do this at one of our other clinics please do so by requesting the clinic of your choice at the time of scheduling your appointment. Sincerely, JEANNETTE GLEASON Electronic Signature Electronically Signed By: JEANNETTE GLEASON LPN On: April 25, 2016 This document has images extracted. Source: [facility] POWERCHART Document Id: [id number] Electronically signed by Conversion, [facility] Customer Service Cashier [id number] at 09/10/2016 3:21 AM CDT Miscellaneous - Lakeisha Dao M.D. - 04/23/2016 8:57 AM CST Ambulatory Patient Summary [place] [facility] [address] [id number] Visit Information Name: SAAD MURRAY [facility] Number: [id number] Current Date: 04/23/2016 08:57:00 Physicians Attending Provider: LAKEISHA DAO MD Primary Care Provider: DANYEL SOLIS [...] times a day as needed for Pain Stop Taking the Following Medications: Medication list as of 04-23-16 08:57 Attention: If you have any medications at home that are not on this list, DO NOT take them until youcontact your provider for clarification. Give a copy of your medication list to your primary care provider. Update your medication list any time medications or doses are changed and carry your medication list at all times in case of emergency. Electronically Signed By: LAKEISHA DAO MD Signed On:23-APR-2016 08:56:14 Your Allergies & Intolerances Substance Reaction Symptoms Category Comments No Known Allergies Drug Your Problem List Problem Status Onset Comments HTN [Hypertension] Active GERD [Gastroesophageal reflux disease] Active Hyperlipidemia NOS Active Hyperglycemia Active Body mass index (BMI) 45.0-49.9, adult Active 03/15/16 Rule activated problem due to BMI 45-49 posted on 03/15 at 12:50 DRYER FEEDER. Your Upcoming Appointments Date Time Location Provider [...] if you dont have one. Go to [email or web address] and click on Create Your Account. Then, follow the directions to complete the online form. Youll be asked for your [facility] number which you can find at the top of this document. Your Goals/Additional instructions: Source: [facility] POWERCHART Document Id: [id number] R FEEDER Miscellaneous - Lakeisha Dao M.D. - 04/23/2016 8:57 AM CST Ambulatory Discharge Medication List [place] [facility] [address] [place], [place] [id number] Visit Information Name: SAAD MURRAY [facility] Number: [id number] Current Date: 04/23/2016 08:57:00 Attending Provider: LAKEISHA DAO MD Primary Care Provider: DANYEL SOLIS [...] times a day as needed for Pain Stop Taking the Following Medications: Medication list as of 04-23-16 08:56 Attention: If you have any medications at home that are not on this list, DO NOT take them until youcontact your provider for clarification. Give a copy of your medication list to your primary care provider. Update your medication list any time medications or doses are changed and carry your medication list at all times in case of emergency. Electronically Signed By: LAKEISHA DAO MD Signed On:23-APR-2016 08:56:14 Additional Information: Source: [facility] POWERCHART Document Id: [id number] R FEEDER Miscellaneous - Cyn Scott RNikhilNNikhil - 04/23/2016 8:25 AM CST Adult Professional Poker Player Intake/History Adult Professional Poker Player Intake/History Entered On: 04/23/2016 8:26 DRYER FEEDER Performed On: 04/23/2016 8:25 DRYER FEEDER by CYN SCOTT impact retail service merchandiser Chief Complaint : umb hernia repair Peripheral Pulse Rate : 84 /min Respiratory Rate : 18 /min Systolic Blood Pressure : 145 mmHg (HI) Diastolic Blood Pressure : 86 mmHg NIBP Mean : 106 mmHg Height : 185 cm(Converted to: 6 ft 1 inch(es), 73 inch(es)) CYN SCOTT RN - 04/23/2016 8:25 DRYER FEEDER General Info Information Given By : Patient Languages : Polish Is Patient Female and 13-50 no hysterectomy : No CYN SCOTT RN - 04/23/2016 8:25 DRYER FEEDER Subjective Pain Symptoms : Yes CYN SCOTT RN - 04/23/2016 8:25 DRYER FEEDER Pain Scale Pain Scale Verbal 0-10 : Open CYN SCOTT RN - 04/23/2016 8:25 DRYER FEEDER Pain Pain Assessment Grid Pain 1 Location : Abdomen Laterality : Right Intensity : 3 CYN SCOTT RN - 04/23/2016 8:25 DRYER FEEDER Dependent Habits Exposure to Tobacco Smoke : Other: former smoker Smoking Status : Former smoker Tobacco 2A : Yes Tobacco Use/Currently Using : No Tobacco Use/Last 30 Days : No Tobacco Use/Last 12 months : No CYN SCOTT RN - 04/23/2016 8:25 DRYER FEEDER Source: [facility] POWERCHART Document Id: [id number] DRYER FEEDER!30 R FEEDER documented in this encounter Plan of Treatment Upcoming Encounters Date Type Specialty Care Team Description 02/15/2022 Office Visit Orthopedic Surgery Madyson Rosa, DaydayONikhil [address] [place], [place] [phone] (Wo rk) documented as of this encounter Visit Diagnoses Not on filedocumented in this encounter
--- OUTSIDE RECORDS SUMMARY | 2022-01-25 11:42 | XMS_ITS | Encounter Summary ---
:1965 Author Organization [facility] Address [address] [place] [address] Care Team Providers Name Role Phone Unavailable Primary Care Provider Unavailable Encounter Details Date Type Department Care Team Description 11/18/2013 Hospital Encounter HX [facility] Jaimie Ho M.D. [address] [place], [place] [address] (Wo rk) Social History Tobacco Use Types [...] or relatives? How often do you attend sikh or mandaeism More than 4 time s per year 09/17/2018 services? Do you belong to any clubs or organizations No 09/17/2018 such as sikh groups, unions, fraternal or athletic groups, or [...] at Date Recorded Male 03/25/2018 1:01 PM [employer] documented as of this encounter Last Filed Vital Signs Vital Sign Reading Time Taken Comments Blood Pressure 144/88 11/18/2013 2:54 PM CDT Pulse 111 11/18/2013 2:54 PM CDT Temperature - - Respiratory Rate 12 11/18/2013 2:54 PM CDT Oxygen Saturation - - Inhaled Oxygen Concentration - - Weight 150 kg (331 lb 5.6 oz) 11/18/2013 2:54 PM CDT Height 186 cm (6' 1.23) 11/18/2013 2:54 PM CDT Body Mass Index 43.44 11/18/2013 2:54 PM CDT documented in this encounter H&P Notes Russ Benson M.D. - 11/18/2013 2:49 PM CDT [id number] CHIEF COMPLAINT/REASON FOR VISIT This 47-year-old male is here with a chief complaint of migratory joint pain, but also tingling in his hands and feet. HISTORY OF PRESENT ILLNESS He had similar symptoms last year and was prescribed metoprolol succinate, however from what we can tell this prescription was never filled. The opinion last year was that he was hyperventilating and that would explain some associated symptoms of heart palpitations. Labs last year to screen for a muscle disorder showed a normal sed rate, and in addition the other labs showed normal complete blood count, normal thyroid status, normal basic metabolic profile, but elevated cholesterol. The opinion was that this was something stress-related and indeed he feels stressthat has a lot to do with his complaints of tingling in his hands and feet, as well as the palpitations of his heart. 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 His smokes, however she never smokes in the house so he is not getting exposed to smoke. He does not have any other symptoms such as chest pain, and he states when he gets cardiac palpitations it is only at rest, not when he is up standing or up and about, just when sitting or trying to sleep. The palpitations cause him to get anxious. His GERD symptoms are under very good control. MEDICATIONS Meds are reviewed and currently he takes: Hydrochlorothiazide 50 mg every morning. Protonix 40 mg on an as needed basis to control GERD. ALLERGIES No known allergies. PAST MEDICAL/SURGICAL HISTORY MEDICAL: Esophageal reflux. Hypertension. Hyperlipidemia, diet treatment only. Hyperglycemia, but never clinical diabetes. OTHER TESTS: Echocardiogram 01/27/2007 within normal limits. SURGICAL: Vasectomy in 2004. INACTIVE ILLNESSES: Irritable bowel syndrome. Diverticulosis. Pneumonia. HABITS: No smoking, alcohol intake varies. SOCIAL HISTORY , lives in own home. 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 FAMILY HISTORY Father has hypertension and Parkinson disease. Mother has hypertension and possibly rheumatoid arthritis. Siblings, 1 has high blood pressure. VITAL SIGNS Temperature 36.9 centigrade, pulse 111, blood pressure 144/88, O2 sat 98% in room air. Weight 150 kg(up 3 kg versus 18 months ago.) PHYSICAL EXAMINATION GENERAL: Alert, oriented, no distress. HEAD/NECK EXAM: No goiter. LUNGS: Clear to auscultation. No wheezing. Full expansion. CARDIAC: Heart tones regular rhythm, 102 beats per minute. No murmurs. LOWER EXTREMITIES: Trace to 1+ pitting edema pretibial. Recheck of blood pressure at left wrist 142/96, pulse 101; 135/96, pulse 100. Recheck of blood pressure right upper arm 142/95. IMPRESSION/REPORT/PLAN 1. Hypertension, marginally controlled at age 47. 2. Tachycardia, probably contributing to hypertension, probably stress related. 3. Tingling in hands and feet, probably secondary to anxiety and hyperventilation. 4. Episodic wheezing, probably date due to dust exposure, not serious enough for treatment. 5. Hyperlipidemia history, uncertain status with diet treatment. 6. Gastroesophageal reflux disease, controlled with proton pump inhibitor at a relatively low dose as needed only. PLAN: 1. Continue hydrochlorothiazide 50 mg 1 daily. 2. Add metoprolol succinate 50 mg 1 daily. This should reduce tachycardia and stress-related palpitations and associated tingling. 3. Continue Protonix. 4. Labs today to include basic metabolic profile, magnesium and lipids. 5. Patient given a low-cholesterol diet to follow. 6. Patient advised to return to clinic in 1 or 2 months to review all of these symptoms and status on metoprolol addition to his treatment and the new low cholesterol diet dispensed today. Patient may need to go on a statin someday. ADMINISTRATIVE BILLING This is a 40 minute duration visit, 25 minutes consultation. Basically this was all problem related evaluation and treatment. The blood pressure is unstable, the palpitations are unstable and the tingling in hands and feet is unstable. Russ Benson M.D./pos Electronically Signed By: RUSS BENSON MD On: 11/22/2013 09:16 AM Source: [facility] MHSDOLBEYNONRADSYS Document Id: [id number] documented in this encounter Nursing Notes Russ Benson M.D. - 11/18/2013 3:48 PM CDT Ambulatory Patient Education The following Patient Education Materials have been given to the patient: Patient Education Materials: Ambulatory DIET, Low Cholesterol Ambulatory Diet: Low Cholesterol Cholesterol is needed by the body to build new cells and create certain hormones. There are two kinds of cholesterol in the blood: ?? Good cholesterol prevents fat deposits (plaque) from building up in the arteries. In this way it protects against heart disease and stroke. ?? Bad cholesterol stays in the body and sticks to artery lim. It may eventually block blood flow to the heart and brain causing heart attack or stroke. 75% of the bodys cholesterol is made in the liver. Only 25% of the bodys cholesterol comes from the food you eat. While the amount of cholesterol in your diet should be limited, it is the cholesterol that your body makes that creates the greatest disease risk. The biggest influence on cholesterol madeby your body is the mixture of fat types in your diet. There are two kinds of fats you can eat: ?? Good Fats are the unsaturated fats (mono-saturated and poly-unsaturated). They raise the level ofgood cholesterol and lower the level of bad cholesterol. Good fats are found in vegetable oils such as olive, sunflower, corn and soybean oils, and in nuts and seeds. ?? Bad Fats are the saturated fats (including foods high in cholesterol) and trans fats. These increase the risk of disease. They lower the good cholesterol and raise the level of bad cholesterol. Bad fats are found in meat and whole- milk dairy products. Some plants are also high in bad fats (coconut and palm plants). Trans fats are found in hard (stick) margarines and many fast foods and commercially baked goods. Soft margarine sold in tubs has less trans fats and are safer to use. High blood cholesterol usually is a result of a diet high in saturated fat combined with an inactivelifestyle. In some cases, genetics plays a role in causing high cholesterol. The following tips willhelp you create healthy eating habits that will help lower your blood cholesterol level. Steps To Creating A Diet High In Good Fat, Low In Bad Fats (And Low In Cholesterol) Consult with your doctor before starting a low cholesterol diet or weight loss program. Learn to read nutrition labels and select appropriate portion sizes. When cooking, use plant-based unsaturated vegetable oils (sunflower, corn, soybean, canola, peanut, and olive oils). Avoid saturated oils found in animal products such as meat, dairy (whole-milk, cheese and ice cream), poultry skin, and egg yolks. Plants high in saturated oils include coconut and coconut oil, palm oil and palm kernel oil. If you eat meat, choose smaller portions and lean cuts. Replace meat with fish at least two times a week. Fish is an important source of the unsaturated fatcalled omega-3 fatty acids. This fat has potential to lower the risk of heart disease. Replace whole-milk dairy products with low-fat or nonfat products. Try soy products. Soy helps to reduce total cholesterol. Supplement your diet with protective fibers. Eat nuts, seeds, and whole grains rather than white rice and bread. These foods lower both cholesterol and triglyceride levels. (Triglycerides are another fat found in the blood.) Walnuts are one of the best sources of an omega-3 fatty acid. Eat plenty of fresh fruits and vegetables daily. Avoid fast foods and commercial baked goods. Assume they contain saturated fat unless labeled otherwise. ?? [address] [place] [address]. All rights reserved. This information is not intended as a substitute for professional medical care. Always follow your healthcare professional's instructions. This document has images extracted. Please consider using [employer] for all your patient education needs. Source: [facility] POWERCHART Document Id: [id number] documented in this encounter Miscellaneous Notes Miscellaneous - Russ Benson M.D. - 11/18/2013 3:48 PM CDT Ambulatory Patient Summary [address] [id number] Visit Information Name: SAAD MURRAY [facility] Number: [id number] Current Date: 11/18/2013 15:48:48 Physicians Attending Provider: RUSS BENSON MD Primary Care Provider: RUSS BENSON MD SAAD MURRAY has been given the following [...] Take Indications/Special Instructions/Comments/Notes for Patient Medication Changes/Routing hydrochlorothiazide (hydrochlorothiazide 50 mg oral tablet) 1 Tablet(s), Oral, once a day for blood pressure and fluid in ankles. This is a CHANGE Routed to [address] [address] metoprolol (metoprolol succinate 50 mg oral tablet, extended release) 1 Tablet(s), Oral, once a day for blood pressure and heart palpitations, tingling. Routed to [address] [address] pantoprazole (Protonix 40 mg oral delayed release tablet) 1 Tablet(s), Oral, once a day NO FURTHER REFILLS WITHOUT APPOINTMENT. Stop Taking the Following Medications: Medication list as of 11-18-13 15:48 Attention: If you have any medications at home that are not on this list, DO NOT take them until youcontact your provider for clarification. Give a copy of your medication list to your primary care provider. Update your medication list any time medications or doses are changed and carry your medication list at all times in case of emergency. Electronically Signed By: RUSS BENSON MD Signed On:18-NOV-2013 15:48:04 Your Allergies & Intolerances Substance Reaction Symptoms Category Comments No Known Allergies Drug Your Problem List Problem Status Onset Comments HTN [Hypertension] Active GERD [Gastroesophageal reflux disease] Active Hyperlipidemia NOS Active Hyperglycemia Active Your Upcoming Appointments Date Time Location Reason Provider No Appointments found Attention: Contact your local Clinic if further appointment detail needed. Diet: Low Cholesterol Cholesterol is needed by the body to build new cells and create certain hormones. There are two kinds of cholesterol in the blood: ?? Good cholesterol prevents fat deposits (plaque) from building up in the arteries. In this way it protects against heart disease and stroke. ?? Bad cholesterol stays in the body and sticks to artery lim. It may eventually block blood flow to the heart and brain causing heart attack or stroke. 75% of the bodys cholesterol is made in the liver. Only 25% of the bodys cholesterol comes from the food you eat. While the amount of cholesterol in your diet should be limited, it is the cholesterol that your body makes that creates the greatest disease risk. The biggest influence on cholesterol madeby your body is the mixture of fat types in your diet. There are two kinds of fats you can eat: ?? Good Fats are the unsaturated fats (mono-saturated and poly-unsaturated). They raise the level ofgood cholesterol and lower the level of bad cholesterol. Good fats are found in vegetable oils such as olive, sunflower, corn and soybean oils, and in nuts and seeds. ?? Bad Fats are the saturated fats (including foods high in cholesterol) and trans fats. These increase the risk of disease. They lower the good cholesterol and raise the level of bad cholesterol. Bad fats are found in meat and whole- milk dairy products. Some plants are also high in bad fats (coconut and palm plants). Trans fats are found in hard (stick) margarines and many fast foods and commercially baked goods. Soft margarine sold in tubs has less trans fats and are safer to use. High blood cholesterol usually is a result of a diet high in saturated fat combined with an inactivelifestyle. In some cases, genetics plays a role in causing high cholesterol. The following tips willhelp you create healthy eating habits that will help lower your blood cholesterol level. Steps To Creating A Diet High In Good Fat, Low In Bad Fats (And Low In Cholesterol) Consult with your doctor before starting a low cholesterol diet or weight loss program. Learn to read nutrition labels and select appropriate portion sizes. When cooking, use plant-based unsaturated vegetable oils (sunflower, corn, soybean, canola, peanut, and olive oils). Avoid saturated oils found in animal products such as meat, dairy (whole-milk, cheese and ice cream), poultry skin, and egg yolks. Plants high in saturated oils include coconut and coconut oil, palm oil and palm kernel oil. If you eat meat, choose smaller portions and lean cuts. Replace meat with fish at least two times a week. Fish is an important source of the unsaturated fatcalled omega-3 fatty acids. This fat has potential to lower the risk of heart disease. Replace whole-milk dairy products with low-fat or nonfat products. Try soy products. Soy helps to reduce total cholesterol. Supplement your diet with protective fibers. Eat nuts, seeds, and whole grains rather than white rice and bread. These foods lower both cholesterol and triglyceride levels. (Triglycerides are another fat found in the blood.) Walnuts are one of the best sources of an omega-3 fatty acid. Eat plenty of fresh fruits and vegetables daily. Avoid fast foods and commercial baked goods. Assume they contain saturated fat unless labeled otherwise. ?? [address]365[address] [place] [address]. All rights reserved. This information is not intended as a substitute for professional medical care. Always follow your healthcare professional's instructions. Your Goals/Additional instructions: This document has images extracted. Please consider using [employer] for all your patient education needs. Source: [facility] POWERCHART Document Id: [id number] Miscellaneous - Russ Benson M.D. - 11/18/2013 3:48 PM CDT Ambulatory Discharge Medication List [address] [id number] Visit Information Name: SAAD MURRAY [facility] Number: [id number] Visit Date: 11/18/2013 15:48:47 Attending Provider: RUSS BENSON MD Primary Care Provider: RUSS BENSON MD SAAD MURRAY has been given the following list of medications: Your Medications It is important to take your medications as directed. Use a pill box or chart to help remind you to take your medications. Please let your doctor or nurse know if you have problems taking your medications. Medication/Strength How to Take Indications/Special Instructions/Comments/Notes for Patient Medication Changes/Routing hydrochlorothiazide (hydrochlorothiazide 50 mg oral tablet) 1 Tablet(s), Oral, once a day for blood pressure and fluid in ankles. This is a CHANGE Routed to [address] [address] metoprolol (metoprolol succinate 50 mg oral tablet, extended release) 1 Tablet(s), Oral, once a day for blood pressure and heart palpitations, tingling. Routed to [address] [address] pantoprazole (Protonix 40 mg oral delayed release tablet) 1 Tablet(s), Oral, once a day NO FURTHER REFILLS WITHOUT APPOINTMENT. Stop Taking the Following Medications: Medication list as of 11-18-13 15:48 Attention: If you have any medications at home that are not on this list, DO NOT take them until youcontact your provider for clarification. Give a copy of your medication list to your primary care provider. Update your medication list any time medications or doses are changed and carry your medication list at all times in case of emergency. Electronically Signed By: RUSS BENSON MD Signed On:18-NOV-2013 15:48:04 Additional Information: Source: [facility] POWERCHART Document Id: [id number] Miscellaneous - Conversion, Historical Provider Ser - 11/18/2013 2:54 PM CDT Adult Pattern Hand Intake/History Adult Pattern Hand Intake/History Entered On: 11/18/2013 15:00 CDT Performed On: 11/18/2013 14:54 CDT by DELFIN PAREDES LPN Intake Chief Complaint : Med renewal, joint pain different locations. Temperature Core : 36.9 DegC(Converted to: 98.4 DegF) Peripheral Pulse Rate : 111 /min (HI) Respiratory Rate : 12 /min (LOW) Heart Rhythm : Regular Systolic Blood Pressure : 144 mmHg (HI) Diastolic Blood Pressure : 88 mmHg NIBP Mean : 107 mmHg BP Location : Right upper extremity Blood Pressure Cuff Size : Large SpO2 : 98 % Height : 186 cm(Converted to: 6 ft 1 inch(es), 73 inch(es)) Actual Weight : 150.3 kg(Converted to: 331 lb 6 oz) Weight Source : Standing scale Dosing Weight Clinic : 150.3 kg Clinic BSA : 2.79 Body Mass Index : 43.44 kg/m2 DANYAIDADELFIN Josue PATRICIA - 11/18/2013 14:54 CDT General Info Information Given By : Patient Languages : Romansh Is Patient Female and 13-50 no hysterectomy : No DELFIN PAREDES LPN 11/18/2013 14:54 CDT Subjective Pain Symptoms : Yes DELFIN PAREDES LPN 11/18/2013 14:54 CDT Pain Pain Assessment Grid Pain 1 Intensity : 4 DELFIN PAREDES LPN 11/18/2013 14:54 CDT Effects of Pain Grid Daily Life : Moderate (Comment: Stiff in the mornings [DELFIN PAREDES LPN 11/18/2013 14:54 CDT] ) DELFIN PAREDES LPN - 11/18/2013 14:54 CDT Dependent Habits Tobacco Use/Currently Using : No Smoking Status : Former smoker LENADELFIN Josue PATRICIA 11/18/2013 14:54 CDT Tobacco Use Grid Last Use : > 20 years DELFIN PAREDES LPN 11/18/2013 14:54 CDT Alcohol Use : Yes DELFIN PAREDES LPN 11/18/2013 14:54 CDT Source: [facility] POWERCHART Document Id: [id number] documented in this encounter Plan of Treatment Upcoming Encounters Date Type Specialty Care Team Description 02/15/2022 Office Visit Orthopedic Surgery Madyson Rosa D.ONikhil [address] [place], [place] [phone] (Wo rk) documented as of this encounter Visit Diagnoses Not on filedocumented in this encounter
--- OUTSIDE RECORDS SUMMARY | 2022-01-25 11:42 | XMS_ITS | Encounter Summary ---
:1965 Author Organization [facility] Address [address] [place] [address] Care Team Providers Name Role Phone Unavailable Primary Care Provider Unavailable Encounter Details Date Type Department Care Team Description 08/08/2015 Hospital Encounter HX [facility] Jacob Chun, STEVEN, C.N.P. 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 documented as of this encounter Last Filed Vital Signs Vital Sign Reading Time Taken Comments Blood Pressure 157/92 08/08/2015 3:30 PM CDT Pulse 83 08/08/2015 2:57 PM CDT Temperature - - Respiratory Rate 20 08/08/2015 2:57 PM CDT Oxygen Saturation - - Inhaled Oxygen Concentration - - Weight 162 kg (357 lb 12.9 oz) 08/08/2015 2:57 PM CDT Height 185 cm (6' 0.84) 08/08/2015 3:30 PM CDT Body Mass Index 47.42 08/08/2015 2:57 PM CDT documented in this encounter Medications at Time of Discharge Medication Sig Dispensed Refills Start Date End Date metoprolol succinate Take 1 tablet by 0 6 05/12/2017 (for_TOPROL-XL) 25 mg 24 mouth daily. hr tablet documented as of this encounter Progress Notes Norma Soils APRN, C.N.P. - 08/08/2015 2:44 PM CDT [id number] CHIEF COMPLAINT/REASON FOR VISIT Headache. HISTORY OF PRESENT ILLNESS Saad presents to clinic today, here with concerns of headache that has been occurring for the past 5 days. He states that it is somewhat intermittent, but has become more noticeable over the past couple days. He noticed it somewhat when he was going from sitting to standing position or with movement. He has been taking ibuprofen once or twice per day. He describes it as a shooting or piercing painabove and behind his left ear. He does have a little bit of tooth and jaw pain when he rubs on that area, but otherwise no tooth pain, no ear pain. No vision problems. No numbness or tingling. He does feel again that it is worsening. It never wakes him up at night. It comes on more so after starting , and again more so with movement. He had otherwise been feeling well before, up until this time. He denies any blurred vision. No other neurologic symptoms. No dizziness. No chest pain or shortness of breath. No speech problems. No paralysis. SYSTEMS REVIEW Rest of systems review is negative. MEDICATIONS CURRENT: Lisinopril/hydrochlorothiazide 20/25 one tab daily. Protonix 40 mg daily. ALLERGIES No known allergies. PAST MEDICAL/SURGICAL HISTORY 1. Hypertension. 2. Hyperglycemia. 3. Hyperlipidemia, not currently on any statin therapy. 4. Esophageal reflux. SOCIAL HISTORY The patient is a nonsmoker. VITAL SIGNS Temp 36.7, heart rate 83, respiratory rate 20, blood pressure 162/90, recheck is 157/92, oxygen 96% on room air. Height 185 cm, weight 162.3 kg. BMI is 47. Pain he rates as 8/10. PHYSICAL EXAMINATION GENERAL: Twin is alert and oriented. He is calm, cooperative, and pleasant throughout our exam. Appears to be in no acute distress. HEENT: Conjunctivae clear without injection or exudate. Pupils equal, round, and reactive to light. Extraocular eye movements intact. Tympanic membranes pearly bond, with regular cone of light. On attention to the left scalp, there is no rash present in the area of concern. Oropharynx pink and moist. NECK: Supple. No masses or lymphadenopathy noted. LUNGS: Clear to auscultation. CARDIAC: Regular rate and rhythm. NEUROLOGIC: Cranial nerves 2 through 12 are intact. No focal neurologic deficit noted. DIAGNOSTIC DATA: A CT of the head was performed today and was normal. IMPRESSION/REPORT/PLAN Headache. This is present around and behind his left ear. No evidence of any infection. This could certainly be muscular in nature or in regards to his elevated blood pressure. I am going to add back in metoprolol that he used to take, extended release 25 mg daily, which I would like him to take that tonight. He can also take Flexeril up to 3 times daily, as he continues to have some right shoulder pain, and can try both of these tonight. We will give him a followup phone call tomorrow. If symptoms are becoming worse or severe, then he should follow up emergently. Otherwise, I would like to see himback in 2 to 3 days to discuss his symptoms. At that time, we should also discuss rechecking cholesterol panel since he has gained some weight, starting statin therapy, and physical therapy for his shoulder. Twin understood and agreed with this plan. All questions answered. Norma Solis APRN, C.N.P./pos Electronically Signed By: NORMA SOLIS CNP On: 08/11/2015 11:55 AM Source: [facility] MHSDOLBEYNONRADSYS Document Id: [id number] documented in this encounter Miscellaneous Notes Miscellaneous - Reva Ortiz L.P.N. - 08/09/2015 9:10 AM CDT Efraín- flor Document Contains Addenda Addendum by GABRIEL YAN RN on August 09, 2015 11:57:06 CDT From: GABRIEL YAN RN ([facility] Nurse) To: NORMA SOLIS CNP; Sent: 08/09/2015 11:57:06 CDT Subject: FW: Efraín- clarification He doesn't need a refill. He is taking Lisinopril/HCTZ:20-25 combo. Addendum by NORMA SOLIS CNP on August 09, 2015 11:38:42 CDT From: NORMA SOLIS CNP To: [facility] Nurse; Sent: 08/09/2015 11:38:42 CDT Subject: RE: Efraín- clarification Gotcha. Does he need a refill of his combo BP pill you said? Can you verify dosage for me? Thanks, TK Addendum by GABRIEL YAN RN on August 09, 2015 11:21:57 CDT From: GABRIEL YAN RN ([facility] Nurse) To: NORMA SOLIS CNP; Sent: 08/09/2015 11:21:57 CDT Subject: FW: Radha ray Headache is better today. It's not the pounding headache he had yesterday. He took a flexril last night which helped with the ALLEN. He was able to sleep through the night. Headache again this morning butflexril this morning helped. He doesn't think he needs to be seen today. He will see you on Friday. He did get both of his meds last night. He will take both BP meds as recommended. The lisinopril combo was not on the discharge med list. Addendum by NORMA SOLIS CNP on August 09, 2015 10:33 CDT Also, how is his headache today? Thanks, TK Addendum by NORMA SOLIS CNP on August 09, 2015 10:01:41 CDT From: NORMA SOLIS CNP To: [facility] Medicine Nurse; Sent: 08/09/2015 10:01:41 CDT Subject: RE: Efraín- clarification I sent prescriptions yesterday to [facility] in [place] - Metoprolol and Flexeril (see in chart)to take the Metoprolol last night and continue with his current Lisinopril-HCTZ in the morning. He can take the flexeril as needed. So he did not get his meds last night? Thanks, TK Addendum by GABRIEL YAN RN on August 09, 2015 09:17:43 CDT From: GABRIEL YAN RN ([facility] Nurse) To: NORMA SOLIS CNP; Sent: 08/09/2015 09:17:43 CDT Subject: FW: Efraín- clarification From: REVA ORTIZ LPN To: [facility] Nurse; Sent: 08/09/2015 09:10:43 CDT Subject: Efraín- clarification Patient called requesting clarification of meds. Patient states that he thought he was to be taking Lisinopril-HCTZ with Metoprolol but no new rx. Patient needing direction and if he is to take both heis needing new rx for Lisinopril- HCTZ to [facility]. Please advise Nursing to call with clarification [phone] [facility] Source: [facility] POWERCHART Document Id: [id number] Miscellaneous - Norma Solis APRN, C.N.P. - 08/08/2015 4:42 PM CDT Ambulatory Patient Summary [address] [id number] Visit Information Name: SAAD MURRAY [facility] Number: [id number] Current Date: 08/08/2015 16:42:26 Physicians Attending Provider: NORMA SOLIS CNP Primary Care Provider: NORMA SOLIS CNP [...] Take Indications/Special Instructions/Comments/Notes for Patient Medication Changes/Routing cyclobenzaprine (Flexeril 5 mg oral tablet) 1 Tablet(s), Oral, three times a day as needed for Muscle spasm x 10 day(s) Routed to [address] [address] metoprolol (metoprolol succinate 25 mg oral tablet, extended release) 1 Tablet(s), Oral, once a day Routed to [address] [address] pantoprazole (Protonix 40 mg oral delayed release tablet) 1 Tablet(s), Oral, once a day Stop Taking the Following Medications: Medication list as of 08-08-15 16:42 Attention: If you have any medications at home that are not on this list, DO NOT take them until youcontact your provider for clarification. Give a copy of your medication list to your primary care provider. Update your medication list any time medications or doses are changed and carry your medication list at all times in case of emergency. Electronically Signed By: NORMA SOLIS CNP Signed On:08-AUG-2015 16:42:23 Your Allergies & Intolerances Substance Reaction Symptoms [...] if you dont have one. Go to [email or web address] and click on Create Your Account. Then, follow the directions to complete the online form. Youll be asked for your [facility] number which you can find at the top of this document. Your Goals/Additional instructions: Source: [facility] POWERCHART Document Id: [id number] Miscellaneous - Norma Solis APRN, C.N.P. - 08/08/2015 4:42 PM CDT Ambulatory Discharge Medication List [address] [id number] Visit Information Name: SAAD MURRAY [facility] Number: [id number] Visit Date: 08/08/2015 16:42:25 Attending Provider: NORMA SOLIS CNP Primary Care Provider: NORMA SOLIS CNP [...] Take Indications/Special Instructions/Comments/Notes for Patient Medication Changes/Routing cyclobenzaprine (Flexeril 5 mg oral tablet) 1 Tablet(s), Oral, three times a day as needed for Muscle spasm x 10 day(s) Routed to [address] [id number] metoprolol (metoprolol succinate 25 mg oral tablet, extended release) 1 Tablet(s), Oral, once a day Routed to [address] [address] pantoprazole (Protonix 40 mg oral delayed release tablet) 1 Tablet(s), Oral, once a day Stop Taking the Following Medications: Medication list as of 08-08-15 16:42 Attention: If you have any medications at home that are not on this list, DO NOT take them until youcontact your provider for clarification. Give a copy of your medication list to your primary care provider. Update your medication list any time medications or doses are changed and carry your medication list at all times in case of emergency. Electronically Signed By: ONRMA SOLIS CNP Signed On:08-AUG-2015 16:42:23 Additional Information: [facility] Document Id: [id number] Miscellaneous - Jeannette Gleason, L.P.N. - 08/08/2015 3:30 PM CDT Ambulatory Vitals Height Weight Ambulatory Vitals Height Weight Entered On: 08/08/2015 15:30 CDT Performed On: 08/08/2015 15:30 CDT by JEANNETTE GLEASON LPN Vitals/Ht/Wt Systolic Blood Pressure : 157 mmHg (HI) Diastolic Blood Pressure : 92 mmHg (>HHI) NIBP Mean : 114 mmHg Height : 185 cm(Converted to: 6 ft 1 inch(es), 73 inch(es)) JEANNETTE GLEASON LPN - 08/08/2015 15:30 CDT [facility] Document Id: [id number] CDT!6 Miscellaneous - Jeannette Gleason L.P.N. - 08/08/2015 2:57 PM CDT Adult Sampler And Test Preparer Intake/History Adult Sampler And Test Preparer Intake/History Entered On: 08/08/2015 15:05 CDT Performed On: 08/08/2015 14:57 CDT by JEANNETTE GLEASON LPN Intake Chief Complaint : headahce x 5 days Onset of Symptoms : started last friday. Ambulatory Intake Additional Information : intermittent, never wakes patient up. headaches come on after starting day. today it is worse. Mostly with movement. sharp behing the left ear and radiates to the from. Temperature Core : 36.7 DegC(Converted to: 98.1 DegF) Peripheral Pulse Rate : 83 /min Respiratory Rate : 20 /min Systolic Blood Pressure : 162 mmHg (>HHI) Diastolic Blood Pressure : 90 mmHg (HI) NIBP Mean : 114 mmHg BP Location : Right upper extremity Blood Pressure Cuff Size : Large SpO2 : 96 % Oxygen Therapy : Room air Height : 185 cm(Converted to: 6 ft 1 inch(es), 73 inch(es)) Actual Weight : 162.3 kg(Converted to: 357 lb 13 oz) Weight Source : Standing scale Dosing Weight Clinic : 162.3 kg Clinic BSA : 2.89 Body Mass Index : 47.42 kg/m2 JEANNETTE GLEASON LPN - 08/08/2015 14:57 CDT General Info Information Given By : Patient Preferred Communication Mode : Verbal Languages : American Is Patient Female and 13-50 no hysterectomy : No JEANNETTE GLEASON LPN - 08/08/2015 14:57 CDT Subjective Pain Symptoms : Yes JEANNETTE GLEASON LPN - 08/08/2015 14:57 CDT Pain Scale Pain Scale Verbal 0-10 : Open JEANNETTE GLEASON LPN - 08/08/2015 14:57 CDT Pain Pain Assessment Grid Pain 1 Location : Head Laterality : Left Intensity : 8 Time Pattern : Acute, Intermittent Onset : Sudden Quality : Sharp Aggravating Factors : Movement Alleviating Factors : None JEANNETTE GLEASON LPN - 08/08/2015 14:57 CDT Dependent Habits Smoking Status : Former smoker Tobacco 2A : Yes Tobacco Use/Currently Using : No Tobacco Use/Last 30 Days : No Tobacco Use/Last 12 months : No JEANNETTE GLEASON LPN - 08/08/2015 14:57 CDT Source: [facility] POWERCHART Document Id: [id number] CDT!47 documented in this encounter Plan of Treatment Upcoming Encounters Date Type Specialty Care Team Description 02/15/2022 Office Visit Orthopedic Surgery Madyson Rosa, D.ONikhil [address] [place], [place] [phone] (Wo rk) documented as of this encounter Visit Diagnoses Not on filedocumented in this encounter
--- OUTSIDE RECORDS SUMMARY | 2022-01-25 11:42 | XMS_ITS | Encounter Summary ---
:1965 Author Organization [facility] Address [address] [place] [address] Care Team Providers Name Role Phone Unavailable Primary Care Provider Unavailable Encounter Details Date Type Department Care Team Description 02/15/2015 Hospital Encounter HX [facility] Jacob Chun, STEVEN, C.N.P. 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 - 02/15/2015 1:04 PM CST Ambulatory Vitals Height Weight Ambulatory Vitals Height Weight Entered On: 02/15/2015 13:04 TRAIN ANNOUNCER Performed On: 02/15/2015 13:04 TRAIN ANNOUNCER by GABRIEL LUA RN Vitals/Ht/Wt Peripheral Pulse Rate : 86 /min Systolic Blood Pressure : 156 mmHg (HI) Diastolic Blood Pressure : 92 mmHg (>HHI) NIBP Mean : 113 mmHg BP Location : Right upper extremity Blood Pressure Cuff Size : Large Height : 186 cm(Converted to: 6 ft 1 inch(es), 73 inch(es)) GABRIEL LUA RN - 02/15/2015 13:04 TRAIN ANNOUNCER Source: [facility] POWERCHART Document Id: [id number] TRAIN ANNOUNCER!9 N ANNOUNCER documented in this encounter Plan of Treatment Upcoming Encounters Date Type Specialty Care Team Description 02/15/2022 Office Visit Orthopedic Surgery Madyson Rosa, D.ONikhil [address] [place] [phone] (Wo rk) documented as of this encounter Visit Diagnoses Not on filedocumented in this encounter
--- OUTSIDE RECORDS SUMMARY | 2022-01-25 11:42 | XMS_ITS | Encounter Summary ---
:[address] [facility] Address [address] [place] [address] Care Team Providers Name Role Phone Unavailable Primary Care Provider Unavailable Encounter Details Date Type Department Care Team Description 05/28/2012 Hospital Encounter HX [facility] Jaimie Ho M.D. [address] [place], [place] [address] (Wo rk) Social History [...] How often do you attend orthodox or anabaptism More than 4 time s [...] at Date Recorded Male 03/25/2018 1:01 PM LAST CLEANER documented as of this encounter Last Filed Vital Signs Vital Sign Reading Time Taken Comments Blood Pressure 158/90 05/28/2012 9:13 AM LAST CLEANER Pulse 88 05/28/2012 9:13 AM LAST CLEANER Temperature - - Respiratory Rate 16 05/28/2012 9:13 AM LAST CLEANER Oxygen Saturation - - Inhaled Oxygen Concentration - - Weight 147 kg (324 lb 11.8 oz) 05/28/2012 9:13 AM LAST CLEANER Height 186 cm (6' 1.23) 05/28/2012 9:13 AM LAST CLEANER Body Mass Index 42.58 05/28/2012 9:13 AM LAST CLEANER documented in this encounter H&P Notes Russ Benson M.D. - 05/28/2012 9:00 AM CST [id number] CHIEF COMPLAINT/REASON FOR VISIT This 46-year-old male is here for a yearly evaluation of his health and renewal of a blood pressure medication. He also has several health issues that he wants evaluated. SYSTEMS REVIEW Patient was having heart palpitations around [place] time, rather frequently. At this time, they are now infrequent, better. He has had migratory very localized surface pains just under the skin at the surface of muscles. These are always above the waist and the areas can be tender just to touch with your fingertip. These areas are not in joints but in almost any kind a muscle of the upper body. Patient tried some aspirins with some relief. He has a sleep problem and in the past responded to Ambien basically he has a hard time staying asleep. He falls asleep all right. Otherwise no other symptoms. No headaches. No chest pain. No cough. No abdominal pain. No bowel or urine problems. No inflammation of joints. CURRENT MEDICATIONS Hydrochlorothiazide 50 mg 1 daily Protonix 40 mg 1 as needed ALLERGIES No known allergies. PAST MEDICAL/SURGICAL HISTORY Hypertension GERD Insomnia Migratory muscular pain SURGICAL HISTORY: Vasectomy FAMILY HISTORY Father has hypertension and Parkinson disease. Mother has hypertension, inflammatory arthritis and aleft bundle branch on EKG. HABITS: No smoking. Social alcohol. SOCIAL HISTORY . 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 VITAL SIGNS Vital signs pulse 88, blood pressure 158/90, O2 sat 95% room air, height 186 cm, weight 147 kg (322 pounds, unchanged compared to 6 months ago) body mass index 43. PHYSICAL EXAMINATION ENT: Clear upper airway. NECK: No goiter. HEART: Tones regular rhythm, 70 beats per minute. LUNGS: Clear. ABDOMEN: Obesity. LOWER EXTREMITIES: No edema. Deep tendon reflexes symmetrical and normal. SKIN: Clear. Blood pressure recheck 150/96. IMPRESSION/REPORT/PLAN 1. Hypertension loss of control. 2. Gastroesophageal reflux disease (GERD) relatively mild only uses his Protonix 1 or 2 times a week. 3. Insomnia a current problem. Patient requests treatment. 4. Migratory muscle pain suggesting fibromyalgia clinically. 5. Due for tetanus immunization. Patient given Tdap today. 6. History of mild elevation of cholesterol. Will recheck. 7. Cardiac palpitations probably related to under controlled blood pressure. MANAGEMENT PLAN: 1. Increased blood pressure medication from hydrochlorothiazide to metoprolol and hydrochlorothiazide. 2. Resume previous sleep medication Ambien CR 6.25 mg as needed. 3. Continue Protonix as before. 4. Add Anaprox sodium 550 1 twice a day as needed muscle pain. 5. Lab eval to include CBC, basic and lipid profiles, T4 and TSH, sed rate. 6. Send a copy of the labs with any additional instructions such as a low- cholesterol diet; I wouldnot use a statin at this time because of his migratory muscle pain. 7. Return to clinic in 3 months for recheck of blood pressure and general recheck. 8. Advise us if any of the new medications are ineffective or do not agree with you. This was a 45-minute doctor visit. Russ Benson M.D./nasima DOCID: [id number] Electronically Signed By: RUSS BENSON MD On: 06/02/2012 07:47 AM Source: [facility] MHSDOLBEYNONRADSYS Document Id: [id number] CLEANER documented in this encounter Miscellaneous Notes Miscellaneous - Garry Cabrera R.N. - 11/12/2013 10:55 AM CDT refill request - Protonix - LAST OV 05/28/12 Document Contains Addenda Addendum by RUSS BENSON MD on 15 November 2013 08:41:31 CDT From: RUSS BENSON MD Sent: 11/15/2013 08:41:30 CDT Subject: RE:refill request - Protonix - LAST OV 05/28/12 Approved Order:pantoprazole (Protonix 40 mg oral delayed release tablet) 1 tab(s) PO Daily NO FURTHER REFILLSWITHOUT APPOINTMENT. Qty: 30 tab(s) Refills: 0 Substitutions Allowed Route [facility] Signed by RUSS BENSON MD 11/15/2013 08:41:24 From: GARRY CABRERA RN (Critical access hospital Nurse) To: RUSS BENSON MD; Sent: 11/12/2013 10:55:46 CDT Subject: refill request - Protonix - LAST OV 05/28/12 On hold pending signature Order:pantoprazole (Protonix 40 mg oral delayed release tablet) 1 tab(s) PO Daily NO FURTHER REFILLSWITHOUT APPOINTMENT. Qty: 30 tab(s) Refills: 0 Substitutions Allowed Route To Pharmacy - [facility] Caller is: ( ) Patient ( ) Mother ( ) Father ( ) Spouse ( ) Daughter ( ) Son ( x ) Pharmacy ( ) Other: Provider: [facility]: [facility] Aura Vargas Name of Medications Needing Refill: Protonix Last Refill Date: 08/24/13 Additional Information:Patient is long overdue for appointment. Unable to refill per protocol. Last / Future Appointment: 05/28/12 Disposition: ( x ) Send to Pharmacy ( ) Call to Pharmacy ( ) Patient will meat pickler Script ( ) Mail Rxto Patient Source: [facility] POWERCHART Document Id: [id number] Miscellaneous - Conversion, Historical Provider Ser - 09/29/2013 11:34 AM CDT Med Management Document Contains Addenda Addendum by JULIA MCCAULEY RN on 04 October 2013 09:24:17 CDT I meant 2012 Addendum by RUSS BENSON MD on 04 October 2013 08:54:45 CDT From: RUSS BENSON MD Sent: 10/04/2013 08:54:44 CDT Subject: RE:Med Management Approved Order:hydrochlorothiazide (hydrochlorothiazide 50 mg oral tablet) 1 tab(s) PO Daily needs to be seenbefore more refills Qty: 90 tab(s) Refills: 1 Substitutions Allowed Route To [facility]acy - [facility] Signed by RUSS BENSON MD 10/04/2013 08:54:38 From: JULIA MCCAULEY RN ([facility] Nurse) To: RUSS BENSON MD; Sent: 09/29/2013 11:34:05 CDT Subject: Med Management On hold pending signature Order:hydrochlorothiazide (hydrochlorothiazide 50 mg oral tablet) 1 tab(s) PO Daily needs to be seenbefore more refills Qty: 90 tab(s) Refills: 1 Substitutions [facility]owed [facility] Last physical on 05/13/2013 for physical. Needed to return in one year for yearly, has not and doesnt meet protocol Source: [facility] POWERCHART Document Id: [id number] Miscellaneous - Russ Benson M.D. - 05/29/2012 8:00 AM CST Results Notification Document Contains Addenda Addendum by WILMER LOMELI LPN on 01 June 2012 09:03:46 LAST CLEANER results and diets mailed to pt From: RUSS BENSON MD To: WILMER LOMELI LPN; Sent: 05/29/2012 08:00:13 LAST CLEANER Show up: 05/29/2012 07:53:00 LAST CLEANER Subject: Results Notification cbc and chems ok except mild prediabetic increase in fbs.chol too high. sed rate shows no muscle disease. advise lose weight so you dont get clinical diabetes. send a low chol diet and diabetic diet. recheck lipids fasting and do a a1c in 6 mo's.muscle problem is fibromyalgia, ?massage therapy? Results: Date Result Name Ind Value Ref Range 05/28/2012 09:30 Sodium Lvl 139 mmol/L (135 - 145) 05/28/2012 09:30 Potassium Lvl 4.2 mmol/L (3.5 - 5.0) 05/28/2012 09:30 Chloride 98 mmol/L (95 - 106) 05/28/2012 09:30 CO2 28 mmol/L (21 - 32) 05/28/2012 09:30 AGAP (H) 17 mmol/L (7 - 16) 05/28/2012 09:30 Glucose Fasting (H) 103 mg/dL (70 - 99) 05/28/2012 09:30 Creatinine (L) 0.7 mg/dL (0.8 - 1.3) 05/28/2012 09:30 EGFR (MDRD) >60.0 (>=60.0 - ) 05/28/2012 09:30 EGFR (MDRD) >60.0 (>=60.0 - ) 05/28/2012 09:30 BUN 18 mg/dL (5 - 24) 05/28/2012 09:30 Calcium Lvl 10.1 mg/dL (8.4 - 10.3) 05/28/2012 09:30 Cholesterol (H) 259 mg/dL (120 - 200) 05/28/2012 09:30 Trig 119 mg/dL (35 - 185) 05/28/2012 09:30 HDL 55 mg/dL (>=40 - ) 05/28/2012 09:30 LDL Calculated (H) 180 mg/dL (60 - 130) 05/28/2012 09:30 Chol/HDL Ratio (H) 4.7 (0.0 - 4.5) 05/28/2012 09:30 LDL/HDL 3 05/28/2012 09:30 TSH 1.390 uIU/mL (0.300 - 5.000) 05/28/2012 09:30 T4 Free 1.12 ng/dL (0.80 - 1.80) 05/28/2012 09:30 Hgb 16.6 g/dL (13.5 - 17.5) 05/28/2012 09:30 Hct 46.3 % (38.8 - 50.0) 05/28/2012 09:30 WBC 6.2 x10(9)/L (3.5 - 10.5) 05/28/2012 09:30 RBC 5.18 x10(12)/L (4.32 - 5.72) 05/28/2012 09:30 MCV 89.4 fL (81.0 - 95.0) 05/28/2012 09:30 RDW 12.2 % (11.8 - 15.6) 05/28/2012 09:30 Platelet 244 x10(9)/L (150 - 450) 05/28/2012 09:30 Sed Rate 12 mm/hr (0 - 22) Source: [facility] POWERCHART Document Id: [id number] Miscellaneous - Russ Benson M.D. - 05/28/2012 10:30 AM CST Ambulatory Patient Summary [address] [address] Visit Information Name: SAAD MURRAY Jarad [facility] Number: [id number] Current Date: 05/28/2012 10:29:59 Physicians Attending Provider: RUSS BENSON MD Primary Care Provider: RUSS BENSON MD Your Medications Here is a list of your medications. It is important to take your medications as directed. Use a pillbox or chart to help remind you to take your medications. Please let your doctor or nurse know if you have problems taking your medications. Medication/Strength Dose Route Frequency Indications/Special Instructions/Comments naproxen (naproxen sodium 550 mg oral tablet) 550 mg Oral two times a day as needed for arthritis zolpidem (Ambien CR 6.25 mg oral tablet, extended release) 6.25 mg Oral once a day (at bedtime) hydrochlorothiazide (hydrochlorothiazide 50 mg oral tablet) 50 mg Oral once a day pantoprazole (Protonix 40 mg oral delayed release tablet) 40 mg Oral once a day metoprolol (metoprolol succinate 50 mg oral tablet, extended release) 50 mg Oral once a day Attention: If you have any medications at home that are not on this list, DO NOT take them until youcontact your provider for clarification. Your Allergies & Intolerances Substance Reaction Symptoms Category Comments No Known Allergies Drug Your Problem List Problem Status Onset Comments HTN [Hypertension] Active GERD [Gastroesophageal reflux disease] Active Your Upcoming Appointments Date Time Location Reason Provider No Appointments found Your Goals/Additional instructions: Source: [facility] POWERCHART Document Id: [id number] CLEANER Miscellaneous - Russ Benson M.D. - 05/28/2012 10:29 AM CST Ambulatory Depart Summary [address] [address] Visit Information Name: SAAD MURRAY [facility] Number: [id number] Visit Date: 05/28/2012 10:29:59 Attending Provider: RUSS BENSON MD Primary Care Provider: RUSS BENSON MD SAAD MURRAY has been given the following list of medications: Your Medications It is important to take your medications as directed. Use a pill box or chart to help remind you to take your medications. Please let your doctor or nurse know if you have problems taking your medications. Medication/Strength Dose Route Frequency Indications/Special Instructions/Comments naproxen (naproxen sodium 550 mg oral tablet) 550 mg Oral two times a day as needed for arthritis zolpidem (Ambien CR 6.25 mg oral tablet, extended release) 6.25 mg Oral once a day (at bedtime) hydrochlorothiazide (hydrochlorothiazide 50 mg oral tablet) 50 mg Oral once a day pantoprazole (Protonix 40 mg oral delayed release tablet) 40 mg Oral once a day metoprolol (metoprolol succinate 50 mg oral tablet, extended release) 50 mg Oral once a day Attention: If you have any medications at home that are not on this list, DO NOT take them until youcontact your provider for clarification. Additional Information: Source: [facility] POWERCHART Document Id: [id number] CLEANER Wilmer Reyna, Augusto.P.N. - 05/28/2012 10:10 AM CST Health Assessment Health Assessment Entered On: 05/28/2012 10:10 LAST CLEANER Performed On: 05/28/2012 10:10 LAST CLEANER by WILMER LOMELI LPN Health Assessment Complete Health Assessment Complete or Modified : Annual Health Assessment Annual Health Assessment Completed : Yes WILMER LOMELI LPN - 05/28/2012 10:10 LAST CLEANER Nutrition Nutrition Risk Factors by History Adult : None WILMER LOMELI LPN - 05/28/2012 10:10 LAST CLEANER Functional Current Daily Living Assistance : None WILMER LOMELI LPN - 05/28/2012 10:10 LAST CLEANER Dependent Habits Tobacco Use/Currently Using : No Smoking Status : Former smoker WILMER LOMELI LPN - 05/28/2012 10:10 LAST CLEANER Psychosocial Domestic Abuse Concerns : None WILMER LOMELI LPN - 05/28/2012 10:10 LAST CLEANER Advance Directive Advanced Directives : No WILMER LOMELI LPN - 05/28/2012 10:10 LAST CLEANER Educ Needs Learning Style Preference Adult Grid Patient : None Family : None WILMER LOMELI LPN - 05/28/2012 10:10 LAST CLEANER Source: [facility] [employer] BankCHART Document Id: [id number] CLEANER Tete - Wilmer Lomeli L.P.N. - 05/28/2012 9:13 AM CST Adult Restaurant Assistant Intake/History Adult Restaurant Assistant Intake/History Entered On: 05/28/2012 9:19 LAST CLEANER Performed On: 05/28/2012 9:13 LAST CLEANER by WILMER LOMELI LPN Intake Chief Complaint : Pt here for physical exam and med refills. Would like Rx for Ambien also. Is having a hard time sleeping. c/o joint pain all over. ok when up and moving but gets bad after sitting. Feels stiff and sore. Has tried OTC Tylenol. ibuprofen and Jose aspirin Peripheral Pulse Rate : 88/min Respiratory Rate : 16/min Heart Rhythm : Regular Systolic Blood Pressure : 158mmHg (HI) Diastolic Blood Pressure : 90mmHg (HI) NIBP Mean : 113mmHg Blood Pressure Cuff Size : Large SpO2 : 95% Oxygen Therapy : Room air Height : 186cm(Converted to: 6ft 1inch(es), 73.23inch(es)) Actual Weight : 147.3kg(Converted to: 324lb 12oz) Weight Source : Standing scale Dosing Weight Clinic : 147.30kg Clinic BSA : 2.76 Body Mass Index : 42.58kg/m2 WILMER LOMELI LPN - 05/28/2012 9:13 LAST CLEANER General Info Information Given By : Patient Languages : [place] WILMER LOMELI LPN - 05/28/2012 9:13 LAST CLEANER Subjective Pain Symptoms : Yes WILMER LOMELI LPN - 05/28/2012 9:13 LAST CLEANER Pain Pain Assessment Grid Pain 1 Location : Other: Joints and muscle aches all over body WILMER LOMELI LPN - 05/28/2012 9:13 LAST CLEANER Dependent Habits Tobacco Use/Currently Using : No Smoking Status : Former smoker WILMER LOMELI LPN - 05/28/2012 9:13 LAST CLEANER Allergy Allergies (Active) NKA Estimated Onset Date: Unspecified ; Created By: WILMER LOMELI LPN; Reaction Status: Active ; Category: Drug ; Substance: NKA ; Type: Allergy ; Updated By: WILMER LOMELI LPN; Reviewed Date: 04/30/2012 16:05 LAST CLEANER Source: [facility] POWERCHART Document Id: [id number] CLEANER documented in this encounter Plan of Treatment Upcoming Encounters Date Type Specialty Care Team Description 02/15/2022 Office Visit Orthopedic Surgery Madyson Rosa, DaydayONikhil [address] [place], [place] [phone] (Wo rk) documented as of this encounter Procedures Procedure Name Priority Date/Time Associated Comments Diagnosis LIPID PANEL, S Routine 05/28/2012 9:30 AM Results for this LAST CLEANER procedure are i n the results section. SEDIMENTATION RATE, B Routine 05/28/2012 9:30 AM Results for this LAST CLEANER procedure are i n the results section. CBC WITHOUT Routine 05/28/2012 9:30 AM Results f or this DIFFERENTIAL, B LAST CLEANER procedure ar e in the results section. THYROID-STIMULATING Routine 05/28/2012 9:30 AM Re sults for this HORMONE-SENSITIVE LAST CLEANER procedure are in (S-TSH) the results section. T4 (THYROXINE), FREE, Routine 05/28/2012 9:30 AM Results for this S LAST CLEANER procedure are i n the results section. BASIC METABOLIC PANEL, Routine 05/28/2012 9:30 AM Results for this S/P LAST CLEANER procedure are i n the results section. documented in this encounter Results Sedimentation Rate (05/28/2012 9:30 AM LAST CLEANER) [facility] Signature Sedimentation 12 0 - 22 POWERCHART Rate, B MMHR Specimen (Source) Anatomical Collection Method Collection Time Re ceived Time Location / / Volume Laterality Blood 05/28/2012 9:30 AM LAST CLEANER Russ Benson M.D. LAB BLOOD ADD-ON Performing Organization Address City/State/ZIP Code Phon e Number POWERCHART CBC without Differential (05/28/2012 9:30 AM LAST CLEANER) athologist Signature Leukocytes 6.2 3.5 - 10.5 POWERCHART X109L Erythrocytes 5.18 4.32 - 5.72 POWERCHART N1808I Hemoglobin 16.6 13.5 - 17.5 POWERCHART GDL Hematocrit 46.3 38.8 - 50.0 POWERCHART MCV 89.4 81.0 - 95.0 POWERCHART FL HX RDW 12.2 11.8 - 15.6 POWERCHART Platelet Count 244 150 - 450 POWERCHART X109L Specimen (Source) Anatomical Collection Method Collection Time Re ceived Time Location / / Volume Laterality Blood 05/28/2012 9:30 AM LAST CLEANER Russ Benson M.D. LAB BLOOD ADD-ON Performing Organization Address City/State/ZIP Code Phon e Number POWERCHART T4 (Thyroxine), Free (05/28/2012 9:30 AM LAST CLEANER) P athologist Signature T4 (Thyroxine), 1.12 0.80 - 1.80 POWERCHART Free, S NGDL Specimen (Source) Anatomical Collection Method Collection Time Re ceived Time Location / / Volume Laterality Blood 05/28/2012 9:30 AM LAST CLEANER Russ Benson M.D. LAB BLOOD ADD-ON Performing Organization Address City/[facility]/ZIP Code Phon e Number POWERCHART Thyroid-Stimulating Hormone-Sensitive (s-TSH) (05/28/2012 9:30 AM LAST CLEANER) P athologist Signature TSH 1.390 0.300 - POWERCHART (Thyrotropin) 5.000 UIUML Specimen (Source) Anatomical Collection Method Collection Time Re ceived Time Location / / Volume Laterality Blood 05/28/2012 9:30 AM LAST CLEANER Russ Benson M.D. LAB BLOOD ADD-ON Performing Organization Address City/[facility] Code Phon e Number POWERCHART (ABNORMAL) Lipid Panel (05/28/2012 9:30 AM LAST CLEANER) [facility] Method Time Signature Cholesterol, Total 259 (H) 120 - 200 POWERCHART MGDL HX HDL 55 >=40 MGDL POWERCHART Triglycerides 119 35 - 185 POWERCHART MGDL Calculated LDL 180 (H) 60 - 130 POWERCHART MGDL Total 4.7 (H) 0.0 - 4.5 POWERCHART Cholesterol/HDL Ratio HXLDL/HDL 3 POWERCHART Specimen (Source) Anatomical Collection Method Collection Time Re ceived Time Location / / Volume Laterality Blood 05/28/2012 9:30 AM LAST CLEANER Russ Benson M.D. LAB BLOOD ADD-ON Performing Organization Address City/[facility]/ZIP Code Phon e Number POWERCHART (ABNORMAL) BMP (Basic Metabolic Panel) (05/28/2012 9:30 AM LAST CLEANER) P athologist Signature Sodium, S 139 135 - 145 POWERCHART MMOLL Potassium, S 4.2 3.5 - 5.0 POWERCHART MMOLL Chloride, S 98 95 - 106 POWERCHART MMOLL CO2 Total 28 21 - 32 POWERCHART MMOLL Glucose, 103 (H) 70 - 99 POWERCHART Fasting, S MGDL BUN (Blood Urea 18 5 - 24 POWERCHART Nitrogen), S MGDL Creatinine 0.7 (L) 0.8 - 1.3 POWERCHART MGDL Calcium, Total, 10.1 8.4 - 10.3 POWERCHART S MGDL Anion Gap 17 (H) 7 - 16 POWERCHART MMOLL HXeGFR (MDRD) >60.0 >=60.0 POWERCHART eGFR >60.0 >=60.0 POWERCHART Black/ Specimen (Source) Anatomical Collection Method Collection Time Re ceived Time Location / / Volume Laterality Blood 05/28/2012 9:30 AM LAST CLEANER Russ Benson M.D. LAB BLOOD ADD-ON Performing Organization Address City/State/ZIP Code Phon e Number POWERCHART documented in this encounter Visit Diagnoses Not on filedocumented in this encounter
--- OUTSIDE RECORDS SUMMARY | 2022-01-25 11:42 | XMS_ITS | Encounter Summary ---
:1965 Author Organization [facility] Address [address] [place] [address] Care Team Providers Name Role Phone Unavailable Primary Care Provider Unavailable Encounter Details Date Type Department Care Team Description 01/02/2016 Hospital Encounter HX [facility] Jacob Chun, STEVEN, C.N.P. 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 documented as of this encounter Last Filed Vital Signs Vital Sign Reading Time Taken Comments Blood Pressure 140/84 01/02/2016 8:58 AM CDT Pulse 92 01/02/2016 8:58 AM CDT Temperature - - Respiratory Rate 20 01/02/2016 8:58 AM CDT Oxygen Saturation - - Inhaled Oxygen Concentration - - Weight 158 kg (349 lb 3.3 oz) 01/02/2016 8:58 AM CDT Height 185 cm (6' 0.84) 01/02/2016 8:58 AM CDT Body Mass Index 46.28 01/02/2016 8:58 AM CDT documented in this encounter Medications at Time of Discharge Medication Sig Dispensed Refills Start Date End Date atorvastatin (for_LIPITOR) Take 1 tablet by 0 03/06/2017 20 mg tablet mouth at bedtime. metoprolol succinate Take 1 tablet by 0 6 05/12/2017 (for_TOPROL-XL) 25 mg 24 mouth daily. hr tablet documented as of this encounter Progress Notes Norma Solis APRN, C.N.P. - 01/02/2016 8:56 AM CDT [id number] CHIEF COMPLAINT/REASON FOR VISIT Right hip pain. HISTORY OF PRESENT ILLNESS Twin presents to clinic today here with concerns of right sided low back and hip pain that has been worsening over the past 1 to 2 months. He states he has had chronic low back pain issues for the past 20 years. About 2 months ago, he started having pain in his right lower back. It has now moved into his hip and down the back of his right leg. Exacerbating factors include working, sitting on his billfold and laying on his right side. Alleviating factors temporarily include ice and ibuprofen. He has not tried any stretching. No patient care technician. No heat. He denies any numbness or tingling to his foot. He denies any injury. He has been under a lot of stress lately as his has been sick and his work has been busy. Patient also notes a bump on his belly button for about the past 3 weeks. He only notices it when standing, not while laying. It does not hurt him otherwise. In regard to his blood pressure, he is taking lisinopril hydrochlorothiazide 20 to 25 1 tab daily and tolerating it well. He is taking that in the morning. Atorvastatin 20 mg in the evening. He has not needed to take the metoprolol succinate and has not had any palpitations. His blood pressure looks good today. He takes his Protonix minimally. MEDICATIONS Current medications reconciled in EMR. ALLERGIES No known allergies. PAST MEDICAL/SURGICAL HISTORY 1. Morbid obesity with BMI of 46. 2. Hyperlipidemia. 3. Hypertension. 4. Esophageal reflux. SOCIAL HISTORY Nonsmoker. 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 He lives at home with and children. VITAL SIGNS Temp 36.9, heart rate 92, respiratory rate 20, blood pressure 140/84, oxygen 97% on room air. [id number] cm, weight 158.4 kg. BMI is 46.3. He rates as 3/10. PHYSICAL EXAMINATION GENERAL: Twin is alert and oriented. He is calm, cooperative throughout our exam. He appears to be inno acute distress. ABDOMEN is soft and nondistended. It is nontender to palpation. There is normoactive bowel sounds. He does have a small umbilical hernia present with abdominal flexion. It is again small and easily reducible. SPINE: Appears straight. No evidence of abnormal curvature. The patient points to pain in his right lower back that goes down his right hip and leg. Neurovascularly intact. Straight leg raise negative. IMPRESSION/REPORT/PLAN 1. Right-sided sciatica And/or congruent piriformis syndrome. We discussed treatment and management options. We will start him on a Medrol Dosepak to be taken as directed. I have advised ice and heat, avoiding wallet in his back pocket and stretching daily. He will consult Physical Therapy to get started on some formal physical therapy as this is not providing relief. The medication was discussed including possible side effects. I advised to not take any ibuprofen while taking the Medrol Dosepak andto take his Protonix daily as well. He will follow up in 1 to 2 weeks if his symptoms are not improving with physical therapy. 2. Umbilical hernia. We discussed hernias and their conservative versus surgical treatment options. States he does not have time for any surgical option at this point. It is quite small and reducible so we discussed ways to keep his hernia from enlarging. 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 We discussed proper ergonomics, how to avoid exacerbating his hernia perhapswearing a weightlifting belt which he is not sure he would be able to do. He will discuss this further with physical therapy but we did discuss the signs or symptoms of an incarcerated hernia, needing emergent care and if possible general surgery consult in the future. 3. Hypertension. Blood pressure is well controlled today. I have requested some fasting lab work to follow up on his lipids and liver enzymes to which he declined today stating he would return to clinic next week for a lab only visit. He is not fasting today. All questions answered. Twin understood and agreed with this plan. Norma Solis APRN, C.N.P./pos Electronically Signed By: NORMA SOLIS CNP On: 01/05/2016 07:36 AM Source: [facility] MHSDOLBEYNONRADSYS Document Id: [id number] documented in this encounter Miscellaneous Notes Miscellaneous - Lela Shoemaker - 04/17/2016 3:33 PM CST Norma Palma nurse-Please call back today if possible Document Contains Addenda Addendum by JALEEL TIMMONS RN on April 22, 2016 09:56:58 [employer]ER LMTCB Addendum by JALEEL TIMMONS RN on April 19, 2016 08:30:37 [employer] BEV[employer]ER LMTCB Addendum by JALEEL TIMMONS RN on April 18, 2016 16:18:14 [employer] BEVELER LMTCB Addendum by JULIA LAKE RN on April 17, 2016 15:38:16 [employer] BEVELER From: JULIA LAKE RN ([facility] Family Medicine Nurse) To: [facility] Specialty [facility] Nurse; Sent: 04/17/2016 15:38:16 [employer]AR[employer] BEVELER Subject: FW: Dr. Olvera - Please call back today if possible From: LEAL SHOEMAKER ([facility]) To: [facility] Family Medicine Nurse; Cc: [facility]; Sent: 04/17/2016 15:33:42 [employer]AR[employer] BEVELER Subject: Norma Palma nurse-Please call back today if possible If you need a prescription refill please call your pharmacy. Please allow 3 business days for processing. Call Center Template: ?? May we leave a message for you on this phone? Yes ?? What can I help you with today? Twin called in this afternoon and said that he had hernia surgery last Friday. He is taking oxycodone that was prescribed by Dr. Olvera and is going to be taking his last two tonight. He has been trying to stretch the prescription out, but is having pain because he hada cough before the surgery and still has the cough which has been agitating it more. Please call himtoday if possible to discuss. Thank you. ?? If Medication Refill: o What is the medication? o What pharmacy do you use? o Have you contacted your pharmacy regarding this request? I will send this information to the appropriate staff member who will look into your concern. If thenurse needs to talk to you he or she will call you back within two hours. Thank you for calling [facility]. Source: [facility] POWERCHART Document Id: [id number] Electronically signed by Alice [facility] Media Relations Manager [id number] at 08/25/2016 8:58 AM CDT Miscellaneous - Lakeisha Cassidy L.P.N. - 02/19/2016 12:46 PM [employer] B[employer]ER [place] - Umbilical Hernia Document Contains Addenda Addendum by HETAL JARA RN on February 20, 2016 09:27:50 [employer] BEVELER LM informing Pt of consult order. Addendum by DEVORA REY NP on February 19, 2016 21:52:26 [employer] BEV[employer]ER From: DEVORA REY NP To: [facility]; Sent: 02/19/2016 21:52:26 [employer] BEVELER Subject: RE: [place] - Umbilical Hernia Consult placed. My deepest sympathy in the loss of his . Please let us know anything else we can do to help. Thanks, HAO Addendum by HETAL JARA RN on February 19, 2016 13:22:19 [employer] BEVELER From: HETAL JARA RN ([facility] Medicine Nurse) To: DEVORA REY NP; Sent: 02/19/2016 13:22:19 [employer]AR[employer] BEVELER Subject: FW: Efraín - Umbilical Hernia Would Pt need to be reevaluated, or would you put an order in for general surgery consult? Looks like one was placed on 01/23/16, but was cancelled. Notes from 01/02/16 with Norma Solis CNP 2. Umbilical hernia. We discussed hernias and their conservative versus surgical treatment options. States he does not have time for any surgical option at this point. It is quite small and reducible so we discussed ways to keep his hernia from enlarging. 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 We discussed proper ergonomics, how to avoid exacerbating his hernia perhapswearing a weightlifting belt which he is not sure he would be able to do. He will discuss this further with physical therapy but we did discuss the signs or symptoms of an incarcerated hernia, needing emergent care and if possible general surgery consult in the future. Addendum by LAKEISHA CASSIDY LPN on February 19, 2016 13:03:36 [employer]ER Patient states that he was seen on 01/02/2016 and discussed a Umblical Hernia. Patient thought he was going to be referred Gen Surgery for consult. States he may have had a call but due to the of his on 01/12/2016, he might have missed it in all the stress. Patient says it was the size of a nickel at visit, it is now the size of a quarter. Denies any pain.States he has been coughing a lot recently. If he does need surgery, he would like to schedule it during his daughter's Jin Break. She is a nursing studen and will be home to help him. # - [phone] - Home, Okay to leave message. # - [phone] - Cell, Okay to leave message. From: LAKEISHA CASSIDY LPN To: [facility] Nurse; Sent: 02/19/2016 12:46:21 [employer]AR[employer] BEVELER Subject: Efraín - Umbilical Hernia Source: [facility] POWERCHART Document Id: [id number] Electronically signed by Alice, [facility] Media Relations Manager [id number] at 08/25/2016 8:58 AM CDT Miscellaneous - Norma Solis APRN, C.N.P. - 01/02/2016 11:18 AM CDT Ambulatory Patient Summary [address] [id number] Visit Information Name: SAAD MURRAY [facility] Number: [id number] Current Date: 01/02/2016 11:18:28 Physicians Attending Provider: NORMA SOLIS CNP Primary [...] tablet) 1 Tablet(s),Oral, once a day (Zestoretic) methylPREDNISolone (Medrol Dosepak 4 mg oral tablet) See special instructions, Oral, as directed x 6day(s) New Routed to [address] [address] metoprolol (metoprolol succinate 25 mg oral tablet, extended release) 1 Tablet(s), Oral, once a day Take as needed for palpitations or if BP is higher than 140/90 pantoprazole (Protonix 40 mg oral delayed release tablet) 1 Tablet(s), Oral, once a day Stop Taking the Following Medications: Medication list as of 01-02-16 11:18 Attention: If you have any medications at [...] Electronically Signed By: NORMA SOLIS CNP Signed On:02-JAN-2016 11:18:24 Your Allergies & Intolerances Substance Reaction Symptoms [...] if you dont have one. Go to [email or web address] and click on Create Your Account. Then, follow the directions to complete the online form. Youll be asked for your [facility] number which you can find at the top of this document. Your Goals/Additional instructions: Source: [facility] POWERCHART Document Id: [id number] Miscellaneous - Norma Solis APRN, C.N.P. - 01/02/2016 11:18 AM CDT Ambulatory Discharge Medication List [address] [id number] Visit Information Name: SAAD MURRAY [facility] Number: [id number] Current Date: 01/02/2016 11:18:27 Attending Provider: NORMA SOLIS CNP Primary Care [...] tablet) 1 Tablet(s),Oral, once a day (Zestoretic) methylPREDNISolone (Medrol Dosepak 4 mg oral tablet) See special instructions, Oral, as directed x 6day(s) New Routed to [address] [address] metoprolol (metoprolol succinate 25 mg oral tablet, extended release) 1 Tablet(s), Oral, once a day Take as needed for palpitations or if BP is higher than 140/90 pantoprazole (Protonix 40 mg oral delayed release tablet) 1 Tablet(s), Oral, once a day Stop Taking the Following Medications: Medication list as of 01-02-16 11:18 Attention: If you have any medications at [...] of emergency. Electronically Signed By: NORMA SOLIS SLIDE FASTENER REPAIRER Signed On:02-JAN-2016 11:18:24 Additional Information: Source: [facility] POWERCHART Document Id: [id number] Miscellaneous - Jeannette Gleason L.PNikhilN. - 01/02/2016 8:58 AM CDT Adult Appliance Counselor Intake/History Document Has Been Updated Adult Appliance Counselor Intake/History Entered On: 01/02/2016 9:04 CDT Performed On: 01/02/2016 8:58 CDT by MALINSKI, JEANNETTE MAURICIO LANDSCAPE FOREMAN Intake Ambulatory Intake Additional Information : starts in lower rt back raditates to rt hip and down the leg Chief Complaint : follow up blood pressure/ right hip pain VICTORINO JEANNETTE MARTÍNEZ LPN - 01/02/2016 9:07 CDT Temperature Core : 36.9 DegC(Converted to: 98.4 DegF) Peripheral Pulse Rate : 92 /min Respiratory Rate : 20 /min Systolic Blood Pressure : 140 mmHg Diastolic Blood Pressure : 84 mmHg NIBP Mean : 103 mmHg BP Location : Right upper extremity Blood Pressure Cuff Size : Large SpO2 : 97 % Oxygen Therapy : Room air Height : 185 cm(Converted to: 6 ft 1 inch(es), 73 inch(es)) Actual Weight : 158.4 kg(Converted to: 349 lb 3 oz) Weight Source : Standing scale Dosing Weight Clinic : 158.4 kg Clinic BSA : 2.85 Body Mass Index : 46.28 kg/m2 VICTORINO JEANNETTE MARTÍNEZ LPN - 01/02/2016 8:58 CDT General Info Information Given By : Patient Preferred Communication Mode : Verbal Languages : Albanian Is Patient Female and 13-50 no hysterectomy : No JEANNETTE GLEASON LPN - 01/02/2016 8:58 CDT Subjective Pain Symptoms : Yes JEANNETTE GLEASON LPN - 01/02/2016 9:08 CDT Pain Scale Pain Scale Verbal 0-10 : Open JEANNETTE GLEASON LPN - 01/02/2016 9:08 CDT Pain Pain Assessment Grid Pain 1 Location : Hip Laterality : Right Intensity : 3 Time Pattern : Acute, Intermittent Onset : Sudden Quality : Burning, Cramping Aggravating Factors : Other: lying down on it. Alleviating Factors : Rest JEANNETTE GLEASON LPN - 01/02/2016 9:08 CDT Dependent Habits Exposure to Tobacco Smoke : Other: former smoker Smoking Status : Former smoker Tobacco 2A : Yes Tobacco Use/Currently Using : No Tobacco Use/Last 30 Days : No Tobacco Use/Last 12 months : No JEANNETTE GLEASON LPN - 01/02/2016 8:58 CDT [facility] Document Id: [id number] CDT!16 documented in this encounter Plan of Treatment Upcoming Encounters Date Type Specialty Care Team Description 02/15/2022 Office Visit Orthopedic Surgery Madyson Rosa D.ONikhil [address] [place] [address] [phone] (Wo rk) documented as of this encounter Visit Diagnoses Not on filedocumented in this encounter
--- OUTSIDE RECORDS SUMMARY | 2022-01-25 11:42 | XMS_ITS | Encounter Summary ---
:1965 Author Organization [facility] Address [address] [place] [address] Care Team Providers Name Role Phone Unavailable Primary Care Provider Unavailable Encounter Details Date Type Department Care Team Description 04/12/2016 Hospital Encounter HX [facility] MAQN SDS Lakeisha Olvera M.D. Social History Tobacco Use Types Packs/Day [...] How often do you attend caodaism or adventism More than 4 time s [...] at Date Recorded Male 03/25/2018 1:01 PM LEAD SUSTAINABILITY SPECIALIST documented as of this encounter Last Filed Vital Signs Vital Sign Reading Time Taken Comments Blood Pressure 132/73 04/12/2016 3:53 PM LEAD SUSTAINABILITY SPECIALIST Pulse 82 04/12/2016 3:53 PM LEAD SUSTAINABILITY SPECIALIST Temperature - - Respiratory Rate 16 04/12/2016 3:53 PM LEAD SUSTAINABILITY SPECIALIST Oxygen Saturation - - Inhaled Oxygen Concentration - - Weight 155 kg (341 lb 4.4 oz) 04/12/2016 10:34 AM LEAD SUSTAINABILITY SPECIALIST Height 185 cm (6' 0.84) 04/12/2016 3:53 PM LEAD SUSTAINABILITY SPECIALIST Body Mass Index 45.23 04/12/2016 10:34 AM LEAD SUSTAINABILITY SPECIALIST documented in this encounter Discharge Summaries Lakeisha Figueroa R.N. - 04/12/2016 4:01 PM CST Hospital Discharge Instructions [facility] [address] [place] [address] Patient Discharge Instructions Name: SAAD MURRAY Current Date: 04/12/2016 16:01:38 : 1965 12:00 AM [facility] Number: [id number] Patient Address: [address] [place], [place] [id number] Patient Primary Care Provider: Name: DANYEL SOLIS CNP Discharge Diagnosis: [facility] in [place] would like to thank you for allowing us to assist you with your healthcare needs. The following includes patient education materials and information regarding your injury/illness. Comment: HERBIEADRIENNE SAAD Jarad has been given the following list of follow-up instructions, medication list, and patient education materials: Follow-up Instructions With: Address: When: LAKEISHA OLVERA [address] [place] [address] 04/23/2016 8:30 AM Comments: Call Dr. Olvera for futher questions or concerns regarding your surgery. His cell number is [phone]. For other questions contact your primary Dr. Che to your incision for the next 3 days and then as needed. Take pain pills as prescribed with food. You can take off the dressing on your stomach on Friday and then shower Under the dressing is Dermabond (surgical glue) this will fall off on its ownin 7-10 days. You can shower but do not soak in hot tub or pool until it is healed. Discharge Diet Diet Type: Resume previous diet Discharge Instruction General Activity Limitations: May shower Avoid Lifting: Greater than 10 pounds Duration of Lifting Limitations: 6 weeks Driving Limitations: Don't drive while taking pain medicine Medications Medication/Strength How to Take Indications/Special Instructions/Comments/Notes for Patient Medication Changes/Routing atorvastatin (atorvastatin 20 mg oral tablet) 1 Tablet(s), Oral, once a day (at bedtime) lisinopril-hydroCHLOROthiazide (lisinopril-hydroCHLOROthiazide 20mg-25mg oral tablet) 1 Tablet(s), Oral, once a day (Zestoretic) metoprolol (metoprolol succinate 25 mg oral tablet, extended release) 1 Tablet(s), Oral, once a day Take as needed for palpitations or if BP is higher than 140/90 oxyCODONE-acetaminophen (Percocet 5/325 oral tablet) 1 to 2 tablets, Oral, every 6 hours as needed for Pain No more than 4,000mg acetaminophen/24hrs New Routed to Printer pantoprazole (Protonix 40 mg oral delayed release tablet) 1 Tablet(s), Oral, once a day traMADol (traMADol 50 mg oral tablet) 1-2 tab(s), Oral, two times a day as needed for Pain Stop Taking the Following Medications: Medication list as of 04-12-16 16:01 Attention: If you have any medications at home that are not on this list, DO NOT take them until youcontact your provider for clarification. Give a copy of your medication list to your primary care provider. Update your medication list any time medications or doses are changed and carry your medication list at all times in case of emergency. Comment: Electronically Signed By: Signed On: Your Upcoming Appointments Date Time Location Provider 04/23/2016 08:30 [facility] Lori Wade ALLISON, Lakeisha Bonner Consider Using Patient Online Services Patient Online [...] if you dont have one. Go to [email or web address] and click on Create Your Account. Then, follow the directions to complete the online form. Youll be asked for your [facility] number which you can find at the top of this document. LISETTE Levy TIMOTHY D , have received the attached patient education materials/instructions and have verbalized understanding: Patient Signature Date Time Care Provider Signature Date Time Discharge Instructions for Open Hernia Repair You had a procedure called open hernia repair. Also called a rupture, a hernia is a tear or weaknessin the wall of the abdomen. This weakness may be present at . Or it can be caused by the wear and tear of daily living. Hernias may get worse with time or with physical stress. But surgery can help repair the weakness and eliminate symptoms. Activity After Surgery ?? After surgery, take it easy for the rest of the day. If you had general anesthesia, dont use machinery or power tools, drink alcohol, or make any major decisions for at least the first 24 hours. ?? Dont drive while you are still taking narcotic pain medication and dont drive for at least 2 weeks after the operation. ?? Ask others to help with chores and errands while you recover. ?? Dont lift anything heavier than 10 pounds until your doctor says its okay. ?? Dont mow the lawn, use a vacuum truck car and bus cleaner, or do other strenuous activities until your doctor says its okay. ?? Avoid stair climbing for the first 2 weeks after your surgery. If you must climb stairs, go slowly and pause after every few steps. ?? Walk as often as you feel able. ?? Continue the coughing and deep breathing exercises that you learned in the hospital. ?? Ask your doctor when you can expect to return to work. ?? Avoid constipation: ?? Eat fruits, vegetables, and whole grains. ?? Drink 6--8 glasses of water a day, unless otherwise instructed. ?? Use a laxative or a mild stool softener if your doctor says its okay. Bandage and Incision Care ?? Do not get the bandage or wound wet for 48 hours. ?? If strips of tape were used to close your incision, dont pull them off. Let them fall off on their own. ?? Remove any gauze bandage in 48 hours. ?? Wash your incision with mild soap and water. Pat it dry. Dont use oils, powders, or lotions on your incision. Keep Follow-up Appointments Keep follow-up appointments during your recovery. These allow your doctor to check your progress andmake sure youre healing well. You may also need to have your stitches, margret, or bandage removed. During office visits, tell your doctor if you have any new symptoms. And be sure to ask any questionsyou have. When to Call Your Doctor Call your doctor immediately if you have any of the following: A large amount of swelling or bruising (some testicular swelling and bruising is common) Bleeding Increasing painIncreased redness or drainage of the incision Fever 100.4?F, or higher Trouble urinating Nausea or vomiting ?? [id number] [place] [address]. All rights reserved. This information is not intended as a substitute for professional medical care. Always follow your healthcare professional's instructions. Source: [facility] POWERCHART Document Id: [id number] SUSTAINABILITY SPECIALIST Lakeisha Figueroa R.N. - 04/12/2016 4:01 PM CST Hospital Discharge Medication List [address] [address] Discharge Medication List Name: SAAD MURRAY Current Date: 04/12/2016 16:01:37 : 1965 12:00 AM [facility] Number: [id number] Patient Address: [address] [place] [id number] Patient Primary Care Provider: Name: DANYEL SOLIS CNP Discharge Diagnosis: [facility] in [place] would like to thank you for allowing us to assist you with your healthcare needs. The following includes patient education materials and information regarding your injury/illness. Medications Medication/Strength How to Take Indications/Special Instructions/Comments/Notes for Patient Medication Changes/Routing atorvastatin (atorvastatin 20 mg oral tablet) 1 Tablet(s), Oral, once a day (at bedtime) lisinopril-hydroCHLOROthiazide (lisinopril-hydroCHLOROthiazide 20mg-25mg oral tablet) 1 Tablet(s), Oral, once a day (Zestoretic) metoprolol (metoprolol succinate 25 mg oral tablet, extended release) 1 Tablet(s), Oral, once a day Take as needed for palpitations or if BP is higher than 140/90 oxyCODONE-acetaminophen (Percocet 5/325 oral tablet) 1 to 2 tablets, Oral, every 6 hours as needed for Pain No more than 4,000mg acetaminophen/24hrs New Routed to Printer pantoprazole (Protonix 40 mg oral delayed release tablet) 1 Tablet(s), Oral, once a day traMADol (traMADol 50 mg oral tablet) 1-2 tab(s), Oral, two times a day as needed for Pain Stop Taking the Following Medications: Medication list as of 04-12-16 16:01 Attention: If you have any medications at home that are not on this list, DO NOT take them until youcontact your provider for clarification. Give a copy of your medication list to your primary care provider. Update your medication list any time medications or doses are changed and carry your medication list at all times in case of emergency. Comment: Electronically Signed By: Signed On: Source: [facility] POWERCHART Document Id: [id number] SUSTAINABILITY SPECIALIST Lakeisha Figueroa R.N. - 04/12/2016 3:54 PM CST Discharge Summary Discharge Summary Entered On: 04/12/2016 16:01 LEAD SUSTAINABILITY SPECIALIST Performed On: 04/12/2016 15:54 LEAD SUSTAINABILITY SPECIALIST by LAKEISHA FIGUEROA RN, DC Information Discharged to : Home with family care Current Home Treatments : None Home Equipment : None Professional Skilled Services : None Special Services and Community Resources : None Mode of Discharge : Ambulatory Discharge Transportation : Private vehicle Accompanied By : Nurse, Family Date/Time of Discharge : 04/12/2016 15:54 LEAD SUSTAINABILITY SPECIALIST LAKEISHA FIGUEROA RN - 04/12/2016 15:55 LEAD SUSTAINABILITY SPECIALIST Valuables/Belongings Valuables/Belongings Grid Valuables at Bedside Clothes, Patient Valuables : Jacket, Pants, Shirt, Shoes, Undergarments Electronic Devices : Cell phone Jewelry : None Monetary Items : Wallet Personal Devices : Glasses LAKEISHA FIGUEROA RN - 04/12/2016 15:55 LEAD SUSTAINABILITY SPECIALIST Room Orientation/Facility Policy Reviewed : Yes Belongings Sent Home With : pt and family Home Medication Disposition : None brought in with patient LAKEISHA FIGUEROA RN - 04/12/2016 15:55 LEAD SUSTAINABILITY SPECIALIST Source: [facility] POWERCHART Document Id: [id number] LEAD SUSTAINABILITY SPECIALIST!22 SUSTAINABILITY SPECIALIST documented in this encounter Medications at Time of Discharge Medication Sig Dispensed Refills Start Date End Date atorvastatin (for_LIPITOR) Take 1 tablet by 0 03/06/2017 20 mg tablet mouth at bedtime. metoprolol succinate Take 1 tablet by 0 05/12/2017 (for_TOPROL-XL) 25 mg 24 mouth daily. hr tablet documented as of this encounter Procedure Notes Rick Benitez RJefferson - 04/12/2016 10:34 AM CST Preprocedure Checklist Document Has Been Updated Preprocedure Checklist Entered On: 04/12/2016 10:39 LEAD SUSTAINABILITY SPECIALIST Performed On: 04/12/2016 10:34 LEAD SUSTAINABILITY SPECIALIST by RICK BENITEZ RN Checklist Last Fluid Intake : 04/11/2016 0:00 LEAD SUSTAINABILITY SPECIALIST Last Food Intake : 04/11/2016 22:00 LEAD SUSTAINABILITY SPECIALIST RICK BENITEZ RN - 04/12/2016 10:34 LEAD SUSTAINABILITY SPECIALIST Surgery Prep Grid Contacts/Glasses Removed : Yes Dentures Removed : Yes Hairpins/Hairpiecies Removed : Yes Hearing Aid Removed : Yes Home Prep Complete : Yes Jewelry/Piercing Removed : Yes Makeup/Nail Syrian Removed : Yes Oral Hygiene : Yes Preop Scrub AM of Surgery : Yes Preop Scrub Night Prior to Surgery : Yes Prosthesis Removed : Yes Tampon Removed : Yes Verified - No hair products used : Yes Voided [employer] dean to procedure : Yes Wearing Patient Gown : Yes RICK BENITEZ RN - 04/12/2016 10:34 LEAD SUSTAINABILITY SPECIALIST Patient Rights Grid Blood Consent Signed : Yes Surgical/Procedure Consent Signed : Yes RICK BENITEZ RN - 04/12/2016 10:34 LEAD SUSTAINABILITY SPECIALIST Family Location : [facility] [phone] Sukhwinder guerrero in waiting room RICK BENITEZ RN - 04/12/2016 10:34 LEAD SUSTAINABILITY SPECIALIST Checklist II Patient Safety Grid Allergy Band on and Verified : Yes Anesthesia Consult : Yes Band on for Limb Alert : Yes Blood Band on and Verified : Yes Current ECG in Medical Record : Yes Current H&P in Medical Record : Yes Implants Verified : Yes Medication Reconciliation on Chart : Yes Pacemaker/AICD Verified : Yes ID Band on and Verified : Yes Preop Medications Sent With Patient : Yes Relevant Images in Medical Record : Yes Review of Labs : Yes Procedure/Site Verified by Patient/Family : Yes Procedure/Site Verified by RN : Yes Procedure/Site Verified by Physician : Yes Type & Screen/Type & Cross Completed : Yes RICK BENITEZ RN - 04/12/2016 10:34 LEAD SUSTAINABILITY SPECIALIST RN Who Verified Site : RICK BENITEZ RN Physician Who Verified Site : LAKEISHA OLVERA MD, KARI J RN - 04/12/2016 10:34 LEAD SUSTAINABILITY SPECIALIST LITZY Screening Known Obstructive Sleep Apnea : No - NOT diagnosed with LITZY LITZY Score : No qualifying data available. LITZY Results : No qualifying data available. RICK BENITEZ RN - 04/12/2016 10:34 LEAD SUSTAINABILITY SPECIALIST LITZY Assessment Do you have high blood pressure or have you been told to take medication for high blood pressure? : Yes Frequency of Snoring HTN : Always (every night) Frequency of Gasping, Choking, Snorting HTN : Rarely (1-2 times per year) Total Number of Historical Features HTN : 1 Neck Circumference - LITZY - HTN 1 : Greater than 49 Total Sleep Apnea Clinical Score HTN 1 Calc : 66 RICK BENITEZ RN - 04/12/2016 10:34 LEAD SUSTAINABILITY SPECIALIST Valuables/Belongings Valuables/Belongings Grid Valuables at Bedside Clothes, Patient Valuables : Jacket, Pants, Shirt, Shoes, Undergarments Electronic Devices : Cell phone (Comment: with kids [RICK BENITEZ RN - 04/12/2016 10:34 LEAD SUSTAINABILITY SPECIALIST] ) Jewelry : None Monetary Items : Wallet (Comment: with kids [RICK BENITEZ RN - 04/12/2016 10:34 LEAD SUSTAINABILITY SPECIALIST] ) Personal Devices : Glasses RICK BENITEZ RN - 04/12/2016 10:34 LEAD SUSTAINABILITY SPECIALIST Room Orientation/Facility Policy Reviewed : Yes Home Medication Disposition : None brought in with patient RICK BENITEZ RN - 04/12/2016 10:34 LEAD SUSTAINABILITY SPECIALIST Advance Directive Advanced Directives : No Advance Directive Additional Information : Yes RICK BENITEZ RN - 04/12/2016 10:34 LEAD SUSTAINABILITY SPECIALIST Vital Signs Temperature Core : 36.7 DegC(Converted to: 98.1 DegF) Peripheral Pulse Rate : 93 /min Respiratory Rate : 20 /min Systolic Blood Pressure : 157 mmHg (HI) Diastolic Blood Pressure : 99 mmHg (>HHI) NIBP Mean : 118 mmHg BP Location : Left upper extremity SpO2 : 97 % Oxygen Therapy : Room air Height : 185 cm(Converted to: 6 ft 1 inch(es)) Actual Weight : 154.8 kg Actual Weight Conversion to Pounds : 340.56 lb Weight Source : Other: in clinic Body Mass Index : 45.23 kg/m2 RICK BENITEZ RN - 04/12/2016 10:34 LEAD SUSTAINABILITY SPECIALIST Allergy (As Of: 04/12/2016 10:39:58 LEAD SUSTAINABILITY SPECIALIST) Allergies (Active) NKA Estimated Onset Date: Unspecified ; Created By: WILMER GAONA LPN; Reaction Status: Active ; Category: Drug ; Substance: NKA ; Type: Allergy ; Updated By: WILMER GAONA LPN; Reviewed Date: 04/12/2016 10:39 LEAD SUSTAINABILITY SPECIALIST Source: [facility] POWERCHART Document Id: [id number] LEAD SUSTAINABILITY SPECIALIST!84 SUSTAINABILITY SPECIALIST documented in this encounter Nursing Notes Lakeisha Figueroa R.N. - 04/12/2016 3:54 PM CST PRN Response PRN Response Entered On: 04/12/2016 15:54 LEAD SUSTAINABILITY SPECIALIST Performed On: 04/12/2016 15:54 LEAD SUSTAINABILITY SPECIALIST by LAKEISHA FIGUEROA RN Intervention Information: oxycodone-acetaminophen Performed by LAKEISHA FIGUEROA RN on 04/12/2016 14:59:51 LEAD SUSTAINABILITY SPECIALIST oxyCODONE-acetaminophen,1tab(s) PO,Pain PRN Medication Effectiveness Evaluation PRN Medication Effective : Yes Post Medication Pain Assessment : 2 LAKEISHA FIUGEROA RN - 04/12/2016 15:54 LEAD SUSTAINABILITY SPECIALIST Source: [facility] [employer] Document Id: [id number] LEAD SUSTAINABILITY SPECIALIST!4 SUSTAINABILITY SPECIALIST Lakeisha Figueroa R.N. - 04/12/2016 3:54 PM CST PRN Response PRN Response Entered On: 04/12/2016 15:54 LEAD SUSTAINABILITY SPECIALIST Performed On: 04/12/2016 15:54 LEAD SUSTAINABILITY SPECIALIST by LAKEISHA FIGUEROA RN Intervention Information: hydromorphone Performed by LAKEISHA FIGUEROA RN on 04/12/2016 15:17:07 LEAD SUSTAINABILITY SPECIALIST HYDROmorphone,0.2mg IV Push,Hand Left,Pain PRN Medication Effectiveness Evaluation PRN Medication Effective : Yes Post Medication Pain Assessment : 2 LAKEISHA FIGUEROA RN - 04/12/2016 15:54 LEAD SUSTAINABILITY SPECIALIST Source: [facility] [employer]ART Document Id: [id number] LEAD SUSTAINABILITY SPECIALIST!4 SUSTAINABILITY SPECIALIST Lakeisha Figueroa R.N. - 04/12/2016 3:54 PM CST PRN Response PRN Response Entered On: 04/12/2016 15:54 LEAD SUSTAINABILITY SPECIALIST Performed On: 04/12/2016 15:54 LEAD SUSTAINABILITY SPECIALIST by LAKEISHA FIGUEROA RN Intervention Information: hydromorphone Performed by LAKEISHA FIGUEROA RN on 04/12/2016 15:06:52 LEAD SUSTAINABILITY SPECIALIST HYDROmorphone,0.1mg IV Push,Hand Left,Pain PRN Medication Effectiveness Evaluation PRN Medication Effective : Yes Post Medication Pain Assessment : 2 LAKEISHA FIGUEROA RN - 04/12/2016 15:54 LEAD SUSTAINABILITY SPECIALIST Source: [facility] POWERCHART Document Id: [id number] LEAD SUSTAINABILITY SPECIALIST!4 SUSTAINABILITY SPECIALIST Lakeisha Figueroa R.N. - 04/12/2016 3:54 PM CST PRN Response PRN Response Entered On: 04/12/2016 15:54 LEAD SUSTAINABILITY SPECIALIST Performed On: 04/12/2016 15:54 LEAD SUSTAINABILITY SPECIALIST by LAKEISHA FIGUEROA RN Intervention Information: hydromorphone Performed by LAKEISHA FIGUEROA RN on 04/12/2016 15:01:00 LEAD SUSTAINABILITY SPECIALIST HYDROmorphone,0.2mg IV Push,Hand Left,Pain PRN Medication Effectiveness Evaluation PRN Medication Effective : Yes Post Medication Pain Assessment : 2 LAKEISHA FIGUEROA RN - 04/12/2016 15:54 LEAD SUSTAINABILITY SPECIALIST Source: [employer] Document Id: [id number] LEAD SUSTAINABILITY SPECIALIST!4 SUSTAINABILITY SPECIALIST Lakeisha Figueroa R.N. - 04/12/2016 3:54 PM CST PRN Response PRN Response Entered On: 04/12/2016 15:54 LEAD SUSTAINABILITY SPECIALIST Performed On: 04/12/2016 15:54 LEAD SUSTAINABILITY SPECIALIST by LAKEISHA FIGUEROA RN Intervention Information: oxycodone-acetaminophen Performed by LAKEISHA FIGUEROA RN on 04/12/2016 14:28:42 LEAD SUSTAINABILITY SPECIALIST oxyCODONE-acetaminophen,1tab(s) PO,Pain PRN Medication Effectiveness Evaluation PRN Medication Effective : Yes Post Medication Pain Assessment : 2 LAKEISHA FIGUEROA RN - 04/12/2016 15:54 LEAD SUSTAINABILITY SPECIALIST Source: [employer] Document Id: [id number] LEAD SUSTAINABILITY SPECIALIST!4 SUSTAINABILITY SPECIALIST Lakeisha Figueroa R.N. - 04/12/2016 3:54 PM CST PRN Response PRN Response Entered On: 04/12/2016 15:54 LEAD SUSTAINABILITY SPECIALIST Performed On: 04/12/2016 15:54 LEAD SUSTAINABILITY SPECIALIST by LAKEISHA FIGUEROA RN Intervention Information: hydromorphone Performed by LAKEISHA FIGUEROA RN on 04/12/2016 14:52:00 LEAD SUSTAINABILITY SPECIALIST HYDROmorphone,0.2mg IV Push,Hand Left,Pain PRN Medication Effectiveness Evaluation PRN Medication Effective : Yes Post Medication Pain Assessment : 2 LAKEISHA FIGUEROA RN - 04/12/2016 15:54 LEAD SUSTAINABILITY SPECIALIST Source: [facility] POWERCHART Document Id: [id number] LEAD SUSTAINABILITY SPECIALIST!4 SUSTAINABILITY SPECIALIST Rick Benitez R.N. - 04/12/2016 10:30 AM CST Day Surgery Admission History/Asmt Adult Document Has Been Updated Day Surgery Admission History/Asmt Adult Entered On: 04/12/2016 10:34 LEAD SUSTAINABILITY SPECIALIST Performed On: 04/12/2016 10:30 LEAD SUSTAINABILITY SPECIALIST by RICK BENITEZ RN General Info Preferred Name : Twin Admitted From : Non-Health Care Facility Point of Origin Present in Room During Exam/Procedure : Daughter, Son Chief Complaint : umbilical hernia since october Preferred Communication Mode : Verbal Information Given By : Patient Languages : Macanese Is Patient Female and 13-50 no hysterectomy : No RICK BENITEZ RN - 04/12/2016 10:30 LEAD SUSTAINABILITY SPECIALIST Allergy (As Of: 04/12/2016 10:34:19 LEAD SUSTAINABILITY SPECIALIST) Allergies (Active) NKA Estimated Onset Date: Unspecified ; Created By: WILMER GAONA LPN; Reaction Status: Active ; Category: Drug ; Substance: NKA ; Type: Allergy ; Updated By: WILMER GAONA LPN; Reviewed Date: 04/12/2016 10:31 LEAD SUSTAINABILITY SPECIALIST Nutrition Have you recently lost weight without trying? : No Decreased Appetite Nutrition : No Tube Feedings or Parenteral Nutrition : No MST Score : 0 RICK BENITEZ RN - 04/12/2016 10:30 LEAD SUSTAINABILITY SPECIALIST Home Environment Current Daily Living Assistance : None RICK BENITEZ RN - 04/12/2016 10:30 LEAD SUSTAINABILITY SPECIALIST Dependent Habits Exposure to Tobacco Smoke : Other: former smoker Smoking Status : Former smoker Tobacco 2A : Yes Tobacco Use/Currently Using : No Tobacco Use/Last 30 Days : No Tobacco Use/Last 12 months : No RICK BENITEZ RN - 04/12/2016 10:30 LEAD SUSTAINABILITY SPECIALIST Psychosocial Adult Domestic Abuse Concerns : None Behavioral Health Screen/Safety Assmt : No Anabaptism Preference : No qualifying data available. RICK BENITEZ RN - 04/12/2016 10:30 LEAD SUSTAINABILITY SPECIALIST Advance Directive Advanced Directives : No Advance Directive Additional Information : Yes RICK BENITEZ RN - 04/12/2016 10:30 LEAD SUSTAINABILITY SPECIALIST Educ Needs Patient/Family Education Needs : Activity limitations/expectations, Nutrition/Diet, Pain management,Postoperative instructions, Preoperative instructions, Safety, fall, Surgery, Treatments/Procedures/Tests RICK BENITEZ RN - 04/12/2016 10:30 LEAD SUSTAINABILITY SPECIALIST Learning Style Preference Adult Grid Patient : Printed materials, Verbal explanation Family : Printed materials, Verbal explanation RICK BENITEZ RN - 04/12/2016 10:30 LEAD SUSTAINABILITY SPECIALIST Psycho/Emotional Affect/Behavior : Calm, Cooperative Pain Symptoms : No RICK BENITEZ RN - 04/12/2016 10:30 LEAD SUSTAINABILITY SPECIALIST Source: [facility] [employer] Document Id: [id number] LEAD SUSTAINABILITY SPECIALIST!39 SUSTAINABILITY SPECIALIST Lakeisha Figueroa R.N. - 04/04/2016 10:56 AM CST Pre-op Pre-op teaching and checklist reviewed with patient over the phone. All questions answered. Electronically Signed By: LAKEISHA FIGUEROA RN On: 04/04/2016 10:57 AM [facility] Document Id: [id number] SUSTAINABILITY SPECIALIST documented in this encounter OR Notes Op Note - Conversion, Historical Provider Ser - 04/12/2016 4:05 PM CST [employer] CASE RECORD UPLOAD DATA PATIENT: SAAD MURRAY SURGERY DATE: 04/12/2016 UNIT #: [id number] ROOM: [address] NBR: [id number] STATUS: In Process DATE: 1965 SIGN. STATUS: Unsigned Surgeon Assistants Procedure(s) Lakeisha Olvera Umbilical Hernia Repair A dult SECTION NAME : 1/IntraOp Case Record -- PAGE : [id number] PreOperative Assessment Notes: Comments: Patient Identification: CHART Chart Date of HERMILOBAND Leobardo Band PATIENT Patient VERBAL Verbal Procedure / Site Verification: CONSENT Consent form corresponds to plan JH Site Marked STATE Patient/Parent states procedure TOUCH Patient/Parent touches site Mental/Emotional Status: ALERT Alert SECTION NAME : 1/IntraOp Case Record -- PAGE : OR01B PreOperative Assessment Chart Reviewed: HP History and Physical LAB Lab Reports MEDS Medications Reviewed OR CKLST OR Check List complete SURG Previous Surgery Comment: Notes: SECTION NAME : 1/IntraOp Case Record -- PAGE : OR02A NPO NPO After Midnight?: Y If No, NPO Since: Latex Allergy: NO SECTION NAME : 1/IntraOp Case Record -- PAGE : OR02B Anesthesia Staff Anesthesiologist: JUNE: Penelope Conde TANK OPERATOR SECTION NAME : 1/IntraOp Case Record -- PAGE : OR02C Anesthesia Primary Anes: NELIA Messina Anes: Comments: Regional Anesthetic Only: SECTION NAME : 1/IntraOp Case Record -- PAGE : OR03A Times In OR Time: 1206 Surgery Start Time: 1225 Surgery End Time: 1339 Out of OR Time: 1344 Anesthesia Start Time: Anesthesia End Time: Cecum Time: SECTION NAME : 1/IntraOp Case Record -- PAGE : OR03B Classifications Classification of Surgical Wound: Y Wound Class: CL Clean ASA Class: 2 CLASS Stable mild to moderate systemic condition Case Class: 0ELEC Elective Case Classified By: JUNE Anesthestist Mallampati Class: Patient Transported to OR Via: CART Cart with Side Rails Up X2 Patient Transported to OR by: JUNE RIVERA SECTION NAME : 1/IntraOp Case Record -- PAGE : OR03C Allergy Any Known Drug Allergies?: N Patient Drug Allergies: SECTION NAME : 1/IntraOp Case Record -- PAGE : OR04A PreOperative Assessment Blood (type and screen): NO Creutzfeldt-Chriss Disease Screening: NA Pre Existing Interventions: IV IV OTHER Other Comment: BILATERAL KNEE HIGH SCD'S ON AND WORKING Notes: SECTION NAME : 1/IntraOp Case Record -- PAGE : OR04B PreOperative Assessment Personal Items: NONE None Comment: SECTION NAME : 1/IntraOp Case Record -- PAGE : OR04C PreOperative Assessment Note Patient Sensory Limitations: Y Patient Limitations: NONE None Comment: PreOp Diagnosis: UMBILICAL HERNIA SECTION NAME : 1/IntraOp Case Record -- PAGE : OR05 Procedure Time Out TIME OUT: DO NOT PROCEED UNTIL ANY INCONSISTENCIES ARE RESOLVED TIME OUT takes place in the OR room, after the patient is prepped and draped and it involves the ENTIRE TEAM. All team members must verbally agree on: 1. PATIENT NAME AND DATE OF 2. NAME OF PHYSICIAN, PROCEDURE, AND CORRECT SIDE / SITE 3. CORRECT PATIENT NAME ON ANY RADIOGRAPH PRESENT 4. SPECIAL EQUIPMENT AND IMPLANTS ARE AVAILABLE AND PRESENT 5. THE PATIENT IS IN THE CORRECT POSITION FOR THE PROCEDURE 6. APPROPRIATE ANTIOBIOTIC HAS BEEN GIVEN TIME and INITIALS verify that TIME OUT has occured Time Out for Procedure Verification: 122 Surgery Start Time: 122 OR Nurse Initials: KYLEE Notes: BRIEFING DONE PRIOR TO START OF CASE-ALLSTAFF PARTICIPATED SECTION NAME : 1/Intra Case Record -- PAGE : OR06A Case Personnel Basket Assembler: Lakeisha Lang RN, Dana RN Relief Basket Assembler: SECTION NAME : 1/Intra Case Record -- PAGE : OR06B Case Personnel OR Tech: Relief OR Tech: SECTION NAME : 1/IntraOp Case Record -- PAGE : ELOY Case Skiver Hand: La Assist: SECTION NAME : 1/IntraOp Case Record -- PAGE : MAREK Case Personnel Other Name: Other Role: Notes: Dayday BA RN PRODUCTION SUPPORT DEVELOPER SECTION NAME : 1/IntraOp Case Record -- PAGE : ORDennisA Positioning Apply Safety Devices: Y Safety Strap Applied to: ACROSS BILATERAL ARMS AND THIGHS Skin Risk Factors OBES Obesity Comment: SECTION NAME : 1/IntraOp Case Record -- PAGE : ORMehdi Positioning Evaluate PreOp Skin: YES PreOp Skin Assessment: UNREMARKABLE Positioning Devices: ADJARM Adjustable Arm Board PIL pillow Comment: BILATERAL ARMS UNDER HEAD SECTION NAME : 1/IntraOp Case Record -- PAGE : CHENTE Positioning Positioning Protection: GEL Gel Pads Comment: Notes: SECTION NAME : 1/IntraOp Case Record -- PAGE : ORNiltonA Positioning Position for Surgery: SUP Supine Comment: Positioned By: JUNE Certified Registered Nurse Typing Section Chief RN Registered Nurse Comment: SECTION NAME : 1/IntraOp Case Record -- PAGE : ORNiltonB Positioning Arm Position During Surgery: BILBOARD Bilateral Arms on Armboard, extended <90 degrees Comment: Notes: SECTION NAME : 1/IntraOp Case Record -- PAGE : OR08C Prep Skin Prep: Y Prep Solution: CHLORPREP* Chloraprep *Length of Alcohol Prep Dry Time (3 min minimum): 3 Comment: SECTION NAME : 1/IntraOp Case Record -- PAGE : OR09A Prep Skin Condition at Op Site: INTACT Intact Comment: SECTION NAME : 1/IntraOp Case Record -- PAGE : OR09B Prep Surgical Clippers: Y By: NICOLE Area: ABDOMEN SECTION NAME : 1/IntraOp Case Record -- PAGE : OR09C Moderate Sedation 1 Clinical Alarms On? O2 Therapy: L/Min: IV Fluid: TOTAL ML: Notes: Notes: SECTION NAME : 1/IntraOp Case Record -- PAGE : OR09E Post Procedure Assess 1 Post Procedure Assessment / Monitoring: Motor Activity: 2 - Active motion, voluntary or on command 1 - Weak motion, voluntary or on command 0 - No motion 0: 5: 10: 15: Out: Respiration: 2 - Cough on command or cries 1 - Maintains airway without support 0 - Requires airway maintenance 0: 5: 10: 15: Out: Systolic Blood Pressure: 2 - Within 20 mmHg of pre-sedation level 1 - Within 20-50 mmHg of pre-sedation level 0 - Within > 50 mmHg of pre-sedation level 0: 5: 10: 15: Out: SECTION NAME : 1/Intra Case Record -- PAGE : OR09F Post Procedure Assess 2 Consciousness: 2 - Fully awake or easily aroused 1 - Responds to stimuli, protective reflexes intact 0 - No response or no protective reflexes 0: 5: 10: 15: Out: Oxygen Saturation: 2 - Able to maintain saturation greater than 92% on room air 1 - Needs O2 to maintain saturation greater than 90% 0 - O2 saturation less than 90% even with O2 0: 5: 10: 15: Out: Total Post: Patient may be discharged when the score is 8-10, with no 0 (zero) in any category Flatuence Ground pad clear post procedure: EBL (ml): 20ml SECTION NAME : 1/[facility] Case Record -- PAGE : OR10A Specimen Manage specimen handling and disposition: Y Specimen: Y Specimen Sent To: PATH Pathology Specimen Description: hernia sac Notes: SECTION NAME : 1/[facility] Case Record -- PAGE : OR10B Culture Culture: N Culture Site: Culture Type: SECTION NAME : 1/[facility] Case Record -- PAGE : OR11A Meds Time: Med/Irrigant/Hemostasis: Dosage: Route: VO / RBO / Given B y: NACL Sodium Chloride 0.9% 1000ML SENS5E Sensorcaine(Marcaine, Bupivacai 10ml ne)0.5%w/Epi ANCEF Ancef 1GRAM LIDO1 Lidocaine 1% 2ml Medications On/Off Field Labeled: YES Notes: 1 GRAM ANCEF MIXED WITH 10 ML NACL AND STERILE POUR ON BACK TABLE AND USED TO SO AK MESH IN SECTION NAME : 1/Intra Case Record -- PAGE : OR11A1 Meds2 Time: VO / RBO / Given By: SECTION NAME : 1/IntraOp Case Record -- PAGE : OR11B XRay X-Rays Taken: N X-Ray Type: Indication for X-Ray: Patient Shield: Other Indication for X-Ray: SECTION NAME : 1/IntraOp Case Record -- PAGE : OR12A Cautery Grounding Pad Applied: Y Cautery Pad Placement: LTHIGH Left Thigh If Other, detail: [facility] Number: [id number] Cut: 30 Coagulation: 30 Blend: Bipolar: SECTION NAME : 1/IntraOp Case Record -- PAGE : OR12B Special Equipment Special Equipment Used: KAREN Castellanos Comment: JOSE DENOTN, ESTEVAN3 Notes: Thermal Unit: Temperature: Y ANES Per Anesthesia SECTION NAME : 1/IntraOp Case Record -- PAGE : OR12B Tourniquet 2 Tourniquet #2 Site: NONE None Pressure (mm Hg): Tourniquet Letter: Tourniquet Padded: Tourniquet Applied By: Patient Blood Pressure: #2 Inflated: #2 Deflated: Notify Surgeon After 60 Minutes-Time: After 1 Hour, Notify Surgeon Every 30 Min-Time: SECTION NAME : 1/Intra Case Record -- PAGE : OR13A Tourniquet 1 Tourniqet #1 Site NONE None Pressure (mm Hg): Tourniquet Letter: Tourniquet Applied By: Patient Blood Pressure: #1 Inflated: #1 Deflated: Notify Surgeon After 60 Minutes-Time: After 1 Hour, Notify Surgeon Every 30 Min- Time: Notes: SECTION NAME : 1/IntraOp Case Record -- PAGE : OR14A Drains Tube /Drain/ Catheter: Size: Location: N N Inserted By (if applicable): OR Drainage Detail: Notes: SECTION NAME : 1/IntraOp Case Record -- PAGE : OR14B Packing Packing: NONE None Site: SECTION NAME : 1/IntraOp Case Record -- PAGE : OR15A Closing PreOp Diagnosis: UMBILICAL HERNIA Post Op Diagnosis: Same Operation: UMBILICAL HERNIA REPAIR WITH MESH Notes: SECTION NAME : 1/IntraOp Case Record -- PAGE : OR15B Dressing Evaluate PostOp Skin: Y Post Op Skin Condition: Intact Dressing: DERM Dermabond Comment: SECTION NAME : 1/IntraOp Case Record -- PAGE : OR16A Count Perform required counts: Y Initial Count Completed Prior to Patient in OR: Y White Board Used to Document Counts: Y Surgicount Used: YES Yes Surgeon Notified of Counts: Y If Counts Unresolved, X-Ray Taken: NA EBL (ml): 20ml Inst intact @ closing to best of our knowledge: Y Yes Notes: CONDITION AT DISCHARGE-STABLE COMPLICATIONS-NONE DEBRIEFING DONE AT THE END OF T HE CASE- ALL STAFF PARTICIPATED SECTION NAME : 1/IntraOp Case Record -- PAGE : OR16B Sponge Count Count Description: INITIAL Initial Count END End of Procedure Sponge: Y Y SECTION NAME : 1/IntraOp Case Record -- PAGE : OR16C Sharp Count Count Description: INITIAL Initial Count END End of Procedure Sharps: Y Y SECTION NAME : 1/IntraOp Case Record -- PAGE : OR16D Instrument Count Count Description: INITIAL Initial Count END End of Procedure Instruments: Y Y SECTION NAME : 1/IntraOp Case Record -- PAGE : OR16E Patient Discharged To Transport Via: CART Cart with Side Rails Up X2 OR Pt Discharge To: PACU Post Anesthia Care Unit Room: : Time: SECTION NAME : 1/Intra Case Record -- PAGE : OR17 Family Notification Provide Status Reports to Family/Support Person: N/A Notification Time: Notes: SECTION NAME : 1/Intra Case Record -- PAGE : OR18A New Laser Form 8.15.12 Initials verify that LASER SAFETY CHECKLIST was reviewed and is complete OR Nurse Initials Laser Type: Hertz Setting: Joules Setting: Pozo: Total Pulses: Total Joules: Total Pozo: Total Laser Time: Laser Type 2: Hertz Setting 2: Joules Setting 2: Pozo 2: Total Pulses 2: Total Joules 2: Total Laser Time 2: SECTION NAME : 1/IntraOp Case Record -- PAGE : OR19A Blood Pressure Time: BP Systolic BP Diastolic NA NA Is This Case Local? N Notes: SECTION NAME : 1/IntraOp Case Record -- PAGE : OR19B Respiratory_Heart Rate Time: RR: HR: NA NA SECTION NAME : 1/IntraOp Case Record -- PAGE : OR19C Temp_O2Sat Time: Temp: O2sat: NA NA SECTION NAME : 1/IntraOp Case Record -- PAGE : OR19D LOC Time: LOC: SECTION NAME : 1/IntraOp Case Record -- PAGE : OR19D Pain Time: Pain (0-10): SECTION NAME : 1/IntraOp Case Record -- PAGE : OR20 Implants # Qty: Reference Number: [id number] PATCH HERNIA SM # Qty: Consignment Implant Description/Size # Lot #: Serial #: Reference # Location: 1 [id number] UMBILICAL HERNIA # Optometric Aide: Date: Wasted: 1 BARD Hoover 11/25/2017 Notes: SECTION NAME : 1/IntraOp Case Record -- PAGE : OR22A Tissue Log A Blood Bank Specialist From Lab to OR: Tissue Description Tissue Disposition: NONE None Time Implanted: Tissue Type: SECTION NAME : 1/IntraOp Case Record -- PAGE : OR22B Tissue Log B Tissue Package Condition: Package Opened By: Tissue Prepared By: Tissue Prepared According to Package Insert?: Implant Card Completed and Mailed?: SECTION NAME : 1/IntraOp Case Record -- PAGE : OR22C Tissue Log C Rehydrating Solution: Thawing Solution: Time in Solution: Solution Temp Celsius: Duration in Solution: SECTION NAME : 1/IntraOp Case Record -- PAGE : OR21 CSection C Section Called: Heart Tones Prior to Surgery: Uterine Scoring: Delivery Time: Sex: Delivery Assistance: Notes: [facility] Document Id: [id number] Op Note - Penelope Light TANK OPERATOR - 04/12/2016 1:50 PM CST ANES, PACU POSTANESTHESIA ASSESMENT T, P, RR, and SpO2 VITAL SIGNS Temperature Core: 36.6 Peripheral Pulse Rate: 94 Respiratory Rate: 14 SpO2: 96 2lpm NC BP BLOOD PRESSURE Systolic Blood Pressure: 139 Diastolic Blood Pressure: 99 Cardiovascular Status [X] Hemodynamics (HR and BP) acceptable [_] Hemodynamics (HR and BP) unacceptable requiring ongoing treatment Respiratory Support [X] Patent airway with unassisted ventilation [_] Patent airway with the need for PAP therapy (CPAP, BPAP) [_] Mechanically ventilated Oxygen Requirements [_] Room air [X] Nasal cannula - 2 lpm [_] Closed face mask [_] Assisted ventilation (noninvasive or mechanical) with supplemental oxygen [_] Other: _ Level of Consciousness [X] Awake [_] Sedated, but awakens easily [_] Sedated, difficult to awake, patient unable to participate in evaluation [_] Unconscious, patient unable to participate in evaluation Temperature [X] Normothermic [_] Hypo or hyperthermic requiring ongoing treatment Pain [X] Adequately controlled and/or at baseline [_] Requiring further management [_] Unable to be assessed Nausea/Vomiting [X] No [_] Yes, treated as necessary Intravascular Volume Status [X] Euvolemic [_] Hypo or hypervolemic requiring ongoing treatment Anesthesia Observations [X] None apparent [_] Refractory nausea and vomiting [_] Dental/Oral injury [_] Eye injury [_] New or changed neurologic deficit [_] Other (Document in comments) Disposition [_] General care unit [_] Monitored care unit (ICU, PCU, ED, etc.), expectation for recovery time deferred to receiving unit [X] Discharged home [_] Other: _ Comments Plan routine post op coarse Electronically Signed By: PENELOPE LIGHT CRNA On: 04/12/2016 01:52 PM Source: [facility] POWERCHART Document Id: [id number] SUSTAINABILITY SPECIALIST Op Note - Penelope Light CRNA - 04/12/2016 11:08 AM CST ANES, Preanesthesia Evaluation Document Contains Addenda Addendum by PENELOPE LIGHT CRNA on April 12, 2016 11:56 LEAD SUSTAINABILITY SPECIALIST STATUS [X] FINALIZED [_] PROCEDURE CANCELLED PROCEDURE DATE 04/12/2016 ASA PHYSICAL STATUS * 2 ANESTHETIC / SEDATION PLAN * [X] General Anesthesia [_] Combined General / Regional Anesthesia [_] Regional Anesthesia [_] Monitored Anesthesia Care [_] Sedation Care - RN COMMENTS GlideScope IDENTIFICATION [X] Patient identified * [X] Procedure Verified * [X] Site Verified * NPO STATUS [X] NPO Verified PHYSICAL ASSESSMENT VITAL SIGNS Temperature Core: 36.7 Peripheral Pulse Rate: 93 Respiratory Rate: 20 SpO2: 97 BLOOD PRESSURE Systolic Blood Pressure: 157 High Diastolic Blood Pressure: 99 Critical Airway * Thyromental Distance: 3-4 Neck ROM: Full Jaw Opening: Adequate Mallampati Classification: 3 Dentition: Intact Cardiovascular * S1, S2, No murmur, rubs or gallops Pulmonary * Clear Bilaterally Other _ LABS WITHIN 72 HOURS No qualifying data available. No qualifying data available. ADDITIONAL FINDINGS OR HISTORY _ HISTORY AND PHYSICAL UPDATE [X] Assessment of patient history, patient exam, medications, allergies and previous anesthetic history reviewed on this date. * [X] Patient was seen, evaluated and approved for anesthesia / sedation. * Select one of the following: * [X] Discussed risks / benefits / alternatives of anesthesia / sedation and obtained informed consent. [_] Emergency exception: consent implied due to medical emergency and inability to obtain timely consent from the patient or an alternative decision maker Modified by and Electronically Signed by: PENELOPE LIGHT CRNA On: 04/12/2016 11:56 AM PREANESTHESIA EVALUATION PROCEDURE INFORMATION Proceduralist Dr. Olvera Pre-Procedure Indication Hernia Procedure Planned Umbilical Hernia Repair with Mesh Anesthesia Planned GA - ETT HEIGHT AND WEIGHT MEASUREMENTS Height: 185 Actual Weight: 154.8 Body Mass Index: 45.23 ALLERGY LIST NKA PROBLEM LIST Body mass index (BMI) 45.0-49.9, adult GERD [Gastroesophageal reflux disease] HTN [Hypertension] Hyperglycemia Hyperlipidemia NOS OUTPATIENT MEDICATION LIST Medication List Active Medications Ordered ceFAZolin: 3 gm, 100 mL, 400 mL/hr, IVPB, PREOP. Prescribed atorvastatin: 20 mg, 1 tab(s), PO, Bedtime, 30 tab(s), 11 Refill(s). lisinopril-hydroCHLOROthiazide: 1 tab(s), PO, Daily, 30 tab(s), 5 Refill(s). metoprolol: 25 mg, 1 tab(s), PO, Daily, Take as needed for palpitations or if BP is higher than 140/90, 30 tab(s), 11 Refill(s). pantoprazole: 40 mg, 1 tab(s), PO, Daily, for 90 day(s), 90 tab(s), 1 Refill(s). traMADol: 1-2 tab(s), PO, 2xDay, PRN: Pain, 60 tab(s), 0 Refill(s). Medications Inactivated in the Last 72 Hours traMADol: 1-2 tab(s), PO, 2xDay, PRN: Pain, 60 tab(s), 0 Refill(s). PROCEDURE LIST Echocardiogram: 01/27/07 Vasectomy: 03/05/05 LAB AND DIAGNOSTICS (selected) CBC WBC: 8.9 03/15/16 RBC: 4.99 03/15/16 Hgb: 15.0 03/15/16 Hct: 45.8 03/15/16 Platelet: 265 03/15/16 BMP Sodium Lvl: 135 03/15/16 Potassium Lvl: 4.4 03/15/16 Chloride: 95 Low 03/15/16 CO2: 29 03/15/16 Glucose Fastin High 03/15/16 Creatinine: 0.8 03/15/16 Calcium Lvl: 9.9 03/15/16 BUN: 15 03/15/16 EGFR (MDRD): >60.0 03/15/16 EGFR (MDRD): >60.0 03/15/16 AGAP: 11 03/15/16 LFT Albumin Lvl: 4.5 03/15/16 Protein Total: 7.1 03/15/16 AST: 27 03/15/16 ALT: 40 03/15/16 Alkaline Phosphatase: 77 03/15/16 Bili Total: 0.7 03/15/16 INR No qualifying data available. HgbA1c No qualifying data available. Thyroid TSH: 1.68 02/17/15 ECG _ Other _ DATE OF HISTORY AND PHYSICAL EXAM 03/05/2016 CURRENT / PAST MEDICAL AND SURGICAL HISTORY [X] Within Normal Limits Unless Otherwise Specified Cardiovascular [_] Functional Capacity less than 4 METS [_] Symptoms on Exertion [X] Hypertension [X] Hyperlipidemia/Dyslipidemia [_] Coronary Artery Disease [_] History of Myocardial Infarction [_] Peripheral Vascular Disease Respiratory / Pulmonary [X] Nicotine/Tobacco use - former [_] Asthma [_] Chronic Obstructive Lung Disease [X] Obstructive Sleep Apnea - Probable Renal / Urinary and Reproductive [_] Chronic or Acute Kidney Disease Endocrine [_] Diabetes [_] Hypothyroidism [X] Morbid Obesity Neurologic [_] Cerebrovascular Disease [_] History of Stroke [_] History of Seizure [_] Parkinsons Disease Psychiatric / Social [_] Alcohol/Other Substance Abuse [_] Depression/Anxiety Musculoskeletal [_] Degenerative Joint Disease/Osteoarthritis Gastrointestinal / Hepatobiliary [X] Gastroesophageal Reflux Disease Hematology [_] Anemia [_] Increased Risk of Hemorrhage Obstetric / Gynecologic _ ENT [_] History of airway surgery Infectious Disease [_] MRSA Anesthesia [_] Malignant Hyperthermia [_] Pseudocholinesterase Deficiency [_] History of Difficult Airway [_] History of PONV Other _ Electronically Signed By: PENELOPE LIGHT CRNA On: 04/12/2016 11:10 AM Source: [employer] Document Id: [id number] SUSTAINABILITY SPECIALIST Op Note - Lakeisha Olvera M.D. - 04/12/2016 12:00 AM CST HOPRER8 DATE: 04/12/2016 PREOPERATIVE DIAGNOSIS: Umbilical hernia. POSTOPERATIVE DIAGNOSES: 1. Umbilical hernia 2. Adjacent, very small hernia defect, which was slightly above and just a little bit to the right of the original defect. SURGEON: Lakeisha Olvera M.D. SOUND PRINTER: OPERATION: Repair of umbilical hernia and secondary small defect with the 1.7 inch Ventralex mesh placed intra-abdominally under the peritoneum. COMPLICATIONS: None. ESTIMATED BLOOD LOSS: 20 mL. PROCEDURE IN DETAIL: Patient was taken to the operating room and, in a supine position, was given general endotracheal anesthesia. He was then prepped and draped in the usual manner for an umbilical hernia repair. Curvilinear incision was made just below the umbilicus, carried down to the subcutaneous tissue, to the fascia level. The hernia sac was opened, from the fascia, and actually resected at the fascial level using electrocautery. We had to open the defect slightly. It was close to a 2 cm defectthat opened to a 2 cm defect. We placed some [employer] [place] clamps in the abdomen, lifting up the abdominal wall, and then placement of the 1.7 and Ventralex mesh intra-abdominally. With 2 Marlex extensions, we pulled the mesh up to the anterior abdominal wall, removing the retractors. We then closed the hernia defect in a transverse direction, patching the anterior pocket as well as the 2 Marlex extensions in our closure of the hernia defect using 0 Nurolon sutures. These were placed in interrupted fashion. Before we closed the defect; however, we cleaned off the anterior fascia superiorly and inferiorly and we cleaned it off. Superiorly, right at the edge of the umbilical hernia defect, at about 0.75 to 1 cm superior, was a secondary 3 to 4 mm defect. This had a small amount of,what appeared to be, preperitoneal fat coming through the defect. We resected this and when we closed the hernia defect transversely, we did include that fascial defect in our lateral suturing on the right side to close that defect. I feel that the Ventralex mesh did cover this area also. We then cut the Marlex extensions off to about an inch in length and then we tacked them down with a couple of Nurolon sutures both superiorly and inferiorly to the transverse hernia closure. We then irrigated the wound with antibiotic-containing saline. We placed 10 mL of 0.5% Marcaine withepinephrine in subcutaneous tissue, then brought the umbilicus down to the fascial level with a figure of eight 3-0 Vicryl. We closed the subcutaneous tissue with a running 3-0 Vicryl, and then the skin was closed with a 4-0 Vicryl as a subcuticular stitch. Dermabond was applied to the incision and a compressive dressing. The patient was then taken back to the recovery area in stable condition. No complications. Lakeisha Olvera M.D./pos Electronically Signed By: LAKEISHA OLVERA MD On: 04/18/2016 06:13 PM Source: [facility] MHSDOLBEYNONRADSYS Document Id: [id number] SUSTAINABILITY SPECIALIST documented in this encounter Miscellaneous Notes Miscellaneous - Conversion, Historical Provider Ser - 04/12/2016 3:54 PM LEAD SUSTAINABILITY SPECIALIST Coding Summary-Paper Based CODING DATE: 04/16/2016 FINAL [facility] STATUS: * Discharged to Home or Self Care PAYOR: [facility] APC DESCRIPTION 5341 Peritoneal and Abdominal Procedures ADMIT DX: REASON FOR VISIT DX: FINAL DX: PRINCIPAL: K42.9 Umbilical hernia without obstruction or gangrene SECONDARY: I10 Essential (primary) hypertension K21.9 Gastro-esophageal reflux disease without esophagitis E78.5 Hyperlipidemia, unspecified G47.33 Obstructive sleep apnea (adult) (pediatric) E66.01 Morbid (severe) obesity due to excess calories Z68.42 Body mass index (BMI) 45.0-49.9, adult PYMT PROC APC STAT DESCRIPTION DOCTOR NAME DATE 73168 5341 T RPR UMBILICAL HRNA 5 LAKEISHA OLVERA MD 04/12/2016 YRS/> REDUCIBLE NOTE: The code number assigned matches the documented diagnosis and / or procedure in the patient's chart. However, the narrative phrase printed from the coding software may appear abbreviated, or result in slightly different terminology. Revised Coded By: MARY SCHMITZ Revised Date Saved: 04/15/2016 10:47 am Source: [facility] POWERCHART Document Id: [id number] Miscellaneous - Lakeisha Figueroa R.N. - 04/12/2016 3:48 PM CST Adult Postprocedure Assessment Adult Postprocedure Assessment Entered On: 04/12/2016 15:50 LEAD SUSTAINABILITY SPECIALIST Performed On: 04/12/2016 15:48 LEAD SUSTAINABILITY SPECIALIST by LAKEISHA FIGUEROA RN Vital Signs Height : 185 cm(Converted to: 6 ft 1 inch(es)) LAKEISHA FIGUEROA RN - 04/12/2016 15:48 LEAD SUSTAINABILITY SPECIALIST General Level of Consciousness : Alert Orientation : Oriented x 3 Skin Color : Normal for ethnicity Skin Description : Dry, Normal Skin Temperature : Warm LAKEISHA FIGUEROA RN - 04/12/2016 15:48 LEAD SUSTAINABILITY SPECIALIST Cardiovascular Heart Rhythm : Regular LAKEISHA FIGUEROA RN - 04/12/2016 15:48 LEAD SUSTAINABILITY SPECIALIST Respiratory Respiratory Patient Stated Symptoms : None Respirations : Unlabored Distress : None Respiratory Pattern : Regular LAKEISHA FIGUEROA RN - 04/12/2016 15:48 LEAD SUSTAINABILITY SPECIALIST GI/ Nausea Symptoms : No LAKEISHA FIGUEROA RN - 04/12/2016 15:48 LEAD SUSTAINABILITY SPECIALIST Incision/Wound Incision/Wound Care Grid Activity : Assessed Dressing Location : Abdomen Laterality : Central LAKEISHA FIGUEROA RN - 04/12/2016 15:48 LEAD SUSTAINABILITY SPECIALIST Peripheral IV Peripheral IV Assess/Intervention Grid Peripheral IV #1 IV Activity : Discontinue Removal : Catheter intact, Hemostasis within expected timeframe Discontinued Date : 04/12/2016 LEAD SUSTAINABILITY SPECIALIST IV Site : Forearm Laterality : Left LAKEISHA FIGUEROA RN - 04/12/2016 15:48 LEAD SUSTAINABILITY SPECIALIST I&O Oral Intake : 480 mL LAKEISHA FIGUEROA RN - 04/12/2016 15:48 LEAD SUSTAINABILITY SPECIALIST Activity Patient Position : High Donohue's Activity Status ADL : Ambulating in zimmerman Activity Assistance : Stand-by assistance Assistive Device : None Ambulation Distance : 35 m Ambulation Patient Effort : Good LAKEISHA FIGUEROA RN - 04/12/2016 15:48 LEAD SUSTAINABILITY SPECIALIST PARSAP Activity Status : Moves 4 extremities voluntarily or on command Dressing : Dry and clean Respiratory Component : Able to deep breathe and cough freely Pain : Pain mild, handled by oral medication Circulation Component : BP 20% of preanesthetic level Ambulation : Able to stand up and walk straight Consciousness : Fully awake Fasting and Feeding : Able to drink fluids Oxygen Saturation - Sedation : Can maintain > 92% on room air Urine Output, PARSAP : Not assessed PARSAP Score : 19 LAKEISHA FIGUEROA RN - 04/12/2016 15:48 LEAD SUSTAINABILITY SPECIALIST Garduno Garduno Agitation Sedation Scale (RASS) : Alert and calm RASS Score : 0 LAKEISHA FIGUEROA RN - 04/12/2016 15:48 LEAD SUSTAINABILITY SPECIALIST Education General Patient Education Powergrid Topics : Discharge instructions/Medication list, Pain Management, Use of pain scale(s), When to callhealth care provider (Comment: Pt up int he zimmerman with the nurse. Steady on feet. Pain improved per pt. IV out and then pt dressed and given instructions for home. pt ahdn children understand. Discharged to home with children. [LAKEISHA FIGUEROA RN - 04/12/2016 15:48 LEAD SUSTAINABILITY SPECIALIST] ) Individuals Taught : Patient, Daughter, Son Barriers to Learning : None evident Teaching Method : Explanation, Printed materials Teaching Evaluation : Able to teach back, Verbalizes understanding LAKEISHA FIGUEROA RN - 04/12/2016 15:48 LEAD SUSTAINABILITY SPECIALIST Source: [facility] POWERCHART Document Id: [id number] LEAD SUSTAINABILITY SPECIALIST!64 SUSTAINABILITY SPECIALIST Miscellaneous - Lakeisha Figueroa R.N. - 04/12/2016 3:05 PM CST Adult Postprocedure Assessment Adult Postprocedure Assessment Entered On: 04/12/2016 15:26 LEAD SUSTAINABILITY SPECIALIST Performed On: 04/12/2016 15:05 LEAD SUSTAINABILITY SPECIALIST by LAKEISHA FIGUEROA RN Vital Signs Peripheral Pulse Rate : 78 /min Respiratory Rate : 16 /min Systolic Blood Pressure : 127 mmHg Diastolic Blood Pressure : 82 mmHg NIBP Mean : 97 mmHg BP Location : Right upper extremity SpO2 : 94 % Oxygen Saturation Monitoring Frequency : Continuous Oxygen Therapy : Room air Height : 185 cm(Converted to: 6 ft 1 inch(es)) LAKEISHA FIGUEROA RN - 04/12/2016 15:21 LEAD SUSTAINABILITY SPECIALIST General Level of Consciousness : Alert Orientation : Oriented x 3 Skin Color : Normal for ethnicity Skin Description : Dry, Normal Skin Temperature : Warm Pain Symptoms : Yes LAKEISHA FIGUEROA RN - 04/12/2016 15:21 LEAD SUSTAINABILITY SPECIALIST Pain Scale Pain Scale Verbal 0-10 : Open LAKEISHA FIGUEROA RN - 04/12/2016 15:21 LEAD SUSTAINABILITY SPECIALIST Pain Pain Assessment Grid Pain 1 Location : Abdomen Laterality : Bilateral Intensity : 4 Quality : Aching, Sharp (Comment: sharp with couging [LAKEISHA FIGUEROA RN - 04/12/2016 15:21 LEAD SUSTAINABILITY SPECIALIST] ) Aggravating Factors : Movement LAKEISHA FIGUEROA RN - 04/12/2016 15:21 LEAD SUSTAINABILITY SPECIALIST Cardiovascular Heart Rhythm : Regular LAKEISHA FIGUEROA RN - 04/12/2016 15:21 LEAD SUSTAINABILITY SPECIALIST Respiratory Respiratory Patient Stated Symptoms : None Respirations : Unlabored Respiratory Pattern : Regular LAKEISHA FIGUEROA RN 04/12/2016 15:21 LEAD SUSTAINABILITY SPECIALIST GI/ Nausea Symptoms : No LAKEISHA FIGUEROA RN - 04/12/2016 15:21 LEAD SUSTAINABILITY SPECIALIST Incision/Wound Incision/Wound Care Grid Activity : Assessed Dressing Location : Abdomen Laterality : Central Description : Dry LAKEISHA FIGUEROA RN - 04/12/2016 15:21 LEAD SUSTAINABILITY SPECIALIST Peripheral IV Peripheral IV Assess/Intervention Grid Peripheral IV #1 IV Site : Forearm Laterality : Left LAKEISHA FIGUEROA RN - 04/12/2016 15:21 LEAD SUSTAINABILITY SPECIALIST Activity Patient Position : Elevate head of bed 30 degrees LAKEISHA FIGUEROA RN - 04/12/2016 15:21 LEAD SUSTAINABILITY SPECIALIST Education General Patient Education Powergrid Topics : Pain Management, Plan of care, Postoperative instructions, Use of pain scale(s) (Comment: Pt con't to have pain 4/10, given percocet and dilaudid as ordered. Ice on. Will con't to monitor. [LAKEISHA FIGUEROA RN - 04/12/2016 15:21 LEAD SUSTAINABILITY SPECIALIST] ) LAKEISHA FIGUEROA RN - 04/12/2016 15:21 LEAD SUSTAINABILITY SPECIALIST Source: [facility] POWERCHART Document Id: [id number] LEAD SUSTAINABILITY SPECIALIST!55 SUSTAINABILITY SPECIALIST Miscellaneous - Lakeisha Figueroa R.N. - 04/12/2016 2:40 PM CST Adult Postprocedure Assessment Adult Postprocedure Assessment Entered On: 04/12/2016 15:21 LEAD SUSTAINABILITY SPECIALIST Performed On: 04/12/2016 14:40 LEAD SUSTAINABILITY SPECIALIST by LAKEISHA FIGUEROA RN Vital Signs Peripheral Pulse Rate : 82 /min Respiratory Rate : 14 /min Systolic Blood Pressure : 126 mmHg Diastolic Blood Pressure : 69 mmHg NIBP Mean : 88 mmHg BP Location : Right upper extremity SpO2 : 93 % (LOW) Oxygen Saturation Monitoring Frequency : Continuous Oxygen Therapy : Room air Height : 185 cm(Converted to: 6 ft 1 inch(es)) LAKEISHA FIGUEROA RN - 04/12/2016 15:20 LEAD SUSTAINABILITY SPECIALIST [facility] Diagn[facility] Document Id: [id number] LEAD SUSTAINABILITY SPECIALIST!12 SUSTAINABILITY SPECIALIST Miscellaneous - Lakeisha Figueroa R.N. - 04/12/2016 2:22 PM CST Adult Postprocedure Assessment Adult Postprocedure Assessment Entered On: 04/12/2016 15:20 LEAD SUSTAINABILITY SPECIALIST Performed On: 04/12/2016 14:22 LEAD SUSTAINABILITY SPECIALIST by LAKEISHA FIGUEROA RN Vital Signs Temperature Core : 36.5 DegC(Converted to: 97.7 DegF) Peripheral Pulse Rate : 83 /min Respiratory Rate : 14 /min Systolic Blood Pressure : 126 mmHg Diastolic Blood Pressure : 76 mmHg NIBP Mean : 93 mmHg BP Location : Right upper extremity SpO2 : 91 % (LOW) Oxygen Saturation Monitoring Frequency : Continuous Oxygen Therapy : Room air Height : 185 cm(Converted to: 6 ft 1 inch(es)) LAKEISHA FIGUEROA RN - 04/12/2016 15:04 LEAD SUSTAINABILITY SPECIALIST General Level of Consciousness : Alert Orientation : Oriented x 3 Skin Color : Normal for ethnicity Skin Description : Dry, Normal Skin Temperature : Warm Pain Symptoms : Yes LAKEISHA FIGUEROA RN - 04/12/2016 15:04 LEAD SUSTAINABILITY SPECIALIST Pain Scale Pain Scale Verbal 0-10 : Open LAKEISHA FIGUEROA RN - 04/12/2016 15:04 LEAD SUSTAINABILITY SPECIALIST Pain Pain Assessment Grid Pain 1 Location : Abdomen Laterality : Bilateral Intensity : 3 Quality : Aching, Sharp LAKEISHA FIGUEROA RN - 04/12/2016 15:04 LEAD SUSTAINABILITY SPECIALIST Cardiovascular Heart Rhythm : Regular LAKEISHA FIGUEROA RN - 04/12/2016 15:04 LEAD SUSTAINABILITY SPECIALIST Respiratory Respiratory Patient Stated Symptoms : None Respirations : Unlabored Respiratory Pattern : Regular LAKEISHA FIGUEROA RN - 04/12/2016 15:04 LEAD SUSTAINABILITY SPECIALIST GI/ Nausea Symptoms : No LAKEISHA FIGUEROA RN - 04/12/2016 15:04 LEAD SUSTAINABILITY SPECIALIST Incision/Wound Incision/Wound Care Grid Activity : Assessed Dressing Location : Abdomen Laterality : Central Description : Dry LAKEISHA FIGUEROA RN - 04/12/2016 15:04 LEAD SUSTAINABILITY SPECIALIST Peripheral IV Peripheral IV Assess/Intervention Grid Peripheral IV #1 IV Activity : Assessment IV Site : Forearm Laterality : Left LAKEISHA FIGUEROA RN - 04/12/2016 15:04 LEAD SUSTAINABILITY SPECIALIST Activity Patient Position : Elevate head of bed 30 degrees LAKEISHA FIGUEROA RN - 04/12/2016 15:04 LEAD SUSTAINABILITY SPECIALIST Education General Patient Education Powergrid Topics : Plan of care, Postoperative instructions (Comment: [facility]. Pain 310 on arrival. dressing is CDI and ice on. Children at side. Call light in reach and will con't to monitor. [LAKEISHA FIGUEROA RN - 04/12/2016 15:04 LEAD SUSTAINABILITY SPECIALIST] ) Individuals Taught : Patient, Daughter, Son Barriers to Learning : None evident Teaching Method : Explanation, Printed materials Teaching Evaluation : Verbalizes understanding LAKEISHA FIGUEROA RN - 04/12/2016 15:04 LEAD SUSTAINABILITY SPECIALIST Source: [facility] Tunesat Document Id: [id number] LEAD SUSTAINABILITY SPECIALIST!60 SUSTAINABILITY SPECIALIST Miscellaneous - Rick Benitez R.N. - 04/12/2016 10:30 AM CST Height/Length Height/Length Entered On: 04/12/2016 10:30 LEAD SUSTAINABILITY SPECIALIST Performed On: 04/12/2016 10:30 LEAD SUSTAINABILITY SPECIALIST by RICK BENITEZ RN Height/Length Height : 185 cm RICK BENITEZ RN - 04/12/2016 10:30 LEAD SUSTAINABILITY SPECIALIST Source: [facility] [employer] TechnologiesCHART Document Id: [id number] LEAD SUSTAINABILITY SPECIALIST!3 SUSTAINABILITY SPECIALIST documented in this encounter Plan of Treatment Upcoming Encounters Date Type Specialty Care Team Description 02/15/2022 Office Visit Orthopedic Surgery OlMadyson stacy saumya, DaydayO. [address] [place], [place] [phone] (Wo rk) documented as of this encounter Procedures Procedure Name Priority Date/Time Associated Diagnosis Comme nts SURGICAL PATHOLOGY Routine 04/12/2016 4:27 PM Res ults for this LEAD SUSTAINABILITY SPECIALIST procedure are i n the results section. documented in this encounter Results Pathology Surgical Pathology (04/12/2016 4:27 PM LEAD SUSTAINABILITY SPECIALIST) Specimen (Source) Anatomical Collection Method Collection Time Re ceived Time Location / / Volume Laterality 04/12/2016 4:27 PM LEAD SUSTAINABILITY SPECIALIST Narrative [facility] - 04/15/2016 1:24 PM LEAD SUSTAINABILITY SPECIALIST [facility] in [address] [address] Patient Name: SAAD MURRAY Patient ID #: [id number] Collected: 04/12/2016 Address: [facility]/State/Zip: [address] [place] [id number] Received: Reported: 04/14/2016 04/15/2016 Soc. Sec. #: ?/Age/Sex 1965 (Age: 50) ??M Physician(s): DARREL OLVERA MD Copy To: ? [facility] ??[id number] [address] [place] [address], ??[place] ??[address] SURGICAL PATHOLOGY REPORT FINAL DIAGNOSIS: UMBILICAL HERNIA SAC: --- FIBROMEMBRANOUS TISSUE WITH ACCOMPAN GUILLE ADIPOSE TISSUE WITH EXTRAVASATED BLOOD. [facility]/04/15/2016 BERNADETTE HERNANDEZ M.D. Report electronically released. Interpretation by BERNADETTE HERNANDEZ M.D. SPECIMEN(S) RECEIVED: HERNIA SAC - UMBILICAL HERNIA GROSS DESCRIPTION: Submitted as hernia sac is pink blue fib ro membrane apparently wrapped around yellow adipose tissue 2.5 x 2 x 1.5 cm. ??The adipose tissue appears hemorrhagic in areas. ??RS, one block. [id number] EAE/DMS/04/14/2016 MICROSCOPIC DESCRIPTION: Reviewed by Bernadette Hernandez M.D.; Patholo gist [facility]/04/15/2016 Lakeisha Olvera M.D. LAB SURG PATH ORDERABLES Performing Organization Address City/State/ZIP Code Phon e Number [facility] documented in this encounter Visit Diagnoses Not on filedocumented in this encounter
--- OUTSIDE RECORDS SUMMARY | 2022-01-25 11:42 | XMS_ITS | Encounter Summary ---
:1965 Author Organization [facility] Address [address] [place] [address] Care Team Providers Name Role Phone Unavailable Primary Care Provider Unavailable Encounter Details Date Type Department Care Team Description 02/29/2016 Hospital Encounter HX [facility] Nohemi Pablo i, STEVEN, C.N.P., R. N. [address] [facility], [facility] [address] [place], [place] [address] (Wo rk) Social History Tobacco [...] or relatives? How often do you attend christian or zoroastrian More than 4 time s per year 09/17/2018 services? 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 documented as of this encounter Last Filed Vital Signs Vital Sign Reading Time Taken Comments Blood Pressure 134/82 02/29/2016 8:24 AM DRILLING MACHINE RUNNER Pulse 92 02/29/2016 8:24 AM DRILLING MACHINE RUNNER Temperature - - Respiratory Rate - - Oxygen Saturation - - Inhaled Oxygen Concentration - - Weight 156 kg (344 lb 9.3 oz) 02/29/2016 8:24 AM DRILLING MACHINE RUNNER Height 185 cm (6' 0.84) 02/29/2016 8:24 AM DRILLING MACHINE RUNNER Body Mass Index 45.67 02/29/2016 8:24 AM DRILLING MACHINE RUNNER documented in this encounter Medications at Time of Discharge Medication Sig Dispensed Refills Start Date End Date atorvastatin (for_LIPITOR) Take 1 tablet by 0 03/06/2017 20 mg tablet mouth at bedtime. metoprolol succinate Take 1 tablet by 0 6 05/12/2017 (for_TOPROL-XL) 25 mg 24 mouth daily. hr tablet documented as of this encounter Progress Notes Ame Beal, STEVEN, C.N.P. - 02/29/2016 8:18 AM CST FM-NICK CHIEF COMPLAINT/REASON FOR VISIT Right-sided abdominal pain. HISTORY OF PRESENT ILLNESS Saad is a 50-year-old male, who presents today after being woken from sleep 2 days ago for right abdominal pain. He moved from the bed to the couch and was able to sleep better. This was around 4 a.m. Then around 1 p.m., it was slightly worse. He called the nurse line and was told to monitor. Yesterday his pain was better on wake up and last night he felt overall okay. This morning, he is feeling better still and the pain is slightly sore with palpation, but he even considered not coming today. He denies nausea, fever, recent illness. No constipation, diarrhea, red or black stools. Denies any new medications or supplements. It is not related to eating. He denies any new activities or physical labor within the past 6 days prior to the onset. He does have an umbilical hernia for which he was evaluated before, and he feels it has changed from nickel to quarter-sized. He has an appointment with the surgeon on March 05 for evaluation and discussion of repair. MEDICATIONS Atorvastatin 20 mg at bedtime. Lisinopril/hydrochlorothiazide 20 mg/25 mg 1 tablet daily. Metoprolol succinate 25 mg daily as needed for palpitations or elevated blood pressure. Protonix daily. Tramadol 50 to 100 mg twice daily as needed. ALLERGIES No known allergies. SYSTEMS REVIEW Per HPI. All others systems negative at this time. PAST MEDICAL/SURGICAL HISTORY Significant for: Morbid obesity. Hyperlipidemia. Hypertension. Esophageal reflux. SOCIAL HISTORY Former smoker. Recently January 12, 2016. VITAL SIGNS Temperature 36.6 degrees Celsius, heart rate 92, blood pressure 134/82, oxygen saturation 97% on room air. Height 185 cm, weight 156.3 kg. BMI 45.67. PHYSICAL EXAMINATION GENERAL: Saad is alert and oriented. In no acute distress. SKIN: Warm and dry. CARDIAC: Regular rate and rhythm. No murmur or extra sound. RESPIRATORY: Lung sounds clear throughout all lobes. ABDOMEN: Soft. Slight tenderness to both the left and right mid abdominal region. He does have an approximately 2 cm umbilical hernia that is easily reducible. No rigidity or guarding. No masses. Bowelsounds present. MUSCULOSKELETAL: Normal gait and posture. IMPRESSION/REPORT/PLAN Resolving abdominal pain. This financial writer was honest with patient. We do not know the exact cause of hisabdominal pain but it is promising that it is going away. He did not have any other symptoms with this. Meanwhile, encouraged him to continue to monitor closely and follow up if symptoms worsen or do not improve. He seemed a little unsettled with this answer but went on to describe that there could bemultiple causes of his abdominal pain but he has no concerning symptoms. Reminded of symptoms of incarcerated hernia and when to follow up. Otherwise, keep appointment with surgeon on March 05. All questions of patient answered. He stated understanding and agreement with current plan. Ame Beal APRN, C.N.P./pos Electronically Signed By: AME BEAL SASH FINISHER On: 03/14/2016 11:06 PM Source: [facility] MHSDOLBEYNONRADSYS Document Id: [id number] LING MACHINE RUNNER documented in this encounter Miscellaneous Notes Miscellaneous - Ame Beal APRN, C.N.P. - 03/04/2016 9:40 PM CST Ambulatory Discharge Medication List [address] [id number] Visit Information Name: SAAD MURRAY [facility] Number: [id number] Current Date: 03/04/2016 21:40:08 Attending Provider: AME BEAL NP Primary Care Provider: DANYEL SOLIS CNP HENOKTYRELLADRIENNE SAAD D has been given the following list of medications: Your Medications It is important to take your medications as directed. Use a pill box or chart to help remind you to take your medications. Please let your doctor or nurse know if you have problems taking your medications. Medication/Strength Dose Route Frequency Indications/Special Instructions/Comments/Notes traMADol (traMADol 50 mg oral tablet) 1-2 tab(s) Oral two times a day as needed for Pain pantoprazole (Protonix 40 mg oral delayed release tablet) 40 mg Oral once a day atorvastatin (atorvastatin 20 mg oral tablet) 20 mg Oral once a day (at bedtime) lisinopril-hydrochlorothiazide (lisinopril-hydrochlorothiazide 20 mg-25 mg oral tablet) 1 tab(s) Oral once a day (Zestoretic) metoprolol (metoprolol succinate [...] of emergency. Electronically Signed By: AME BEAL SASH FINISHER Signed On:04-MAR-2016 21:40:03 Additional Information: Source: [facility] POWERCHART Document Id: [id number] LING MACHINE RUNNER Miscellaneous - Ame Beal APRN, C.N.P. - 03/04/2016 9:40 PM CST Ambulatory Patient Summary [address] [id number] Visit Information Name: LISETTE SAAD Jarad [facility] Number: [id number] Current Date: 03/04/2016 21:40:09 Physicians Attending Provider: AME BEAL NP Primary Care Provider: DANYEL SOLIS CNP SAAD [...] your medications. Medication/Strength Dose Route Frequency Indications/Special Instructions/Comments/Notes traMADol (traMADol 50 mg oral tablet) 1-2 tab(s) Oral two times a day as needed for Pain pantoprazole (Protonix 40 mg oral delayed release tablet) 40 mg Oral once a day atorvastatin (atorvastatin 20 mg oral tablet) 20 mg Oral once a day (at bedtime) lisinopril-hydrochlorothiazide (lisinopril-hydrochlorothiazide 20 mg-25 mg oral tablet) 1 tab(s) Oral once a day (Zestoretic) metoprolol (metoprolol succinate [...] of emergency. Electronically Signed By: AME BEAL SASH FINISHER Signed On:04-MAR-2016 21:40:03 Your Allergies & Intolerances Substance Reaction Symptoms Category Comments No Known Allergies Drug Your Problem List Problem Status Onset Comments HTN [Hypertension] Active GERD [Gastroesophageal reflux disease] Active Hyperlipidemia NOS Active Hyperglycemia Active Your Upcoming Appointments Date Time Location Provider 03/05/2016 08:00 [facility] Lorrie Olvera MD, Dar Bonner Attention: Contact your local Clinic if further [...] if you dont have one. Go to [email or web address] and click on Create Your Account. Then, follow the directions to complete the online form. Youll be asked for your [facility] number which you can find at the top of this document. Your Goals/Additional instructions: Source: [facility] POWERCHART Document Id: [id number] LING MACHINE RUNNER Miscellaneous - Wilmer Lyons C.M.A. 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 Temperature Core : 36.6 DegC(Converted to: 97.9 DegF) Peripheral Pulse Rate : 92 /min Systolic Blood Pressure : 134 mmHg Diastolic Blood Pressure : 82 mmHg NIBP Mean : 99 mmHg BP Location : Right upper extremity Blood Pressure Cuff Size : Large SpO2 : 97 % Oxygen Therapy : Room air Height : 185 cm(Converted to: 6 ft 1 inch(es), 73 inch(es)) Actual Weight : 156.3 kg(Converted to: 344 lb 9 oz) Weight Source : Standing scale Dosing Weight Clinic : 156.3 kg Clinic BSA : 2.83 Body Mass Index : 45.67 kg/m2 WILMER LYONS CMA - 02/29/2016 8:24 DRILLING MACHINE RUNNER General Info Information Given By : Patient Preferred Communication Mode : Verbal Languages : Stateless Is Patient Female and 13-50 no hysterectomy : No WILMER LYONS CMA - 02/29/2016 8:24 DRILLING MACHINE RUNNER Subjective Pain Symptoms : No [facility] LYONS [facility] - 02/29/2016 8:24 DRILLING MACHINE RUNNER Dependent Habits Exposure to Tobacco Smoke : Other: former smoker Smoking Status : Former smoker Tobacco 2A : Yes Tobacco Use/Currently Using : No Tobacco Use/Last 30 Days : No Tobacco Use/Last 12 months : No WILMER LYONS [facility] - 02/29/2016 8:24 DRILLING MACHINE RUNNER Source: [facility] [email or web address] Document Id: [id number] DRILLING MACHINE RUNNER!32 LING MACHINE RUNNER documented in this encounter Plan of Treatment Upcoming Encounters Date Type Specialty Care Team Description 02/15/2022 Office Visit Orthopedic Surgery Madyson Rosa, D.ONikhil [address] [place] [phone] (Wo rk) documented as of this encounter Visit Diagnoses Not on filedocumented in this encounter
--- OUTSIDE RECORDS SUMMARY | 2022-01-25 11:42 | XMS_ITS | Encounter Summary ---
:1965 Author Organization [facility] Address [address] [place] [address] Care Team Providers Name Role Phone Unavailable Primary Care Provider Unavailable Encounter Details Date Type Department Care Team Description 08/11/2015 Hospital Encounter HX [facility] Jacob Chun, STEVEN, C.N.P. 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 documented as of this encounter Last Filed Vital Signs Vital Sign Reading Time Taken Comments Blood Pressure 116/84 08/11/2015 8:48 AM CDT Pulse 88 08/11/2015 8:48 AM CDT Temperature - - Respiratory Rate 20 08/11/2015 8:48 AM CDT Oxygen Saturation - - Inhaled Oxygen Concentration - - Weight 160 kg (352 lb 4.7 oz) 08/11/2015 8:48 AM CDT Height 185 cm (6' 0.84) 08/11/2015 8:48 AM CDT Body Mass Index 46.69 08/11/2015 8:48 AM CDT documented in this encounter Medications at Time of Discharge Medication Sig Dispensed Refills Start Date End Date metoprolol succinate Take 1 tablet by 0 6 05/12/2017 (for_TOPROL-XL) 25 mg 24 mouth daily. hr tablet documented as of this encounter Progress Notes Norma Soils APRN, C.N.P. - 08/11/2015 2:03 PM CDT CHIEF COMPLAINT/REASON FOR VISIT Follow up Headache. HISTORY OF PRESENT ILLNESS Saad presents to clinic today, here following up on last office visit. Please see that note for further information. He states his headache is significantly improved, almost resolved, since startingthe medication. He states that when he went home he realized he had not even been taking his Lisinopril/HCTZ pill for the last several months, only the metoprolol 25mg daily. He added the combo pill inthe morning and metoprolol in the afternoon. He has been takin the Flexeril every 8 hours and has had no side effects from the medication. He feels better. His blood pressure is quite good today. MEDICATIONS Lisinopril/hydrochlorothiazide 20/25 one tab daily. Metoprolol Succinate 25mg daily Flexeril 5mg TID PRN Protonix 40 mg daily. He takes this about once weekly ALLERGIES No known allergies. PAST MEDICAL/SURGICAL HISTORY 1. Hypertension. 2. Hyperglycemia. 3. Hyperlipidemia, not currently on any statin therapy. 4. Esophageal reflux. VITAL SIGNS Temperature Core: 36.4 Low Peripheral Pulse Rate: 88 Respiratory Rate: 20 SpO2: 95 Systolic Blood Pressure: 116 Diastolic Blood Pressure: 84 Height: 185 Actual Weight: 159.8 Body Mass Index: 46.69 SYSTEMS REVIEW As stated above. His headache is almost resolved. He still will get a small twinge of pain occasionally. He notes he has had a dry, annoying cough for the past couple months but states it cannot be dueto his Lisinopril because he hasn't been taking it. He has a muscle tightness/strain in his right posterior shoulder/back, and the flexeril is also helping with that. PHYSICAL EXAMINATION GENERAL: Twin is alert and oriented. He is calm, cooperative, and pleasant throughout our exam. Appears to be in no acute distress. HEENT: Conjunctivae clear without injection or exudate. He has some tenderness to palpation over hisleft ear, the area of concern. Otherwise normal. LUNGS: Clear to auscultation. CARDIAC: Regular rate and rhythm. No murmurs or extra heart sounds present. NEUROLOGIC: Cranial nerves 2 through 12 are intact. No focal neurologic deficit noted. EXTREMITIES: No peripheral edema. IMPRESSION/REPORT/PLAN 1. Headache, resolving. I suspect this was due to a combination of his uncontrolled hypertension jose scalp muscle strain. He may also have a component of TMJ and will discuss this with his dentist. He was advised to use the flexeril only as needed rather than scheduled and see if his symptoms continue to resolve. He will follow up if they reoccur. 2. Hypertension. Blood pressure looks much better since starting the Lisinopril/HCTZ. I advised patient that he can hold the metoprolol for now and take only if his BP gets higher than 140/90 as he maynot need it since starting the combo pill. I gave him a prescription for a blood pressure cuff to have at home. I also discussed with him his hyperlipidemia and my recommendations from his previous physical. We discussed his Walton risk score and I recommended rechecking his cholesterol, and if still elevated, starting atorvastatin 10mg nightly. He will stop into clinic for a lab visit ( Lipid and CMP) and BP check next week. All questions answered. Electronically Signed By: NORMA SOLIS CNP On: 08/11/2015 02:16 PM Source: [facility] POWERCHART Document Id: [id number] documented in this encounter Miscellaneous Notes Miscellaneous - Rosi Oropeza - 02/21/2016 12:48 PM CST Urgent - Norma Solis/ Review Assistant Provider - Tramadol Document Contains Addenda Addendum by NAVJOT MAY MD on February 23, 2016 15:47:53 P[employer] HELPER From: NAVJOT MAY MD Sent: 02/23/2016 15:47:53 PIG LEAD [employer]TER HELPER Subject: RE:FW: Urgent - Review Assistant Provider - Tramadol Approved Order:traMADol (traMADol 50 mg oral tablet) 1-2 tab(s) PO 2xDay Qty: 60 tab(s) Refills: 0 Substitutions Allowed PRN Pain Print - [id number] Signed by NAVJOT MAY MD 02/23/2016 15:47:51 Addendum by ROSI POP RN on February 21, 2016 16:56:40 P[employer] LEAD M[employer]TER HELPER Script was called into [facility] in [place]. Left message for patient that he would need to beseen in clinic for future refills. Addendum by ROSI POP RN on February 21, 2016 14:26:48 PIG LEAD MELTER HELPER From: ROSI POP RN ([facility] Nurse) To: NAVJOT MAY MD; Sent: 02/21/2016 14:26:48 PIG LEAD MELTER HELPER Subject: FW: Urgent - Review Assistant Provider - Tramadol Addendum by ROSI POP RN on February 21, 2016 14:26:36 PIG LEAD MELTER HELPER On hold pending signature Order:traMADol (traMADol 50 mg oral tablet) 1-2 tab(s) PO 2xDay Qty: 60 tab(s) Refills: 0 Substitutions Allowed PRN Pain Print - [id number] Addendum by NAVJOT MAY MD on February 21, 2016 14:10:25 PIG LEAD MELTER HELPER From: NAVJOT MAY MD To: [facility] Nurse; Sent: 02/21/2016 14:10:25 PIG LEAD MELTER HELPER Subject: RE: Urgent - Review Assistant Provider - Tramadol Under the circumstances with TK on maternity leave, will fill #60. Addendum by JULIA LAKE RN on February 21, 2016 13:17:47 PIG LEAD MELTER HELPER From: JULIA LAKE RN ([facility] Nurse) To: NAVJOT MAY MD; Sent: 02/21/2016 13:17:47 PIG LEAD MELTER HELPER Subject: FW: Urgent - Review Assistant Provider - Tramadol Dr. May - Patient requesting refill on Tramadol. Message below from Norma 01/16/16 is the last I see in reference to the tramadol for back/hip pain. Please advise. From: NORMA SOLIS CNP To: KAYLIN HARKINS RN; Sent: 01/16/2016 09:32:32 CDT Subject: RE: Requests a call from PCP when available Spoke with patient, friday so has a lot going on right now. Picked up tramadol and we discussed, plans to try PT next couple weeks, order placed for surgical consultation for patients umbilical hernia at his request, thinks he mighth have this repaired over the winter. He is going to try physical therapy and if no improvement in his back/hip, I advised that he come in to see one of my colleagues while I am out on maternity leave for further eval, imaging, and possible referral. TK From: ROSI OROPEZA To: [facility] Nurse; Sent: 02/21/2016 12:48:06 PIG LEAD MELTER HELPER Subject: Urgent - Norma Solis/ Review Assistant Provider - Tramadol Actions: Notify patient- refer to General Message If you need a prescription refill please call your pharmacy. Please allow 3 business days for processing. Call Center Template: ?? May we leave a message for you on this phone? yes ?? What can I help you with today? Saad has been waiting for a call back in regards to filling Tramadol. Twin states that Norma Solis did say she would fill either the methyiprednisone or the Tramadol if needed. Due to Twin's illness and subsequent plus the ending of [employer] benefits, Twin has been unable to make appointments to further address his hip pain. Please review clinic notes regarding refills and call Twin today. Thank you for your attention to this request ?? If Medication Refill: o What is the medication? Tramadol o What pharmacy do you use? [facility] in [facility] o Have you contacted your pharmacy regarding this request? I will send this information to the appropriate staff member who will look into your concern. Someone will call you back within 4 business hours.. Thank you for calling [facility]. Source: [facility] POWERCHART Document Id: [id number] Miscellaneous - Norma Solis APRN, C.N.P. - 08/11/2015 9:26 AM CDT Ambulatory Patient Summary [address] [id number] Visit Information Name: SAAD MURRAY [facility] Number: [id number] Current Date: 08/11/2015 09:26:43 Physicians Attending Provider: NORMA SOLIS CNP Primary [...] needed for Muscle spasm x 10 day(s) lisinopril-hydrochlorothiazide (lisinopril-hydrochlorothiazide 20 mg-25 mg oral tablet) 1 Tablet(s),Oral, once a day (Zestoretic) metoprolol (metoprolol succinate 25 mg oral tablet, extended release) 1 Tablet(s), Oral, once a day Take as needed for palpitations or if BP is higher than 140/90 This is a CHANGE pantoprazole (Protonix 40 mg oral delayed release tablet) 1 Tablet(s), Oral, once a day Stop Taking the Following Medications: Medication list as of 08-11-15 09:26 Attention: If you have any medications at [...] Electronically Signed By: NORMA SOLIS CNP Signed On:11-AUG-2015 09:26:39 Your Allergies & Intolerances Substance Reaction Symptoms [...] if you dont have one. Go to [email or web address] and click on Create Your Account. Then, follow the directions to complete the online form. Youll be asked for your [facility] number which you can find at the top of this document. Your Goals/Additional instructions: Source: [facility] POWERCHART Document Id: [id number] Miscellaneous - Norma Solis APRN, C.N.P. - 08/11/2015 9:26 AM CDT Ambulatory Discharge Medication List [address] [id number] Visit Information Name: SAAD MURRAY [facility] Number: [id number] Visit Date: 08/11/2015 09:26:42 Attending Provider: NORMA SOLIS CNP Primary Care Provider: NORMA SOLIS CNP HENOKSAAD KAPADIA has been given the following list of [...] needed for Muscle spasm x 10 day(s) lisinopril-hydrochlorothiazide (lisinopril-hydrochlorothiazide 20 mg-25 mg oral tablet) 1 Tablet(s),Oral, once a day (Zestoretic) metoprolol (metoprolol succinate 25 mg oral tablet, extended release) 1 Tablet(s), Oral, once a day Take as needed for palpitations or if BP is higher than 140/90 This is a CHANGE pantoprazole (Protonix 40 mg oral delayed release tablet) 1 Tablet(s), Oral, once a day Stop Taking the Following Medications: Medication list as of 08-11-15 09:26 Attention: If you have any medications at [...] Electronically Signed By: NORMA SOLIS CNP Signed On:11-AUG-2015 09:26:39 Additional Information: Source: [facility] POWERCHART Document Id: [id number] Miscellaneous - Jeannette Gleason L.PNikhilN. - 08/11/2015 8:48 AM CDT Adult Collection Systems Consultant Intake/History Adult Collection Systems Consultant Intake/History Entered On: 08/11/2015 8:55 CDT Performed On: 08/11/2015 8:48 CDT by JEANNETTE GLEASON ELECTRICAL MECHANIC Intake Chief Complaint : follow up Ambulatory Intake Additional Information : much better Temperature Core : 36.4 DegC(Converted to: 97.5 DegF) (LOW) Peripheral Pulse Rate : 88 /min Respiratory Rate : 20 /min Systolic Blood Pressure : 116 mmHg Diastolic Blood Pressure : 84 mmHg NIBP Mean : 95 mmHg BP Location : Right upper extremity Blood Pressure Cuff Size : Large SpO2 : 95 % Oxygen Therapy : Room air Height : 185 cm(Converted to: 6 ft 1 inch(es), 73 inch(es)) Actual Weight : 159.8 kg(Converted to: 352 lb 5 oz) Weight Source : Standing scale Dosing Weight Clinic : 159.8 kg Clinic BSA : 2.87 Body Mass Index : 46.69 kg/m2 JEANNETTE GLEASON LPN - 08/11/2015 8:48 CDT General Info Information Given By : Patient Preferred Communication Mode : Verbal Languages : Mongolian Is Patient Female and 13-50 no hysterectomy : No JEANNETTE GLEASON LPN - 08/11/2015 8:48 CDT Subjective Pain Symptoms : Yes JEANNETTE GLEASON LPN - 08/11/2015 8:48 CDT Pain Scale Pain Scale Verbal 0-10 : Open JEANNETTE GLEASON LPN - 08/11/2015 8:48 CDT Pain Pain Assessment Grid Pain 1 Location : Head Laterality : Left (Comment: behinf left ear [JEANNETTE GLEASON LPN - 08/11/2015 8:48 CDT] ) Intensity : 2 Time Pattern : Acute, Intermittent Onset : Sudden Quality : Sharp Aggravating Factors : Movement Alleviating Factors : Other: medication adjustment and new medication JEANNETTE GLEASON LPN - 08/11/2015 8:48 CDT Dependent Habits Smoking Status : Former smoker Tobacco 2A : Yes Tobacco Use/Currently Using : No Tobacco Use/Last 30 Days : No Tobacco Use/Last 12 months : No JEANNETTE GLEASON LPN - 08/11/2015 8:48 CDT Source: [facility] Document Id: [id number]!46 documented in this encounter Plan of Treatment Upcoming Encounters Date Type Specialty Care Team Description 02/15/2022 Office Visit Orthopedic Surgery Madyson Rosa D.O. [address] [place] [address] [phone] (Wo rk) documented as of this encounter Visit Diagnoses Not on filedocumented in this encounter
--- OUTSIDE RECORDS SUMMARY | 2022-01-25 11:42 | XMS_ITS | Encounter Summary ---
:1965 Author Organization [facility] Address [address] [place] [address] Care Team Providers Name Role Phone Unavailable Primary Care Provider Unavailable Encounter Details Date Type Department Care Team Description 03/15/2016 Hospital Encounter HX [facility] Nohemi Pablo i, STEVEN, C.N.P., R. [address]. [address] [facility] [address] [place], [place] [address] (Wo rk) Social History Tobacco [...] How often do you attend yazidi or yarsanism More than 4 time s [...] at Date Recorded Male 03/25/2018 1:01 PM NONPROFIT DIRECTOR documented as of this encounter Last Filed Vital Signs Vital Sign Reading Time Taken Comments Blood Pressure 142/84 03/15/2016 12:50 PM NONPROFIT DIRECTOR Pulse 92 03/15/2016 12:50 PM NONPROFIT DIRECTOR Temperature - - Respiratory Rate - - Oxygen Saturation - - Inhaled Oxygen Concentration - - Weight 155 kg (341 lb 4.4 oz) 03/15/2016 12:50 PM NONPROFIT DIRECTOR Height 185 cm (6' 0.84) 03/15/2016 12:50 PM NONPROFIT DIRECTOR Body Mass Index 45.23 03/15/2016 12:50 PM NONPROFIT DIRECTOR documented in this encounter Medications at Time of Discharge Medication Sig Dispensed Refills Start Date End Date atorvastatin (for_LIPITOR) Take 1 tablet by 0 03/06/2017 20 mg tablet mouth at bedtime. metoprolol succinate Take 1 tablet by 0 6 05/12/2017 (for_TOPROL-XL) 25 mg 24 mouth daily. hr tablet documented as of this encounter H&P Notes Maite Rey, STEVEN, C.N.P. - 03/15/2016 12:44 PM CST [id number] Document Contains Addenda CHIEF COMPLAINT/REASON FOR VISIT Preoperative. HISTORY OF PRESENT ILLNESS Saad is a 50-year-old male, who presents today for preoperative exam for umbilical hernia repair with mesh placement on 03/29/[address] [place] [address] Olvera. Saad denies any personal or family history of anesthesia reaction, malignant hyperthermia, bleeding, or clotting disorders. He endorses snoring maybe 2 times per week. He reports rare apneic episodes. He has never been diagnosed with obstructive sleep apnea. MEDICATIONS Atorvastatin 20 mg at bedtime. Lisinopril/hydrochlorothiazide 20 mg- 25 mg tablet daily. Metoprolol succinate 25 mg as needed for palpitations or blood pressure greater than 140/90. He has not used this in greater than 2 months. Protonix 40 mg daily. Tramadol 50 mg, 1 to 2 tabs twice daily actually uses 2 tablets maybe twice a week for right hip/lowback pain. ALLERGIES No known allergies. SYSTEMS REVIEW Review of systems per HPI. CARDIAC: Able to achieve a MET level greater than 4 without difficulty. RESPIRATORY: He does mention a cough that he has had for 10 years. It lasts from December to June. It never amounts to much. This was prior to starting the lisinopril. No fever and otherwise feeling well. MUSCULOSKELETAL: Saad mentions being seen for right low back and hip pain for which he was giventramadol. He uses 2 tablets maybe twice per week to help control the pain. He does realize that oncehe is recovered from umbilical hernia surgery he will need to have that further worked up due to risk of dependence on repeat tramadol use. All other systems negative at this time. PAST MEDICAL/SURGICAL HISTORY 1. Esophageal reflux on Protonix. 2. Hypertension. 3. Hyperlipidemia on statin therapy. 4. Hyperglycemia without diagnosis of diabetes. 5. History of irritable bowel syndrome. 6. History of diverticulosis without diverticulitis. 7. History of vasectomy. 8. Morbid obesity with a BMI of 45. Based on personal history, this would be his first experience with anesthesia. 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 Two children, one in high school, one in college. Former smoker. Quit in his 20s. FAMILY HISTORY Father had hypertension, of Parkinson disease at age 71. Mother is still living at age 70 with hypertension and pacemaker. One brother with acid reflux. Two sisters, one with hypertension. Two children are healthy. PREVENTIVE CARE. Tdap is up-to-date as of 2012. He did agree to a flu shot today. VITAL SIGNS Temperature 36.6 degrees Celsius, heart rate 92, blood pressure 142/84, oxygen saturation 97% on room air. Height 185 cm, weight 154.8 kg. BMI 45.23. PHYSICAL EXAMINATION GENERAL: Saad is alert and oriented in no acute distress. SKIN: Warm and dry. HEENT: Head normocephalic. Conjunctivae clear. Pupils equal, round, react to light. Tympanic membranes pearly bond with normal cone of light. Oral mucosa pink, moist. Oropharynx without erythema or exudate. NECK: Supple. No adenopathy. Neck circumference 46.5 cm. Negative for carotid bruits bilaterally. CARDIAC: Regular rate and rhythm. No murmur or extra sound. RESPIRATORY: Lung sounds clear throughout all lobes. ABDOMEN: Soft. Nontender. Bowel sounds active. Negative for abdominal bruits bilaterally. He does have the small umbilical hernia noted but not overly prominent. EXTREMITIES: Radial and dorsalis pedis pulses 2+ bilaterally. No peripheral edema. MUSCULOSKELETAL: Normal gait and posture. DIAGNOSTICS: We will check a CBC and EKG today. He is also here for fasting labs for CMP and lipid panel to recheck for history of elevated liver enzymes and effects of atorvastatin. IMPRESSION/REPORT/PLAN 1. Preoperative exam for umbilical hernia. Pending normal diagnostic testing he is deemed an appropriate candidate to undergo anesthesia and surgery by Dr. Olvera on March 29. Will notify of results and adjust treatment plan accordingly. Blood pressure will be rechecked before leaving clinic todayas well. He was advised to read through the preoperative instructions which he plans to do this weekend and then call with any questions. Reminded no NSAIDs or anti-inflammatories for 1 week prior to the procedure. Also hold all medications on the day of the surgery. If he takes tramadol the night before he needs to notify staff of this. Obstructive sleep apnea. RISK SCORE WAS 21 INDICATING HIGH RISK FOR SLEEP APNEA. Monitor patient closely after procedure and provide adequate postop instructions regarding this to family member for close monitoring at home. Saad has been advised to follow up if he develops a fever, symptoms of illness or other concerns develop before surgery. All questions of patient answered. He stated understanding and agreement of current plan. ADDENDUM: Sodium Lvl: 135 03/15/16 Potassium Lvl: 4.4 03/15/16 Chloride: 95 Low 03/15/16 CO2: 29 03/15/16 Glucose Fastin High 03/15/16 Creatinine: 0.8 03/15/16 Calcium Lvl: 9.9 03/15/16 BUN: 15 03/15/16 EGFR (MDRD): >60.0 03/15/16 EGFR (MDRD): >60.0 03/15/16 AGAP: 11 03/15/16 Albumin Lvl: 4.5 03/15/16 Protein Total: 7.1 03/15/16 AST: 27 03/15/16 ALT: 40 03/15/16 Alkaline Phosphatase: 77 03/15/16 Bili Total: 0.7 03/15/16 Hgb: 15.0 03/15/16 Hct: 45.8 03/15/16 WBC: 8.9 03/15/16 RBC: 4.99 03/15/16 MCV: 91.8 03/15/16 RDW: 12.6 03/15/16 Platelet: 265 03/15/16 EKG showed Normal sinus rhythm Minimal voltage criteria for LVH, may be normal variant. Patient to be notified of this with the option to do an Echo or repeat EKG in 6 months. He is currently without symptoms of cardiac disease. Cardiac Risk Index Score considering open intraperitoneal hernia repair was 0.9%, low risk. Maite Rey APRN, C.N.P./pos Electronically Signed By: MAITE REY MANAGER OF PHARMACY On: 03/19/2016 09:04 PM Modified by and Electronically Signed by: MAITE REY MANAGER OF PHARMACY On: 03/19/2016 08:57 PM Source: [facility] MHSDOLBEYNONRADSYS Document Id: [id number] ROFIT DIRECTOR documented in this encounter Miscellaneous Notes Miscellaneous - Bony Westbrook - 07/23/2016 2:55 PM CDT Norma Solis or Maite Rey - please call back EBONY about possible sooner appt Document Contains Addenda Addendum by SHARMILA GLEASON LPN on July 24, 2016 09:30:53 CDT left detailed message for pt to be seen in clinic for ongoing hip pain and pain medicaiton refill. Also recomended getting the PT as recommended initially set up and started. Encoraged a call to clinic to schedule appointment wit TK or HAO on . or Fri. Addendum by HETAL JARA RN on July 23, 2016 16:26:45 CDT LMTCB Addendum by NORMA SOLIS CNP on July 23, 2016 16:19:54 CDT From: NORMA SOLIS CNP To: ALETA [facility] Nurse; Sent: 07/23/2016 16:19:54 CDT Subject: RE: Norma Solis or Maite Rey - please call back EBONY about possible sooner appt Patient needs to be seen, he can see Maite on if he wants. When I saw him in december I recommended physical therapy which he has not started, the order is still in the queue, so he could startthat as well. Thanks, TK Addendum by HETAL JARA RN on July 23, 2016 15:32:07 CDT From: HETAL JARA RN ([facility] Nurse) To: NORMA SOLIS CNP; Sent: 07/23/2016 15:32:07 CDT Subject: FW: Norma Rey - please call back EBONY about possible sooner appt No, he didn't have hip surgery, it seems to be a chronic issue. He was seen for it 01/02/16. Addendum by NORMA SOLIS CNP on July 23, 2016 15:27:07 CDT From: NORMA SOLIS CNP To: [facility] Nurse; Sent: 07/23/2016 15:27:07 CDT Subject: RE: Norma Rey - please call back EBONY about possible sooner appt is he talking about his hernia surgery? I don't see a hip surgery in his record, only umbilical hernia repair, which shouldnt be causing prolonged pain. Please switch his appointment to this week with maite for further evaluation, or he can see a different provider tomorrow if he doesn't want to wait until . I dont see any history of hip problems in his records. If his pain is from his surgery, you can try to catch Dr. Olvera by phone (his surgeon) at the [facility] today before he leaves. Thanks, TK Addendum by HETAL JARA RN on July 23, 2016 15:15:43 CDT From: HETAL JARA RN ([facility] Nurse) To: NORMA SOLIS CNP; Sent: 07/23/2016 15:15:43 CDT Subject: FW: Norma Rey - please call back EBONY about possible sooner appt Pt wondering about getting a small supply of tramadol for ongoing right hip pain. Pt has an appt setup on 07/29/16, please advise. Pt willing got come in sooner, soonest available appt with requested providers is 07/25/16 with Maite Rey CNP. From: BONY WESTBROOK ([facility] Call Center) To: [facility] Family Medicine Nurse; Cc: [facility] Call [place]; Sent: 07/23/2016 14:55:11 CDT Subject: Norma Solis or Maite Rey - please call back EBONY about possible sooner appt If you need a prescription refill please call your pharmacy. Please allow 3 business days for processing. Call Center Template: ?? May we leave a message for you on this phone? ?? What can I help you with today? Saad called today and made an appointment for 07/29 with Norma Solis to follow up with hip pain he is having after having surgery on it. He would like to be seen sooner if possible for it as it's bothering him, either by Norma or Maite. If he can't be seen sooner he is wondering if he can get a week's Rx for Tramadol or another pain med to help him get by until Friday. Please call him back to discuss, thank you. ?? If Medication Refill: o What is the medication? o What pharmacy do you use? o Have you contacted your pharmacy regarding this request? I will send this information to the appropriate staff member who will look into your concern. Thank you for calling [facility]. Source: [facility] POWERCHART Document Id: [id number] ROFIT DIRECTOR Miscellaneous - Rosi Oropeza - 04/18/2016 10:07 AM CST Maite Rey - Status of refill Document Contains Addenda Addendum by JALEEL TIMMONS RN on April 19, 2016 08:30:56 NONPROFIT DIRECTOR see previous message Addendum by JALEEL TIMMONS RN on April 19, 2016 08:29:23 NONPROFIT DIRECTOR LMTCB Addendum by JALEEL TIMMONS RN on April 18, 2016 16:17:19 NONPROFIT DIRECTOR LMTCB Addendum by JOSH ZENG RN on April 18, 2016 10:40:55 NONPROFIT DIRECTOR From: JOSH ZENG RN To: ALETA [facility] Nurse; Sent: 04/18/2016 10:40:55 NONPROFIT DIRECTOR Subject: Refill-Please call back EBONY A message regarding pt's Oxy was sent to your pool yesterday. Please advise and call pt back to let him know the status. Thank you. From: ROSI OROPEZA To: JOSH ZENG RN; Sent: 04/18/2016 10:07:55 NONPROFIT DIRECTOR Subject: Maite Rey - Status of refill Actions: Notify patient- refer to General Message If you need a prescription refill please call your pharmacy. Please allow 3 business days for processing. Call Center Template: ?? May we leave a message for you on this phone? ?? What can I help you with today? Twin is calling for a status of his refill request. Please call, Thank you Note: Unable to reach Triage Nurse Line for assistance ?? If Medication Refill: o What is the medication? o What pharmacy do you use? o Have you contacted your pharmacy regarding this request? I will send this information to the appropriate staff member who will look into your concern. Someone will call you back within 4 business hours.. Thank you for calling [facility]. Source: [facility] POWERCHART Document Id: [id number] Miscellaneous - Ailyn Almendarez - 04/09/2016 12:29 PM CST medication refill request: Maite Rey Document Contains Addenda Addendum by GABRIEL YAN RN on April 11, 2016 8:58 NONPROFIT DIRECTOR [facility] [place]. Unable to LVM on pt's phone as phone just kept ringing with no voice mail set up Addendum by CORY BOB on April 10, 2016 16:23 NONPROFIT DIRECTOR Please advise once this has been faxed to [facility] in [place]. Pharmacy has not received yet according to pt. Thank you Pt would like phone call when sent Addendum by MAITE REY NP on April 09, 2016 15:50:28 NONPROFIT DIRECTOR Approved Order:traMADol (traMADol 50 mg oral tablet) 1-2 tab(s) PO 2xDay Qty: 60 tab(s) Refills: 0 Substitutions Allowed PRN Pain Print - [id number] Signed by MAITE REY NP 04/09/2016 15:50:24 Addendum by HETAL JARA RN on April 09, 2016 14:37:48 NONPROFIT DIRECTOR From: HETAL JARA RN ([facility] Medicine Nurse) To: MAITE REY NP; Sent: 04/09/2016 14:37:48 NONPROFIT DIRECTOR Subject: Med Management On hold pending signature Order:traMADol (traMADol 50 mg oral tablet) 1-2 tab(s) PO 2xDay Qty: 60 tab(s) Refills: 0 Substitutions Allowed PRN Pain Print - [id number] Addendum by JOSH ZENG RN on April 09, 2016 14:31:54 NONPROFIT DIRECTOR From: JOSH ZENG RN To: [facility] Family Medicine Nurse; Sent: 04/09/2016 14:31:54 NONPROFIT DIRECTOR Subject: FW: medication refill request: Maite Rey From: AILYN ALMENDAREZ ([facility]) To: JOSH ZENG RN; Cc: [facility]; Sent: 04/09/2016 12:29:46 NONPROFIT DIRECTOR Subject: medication refill request: Maite Rey Actions: Notify patient- refer to General Message If you need a prescription refill please call your pharmacy. Please allow 3 business days for processing. Call Center Template: ?? May we leave a message for you on this phone? ?? How soon do you need a call back? ?? What can I help you with today? Twin is in need of a refill of his Tramadol. He recently saw Manuel she told him to call the clinic when he was ready for the refill. Please call with questions or concerns. ?? If Medication Refill: o What is the medication?Tramadol o What pharmacy do you use?[facility] in [place] o Have you contacted your pharmacy regarding this request? I will send this information to the appropriate staff member who will look into your concern. If thenurse needs to talk to you he or she will call you back within two hours. Thank you for calling [facility]. Source: [facility] POWER[facility]ART Document Id: [id number] ROFIT DIRECTOR Miscellaneous - Lavinia Mike R.N. - 03/21/2016 11:42 AM CST Lisinopril-HCTZ Document Contains Addenda Addendum by WILMER LYONS CMA on March 27, 2016 9:09 NONPROFIT DIRECTOR Tried calling patient again, unable to leave message as no voicemail. Addendum by KAYLIN HARKINS RN on March 21, 2016 12:59:04 NONPROFIT DIRECTOR Spoke with pharmacy and requested patient be advised to contact clinic to discuss Addendum by KAYLIN HARKINS RN on March 21, 2016 12:57:21 NONPROFIT DIRECTOR attempted to call patient to relay message from 03/19 -- phone rang/No Voicemail to leave message. per notes it does look as though a letter was sent with the phys plan of care Addendum by MAITE REY MANAGER OF PHARMACY on March 21, 2016 12:40:19 NONPROFIT DIRECTOR From: MAITE REY MANAGER OF PHARMACY To: ALETA [facility] Nurse; Sent: 03/21/2016 12:40:19 NONPROFIT DIRECTOR Subject: RE: Lisinopril-HCTZ If you get a hold of pt, please notify of message from 03/19. Or have pharmacist inform him to call us and ask for Wilmer for the message about EKG and BP mgmt. Thanks, HAO Addendum by MAITE REY MANAGER OF PHARMACY on March 21, 2016 12:39:30 NONPROFIT DIRECTOR Approved Order:lisinopril-hydroCHLOROthiazide (lisinopril-hydroCHLOROthiazide 20mg-25mg oral tablet) 1 tab(s)PO Daily Qty: 30 tab(s) Refills: 5 Substitutions Allowed Route To Pharmacy - [facility] (Zestoretic) Signed by MAITE REY NP 03/21/2016 12:39:18 From: LAVINIA MIKE RN ([facility] Nurse) To: MAITE REY MANAGER OF PHARMACY; Sent: 03/21/2016 11:42:10 NONPROFIT DIRECTOR Subject: Lisinopril-HCTZ On hold pending signature Order:lisinopril-hydroCHLOROthiazide (lisinopril-hydroCHLOROthiazide 20mg-25mg oral tablet) 1 tab(s)PO Daily Qty: 30 tab(s) Refills: 5 Substitutions Allowed Route To Pharmacy - [facility] [place] (Zestoretic) Documented Discontinue:lisinopril-hydroCHLOROthiazide (lisinopril-hydrochlorothiazide 20 mg-25 mg oral tablet) Signed by LAVINIA MIKE RN 03/21/2016 11:41:49 Caller is: ( ) Patient ( ) Mother ( ) Father ( ) Spouse ( ) Daughter ( ) Son ( x ) Pharmacy ( ) Other: Provider: Emigdio Solis Pharmacy: [facility] Name of Medications Needing Refill: Lisinopril-HCTZ 20/25 Last Refill Date: Additional Information: Documented med by hx. You saw patient last for comp - pre op physical on 03/15/16 Last / Future Appointment: Order placed for annual visit. Disposition: ( x ) Send to Pharmacy ( ) Call to Pharmacy ( ) Patient will pharmacy picking tech Script ( ) Mail Rxto Patient Source: [facility] Document Id: [id number] ROFIT DIRECTOR Miscellaneous - Wilmer Lyons, C.M.A. - 03/20/2016 11:23 AM CST Custom Result Letter March 20, 2016 SAAD LISETTE [address] [facility] [address] Dear SAAD MURRAY, We tried calling you without success of reaching you. Cholesterol has much improved on the 20mg of atorvastatin. Continue that dose. Liver enzymes are back to normal. Blood sugar slightly elevated in the prediabetes range. This could be up due to the increased stress you have been under in the past few months as well. The best treatment is low fat, Medite rranean diet or diabetic type diet and regular exercise for weight loss. Don't stress over this, butwork into it over the next year. Other labs are normal. Recheck labs in 1 year or as determined by PCP. EKG was normal except showed possible enlargement of the left ventricle of the heart which could happen with history of hypertension. This could also be normal for you. There are a few options: 1-We could recheck an EKG in 6 months to see if it has changed or 2-Do an Echo to look at the heart structures now. Since you are not having activity intolerance, able to climb stairs without needing a rest, no swelling or other sign of heart problem, either option would be fine. As long you return to clinic if you develop any signs or symptoms described above. Have you been checking blood pressure at home outside of clinic? If not, please come in for BP checkthis week or next (prior to OR). You may need to get on the Metoprolol daily. Please call us regarding your blood pressure and your preference regarding the EKG or schedule a nurse only blood pressure check. Sincerely, WILMER LYONS Electronic Signature Electronically Signed By: WILMER LYONS CMA On: March 20, 2016 This document has images extracted. Source: [facility] Document Id: [id number] Miscellaneous - Maite Rey APRN, C.N.P. - 03/19/2016 8:48 AM CST Labs Document Contains Addenda Addendum by WILMER LYONS CMA on March 27, 2016 09:09:17 NONPROFIT DIRECTOR Tried calling patient, no voicemail. Addendum by WILMER LYONS CMA on March 20, 2016 11:18:08 NONPROFIT DIRECTOR Tried calling patient, unable to leave message. Will send letter. From: MAITE REY MANAGER OF PHARMACY To: WILMER LYONS CMA; Sent: 03/19/2016 08:48:21 NONPROFIT DIRECTOR Subject: Labs Please notify that cholesterol has much improved on the 20mg of atorvastatin. Continue that dose. Liver enzymes are back to normal. Blood sugar slightly elevated in the prediabetes range. This could beup due to the increased stress he has been under in the past few months as well. The best treatment is low fat, Mediterranean diet or diabetic type diet and regular exercise for weight loss. Don't stress over this, but work into it over the next year. Other labs are normal. Recheck labs in 1 year or as determined by PCP. EKG was normal except showed possible enlargement of the left ventricle of the heart which could happen with his Hx of HTN. This could also be normal for him. There are a few options: 1-We could recheck an EKG in 6 months to see if it has changed or 2-Do an Echo to look at the heart structures now. Since he is not having activity intolerance, able to climb stairs without needing a rest, no swelling or other sign of heart problem, either option would be fine. As long as he RTC if he develops any s/s described above. Has he been checking BP at home outside of clinic? If not, have him come in for BP check this week or next (prior to OR). He may need to get on the Metoprolol daily. Thanks, HAO Source: [facility] POWER[facility]ART Document Id: [id number] Electronically signed by Conversion, [facility] Rod Buster [id number] at 08/25/2016 11:21 AM CDT Miscellaneous - Maite Rey, STEVEN, C.N.P. - 03/15/2016 1:19 PM CST Ambulatory Patient Summary [address] [id number] Visit Information Name: SAAD MURRAY [facility] Number: [id number] Current Date: 03/15/2016 13:19:11 Physicians Attending Provider: MAITE REY NP Primary Care Provider: NORMA SOLIS CNP HERBIEADRIENNESAAD has been given the following list of [...] the Following Medications: Medication list as of 03-15-16 13:19 Attention: If you have any medications at home that are not on this list, DO NOT take them until youcontact your provider for clarification. Give a copy of your medication list to your primary care provider. Update your medication list any time medications or doses are changed and carry your medication list at all times in case of emergency. Electronically Signed By: MAITE REY NP Signed On:15-MAR-2016 13:19:06 Your Allergies & Intolerances Substance Reaction Symptoms Category Comments No Known Allergies Drug Your Problem List Problem Status Onset Comments HTN [Hypertension] Active GERD [Gastroesophageal reflux disease] Active Hyperlipidemia NOS Active Hyperglycemia Active Body mass index (BMI) 45.0-49.9, adult Active 03/15/16 Rule activated problem due to BMI 45-49 posted on 03/15 at 12:50 NONPROFIT DIRECTOR. Your Upcoming Appointments Date Time Location Provider 03/29/2016 08:00 Dar Booth MD 04/12/2016 07:45 [facility] Dar Givens MD Attention: Contact your local Clinic if further [...] if you dont have one. Go to [email or web address] and click on Create Your Account. Then, follow the directions to complete the online form. Youll be asked for your [facility] number which you can find at the top of this document. Your Goals/Additional instructions: Source: [facility] Document Id: [id number] ROFIT DIRECTOR Miscellaneous - Maite Rey APRN, C.N.P. - 03/15/2016 1:19 PM CST Ambulatory Discharge Medication List [address] [id number] Visit Information Name: SAAD [facility] Number: [id number] Current Date: 03/15/2016 13:19:10 Attending Provider: MAITE REY MANAGER OF PHARMACY Primary Care Provider: NORMA SOLIS CNP SAAD [...] the Following Medications: Medication list as of 03-15-16 13:19 Attention: If you have any medications at home that are not on this list, DO NOT take them until youcontact your provider for clarification. Give a copy of your medication list to your primary care provider. Update your medication list any time medications or doses are changed and carry your medication list at all times in case of emergency. Electronically Signed By: MAITE REY MANAGER OF PHARMACY Signed On:15-MAR-2016 13:19:06 Additional Information: Source: [facility] POWERCHART Document Id: [id number] ROFIT DIRECTOR Miscellaneous - Carolyn Murray, RNikhilMNikhilANikhil - 03/15/2016 12:50 PM CST Adult Wireless Sales Expert Intake/History Document Has Been Updated Adult Wireless Sales Expert Intake/History Entered On: 03/15/2016 12:53 NONPROFIT DIRECTOR Performed On: 03/15/2016 12:50 NONPROFIT DIRECTOR by CAROLYN MURRAY Intake Chief Complaint : Pre Op Date: 03-29-16 Location: [facility] Surgeon: Dr Olvera Procedure: Hernia repair with mesh Temperature Core : 36.6 DegC(Converted to: 97.9 DegF) Peripheral Pulse Rate : 92 /min Systolic Blood Pressure : 142 mmHg (HI) Diastolic Blood Pressure : 84 mmHg NIBP Mean : 103 mmHg SpO2 : 97 % Oxygen Therapy : Room air Height : 185 cm(Converted to: 6 ft 1 inch(es), 73 inch(es)) Actual Weight : 154.8 kg(Converted to: 341 lb 4 oz) Dosing Weight Clinic : 154.8 kg Clinic BSA : 2.82 Body Mass Index : 45.23 kg/m2 CAROLYN MURRAY ANTOINEMarylin - 03/15/2016 12:50 NONPROFIT DIRECTOR General Info Languages : Togolese Is Patient Female and 13-50 no hysterectomy : No LAURYNCAROLYN Ruby - 03/15/2016 12:50 NONPROFIT DIRECTOR Subjective Pain Symptoms : No HENOKISAACCAROLYN Ruby - 03/15/2016 12:50 NONPROFIT DIRECTOR Dependent Habits Exposure to Tobacco Smoke : Other: former smoker Smoking Status : Former smoker Tobacco 2A : Yes Tobacco Use/Currently Using : No Tobacco Use/Last 30 Days : No Tobacco Use/Last 12 months : No HENOKJAMILKATHLEENSTEPHENIECAROLYN Ruby ANTOINEMarylin - 03/15/2016 12:50 NONPROFIT DIRECTOR Allergy (As Of: 03/15/2016 12:53:27 NONPROFIT DIRECTOR) Allergies (Active) NKA Estimated Onset Date: Unspecified ; Created By: WILMER GAONA LPN; Reaction Status: Active ; Category: Drug ; Substance: NKA ; Type: Allergy ; Updated By: WILMER GAONA LPN; Reviewed Date: 03/15/2016 12:50 NONPROFIT DIRECTOR Source: [facility] POWERCHART Document Id: [id number] NONPROFIT DIRECTOR!27 ROFIT DIRECTOR documented in this encounter Plan of Treatment Upcoming Encounters Date Type Specialty Care Team Description 02/15/2022 Office Visit Orthopedic Surgery Madyson Rosa, D.ONikhil [address] [place], [place] [phone] (Wo rk) documented as of this encounter Procedures Procedure Name Priority Date/Time Associated Comments Diagnosis LIPID PANEL, S Routine 03/15/2016 1:45 PM Results for this NONPROFIT DIRECTOR procedure are i n the results section. CBC WITHOUT Routine 03/15/2016 1:45 PM Results f or this DIFFERENTIAL, B NONPROFIT DIRECTOR procedure ar e in the results section. COMPREHENSIVE Routine 03/15/2016 1:45 PM Results for this METABOLIC PANEL, S/P NONPROFIT DIRECTOR procedu re are in the results section. ECG Routine 03/15/2016 1:36 PM Results f or this NONPROFIT DIRECTOR procedure are i n the results section. documented in this encounter Results CBC without Differential (03/15/2016 1:45 PM NONPROFIT DIRECTOR) P athologist Signature Leukocytes 8.9 3.5 - 10.5 POWERCHART X109L Erythrocytes 4.99 4.32 - 5.72 POWERCHART O4070A Hemoglobin 15.0 13.5 - 17.5 POWERCHART GDL Hematocrit 45.8 38.8 - 50.0 POWERCHART MCV 91.8 81.2 - 95.1 POWERCHART FL HX RDW 12.6 11.8 - 15.6 POWERCHART Platelet Count 265 150 - 450 POWERCHART X109L Specimen (Source) Anatomical Collection Method Collection Time Re ceived Time Location / / Volume Laterality Blood 03/15/2016 1:45 PM NONPROFIT DIRECTOR Maite Rey APRN, C.N.P., R.N. LAB BLOOD ADD-ON Performing Organization Address City/State/ZIP Code Phon e Number POWERCHART Lipid Panel (03/15/2016 1:45 PM NONPROFIT DIRECTOR) athologist Signature Cholesterol, 183 <=199 MGDL POWERCHART Total Comment: 2013 National Lipid Association recommen dations for Total Cholesterol in adults ages 18 and up: Desirable <200 mg/dL Borderline high 200-239 mg/dL High 240 mg/dL 2013 National Lipid Association recommen dations for Total Cholesterol in children ages 2 to 17. Acceptable <170 mg/dL Borderline High 170-199 mg/dL High 200 mg/dL HX HDL 44 >=40 MGDL POWERCHART Comment: 2014 National Lipid Association recommen dations for HDL-C in adults ages 18 and up: Low <40 mg/dL (Men) Low <50 mg/dL (Women) 2014 National Lipid Association recommen dations for HDL-C in children ages 2 to 17. Low <40 mg/dL Borderline Low 40-45 mg/dL Acceptable >45 mg/dL Triglycerides 93 <=149 MGDL POWERCHART Comment: 2014 National Lipid [...] assessment when triglycerides are >400mg/dL. Calculated LDL 120 <=129 MGDL POWERCHART Comment: 2014 National Lipid [...] esting for FH and FDB [facility]: FH/ADH Genetic Reflex [place] [...] at or the on-line test catalog at 8aweek for information about how to order these danette ts or to speak with a genetic counselor. Further interpretation would require clinical information. Specimen (Source) Anatomical Collection Method Collection Time Re ceived Time Location / / Volume Laterality Blood 03/15/2016 1:45 PM NONPROFIT DIRECTOR Viridiana Adams APRNNNikhilPNikhil LAB BLOOD ADD-ON Performing Organization Address City/State/ZIP Code Phon e Number POWERCHART (ABNORMAL) CMP (Comprehensive Metabolic Panel) (03/15/2016 1:45 PM NONPROFIT DIRECTOR) [facility] gist Method Time Signature Alanine 40 7 - 55 UL POWERCHART Amniotransferase, LD Albumin, S 4.5 3.5 - 5.2 POWERCHART GDL Alkaline 77 40 - 130 POWERCHART Phosphatase, S UL Aspartate 27 8 - 48 UL POWERCHART Aminotransferase (AST), S Sodium, S 135 135 - 145 POWERCHART MMOLL Potassium, S 4.4 3.5 - 5.1 POWERCHART MMOLL Chloride, S 95 (L) 98 - 107 POWERCHART MMOLL CO2 Total 29 22 - 29 POWERCHART MMOLL Glucose, Fasting, S 103 (H) 70 - 99 POWERCHART MGDL BUN (Blood Urea 15 6 - 24 POWERCHART Nitrogen), S MGDL Creatinine 0.8 0.8 - 1.3 POWERCHART MGDL Calcium, Total, S 9.9 8.6 - 10.3 POWERCHART MGDL Anion Gap 11 7 - 15 POWERCHART MMOLL HXeGFR (MDRD) >60.0 >=60.0 POWERCHART MLMINSA eGFR Black/ >60.0 >=60.0 POWERCHART Guyanese MLMINSA Bilirubin, Total, S 0.7 <=1.2 MGDL POWERCHAR T Total Protein, S 7.1 6.3 - 7.9 POWERCHART GDL Specimen (Source) Anatomical Collection Method Collection Time Re ceived Time Location / / Volume Laterality Blood 03/15/2016 1:45 PM NONPROFIT DIRECTOR Norma Solis APRN, C.N.P. LAB BLOOD ADD-ON Performing Organization Address City/State/ZIP Code Phon e Number POWERCHART ECG 12 Lead (03/15/2016 1:36 PM NONPROFIT DIRECTOR) Specimen (Source) Anatomical Collection Method Collection Time Re ceived Time Location / / Volume Laterality 03/15/2016 1:36 PM NONPROFIT DIRECTOR [facility] - 03/15/2016 1:36 PM NONPROFIT DIRECTOR Test Reason : EKG Blood Pressure : / mmHG Vent. Rate : 086 BPM ? Atrial Rate : 086 BPM ?? P-R Int : 188 ms ?QRS D ur : 088 ms ?QT Int : 362 ms ? P-R-T Axe s : 044 -05 -06 degrees ?? QTc Int : 433 ms Normal sinus rhythm Minimal voltage criteria for LVH, may be normal variant No previous ECGs available Referred By: MAITE REY ? Confirmed By:BO HERNANDEZ JR MD Procedure Note Provider, Paula Phillips - 08/15/2016F ormatting of this note might be different from the original. Test Reason : EKG Blood Pressure : / mmHG Vent. Rate : 086 BPM Atrial Rate : 086 B PM P-R Int : 188 ms QRS Dur : 088 ms QT Int : 362 ms P-R-T Axes : 044 -05 -0 6 degrees QTc Int : 433 ms Normal sinus rhythm Minimal voltage criteria for LVH, may be normal variant No previous ECGs available Referred By: MAITE REY Confirmed By:Chase HERNANDEZ JR MD Bo Hernandez Jr., M.D. ECG ORDERABLES Performing Organization Address City/State/ZIP Code [facility] e Number [facility] [address] [place] [id number] documented in this encounter Visit Diagnoses Not on filedocumented in this encounter
--- OUTSIDE RECORDS SUMMARY | 2022-01-25 11:42 | XMS_ITS | Encounter Summary ---
:1965 Author Organization [facility] Address [address] [place] [address] Care Team Providers Name Role Phone Unavailable Primary Care Provider Unavailable Encounter Details Date Type Department Care Team Description 02/17/2015 Hospital Encounter HX [facility] Jacob Chun, STEVEN, C.N.P. 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 - 02/17/2015 10:55 AM CST [id number] CHIEF COMPLAINT/REASON FOR VISIT Annual exam. HISTORY OF PRESENT ILLNESS Slim presents to the clinic today, here for his annual wellness exam. He is a previous patient of . He states he is feeling well other than pain in his posterior left shoulder. He has significant pain to the touch in 1 area as well as had soreness with certain stretching and maneuvers. This has been going on for several months. He has a son massage the area and felt a knot. He has been doing ice as well as NSAIDs and Tylenol without relief. He is otherwise fasting and has no other concerns today. MEDICATIONS Current medications: Hydrochlorothiazide 50 mg daily. Metoprolol succinate 50 mg daily which was prescribed last year but patient states he has not filledand been taking. Protonix 40 mg, which patient only takes as needed. ALLERGIES No known allergies. PAST MEDICAL/SURGICAL HISTORY Past medical history: 1. Esophageal reflux. 2. Hypertension, uncontrolled. 3. Hyperlipidemia, currently not on statin therapy, diet treatment only. 4. Hyperglycemia without a diagnosis of diabetes. 5. History of irritable bowel syndrome. 6. History of diverticulosis without diverticulitis. Surgeries: 1. History of vasectomy, 2004. 2. Morbid obesity with a BMI of 45. SOCIAL HISTORY Patient is . He lives in his own home. 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 He is a nonsmoker. He smoked in his 20s but then quit many years ago. He does drink alcohol regularly but he states no more than a couple drinks at a time. He has 2 children at home. His was recently diagnosed with breast cancer, underwent double mastectomy, but now concurrently found several lesions in her brain and is undergoing radiation for this. Understandably, he has been under a significantamount of stress lately. FAMILY HISTORY Dad at age 71 of Parkinson disease. He had hypertension. Mom has hypertension and a pacemaker. She is alive at age 70. He has 1 brother with acid reflux. Two sisters, 1 who has hypertension, otherwise his siblings he is unsure of their medical history. He has 2 children who are healthy. Noother more distant family history of cancers or early heart disease. SYSTEMS REVIEW Saad denies any chest pain. No shortness of breath, wheezing. No problems with bowel or bladder habits. He gets occasional heartburn. Posterior left shoulder pain as described above. He will occasionally get palpitations. This has been worked up for in the past by Dr. Benson. He has had a normal e chocardiogram in 2006. He was advised to try the metoprolol for his palpitations but has not done this. He states he will get them occasionally and they will last less than a minute and then dissipate;however, over the past week or two he has been getting them more often, most likely due to increasedstress and anxiety. Rest of complete systems review is negative. Patient also notes that he does getnumbness and tingling in his fingers and toes which has been going on for the past couple years as well. It is unchanged since last physical. VITAL SIGNS Temp 36.7, heart rate 78, respiratory rate 16, blood pressure 146/90. Oxygen 98% on room air. Jhoook912 cm, weight 155.5 kg. BMI is 45. PHYSICAL EXAMINATION GENERAL: Saad is alert, oriented. He is calm, cooperative, and pleasant throughout our exam. Appears to be in no acute distress. HEENT: Conjunctivae clear without injection or exudate. Bilateral tympanic membranes pearly bond with regular cone of light. Oropharynx pink and moist with normal dentition. NECK: Supple. No masses, lymphadenopathy, carotid bruit or thyromegaly noted. LUNGS: Clear to auscultation. CARDIAC: Regular rate and rhythm. No murmurs or extra heart sounds present. ABDOMEN: Soft and nondistended, nontender to palpation. EXTREMITIES: No peripheral edema. Capillary refill is brisk. Pulses are palpable and symmetric. MUSCULOSKELETAL: Upon examination of the left shoulder he has significant point tenderness at the base of his left scapula near the rhombus. There is no bruising, swelling, or deformity noted. He has good range of motion of his left shoulder. NEUROLOGIC: DTRs equal at the patella. Balance intact. No focal neurologic deficit. SKIN: No rashes. IMPRESSION/REPORT/PLAN 1. Annual wellness exam. Flu shot given today. He is up to date on Tdap screening. He is fasting this morning. So we will do a CBC, CMP, lipid panel. I am going to add in a TSH and B12 levels due to his numbness and tingling, and we will follow up with him pending results. We discussed healthy lifestyle for weight loss and daily exercise was recommended. 2. Hypertension, uncontrolled. I am going to switch him to hydrochlorothiazide 25 mg combined with lisinopril 20 mg daily to see if this will keep better control of his blood pressure. He can take metoprolol succinate 25 mg as needed if he begins having palpitations, but I would like him to follow up in clinic in 2 weeks for a blood pressure recheck or sooner if any concerns. Medication was discussedincluding possible side effects. 3. Gastroesophageal reflux disease. Control on Protonix as needed and diet control. 4. Left shoulder muscle strain and spasm. Advised heat, daily stretches which were given to him today. He can take Flexeril as needed and massage if symptoms do not improve in the next 2 to 3 weeks. Would recommend physical therapy. 5. Recent stress due to 's health condition. He was encouraged to take care of himself as far asdiet, exercise and sleep. He can certainly let us know if anything changes in the meantime. Otherwise, we will be in touch with him about his lab results. Saad understood and agreed with this plan. All questions answered. Medications discussed. Norma Solis APRN, C.N.P./pos Electronically Signed By: NORMA SOLIS CNP On: 02/21/2015 08:00 AM Modified by and Electronically Signed by: NORMA SOLIS CNP On: 02/21/2015 08:00 AM Source: [facility] Document Id: [id number] LATE WORKER documented in this encounter Miscellaneous Notes Miscellaneous - Norma Solis APRN, C.N.P. - 02/21/2015 12:58 PM TEMPLATE WORKER Results Notification Document Contains Addenda Addendum by SHARMILA GLEASON LPN on 21 February 2015 16:33:45 TEMPLATE WORKER From: SHARMILA GLEASON LPN To: NROMA SOLIS CNP; Sent: 02/21/2015 16:33:45 TEMPLATE WORKER Show up: 02/21/2015 16:33:00 TEMPLATE WORKER Subject: RE: Results Notification pt returned call and was given the information below. He states he will be following up with TK nextweek with regard to his shoulder that she had treated and will discuss his options at that time. Addendum by SHARMILA GLEASON LPN on 21 February 2015 14:25:19 TEMPLATE WORKER Left message to call back. From: NORMA SOLIS CNP To: SHARMILA GLEASON LPN; Sent: 02/21/2015 12:58:20 TEMPLATE WORKER Show up: 02/21/2015 12:54:00 TEMPLATE WORKER Subject: Results Notification Labs look good, but cholesterol high. According to his numbers, his risk of a cardiovascular event in the next 10 years is 5.7%. AHA does not recommend statin therapy until risk of 7.5% or greater, but they do say that with a risk of 5- 7.5% and an LDL greater than 160, he would be a candidate for statin therapy. His liver enzymes are elevated, but this could be because he has fatty deposits in his liver from high cholesterol. I would recommend working on diet and exercise to decrease his cholesterol intake, and we can check a liver ultrasound at his earliest convenience to get more information, and can decide whether or not to start a statin at that time. All else normal. Thanks, TK Results: Date Result Name Ind Value Ref Range 02/17/2015 11:52 Sodium Lvl 139 mmol/L (135 - 145) 02/17/2015 11:52 Potassium Lvl 4.4 mmol/L (3.5 - 5.1) 02/17/2015 11:52 Chloride (L) 97 mmol/L (98 - 107) 02/17/2015 11:52 CO2 28 mmol/L (22 - 29) 02/17/2015 11:52 AGAP 14 mmol/L (7 - 15) 02/17/2015 11:52 Alkaline Phosphatase 77 U/L (40 - 130) 02/17/2015 11:52 Glucose Fasting 95 mg/dL (70 - 99) 02/17/2015 11:52 Creatinine 0.8 mg/dL (0.8 - 1.3) 02/17/2015 11:52 EGFR (MDRD) >60.0 mL/min/SA (>=60.0 - ) 02/17/2015 11:52 EGFR (MDRD) >60.0 mL/min/SA (>=60.0 - ) 02/17/2015 11:52 BUN 16 mg/dL (6 - 24) 02/17/2015 11:52 Calcium Lvl 10.1 mg/dL (8.6 - 10.3) 02/17/2015 11:52 Protein Total 7.4 g/dL (6.3 - 7.9) 02/17/2015 11:52 Albumin Lvl 4.7 g/dL (3.5 - 5.2) 02/17/2015 11:52 AST (H) 85 U/L (8 - 48) 02/17/2015 11:52 ALT (H) 153 U/L (7 - 55) 02/17/2015 11:52 Bili Total 0.6 mg/dL ( - <=1.2) 02/17/2015 11:52 Cholesterol (H) 250 mg/dL ( - <=199) 02/17/2015 11:52 Trig 112 mg/dL ( - <=149) 02/17/2015 11:52 HDL 47 mg/dL (>=40 - ) 02/17/2015 11:52 LDL Calculated (H) 181 mg/dL ( - <=129) 02/17/2015 11:52 Vitamin B12 Lvl 577 pg/mL (211 - 946) 02/17/2015 11:52 TSH 1.68 mIU/L (0.27 - 4.20) 02/17/2015 11:52 Hgb 16.7 g/dL (13.5 - 17.5) 02/17/2015 11:52 Hct 48.5 % (38.8 - 50.0) 02/17/2015 11:52 WBC 9.0 x10(9)/L (3.5 - 10.5) 02/17/2015 11:52 RBC 5.21 x10(12)/L (4.32 - 5.72) 02/17/2015 11:52 MCV 93.1 fL (81.2 - 95.1) 02/17/2015 11:52 RDW 12.3 % (11.8 - 15.6) 02/17/2015 11:52 Platelet 262 x10(9)/L (150 - 450) 02/17/2015 11:52 Neutro Absolute 6.16 10(9)/L (1.70 - 7.00) 02/17/2015 11:52 Lymph Absolute 2.14 x10(9)/L (0.90 - 2.90) 02/17/2015 11:52 Payne Absolute 0.61 x10(9)/L (0.30 - 0.90) 02/17/2015 11:52 Eos Absolute 0.10 x10(9)/L (0.05 - 0.50) 02/17/2015 11:52 Baso Absolute 0.02 x10(9)/L (0.00 - 0.30) 02/17/2015 11:52 Differential? Auto Source: [facility] POWERCHART Document Id: [id number] Electronically signed by Conversion, [facility] Criminal Intelligence Specialist [id number] at 08/26/2016 6:24 AM CDT Miscellaneous - Norma Solis APRN, C.N.P. - 02/17/2015 11:51 AM TEMPLATE WORKER Ambulatory Patient Summary [address] [id number] Visit Information Name: SAAD MURRAY [facility] Number: [id number] Current Date: 02/17/2015 11:51:22 Physicians Attending Provider: NORMA SOLIS CNP Primary [...] Changes/Routing cyclobenzaprine (Flexeril 5 mg oral tablet) 1-2 tab(s), Oral, once a day as needed for Muscle spasm x 10 day(s) use as needed. try one tab first night, may take up to two if needed. New Routed to [address] [address] lisinopril-hydrochlorothiazide (lisinopril-hydrochlorothiazide 20 mg-25 mg oral tablet) 1 Tablet(s),Oral, once a day (Zestoretic) New Routed to [address] [address] metoprolol (metoprolol succinate 25 mg oral tablet, extended release) 1 Tablet(s), Oral, once a day This is a CHANGE Routed to [address] [address] *pantoprazole (Protonix 40 mg oral delayed release tablet) 1 Tablet(s), Oral, once a day * You have let us know that you are not taking this medication as listed. Please talk with your primary care provider or the health care provider who prescribed the medication as soon as possible. Stop Taking the Following Medications: hydrochlorothiazide (hydrochlorothiazide 50 mg oral tablet) Medication list as of 02-17-15 11:51 Attention: If you have any medications at [...] Electronically Signed By: NORMA SOLIS CNP Signed On:17-FEB-2015 11:51:18 Your Allergies & Intolerances Substance Reaction Symptoms [...] if you dont have one. Go to [email or web address] and click on Create Your Account. Then, follow the directions to complete the online form. Youll be asked for your [facility] number which you can find at the top of this document. Your Goals/Additional instructions: Source: [facility] POWERCHART Document Id: [id number] LATE WORKER Miscellaneous - Norma Solis APRN, C.N.P. - 02/17/2015 11:51 AM TEMPLATE WORKER Ambulatory Discharge Medication List [address] [id number] Visit Information Name: SAAD MURRAY [facility] Number: [id number] Visit Date: 02/17/2015 11:51:21 Attending Provider: NORMA SOLIS CNP Primary Care [...] Changes/Routing cyclobenzaprine (Flexeril 5 mg oral tablet) 1-2 tab(s), Oral, once a day as needed for Muscle spasm x 10 day(s) use as needed. try one tab first night, may take up to two if needed. New Routed to [address] [address] lisinopril-hydrochlorothiazide (lisinopril-hydrochlorothiazide 20 mg-25 mg oral tablet) 1 Tablet(s),Oral, once a day (Zestoretic) New Routed to [address] [address] metoprolol (metoprolol succinate 25 mg oral tablet, extended release) 1 Tablet(s), Oral, once a day This is a CHANGE Routed to [address] [address] *pantoprazole (Protonix 40 mg oral delayed release tablet) 1 Tablet(s), Oral, once a day * You have let us know that you are not taking this medication as listed. Please talk with your primary care provider or the health care provider who prescribed the medication as soon as possible. Stop Taking the Following Medications: hydrochlorothiazide (hydrochlorothiazide 50 mg oral tablet) Medication list as of 02-17-15 11:51 Attention: If you have any medications at [...] of emergency. Electronically Signed By: NORMA SOLIS HAT BLOCKER Signed On:17-FEB-2015 11:51:18 Additional Information: Source: [facility] POWERCHART Document Id: [id number] LATE WORKER Miscellaneous - Wilmer Lomeli, L.P.N. - 02/17/2015 11:15 AM CST Ambulatory Vitals Height Weight Ambulatory Vitals Height Weight Entered On: 02/17/2015 11:15 TEMPLATE WORKER Performed On: 02/17/2015 11:15 TEMPLATE WORKER by WILMER LOMELI LPN Vitals/Ht/Wt Systolic Blood Pressure : 146 mmHg (HI) Diastolic Blood Pressure : 90 mmHg (HI) NIBP Mean : 109 mmHg BP Location : Right upper extremity Blood Pressure Cuff Size : Large Height : 185 cm(Converted to: 6 ft 1 inch(es), 73 inch(es)) WILMER LOMELI LPN - 02/17/2015 11:15 TEMPLATE WORKER Source: [facility] POWERCHART Document Id: [id number] TEMPLATE WORKER!8 LATE WORKER Miscellaneous - Wilmer Lomeli, L.P.N. - 02/17/2015 11:10 AM CST Health Assessment Health Assessment Entered On: 02/17/2015 11:11 TEMPLATE WORKER Performed On: 02/17/2015 11:10 TEMPLATE WORKER by WILMER LOMELI LPN Health Assessment Complete Health Assessment Complete or Modified : Annual Health Assessment Annual Health Assessment Completed : Yes WILMER LOMELI LPN - 02/17/2015 11:10 TEMPLATE WORKER Nutrition Nutrition Risk Factors by History Adult : None WILMER LOMELI LPN - 02/17/2015 11:10 TEMPLATE WORKER Functional Current Daily Living Assistance : None WILMER LOMELI LPN - 02/17/2015 11:10 TEMPLATE WORKER Dependent Habits Tobacco Use/Currently Using : No Smoking Status : Former smoker Alcohol Use : Yes WILMER LOMELI LPN - 02/17/2015 11:10 TEMPLATE WORKER AUDIT Tool How Often Do You Have A Drink : 2 to 3 times a week How Many Drinks in a Day When Drinking : 3 or 4 Six or More Drinks On One Occassion : Weekly Audit Phase 1 Score : 7 WILMER LOMELI LPN - 02/17/2015 11:10 TEMPLATE WORKER Psychosocial Domestic Abuse Concerns : None Behavioral Health Screen/Safety Assmt : No Mosque Preference : No qualifying data available. WILMER LOMELI LPN - 02/17/2015 11:10 TEMPLATE WORKER Advance Directive Advanced Directives : No Advance Directive Additional Information : No WILMER LOMELI LPN - 02/17/2015 11:10 TEMPLATE WORKER Educ Needs Learning Style Preference Adult Grid Patient : Printed materials, Verbal explanation Family : Printed materials, Verbal explanation WILMER LOMELI LPN - 02/17/2015 11:10 TEMPLATE WORKER Source: [facility] POWERCHART Document Id: [id number] TEMPLATE WORKER!28 LATE WORKER Miscellaneous - Wilmer Lomeli L.PJefferson - 02/17/2015 11:06 AM CST Adult [employer] Loft Worker Intake/History Adult [employer]ft Worker Intake/History Entered On: 02/17/2015 11:10 TEMPLATE WORKER Performed On: 02/17/2015 11:06 TEMPLATE WORKER by WILMER LOMELI LPN Intake Chief Complaint : physical exam, refill meds, left shoulder blade painful at times, hurts to touch as well Temperature Core : 36.7 DegC(Converted to: 98.1 DegF) Peripheral Pulse Rate : 78 /min Respiratory Rate : 16 /min Heart Rhythm : Regular Systolic Blood Pressure : 146 mmHg (HI) Diastolic Blood Pressure : 92 mmHg (>HHI) NIBP Mean : 110 mmHg BP Location : Right upper extremity Blood Pressure Cuff Size : Large SpO2 : 98 % Oxygen Therapy : Room air Height : 185 cm(Converted to: 6 ft 1 inch(es), 73 inch(es)) Actual Weight : 155.5 kg(Converted to: 342 lb 13 oz) Weight Source : Standing scale Dosing Weight Clinic : 155.5 kg Clinic BSA : 2.83 Body Mass Index : 45.43 kg/m2 WILMER LOMELI LPN - 02/17/2015 11:06 TEMPLATE WORKER General Info Information Given By : Patient Preferred Communication Mode : Verbal Languages : [place] Is Patient Female and 13-50 no hysterectomy : No WILMER LOMELI LPN - 02/17/2015 11:06 TEMPLATE WORKER Subjective Pain Symptoms : Yes WILMER LOMELI LPN - 02/17/2015 11:06 TEMPLATE WORKER Pain Scale Pain Scale Verbal 0-10 : Open WILMER LOMELI LPN - 02/17/2015 11:06 TEMPLATE WORKER Pain Pain Assessment Grid Pain 1 Location : Shoulder Laterality : Left Time Pattern : Intermittent WILMER LOMELI LPN - 02/17/2015 11:06 TEMPLATE WORKER Dependent Habits Tobacco Use/Currently Using : No Smoking Status : Former smoker Alcohol Use : Yes WILMER LOMELI LPN - 02/17/2015 11:06 TEMPLATE WORKER Source: [facility] POWERCHART Document Id: [id number] TEMPLATE WORKER!39 LATE WORKER documented in this encounter Plan of Treatment Upcoming Encounters Date Type Specialty Care Team Description 02/15/2022 Office Visit Orthopedic Surgery RavinMadyson haq D.O. [address] [place] [address] [phone] (Wo rk) documented as of this encounter Procedures Procedure Name Priority Date/Time Associated Comments Diagnosis LIPID PANEL, S Routine 02/17/2015 11:52 Results f or this AM TEMPLATE WORKER procedure are i n the results section. AUTOMATED Routine 02/17/2015 11:52 Results for this DIFFERENTIAL, B AM TEMPLATE WORKER procedure ar e in the results section. CBC WITH DIFFERENTIAL, Routine 02/17/2015 11:52 R esults for this B AM TEMPLATE WORKER procedure are i n the results section. THYROID-STIMULATING Routine 02/17/2015 11:52 Resu lts for this HORMONE-SENSITIVE AM TEMPLATE WORKER procedure are in (S-TSH) the results section. VITAMIN B12 ASSAY, S Routine 02/17/2015 11:52 Res ults for this AM TEMPLATE WORKER procedure are i n the results section. COMPREHENSIVE Routine 02/17/2015 11:52 Results fo r this METABOLIC PANEL, S/P AM TEMPLATE WORKER procedu re are in the results section. documented in this encounter Results Automated Differential (02/17/2015 11:52 AM TEMPLATE WORKER) P athologist Signature Absolute 6.16 1.70 - POWERCHART Neutrophils 7.00 109L Lymphocytes 2.14 0.90 - POWERCHART 2.90 X109L Monocytes 0.61 0.30 - POWERCHART 0.90 X109L Eosinophils 0.10 0.05 - POWERCHART 0.50 X109L Absolute 0.02 0.00 - POWERCHART Basophil 0.30 X109L Specimen Anatomical Collection Method Collection Time Receive d Time (Source) Location / / Volume Laterality Blood 02/17/2015 11:52 02/17/2015 AM TEMPLATE WORKER 11:52 AM TEMPLATE WORKER Norma E Kardoes CHARGEMASTER SPECIALIST, C.N.P. LAB BLOOD ADD-ON Performing Organization Address City/State/ZIP Code Phon e Number POWERCHART CBC with Differential (02/17/2015 11:52 AM TEMPLATE WORKER) athologist Signature Leukocytes 9.0 3.5 - 10.5 POWERCHART X109L Erythrocytes 5.21 4.32 - POWERCHART 5.72 [id number] Hemoglobin 16.7 13.5 - POWERCHART 17.5 GDL Hematocrit 48.5 38.8 - POWERCHART 50.0 MCV 93.1 81.2 - POWERCHART 95.1 FL HX RDW 12.3 11.8 - POWERCHART 15.6 Platelet Count 262 150 - 450 POWERCHART X109L HXDifferential? Auto POWERCHART Specimen (Source) Anatomical Collection Method Collection Time Re ceived Time Location / / Volume Laterality Blood 02/17/2015 11:52 AM TEMPLATE WORKER Caridad Adams APRN.N.P. LAB BLOOD ADD-ON Performing Organization Address City/[facility]/ZIP Code Phon e Number POWERCHART Thyroid-Stimulating Hormone-Sensitive (s-TSH) (02/17/2015 11:52 AM TEMPLATE WORKER) athologist Signature TSH 1.68 0.27 - 4.20 POWERCHART (Thyrotropin) MIUL Specimen (Source) Anatomical Collection Method Collection Time Re ceived Time Location / / Volume Laterality Blood 02/17/2015 11:52 AM TEMPLATE WORKER Norma Solis APRN C.N.P. LAB BLOOD ADD-ON Performing Organization Address City/[facility]/ZIP Code Phon e Number POWERCHART (ABNORMAL) CMP (Comprehensive Metabolic Panel) (02/17/2015 11:52 AM TEMPLATE WORKER) [facility] gist Method Time Signature Albumin, S 4.7 3.5 - 5.2 POWERCHART GDL Alkaline 77 40 - 130 POWERCHART Phosphatase, S UL Aspartate 85 (H) 8 - 48 UL POWERCHART Aminotransferase (AST), S Sodium, S 139 135 - 145 POWERCHART MMOLL Potassium, S 4.4 3.5 - 5.1 POWERCHART MMOLL Chloride, S 97 (L) 98 - 107 POWERCHART MMOLL CO2 Total 28 22 - 29 POWERCHART MMOLL Glucose, Fasting, S 95 70 - 99 POWERCHART MGDL BUN (Blood Urea 16 6 - 24 POWERCHART Nitrogen), S MGDL Creatinine 0.8 0.8 - 1.3 POWERCHART MGDL Calcium, Total, S 10.1 8.6 - 10.3 POWERCHART MGDL Anion Gap 14 7 - 15 POWERCHART MMOLL HXeGFR (MDRD) >60.0 >=60.0 POWERCHART MLMINSA eGFR Black/ >60.0 >=60.0 POWERCHART [place] MLMINSA Bilirubin, Total, S 0.6 <=1.2 MGDL POWERCHAR T Total Protein, S 7.4 6.3 - 7.9 POWERCHART GDL Alanine 153 (H) 7 - 55 UL POWERCHART Amniotransferase, LD Specimen (Source) Anatomical Collection Method Collection Time Re ceived Time Location / / Volume Laterality Blood 02/17/2015 11:52 AM TEMPLATE WORKER Norma Solis APRN, C.N.P. LAB BLOOD ADD-ON Performing Organization Address City/State/ZIP Code Phon e Number POWERCHART Vitamin B12 Assay (02/17/2015 11:52 AM TEMPLATE WORKER) athologist Signature Vitamin B12 577 211 - 946 POWERCHART Assay, S PGML Specimen (Source) Anatomical Collection Method Collection Time Re ceived Time Location / / Volume Laterality Blood 02/17/2015 11:52 AM TEMPLATE WORKER Norma Solis APRN, C.N.P. LAB BLOOD ADD-ON Performing Organization Address City/State/ZIP Code Phon e Number POWERCHART (ABNORMAL) Lipid Panel (02/17/2015 11:52 AM TEMPLATE WORKER) P athologist Signature Cholesterol, 250 (H) <=199 MGDL POWERCHART Total Comment: 2014 National Lipid Association recommen dations for Total Cholesterol in adults ages 18 and up: Desirable <200 mg/dL Borderline high 200-239 mg/dL High 240 mg/dL 2014 National Lipid Association recommen dations for Total Cholesterol in children ages 2 to 17. Acceptable <170 mg/dL Borderline High 170-199 mg/dL High 200 mg/dL HX HDL 47 >=40 MGDL POWERCHART Comment: 2014 National Lipid Association recommen dations for HDL-C in adults ages 18 and up: Low <40 mg/dL (Men) Low <50 mg/dL (Women) 2014 National Lipid Association recommen dations for HDL-C in children ages 2 to 17. Low <40 mg/dL Borderline Low 40-45 mg/dL Acceptable >45 mg/dL Triglycerides 112 <=149 MGDL POWERCHART Comment: 2014 National Lipid [...] assessment when triglycerides are >400mg/dL. Calculated LDL 181 (H) <=129 MGDL POWERCHART Comment: 2014 National [...] esting for FH and FDB is available throu [facility]: FH/ADH Genetic Reflex [place] (test ADHP). Acquired (non-genetic) causes of markedly increased LDL cholesterol include cholestatic liver disease due to the presence of LpX. If a genetic form of hypercholesterolemia is suspected, family studies including biochemical testing fo r lipids (total cholesterol,triglycerides, LDL cholesterol and HDL cholesterol) are recommended. ??Please contact the laboratory at or the on-line test catalog at [employer] for information about how to order these danette ts or to speak with a genetic counselor. Further interpretation would require clinical information. Specimen (Source) Anatomical Collection Method Collection Time Re ceived Time Location / / Volume Laterality Blood 02/17/2015 11:52 AM TEMPLATE WORKER Viridiana Adams APRNNJoseline. LAB BLOOD ADD-ON Performing Organization Address City/State/ZIP Code Phon e Number POWERCHART documented in this encounter Visit Diagnoses Not on filedocumented in this encounter
--- OUTSIDE RECORDS SUMMARY | 2022-01-25 11:42 | XMS_ITS | Encounter Summary ---
:1965 Author Organization [facility] Address [address] [place] [address] Care Team Providers Name Role Phone Unavailable Primary Care Provider Unavailable Encounter Details Date Type Department Care Team Description 04/12/2014 Hospital Encounter HX [facility] Jacob Chun, STEVEN, C.N.P. [address] [place] [phone] (Wo rk) Social History Tobacco [...] How often do you attend adventism or jewish More than 4 time s [...] at Date Recorded Male 03/25/2018 1:01 PM ULTRASOUND APPLICATIONS SPECIALIST documented as of this encounter Last Filed Vital Signs Vital Sign Reading Time Taken Comments Blood Pressure 134/96 04/12/2014 11:17 AM ULTRASOUND APPLICATIONS SPECIALIST Pulse 96 04/12/2014 11:17 AM ULTRASOUND APPLICATIONS SPECIALIST Temperature - - Respiratory Rate - - Oxygen Saturation - - Inhaled Oxygen Concentration - - Weight 157 kg (346 lb 5.5 oz) 04/12/2014 11:17 AM ULTRASOUND APPLICATIONS SPECIALIST Height 186 cm (6' 1.23) 04/12/2014 11:17 AM ULTRASOUND APPLICATIONS SPECIALIST Body Mass Index 45.41 04/12/2014 11:17 AM ULTRASOUND APPLICATIONS SPECIALIST documented in this encounter Progress Notes Norma Solis APRN, ViridianaNGregg - 04/12/2014 11:11 AM CST [id number] CHIEF COMPLAINT/REASON FOR VISIT Cough. HISTORY OF PRESENT ILLNESS Slim presents to clinic today. Here with concerns of cough and wheezing off and on for the past 6 days. He states he first noticed his cough 6 days ago. On Friday he began having a little more congestion and wheezing. He has otherwise been feeling well, however. He does feel that it is slightly improving but he has been up at night coughing and congested. He has had no fevers. No shortness of breath. Some mild fatigue and body aches. He has had no other sick contacts but does have his father's this week and would like to take any medication for relief throughout the and wake service.He has otherwise been feeling well up until this point. MEDICATIONS Hydrochlorothiazide 50 mg daily. Protonix as needed. He has not been taking the metoprolol he states. ALLERGIES No known allergies. PAST MEDICAL/SURGICAL HISTORY Significant for: Hypertension. Hyperglycemia. Hyperlipidemia. Esophageal reflux. Morbid obesity. SYSTEMS REVIEW As stated above. No chest pain. No problems with bowel or bladder habits. No rashes. He denies any worsening dyspnea on exertion or orthopnea. SOCIAL HISTORY He is a nonsmoker. VITAL SIGNS Temp 36, heart rate 96, blood pressure 134/96, oxygen 95% on room air, height is 186 cm, weight is 157.1 kg up 7 kg since last office visit, BMI is 45. PHYSICAL EXAMINATION GENERAL: Flo is alert and oriented. He is calm, cooperative and pleasant throughout our exam. Appears to be in no acute distress. HEENT: Conjunctivae clear. Tympanic membranes are pearly bond with regular cone of light. Oropharynxpink and moist with normal tonsils. NECK: Supple. No masses or lymphadenopathy. LUNGS: Exhibit expiratory wheezes bilaterally. These are mild. There are no rhonchi, rales or associated crackles. He breathes with reasonable effort. Coughs on and off throughout our exam. CARDIAC: Regular rate and rhythm. SKIN: No rashes. EXTREMITIES: No significant peripheral edema. IMPRESSION/REPORT/PLAN Upper respiratory infection/acute bronchitis. Discussed most likely viral etiology of this as patient's symptoms are improving day to day. No treatment at this time is indicated for antibiotic. We willhelp him treat symptoms with a ProAir HFA inhaler to be used as needed as well as benzonatate Perlesto be taken as needed for cough. He can also use honey or cool mist humidifier. He should follow up if symptoms are not improving or worsening or if he is developing any fever, shortness of breath, etc. I advised him to follow up for an overall checkup and fasting labs within the next month or 2 once he is feeling better. Regarding his blood pressure and cholesterol, etc. he should come fasting for th is. Patient understood and agreed with this plan. Recommended flu vaccine at the pharmacy. Viridiana GonzalezN.P./pos Electronically Signed By: NORMA SOLIS On: 05/10/2014 02:40 PM Source: [facility] MHSDOLBEYNONRADSYS Document Id: [id number] ASOUND APPLICATIONS SPECIALIST documented in this encounter Miscellaneous Notes Miscellaneous - Norma Solis APRN, C.N.P. - 04/12/2014 12:12 PM ULTRASOUND APPLICATIONS SPECIALIST Ambulatory Patient Summary [address] [id number] Visit Information Name: SAAD MURRAY [facility] Number: [id number] Current Date: 04/12/2014 12:12:27 Physicians Attending Provider: NORMA SOLIS Primary Care Provider: NORMA SOLIS SAAD MURRAY has been given the following [...] Take Indications/Special Instructions/Comments/Notes for Patient Medication Changes/Routing albuterol (ProAir HFA 90 mcg/inh inhalation aerosol) 2 puff(s), Inhalation, four times a day as needed for cough/wheezing New Routed to [address] [address] benzonatate (benzonatate 100 mg oral capsule) 1 cap, Oral, three times a day as needed for Cough NewRouted to [address] [address] hydrochlorothiazide (hydrochlorothiazide 50 mg oral tablet) 1 Tablet(s), Oral, once a day for blood pressure and fluid in ankles. metoprolol (metoprolol succinate 50 mg oral tablet, extended release) 1 Tablet(s), Oral, once a day for blood pressure and heart palpitations, tingling. pantoprazole (Protonix 40 mg oral delayed release tablet) 1 Tablet(s), Oral, once a day Stop Taking the Following Medications: Medication list as of 04-12-14 12:12 Attention: If you have any medications at [...] of emergency. Electronically Signed By: NORMA SOLIS Signed On:12-APR-2014 12:12:21 Your Allergies & Intolerances Substance Reaction Symptoms Category Comments No Known Allergies Drug Your Problem List Problem Status Onset Comments HTN [Hypertension] Active GERD [Gastroesophageal reflux disease] Active Hyperlipidemia NOS Active Hyperglycemia Active Your Upcoming Appointments Date Time Location Provider No Appointments found Attention: Contact your local Clinic if further appointment detail needed. Your Goals/Additional instructions: Source: [facility] POWERCHART Document Id: [id number] ASOUND APPLICATIONS SPECIALIST Miscellaneous - Norma Solis APRN C.N.PNikhil - 04/12/2014 12:12 PM ULTRASOUND APPLICATIONS SPECIALIST Ambulatory Discharge Medication List [address] [id number] Visit Information Name: HENOKISAACFlori SAAD Jarad [facility] Number: [id number] Visit Date: 04/12/2014 12:12:25 Attending Provider: NORMA SOLIS Primary Care Provider: NORMA SOLIS FLO MURRAYOTHY Jarad has been given the following list of medications: Your Medications It is important to take your medications as directed. Use a pill box or chart to help remind you to take your medications. Please let your doctor or nurse know if you have problems taking your medications. Medication/Strength How to Take Indications/Special Instructions/Comments/Notes for Patient Medication Changes/Routing albuterol (ProAir HFA 90 mcg/inh inhalation aerosol) 2 puff(s), Inhalation, four times a day as needed for cough/wheezing New Routed to [address] [address] benzonatate (benzonatate 100 mg oral capsule) 1 cap, Oral, three times a day as needed for Cough NewRouted to [address] [address] hydrochlorothiazide (hydrochlorothiazide 50 mg oral tablet) 1 Tablet(s), Oral, once a day for blood pressure and fluid in ankles. metoprolol (metoprolol succinate 50 mg oral tablet, extended release) 1 Tablet(s), Oral, once a day for blood pressure and heart palpitations, tingling. pantoprazole (Protonix 40 mg oral delayed release tablet) 1 Tablet(s), Oral, once a day Stop Taking the Following Medications: Medication list as of 04-12-14 12:12 Attention: If you have any medications at [...] of emergency. Electronically Signed By: NORMA SOLIS ELECTRICAL TECHNOLOGY INSTRUCTOR Signed On:12-APR-2014 12:12:21 Additional Information: Source: [facility] POWERCHART Document Id: [id number] ASOUND APPLICATIONS SPECIALIST Miscellaneous - Jeannette Gleason L.P.N. - 04/12/2014 11:17 AM ULTRASOUND APPLICATIONS SPECIALIST Adult Rn Examiner Intake/History Adult Rn Examiner Intake/History Entered On: 04/12/2014 11:23 ULTRASOUND APPLICATIONS SPECIALIST Performed On: 04/12/2014 11:17 ULTRASOUND APPLICATIONS SPECIALIST by JEANNETTE GLEASON LPN Intake Chief Complaint : cough Onset of Symptoms : 1 week Ambulatory Intake Additional Information : phlegn white cloudy no fever alot of wheezing keeps pt up at night Temperature Core : 36.0 DegC(Converted to: 96.8 DegF) (LOW) Peripheral Pulse Rate : 96 /min Systolic Blood Pressure : 134 mmHg Diastolic Blood Pressure : 96 mmHg (>HHI) NIBP Mean : 109 mmHg BP Location : Right upper extremity Blood Pressure Cuff Size : Large SpO2 : 95 % Oxygen Therapy : Room air Height : 186 cm(Converted to: 6 ft 1 inch(es), 73 inch(es)) Actual Weight : 157.1 kg(Converted to: 346 lb 6 oz) Weight Source : Standing scale Dosing Weight Clinic : 157.1 kg Clinic BSA : 2.85 Body Mass Index : 45.41 kg/m2 JEANNETTE GLEASON LPN - 04/12/2014 11:17 ULTRASOUND APPLICATIONS SPECIALIST General Info Information Given By : Patient Languages : Swedish Is Patient Female and 13-50 no hysterectomy : No JEANNETTE GLEASON LPN - 04/12/2014 11:17 ULTRASOUND APPLICATIONS SPECIALIST Subjective Pain Symptoms : No JEANNETTE GLEASON LPN - 04/12/2014 11:17 ULTRASOUND APPLICATIONS SPECIALIST Dependent Habits Tobacco Use/Currently Using : No Smoking Status : Former smoker JEANNETTE GLEASON LPN - 04/12/2014 11:17 ULTRASOUND APPLICATIONS SPECIALIST Tobacco Use Grid Last Use : > 20 years [employer] JEANNETTE MARTÍNEZ MILITARY TECHNOLOGY MANAGER - 04/12/2014 11:17 ULTRASOUND APPLICATIONS SPECIALIST ID Screen Drug Resistant Organism : No Travel Within Last 21 Days : No JEANNETTE GLEASON MILITARY TECHNOLOGY MANAGER - 04/12/2014 11:17 ULTRASOUND APPLICATIONS SPECIALIST Source: [facility] POWERCHART Document Id: [id number] ULTRASOUND APPLICATIONS SPECIALIST!35 ASOUND APPLICATIONS SPECIALIST documented in this encounter Plan of Treatment Upcoming Encounters Date Type Specialty Care Team Description 02/15/2022 Office Visit Orthopedic Surgery Madyson Rosa, D.ONikhil [address] [place] [address] [phone] (Wo rk) documented as of this encounter Visit Diagnoses Not on filedocumented in this encounter
[2022-01-25 11:55] LABS: Basophils Percent Auto 0.3 % (0.0-3.0); Eosinophils Percent Auto 0.3 % (0.0-7.0); Hematocrit 43.9 % (37.0-53.0); Hemoglobin* 14.8 gm/dL (13.5-17.5); Immature Granulocytes Abs Auto 0.01 K/uL (0.00-0.30); Lymphocytes Percent Auto 4.5 % (20-44); Mean Corpuscular HGB Conc 34 gm/dL (32-36); Mean Corpuscular Hemoglobin 31 pg (26-34); Mean Corpuscular Volume 93 fL (80-100); Neutrophils Percent Auto 88.6 % (42.0-72.0); Platelet Count* 63 K/uL (140-440); RDW Coefficient of Variation % 13.2 % (11.5-15.5); Red Blood Count 4.72 m/uL (4.30-5.90); White Blood Count* 3.82 K/uL (4.50-11.00)
[2022-01-25 11:56] LABS: Lactate* 3.5 mmol/L (0.5-1.9)
[2022-01-25 11:57] LABS: Slide Review Reflex No
[2022-01-25 12:22] LABS: Troponin, Point-of-Care* 0.01 ng/ml (0.01-0.04)
[2022-01-25] MEDS: dilTIAZem 5 MG/ML inj 25 MG IVP (12:25)
[2022-01-25 12:26] LABS: Albumin* 4.5 g/dL (3.3-5.0); Chloride* 93 mmol/L (96-114)
[2022-01-25 12:27] LABS: Sodium* 136 mmol/L (135-149)
[2022-01-25 12:29] LABS: Alkaline Phosphatase* 133 U/L (40-150); Aspartate Amino Transferase* 521 U/L (12-35); Bilirubin Direct* 1.4 mg/dL (0.0-0.5); Bilirubin Total* 2.7 mg/dL (0.1-1.5); Blood Urea Nitrogen* 14 mg/dL (7-30); Creatinine* 0.7 mg/dL (0.5-1.5); Est. Creatinine Clearance* 136.34; Estimated Glomerular Filt Rate 110 ml/min; Total Protein* 7.5 g/dL (6.0-8.3)
[2022-01-25 12:30] LABS: Alanine Aminotransferase* 142 U/L (4-50); Calcium* 8.9 mg/dL (8.4-10.6); Glucose* 163 mg/dL (60-115)
[2022-01-25 12:33] LABS: PCR FLU A Negative PCR FLU A (Negative); PCR FLU B Negative PCR FLU B (Negative)
[2022-01-25 12:33] LABS: Acetaminophen* < 10.0 ug/mL (10.0-30.0); C Reactive Protein* < 0.5 mg/dL (0.5-1.0); Ethanol* < 0.01 % (0.01-0.03); Salicylate* < 1.0 mg/dL (1.0-10)
--- NOTE | 2022-01-25 12:40 | CRLHL7_ITS ---
For Patients: As a result of the Century Cures Act, medical imaging exams and procedure reports are released immediately into your electronic medical record. You may view this report before your referring provider. If you have questions, please contact your health care provider. INDICATION: Elevated LFTs. TECHNIQUE: Ultrasound abdomen limited. Sonographic images of the right upper quadrant were obtained using bond-scale and color Doppler images. COMPARISON: None. FINDINGS: Limited evaluation due to patient discomfort. : Liver: Heterogeneous appearance of the liver, with mildly increased echotexture. No suspicious masses. No intrahepatic biliary dilation. Gallbladder: No stones or sludge. Normal wall thickness. No pericholecystic fluid. Common bile duct: 6 mm. Pancreas: Not well seen due to overlying bowel gas. Right kidney: Normal in size. Normal echotexture and cortex. No suspicious masses, stones, or hydronephrosis. Vasculature: Proximal abdominal aorta and IVC are unremarkable. IMPRESSION: Heterogeneous liver with increased echotexture suggestive of steatosis. No other sonographic abnormality, within limitations of exam. Dictated by Selvin Johnson MD @ 01/25/2022 2:30:01 PM (Electronically Signed)
[2022-01-25 12:46] LABS: Carbon Dioxide* 27 mmol/L (20-32)
[2022-01-25 12:53] LABS: Appearance Urine Clear (Clear); Bilirubin Urine 1+ (Negative); Blood Urine 1+ (Negative); Color Urine Yellow (Yellow); Glucose Urine Trace (Negative); Ketones Urine 2+ (Negative); Leukocyte Esterase Urine Negative (Negative); Nitrite Urine Negative (Negative); Protein Urine 2+ (Negative)
[2022-01-25 12:53] LABS: SARS PCR* Negative SARS-CoV-2 (Negative)
[2022-01-25 13:02] LABS: Amphetamine Screen Urine Negative (Negative); Barbiturate Screen Urine Negative (Negative); Benzodiazepines Screen Urine Negative (Negative); Cannabinoid Screen Urine Negative (Negative); Cocaine Screen Urine Negative (Negative); Methadone Screen Urine Negative (Negative); Methamphetamines Screen Urine Negative (Negative); Opiate Screen Urine Negative (Negative); Oxycodone Screen Urine Negative (Negative); Phencyclidine Screen Urine Negative (Negative); Tricyclic Antidepressant Urine Negative (Negative)
[2022-01-25 13:05] LABS: RBC Urine 0-2 (0-2); WBC Urine 0-2 (0-5)
[2022-01-25 13:12] LABS: Magnesium* 1.2 mg/dL (1.5-2.6)
[2022-01-25] MEDS: dilTIAZem HCL 125 MG in 0.9 % SODIUM CHLORIDE 100 ml 100 ML IVPB (13:24)
--- NOTE | 2022-01-25 13:24 | ED.NURSE ---
Diltiazem infusion started @ 5mg/hour. Per MD, target HR for pt is 100-110 bpm.
[2022-01-25 13:33] LABS: INR 0.95 (0.91-1.10); Prothrombin Time 13.3 Seconds
--- NOTE | 2022-01-25 14:15 | ED.NURSE ---
Diltiazem drip titrated up to 10mg/hr. MD updated.
[2022-01-25] MEDS: LORazepam 2 MG/ML inj 1 MG IVP ×2 (14:38→15:29)
--- NOTE | 2022-01-25 14:44 | ED.NURSE ---
1438 patient is having a seizure and informed Dr. Harrison of this and given ativan 1mg IVP now. patient had bit the tongue as blood is running out of the left side of the mouth. Dr. Harrison is in the room talking to patient as is confused and is waking up. seizure lasted about 1-2 minutes.
--- NOTE | 2022-01-25 15:05 | ED.NURSE ---
Pt still mildly confused and impulsive post-seizure. Redirectable with verbal commands. 2nd IV line started in pt R FA. Pt assisted to void into urinal in bed. Voids ~200 mLs.
[2022-01-25] MEDS: MAGNESIUM SULFATE 2 GM/50 ML PIGGYBACK IVPB (15:14)
--- NOTE | 2022-01-25 15:34 | ED.NURSE ---
Diltiazem drip titrated up to 15mg/hr. aware.
--- NOTE | 2022-01-25 15:41 | ED.NURSE ---
[facility] report no ICU bed availability in system.
[2022-01-25] MEDS: 0.9 % SODIUM CHLORIDE 1000 ml 1,000 ML 150 ML IV ×2 (15:59→21:33)
--- NOTE | 2022-01-25 16:20 | ED.NURSE ---
Pt O2 sats persistently ~88-89%. 2L O2 NC reapplied. notified.
[2022-01-25] MEDS: METOPROLOL TARTRATE 25 MG TABLET 50 MG PO (17:58)
--- NOTE | 2022-01-25 18:12 | ED.NURSE ---
Pt satting well in high 90's%. O2 DC'd.
--- NOTE | 2022-01-25 18:20 | ED.NURSE ---
Report called to M/S RN.
--- NOTE | 2022-01-25 18:42 | P.IMHP_ITS ---
Hospitalist- H&P: HPI History of Present Illness Date Seen: 01/25/22 Chief complaint: Syncope Narrative: Saad Murray is a 56 year old male admitted through the emergency department with onset of for seizure today. Patient was in the liquor store when he was observed to have a generalized tonic clonic seizure lasting 3 or 4 minutes. Paramedics were called and found to me quite confused/postictal. He was only able to verbally communicate by the time he got to the emergency room. He did bite the tip of his tongue as well. No loss of bowel or bladder control. Denies a history of previous seizures. He drinks heavily. Minimum of a case of 24 beers per weekend plus occasional hard liquor. Says he has never had a problem with alcohol withdrawal or alcohol withdrawal seizures in the past. He was also found to be in atrial fibrillation with RVR. He does note that for the last month or so he has been more short of breath. No chest pain. He is not aware of palpitations or rapid or irregular heartbeats. No syncope. No history of bleeding or blood clotting problems. No previous heart history. He does have hypertension. Review of Systems Narrative: He reports that he had meniscal surgery on his knee a couple months ago. He uses recovery is been slow. Because of this he has not been working. 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 He reports this morning that he also had nausea and upset stomach and did not eat much. He he had an emesis this morning which was nonbloody. No fever. No cough. No cold or sore throat symptoms. Nausea vomiting this morning but no significant other GI symptoms recently. Bowel function is normal. He occasionally has diarrhea or constipation. He has not had blood or melena. No urinary problems. No history of bleeding or clotting. [facility] Medical History (Updated 01/25/22 @ 18:56 by Stoney Zuniga MD) Fatty liver due to alcoholism Gastroesophageal reflux disease Hyperlipidemia Hypertension Hyponatremia Morbid obesity Surgical History (Updated 01/25/22 @ 18:48 by Stoney Zuniga MD) History of umbilical hernia repair History of vasectomy Status post lateral meniscus repair Family History (Updated 01/25/22 @ 18:48 by Stoney Zuniga MD) Father Parkinsons disease Social History (Updated 01/25/22 @ 18:49 by Stoney Zuniga MD) Narrative: 56-year-old male lives with his adult son. 6 years ago when his of cancer. 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 Code status is full. His daughter is healthcare power of disability attorney. He does not smoke. He does not use recreational drugs. Heavy alcohol use with a case of beer plus hard alcohol every week Meds Home Medications and Allergies Home Medications Medication Instructions Recorded Confirmed Type atorvastatin 20 mg tablet 20 mg PO DAILY 01/25/22 01/25/22 History lisinopril 20 mg tablet 20 mg PO DAILY 01/25/22 01/25/22 History metoprolol succinate 25 mg 25 mg PO DAILY 01/25/22 01/25/22 History tablet,extended release 24 hr sertraline 100 mg tablet 100 mg PO Q24H 01/25/22 01/25/22 History Allergies Allergy/AdvReac Type Severity Reaction Status Date / Time No Known Drug Allergies Allergy Verified 01/25/22 10:56 Exam Narrative: Exam Narrative: He is alert and appears in no distress. Speech is slow. He is struggling to answer questions and has delays in giving his answers. He is oriented to his circumstances otherwise. He does not have a significant recall of the events of the morning. Head is without obvious trauma. Eyes normal. Pupils equal round reactive to light. Extraocular movements are full. No nystagmus. No facial asymmetry. Oropharynx with small airway. Dry mucous membranes. Trauma to the tip of his tongue noted. Neck is supple without mass or adenopathy. No tenderness. Respirations are clear to auscultation without wheezing, rales, rhonchi. Cardiovascular: S1, S2, irregular tachycardia. No murmur gallop or rub. Abdomen: Bowel sounds active. Abdomen is soft without tenderness or mass. External genitalia normal. Extremities with intact pulses and sensation. One to 2+ edema in both legs. Intact pedal pulses. He moves all 4 extremities well. Const: Vital Signs, click to edit/add: Vital Signs - 24 hr 01/25/22 10:47 01/25/22 11:04 01/25/22 11:05 Temperature 97.8 F Pulse Rate 160 H Pulse Rate [Right Pulse Oximeter] 160 H Respiratory Rate 20 Blood Pressure 126/88 Blood Pressure [Ri ght Upper Arm] 123/79 Pulse Oximetry 94 92 91 Oxygen Delivery Me thod Room Air Oxygen Flow Rate 01/25/22 11:05 01/25/22 11:15 01/25/22 11:17 Temperature Pulse Rate 148 H 139 H 144 H Pulse Rate [Right Pulse Oximeter] Respiratory Rate Blood Pressure 140/100 H Blood Pressure [Ri ght Upper Arm] Pulse Oximetry 93 94 93 Oxygen Delivery Me thod Oxygen Flow Rate 01/25/22 11:27 01/25/22 11:30 01/25/22 11:31 Temperature Pulse Rate 125 H 127 H 141 H Pulse Rate [Right Pulse Oximeter] Respiratory Rate Blood Pressure 127/80 137/81 Blood Pressure [Ri ght Upper Arm] Pulse Oximetry 93 90 89 Oxygen Delivery Me thod Oxygen Flow Rate 01/25/22 11:37 01/25/22 11:44 01/25/22 11:45 Temperature Pulse Rate 123 H 124 H 135 H Pulse Rate [Right Pulse Oximeter] Respiratory Rate Blood Pressure 116/84 118/92 H Blood Pressure [Ri ght Upper Arm] Pulse Oximetry 89 90 91 Oxygen Delivery Me thod Oxygen Flow Rate 01/25/22 11:47 01/25/22 12:00 01/25/22 12:02 Temperature Pulse Rate 139 H 129 H 137 H Pulse Rate [Right Pulse Oximeter] Respiratory Rate Blood Pressure 133/79 137/75 Blood Pressure [Ri ght Upper Arm] Pulse Oximetry 90 90 89 Oxygen Delivery Me thod Oxygen Flow Rate 01/25/22 12:16 01/25/22 12:17 01/25/22 12:24 Temperature Pulse Rate 129 H 124 H 118 H Pulse Rate [Right Pulse Oximeter] Respiratory Rate Blood Pressure 117/62 Blood Pressure [Ri ght Upper Arm] Pulse Oximetry 94 93 93 Oxygen Delivery Me thod Oxygen Flow Rate 01/25/22 12:30 01/25/22 12:31 01/25/22 12:32 Temperature Pulse Rate 110 H 119 H 108 H Pulse Rate [Right Pulse Oximeter] Respiratory Rate Blood Pressure 128/77 Blood Pressure [Ri ght Upper Arm] Pulse Oximetry 92 94 92 Oxygen Delivery Me thod Oxygen Flow Rate 01/25/22 12:45 01/25/22 13:00 01/25/22 13:04 Temperature Pulse Rate 146 H 130 H 122 H Pulse Rate [Right Pulse Oximeter] Respiratory Rate Blood Pressure Blood Pressure [Ri ght Upper Arm] Pulse Oximetry 88 95 95 Oxygen Delivery Me thod Oxygen Flow Rate 01/25/22 13:08 01/25/22 13:09 01/25/22 13:15 Temperature Pulse Rate 119 H 117 H 129 H Pulse Rate [Right Pulse Oximeter] Respiratory Rate Blood Pressure 138/106 H Blood Pressure [Ri ght Upper Arm] Pulse Oximetry 95 94 95 Oxygen Delivery Me thod Oxygen Flow Rate 01/25/22 13:17 01/25/22 13:30 01/25/22 13:32 Temperature Pulse Rate 128 H 119 H 124 H Pulse Rate [Right Pulse Oximeter] Respiratory Rate Blood Pressure 138/118 H 162/106 H Blood Pressure [Ri ght Upper Arm] Pulse Oximetry 95 94 94 Oxygen Delivery Me thod Oxygen Flow Rate 01/25/22 13:45 01/25/22 13:47 01/25/22 14:00 Temperature Pulse Rate 118 H 135 H 133 H Pulse Rate [Right Pulse Oximeter] Respiratory Rate Blood Pressure 153/98 H Blood Pressure [Ri ght Upper Arm] Pulse Oximetry 94 93 93 Oxygen Delivery Me thod Oxygen Flow Rate 01/25/22 14:02 01/25/22 14:15 01/25/22 14:17 Temperature Pulse Rate 123 H 104 H 122 H Pulse Rate [Right Pulse Oximeter] Respiratory Rate Blood Pressure 121/59 L 166/87 H Blood Pressure [Ri ght Upper Arm] Pulse Oximetry 93 92 93 Oxygen Delivery Me thod Oxygen Flow Rate 01/25/22 14:18 01/25/22 14:30 01/25/22 14:32 Temperature Pulse Rate 128 H 109 H 127 H Pulse Rate [Right Pulse Oximeter] Respiratory Rate Blood Pressure 149/116 H Blood Pressure [Ri ght Upper Arm] Pulse Oximetry 94 94 92 Oxygen Delivery Me thod Oxygen Flow Rate 01/25/22 14:45 01/25/22 14:46 01/25/22 14:47 Temperature Pulse Rate 134 H 130 H 145 H Pulse Rate [Right Pulse Oximeter] Respiratory Rate 20 20 16 Blood Pressure 153/130 H 174/156 H Blood Pressure [Ri ght Upper Arm] Pulse Oximetry 98 96 98 Oxygen Delivery Me thod Oxygen Flow Rate 01/25/22 14:50 01/25/22 14:51 01/25/22 15:01 Temperature Pulse Rate 130 H 133 H 113 H Pulse Rate [Right Pulse Oximeter] Respiratory Rate 25 H Blood Pressure 190/106 H Blood Pressure [Ri ght Upper Arm] Pulse Oximetry 94 93 93 Oxygen Delivery Me thod Oxygen Flow Rate 01/25/22 15:06 01/25/22 15:09 01/25/22 15:15 Temperature Pulse Rate 145 H 116 H 115 H Pulse Rate [Right Pulse Oximeter] Respiratory Rate Blood Pressure 134/94 H Blood Pressure [Ri ght Upper Arm] Pulse Oximetry 93 92 93 Oxygen Delivery Me thod Oxygen Flow Rate 01/25/22 15:17 01/25/22 15:30 01/25/22 15:32 Temperature Pulse Rate 135 H 108 H 134 H Pulse Rate [Right Pulse Oximeter] Respiratory Rate Blood Pressure 139/95 H 128/88 Blood Pressure [Ri ght Upper Arm] Pulse Oximetry 89 91 88 Oxygen Delivery Me thod Oxygen Flow Rate 01/25/22 15:45 01/25/22 15:47 01/25/22 15:48 Temperature Pulse Rate 132 H 107 H 115 H Pulse Rate [Right Pulse Oximeter] Respiratory Rate Blood Pressure 150/98 H Blood Pressure [Ri ght Upper Arm] Pulse Oximetry 90 91 90 Oxygen Delivery Me thod Oxygen Flow Rate 01/25/22 16:00 01/25/22 16:03 01/25/22 16:15 Temperature Pulse Rate 124 H 128 H 137 H Pulse Rate [Right Pulse Oximeter] Respiratory Rate Blood Pressure 149/86 H Blood Pressure [Ri ght Upper Arm] Pulse Oximetry 91 89 94 Oxygen Delivery Me thod Oxygen Flow Rate 01/25/22 16:18 01/25/22 16:30 01/25/22 16:32 Temperature Pulse Rate 137 H 100 117 H Pulse Rate [Right Pulse Oximeter] Respiratory Rate Blood Pressure 130/70 135/92 H Blood Pressure [Ri ght Upper Arm] Pulse Oximetry 89 93 92 Oxygen Delivery Me thod Nasal Cannula Nasal Cannula Oxygen Flow Rate 2 2 01/25/22 16:45 01/25/22 16:47 01/25/22 16:48 Temperature Pulse Rate 98 92 91 Pulse Rate [Right Pulse Oximeter] Respiratory Rate Blood Pressure 150/96 H Blood Pressure [Ri ght Upper Arm] Pulse Oximetry 93 93 94 Oxygen Delivery Me thod Nasal Cannula Nasal Cannula Nasal Cannula Oxygen Flow Rate 2 2 2 01/25/22 17:00 01/25/22 17:02 01/25/22 17:03 Temperature Pulse Rate 90 98 101 H Pulse Rate [Right Pulse Oximeter] Respiratory Rate Blood Pressure 141/117 H Blood Pressure [Ri ght Upper Arm] Pulse Oximetry 94 93 94 Oxygen Delivery Me thod Nasal Cannula Nasal Cannula Nasal Cannula Oxygen Flow Rate 2 2 2 01/25/22 17:15 01/25/22 17:17 01/25/22 17:30 Temperature Pulse Rate 98 85 100 Pulse Rate [Right Pulse Oximeter] Respiratory Rate Blood Pressure 113/87 Blood Pressure [Ri ght Upper Arm] Pulse Oximetry 97 94 94 Oxygen Delivery Me thod Nasal Cannula Nasal Cannula Nasal Cannula Oxygen Flow Rate 2 2 2 01/25/22 17:33 01/25/22 17:34 01/25/22 17:45 Temperature Pulse Rate 94 109 H 104 H Pulse Rate [Right Pulse Oximeter] Respiratory Rate Blood Pressure 115/94 H Blood Pressure [Ri ght Upper Arm] Pulse Oximetry 95 94 96 Oxygen Delivery Me thod Nasal Cannula Nasal Cannula Nasal Cannula Oxygen Flow Rate 2 2 2 01/25/22 17:48 01/25/22 18:00 01/25/22 18:03 Temperature Pulse Rate 109 H 95 88 Pulse Rate [Right Pulse Oximeter] Respiratory Rate Blood Pressure 162/108 H 157/112 H Blood Pressure [Ri ght Upper Arm] Pulse Oximetry 96 94 93 Oxygen Delivery Me thod Nasal Cannula Oxygen Flow Rate 2 01/25/22 18:04 01/25/22 18:15 Temperature Pulse Rate 100 92 Pulse Rate [Right Pulse Oximeter] Respiratory Rate Blood Pressure Blood Pressure [Ri ght Upper Arm] Pulse Oximetry 93 94 Oxygen Delivery Me thod Oxygen Flow Rate Hospitalist - H&P: Result Labs Labs: Short CBC 01/25/22 Range/Units 11:42 WBC 3.82 L (4.50-11.00) K/uL Hgb 14.8 (13.5-17.5) gm/dL Hct 43.9 (37.0-53.0) % Plt Count 63 L (140-440) K/uL BMP 01/25/22 11:42 Sodium 136 Potassium 4.0 Chloride 93 L Carbon Dioxide 27 BUN 14 Creatinine 0.7 Glucose 163 H Calcium 8.9 Liver Function 01/25/22 Range/Units 11:42 Total Bilirubin 2.7 H (0.1-1.5) mg/dL Direct Bilirubin 1.4 H (0.0-0.5) mg/dL AST 521 H (12-35) U/L ALT 142 H (4-50) U/L Alkaline Phosphatase 133 (40-150) U/L Albumin 4.5 (3.3-5.0) g/dL Urine 01/25/22 Range/Units 12:40 Urine Color Yellow (Yellow) Urine Appearance Clear (Clear) Urine pH 8.0 (5.0-8.5) Ur Specific [place] 1.020 (1.000-1.030) Urine Protein 2+ A (Negative) Urine Glucose (UA) Trace A (Negative) Assessment and Plan Assessment and plan (1) Alcohol withdrawal seizure: Status: Acute Assessment and Plan: Phenobarb and lorazepam for alcohol withdrawal syndrome. (2) Atrial fibrillation with RVR: Problem comment: Suspect alcohol related heart disease as the cause. Unknown duration but possibly up to a month. Diltiazem drip and wean to metoprolol if possible. A nticoagulation. Echocardiogram. Outpatient sleep study. Outpatient alcohol treatment. Status: Acute (3) Morbid obesity: Status: Acute (4) Fatty liver due to alcoholism: Problem comment: Outpatient alcohol treatment. Labs consistent with alcohol cause. AST markedly elevated compared ALT. Elevated bilirubin. Low platelets. Status: Acute Plan Admit to CCU for treatment of alcohol withdrawal seizures and alcohol withdrawal and treatment of AFib with RVR on diltiazem drip. Total time spent in critical care evaluation and treatment is 90 minutes.
--- NOTE | 2022-01-25 19:49 | PC.NURSE ---
End of Shift: Patient admitted to CCU2 approx 183. Tele showing A-fib with heart rate in the 70s-80s. Updated MD and Cardizem drip titrated down and off at 1930 and heart rate continues to be in the 70s-80s. Denies pain.
[2022-01-25] MEDS: THIAMINE 100 MG TABLET PO (19:51)
[2022-01-25] MEDS: PHENobarbitaL 32.4 MG TABLET 129.6 MG PO (20:33)
[2022-01-25] MEDS: APIXABAN 5 MG TABLET PO (20:33)
[2022-01-25] MEDS: METOPROLOL TARTRATE 50 MG TABLET PO (21:31)
[2022-01-26] VITALS (16 sets, daily range): BP systolic 110–153; BP diastolic 80–95; PULSE 80–136; RESP 16–24; TEMP 36.6–37.3; O2SAT 93–96
[2022-01-26] MEDS: METOPROLOL TARTRATE 50 MG TABLET PO ×4 (01:54→15:29)
[2022-01-26] MEDS: 0.9 % SODIUM CHLORIDE 1000 ml 1,000 ML 150 ML IV ×3 (03:59→17:20)
--- NOTE | 2022-01-26 04:28 | PC.NURSE ---
PT Rested well this night. Had to placed on 2L NC to maintain sats while sleeping. Tele showing Afib. Pt oriented x3. Reporting zero pain. No Sign of Seizure. Clear to answer sharply. Up in chair this morning drinking coffee. CIWA unremarkable. Up SBA with Walker. No Headache. Voiding. Dilt drip did not have to restart. HR controlled with oral Metop. No N/V.
[2022-01-26] MEDS: SERTRALINE 100 MG TABLET PO (09:01)
[2022-01-26] MEDS: THIAMINE 100 MG TABLET PO (09:01)
[2022-01-26] MEDS: APIXABAN 5 MG TABLET PO (09:02)
[2022-01-26] MEDS: METOPROLOL SUCCINATE (XL) 100 MG TAB PO (09:02)
[2022-01-26] MEDS: ATORVASTATIN 10 MG TABLET 20 MG PO (09:02)
[2022-01-26] MEDS: PHENobarbitaL 32.4 MG TABLET 259.2 MG PO (14:39)
--- NOTE | 2022-01-26 15:20 | PM.IMPN1 ---
Progress Note: A&P Assessment and plan (1) Alcohol withdrawal seizure: Problem details: Loaded with phenobarbital. No evidence of seizure recurrence. No evidence of withdrawal overnight. Concern for onset of some withdrawal this afternoon. Status: Acute (2) Atrial fibrillation with RVR: Problem details: Suspect alcohol related heart disease as the cause. Unknown duration but possibly up to a month. Managing with oral metoprolol. Anticoagulation. Echocardiogram unremarkable. Outpatient sleep study. Outpatient alcohol treatment. Status: Acute (3) Morbid obesity: Status: Acute (4) Fatty liver due to alcoholism: Problem details: Outpatient alcohol treatment. Labs consistent with alcohol cause. AST markedly elevated compared ALT. Elevated bilirubin. Low platelets. Status: Acute Time Spent With Patient Total time spent: Total time spent today is 40 minutes, 30 minutes in coordination of care and discussing with patient and family ongoing evaluation management of AFib with RVR and alcohol withdrawal. Subjective Date Seen: 01/26/22 Interval history: 56-year-old male seen in followup of hospitalization for alcohol withdrawal seizure, atrial fibrillation with rapid ventricular response and alcoholic liver disease. He did well overnight. He slept well. He reports no no anxiety, dyspnea, chest pain, abdominal pain, nausea today. He did well until later this morning when he began to exhibit a little bit of confusion. His heart rate has been under fair control with oral metoprolol though he continues to have heart rates up to 110-120 at times at rest. He is asymptomatic with this. He is walking with a walker due to prior knee problems related to knee surgery in October. Exam Narrative: Exam Narrative: He is alert, pleasant in no distress. No tremulousness. No anxiety. Respirations are clear to auscultation. Cardiovascular S1, S2, irregular tachycardia. Abdomen is soft without tenderness or mass. . Const: Vital Signs, click to edit/add: Vital Signs - 24 hr 01/25/22 15:30 01/25/22 15:32 01/25/22 15:45 Temperature Pulse Rate 108 H 134 H 132 H Pulse Rate [Left A pical] Respiratory Rate Blood Pressure 128/88 Blood Pressure [Le ft Arm] Pulse Oximetry 91 88 90 Oxygen Delivery Me thod Oxygen Flow Rate 01/25/22 15:47 01/25/22 15:48 01/25/22 16:00 Temperature Pulse Rate 107 H 115 H 124 H Pulse Rate [Left A pical] Respiratory Rate Blood Pressure 150/98 H Blood Pressure [Le ft Arm] Pulse Oximetry 91 90 91 Oxygen Delivery Me thod Oxygen Flow Rate 01/25/22 16:03 01/25/22 16:15 01/25/22 16:18 Temperature Pulse Rate 128 H 137 H 137 H Pulse Rate [Left A pical] Respiratory Rate Blood Pressure 149/86 H 130/70 Blood Pressure [Le ft Arm] Pulse Oximetry 89 94 89 Oxygen Delivery Me thod Oxygen Flow Rate 01/25/22 16:30 01/25/22 16:32 01/25/22 16:45 Temperature Pulse Rate 100 117 H 98 Pulse Rate [Left A pical] Respiratory Rate Blood Pressure 135/92 H Blood Pressure [Le ft Arm] Pulse Oximetry 93 92 93 Oxygen Delivery Me thod Nasal Cannula Nasal Cannula Nasal Cannula Oxygen Flow Rate 2 2 2 01/25/22 16:47 01/25/22 16:48 01/25/22 17:00 Temperature Pulse Rate 92 91 90 Pulse Rate [Left A pical] Respiratory Rate Blood Pressure 150/96 H Blood Pressure [Le ft Arm] Pulse Oximetry 93 94 94 Oxygen Delivery Me thod Nasal Cannula Nasal Cannula Nasal Cannula Oxygen Flow Rate 2 2 2 01/25/22 17:02 01/25/22 17:03 01/25/22 17:15 Temperature Pulse Rate 98 101 H 98 Pulse Rate [Left A pical] Respiratory Rate Blood Pressure 141/117 H Blood Pressure [Le ft Arm] Pulse Oximetry 93 94 97 Oxygen Delivery Me thod Nasal Cannula Nasal Cannula Nasal Cannula Oxygen Flow Rate 2 2 2 01/25/22 17:17 01/25/22 17:30 01/25/22 17:33 Temperature Pulse Rate 85 100 94 Pulse Rate [Left A pical] Respiratory Rate Blood Pressure 113/87 115/94 H Blood Pressure [Le ft Arm] Pulse Oximetry 94 94 95 Oxygen Delivery Me thod Nasal Cannula Nasal Cannula Nasal Cannula Oxygen Flow Rate 2 2 2 01/25/22 17:34 01/25/22 17:45 01/25/22 17:48 Temperature Pulse Rate 109 H 104 H 109 H Pulse Rate [Left A pical] Respiratory Rate Blood Pressure 162/108 H Blood Pressure [Le ft Arm] Pulse Oximetry 94 96 96 Oxygen Delivery Me thod Nasal Cannula Nasal Cannula Nasal Cannula Oxygen Flow Rate 2 2 2 01/25/22 18:00 01/25/22 18:03 01/25/22 18:04 Temperature Pulse Rate 95 88 100 Pulse Rate [Left A pical] Respiratory Rate Blood Pressure 157/112 H Blood Pressure [Le ft Arm] Pulse Oximetry 94 93 93 Oxygen Delivery Me thod Oxygen Flow Rate 01/25/22 18:15 01/25/22 18:56 01/25/22 19:00 Temperature 98.6 F 98.6 F Pulse Rate 92 Pulse Rate [Left A pical] 83 77 Respiratory Rate 18 16 Blood Pressure Blood Pressure [Le ft Arm] 126/84 127/82 Pulse Oximetry 94 94 94 Oxygen Delivery Me thod Room Air Room Air Oxygen Flow Rate 01/25/22 19:42 01/25/22 18:45 01/25/22 19:15 Temperature Pulse Rate 71 Pulse Rate [Left A pical] 77 84 Respiratory Rate Blood Pressure Blood Pressure [Le ft Arm] 119/76 139/91 H Pulse Oximetry Oxygen Delivery Me thod Oxygen Flow Rate 01/25/22 19:30 01/25/22 19:43 01/25/22 20:02 Temperature 98.9 F Pulse Rate Pulse Rate [Left A pical] 86 86 Respiratory Rate 20 Blood Pressure Blood Pressure [Le ft Arm] 139/85 130/96 H Pulse Oximetry 92 97 Oxygen Delivery Me thod Room Air Oxygen Flow Rate 01/25/22 20:00 01/25/22 20:24 01/25/22 20:54 Temperature 98.9 F 98.9 F Pulse Rate Pulse Rate [Left A pical] 91 82 Respiratory Rate 20 20 20 Blood Pressure Blood Pressure [Le ft Arm] 130/96 H 123/95 H Pulse Oximetry 95 97 94 Oxygen Delivery Me thod Room Air Room Air Room Air Oxygen Flow Rate 2 2 01/25/22 21:23 01/25/22 22:37 01/25/22 22:39 Temperature 98.9 F 98.6 F Pulse Rate Pulse Rate [Left A pical] 82 92 92 Respiratory Rate 20 18 18 Blood Pressure Blood Pressure [Le ft Arm] 123/95 H 118/50 L Pulse Oximetry 94 96 Oxygen Delivery Me thod Room Air Nasal Cannula Oxygen Flow Rate 2 2 01/25/22 22:43 01/25/22 22:44 01/25/22 23:11 Temperature Pulse Rate 82 Pulse Rate [Left A pical] 92 Respiratory Rate 18 Blood Pressure Blood Pressure [Le ft Arm] Pulse Oximetry 96 Oxygen Delivery Me thod Oxygen Flow Rate 01/26/22 02:00 01/26/22 02:33 01/26/22 02:38 Temperature 98.6 F 98.6 F Pulse Rate Pulse Rate [Left A pical] 91 91 91 Respiratory Rate 18 18 18 Blood Pressure Blood Pressure [Le ft Arm] 142/89 H 142/89 H Pulse Oximetry 94 96 Oxygen Delivery Me thod Nasal Cannula Nasal Cannula Oxygen Flow Rate 2 2 01/26/22 05:52 01/26/22 07:19 01/26/22 07:45 Temperature 98.6 F Pulse Rate 118 H Pulse Rate [Left A pical] 97 Respiratory Rate 18 Blood Pressure Blood Pressure [Le ft Arm] 142/89 H Pulse Oximetry 96 96 Oxygen Delivery Me thod Nasal Cannula Oxygen Flow Rate 2 01/26/22 07:45 01/26/22 07:45 01/26/22 11:08 Temperature 99.2 F 98.7 F Pulse Rate Pulse Rate [Left A pical] 118 H 118 H 136 H Respiratory Rate 18 18 16 Blood Pressure Blood Pressure [Le ft Arm] 136/89 111/80 Pulse Oximetry 96 95 Oxygen Delivery Me thod Room Air Room Air Oxygen Flow Rate 01/26/22 13:43 Temperature 98.5 F Pulse Rate Pulse Rate [Left A pical] 123 H Respiratory Rate 18 Blood Pressure Blood Pressure [Le ft Arm] 143/81 H Pulse Oximetry 95 Oxygen Delivery Me thod Room Air Oxygen Flow Rate Documenting provider has reviewed patient's vital signs: yes
[2022-01-26] MEDS: LORazepam 1 MG TABLET PO (16:50)
[2022-01-26] MEDS: LORazepam 2 MG/ML inj IVP ×4 (17:59→23:49)
[2022-01-26] MEDS: PHENobarbitaL 32.4 MG TABLET 129.6 MG PO (18:07)
--- NOTE | 2022-01-26 18:30 | PC.NURSE ---
End of shift. pt was alert x 4 this am. he was unsteady at times and more. MD came to see at 3 pm. no tremors. @ 1630 he was confused and po Ativan was given he was doing better @ 1730 per RN adn daughter Violeta in the room and md was updated. @ 1745 he was more confused, md came to see. he does not know place, car is a w/c and he is hearing things. 2mg IV Ativan given and 2100 dose of phenobarbital was given early per md. Tele showing Afib. pt Metoprol given for HR control. NO pain. No Sign of Seizure. . Up in chair this morning drinking coffee and eating. Up SBA with Walker and GB. No Headache. he is getting worse with withdrawals since 1500. md and charge nurse is aware
--- NOTE | 2022-01-26 19:43 | PC.NURSE ---
Pt converted to NSR @ 1930 01/26. EKG verified. Dr mueller
[2022-01-26] MEDS: 0.9 % SODIUM CHLORIDE 1000 ml 1,000 ML 50 ML IV (20:43)
[2022-01-26 22:04] LABS: Hepatitis B Core Antibody, IgM Negative (Negative); Hepatitis B Surface Antigen Negative (Negative); Hepatitis C Antibody by CIA Negative (Negative)
[2022-01-27] VITALS (21 sets, daily range): BP systolic 123–163; BP diastolic 84–115; PULSE 80–95; RESP 16–20; TEMP 36.4–37.2; O2SAT 93–99
--- NOTE | 2022-01-27 00:15 | PC.NURSE ---
Pt continued to eat the tele pads and wires. Dr GORMAN'iván FARRELL of Tele for choking concerns. Wire clip from tele was found in Pt's mouth. Pt belligerent when RN tried to remove.
--- NOTE | 2022-01-27 00:29 | PC.NURSE ---
Pt remains belligerent with RN while performing cares. Pt has tried to strike RN several times. Charge notified.
[2022-01-27] MEDS: LORazepam 2 MG/ML inj IVP ×6 (00:47→22:47)
[2022-01-27] MEDS: 0.9 % SODIUM CHLORIDE 1000 ml 1,000 ML 50 ML IV ×2 (02:35→19:55)
[2022-01-27 07:08] LABS: Basophils Absolute Auto 0.01 K/uL (0.00-0.30); Basophils Percent Auto 0.2 % (0.0-3.0); Eosinophils Absolute Auto 0.09 K/uL (0.00-0.50); Hematocrit 39.9 % (37.0-53.0); Hemoglobin* 13.1 gm/dL (13.5-17.5); Immature Granulocytes Abs Auto 0.01 K/uL (0.00-0.30); Lymphocytes Absolute Auto 0.95 K/uL (0.90-2.90); Lymphocytes Percent Auto 20.9 % (20-44); Mean Corpuscular HGB Conc 33 gm/dL (32-36); Mean Corpuscular Hemoglobin 32 pg (26-34); Mean Corpuscular Volume 96 fL (80-100); Monocytes Percent Auto 6.4 % (0.0-11.0); Neutrophils Percent Auto 70.3 % (42.0-72.0); Platelet Count* 61 K/uL (140-440); RDW Coefficient of Variation % 13.3 % (11.5-15.5); Red Blood Count 4.16 m/uL (4.30-5.90); White Blood Count* 4.55 K/uL (4.50-11.00)
[2022-01-27 07:10] LABS: Slide Review Reflex No
[2022-01-27 07:14] LABS: Albumin* 3.6 g/dL (3.3-5.0); Chloride* 100 mmol/L (96-114)
[2022-01-27 07:15] LABS: Potassium* 3.4 mmol/L (3.6-5.1); Sodium* 133 mmol/L (135-149)
[2022-01-27 07:17] LABS: Aspartate Amino Transferase* 277 U/L (12-35); Bilirubin Total* 2.4 mg/dL (0.1-1.5); Blood Urea Nitrogen* 10 mg/dL (7-30); Carbon Dioxide* 24 mmol/L (20-32); Creatinine* 0.6 mg/dL (0.5-1.5); Est. Creatinine Clearance* 159.06; Estimated Glomerular Filt Rate 115 ml/min; Total Protein* 6.5 g/dL (6.0-8.3)
[2022-01-27 07:18] LABS: Alanine Aminotransferase* 104 U/L (4-50); Alkaline Phosphatase* 102 U/L (40-150); Calcium* 8.1 mg/dL (8.4-10.6); Glucose* 75 mg/dL (60-115)
[2022-01-27] MEDS: POTASSIUM CHLORIDE 10 MEQ CAPSULE ER 40 MEQ PO (09:54)
[2022-01-27] MEDS: METOPROLOL SUCCINATE (XL) 100 MG TAB PO (09:59)
[2022-01-27] MEDS: APIXABAN 5 MG TABLET PO ×2 (10:00→20:28)
[2022-01-27] MEDS: SERTRALINE 100 MG TABLET PO (10:00)
[2022-01-27] MEDS: ATORVASTATIN 10 MG TABLET 20 MG PO (10:00)
[2022-01-27] MEDS: THIAMINE 100 MG TABLET PO (10:01)
[2022-01-27] MEDS: PHENobarbitaL 32.4 MG TABLET 129.6 MG PO ×2 (10:01→20:28)
[2022-01-27] MEDS: lisinopriL 20 MG TABLET PO (10:50)
--- NOTE | 2022-01-27 11:22 | PM.IMPN1 ---
Progress Note: A&P Assessment and plan (1) Alcohol withdrawal seizure: Problem details: Loaded with phenobarbital. No evidence of seizure recurrence. Now having alcohol withdrawal. Status: Acute (2) Atrial fibrillation with RVR: Problem details: Suspect alcohol related heart disease as the cause. Unknown duration but possibly up to a month. Managing with oral metoprolol. Anticoagulation. Echocardiogram unremarkable. Outpatient sleep study. Outpatient alcohol treatment. Converted to sinus rhythm overnight Status: Acute (3) Morbid obesity: Status: Acute (4) Fatty liver due to alcoholism: Problem details: Outpatient alcohol treatment. Labs consistent with alcohol cause. AST markedly elevated compared ALT. Elevated bilirubin. Low platelets. Status: Acute Plan Continue in hospital for management of alcohol withdrawal. Time Spent With Patient Total time spent: Total time spent today is 40 minutes, 30 minutes in coordination of care and discussing with family and other providers management of alcohol withdrawal Subjective Date Seen: 01/27/22 Interval history: 56-year-old male seen in followup of alcohol withdrawal seizure, AFib with RVR and alcohol withdrawal syndrome. Overnight patient went into sinus rhythm. He also developed worsening alcohol withdrawal symptoms. Was quite confused. This morning he is not oriented to his circumstances. He is not agitated. Exam Narrative: Exam Narrative: He is alert but not oriented. Head is normal. Eyes normal. Respirations are clear to auscultation. Cardiovascular: S1, S2, regular rate and rhythm. Abdomen: Bowel sounds active. Abdomen is soft without tenderness or mass. Extremities with trace edema. Const: Vital Signs, click to edit/add: Vital Signs - 24 hr 01/26/22 13:43 01/26/22 16:15 01/26/22 16:15 Temperature 98.5 F Pulse Rate 128 H Pulse Rate [Left A pical] 123 H 128 H Respiratory Rate 18 18 Blood Pressure [Le ft Arm] 143/81 H Pulse Oximetry 95 Oxygen Delivery Me thod Room Air Oxygen Flow Rate 01/26/22 15:00 01/26/22 15:00 01/26/22 15:00 Temperature 98.3 F 98.3 F Pulse Rate Pulse Rate [Left A pical] 120 H 128 H Respiratory Rate 18 18 Blood Pressure [Le ft Arm] 110/81 110/81 Pulse Oximetry 95 96 96 Oxygen Delivery Me thod Room Air Room Air Oxygen Flow Rate 2 01/26/22 16:47 01/26/22 18:58 01/26/22 21:13 Temperature 98.7 F 98.4 F 98.4 F Pulse Rate Pulse Rate [Left A pical] 116 H 90 90 Respiratory Rate 20 24 24 Blood Pressure [Le ft Arm] 153/95 H 129/85 129/85 Pulse Oximetry 96 94 94 Oxygen Delivery Me thod Room Air Room Air Room Air Oxygen Flow Rate 2 01/26/22 22:55 01/26/22 22:55 01/26/22 23:00 Temperature 97.8 F Pulse Rate 83 Pulse Rate [Left A pical] 80 Respiratory Rate 18 Blood Pressure [Le ft Arm] 126/84 Pulse Oximetry 94 93 Oxygen Delivery Me thod Room Air Oxygen Flow Rate 01/26/22 23:43 01/27/22 00:48 01/27/22 02:43 Temperature 97.8 F 97.5 F L Pulse Rate Pulse Rate [Left A pical] 80 80 91 Respiratory Rate 18 18 18 Blood Pressure [Le ft Arm] 126/84 160/90 H Pulse Oximetry 93 93 Oxygen Delivery Me thod Room Air Nasal Cannula Oxygen Flow Rate 1 01/27/22 06:13 01/27/22 07:00 01/27/22 07:00 Temperature 97.5 F L 99.0 F Pulse Rate Pulse Rate [Left A pical] 91 95 Respiratory Rate 18 20 Blood Pressure [Le ft Arm] 160/90 H 163/115 H Pulse Oximetry 93 97 96 Oxygen Delivery Me thod Nasal Cannula Room Air Oxygen Flow Rate 1 01/27/22 10:00 Temperature 99.0 F Pulse Rate Pulse Rate [Left A pical] 95 Respiratory Rate 20 Blood Pressure [Le ft Arm] 163/115 H Pulse Oximetry 96 Oxygen Delivery Me thod Room Air Oxygen Flow Rate Documenting provider has reviewed patient's vital signs: yes Labs Labs: Laboratory Results - last 24 hr 01/25/22 01/27/22 01/27/22 11:42 06:20 06:20 WBC 4.55 RBC 4.16 L Hgb 13.1 L Hct 39.9 MCV 96 MCH 32 MCHC 33 RDW Coeff of Migdalia 13.3 Plt Count 61 L Neut % (Auto) 70.3 Lymph % (Auto) 20.9 Williamson % (Auto) 6.4 Eos % (Auto) 2.0 Baso % (Auto) 0.2 Neut # (Auto) 3.20 Lymph # (Auto) 0.95 Williamson # (Auto) 0.30 Eos # (Auto) 0.09 Baso # (Auto) 0.01 Abs Immat Gran (auto) 0.01 Sodium 133 L Potassium 3.4 L Chloride 100 Carbon Dioxide 24 BUN 10 Creatinine 0.6 Estimated Creat Clear 159.06 Estimated GFR 115 Glucose 75 Calcium 8.1 L Magnesium 2.0 Total Bilirubin 2.4 H AST 277 H ALT 104 H Alkaline Phosphatase 102 Total Protein 6.5 Albumin 3.6 Hepatitis A Total & IgM Negative Hep Bs Antigen Negative Hep B Core IgM Ab Negative Hep C Ab (VILLA) Negative Hep C Ab Index (VILLA) <0.02 Hep C Interp (Acute) See Note
--- NOTE | 2022-01-27 19:14 | PC.NURSE ---
End of Shift: Patient alert to self and date. Afebrile. Denies pain. O2 sats greater than 90% on room air. Tolerating regular diet with no nausea and able to feed self with set up assistance. Used urinal in bed. Frequent turn and reposition. PRN Ativan given x2 for CIWA 12 and 13 for increased activity and anxiety. See frequent CIWA charting. Heart rate in the 80s-90s.
[2022-01-28] VITALS (16 sets, daily range): BP systolic 120–171; BP diastolic 82–115; PULSE 79–94; RESP 18–22; TEMP 36.2–36.8; O2SAT 93–97
[2022-01-28] MEDS: LORazepam 2 MG/ML inj IVP ×7 (01:10→23:46)
--- NOTE | 2022-01-28 04:18 | PC.NURSE ---
Pt is very slow to respond. Disoriented to place and time and situation. Very restless overnight, trying to roll out of bed. Unable to sit at bedside. Resistive to cares. HR remained regular.
[2022-01-28 06:16] LABS: Basophils Absolute Auto 0.02 K/uL (0.00-0.30); Basophils Percent Auto 0.4 % (0.0-3.0); Eosinophils Percent Auto 1.9 % (0.0-7.0); Hematocrit 40.4 % (37.0-53.0); Hemoglobin* 13.2 gm/dL (13.5-17.5); Immature Granulocytes Abs Auto 0.04 K/uL (0.00-0.30); Lymphocytes Percent Auto 14.3 % (20-44); Mean Corpuscular HGB Conc 33 gm/dL (32-36); Mean Corpuscular Hemoglobin 31 pg (26-34); Mean Corpuscular Volume 96 fL (80-100); Monocytes Percent Auto 9.7 % (0.0-11.0); Platelet Count* 80 K/uL (140-440); RDW Coefficient of Variation % 13.2 % (11.5-15.5); Red Blood Count 4.21 m/uL (4.30-5.90); Slide Review Reflex No; White Blood Count* 5.38 K/uL (4.50-11.00)
[2022-01-28 06:26] LABS: Chloride* 97 mmol/L (96-114)
[2022-01-28 06:27] LABS: Potassium* 3.6 mmol/L (3.6-5.1); Sodium* 133 mmol/L (135-149)
[2022-01-28 06:29] LABS: Creatinine* 0.5 mg/dL (0.5-1.5); Est. Creatinine Clearance* 190.87; Estimated Glomerular Filt Rate 121 ml/min
[2022-01-28 06:30] LABS: Blood Urea Nitrogen* 10 mg/dL (7-30); Calcium* 8.3 mg/dL (8.4-10.6); Carbon Dioxide* 27 mmol/L (20-32); Glucose* 85 mg/dL (60-115); Magnesium* 1.6 mg/dL (1.5-2.6)
[2022-01-28] MEDS: APIXABAN 5 MG TABLET PO (10:30)
[2022-01-28] MEDS: SERTRALINE 100 MG TABLET PO (10:31)
[2022-01-28] MEDS: SENNOSIDES 1 TAB TABLET 2 TAB PO ×2 (10:31→21:15)
[2022-01-28] MEDS: PHENobarbitaL 32.4 MG TABLET 129.6 MG PO ×2 (10:31→21:15)
[2022-01-28] MEDS: lisinopriL 20 MG TABLET PO (10:31)
[2022-01-28] MEDS: ATORVASTATIN 10 MG TABLET 20 MG PO (10:31)
[2022-01-28] MEDS: METOPROLOL SUCCINATE (XL) 100 MG TAB PO (10:32)
--- NOTE | 2022-01-28 11:21 | P.IMPN_ITS ---
Progress Note: A&P Assessment and plan (1) Alcohol withdrawal: Problem details: Still significant confusion and agitation at night. Continue p.r.n. sedation for safety Status: Acute (2) Alcohol withdrawal seizure: Problem details: Loaded with phenobarbital. No evidence of seizure recurrence. Now having alcohol withdrawal. Status: Acute (3) Atrial fibrillation with RVR: Problem details: Resolved. Suspect alcohol related heart disease as the cause. Unknown duration but possibly up to a month. Managing with oral metoprolol. Anticoagulation. Echocardiogram unremarkable. Outpatient sleep study. Outpatient alcohol treatment. Converted to sinus rhythm overnight Status: Acute (4) Morbid obesity: Problem details: Likely has fairly severe sleep apnea. Status: Acute (5) Fatty liver due to alcoholism: Problem details: Outpatient alcohol treatment. Labs consistent with alcohol cause. AST markedly elevated compared ALT. Elevated bilirubin. Low platelets. Status: Acute (6) Impaired mobility: Problem details: Due to a combination of chronic knee problems, sedentary lifestyle (in a wheelchair at home) and now alcohol withdrawal. PT and OT to evaluate and treat Status: Acute (7) Obstructive sleep apnea: Problem details: Clinical diagnosis. Outpatient evaluation once he has recovered from this hospitalization Status: Acute Plan Continue in hospital for management of alcohol withdrawal. Time Spent With Patient Total time spent: Total time spent today is 45 minutes, 35 minutes in coordination of care discussing with patient's daughter and other providers ongoing evaluation management of alcohol withdrawal. Subjective Date Seen: 01/28/22 Interval history: 56-year-old male seen in followup of alcohol there all seizure and alcohol withdrawal. Patient did fairly well yesterday with some confusion but developed quite a bit of agitation during the night. He was trying to get up out of bed and was very unsteady. He received quite a bit of Ativan overnight. This morning he is sedated but arouses to voice. He is not oriented. Exam Narrative: Exam Narrative: He is sleepy but arouses to voice. Not oriented to circumstances. I observed him to be drinking some fluid offered by his daughter. Not agitated or tremulous. Earlier was snoring loudly. Now respirations are unlabored. No wheezing rales or rhonchi. Cardiovascular: S1, S2, regular rate and rhythm. Abdomen is soft without tenderness. Extremities without edema. He moves all 4 extremities well. No tremulousness. Good peripheral pulses. Const: Vital Signs, click to edit/add: Vital Signs - 24 hr 01/27/22 12:41 01/27/22 14:00 01/27/22 15:00 Temperature 98.8 F Pulse Rate [Left A pical] 93 82 88 Respiratory Rate 18 18 18 Blood Pressure [Le ft Arm] 141/100 H 123/87 Pulse Oximetry 93 99 96 Oxygen Delivery Me thod Room Air Room Air Room Air Oxygen Flow Rate 01/27/22 15:00 01/27/22 15:00 01/27/22 16:00 Temperature 98.8 F Pulse Rate [Left A pical] 88 85 Respiratory Rate 18 18 Blood Pressure [Le ft Arm] 123/87 Pulse Oximetry 96 96 95 Oxygen Delivery Me thod Room Air Room Air Oxygen Flow Rate 01/27/22 16:00 01/27/22 17:00 01/27/22 18:00 Temperature Pulse Rate [Left A pical] 85 83 86 Respiratory Rate 18 18 18 Blood Pressure [Le ft Arm] Pulse Oximetry 95 97 Oxygen Delivery Me thod Room Air Room Air Oxygen Flow Rate 01/27/22 19:14 01/27/22 19:15 01/27/22 21:05 Temperature 97.5 F L 97.5 F L 97.5 F L Pulse Rate [Left A pical] 87 87 87 Respiratory Rate 18 18 18 Blood Pressure [Le ft Arm] 144/93 H 144/93 H 144/93 H Pulse Oximetry 97 97 97 Oxygen Delivery Me thod Room Air Room Air Room Air Oxygen Flow Rate 1 1 01/27/22 22:02 01/27/22 22:05 01/27/22 22:10 Temperature 97.5 F L 97.5 F L Pulse Rate [Left A pical] 87 87 Respiratory Rate 18 18 Blood Pressure [Le ft Arm] 161/96 H 161/96 H Pulse Oximetry 97 97 97 Oxygen Delivery Me thod Room Air Room Air Oxygen Flow Rate 1 1 01/27/22 22:48 01/27/22 23:53 01/27/22 23:53 Temperature 97.5 F L 97.5 F L Pulse Rate [Left A pical] 87 83 83 Respiratory Rate 18 18 18 Blood Pressure [Le ft Arm] 161/96 H 161/96 H Pulse Oximetry 97 94 Oxygen Delivery Me thod Room Air Room Air Oxygen Flow Rate 1 0 01/28/22 00:59 01/28/22 01:35 01/28/22 02:53 Temperature 97.5 F L 97.5 F L 97.5 F L Pulse Rate [Left A pical] 85 85 85 Respiratory Rate 18 18 18 Blood Pressure [Le ft Arm] 161/96 H 161/96 H 161/91 H Pulse Oximetry 96 96 97 Oxygen Delivery Me thod Room Air Room Air Room Air Oxygen Flow Rate 0 0 01/28/22 02:54 01/28/22 04:40 01/28/22 07:46 Temperature 97.5 F L 97.5 F L 98.1 F Pulse Rate [Left A pical] 85 89 90 Respiratory Rate 18 18 22 Blood Pressure [Le ft Arm] 161/91 H 161/91 H 161/101 H Pulse Oximetry 97 95 96 Oxygen Delivery Me thod Room Air Room Air Oxygen Flow Rate 0 0 01/28/22 09:50 01/28/22 09:00 01/28/22 11:17 Temperature 98.1 F 98.2 F Pulse Rate [Left A pical] 90 94 Respiratory Rate 22 20 Blood Pressure [Le ft Arm] 161/101 H 139/91 H Pulse Oximetry 94 96 95 Oxygen Delivery Me thod Room Air Room Air Oxygen Flow Rate Documenting provider has reviewed patient's vital signs: yes Labs Labs: Laboratory Results - last 24 hr 01/28/22 01/28/22 05:58 05:58 WBC 5.38 RBC 4.21 L Hgb 13.2 L Hct 40.4 MCV 96 MCH 31 MCHC 33 RDW Coeff of Migdalia 13.2 Plt Count 80 L Neut % (Auto) 73.0 H Lymph % (Auto) 14.3 L [place] % (Auto) 9.7 Eos % (Auto) 1.9 Baso % (Auto) 0.4 Neut # (Auto) 3.90 Lymph # (Auto) 0.80 L [place] # (Auto) 0.50 Eos # (Auto) 0.10 Baso # (Auto) 0.02 Abs Immat Gran (auto) 0.04 Sodium 133 L Potassium 3.6 Chloride 97 Carbon Dioxide 27 BUN 10 Creatinine 0.5 Estimated Creat Clear 190.87 Estimated GFR 121 Glucose 85 Calcium 8.3 L Magnesium 1.6
[2022-01-28] MEDS: MULTIVITAMIN/MINERALS 1 TABLET 1 TAB PO (11:52)
[2022-01-28] MEDS: 0.9 % SODIUM CHLORIDE 1000 ml 1,000 ML 50 ML IV (14:17)
--- NOTE | 2022-01-28 17:11 | PC.NURSE ---
Addendum entered by Yvette Umanzor RN 01/28/22 17:58: Patient attempted to swing at writer technical publications while trying to change IV tubing, son in room and was able to stop the patient and calm him down. CIWA done and PRN ativan 2mg given. Patient now having dinner. Original Note: Shift Summary: Patient passive with cares, awake on and off throughout day. No aggression towards staff. This morning at start of shift had grabbed the rails on bed and was shaking them, has not had aggression towards property since. Daughter has been in room throughout day and has been supportive. Tolerating regular diet well. Denies pain or nausea. Bed change done this afternoon and new gown placed.
[2022-01-29] VITALS (8 sets, daily range): BP systolic 141–172; BP diastolic 90–109; PULSE 76–94; RESP 12–20; TEMP 35.8–36.8; O2SAT 91–97
[2022-01-29] MEDS: LORazepam 2 MG/ML inj IVP (02:02)
--- NOTE | 2022-01-29 06:12 | PC.NURSE ---
Shift note : Pt agitated w/ confusion first half of shift but has started to clear nicely, asking for needs/wants, able to be easily redirected, no need for Ativan since 199 as follow-up CIWA's only 3.
[2022-01-29 07:02] LABS: HCO3 VBG 31 mmol/L (21-28); PCO2 VBG 48 mmHG (40-50); PO2 VBG 43.1 mmHG (25-47); pH VBG 7.416 (7.32-7.43)
[2022-01-29 07:05] LABS: Basophils Absolute Auto 0.02 K/uL (0.00-0.30); Basophils Percent Auto 0.4 % (0.0-3.0); Eosinophils Percent Auto 2.2 % (0.0-7.0); Hematocrit 42.2 % (37.0-53.0); Hemoglobin* 13.9 gm/dL (13.5-17.5); Immature Granulocytes Abs Auto 0.03 K/uL (0.00-0.30); Lymphocytes Percent Auto 17.7 % (20-44); Mean Corpuscular HGB Conc 33 gm/dL (32-36); Mean Corpuscular Hemoglobin 31 pg (26-34); Mean Corpuscular Volume 95 fL (80-100); Monocytes Percent Auto 14.2 % (0.0-11.0); Neutrophils Absolute Auto 2.96 K/uL (1.7-7.0); Neutrophils Percent Auto 64.8 % (42.0-72.0); Platelet Count* 114 K/uL (140-440); RDW Coefficient of Variation % 13.2 % (11.5-15.5); Red Blood Count 4.45 m/uL (4.30-5.90); White Blood Count* 4.57 K/uL (4.50-11.00)
[2022-01-29 07:10] LABS: Slide Review Reflex No
[2022-01-29 08:02] LABS: Albumin* 3.6 g/dL (3.3-5.0); Chloride* 97 mmol/L (96-114); Potassium* 3.3 mmol/L (3.6-5.1); Sodium* 135 mmol/L (135-149)
[2022-01-29 08:04] LABS: Aspartate Amino Transferase* 131 U/L (12-35); Bilirubin Total* 1.6 mg/dL (0.1-1.5); Carbon Dioxide* 28 mmol/L (20-32); Creatinine* 0.6 mg/dL (0.5-1.5); Est. Creatinine Clearance* 159.06; Estimated Glomerular Filt Rate 115 ml/min; Total Protein* 6.6 g/dL (6.0-8.3)
[2022-01-29 08:05] LABS: Alanine Aminotransferase* 70 U/L (4-50); Alkaline Phosphatase* 116 U/L (40-150); Blood Urea Nitrogen* 9 mg/dL (7-30); Calcium* 8.7 mg/dL (8.4-10.6); Glucose* 85 mg/dL (60-115)
--- NOTE | 2022-01-29 08:19 | PC.SOCIAL ---
Pt.'s [facility] clinical case manager called at [phone] and can assist with discharge needs and wants an update when pt. is ready for discharge.
[2022-01-29] MEDS: METOPROLOL SUCCINATE (XL) 100 MG TAB PO (10:15)
[2022-01-29] MEDS: PHENobarbitaL 32.4 MG TABLET 129.6 MG PO (10:15)
[2022-01-29] MEDS: ATORVASTATIN 10 MG TABLET 20 MG PO (10:15)
[2022-01-29] MEDS: SENNOSIDES 1 TAB TABLET 2 TAB PO (10:15)
[2022-01-29] MEDS: lisinopriL 20 MG TABLET PO (10:16)
[2022-01-29] MEDS: MULTIVITAMIN/MINERALS 1 TABLET 1 TAB PO (10:16)
[2022-01-29] MEDS: SERTRALINE 100 MG TABLET PO (10:16)
--- NOTE | 2022-01-29 11:38 | PM.IMPN1 ---
Progress Note: A&P Assessment and plan (1) Alcohol withdrawal: Problem details: Improving. Discontinue phenobarb but continue p.r.n. lorazepam Status: Acute (2) Alcohol withdrawal seizure: Problem details: Loaded with phenobarbital. No evidence of seizure recurrence. Now having alcohol withdrawal. Status: Acute (3) Atrial fibrillation with RVR: Problem details: Resolved. Suspect alcohol related heart disease as the cause. Unknown duration but possibly up to a month. Managing with oral metoprolol. Anticoagulation discontinued due to prominent bruising on his left chest. Echocardiogram unremarkable. Outpatient sleep study. Outpatient alcohol treatment. Converted to sinus rhythm. Status: Acute (4) Morbid obesity: Problem details: Likely has fairly severe sleep apnea. Status: Acute (5) Fatty liver due to alcoholism: Problem details: Outpatient alcohol treatment. Labs consistent with alcohol cause. AST markedly elevated compared ALT. Elevated bilirubin. Low platelets. Status: Acute (6) Impaired mobility: Problem details: Due to a combination of chronic knee problems, sedentary lifestyle (in a wheelchair at home) and now alcohol withdrawal. PT and OT to evaluate and treat. Determine whether he is going to be able to ambulate well enough to live independently Status: Acute (7) Obstructive sleep apnea: Problem details: Clinical diagnosis. Outpatient evaluation once he has recovered from this hospitalization Status: Acute Plan Continue in hospital pending ongoing improvement in withdrawal symptoms and successful ability to ambulate with a walker for safety. Time Spent With Patient Total time spent: Total time spent is 35 minutes, 20 minutes in coordination of care and discussing with his daughter ongoing evaluation management of alcohol complications and disability. Subjective Date Seen: 01/29/22 Interval history: 56-year-old male seen in followup of alcohol withdrawal seizure, alcohol withdrawal and paroxysm of atrial fibrillation with rapid ventricular response. Patient has not had any further episodes of atrial fibrillation. He had a better night with alcohol withdrawal. Still required some p.r.n. lorazepam but otherwise more able to be cooperative with the staff. He reports no new concerns today. Exam Narrative: Exam Narrative: He is sitting up in bed he is seen with his daughter today. He appears mildly sedated. He answers questions appropriately. He is oriented to place but unsure of his circumstances. Eyes are normal. Respirations with occasional basilar crackle otherwise clear. Cardiovascular: S1, S2, regular rate and rhythm. Abdomen is soft without tenderness or mass. Extremities without significant edema. He moves all 4 extremities well. No significant tremor. Const: Vital Signs, click to edit/add: Vital Signs - 24 hr 01/28/22 13:33 01/28/22 15:00 01/28/22 15:00 Temperature 97.6 F Pulse Rate [Left A pical] 86 88 Respiratory Rate 20 18 Blood Pressure [Le ft Arm] 120/82 Pulse Oximetry 94 96 96 Oxygen Delivery Me thod Room Air Room Air Oxygen Flow Rate 01/28/22 15:00 01/28/22 17:14 01/28/22 17:41 Temperature 97.6 F Pulse Rate [Left A pical] 88 82 87 Respiratory Rate 18 18 20 Blood Pressure [Le ft Arm] 120/82 Pulse Oximetry 96 93 95 Oxygen Delivery Me thod Room Air Room Air Room Air Oxygen Flow Rate 01/28/22 19:30 01/28/22 21:00 01/28/22 23:30 Temperature 97.2 F L 97.5 F L 97.9 F Pulse Rate [Left A pical] 79 80 81 Respiratory Rate 18 18 18 Blood Pressure [Le ft Arm] 148/104 H 171/115 H Pulse Oximetry 96 97 97 Oxygen Delivery Me thod Room Air Room Air Room Air Oxygen Flow Rate 01/28/22 23:30 01/29/22 01:55 01/28/22 23:30 Temperature 97.9 F Pulse Rate [Left A pical] 82 Respiratory Rate 18 18 Blood Pressure [Le ft Arm] 172/108 H Pulse Oximetry 97 97 Oxygen Delivery Me thod Room Air Oxygen Flow Rate 01/29/22 04:15 01/29/22 06:00 01/29/22 07:00 Temperature 97.5 F L 97.6 F Pulse Rate [Left A pical] 85 81 Respiratory Rate 18 18 Blood Pressure [Le ft Arm] 169/109 H Pulse Oximetry 97 94 91 Oxygen Delivery Me thod Room Air Room Air Oxygen Flow Rate 0 01/29/22 07:00 Temperature 96.4 F L Pulse Rate [Left A pical] 84 Respiratory Rate 12 Blood Pressure [Le ft Arm] 157/98 H Pulse Oximetry 96 Oxygen Delivery Me thod Room Air Oxygen Flow Rate 0 Documenting provider has reviewed patient's vital signs: yes Labs Labs: Laboratory Results - last 24 hr 11/01/22 11/01/22 11/01/22 06:54 06:54 06:54 WBC 4.57 RBC 4.45 Hgb 13.9 Hct 42.2 MCV 95 MCH 31 MCHC 33 RDW Coeff of [place] 13.2 Plt Count 114 L Neut % (Auto) 64.8 Lymph % (Auto) 17.7 L [place] % (Auto) 14.2 H Eos % (Auto) 2.2 Baso % (Auto) 0.4 Neut # (Auto) 2.96 Lymph # (Auto) 0.80 L [place] # (Auto) 0.60 Eos # (Auto) 0.10 Baso # (Auto) 0.02 Abs Immat Gran (auto) 0.03 VBG pH 7.416 VBG pCO2 48 VBG pO2 43.1 VBG HCO3 31 H Sodium 135 Potassium 3.3 L Chloride 97 Carbon Dioxide 28 BUN 9 Creatinine 0.6 Estimated Creat Clear 159.06 Estimated GFR 115 Glucose 85 Calcium 8.7 Total Bilirubin 1.6 H AST 131 H ALT 70 H Alkaline Phosphatase 116 Total Protein 6.6 Albumin 3.6
--- NOTE | 2022-01-29 16:11 | PC.NURSE ---
PATIENT ALERT TO SELF AND PLACE UNAWARE OF DATE AND SITUATION, UP WITH EZ-STAND DUE TO INABILITY TO STAND WITH WALKER, IS ABLE TO FOLLOW SOME DIRECTION DOES NEED A LOT OF CUEING, ABLE TO FEED SELF WITH CUEING AND SET UP, DRINKING AND EATING TOLERATING WELL WITHOUT NAUSEA, DECLINING PAIN, RESPONDS TO QUESTIONS WITH A DELAY BUT DOES ANSWER APPROPRIATELY, VERY DROWSY THIS SHIFT, AWAKE TO LIGHT SHAKE AND VOICE, DTR PRESENT AT BEDSIDE AND VERY SUPPORTIVE, DECLINING HEADACHE, INCONTINENT OF BOWEL AND BLADDER.
[2022-01-30 03:00] VITALS: BP 166/99; PULSE 84; RESP 20; TEMP 36.4; O2SAT 94
--- NOTE | 2022-01-30 06:14 | PC.NURSE ---
SHIFT NOTE : Pt remains slow to respond to questions, thinks he is able to discharge home today despite the fact he is unable to stand without help from the EZ stand. Pt incontinent of urine and stool, heavy two assist to change and reposition. No Ativan given or needed this shift, pt more awake, did eat his supper and multiple snacks overnight. Pt denies pain, SOB, CP, and N/V. Afebrile, oxygen saturations in the low to mid 90's on room air.
[2022-01-30 07:42] VITALS: BP 182/104; PULSE 86; RESP 16; TEMP 36.2; O2SAT 95
[2022-01-30 07:45] VITALS: PULSE 86; RESP 16
[2022-01-30] MEDS: SERTRALINE 100 MG TABLET PO (09:11)
[2022-01-30] MEDS: SENNOSIDES 1 TAB TABLET 4 TAB PO (09:11)
[2022-01-30] MEDS: lisinopriL 20 MG TABLET PO (09:11)
[2022-01-30] MEDS: ATORVASTATIN 10 MG TABLET 20 MG PO (09:11)
[2022-01-30] MEDS: METOPROLOL SUCCINATE (XL) 100 MG TAB PO (09:11)
[2022-01-30] MEDS: MULTIVITAMIN/MINERALS 1 TABLET 1 TAB PO (09:11)
[2022-01-30 11:34] VITALS: BP 130/87; PULSE 90; RESP 18; TEMP 36.3; O2SAT 93
--- NOTE | 2022-01-30 13:36 | P.DS_ITS ---
DS: Providers Provider Date Seen: 01/30/22 Date of admission: 01/25/22 18:26 Primary care physician: Not a Local Provider Admitting Clinician: Stoney Zuniga MD Attending Physician on discharge: Stoney Zuniga MD Date of Discharge: 01/30/22 DS: Diagnosis Discharge Diagnosis (1) Alcohol withdrawal seizure: Status: Acute Problem details: One seizure prior to admission. Treated with phenobarbital. (2) Atrial fibrillation with RVR: Status: Acute Problem details: Resolved. AFib probably caused by alcohol abuse. Converted back into sinus rhythm. He will not be discharged on anticoagulation. Revisit this issue as an outpatient. (3) Alcohol withdrawal: Status: Acute Problem details: Alcohol withdrawal started about 1 day after the seizure. Managed with lorazepam and phenobarbital. (4) Impaired mobility: Status: Acute Problem details: Patient was quite disabled prior to admission. He had knee surgery in October and has not really recovered from that. He has been primarily transferring [id number] and using wheelchair at home since then. (5) Obstructive sleep apnea: Status: Acute Problem details: Clinical diagnosis. Outpatient evaluation recommended once he has recovered from this hospitalization (6) Fatty liver due to alcoholism: Status: Acute Problem details: Outpatient alcohol treatment. Liver tests improved with abstinence during his hospital stay. Outpatient evaluation management for chronic liver disease recommended (7) Morbid obesity: Status: Acute DS: Summary Hospital Course Hospital Course: 56-year-old male was admitted through the emergency room after he had a seizure at the liquor store. At the time of admission the seizure had stopped. He received phenobarbital as this was suspected to be an alcohol withdrawal seizure. No further seizure activity. About a day after hospitalization he went into alcohol withdrawal requiring additional phenobarb and lorazepam. Withdrawal symptoms have now resolved. Also at the time of admission he was in atrial fibrillation with rapid ventricular response. He was started on anticoagulation with apixaban and rate control with metoprolol. He was given magnesium and did have a spontaneous conversion back to sinus rhythm. No recurrence of his atrial fibrillation since then. He was noted to be quite disabled with mobility. Previous knee surgery in October did not resolve his ongoing knee problem. At home he is quite disabled primarily moving bed to chair. He worked with therapy here and was able to walk with a walker well enough to be at home. Status at Discharge Functional status at discharge: uses cane/walker Overall status at discharge: patient is progressing back to baseline Time Spent with Patient Time attestation: Total time spent providing and/or coordinating discharge services: Time spent: Greater than 30 minutes Exam Narrative: Exam Narrative: He is alert and appears in no distress. Small oropharynx. Respirations are unlabored. Cardiovascular S1-S2 regular rate and rhythm. Abdomen: Bowel sounds active. Soft without tenderness. He has no tremor. Trace edema in his extremities. He is oriented to being in the hospital but has poor recall of any of the events of the last few days Const: Vital Signs, click to edit/add: Vital Signs - 24 hr 01/29/22 15:00 01/29/22 15:00 01/29/22 15:00 Temperature 97.6 F Pulse Rate [Left A pical] 85 84 Respiratory Rate 16 14 Blood Pressure [Le ft Arm] 141/90 H Pulse Oximetry 95 91 Oxygen Delivery Me thod Room Air Oxygen Flow Rate 0 01/29/22 20:30 01/29/22 23:00 01/29/22 23:00 Temperature 97.8 F Pulse Rate [Left A pical] 84 76 Respiratory Rate 20 20 Blood Pressure [Le ft Arm] 160/101 H Pulse Oximetry 94 96 Oxygen Delivery Me thod Room Air Oxygen Flow Rate 0 01/29/22 23:00 01/30/22 03:00 01/30/22 07:42 Temperature 97.8 F 97.6 F 97.2 F L Pulse Rate [Left A pical] 76 84 86 Respiratory Rate 20 20 16 Blood Pressure [Le ft Arm] 166/99 H 182/104 H Pulse Oximetry 96 94 95 Oxygen Delivery Me thod Room Air Room Air Room Air Oxygen Flow Rate 0 0 01/30/22 07:42 01/30/22 07:45 01/30/22 11:34 Temperature 97.4 F L Pulse Rate [Left A pical] 86 90 Respiratory Rate 16 18 Blood Pressure [Le ft Arm] 130/87 Pulse Oximetry 95 93 Oxygen Delivery Me thod Room Air Oxygen Flow Rate 0 Discharge Plan Discharge Disposition: Home, Self-Care Date of Admission: 01/25/22 18:26 Attending Provider on Discharge: Stoney Zuniga Primary Care Provider: Provider,Not a Local Condition: Improved Anticipated Discharge Date/Time: 01/30/22 13:16 Discharge Medications: Continued atorvastatin 20 mg tablet 20 mg PO DAILY lisinopril 20 mg tablet 20 mg PO DAILY sertraline 100 mg tablet 150 mg PO DAILY Changed metoprolol succinate 25 mg tablet extended release 24 hr 50 mg PO DAILY Qty: 60 0RF Discharge Orders: Discharge Order (Routine); Ordered 01/30/22 Ordered By: Stoney Zuniga Patient Education: A-fib (Atrial Fibrillation) (DC), Alcohol Withdrawal (DC) Additional Instructions: Do not drink alcohol. It is hard to stop drinking. Work with your family and participate in outpatient treatment to help you maintain abstinence. See your doctor next week for recheck. Talk to your doctor about evaluation for sleep apnea and further evaluation of your liver disease. Activity Level: Activity as Tolerated Discharge Diet: Regular Follow Up Appointments: Provider,Not a Local [Primary Care Provider] - (Appt made for FridayFebruary 05 at [facility] with Dr. Quiroz 10:45 ) Rowdy Schilling MD [Staff Physician] - Forms: [employer] Info Instructions
[2022-01-30 15:35] VITALS: BP 157/112; PULSE 83; RESP 18; TEMP 36.3
--- NOTE | 2022-01-30 15:38 | PC.NURSE ---
Discharge. pt has been pleasant. no pain. he is alert x3 with some forgetfulness. Pt is slow/delayed to responding to questions,. Pt was incontinent of urine this am and has used the urinal and BR since then and been continent. he is up with 1 assist and later SBA walker and GB. PT worked with him. . No Ativan needed, he is eating, drinking and voiding. Daughter was here and is loving and very supportive. went over discharge packet with pt and daughter. went over medication. appointment, instructions and education. he went over and signed personal belonging sheet. SL was d/c intact. was in to see 2 times. pt got a w/c ride to car and was helped in to car. all belongings and paperwork sent with pt.
== END 2022-01-30 14:40 | disposition home or self-care (01) | DRG 775 ==
LOC: ED 12:42 → MEDSURG 18:27
PROVIDERS: Admitting Provider Family Medicine; Emergency Provider Family Medicine; Visit Provider Family Medicine
DX: F10.239 Alcohol dependence with withdrawal, unspecified (principal); K70.0 Alcoholic fatty liver; I48.91 Unspecified atrial fibrillation; I10 Essential (primary) hypertension; G47.33 Obstructive sleep apnea (adult) (pediatric); M25.569 Pain in unspecified knee; Z74.09 Other reduced mobility; K21.9 Gastro-esophageal reflux disease without esophagitis; E66.01 Morbid (severe) obesity due to excess calories; Z68.42 Body mass index [BMI] 45.0-49.9, adult; E78.5 Hyperlipidemia, unspecified; R56.9 Unspecified convulsions; F41.9 Anxiety disorder, unspecified
CPT/HCPCS: 36415; 70450; 76705; 80048; 80053; 80074; 80076; 80143; 80179; 80306; 81001; 82077; 82803; 83605; 83735; 84443; 85025; 85610; 86140; 87086; 87631; 93005; 93308; 93321; 93325; 94761; 97116; 97162; 97530; 99285; 99291; 99292; A9153; A9270; J2060; J2560; J3475; J3490; J7030

== ENCOUNTER 2024-07-14 12:07 | Outpatient (CLI) | payer MEDICAID, SELFPAY | END 2024-07-14 12:08 | disposition home or self-care (01) | LOC: AMB 07-15 10:30 | PROVIDERS: Visit Provider Family Medicine | DX: F10.129 Alcohol abuse with intoxication, unspecified (principal) | CPT/HCPCS: A0998 ==

== ENCOUNTER 2024-12-14 14:28 | Outpatient (CLI) | payer BC, SELFPAY | END 2024-12-14 14:29 | disposition home or self-care (01) | LOC: AMB 12-15 11:00 | PROVIDERS: Visit Provider Student in an Organized Health Care Education/Training Program | DX: F10.129 Alcohol abuse with intoxication, unspecified (principal) | CPT/HCPCS: A0425; A0427 ==